=== PATIENT | male | born 1950 | race Caucasian/White ===

== ENCOUNTER 2018-03-19 10:22 | Inpatient (IN) ==
[~2018-03-19 10:22] MED LIST: Glycopyrrolate Inj 1 MG/5 ML Syringe IV.PUSH ONE; Neostigmine Inj 5 MG/5 ML Syringe IV.PUSH ONE; Phenylephrine/NS 1000 MCG/10ML Syringe IV.PUSH ONE
[2018-03-19] MEDS ORDERED: Morphine Inj 4 MG/ML Vial IV.PUSH ONE ×3 (10:38→12:35)
[2018-03-19] MEDS ORDERED: Ketorolac Inj 30 MG/ML (IVP) Vial IV.PUSH ONE (10:38)
[2018-03-19] MEDS ORDERED: Sod Chloride 0.9% Inj 1,000 ML IV.CONT SCH (10:45)
--- NOTE | 2018-03-19 10:46 | ED ---
HPI General Chief Complaint: Abdominal Pain Stated Complaint: abd pain Time Seen by Provider: 03/19/18 10:23 Source: patient Mode of arrival: EMS Limitations: no limitations History of Present Illness HPI narrative: The patient is a 67-year-old male who presents to the emergency department via EMS for nausea, vomiting, and abdominal pain. The patient was awakened at 6 AM with left-sided flank pain and left mid back pain radiating to the left lower quadrant. The patient then developed nausea and vomiting secondary to the pain. The patient denies any hematuria, dysuria, frequency, or dark colored urine. The pain is described as sharp, stabbing, starting in left flank and radiating to the left lower quadrant. The patient denies any history of nephrolithiasis or diverticulitis, does have a previous history of gastric bypass. The patient denies any fever, chills, or sweats. Symptoms are moderate to severe, there are no current alleviating factors, and there are no known exacerbating factors. MD complaint: Reports abdominal pain Onset (ago): hour(s) Pain Consistency: constant Location: Reports L flank Severity: severe Severity scale (1-10): 10 Quality: Reports stabbing and sharp Radiation: Reports LLQ Migration to: Reports LLQ Relieving factors: nothing Exacerbating factors: nothing Associated symptoms: Reports nausea and vomiting Related Data Home Medications Medication Instructions Recorded Confirmed atorvastatin 20 mg PO DAILY 03/19/18 03/19/18 liraglutide [Victoza 2-Sonido] 0.6 mg SUBCUT DAILY 03/19/18 03/19/18 metformin 1,000 mg PO BID 03/19/18 03/19/18 omeprazole-sodium bicarbonate 1 cap PO DAILY 03/19/18 03/19/18 pantoprazole 20 mg PO DAILY 03/19/18 03/19/18 Allergies Allergy/AdvReac Type Severity Reaction Status Date / Time No Known Allergies Allergy Verified 03/19/18 10:28 Review of Systems ROS: all other systems reviewed are negative [facility] Medical History Medical History Diabetes (Acute) GERD (gastroesophageal reflux disease) (Acute) Hypercholesteremia (Acute) Surgical History Surgical History H/O gastric bypass (Acute) Social History Social History Substance History: No History of Abuse Smoking Status: Former smoker How Often Do You Have a Drink Containing Alcohol: Never Recent Travel in [facility] within the Last 8 Weeks: No Recent Out of Country Travel within the Last 8 Weeks: No Immunization History Tetanus Immunization: Unsure Exam Narrative Exam Narrative: GENERAL: Awake, alert, 67-year-old male appears his stated age and appears in moderate discomfort. SKIN: Focused skin assessment warm/dry. HEAD: Atraumatic. Normocephalic. EYES: Pupils equal and round. No scleral icterus. No injection or drainage. ENT: No nasal bleeding or discharge. Mucous membranes pink and moist. NECK: Trachea midline. No JVD. CARDIOVASCULAR: Regular rate and rhythm. No murmur appreciated. RESPIRATORY: No accessory muscle use. Clear to auscultation. Breath sounds equal bilaterally. GASTROINTESTINAL: Abdomen soft, tender to palpation left lower quadrant. Back: No CVA tenderness. MUSCULOSKELETAL: No obvious deformities. No clubbing. No cyanosis. No edema. NEUROLOGICAL: Awake and alert. No obvious cranial nerve deficits. Motor grossly within normal limits. Normal speech. PSYCHIATRIC: Appropriate mood and affect; insight and judgment normal. Course Initial Documented Vital Signs Temperature 98.7 F 03/19/18 10:35 Pulse Rate 90 03/19/18 10:35 Respiratory Rate 26 H 03/19/18 10:35 Blood Pressure 131/66 03/19/18 10:35 Pulse Oximetry 97 03/19/18 10:35 Last Documented Vital Signs Temperature 99.1 F 03/19/18 15:56 Pulse Rate 124 H 03/19/18 15:44 Respiratory Rate 14 03/19/18 15:44 Blood Pressure 138/77 03/19/18 15:44 Pulse Oximetry 92 L 03/19/18 15:44 Medical Decision Making [facility] Narrative Medical decision making narrative: a third dose of morphine.IV was established , labs are drawn and sent, and the patient was placed on cardiac telemetry monitoring and continuous pulse oximetry monitoring. The patient was administered morphine, Toradol, Zofran, and IV fluids. UA was sent to lab. Noncontrast CT of the abdomen and pelvis was ordered to evaluate for nephrolithiasis versus diverticulitis. The patient's white count was mildly elevated at 13.6, lactic acid was normal at 2.0. Glucose was mildly elevated at 218. CT of the abdomen and pelvis reveals concentric thickening of the distal colon concerning for possible mass, no acute inflammation. No kidney stone noted. The patient had already received 2 doses of morphine, was reevaluated at 12:37 PM, still had mild discomfort. Therefore, the patient was administered no UA have been collected, the patient was requested to provide a UA sample for analysis. The UA reveals protein, but no evidence of infection. The patient was reevaluated after the third dose of morphine, still had some tachycardia with a heart rate of 110-115. No obvious explanation of the patient 's abdominal pain, he is tachycardic with a heart rate of 110-115, the patient CT of the abdomen and pelvis reveals narrowing of the lumen suspicious for carcinoma, this raises the possibility of possible pulmonary embolism. Therefore, CT pulmonary angiogram was ordered. CT pulmonary angiogram was negative. The patient's pulse elevated to the 120s, O2 sat was 92%. No evidence of pneumonia on CT pulmonary angiogram, UA is negative, reevaluation of the temperature was 99.1. The patient's O2 sat was 92% he was placed on O2 via nasal cannula. Blood culture, repeat lactic acid, and BNP were ordered. The patient was covered with cefepime 2 g intravenously, patient does have Sirs criteria now with elevated white count and elevated heart rate, blood cultures are pending. I discussed the patient with Dr. Barnes who agrees with admission. Repeat EKG did reveal sinus tachycardia with a heart rate of 120, Q waves noted in lead II, III, and aVF. Medical Screen Exam Complete: Yes Emergency Medical Condition: Yes Differential Diagnosis Differential Diagnosis: Differential diagnosis includes nephrolithiasis, hydronephrosis, diverticulitis, pyelonephritis, pancreatitis, perforated viscus , lower lobe pneumonia, inferior IA. Lab Data Result diagrams: 03/19/18 10:49 03/19/18 10:49 Lab Results 03/19/18 03/19/18 03/19/18 Range/Units 10:49 10:49 10:49 WBC 13.6 H (4.0-11.0) th/mm3 RBC 4.14 L (4.50-5.90) mil/mm3 Hgb 12.2 L (13.0-17.0) gm/dL Hct 37.0 L (39.0-51.0) % MCV 89.2 (80.0-100.0) fL MCH 29.5 (27.0-34.0) pg MCHC 33.1 (32.0-36.0) % RDW 15.1 (11.6-17.2) % Plt Count 201 (150-450) th/mm3 MPV 10.7 (7.0-11.0) fL Neut % (Auto) 77.4 H (16.0-70.0) % Lymph % (Auto) 13.6 (9.0-44.0) % Lewis % (Auto) 7.9 (0.0-8.0) % Eos % (Auto) 0.5 (0.0-4.0) % Baso % (Auto) 0.6 (0.0-2.0) % Neut # (Auto) 10.5 H (1.8-7.7) th/mm3 Lymph # (Auto) 1.9 (1.0-4.8) th/mm3 Lewis # (Auto) 1.1 H (0.0-0.9) th/mm3 Eos # (Auto) 0.1 (0.0-0.4) th/mm3 Baso # (Auto) 0.1 (0.0-0.2) th/mm3 WBC Differential . Differential Comment Auto diff final Sodium 141 (136-145) meq/L Potassium 4.4 (3.5-5.1) meq/L Chloride 106 (98-107) meq/L Carbon Dioxide 25.6 (21.0-32.0) meq/L Anion Gap 9 (5-15) meq/L BUN 14 (7-18) mg/dL Creatinine 0.82 (0.60-1.30) mg/dL Estimated GFR Greater than 89 (>89) mL/min Random Glucose 218 H (74-106) mg/dL Lactic Acid 2.0 (0.4-2.0) mmol/L Calcium 8.6 (8.5-10.1) mg/dL Magnesium 1.6 (1.5-2.5) mg/dL Total Bilirubin 1.0 (0.2-1.0) mg/dL AST 19 (15-37) U/L ALT 27 (12-78) U/L Alkaline Phosphatase 80 (45-117) U/L Total Creatine Kinase 54 (39-308) U/L Troponin I Less than 0.02 L (0.02-0.05) ng/mL Total Protein 7.6 (6.4-8.2) g/dL Albumin 3.3 L (3.4-5.0) g/dL Lipase 77 (73-393) U/L Urine Color (Yellw/Straw) Urine Clarity (Clear) Urine pH (5.0-8.5) Ur Specific [place] (1.002-1.035) Urine Protein (Neg-Trace) mg/dL Urine Glucose (UA) (Negative) mg/dL Urine Ketones (Negative) mg/dL Urine Occult Blood (Negative) Urine Nitrate (Negative) Urine Bilirubin (Negative) Urine Urobilinogen (Less than 2) mg/dL Ur Leukocyte Esterase (Negative) Urine WBC (0-5) /hpf Ur Squamous Epith Cells (0-5) /hpf Urine Mucus (Occasional) /lpf Micro UA Comment Ur Microscopic Review Urine Culture Comments 03/19/18 Range/Units 12:50 WBC (4.0-11.0) th/mm3 RBC (4.50-5.90) mil/mm3 Hgb (13.0-17.0) gm/dL Hct (39.0-51.0) % MCV (80.0-100.0) fL MCH (27.0-34.0) pg MCHC (32.0-36.0) % RDW (11.6-17.2) % Plt Count (150-450) th/mm3 MPV (7.0-11.0) fL Neut % (Auto) (16.0-70.0) % Lymph % (Auto) (9.0-44.0) % Lewis % (Auto) (0.0-8.0) % Eos % (Auto) (0.0-4.0) % Baso % (Auto) (0.0-2.0) % Neut # (Auto) (1.8-7.7) th/mm3 Lymph # (Auto) (1.0-4.8) th/mm3 Lewis # (Auto) (0.0-0.9) th/mm3 Eos # (Auto) (0.0-0.4) th/mm3 Baso # (Auto) (0.0-0.2) th/mm3 WBC Differential Differential Comment Sodium (136-145) meq/L Potassium (3.5-5.1) meq/L Chloride (98-107) meq/L Carbon Dioxide (21.0-32.0) meq/L Anion Gap (5-15) meq/L BUN (7-18) mg/dL Creatinine (0.60-1.30) mg/dL Estimated GFR (>89) mL/min Random Glucose (74-106) mg/dL Lactic Acid (0.4-2.0) mmol/L Calcium (8.5-10.1) mg/dL Magnesium (1.5-2.5) mg/dL Total Bilirubin (0.2-1.0) mg/dL AST (15-37) U/L ALT (12-78) U/L Alkaline Phosphatase (45-117) U/L Total Creatine Kinase (39-308) U/L Troponin I (0.02-0.05) ng/mL Total Protein (6.4-8.2) g/dL Albumin (3.4-5.0) g/dL Lipase (73-393) U/L Urine Color Yellow (Yellw/Straw) Urine Clarity Clear (Clear) Urine pH 5.0 (5.0-8.5) Ur Specific [place] 1.026 (1.002-1.035) Urine Protein Negative (Neg-Trace) mg/dL Urine Glucose (UA) 150 H (Negative) mg/dL Urine Ketones 20 (Negative) mg/dL Urine Occult Blood Negative (Negative) Urine Nitrate Negative (Negative) Urine Bilirubin Negative (Negative) Urine Urobilinogen 4 or greater (Less than 2) mg/dL Ur Leukocyte Esterase Negative (Negative) Urine WBC Less than 1 (0-5) /hpf Ur Squamous Epith Cells <1 (0-5) /hpf Urine Mucus Few H (Occasional) /lpf Micro UA Comment Culture not ind Ur Microscopic Review Not Reportable Urine Culture Comments Culture not ind Imaging Data Radiologist's impression: Abdomen/Pelvis CT 03/19/18 10:38 CONCLUSION: 1. Short segmental concentric wall thickening is identified in the distal descending colon. Colon malignancy needs to be excluded. 2. Calcified gallstones with moderate distention of the gallbladder. 3. No other significant abnormality. Chest CTA 03/19/18 13:37 CONCLUSION: 1. No evidence of acute pulmonary embolism. 2. Mild subpleural airspace disease and reticulations which may be chronic. 3. No evidence of segmental or lobar lung consolidation. ECG Data EKG Prior to Arrival: No Attestation: I personally reviewed and interpreted this ECG as follows: Interpretation: EKG reveals normal sinus rhythm with a rate 82. Q waves noted in lead III and aVF. Discharge Plan Discharge Disposition Patient Disposition: 30 Still Patient Discharge Condition Condition: Stable Discharge Details Diagnosis: SIRS (systemic inflammatory response syndrome), Intractable abdominal pain Physicians Team ED Provider: Jese Espinal Primary Care Provider: Eusebio Chacko Rxs /Orders / Referrals /Forms Prescriptions: No Action atorvastatin 20 mg Tablet 20 mg PO DAILY RF: 0 pantoprazole 20 mg Tablet,Delayed Release (Dr/Ec) 20 mg PO DAILY RF: 0 metformin 1,000 mg Tablet 1,000 mg PO BID RF: 0 omeprazole-sodium bicarbonate 40-1.1 mg-gram Capsule 1 cap PO DAILY RF: 0 liraglutide [Victoza 2-Sonido] 0.6 mg/0.1 mL (18 mg/3 mL) Pen Injector 0.6 mg SUBCUT DAILY RF: 0 Discharge Interventions Interventions: Vital Signs Last Done: 03/19/18 15:56 Status ED Status: Pending Admission
[2018-03-19 11:04] LABS: Baso # (Auto) 0.1 th/mm3 (0.0-0.2); Baso % (Auto) 0.6 % (0.0-2.0); Eos # (Auto) 0.1 th/mm3 (0.0-0.4); Eos % (Auto) 0.5 % (0.0-4.0); Hemoglobin 12.2 gm/dL (13.0-17.0); Lymph # (Auto) 1.9 th/mm3 (1.0-4.8); Lymph % (Auto) 13.6 % (9.0-44.0); Mean Corpuscular HGB Conc 33.1 % (32.0-36.0); Mean Corpuscular Hemoglobin 29.5 pg (27.0-34.0); Mean Corpuscular Volume 89.2 fL (80.0-100.0); Mean Platelet Volume 10.7 fL (7.0-11.0); Mono # (Auto) 1.1 th/mm3 (0.0-0.9); Mono % (Auto) 7.9 % (0.0-8.0); Neut # (Auto) 10.5 th/mm3 (1.8-7.7); Neut % (Auto) 77.4 % (16.0-70.0); Platelet Count 201 th/mm3 (150-450); Red Blood Count 4.14 mil/mm3 (4.50-5.90); Red Cell Distribution Width 15.1 % (11.6-17.2); White Blood Count 13.6 th/mm3 (4.0-11.0)
[2018-03-19 11:21] LABS: Alanine Aminotransferase 27 U/L (12-78); Albumin 3.3 g/dL (3.4-5.0); Anion Gap 9 meq/L (5-15); Aspartate Aminotransferase 19 U/L (15-37); Blood Urea Nitrogen 14 mg/dL (7-18); Calcium 8.6 mg/dL (8.5-10.1); Carbon Dioxide 25.6 meq/L (21.0-32.0); Chloride 106 meq/L (98-107); Glomerular Filtration Rate Greater Than 89 mL/min (>89); Glucose,Random 218 mg/dL (74-106); Lipase 77 U/L (73-393); Magnesium 1.6 mg/dL (1.5-2.5); Potassium 4.4 meq/L (3.5-5.1); Sodium 141 meq/L (136-145)
[2018-03-19 11:26] LABS: Alkaline Phosphatase 80 U/L (45-117); Total Protein 7.6 g/dL (6.4-8.2)
[2018-03-19 11:30] LABS: Creatine Kinase 54 U/L (39-308)
--- NOTE | 2018-03-19 12:14 | CT ---
EXAM DATE: 03/19/2018 12:02 PM EST AGE/SEX: 67 years / Male INDICATIONS: Left flank pain today. CLINICAL DATA: This is the patient's initial encounter. Patient reports that signs and symptoms have been present for 1 day and indicates a pain score of 8/10. MEDICAL/SURGICAL HISTORY: Diabetes. Gastroesophageal reflux disease. Gastric bypass. RADIATION DOSE: 28.83 CTDI (mGy) ; Patient body habitus COMPARISON: No prior exams available for comparison. TECHNIQUE: Multiple contiguous axial images were obtained through the abdomen. Images were obtained using multiple row detector helical technique. Using automated exposure control and adjustment of the mA and/or kV according to patient size, radiation dose was kept as low as reasonably achievable to o btain optimal diagnostic quality images. DICOM format image data is available electronically for rev iew and comparison. FINDINGS: Lower Lungs: The visualized lower lungs are clear. Liver: The liver has a homogeneous density without space-occupying lesion. There is no dilation of th e biliary tree. Calcified gallstones are identified in the dependent within the gallbladder which is moderately distended. Spleen: Homogeneous density without enlargement. Pancreas: Unremarkable without mass or calcification. Kidneys: Normal in size and shape. No evidence of mass or hydronephrosis. Adrenal Glands: Unremarkable. Aorta: The aorta and proximal iliac vessels are grossly unremarkable without aneurysmal dilation. Bowel/Mesentery: Lobulated concentric wall thickening is identified in the distal descending colon. The bowel loops are otherwise grossly unremarkable. Surgical changes following gastric bypass are not ed. There are no abnormal extragastric or extraintestinal fluid collections. There is no evidence of active inflammation. Abdominal Wall: Intact. Retroperitoneum: No evidence of adenopathy in the retrocrural, para-aortic, or deep pelvic regions. Bladder: Contours are smooth. Reproductive Organs: No abnormal masses or calcifications seen. Inguinal: The inguinal region is unremarkable without evidence of adenopathy. Bony Structures: Unremarkable. CONCLUSION: 1. Short segmental concentric wall thickening is identified in the distal descending colon. Colon ma lignancy needs to be excluded. 2. Calcified gallstones with moderate distention of the gallbladder. 3. No other significant abnormality. Electronically signed by: Jesus Rogers MD 03/19/2018 12:13 PM EST
[2018-03-19] MEDS ORDERED: Sodium Chlor 0.9% Inj 500 ML IV.SIG SCH (13:00)
[2018-03-19 13:14] LABS: Bilirubin,Urine Negative (Negative); Clarity,Urine Clear (Clear); Color,Urine Yellow (Yellw/Straw); Glucose,Urine (UA) 150 mg/dL (Negative); Leukocyte Esterase,Urine Negative (Negative); Mucus,Urine Few /lpf (Occasional); Nitrite,Urine Negative (Negative); Specific Gravity,Urine 1.026 (1.002-1.035); Squamous Epithelial Cell,Urine <1 /hpf (0-5); Urobilinogen,Urine 4 or Greater mg/dL (Less than 2)
--- NOTE | 2018-03-19 15:26 | CT ---
EXAM DATE: 03/19/2018 3:12 PM EST AGE/SEX: 67 years / Male INDICATIONS: Embolism, Left lower chest pain CLINICAL DATA: This is the patient's initial encounter. Patient reports that signs and symptoms have been present for 1 day and indicates a pain score of 7/10. MEDICAL/SURGICAL HISTORY: Gastroesophageal reflux disease. Diabetes. Gastric bypass. RADIATION DOSE: 23.09 CTDI (mGy) COMPARISON: No prior exams available for comparison. TECHNIQUE: Volumetric scanning was performed using a multi-row detector CT scanner during bolus infu lisa of 74ML ml Omnipaque 350 (iohexol) nonionic water-soluble contrast as a single exam dose. The d tracey was post processed with a variety of visualization algorithms including full volume maximum inten sity projection and sliding thin slab reformation. Using automated exposure control and adjustment of the mA and/or kV according to patient size, radiation dose was kept as low as reasonably achievable to obtain optimal diagnostic quality images. DICOM format image data is available electronically for review and comparison. FINDINGS: Pulmonary Arteries: No filling defects are seen in the pulmonary arteries out to the subsegmental ve ssels. The left and right pulmonary arteries are normal in diameter. Lung: Subpleural airspace disease and reticulation is seen in both lower lobes. There is no evidence of consolidating airspace disease. Effusion: None. Mediastinum: No evidence of mediastinal or hilar adenopathy. Other: The axilla is unremarkable. CONCLUSION: 1. No evidence of acute pulmonary embolism. 2. Mild subpleural airspace disease and reticulations which may be chronic. 3. No evidence of segmental or lobar lung consolidation. Electronically signed by: Jesus Rogers MD 03/19/2018 3:25 PM EST
--- NOTE | 2018-03-19 15:51 | P.HP ---
History of Present Illness Primary Care Physician: Eusebio Chacko MD Chief Complaint: Abdominal Pain History of Present Illness: This is a pleasant 67 y/o Male who was brought in to Emergency Department via EMS for nausea, vomiting, and abdominal pain. The patient was awakened at 6 AM with left-sided flank pain and left mid back pain radiating to the left lower quadrant. The patient then developed nausea and vomiting secondary to the pain. The patient denies any hematuria, dysuria, frequency, or dark colored urine. The pain is described as sharp, stabbing, starting in left flank and radiating to the left lower quadrant. The patient denies any history of nephrolithiasis or diverticulitis, does have a previous history of gastric bypass. The patient denies any fever, chills, or sweats. Symptoms are moderate to severe, there are no current alleviating factors, and there are no known exacerbating factors.as constant pain, 10/10 in intensity stabbing and sharp sensation, on LLQ, non radiated. he has DM II, GERD, Hyperlipidemia. Discussed with ER physician face to face Doctor Jese Espinal appreciated input and recommendations the patient has probable Sepsis has Tachycardia, Leukocytosis and probable focus in his large bowel. he continue with Pain, will cover with Cefepime and Flagyl and follow with GI specialist, following blood cultures. Review of Systems All other systems reviewed negative except as stated in HPI PMFSH - History History Provided By: Patient - Medical History Medical History: Medical History (Last Updated 03/19/18 @ 10:34 by Noy Mathis) Diabetes GERD (gastroesophageal reflux disease) Hypercholesteremia - Surgical History Surgical History: Surgical History (Last Updated 03/19/18 @ 10:34 by Noy Mathis) H/O gastric bypass - Tobacco History Smoking Status: Former smoker - Alcohol History How Often Do You Have a Drink Containing Alcohol: Never - Substance Use History Substance History: No History of Abuse - Travel History Recent Travel in the [place] Within the Last 8 Weeks: No Recent Travel Out of the Country Within the Last 8 Weeks: No - Immunization History Tetanus Immunization: Unsure Medications and Allergies Active Medications: Active Medications Sodium Chloride (Ns Inj) 1,000 mls @ 125 mls/hr IV.CONT .Q8H THOMAS Stop: 03/19/18 18:44 Last Infusion: 03/19/18 14:08 Dose: Infused Sodium Chloride (Ns Flush) 2 ml IV.FLUSH PRN PRN PRN Reason: FLUSH AFTER USING IV ACCESS Allergies Allergy/AdvReac Type Severity Reaction Status Date / Time No Known Allergies Allergy Verified 03/19/18 10:28 Home Medications Medication Instructions Recorded Confirmed Type atorvastatin 20 mg PO DAILY 03/19/18 03/19/18 History liraglutide [Victoza 2-Sonido] 0.6 mg SUBCUT DAILY 03/19/18 03/19/18 History metformin 1,000 mg PO BID 03/19/18 03/19/18 History omeprazole-sodium bicarbonate 1 cap PO DAILY 03/19/18 03/19/18 History pantoprazole 20 mg PO DAILY 03/19/18 03/19/18 History Exam Vital signs: Vital Signs 03/19/18 10:35 03/19/18 11:30 03/19/18 12:12 Temperature 98.7 F Pulse Rate 90 84 Respiratory Rate 26 H 12 12 Blood Pressure 131/66 121/61 Pulse Oximetry 97 95 03/19/18 13:00 03/19/18 13:17 Temperature Pulse Rate 108 H Respiratory Rate 22 12 Blood Pressure 159/79 H Pulse Oximetry 99 Intake & Output 03/18/18 03/19/18 03/19/18 19:59 06:59 18:59 Intake Total 1500 / 1500 Balance 1500 / 1500 Intake: IV 1500 / 1500 NS Inj 1,000 ML @ 125 mls/hr IV 1000 / 1000 .CONT .Q8H THOMAS Rx#:[id number] NS Inj 500 ML @ 1000 mls/hr IV. 500 / 500 SIG [facility]US [facility] Rx#:[id number] Narrative: GENERAL: Awake, alert, moderate distress secondary to abdominal pain. SKIN: warm/dry. HEAD: Atraumatic. Normocephalic. EYES: Pupils equal and round. No scleral icterus. No injection or drainage. ENT: No nasal bleeding or discharge. Mucous membranes pink and moist. NECK: Trachea midline. No JVD. CARDIOVASCULAR: Regular rate and rhythm. No murmur appreciated. tachycardia. RESPIRATORY: No accessory muscle use. Clear to auscultation. Breath sounds equal bilaterally. GASTROINTESTINAL: Abdomen soft, tender to palpation left lower quadrant. Back: No CVA tenderness. MUSCULOSKELETAL: No obvious deformities. No clubbing. No cyanosis. No edema. NEUROLOGICAL: Awake and alert. No obvious cranial nerve deficits. Motor grossly within normal limits. Normal speech. PSYCHIATRIC: Appropriate mood and affect; insight and judgment normal. Results - Labs CBC & Chem 7: 03/19/18 10:49 03/19/18 10:49 Labs: Laboratory Results - last 24 hr 03/19/18 03/19/18 03/19/18 10:49 10:49 10:49 WBC 13.6 H RBC 4.14 L Hgb 12.2 L Hct 37.0 L MCV 89.2 MCH 29.5 MCHC 33.1 RDW 15.1 Plt Count 201 MPV 10.7 Neut % (Auto) 77.4 H Lymph % (Auto) 13.6 [place] % (Auto) 7.9 Eos % (Auto) 0.5 Baso % (Auto) 0.6 Neut # (Auto) 10.5 H Lymph # (Auto) 1.9 [place] # (Auto) 1.1 H Eos # (Auto) 0.1 Baso # (Auto) 0.1 WBC Differential . Differential Comment Auto diff final Sodium 141 Potassium 4.4 Chloride 106 Carbon Dioxide 25.6 Anion Gap 9 BUN 14 Creatinine 0.82 Estimated GFR Greater than 89 Random Glucose 218 H Lactic Acid 2.0 Calcium 8.6 Magnesium 1.6 Total Bilirubin 1.0 AST 19 ALT 27 Alkaline Phosphatase 80 Total Creatine Kinase 54 Troponin I Less than 0.02 L Total Protein 7.6 Albumin 3.3 L Lipase 77 Urine Color Urine Clarity Urine pH Ur Specific [place] Urine Protein Urine Glucose (UA) Urine Ketones Urine Occult Blood Urine Nitrate Urine Bilirubin Urine Urobilinogen Ur Leukocyte Esterase Urine WBC Ur Squamous Epith Cells Urine Mucus Micro UA Comment Ur Microscopic Review Urine Culture Comments 03/19/18 12:50 WBC RBC Hgb Hct MCV MCH MCHC RDW Plt Count MPV Neut % (Auto) Lymph % (Auto) [place] % (Auto) Eos % (Auto) Baso % (Auto) Neut # (Auto) Lymph # (Auto) [place] # (Auto) Eos # (Auto) Baso # (Auto) WBC Differential Differential Comment Sodium Potassium Chloride Carbon Dioxide Anion Gap BUN Creatinine Estimated GFR Random Glucose Lactic Acid Calcium Magnesium Total Bilirubin AST ALT Alkaline Phosphatase Total Creatine Kinase Troponin I Total Protein Albumin Lipase Urine Color Yellow Urine Clarity Clear Urine pH 5.0 Ur Specific [place] 1.026 Urine Protein Negative Urine Glucose (UA) 150 H Urine Ketones 20 Urine Occult Blood Negative Urine Nitrate Negative Urine Bilirubin Negative Urine Urobilinogen 4 or greater Ur Leukocyte Esterase Negative Urine WBC Less than 1 Ur Squamous Epith Cells <1 Urine Mucus Few H Micro UA Comment Culture not ind Ur Microscopic Review Not Reportable Urine Culture Comments Culture not ind - Imaging Impressions Abdomen/Pelvis CT 03/19/18 10:38 CONCLUSION: 1. Short segmental concentric wall thickening is identified in the distal descending colon. Colon malignancy needs to be excluded. 2. Calcified gallstones with moderate distention of the gallbladder. 3. No other significant abnormality. Chest CTA 03/19/18 13:37 CONCLUSION: 1. No evidence of acute pulmonary embolism. 2. Mild subpleural airspace disease and reticulations which may be chronic. 3. No evidence of segmental or lobar lung consolidation. Caprini VTE Risk Assessment Caprini VTE Risk Assessment: Moderate/High Risk (score >= 2) Caprini Risk Assessment Model: Point Value = 1 Point Value = 2 Point Value = 3 Point Value = 5 Age 41-60 Minor surgery BMI > 25 kg/m2 Swollen legs Varicose veins or History of unexplained or recurrent spontaneous Oral contraceptives or hormone replacement Sepsis (< 1 month) Serious lung disease, including pneumonia (< 1 month) Abnormal pulmonary function Acute myocardial infarction Congestive heart failure (< 1 month) History of inflammatory bowel disease Medical patient at bed rest Age 61-74 Arthroscopic surgery Major open surgery (> 45 min) Laparoscopic surgery (> 45 min) Malignancy Confined to bed (> 72 hours) Immobilizing plaster cast Central venous access Age >= 75 History of VTE Family history of VTE Factor V Leiden Prothrombin [id number] Lupus anticoagulant Anticardiolipin antibodies Elevated serum homocysteine Heparin-induced thrombocytopenia Other congenital or acquired thrombophilia Stroke (< 1 month) Elective arthroplasty Hip, pelvis, or leg fracture Acute spinal cord injury (< 1 month) Prophylaxis Regimen: Total Risk Factor Score Risk Level Prophylaxis Regimen 0-1 Low Early ambulation 2 Moderate Order ONE of the following: *Sequential Compression Device (SCD) *Heparin 5000 units SQ BID 3-4 Higher Order ONE of the following medications: *Heparin 5000 units SQ TID *Enoxaparin/Lovenox 40 mg SQ daily (WT < 150 kg, CrCl > 30 mL/min) *Enoxaparin/Lovenox 30 mg SQ daily (WT < 150 kg, CrCl > 10-29 mL/min) *Enoxaparin/Lovenox 30 mg SQ BID (WT < 150 kg, CrCl > 30 mL/min) AND/OR *Sequential Compression Device (SCD) 5 or more Highest Order ONE of the following medications: *Heparin 5000 units SQ TID (Preferred with Epidurals) *Enoxaparin/Lovenox 40 mg SQ daily (WT < 150 kg, CrCl > 30 mL/min) *Enoxaparin/Lovenox 30 mg SQ daily (WT < 150 kg, CrCl > 10-29 mL/min) *Enoxaparin/Lovenox 30 mg SQ BID (WT < 150 kg, CrCl > 30 mL/min) AND *Sequential Compression Device (SCD) Assessment and Plan - Plan 1. Intractable Abdominal pain continue cardiac telemetry monitoring and continuous pulse oximetry monitoring. white count was mildly elevated at 13.6, lactic acid was normal at 2.0. Glucose was mildly elevated at 218. CT of the abdomen and pelvis reveals Short segmental concentric wall thickening is identified in the distal descending colon. Colon malignancy needs to be excluded. no acute inflammation. continue tachycardic was started on antibiotics in ER, for empiric coverage with Cefepime asked for GI specialist consult. ECG sinus tachycardia. started on Cefepime and Flagyl. 2. Hyperlipidemia continue Home medicines. 3. SIRS at this time has tachycardia and leukocytosis, 4. DM II on hold home medicines continue sliding scale for now. 5. GERD on PPIs. PPI DVT prophylaxis with Lovenox. consult GI specialist following blood cultures complete laboratory TSH, Lipid profile, hemoglobin A1C, PT and INR. PT evaluation and Composition Floor Layer consult. Code Status: Full code. Discussed Condition With: Patient and ER physician Dr. Jese Espinal, Nurse Miss Osawld in the room. Discharge Planning: Expected in two to three days.
[2018-03-19] MEDS ORDERED: Acetaminophen 325 MG Tablet PO PRN (16:02)
[2018-03-19] MEDS ORDERED: Dextrose 50% in Water 50 ML Vial IV.PUSH PRN (16:51)
[2018-03-19] MEDS ORDERED: Enoxaparin Inj 40 MG/0.4 ML Syringe SQ SCH (17:00)
[2018-03-19 18:18] LABS: Troponin I 1.72 ng/mL (0.02-0.05)
[2018-03-19 18:35] LABS: Chol/HDL Ratio 1.93 Ratio; HDL Cholesterol 53.7 mg/dL (40.0-60.0); Thyroid Stimulating Hormone 0.863 uIU/mL (0.358-3.740)
[2018-03-19] MEDS: Insulin NovoLOG Aspart Correctional Sugar Inj SQ SCH ×2 (19:55→21:24)
[2018-03-19] MEDS ORDERED: Influenza (Quadrivalent) Vaccine 0.5 ML Syringe IM ONE (21:00)
[2018-03-19] MEDS: Senna/Docusate Sodium 8.6/50 MG Tablet PO SCH (21:23)
[2018-03-19 21:42] LABS: INR 1.2 Ratio
--- NOTE | 2018-03-19 22:29 | ECG ---
Date Performed: 03/19/2018 Time Performed: 10:45:35 PTAGE: 67 years EKG: Sinus rhythm POSSIBLE INFERIOR MYOCARDIAL INFARCTION BORDERLINE ECG NO PREVIOUS TRACING DOCTOR: Bernardino Pérez Interpretating Date/Time 03/19/2018 22:27:58
[2018-03-19] MEDS ORDERED: Heparin Drip 25,000 UNIT/250 ML BAG IV.CONT PRN (22:58)
[2018-03-19 23:10] LABS: Troponin I 14.3 ng/mL (0.02-0.05)
[2018-03-19] MEDS ORDERED: Heparin 10,000 UNITS/10 ML Vial (for IV use) IV.PUSH STA (23:13)
[2018-03-19 23:27] LABS: CKMB Percent 7.2 % (0.0-4.0)
[2018-03-20] MEDS ORDERED: Morphine Inj 4 MG/ML Vial IV.PUSH ONE (00:10)
[2018-03-20] MEDS ORDERED: Sodium Chloride 0.9% 2 ML Flush PRN IV.FLUSH (00:12)
[2018-03-20 00:25] LABS: Activated Partial Thrombo Time 30.2 sec (23.4-31.7); INR 1.2 Ratio; Prothrombin Time 12.3 sec (9.8-11.6)
[2018-03-20] MEDS ORDERED: Magnesium Sulfate Inj 2 GM in Sodium Chlor 0.9% Inj 96 ML IV.SIG ONE (02:00)
[2018-03-20 04:22] LABS: Baso # (Auto) 0.1 th/mm3 (0.0-0.2); Baso % (Auto) 0.4 % (0.0-2.0); Hematocrit 38.2 % (39.0-51.0); Hemoglobin 12.6 gm/dL (13.0-17.0); Lymph # (Auto) 1.3 th/mm3 (1.0-4.8); Lymph % (Auto) 6.1 % (9.0-44.0); Mean Corpuscular HGB Conc 33.1 % (32.0-36.0); Mean Corpuscular Volume 87.6 fL (80.0-100.0); Mean Platelet Volume 10.4 fL (7.0-11.0); Mono # (Auto) 1.7 th/mm3 (0.0-0.9); Neut # (Auto) 17.9 th/mm3 (1.8-7.7); Neut % (Auto) 85.5 % (16.0-70.0); Platelet Count 186 th/mm3 (150-450); Red Blood Count 4.36 mil/mm3 (4.50-5.90); Red Cell Distribution Width 14.6 % (11.6-17.2); White Blood Count 20.9 th/mm3 (4.0-11.0)
[2018-03-20] MEDS: Insulin NovoLOG Aspart Correctional Sugar Inj SQ SCH ×5 (04:39→20:40)
[2018-03-20 04:46] LABS: Calcium 8.3 mg/dL (8.5-10.1); Carbon Dioxide 24.9 meq/L (21.0-32.0)
[2018-03-20] MEDS ORDERED: Heparin 10,000 UNITS/10 ML Vial (for IV use) IV.PUSH PRN ×2 (04:58→04:59)
[2018-03-20] MEDS: Morphine Sulfate Inj 2 MG/ML Vial IV.PUSH PRN ×5 (08:57→23:30)
[2018-03-20] MEDS: Senna/Docusate Sodium 8.6/50 MG Tablet PO SCH ×2 (09:18→20:16)
[2018-03-20] MEDS: Sodium Chloride 0.9% 2 ML Flush BID IV.FLUSH SCH ×2 (09:18→20:16)
--- NOTE | 2018-03-20 11:07 | P.CONGI ---
History of Present Illness Consult date: 03/20/18 Consult reason: Suspected colon mass Colitis Chief complaint: SIRS, Intractable pain, left flank pain History of Present Illness: Mr. Bridges is a 67-year-old male patient who presented to the emergency room on 03/19/2018 with complaints of nausea, vomiting and abdominal pain. Past medical history includes diabetes type 2, GERD and hyperlipidemia. Patient also endorses history of chronic lower back pain and arthritis. Patient states onset of pain 03/19/2018 at 0600. He reports pain as being located in the left lower quadrant of his abdomen associated with accompanied nausea and vomiting of clear emesis. Patient describes pain as sharp rated at 10 out of 10 and states it did not radiate to and any other location. Patient denied fever, and denied any aggravating or alleviating factors. Patient states last EGD/colonoscopy was done in 2006 prior to gastric bypass surgery. Patient states he has lost a total of 257 pounds since having the surgery. Patient reports that there were no abnormal findings and there was recommendation to repeat exam in 10 years. Patient denies use of alcohol or tobacco products. Patient does endorse family history of gastric cancer-he states his brother of gastric cancer at the age of 3838 years old. Patient denies any noted bleeding in stool or emesis. Patient denies any difficulty swallowing or painful swallowing. Denies any unintended weight loss. States bowel movements every 1-2 days with no reported constipation or diarrhea. CT done on admission reveals thickening of the distal descending colon and our service has been consulted to evaluate patient for suspected colon mass/colitis. <Michelle Wood - Last Filed: 03/20/18 15:22> Review of Systems All other systems reviewed negative except as stated in HPI <Michelle Wood - Last Filed: 03/20/18 15:22> PMFSH - History History Provided By: Patient - Medical History Medical History: Medical History (Last Reviewed 03/20/18 @ 08:34 by Raffaele Myers) Diabetes GERD (gastroesophageal reflux disease) Hypercholesteremia - Surgical History Surgical History: Surgical History (Last Reviewed 03/20/18 @ 08:34 by Raffaele Myers) H/O gastric bypass - Tobacco History Second Hand Smoke Exposure: Yes Tobacco Use In Past 30 Days: No Smoking Status: Former smoker - Alcohol History How Often Do You Have a Drink Containing Alcohol: Never - Substance Use History Substance History: No History of Abuse - Travel History Recent Travel in the [place] Within the Last 8 Weeks: No Recent Travel Out of the Country Within the Last 8 Weeks: No - Immunization History Tetanus Immunization: Unsure Hx Influenza Vaccine This Season: No <Michelle Wood - Last Filed: 03/20/18 15:22> - Medical History Medical History: Medical History (Last Reviewed 03/20/18 @ 08:34 by Raffaele Myers) Diabetes GERD (gastroesophageal reflux disease) Hypercholesteremia - Surgical History Surgical History: Surgical History (Last Reviewed 03/20/18 @ 08:34 by Raffaele Myers) H/O gastric bypass <Kimmie Calvo - Last Filed: 03/20/18 18:17> Medications and Allergies Active Medications: Active Medications Acetaminophen (Tylenol) 650 mg PO Q4H PRN PRN Reason: Temp > 100.4 Al Hydroxide/Mg Hydroxide (Milk Of Magnsofia Liq) 30 ml PO Q12H PRN PRN Reason: Mild Constipation Bisacodyl (Dulcolax Supp) 10 mg RECTAL DAILY PRN PRN Reason: SEVERE CONSITIPATION Dextrose (D50w Vial) 50 ml IV.PUSH UNSCH PRN PRN Reason: PER HYPOGLYCEMIA PROTOCOL Glucagon (Glucagon Inj) 1 mg OTHER PRN PRN PRN Reason: for Hypoglycemia Protocol Heparin Sodium (Porcine) (Heparin Inj) 2,500 units IV.PUSH UNSCH PRN PRN Reason: aPTT 25-39 Heparin Sodium (Porcine) (Heparin Inj) 5,000 units IV.PUSH UNSCH PRN PRN Reason: aPTT < 25 Lactated Ringer's (Lr 1000 Ml Inj) 1,000 mls @ 100 mls/hr IV.CONT .Q10H [facility] Last Admin: 03/20/18 04:42 Dose: 100 mls/hr Metronidazole/Sodium Chloride (Flagyl 500 Mg Inj) 100 mls @ 100 mls/hr IV.SIG Q8H [facility] Last Infusion: 03/20/18 10:20 Dose: Infused Heparin Sodium/Dextrose (Heparin/D5w 25,000 U/250 Ml) 25,000 unit in 250 mls @ 10 mls/hr IV.CONT TITRATE PRN; Protocol PRN Reason: Per Protocol Last Admin: 03/20/18 02:47 Dose: 1,000 units/hr, 10 mls/hr Cefepime HCl 2,000 mg/ Sodium (Chloride) 100 mls @ 200 mls/hr IV.SIG Q8H [facility] Cefepime HCl 1,000 mg/ Sodium (Chloride) 100 mls @ 200 mls/hr IV.SIG ONCE ONE Stop: 03/20/18 10:54 Insulin Aspart (Novolog Insulin Correctional Sugar Inj) 0 unit SQ 08,12,17,21, 03 [facility]; Protocol Last Admin: 03/20/18 08:54 Dose: Not Given Lactulose (Lactulose Liq) 30 ml PO DAILY PRN PRN Reason: SEVERE CONSITIPATION Morphine Sulfate (Morphine Inj) 2 mg IV.PUSH Q3H PRN PRN Reason: PAIN SCALE 6 TO 10 Last Admin: 03/20/18 08:57 Dose: 2 mg Ondansetron HCl (Zofran Inj) 4 mg IV.PUSH Q6H PRN PRN Reason: NAUSEA OR VOMITING Pantoprazole Sodium (Protonix) 40 mg PO DAILY [facility] Last Admin: 03/20/18 09:18 Dose: 40 mg Senna/Docusate Sodium (Carlotta-Colace) 1 tab PO BID [facility] Last Admin: 03/20/18 09:18 Dose: Not Given Sennosides (Senokot) 17.2 mg PO Q12H PRN PRN Reason: Moderate Constipation Sodium Chloride (Ns Flush) 2 ml IV.FLUSH BID [facility] Last Admin: 03/20/18 09:18 Dose: Not Given Sodium Chloride (Ns Flush) 2 ml IV.FLUSH PRN PRN PRN Reason: FLUSH AFTER USING IV ACCESS <Michelle Wood - Last Filed: 03/20/18 15:22> Active Medications: Active Medications Acetaminophen (Tylenol) 650 mg PO Q4H PRN PRN Reason: Temp > 100.4 Al Hydroxide/Mg Hydroxide (Milk Of Magnesia Liq) 30 ml PO Q12H PRN PRN Reason: Mild Constipation Bisacodyl (Dulcolax Supp) 10 mg RECTAL DAILY PRN PRN Reason: SEVERE CONSITIPATION Dextrose (D50w Vial) 50 ml IV.PUSH UNSCH PRN PRN Reason: PER HYPOGLYCEMIA PROTOCOL Glucagon (Glucagon Inj) 1 mg OTHER PRN PRN PRN Reason: for Hypoglycemia Protocol Lactated Ringer's (Lr 1000 Ml Inj) 1,000 mls @ 100 mls/hr IV.CONT .Q10H [facility] Last Admin: 03/20/18 15:09 Dose: 100 mls/hr Metronidazole/Sodium Chloride (Flagyl 500 Mg Inj) 100 mls @ 100 mls/hr IV.SIG Q8H [facility] Last Admin: 03/20/18 17:27 Dose: 100 mls/hr Cefepime HCl 2,000 mg/ Sodium (Chloride) 100 mls @ 200 mls/hr IV.SIG Q8H [facility] Last Infusion: 03/20/18 16:30 Dose: Infused Insulin Aspart (Novolog Insulin Correctional Sugar Inj) 0 unit SQ 08,12,17,21, 03 [facility]; Protocol Last Admin: 03/20/18 17:26 Dose: 1 unit Lactulose (Lactulose Liq) 30 ml PO DAILY PRN PRN Reason: SEVERE CONSITIPATION Morphine Sulfate (Morphine Inj) 2 mg IV.PUSH Q3H PRN PRN Reason: PAIN SCALE 6 TO 10 Last Admin: 03/20/18 16:00 Dose: 2 mg Ondansetron HCl (Zofran Inj) 4 mg IV.PUSH Q6H PRN PRN Reason: NAUSEA OR VOMITING Pantoprazole Sodium (Protonix) 40 mg PO DAILY [facility] Last Admin: 03/20/18 09:18 Dose: 40 mg Senna/Docusate Sodium (Carlotta-Colace) 1 tab PO BID [facility] Last Admin: 03/20/18 09:18 Dose: Not Given Sennosides (Senokot) 17.2 mg PO Q12H PRN PRN Reason: Moderate Constipation Sodium Chloride (Ns Flush) 2 ml IV.FLUSH BID [facility] Last Admin: 03/20/18 09:18 Dose: Not Given Sodium Chloride (Ns Flush) 2 ml IV.FLUSH PRN PRN PRN Reason: FLUSH AFTER USING IV ACCESS <Kimmie Calvo - Last Filed: 03/20/18 18:17> Allergies Allergy/AdvReac Type Severity Reaction Status Date / Time No Known Allergies Allergy Verified 03/19/18 10:28 Home Medications Medication Instructions Recorded Confirmed Type atorvastatin 20 mg PO DAILY 03/19/18 03/19/18 History liraglutide [Victoza 2-Sonido] 0.6 mg SUBCUT DAILY 03/19/18 03/19/18 History metformin 1,000 mg PO BID 03/19/18 03/19/18 History omeprazole-sodium bicarbonate 1 cap PO DAILY 03/19/18 03/19/18 History pantoprazole 20 mg PO DAILY 03/19/18 03/19/18 History Exam Vital signs: Vital Signs 03/19/18 11:30 03/19/18 12:12 03/19/18 13:00 Temperature Pulse Rate 84 108 H Respiratory Rate 12 12 22 Blood Pressure 121/61 159/79 H Pulse Oximetry 95 99 03/19/18 13:17 03/19/18 15:44 03/19/18 15:56 Temperature 99.1 F Pulse Rate 124 H Respiratory Rate 12 14 Blood Pressure 138/77 Pulse Oximetry 92 L 03/19/18 20:00 03/19/18 22:28 03/19/18 23:00 Temperature 98.4 F Pulse Rate 120 H 114 H 105 H Respiratory Rate 18 Blood Pressure 102/63 Pulse Oximetry 95 03/20/18 00:00 03/20/18 01:00 03/20/18 01:51 Temperature 97.4 F L Pulse Rate 102 H 102 H Respiratory Rate 20 16 Blood Pressure 128/58 L Pulse Oximetry 97 03/20/18 02:00 03/20/18 03:00 03/20/18 04:00 Temperature 99.1 F Pulse Rate 102 H 100 H 100 H Respiratory Rate 16 Blood Pressure 103/64 Pulse Oximetry 100 03/20/18 05:00 03/20/18 06:00 03/20/18 07:00 Temperature Pulse Rate 98 H 99 H 99 H Respiratory Rate Blood Pressure Pulse Oximetry 03/20/18 07:58 03/20/18 08:00 03/20/18 09:00 Temperature 99.2 F Pulse Rate 98 H 102 H 98 H Respiratory Rate 20 Blood Pressure 109/69 Pulse Oximetry 97 97 03/20/18 10:00 Temperature Pulse Rate 96 H Respiratory Rate Blood Pressure Pulse Oximetry Intake & Output 03/19/18 03/20/18 03/20/18 18:59 06:59 18:59 Intake Total 1700 / 1700 1400 / 1400 200 / 200 Balance 1700 / 1700 1400 / 1400 200 / 200 Weight 103.5 kg Intake: IV 1700 / 1700 1300 / 1300 200 / 200 LR 1000 mL Inj 1,000 ML @ 100 1000 / 1000 mls/hr IV.CONT .Q10H [facility] Rx#: [id number] NS Inj 1,000 ML @ 125 mls/hr IV 1000 / 1000 .CONT .Q8H [facility] Rx#:[id number] Maxipime Inj 1,000 MG In NS Inj 100 / 100 100 / 100 100 ML @ 200 mls/hr IV.SIG Q8H [facility] Rx#:[id number] Maxipime Inj 2,000 MG In NS Inj 100 / 100 100 ML @ 200 mls/hr IV.SIG ONCE ONE Rx#:[id number] Magnesium Sulfate Inj 2 GM In 100 / 100 NS Inj 96 ML @ 50 mls/hr IV.SIG ONCE ONE Rx#:[id number] NS Inj 500 ML @ 1000 mls/hr IV. 500 / 500 SIG BOLUS [facility] Rx#:[id number] Flagyl 500 MG Inj 100 ML @ 100 100 / 100 100 / 100 100 / 100 mls/hr IV.SIG Q8H [facility] Rx#: [id number] Oral 100 / 100 Other: Date of Last Bowel Movement 03/20/18 03/20/18 # Bowel Movements 1 Weight On Admission 104.1 kg - Constitutional mild distress - Routine HEENT Exam Head: Present: normocephalic - Routine Respiratory Exam Present: CTA bilaterally. Absent: accessory muscle use - Routine Abdominal Exam Present: soft, normoactive bowel sounds. Absent: tenderness, distended, guarding, firm Comments: Patient reports right lower quadrant abdominal pain without tenderness on palpation during exam - Routine Extremities Exam Present: edema, pulses intact Comments: +1 lower extremity edema bilateral, no pitting - Routine Skin Exam Present: dry, warm - Routine Neurological Exam Present: alert, oriented X3 <Wood,Michelle - Last Filed: 03/20/18 15:22> Vital signs: Vital Signs 03/19/18 20:00 03/19/18 22:28 03/19/18 23:00 Temperature 98.4 F Pulse Rate 120 H 114 H 105 H Respiratory Rate 18 Blood Pressure 102/63 Pulse Oximetry 95 03/20/18 00:00 03/20/18 01:00 03/20/18 01:51 Temperature 97.4 F L Pulse Rate 102 H 102 H Respiratory Rate 20 16 Blood Pressure 128/58 L Pulse Oximetry 97 03/20/18 02:00 03/20/18 03:00 03/20/18 04:00 Temperature 99.1 F Pulse Rate 102 H 100 H 100 H Respiratory Rate 16 Blood Pressure 103/64 Pulse Oximetry 100 03/20/18 05:00 03/20/18 06:00 03/20/18 07:00 Temperature Pulse Rate 98 H 99 H 99 H Respiratory Rate Blood Pressure Pulse Oximetry 03/20/18 07:58 03/20/18 08:00 03/20/18 09:00 Temperature 99.2 F Pulse Rate 98 H 102 H 98 H Respiratory Rate 20 Blood Pressure 109/69 Pulse Oximetry 97 97 03/20/18 10:00 03/20/18 11:00 03/20/18 12:00 Temperature 98.8 F Pulse Rate 96 H 98 H 100 H Respiratory Rate 18 Blood Pressure 99/77 L Pulse Oximetry 97 03/20/18 13:00 03/20/18 14:00 03/20/18 15:00 Temperature Pulse Rate 100 H 104 H 104 H Respiratory Rate Blood Pressure Pulse Oximetry 03/20/18 15:58 03/20/18 16:00 03/20/18 17:00 Temperature 97.6 F Pulse Rate 100 H 98 H 102 H Respiratory Rate 18 Blood Pressure 104/59 L Pulse Oximetry 96 Intake & Output 03/19/18 03/20/18 03/20/18 18:59 06:59 18:59 Intake Total 1700 / 1700 1400 / 1400 1525 / 1525 Balance 1700 / 1700 1400 / 1400 1525 / 1525 Weight 103.5 kg Intake: IV 1700 / 1700 1300 / 1300 1525 / 1525 Heparin/D5W 25,000 U/250 mL 25, 125 / 125 000 unit In 250 ml @ 1,000 UNITS/HR 10 mls/hr IV.CONT TITRATE PRN Rx#:[id number] LR 1000 mL Inj 1,000 ML @ 100 1000 / 1000 1000 / 1000 mls/hr IV.CONT .Q10H [facility] Rx#: [id number] NS Inj 1,000 ML @ 125 mls/hr IV 1000 / 1000 .CONT .Q8H [facility] Rx#:[id number] Maxipime Inj 1,000 MG In NS Inj 100 / 100 200 / 200 100 ML @ 200 mls/hr IV.SIG ONCE ONE Rx#:[id number] Maxipime Inj 2,000 MG In NS Inj 100 / 100 100 / 100 100 ML @ 200 mls/hr IV.SIG Q8H [facility] Rx#:[id number] Magnesium Sulfate Inj 2 GM In 100 / 100 NS Inj 96 ML @ 50 mls/hr IV.SIG ONCE ONE Rx#:[id number] NS Inj 500 ML @ 1000 mls/hr IV. 500 / 500 SIG BOLUS [facility] Rx#:[id number] Flagyl 500 MG Inj 100 ML @ 100 100 / 100 100 / 100 100 / 100 mls/hr IV.SIG Q8H [facility] Rx#: [id number] Oral 100 / 100 Other: Date of Last Bowel Movement 03/20/18 03/20/18 # Bowel Movements 1 Weight On Admission 104.1 kg <Kimmie Calvo - Last Filed: 03/20/18 18:17> Results - Labs CBC & Chem 7: 03/20/18 04:06 03/20/18 04:06 Labs: Laboratory Results - last 24 hr 03/19/18 03/19/18 03/19/18 10:49 10:49 10:49 WBC 13.6 H RBC 4.14 L Hgb 12.2 L Hct 37.0 L MCV 89.2 MCH 29.5 MCHC 33.1 RDW 15.1 Plt Count 201 MPV 10.7 Neut % (Auto) 77.4 H Lymph % (Auto) 13.6 [place] % (Auto) 7.9 Eos % (Auto) 0.5 Baso % (Auto) 0.6 Neut # (Auto) 10.5 H Lymph # (Auto) 1.9 [place] # (Auto) 1.1 H Eos # (Auto) 0.1 Baso # (Auto) 0.1 WBC Differential . Differential Comment Auto diff final PT INR APTT Sodium 141 Potassium 4.4 Chloride 106 Carbon Dioxide 25.6 Anion Gap 9 BUN 14 Creatinine 0.82 Estimated GFR Greater than 89 POC Glucose Random Glucose 218 H Lactic Acid 2.0 Calcium 8.6 Magnesium 1.6 Total Bilirubin 1.0 AST 19 ALT 27 Alkaline Phosphatase 80 Total Creatine Kinase 54 CK-MB (CK-2) CK-MB (CK-2) % Troponin I Less than 0.02 L B-Natriuretic Peptide Total Protein 7.6 Albumin 3.3 L Triglycerides Cholesterol LDL Cholesterol, Calc HDL Cholesterol Cholesterol/HDL Ratio Lipase 77 TSH Urine Color Urine Clarity Urine pH Ur Specific [place] Urine Protein Urine Glucose (UA) Urine Ketones Urine Occult Blood Urine Nitrate Urine Bilirubin Urine Urobilinogen Ur Leukocyte Esterase Urine WBC Ur Squamous Epith Cells Urine Mucus Micro UA Comment Ur Microscopic Review Urine Culture Comments 03/19/18 03/19/18 03/19/18 10:49 12:50 15:53 WBC RBC Hgb Hct MCV MCH MCHC RDW Plt Count MPV Neut % (Auto) Lymph % (Auto) [place] % (Auto) Eos % (Auto) Baso % (Auto) Neut # (Auto) Lymph # (Auto) [place] # (Auto) Eos # (Auto) Baso # (Auto) WBC Differential Differential Comment PT INR APTT Sodium Potassium Chloride Carbon Dioxide Anion Gap BUN Creatinine Estimated GFR POC Glucose Random Glucose Lactic Acid Calcium Magnesium Total Bilirubin AST ALT Alkaline Phosphatase Total Creatine Kinase CK-MB (CK-2) CK-MB (CK-2) % Troponin I B-Natriuretic Peptide 60 Total Protein Albumin Triglycerides 59 Cholesterol 104 L LDL Cholesterol, Calc 39 HDL Cholesterol 53.7 Cholesterol/HDL Ratio 1.93 Lipase TSH 0.863 Urine Color Yellow Urine Clarity Clear Urine pH 5.0 Ur Specific [place] 1.026 Urine Protein Negative Urine Glucose (UA) 150 H Urine Ketones 20 Urine Occult Blood Negative Urine Nitrate Negative Urine Bilirubin Negative Urine Urobilinogen 4 or greater Ur Leukocyte Esterase Negative Urine WBC Less than 1 Ur Squamous Epith Cells <1 Urine Mucus Few H Micro UA Comment Culture not ind Ur Microscopic Review Not Reportable Urine Culture Comments Culture not ind 03/19/18 03/19/18 03/19/18 16:17 17:04 20:36 WBC RBC Hgb Hct MCV MCH MCHC RDW Plt Count MPV Neut % (Auto) Lymph % (Auto) [place] % (Auto) Eos % (Auto) Baso % (Auto) Neut # (Auto) Lymph # (Auto) [place] # (Auto) Eos # (Auto) Baso # (Auto) WBC Differential Differential Comment PT 12.0 H INR 1.2 APTT Sodium Potassium Chloride Carbon Dioxide Anion Gap BUN Creatinine Estimated GFR POC Glucose Random Glucose Lactic Acid 2.1 H Calcium Magnesium Total Bilirubin AST ALT Alkaline Phosphatase Total Creatine Kinase 112 CK-MB (CK-2) CK-MB (CK-2) % Troponin I 1.72 H* B-Natriuretic Peptide Total Protein Albumin Triglycerides Cholesterol LDL Cholesterol, Calc HDL Cholesterol Cholesterol/HDL Ratio Lipase TSH Urine Color Urine Clarity Urine pH Ur Specific [place] Urine Protein Urine Glucose (UA) Urine Ketones Urine Occult Blood Urine Nitrate Urine Bilirubin Urine Urobilinogen Ur Leukocyte Esterase Urine WBC Ur Squamous Epith Cells Urine Mucus Micro UA Comment Ur Microscopic Review Urine Culture Comments 03/19/18 03/19/18 03/19/18 21:16 22:19 22:19 WBC RBC Hgb Hct MCV MCH MCHC RDW Plt Count MPV Neut % (Auto) Lymph % (Auto) [place] % (Auto) Eos % (Auto) Baso % (Auto) Neut # (Auto) Lymph # (Auto) [place] # (Auto) Eos # (Auto) Baso # (Auto) WBC Differential Differential Comment PT INR APTT Sodium Potassium Chloride Carbon Dioxide Anion Gap BUN Creatinine Estimated GFR POC Glucose 232 H Random Glucose Lactic Acid Calcium Magnesium 1.4 L Total Bilirubin AST ALT Alkaline Phosphatase Total Creatine Kinase 415 H CK-MB (CK-2) 30.0 H CK-MB (CK-2) % 7.2 H* Troponin I 14.30 H* B-Natriuretic Peptide Total Protein Albumin Triglycerides Cholesterol LDL Cholesterol, Calc HDL Cholesterol Cholesterol/HDL Ratio Lipase TSH Urine Color Urine Clarity Urine pH Ur Specific [place] Urine Protein Urine Glucose (UA) Urine Ketones Urine Occult Blood Urine Nitrate Urine Bilirubin Urine Urobilinogen Ur Leukocyte Esterase Urine WBC Ur Squamous Epith Cells Urine Mucus Micro UA Comment Ur Microscopic Review Urine Culture Comments 03/20/18 03/20/18 03/20/18 00:02 02:15 04:06 WBC 20.9 H D RBC 4.36 L Hgb 12.6 L Hct 38.2 L MCV 87.6 MCH 29.0 MCHC 33.1 RDW 14.6 Plt Count 186 MPV 10.4 Neut % (Auto) 85.5 H Lymph % (Auto) 6.1 L [place] % (Auto) 8.0 Eos % (Auto) 0.0 Baso % (Auto) 0.4 Neut # (Auto) 17.9 H Lymph # (Auto) 1.3 [place] # (Auto) 1.7 H Eos # (Auto) 0.0 Baso # (Auto) 0.1 WBC Differential . Differential Comment Auto diff final PT 12.3 H INR 1.2 APTT 30.2 Sodium Potassium Chloride Carbon Dioxide Anion Gap BUN Creatinine Estimated GFR POC Glucose Random Glucose Lactic Acid 1.6 Calcium Magnesium Total Bilirubin AST ALT Alkaline Phosphatase Total Creatine Kinase CK-MB (CK-2) CK-MB (CK-2) % Troponin I B-Natriuretic Peptide Total Protein Albumin Triglycerides Cholesterol LDL Cholesterol, Calc HDL Cholesterol Cholesterol/HDL Ratio Lipase TSH Urine Color Urine Clarity Urine pH Ur Specific [place] Urine Protein Urine Glucose (UA) Urine Ketones Urine Occult Blood Urine Nitrate Urine Bilirubin Urine Urobilinogen Ur Leukocyte Esterase Urine WBC Ur Squamous Epith Cells Urine Mucus Micro UA Comment Ur Microscopic Review Urine Culture Comments 03/20/18 03/20/18 03/20/18 04:06 04:06 04:29 WBC RBC Hgb Hct MCV MCH MCHC RDW Plt Count MPV Neut % (Auto) Lymph % (Auto) [place] % (Auto) Eos % (Auto) Baso % (Auto) Neut # (Auto) Lymph # (Auto) [place] # (Auto) Eos # (Auto) Baso # (Auto) WBC Differential Differential Comment PT INR APTT 45.3 H D Sodium 139 Potassium 4.0 Chloride 106 Carbon Dioxide 24.9 Anion Gap 8 BUN 18 Creatinine 0.94 Estimated GFR 80 L POC Glucose 215 H Random Glucose 229 H Lactic Acid Calcium 8.3 L Magnesium Total Bilirubin AST ALT Alkaline Phosphatase Total Creatine Kinase CK-MB (CK-2) CK-MB (CK-2) % Troponin I B-Natriuretic Peptide Total Protein Albumin Triglycerides Cholesterol LDL Cholesterol, Calc HDL Cholesterol Cholesterol/HDL Ratio Lipase TSH Urine Color Urine Clarity Urine pH Ur Specific [place] Urine Protein Urine Glucose (UA) Urine Ketones Urine Occult Blood Urine Nitrate Urine Bilirubin Urine Urobilinogen Ur Leukocyte Esterase Urine WBC Ur Squamous Epith Cells Urine Mucus Micro UA Comment Ur Microscopic Review Urine Culture Comments 03/20/18 03/20/18 08:45 10:09 WBC RBC Hgb Hct MCV MCH MCHC RDW Plt Count MPV Neut % (Auto) Lymph % (Auto) [place] % (Auto) Eos % (Auto) Baso % (Auto) Neut # (Auto) Lymph # (Auto) [place] # (Auto) Eos # (Auto) Baso # (Auto) WBC Differential Differential Comment PT INR APTT 36.1 H D Sodium Potassium Chloride Carbon Dioxide Anion Gap BUN Creatinine Estimated GFR POC Glucose 137 H Random Glucose Lactic Acid Calcium Magnesium Total Bilirubin AST ALT Alkaline Phosphatase Total Creatine Kinase CK-MB (CK-2) CK-MB (CK-2) % Troponin I B-Natriuretic Peptide Total Protein Albumin Triglycerides Cholesterol LDL Cholesterol, Calc HDL Cholesterol Cholesterol/HDL Ratio Lipase TSH Urine Color Urine Clarity Urine pH Ur Specific [place] Urine Protein Urine Glucose (UA) Urine Ketones Urine Occult Blood Urine Nitrate Urine Bilirubin Urine Urobilinogen Ur Leukocyte Esterase Urine WBC Ur Squamous Epith Cells Urine Mucus Micro UA Comment Ur Microscopic Review Urine Culture Comments - Imaging Impressions Abdomen/Pelvis CT 03/19/18 10:38 CONCLUSION: 1. Short segmental concentric wall thickening is identified in the distal descending colon. Colon malignancy needs to be excluded. 2. Calcified gallstones with moderate distention of the gallbladder. 3. No other significant abnormality. Chest CTA 03/19/18 13:37 CONCLUSION: 1. No evidence of acute pulmonary embolism. 2. Mild subpleural airspace disease and reticulations which may be chronic. 3. No evidence of segmental or lobar lung consolidation. <Michelle Wood - Last Filed: 03/20/18 15:22> - Labs CBC & Chem 7: 03/20/18 04:06 03/20/18 04:06 Labs: Laboratory Results - last 24 hr 03/19/18 03/19/18 03/19/18 10:49 17:04 20:36 WBC RBC Hgb Hct MCV MCH MCHC RDW Plt Count MPV Neut % (Auto) Lymph % (Auto) [place] % (Auto) Eos % (Auto) Baso % (Auto) Neut # (Auto) Lymph # (Auto) [place] # (Auto) Eos # (Auto) Baso # (Auto) WBC Differential Differential Comment PT 12.0 H INR 1.2 APTT Sodium Potassium Chloride Carbon Dioxide Anion Gap BUN Creatinine Estimated GFR POC Glucose Random Glucose Lactic Acid Calcium Magnesium Total Creatine Kinase 112 CK-MB (CK-2) CK-MB (CK-2) % Troponin I 1.72 H* Triglycerides 59 Cholesterol 104 L LDL Cholesterol, Calc 39 HDL Cholesterol 53.7 Cholesterol/HDL Ratio 1.93 TSH 0.863 03/19/18 03/19/18 03/19/18 21:16 22:19 22:19 WBC RBC Hgb Hct MCV MCH MCHC RDW Plt Count MPV Neut % (Auto) Lymph % (Auto) [place] % (Auto) Eos % (Auto) Baso % (Auto) Neut # (Auto) Lymph # (Auto) [place] # (Auto) Eos # (Auto) Baso # (Auto) WBC Differential Differential Comment PT INR APTT Sodium Potassium Chloride Carbon Dioxide Anion Gap BUN Creatinine Estimated GFR POC Glucose 232 H Random Glucose Lactic Acid Calcium Magnesium 1.4 L Total Creatine Kinase 415 H CK-MB (CK-2) 30.0 H CK-MB (CK-2) % 7.2 H* Troponin I 14.30 H* Triglycerides Cholesterol LDL Cholesterol, Calc HDL Cholesterol Cholesterol/HDL Ratio [facility] 03/20/18 03/20/18 03/20/18 00:02 02:15 04:06 WBC 20.9 H D RBC 4.36 L Hgb 12.6 L Hct 38.2 L MCV 87.6 MCH 29.0 MCHC 33.1 RDW 14.6 Plt Count 186 MPV 10.4 Neut % (Auto) 85.5 H Lymph % (Auto) 6.1 L [place] % (Auto) 8.0 Eos % (Auto) 0.0 Baso % (Auto) 0.4 Neut # (Auto) 17.9 H Lymph # (Auto) 1.3 [place] # (Auto) 1.7 H Eos # (Auto) 0.0 Baso # (Auto) 0.1 WBC Differential . Differential Comment Auto diff final PT 12.3 H INR 1.2 APTT 30.2 Sodium Potassium Chloride Carbon Dioxide Anion Gap BUN Creatinine Estimated GFR POC Glucose Random Glucose Lactic Acid 1.6 Calcium Magnesium Total Creatine Kinase CK-MB (CK-2) CK-MB (CK-2) % Troponin I Triglycerides Cholesterol LDL Cholesterol, Calc HDL Cholesterol Cholesterol/HDL Ratio TSH 03/20/18 03/20/18 03/20/18 04:06 04:06 04:29 WBC RBC Hgb Hct MCV MCH MCHC RDW Plt Count MPV Neut % (Auto) Lymph % (Auto) [place] % (Auto) Eos % (Auto) Baso % (Auto) Neut # (Auto) Lymph # (Auto) [place] # (Auto) Eos # (Auto) Baso # (Auto) WBC Differential Differential Comment PT INR APTT 45.3 H D Sodium 139 Potassium 4.0 Chloride 106 Carbon Dioxide 24.9 Anion Gap 8 BUN 18 Creatinine 0.94 Estimated GFR 80 L POC Glucose 215 H Random Glucose 229 H Lactic Acid Calcium 8.3 L Magnesium Total Creatine Kinase CK-MB (CK-2) CK-MB (CK-2) % Troponin I Triglycerides Cholesterol LDL Cholesterol, Calc HDL Cholesterol Cholesterol/HDL Ratio [facility] 03/20/18 03/20/18 03/20/18 08:45 10:09 10:09 WBC RBC Hgb Hct MCV MCH MCHC RDW Plt Count MPV Neut % (Auto) Lymph % (Auto) [place] % (Auto) Eos % (Auto) Baso % (Auto) Neut # (Auto) Lymph # (Auto) [place] # (Auto) Eos # (Auto) Baso # (Auto) WBC Differential Differential Comment PT INR APTT 36.1 H D Sodium Potassium Chloride Carbon Dioxide Anion Gap BUN Creatinine Estimated GFR POC Glucose 137 H Random Glucose Lactic Acid Calcium Magnesium 1.8 Total Creatine Kinase CK-MB (CK-2) CK-MB (CK-2) % Troponin I Triglycerides Cholesterol LDL Cholesterol, Calc HDL Cholesterol Cholesterol/HDL Ratio TSH 03/20/18 03/20/18 12:08 16:43 WBC RBC Hgb Hct MCV MCH MCHC RDW Plt Count MPV Neut % (Auto) Lymph % (Auto) [place] % (Auto) Eos % (Auto) Baso % (Auto) Neut # (Auto) Lymph # (Auto) [place] # (Auto) Eos # (Auto) Baso # (Auto) WBC Differential Differential Comment PT INR APTT Sodium Potassium Chloride Carbon Dioxide Anion Gap BUN Creatinine Estimated GFR POC Glucose 170 H 199 H Random Glucose Lactic Acid Calcium Magnesium Total Creatine Kinase CK-MB (CK-2) CK-MB (CK-2) % Troponin I Triglycerides Cholesterol LDL Cholesterol, Calc HDL Cholesterol Cholesterol/HDL Ratio TSH <Kimmie Calvo - Last Filed: 03/20/18 18:17> Assessment and Plan (1) Intractable abdominal pain Status: Acute Code(s): R10.9 - Unspecified abdominal pain - Plan Mr. Bridges is a 67-year-old male patient who presented to the emergency room on 03/19/2018 with complaints of nausea, vomiting and abdominal pain. Past medical history includes diabetes type 2, GERD and hyperlipidemia. Patient also endorses history of chronic lower back pain and arthritis. Patient states onset of pain 03/19/2018 at 0600. He reports pain as being located in the left lower quadrant of his abdomen associated with accompanied nausea and vomiting of clear emesis. Patient describes pain as sharp rated at 10 out of 10 and states it did not radiate to and any other location. Patient denied fever, and denied any aggravating or alleviating factors. Patient states last EGD/colonoscopy was done in 2006 prior to gastric bypass surgery. Patient states he has lost a total of 257 pounds since having the surgery. Patient reports that there were no abnormal findings and there was recommendation to repeat exam in 10 years. Patient denies use of alcohol or tobacco products. Patient does endorse family history of gastric cancer-he states his brother of gastric cancer at the age of 3838 years old. Patient denies any noted bleeding in stool or emesis. Patient denies any difficulty swallowing or painful swallowing. Denies any unintended weight loss. States bowel movements every 1-2 days with no reported constipation or diarrhea. CT done on admission reveals thickening of the distal descending colon and our service has been consulted to evaluate patient for suspected colon mass/colitis Intractable abdominal pain 03/19/2018 CT abdomen and pelvis--> 1. Short segmental concentric wall thickening is identified in the distal descending colon. Colon malignancy needs to be excluded. 2. Calcified gallstones with moderate distention of the gallbladder. 3. No other significant abnormality Of note, upon consultation patient reports sharp right-sided lower abdominal pain intermittent in nature. Hemoglobin 12.6 hematocrit 38.2. WBC 20.9 low-grade temp 99.2 Fahrenheit 03/19/2018 Troponin 14.3-patient denies current chest wall pain but does report that he has had intermittent chest pain over the last month. Cardiology consult noted. Patient currently on heparin infusion. Plan -Cardiac and diabetic diet -Monitor labs-noted leukocytosis -Continue cefepime and Flagyl -Analgesic and antiemetic as per attending -Pantoprazole daily -Cardiology consult for elevated troponin-and needed clearance -Endoscopy once stable -Continue IV hydration -Supportive care -Further recommendations to follow This patient has been seen by myself and Dr. Calvo and this note is written on her behalf - Attending Attestation Dr. Calvo <Michelle Wood - Last Filed: 03/20/18 15:22> (1) Intractable abdominal pain Status: Acute Code(s): R10.9 - Unspecified abdominal pain - Attending Attestation seen, examined agree with above egd/colonsocopy once cleared by id and cardiology <Kimmie Calvo - Last Filed: 03/20/18 18:17>
--- NOTE | 2018-03-20 12:21 | P.CONID ---
History of Present Illness Service: Infectious Disease Consult date: 03/20/18 Requesting Physician: Timothy Barnes Reason for Consult: Evalaution and Mment of GNR bacteremia Primary Care Provider: Eusebio Chacko MD Chief Complaint: Abdominal Pain History of Present Illness: Mr. Bridges is a 67-year-old male patient who presented to the emergency room on March 19, 2018. Patient initially reported nausea vomiting as well as abdominal pain on admission. Of note patient's past medical history significant for gastric bypass surgery many years back. Patient also has a history of type 2 diabetes, GERD, hyperlipidemia as well as morbid obesity. Condition he reports chronic lower back pain as well as arthritis. Patient reports that his abdominal pain started in the left lower quadrant associated with nausea and vomiting of clear emesis. He reports that he was still vomiting until yesterday and vomiting has now resolved. He continues to have abdominal pain. Patient denied any fever chills or night sweats prior to admission. Patient reports that his last EGD and colonoscopy was in 2006 prior to gastric bypass surgery. Patient reports he has lost a total of 257 pounds since he has had surgery. Patient was asked to have a repeat colonoscopy in 10 years if there were no abnormal findings. He denies any use of alcohol or tobacco products recently but has used in the past. He reports that his mother had gastric cancer in his brother also had a gastric cancer at the age of 38 years. He denies any hematemesis or any black tarry stools or fresh blood in stool. Patient reports that he has a bowel movement every 1-2 days. He denies any history of constipation and diarrhea. A CT of the abdomen pelvis done on admission reveals thickening of the distal descending colon and there is a concern for colonic mass and therefore GI has been consulted. Due to elevated troponins cardiology has also been called and there is a plan for KELLY and possibly a cardiac cath in the future. Blood cultures drawn and admission are positive for gram-negative rods and infectious diseases consulted for evaluation and management of the same. Review of Systems All other systems reviewed negative except as stated in HPI PMFSH - History History Provided By: Patient - Medical History Medical History: Medical History (Last Reviewed 03/20/18 @ 08:34 by Raffaele Myers) Diabetes GERD (gastroesophageal reflux disease) Hypercholesteremia - Surgical History Surgical History: Surgical History (Last Reviewed 03/20/18 @ 08:34 by Raffaele Esqueda H/O gastric bypass - Tobacco History Second Hand Smoke Exposure: Yes Tobacco Use In Past 30 Days: No Smoking Status: Former smoker - Alcohol History How Often Do You Have a Drink Containing Alcohol: Never - Substance Use History Substance History: No History of Abuse - Travel History Recent Travel in the [place] Within the Last 8 Weeks: No Recent Travel Out of the Country Within the Last 8 Weeks: No - Immunization History Tetanus Immunization: Unsure Hx Influenza Vaccine This Season: No Medications and Allergies Active Medications: Active Medications Acetaminophen (Tylenol) 650 mg PO Q4H PRN PRN Reason: Temp > 100.4 Al Hydroxide/Mg Hydroxide (Milk Of Magnesia Liq) 30 ml PO Q12H PRN PRN Reason: Mild Constipation Bisacodyl (Dulcolax Supp) 10 mg RECTAL DAILY PRN PRN Reason: SEVERE CONSITIPATION Dextrose (D50w Vial) 50 ml IV.PUSH UNSCH PRN PRN Reason: PER HYPOGLYCEMIA PROTOCOL Glucagon (Glucagon Inj) 1 mg OTHER PRN PRN PRN Reason: for Hypoglycemia Protocol Heparin Sodium (Porcine) (Heparin Inj) 2,500 units IV.PUSH UNSCH PRN PRN Reason: aPTT 25-39 Last Admin: 03/20/18 11:32 Dose: 2,500 units Heparin Sodium (Porcine) (Heparin Inj) 5,000 units IV.PUSH UNSCH PRN PRN Reason: aPTT < 25 Lactated Ringer's (Lr 1000 Ml Inj) 1,000 mls @ 100 mls/hr IV.CONT .Q10H [facility]OMAS Last Admin: 03/20/18 04:42 Dose: 100 mls/hr Metronidazole/Sodium Chloride (Flagyl 500 Mg Inj) 100 mls @ 100 mls/hr IV.SIG Q8H [facility] Last Infusion: 03/20/18 10:20 Dose: Infused Heparin Sodium/Dextrose (Heparin/D5w 25,000 U/250 Ml) 25,000 unit in 250 mls @ 10 mls/hr IV.CONT TITRATE PRN; Protocol PRN Reason: Per Protocol Last Titration: 03/20/18 11:33 Dose: 1,100 units/hr, 11 mls/hr Cefepime HCl 2,000 mg/ Sodium (Chloride) 100 mls @ 200 mls/hr IV.SIG Q8H [facility] Insulin Aspart (Novolog Insulin Correctional Sugar Inj) 0 unit SQ 08,12,17,21, 03 [facility]; Protocol Last Admin: 03/20/18 08:54 Dose: Not Given Lactulose (Lactulose Liq) 30 ml PO DAILY PRN PRN Reason: SEVERE CONSITIPATION Morphine Sulfate (Morphine Inj) 2 mg IV.PUSH Q3H PRN PRN Reason: PAIN SCALE 6 TO 10 Last Admin: 03/20/18 08:57 Dose: 2 mg Ondansetron HCl (Zofran Inj) 4 mg IV.PUSH Q6H PRN PRN Reason: NAUSEA OR VOMITING Pantoprazole Sodium (Protonix) 40 mg PO DAILY [facility] Last Admin: 03/20/18 09:18 Dose: 40 mg Senna/Docusate Sodium (Carlotta-Colace) 1 tab PO BID [facility] Last Admin: 03/20/18 09:18 Dose: Not Given Sennosides (Senokot) 17.2 mg PO Q12H PRN PRN Reason: Moderate Constipation Sodium Chloride (Ns Flush) 2 ml IV.FLUSH BID [facility] Last Admin: 03/20/18 09:18 Dose: Not Given Sodium Chloride (Ns Flush) 2 ml IV.FLUSH PRN PRN PRN Reason: FLUSH AFTER USING IV ACCESS Allergies Allergy/AdvReac Type Severity Reaction Status Date / Time No Known Allergies Allergy Verified 03/19/18 10:28 Home Medications Medication Instructions Recorded Confirmed Type atorvastatin 20 mg PO DAILY 03/19/18 03/19/18 History liraglutide [Victoza 2-Sonido] 0.6 mg SUBCUT DAILY 03/19/18 03/19/18 History metformin 1,000 mg PO BID 03/19/18 03/19/18 History omeprazole-sodium bicarbonate 1 cap PO DAILY 03/19/18 03/19/18 History pantoprazole 20 mg PO DAILY 03/19/18 03/19/18 History Exam Vital signs: Vital Signs 03/19/18 13:00 03/19/18 13:17 03/19/18 15:44 Temperature Pulse Rate 108 H 124 H Respiratory Rate 22 12 14 Blood Pressure 159/79 H 138/77 Pulse Oximetry 99 92 L 03/19/18 15:56 03/19/18 20:00 03/19/18 22:28 Temperature 99.1 F 98.4 F Pulse Rate 120 H 114 H Respiratory Rate 18 Blood Pressure 102/63 Pulse Oximetry 95 03/19/18 23:00 03/20/18 00:00 03/20/18 01:00 Temperature 97.4 F L Pulse Rate 105 H 102 H 102 H Respiratory Rate 20 Blood Pressure 128/58 L Pulse Oximetry 97 03/20/18 01:51 03/20/18 02:00 03/20/18 03:00 Temperature Pulse Rate 102 H 100 H Respiratory Rate 16 Blood Pressure Pulse Oximetry 03/20/18 04:00 03/20/18 05:00 03/20/18 06:00 Temperature 99.1 F Pulse Rate 100 H 98 H 99 H Respiratory Rate 16 Blood Pressure 103/64 Pulse Oximetry 100 03/20/18 07:00 03/20/18 07:58 03/20/18 08:00 Temperature 99.2 F Pulse Rate 99 H 98 H 102 H Respiratory Rate 20 Blood Pressure 109/69 Pulse Oximetry 97 97 03/20/18 09:00 03/20/18 10:00 Temperature Pulse Rate 98 H 96 H Respiratory Rate Blood Pressure Pulse Oximetry Intake & Output 03/19/18 03/20/18 03/20/18 18:59 06:59 18:59 Intake Total 1700 / 1700 1400 / 1400 200 / 200 Balance 1700 / 1700 1400 / 1400 200 / 200 Weight 103.5 kg Intake: IV 1700 / 1700 1300 / 1300 200 / 200 LR 1000 mL Inj 1,000 ML @ 100 1000 / 1000 mls/hr IV.CONT .Q10H [facility]OM[facility] Rx#: [id number] NS Inj 1,000 ML @ 125 mls/hr IV 1000 / 1000 .CONT .Q8H [facility] Rx#:[id number] Maxipime Inj 1,000 MG In NS Inj 100 / 100 100 / 100 100 ML @ 200 mls/hr IV.SIG Q8H [facility] Rx#:[id number] Maxipime Inj 2,000 MG In NS Inj 100 / 100 100 ML @ 200 mls/hr IV.SIG ONCE ONE Rx#:[id number] Magnesium Sulfate Inj 2 GM In 100 / 100 NS Inj 96 ML @ 50 mls/hr IV.SIG ONCE ONE Rx#:[id number] NS Inj 500 ML @ 1000 mls/hr IV. 500 / 500 SIG BOLUS THOMAS Rx#:[id number] Flagyl 500 MG Inj 100 ML @ 100 100 / 100 100 / 100 100 / 100 mls/hr IV.SIG Q8H [facility]OM[facility] Rx#: [id number] Oral 100 / 100 Other: Date of Last Bowel Movement 03/20/18 03/20/18 # Bowel Movements 1 Weight On Admission 104.1 kg Narrative: GENERAL: Obese, well-developed, not in acute distress SKIN: Cool and dry, no generalized rash HEAD: Atraumatic. Normocephalic. No temporal or scalp tenderness. EYES: Pupils equal round and reactive. Scleral icterus. No injection or drainage. No petechia ENT: Nothing abnormal detected NECK: Trachea midline. Supple, nontender, no meningeal signs. CARDIOVASCULAR: HS audible. RESPIRATORY: Clear to auscultation bilaterally. GASTROINTESTINAL: Abdomen soft , obese, tenderness in the left upper quadrant as well as lower quadrant. Skin folds examined with no evidence of infection. MUSCULOSKELETAL: Extremities without clubbing, cyanosis. NEUROLOGICAL: Alert oriented 3. Nonfocal. Psych cooperative IV line sites ok. Results - Labs CBC & Chem 7: 03/20/18 04:06 03/20/18 04:06 Labs: Laboratory Results - last 24 hr 03/19/18 03/19/18 03/19/18 10:49 12:50 15:53 WBC RBC Hgb Hct MCV MCH MCHC RDW Plt Count MPV Neut % (Auto) Lymph % (Auto) [place] % (Auto) Eos % (Auto) Baso % (Auto) Neut # (Auto) Lymph # (Auto) [place] # (Auto) Eos # (Auto) Baso # (Auto) WBC Differential Differential Comment PT INR APTT Sodium Potassium Chloride Carbon Dioxide Anion Gap BUN Creatinine Estimated GFR POC Glucose Random Glucose Lactic Acid Calcium Magnesium Total Creatine Kinase CK-MB (CK-2) CK-MB (CK-2) % Troponin I B-Natriuretic Peptide 60 Triglycerides 59 Cholesterol 104 L LDL Cholesterol, Calc 39 HDL Cholesterol 53.7 Cholesterol/HDL Ratio 1.93 TSH 0.863 Urine Color Yellow Urine Clarity Clear Urine pH 5.0 Ur Specific [place] 1.026 Urine Protein Negative Urine Glucose (UA) 150 H Urine Ketones 20 Urine Occult Blood Negative Urine Nitrate Negative Urine Bilirubin Negative Urine Urobilinogen 4 or greater Ur Leukocyte Esterase Negative Urine WBC Less than 1 Ur Squamous Epith Cells <1 Urine Mucus Few H Micro UA Comment Culture not ind Ur Microscopic Review Not Reportable Urine Culture Comments Culture not ind 1103/19/18 03/19/18 16:17 17:04 20:36 WBC RBC Hgb Hct MCV MCH MCHC RDW Plt Count MPV Neut % (Auto) Lymph % (Auto) [place] % (Auto) Eos % (Auto) Baso % (Auto) Neut # (Auto) Lymph # (Auto) [place] # (Auto) Eos # (Auto) Baso # (Auto) WBC Differential Differential Comment PT 12.0 H INR 1.2 APTT Sodium Potassium Chloride Carbon Dioxide Anion Gap BUN Creatinine Estimated GFR POC Glucose Random Glucose Lactic Acid 2.1 H Calcium Magnesium Total Creatine Kinase 112 CK-MB (CK-2) CK-MB (CK-2) % Troponin I 1.72 H* B-Natriuretic Peptide Triglycerides Cholesterol LDL Cholesterol, Calc HDL Cholesterol Cholesterol/HDL Ratio TSH Urine Color Urine Clarity Urine pH Ur Specific [place] Urine Protein Urine Glucose (UA) Urine Ketones Urine Occult Blood Urine Nitrate Urine Bilirubin Urine Urobilinogen Ur Leukocyte Esterase Urine WBC Ur Squamous Epith Cells Urine Mucus Micro UA Comment Ur Microscopic Review Urine Culture Comments 03/19/18 03/19/18 03/19/18 21:16 22:19 22:19 WBC RBC Hgb Hct MCV MCH MCHC RDW Plt Count MPV Neut % (Auto) Lymph % (Auto) [place] % (Auto) Eos % (Auto) Baso % (Auto) Neut # (Auto) Lymph # (Auto) [place] # (Auto) Eos # (Auto) Baso # (Auto) WBC Differential Differential Comment PT INR APTT Sodium Potassium Chloride Carbon Dioxide Anion Gap BUN Creatinine Estimated GFR POC Glucose 232 H Random Glucose Lactic Acid Calcium Magnesium 1.4 L Total Creatine Kinase 415 H CK-MB (CK-2) 30.0 H CK-MB (CK-2) % 7.2 H* Troponin I 14.30 H* B-Natriuretic Peptide Triglycerides Cholesterol LDL Cholesterol, Calc HDL Cholesterol Cholesterol/HDL Ratio TSH Urine Color Urine Clarity Urine pH Ur Specific [place] Urine Protein Urine Glucose (UA) Urine Ketones Urine Occult Blood Urine Nitrate Urine Bilirubin Urine Urobilinogen Ur Leukocyte Esterase Urine WBC Ur Squamous Epith Cells Urine Mucus Micro UA Comment Ur Microscopic Review Urine Culture Comments 03/20/18 03/20/18 03/20/18 00:02 02:15 04:06 WBC 20.9 H D RBC 4.36 L Hgb 12.6 L Hct 38.2 L MCV 87.6 MCH 29.0 MCHC 33.1 RDW 14.6 Plt Count 186 MPV 10.4 Neut % (Auto) 85.5 H Lymph % (Auto) 6.1 L [place] % (Auto) 8.0 Eos % (Auto) 0.0 Baso % (Auto) 0.4 Neut # (Auto) 17.9 H Lymph # (Auto) 1.3 [place] # (Auto) 1.7 H Eos # (Auto) 0.0 Baso # (Auto) 0.1 WBC Differential . Differential Comment Auto diff final PT 12.3 H INR 1.2 APTT 30.2 Sodium Potassium Chloride Carbon Dioxide Anion Gap BUN Creatinine Estimated GFR POC Glucose Random Glucose Lactic Acid 1.6 Calcium Magnesium Total Creatine Kinase CK-MB (CK-2) CK-MB (CK-2) % Troponin I B-Natriuretic Peptide Triglycerides Cholesterol LDL Cholesterol, Calc HDL Cholesterol Cholesterol/HDL Ratio TSH Urine Color Urine Clarity Urine pH Ur Specific [place] Urine Protein Urine Glucose (UA) Urine Ketones Urine Occult Blood Urine Nitrate Urine Bilirubin Urine Urobilinogen Ur Leukocyte Esterase Urine WBC Ur Squamous Epith Cells Urine Mucus Micro UA Comment Ur Microscopic Review Urine Culture Comments 03/20/18 03/20/18 03/20/18 04:06 04:06 04:29 WBC RBC Hgb Hct MCV MCH MCHC RDW Plt Count MPV Neut % (Auto) Lymph % (Auto) [place] % (Auto) Eos % (Auto) Baso % (Auto) Neut # (Auto) Lymph # (Auto) [place] # (Auto) Eos # (Auto) Baso # (Auto) WBC Differential Differential Comment PT INR APTT 45.3 H D Sodium 139 Potassium 4.0 Chloride 106 Carbon Dioxide 24.9 Anion Gap 8 BUN 18 Creatinine 0.94 Estimated GFR 80 L POC Glucose 215 H Random Glucose 229 H Lactic Acid Calcium 8.3 L Magnesium Total Creatine Kinase CK-MB (CK-2) CK-MB (CK-2) % Troponin I B-Natriuretic Peptide Triglycerides Cholesterol LDL Cholesterol, Calc HDL Cholesterol Cholesterol/HDL Ratio TSH Urine Color Urine Clarity Urine pH Ur Specific [place] Urine Protein Urine Glucose (UA) Urine Ketones Urine Occult Blood Urine Nitrate Urine Bilirubin Urine Urobilinogen Ur Leukocyte Esterase Urine WBC Ur Squamous Epith Cells Urine Mucus Micro UA Comment Ur Microscopic Review Urine Culture Comments 03/20/18 03/20/18 03/20/18 08:45 10:09 10:09 WBC RBC Hgb Hct MCV MCH MCHC RDW Plt Count MPV Neut % (Auto) Lymph % (Auto) [place] % (Auto) Eos % (Auto) Baso % (Auto) Neut # (Auto) Lymph # (Auto) [place] # (Auto) Eos # (Auto) Baso # (Auto) WBC Differential Differential Comment PT INR APTT 36.1 H D Sodium Potassium Chloride Carbon Dioxide Anion Gap BUN Creatinine Estimated GFR POC Glucose 137 H Random Glucose Lactic Acid Calcium Magnesium 1.8 Total Creatine Kinase CK-MB (CK-2) CK-MB (CK-2) % Troponin I B-Natriuretic Peptide Triglycerides Cholesterol LDL Cholesterol, Calc HDL Cholesterol Cholesterol/HDL Ratio TSH Urine Color Urine Clarity Urine pH Ur Specific [place] Urine Protein Urine Glucose (UA) Urine Ketones Urine Occult Blood Urine Nitrate Urine Bilirubin Urine Urobilinogen Ur Leukocyte Esterase Urine WBC Ur Squamous Epith Cells Urine Mucus Micro UA Comment Ur Microscopic Review Urine Culture Comments 03/20/18 12:08 WBC RBC Hgb Hct MCV MCH MCHC RDW Plt Count MPV Neut % (Auto) Lymph % (Auto) [place] % (Auto) Eos % (Auto) Baso % (Auto) Neut # (Auto) Lymph # (Auto) [place] # (Auto) Eos # (Auto) Baso # (Auto) WBC Differential Differential Comment PT INR APTT Sodium Potassium Chloride Carbon Dioxide Anion Gap BUN Creatinine Estimated GFR POC Glucose 170 H Random Glucose Lactic Acid Calcium Magnesium Total Creatine Kinase CK-MB (CK-2) CK-MB (CK-2) % Troponin I B-Natriuretic Peptide Triglycerides Cholesterol LDL Cholesterol, Calc HDL Cholesterol Cholesterol/HDL Ratio TSH Urine Color Urine Clarity Urine pH Ur Specific [place] Urine Protein Urine Glucose (UA) Urine Ketones Urine Occult Blood Urine Nitrate Urine Bilirubin Urine Urobilinogen Ur Leukocyte Esterase Urine WBC Ur Squamous Epith Cells Urine Mucus Micro UA Comment Ur Microscopic Review Urine Culture Comments - Imaging Impressions Chest CTA 03/19/18 13:37 CONCLUSION: 1. No evidence of acute pulmonary embolism. 2. Mild subpleural airspace disease and reticulations which may be chronic. 3. No evidence of segmental or lobar lung consolidation. Assessment and Plan - Plan Sepsis present on admission Gram-negative bacteremia Enterobacter and Klebsiella pneumonia isolated so far. Leukocytosis appears to be increased today. Possible component of non-ST elevation DC related leukocytosis. Concern for GI malignancy GI on board for possible colonoscopy. Non-ST elevation DC likely secondary to sepsis cardiology on board with plan for KELLY as well as cardiac cath. Recommendations: Repeat blood cultures x2 Would not recommend doing any invasive workup such as cardiac catheter KELLY or colonoscopy at the present time. Patient is septic as well as has gram- negative bacteremia. Would recommend repeating blood cultures and if these remain negative and patient clinically improved ID will determine in the near future when patient can have these procedures. Continue cefepime IV at every 8 hours dosing until all gram negatives identified Continue Flagyl IV for now until blood cultures finalized Follow cultures If persistent bacteremia will consider KELLY. Will discuss with Dr. Pérze if KELLY needed for any other indication other than bacteremia. Follow clinical course Discussed with RN Discussed with patient Discussed with Dr. Barnes
--- NOTE | 2018-03-20 14:23 | ECHRPT ---
Indication: CARDIOMYOPATHY CONCLUSIONS The left ventricular systolic function is normal with an estimated ejection fraction in the range of 60-65%. Normal left ventricular size. Wall thickness is normal. No regional wall motion abnormalities are present. Trace mitral valve regurgitation. Aortic valve sclerosis is present. The inferior vena cava was not well visualized. BP: / HR: Rhythm: Sinus MEASUREMENTS (Male / Female) Normal Values Technical Quality:Fair 2D ECHO LV Diastolic Diameter PLAX 5.5 cm 4.2 - 5.9 / 3.9 - 5.3 cm LV Systolic Diameter PLAX 3.8 cm IVS Diastolic Thickness 1.1 cm 0.6 - 1.0 / 0.6 - 0.9 cm LVPW Diastolic Thickness 1.1 cm 0.6 - 1.0 / 0.6 - 0.9 cm LV Relative Wall Thickness 0.4 RV Internal Dim ED PLAX 3.1 cm LVOT Diameter 2.2 cm LA Systolic Diameter LX 3.9 cm 3.0 - 4.0 / 2.7 - 3.8 cm LV Ejection Fraction MOD 4C 59.3 % LV Ejection Fraction 4C AL 60.4 % M-MODE Aortic Root Diameter MM 2.6 cm LA Systolic Diameter MM 3.9 cm LA Ao Ratio MM 1.5 AV Cusp Separation MM 1.9 cm DOPPLER AV Peak Velocity 133.0 cm/s AV Peak Gradient 7.1 mmHg LVOT Peak Velocity 86.9 cm/s LVOT Peak Gradient 3.0 mmHg AV Area Cont Eq pk 2.5 cm MV Area PHT 4.2 cm Mitral E Point Velocity 76.5 cm/s Mitral A Point Velocity 101.0 cm/s Mitral E to A Ratio 0.8 LV E' Lateral Velocity 7.8 cm/s Mitral E to LV E' Lateral Ratio 9.8 LV E' Septal Velocity 3.5 cm/s Mitral E to LV E' Septal Ratio 21.8 PV Peak Velocity 114.0 cm/s PV Peak Gradient 5.2 mmHg FINDINGS LEFT VENTRICLE The left ventricular systolic function is normal with an estimated ejection fraction in the range of 60-65%. Normal left ventricular size. Wall thickness is normal. No regional wall motion abnormalities are present. RIGHT VENTRICLE Normal right ventricular size and systolic function. LEFT ATRIUM The left atrial size is normal. RIGHT ATRIUM The right atrial size is normal. ATRIAL SEPTUM Normal atrial septal thickness without atrial level shunting by limited color doppler interrogation. AORTA The aortic root and proximal ascending aorta are normal in size on limited imaging. MITRAL VALVE Structurally normal mitral valve. Trace mitral valve regurgitation. AORTIC VALVE Trileaflet aortic valve. Aortic valve sclerosis is present. TRICUSPID VALVE Structurally normal tricuspid valve. No tricuspid valve stenosis or regurgitation. PULMONARY VALVE The pulmonary valve is not well visualized. VESSELS The inferior vena cava was not well visualized. PERICARDIUM No pericardial effusion. Jose Garrison MD, FACC, [facility] (Electronically Signed) Final Date:20 March 2018 14:23
--- NOTE | 2018-03-20 16:04 | P.PN ---
Results - Labs CBC & Chem 7: 03/20/18 04:06 03/20/18 04:06
[2018-03-20 17:13] LABS: Hemoglobin A1c 6.9 % (4.3-6.0)
--- NOTE | 2018-03-20 17:38 | P.PN ---
Subjective Interval history: This is a pleasant 67 y/o Male who was brought in to Emergency Department via EMS for nausea, vomiting, and abdominal pain. The patient was awakened at 6 AM with left-sided flank pain and left mid back pain radiating to the left lower quadrant. The patient then developed nausea and vomiting secondary to the pain. The patient denies any hematuria, dysuria, frequency, or dark colored urine. The pain is described as sharp, stabbing, starting in left flank and radiating to the left lower quadrant. The patient denies any history of nephrolithiasis or diverticulitis, does have a previous history of gastric bypass. The patient denies any fever, chills, or sweats. Symptoms are moderate to severe, there are no current alleviating factors, and there are no known exacerbating factors.as constant pain, 10/10 in intensity stabbing and sharp sensation, on LLQ, non radiated. he has DM II, GERD, Hyperlipidemia. Discussed with ER physician face to face Doctor Jese Espinal appreciated input and recommendations the patient has probable Sepsis has Tachycardia, Leukocytosis and probable focus in his large bowel. he continue with Pain, will cover with Cefepime and Flagyl and follow with GI specialist, following blood cultures. 03/20: Seen by GI specialist early in am, he had EGD and Colonoscopy in 2006 previous to Gastric bypass surgery, CT abdomen and Pelvis reveals thickening of the distal descending colon and our service has been consulted to evaluate patient for suspected colon mass/colitis, recommended to continue antibiotics, PPIs, Endoscopy once stable, found early with positive blood cultures for Gram negative rods, Klebsiella pneumonia, Enterobacter species, Discussed with ID specialist doctor Catrina Sanchez, and with customer management specialist Doctor Bernardino Pérez, repeated blood cultures, recommended not to perform KELLY at this time or Colonoscopy continue Cefepime and Flagyl, follow cultures. Physical Exam Vital signs: Vital Signs 03/19/18 20:00 03/19/18 22:28 03/19/18 23:00 Temperature 98.4 F Pulse Rate 120 H 114 H 105 H Respiratory Rate 18 Blood Pressure 102/63 Pulse Oximetry 95 03/20/18 00:00 03/20/18 01:00 03/20/18 01:51 Temperature 97.4 F L Pulse Rate 102 H 102 H Respiratory Rate 20 16 Blood Pressure 128/58 L Pulse Oximetry 97 03/20/18 02:00 03/20/18 03:00 03/20/18 04:00 Temperature 99.1 F Pulse Rate 102 H 100 H 100 H Respiratory Rate 16 Blood Pressure 103/64 Pulse Oximetry 100 03/20/18 05:00 03/20/18 06:00 03/20/18 07:00 Temperature Pulse Rate 98 H 99 H 99 H Respiratory Rate Blood Pressure Pulse Oximetry 03/20/18 07:58 03/20/18 08:00 03/20/18 09:00 Temperature 99.2 F Pulse Rate 98 H 102 H 98 H Respiratory Rate 20 Blood Pressure 109/69 Pulse Oximetry 97 97 03/20/18 10:00 03/20/18 11:00 03/20/18 12:00 Temperature 98.8 F Pulse Rate 96 H 98 H 100 H Respiratory Rate 18 Blood Pressure 99/77 L Pulse Oximetry 97 03/20/18 13:00 03/20/18 14:00 03/20/18 15:00 Temperature Pulse Rate 100 H 104 H 104 H Respiratory Rate Blood Pressure Pulse Oximetry 03/20/18 15:58 03/20/18 16:00 03/20/18 17:00 Temperature 97.6 F Pulse Rate 100 H 98 H 102 H Respiratory Rate 18 Blood Pressure 104/59 L Pulse Oximetry 96 Intake & Output 03/19/18 03/20/18 03/20/18 18:59 06:59 18:59 Intake Total 1700 / 1700 1400 / 1400 1525 / 1525 Balance 1700 / 1700 1400 / 1400 1525 / 1525 Weight 103.5 kg Intake: IV 1700 / 1700 1300 / 1300 1525 / 1525 Heparin/D5W 25,000 U/250 mL 25, 125 / 125 000 unit In 250 ml @ 1,000 UNITS/HR 10 mls/hr IV.CONT TITRATE PRN Rx#:[id number] LR 1000 mL Inj 1,000 ML @ 100 1000 / 1000 1000 / 1000 mls/hr IV.CONT .Q10H [facility] Rx#: [id number] NS Inj 1,000 ML @ 125 mls/hr IV 1000 / 1000 .CONT .Q8H [facility] Rx#:[id number] Maxipime Inj 1,000 MG In NS Inj 100 / 100 200 / 200 100 ML @ 200 mls/hr IV.SIG ONCE ONE Rx#:[id number] Maxipime Inj 2,000 MG In NS Inj 100 / 100 100 / 100 100 ML @ 200 mls/hr IV.SIG Q8H [facility] Rx#:[id number] Magnesium Sulfate Inj 2 GM In 100 / 100 NS Inj 96 ML @ 50 mls/hr IV.SIG ONCE ONE Rx#:[id number] NS Inj 500 ML @ 1000 mls/hr IV. 500 / 500 SIG BOLUS [facility]OMAS Rx#:[id number] Flagyl 500 MG Inj 100 ML @ 100 100 / 100 100 / 100 100 / 100 mls/hr IV.SIG Q8H [facility] Rx#: [id number] Oral 100 / 100 Other: Date of Last Bowel Movement 03/20/18 03/20/18 # Bowel Movements 1 Weight On Admission 104.1 kg Narrative: GENERAL: Obese, well-developed, not in acute distress SKIN: Cool and dry, no generalized rash HEAD: Atraumatic. Normocephalic. No temporal or scalp tenderness. EYES: Pupils equal round and reactive. Scleral icterus. No injection or drainage. No petechia ENT: Nothing abnormal detected NECK: Trachea midline. Supple, nontender, no meningeal signs. CARDIOVASCULAR: HS audible. RESPIRATORY: Clear to auscultation bilaterally. GASTROINTESTINAL: Abdomen soft , obese, now tenderness on right flank and Right upper quadrant. MUSCULOSKELETAL: Extremities without clubbing, cyanosis. NEUROLOGICAL: Alert oriented 3. Nonfocal deficits. Results - Labs CBC & Chem 7: 03/20/18 04:06 03/20/18 04:06 Laboratory Results - last 24 hr 03/19/18 03/19/18 03/19/18 10:49 17:04 20:36 WBC RBC Hgb Hct MCV MCH MCHC RDW Plt Count MPV Neut % (Auto) Lymph % (Auto) [place] % (Auto) Eos % (Auto) Baso % (Auto) Neut # (Auto) Lymph # (Auto) [place] # (Auto) Eos # (Auto) Baso # (Auto) WBC Differential Differential Comment PT 12.0 H INR 1.2 APTT Sodium Potassium Chloride Carbon Dioxide Anion Gap BUN Creatinine Estimated GFR POC Glucose Random Glucose Lactic Acid Calcium Magnesium Total Creatine Kinase 112 CK-MB (CK-2) CK-MB (CK-2) % Troponin I 1.72 H* Triglycerides 59 Cholesterol 104 L LDL Cholesterol, Calc 39 HDL Cholesterol 53.7 Cholesterol/HDL Ratio 1.93 TSH 0.863 03/19/18 03/19/18 03/19/18 21:16 22:19 22:19 WBC RBC Hgb Hct MCV MCH MCHC RDW Plt Count MPV Neut % (Auto) Lymph % (Auto) [place] % (Auto) Eos % (Auto) Baso % (Auto) Neut # (Auto) Lymph # (Auto) [place] # (Auto) Eos # (Auto) Baso # (Auto) WBC Differential Differential Comment PT INR APTT Sodium Potassium Chloride Carbon Dioxide Anion Gap BUN Creatinine Estimated GFR POC Glucose 232 H Random Glucose Lactic Acid Calcium Magnesium 1.4 L Total Creatine Kinase 415 H CK-MB (CK-2) 30.0 H CK-MB (CK-2) % 7.2 H* Troponin I 14.30 H* Triglycerides Cholesterol LDL Cholesterol, Calc HDL Cholesterol Cholesterol/HDL Ratio TSH 03/20/18 03/20/18 03/20/18 00:02 02:15 04:06 WBC 20.9 H D RBC 4.36 L Hgb 12.6 L Hct 38.2 L MCV 87.6 MCH 29.0 MCHC 33.1 RDW 14.6 Plt Count 186 MPV 10.4 Neut % (Auto) 85.5 H Lymph % (Auto) 6.1 L [place] % (Auto) 8.0 Eos % (Auto) 0.0 Baso % (Auto) 0.4 Neut # (Auto) 17.9 H Lymph # (Auto) 1.3 [place] # (Auto) 1.7 H Eos # (Auto) 0.0 Baso # (Auto) 0.1 WBC Differential . Differential Comment Auto diff final PT 12.3 H INR 1.2 APTT 30.2 Sodium Potassium Chloride Carbon Dioxide Anion Gap BUN Creatinine Estimated GFR POC Glucose Random Glucose Lactic Acid 1.6 Calcium Magnesium Total Creatine Kinase CK-MB (CK-2) CK-MB (CK-2) % Troponin I Triglycerides Cholesterol LDL Cholesterol, Calc HDL Cholesterol Cholesterol/HDL Ratio TSH 03/20/18 03/20/18 03/20/18 04:06 04:06 04:29 WBC RBC Hgb Hct MCV MCH MCHC RDW Plt Count MPV Neut % (Auto) Lymph % (Auto) [place] % (Auto) Eos % (Auto) Baso % (Auto) Neut # (Auto) Lymph # (Auto) [place] # (Auto) Eos # (Auto) Baso # (Auto) WBC Differential Differential Comment PT INR APTT 45.3 H D Sodium 139 Potassium 4.0 Chloride 106 Carbon Dioxide 24.9 Anion Gap 8 BUN 18 Creatinine 0.94 Estimated GFR 80 L POC Glucose 215 H Random Glucose 229 H Lactic Acid Calcium 8.3 L Magnesium Total Creatine Kinase CK-MB (CK-2) CK-MB (CK-2) % Troponin I Triglycerides Cholesterol LDL Cholesterol, Calc HDL Cholesterol Cholesterol/HDL Ratio TSH 03/20/18 03/20/18 03/20/18 08:45 10:09 10:09 WBC RBC Hgb Hct MCV MCH MCHC RDW Plt Count MPV Neut % (Auto) Lymph % (Auto) [place] % (Auto) Eos % (Auto) Baso % (Auto) Neut # (Auto) Lymph # (Auto) [place] # (Auto) Eos # (Auto) Baso # (Auto) WBC Differential Differential Comment PT INR APTT 36.1 H D Sodium Potassium Chloride Carbon Dioxide Anion Gap BUN Creatinine Estimated GFR POC Glucose 137 H Random Glucose Lactic Acid Calcium Magnesium 1.8 Total Creatine Kinase CK-MB (CK-2) CK-MB (CK-2) % Troponin I Triglycerides Cholesterol LDL Cholesterol, Calc HDL Cholesterol Cholesterol/HDL Ratio TSH 03/20/18 03/20/18 12:08 16:43 WBC RBC Hgb Hct MCV MCH MCHC RDW Plt Count MPV Neut % (Auto) Lymph % (Auto) [place] % (Auto) Eos % (Auto) Baso % (Auto) Neut # (Auto) Lymph # (Auto) [place] # (Auto) Eos # (Auto) Baso # (Auto) WBC Differential Differential Comment PT INR APTT Sodium Potassium Chloride Carbon Dioxide Anion Gap BUN Creatinine Estimated GFR POC Glucose 170 H 199 H Random Glucose Lactic Acid Calcium Magnesium Total Creatine Kinase CK-MB (CK-2) CK-MB (CK-2) % Troponin I Triglycerides Cholesterol LDL Cholesterol, Calc HDL Cholesterol Cholesterol/HDL Ratio TSH Microbiology 03/19/18 15:45 Blood - Peripheral Aerobic Blood Culture - Preliminary Enterobacter species Klebsiella pneumoniae 03/19/18 15:45 Blood - Peripheral Anaerobic Blood Culture - Preliminary gram negative rods 03/19/18 15:50 Blood - Peripheral Aerobic Blood Culture - Preliminary gram negative rods 03/19/18 15:50 Blood - Peripheral Anaerobic Blood Culture - Preliminary No growth in 1 day 03/19/18 16:15 Nasal Wash Influenza Types A,B Antigen - Final Negative for FLU A and B antigen Infection due to influenza A or B cannot be ruled out since the antigen present in the sample may be below the detection limit of the test. - Imaging Abdomen/Pelvis CT 03/19/18 10:38 CONCLUSION: 1. Short segmental concentric wall thickening is identified in the distal descending colon. Colon malignancy needs to be excluded. 2. Calcified gallstones with moderate distention of the gallbladder. 3. No other significant abnormality. Chest CTA 03/19/18 13:37 CONCLUSION: 1. No evidence of acute pulmonary embolism. 2. Mild subpleural airspace disease and reticulations which may be chronic. 3. No evidence of segmental or lobar lung consolidation. - Procedures None Assessment and Plan - Plan 1. Intractable Abdominal pain continue cardiac telemetry monitoring and continuous pulse oximetry monitoring. white count was mildly elevated at 13.6, lactic acid was normal at 2.0. Glucose was mildly elevated at 218. CT of the abdomen and pelvis reveals Short segmental concentric wall thickening is identified in the distal descending colon. Colon malignancy needs to be excluded. no acute inflammation. continue tachycardic was started on antibiotics in ER, for empiric coverage with Cefepime asked for GI specialist consult. ECG sinus tachycardia. started on Cefepime and Flagyl. Probable Colitis as per ID specialist and GI to continue present care 2. Gram Negative Bacteremia Klebsiella Pneumonia and Enterobacter species, continue Cefepime and Flagyl blood culture today, following by ID specialist. 3. Sepsis at this time has tachycardia and leukocytosis, and positive Bacteremia continue present care. 4. DM II on hold home medicines continue sliding scale for now. 5. GERD on PPIs. 6. Hyperlipidemia continue Home medicines. PPI DVT prophylaxis with Lovenox. Code Status: Full Code. Discussed Condition With: patient, Nurse Miss Link, customer management specialist Doctor Bernardino Pérez and ID specialist Doctor Catirna Sanchez. Discharge Planning: Expected in two to three days.
--- NOTE | 2018-03-20 21:31 | ECG ---
Date Performed: 03/19/2018 Time Performed: 15:59:17 PTAGE: 67 years EKG: SINUS ARRHYTHMIA/TACHYCARDIA POSSIBLE INFERIOR MYOCARDIAL INFARCTION ABNORMAL RHYTHM ECG PREVIOUS TRACING : 03/19/2018 10.45 Compared to previous tracing, rate faster DOCTOR: Gretel Arguello Interpretating Date/Time 03/20/2018 21:31:01
[2018-03-20] MEDS ORDERED: Amiodarone Inj 150 MG in Dextrose 5% in Water Inj 97 ML IV.SIG ONE ×2 (22:46)
--- NOTE | 2018-03-21 00:43 | MB ---
cc: Bernardino Pérez DO DATE: 03/20/2018 REASON FOR CONSULTATION: Elevated troponin. HISTORY OF PRESENT ILLNESS: Sandip Bridges is a pleasant 67-year-old male who presented to [facility] due to nausea, vomiting and abdominal pain. He states that he was awakened at 6 a.m. with left-sided flank pain and left mid back pain radiating to the left lower quadrant. He developed nausea and vomiting secondary to the pain. He has also noticed some pain with urinating. The pain is sharp, stabbing inserted in the left flank and now appears to be on the right flank. He denies any fevers, chills or diaphoresis. Troponin was checked overnight and found to be elevated. I was asked to see him for such. During my evaluation, he has no chest pain or shortness of breath, just flank pain. We have planned for cardiac catheterization, but evaluation shows an elevation of his white blood count, as well as multiple blood cultures positive for gram-negative rods. PAST MEDICAL HISTORY: 1. Diabetes. 2. GERD. 3. Hyperlipidemia. PAST SURGICAL HISTORY: History of gastric bypass. ALLERGIES: NO KNOWN DRUG ALLERGIES. MEDICATIONS: 1. Metformin 1000 mg b.i.d. 2. Lipitor 20 mg daily. 3. Victoza 0.6 mg daily. 4. Omeprazole 40 mg daily. 5. Protonix 20 mg daily. FAMILY HISTORY: Denies sudden cardiac within the family. SOCIAL HISTORY: Denies current tobacco use, but is a former smoker. Denies alcohol or drug abuse. REVIEW OF SYSTEMS: Fourteen systems were reviewed including osteopathic. Pertinent positives and negatives as above, otherwise negative. PHYSICAL EXAMINATION: VITAL SIGNS: Temperature 99.2, heart rate 98, blood pressure 109/69, respirations 20, pulse oximetry 97% on 1 liter. GENERAL: The patient appears in mild distress due to pain. Alert, awake and oriented x3. HEENT: Extraocular muscles intact, clear. Mucous membranes moist. NECK: Supple. No JVD at 45 degrees. No carotid bruits heard bilaterally. Carotid upstroke is brisk in nature. HEART: Regular rate and rhythm. Positive first and second heart sounds with no noted murmurs, gallops or rubs. LUNGS: Clear to auscultation bilaterally. No wheezes, rales or rhonchi. ABDOMEN: Soft, nontender, nondistended. No organomegaly noted. EXTREMITIES: Show no clubbing, cyanosis or edema. Femoral and distal pulses are intact bilaterally. NEUROLOGIC: No focal deficits. SKIN: Warm, dry and intact. OSTEOPATHIC: No kyphoscoliosis or lordosis. Does have flank pain upon pressing on the lateral wall, specifically on the right side. LABORATORY DATA: Hemoglobin 12.6, hematocrit 38.2, platelets 186. Potassium 4.0, BUN 18, creatinine 0.94. Troponin 14.3. Electrocardiogram (03/19/2018 at 1559): Sinus tachycardia, possible inferior myocardial infarction. IMPRESSION: 1. Non-ST elevation myocardial infarction, possible type 2. 2. Abdominal pain/flank pain. 3. Nausea and vomiting. 4. Thickening of the colonic wall on CT. 5. Bacteremia of unknown cause. RECOMMENDATIONS: 1. Mr. Bridges appears to have an elevated troponin, but this may be type 2. Baseline is overall septic picture as well as possible endocarditis. 2. Has 3/4 bottles positive for gram-negative rods. 3. We will hold off on cardiac catheterization due to his current bacteremia and septic state. 4. I reviewed his echocardiogram, although not stated in the report, appears to have a vegetation on the aortic valve. 5. We will plan for transesophageal echocardiogram to further evaluate this to determine course of action. 6. Further recommendations will be made based on the hospital course. Thank you for allowing me to see Sandip Bridges. If you have any questions, please do not hesitate to call. DO SILVANO Blackwood/dakotah , 11:14 PM , 11:27 PM
[2018-03-21] MEDS: Insulin NovoLOG Aspart Correctional Sugar Inj SQ SCH ×6 (03:18→21:18)
--- NOTE | 2018-03-21 08:08 | ECG ---
Date Performed: 03/20/2018 Time Performed: 22:07:56 PTAGE: 67 years EKG: Atrial fibrillation with rapid ventricular response Inferior infarct - age undetermined Pos sible anterior infarct - age undetermined Nonspecific T wave changes a Abnormal ECG No significant ch milana from prior electrocardiogram. PREVIOUS TRACING : 03/19/2018 15.59 DOCTOR: Alvaro Blackwell Interpretating Date/Time 03/21/2018 08:06:49
[2018-03-21] MEDS: Senna/Docusate Sodium 8.6/50 MG Tablet PO SCH ×2 (08:23→21:20)
[2018-03-21] MEDS: Sodium Chloride 0.9% 2 ML Flush BID IV.FLUSH SCH ×2 (08:24→21:19)
--- NOTE | 2018-03-21 08:26 | P.PN ---
Subjective Interval history: This is a pleasant 67 y/o Male who was brought in to Emergency Department via EMS for nausea, vomiting, and abdominal pain. The patient was awakened at 6 AM with left-sided flank pain and left mid back pain radiating to the left lower quadrant. The patient then developed nausea and vomiting secondary to the pain. The patient denies any hematuria, dysuria, frequency, or dark colored urine. The pain is described as sharp, stabbing, starting in left flank and radiating to the left lower quadrant. The patient denies any history of nephrolithiasis or diverticulitis, does have a previous history of gastric bypass. The patient denies any fever, chills, or sweats. Symptoms are moderate to severe, there are no current alleviating factors, and there are no known exacerbating factors.as constant pain, 10/10 in intensity stabbing and sharp sensation, on LLQ, non radiated. he has DM II, GERD, Hyperlipidemia. Discussed with ER physician face to face Doctor Jese Espinal appreciated input and recommendations the patient has probable Sepsis has Tachycardia, Leukocytosis and probable focus in his large bowel. he continue with Pain, will cover with Cefepime and Flagyl and follow with GI specialist, following blood cultures. 03/20: Seen by GI specialist early in am, he had EGD and Colonoscopy in 2006 previous to Gastric bypass surgery, CT abdomen and Pelvis reveals thickening of the distal descending colon and our service has been consulted to evaluate patient for suspected colon mass/colitis, recommended to continue antibiotics, PPIs, Endoscopy once stable, found early with positive blood cultures for Gram negative rods, Klebsiella pneumonia, Enterobacter species, Discussed with ID specialist doctor Catrina Sanchez, and with field specialist Doctor Bernardino Pérez, repeated blood cultures, recommended not to perform KELLY at this time or Colonoscopy continue Cefepime and Flagyl, follow cultures. 03/21: Seen in his bedroom, discussed with nurse Miss Peñaloza at this time came from [facility], also seen by GI specialist recommended EGD and Colonoscopy once patient is stable, no nausea, vomit or diarrhea. Physical Exam Vital signs: Vital Signs 03/20/18 09:00 03/20/18 10:00 03/20/18 11:00 Temperature Pulse Rate 98 H 96 H 98 H Respiratory Rate Blood Pressure Pulse Oximetry 03/20/18 12:00 03/20/18 13:00 03/20/18 14:00 Temperature 98.8 F Pulse Rate 100 H 100 H 104 H Respiratory Rate 18 Blood Pressure 99/77 L Pulse Oximetry 97 03/20/18 15:00 03/20/18 15:58 03/20/18 16:00 Temperature 97.6 F Pulse Rate 104 H 100 H 98 H Respiratory Rate 18 Blood Pressure 104/59 L Pulse Oximetry 96 03/20/18 17:00 03/20/18 18:00 03/20/18 20:00 Temperature 99.5 F Pulse Rate 102 H 102 H 110 H Respiratory Rate 20 Blood Pressure 99/75 L Pulse Oximetry 95 03/20/18 21:00 03/20/18 22:00 03/20/18 23:00 Temperature Pulse Rate 113 H 118 H 111 H Respiratory Rate Blood Pressure Pulse Oximetry 03/20/18 23:30 03/21/18 00:00 03/21/18 00:16 Temperature 99.4 F 99.4 F Pulse Rate 117 H 95 H 104 H Respiratory Rate 22 20 Blood Pressure 106/60 107/66 106/59 L Pulse Oximetry 96 03/21/18 01:00 03/21/18 02:00 03/21/18 03:00 Temperature Pulse Rate 115 H 108 H 104 H Respiratory Rate Blood Pressure Pulse Oximetry 03/21/18 04:00 03/21/18 05:00 03/21/18 06:00 Temperature 97.9 F Pulse Rate 104 H 110 H 109 H Respiratory Rate 24 Blood Pressure 95/65 L Pulse Oximetry 03/21/18 06:49 Temperature Pulse Rate 112 H Respiratory Rate Blood Pressure Pulse Oximetry Intake & Output 03/20/18 03/21/18 03/21/18 18:59 06:59 18:59 Intake Total 2465 / 2465 1540 / 1540 Output Total 360 / 360 450 / 450 Balance 2105 / 2105 1090 / 1090 Weight 103.8 kg Intake: IV 1625 / 1625 1300 / 1300 Heparin/D5W 25,000 U/250 mL 25, 125 / 125 000 unit In 250 ml @ 1,000 UNITS/HR 10 mls/hr IV.CONT TITRATE PRN Rx#:[id number] LR 1000 mL Inj 1,000 ML @ 100 1000 / 1000 1000 / 1000 mls/hr IV.CONT .Q10H [facility] Rx#: [id number] Cordarone Inj 150 MG In D5W Inj 100 / 100 97 ML @ 600 mls/hr IV.SIG ONCE ONE Rx#:[id number] Maxipime Inj 1,000 MG In NS Inj 200 / 200 100 ML @ 200 mls/hr IV.SIG ONCE ONE Rx#:[id number] Maxipime Inj 2,000 MG In NS Inj 100 / 100 100 / 100 100 ML @ 200 mls/hr IV.SIG Q8H [facility] Rx#:[id number] Flagyl 500 MG Inj 100 ML @ 100 200 / 200 100 / 100 mls/hr IV.SIG Q8H [facility] Rx#: [id number] Oral 840 / 840 240 / 240 Output: Urine 360 / 360 450 / 450 Other: Date of Last Bowel Movement 03/20/18 03/20/18 Narrative: GENERAL: Obese, well-developed, not in acute distress SKIN: Cool and dry, no generalized rash HEAD: Atraumatic. Normocephalic. No temporal or scalp tenderness. EYES: Pupils equal round and reactive. Scleral icterus. No injection or drainage. No petechia ENT: Nothing abnormal detected NECK: Trachea midline. Supple, nontender, no meningeal signs. CARDIOVASCULAR: HS audible. RESPIRATORY: Clear to auscultation bilaterally. GASTROINTESTINAL: Abdomen soft , obese, now tenderness on right flank and Right upper quadrant. MUSCULOSKELETAL: Extremities without clubbing, cyanosis. NEUROLOGICAL: Alert oriented 3. Nonfocal deficits. Results - Labs CBC & Chem 7: 03/20/18 04:06 03/20/18 04:06 Laboratory Results - last 24 hr 03/19/18 03/20/18 03/20/18 15:53 08:45 10:09 APTT POC Glucose 137 H Hemoglobin A1c 6.9 H Magnesium 1.8 03/20/18 03/20/18 03/20/18 10:09 12:08 16:43 APTT 36.1 H D POC Glucose 170 H 199 H Hemoglobin A1c Magnesium 03/20/18 03/21/18 03/21/18 20:23 03:11 07:47 APTT POC Glucose 314 H 198 H 237 H Hemoglobin A1c Magnesium Microbiology 03/19/18 15:45 Blood - Peripheral Aerobic Blood Culture - Preliminary Enterobacter species Klebsiella pneumoniae 03/19/18 15:45 Blood - Peripheral Anaerobic Blood Culture - Preliminary gram negative rods 03/19/18 15:50 Blood - Peripheral Aerobic Blood Culture - Preliminary gram negative rods 03/19/18 15:50 Blood - Peripheral Anaerobic Blood Culture - Preliminary No growth in 1 day - Imaging Abdomen/Pelvis CT 03/19/18 10:38 CONCLUSION: 1. Short segmental concentric wall thickening is identified in the distal descending colon. Colon malignancy needs to be excluded. 2. Calcified gallstones with moderate distention of the gallbladder. 3. No other significant abnormality. Chest CTA 03/19/18 13:37 CONCLUSION: 1. No evidence of acute pulmonary embolism. 2. Mild subpleural airspace disease and reticulations which may be chronic. 3. No evidence of segmental or lobar lung consolidation. - Procedures None Assessment and Plan - Plan 1. Intractable Abdominal pain continue cardiac telemetry monitoring and continuous pulse oximetry monitoring. white count was mildly elevated at 13.6, lactic acid was normal at 2.0. Glucose was mildly elevated at 218. CT of the abdomen and pelvis reveals Short segmental concentric wall thickening is identified in the distal descending colon. Colon malignancy needs to be excluded. no acute inflammation. continue tachycardic was started on antibiotics in ER, for empiric coverage with Cefepime asked for GI specialist consult. ECG sinus tachycardia. started on Cefepime and Flagyl. Culture positive for Klebsiella Pneumonia. 2. Hyperlipidemia continue Home medicines. 3. SIRS at this time has tachycardia and leukocytosis, 4. DM II Uncontrolled started on Levemir 5 units BID and increased to sliding scale Medium dose. 5. GERD on PPIs. 6. NSTEMI at this time having his KELLY, as per field specialist the Troponin elevation may be secondary to Sepsis and possible endocarditis, on hold all possible Cardiac Procedures, looks that he has a vegetation on the Aortic Valve asked for KELLY performed today DVT prophylaxis with Heparin Code Status: Full code. Discussed Condition With: Patient and Nurse Miss Mendoza. Discharge Planning: Once cleared by specialists.
[2018-03-21] MEDS: Morphine Sulfate Inj 2 MG/ML Vial IV.PUSH PRN ×3 (08:27→21:20)
[2018-03-21] MEDS ORDERED: Magnesium Sulfate Inj 2 GM in Sodium Chlor 0.9% Inj 96 ML IV.SIG ONE (10:00)
[2018-03-21] MEDS ORDERED: Lidocaine PF 1% Inj 5 ML Syringe OTHER ONE (12:45)
--- NOTE | 2018-03-21 16:44 | P.PNGI ---
Subjective Interval history: Patient is resting in the bed appears weakened but answers simple questions Abdominal pain waxes and wanes and initially was left-sided now appears to be right sided, more right lower quadrant worse with movement. Could be muscle skeletal related secondary to his vomiting episodes the other day <Teresa Azar - Last Filed: 03/21/18 16:45> Physical Exam Vital signs: Vital Signs 03/20/18 17:00 03/20/18 18:00 03/20/18 20:00 Temperature 99.5 F Pulse Rate 102 H 102 H 110 H Respiratory Rate 20 Blood Pressure 99/75 L Pulse Oximetry 95 03/20/18 21:00 03/20/18 22:00 03/20/18 23:00 Temperature Pulse Rate 113 H 118 H 111 H Respiratory Rate Blood Pressure Pulse Oximetry 03/20/18 23:30 03/21/18 00:00 03/21/18 00:16 Temperature 99.4 F 99.4 F Pulse Rate 117 H 95 H 104 H Respiratory Rate 22 20 Blood Pressure 106/60 107/66 106/59 L Pulse Oximetry 96 03/21/18 01:00 03/21/18 02:00 03/21/18 03:00 Temperature Pulse Rate 115 H 108 H 104 H Respiratory Rate Blood Pressure Pulse Oximetry 03/21/18 04:00 03/21/18 05:00 03/21/18 06:00 Temperature 97.9 F Pulse Rate 104 H 110 H 109 H Respiratory Rate 24 Blood Pressure 95/65 L Pulse Oximetry 03/21/18 06:49 03/21/18 07:00 03/21/18 08:00 Temperature 98.3 F Pulse Rate 112 H 102 H 87 Respiratory Rate 16 Blood Pressure 101/61 Pulse Oximetry 95 03/21/18 09:00 03/21/18 10:00 03/21/18 11:00 Temperature Pulse Rate 93 H 91 H 92 H Respiratory Rate Blood Pressure Pulse Oximetry 03/21/18 14:00 03/21/18 15:00 03/21/18 16:00 Temperature 98.0 F Pulse Rate 105 H 95 H 100 H Respiratory Rate 16 Blood Pressure 103/75 Pulse Oximetry 95 Intake & Output 03/20/18 03/21/18 03/21/18 18:59 06:59 18:59 Intake Total 2465 / 2465 1540 / 1540 1550 / 1550 Output Total 360 / 360 450 / 450 Balance 2105 / 2105 1090 / 1090 1550 / 1550 Weight 103.8 kg Intake: IV 1625 / 1625 1300 / 1300 1550 / 1550 Cordarone Inj 450 MG In D5W Inj 250 / 250 241 ML @ 1 MG/MIN 33.33 mls/hr IV.CONT TITRATE PRN Rx#: [id number] Heparin/D5W 25,000 U/250 mL 25, 125 / 125 000 unit In 250 ml @ 1,000 UNITS/HR 10 mls/hr IV.CONT TITRATE PRN Rx#:[id number] LR 1000 mL Inj 1,000 ML @ 100 1000 / 1000 1000 / 1000 1000 / 1000 mls/hr IV.CONT .Q10H [facility] Rx#: [id number] Cordarone Inj 150 MG In D5W Inj 100 / 100 97 ML @ 600 mls/hr IV.SIG ONCE ONE Rx#:[id number] Maxipime Inj 1,000 MG In NS Inj 200 / 200 100 ML @ 200 mls/hr IV.SIG ONCE ONE Rx#:[id number] Maxipime Inj 2,000 MG In NS Inj 100 / 100 100 / 100 100 / 100 100 ML @ 200 mls/hr IV.SIG Q8H [facility] Rx#:[id number] Magnesium Sulfate Inj 2 GM In 100 / 100 NS Inj 96 ML @ 50 mls/hr IV.SIG ONCE ONE Rx#:[id number] Flagyl 500 MG Inj 100 ML @ 100 200 / 200 100 / 100 100 / 100 mls/hr IV.SIG Q8H [facility] Rx#: [id number] Oral 840 / 840 240 / 240 Output: Urine 360 / 360 450 / 450 Other: Date of Last Bowel Movement 03/20/18 03/20/18 - Constitutional mild distress, cachectic, chronically ill appearing, disheveled, cooperative - Routine HEENT Exam Head: Present: normocephalic ENT: Present: mucous membranes moist - Routine Respiratory Exam Present: accessory muscle use (Low volumes, diminished breath sounds bilateral bases), distant breath sounds - Routine Cardiovascular Exam Present: S1, S2, tachycardia - Routine Abdominal Exam Present: soft, tenderness (Right lower quadrant discomfort with light palpation , no obvious distention) <Teresa Azar - Last Filed: 03/21/18 16:45> Vital signs: Vital Signs 03/20/18 20:00 03/20/18 21:00 03/20/18 22:00 Temperature 99.5 F Pulse Rate 110 H 113 H 118 H Respiratory Rate 20 Blood Pressure 99/75 L Pulse Oximetry 95 03/20/18 23:00 03/20/18 23:30 03/21/18 00:00 Temperature 99.4 F 99.4 F Pulse Rate 111 H 117 H 95 H Respiratory Rate 22 20 Blood Pressure 106/60 107/66 Pulse Oximetry 96 03/21/18 00:16 03/21/18 01:00 03/21/18 02:00 Temperature Pulse Rate 104 H 115 H 108 H Respiratory Rate Blood Pressure 106/59 L Pulse Oximetry 03/21/18 03:00 03/21/18 04:00 03/21/18 05:00 Temperature 97.9 F Pulse Rate 104 H 104 H 110 H Respiratory Rate 24 Blood Pressure 95/65 L Pulse Oximetry 03/21/18 06:00 03/21/18 06:49 03/21/18 07:00 Temperature Pulse Rate 109 H 112 H 102 H Respiratory Rate Blood Pressure Pulse Oximetry 03/21/18 08:00 03/21/18 09:00 03/21/18 10:00 Temperature 98.3 F Pulse Rate 87 93 H 91 H Respiratory Rate 16 Blood Pressure 101/61 Pulse Oximetry 95 03/21/18 11:00 03/21/18 14:00 03/21/18 15:00 Temperature Pulse Rate 92 H 105 H 95 H Respiratory Rate Blood Pressure Pulse Oximetry 03/21/18 16:00 03/21/18 17:00 03/21/18 17:18 Temperature 98.0 F Pulse Rate 100 H 110 H Respiratory Rate 16 Blood Pressure 103/75 Pulse Oximetry 95 95 03/21/18 18:00 Temperature Pulse Rate 98 H Respiratory Rate Blood Pressure Pulse Oximetry Intake & Output 03/21/18 03/21/18 03/22/18 06:59 18:59 06:59 Intake Total 1540 / 1540 3370 / 3370 Output Total 450 / 450 750 / 750 Balance 1090 / 1090 2620 / 2620 Weight 103.8 kg Intake: IV 1300 / 1300 2650 / 2650 Cordarone Inj 450 MG In D5W Inj 250 / 250 241 ML @ 1 MG/MIN 33.33 mls/hr IV.CONT TITRATE PRN Rx#: [id number] LR 1000 mL Inj 1,000 ML @ 100 1000 / 1000 2000 / 2000 mls/hr IV.CONT .Q10H [facility] Rx#: [id number] Cordarone Inj 150 MG In D5W Inj 100 / 100 97 ML @ 600 mls/hr IV.SIG ONCE ONE Rx#:[id number] Maxipime Inj 2,000 MG In NS Inj 100 / 100 100 / 100 100 ML @ 200 mls/hr IV.SIG Q8H [facility] Rx#:[id number] Magnesium Sulfate Inj 2 GM In 100 / 100 NS Inj 96 ML @ 50 mls/hr IV.SIG ONCE ONE Rx#:[id number] Flagyl 500 MG Inj 100 ML @ 100 100 / 100 200 / 200 mls/hr IV.SIG Q8H [facility] Rx#: [id number] Oral 240 / 240 720 / 720 Output: Urine 450 / 450 750 / 750 Other: Date of Last Bowel Movement 03/20/18 <Kimmie Calvo - Last Filed: 03/21/18 19:12> Results - Labs CBC & Chem 7: 03/20/18 04:06 03/20/18 04:06 Laboratory Results - last 24 hr 03/19/18 03/20/18 03/20/18 15:53 16:43 20:23 POC Glucose 199 H 314 H Hemoglobin A1c 6.9 H 03/21/18 03/21/18 03/21/18 03:11 07:47 15:05 POC Glucose 198 H 237 H 268 H Hemoglobin A1c Microbiology 03/20/18 22:20 Blood - Peripheral Aerobic Blood Culture - Preliminary No growth in 1 day 03/20/18 22:20 Blood - Peripheral Anaerobic Blood Culture - Preliminary No growth in 1 day 03/20/18 22:15 Blood - Peripheral Aerobic Blood Culture - Preliminary No growth in 1 day 03/20/18 22:15 Blood - Peripheral Anaerobic Blood Culture - Preliminary No growth in 1 day 03/19/18 15:50 Blood - Peripheral Aerobic Blood Culture - Preliminary Klebsiella pneumoniae gram negative rods 03/19/18 15:50 Blood - Peripheral Anaerobic Blood Culture - Preliminary No growth in 2 days 03/19/18 15:45 Blood - Peripheral Aerobic Blood Culture - Final Klebsiella pneumoniae 03/19/18 15:45 Blood - Peripheral Anaerobic Blood Culture - Final Klebsiella pneumoniae - Procedures None <Teresa Azar - Last Filed: 03/21/18 16:45> - Labs CBC & Chem 7: 03/20/18 04:06 03/20/18 04:06 Laboratory Results - last 24 hr 03/19/18 03/20/18 03/21/18 15:53 20:23 03:11 POC Glucose 314 H 198 H Hemoglobin A1c 6.9 H Carcinoembryonic Ag 03/21/18 03/21/18 03/21/18 07:47 15:05 16:15 POC Glucose 237 H 268 H Hemoglobin A1c Carcinoembryonic Ag 2.2 Microbiology 03/20/18 22:20 Blood - Peripheral Aerobic Blood Culture - Preliminary No growth in 1 day 03/20/18 22:20 Blood - Peripheral Anaerobic Blood Culture - Preliminary No growth in 1 day 03/20/18 22:15 Blood - Peripheral Aerobic Blood Culture - Preliminary No growth in 1 day 03/20/18 22:15 Blood - Peripheral Anaerobic Blood Culture - Preliminary No growth in 1 day 03/19/18 15:50 Blood - Peripheral Aerobic Blood Culture - Preliminary Klebsiella pneumoniae gram negative rods 03/19/18 15:50 Blood - Peripheral Anaerobic Blood Culture - Preliminary No growth in 2 days 03/19/18 15:45 Blood - Peripheral Aerobic Blood Culture - Final Klebsiella pneumoniae 03/19/18 15:45 Blood - Peripheral Anaerobic Blood Culture - Final Klebsiella pneumoniae <Kimmie Calvo - Last Filed: 03/21/18 19:12> Assessment and Plan (1) Intractable abdominal pain Status: Acute Code(s): R10.9 - Unspecified abdominal pain - Plan Mr. Bridges is a 67-year-old male patient who presented to the emergency room on 03/19/2018 with complaints of nausea, vomiting and abdominal pain. Past medical history includes diabetes type 2, GERD and hyperlipidemia. Patient also endorses history of chronic lower back pain and arthritis. Patient states onset of pain 03/19/2018 at 0600. He reports pain as being located in the left lower quadrant of his abdomen associated with accompanied nausea and vomiting of clear emesis. Patient describes pain as sharp rated at 10 out of 10 and states it did not radiate to and any other location. Patient denied fever, and denied any aggravating or alleviating factors. Patient states last EGD/colonoscopy was done in 2006 prior to gastric bypass surgery. Patient states he has lost a total of 257 pounds since having the surgery. Patient reports that there were no abnormal findings and there was recommendation to repeat exam in 10 years. Patient denies use of alcohol or tobacco products. Patient does endorse family history of gastric cancer-he states his brother of gastric cancer at the age of 3838 years old. Patient denies any noted bleeding in stool or emesis. Patient denies any difficulty swallowing or painful swallowing. Denies any unintended weight loss. States bowel movements every 1-2 days with no reported constipation or diarrhea. CT done on admission reveals thickening of the distal descending colon and our service has been consulted to evaluate patient for suspected colon mass/colitis Intractable abdominal pain 03/19/2018 CT abdomen and pelvis--> 1. Short segmental concentric wall thickening is identified in the distal descending colon. Colon malignancy needs to be excluded. 2. Calcified gallstones with moderate distention of the gallbladder. 3. No other significant abnormality Of note, upon consultation patient reports sharp right-sided lower abdominal pain intermittent in nature. Hemoglobin 12.6 hematocrit 38.2. WBC 20.9 low-grade temp 99.2 Fahrenheit 03/19/2018 Troponin 14.3-patient denies current chest wall pain but does report that he has had intermittent chest pain over the last month. Cardiology consult noted. Patient currently on heparin infusion. 03/21/2018,Patient is resting in the bed appears weakened but answers simple questions Abdominal pain waxes and wanes and initially was left-sided now appears to be right sided, more right lower quadrant worse with movement. Could be muscle skeletal related secondary to his vomiting episodes the other day Patient continues on amiodarone drip, heart rate mildly irregular with tachycardia. Patient's been monitored per cardiology and needs cardiac catheterization and workup as well as EGD and colonoscopy when feeling better. Also being monitored per ID for possible sepsis. Gastroenterology was consulted but cannot perform any further workup for now pending cardiology and ID who is treatment sepsis gram-negative bacteremia. Will continue to follow and see as needed. Plan Diet as tolerated per attending Antibiotics per attending Consider EGD and colonoscopy once patient is stable PPI Monitor any obvious bleeding changes in hemoglobin, monitor labs Zofran Supportive care Further recommendations to follow Patient was seen per myself and Dr. Calvo, note was written on his behalf <Teresa Azar - Last Filed: 03/21/18 16:45> (1) Intractable abdominal pain Status: Acute Code(s): R10.9 - Unspecified abdominal pain - Attending Attestation seen, examined agree with above CTA abdomen/pelvis r/o mesenteric ischemia <Kimmie Calvo - Last Filed: 03/21/18 19:12>
--- NOTE | 2018-03-21 17:15 | P.PNID ---
Subjective Remarks: Mr. Bridges is a 67-year-old male patient who presented to the emergency room on March 19, 2018. Patient initially reported nausea vomiting as well as abdominal pain on admission. Of note patient's past medical history significant for gastric bypass surgery many years back. Patient also has a history of type 2 diabetes, GERD, hyperlipidemia as well as morbid obesity. Condition he reports chronic lower back pain as well as arthritis. Patient reports that his abdominal pain started in the left lower quadrant associated with nausea and vomiting of clear emesis. He reports that he was still vomiting until yesterday and vomiting has now resolved. He continues to have abdominal pain. Patient denied any fever chills or night sweats prior to admission. Patient reports that his last EGD and colonoscopy was in 2006 prior to gastric bypass surgery. Patient reports he has lost a total of 257 pounds since he has had surgery. Patient was asked to have a repeat colonoscopy in 10 years if there were no abnormal findings. He denies any use of alcohol or tobacco products recently but has used in the past. He reports that his mother had gastric cancer in his brother also had a gastric cancer at the age of 38 years. He denies any hematemesis or any black tarry stools or fresh blood in stool. Patient reports that he has a bowel movement every 1-2 days. He denies any history of constipation and diarrhea. A CT of the abdomen pelvis done on admission reveals thickening of the distal descending colon and there is a concern for colonic mass and therefore GI has been consulted. Due to elevated troponins cardiology has also been called and there is a plan for KELLY and possibly a cardiac cath in the future. Blood cultures drawn and admission are positive for gram-negative rods and infectious diseases consulted for evaluation and management of the same. Overnight events reviewed No fevers no rash no diarrhea KELLY negative. S/b GI dw mesenteric ischemia a possibility CTA abdomen ordered by her. Plan for colonoscopy. Ok to proceed. Antibiotics: cefepime IV Flagyl IV Lines: Lines ok Past Medical History: reviewed Allergies/Adverse Reactions: Allergies No Known Allergies Allergy (Verified 03/19/18 10:28) Objective Vital Signs 03/20/18 18:00 03/20/18 20:00 03/20/18 21:00 Temperature 99.5 F Pulse Rate 102 H 110 H 113 H Respiratory Rate 20 Blood Pressure 99/75 L Pulse Oximetry 95 03/20/18 22:00 03/20/18 23:00 03/20/18 23:30 Temperature 99.4 F Pulse Rate 118 H 111 H 117 H Respiratory Rate 22 Blood Pressure 106/60 Pulse Oximetry 96 03/21/18 00:00 03/21/18 00:16 03/21/18 01:00 Temperature 99.4 F Pulse Rate 95 H 104 H 115 H Respiratory Rate 20 Blood Pressure 107/66 106/59 L Pulse Oximetry 03/21/18 02:00 03/21/18 03:00 03/21/18 04:00 Temperature 97.9 F Pulse Rate 108 H 104 H 104 H Respiratory Rate 24 Blood Pressure 95/65 L Pulse Oximetry 03/21/18 05:00 03/21/18 06:00 03/21/18 06:49 Temperature Pulse Rate 110 H 109 H 112 H Respiratory Rate Blood Pressure Pulse Oximetry 03/21/18 07:00 03/21/18 08:00 03/21/18 09:00 Temperature 98.3 F Pulse Rate 102 H 87 93 H Respiratory Rate 16 Blood Pressure 101/61 Pulse Oximetry 95 03/21/18 10:00 03/21/18 11:00 03/21/18 14:00 Temperature Pulse Rate 91 H 92 H 105 H Respiratory Rate Blood Pressure Pulse Oximetry 03/21/18 15:00 03/21/18 16:00 03/21/18 17:00 Temperature 98.0 F Pulse Rate 95 H 100 H 110 H Respiratory Rate 16 Blood Pressure 103/75 Pulse Oximetry 95 Intake & Output 03/20/18 03/21/18 03/21/18 18:59 06:59 18:59 Intake Total 2465 / 2465 1540 / 1540 2270 / 2270 Output Total 360 / 360 450 / 450 750 / 750 Balance 2105 / 2105 1090 / 1090 1520 / 1520 Weight 103.8 kg Intake: IV 1625 / 1625 1300 / 1300 1550 / 1550 Cordarone Inj 450 MG In D5W Inj 250 / 250 241 ML @ 1 MG/MIN 33.33 mls/hr IV.CONT TITRATE PRN Rx#: [id number] Heparin/D5W 25,000 U/250 mL 25, 125 / 125 000 unit In 250 ml @ 1,000 UNITS/HR 10 mls/hr IV.CONT TITRATE PRN Rx#:[id number] LR 1000 mL Inj 1,000 ML @ 100 1000 / 1000 1000 / 1000 1000 / 1000 mls/hr IV.CONT .Q10H [facility] Rx#: [id number] Cordarone Inj 150 MG In D5W Inj 100 / 100 97 ML @ 600 mls/hr IV.SIG ONCE ONE Rx#:[id number] Maxipime Inj 1,000 MG In NS Inj 200 / 200 100 ML @ 200 mls/hr IV.SIG ONCE ONE Rx#:[id number] Maxipime Inj 2,000 MG In NS Inj 100 / 100 100 / 100 100 / 100 100 ML @ 200 mls/hr IV.SIG Q8H [facility] Rx#:[id number] Magnesium Sulfate Inj 2 GM In 100 / 100 NS Inj 96 ML @ 50 mls/hr IV.SIG ONCE ONE Rx#:[id number] Flagyl 500 MG Inj 100 ML @ 100 200 / 200 100 / 100 100 / 100 mls/hr IV.SIG Q8H [facility] Rx#: [id number] Oral 840 / 840 240 / 240 720 / 720 Output: Urine 360 / 360 450 / 450 750 / 750 Other: Date of Last Bowel Movement 03/20/18 03/20/18 03/20/18 22:20 Blood - Peripheral Aerobic Blood Culture - Preliminary No growth in 1 day 03/20/18 22:20 Blood - Peripheral Anaerobic Blood Culture - Preliminary No growth in 1 day 03/20/18 22:15 Blood - Peripheral Aerobic Blood Culture - Preliminary No growth in 1 day 03/20/18 22:15 Blood - Peripheral Anaerobic Blood Culture - Preliminary No growth in 1 day 03/19/18 15:50 Blood - Peripheral Aerobic Blood Culture - Preliminary Klebsiella pneumoniae gram negative rods 03/19/18 15:50 Blood - Peripheral Anaerobic Blood Culture - Preliminary No growth in 2 days 03/19/18 15:45 Blood - Peripheral Aerobic Blood Culture - Final Klebsiella pneumoniae 03/19/18 15:45 Blood - Peripheral Anaerobic Blood Culture - Final Klebsiella pneumoniae 03/19/18 16:15 Nasal Wash Influenza Types A,B Antigen - Final Negative for FLU A and B antigen Infection due to influenza A or B cannot be ruled out since the antigen present in the sample may be below the detection limit of the test. Lab - Hematology Results 03/20/18 04:06 WBC 20.9 H D RBC 4.36 L Hgb 12.6 L Hct 38.2 L MCV 87.6 MCH 29.0 MCHC 33.1 RDW 14.6 Plt Count 186 MPV 10.4 Neut % (Auto) 85.5 H Lymph % (Auto) 6.1 L Milam % (Auto) 8.0 Eos % (Auto) 0.0 Baso % (Auto) 0.4 Neut # (Auto) 17.9 H Lymph # (Auto) 1.3 Milam # (Auto) 1.7 H Eos # (Auto) 0.0 Baso # (Auto) 0.1 WBC Differential . Differential Comment Auto diff final Lab - Chemistry Results 03/19/18 03/19/18 03/19/18 10:49 15:53 16:17 Sodium Potassium Chloride Carbon Dioxide Anion Gap BUN Creatinine Estimated GFR POC Glucose Random Glucose Hemoglobin A1c 6.9 H Lactic Acid 2.1 H Calcium Magnesium Total Creatine Kinase CK-MB (CK-2) CK-MB (CK-2) % Troponin I Triglycerides 59 Cholesterol 104 L LDL Cholesterol, Calc 39 HDL Cholesterol 53.7 Cholesterol/HDL Ratio 1.93 TSH 0.863 03/19/18 03/19/18 03/19/18 17:04 21:16 22:19 Sodium Potassium Chloride Carbon Dioxide Anion Gap BUN Creatinine Estimated GFR POC Glucose 232 H Random Glucose Hemoglobin A1c Lactic Acid Calcium Magnesium Total Creatine Kinase 112 415 H CK-MB (CK-2) 30.0 H CK-MB (CK-2) % 7.2 H* Troponin I 1.72 H* 14.30 H* Triglycerides Cholesterol LDL Cholesterol, Calc HDL Cholesterol Cholesterol/HDL Ratio [facility] 03/19/18 03/20/18 03/20/18 22:19 02:15 04:06 Sodium 139 Potassium 4.0 Chloride 106 Carbon Dioxide 24.9 Anion Gap 8 BUN 18 Creatinine 0.94 Estimated GFR 80 L POC Glucose Random Glucose 229 H Hemoglobin A1c Lactic Acid 1.6 Calcium 8.3 L Magnesium 1.4 L Total Creatine Kinase CK-MB (CK-2) CK-MB (CK-2) % Troponin I Triglycerides Cholesterol LDL Cholesterol, Calc HDL Cholesterol Cholesterol/HDL Ratio [facility] 03/20/18 03/20/18 03/20/18 04:29 08:45 10:09 Sodium Potassium Chloride Carbon Dioxide Anion Gap BUN Creatinine Estimated GFR POC Glucose 215 H 137 H Random Glucose Hemoglobin A1c Lactic Acid Calcium Magnesium 1.8 Total Creatine Kinase CK-MB (CK-2) CK-MB (CK-2) % Troponin I Triglycerides Cholesterol LDL Cholesterol, Calc HDL Cholesterol Cholesterol/HDL Ratio TSH 03/20/18 03/20/18 03/20/18 12:08 16:43 20:23 Sodium Potassium Chloride Carbon Dioxide Anion Gap BUN Creatinine Estimated GFR POC Glucose 170 H 199 H 314 H Random Glucose Hemoglobin A1c Lactic Acid Calcium Magnesium Total Creatine Kinase CK-MB (CK-2) CK-MB (CK-2) % Troponin I Triglycerides Cholesterol LDL Cholesterol, Calc HDL Cholesterol Cholesterol/HDL Ratio TSH 03/21/18 03/21/18 03/21/18 03:11 07:47 15:05 Sodium Potassium Chloride Carbon Dioxide Anion Gap BUN Creatinine Estimated GFR POC Glucose 198 H 237 H 268 H Random Glucose Hemoglobin A1c Lactic Acid Calcium Magnesium Total Creatine Kinase CK-MB (CK-2) CK-MB (CK-2) % Troponin I Triglycerides Cholesterol LDL Cholesterol, Calc HDL Cholesterol Cholesterol/HDL Ratio TSH Imaging: ITS Impressions Abdomen/Pelvis CT 03/19/18 10:38 CONCLUSION: 1. Short segmental concentric wall thickening is identified in the distal descending colon. Colon malignancy needs to be excluded. 2. Calcified gallstones with moderate distention of the gallbladder. 3. No other significant abnormality. Chest CTA 03/19/18 13:37 CONCLUSION: 1. No evidence of acute pulmonary embolism. 2. Mild subpleural airspace disease and reticulations which may be chronic. 3. No evidence of segmental or lobar lung consolidation. Physical Exam: GENERAL: Obese, well-developed, not in acute distress SKIN: Cool and dry, no generalized rash HEAD: Atraumatic. Normocephalic. No temporal or scalp tenderness. EYES: Pupils equal round and reactive. Scleral icterus. No injection or drainage. No petechia ENT: Nothing abnormal detected NECK: Trachea midline. Supple, nontender, no meningeal signs. CARDIOVASCULAR: HS audible. RESPIRATORY: Clear to auscultation bilaterally. GASTROINTESTINAL: Abdomen soft , obese, tenderness in the left upper quadrant as well as lower quadrant. Skin folds examined with no evidence of infection. MUSCULOSKELETAL: Extremities without clubbing, cyanosis. NEUROLOGICAL: Alert oriented 3. Nonfocal. Psych cooperative IV line sites ok. Assessment and Plan - Plan Sepsis present on admission Gram-negative bacteremia Enterobacter and Klebsiella pneumonia isolated so far. Leukocytosis appears to be increased today. Possible component of non-ST elevation OK related leukocytosis. Concern for GI malignancy GI on board for possible colonoscopy. Non-ST elevation OK likely secondary to sepsis cardiology on board with plan for KELLY as well as cardiac cath. Recommendations: Continue cefepime IV at every 8 hours dosing until all gram negatives identified Continue Flagyl IV for now until blood cultures finalized. Follow cultures Follow clinical course misha Hansno plan for CTA Abd to r.o mesenteric ischemia and Colonoscopy. misha Amor KELLY negative. Discussed with patient
--- NOTE | 2018-03-21 18:55 | P.PNCA ---
Subjective Interval history: Still not feeling well AFib with RVR overnight Abdominal pain continues Medications and Allergies Active Medications: Active Medications Acetaminophen (Tylenol) 650 mg PO Q4H PRN PRN Reason: Temp > 100.4 Al Hydroxide/Mg Hydroxide (Milk Of Magnesia Liq) 30 ml PO Q12H PRN PRN Reason: Mild Constipation Bisacodyl (Dulcolax Supp) 10 mg RECTAL DAILY PRN PRN Reason: SEVERE CONSITIPATION Dextrose (D50w Vial) 50 ml IV.PUSH UNSCH PRN PRN Reason: PER HYPOGLYCEMIA PROTOCOL Glucagon (Glucagon Inj) 1 mg OTHER PRN PRN PRN Reason: for Hypoglycemia Protocol Heparin Sodium (Porcine) (Heparin Inj) 5,000 units SQ Q8HR [facility] Lactated Ringer's (Lr 1000 Ml Inj) 1,000 mls @ 100 mls/hr IV.CONT .Q10H [facility] Last Infusion: 03/21/18 17:18 Dose: Infused Metronidazole/Sodium Chloride (Flagyl 500 Mg Inj) 100 mls @ 100 mls/hr IV.SIG Q8H [facility] Last Infusion: 03/21/18 17:16 Dose: Infused Cefepime HCl 2,000 mg/ Sodium (Chloride) 100 mls @ 200 mls/hr IV.SIG Q8H [facility] Last Admin: 03/21/18 15:03 Dose: Not Given Amiodarone HCl 450 mg/ (Dextrose) 250 mls @ 33.33 mls/hr IV.CONT TITRATE PRN; Protocol PRN Reason: Per Protocol Last Admin: 03/21/18 10:23 Dose: 0.5 mg/min, 16.66 mls/hr Insulin Aspart (Novolog Insulin Correctional Sugar Inj) 0 unit SQ 08,12,17,21, 03 [facility]; Protocol Last Admin: 03/21/18 17:16 Dose: Not Given Insulin Detemir (Levemir Inj) 5 unit SQ BID [facility] Lactulose (Lactulose Liq) 30 ml PO DAILY PRN PRN Reason: SEVERE CONSITIPATION Morphine Sulfate (Morphine Inj) 2 mg IV.PUSH Q3H PRN PRN Reason: PAIN SCALE 6 TO 10 Last Admin: 03/21/18 15:02 Dose: 2 mg Ondansetron HCl (Zofran Inj) 4 mg IV.PUSH Q6H PRN PRN Reason: NAUSEA OR VOMITING Pantoprazole Sodium (Protonix) 40 mg PO DAILY [facility] Last Admin: 03/21/18 08:23 Dose: 40 mg Senna/Docusate Sodium (Carlotta-Colace) 1 tab PO BID [facility] Last Admin: 03/21/18 08:23 Dose: 1 tab Sennosides (Senokot) 17.2 mg PO Q12H PRN PRN Reason: Moderate Constipation Sodium Chloride (Ns Flush) 2 ml IV.FLUSH BID [facility] Last Admin: 03/21/18 08:24 Dose: Not Given Sodium Chloride (Ns Flush) 2 ml IV.FLUSH PRN PRN PRN Reason: FLUSH AFTER USING IV ACCESS Allergies Allergy/AdvReac Type Severity Reaction Status Date / Time No Known Allergies Allergy Verified 03/19/18 10:28 Home Medications Medication Instructions Recorded Confirmed Type atorvastatin 20 mg PO DAILY 03/19/18 03/19/18 History liraglutide [Victoza 2-Soniod] 0.6 mg SUBCUT DAILY 03/19/18 03/19/18 History metformin 1,000 mg PO BID 03/19/18 03/19/18 History omeprazole-sodium bicarbonate 1 cap PO DAILY 03/19/18 03/19/18 History pantoprazole 20 mg PO DAILY 03/19/18 03/19/18 History Physical Exam Vital signs: Vital Signs 03/20/18 20:00 03/20/18 21:00 03/20/18 22:00 Temperature 99.5 F Pulse Rate 110 H 113 H 118 H Respiratory Rate 20 Blood Pressure 99/75 L Pulse Oximetry 95 03/20/18 23:00 03/20/18 23:30 03/21/18 00:00 Temperature 99.4 F 99.4 F Pulse Rate 111 H 117 H 95 H Respiratory Rate 22 20 Blood Pressure 106/60 107/66 Pulse Oximetry 96 03/21/18 00:16 03/21/18 01:00 03/21/18 02:00 Temperature Pulse Rate 104 H 115 H 108 H Respiratory Rate Blood Pressure 106/59 L Pulse Oximetry 03/21/18 03:00 03/21/18 04:00 03/21/18 05:00 Temperature 97.9 F Pulse Rate 104 H 104 H 110 H Respiratory Rate 24 Blood Pressure 95/65 L Pulse Oximetry 03/21/18 06:00 03/21/18 06:49 03/21/18 07:00 Temperature Pulse Rate 109 H 112 H 102 H Respiratory Rate Blood Pressure Pulse Oximetry 03/21/18 08:00 03/21/18 09:00 03/21/18 10:00 Temperature 98.3 F Pulse Rate 87 93 H 91 H Respiratory Rate 16 Blood Pressure 101/61 Pulse Oximetry 95 03/21/18 11:00 03/21/18 14:00 03/21/18 15:00 Temperature Pulse Rate 92 H 105 H 95 H Respiratory Rate Blood Pressure Pulse Oximetry 03/21/18 16:00 03/21/18 17:00 03/21/18 17:18 Temperature 98.0 F Pulse Rate 100 H 110 H Respiratory Rate 16 Blood Pressure 103/75 Pulse Oximetry 95 95 03/21/18 18:00 Temperature Pulse Rate 98 H Respiratory Rate Blood Pressure Pulse Oximetry Intake & Output 03/20/18 03/21/18 03/21/18 18:59 06:59 18:59 Intake Total 2465 / 2465 1540 / 1540 3370 / 3370 Output Total 360 / 360 450 / 450 750 / 750 Balance 2105 / 2105 1090 / 1090 2620 / 2620 Weight 103.8 kg Intake: IV 1625 / 1625 1300 / 1300 2650 / 2650 Cordarone Inj 450 MG In D5W Inj 250 / 250 241 ML @ 1 MG/MIN 33.33 mls/hr IV.CONT TITRATE PRN Rx#: [id number] Heparin/D5W 25,000 U/250 mL 25, 125 / 125 000 unit In 250 ml @ 1,000 UNITS/HR 10 mls/hr IV.CONT TITRATE PRN Rx#:[id number] LR 1000 mL Inj 1,000 ML @ 100 1000 / 1000 1000 / 1000 2000 / 2000 mls/hr IV.CONT .Q10H [facility] Rx#: [id number] Cordarone Inj 150 MG In D5W Inj 100 / 100 97 ML @ 600 mls/hr IV.SIG ONCE ONE Rx#:[id number] Maxipime Inj 1,000 MG In NS Inj 200 / 200 100 ML @ 200 mls/hr IV.SIG ONCE ONE Rx#:[id number] Maxipime Inj 2,000 MG In NS Inj 100 / 100 100 / 100 100 / 100 100 ML @ 200 mls/hr IV.SIG Q8H [facility] Rx#:[id number] Magnesium Sulfate Inj 2 GM In 100 / 100 NS Inj 96 ML @ 50 mls/hr IV.SIG ONCE ONE Rx#:[id number] Flagyl 500 MG Inj 100 ML @ 100 200 / 200 100 / 100 200 / 200 mls/hr IV.SIG Q8H [facility] Rx#: [id number] Oral 840 / 840 240 / 240 720 / 720 Output: Urine 360 / 360 450 / 450 750 / 750 Other: Date of Last Bowel Movement 03/20/18 03/20/18 Narrative: GENERAL: Obese, well-developed, not in acute distress SKIN: Cool and dry, no generalized rash HEAD: Atraumatic. Normocephalic. No temporal or scalp tenderness. EYES: Pupils equal round and reactive. Scleral icterus. No injection or drainage. No petechia ENT: Nothing abnormal detected NECK: Trachea midline. Supple, nontender, no meningeal signs. CARDIOVASCULAR: Irregularly irregular, tachycardic RESPIRATORY: Clear to auscultation bilaterally. GASTROINTESTINAL: Abdomen soft , obese, now tenderness on right flank and Right upper quadrant. MUSCULOSKELETAL: Extremities without clubbing, cyanosis. NEUROLOGICAL: Alert oriented 3. Nonfocal deficits. Results 03/20/18 04:06 03/20/18 04:06 Cardiac Enzymes 03/19/18 Range/Units 22:19 CK-MB (CK-2) 30.0 H (0.5-3.6) ng/mL Troponin I 14.30 H* (0.02-0.05) ng/mL Coagulation 03/19/18 03/20/18 03/20/18 Range/Units 20:36 00:02 04:06 PT 12.0 H 12.3 H (9.8-11.6) sec APTT 30.2 45.3 H D (23.4-31.7) sec 03/20/18 Range/Units 10:09 PT (9.8-11.6) sec APTT 36.1 H D (23.4-31.7) sec CBC 03/20/18 Range/Units 04:06 WBC 20.9 H D (4.0-11.0) th/mm3 RBC 4.36 L (4.50-5.90) mil/mm3 Hgb 12.6 L (13.0-17.0) gm/dL Hct 38.2 L (39.0-51.0) % Plt Count 186 (150-450) th/mm3 Neut # (Auto) 17.9 H (1.8-7.7) th/mm3 Lymph # (Auto) 1.3 (1.0-4.8) th/mm3 [place] # (Auto) 1.7 H (0.0-0.9) th/mm3 Eos # (Auto) 0.0 (0.0-0.4) th/mm3 Baso # (Auto) 0.1 (0.0-0.2) th/mm3 Comprehensive Metabolic Panel 03/20/18 Range/Units 04:06 Sodium 139 (136-145) meq/L Potassium 4.0 (3.5-5.1) meq/L Chloride 106 (98-107) meq/L Carbon Dioxide 24.9 (21.0-32.0) meq/L BUN 18 (7-18) mg/dL Creatinine 0.94 (0.60-1.30) mg/dL Calcium 8.3 L (8.5-10.1) mg/dL Intake and Output 03/21/18 03/21/18 03/21/18 06:59 14:59 22:59 Intake Total 1540 / 1540 1550 / 1550 1820 / 1820 Output Total 450 / 450 750 / 750 Balance 1090 / 1090 1550 / 1550 1070 / 1070 Intake: IV 1300 / 1300 1550 / 1550 1100 / 1100 Cordarone Inj 450 MG In D5W Inj 250 / 250 241 ML @ 1 MG/MIN 33.33 mls/hr IV.CONT TITRATE PRN Rx#: [id number] LR 1000 mL Inj 1,000 ML @ 100 1000 / 1000 1000 / 1000 1000 / 1000 mls/hr IV.CONT .Q10H [facility] Rx#: [id number] Cordarone Inj 150 MG In D5W Inj 100 / 100 97 ML @ 600 mls/hr IV.SIG ONCE ONE Rx#:[id number] Maxipime Inj 2,000 MG In NS Inj 100 / 100 100 / 100 100 ML @ 200 mls/hr IV.SIG Q8H [facility] Rx#:[id number] Magnesium Sulfate Inj 2 GM In 100 / 100 NS Inj 96 ML @ 50 mls/hr IV.SIG ONCE ONE Rx#:[id number] Flagyl 500 MG Inj 100 ML @ 100 100 / 100 100 / 100 100 / 100 mls/hr IV.SIG Q8H [facility] Rx#: [id number] Oral 240 / 240 720 / 720 Output: Urine 450 / 450 750 / 750 Other: Date of Last Bowel Movement 03/20/18 Weight 103.8 kg Assessment and Plan - Assessment (1) NSTEMI (non-ST elevated myocardial infarction) Code(s): I21.4 - Non-ST elevation (NSTEMI) myocardial infarction Status: Acute (2) Afib Code(s): I48.91 - Unspecified atrial fibrillation Status: Acute (3) SIRS (systemic inflammatory response syndrome) Code(s): R65.10 - Systemic inflammatory response syndrome (SIRS) of non- infectious origin without acute organ dysfunction Status: Acute (4) Intractable abdominal pain Code(s): R10.9 - Unspecified abdominal pain Status: Acute - Plan 1) Abdominal pain/nausea/emesis Agree possible mesenteric ischemia, CTA ordered GI following, will need EGD/Cscope Would place on hold until further work up at this time 2) NSTEMI Possible Type 2, although troponins are quite high Continue current work up, eventual cath if possible would be ideal 3) Afib New onset Continue on Amiodarone drip, rates better controlled 4) Bacteremia KELLY negative for vegetation, no signs of endocarditis
[2018-03-21] MEDS: Insulin Detemir Inj 1,000 UNIT/10 ML Vial SQ SCH (21:19)
[2018-03-21] MEDS: Heparin - SQ 10,000 UNITS/ML Vial SQ SCH (21:20)
[2018-03-22] MEDS: Insulin NovoLOG Aspart Correctional Sugar Inj SQ SCH ×5 (02:47→21:49)
--- NOTE | 2018-03-22 03:13 | CT ---
EXAM DATE: 03/22/2018 2:46 AM EST AGE/SEX: 67 years / Male INDICATIONS: Diffuse abdominal pain. CLINICAL DATA: This is the patient's initial encounter. Patient reports that signs and symptoms have been present for 2 days and indicates a pain score of 8/10. MEDICAL/SURGICAL HISTORY: Diabetes. Gastroesophageal reflux disease. Gastric bypass. RADIATION DOSE: 8.30 CTDI (mGy) COMPARISON: [facility] [place], CT ABDOMEN & PELVIS W/O CONTRAST, 03/19/2018. . TECHNIQUE: Volumetric scanning was performed using a multi-row detector CT scanner during bolus infu lisa of 100 ml Omnipaque 350 (iohexol) nonionic water-soluble contrast as a single exam dose. . The data was post processed with a variety of visualization algorithms including full volume maximum int ensity projection, multi-planar sliding thin slab reformation, curved planar reformation, and surface rendering techniques. Using automated exposure control and adjustment of the mA and/or kV according to patient size, radiation dose was kept as low as reasonably achievable to obtain optimal diagnosti c quality images. DICOM format image data is available electronically for review and comparison. FINDINGS: The abdominal aorta is widely patent. Iliacs are widely patent. The aortic visceral vessels are satis factory in appearance. Specifically, the celiac, SMA and renal arteries are widely patent. The MARIANNA is patent. In the pelvis, the hypogastrics are patent bilaterally. The common femoral arteries are heal thy in appearance and the visualized proximal thigh vessels are intact. Elsewhere on the exam, note is made of moderate distention of the gallbladder and multiple gallstones . There is moderate pericholecystic inflammatory change. The appearance has worsened since the prior exam. Elsewhere, note is again made of changes post previous gastric bypass. There is mild atelectasis in t he lung bases. CONCLUSION: 1. Prominent gallbladder distention and surrounding inflammatory changes consistent with cholecystit is 2. No acute vascular findings in the abdomen or pelvis. Electronically signed by: Elías Pickett MD 03/22/2018 3:11 AM EST
[2018-03-22] MEDS: Heparin - SQ 10,000 UNITS/ML Vial SQ SCH ×3 (05:39→21:51)
[2018-03-22] MEDS: Morphine Sulfate Inj 2 MG/ML Vial IV.PUSH PRN ×3 (08:16→21:47)
[2018-03-22] MEDS: Insulin Detemir Inj 1,000 UNIT/10 ML Vial SQ SCH ×2 (08:17→21:45)
[2018-03-22] MEDS: Senna/Docusate Sodium 8.6/50 MG Tablet PO SCH ×2 (08:17→21:46)
[2018-03-22] MEDS: Sodium Chloride 0.9% 2 ML Flush BID IV.FLUSH SCH ×2 (08:18→21:50)
[2018-03-22 10:29] LABS: Anion Gap 9 meq/L (5-15); Blood Urea Nitrogen 14 mg/dL (7-18); Calcium 7.9 mg/dL (8.5-10.1); Carbon Dioxide 25.2 meq/L (21.0-32.0); Chloride 104 meq/L (98-107); Glomerular Filtration Rate Greater Than 89 mL/min (>89); Glucose,Random 170 mg/dL (74-106); Potassium 3.5 meq/L (3.5-5.1); Sodium 138 meq/L (136-145)
--- NOTE | 2018-03-22 11:26 | P.PNGI ---
Subjective Interval history: Pt in bedside chair Complaining of continued abdominal pain, points to his RLQ, states it is now a 7 was a 10 However, pt does have a positive [place] sign Pt reports one episode of emesis this AM after breakfast Denies any nausea at present <Jennie Cordero - Last Filed: 03/22/18 11:16> Physical Exam Vital signs: Vital Signs 03/21/18 14:00 03/21/18 15:00 03/21/18 16:00 Temperature 98.0 F Pulse Rate 105 H 95 H 100 H Respiratory Rate 16 Blood Pressure 103/75 Pulse Oximetry 95 03/21/18 17:00 03/21/18 17:18 03/21/18 18:00 Temperature Pulse Rate 110 H 98 H Respiratory Rate Blood Pressure Pulse Oximetry 95 03/21/18 20:00 03/21/18 21:00 03/21/18 22:00 Temperature 98.9 F Pulse Rate 96 H 92 H 92 H Respiratory Rate 20 Blood Pressure 109/65 Pulse Oximetry 95 03/21/18 23:00 03/22/18 00:00 03/22/18 01:00 Temperature 98.9 F Pulse Rate 92 H 85 86 Respiratory Rate 20 Blood Pressure 110/70 Pulse Oximetry 94 L 03/22/18 02:00 03/22/18 03:00 03/22/18 04:00 Temperature 98.9 F Pulse Rate 86 80 82 Respiratory Rate 20 Blood Pressure 112/68 Pulse Oximetry 97 03/22/18 05:00 03/22/18 06:00 03/22/18 07:00 Temperature Pulse Rate 82 85 83 Respiratory Rate Blood Pressure Pulse Oximetry 03/22/18 08:00 03/22/18 09:00 03/22/18 10:00 Temperature 97.8 F Pulse Rate 84 85 99 H Respiratory Rate 18 Blood Pressure 117/70 Pulse Oximetry 94 L Intake & Output 03/21/18 03/22/18 03/22/18 18:59 06:59 18:59 Intake Total 3370 / 3370 690 / 690 200 / 200 Output Total 750 / 750 600 / 600 Balance 2620 / 2620 90 / 90 200 / 200 Intake: IV 2650 / 2650 450 / 450 200 / 200 Cordarone Inj 450 MG In D5W Inj 250 / 250 250 / 250 241 ML @ 1 MG/MIN 33.33 mls/hr IV.CONT TITRATE PRN Rx#: [id number] LR 1000 mL Inj 1,000 ML @ 100 2000 / 2000 mls/hr IV.CONT .Q10H [facility] Rx#: [id number] Maxipime Inj 2,000 MG In NS Inj 100 / 100 100 / 100 100 / 100 100 ML @ 200 mls/hr IV.SIG Q8H [facility] Rx#:[id number] Magnesium Sulfate Inj 2 GM In 100 / 100 NS Inj 96 ML @ 50 mls/hr IV.SIG ONCE ONE Rx#:[id number] Flagyl 500 MG Inj 100 ML @ 100 200 / 200 100 / 100 100 / 100 mls/hr IV.SIG Q8H [facility] Rx#: [id number] Oral 720 / 720 240 / 240 Output: Urine 750 / 750 600 / 600 Other: # Voids 2 Date of Last Bowel Movement 03/20/18 - Constitutional no acute distress - Routine HEENT Exam Head: Present: normocephalic, atraumatic - Routine Respiratory Exam Absent: accessory muscle use - Routine Cardiovascular Exam Present: irregularly irregular - Routine Abdominal Exam Present: soft, normoactive bowel sounds, tenderness. Absent: distended Comments: (+) [place] sign - Routine Skin Exam Present: dry, warm - Routine Neurological Exam Present: alert, oriented X3 <Jennie Cordero - Last Filed: 03/22/18 11:16> Vital signs: Vital Signs 03/21/18 20:00 03/21/18 21:00 03/21/18 22:00 Temperature 98.9 F Pulse Rate 96 H 92 H 92 H Respiratory Rate 20 Blood Pressure 109/65 Pulse Oximetry 95 03/21/18 23:00 03/22/18 00:00 03/22/18 01:00 Temperature 98.9 F Pulse Rate 92 H 85 86 Respiratory Rate 20 Blood Pressure 110/70 Pulse Oximetry 94 L 03/22/18 02:00 03/22/18 03:00 03/22/18 04:00 Temperature 98.9 F Pulse Rate 86 80 82 Respiratory Rate 20 Blood Pressure 112/68 Pulse Oximetry 97 03/22/18 05:00 03/22/18 06:00 03/22/18 07:00 Temperature Pulse Rate 82 85 83 Respiratory Rate Blood Pressure Pulse Oximetry 03/22/18 08:00 03/22/18 09:00 03/22/18 10:00 Temperature 97.8 F Pulse Rate 84 85 99 H Respiratory Rate 18 Blood Pressure 117/70 Pulse Oximetry 94 L 03/22/18 11:00 03/22/18 12:00 03/22/18 13:00 Temperature 97.9 F Pulse Rate 87 98 H 97 H Respiratory Rate 18 Blood Pressure 112/69 Pulse Oximetry 98 03/22/18 14:00 03/22/18 16:00 03/22/18 17:00 Temperature 98.1 F Pulse Rate 92 H 87 81 Respiratory Rate 18 Blood Pressure 121/64 Pulse Oximetry 95 03/22/18 18:00 Temperature Pulse Rate 83 Respiratory Rate Blood Pressure Pulse Oximetry Intake & Output 03/22/18 03/22/18 03/23/18 06:59 18:59 06:59 Intake Total 690 / 690 2370 / 2370 Output Total 600 / 600 600 / 600 Balance 90 / 90 1770 / 1770 Intake: IV 450 / 450 1650 / 1650 Cordarone Inj 450 MG In D5W Inj 250 / 250 250 / 250 241 ML @ 1 MG/MIN 33.33 mls/hr IV.CONT TITRATE PRN Rx#: [id number] LR 1000 mL Inj 1,000 ML @ 100 1000 / 1000 mls/hr IV.CONT .Q10H [facility] Rx#: [id number] Maxipime Inj 2,000 MG In NS Inj 100 / 100 200 / 200 100 ML @ 200 mls/hr IV.SIG Q8H [facility] Rx#:[id number] Flagyl 500 MG Inj 100 ML @ 100 100 / 100 200 / 200 mls/hr IV.SIG Q8H [facility] Rx#: [id number] Oral 240 / 240 720 / 720 Output: Urine 600 / 600 600 / 600 Other: # Voids 2 Date of Last Bowel Movement 03/20/18 <Kimmie Calvo - Last Filed: 03/22/18 19:29> Results - Labs CBC & Chem 7: 03/20/18 04:06 03/22/18 09:25 Laboratory Results - last 24 hr 03/21/18 03/21/18 03/21/18 15:05 16:15 21:04 Sodium Potassium Chloride Carbon Dioxide Anion Gap BUN Creatinine Estimated GFR POC Glucose 268 H 245 H Random Glucose Calcium Carcinoembryonic Ag 2.2 03/22/18 03/22/18 03/22/18 02:45 07:58 09:25 Sodium 138 Potassium 3.5 Chloride 104 Carbon Dioxide 25.2 Anion Gap 9 BUN 14 Creatinine 0.67 Estimated GFR Greater than 89 POC Glucose 163 H 139 H Random Glucose 170 H Calcium 7.9 L Carcinoembryonic Ag Microbiology 03/20/18 22:20 Blood - Peripheral Aerobic Blood Culture - Preliminary No growth in 2 days 03/20/18 22:20 Blood - Peripheral Anaerobic Blood Culture - Final QNS - See aerobic report. 03/20/18 22:15 Blood - Peripheral Aerobic Blood Culture - Preliminary No growth in 2 days 03/20/18 22:15 Blood - Peripheral Anaerobic Blood Culture - Final QNS - See aerobic report. 03/19/18 15:50 Blood - Peripheral Aerobic Blood Culture - Final Klebsiella pneumoniae Escherichia coli 03/19/18 15:50 Blood - Peripheral Anaerobic Blood Culture - Preliminary No growth in 3 days 03/19/18 15:45 Blood - Peripheral Aerobic Blood Culture - Final Klebsiella pneumoniae 03/19/18 15:45 Blood - Peripheral Anaerobic Blood Culture - Final Klebsiella pneumoniae - Imaging Impressions Abdomen/Pelvis CTA 03/22/18 00:00 CONCLUSION: 1. Prominent gallbladder distention and surrounding inflammatory changes consistent with cholecystitis 2. No acute vascular findings in the abdomen or pelvis. - Procedures None <Jennie Cordero - Last Filed: 03/22/18 11:16> - Labs CBC & Chem 7: 03/20/18 04:06 03/22/18 09:25 Laboratory Results - last 24 hr 03/21/18 03/22/18 03/22/18 21:04 02:45 07:58 Sodium Potassium Chloride Carbon Dioxide Anion Gap BUN Creatinine Estimated GFR POC Glucose 245 H 163 H 139 H Random Glucose Calcium 03/22/18 03/22/18 03/22/18 09:25 11:11 16:00 Sodium 138 Potassium 3.5 Chloride 104 Carbon Dioxide 25.2 Anion Gap 9 BUN 14 Creatinine 0.67 Estimated GFR Greater than 89 POC Glucose 191 H 281 H Random Glucose 170 H Calcium 7.9 L Microbiology 03/20/18 22:20 Blood - Peripheral Aerobic Blood Culture - Preliminary No growth in 2 days 03/20/18 22:20 Blood - Peripheral Anaerobic Blood Culture - Final QNS - See aerobic report. 03/20/18 22:15 Blood - Peripheral Aerobic Blood Culture - Preliminary No growth in 2 days 03/20/18 22:15 Blood - Peripheral Anaerobic Blood Culture - Final QNS - See aerobic report. 03/19/18 15:50 Blood - Peripheral Aerobic Blood Culture - Final Klebsiella pneumoniae Escherichia coli 03/19/18 15:50 Blood - Peripheral Anaerobic Blood Culture - Preliminary No growth in 3 days - Imaging Impressions Abdomen/Pelvis CTA 03/22/18 00:00 CONCLUSION: 1. Prominent gallbladder distention and surrounding inflammatory changes consistent with cholecystitis 2. No acute vascular findings in the abdomen or pelvis. <Kimmie Calvo - Last Filed: 03/22/18 19:29> Assessment and Plan (1) Intractable abdominal pain Status: Acute Code(s): R10.9 - Unspecified abdominal pain - Plan Assessment: - Colon wall thickening- CT abdomen and pelvis (03/19) Short segmental concentric wall thickening is identified in the distal descending colon. Colon malignancy needs to be excluded. Calcified gallstones with moderate distention of the gallbladder. Patient states last EGD/colonoscopy was done in 2006 prior to gastric bypass surgery. Reportedly normal exam. Family history of gastric cancer-he states his brother of gastric cancer at the age of 3838 years old. EGD/colonoscopy recommended when pt is cleared by cardiology and is stable - Acute cholecystitis - CTA abd/pelvis done to rule out mesenteric ischemia yesterday CTA abd/pelvis (03/22) Prominent gallbladder distention and surrounding inflammatory changes consistent with cholecystitis No acute vascular findings in the abdomen or pelvis. Pt likely poor surgical candidate, GS has been consulted and input is pending. Anticipate possible cholecystostomy drain - Klebsiella Pneumoniae bacteremia- ID following to determine etiology. KELLY negative for vegetation. Suspect secondary to acute cholecystitis - A-fib with RVR and elevated troponin- now rate controlled, on Amiodarone gtt, on Heparin- cardiology following Plan: GS consult ? burt drain if poor surgical candidate Continue abx per ID NPO EGD/colonoscopy later when stable Further recommendations pending course Pt has been seen and examined by myself and Dr. Calvo and this note is written on her behalf <Jennie Cordero - Last Filed: 03/22/18 11:16> (1) Intractable abdominal pain Status: Acute Code(s): R10.9 - Unspecified abdominal pain - Attending Attestation seen, examined s/p cholecystostomy tube Discussed with surgery and cardiology Initially egd/colon scheduled for am , discussed with cardiology would like us to wait and schedule procedure after cardiac cath- <Kimmie Calvo - Last Filed: 03/22/18 19:29>
--- NOTE | 2018-03-22 11:54 | P.PN ---
Subjective Interval history: This is a pleasant 67 y/o Male who was brought in to Emergency Department via EMS for nausea, vomiting, and abdominal pain. The patient was awakened at 6 AM with left-sided flank pain and left mid back pain radiating to the left lower quadrant. The patient then developed nausea and vomiting secondary to the pain. The patient denies any hematuria, dysuria, frequency, or dark colored urine. The pain is described as sharp, stabbing, starting in left flank and radiating to the left lower quadrant. The patient denies any history of nephrolithiasis or diverticulitis, does have a previous history of gastric bypass. The patient denies any fever, chills, or sweats. Symptoms are moderate to severe, there are no current alleviating factors, and there are no known exacerbating factors.as constant pain, 10/10 in intensity stabbing and sharp sensation, on LLQ, non radiated. he has DM II, GERD, Hyperlipidemia. Discussed with ER physician face to face Doctor Jese Espinal appreciated input and recommendations the patient has probable Sepsis has Tachycardia, Leukocytosis and probable focus in his large bowel. he continue with Pain, will cover with Cefepime and Flagyl and follow with GI specialist, following blood cultures. 03/20: Seen by GI specialist early in am, he had EGD and Colonoscopy in 2006 previous to Gastric bypass surgery, CT abdomen and Pelvis reveals thickening of the distal descending colon and our service has been consulted to evaluate patient for suspected colon mass/colitis, recommended to continue antibiotics, PPIs, Endoscopy once stable, found early with positive blood cultures for Gram negative rods, Klebsiella pneumonia, Enterobacter species, Discussed with ID specialist doctor Catrina Sanchez, and with personal protection specialist Doctor Bernardino Pérez, repeated blood cultures, recommended not to perform KELLY at this time or Colonoscopy continue Cefepime and Flagyl, follow cultures. 03/21: Seen in his bedroom, discussed with nurse Miss Peñaloza at this time came from [facility], also seen by GI specialist recommended EGD and Colonoscopy once patient is stable. 03/22: On Cefepime and Flagyl, following blood cultures, as per GI specialist recommended for CTA abdomen ruled out Mesenteric Ischemia but found cholecystitis, his KELLY was negative, GI specialist recommended for General surgery consult thinking in Cholecystostomy for drainage if poor surgical candidate, at this time NPO, EGD and Colonoscopy once more stable. no nausea, vomit or diarrhea. Physical Exam Vital signs: Vital Signs 03/21/18 14:00 03/21/18 15:00 03/21/18 16:00 Temperature 98.0 F Pulse Rate 105 H 95 H 100 H Respiratory Rate 16 Blood Pressure 103/75 Pulse Oximetry 95 03/21/18 17:00 03/21/18 17:18 03/21/18 18:00 Temperature Pulse Rate 110 H 98 H Respiratory Rate Blood Pressure Pulse Oximetry 95 03/21/18 20:00 03/21/18 21:00 03/21/18 22:00 Temperature 98.9 F Pulse Rate 96 H 92 H 92 H Respiratory Rate 20 Blood Pressure 109/65 Pulse Oximetry 95 03/21/18 23:00 03/22/18 00:00 03/22/18 01:00 Temperature 98.9 F Pulse Rate 92 H 85 86 Respiratory Rate 20 Blood Pressure 110/70 Pulse Oximetry 94 L 03/22/18 02:00 03/22/18 03:00 03/22/18 04:00 Temperature 98.9 F Pulse Rate 86 80 82 Respiratory Rate 20 Blood Pressure 112/68 Pulse Oximetry 97 03/22/18 05:00 03/22/18 06:00 03/22/18 07:00 Temperature Pulse Rate 82 85 83 Respiratory Rate Blood Pressure Pulse Oximetry 03/22/18 08:00 03/22/18 09:00 03/22/18 10:00 Temperature 97.8 F Pulse Rate 84 85 99 H Respiratory Rate 18 Blood Pressure 117/70 Pulse Oximetry 94 L 03/22/18 11:00 Temperature Pulse Rate 87 Respiratory Rate Blood Pressure Pulse Oximetry Intake & Output 03/21/18 03/22/18 03/22/18 18:59 06:59 18:59 Intake Total 3370 / 3370 690 / 690 200 / 200 Output Total 750 / 750 600 / 600 Balance 2620 / 2620 90 / 90 200 / 200 Intake: IV 2650 / 2650 450 / 450 200 / 200 Cordarone Inj 450 MG In D5W Inj 250 / 250 250 / 250 241 ML @ 1 MG/MIN 33.33 mls/hr IV.CONT TITRATE PRN Rx#: [id number] LR 1000 mL Inj 1,000 ML @ 100 2000 / 2000 mls/hr IV.CONT .Q10H [facility] Rx#: [id number] Maxipime Inj 2,000 MG In NS Inj 100 / 100 100 / 100 100 / 100 100 ML @ 200 mls/hr IV.SIG Q8H [facility] Rx#:[id number] Magnesium Sulfate Inj 2 GM In 100 / 100 NS Inj 96 ML @ 50 mls/hr IV.SIG ONCE ONE Rx#:[id number] Flagyl 500 MG Inj 100 ML @ 100 200 / 200 100 / 100 100 / 100 mls/hr IV.SIG Q8H [facility] Rx#: [id number] Oral 720 / 720 240 / 240 Output: Urine 750 / 750 600 / 600 Other: # Voids 2 Date of Last Bowel Movement 03/20/18 Narrative: GENERAL: Obese, well-developed, not in acute distress SKIN: Cool and dry, no generalized rash HEAD: Atraumatic. Normocephalic. No temporal or scalp tenderness. EYES: Pupils equal round and reactive. Scleral icterus. No injection or drainage. No petechia ENT: Nothing abnormal detected NECK: Trachea midline. Supple, nontender, no meningeal signs. CARDIOVASCULAR: HS audible. RESPIRATORY: Clear to auscultation bilaterally. GASTROINTESTINAL: Abdomen soft , obese, now tenderness on right flank and Right upper quadrant. MUSCULOSKELETAL: Extremities without clubbing, cyanosis. NEUROLOGICAL: Alert oriented 3. Nonfocal deficits. Results - Labs CBC & Chem 7: 03/20/18 04:06 03/22/18 09:25 Laboratory Results - last 24 hr 03/21/18 03/21/18 03/21/18 15:05 16:15 21:04 Sodium Potassium Chloride Carbon Dioxide Anion Gap BUN Creatinine Estimated GFR POC Glucose 268 H 245 H Random Glucose Calcium Carcinoembryonic Ag 2.2 03/22/18 03/22/18 03/22/18 02:45 07:58 09:25 Sodium 138 Potassium 3.5 Chloride 104 Carbon Dioxide 25.2 Anion Gap 9 BUN 14 Creatinine 0.67 Estimated GFR Greater than 89 POC Glucose 163 H 139 H Random Glucose 170 H Calcium 7.9 L Carcinoembryonic Ag 03/22/18 11:11 Sodium Potassium Chloride Carbon Dioxide Anion Gap BUN Creatinine Estimated GFR POC Glucose 191 H Random Glucose Calcium Carcinoembryonic Ag Microbiology 03/20/18 22:20 Blood - Peripheral Aerobic Blood Culture - Preliminary No growth in 2 days 03/20/18 22:20 Blood - Peripheral Anaerobic Blood Culture - Final QNS - See aerobic report. 03/20/18 22:15 Blood - Peripheral Aerobic Blood Culture - Preliminary No growth in 2 days 03/20/18 22:15 Blood - Peripheral Anaerobic Blood Culture - Final QNS - See aerobic report. 03/19/18 15:50 Blood - Peripheral Aerobic Blood Culture - Final Klebsiella pneumoniae Escherichia coli 03/19/18 15:50 Blood - Peripheral Anaerobic Blood Culture - Preliminary No growth in 3 days 03/19/18 15:45 Blood - Peripheral Aerobic Blood Culture - Final Klebsiella pneumoniae 03/19/18 15:45 Blood - Peripheral Anaerobic Blood Culture - Final Klebsiella pneumoniae - Imaging Impressions Abdomen/Pelvis CTA 03/22/18 00:00 CONCLUSION: 1. Prominent gallbladder distention and surrounding inflammatory changes consistent with cholecystitis 2. No acute vascular findings in the abdomen or pelvis. - Procedures None Assessment and Plan - Plan 1. Intractable Abdominal pain continue cardiac telemetry monitoring and continuous pulse oximetry monitoring. white count was mildly elevated at 13.6, lactic acid was normal at 2.0. Glucose was mildly elevated at 218. CT of the abdomen and pelvis reveals Short segmental concentric wall thickening is identified in the distal descending colon. Colon malignancy needs to be excluded. no acute inflammation. continue tachycardic was started on antibiotics in ER, for empiric coverage with Cefepime asked for GI specialist consult. ECG sinus tachycardia. started on Cefepime and Flagyl. Culture positive for Klebsiella Pneumonia. Probable Cholecystitis asked for General Surgery for Cholecystostomy tube placement. 2. Hyperlipidemia continue Home medicines. 3. SIRS at this time has tachycardia and leukocytosis, 4. DM II Uncontrolled started on Levemir 5 units BID and increased to sliding scale Medium dose. 5. GERD on PPIs. 6. NSTEMI at this time having his KELLY, as per personal protection specialist the Troponin elevation may be secondary to Sepsis and possible endocarditis, on hold all possible Cardiac Procedures, KELLY negative for vegetation. 7. Hypokalemia replaced asked for magnesium level. DVT prophylaxis with Heparin Code Status: Full Code. Discussed Condition With: Patient and nurse Miss Mendoza. Discharge Planning: Once cleared by specialists.
--- NOTE | 2018-03-22 12:06 | P.PNID ---
Subjective Remarks: ID coverage. Mr. Bridges is a 67-year-old male patient who presented to the emergency room on March 19, 2018. Patient initially reported nausea vomiting as well as abdominal pain on admission. Of note patient's past medical history significant for gastric bypass surgery many years back. Patient also has a history of type 2 diabetes, GERD, hyperlipidemia as well as morbid obesity. Condition he reports chronic lower back pain as well as arthritis. Patient reports that his abdominal pain started in the left lower quadrant associated with nausea and vomiting of clear emesis. He reports that he was still vomiting until yesterday and vomiting has now resolved. He continues to have abdominal pain. Patient denied any fever chills or night sweats prior to admission. Patient reports that his last EGD and colonoscopy was in 2006 prior to gastric bypass surgery. Patient reports he has lost a total of 257 pounds since he has had surgery. Patient was asked to have a repeat colonoscopy in 10 years if there were no abnormal findings. He denies any use of alcohol or tobacco products recently but has used in the past. He reports that his mother had gastric cancer in his brother also had a gastric cancer at the age of 38 years. He denies any hematemesis or any black tarry stools or fresh blood in stool. Patient reports that he has a bowel movement every 1-2 days. He denies any history of constipation and diarrhea. A CT of the abdomen pelvis done on admission reveals thickening of the distal descending colon and there is a concern for colonic mass and therefore GI has been consulted. Due to elevated troponins cardiology has also been called and there is a plan for KELLY and possibly a cardiac cath in the future. Blood cultures drawn and admission are positive for gram-negative rods and infectious diseases consulted for evaluation and management of the same. Notes reviewed. Patient appears comfortable. He is complaining of complaining of pain in his right abdomen. Afebrile. Denies fever or chills. Blood cultures pending. KELLY negative. CT scan of the abdomen consistent with cholecystitis Antibiotics: cefepime IV Flagyl IV Lines: Lines ok Past Medical History: reviewed Allergies/Adverse Reactions: Allergies No Known Allergies Allergy (Verified 03/19/18 10:28) Objective Vital Signs 03/21/18 14:00 03/21/18 15:00 03/21/18 16:00 Temperature 98.0 F Pulse Rate 105 H 95 H 100 H Respiratory Rate 16 Blood Pressure 103/75 Pulse Oximetry 95 03/21/18 17:00 03/21/18 17:18 03/21/18 18:00 Temperature Pulse Rate 110 H 98 H Respiratory Rate Blood Pressure Pulse Oximetry 95 03/21/18 20:00 03/21/18 21:00 03/21/18 22:00 Temperature 98.9 F Pulse Rate 96 H 92 H 92 H Respiratory Rate 20 Blood Pressure 109/65 Pulse Oximetry 95 03/21/18 23:00 03/22/18 00:00 03/22/18 01:00 Temperature 98.9 F Pulse Rate 92 H 85 86 Respiratory Rate 20 Blood Pressure 110/70 Pulse Oximetry 94 L 03/22/18 02:00 03/22/18 03:00 03/22/18 04:00 Temperature 98.9 F Pulse Rate 86 80 82 Respiratory Rate 20 Blood Pressure 112/68 Pulse Oximetry 97 03/22/18 05:00 03/22/18 06:00 03/22/18 07:00 Temperature Pulse Rate 82 85 83 Respiratory Rate Blood Pressure Pulse Oximetry 03/22/18 08:00 03/22/18 09:00 03/22/18 10:00 Temperature 97.8 F Pulse Rate 84 85 99 H Respiratory Rate 18 Blood Pressure 117/70 Pulse Oximetry 94 L 03/22/18 11:00 Temperature Pulse Rate 87 Respiratory Rate Blood Pressure Pulse Oximetry Intake & Output 03/21/18 03/22/18 03/22/18 18:59 06:59 18:59 Intake Total 3370 / 3370 690 / 690 200 / 200 Output Total 750 / 750 600 / 600 Balance 2620 / 2620 90 / 90 200 / 200 Intake: IV 2650 / 2650 450 / 450 200 / 200 Cordarone Inj 450 MG In D5W Inj 250 / 250 250 / 250 241 ML @ 1 MG/MIN 33.33 mls/hr IV.CONT TITRATE PRN Rx#: [id number] LR 1000 mL Inj 1,000 ML @ 100 2000 / 2000 mls/hr IV.CONT .Q10H [facility] Rx#: [id number] Maxipime Inj 2,000 MG In NS Inj 100 / 100 100 / 100 100 / 100 100 ML @ 200 mls/hr IV.SIG Q8H [facility] Rx#:[id number] Magnesium Sulfate Inj 2 GM In 100 / 100 NS Inj 96 ML @ 50 mls/hr IV.SIG ONCE ONE Rx#:[id number] Flagyl 500 MG Inj 100 ML @ 100 200 / 200 100 / 100 100 / 100 mls/hr IV.SIG Q8H [facility] Rx#: [id number] Oral 720 / 720 240 / 240 Output: Urine 750 / 750 600 / 600 Other: # Voids 2 Date of Last Bowel Movement 03/20/18 03/20/18 22:20 Blood - Peripheral Aerobic Blood Culture - Preliminary No growth in 2 days 03/20/18 22:20 Blood - Peripheral Anaerobic Blood Culture - Final QNS - See aerobic report. 03/20/18 22:15 Blood - Peripheral Aerobic Blood Culture - Preliminary No growth in 2 days 03/20/18 22:15 Blood - Peripheral Anaerobic Blood Culture - Final QNS - See aerobic report. 03/19/18 15:50 Blood - Peripheral Aerobic Blood Culture - Final Klebsiella pneumoniae Escherichia coli 03/19/18 15:50 Blood - Peripheral Anaerobic Blood Culture - Preliminary No growth in 3 days 03/19/18 15:45 Blood - Peripheral Aerobic Blood Culture - Final Klebsiella pneumoniae 03/19/18 15:45 Blood - Peripheral Anaerobic Blood Culture - Final Klebsiella pneumoniae 03/19/18 16:15 Nasal Wash Influenza Types A,B Antigen - Final Negative for FLU A and B antigen Infection due to influenza A or B cannot be ruled out since the antigen present in the sample may be below the detection limit of the test. Lab - Chemistry Results 03/19/18 03/20/18 03/20/18 15:53 12:08 16:43 Sodium Potassium Chloride Carbon Dioxide Anion Gap BUN Creatinine Estimated GFR POC Glucose 170 H 199 H Random Glucose Hemoglobin A1c 6.9 H Calcium Carcinoembryonic Ag 03/20/18 03/21/18 03/21/18 20:23 03:11 07:47 Sodium Potassium Chloride Carbon Dioxide Anion Gap BUN Creatinine Estimated GFR POC Glucose 314 H 198 H 237 H Random Glucose Hemoglobin A1c Calcium Carcinoembryonic Ag 03/21/18 03/21/18 03/21/18 15:05 16:15 21:04 Sodium Potassium Chloride Carbon Dioxide Anion Gap BUN Creatinine Estimated GFR POC Glucose 268 H 245 H Random Glucose Hemoglobin A1c Calcium Carcinoembryonic Ag 2.2 03/22/18 03/22/18 03/22/18 02:45 07:58 09:25 Sodium 138 Potassium 3.5 Chloride 104 Carbon Dioxide 25.2 Anion Gap 9 BUN 14 Creatinine 0.67 Estimated GFR Greater than 89 POC Glucose 163 H 139 H Random Glucose 170 H Hemoglobin A1c Calcium 7.9 L Carcinoembryonic Ag 03/22/18 11:11 Sodium Potassium Chloride Carbon Dioxide Anion Gap BUN Creatinine Estimated GFR POC Glucose 191 H Random Glucose Hemoglobin A1c Calcium Carcinoembryonic Ag Imaging: ITS Impressions Abdomen/Pelvis CT 03/19/18 10:38 CONCLUSION: 1. Short segmental concentric wall thickening is identified in the distal descending colon. Colon malignancy needs to be excluded. 2. Calcified gallstones with moderate distention of the gallbladder. 3. No other significant abnormality. Chest CTA 03/19/18 13:37 CONCLUSION: 1. No evidence of acute pulmonary embolism. 2. Mild subpleural airspace disease and reticulations which may be chronic. 3. No evidence of segmental or lobar lung consolidation. Abdomen/Pelvis CTA 03/22/18 00:00 CONCLUSION: 1. Prominent gallbladder distention and surrounding inflammatory changes consistent with cholecystitis 2. No acute vascular findings in the abdomen or pelvis. Physical Exam: GENERAL: Obese, well-developed, not in acute distress SKIN: Cool and dry, no generalized rash HEAD: Atraumatic. Normocephalic. No temporal or scalp tenderness. EYES: Pupils equal round and reactive. Scleral icterus. No injection or drainage. No petechia ENT: Nothing abnormal detected NECK: Trachea midline. Supple, nontender, no meningeal signs. CARDIOVASCULAR: HS audible. RESPIRATORY: Clear to auscultation bilaterally. GASTROINTESTINAL: Abdomen soft , obese, tenderness in the right lower quadrant and right upper quadrant. MUSCULOSKELETAL: Extremities without clubbing, cyanosis or edema. NEUROLOGICAL: Alert oriented 3. Nonfocal. Psych cooperative IV line sites ok. Assessment and Plan - Plan Sepsis present on admission Gram-negative bacteremia E. coli and Klebsiella pneumonia isolated. Abnormal CT scan indicating cholecystitis which is likely the source of the sepsis. Leukocytosis. White blood cell count elevated. Non-ST elevation MN likely secondary to sepsis cardiology on board -KELLY negative. Recommendations: Continue cefepime IV at every 8 hours dosing until all gram negatives identified Continue Flagyl IV for now until blood cultures finalized. Follow blood cultures. Follow clinical course Discussed with patient.
[2018-03-22] MEDS ORDERED: Amiodarone Inj 150 MG in Dextrose 5% in Water Inj 97 ML IV.SIG ONE ×2 (14:00)
[2018-03-22] MEDS ORDERED: fentaNYL Citrate Inj 250 MCG/5 ML Ampul ONE (14:26)
--- NOTE | 2018-03-22 15:29 | P.RAD ---
Post Procedure Progress Note - Pre Procedure Diagnosis (1) Cholecystitis - Post Procedure Diagnosis (1) Cholecystitis - Procedure Information Procedure Date: 03/22/18 Supervising Radiologist: Konstantin Owen MD Estimated blood loss (mL): 0 Anesthesia: Local, Analgesia - Plan of Activity Patient to Unit: Nursing Unit Patient Condition: Poor Additional Comments: Cholecystomy completed. 8 faroese tube placed. Copious amounts of black bile and thick sludge aspirated from the gallbladder. Full dictated report to follow See PACS Report for procedural detail/treatment.
[2018-03-22] MEDS: Magnesium Oxide 400 MG Tablet PO SCH ×2 (15:51→21:46)
[2018-03-22] MEDS ORDERED: Magnesium Citrate Liq 300 ML Bottle PO ONE ×3 (17:57→19:00)
--- NOTE | 2018-03-22 18:39 | P.CON ---
History of Present Illness Consult date: 03/22/18 Reason for Consult: Colonic thickening and abdominal pain Primary Care Provider: Eusebio Chacko MD Chief Complaint: Abdominal Pain History of Present Illness: Patient is a 67-year-old male who came into the emergency department on 03/19 with nausea, vomiting and abdominal pain. The patient reported that this began on that day and was constant. He describes it as diffuse. Patient has multiple other medical problems including morbid obesity, non-insulin- dependent diabetes, GE reflux disease, hyperlipidemia. Patient has never had pain like this before. CT scan obtained that day demonstrated concentric thickening of the descending colon with concern for inflammatory process versus a neoplastic process. GI consult was recommended. Since that time the patient is continued to have pain and there was some concern regarding mesenteric ischemia as lactate levels were slightly elevated briefly. Patient was resuscitated and CTA was negative for vascular disease. However, CT scan performed today demonstrates thickened gallbladder wall and concern for acute cholecystitis instead. There is no mention of colonic inflammation or thickening on today's exam. [facility] - History History Provided By: Patient - Medical History Medical History: Medical History (Last Reviewed 03/21/18 @ 08:13 by Raffaele Gan, PT) Diabetes GERD (gastroesophageal reflux disease) Hypercholesteremia - Surgical History Surgical History: Surgical History (Last Reviewed 03/21/18 @ 19:52 by Kimmie Calvo MD) H/O gastric bypass - Tobacco History Second Hand Smoke Exposure: Yes Tobacco Use In Past 30 Days: No Smoking Status: Former smoker - Alcohol History How Often Do You Have a Drink Containing Alcohol: Never - Substance Use History Substance History: No History of Abuse - Travel History Recent Travel in the [place] Within the Last 8 Weeks: No Recent Travel Out of the Country Within the Last 8 Weeks: No - Immunization History Tetanus Immunization: Unsure Hx Influenza Vaccine This Season: No Medications and Allergies Active Medications: Active Medications Acetaminophen (Tylenol) 650 mg PO Q4H PRN PRN Reason: Temp > 100.4 Al Hydroxide/Mg Hydroxide (Milk Of Magnesia Liq) 30 ml PO Q12H PRN PRN Reason: Mild Constipation Bisacodyl (Dulcolax Supp) 10 mg RECTAL DAILY PRN PRN Reason: SEVERE CONSITIPATION Dextrose (D50w Vial) 50 ml IV.PUSH UNSCH PRN PRN Reason: PER HYPOGLYCEMIA PROTOCOL Glucagon (Glucagon Inj) 1 mg OTHER PRN PRN PRN Reason: for Hypoglycemia Protocol Heparin Sodium (Porcine) (Heparin Inj) 5,000 units SQ Q8HR [facility] Last Admin: 03/22/18 13:07 Dose: Not Given Lactated Ringer's (Lr 1000 Ml Inj) 1,000 mls @ 100 mls/hr IV.CONT .Q10H [facility] Last Admin: 03/22/18 13:26 Dose: Not Given Metronidazole/Sodium Chloride (Flagyl 500 Mg Inj) 100 mls @ 100 mls/hr IV.SIG Q8H [facility] Last Infusion: 03/22/18 17:05 Dose: Infused Cefepime HCl 2,000 mg/ Sodium (Chloride) 100 mls @ 200 mls/hr IV.SIG Q8H [facility] Last Infusion: 03/22/18 17:05 Dose: Infused Amiodarone HCl 450 mg/ (Dextrose) 250 mls @ 33.33 mls/hr IV.CONT TITRATE PRN; Protocol PRN Reason: Per Protocol Last Admin: 03/22/18 13:48 Dose: 0.5 mg/min, 16.66 mls/hr Insulin Aspart (Novolog Insulin Correctional Sugar Inj) 0 unit SQ 08,12,17,21, 03 [facility]; Protocol Last Admin: 03/22/18 16:03 Dose: 7 unit Insulin Detemir (Levemir Inj) 5 unit SQ BID [facility] Last Admin: 03/22/18 08:17 Dose: 5 unit Lactulose (Lactulose Liq) 30 ml PO DAILY PRN PRN Reason: SEVERE CONSITIPATION Magnesium Citrate (Citroma Liq) 300 ml PO ONCE ONE Stop: 03/23/18 06:01 Magnesium Oxide (Mag-Ox) 400 mg PO BID [facility] Last Admin: 03/22/18 15:51 Dose: 400 mg Morphine Sulfate (Morphine Inj) 2 mg IV.PUSH Q3H PRN PRN Reason: PAIN SCALE 6 TO 10 Last Admin: 03/22/18 12:38 Dose: 2 mg Ondansetron HCl (Zofran Inj) 4 mg IV.PUSH Q6H PRN PRN Reason: NAUSEA OR VOMITING Last Admin: 03/22/18 08:18 Dose: 4 mg Pantoprazole Sodium (Protonix) 40 mg PO DAILY [facility] Last Admin: 03/22/18 08:17 Dose: 40 mg Senna/Docusate Sodium (Carlotta-Colace) 1 tab PO BID [facility] Last Admin: 03/22/18 08:17 Dose: 1 tab Sennosides (Senokot) 17.2 mg PO Q12H PRN PRN Reason: Moderate Constipation Sodium Chloride (Ns Flush) 2 ml IV.FLUSH BID [facility] Last Admin: 03/22/18 08:18 Dose: 2 ml Sodium Chloride (Ns Flush) 2 ml IV.FLUSH PRN PRN PRN Reason: FLUSH AFTER USING IV ACCESS Allergies Allergy/AdvReac Type Severity Reaction Status Date / Time No Known Allergies Allergy Verified 03/19/18 10:28 Home Medications Medication Instructions Recorded Confirmed Type atorvastatin 20 mg PO DAILY 03/19/18 03/19/18 History liraglutide [Victoza 2-Sonido] 0.6 mg SUBCUT DAILY 03/19/18 03/19/18 History metformin 1,000 mg PO BID 03/19/18 03/19/18 History omeprazole-sodium bicarbonate 1 cap PO DAILY 03/19/18 03/19/18 History pantoprazole 20 mg PO DAILY 03/19/18 03/19/18 History Physical Exam Vital signs: Vital Signs 03/21/18 20:00 03/21/18 21:00 03/21/18 22:00 Temperature 98.9 F Pulse Rate 96 H 92 H 92 H Respiratory Rate 20 Blood Pressure 109/65 Pulse Oximetry 95 03/21/18 23:00 03/22/18 00:00 03/22/18 01:00 Temperature 98.9 F Pulse Rate 92 H 85 86 Respiratory Rate 20 Blood Pressure 110/70 Pulse Oximetry 94 L 03/22/18 02:00 03/22/18 03:00 03/22/18 04:00 Temperature 98.9 F Pulse Rate 86 80 82 Respiratory Rate 20 Blood Pressure 112/68 Pulse Oximetry 97 03/22/18 05:00 03/22/18 06:00 03/22/18 07:00 Temperature Pulse Rate 82 85 83 Respiratory Rate Blood Pressure Pulse Oximetry 03/22/18 08:00 03/22/18 09:00 03/22/18 10:00 Temperature 97.8 F Pulse Rate 84 85 99 H Respiratory Rate 18 Blood Pressure 117/70 Pulse Oximetry 94 L 03/22/18 11:00 03/22/18 12:00 03/22/18 13:00 Temperature 97.9 F Pulse Rate 87 98 H 97 H Respiratory Rate 18 Blood Pressure 112/69 Pulse Oximetry 98 03/22/18 14:00 03/22/18 16:00 03/22/18 17:00 Temperature 98.1 F Pulse Rate 92 H 87 81 Respiratory Rate 18 Blood Pressure 121/64 Pulse Oximetry 95 03/22/18 18:00 Temperature Pulse Rate 83 Respiratory Rate Blood Pressure Pulse Oximetry Intake & Output 03/21/18 03/22/18 03/22/18 18:59 06:59 18:59 Intake Total 3370 / 3370 690 / 690 2370 / 2370 Output Total 750 / 750 600 / 600 600 / 600 Balance 2620 / 2620 90 / 90 1770 / 1770 Intake: IV 2650 / 2650 450 / 450 1650 / 1650 Cordarone Inj 450 MG In D5W Inj 250 / 250 250 / 250 250 / 250 241 ML @ 1 MG/MIN 33.33 mls/hr IV.CONT TITRATE PRN Rx#: [id number] LR 1000 mL Inj 1,000 ML @ 100 2000 / 2000 1000 / 1000 mls/hr IV.CONT .Q10H [facility] Rx#: [id number] Maxipime Inj 2,000 MG In NS Inj 100 / 100 100 / 100 200 / 200 100 ML @ 200 mls/hr IV.SIG Q8H [facility] Rx#:[id number] Magnesium Sulfate Inj 2 GM In 100 / 100 NS Inj 96 ML @ 50 mls/hr IV.SIG ONCE ONE Rx#:[id number] Flagyl 500 MG Inj 100 ML @ 100 200 / 200 100 / 100 200 / 200 mls/hr IV.SIG Q8H [facility] Rx#: [id number] Oral 720 / 720 240 / 240 720 / 720 Output: Urine 750 / 750 600 / 600 600 / 600 Other: # Voids 2 Date of Last Bowel Movement 03/20/18 - Constitutional no acute distress - Routine HEENT Exam Head: Present: normocephalic - Routine Respiratory Exam Present: decreased breath sounds - Routine Cardiovascular Exam Present: irregular rhythm - Routine Abdominal Exam Present: soft, tenderness (Minimal tenderness near cholecystostomy tube site), drain (Dark brown drainage; no purulence) - Routine Skin Exam Present: intact, dry - Routine Neurological Exam Present: alert, oriented X3 Assessment and Plan - Assessment (1) Intractable abdominal pain Code(s): R10.9 - Unspecified abdominal pain Status: Acute (2) NSTEMI (non-ST elevated myocardial infarction) Code(s): I21.4 - Non-ST elevation (NSTEMI) myocardial infarction Status: Acute (3) Afib Code(s): I48.91 - Unspecified atrial fibrillation Status: Acute (4) Cholecystitis Code(s): K81.9 - Cholecystitis, unspecified Status: Acute Plan: Cholecystostomy tube placed earlier today under my direction. Patient has had significant relief of his abdominal symptoms. Given his recent N STEMI and atrial fibrillation, surgical procedure is contraindicated. It is also come to my attention that Dr. Pérez may want patient to undergo cardiac catheterization first. I would hold off on any surgery until this has been completed to maximize patient's chances for an uneventful surgery. He can have the cholecystostomy tube in for 3-6 weeks. I have just spoken with Dr. Pérez and as soon as patient is stable to undergo cardiac catheterization during this stay, procedure may be accomplished. We will leave the cholecystostomy tube in for 3-6 weeks and if he requires coronary stent(s) placement, will wait appropriate time to proceed with cholecystectomy. It will likely not be straightforward, as the patient has had a previous gastric bypass and the surgery may take a bit longer. We will watch labs and as long as white count is decreasing, patient can be discharged with the cholecystostomy tube in. - Plan Discussed Condition With: Patient Nurse Anabela Pérez - Attending Attestation I attest that I had a [id number] encounter with the patient on the same day, and personally performed and documented my assessment and findings in the medical record. The following services were provided during this hospital visit: Chart data review, vital sign assessments/reviewing monitor data Review of consultation notes if present Medication orders/review and/or management Ordering and/or reviewing lab tests Ordering and/or interpreting/reviewing x-rays and/or diagnostic studies Care of the patient and discussion of the patient with the care team Documentation time To help prompt me to consider important information that might be impacting today's encounter and assessment, Information from prior notes written by myself or my colleagues may have been "brought forward/copy and pasted" into today's note.
--- NOTE | 2018-03-22 23:09 | P.PNCA ---
Subjective Interval history: CTA showing cholecystitis s/p Perc burt drain Relief of abdominal pain No chest pain Medications and Allergies Active Medications: Active Medications Acetaminophen (Tylenol) 650 mg PO Q4H PRN PRN Reason: Temp > 100.4 Al Hydroxide/Mg Hydroxide (Milk Of Magnesia Liq) 30 ml PO Q12H PRN PRN Reason: Mild Constipation Bisacodyl (Dulcolax Supp) 10 mg RECTAL DAILY PRN PRN Reason: SEVERE CONSITIPATION Dextrose (D50w Vial) 50 ml IV.PUSH UNSCH PRN PRN Reason: PER HYPOGLYCEMIA PROTOCOL Glucagon (Glucagon Inj) 1 mg OTHER PRN PRN PRN Reason: for Hypoglycemia Protocol Heparin Sodium (Porcine) (Heparin Inj) 5,000 units SQ Q8HR [facility] Last Admin: 03/22/18 21:51 Dose: 5,000 units Lactated Ringer's (Lr 1000 Ml Inj) 1,000 mls @ 100 mls/hr IV.CONT .Q10H [facility] Last Admin: 03/22/18 13:26 Dose: Not Given Metronidazole/Sodium Chloride (Flagyl 500 Mg Inj) 100 mls @ 100 mls/hr IV.SIG Q8H [facility] Last Infusion: 03/22/18 17:05 Dose: Infused Cefepime HCl 2,000 mg/ Sodium (Chloride) 100 mls @ 200 mls/hr IV.SIG Q8H [facility] Last Infusion: 03/22/18 17:05 Dose: Infused Amiodarone HCl 450 mg/ (Dextrose) 250 mls @ 33.33 mls/hr IV.CONT TITRATE PRN; Protocol PRN Reason: Per Protocol Last Admin: 03/22/18 13:48 Dose: 0.5 mg/min, 16.66 mls/hr Insulin Aspart (Novolog Insulin Correctional Sugar Inj) 0 unit SQ 08,12,17,21, 03 [facility]; Protocol Last Admin: 03/22/18 21:49 Dose: 4 unit Insulin Detemir (Levemir Inj) 5 unit SQ BID [facility] Last Admin: 03/22/18 21:45 Dose: 5 unit Lactulose (Lactulose Liq) 30 ml PO DAILY PRN PRN Reason: SEVERE CONSITIPATION Magnesium Citrate (Citroma Liq) 300 ml PO ONCE ONE Stop: 03/23/18 06:01 Magnesium Oxide (Mag-Ox) 400 mg PO BID [facility] Last Admin: 03/22/18 21:46 Dose: 400 mg Morphine Sulfate (Morphine Inj) 2 mg IV.PUSH Q3H PRN PRN Reason: PAIN SCALE 6 TO 10 Last Admin: 03/22/18 21:47 Dose: 2 mg Ondansetron HCl (Zofran Inj) 4 mg IV.PUSH Q6H PRN PRN Reason: NAUSEA OR VOMITING Last Admin: 03/22/18 08:18 Dose: 4 mg Pantoprazole Sodium (Protonix) 40 mg PO DAILY [facility] Last Admin: 03/22/18 08:17 Dose: 40 mg Senna/Docusate Sodium (Carlotta-Colace) 1 tab PO BID [facility] Last Admin: 03/22/18 21:46 Dose: 1 tab Sennosides (Senokot) 17.2 mg PO Q12H PRN PRN Reason: Moderate Constipation Sodium Chloride (Ns Flush) 2 ml IV.FLUSH BID [facility] Last Admin: 03/22/18 21:50 Dose: 2 ml Sodium Chloride (Ns Flush) 2 ml IV.FLUSH PRN PRN PRN Reason: FLUSH AFTER USING IV ACCESS Allergies Allergy/AdvReac Type Severity Reaction Status Date / Time No Known Allergies Allergy Verified 03/19/18 10:28 Home Medications Medication Instructions Recorded Confirmed Type atorvastatin 20 mg PO DAILY 03/19/18 03/19/18 History liraglutide [Victoza 2-Sonido] 0.6 mg SUBCUT DAILY 03/19/18 03/19/18 History metformin 1,000 mg PO BID 03/19/18 03/19/18 History omeprazole-sodium bicarbonate 1 cap PO DAILY 03/19/18 03/19/18 History pantoprazole 20 mg PO DAILY 03/19/18 03/19/18 History Physical Exam Vital signs: Vital Signs 03/22/18 00:00 03/22/18 01:00 03/22/18 02:00 Temperature 98.9 F Pulse Rate 85 86 86 Respiratory Rate 20 Blood Pressure 110/70 Pulse Oximetry 94 L 03/22/18 03:00 03/22/18 04:00 03/22/18 05:00 Temperature 98.9 F Pulse Rate 80 82 82 Respiratory Rate 20 Blood Pressure 112/68 Pulse Oximetry 97 03/22/18 06:00 03/22/18 07:00 03/22/18 08:00 Temperature 97.8 F Pulse Rate 85 83 84 Respiratory Rate 18 Blood Pressure 117/70 Pulse Oximetry 94 L 03/22/18 09:00 03/22/18 10:00 03/22/18 11:00 Temperature Pulse Rate 85 99 H 87 Respiratory Rate Blood Pressure Pulse Oximetry 03/22/18 12:00 03/22/18 13:00 03/22/18 14:00 Temperature 97.9 F Pulse Rate 98 H 97 H 92 H Respiratory Rate 18 Blood Pressure 112/69 Pulse Oximetry 98 03/22/18 16:00 03/22/18 17:00 03/22/18 18:00 Temperature 98.1 F Pulse Rate 87 81 83 Respiratory Rate 18 Blood Pressure 121/64 Pulse Oximetry 95 Intake & Output 03/22/18 03/22/18 03/23/18 06:59 18:59 06:59 Intake Total 690 / 690 2370 / 2370 Output Total 600 / 600 600 / 600 Balance 90 / 90 1770 / 1770 Intake: IV 450 / 450 1650 / 1650 Cordarone Inj 450 MG In D5W Inj 250 / 250 250 / 250 241 ML @ 1 MG/MIN 33.33 mls/hr IV.CONT TITRATE PRN Rx#: [id number] LR 1000 mL Inj 1,000 ML @ 100 1000 / 1000 mls/hr IV.CONT .Q10H [facility] Rx#: [id number] Maxipime Inj 2,000 MG In NS Inj 100 / 100 200 / 200 100 ML @ 200 mls/hr IV.SIG Q8H [facility] Rx#:[id number] Flagyl 500 MG Inj 100 ML @ 100 100 / 100 200 / 200 mls/hr IV.SIG Q8H [facility] Rx#: [id number] Oral 240 / 240 720 / 720 Output: Urine 600 / 600 600 / 600 Other: # Voids 2 Date of Last Bowel Movement 03/20/18 Narrative: GENERAL: Obese, well-developed, not in acute distress SKIN: Cool and dry, no generalized rash HEAD: Atraumatic. Normocephalic. No temporal or scalp tenderness. EYES: Pupils equal round and reactive. Scleral icterus. No injection or drainage. No petechia ENT: Nothing abnormal detected NECK: Trachea midline. Supple, nontender, no meningeal signs. CARDIOVASCULAR: HS audible. RESPIRATORY: Clear to auscultation bilaterally. GASTROINTESTINAL: Abdomen soft , obese, non-tender MUSCULOSKELETAL: Extremities without clubbing, cyanosis. NEUROLOGICAL: Alert oriented 3. Nonfocal deficits. Results 03/20/18 04:06 03/22/18 09:25 Comprehensive Metabolic Panel 03/22/18 Range/Units 09:25 Sodium 138 (136-145) meq/L Potassium 3.5 (3.5-5.1) meq/L Chloride 104 (98-107) meq/L Carbon Dioxide 25.2 (21.0-32.0) meq/L BUN 14 (7-18) mg/dL Creatinine 0.67 (0.60-1.30) mg/dL Calcium 7.9 L (8.5-10.1) mg/dL Intake and Output 03/22/18 03/22/18 03/23/18 14:59 22:59 06:59 Intake Total 1450 / 1450 920 / 920 Output Total 600 / 600 Balance 1450 / 1450 320 / 320 Intake: IV 1450 / 1450 200 / 200 Cordarone Inj 450 MG In D5W Inj 250 / 250 241 ML @ 1 MG/MIN 33.33 mls/hr IV.CONT TITRATE PRN Rx#: [id number] LR 1000 mL Inj 1,000 ML @ 100 1000 / 1000 mls/hr IV.CONT .Q10H [facility] Rx#: [id number] Maxipime Inj 2,000 MG In NS Inj 100 / 100 100 / 100 100 ML @ 200 mls/hr IV.SIG Q8H [facility] Rx#:[id number] Flagyl 500 MG Inj 100 ML @ 100 100 / 100 100 / 100 mls/hr IV.SIG Q8H [facility] Rx#: [id number] Oral 720 / 720 Output: Urine 600 / 600 - Imaging and Cardiology Imaging: Impressions Abdomen/Pelvis CTA 03/22/18 00:00 CONCLUSION: 1. Prominent gallbladder distention and surrounding inflammatory changes consistent with cholecystitis 2. No acute vascular findings in the abdomen or pelvis. Assessment and Plan - Assessment (1) NSTEMI (non-ST elevated myocardial infarction) Code(s): I21.4 - Non-ST elevation (NSTEMI) myocardial infarction Status: Acute (2) Afib Code(s): I48.91 - Unspecified atrial fibrillation Status: Acute (3) SIRS (systemic inflammatory response syndrome) Code(s): R65.10 - Systemic inflammatory response syndrome (SIRS) of non- infectious origin without acute organ dysfunction Status: Acute (4) Intractable abdominal pain Code(s): R10.9 - Unspecified abdominal pain Status: Acute - Plan 1) Abdominal pain/nausea/emesis Found to have cholecystitis Perc burt drain in place with relief of symptoms 2) NSTEMI Possible Type 2, although troponins are quite high 3) Afib New onset Continue on Amiodarone drip, rates better controlled 4) Bacteremia KELLY negative for vegetation, no signs of endocarditis 5) Discussed with Dr. Hall, plan for cardiac catheterization due to elevated troponin levels If no disease, then Cholecystectomy in 4-6 weeks If stenting needed, then BMS placement and Cholecystectomy in 6-8 weeks 6) Discussed with Dr. Calvo Will hold off on Cscope until after cardiac catheterization due to elevated troponin levels
[2018-03-23] MEDS: Morphine Sulfate Inj 2 MG/ML Vial IV.PUSH PRN ×4 (01:07→21:35)
--- NOTE | 2018-03-23 01:52 | ECHRPT ---
Indication: SEPSIS CONCLUSIONS The left ventricular systolic function is normal with an estimated ejection fraction in the range of 60-65%. [id number] mitral valve regurgitation. No evidence of endocarditis. BP: / HR: Rhythm: Atrial fibrillation Technical Quality:Good Medications Complications Proc. Components Anesthesia at the bedside for sedation FINDINGS LEFT VENTRICLE Normal left ventricular size. The left ventricular systolic function is normal with an estimated ejection fraction in the range of 60-65%. RIGHT VENTRICLE Normal right ventricular size and systolic function. LEFT ATRIUM The left atrial size is normal. RIGHT ATRIUM The right atrial size is normal. ATRIAL APPENDAGES Normal left atrial appendage size with no evidence of thrombus formation. ATRIAL SEPTUM Normal atrial septal thickness without atrial level shunting by limited color doppler interrogation. AORTA The aortic root and proximal ascending aorta are normal in size on limited imaging. MITRAL VALVE Structurally normal mitral valve. [id number] mitral valve regurgitation. No mitral valve stenosis. AORTIC VALVE Trileaflet aortic valve. No aortic valve regurgitation. No aortic valve stenosis. TRICUSPID VALVE Structurally normal tricuspid valve. No tricuspid valve stenosis or regurgitation. VESSELS The pulmonary valve is not well visualized. Bernardino Pérez DO (Electronically Signed) Final Date:23 March 2018 01:51
[2018-03-23] MEDS: Insulin NovoLOG Aspart Correctional Sugar Inj SQ SCH ×5 (03:52→21:30)
[2018-03-23] MEDS ORDERED: Magnesium Citrate Liq 300 ML Bottle PO ONE (06:00)
[2018-03-23] MEDS: Heparin - SQ 10,000 UNITS/ML Vial SQ SCH (06:28)
[2018-03-23] MEDS ORDERED: Heparin/NS PF Inj 500 ML ONE (07:32)
[2018-03-23] MEDS ORDERED: Heparin 10,000 UNITS/10 ML Vial (for IV use) ONE (07:33)
[2018-03-23] MEDS ORDERED: fentaNYL Citrate Inj 100 MCG/2 ML Ampul ONE (07:33)
[2018-03-23] MEDS ORDERED: Lidocaine PF 1% Inj 30 ML Vial ONE (09:00)
--- NOTE | 2018-03-23 09:21 | IR ---
EXAM DATE: 03/22/2018 3:54 PM EST AGE/SEX: 67 years / Male INDICATIONS: Patient presents with Cholecystitis in need of a Percutaneous Cholecystostomy tube plac liz. CLINICAL DATA: This is the patient's initial encounter. Patient reports that signs and symptoms have been present for 3 days and indicates a pain score of 8/10. MEDICAL/SURGICAL HISTORY: Diabetes. Gastroesophageal reflux disease. Hypercholesteremia. . Ga stric bypass. COMPARISON: No prior exams available for comparison. FLUORO TIME (min): 1.45 IMAGE SERIES: 2 SEDATION TIME (min): 30 CONTRAST (cc): 0 Omnipaque (iohexol) 350 MEDICATION(S): 50 mcg fentanyl (Sublimaze) IV DEVICE(S): 8 Tanzanian All purpose drain HAVEN 30 cm Locking . . PROCEDURE: 1. Ultrasound guided puncture of the gallbladder. 2. Percutaneous cholangiogram. 3. Percutaneous cholecystostomy tube placement. 4. Conscious sedation with continuous EKG and oximetry monitoring. The risks, benefits and alternatives to the procedure were explained and verbal and written consent w as obtained. The site was prepped in sterile fashion. Full sterile technique was used, including ca p, mask, sterile gloves and gown and a large sterile sheet. Hand hygiene and 2% chlorhexidine and/or betadine/alcohol prep was utilized per protocol for cutaneous antisepsis. Sterile gel and sterile p robe cover were utilized for ultrasound guidance. The skin and subcutaneous tissues were infiltrated with local anesthetic solution. With ultrasound and fluoroscopic guidance the gallbladder was punctured with a micropuncture set and a 4 Tanzanian dilator was placed. Injection of positive contrast demonstrates position within the gallb ladder. A 0.035 guidewire was placed within the gallbladder lumen and dilatation was performed to ac cept the prescribed catheter. Conscious sedation was performed with the prescribed dosages and duration as above in the presence of an independent trained radiology nurse to assist in the monitoring of the patient. EKG and oximetry remained stable throughout the procedure. The patient tolerated the procedure well and there were n o complications. The patient was sent to post anesthesia recovery in stable condition. CONCLUSION: 1. Uncomplicated percutaneous cholecystostomy as above. Electronically signed by: Konstantin Owen MD 03/23/2018 9:20 AM EST
--- NOTE | 2018-03-23 10:14 | CATHPROC ---
[employer] HIS Report Study Information Study Number Admission Scheduled Start Study Start [id number] Mar 19 2018 4:03PM 03/23/2018 Mar 23 2018 7:28AM [place] [facility] Endovascular Study Admit Source Facility Department Other [facility] - Pipe Stress Engineer Physician and Clinical Staff Initial Bernardino Mcclelland Estimator Lumber Martha Car,LAMONTE Estimator Lumber Lamonte Almanza RN Recorder Martha Alonzo,RT(R) Scrub Derek, Esthela,CHANNEL EXECUTIVE TECH2 Procedures Performed Procedure Location (Site) Vessel Name Coronary Angiograms LCA Left Coronary Coronary Angiograms RCA Right Coronary L Heart Cath Wire insertion Radial (right) Radial Art. Equipment Time Inspector And Tester Description Size Mfg Part Number Used/Scraped TRANSDUCER, TRUWAVE [id number] 07:30 BARRI[employer] BERMUDEZ * Used W/STOCKCOCK *[id number] [id number] *[id number] 534-520T *[id number] [id number] *[id number] 07:30 [employer] [facility] BLANKET,WARM AIR CCL * Used *[id number] 07:30 [facility] PACK, CCL CUSTOM * Used *[id number] 07:30 [facility] SUPPORT, ARTERIAL ADULT [id number] *[id number] Used BAND, RADIAL COMPRESSION TR [id number] 09:53 [employer] MEDICAL 24CM Used SHORT 24 *[id number] 07:30 [employer] WIRE, EXCHANGE 260CM 3MMJ 260CM Used *[id number] 07:30 NAM[employer] MANIFOLD, 4 PORT * Used *[id number] 07:30 [employer] OMNIPAQUE, 350 MG, 150ML 150ML [id number] Used SHEATH, FR6 TRANSRADIAL [id number] 07:30 [employer] MEDICAL FR 6 Used SLENDER 10CM *[id number] Equipment Model, Serial, Lot Number and Expiration Data Description Model Number Serial Number Lot Number Expiration Da te BAND, RADIAL COMPRESSION TR [id number] 02-12-2021 SHORT 24 History: Current Medications Medication Dosage/Unit Route Frequency Last Date/Time Taken LIPITOR Glucophage Insulin History: Allergies Allergy Reaction No Known Allergies History: Risk Factors Family History of Hypertension Dyslipidemia Previous [place] Previous Heart Failure Premature CAD Yes Yes No No No Prior Valve Prior PCI Prior CABG Surgery No No No Cerebrovascular Peripheral Artery Chronic Lung On Dialysis Diabetes Diabetes Therapy Disease Disease Disease No No No No Yes Insulin History: Symptoms/Diagnosis Selection Items Chest pain History: Stress Tests Stress or Imaging Studies Performed No History: Other Current Smoker Method Quit Packs a Day Years Used Pack Years No Cigarettes 25 Years Ago 1 15 15 Labs Hgb (g/dl) Hct (%) WBC (l/cumm) Platelets (thousands) 11.60-17.00 35.00-51.00 4.00-11.00 150.00-450.00 12.6 38.2 20.9 186 Glucose (mg/dl) BUN (mg/dl) Creatinine (mg/dl) BUN:Creatinine (1:x) 74.00-106.00 7.00-18.00 0.50-1.30 10.00-20.00 164 14 0.6 23.3 Na (meq/l) K (meq/l) 136.00-145.00 3.50-5.10 138 3.5 INR (PTT:PT) 0.90-1.10 1.2 Troponin I (ng/ml) CPK (u/l) CPK-MB (ng/ML) 0.02-0.05 26.00-308.00 0.50-3.60 14.3 415 30.0 Medication Medication Total Dose (Bolus/Oral) Medication Total Dosage/Unit 1% XYLOCAINE 20 mL FENTANYL 25 mcg RADIAL COCKTAIL 5 mL (Bolus) VERSED 0.5 mg Medications (Bolus/Oral) Medication Time Given Dosage/Unit Administered By Reason 1% XYLOCAINE 03/23/2018 9:34:19 AM 20 mL Bernardino Pérez 20 mL 1% XYLOCAINE given in lab by Bernardino Pérez in Right Radial via Subcutaneous. VERSED 03/23/2018 9:34:54 AM 0.5 mg Lamonte Almanza 0.5 mg VERSED given in lab by Lamonte Almanza RN via Peripheral IV. FENTANYL 03/23/2018 9:35:58 AM 25 mcg Cami Lamonte 25 mcg FENTANYL given in lab by Lamonte Almanza RN via Peripheral IV. Ntg 200mcg Verapamil 2.5mg Heparin RADIAL COCKTAIL 03/23/2018 9:40:31 AM 5 mL (Bolus) Bernardino Pérez 2000U 5 mL (Bolus) RADIAL COCKTAIL given in lab by Bernardino Pérez via Radial. Using [Solution Name]. R master: Ntg 200mcg Verapamil 2.5mg Heparin 2000U. 4400 heparin Medication (Drip) Medication Time Given Dosage/Unit Concentration/Unit Diluent (ml) Solution Amiodarone Drip 03/23/2018 9:00:11 AM 0.5 mg/min 450 mg 250 D5W Patient arrived on 0.5 mg/min Amiodarone Drip in Right Forearm via Peripheral IV. Pump/Drip Flow = 16 .67 ml/hr using D5W with a concentration of 450 mg in 250 ml. IV Solutions 03/23/2018 9:01:05 AM 0 mL (IV) 500 NaCl .9 IV Solutions given in lab by Martha Car, LAMONTE in Left Arm via Peripheral IV. Pump/Drip Flow = 20 ml /hr using NaCl .9. Initial Case Assessment Cardiovascular HR Rhythm NIBP Chest Pain 87 reg 143/66 0 Edema Present Skin color Skin None Normal Warm Circulatory - Right Pulses Dorsalis Pedis Femoral 1 2 Scale (0,1,2,3,4,d) Circulatory - Left Pulses Dorsalis Pedis Femoral 1 2 Scale (0,1,2,3,4,d) Circulatory - Lower Extremities Color Lower Right Color Lower Left Normal Normal Neurological State Oriented to time-place- Alert Moves all extremities person Respiration - General Respiration Rate SpO2 (%) O2 (lpm) (B/min) 16 96 2 Final Case Assessment Cardiovascular HR Rhythm NIBP Chest Pain 83 reg 140/70 0 Edema Present Skin color Skin None Normal Warm Circulatory - Right Pulses Dorsalis Pedis Femoral 1 2 Scale (0,1,2,3,4,d) Circulatory - Left Pulses Dorsalis Pedis Femoral 1 2 Scale (0,1,2,3,4,d) Circulatory - Lower Extremities Color Lower Right Color Lower Left Normal Normal Neurological State Oriented to time-place- Alert Moves all extremities person Respiration - General Respiration Rate SpO2 (%) O2 (lpm) (B/min) 24 94 2 Chronological Log Time Study Chronological Log 8:51:42 Patient arrived via Bed. 8:51:43 Patient Name, D.O.B, / Armband Verified By R.N. 8:51:52 Presedation assessment performed by Pipe Stress Engineer RN. 8:51:56 Allens test performed on the right radial and ulnar artery. 8:52:06 Patient has been NPO for More than 6Hrs. 8:52:09 Patient Warmer Placed on the Table. Vitals capture started with the following parameters, Patient=Adult, Interval=5 min, Initial Pr luxaqj=706 mmHg, 8:59:04 Deflation Rate=5 mmHg, Cuff placed on Left Arm 8:59:32 A # 20 IV was noted in the Forearm (right). Grade = 0 8:59:44 A # 20 IV was noted in the Upper Arm (left). Grade = 0 8:59:56 HR=77 bpm, NOQQ=474/66 mmhg, SpO2=96.0 %, Resp=27 B/min, Pain=0, Katherine=10, Berrios=2 Patient arrived on 0.5 mg/min Amiodarone Drip in Right Forearm via Peripheral IV. Pump/Drip Scar w = 16.67 ml/hr 9:00:11 using D5W with a concentration of 450 mg in 250 ml. IV Solutions given in lab by Martha Car RN in Left Arm via Peripheral IV. Pump/Drip Flow = 20 ml/hr using NaCl 9:01:05 .9. 9:01:29 History and physical on the chart or being dictated. Assessment: Initial Case, HR=87 BPM, Rhythm=reg, SSPW=674/66 mmhg, Chest Pain=0, Edema=None, Col or=Normal, Skin = Warm Right Pulses: Emery Ped=1, Femoral=2 Left Pulses: Emery Ped=1, Femoral=2 9:01:30 Lower Right Extremities: Color=Normal Lower Left Extremities: Color=Normal Neurological: State=Alert, Ox3, MARTINEZ Respiration: Resp=16 B/min, SpO2=96 %, O2=2 lpm 9:02:52 Right Radial and groin(s) prepped with 2% chlorhexidine, and draped after a 3 min. waiting t damien. 9:03:18 Reference ECG taken 9:03:23 MD arrived. 9:04:51 HR=75 bpm, ZAVG=892/68 mmhg, SpO2=94.0 %, Resp=19 B/min, Pain=0, Katherine=10, Berrios=2 9:05:49 pt arrived with bililary drain in place right abdomen 9:10:29 HR=79 bpm, LZHL=533/69 mmhg, SpO2=95.0 %, Resp=23 B/min, Pain=0, Katherine=10, Berrios=2 9:12:25 Pressure channel 1 zeroed. 9:14:53 HR=78 bpm, NPFP=333/64 mmhg, SpO2=95.0 %, Resp=23 B/min, Pain=0, Katherine=10, Berrios=2 9:19:52 HR=77 bpm, XTCV=744/66 mmhg, SpO2=94.0 %, Resp=43 B/min, Pain=0, Katherine=10, Berrios=2 9:24:55 HR=75 bpm, NBDE=321/64 mmhg, SpO2=93.0 %, Resp=23 B/min, Pain=0, Katherine=10, Berrios=2 9:29:54 HR=77 bpm, USVT=201/63 mmhg, SpO2=94.0 %, Resp=24 B/min, Pain=0, Katherine=10, Berrios=2 Time Out. Correct patient, correct procedure, correct physician, labs, allergies, and equipment verified with photofinishing laboratory worker 9:32:37 team present. Fire risk assesment completed (see hard stop sheet for coding). Time Out Concu rred by MD and individual staff in procedure. 9:32:49 Case Start 9:34:19 20 mL 1% XYLOCAINE given in lab by Bernardino Pérez in Right Radial via Subcutaneous. 9:34:54 0.5 mg VERSED given in lab by Lamonte Almanza, RN via Peripheral IV. 9:34:55 HR=64 bpm, SPHJ=161/71 mmhg, SpO2=95.0 %, Resp=18 B/min, Pain=0, Katherine=10, Berrios=2 9:35:58 25 mcg FENTANYL given in lab by Lamonte Almanza, RN via Peripheral IV. 9:39:40 Access site was Right Radial Artery with ultrasound device 9:39:56 HR=77 bpm, LSZV=717/66 mmhg, SpO2=93.0 %, Resp=23 B/min, Pain=0, Katherine=10, Ebrrios=2 9:39:58 A wire was inserted via Radial (right). A SHEATH, FR6 TRANSRADIAL SLENDER 10CM FR 6 was advanced into the Radial (right) using the Percu taneous 9:40:09 technique. 5 mL (Bolus) RADIAL COCKTAIL given in lab by Bernardino Pérez via Radial. Using [Solution Nam e]. Reason: Ntg 9:40:31 200mcg Verapamil 2.5mg Heparin 2000U. 4400 heparin A JR 4.0 INFINITI CATHETER FR 5 was advanced over a wire. OMNIPAQUE, 350 MG, 150ML 150ML was use d for 9:41:07 injections. Recorded Pressure: LV, HR=86, Condition=Condition 1 9:43:22 (Left Ventricle) LV 101/6/13 Recorded Pressure: LV, Ao, HR=84, Condition=Condition 1 9:43:38 (Left Ventricle) LV 101/2/10, (Aorta) Ao 97/61/77 9:44:08 The RCA was injected and visualized at various angles. OMNIPAQUE, 350 MG, 150ML 150ML used. Recorded Pressure: Ao, HR=83, Condition=Condition 1 9:44:33 (Aorta) Ao 98/67/82 After removing the current catheter a JL 3.5 INFINITI CATHETER FR 5 was advanced over a WIRE, EX CHANGE 260CM 9:44:47 3MMJ 260CM. 9:44:51 HR=82 bpm, SFEL=000/57 mmhg, SpO2=92.0 %, Resp=22 B/min, Pain=0, Katherine=10, Berrios=2 9:47:17 The LCA was injected and visualized at various angles. OMNIPAQUE, 350 MG, 150ML 150ML used. 9:49:52 HR=81 bpm, PLCJ=022/70 mmhg, SpO2=91.0 %, Resp=26 B/min, Pain=0, Katherine=10, Berrios=2 9:52:12 Catheter was removed over wire 9:53:23 Case End (Physician broke scrub) Assessment: Final Case, HR=83 BPM, Rhythm=reg, WSHR=432/70 mmhg, Chest Pain=0, Edema=None, Col or=Normal, Skin = Warm Right Pulses: Emery Ped=1, Femoral=2 Left Pulses: Emery Ped=1, Femoral=2 9:53:39 Lower Right Extremities: Color=Normal Lower Left Extremities: Color=Normal Neurological: State=Alert, Ox3, MARTINEZ Respiration: Resp=24 B/min, SpO2=94 %, O2=2 lpm 9:54:13 Catheter(s) removed without difficulty Radial Compression Device Used. 13 mLs of air placed in BAND, RADIAL COMPRESSION TR SHORT 24 2 4CM. Affected 9:54:16 hand 95 % O2 saturation. 9:55:00 HR=87 bpm, DBOW=425/63 mmhg, SpO2=94.0 %, Resp=28 B/min, Pain=0, Katherine=10, Berrios=2 9:59:59 HR=77 bpm, ZCMV=610/64 mmhg, SpO2=93.0 %, Resp=15 B/min, Pain=0, Katherine=10, Berrios=2 10:12:56 Sterile dressing applied to site 10:12:57 No case complications noted. 10:12:58 Cine recording checked. 10:12:59 Bedside Report will be given. 10:13:03 A Left Heart Cath was performed. 10:13:04 Patient moved to stretcher 10:13:05 Clinical correlaton risk stratification. End Study - Contrast Media Used In Study Contrast Total Opened (mL) Total Used (mL) Total Wasted (mL) Omnipaque 45 45 0 End Study - Maximum Contrast Load Max Contrast Load (mL) 920.8 End Study - Radiation Exposure Fluoro Time (minutes) 2.9 End Study - Sheaths Sheaths Pulled By Sheath Hold Time (min) Esthela Reed End Study - Patient Disposition Complications Transferred To No Telemetry Bed
[2018-03-23] MEDS: Sodium Chloride 0.9% 2 ML Flush BID IV.FLUSH SCH ×2 (10:22→21:33)
[2018-03-23] MEDS ORDERED: Iohexol 350 MG/ML 50 ML Vial (for Cath Lab) IVCONTRAST ONE (10:48)
[2018-03-23] MEDS: Insulin Detemir Inj 1,000 UNIT/10 ML Vial SQ SCH ×2 (10:51→21:29)
--- NOTE | 2018-03-23 11:21 | MA ---
cc: Bernardino Pérez DO DATE: 03/23/2018 PROCEDURE: Left heart catheterization, coronary angiogram, moderate sedation, 20 minutes. PREPROCEDURE DIAGNOSIS: Non-ST elevation myocardial infarction. POSTPROCEDURE DIAGNOSES: Multivessel coronary artery disease. MEDICATIONS: Versed 0.5 mg, fentanyl 25 mcg, heparin 4400 units, nitro 200 mcg, verapamil 2.5 mg. CONTRAST USED: 45 mL FLUOROSCOPY: 2.9 minutes. MODERATE SEDATION: 20 minutes. FRAILTY SCORE: 5 ESTIMATED BLOOD LOSS: 10 mL PROCEDURAL SUMMARY: Sandip Bridges is a pleasant 67-year-old male who presented to [facility] due to intractable nausea and vomiting. During this, he was found to have cholecystitis and had a percutaneous cholecystostomy tube placed. During his workup, he was found to have an elevation of his cardiac enzymes and because of this, he was recommended cardiac catheterization. Risks, benefits and alternatives were explained to him and he consented as such. He was brought to the lab and prepped in the usual sterile fashion. The right radial artery was accessed using modified Seldinger technique and placement of a Icelandic slender sheath. This is easily aspirated and flushed. A JR4 was advanced over a J-wire to the ascending aorta and across the aortic valve for measurement of left ventricular pressure. This was pulled back across the aortic valve showing no significant gradient of aortic stenosis. JR4 was used for selective angiography of the right coronary artery system. This is exchanged out for a JL3.5, which was used for selective angiography of the left coronary artery system. JL3.5 was removed over a J wire. A radial band was placed over the arteriotomy site for hemostasis. The patient left the organic lab worker cardiovascularly stable. FINDINGS: LEFT MAIN: Normal-sized vessel with adequate reflux. It bifurcates into an LAD and circumflex. LAD: Moderate size vessel with 10% to 20% disease proximally. Mid portion is diffusely diseased for a long tubular lesion of 80%. However, this lesion, there appears to be 2-3 diagonals with the third diagonal having 90% ostial disease. The distal portion of the LAD supplies collaterals to the distal PDA as well as posterolateral branch of the RCA. LEFT CIRCUMFLEX: Moderate size vessel with mild luminal irregularities in the proximal portion. It gives off 2 obtuse marginals with the first one being larger and having a 70% lesion and the second one being overall small. There are some collaterals to the distal RCA. RCA: 100% occluded in the mid portion with [id number] and [id number] collaterals supplying the distal portion. LVEDP: 10. IMPRESSION: 1. Non-ST elevation myocardial infarction. 2. Cholecystitis, status post percutaneous cholecystostomy tube. 3. Multivessel coronary artery disease. RECOMMENDATIONS: 1. Mr. Bridges has extensive coronary artery disease, specifically with an extremely long LAD lesion covering multiple diagonals. 2. I will discuss the case with CT surgery for consideration of coronary artery bypass grafting. Obviously, this is a complex issue with him having acute cholecystitis, although he has a percutaneous cholecystostomy tube placed. 3. Further recommendations will be made based on the hospital course. Thank you for allowing me to see Sandip Bridges. If there are any questions, please do not hesitate to call. Bernardino Pérez DO VGP/ct , 10:11 AM , 10:20 AM
--- NOTE | 2018-03-23 12:48 | P.PN ---
Subjective Interval history: This is a pleasant 67 y/o Male who was brought in to Emergency Department via EMS for nausea, vomiting, and abdominal pain. The patient was awakened at 6 AM with left-sided flank pain and left mid back pain radiating to the left lower quadrant. The patient then developed nausea and vomiting secondary to the pain. The patient denies any hematuria, dysuria, frequency, or dark colored urine. The pain is described as sharp, stabbing, starting in left flank and radiating to the left lower quadrant. The patient denies any history of nephrolithiasis or diverticulitis, does have a previous history of gastric bypass. The patient denies any fever, chills, or sweats. Symptoms are moderate to severe, there are no current alleviating factors, and there are no known exacerbating factors.as constant pain, 10/10 in intensity stabbing and sharp sensation, on LLQ, non radiated. he has DM II, GERD, Hyperlipidemia. Discussed with ER physician face to face Doctor Jese Espinal appreciated input and recommendations the patient has probable Sepsis has Tachycardia, Leukocytosis and probable focus in his large bowel. he continue with Pain, will cover with Cefepime and Flagyl and follow with GI specialist, following blood cultures. 03/20: Seen by GI specialist early in am, he had EGD and Colonoscopy in 2006 previous to Gastric bypass surgery, CT abdomen and Pelvis reveals thickening of the distal descending colon and our service has been consulted to evaluate patient for suspected colon mass/colitis, recommended to continue antibiotics, PPIs, Endoscopy once stable, found early with positive blood cultures for Gram negative rods, Klebsiella pneumonia, Enterobacter species, Discussed with ID specialist doctor Catrina Sanchez, and with child care development specialist Doctor Bernardino Pérez, repeated blood cultures, recommended not to perform KELLY at this time or Colonoscopy continue Cefepime and Flagyl, follow cultures. 03/21: Seen in his bedroom, discussed with nurse Miss Peñaloza at this time came from KELLY, also seen by GI specialist recommended EGD and Colonoscopy once patient is stable. 03/22: On Cefepime and Flagyl, following blood cultures, as per GI specialist recommended for CTA abdomen ruled out Mesenteric Ischemia but found cholecystitis, his KELLY was negative, GI specialist recommended for General surgery consult thinking in Cholecystostomy for drainage if poor surgical candidate, at this time NPO, EGD and Colonoscopy once more stable. 03/23: Patient followed by ID specialist Doctor Justin Bautista, believed the Cholecystitis to be the likely source for sepsis to continue Cefepime and Flagyl, following blood cultures, asked for Cholecystostomy tube placement done yesterday by Doctor Konstantin Owen, found Copious amounts of black bile and thick sludge aspirated from the gallbladder. General seafood technology specialist following, and recommended to continue this Tube for the next 3 to 6 weeks, Status post Cardiac Catheterization , discussed with Doctor Bernardino Pérez at this time and due to Multivessel Coronary Artery disease asked for Cardiothoracic surgery consult extensive long LAD lesion covering multiple diagonals, Not surgical candidate for Laparoscopic cholecystectomy Physical Exam Vital signs: Vital Signs 03/22/18 13:00 03/22/18 14:00 03/22/18 16:00 Temperature 98.1 F Pulse Rate 97 H 92 H 87 Respiratory Rate 18 Blood Pressure 121/64 Pulse Oximetry 95 03/22/18 17:00 03/22/18 18:00 03/22/18 19:00 Temperature Pulse Rate 81 83 85 Respiratory Rate Blood Pressure Pulse Oximetry 03/22/18 20:00 03/22/18 21:00 03/22/18 22:00 Temperature 98.9 F Pulse Rate 88 86 86 Respiratory Rate 18 Blood Pressure 126/66 Pulse Oximetry 94 L 03/22/18 23:00 03/23/18 00:00 03/23/18 01:00 Temperature 98.7 F Pulse Rate 87 83 83 Respiratory Rate 18 Blood Pressure 100/58 L Pulse Oximetry 94 L 03/23/18 01:20 03/23/18 02:00 03/23/18 03:00 Temperature Pulse Rate 83 76 Respiratory Rate 16 Blood Pressure Pulse Oximetry 03/23/18 03:51 03/23/18 04:00 03/23/18 05:00 Temperature 98.7 F Pulse Rate 78 78 78 Respiratory Rate 18 Blood Pressure 109/50 L Pulse Oximetry 96 03/23/18 06:00 03/23/18 07:00 03/23/18 08:00 Temperature 98.5 F Pulse Rate 76 78 78 Respiratory Rate 20 Blood Pressure 106/60 Pulse Oximetry 94 L Intake & Output 03/22/18 03/23/18 03/23/18 18:59 06:59 18:59 Intake Total 2370 / 2370 440 / 440 200 / 200 Output Total 600 / 600 225 / 225 50 / 50 Balance 1770 / 1770 215 / 215 150 / 150 Weight 110.5 kg Intake: IV 1650 / 1650 200 / 200 200 / 200 Cordarone Inj 450 MG In D5W Inj 250 / 250 241 ML @ 1 MG/MIN 33.33 mls/hr IV.CONT TITRATE PRN Rx#: [id number] LR 1000 mL Inj 1,000 ML @ 100 1000 / 1000 mls/hr IV.CONT .Q10H THOMAS Rx#: [id number] Maxipime Inj 2,000 MG In NS Inj 200 / 200 100 / 100 100 / 100 100 ML @ 200 mls/hr IV.SIG Q8H THOMAS Rx#:[id number] Flagyl 500 MG Inj 100 ML @ 100 200 / 200 100 / 100 100 / 100 mls/hr IV.SIG Q8H THOMAS Rx#: [id number] Oral 720 / 720 240 / 240 Output: Urine 600 / 600 225 / 225 Wound Drainage 50 / 50 Right Lower Abdomen 50 / 50 Other: Date of Last Bowel Movement 03/20/18 03/20/18 Narrative: GENERAL: Obese, well-developed, not in acute distress SKIN: Cool and dry, no generalized rash HEAD: Atraumatic. Normocephalic. No temporal or scalp tenderness. EYES: Pupils equal round and reactive. Scleral icterus. No injection or drainage. No petechia ENT: Nothing abnormal detected NECK: Trachea midline. Supple, nontender, no meningeal signs. CARDIOVASCULAR: HS audible. RESPIRATORY: Clear to auscultation bilaterally. GASTROINTESTINAL: Abdomen soft , cholecystostomy tube in place. MUSCULOSKELETAL: Extremities without clubbing, cyanosis. NEUROLOGICAL: Alert oriented 3. Nonfocal deficits. Results - Labs CBC & Chem 7: 03/23/18 12:13 03/23/18 12:13 Laboratory Results - last 24 hr 03/22/18 03/22/18 03/22/18 16:00 20:57 21:42 POC Glucose 281 H 235 H Magnesium 2.0 03/23/18 03/23/18 03:28 08:41 POC Glucose 164 H 151 H Magnesium Microbiology 03/20/18 22:20 Blood - Peripheral Aerobic Blood Culture - Preliminary No growth in 3 days 03/20/18 22:20 Blood - Peripheral Anaerobic Blood Culture - Final QNS - See aerobic report. 03/20/18 22:15 Blood - Peripheral Aerobic Blood Culture - Preliminary No growth in 3 days 03/20/18 22:15 Blood - Peripheral Anaerobic Blood Culture - Final QNS - See aerobic report. 03/19/18 15:50 Blood - Peripheral Aerobic Blood Culture - Final Klebsiella pneumoniae Escherichia coli 03/19/18 15:50 Blood - Peripheral Anaerobic Blood Culture - Preliminary No growth in 4 days - Imaging Impressions Percutaneous Cholangiogram 03/22/18 00:00 CONCLUSION: 1. Uncomplicated percutaneous cholecystostomy as above. - Procedures - Pre Procedure Diagnosis (1) Cholecystitis - Post Procedure Diagnosis (1) Cholecystitis - Procedure Information Procedure Date: 03/22/18 Supervising Radiologist: Konstantin Owen MD Estimated blood loss (mL): 0 Anesthesia: Local, Analgesia - Plan of Activity Patient to Unit: Nursing Unit Patient Condition: Poor Additional Comments: Cholecystomy completed. 8 polish tube placed. Copious amounts of black bile and thick sludge aspirated from the gallbladder. Cardiac Catheterization IMPRESSION: 1. Non-ST elevation myocardial infarction. 2. Cholecystitis, status post percutaneous cholecystostomy tube. 3. Multivessel coronary artery disease. RECOMMENDATIONS: 1. Mr. Bridges has extensive coronary artery disease, specifically with an extremely long LAD lesion covering multiple diagonals. 2. I will discuss the case with CT surgery for consideration of coronary artery bypass grafting. Obviously, this is a complex issue with him having acute cholecystitis, although he has a percutaneous cholecystostomy tube placed. 3. Further recommendations will be made based on the hospital course. Thank you for allowing me to see Sandip Bridges. If there are any questions, please do not hesitate to call. Bernardino Pérez, 03/23/2018, 10:11 AM Assessment and Plan - Plan 1. Intractable Abdominal pain continue cardiac telemetry monitoring and continuous pulse oximetry monitoring. white count was mildly elevated at 13.6, lactic acid was normal at 2.0. Glucose was mildly elevated at 218. CT of the abdomen and pelvis reveals Short segmental concentric wall thickening is identified in the distal descending colon. Colon malignancy needs to be excluded. no acute inflammation. continue tachycardic was started on antibiotics in ER, for empiric coverage with Cefepime asked for GI specialist consult. ECG sinus tachycardia. started on Cefepime and Flagyl. Culture positive for Klebsiella Pneumonia. 03/23: Cholecystostomy tube placement done yesterday by Doctor Konstantin Owen , found Copious amounts of black bile and thick sludge aspirated from the gallbladder. General seafood technology specialist following, and recommended to continue this Tube for the next 3 to 6 weeks. Not surgical candidate for Laparoscopic cholecystectomy 2. Hyperlipidemia continue Home medicines. 3. Sepsis improving condition. 4. DM II Uncontrolled started on Levemir 5 units BID and increased to sliding scale Medium dose. 5. GERD on PPIs. 6. NSTEMI at this time having his KELLY, as per child care development specialist the Troponin elevation may be secondary to Sepsis and possible endocarditis, KELLY negative for vegetation. Status post Cardiac Catheterization , discussed with Doctor Bernardino Pérez at this time and due to Multivessel Coronary Artery disease asked for Cardiothoracic surgery consult extensive long LAD lesion covering multiple diagonals 7. Hypokalemia replaced asked for magnesium level. DVT prophylaxis with Heparin Code Status: Full code. Discussed Condition With: Patient, child care development specialist doctor Beto. Discharge Planning: Once cleared by specialists.
[2018-03-23 12:49] LABS: Baso % (Auto) 0.3 % (0.0-2.0); Eos # (Auto) 0.1 th/mm3 (0.0-0.4); Eos % (Auto) 0.4 % (0.0-4.0); Hematocrit 33.8 % (39.0-51.0); Hemoglobin 10.7 gm/dL (13.0-17.0); Lymph # (Auto) 1.1 th/mm3 (1.0-4.8); Lymph % (Auto) 6.6 % (9.0-44.0); Mean Corpuscular HGB Conc 31.6 % (32.0-36.0); Mean Corpuscular Hemoglobin 28.6 pg (27.0-34.0); Mean Corpuscular Volume 90.6 fL (80.0-100.0); Mean Platelet Volume 9.7 fL (7.0-11.0); Mono # (Auto) 1.4 th/mm3 (0.0-0.9); Mono % (Auto) 8.7 % (0.0-8.0); Neut # (Auto) 13.6 th/mm3 (1.8-7.7); Platelet Count 164 th/mm3 (150-450); Red Blood Count 3.73 mil/mm3 (4.50-5.90); Red Cell Distribution Width 15.1 % (11.6-17.2); White Blood Count 16.2 th/mm3 (4.0-11.0)
--- NOTE | 2018-03-23 13:10 | P.PNGS ---
Subjective Interval history: Resting in bed; just back from cardiac cath States he does feel better today Physical Exam Vital signs: Vital Signs 03/22/18 14:00 03/22/18 16:00 03/22/18 17:00 Temperature 98.1 F Pulse Rate 92 H 87 81 Respiratory Rate 18 Blood Pressure 121/64 Pulse Oximetry 95 03/22/18 18:00 03/22/18 19:00 03/22/18 20:00 Temperature 98.9 F Pulse Rate 83 85 88 Respiratory Rate 18 Blood Pressure 126/66 Pulse Oximetry 94 L 03/22/18 21:00 03/22/18 22:00 03/22/18 23:00 Temperature Pulse Rate 86 86 87 Respiratory Rate Blood Pressure Pulse Oximetry 03/23/18 00:00 03/23/18 01:00 03/23/18 01:20 Temperature 98.7 F Pulse Rate 83 83 Respiratory Rate 18 16 Blood Pressure 100/58 L Pulse Oximetry 94 L 03/23/18 02:00 03/23/18 03:00 03/23/18 03:51 Temperature 98.7 F Pulse Rate 83 76 78 Respiratory Rate 18 Blood Pressure 109/50 L Pulse Oximetry 96 03/23/18 04:00 03/23/18 05:00 03/23/18 06:00 Temperature Pulse Rate 78 78 76 Respiratory Rate Blood Pressure Pulse Oximetry 03/23/18 07:00 03/23/18 08:00 Temperature 98.5 F Pulse Rate 78 78 Respiratory Rate 20 Blood Pressure 106/60 Pulse Oximetry 94 L Intake & Output 03/22/18 03/23/18 03/23/18 18:59 06:59 18:59 Intake Total 2370 / 2370 440 / 440 200 / 200 Output Total 600 / 600 225 / 225 50 / 50 Balance 1770 / 1770 215 / 215 150 / 150 Weight 110.5 kg Intake: IV 1650 / 1650 200 / 200 200 / 200 Cordarone Inj 450 MG In D5W Inj 250 / 250 241 ML @ 1 MG/MIN 33.33 mls/hr IV.CONT TITRATE PRN Rx#: [id number] LR 1000 mL Inj 1,000 ML @ 100 1000 / 1000 mls/hr IV.CONT .Q10H THOMAS Rx#: [id number] Maxipime Inj 2,000 MG In NS Inj 200 / 200 100 / 100 100 / 100 100 ML @ 200 mls/hr IV.SIG Q8H THOMAS Rx#:[id number] Flagyl 500 MG Inj 100 ML @ 100 200 / 200 100 / 100 100 / 100 mls/hr IV.SIG Q8H THOMAS Rx#: [id number] Oral 720 / 720 240 / 240 Output: Urine 600 / 600 225 / 225 Wound Drainage 50 / 50 Right Lower Abdomen 50 / 50 Other: Date of Last Bowel Movement 03/20/18 03/20/18 Narrative: Alert and awake Abd: soft; mildly distended; Cholecystostomy tube in place with dark bilious drainage; tender around insertion site Results - Labs 03/30/18 05:23 03/31/18 05:24 Laboratory Results - last 24 hr 03/22/18 03/22/18 03/22/18 16:00 20:57 21:42 WBC RBC Hgb Hct MCV MCH MCHC RDW Plt Count MPV Neut % (Auto) Lymph % (Auto) Lee % (Auto) Eos % (Auto) Baso % (Auto) Neut # (Auto) Lymph # (Auto) Lee # (Auto) Eos # (Auto) Baso # (Auto) WBC Differential Differential Comment POC Glucose 281 H 235 H Magnesium 2.0 03/23/18 03/23/18 03/23/18 03:28 08:41 12:13 WBC 16.2 H RBC 3.73 L Hgb 10.7 L Hct 33.8 L MCV 90.6 MCH 28.6 MCHC 31.6 L RDW 15.1 Plt Count 164 MPV 9.7 Neut % (Auto) 84.0 H Lymph % (Auto) 6.6 L Lee % (Auto) 8.7 H Eos % (Auto) 0.4 Baso % (Auto) 0.3 Neut # (Auto) 13.6 H Lymph # (Auto) 1.1 Lee # (Auto) 1.4 H Eos # (Auto) 0.1 Baso # (Auto) 0.0 WBC Differential . Differential Comment Auto diff final POC Glucose 164 H 151 H Magnesium - Imaging Imaging: ITS Impressions Abdomen/Pelvis CT 03/19/18 10:38 CONCLUSION: 1. Short segmental concentric wall thickening is identified in the distal descending colon. Colon malignancy needs to be excluded. 2. Calcified gallstones with moderate distention of the gallbladder. 3. No other significant abnormality. Chest CTA 03/19/18 13:37 CONCLUSION: 1. No evidence of acute pulmonary embolism. 2. Mild subpleural airspace disease and reticulations which may be chronic. 3. No evidence of segmental or lobar lung consolidation. Abdomen/Pelvis CTA 03/22/18 00:00 CONCLUSION: 1. Prominent gallbladder distention and surrounding inflammatory changes consistent with cholecystitis 2. No acute vascular findings in the abdomen or pelvis. Percutaneous Cholangiogram 03/22/18 00:00 CONCLUSION: 1. Uncomplicated percutaneous cholecystostomy as above. Assessment and Plan - Assessment (1) Intractable abdominal pain Code(s): R10.9 - Unspecified abdominal pain Status: Acute (2) NSTEMI (non-ST elevated myocardial infarction) Code(s): I21.4 - Non-ST elevation (NSTEMI) myocardial infarction Status: Acute (3) Afib Code(s): I48.91 - Unspecified atrial fibrillation Status: Acute (4) Cholecystitis Code(s): K81.9 - Cholecystitis, unspecified Status: Acute Plan: 67 year old male with afib RVR; s/p cardiac cath; cholecystics -S/p cardiac cath--- multivessel CAD found--Consult to CTS -Cholecystostomy tube in place---continue to gravity drainage -WBC trending down -Diet as tolerated -Patient is not a surgical candidate at this time for laparoscopic cholecystectomy As above; appears improved; he reports his pain is much better since the tube was placed. The exam, history, and the medical decision-making described in the above note were completed with the assistance of the mid-level provider. I reviewed and agree with the findings presented. I attest that I had a [id number] encounter with the patient on the same day, and personally performed and documented my assessment and findings in the medical record.
[2018-03-23 13:15] LABS: Alanine Aminotransferase 78 U/L (12-78); Anion Gap 10 meq/L (5-15); Aspartate Aminotransferase 17 U/L (15-37); Blood Urea Nitrogen 13 mg/dL (7-18); Calcium 7.8 mg/dL (8.5-10.1); Chloride 104 meq/L (98-107); Glomerular Filtration Rate Greater Than 89 mL/min (>89); Glucose,Random 143 mg/dL (74-106); Potassium 3.7 meq/L (3.5-5.1); Sodium 138 meq/L (136-145)
[2018-03-23 13:17] LABS: Alkaline Phosphatase 131 U/L (45-117); Total Protein 6.1 g/dL (6.4-8.2)
[2018-03-23] MEDS: dilTIAZem 30 MG Tablet PO SCH ×3 (13:23→21:31)
--- NOTE | 2018-03-23 14:40 | P.PNGI ---
Subjective Interval history: Patient laying supine in bed. Reports mild upper abdominal tenderness Denies any nausea or vomiting at this time Post cardiac cath <WoodMichelle - Last Filed: 03/23/18 14:23> Physical Exam Vital signs: Vital Signs 03/22/18 16:00 03/22/18 17:00 03/22/18 18:00 Temperature 98.1 F Pulse Rate 87 81 83 Respiratory Rate 18 Blood Pressure 121/64 Pulse Oximetry 95 03/22/18 19:00 03/22/18 20:00 03/22/18 21:00 Temperature 98.9 F Pulse Rate 85 88 86 Respiratory Rate 18 Blood Pressure 126/66 Pulse Oximetry 94 L 03/22/18 22:00 03/22/18 23:00 03/23/18 00:00 Temperature 98.7 F Pulse Rate 86 87 83 Respiratory Rate 18 Blood Pressure 100/58 L Pulse Oximetry 94 L 03/23/18 01:00 03/23/18 01:20 03/23/18 02:00 Temperature Pulse Rate 83 83 Respiratory Rate 16 Blood Pressure Pulse Oximetry 03/23/18 03:00 03/23/18 03:51 03/23/18 04:00 Temperature 98.7 F Pulse Rate 76 78 78 Respiratory Rate 18 Blood Pressure 109/50 L Pulse Oximetry 96 03/23/18 05:00 03/23/18 06:00 03/23/18 07:00 Temperature Pulse Rate 78 76 78 Respiratory Rate Blood Pressure Pulse Oximetry 03/23/18 08:00 Temperature 98.5 F Pulse Rate 78 Respiratory Rate 20 Blood Pressure 106/60 Pulse Oximetry 94 L Intake & Output 03/22/18 03/23/18 03/23/18 18:59 06:59 18:59 Intake Total 2370 / 2370 440 / 440 200 / 200 Output Total 600 / 600 225 / 225 50 / 50 Balance 1770 / 1770 215 / 215 150 / 150 Weight 110.5 kg Intake: IV 1650 / 1650 200 / 200 200 / 200 Cordarone Inj 450 MG In D5W Inj 250 / 250 241 ML @ 1 MG/MIN 33.33 mls/hr IV.CONT TITRATE PRN Rx#: [id number] LR 1000 mL Inj 1,000 ML @ 100 1000 / 1000 mls/hr IV.CONT .Q10H [facility]OMAS Rx#: [id number] Maxipime Inj 2,000 MG In NS Inj 200 / 200 100 / 100 100 / 100 100 ML @ 200 mls/hr IV.SIG Q8H [facility]OMAS Rx#:[id number] Flagyl 500 MG Inj 100 ML @ 100 200 / 200 100 / 100 100 / 100 mls/hr IV.SIG Q8H THOMAS Rx#: [id number] Oral 720 / 720 240 / 240 Output: Urine 600 / 600 225 / 225 Wound Drainage 50 / 50 Right Lower Abdomen 50 / 50 Other: Date of Last Bowel Movement 03/20/18 03/20/18 - Constitutional no acute distress - Routine HEENT Exam Head: Present: normocephalic - Routine Respiratory Exam Absent: accessory muscle use - Routine Cardiovascular Exam Present: irregularly irregular Comments: On amiodarone drip for atrial fibrillation - Routine Abdominal Exam Present: soft, normoactive bowel sounds, tenderness. Absent: distended, guarding, firm - Routine Skin Exam Present: dry, warm - Routine Neurological Exam Present: alert, oriented X3 - Routine Psychiatric Exam Present: normal affect, cooperative <Wood,Michelle - Last Filed: 03/23/18 14:23> Vital signs: Vital Signs 03/22/18 22:00 03/22/18 23:00 03/23/18 00:00 Temperature 98.7 F Pulse Rate 86 87 83 Respiratory Rate 18 Blood Pressure 100/58 L Pulse Oximetry 94 L 03/23/18 01:00 03/23/18 01:20 03/23/18 02:00 Temperature Pulse Rate 83 83 Respiratory Rate 16 Blood Pressure Pulse Oximetry 03/23/18 03:00 03/23/18 03:51 03/23/18 04:00 Temperature 98.7 F Pulse Rate 76 78 78 Respiratory Rate 18 Blood Pressure 109/50 L Pulse Oximetry 96 03/23/18 05:00 03/23/18 06:00 03/23/18 07:00 Temperature Pulse Rate 78 76 78 Respiratory Rate Blood Pressure Pulse Oximetry 03/23/18 08:00 03/23/18 11:00 03/23/18 12:00 Temperature 98.5 F 98.4 F Pulse Rate 78 73 80 Respiratory Rate 20 20 Blood Pressure 106/60 147/71 H Pulse Oximetry 94 L 97 03/23/18 13:00 03/23/18 14:00 03/23/18 15:00 Temperature Pulse Rate 82 76 74 Respiratory Rate Blood Pressure Pulse Oximetry 03/23/18 16:00 03/23/18 17:00 03/23/18 18:00 Temperature 99.3 F Pulse Rate 76 80 82 Respiratory Rate 20 Blood Pressure 155/72 H Pulse Oximetry 95 Intake & Output 03/23/18 03/23/18 03/24/18 06:59 18:59 06:59 Intake Total 440 / 440 950 / 950 Output Total 225 / 225 575 / 575 Balance 215 / 215 375 / 375 Weight 110.5 kg Intake: IV 200 / 200 450 / 450 Cordarone Inj 450 MG In D5W Inj 250 / 250 241 ML @ 1 MG/MIN 33.33 mls/hr IV.CONT TITRATE PRN Rx#: [id number] Maxipime Inj 2,000 MG In NS Inj 100 / 100 100 / 100 100 ML @ 200 mls/hr IV.SIG Q8H [facility] Rx#:[id number] Flagyl 500 MG Inj 100 ML @ 100 100 / 100 100 / 100 mls/hr IV.SIG Q8H [facility]OM[facility] Rx#: [id number] Oral 240 / 240 500 / 500 Output: Urine 225 / 225 525 / 525 Wound Drainage 50 / 50 Right Lower Abdomen 50 / 50 Other: Date of Last Bowel Movement 03/20/18 03/20/18 03/20/18 <Kimmie Calvo - Last Filed: 03/23/18 21:29> Results - Labs CBC & Chem 7: 03/23/18 12:13 03/23/18 12:13 Laboratory Results - last 24 hr 03/22/18 03/22/18 03/22/18 16:00 20:57 21:42 WBC RBC Hgb Hct MCV MCH MCHC RDW Plt Count MPV Neut % (Auto) Lymph % (Auto) [place] % (Auto) Eos % (Auto) Baso % (Auto) Neut # (Auto) Lymph # (Auto) [place] # (Auto) Eos # (Auto) Baso # (Auto) WBC Differential Differential Comment Sodium Potassium Chloride Carbon Dioxide Anion Gap BUN Creatinine Estimated GFR POC Glucose 281 H 235 H Random Glucose Calcium Magnesium 2.0 Total Bilirubin AST ALT Alkaline Phosphatase Total Protein Albumin 03/23/18 03/23/18 03/23/18 03:28 08:41 12:13 WBC 16.2 H RBC 3.73 L Hgb 10.7 L Hct 33.8 L MCV 90.6 MCH 28.6 MCHC 31.6 L RDW 15.1 Plt Count 164 MPV 9.7 Neut % (Auto) 84.0 H Lymph % (Auto) 6.6 L [place] % (Auto) 8.7 H Eos % (Auto) 0.4 Baso % (Auto) 0.3 Neut # (Auto) 13.6 H Lymph # (Auto) 1.1 [place] # (Auto) 1.4 H Eos # (Auto) 0.1 Baso # (Auto) 0.0 WBC Differential . Differential Comment Auto diff final Sodium Potassium Chloride Carbon Dioxide Anion Gap BUN Creatinine Estimated GFR POC Glucose 164 H 151 H Random Glucose Calcium Magnesium Total Bilirubin AST ALT Alkaline Phosphatase Total Protein Albumin 03/23/18 12:13 WBC RBC Hgb Hct MCV MCH MCHC RDW Plt Count MPV Neut % (Auto) Lymph % (Auto) [place] % (Auto) Eos % (Auto) Baso % (Auto) Neut # (Auto) Lymph # (Auto) [place] # (Auto) Eos # (Auto) Baso # (Auto) WBC Differential Differential Comment Sodium 138 Potassium 3.7 Chloride 104 Carbon Dioxide 24.0 Anion Gap 10 BUN 13 Creatinine 0.62 Estimated GFR Greater than 89 POC Glucose Random Glucose 143 H Calcium 7.8 L Magnesium Total Bilirubin 0.5 AST 17 ALT 78 Alkaline Phosphatase 131 H Total Protein 6.1 L D Albumin 2.0 L Microbiology 03/20/18 22:20 Blood - Peripheral Aerobic Blood Culture - Preliminary No growth in 3 days 03/20/18 22:20 Blood - Peripheral Anaerobic Blood Culture - Final QNS - See aerobic report. 03/20/18 22:15 Blood - Peripheral Aerobic Blood Culture - Preliminary No growth in 3 days 03/20/18 22:15 Blood - Peripheral Anaerobic Blood Culture - Final QNS - See aerobic report. 03/19/18 15:50 Blood - Peripheral Aerobic Blood Culture - Final Klebsiella pneumoniae Escherichia coli 03/19/18 15:50 Blood - Peripheral Anaerobic Blood Culture - Preliminary No growth in 4 days - Imaging Impressions Percutaneous Cholangiogram 03/22/18 00:00 CONCLUSION: 1. Uncomplicated percutaneous cholecystostomy as above. - Procedures - Pre Procedure Diagnosis (1) Cholecystitis - Post Procedure Diagnosis (1) Cholecystitis - Procedure Information Procedure Date: 03/22/18 Supervising Radiologist: Konstantin Owen MD Estimated blood loss (mL): 0 Anesthesia: Local, Analgesia - Plan of Activity Patient to Unit: Nursing Unit Patient Condition: Poor Additional Comments: Cholecystomy completed. 8 yoruba tube placed. Copious amounts of black bile and thick sludge aspirated from the gallbladder. Cardiac Catheterization IMPRESSION: 1. Non-ST elevation myocardial infarction. 2. Cholecystitis, status post percutaneous cholecystostomy tube. 3. Multivessel coronary artery disease. RECOMMENDATIONS: 1. Mr. Bridges has extensive coronary artery disease, specifically with an extremely long LAD lesion covering multiple diagonals. 2. I will discuss the case with CT surgery for consideration of coronary artery bypass grafting. Obviously, this is a complex issue with him having acute cholecystitis, although he has a percutaneous cholecystostomy tube placed. 3. Further recommendations will be made based on the hospital course. Thank you for allowing me to see Sandip Bridges. If there are any questions, please do not hesitate to call. Bernardino Pérez, 03/23/2018, 10:11 AM <Michelle Wood - Last Filed: 03/23/18 14:23> - Labs CBC & Chem 7: 03/23/18 12:13 03/23/18 12:13 Laboratory Results - last 24 hr 03/22/18 03/22/18 03/23/18 20:57 21:42 03:28 WBC RBC Hgb Hct MCV MCH MCHC RDW Plt Count MPV Neut % (Auto) Lymph % (Auto) [place] % (Auto) Eos % (Auto) Baso % (Auto) Neut # (Auto) Lymph # (Auto) [place] # (Auto) Eos # (Auto) Baso # (Auto) WBC Differential Differential Comment Sodium Potassium Chloride Carbon Dioxide Anion Gap BUN Creatinine Estimated GFR POC Glucose 235 H 164 H Random Glucose Calcium Magnesium 2.0 Total Bilirubin AST ALT Alkaline Phosphatase Total Protein Albumin 03/23/18 03/23/18 03/23/18 08:41 12:13 12:13 WBC 16.2 H RBC 3.73 L Hgb 10.7 L Hct 33.8 L MCV 90.6 MCH 28.6 MCHC 31.6 L RDW 15.1 Plt Count 164 MPV 9.7 Neut % (Auto) 84.0 H Lymph % (Auto) 6.6 L [place] % (Auto) 8.7 H Eos % (Auto) 0.4 Baso % (Auto) 0.3 Neut # (Auto) 13.6 H Lymph # (Auto) 1.1 [place] # (Auto) 1.4 H Eos # (Auto) 0.1 Baso # (Auto) 0.0 WBC Differential . Differential Comment Auto diff final Sodium 138 Potassium 3.7 Chloride 104 Carbon Dioxide 24.0 Anion Gap 10 BUN 13 Creatinine 0.62 Estimated GFR Greater than 89 POC Glucose 151 H Random Glucose 143 H Calcium 7.8 L Magnesium Total Bilirubin 0.5 AST 17 ALT 78 Alkaline Phosphatase 131 H Total Protein 6.1 L D Albumin 2.0 L 03/23/18 16:30 WBC RBC Hgb Hct MCV MCH MCHC RDW Plt Count MPV Neut % (Auto) Lymph % (Auto) [place] % (Auto) Eos % (Auto) Baso % (Auto) Neut # (Auto) Lymph # (Auto) [place] # (Auto) Eos # (Auto) Baso # (Auto) WBC Differential Differential Comment Sodium Potassium Chloride Carbon Dioxide Anion Gap BUN Creatinine Estimated GFR POC Glucose 206 H Random Glucose Calcium Magnesium Total Bilirubin AST ALT Alkaline Phosphatase Total Protein Albumin Microbiology 03/20/18 22:20 Blood - Peripheral Aerobic Blood Culture - Preliminary No growth in 3 days 03/20/18 22:20 Blood - Peripheral Anaerobic Blood Culture - Final QNS - See aerobic report. 03/20/18 22:15 Blood - Peripheral Aerobic Blood Culture - Preliminary No growth in 3 days 03/20/18 22:15 Blood - Peripheral Anaerobic Blood Culture - Final QNS - See aerobic report. 03/19/18 15:50 Blood - Peripheral Aerobic Blood Culture - Final Klebsiella pneumoniae Escherichia coli 03/19/18 15:50 Blood - Peripheral Anaerobic Blood Culture - Preliminary No growth in 4 days - Imaging Impressions Percutaneous Cholangiogram 03/22/18 00:00 CONCLUSION: 1. Uncomplicated percutaneous cholecystostomy as above. <Kimmie Calvo - Last Filed: 03/23/18 21:29> Assessment and Plan (1) Intractable abdominal pain Status: Acute Code(s): R10.9 - Unspecified abdominal pain - Plan Assessment: - Colon wall thickening- CT abdomen and pelvis (03/19) Short segmental concentric wall thickening is identified in the distal descending colon. Colon malignancy needs to be excluded. Calcified gallstones with moderate distention of the gallbladder. Patient states last EGD/colonoscopy was done in 2006 prior to gastric bypass surgery. Reportedly normal exam. Family history of gastric cancer-he states his brother of gastric cancer at the age of 3838 years old. EGD/colonoscopy recommended when pt is cleared by cardiology and is stable - Acute cholecystitis - CTA abd/pelvis done to rule out mesenteric ischemia yesterday CTA abd/pelvis (03/22) Prominent gallbladder distention and surrounding inflammatory changes consistent with cholecystitis No acute vascular findings in the abdomen or pelvis. Pt likely poor surgical candidate, GS has been consulted and input is pending. Anticipate possible cholecystostomy drain - Klebsiella Pneumoniae bacteremia- ID following to determine etiology. KELLY negative for vegetation. Suspect secondary to acute cholecystitis - A-fib with RVR and elevated troponin- now rate controlled, on Amiodarone gtt, on Heparin- cardiology following 03/23/2018 Wall thickening and distal descending colon Colonoscopy post cardiac clearance . Cholecystitis Cholecystostomy tube in place attached to drainage via gravity, patient not presently a surgical candidate for laparoscopic cholecystectomy. WBC 16.2 ( trending down ) hemoglobin 10.7 hematocrit 33.8 Plan -Cardiac diet -Continue IV antibiotics -Cardiology/infectious disease following -Supportive care -Further recommendations to follow based on patient status and findings Pt has been seen and examined by myself and Dr. Calvo and this note is written on her behalf - Attending Attestation Dr. Calvo <Michelle Wood - Last Filed: 03/23/18 14:23> (1) Intractable abdominal pain Status: Acute Code(s): R10.9 - Unspecified abdominal pain - Attending Attestation cardiac cath noted discussed with cardiology-not cleared yet for egd/colonoscopy <Kimmie Calvo - Last Filed: 03/23/18 21:29>
[2018-03-23] MEDS: Magnesium Oxide 400 MG Tablet PO SCH ×2 (17:01→21:32)
[2018-03-23] MEDS: Senna/Docusate Sodium 8.6/50 MG Tablet PO SCH ×2 (17:01→21:33)
--- NOTE | 2018-03-23 22:55 | P.PNCA ---
Subjective Interval history: s/p cath showing multivessel CAD Feels better today, no longer having abdominal pain Medications and Allergies Active Medications: Active Medications Acetaminophen (Tylenol) 650 mg PO Q4H PRN PRN Reason: Temp > 100.4 Al Hydroxide/Mg Hydroxide (Milk Of Magnesia Liq) 30 ml PO Q12H PRN PRN Reason: Mild Constipation Bisacodyl (Dulcolax Supp) 10 mg RECTAL DAILY PRN PRN Reason: SEVERE CONSITIPATION Dextrose (D50w Vial) 50 ml IV.PUSH UNSCH PRN PRN Reason: PER HYPOGLYCEMIA PROTOCOL Diltiazem HCl (Cardizem) 30 mg PO QID [facility] Last Admin: 03/23/18 21:31 Dose: 30 mg Glucagon (Glucagon Inj) 1 mg OTHER PRN PRN PRN Reason: for Hypoglycemia Protocol Lactated Ringer's (Lr 1000 Ml Inj) 1,000 mls @ 100 mls/hr IV.CONT .Q10H [facility] Last Infusion: 03/23/18 22:05 Dose: 0 mls/hr Metronidazole/Sodium Chloride (Flagyl 500 Mg Inj) 100 mls @ 100 mls/hr IV.SIG Q8H [facility] Last Infusion: 03/23/18 21:34 Dose: Infused Cefepime HCl 2,000 mg/ Sodium (Chloride) 100 mls @ 200 mls/hr IV.SIG Q8H [facility] Last Infusion: 03/23/18 18:30 Dose: Infused Amiodarone HCl 450 mg/ (Dextrose) 250 mls @ 33.33 mls/hr IV.CONT TITRATE PRN; Protocol PRN Reason: Per Protocol Last Titration: 03/23/18 14:30 Dose: Infused Insulin Aspart (Novolog Insulin Correctional Sugar Inj) 0 unit SQ 08,12,17,21, 03 [facility]; Protocol Last Admin: 03/23/18 21:30 Dose: 2 unit Insulin Detemir (Levemir Inj) 5 unit SQ BID [facility] Last Admin: 03/23/18 21:29 Dose: 5 unit Lactulose (Lactulose Liq) 30 ml PO DAILY PRN PRN Reason: SEVERE CONSITIPATION Magnesium Oxide (Mag-Ox) 400 mg PO BID [facility] Last Admin: 03/23/18 21:32 Dose: 400 mg Morphine Sulfate (Morphine Inj) 2 mg IV.PUSH Q3H PRN PRN Reason: PAIN SCALE 6 TO 10 Last Admin: 03/23/18 21:35 Dose: 2 mg Ondansetron HCl (Zofran Inj) 4 mg IV.PUSH Q6H PRN PRN Reason: NAUSEA OR VOMITING Last Admin: 03/23/18 21:28 Dose: 4 mg Pantoprazole Sodium (Protonix) 40 mg PO DAILY [facility] Last Admin: 03/23/18 10:22 Dose: 40 mg Senna/Docusate Sodium (Carlotat-Colace) 1 tab PO BID [facility] Last Admin: 03/23/18 21:33 Dose: 1 tab Sennosides (Senokot) 17.2 mg PO Q12H PRN PRN Reason: Moderate Constipation Sodium Chloride (Ns Flush) 2 ml IV.FLUSH BID [facility] Last Admin: 03/23/18 21:33 Dose: 2 ml Sodium Chloride (Ns Flush) 2 ml IV.FLUSH PRN PRN PRN Reason: FLUSH AFTER USING IV ACCESS Allergies Allergy/AdvReac Type Severity Reaction Status Date / Time No Known Allergies Allergy Verified 03/19/18 10:28 Home Medications Medication Instructions Recorded Confirmed Type atorvastatin 20 mg PO DAILY 03/19/18 03/19/18 History liraglutide [Victoza 2-Sonido] 0.6 mg SUBCUT DAILY 03/19/18 03/19/18 History metformin 1,000 mg PO BID 03/19/18 03/19/18 History omeprazole-sodium bicarbonate 1 cap PO DAILY 03/19/18 03/19/18 History pantoprazole 20 mg PO DAILY 03/19/18 03/19/18 History Physical Exam Vital signs: Vital Signs 03/22/18 23:00 03/23/18 00:00 03/23/18 01:00 Temperature 98.7 F Pulse Rate 87 83 83 Respiratory Rate 18 Blood Pressure 100/58 L Pulse Oximetry 94 L 03/23/18 01:20 03/23/18 02:00 03/23/18 03:00 Temperature Pulse Rate 83 76 Respiratory Rate 16 Blood Pressure Pulse Oximetry 03/23/18 03:51 03/23/18 04:00 03/23/18 05:00 Temperature 98.7 F Pulse Rate 78 78 78 Respiratory Rate 18 Blood Pressure 109/50 L Pulse Oximetry 96 03/23/18 06:00 03/23/18 07:00 11/08/18 08:00 Temperature 98.5 F Pulse Rate 76 78 78 Respiratory Rate 20 Blood Pressure 106/60 Pulse Oximetry 94 L 03/23/18 11:00 03/23/18 12:00 03/23/18 13:00 Temperature 98.4 F Pulse Rate 73 80 82 Respiratory Rate 20 Blood Pressure 147/71 H Pulse Oximetry 97 03/23/18 14:00 03/23/18 15:00 03/23/18 16:00 Temperature 99.3 F Pulse Rate 76 74 76 Respiratory Rate 20 Blood Pressure 155/72 H Pulse Oximetry 95 03/23/18 17:00 03/23/18 18:00 03/23/18 21:35 Temperature Pulse Rate 80 82 Respiratory Rate 16 Blood Pressure Pulse Oximetry Intake & Output 03/23/18 03/23/18 03/24/18 06:59 18:59 06:59 Intake Total 440 / 440 1050 / 1050 1100 / 1100 Output Total 225 / 225 575 / 575 Balance 215 / 215 475 / 475 1100 / 1100 Weight 110.5 kg Intake: IV 200 / 200 550 / 550 1100 / 1100 Cordarone Inj 450 MG In D5W Inj 250 / 250 241 ML @ 1 MG/MIN 33.33 mls/hr IV.CONT TITRATE PRN Rx#: [id number] LR 1000 mL Inj 1,000 ML @ 100 1000 / 1000 mls/hr IV.CONT .Q10H [facility] Rx#: [id number] Maxipime Inj 2,000 MG In NS Inj 100 / 100 200 / 200 100 ML @ 200 mls/hr IV.SIG Q8H [facility] Rx#:[id number] Flagyl 500 MG Inj 100 ML @ 100 100 / 100 100 / 100 100 / 100 mls/hr IV.SIG Q8H [facility] Rx#: [id number] Oral 240 / 240 500 / 500 Output: Urine 225 / 225 525 / 525 Wound Drainage 50 / 50 Right Lower Abdomen 50 / 50 Other: Date of Last Bowel Movement 03/20/18 03/20/18 03/20/18 Narrative: GENERAL: Obese, well-developed, not in acute distress SKIN: Cool and dry, no generalized rash HEAD: Atraumatic. Normocephalic. No temporal or scalp tenderness. EYES: Pupils equal round and reactive. Scleral icterus. No injection or drainage. No petechia ENT: Nothing abnormal detected NECK: Trachea midline. Supple, nontender, no meningeal signs. CARDIOVASCULAR: HS audible. RESPIRATORY: Clear to auscultation bilaterally. GASTROINTESTINAL: Abdomen soft , cholecystostomy tube in place. MUSCULOSKELETAL: Extremities without clubbing, cyanosis. NEUROLOGICAL: Alert oriented 3. Nonfocal deficits. Results 03/23/18 12:13 03/23/18 12:13 Cardiac Enzymes 03/23/18 Range/Units 12:13 AST 17 (15-37) U/L CBC 03/23/18 Range/Units 12:13 WBC 16.2 H (4.0-11.0) th/mm3 RBC 3.73 L (4.50-5.90) mil/mm3 Hgb 10.7 L (13.0-17.0) gm/dL Hct 33.8 L (39.0-51.0) % Plt Count 164 (150-450) th/mm3 Neut # (Auto) 13.6 H (1.8-7.7) th/mm3 Lymph # (Auto) 1.1 (1.0-4.8) th/mm3 [place] # (Auto) 1.4 H (0.0-0.9) th/mm3 Eos # (Auto) 0.1 (0.0-0.4) th/mm3 Baso # (Auto) 0.0 (0.0-0.2) th/mm3 Comprehensive Metabolic Panel 03/22/18 03/23/18 Range/Units 09:25 12:13 Sodium 138 138 (136-145) meq/L Potassium 3.5 3.7 (3.5-5.1) meq/L Chloride 104 104 (98-107) meq/L Carbon Dioxide 25.2 24.0 (21.0-32.0) meq/L BUN 14 13 (7-18) mg/dL Creatinine 0.67 0.62 (0.60-1.30) mg/dL Calcium 7.9 L 7.8 L (8.5-10.1) mg/dL AST 17 (15-37) U/L ALT 78 (12-78) U/L Alkaline Phosphatase 131 H (45-117) U/L Total Protein 6.1 L D (6.4-8.2) g/dL Albumin 2.0 L (3.4-5.0) g/dL Intake and Output 03/23/18 03/23/18 03/23/18 06:59 14:59 22:59 Intake Total 440 / 440 450 / 450 1700 / 1700 Output Total 225 / 225 50 / 50 525 / 525 Balance 215 / 215 400 / 400 1175 / 1175 Intake: IV 200 / 200 450 / 450 1200 / 1200 Cordarone Inj 450 MG In D5W Inj 250 / 250 241 ML @ 1 MG/MIN 33.33 mls/hr IV.CONT TITRATE PRN Rx#: [id number] LR 1000 mL Inj 1,000 ML @ 100 1000 / 1000 mls/hr IV.CONT .Q10H [facility] Rx#: [id number] Maxipime Inj 2,000 MG In NS Inj 100 / 100 100 / 100 100 / 100 100 ML @ 200 mls/hr IV.SIG Q8H [facility] Rx#:[id number] Flagyl 500 MG Inj 100 ML @ 100 100 / 100 100 / 100 100 / 100 mls/hr IV.SIG Q8H [facility] Rx#: [id number] Oral 240 / 240 500 / 500 Output: Urine 225 / 225 525 / 525 Wound Drainage 50 / 50 0 / 0 Right Lower Abdomen 50 / 50 0 / 0 Other: Date of Last Bowel Movement 03/20/18 03/20/18 03/20/18 Weight 110.5 kg - Imaging and Cardiology Imaging: Impressions Abdomen/Pelvis CTA 03/22/18 00:00 CONCLUSION: 1. Prominent gallbladder distention and surrounding inflammatory changes consistent with cholecystitis 2. No acute vascular findings in the abdomen or pelvis. Percutaneous Cholangiogram 03/22/18 00:00 CONCLUSION: 1. Uncomplicated percutaneous cholecystostomy as above. Assessment and Plan - Assessment (1) NSTEMI (non-ST elevated myocardial infarction) Code(s): I21.4 - Non-ST elevation (NSTEMI) myocardial infarction Status: Acute (2) Afib Code(s): I48.91 - Unspecified atrial fibrillation Status: Acute (3) SIRS (systemic inflammatory response syndrome) Code(s): R65.10 - Systemic inflammatory response syndrome (SIRS) of non- infectious origin without acute organ dysfunction Status: Acute (4) Intractable abdominal pain Code(s): R10.9 - Unspecified abdominal pain Status: Acute - Plan 1) Abdominal pain/nausea/emesis Found to have cholecystitis Perc burt drain in place with relief of symptoms 2) NSTEMI Found to have multivessel CAD CT surgery evaluation Complex case with acute cholecystitis with percutaneous cholecystostomy tube 3) Afib New onset Started on Cardizem, heart rates controlled 4) Bacteremia KELLY negative for vegetation, no signs of endocarditis 5) Discussed with Dr. Calvo Will hold off on Cscope due to multivessel CAD
[2018-03-24] MEDS: Morphine Sulfate Inj 2 MG/ML Vial IV.PUSH PRN ×3 (01:22→21:00)
[2018-03-24 05:03] LABS: Baso # (Auto) 0.1 th/mm3 (0.0-0.2); Baso % (Auto) 0.5 % (0.0-2.0); Eos # (Auto) 0.1 th/mm3 (0.0-0.4); Eos % (Auto) 1.1 % (0.0-4.0); Hematocrit 29.9 % (39.0-51.0); Hemoglobin 9.8 gm/dL (13.0-17.0); Lymph # (Auto) 1.2 th/mm3 (1.0-4.8); Lymph % (Auto) 9.6 % (9.0-44.0); Mean Corpuscular HGB Conc 32.7 % (32.0-36.0); Mean Corpuscular Hemoglobin 28.8 pg (27.0-34.0); Mean Corpuscular Volume 88.2 fL (80.0-100.0); Mono # (Auto) 1.3 th/mm3 (0.0-0.9); Mono % (Auto) 10.3 % (0.0-8.0); Neut # (Auto) 10.2 th/mm3 (1.8-7.7); Neut % (Auto) 78.5 % (16.0-70.0); Platelet Count 153 th/mm3 (150-450); Red Blood Count 3.39 mil/mm3 (4.50-5.90); Red Cell Distribution Width 14.6 % (11.6-17.2)
[2018-03-24 05:34] LABS: Alanine Aminotransferase 58 U/L (12-78); Albumin 1.8 g/dL (3.4-5.0); Anion Gap 6 meq/L (5-15); Aspartate Aminotransferase 13 U/L (15-37); Blood Urea Nitrogen 11 mg/dL (7-18); Calcium 7.6 mg/dL (8.5-10.1); Chloride 105 meq/L (98-107); Glomerular Filtration Rate Greater Than 89 mL/min (>89); Glucose,Random 161 mg/dL (74-106); Potassium 3.6 meq/L (3.5-5.1); Sodium 139 meq/L (136-145)
[2018-03-24 05:36] LABS: Alkaline Phosphatase 125 U/L (45-117); Total Protein 5.7 g/dL (6.4-8.2)
[2018-03-24] MEDS: Insulin NovoLOG Aspart Correctional Sugar Inj SQ SCH ×5 (07:51→20:58)
--- NOTE | 2018-03-24 08:35 | P.PN ---
Subjective Interval history: This is a pleasant 67 y/o Male who was brought in to Emergency Department via EMS for nausea, vomiting, and abdominal pain. The patient was awakened at 6 AM with left-sided flank pain and left mid back pain radiating to the left lower quadrant. The patient then developed nausea and vomiting secondary to the pain. The patient denies any hematuria, dysuria, frequency, or dark colored urine. The pain is described as sharp, stabbing, starting in left flank and radiating to the left lower quadrant. The patient denies any history of nephrolithiasis or diverticulitis, does have a previous history of gastric bypass. The patient denies any fever, chills, or sweats. Symptoms are moderate to severe, there are no current alleviating factors, and there are no known exacerbating factors.as constant pain, 10/10 in intensity stabbing and sharp sensation, on LLQ, non radiated. he has DM II, GERD, Hyperlipidemia. Discussed with ER physician face to face Doctor Jese Espinal appreciated input and recommendations the patient has probable Sepsis has Tachycardia, Leukocytosis and probable focus in his large bowel. he continue with Pain, will cover with Cefepime and Flagyl and follow with GI specialist, following blood cultures. 03/20: Seen by GI specialist early in am, he had EGD and Colonoscopy in 2006 previous to Gastric bypass surgery, CT abdomen and Pelvis reveals thickening of the distal descending colon and our service has been consulted to evaluate patient for suspected colon mass/colitis, recommended to continue antibiotics, PPIs, Endoscopy once stable, found early with positive blood cultures for Gram negative rods, Klebsiella pneumonia, Enterobacter species, Discussed with ID specialist doctor Catrina Sanchez, and with blasting entry specialist Doctor Bernardino Pérez, repeated blood cultures, recommended not to perform KELLY at this time or Colonoscopy continue Cefepime and Flagyl, follow cultures. 03/21: Seen in his bedroom, discussed with nurse Miss Peñaloza at this time came from KE[place], also seen by GI specialist recommended EGD and Colonoscopy once patient is stable. 03/22: On Cefepime and Flagyl, following blood cultures, as per GI specialist recommended for CTA abdomen ruled out Mesenteric Ischemia but found cholecystitis, his KELLY was negative, GI specialist recommended for General surgery consult thinking in Cholecystostomy for drainage if poor surgical candidate, at this time NPO, EGD and Colonoscopy once more stable. 03/23: Patient followed by ID specialist Doctor Justin Bautista, believed the Cholecystitis to be the likely source for sepsis to continue Cefepime and Flagyl, following blood cultures, asked for Cholecystostomy tube placement done yesterday by Doctor Konstantin Owen, found Copious amounts of black bile and thick sludge aspirated from the gallbladder. General energy conservation specialist following, and recommended to continue this Tube for the next 3 to 6 weeks, Status post Cardiac Catheterization , discussed with Doctor Bernardino Pérez at this time and due to Multivessel Coronary Artery disease asked for Cardiothoracic surgery consult extensive long LAD lesion covering multiple diagonals, Not surgical candidate for Laparoscopic cholecystectomy 03/24: Patient discussed with nurse Miss Patel no new issues, seen by ID specialist, WBC count improving, to continue Cefepime Stopped Flagyl, on Hold Endoscopy due to Multivessel CAD, as per cardiothoracic surgery will wait until patient is more stable, eating well, improving clinical condition, no nausea, vomit or diarrhea. Physical Exam Vital signs: Vital Signs 03/23/18 11:00 03/23/18 12:00 03/23/18 13:00 Temperature 98.4 F Pulse Rate 73 80 82 Respiratory Rate 20 Blood Pressure 147/71 H Pulse Oximetry 97 03/23/18 14:00 03/23/18 15:00 03/23/18 16:00 Temperature 99.3 F Pulse Rate 76 74 76 Respiratory Rate 20 Blood Pressure 155/72 H Pulse Oximetry 95 03/23/18 17:00 03/23/18 18:00 03/23/18 19:00 Temperature Pulse Rate 80 82 70 Respiratory Rate Blood Pressure Pulse Oximetry 03/23/18 20:00 03/23/18 21:00 03/23/18 21:35 Temperature 98.7 F Pulse Rate 82 72 Respiratory Rate 18 16 Blood Pressure 129/60 Pulse Oximetry 95 03/23/18 22:00 03/23/18 23:00 03/24/18 00:00 Temperature 98.6 F Pulse Rate 72 74 70 Respiratory Rate 18 Blood Pressure 100/60 Pulse Oximetry 95 03/24/18 01:00 03/24/18 01:25 03/24/18 02:00 Temperature Pulse Rate 68 68 Respiratory Rate 16 Blood Pressure Pulse Oximetry 03/24/18 03:00 03/24/18 04:00 03/24/18 05:00 Temperature 98.7 F Pulse Rate 79 79 74 Respiratory Rate 18 Blood Pressure 110/64 Pulse Oximetry 95 03/24/18 06:00 Temperature Pulse Rate 79 Respiratory Rate Blood Pressure Pulse Oximetry Intake & Output 03/23/18 03/24/18 03/24/18 18:59 06:59 18:59 Intake Total 1050 / 1050 2780 / 2780 Output Total 575 / 575 325 / 325 Balance 475 / 475 2455 / 2455 Weight 110.9 kg Intake: IV 550 / 550 2300 / 2300 Cordarone Inj 450 MG In D5W Inj 250 / 250 241 ML @ 1 MG/MIN 33.33 mls/hr IV.CONT TITRATE PRN Rx#: [id number] LR 1000 mL Inj 1,000 ML @ 100 2000 / 2000 mls/hr IV.CONT .Q10H THOMAS Rx#: [id number] Maxipime Inj 2,000 MG In NS Inj 200 / 200 100 / 100 100 ML @ 200 mls/hr IV.SIG Q8H THOMAS Rx#:[id number] Flagyl 500 MG Inj 100 ML @ 100 100 / 100 200 / 200 mls/hr IV.SIG Q8H THOMAS Rx#: [id number] Oral 500 / 500 480 / 480 Output: Urine 525 / 525 325 / 325 Wound Drainage 50 / 50 Right Lower Abdomen 50 / 50 Other: # Voids 3 # Incontinent Voids 1 Date of Last Bowel Movement 03/20/18 03/20/18 Narrative: GENERAL: Obese, well-developed, not in acute distress SKIN: Cool and dry, no generalized rash HEAD: Atraumatic. Normocephalic. No temporal or scalp tenderness. EYES: Pupils equal round and reactive. Scleral icterus. No injection or drainage. No petechia ENT: Nothing abnormal detected NECK: Trachea midline. Supple, nontender, no meningeal signs. CARDIOVASCULAR: HS audible. RESPIRATORY: Clear to auscultation bilaterally. GASTROINTESTINAL: Abdomen soft , cholecystostomy tube in place. MUSCULOSKELETAL: Extremities without clubbing, cyanosis. NEUROLOGICAL: Alert oriented 3. Nonfocal deficits. Results - Labs CBC & Chem 7: 03/24/18 04:20 03/24/18 04:20 Laboratory Results - last 24 hr 03/23/18 03/23/18 03/23/18 08:41 12:13 12:13 WBC 16.2 H RBC 3.73 L Hgb 10.7 L Hct 33.8 L MCV 90.6 MCH 28.6 MCHC 31.6 L RDW 15.1 Plt Count 164 MPV 9.7 Neut % (Auto) 84.0 H Lymph % (Auto) 6.6 L [place] % (Auto) 8.7 H Eos % (Auto) 0.4 Baso % (Auto) 0.3 Neut # (Auto) 13.6 H Lymph # (Auto) 1.1 [place] # (Auto) 1.4 H Eos # (Auto) 0.1 Baso # (Auto) 0.0 WBC Differential . Differential Comment Auto diff final Sodium 138 Potassium 3.7 Chloride 104 Carbon Dioxide 24.0 Anion Gap 10 BUN 13 Creatinine 0.62 Estimated GFR Greater than 89 POC Glucose 151 H Random Glucose 143 H Calcium 7.8 L Total Bilirubin 0.5 AST 17 ALT 78 Alkaline Phosphatase 131 H Total Protein 6.1 L D Albumin 2.0 L 03/23/18 03/23/18 03/24/18 16:30 21:16 04:20 WBC 13.0 H RBC 3.39 L Hgb 9.8 L Hct 29.9 L MCV 88.2 MCH 28.8 MCHC 32.7 RDW 14.6 Plt Count 153 MPV 10.0 Neut % (Auto) 78.5 H Lymph % (Auto) 9.6 [place] % (Auto) 10.3 H Eos % (Auto) 1.1 Baso % (Auto) 0.5 Neut # (Auto) 10.2 H Lymph # (Auto) 1.2 [place] # (Auto) 1.3 H Eos # (Auto) 0.1 Baso # (Auto) 0.1 WBC Differential . Differential Comment Auto diff final Sodium Potassium Chloride Carbon Dioxide Anion Gap BUN Creatinine Estimated GFR POC Glucose 206 H 192 H Random Glucose Calcium Total Bilirubin AST ALT Alkaline Phosphatase Total Protein Albumin 03/24/18 04:20 WBC RBC Hgb Hct MCV MCH MCHC RDW Plt Count MPV Neut % (Auto) Lymph % (Auto) [place] % (Auto) Eos % (Auto) Baso % (Auto) Neut # (Auto) Lymph # (Auto) [place] # (Auto) Eos # (Auto) Baso # (Auto) WBC Differential Differential Comment Sodium 139 Potassium 3.6 Chloride 105 Carbon Dioxide 28.0 Anion Gap 6 BUN 11 Creatinine 0.65 Estimated GFR Greater than 89 POC Glucose Random Glucose 161 H Calcium 7.6 L Total Bilirubin 0.4 AST 13 L ALT 58 Alkaline Phosphatase 125 H Total Protein 5.7 L Albumin 1.8 L Microbiology 03/20/18 22:20 Blood - Peripheral Aerobic Blood Culture - Preliminary No growth in 3 days 03/20/18 22:20 Blood - Peripheral Anaerobic Blood Culture - Final QNS - See aerobic report. 03/20/18 22:15 Blood - Peripheral Aerobic Blood Culture - Preliminary No growth in 3 days 03/20/18 22:15 Blood - Peripheral Anaerobic Blood Culture - Final QNS - See aerobic report. 03/19/18 15:50 Blood - Peripheral Aerobic Blood Culture - Final Klebsiella pneumoniae Escherichia coli 03/19/18 15:50 Blood - Peripheral Anaerobic Blood Culture - Preliminary No growth in 4 days - Imaging Impressions Percutaneous Cholangiogram 03/22/18 00:00 CONCLUSION: 1. Uncomplicated percutaneous cholecystostomy as above. - Procedures - Pre Procedure Diagnosis (1) Cholecystitis - Post Procedure Diagnosis (1) Cholecystitis - Procedure Information Procedure Date: 03/22/18 Supervising Radiologist: Konstantin Owen MD Estimated blood loss (mL): 0 Anesthesia: Local, Analgesia - Plan of Activity Patient to Unit: Nursing Unit Patient Condition: Poor Additional Comments: Cholecystomy completed. 8 tunisian tube placed. Copious amounts of black bile and thick sludge aspirated from the gallbladder. Cardiac Catheterization IMPRESSION: 1. Non-ST elevation myocardial infarction. 2. Cholecystitis, status post percutaneous cholecystostomy tube. 3. Multivessel coronary artery disease. RECOMMENDATIONS: 1. Mr. Bridges has extensive coronary artery disease, specifically with an extremely long LAD lesion covering multiple diagonals. 2. I will discuss the case with CT surgery for consideration of coronary artery bypass grafting. Obviously, this is a complex issue with him having acute cholecystitis, although he has a percutaneous cholecystostomy tube placed. 3. Further recommendations will be made based on the hospital course. Thank you for allowing me to see Sandip Bridges. If there are any questions, please do not hesitate to call. Bernardino Pérez, 03/23/2018, 10:11 AM Assessment and Plan - Plan 1. Intractable Abdominal pain continue cardiac telemetry monitoring and continuous pulse oximetry monitoring. white count was mildly elevated at 13.6, lactic acid was normal at 2.0. Glucose was mildly elevated at 218. CT of the abdomen and pelvis reveals Short segmental concentric wall thickening is identified in the distal descending colon. Colon malignancy needs to be excluded. no acute inflammation. continue tachycardic was started on antibiotics in ER, for empiric coverage with Cefepime asked for GI specialist consult. ECG sinus tachycardia. started on Cefepime and Flagyl. Culture positive for Klebsiella Pneumonia. 03/23: Cholecystostomy tube placement done yesterday by Doctor Konstantin Owen , found Copious amounts of black bile and thick sludge aspirated from the gallbladder. General energy conservation specialist following, and recommended to continue this Tube for the next 3 to 6 weeks. Not surgical candidate for Laparoscopic cholecystectomy 03/24: ID recommended to continue Cefepime and stopped Flagyl. 2. Hyperlipidemia continue Home medicines. 3. Sepsis improving condition. 4. DM II Uncontrolled started on Levemir 5 units BID and increased to sliding scale Medium dose. 5. GERD on PPIs. 6. NSTEMI at this time having his KELLY, as per blasting entry specialist the Troponin elevation may be secondary to Sepsis and possible endocarditis, KELLY negative for vegetation. Status post Cardiac Catheterization , discussed with Doctor Bernardino Pérez at this time and due to Multivessel Coronary Artery disease asked for Cardiothoracic surgery consult extensive long LAD lesion covering multiple diagonals, as per Cardiothoracic surgery will perform surgery once patient is more stable. 7. Hypokalemia replaced asked for magnesium level. DVT prophylaxis with Heparin Code Status: Full Code. Discussed Condition With: Patient and Nurse Miss Patel Discharge Planning: Once cleared by specialists.
[2018-03-24] MEDS: Magnesium Oxide 400 MG Tablet PO SCH ×2 (09:08→20:59)
[2018-03-24] MEDS: Insulin Detemir Inj 1,000 UNIT/10 ML Vial SQ SCH ×2 (09:10→20:59)
[2018-03-24] MEDS: dilTIAZem 30 MG Tablet PO SCH ×4 (09:11→21:34)
[2018-03-24] MEDS: Senna/Docusate Sodium 8.6/50 MG Tablet PO SCH ×2 (09:11→20:59)
[2018-03-24] MEDS: Sodium Chloride 0.9% 2 ML Flush BID IV.FLUSH SCH ×2 (09:13→21:00)
--- NOTE | 2018-03-24 09:45 | P.PNGS ---
Subjective Interval history: Not feeling so great today Physical Exam Vital signs: Vital Signs 03/23/18 11:00 03/23/18 12:00 03/23/18 13:00 Temperature 98.4 F Pulse Rate 73 80 82 Respiratory Rate 20 Blood Pressure 147/71 H Pulse Oximetry 97 03/23/18 14:00 03/23/18 15:00 03/23/18 16:00 Temperature 99.3 F Pulse Rate 76 74 76 Respiratory Rate 20 Blood Pressure 155/72 H Pulse Oximetry 95 03/23/18 17:00 03/23/18 18:00 03/23/18 19:00 Temperature Pulse Rate 80 82 70 Respiratory Rate Blood Pressure Pulse Oximetry 03/23/18 20:00 03/23/18 21:00 03/23/18 21:35 Temperature 98.7 F Pulse Rate 82 72 Respiratory Rate 18 16 Blood Pressure 129/60 Pulse Oximetry 95 03/23/18 22:00 03/23/18 23:00 03/24/18 00:00 Temperature 98.6 F Pulse Rate 72 74 70 Respiratory Rate 18 Blood Pressure 100/60 Pulse Oximetry 95 03/24/18 01:00 03/24/18 01:25 03/24/18 02:00 Temperature Pulse Rate 68 68 Respiratory Rate 16 Blood Pressure Pulse Oximetry 03/24/18 03:00 03/24/18 04:00 03/24/18 05:00 Temperature 98.7 F Pulse Rate 79 79 74 Respiratory Rate 18 Blood Pressure 110/64 Pulse Oximetry 95 03/24/18 06:00 Temperature Pulse Rate 79 Respiratory Rate Blood Pressure Pulse Oximetry Intake & Output 03/23/18 03/24/18 03/24/18 18:59 06:59 18:59 Intake Total 1050 / 1050 2780 / 2780 Output Total 575 / 575 325 / 325 Balance 475 / 475 2455 / 2455 Weight 110.9 kg Intake: IV 550 / 550 2300 / 2300 Cordarone Inj 450 MG In D5W Inj 250 / 250 241 ML @ 1 MG/MIN 33.33 mls/hr IV.CONT TITRATE PRN Rx#: [id number] LR 1000 mL Inj 1,000 ML @ 100 2000 / 2000 mls/hr IV.CONT .Q10H THOMAS Rx#: [id number] Maxipime Inj 2,000 MG In NS Inj 200 / 200 100 / 100 100 ML @ 200 mls/hr IV.SIG Q8H THOMAS Rx#:[id number] Flagyl 500 MG Inj 100 ML @ 100 100 / 100 200 / 200 mls/hr IV.SIG Q8H THOMAS Rx#: [id number] Oral 500 / 500 480 / 480 Output: Urine 525 / 525 325 / 325 Wound Drainage 50 / 50 Right Lower Abdomen 50 / 50 Other: # Voids 3 # Incontinent Voids 1 Date of Last Bowel Movement 03/20/18 03/20/18 Narrative: Alert and awake Appears pale Abd: soft; tender in RUQ although improved Cholecystostomy tube in place with thin brown drainage Results - Labs 04/04/18 05:58 04/04/18 05:58 Laboratory Results - last 24 hr 03/23/18 03/23/18 03/23/18 12:13 12:13 16:30 WBC 16.2 H RBC 3.73 L Hgb 10.7 L Hct 33.8 L MCV 90.6 MCH 28.6 MCHC 31.6 L RDW 15.1 Plt Count 164 MPV 9.7 Neut % (Auto) 84.0 H Lymph % (Auto) 6.6 L [place] % (Auto) 8.7 H Eos % (Auto) 0.4 Baso % (Auto) 0.3 Neut # (Auto) 13.6 H Lymph # (Auto) 1.1 [place] # (Auto) 1.4 H Eos # (Auto) 0.1 Baso # (Auto) 0.0 WBC Differential . Differential Comment Auto diff final Sodium 138 Potassium 3.7 Chloride 104 Carbon Dioxide 24.0 Anion Gap 10 BUN 13 Creatinine 0.62 Estimated GFR Greater than 89 POC Glucose 206 H Random Glucose 143 H Calcium 7.8 L Total Bilirubin 0.5 AST 17 ALT 78 Alkaline Phosphatase 131 H Total Protein 6.1 L D Albumin 2.0 L 03/23/18 03/24/18 03/24/18 21:16 04:20 04:20 WBC 13.0 H RBC 3.39 L Hgb 9.8 L Hct 29.9 L MCV 88.2 MCH 28.8 MCHC 32.7 RDW 14.6 Plt Count 153 MPV 10.0 Neut % (Auto) 78.5 H Lymph % (Auto) 9.6 [place] % (Auto) 10.3 H Eos % (Auto) 1.1 Baso % (Auto) 0.5 Neut # (Auto) 10.2 H Lymph # (Auto) 1.2 [place] # (Auto) 1.3 H Eos # (Auto) 0.1 Baso # (Auto) 0.1 WBC Differential . Differential Comment Auto diff final Sodium 139 Potassium 3.6 Chloride 105 Carbon Dioxide 28.0 Anion Gap 6 BUN 11 Creatinine 0.65 Estimated GFR Greater than 89 POC Glucose 192 H Random Glucose 161 H Calcium 7.6 L Total Bilirubin 0.4 AST 13 L ALT 58 Alkaline Phosphatase 125 H Total Protein 5.7 L Albumin 1.8 L - Imaging Imaging: ITS Impressions Abdomen/Pelvis CT 03/19/18 10:38 CONCLUSION: 1. Short segmental concentric wall thickening is identified in the distal descending colon. Colon malignancy needs to be excluded. 2. Calcified gallstones with moderate distention of the gallbladder. 3. No other significant abnormality. Chest CTA 03/19/18 13:37 CONCLUSION: 1. No evidence of acute pulmonary embolism. 2. Mild subpleural airspace disease and reticulations which may be chronic. 3. No evidence of segmental or lobar lung consolidation. Abdomen/Pelvis CTA 03/22/18 00:00 CONCLUSION: 1. Prominent gallbladder distention and surrounding inflammatory changes consistent with cholecystitis 2. No acute vascular findings in the abdomen or pelvis. Percutaneous Cholangiogram 03/22/18 00:00 CONCLUSION: 1. Uncomplicated percutaneous cholecystostomy as above. Assessment and Plan - Assessment (1) Intractable abdominal pain Code(s): R10.9 - Unspecified abdominal pain Status: Acute (2) NSTEMI (non-ST elevated myocardial infarction) Code(s): I21.4 - Non-ST elevation (NSTEMI) myocardial infarction Status: Acute (3) Afib Code(s): I48.91 - Unspecified atrial fibrillation Status: Acute (4) Cholecystitis Code(s): K81.9 - Cholecystitis, unspecified Status: Acute Plan: 67 year old male with afib RVR; s/p cardiac cath; cholecystics -S/p cardiac cath--- multivessel CAD found--Consult to CTS -Cholecystostomy tube in place---continue to gravity drainage -WBC trending down -Monitor H/H-- trending down -Diet as tolerated -Patient is not a surgical candidate at this time for laparoscopic cholecystectomy due to cardiac condition---will keep burt tube in place for several weeks Stable from GS standpoint; continue with cholecystostomy tube for now. The exam, history, and the medical decision-making described in the above note were completed with the assistance of the mid-level provider. I reviewed and agree with the findings presented. I attest that I had a [id number] encounter with the patient on the same day, and personally performed and documented my assessment and findings in the medical record.
--- NOTE | 2018-03-24 10:53 | P.PNID ---
Subjective Remarks: ID coverage. Mr. Bridges is a 67-year-old male patient who presented to the emergency room on March 19, 2018. Patient initially reported nausea vomiting as well as abdominal pain on admission. Of note patient's past medical history significant for gastric bypass surgery many years back. Patient also has a history of type 2 diabetes, GERD, hyperlipidemia as well as morbid obesity. Condition he reports chronic lower back pain as well as arthritis. Patient reports that his abdominal pain started in the left lower quadrant associated with nausea and vomiting of clear emesis. He reports that he was still vomiting until yesterday and vomiting has now resolved. He continues to have abdominal pain. Patient denied any fever chills or night sweats prior to admission. Patient reports that his last EGD and colonoscopy was in 2006 prior to gastric bypass surgery. Patient reports he has lost a total of 257 pounds since he has had surgery. Patient was asked to have a repeat colonoscopy in 10 years if there were no abnormal findings. He denies any use of alcohol or tobacco products recently but has used in the past. He reports that his mother had gastric cancer in his brother also had a gastric cancer at the age of 38 years. He denies any hematemesis or any black tarry stools or fresh blood in stool. Patient reports that he has a bowel movement every 1-2 days. He denies any history of constipation and diarrhea. A CT of the abdomen pelvis done on admission reveals thickening of the distal descending colon and there is a concern for colonic mass and therefore GI has been consulted. Due to elevated troponins cardiology has also been called and there is a plan for KELLY and possibly a cardiac cath in the future. Blood cultures drawn and admission are positive for gram-negative rods and infectious diseases consulted for evaluation and management of the same. Notes reviewed. Patient is post cholecystostomy tube placement. He is complaining of complaining of pain in his right abdomen. Afebrile. Denies fever or chills. Denies nausea. Repeat blood culture has no growth. KELLY negative. Antibiotics: cefepime IV Flagyl IV Lines: Lines ok Past Medical History: reviewed Allergies/Adverse Reactions: Allergies No Known Allergies Allergy (Verified 03/19/18 10:28) Objective Vital Signs 03/23/18 11:00 03/23/18 12:00 03/23/18 13:00 Temperature 98.4 F Pulse Rate 73 80 82 Respiratory Rate 20 Blood Pressure 147/71 H Pulse Oximetry 97 03/23/18 14:00 03/23/18 15:00 03/23/18 16:00 Temperature 99.3 F Pulse Rate 76 74 76 Respiratory Rate 20 Blood Pressure 155/72 H Pulse Oximetry 95 03/23/18 17:00 03/23/18 18:00 03/23/18 19:00 Temperature Pulse Rate 80 82 70 Respiratory Rate Blood Pressure Pulse Oximetry 03/23/18 20:00 03/23/18 21:00 03/23/18 21:35 Temperature 98.7 F Pulse Rate 82 72 Respiratory Rate 18 16 Blood Pressure 129/60 Pulse Oximetry 95 03/23/18 22:00 03/23/18 23:00 03/24/18 00:00 Temperature 98.6 F Pulse Rate 72 74 70 Respiratory Rate 18 Blood Pressure 100/60 Pulse Oximetry 95 03/24/18 01:00 03/24/18 01:25 03/24/18 02:00 Temperature Pulse Rate 68 68 Respiratory Rate 16 Blood Pressure Pulse Oximetry 03/24/18 03:00 03/24/18 04:00 03/24/18 05:00 Temperature 98.7 F Pulse Rate 79 79 74 Respiratory Rate 18 Blood Pressure 110/64 Pulse Oximetry 95 03/24/18 06:00 Temperature Pulse Rate 79 Respiratory Rate Blood Pressure Pulse Oximetry Intake & Output 03/23/18 03/24/18 03/24/18 18:59 06:59 18:59 Intake Total 1050 / 1050 2780 / 2780 Output Total 575 / 575 325 / 325 Balance 475 / 475 2455 / 2455 Weight 110.9 kg Intake: IV 550 / 550 2300 / 2300 Cordarone Inj 450 MG In D5W Inj 250 / 250 241 ML @ 1 MG/MIN 33.33 mls/hr IV.CONT TITRATE PRN Rx#: [id number] LR 1000 mL Inj 1,000 ML @ 100 2000 / 2000 mls/hr IV.CONT .Q10H [facility] Rx#: [id number] Maxipime Inj 2,000 MG In NS Inj 200 / 200 100 / 100 100 ML @ 200 mls/hr IV.SIG Q8H [facility] Rx#:[id number] Flagyl 500 MG Inj 100 ML @ 100 100 / 100 200 / 200 mls/hr IV.SIG Q8H [facility] Rx#: [id number] Oral 500 / 500 480 / 480 Output: Urine 525 / 525 325 / 325 Wound Drainage 50 / 50 Right Lower Abdomen 50 / 50 Other: # Voids 3 # Incontinent Voids 1 Date of Last Bowel Movement 03/20/18 03/20/18 03/20/18 22:20 Blood - Peripheral Aerobic Blood Culture - Preliminary No growth in 3 days 03/20/18 22:20 Blood - Peripheral Anaerobic Blood Culture - Final QNS - See aerobic report. 03/20/18 22:15 Blood - Peripheral Aerobic Blood Culture - Preliminary No growth in 3 days 03/20/18 22:15 Blood - Peripheral Anaerobic Blood Culture - Final QNS - See aerobic report. 03/19/18 15:50 Blood - Peripheral Aerobic Blood Culture - Final Klebsiella pneumoniae Escherichia coli 03/19/18 15:50 Blood - Peripheral Anaerobic Blood Culture - Preliminary No growth in 4 days 03/19/18 15:45 Blood - Peripheral Aerobic Blood Culture - Final Klebsiella pneumoniae 03/19/18 15:45 Blood - Peripheral Anaerobic Blood Culture - Final Klebsiella pneumoniae Lab - Hematology Results 03/23/18 03/24/18 12:13 04:20 WBC 16.2 H 13.0 H RBC 3.73 L 3.39 L Hgb 10.7 L 9.8 L Hct 33.8 L 29.9 L MCV 90.6 88.2 MCH 28.6 28.8 MCHC 31.6 L 32.7 RDW 15.1 14.6 Plt Count 164 153 MPV 9.7 10.0 Neut % (Auto) 84.0 H 78.5 H Lymph % (Auto) 6.6 L 9.6 [place] % (Auto) 8.7 H 10.3 H Eos % (Auto) 0.4 1.1 Baso % (Auto) 0.3 0.5 Neut # (Auto) 13.6 H 10.2 H Lymph # (Auto) 1.1 1.2 [place] # (Auto) 1.4 H 1.3 H Eos # (Auto) 0.1 0.1 Baso # (Auto) 0.0 0.1 WBC Differential . . Differential Comment Auto diff final Auto diff final Lab - Chemistry Results 03/22/18 03/22/18 03/22/18 11:11 16:00 20:57 Sodium Potassium Chloride Carbon Dioxide Anion Gap BUN Creatinine Estimated GFR POC Glucose 191 H 281 H Random Glucose Calcium Magnesium 2.0 Total Bilirubin AST ALT Alkaline Phosphatase Total Protein Albumin 03/22/18 03/23/18 03/23/18 21:42 03:28 08:41 Sodium Potassium Chloride Carbon Dioxide Anion Gap BUN Creatinine Estimated GFR POC Glucose 235 H 164 H 151 H Random Glucose Calcium Magnesium Total Bilirubin AST ALT Alkaline Phosphatase Total Protein Albumin 03/23/18 03/23/18 03/23/18 12:13 16:30 21:16 Sodium 138 Potassium 3.7 Chloride 104 Carbon Dioxide 24.0 Anion Gap 10 BUN 13 Creatinine 0.62 Estimated GFR Greater than 89 POC Glucose 206 H 192 H Random Glucose 143 H Calcium 7.8 L Magnesium Total Bilirubin 0.5 AST 17 ALT 78 Alkaline Phosphatase 131 H Total Protein 6.1 L D Albumin 2.0 L 03/24/18 04:20 Sodium 139 Potassium 3.6 Chloride 105 Carbon Dioxide 28.0 Anion Gap 6 BUN 11 Creatinine 0.65 Estimated GFR Greater than 89 POC Glucose Random Glucose 161 H Calcium 7.6 L Magnesium Total Bilirubin 0.4 AST 13 L ALT 58 Alkaline Phosphatase 125 H Total Protein 5.7 L Albumin 1.8 L Imaging: ITS Impressions Abdomen/Pelvis CT 03/19/18 10:38 CONCLUSION: 1. Short segmental concentric wall thickening is identified in the distal descending colon. Colon malignancy needs to be excluded. 2. Calcified gallstones with moderate distention of the gallbladder. 3. No other significant abnormality. Chest CTA 03/19/18 13:37 CONCLUSION: 1. No evidence of acute pulmonary embolism. 2. Mild subpleural airspace disease and reticulations which may be chronic. 3. No evidence of segmental or lobar lung consolidation. Abdomen/Pelvis CTA 03/22/18 00:00 CONCLUSION: 1. Prominent gallbladder distention and surrounding inflammatory changes consistent with cholecystitis 2. No acute vascular findings in the abdomen or pelvis. Percutaneous Cholangiogram 03/22/18 00:00 CONCLUSION: 1. Uncomplicated percutaneous cholecystostomy as above. Physical Exam: GENERAL: No acute distress. SKIN: Cool and dry, no generalized rash HEAD: Atraumatic. Normocephalic. No temporal or scalp tenderness. EYES: Pupils equal round and reactive. Scleral icterus. No injection or drainage. No petechia ENT: Oral mucosa moist. NECK: Trachea midline. Supple. CARDIOVASCULAR: HS audible. RESPIRATORY: Clear to auscultation. GASTROINTESTINAL: Abdomen soft , obese, tenderness in the right upper quadrant. MUSCULOSKELETAL: Extremities without clubbing, cyanosis or edema. NEUROLOGICAL: Alert oriented 3. Nonfocal. Psych cooperative IV line sites ok. Assessment and Plan - Plan Sepsis present on admission Gram-negative bacteremia E. coli and Klebsiella pneumonia. Abnormal CT scan indicating cholecystitis which is likely the source of the sepsis. Leukocytosis. White blood cell count improving. Non-ST elevation [place] likely secondary to sepsis cardiology on board -KELLY negative. Recommendations: Continue cefepime IV. Stop Flagyl. Follow clinical course Discussed with patient. Dr Melina Sanchez back tomorrow to resume ID care.
--- NOTE | 2018-03-24 12:25 | P.PNCA ---
Subjective Interval history: No events overnight Feels ok today No chest pain No abdominal pain Didn't sleep well last night Medications and Allergies Active Medications: Active Medications Acetaminophen (Tylenol) 650 mg PO Q4H PRN PRN Reason: Temp > 100.4 Al Hydroxide/Mg Hydroxide (Milk Of Magnesia Liq) 30 ml PO Q12H PRN PRN Reason: Mild Constipation Bisacodyl (Dulcolax Supp) 10 mg RECTAL DAILY PRN PRN Reason: SEVERE CONSITIPATION Dextrose (D50w Vial) 50 ml IV.PUSH UNSCH PRN PRN Reason: PER HYPOGLYCEMIA PROTOCOL Diltiazem HCl (Cardizem) 30 mg PO QID [facility] Last Admin: 03/24/18 09:11 Dose: 30 mg Glucagon (Glucagon Inj) 1 mg OTHER PRN PRN PRN Reason: for Hypoglycemia Protocol Lactated Ringer's (Lr 1000 Ml Inj) 1,000 mls @ 100 mls/hr IV.CONT .Q10H [facility] Last Infusion: 03/24/18 11:30 Dose: Infused Cefepime HCl 2,000 mg/ Sodium (Chloride) 100 mls @ 200 mls/hr IV.SIG Q8H [facility] Last Infusion: 03/24/18 11:17 Dose: Infused Amiodarone HCl 450 mg/ (Dextrose) 250 mls @ 33.33 mls/hr IV.CONT TITRATE PRN; Protocol PRN Reason: Per Protocol Last Titration: 03/23/18 14:30 Dose: Infused Insulin Aspart (Novolog Insulin Correctional Sugar Inj) 0 unit SQ 08,12,17,21, 03 [facility]; Protocol Last Admin: 03/24/18 09:09 Dose: 1 unit Insulin Detemir (Levemir Inj) 5 unit SQ BID [facility] Last Admin: 03/24/18 09:10 Dose: 5 unit Lactulose (Lactulose Liq) 30 ml PO DAILY PRN PRN Reason: SEVERE CONSITIPATION Magnesium Oxide (Mag-Ox) 400 mg PO BID [facility] Last Admin: 03/24/18 09:08 Dose: 400 mg Morphine Sulfate (Morphine Inj) 2 mg IV.PUSH Q3H PRN PRN Reason: PAIN SCALE 6 TO 10 Last Admin: 03/24/18 09:12 Dose: 2 mg Ondansetron HCl (Zofran Inj) 4 mg IV.PUSH Q6H PRN PRN Reason: NAUSEA OR VOMITING Last Admin: 03/24/18 09:11 Dose: 4 mg Pantoprazole Sodium (Protonix) 40 mg PO DAILY [facility] Last Admin: 03/24/18 09:09 Dose: 40 mg Senna/Docusate Sodium (Carlotta-Colace) 1 tab PO BID [facility] Last Admin: 03/24/18 09:11 Dose: 1 tab Sennosides (Senokot) 17.2 mg PO Q12H PRN PRN Reason: Moderate Constipation Sodium Chloride (Ns Flush) 2 ml IV.FLUSH BID [facility] Last Admin: 03/24/18 09:13 Dose: 2 ml Sodium Chloride (Ns Flush) 2 ml IV.FLUSH PRN PRN PRN Reason: FLUSH AFTER USING IV ACCESS Allergies Allergy/AdvReac Type Severity Reaction Status Date / Time No Known Allergies Allergy Verified 03/19/18 10:28 Home Medications Medication Instructions Recorded Confirmed Type atorvastatin 20 mg PO DAILY 03/19/18 03/19/18 History liraglutide [Victoza 2-Sonido] 0.6 mg SUBCUT DAILY 03/19/18 03/19/18 History metformin 1,000 mg PO BID 03/19/18 03/19/18 History omeprazole-sodium bicarbonate 1 cap PO DAILY 03/19/18 03/19/18 History pantoprazole 20 mg PO DAILY 03/19/18 03/19/18 History Physical Exam Vital signs: Vital Signs 03/23/18 13:00 03/23/18 14:00 03/23/18 15:00 Temperature Pulse Rate 82 76 74 Respiratory Rate Blood Pressure Pulse Oximetry 03/23/18 16:00 03/23/18 17:00 03/23/18 18:00 Temperature 99.3 F Pulse Rate 76 80 82 Respiratory Rate 20 Blood Pressure 155/72 H Pulse Oximetry 95 03/23/18 19:00 03/23/18 20:00 03/23/18 21:00 Temperature 98.7 F Pulse Rate 70 82 72 Respiratory Rate 18 Blood Pressure 129/60 Pulse Oximetry 95 03/23/18 21:35 03/23/18 22:00 03/23/18 23:00 Temperature Pulse Rate 72 74 Respiratory Rate 16 Blood Pressure Pulse Oximetry 03/24/18 00:00 03/24/18 01:00 03/24/18 01:25 Temperature 98.6 F Pulse Rate 70 68 Respiratory Rate 18 16 Blood Pressure 100/60 Pulse Oximetry 95 03/24/18 02:00 03/24/18 03:00 03/24/18 04:00 Temperature 98.7 F Pulse Rate 68 79 79 Respiratory Rate 18 Blood Pressure 110/64 Pulse Oximetry 95 03/24/18 05:00 03/24/18 06:00 03/24/18 07:00 Temperature Pulse Rate 74 79 74 Respiratory Rate Blood Pressure Pulse Oximetry 03/24/18 08:00 03/24/18 09:00 03/24/18 10:00 Temperature Pulse Rate 80 76 87 Respiratory Rate 20 Blood Pressure 102/58 L Pulse Oximetry 95 03/24/18 11:00 03/24/18 11:40 Temperature Pulse Rate 65 Respiratory Rate Blood Pressure Pulse Oximetry 94 L Intake & Output 03/23/18 03/24/18 03/24/18 18:59 06:59 18:59 Intake Total 1050 / 1050 2780 / 2780 1200 / 1200 Output Total 575 / 575 325 / 325 Balance 475 / 475 2455 / 2455 1200 / 1200 Weight 110.9 kg Intake: IV 550 / 550 2300 / 2300 1200 / 1200 Cordarone Inj 450 MG In D5W Inj 250 / 250 241 ML @ 1 MG/MIN 33.33 mls/hr IV.CONT TITRATE PRN Rx#: [id number] LR 1000 mL Inj 1,000 ML @ 100 2000 / 2000 1000 / 1000 mls/hr IV.CONT .Q10H [facility] Rx#: [id number] Maxipime Inj 2,000 MG In NS Inj 200 / 200 100 / 100 100 / 100 100 ML @ 200 mls/hr IV.SIG Q8H [facility] Rx#:[id number] Flagyl 500 MG Inj 100 ML @ 100 100 / 100 200 / 200 100 / 100 mls/hr IV.SIG Q8H [facility] Rx#: [id number] Oral 500 / 500 480 / 480 Output: Urine 525 / 525 325 / 325 Wound Drainage 50 / 50 Right Lower Abdomen 50 / 50 Other: # Voids 3 # Incontinent Voids 1 Date of Last Bowel Movement 03/20/18 03/20/18 03/20/18 Narrative: GENERAL: NAD, AAOx3 SKIN: Warm and dry. HEAD: Atraumatic. Normocephalic. EYES: Pupils equal and round. No scleral icterus. No injection or drainage. ENT: No nasal bleeding or discharge. Mucous membranes pink and moist. NECK: Trachea midline. No JVD. CARDIOVASCULAR: Irregularly irregular RESPIRATORY: No accessory muscle use. Clear to auscultation. Breath sounds equal bilaterally. GASTROINTESTINAL: Abdomen soft, non-tender, nondistended. Hepatic and splenic margins not palpable. MUSCULOSKELETAL: Extremities without clubbing, cyanosis, or edema. No obvious deformities. NEUROLOGICAL: Awake and alert. No obvious cranial nerve deficits. Motor grossly within normal limits. Five out of 5 muscle strength in the arms and legs. Normal speech. PSYCHIATRIC: Appropriate mood and affect; insight and judgment normal. Results 03/24/18 04:20 03/24/18 04:20 Cardiac Enzymes 03/23/18 03/24/18 Range/Units 12:13 04:20 AST 17 13 L (15-37) U/L CBC 03/23/18 03/24/18 Range/Units 12:13 04:20 WBC 16.2 H 13.0 H (4.0-11.0) th/mm3 RBC 3.73 L 3.39 L (4.50-5.90) mil/mm3 Hgb 10.7 L 9.8 L (13.0-17.0) gm/dL Hct 33.8 L 29.9 L (39.0-51.0) % Plt Count 164 153 (150-450) th/mm3 Neut # (Auto) 13.6 H 10.2 H (1.8-7.7) th/mm3 Lymph # (Auto) 1.1 1.2 (1.0-4.8) th/mm3 [place] # (Auto) 1.4 H 1.3 H (0.0-0.9) th/mm3 Eos # (Auto) 0.1 0.1 (0.0-0.4) th/mm3 Baso # (Auto) 0.0 0.1 (0.0-0.2) th/mm3 Comprehensive Metabolic Panel 03/23/18 03/24/18 Range/Units 12:13 04:20 Sodium 138 139 (136-145) meq/L Potassium 3.7 3.6 (3.5-5.1) meq/L Chloride 104 105 (98-107) meq/L Carbon Dioxide 24.0 28.0 (21.0-32.0) meq/L BUN 13 11 (7-18) mg/dL Creatinine 0.62 0.65 (0.60-1.30) mg/dL Calcium 7.8 L 7.6 L (8.5-10.1) mg/dL AST 17 13 L (15-37) U/L ALT 78 58 (12-78) U/L Alkaline Phosphatase 131 H 125 H (45-117) U/L Total Protein 6.1 L D 5.7 L (6.4-8.2) g/dL Albumin 2.0 L 1.8 L (3.4-5.0) g/dL Intake and Output 03/23/18 03/24/18 03/24/18 22:59 06:59 14:59 Intake Total 1700 / 1700 1680 / 1680 1200 / 1200 Output Total 525 / 525 325 / 325 Balance 1175 / 1175 1355 / 1355 1200 / 1200 Intake: IV 1200 / 1200 1200 / 1200 1200 / 1200 LR 1000 mL Inj 1,000 ML @ 100 1000 / 1000 1000 / 1000 1000 / 1000 mls/hr IV.CONT .Q10H [facility] Rx#: [id number] Maxipime Inj 2,000 MG In NS Inj 100 / 100 100 / 100 100 / 100 100 ML @ 200 mls/hr IV.SIG Q8H [facility] Rx#:[id number] Flagyl 500 MG Inj 100 ML @ 100 100 / 100 100 / 100 100 / 100 mls/hr IV.SIG Q8H [facility] Rx#: [id number] Oral 500 / 500 480 / 480 Output: Urine 525 / 525 325 / 325 Wound Drainage 0 / 0 Right Lower Abdomen 0 / 0 Other: # Voids 3 # Incontinent Voids 1 Date of Last Bowel Movement 03/20/18 03/20/18 03/20/18 Weight 110.9 kg - Imaging and Cardiology Imaging: Impressions Percutaneous Cholangiogram 03/22/18 00:00 CONCLUSION: 1. Uncomplicated percutaneous cholecystostomy as above. Assessment and Plan - Assessment (1) NSTEMI (non-ST elevated myocardial infarction) Code(s): I21.4 - Non-ST elevation (NSTEMI) myocardial infarction Status: Acute (2) Afib Code(s): I48.91 - Unspecified atrial fibrillation Status: Acute (3) SIRS (systemic inflammatory response syndrome) Code(s): R65.10 - Systemic inflammatory response syndrome (SIRS) of non- infectious origin without acute organ dysfunction Status: Acute (4) Intractable abdominal pain Code(s): R10.9 - Unspecified abdominal pain Status: Acute - Plan 1) Abdominal pain/nausea/emesis Found to have cholecystitis Perc burt drain in place with relief of symptoms 2) NSTEMI Found to have multivessel CAD CT surgery evaluation Complex case with acute cholecystitis with percutaneous cholecystostomy tube 3) Afib New onset Started on Cardizem, heart rates controlled 4) Bacteremia KELLY negative for vegetation, no signs of endocarditis 5) Discussed with Dr. Calvo Will hold off on Cscope due to multivessel CAD 6) Await CT surgery evaluation If concerns over the weekend, please call service for covering physician
--- NOTE | 2018-03-24 14:07 | P.PNGI ---
Subjective Interval history: Pt resting in bed, complaining of some pain to cholecystostomy tube site. Reports some intermittent nausea, denies emesis. Has not had BM. <Jennie Cordero - Last Filed: 03/24/18 14:04> Physical Exam Vital signs: Vital Signs 03/23/18 15:00 03/23/18 16:00 03/23/18 17:00 Temperature 99.3 F Pulse Rate 74 76 80 Respiratory Rate 20 Blood Pressure 155/72 H Pulse Oximetry 95 03/23/18 18:00 03/23/18 19:00 03/23/18 20:00 Temperature 98.7 F Pulse Rate 82 70 82 Respiratory Rate 18 Blood Pressure 129/60 Pulse Oximetry 95 03/23/18 21:00 03/23/18 21:35 03/23/18 22:00 Temperature Pulse Rate 72 72 Respiratory Rate 16 Blood Pressure Pulse Oximetry 03/23/18 23:00 03/24/18 00:00 03/24/18 01:00 Temperature 98.6 F Pulse Rate 74 70 68 Respiratory Rate 18 Blood Pressure 100/60 Pulse Oximetry 95 03/24/18 01:25 03/24/18 02:00 03/24/18 03:00 Temperature Pulse Rate 68 79 Respiratory Rate 16 Blood Pressure Pulse Oximetry 03/24/18 04:00 03/24/18 05:00 03/24/18 06:00 Temperature 98.7 F Pulse Rate 79 74 79 Respiratory Rate 18 Blood Pressure 110/64 Pulse Oximetry 95 03/24/18 07:00 03/24/18 08:00 03/24/18 09:00 Temperature Pulse Rate 74 80 76 Respiratory Rate 20 Blood Pressure 102/58 L Pulse Oximetry 95 03/24/18 10:00 03/24/18 11:00 03/24/18 11:40 Temperature Pulse Rate 87 65 Respiratory Rate Blood Pressure Pulse Oximetry 94 L 03/24/18 12:00 03/24/18 13:00 Temperature 98 F Pulse Rate 72 87 Respiratory Rate 22 Blood Pressure 102/62 Pulse Oximetry 98 Intake & Output 03/23/18 03/24/18 03/24/18 18:59 06:59 18:59 Intake Total 1050 / 1050 2780 / 2780 1200 / 1200 Output Total 575 / 575 325 / 325 Balance 475 / 475 2455 / 2455 1200 / 1200 Weight 110.9 kg Intake: IV 550 / 550 2300 / 2300 1200 / 1200 Cordarone Inj 450 MG In D5W Inj 250 / 250 241 ML @ 1 MG/MIN 33.33 mls/hr IV.CONT TITRATE PRN Rx#: [id number] LR 1000 mL Inj 1,000 ML @ 100 2000 / 2000 1000 / 1000 mls/hr IV.CONT .Q10H THOMAS Rx#: [id number] Maxipime Inj 2,000 MG In NS Inj 200 / 200 100 / 100 100 / 100 100 ML @ 200 mls/hr IV.SIG Q8H THOMAS Rx#:[id number] Flagyl 500 MG Inj 100 ML @ 100 100 / 100 200 / 200 100 / 100 mls/hr IV.SIG Q8H THOMAS Rx#: [id number] Oral 500 / 500 480 / 480 Output: Urine 525 / 525 325 / 325 Wound Drainage 50 / 50 Right Lower Abdomen 50 / 50 Other: # Voids 3 # Incontinent Voids 1 Date of Last Bowel Movement 03/20/18 03/20/18 03/20/18 - Constitutional no acute distress - Routine HEENT Exam Head: Present: normocephalic, atraumatic - Routine Respiratory Exam Absent: accessory muscle use - Routine Abdominal Exam Present: soft, normoactive bowel sounds, tenderness (RUQ tenderness, positive cholecystostomy tube ). Absent: distended - Routine Skin Exam Present: dry, warm - Routine Neurological Exam Present: alert, oriented X3 <Jennie Cordero - Last Filed: 03/24/18 14:04> Vital signs: Vital Signs 03/23/18 18:00 03/23/18 19:00 03/23/18 20:00 Temperature 98.7 F Pulse Rate 82 70 82 Respiratory Rate 18 Blood Pressure 129/60 Pulse Oximetry 95 03/23/18 21:00 03/23/18 21:35 03/23/18 22:00 Temperature Pulse Rate 72 72 Respiratory Rate 16 Blood Pressure Pulse Oximetry 03/23/18 23:00 03/24/18 00:00 03/24/18 01:00 Temperature 98.6 F Pulse Rate 74 70 68 Respiratory Rate 18 Blood Pressure 100/60 Pulse Oximetry 95 03/24/18 01:25 03/24/18 02:00 03/24/18 03:00 Temperature Pulse Rate 68 79 Respiratory Rate 16 Blood Pressure Pulse Oximetry 03/24/18 04:00 03/24/18 05:00 03/24/18 06:00 Temperature 98.7 F Pulse Rate 79 74 79 Respiratory Rate 18 Blood Pressure 110/64 Pulse Oximetry 95 03/24/18 07:00 03/24/18 08:00 03/24/18 09:00 Temperature Pulse Rate 74 80 76 Respiratory Rate 20 Blood Pressure 102/58 L Pulse Oximetry 95 03/24/18 10:00 03/24/18 11:00 03/24/18 11:40 Temperature Pulse Rate 87 65 Respiratory Rate Blood Pressure Pulse Oximetry 94 L 03/24/18 12:00 03/24/18 13:00 03/24/18 14:00 Temperature 98 F Pulse Rate 72 87 78 Respiratory Rate 22 Blood Pressure 102/62 Pulse Oximetry 98 03/24/18 15:00 03/24/18 17:08 Temperature Pulse Rate 80 Respiratory Rate Blood Pressure Pulse Oximetry 98 Intake & Output 03/23/18 03/24/18 03/24/18 18:59 06:59 18:59 Intake Total 1050 / 1050 2780 / 2780 1200 / 1200 Output Total 575 / 575 325 / 325 Balance 475 / 475 2455 / 2455 1200 / 1200 Weight 110.9 kg Intake: IV 550 / 550 2300 / 2300 1200 / 1200 Cordarone Inj 450 MG In D5W Inj 250 / 250 241 ML @ 1 MG/MIN 33.33 mls/hr IV.CONT TITRATE PRN Rx#: [id number] LR 1000 mL Inj 1,000 ML @ 100 2000 / 2000 1000 / 1000 mls/hr IV.CONT .Q10H THOMAS Rx#: [id number] Maxipime Inj 2,000 MG In NS Inj 200 / 200 100 / 100 100 / 100 100 ML @ 200 mls/hr IV.SIG Q8H THOMAS Rx#:[id number] Flagyl 500 MG Inj 100 ML @ 100 100 / 100 200 / 200 100 / 100 mls/hr IV.SIG Q8H THOMAS Rx#: [id number] Oral 500 / 500 480 / 480 Output: Urine 525 / 525 325 / 325 Wound Drainage 50 / 50 Right Lower Abdomen 50 / 50 Other: # Voids 3 # Incontinent Voids 1 Date of Last Bowel Movement 03/20/18 03/20/18 03/20/18 <Bratu,Kimmie - Last Filed: 03/24/18 17:21> Results - Labs CBC & Chem 7: 03/24/18 04:20 03/24/18 04:20 Laboratory Results - last 24 hr 03/23/18 03/23/18 03/24/18 16:30 21:16 04:20 WBC 13.0 H RBC 3.39 L Hgb 9.8 L Hct 29.9 L MCV 88.2 MCH 28.8 MCHC 32.7 RDW 14.6 Plt Count 153 MPV 10.0 Neut % (Auto) 78.5 H Lymph % (Auto) 9.6 Murray % (Auto) 10.3 H Eos % (Auto) 1.1 Baso % (Auto) 0.5 Neut # (Auto) 10.2 H Lymph # (Auto) 1.2 Murray # (Auto) 1.3 H Eos # (Auto) 0.1 Baso # (Auto) 0.1 WBC Differential . Differential Comment Auto diff final Sodium Potassium Chloride Carbon Dioxide Anion Gap BUN Creatinine Estimated GFR POC Glucose 206 H 192 H Random Glucose Calcium Total Bilirubin AST ALT Alkaline Phosphatase Total Protein Albumin 03/24/18 03/24/18 04:20 12:07 WBC RBC Hgb Hct MCV MCH MCHC RDW Plt Count MPV Neut % (Auto) Lymph % (Auto) Murray % (Auto) Eos % (Auto) Baso % (Auto) Neut # (Auto) Lymph # (Auto) Murray # (Auto) Eos # (Auto) Baso # (Auto) WBC Differential Differential Comment Sodium 139 Potassium 3.6 Chloride 105 Carbon Dioxide 28.0 Anion Gap 6 BUN 11 Creatinine 0.65 Estimated GFR Greater than 89 POC Glucose 164 H Random Glucose 161 H Calcium 7.6 L Total Bilirubin 0.4 AST 13 L ALT 58 Alkaline Phosphatase 125 H Total Protein 5.7 L Albumin 1.8 L Microbiology 03/20/18 22:20 Blood - Peripheral Aerobic Blood Culture - Preliminary No growth in 4 days 03/20/18 22:20 Blood - Peripheral Anaerobic Blood Culture - Final QNS - See aerobic report. 03/20/18 22:15 Blood - Peripheral Aerobic Blood Culture - Preliminary No growth in 4 days 03/20/18 22:15 Blood - Peripheral Anaerobic Blood Culture - Final QNS - See aerobic report. 03/19/18 15:50 Blood - Peripheral Aerobic Blood Culture - Final Klebsiella pneumoniae Escherichia coli 03/19/18 15:50 Blood - Peripheral Anaerobic Blood Culture - Final No growth in 5 days - Procedures - Pre Procedure Diagnosis (1) Cholecystitis - Post Procedure Diagnosis (1) Cholecystitis - Procedure Information Procedure Date: 03/22/18 Supervising Radiologist: Konstantin Owen MD Estimated blood loss (mL): 0 Anesthesia: Local, Analgesia - Plan of Activity Patient to Unit: Nursing Unit Patient Condition: Poor Additional Comments: Cholecystomy completed. 8 [place] tube placed. Copious amounts of black bile and thick sludge aspirated from the gallbladder. Cardiac Catheterization IMPRESSION: 1. Non-ST elevation myocardial infarction. 2. Cholecystitis, status post percutaneous cholecystostomy tube. 3. Multivessel coronary artery disease. RECOMMENDATIONS: 1. Mr. Bridges has extensive coronary artery disease, specifically with an extremely long LAD lesion covering multiple diagonals. 2. I will discuss the case with CT surgery for consideration of coronary artery bypass grafting. Obviously, this is a complex issue with him having acute cholecystitis, although he has a percutaneous cholecystostomy tube placed. 3. Further recommendations will be made based on the hospital course. Thank you for allowing me to see Sandip Bridges. If there are any questions, please do not hesitate to call. Bernardino Pérez, 03/23/2018, 10:11 AM <Jennie Cordero - Last Filed: 03/24/18 14:04> - Labs CBC & Chem 7: 03/24/18 04:20 03/24/18 04:20 Laboratory Results - last 24 hr 03/23/18 03/24/18 03/24/18 21:16 04:20 04:20 WBC 13.0 H RBC 3.39 L Hgb 9.8 L Hct 29.9 L MCV 88.2 MCH 28.8 MCHC 32.7 RDW 14.6 Plt Count 153 MPV 10.0 Neut % (Auto) 78.5 H Lymph % (Auto) 9.6 Murray % (Auto) 10.3 H Eos % (Auto) 1.1 Baso % (Auto) 0.5 Neut # (Auto) 10.2 H Lymph # (Auto) 1.2 Murray # (Auto) 1.3 H Eos # (Auto) 0.1 Baso # (Auto) 0.1 WBC Differential . Differential Comment Auto diff final Sodium 139 Potassium 3.6 Chloride 105 Carbon Dioxide 28.0 Anion Gap 6 BUN 11 Creatinine 0.65 Estimated GFR Greater than 89 POC Glucose 192 H Random Glucose 161 H Calcium 7.6 L Total Bilirubin 0.4 AST 13 L ALT 58 Alkaline Phosphatase 125 H Total Protein 5.7 L Albumin 1.8 L 03/24/18 03/24/18 12:07 17:11 WBC RBC Hgb Hct MCV MCH MCHC RDW Plt Count MPV Neut % (Auto) Lymph % (Auto) Murray % (Auto) Eos % (Auto) Baso % (Auto) Neut # (Auto) Lymph # (Auto) Murray # (Auto) Eos # (Auto) Baso # (Auto) WBC Differential Differential Comment Sodium Potassium Chloride Carbon Dioxide Anion Gap BUN Creatinine Estimated GFR POC Glucose 164 H 184 H Random Glucose Calcium Total Bilirubin AST ALT Alkaline Phosphatase Total Protein Albumin Microbiology 03/20/18 22:20 Blood - Peripheral Aerobic Blood Culture - Preliminary No growth in 4 days 03/20/18 22:20 Blood - Peripheral Anaerobic Blood Culture - Final QNS - See aerobic report. 03/20/18 22:15 Blood - Peripheral Aerobic Blood Culture - Preliminary No growth in 4 days 03/20/18 22:15 Blood - Peripheral Anaerobic Blood Culture - Final QNS - See aerobic report. 03/19/18 15:50 Blood - Peripheral Aerobic Blood Culture - Final Klebsiella pneumoniae Escherichia coli 03/19/18 15:50 Blood - Peripheral Anaerobic Blood Culture - Final No growth in 5 days <Kimmie Calvo - Last Filed: 03/24/18 17:21> Assessment and Plan (1) Intractable abdominal pain Status: Acute Code(s): R10.9 - Unspecified abdominal pain - Plan Assessment: - Colon wall thickening- CT abdomen and pelvis (03/19) Short segmental concentric wall thickening is identified in the distal descending colon. Colon malignancy needs to be excluded. Calcified gallstones with moderate distention of the gallbladder. Patient states last EGD/colonoscopy was done in 2006 prior to gastric bypass surgery. Reportedly normal exam. Family history of gastric cancer-he states his brother of gastric cancer at the age of 3838 years old. EGD/colonoscopy recommended when pt is cleared by cardiology and is stable - Acute cholecystitis - CTA abd/pelvis done to rule out mesenteric ischemia yesterday CTA abd/pelvis (03/22) Prominent gallbladder distention and surrounding inflammatory changes consistent with cholecystitis No acute vascular findings in the abdomen or pelvis. Poor surgical candidate, S/P cholecystostomy tube placement by IR. JOSS following - Klebsiella Pneumoniae bacteremia- ID following to determine etiology. KELLY negative for vegetation. Suspect secondary to acute cholecystitis - A-fib with RVR and elevated troponin- now rate controlled, on Amiodarone gtt, on Heparin- cardiology following (03/24) S/P cardiac cath- multivessel CAD, cardiothoracic surgery has been consulted. Dark bile output from cholecystostomy tube. Plan -Cardiac diet -Continue IV antibiotics -EGD/colonoscopy when cleared by cardiology/cardiothoracic surgery -Multivessel CAD, not cleared at this time -Cholecystostomy tube being managed by GS -Supportive care -Further recommendations to follow based on patient status and findings Pt has been seen and examined by myself and Dr. Calvo and this note is written on her behalf <Jennie Cordero - Last Filed: 03/24/18 14:04> (1) Intractable abdominal pain Status: Acute Code(s): R10.9 - Unspecified abdominal pain - Attending Attestation seen, examined agree with above not cleared yet by cardiology if not cleared consider Gastrografin enema constipation-trial of miralax dulcolax supp <Kimmie Calvo - Last Filed: 03/24/18 17:21>
[2018-03-24] MEDS ORDERED: Polyethylene Glycol 3350 17 GM Packet PO ONE (17:00)
[2018-03-24] MEDS ORDERED: Bisacodyl 10 MG Supp RECTAL ONE (17:00)
[2018-03-25] MEDS: Morphine Sulfate Inj 2 MG/ML Vial IV.PUSH PRN ×3 (00:20→09:11)
[2018-03-25] MEDS: Insulin NovoLOG Aspart Correctional Sugar Inj SQ SCH ×5 (03:25→21:08)
[2018-03-25] MEDS ORDERED: Metoprolol Tartrate 25 MG Tablet PO SCH (05:00)
--- NOTE | 2018-03-25 08:38 | P.PN ---
Subjective Interval history: This is a pleasant 67 y/o Male who was brought in to Emergency Department via EMS for nausea, vomiting, and abdominal pain. The patient was awakened at 6 AM with left-sided flank pain and left mid back pain radiating to the left lower quadrant. The patient then developed nausea and vomiting secondary to the pain. The patient denies any hematuria, dysuria, frequency, or dark colored urine. The pain is described as sharp, stabbing, starting in left flank and radiating to the left lower quadrant. The patient denies any history of nephrolithiasis or diverticulitis, does have a previous history of gastric bypass. The patient denies any fever, chills, or sweats. Symptoms are moderate to severe, there are no current alleviating factors, and there are no known exacerbating factors.as constant pain, 10/10 in intensity stabbing and sharp sensation, on LLQ, non radiated. he has DM II, GERD, Hyperlipidemia. Discussed with ER physician face to face Doctor Jese Espinal appreciated input and recommendations the patient has probable Sepsis has Tachycardia, Leukocytosis and probable focus in his large bowel. he continue with Pain, will cover with Cefepime and Flagyl and follow with GI specialist, following blood cultures. 03/20: Seen by GI specialist early in am, he had EGD and Colonoscopy in 2006 previous to Gastric bypass surgery, CT abdomen and Pelvis reveals thickening of the distal descending colon and our service has been consulted to evaluate patient for suspected colon mass/colitis, recommended to continue antibiotics, PPIs, Endoscopy once stable, found early with positive blood cultures for Gram negative rods, Klebsiella pneumonia, Enterobacter species, Discussed with ID specialist doctor Catrina Sanchez, and with implementation specialist Doctor Bernardino Pérez, repeated blood cultures, recommended not to perform KELLY at this time or Colonoscopy continue Cefepime and Flagyl, follow cultures. 03/21: Seen in his bedroom, discussed with nurse Miss Peñaloza at this time came from KELLY, also seen by GI specialist recommended EGD and Colonoscopy once patient is stable. 03/22: On Cefepime and Flagyl, following blood cultures, as per GI specialist recommended for CTA abdomen ruled out Mesenteric Ischemia but found cholecystitis, his KELLY was negative, GI specialist recommended for General surgery consult thinking in Cholecystostomy for drainage if poor surgical candidate, at this time NPO, EGD and Colonoscopy once more stable. 03/23: Patient followed by ID specialist Doctor Justin Bautista, believed the Cholecystitis to be the likely source for sepsis to continue Cefepime and Flagyl, following blood cultures, asked for Cholecystostomy tube placement done yesterday by Doctor Konstantin Owen, found Copious amounts of black bile and thick sludge aspirated from the gallbladder. General channel specialist following, and recommended to continue this Tube for the next 3 to 6 weeks, Status post Cardiac Catheterization , discussed with Doctor Bernardino Pérez at this time and due to Multivessel Coronary Artery disease asked for Cardiothoracic surgery consult extensive long LAD lesion covering multiple diagonals, Not surgical candidate for Laparoscopic cholecystectomy 03/24: Patient discussed with nurse Miss Patel no new issues, seen by ID specialist, WBC count improving, to continue Cefepime Stopped Flagyl, on Hold Endoscopy due to Multivessel CAD, as per cardiothoracic surgery will wait until patient is more stable, eating well, improving clinical condition. 03/25: as per General Surgery Will need to keep Cholecystostomy tube in place for some weeks due to that is not a surgical candidate secondary to Cardiac condition, as per ID specialist to continue Cefepime, CABG probable after treatment for Sepsis/Bacteremia is performed and patient more stable, will have EGD/Colonoscopy once cleared by Cardiology and Cardiothoracic surgery, Physical Exam Vital signs: Vital Signs 03/24/18 09:00 03/24/18 10:00 03/24/18 11:00 Temperature Pulse Rate 76 87 65 Respiratory Rate Blood Pressure Pulse Oximetry 03/24/18 11:40 03/24/18 12:00 03/24/18 13:00 Temperature 98 F Pulse Rate 72 87 Respiratory Rate 22 Blood Pressure 102/62 Pulse Oximetry 94 L 98 03/24/18 14:00 03/24/18 15:00 03/24/18 16:00 Temperature Pulse Rate 78 80 78 Respiratory Rate Blood Pressure Pulse Oximetry 03/24/18 17:00 03/24/18 17:08 03/24/18 18:00 Temperature Pulse Rate 78 78 Respiratory Rate Blood Pressure Pulse Oximetry 98 03/24/18 19:00 03/24/18 20:00 03/24/18 21:00 Temperature 99.1 F Pulse Rate 90 80 74 Respiratory Rate 16 Blood Pressure 110/58 L Pulse Oximetry 98 03/24/18 22:00 03/24/18 23:00 03/24/18 23:19 Temperature 98.6 F Pulse Rate 72 68 72 Respiratory Rate 16 Blood Pressure 113/60 Pulse Oximetry 97 03/25/18 00:00 03/25/18 01:00 03/25/18 02:00 Temperature Pulse Rate 70 68 68 Respiratory Rate Blood Pressure Pulse Oximetry 03/25/18 03:00 03/25/18 03:17 03/25/18 04:00 Temperature 99 F Pulse Rate 65 70 66 Respiratory Rate 16 Blood Pressure 108/63 Pulse Oximetry 97 03/25/18 05:00 03/25/18 06:00 Temperature Pulse Rate 70 72 Respiratory Rate Blood Pressure Pulse Oximetry Intake & Output 03/24/18 03/25/18 03/25/18 18:59 06:59 18:59 Intake Total 1300 / 1300 700 / 700 Output Total 200 / 200 Balance 1300 / 1300 500 / 500 Weight 111.9 kg Intake: IV 1300 / 1300 100 / 100 LR 1000 mL Inj 1,000 ML @ 100 1000 / 1000 mls/hr IV.CONT .Q10H THOMAS Rx#: [id number] Maxipime Inj 2,000 MG In NS Inj 200 / 200 100 / 100 100 ML @ 200 mls/hr IV.SIG Q8H THOMAS Rx#:[id number] Flagyl 500 MG Inj 100 ML @ 100 100 / 100 mls/hr IV.SIG Q8H THOMAS Rx#: [id number] Oral 600 / 600 Output: Urine 150 / 150 Wound Drainage 50 / 50 Right Lower Abdomen 50 / 50 Other: # Voids 1 Date of Last Bowel Movement 03/20/18 03/20/18 Narrative: GENERAL: Obese, well-developed, not in acute distress SKIN: Cool and dry, no generalized rash HEAD: Atraumatic. Normocephalic. No temporal or scalp tenderness. EYES: Pupils equal round and reactive. Scleral icterus. No injection or drainage. No petechia ENT: Nothing abnormal detected NECK: Trachea midline. Supple, nontender, no meningeal signs. CARDIOVASCULAR: HS audible. RESPIRATORY: Clear to auscultation bilaterally. GASTROINTESTINAL: Abdomen soft , cholecystostomy tube in place. MUSCULOSKELETAL: Extremities without clubbing, cyanosis. NEUROLOGICAL: Alert oriented 3. Nonfocal deficits. Results - Labs CBC & Chem 7: 03/24/18 04:20 03/24/18 04:20 Laboratory Results - last 24 hr 03/24/18 03/24/18 03/24/18 12:07 17:11 20:52 POC Glucose 164 H 184 H 284 H 03/25/18 03/25/18 03:24 07:59 POC Glucose 149 H 158 H Microbiology 03/20/18 22:20 Blood - Peripheral Aerobic Blood Culture - Preliminary No growth in 4 days 03/20/18 22:20 Blood - Peripheral Anaerobic Blood Culture - Final QNS - See aerobic report. 03/20/18 22:15 Blood - Peripheral Aerobic Blood Culture - Preliminary No growth in 4 days 03/20/18 22:15 Blood - Peripheral Anaerobic Blood Culture - Final QNS - See aerobic report. 03/19/18 15:50 Blood - Peripheral Aerobic Blood Culture - Final Klebsiella pneumoniae Escherichia coli 03/19/18 15:50 Blood - Peripheral Anaerobic Blood Culture - Final No growth in 5 days - Imaging Abdomen/Pelvis CT 03/19/18 10:38 CONCLUSION: 1. Short segmental concentric wall thickening is identified in the distal descending colon. Colon malignancy needs to be excluded. 2. Calcified gallstones with moderate distention of the gallbladder. 3. No other significant abnormality. Chest CTA 03/19/18 13:37 CONCLUSION: 1. No evidence of acute pulmonary embolism. 2. Mild subpleural airspace disease and reticulations which may be chronic. 3. No evidence of segmental or lobar lung consolidation. Abdomen/Pelvis CTA 03/22/18 00:00 CONCLUSION: 1. Prominent gallbladder distention and surrounding inflammatory changes consistent with cholecystitis 2. No acute vascular findings in the abdomen or pelvis. Percutaneous Cholangiogram 03/22/18 00:00 CONCLUSION: 1. Uncomplicated percutaneous cholecystostomy as above. - Procedures - Pre Procedure Diagnosis (1) Cholecystitis - Post Procedure Diagnosis (1) Cholecystitis - Procedure Information Procedure Date: 03/22/18 Supervising Radiologist: Konstantin Owen MD Estimated blood loss (mL): 0 Anesthesia: Local, Analgesia - Plan of Activity Patient to Unit: Nursing Unit Patient Condition: Poor Additional Comments: Cholecystomy completed. 8 [place] tube placed. Copious amounts of black bile and thick sludge aspirated from the gallbladder. Cardiac Catheterization IMPRESSION: 1. Non-ST elevation myocardial infarction. 2. Cholecystitis, status post percutaneous cholecystostomy tube. 3. Multivessel coronary artery disease. RECOMMENDATIONS: 1. Mr. Bridges has extensive coronary artery disease, specifically with an extremely long LAD lesion covering multiple diagonals. 2. I will discuss the case with CT surgery for consideration of coronary artery bypass grafting. Obviously, this is a complex issue with him having acute cholecystitis, although he has a percutaneous cholecystostomy tube placed. 3. Further recommendations will be made based on the hospital course. Thank you for allowing me to see Sandip Bridges. If there are any questions, please do not hesitate to call. Bernardino Pérez, DO 03/23/2018, 10:11 AM Assessment and Plan - Plan 1. Intractable Abdominal pain continue cardiac telemetry monitoring and continuous pulse oximetry monitoring. white count was mildly elevated at 13.6, lactic acid was normal at 2.0. Glucose was mildly elevated at 218. CT of the abdomen and pelvis reveals Short segmental concentric wall thickening is identified in the distal descending colon. Colon malignancy needs to be excluded. no acute inflammation. continue tachycardic was started on antibiotics in ER, for empiric coverage with Cefepime asked for GI specialist consult. ECG sinus tachycardia. started on Cefepime and Flagyl. Culture positive for Klebsiella Pneumonia. 03/23: Cholecystostomy tube placement done yesterday by Doctor Konstantin Owen , found Copious amounts of black bile and thick sludge aspirated from the gallbladder. General channel specialist following, and recommended to continue this Tube for the next 3 to 6 weeks. Not surgical candidate for Laparoscopic cholecystectomy 03/24: ID recommended to continue Cefepime and continue Flagyl. 2. Hyperlipidemia continue Home medicines. 3. Sepsis improving condition. 4. DM II Uncontrolled started on Levemir 5 units BID and increased to sliding scale Medium dose. 5. GERD on PPIs. 6. NSTEMI at this time having his KELLY, as per implementation specialist the Troponin elevation may be secondary to Sepsis and possible endocarditis, KELLY negative for vegetation. Status post Cardiac Catheterization , discussed with Doctor Bernardino Pérez at this time and due to Multivessel Coronary Artery disease asked for Cardiothoracic surgery consult extensive long LAD lesion covering multiple diagonals, as per Cardiothoracic surgery will perform surgery once patient is more stable. 7. Hypokalemia replaced asked for magnesium level. DVT prophylaxis with Heparin As per PT will need to go to Rehab Code Status: Full Code Discussed Condition With: Patient and Nurse. Discharge Planning: Once cleared by specialists.
[2018-03-25] MEDS: dilTIAZem 30 MG Tablet PO SCH ×4 (09:08→21:07)
[2018-03-25] MEDS: Senna/Docusate Sodium 8.6/50 MG Tablet PO SCH ×2 (09:08→22:04)
[2018-03-25] MEDS: Insulin Detemir Inj 1,000 UNIT/10 ML Vial SQ SCH ×2 (09:08→21:08)
[2018-03-25] MEDS: Magnesium Oxide 400 MG Tablet PO SCH ×2 (09:08→21:07)
[2018-03-25] MEDS: Sodium Chloride 0.9% 2 ML Flush BID IV.FLUSH SCH ×2 (09:10→22:04)
--- NOTE | 2018-03-25 10:21 | P.PNGI ---
Subjective Interval history: Patient is sitting up in chair alert states he is feeling somewhat better but still having some right mid and lower quadrant abdominal pain right-sided biliary drain draining small amounts of dark bilious fluids no nausea no vomiting, tolerating Physical Exam Vital signs: Vital Signs 03/24/18 11:00 03/24/18 11:40 03/24/18 12:00 Temperature 98 F Pulse Rate 65 72 Respiratory Rate 22 Blood Pressure 102/62 Pulse Oximetry 94 L 98 03/24/18 13:00 03/24/18 14:00 03/24/18 15:00 Temperature Pulse Rate 87 78 80 Respiratory Rate Blood Pressure Pulse Oximetry 03/24/18 16:00 03/24/18 17:00 03/24/18 17:08 Temperature Pulse Rate 78 78 Respiratory Rate Blood Pressure Pulse Oximetry 98 03/24/18 18:00 03/24/18 19:00 03/24/18 20:00 Temperature 99.1 F Pulse Rate 78 90 80 Respiratory Rate 16 Blood Pressure 110/58 L Pulse Oximetry 98 03/24/18 21:00 03/24/18 22:00 03/24/18 23:00 Temperature Pulse Rate 74 72 68 Respiratory Rate Blood Pressure Pulse Oximetry 03/24/18 23:19 03/25/18 00:00 03/25/18 01:00 Temperature 98.6 F Pulse Rate 72 70 68 Respiratory Rate 16 Blood Pressure 113/60 Pulse Oximetry 97 03/25/18 02:00 03/25/18 03:00 03/25/18 03:17 Temperature 99 F Pulse Rate 68 65 70 Respiratory Rate 16 Blood Pressure 108/63 Pulse Oximetry 97 03/25/18 04:00 03/25/18 05:00 03/25/18 06:00 Temperature Pulse Rate 66 70 72 Respiratory Rate Blood Pressure Pulse Oximetry Intake & Output 03/24/18 03/25/18 03/25/18 18:59 06:59 18:59 Intake Total 1300 / 1300 700 / 700 Output Total 200 / 200 Balance 1300 / 1300 500 / 500 Weight 111.9 kg Intake: IV 1300 / 1300 100 / 100 LR 1000 mL Inj 1,000 ML @ 100 1000 / 1000 mls/hr IV.CONT .Q10H THOMAS Rx#: [id number] Maxipime Inj 2,000 MG In NS Inj 200 / 200 100 / 100 100 ML @ 200 mls/hr IV.SIG Q8H THOMAS Rx#:[id number] Flagyl 500 MG Inj 100 ML @ 100 100 / 100 mls/hr IV.SIG Q8H THOMAS Rx#: [id number] Oral 600 / 600 Output: Urine 150 / 150 Wound Drainage 50 / 50 Right Lower Abdomen 50 / 50 Other: # Voids 1 Date of Last Bowel Movement 03/20/18 03/20/18 - Constitutional mild distress, morbidly obese, disheveled, cooperative - Routine HEENT Exam Head: Present: normocephalic ENT: Present: mucous membranes dry (Pale) - Routine Respiratory Exam Present: accessory muscle use - Routine Cardiovascular Exam Present: S1 (No obvious shortness of breath at rest), S2 - Routine Abdominal Exam Present: soft (Round, biliary drainage tube right abdomen dark bilious fluid) Results - Labs CBC & Chem 7: 03/24/18 04:20 03/24/18 04:20 Laboratory Results - last 24 hr 03/24/18 03/24/18 03/24/18 12:07 17:11 20:52 POC Glucose 164 H 184 H 284 H 03/25/18 03/25/18 03:24 07:59 POC Glucose 149 H 158 H Microbiology 03/20/18 22:20 Blood - Peripheral Aerobic Blood Culture - Preliminary No growth in 4 days 03/20/18 22:20 Blood - Peripheral Anaerobic Blood Culture - Final QNS - See aerobic report. 03/20/18 22:15 Blood - Peripheral Aerobic Blood Culture - Preliminary No growth in 4 days 03/20/18 22:15 Blood - Peripheral Anaerobic Blood Culture - Final QNS - See aerobic report. 03/19/18 15:50 Blood - Peripheral Aerobic Blood Culture - Final Klebsiella pneumoniae Escherichia coli 03/19/18 15:50 Blood - Peripheral Anaerobic Blood Culture - Final No growth in 5 days - Procedures - Pre Procedure Diagnosis (1) Cholecystitis - Post Procedure Diagnosis (1) Cholecystitis - Procedure Information Procedure Date: 03/22/18 Supervising Radiologist: Konstantin Owen MD Estimated blood loss (mL): 0 Anesthesia: Local, Analgesia - Plan of Activity Patient to Unit: Nursing Unit Patient Condition: Poor Additional Comments: Cholecystomy completed. 8 tristanian tube placed. Copious amounts of black bile and thick sludge aspirated from the gallbladder. Cardiac Catheterization IMPRESSION: 1. Non-ST elevation myocardial infarction. 2. Cholecystitis, status post percutaneous cholecystostomy tube. 3. Multivessel coronary artery disease. RECOMMENDATIONS: 1. Mr. Bridges has extensive coronary artery disease, specifically with an extremely long LAD lesion covering multiple diagonals. 2. I will discuss the case with CT surgery for consideration of coronary artery bypass grafting. Obviously, this is a complex issue with him having acute cholecystitis, although he has a percutaneous cholecystostomy tube placed. 3. Further recommendations will be made based on the hospital course. Thank you for allowing me to see Sandip Bridges. If there are any questions, please do not hesitate to call. Bernardino Pérez, DO 03/23/2018, 10:11 AM Assessment and Plan (1) Intractable abdominal pain Status: Acute Code(s): R10.9 - Unspecified abdominal pain - Plan Assessment: - Colon wall thickening- CT abdomen and pelvis (03/19) Short segmental concentric wall thickening is identified in the distal descending colon. Colon malignancy needs to be excluded. Calcified gallstones with moderate distention of the gallbladder. Patient states last EGD/colonoscopy was done in 2006 prior to gastric bypass surgery. Reportedly normal exam. Family history of gastric cancer-he states his brother of gastric cancer at the age of 3838 years old. EGD/colonoscopy recommended when pt is cleared by cardiology and is stable - Acute cholecystitis - CTA abd/pelvis done to rule out mesenteric ischemia yesterday CTA abd/pelvis (03/22) Prominent gallbladder distention and surrounding inflammatory changes consistent with cholecystitis No acute vascular findings in the abdomen or pelvis. Poor surgical candidate, S/P cholecystostomy tube placement by IR. GS following - Klebsiella Pneumoniae bacteremia- ID following to determine etiology. KELLY negative for vegetation. Suspect secondary to acute cholecystitis - A-fib with RVR and elevated troponin- now rate controlled, on Amiodarone gtt, on Heparin- cardiology following (03/24) S/P cardiac cath- multivessel CAD, cardiothoracic surgery has been consulted. Dark bile output from cholecystostomy tube. 03/25/2018, continues with some right-sided abdominal pain around the area of right biliary drainage tube which shows small amount of dark bilious drainage Constipation questionable bowel movement states none in the past 6 days, will review medications Continues with IV fluids at 100 cc an hour. 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 GI will sign off for now but please reconsult if any GI procedures needed before any further cardiovascular workup Biliary tube, cholecystostomy monitor drainage, per general surgery for now Monitor labs Supportive care Continue mobility and up in chair as tolerated Patient was seen per myself and Dr. Grey, note was written on his behalf
--- NOTE | 2018-03-25 12:27 | P.PNID ---
Subjective Remarks: Mr. Bridges is a 67-year-old male patient who presented to the emergency room on March 19, 2018. Patient initially reported nausea vomiting as well as abdominal pain on admission. Of note patient's past medical history significant for gastric bypass surgery many years back. Patient also has a history of type 2 diabetes, GERD, hyperlipidemia as well as morbid obesity. Condition he reports chronic lower back pain as well as arthritis. Patient reports that his abdominal pain started in the left lower quadrant associated with nausea and vomiting of clear emesis. He reports that he was still vomiting until yesterday and vomiting has now resolved. He continues to have abdominal pain. Patient denied any fever chills or night sweats prior to admission. Patient reports that his last EGD and colonoscopy was in 2006 prior to gastric bypass surgery. Patient reports he has lost a total of 257 pounds since he has had surgery. Patient was asked to have a repeat colonoscopy in 10 years if there were no abnormal findings. He denies any use of alcohol or tobacco products recently but has used in the past. He reports that his mother had gastric cancer in his brother also had a gastric cancer at the age of 38 years. He denies any hematemesis or any black tarry stools or fresh blood in stool. Patient reports that he has a bowel movement every 1-2 days. He denies any history of constipation and diarrhea. A CT of the abdomen pelvis done on admission reveals thickening of the distal descending colon and there is a concern for colonic mass and therefore GI has been consulted. Due to elevated troponins cardiology has also been called and there is a plan for KELLY and possibly a cardiac cath in the future. Blood cultures drawn and admission are positive for gram-negative rods and infectious diseases consulted for evaluation and management of the same. Notes reviewed. dw : GB as source and IR cholecystostomy after last seen patient. Patient appears comfortable. Sitting in a chair. Denies abd pain Reports itching at dressing site. Reports no BM in last few days. RN will dw Primary for benadryl and bowel regimen. Afebrile. Denies fever or chills. Blood cultures pending. KELLY negative. CT scan of the abdomen consistent with cholecystitis Antibiotics: cefepime IV Flagyl IV Lines: Lines ok Past Medical History: reviewed Allergies/Adverse Reactions: Allergies No Known Allergies Allergy (Verified 03/19/18 10:28) Objective Vital Signs 03/24/18 13:00 03/24/18 14:00 03/24/18 15:00 Temperature Pulse Rate 87 78 80 Respiratory Rate Blood Pressure Pulse Oximetry 03/24/18 16:00 03/24/18 17:00 03/24/18 17:08 Temperature Pulse Rate 78 78 Respiratory Rate Blood Pressure Pulse Oximetry 98 03/24/18 18:00 03/24/18 19:00 03/24/18 20:00 Temperature 99.1 F Pulse Rate 78 90 80 Respiratory Rate 16 Blood Pressure 110/58 L Pulse Oximetry 98 03/24/18 21:00 03/24/18 22:00 03/24/18 23:00 Temperature Pulse Rate 74 72 68 Respiratory Rate Blood Pressure Pulse Oximetry 03/24/18 23:19 03/25/18 00:00 03/25/18 01:00 Temperature 98.6 F Pulse Rate 72 70 68 Respiratory Rate 16 Blood Pressure 113/60 Pulse Oximetry 97 03/25/18 02:00 03/25/18 03:00 03/25/18 03:17 Temperature 99 F Pulse Rate 68 65 70 Respiratory Rate 16 Blood Pressure 108/63 Pulse Oximetry 97 03/25/18 04:00 03/25/18 05:00 03/25/18 06:00 Temperature Pulse Rate 66 70 72 Respiratory Rate Blood Pressure Pulse Oximetry 03/25/18 07:00 03/25/18 08:00 03/25/18 09:00 Temperature 98.5 F Pulse Rate 74 76 68 Respiratory Rate 17 Blood Pressure 109/62 Pulse Oximetry 97 03/25/18 10:00 03/25/18 10:29 Temperature Pulse Rate 67 Respiratory Rate 17 Blood Pressure Pulse Oximetry Intake & Output 03/24/18 03/25/18 03/25/18 18:59 06:59 18:59 Intake Total 1300 / 1300 700 / 700 Output Total 200 / 200 Balance 1300 / 1300 500 / 500 Weight 111.9 kg Intake: IV 1300 / 1300 100 / 100 LR 1000 mL Inj 1,000 ML @ 100 1000 / 1000 mls/hr IV.CONT .Q10H THOMAS Rx#: [id number] Maxipime Inj 2,000 MG In NS Inj 200 / 200 100 / 100 100 ML @ 200 mls/hr IV.SIG Q8H THOMAS Rx#:[id number] Flagyl 500 MG Inj 100 ML @ 100 100 / 100 mls/hr IV.SIG Q8H THOMAS Rx#: [id number] Oral 600 / 600 Output: Urine 150 / 150 Wound Drainage 50 / 50 Right Lower Abdomen 50 / 50 Other: # Voids 1 Date of Last Bowel Movement 03/20/18 03/20/18 03/20/18 22:20 Blood - Peripheral Aerobic Blood Culture - Final No growth in 5 days 03/20/18 22:20 Blood - Peripheral Anaerobic Blood Culture - Final QNS - See aerobic report. 03/20/18 22:15 Blood - Peripheral Aerobic Blood Culture - Final No growth in 5 days 03/20/18 22:15 Blood - Peripheral Anaerobic Blood Culture - Final QNS - See aerobic report. 03/19/18 15:50 Blood - Peripheral Aerobic Blood Culture - Final Klebsiella pneumoniae Escherichia coli 03/19/18 15:50 Blood - Peripheral Anaerobic Blood Culture - Final No growth in 5 days Lab - Hematology Results 03/23/18 03/24/18 12:13 04:20 WBC 16.2 H 13.0 H RBC 3.73 L 3.39 L Hgb 10.7 L 9.8 L Hct 33.8 L 29.9 L MCV 90.6 88.2 MCH 28.6 28.8 MCHC 31.6 L 32.7 RDW 15.1 14.6 Plt Count 164 153 MPV 9.7 10.0 Neut % (Auto) 84.0 H 78.5 H Lymph % (Auto) 6.6 L 9.6 [place] % (Auto) 8.7 H 10.3 H Eos % (Auto) 0.4 1.1 Baso % (Auto) 0.3 0.5 Neut # (Auto) 13.6 H 10.2 H Lymph # (Auto) 1.1 1.2 [place] # (Auto) 1.4 H 1.3 H Eos # (Auto) 0.1 0.1 Baso # (Auto) 0.0 0.1 WBC Differential . . Differential Comment Auto diff final Auto diff final Lab - Chemistry Results 03/23/18 03/23/18 03/23/18 12:13 16:30 21:16 Sodium 138 Potassium 3.7 Chloride 104 Carbon Dioxide 24.0 Anion Gap 10 BUN 13 Creatinine 0.62 Estimated GFR Greater than 89 POC Glucose 206 H 192 H Random Glucose 143 H Calcium 7.8 L Total Bilirubin 0.5 AST 17 ALT 78 Alkaline Phosphatase 131 H Total Protein 6.1 L D Albumin 2.0 L 03/24/18 03/24/18 03/24/18 04:20 12:07 17:11 Sodium 139 Potassium 3.6 Chloride 105 Carbon Dioxide 28.0 Anion Gap 6 BUN 11 Creatinine 0.65 Estimated GFR Greater than 89 POC Glucose 164 H 184 H Random Glucose 161 H Calcium 7.6 L Total Bilirubin 0.4 AST 13 L ALT 58 Alkaline Phosphatase 125 H Total Protein 5.7 L Albumin 1.8 L 03/24/18 03/25/18 03/25/18 20:52 03:24 07:59 Sodium Potassium Chloride Carbon Dioxide Anion Gap BUN Creatinine Estimated GFR POC Glucose 284 H 149 H 158 H Random Glucose Calcium Total Bilirubin AST ALT Alkaline Phosphatase Total Protein Albumin 03/25/18 11:15 Sodium Potassium Chloride Carbon Dioxide Anion Gap BUN Creatinine Estimated GFR POC Glucose 182 H Random Glucose Calcium Total Bilirubin AST ALT Alkaline Phosphatase Total Protein Albumin Imaging: ITS Impressions Abdomen/Pelvis CT 03/19/18 10:38 CONCLUSION: 1. Short segmental concentric wall thickening is identified in the distal descending colon. Colon malignancy needs to be excluded. 2. Calcified gallstones with moderate distention of the gallbladder. 3. No other significant abnormality. Chest CTA 03/19/18 13:37 CONCLUSION: 1. No evidence of acute pulmonary embolism. 2. Mild subpleural airspace disease and reticulations which may be chronic. 3. No evidence of segmental or lobar lung consolidation. Abdomen/Pelvis CTA 03/22/18 00:00 CONCLUSION: 1. Prominent gallbladder distention and surrounding inflammatory changes consistent with cholecystitis 2. No acute vascular findings in the abdomen or pelvis. Percutaneous Cholangiogram 03/22/18 00:00 CONCLUSION: 1. Uncomplicated percutaneous cholecystostomy as above. Physical Exam: GENERAL: Obese, well-developed, not in acute distress SKIN: Cool and dry, no generalized rash HEAD: Atraumatic. Normocephalic. No temporal or scalp tenderness. EYES: Pupils equal round and reactive. Scleral icterus. No injection or drainage. No petechia ENT: Nothing abnormal detected NECK: Trachea midline. Supple, nontender, no meningeal signs. CARDIOVASCULAR: HS audible. RESPIRATORY: Clear to auscultation bilaterally. GASTROINTESTINAL: Abdomen soft , obese, tenderness in the right lower quadrant and right upper quadrant. Cholecystostomy tube in place with dark fluid in place. MUSCULOSKELETAL: Extremities without clubbing, cyanosis or edema. NEUROLOGICAL: Alert oriented 3. Nonfocal. Psych cooperative IV line sites ok. Assessment and Plan - Plan Sepsis present on admission Gram-negative bacteremia E. coli and Klebsiella pneumonia isolated. Acute cholecystitis s/p Cholecystostomy tube placement. Abnormal CT scan indicating cholecystitis which is likely the source of the sepsis. Leukocytosis. White blood cell count elevated. Non-ST elevation AK likely secondary to sepsis cardiology on board -KELLY negative. Recommendations: Continue cefepime IV at every 8 hours dosing until all gram negatives identified Continue Flagyl IV for now until blood cultures finalized. Follow blood cultures. Follow clinical course Discussed with patient. misha ABURTO
--- NOTE | 2018-03-25 12:54 | P.PNGS ---
Subjective Patient reports: feels better Physical Exam Vital signs: Vital Signs 03/24/18 13:00 03/24/18 14:00 03/24/18 15:00 Temperature Pulse Rate 87 78 80 Respiratory Rate Blood Pressure Pulse Oximetry 03/24/18 16:00 03/24/18 17:00 03/24/18 17:08 Temperature Pulse Rate 78 78 Respiratory Rate Blood Pressure Pulse Oximetry 98 03/24/18 18:00 03/24/18 19:00 03/24/18 20:00 Temperature 99.1 F Pulse Rate 78 90 80 Respiratory Rate 16 Blood Pressure 110/58 L Pulse Oximetry 98 03/24/18 21:00 03/24/18 22:00 03/24/18 23:00 Temperature Pulse Rate 74 72 68 Respiratory Rate Blood Pressure Pulse Oximetry 03/24/18 23:19 03/25/18 00:00 03/25/18 01:00 Temperature 98.6 F Pulse Rate 72 70 68 Respiratory Rate 16 Blood Pressure 113/60 Pulse Oximetry 97 03/25/18 02:00 03/25/18 03:00 03/25/18 03:17 Temperature 99 F Pulse Rate 68 65 70 Respiratory Rate 16 Blood Pressure 108/63 Pulse Oximetry 97 03/25/18 04:00 03/25/18 05:00 03/25/18 06:00 Temperature Pulse Rate 66 70 72 Respiratory Rate Blood Pressure Pulse Oximetry 03/25/18 07:00 03/25/18 08:00 03/25/18 09:00 Temperature 98.5 F Pulse Rate 74 76 68 Respiratory Rate 17 Blood Pressure 109/62 Pulse Oximetry 97 03/25/18 10:00 03/25/18 10:29 Temperature Pulse Rate 67 Respiratory Rate 17 Blood Pressure Pulse Oximetry Intake & Output 03/24/18 03/25/18 03/25/18 18:59 06:59 18:59 Intake Total 1300 / 1300 700 / 700 Output Total 200 / 200 Balance 1300 / 1300 500 / 500 Weight 111.9 kg Intake: IV 1300 / 1300 100 / 100 LR 1000 mL Inj 1,000 ML @ 100 1000 / 1000 mls/hr IV.CONT .Q10H THOMAS Rx#: [id number] Maxipime Inj 2,000 MG In NS Inj 200 / 200 100 / 100 100 ML @ 200 mls/hr IV.SIG Q8H THOMAS Rx#:[id number] Flagyl 500 MG Inj 100 ML @ 100 100 / 100 mls/hr IV.SIG Q8H THOMAS Rx#: [id number] Oral 600 / 600 Output: Urine 150 / 150 Wound Drainage 50 / 50 Right Lower Abdomen 50 / 50 Other: # Voids 1 Date of Last Bowel Movement 03/20/18 03/20/18 - Constitutional no acute distress - Routine Abdominal Exam Present: soft, normoactive bowel sounds. Absent: tenderness, distended, rebound , guarding Comments: burt tube in place Results - Labs 03/24/18 04:20 03/24/18 04:20 Laboratory Results - last 24 hr 03/24/18 03/24/18 03/25/18 17:11 20:52 03:24 POC Glucose 184 H 284 H 149 H 03/25/18 03/25/18 07:59 11:15 POC Glucose 158 H 182 H - Imaging Imaging: ITS Impressions Abdomen/Pelvis CT 03/19/18 10:38 CONCLUSION: 1. Short segmental concentric wall thickening is identified in the distal descending colon. Colon malignancy needs to be excluded. 2. Calcified gallstones with moderate distention of the gallbladder. 3. No other significant abnormality. Chest CTA 03/19/18 13:37 CONCLUSION: 1. No evidence of acute pulmonary embolism. 2. Mild subpleural airspace disease and reticulations which may be chronic. 3. No evidence of segmental or lobar lung consolidation. Abdomen/Pelvis CTA 03/22/18 00:00 CONCLUSION: 1. Prominent gallbladder distention and surrounding inflammatory changes consistent with cholecystitis 2. No acute vascular findings in the abdomen or pelvis. Percutaneous Cholangiogram 03/22/18 00:00 CONCLUSION: 1. Uncomplicated percutaneous cholecystostomy as above. Assessment and Plan - Assessment (1) Intractable abdominal pain Code(s): R10.9 - Unspecified abdominal pain Status: Acute (2) NSTEMI (non-ST elevated myocardial infarction) Code(s): I21.4 - Non-ST elevation (NSTEMI) myocardial infarction Status: Acute (3) Afib Code(s): I48.91 - Unspecified atrial fibrillation Status: Acute (4) Cholecystitis Code(s): K81.9 - Cholecystitis, unspecified Status: Acute Plan: 67 year old male with afib RVR; s/p cardiac cath; cholecystics -S/p cardiac cath--- multivessel CAD found--CT Surgery considering CABG -Cholecystostomy tube in place---continue to gravity drainage -WBC trending down - less pain today, tolerating reg diet -Patient is not a surgical candidate at this time for laparoscopic cholecystectomy due to cardiac condition---will keep burt tube in place for several weeks
[2018-03-25] MEDS ORDERED: Sodium Chlor 0.9% Inj 77.5 ML, Papaverine Inj 60 MG, Nitroglycerin Inj 100 MCG, dilTIAZ... IRRIGATION SCH ×3 (13:00)
[2018-03-25] MEDS ORDERED: Sodium Chloride 0.9% Irr Bot 500 ML, ceFAZolin Inj 500 MG IRRIGATION SCH ×2 (13:00)
[2018-03-25] MEDS ORDERED: Chlorhexidine 4% Topical 120 APPLIC/120 ML Bottle TOPICAL SCH (13:00)
[2018-03-25] MEDS ORDERED: ceFAZolin 2 GM Premix Inj 2 GM/50 ML PIGGYBACK IV.SIG SCH (13:00)
--- NOTE | 2018-03-25 13:02 | P.CON ---
History of Present Illness Service: Cardiothoracic surgery Reason for Consult: Coronary artery disease Primary Care Provider: Eusebio Chacko MD Chief Complaint: Abdominal Pain History of Present Illness: 67-year-old gentleman with multiple medical comorbidities who was admitted with presenting complaints of nausea vomiting and abdominal pain. Further workup at that time including a CT scan of the abdomen revealed thickened gallbladder wall with some colonic thickening. He was also noted to have a non-ST elevation myocardial infarction. His undergone percutaneous cholecystostomy tube placement with drainage of his gallbladder and then eventual coronary angiogram which reveals multivessel coronary artery disease. I am now be considered for surgical evacuation therapy. Following initial peak of his troponins to 14 they have since normalized. At the present time he denies any chest pain. He remains hemodynamic is stable with no evidence of ongoing ischemia. His current complaint continues to be right flank and upper quadrant pain. He also had positive blood cultures on the fourth of Klebsiella pneumonia which have since not show any further growth. Review of Systems All other systems reviewed negative except as stated in HPI PMFSH - History History Provided By: Patient, Medical Record - Medical History Medical History: Medical History (Last Reviewed 03/21/18 @ 08:13 by Raffaele Gan, PT) Diabetes GERD (gastroesophageal reflux disease) Hypercholesteremia - Surgical History Surgical History: Surgical History (Last Reviewed 03/21/18 @ 19:52 by Kimmie Calvo MD) H/O gastric bypass - Tobacco History Second Hand Smoke Exposure: Yes Tobacco Use In Past 30 Days: No Smoking Status: Former smoker - Alcohol History How Often Do You Have a Drink Containing Alcohol: Never - Substance Use History Substance History: No History of Abuse - Travel History Recent Travel in the [place] Within the Last 8 Weeks: No Recent Travel Out of the Country Within the Last 8 Weeks: No - Immunization History Tetanus Immunization: Unsure Hx Influenza Vaccine This Season: No Medications and Allergies Active Medications: Active Medications Acetaminophen (Tylenol) 650 mg PO Q4H PRN PRN Reason: Temp > 100.4 Al Hydroxide/Mg Hydroxide (Milk Of Magnesia Liq) 30 ml PO Q12H PRN PRN Reason: Mild Constipation Bisacodyl (Dulcolax Supp) 10 mg RECTAL DAILY PRN PRN Reason: SEVERE CONSITIPATION Chlorhexidine Gluconate (Hibiclens 4% Topical) applicatio [employer]ICAL OPERATION SPECIALIST [facility] Stop: 03/31/18 12:49 Sodium Chloride 500 ml/ (Cefazolin Sodium 500 mg) 0 ml IRRIGATION OPERATION SPECIALIST [facility] Stop: 03/31/18 12:51 Sodium Chloride 77.5 ml/Papaverine HCl 60 mg/Nitroglycerin 100 mcg/Diltiazem HCl 100 mg 0 ml IRRIGATION OPERATION SPECIALIST [facility] Stop: 03/31/18 12:49 Dextrose (D50w Vial) 50 ml IV.PUSH UNSCH PRN PRN Reason: PER HYPOGLYCEMIA PROTOCOL Diltiazem HCl (Cardizem) 30 mg PO QID [facility] Last Admin: 03/25/18 09:08 Dose: 30 mg Glucagon (Glucagon Inj) 1 mg OTHER PRN PRN PRN Reason: for Hypoglycemia Protocol Lactated Ringer's (Lr 1000 Ml Inj) 1,000 mls @ 100 mls/hr IV.CONT .Q10H [facility] Last Admin: 03/25/18 03:26 Dose: 100 mls/hr Cefepime HCl 2,000 mg/ Sodium (Chloride) 100 mls @ 200 mls/hr IV.SIG Q8H [facility] Last Infusion: 03/25/18 01:39 Dose: Infused Amiodarone HCl 450 mg/ (Dextrose) 250 mls @ 33.33 mls/hr IV.CONT TITRATE PRN; Protocol PRN Reason: Per Protocol Last Titration: 03/23/18 14:30 Dose: Infused Cefazolin Sodium 2,000 mg/ (Sodium Chloride) 100 mls @ 200 mls/hr IV.SIG OPERATION SPECIALIST [facility] Stop: 03/31/18 12:51 Insulin Human Regular 100 unit (/ Sodium Chloride) 100 mls @ 3 mls/hr IV.CONT TITRATE PRN; Protocol PRN Reason: See Protocol Insulin Aspart (Novolog Insulin Correctional Sugar Inj) 0 unit SQ 08,12,17,21, 03 [facility]; Protocol Last Admin: 03/25/18 09:09 Dose: 2 unit Insulin Detemir (Levemir Inj) 7 unit SQ BID [facility] Last Admin: 03/25/18 09:08 Dose: 7 unit Lactulose (Lactulose Liq) 30 ml PO DAILY PRN PRN Reason: SEVERE CONSITIPATION Magnesium Oxide (Mag-Ox) 400 mg PO BID [facility] Last Admin: 03/25/18 09:08 Dose: 400 mg Metoprolol Tartrate (Lopressor) 12.5 mg PO OPERATION SPECIALIST [facility] Stop: 03/31/18 12:51 Morphine Sulfate (Morphine Inj) 2 mg IV.PUSH Q3H PRN PRN Reason: PAIN SCALE 6 TO 10 Last Admin: 03/25/18 09:11 Dose: 2 mg Mupirocin (Bactroban 2% Nasal Oint) 1 applicatio EACH NARE BID [facility] Stop: 03/29/18 12:51 Ondansetron HCl (Zofran Inj) 4 mg IV.PUSH Q6H PRN PRN Reason: NAUSEA OR VOMITING Last Admin: 03/24/18 09:11 Dose: 4 mg Pantoprazole Sodium (Protonix) 40 mg PO DAILY [facility] Last Admin: 03/25/18 09:08 Dose: 40 mg Senna/Docusate Sodium (Carlotta-Colace) 1 tab PO BID [facility] Last Admin: 03/25/18 09:08 Dose: 1 tab Sennosides (Senokot) 17.2 mg PO Q12H PRN PRN Reason: Moderate Constipation Sodium Chloride (Ns Flush) 2 ml IV.FLUSH BID [facility] Last Admin: 03/25/18 09:10 Dose: 2 ml Sodium Chloride (Ns Flush) 2 ml IV.FLUSH PRN PRN PRN Reason: FLUSH AFTER USING IV ACCESS Allergies Allergy/AdvReac Type Severity Reaction Status Date / Time No Known Allergies Allergy Verified 03/19/18 10:28 Home Medications Medication Instructions Recorded Confirmed Type atorvastatin 20 mg PO DAILY 03/19/18 03/19/18 History liraglutide [Victoza 2-Sonido] 0.6 mg SUBCUT DAILY 03/19/18 03/19/18 History metformin 1,000 mg PO BID 03/19/18 03/19/18 History omeprazole-sodium bicarbonate 1 cap PO DAILY 03/19/18 03/19/18 History pantoprazole 20 mg PO DAILY 03/19/18 03/19/18 History Physical Exam Vital signs: Vital Signs 03/24/18 13:00 03/24/18 14:00 03/24/18 15:00 Temperature Pulse Rate 87 78 80 Respiratory Rate Blood Pressure Pulse Oximetry 03/24/18 16:00 03/24/18 17:00 03/24/18 17:08 Temperature Pulse Rate 78 78 Respiratory Rate Blood Pressure Pulse Oximetry 98 03/24/18 18:00 03/24/18 19:00 03/24/18 20:00 Temperature 99.1 F Pulse Rate 78 90 80 Respiratory Rate 16 Blood Pressure 110/58 L Pulse Oximetry 98 03/24/18 21:00 03/24/18 22:00 03/24/18 23:00 Temperature Pulse Rate 74 72 68 Respiratory Rate Blood Pressure Pulse Oximetry 03/24/18 23:19 03/25/18 00:00 03/25/18 01:00 Temperature 98.6 F Pulse Rate 72 70 68 Respiratory Rate 16 Blood Pressure 113/60 Pulse Oximetry 97 03/25/18 02:00 03/25/18 03:00 03/25/18 03:17 Temperature 99 F Pulse Rate 68 65 70 Respiratory Rate 16 Blood Pressure 108/63 Pulse Oximetry 97 03/25/18 04:00 03/25/18 05:00 03/25/18 06:00 Temperature Pulse Rate 66 70 72 Respiratory Rate Blood Pressure Pulse Oximetry 03/25/18 07:00 03/25/18 08:00 03/25/18 09:00 Temperature 98.5 F Pulse Rate 74 76 68 Respiratory Rate 17 Blood Pressure 109/62 Pulse Oximetry 97 03/25/18 10:00 03/25/18 10:29 Temperature Pulse Rate 67 Respiratory Rate 17 Blood Pressure Pulse Oximetry Intake & Output 03/24/18 03/25/18 03/25/18 18:59 06:59 18:59 Intake Total 1300 / 1300 700 / 700 Output Total 200 / 200 Balance 1300 / 1300 500 / 500 Weight 111.9 kg Intake: IV 1300 / 1300 100 / 100 LR 1000 mL Inj 1,000 ML @ 100 1000 / 1000 mls/hr IV.CONT .Q10H [facility] Rx#: [id number] Maxipime Inj 2,000 MG In NS Inj 200 / 200 100 / 100 100 ML @ 200 mls/hr IV.SIG Q8H [facility] Rx#:[id number] Flagyl 500 MG Inj 100 ML @ 100 100 / 100 mls/hr IV.SIG Q8H [facility] Rx#: [id number] Oral 600 / 600 Output: Urine 150 / 150 Wound Drainage 50 / 50 Right Lower Abdomen 50 / 50 Other: # Voids 1 Date of Last Bowel Movement 03/20/18 03/20/18 - Constitutional no acute distress, obese - Routine HEENT Exam Head: Present: normocephalic, atraumatic Eye: Present: EOMI, PERRL ENT: Present: mucous membranes moist - Routine Neck Exam Present: supple, full ROM. Absent: JVD, carotid bruit, lymphadenopathy - Routine Respiratory Exam Present: CTA bilaterally. Absent: accessory muscle use - Routine Cardiovascular Exam Present: S1, S2, irregularly irregular. Absent: murmur, gallop, rubs - Routine Abdominal Exam Present: soft, normoactive bowel sounds, tenderness - Routine Extremities Exam Present: full ROM, pulses intact, normal capillary refill. Absent: cyanosis, clubbing, edema - Routine Skin Exam Present: intact - Routine Neurological Exam Present: alert, oriented X3, CN II-XII intact, normal reflexes. Absent: sensory deficit, motor deficit - Routine Psychiatric Exam Present: normal affect, normal thought process Results - Labs CBC & Chem 7: 03/24/18 04:20 03/24/18 04:20 Labs: Laboratory Results - last 24 hr 03/24/18 03/24/18 03/25/18 17:11 20:52 03:24 POC Glucose 184 H 284 H 149 H 03/25/18 03/25/18 07:59 11:15 POC Glucose 158 H 182 H Assessment and Plan - Assessment (1) Coronary artery disease involving sioux coronary artery Code(s): I25.10 - Atherosclerotic heart disease of sioux coronary artery without angina pectoris Status: Acute (2) NSTEMI (non-ST elevated myocardial infarction) Code(s): I21.4 - Non-ST elevation (NSTEMI) myocardial infarction Status: Acute (3) Afib Code(s): I48.91 - Unspecified atrial fibrillation Status: Acute (4) Cholecystitis Code(s): K81.9 - Cholecystitis, unspecified Status: Acute - Plan Patient seen and examined, chart and angiograms reviewed and the findings discussed in detail with the patient. Therapeutic options available including CABG was offered. I agree with Dr. Pérez that he will maximally benefit from bypass to his LAD, OM and RCA distributions. The risks, complications including but not limited to bleeding, infection, stroke, myocardial injury and , and benefits of the surgical procedure were discussed in details and all questions answered. He understands the provided information and agrees to proceed with the planned operation. We will plan on proceeding with the surgical procedure as describe above potentially on Tuesday. This may be performed by my partner, Dr. Bailey. He will need infectious disease and general surgery clearance prior to proceeding with surgical neurovascular is in therapy. In the meantime, we will obtain carotid duplex imaging and lower extremity vein mapping. Dr. Bailey will be able to meet the patient on Tuesday morning and then decide if it is appropriate to proceed with surgery at that point or if he needs further time to recover from his acute medical issues. Thank you for allowing me to participate in the care of this patient.
[2018-03-25] MEDS ORDERED: Insulin Regular (For Infusion) 100 UNIT in Sodium Chlor 0.9% Inj 99 ML IV.CONT PRN (14:00)
[2018-03-25] MEDS: Mupirocin 2% Nasal Oint Topical Syringe EACH NARE SCH ×2 (15:00→21:07)
--- NOTE | 2018-03-25 15:50 | US ---
EXAM DATE: 03/25/2018 3:04 PM EST AGE/SEX: 67 years / Male INDICATIONS: Preoperative coronary artery bypass graft. CLINICAL DATA: This is the patient's initial encounter. Patient reports that signs and symptoms have been present for 1 day and indicates a pain score of 0/10. MEDICAL/SURGICAL HISTORY: . Diabetes. Gastroesophageal reflux disease. Hypercholesterolemia. Former smoker. . Gastric bypass. COMPARISON: [facility] [place], US VENOUS DOPPLER LEG BI, 03/25/2018. . MEASUREMENTS: RIGHT THIGH: Proximal:__8 mm Mid:__ 3 mm Distal:__2 mm LEFT THIGH: Proximal:__9 mm Mid:__5 mm Distal:__2 mm RIGHT CALF: Proximal:__2 mm Mid:__2 mm Distal:__1 mm LEFT CALF: Proximal:__2 mm Mid:__2 mm Distal:__2 mm FINDINGS: The venous system of the lower extremities are patent by color Doppler imaging. Measurements of the leg veins (in mm) are listed above. CONCLUSION: Bilateral greater saphenous vein measurements as above. No acute abnormalities are demon strated. Electronically signed by: Elaís Martinez MD 03/25/2018 3:48 PM EST
--- NOTE | 2018-03-25 15:50 | US ---
EXAM DATE: 03/25/2018 3:05 PM EST AGE/SEX: 67 years / Male INDICATIONS: Preoperative coronary artery bypass graft. CLINICAL DATA: This is the patient's initial encounter. Patient reports that signs and symptoms have been present for 1 day and indicates a pain score of 0/10. MEDICAL/SURGICAL HISTORY: . Diabetes. Gastroesophageal reflux disease. Hypercholesterolemia. Former smoker. . Gastric bypass. COMPARISON: No prior exams available for comparison. TECHNIQUE: Venous ultrasound of both lower extremities was performed from the inguinal ligament to t he proximal calf. Real-time, color Doppler and spectral tracing, compression and augmentation techni ques were used. FINDINGS: Right Leg: Normal compression of the deep venous system from the inguinal region to the proximal michelle f. No echogenic clot is seen. Normal response of the venous system to augmentation and respiration. Left Leg: Normal compression of the deep venous system from the inguinal region to the proximal calf . No echogenic clot is seen. Normal response of the venous system to augmentation and respiration. Other: None. CONCLUSION: Negative study. No venous thrombosis of either lower extremity. Electronically signed by: Elías Martinez MD 03/25/2018 3:49 PM EST
--- NOTE | 2018-03-25 17:01 | US ---
EXAM DATE: 03/25/2018 3:01 PM EST AGE/SEX: 67 years / Male INDICATIONS: Preoperative coronary artery bypass graft. CLINICAL DATA: This is the patient's initial encounter. Patient reports that signs and symptoms have been present for 1 day and indicates a pain score of 0/10. MEDICAL/SURGICAL HISTORY: . Diabetes. Gastroesophageal reflux disease. Hypercholesterolemia. Former smoker. . Gastric bypass. COMPARISON: No prior exams available for comparison. VELOCITY PARAMETERS: ICA/CCA Ratio: Right 1.5 , Left 1.0 ICA: Right 92 cm/sec, Left 80 cm/sec CCA: Right 63 cm/sec, Left 77 cm/sec ECA: Right 65 cm/sec, Left 55 cm/sec Vertebral: Right 56 cm/sec antegrade, Left 69 cm/sec antegrade FINDINGS: Right Carotid: No significant plaque is visualized.The waveforms are within normal limits. Left Carotid: No significant plaque is visualized. The waveforms are within normal limits. Other: None. CONCLUSION: 1. Right Internal Carotid Artery: No significant plaque or narrowing. 2. Left Internal Carotid Artery: No significant plaque or narrowing. Electronically signed by: Elías Martinez MD 03/25/2018 5:00 PM EST
[2018-03-25] MEDS: Bisacodyl 10 MG Supp RECTAL PRN (21:11)
[2018-03-26] MEDS: Insulin NovoLOG Aspart Correctional Sugar Inj SQ SCH ×5 (02:57→21:39)
[2018-03-26 04:56] LABS: Bacteria,Urine Rare /hpf; Bilirubin,Urine Negative (Negative); Clarity,Urine Clear (Clear); Color,Urine Yellow (Yellw/Straw); Glucose,Urine (UA) 500 or Greater mg/dL (Negative); Leukocyte Esterase,Urine Negative (Negative); Mucus,Urine Few /lpf (Occasional); Nitrite,Urine Negative (Negative); Specific Gravity,Urine 1.016 (1.002-1.035); Squamous Epithelial Cell,Urine <1 /hpf (0-5)
--- NOTE | 2018-03-26 08:01 | P.PNIM ---
Subjective Interval history: Patient seen and examined this morning. Afebrile vital signs stable. He is lying in bed comfortably at this time. Denies having any severe pain. Cholecystostomy tube in place and still draining. He is hopeful that his reevaluation cardiothoracic surgery tomorrow go well and he will be cleared for cholecystectomy. Otherwise reports she is doing well at this time and has no major complaints or issues. Physical Exam Vital signs: Vital Signs 03/25/18 08:00 03/25/18 09:00 03/25/18 10:00 Temperature 98.5 F Pulse Rate 76 68 67 Respiratory Rate 17 Blood Pressure 109/62 Pulse Oximetry 97 03/25/18 10:29 03/25/18 11:00 03/25/18 12:00 Temperature 98.5 F Pulse Rate 68 67 Respiratory Rate 17 17 Blood Pressure 113/60 Pulse Oximetry 96 03/25/18 13:00 03/25/18 14:00 03/25/18 15:00 Temperature Pulse Rate 70 72 92 H Respiratory Rate Blood Pressure Pulse Oximetry 03/25/18 16:00 03/25/18 19:00 03/25/18 20:00 Temperature 98.3 F 98.3 F Pulse Rate 76 87 80 Respiratory Rate 17 18 Blood Pressure 135/75 124/65 Pulse Oximetry 96 96 03/25/18 21:00 03/25/18 22:00 03/25/18 23:00 Temperature Pulse Rate 82 83 83 Respiratory Rate Blood Pressure Pulse Oximetry 03/25/18 23:57 03/25/18 23:59 03/26/18 01:00 Temperature 98.3 F Pulse Rate 78 85 79 Respiratory Rate 18 Blood Pressure 113/56 L Pulse Oximetry 92 L 03/26/18 02:00 03/26/18 02:38 03/26/18 03:00 Temperature 98.2 F Pulse Rate 80 74 78 Respiratory Rate 16 Blood Pressure 126/69 Pulse Oximetry 94 L 03/26/18 04:00 03/26/18 05:00 03/26/18 06:00 Temperature Pulse Rate 77 77 74 Respiratory Rate Blood Pressure Pulse Oximetry Intake & Output 03/25/18 03/26/18 03/26/18 18:59 06:59 18:59 Intake Total 850 / 850 2320 / 2320 Output Total 350 / 350 350 / 350 Balance 500 / 500 1969 1969 Weight 115 kg Intake: IV 100 / 100 2200 / 2200 LR 1000 mL Inj 1,000 ML @ 100 2000 / 2000 mls/hr IV.CONT .Q10H [facility] Rx#: [id number] Maxipime Inj 2,000 MG In NS Inj 100 / 100 200 / 200 100 ML @ 200 mls/hr IV.SIG Q8H [facility] Rx#:[id number] Oral 750 / 750 120 / 120 Output: Urine 350 / 350 320 / 320 Wound Drainage 30 / 30 Right Lower Abdomen 30 Other: # Voids 2 # Incontinent Voids 4 Date of Last Bowel Movement 03/26/18 # Bowel Movements 3 Narrative: GENERAL: Obese, well-developed, not in acute distress SKIN: Cool and dry, no rash HEAD: Atraumatic. Normocephalic. No temporal or scalp tenderness. EYES: Pupils equal round and reactive. Scleral icterus. No injection or drainage. No petechia ENT: Nothing abnormal detected NECK: Trachea midline. Supple, nontender, no meningeal signs. CARDIOVASCULAR: Regular rate and rhythm RESPIRATORY: Clear to auscultation bilaterally. GASTROINTESTINAL: Abdomen soft , cholecystostomy tube in place with some drainage. MUSCULOSKELETAL: Extremities without clubbing, cyanosis. NEUROLOGICAL: Alert oriented 3. Nonfocal deficits. Results - Labs CBC & Chem 7: 03/24/18 04:20 03/24/18 04:20 Laboratory Results - last 24 hr 03/25/18 03/25/18 03/25/18 07:59 11:15 20:10 POC Glucose 158 H 182 H 306 H Urine Color Urine Clarity Urine pH Ur Specific [place] Urine Protein Urine Glucose (UA) Urine Ketones Urine Occult Blood Urine Nitrate Urine Bilirubin Urine Urobilinogen Ur Leukocyte Esterase Urine RBC Urine WBC Ur Squamous Epith Cells Urine Bacteria Urine Mucus Micro UA Comment Ur Microscopic Review Urine Culture Comments Nasal Screen MRSA (PCR) Blood Type Antibody Screen MTS Gel Crossmatch 03/26/18 03/26/18 03/26/18 02:34 02:45 04:25 POC Glucose 146 H Urine Color Yellow Urine Clarity Clear Urine pH 5.0 Ur Specific [place] 1.016 Urine Protein Negative Urine Glucose (UA) 500 or greater Urine Ketones Negative Urine Occult Blood Negative Urine Nitrate Negative Urine Bilirubin Negative Urine Urobilinogen Less than 2 Ur Leukocyte Esterase Negative Urine RBC 1 Urine WBC 1 Ur Squamous Epith Cells <1 Urine Bacteria Rare H Urine Mucus Few H Micro UA Comment Culture not ind Ur Microscopic Review Not Reportable Urine Culture Comments Culture not ind Nasal Screen MRSA (PCR) Mrsa detected Blood Type Antibody Screen MTS Gel Crossmatch 03/26/18 05:30 POC Glucose Urine Color Urine Clarity Urine pH Ur Specific [place] Urine Protein Urine Glucose (UA) Urine Ketones Urine Occult Blood Urine Nitrate Urine Bilirubin Urine Urobilinogen Ur Leukocyte Esterase Urine RBC Urine WBC Ur Squamous Epith Cells Urine Bacteria Urine Mucus Micro UA Comment Ur Microscopic Review Urine Culture Comments Nasal Screen MRSA (PCR) Blood Type A Positive Antibody Screen Negative MTS Gel Crossmatch See Detail Microbiology 03/20/18 22:20 Blood - Peripheral Aerobic Blood Culture - Final No growth in 5 days 03/20/18 22:20 Blood - Peripheral Anaerobic Blood Culture - Final QNS - See aerobic report. 03/20/18 22:15 Blood - Peripheral Aerobic Blood Culture - Final No growth in 5 days 03/20/18 22:15 Blood - Peripheral Anaerobic Blood Culture - Final QNS - See aerobic report. - Imaging Impressions Carotid Doppler Study 03/25/18 12:49 CONCLUSION: 1. Right Internal Carotid Artery: No significant plaque or narrowing. 2. Left Internal Carotid Artery: No significant plaque or narrowing. Lower Extremity Ultrasound 03/25/18 12:49 CONCLUSION: Bilateral greater saphenous vein measurements as above. No acute abnormalities are demonstrated. Venous Doppler Study 03/25/18 12:49 CONCLUSION: Negative study. No venous thrombosis of either lower extremity. - Procedures - Pre Procedure Diagnosis (1) Cholecystitis - Post Procedure Diagnosis (1) Cholecystitis - Procedure Information Procedure Date: 03/22/18 Supervising Radiologist: Konstantin Owen MD Estimated blood loss (mL): 0 Anesthesia: Local, Analgesia - Plan of Activity Patient to Unit: Nursing Unit Patient Condition: Poor Additional Comments: Cholecystomy completed. 8 lao tube placed. Copious amounts of black bile and thick sludge aspirated from the gallbladder. Cardiac Catheterization IMPRESSION: 1. Non-ST elevation myocardial infarction. 2. Cholecystitis, status post percutaneous cholecystostomy tube. 3. Multivessel coronary artery disease. RECOMMENDATIONS: 1. Mr. Bridges has extensive coronary artery disease, specifically with an extremely long LAD lesion covering multiple diagonals. 2. I will discuss the case with CT surgery for consideration of coronary artery bypass grafting. Obviously, this is a complex issue with him having acute cholecystitis, although he has a percutaneous cholecystostomy tube placed. 3. Further recommendations will be made based on the hospital course. Thank you for allowing me to see Sandip Bridges. If there are any questions, please do not hesitate to call. Bernardino Pérez, DO 03/23/2018, 10:11 AM Assessment and Plan - Assessment (1) Cholecystitis Code(s): K81.9 - Cholecystitis, unspecified Status: Acute - Plan 1.Cholecystitis continue cardiac telemetry monitoring and continuous pulse oximetry monitoring. Concerns for cholecystitis at this time. GI consulted, her condition is appreciated. Currently unable to have surgery performed as he has not been cleared by cardiothoracic surgeon. Found to be septic evaluated by infectious disease, recommendations are appreciated at this time we will continue the cefepime and Flagyl We will continue the cholecystostomy tube which is currently draining. 2. Hyperlipidemia continue Home medicines. 3. Sepsis improving condition. 4. DM II Uncontrolled started on Levemir 5 units BID and increased to sliding scale Medium dose. 5. GERD on PPIs. 6. NSTEMI at this time having his KELLY, as per auto inspection specialist the Troponin elevation may be secondary to Sepsis and possible endocarditis, KELLY negative for vegetation. Status post Cardiac Catheterization , discussed with Doctor Beranrdino Pérez at this time and due to Multivessel Coronary Artery disease asked for Cardiothoracic surgery consult extensive long LAD lesion covering multiple diagonals, as per Cardiothoracic surgery will perform surgery once patient is more stable. Awaiting reevaluation on Tuesday, 03/27 7. Hypokalemia replaced asked for magnesium level. DVT prophylaxis with Heparin As per PT will need to go to Rehab Code Status: Full code Discharge Planning: Still pending extensive medical workup
[2018-03-26] MEDS: Morphine Sulfate Inj 2 MG/ML Vial IV.PUSH PRN ×3 (10:08→21:13)
[2018-03-26] MEDS: Senna/Docusate Sodium 8.6/50 MG Tablet PO SCH ×2 (10:13→21:12)
[2018-03-26] MEDS: Insulin Detemir Inj 1,000 UNIT/10 ML Vial SQ SCH ×2 (10:13→21:12)
[2018-03-26] MEDS: Sodium Chloride 0.9% 2 ML Flush BID IV.FLUSH SCH ×2 (10:13→22:39)
[2018-03-26] MEDS: Magnesium Oxide 400 MG Tablet PO SCH ×2 (10:13→21:12)
[2018-03-26] MEDS: Mupirocin 2% Nasal Oint Topical Syringe EACH NARE SCH ×2 (10:14→21:11)
[2018-03-26] MEDS: dilTIAZem 30 MG Tablet PO SCH ×4 (10:15→21:12)
[2018-03-26 11:39] LABS: Hemoglobin A1c 7.4 % (4.3-6.0)
--- NOTE | 2018-03-26 22:33 | XR ---
EXAM DATE: 03/26/2018 10:28 PM EST AGE/SEX: 67 years / Male INDICATIONS: Evaluate for pneumonia, pneumothorax, or communicable disease. Pre-op CLINICAL DATA: This is the patient's initial encounter. Patient reports that signs and symptoms have been present for 4 - 6 days and indicates a pain score of 0/10. MEDICAL/SURGICAL HISTORY: . Diabetes. Gastroesophageal reflux disease. Hypercholesterolemia. . Gastric bypass. COMPARISON: No prior exams available for comparison. FINDINGS: Mild basilar airspace disease. Trace pleural fluid. Heart size within normal limits. No pneumothorax. CONCLUSION: Mild basilar airspace disease with trace pleural fluid. No pneumothorax. Electronically signed by: Markus Dutta MD 03/26/2018 10:32 PM EST
[2018-03-27] MEDS: Insulin NovoLOG Aspart Correctional Sugar Inj SQ SCH ×5 (04:11→20:59)
--- NOTE | 2018-03-27 07:45 | P.PNIM ---
Subjective Interval history: f/u; CAD/ cholecystitis in no acute distress. has mild chest and abdominal pain. no fever. Physical Exam Vital signs: Vital Signs 03/26/18 07:53 03/26/18 08:00 03/26/18 08:07 Temperature 98.1 F Pulse Rate 73 85 72 Respiratory Rate 18 Blood Pressure 110/61 Pulse Oximetry 96 03/26/18 08:11 03/26/18 09:00 03/26/18 09:33 Temperature Pulse Rate 76 Respiratory Rate Blood Pressure Pulse Oximetry 96 96 03/26/18 10:00 03/26/18 11:00 03/26/18 11:05 Temperature Pulse Rate 72 70 Respiratory Rate 16 Blood Pressure Pulse Oximetry 03/26/18 12:00 03/26/18 15:00 03/26/18 16:00 Temperature 98.3 F Pulse Rate 82 80 88 Respiratory Rate 16 Blood Pressure 110/55 L Pulse Oximetry 95 03/26/18 16:28 03/26/18 16:59 03/26/18 17:00 Temperature 98.0 F Pulse Rate 73 82 Respiratory Rate 16 14 Blood Pressure 103/60 Pulse Oximetry 93 L 03/26/18 17:08 03/26/18 17:17 03/26/18 19:00 Temperature Pulse Rate 74 75 Respiratory Rate Blood Pressure Pulse Oximetry 93 L 03/26/18 20:00 03/26/18 21:00 03/26/18 22:00 Temperature 98.1 F Pulse Rate 76 78 77 Respiratory Rate 16 Blood Pressure 94/50 L Pulse Oximetry 93 L 03/26/18 23:00 03/27/18 00:00 03/27/18 01:00 Temperature 98.1 F Pulse Rate 76 75 74 Respiratory Rate 16 Blood Pressure 97/62 L Pulse Oximetry 93 L 03/27/18 02:00 03/27/18 03:00 03/27/18 03:36 Temperature 98 F Pulse Rate 75 72 79 Respiratory Rate 16 Blood Pressure 110/66 Pulse Oximetry 94 L 03/27/18 04:00 03/27/18 05:00 03/27/18 06:00 Temperature Pulse Rate 72 71 77 Respiratory Rate Blood Pressure Pulse Oximetry Intake & Output 03/26/18 03/27/18 03/27/18 18:59 06:59 18:59 Intake Total 1200 / 1200 1140 / 1140 Output Total 525 / 525 490 / 490 Balance 675 / 675 650 / 650 Weight 116 kg Intake: IV 1200 / 1200 1100 / 1100 LR 1000 mL Inj 1,000 ML @ 100 1000 / 1000 1000 / 1000 mls/hr IV.CONT .Q10H THOMAS Rx#: [id number] Maxipime Inj 2,000 MG In NS Inj 200 / 200 100 / 100 100 ML @ 200 mls/hr IV.SIG Q8H THOMAS Rx#:[id number] Oral 40 / 40 Output: Urine 525 / 525 490 / 490 Other: Date of Last Bowel Movement 03/26/18 03/27/18 # Bowel Movements 4 2 - Constitutional no acute distress - Routine Respiratory Exam Present: CTA bilaterally - Routine Cardiovascular Exam Present: RRR - Routine Abdominal Exam Present: soft Comments: drain in place- RUQ - Routine Extremities Exam Comments: no pedal edema. - Routine Neurological Exam Present: alert, oriented X3 Results - Labs CBC & Chem 7: 03/27/18 12:00 03/27/18 12:00 Laboratory Results - last 24 hr 03/25/18 03/26/18 03/26/18 13:43 05:30 08:06 POC Glucose 111 H Hemoglobin A1c 7.4 H Blood Type A Positive Antibody Screen Negative MTS Gel Crossmatch See Detail Bld Prod Order Comment 03/26/18 03/26/18 03/26/18 12:00 16:57 21:09 POC Glucose 164 H 184 H 158 H Hemoglobin A1c Blood Type Antibody Screen MTS Gel Crossmatch Bld Prod Order Comment 03/27/18 03:38 POC Glucose 117 H Hemoglobin A1c Blood Type Antibody Screen MTS Gel Crossmatch Bld Prod Order Comment - Imaging Impressions Chest X-Ray 03/26/18 00:00 CONCLUSION: Mild basilar airspace disease with trace pleural fluid. No pneumothorax. - Procedures - Pre Procedure Diagnosis (1) Cholecystitis - Post Procedure Diagnosis (1) Cholecystitis - Procedure Information Procedure Date: 03/22/18 Supervising Radiologist: Konstantin Owen MD Estimated blood loss (mL): 0 Anesthesia: Local, Analgesia - Plan of Activity Patient to Unit: Nursing Unit Patient Condition: Poor Additional Comments: Cholecystomy completed. 8 [place] tube placed. Copious amounts of black bile and thick sludge aspirated from the gallbladder. Cardiac Catheterization IMPRESSION: 1. Non-ST elevation myocardial infarction. 2. Cholecystitis, status post percutaneous cholecystostomy tube. 3. Multivessel coronary artery disease. RECOMMENDATIONS: 1. Mr. Bridges has extensive coronary artery disease, specifically with an extremely long LAD lesion covering multiple diagonals. 2. I will discuss the case with CT surgery for consideration of coronary artery bypass grafting. Obviously, this is a complex issue with him having acute cholecystitis, although he has a percutaneous cholecystostomy tube placed. 3. Further recommendations will be made based on the hospital course. Thank you for allowing me to see Sandip Bridges. If there are any questions, please do not hesitate to call. Bernardino Pérez, DO 03/23/2018, 10:11 AM Assessment and Plan - Assessment (1) Cholecystitis Code(s): K81.9 - Cholecystitis, unspecified Status: Acute - Plan 1.Cholecystitis s/p cholecystostomy tube placement- continue with IV antibiotics- not a candidate for cholecystectomy due to CAD- evaluated by GI and general surgery. continue with pain control. 2- NSTEMI s/p cardiac cath with multivessel disease CT surgery consult appreciated; plan for CABG when cleared by ID and general surgery echo with EF 60% with no regional wall motion abnormalities s/p KELLY with no vegetation 3- bacteremia with Klebsiella and E-coli continue with IV antibiotics per ID; repeated blood cultures from 03/20 negative- ID following. 4. DM II ; continue Levemir and sliding scale . 5. GERD on PPIs. 7. Hypokalemia replaced. DVT prophylaxis with Heparin As per PT will need to go to Rehab Discharge Planning: pending clinical course and cardiac/ID w/u.
[2018-03-27] MEDS: Mupirocin 2% Nasal Oint Topical Syringe EACH NARE SCH ×2 (09:02→20:09)
[2018-03-27] MEDS: Magnesium Oxide 400 MG Tablet PO SCH ×2 (09:02→20:11)
[2018-03-27] MEDS: Senna/Docusate Sodium 8.6/50 MG Tablet PO SCH ×2 (09:02→20:12)
[2018-03-27] MEDS: dilTIAZem 30 MG Tablet PO SCH ×4 (09:03→20:11)
[2018-03-27] MEDS: Insulin Detemir Inj 1,000 UNIT/10 ML Vial SQ SCH ×2 (09:03→20:59)
[2018-03-27] MEDS: Sodium Chloride 0.9% 2 ML Flush BID IV.FLUSH SCH ×2 (09:04→20:11)
--- NOTE | 2018-03-27 10:23 | P.PNID ---
Subjective Remarks: Mr. Bridges is a 67-year-old male patient who presented to the emergency room on March 19, 2018. Patient initially reported nausea vomiting as well as abdominal pain on admission. Of note patient's past medical history significant for gastric bypass surgery many years back. Patient also has a history of type 2 diabetes, GERD, hyperlipidemia as well as morbid obesity. Condition he reports chronic lower back pain as well as arthritis. Patient reports that his abdominal pain started in the left lower quadrant associated with nausea and vomiting of clear emesis. He reports that he was still vomiting until yesterday and vomiting has now resolved. He continues to have abdominal pain. Patient denied any fever chills or night sweats prior to admission. Patient reports that his last EGD and colonoscopy was in 2006 prior to gastric bypass surgery. Patient reports he has lost a total of 257 pounds since he has had surgery. Patient was asked to have a repeat colonoscopy in 10 years if there were no abnormal findings. He denies any use of alcohol or tobacco products recently but has used in the past. He reports that his mother had gastric cancer in his brother also had a gastric cancer at the age of 38 years. He denies any hematemesis or any black tarry stools or fresh blood in stool. Patient reports that he has a bowel movement every 1-2 days. He denies any history of constipation and diarrhea. A CT of the abdomen pelvis done on admission reveals thickening of the distal descending colon and there is a concern for colonic mass and therefore GI has been consulted. Due to elevated troponins cardiology has also been called and there is a plan for KELLY and possibly a cardiac cath in the future. Blood cultures drawn and admission are positive for gram-negative rods and infectious diseases consulted for evaluation and management of the same. Interim course: GB as source and IR cholecystostomy. STEMI plan for CABG once ID clears. Notes reviewed. Overnight events reviewed with RN. Patient appears comfortable. Denies abd pain Afebrile. BCX negative. KELLY negative. Antibiotics: cefepime IV Flagyl IV Lines: Lines ok Past Medical History: reviewed Allergies/Adverse Reactions: Allergies No Known Allergies Allergy (Verified 03/19/18 10:28) Objective Vital Signs 03/26/18 11:00 03/26/18 11:05 03/26/18 12:00 Temperature 98.3 F Pulse Rate 70 82 Respiratory Rate 16 16 Blood Pressure 110/55 L Pulse Oximetry 95 03/26/18 15:00 03/26/18 16:00 03/26/18 16:28 Temperature 98.0 F Pulse Rate 80 88 73 Respiratory Rate 16 Blood Pressure 103/60 Pulse Oximetry 93 L 03/26/18 16:59 03/26/18 17:00 03/26/18 17:08 Temperature Pulse Rate 82 Respiratory Rate 14 Blood Pressure Pulse Oximetry 93 L 03/26/18 17:17 03/26/18 19:00 03/26/18 20:00 Temperature 98.1 F Pulse Rate 74 75 76 Respiratory Rate 16 Blood Pressure 94/50 L Pulse Oximetry 93 L 03/26/18 21:00 03/26/18 22:00 03/26/18 23:00 Temperature Pulse Rate 78 77 76 Respiratory Rate Blood Pressure Pulse Oximetry 03/27/18 00:00 03/27/18 01:00 03/27/18 02:00 Temperature 98.1 F Pulse Rate 75 74 75 Respiratory Rate 16 Blood Pressure 97/62 L Pulse Oximetry 93 L 03/27/18 03:00 03/27/18 03:36 03/27/18 04:00 Temperature 98 F Pulse Rate 72 79 72 Respiratory Rate 16 Blood Pressure 110/66 Pulse Oximetry 94 L 03/27/18 05:00 03/27/18 06:00 03/27/18 07:00 Temperature Pulse Rate 71 77 72 Respiratory Rate Blood Pressure Pulse Oximetry 03/27/18 08:00 03/27/18 09:00 Temperature 98.6 F Pulse Rate 72 74 Respiratory Rate 18 Blood Pressure 116/62 Pulse Oximetry 94 L Intake & Output 03/26/18 03/27/18 03/27/18 18:59 06:59 18:59 Intake Total 1200 / 1200 1140 / 1140 Output Total 525 / 525 490 / 490 Balance 675 / 675 650 / 650 Weight 116 kg Intake: IV 1200 / 1200 1100 / 1100 LR 1000 mL Inj 1,000 ML @ 100 1000 / 1000 1000 / 1000 mls/hr IV.CONT .Q10H THOMAS Rx#: [id number] Maxipime Inj 2,000 MG In NS Inj 200 / 200 100 / 100 100 ML @ 200 mls/hr IV.SIG Q8H THOMAS Rx#:[id number] Oral 40 / 40 Output: Urine 525 / 525 490 / 490 Other: Date of Last Bowel Movement 03/26/18 03/27/18 03/26/18 # Bowel Movements 4 2 03/20/18 22:20 Blood - Peripheral Aerobic Blood Culture - Final No growth in 5 days 03/20/18 22:20 Blood - Peripheral Anaerobic Blood Culture - Final QNS - See aerobic report. 03/20/18 22:15 Blood - Peripheral Aerobic Blood Culture - Final No growth in 5 days 03/20/18 22:15 Blood - Peripheral Anaerobic Blood Culture - Final QNS - See aerobic report. 03/19/18 15:50 Blood - Peripheral Aerobic Blood Culture - Final Klebsiella pneumoniae Escherichia coli 03/19/18 15:50 Blood - Peripheral Anaerobic Blood Culture - Final No growth in 5 days Lab - Chemistry Results 03/25/18 03/25/18 03/25/18 11:15 13:43 20:10 POC Glucose 182 H 306 H Hemoglobin A1c 7.4 H 03/26/18 03/26/18 03/26/18 02:34 08:06 12:00 POC Glucose 146 H 111 H 164 H Hemoglobin A1c 03/26/18 03/26/18 03/27/18 16:57 21:09 03:38 POC Glucose 184 H 158 H 117 H Hemoglobin A1c 03/27/18 07:53 POC Glucose 94 Hemoglobin A1c Imaging: ITS Impressions Abdomen/Pelvis CT 03/19/18 10:38 CONCLUSION: 1. Short segmental concentric wall thickening is identified in the distal descending colon. Colon malignancy needs to be excluded. 2. Calcified gallstones with moderate distention of the gallbladder. 3. No other significant abnormality. Chest CTA 03/19/18 13:37 CONCLUSION: 1. No evidence of acute pulmonary embolism. 2. Mild subpleural airspace disease and reticulations which may be chronic. 3. No evidence of segmental or lobar lung consolidation. Abdomen/Pelvis CTA 03/22/18 00:00 CONCLUSION: 1. Prominent gallbladder distention and surrounding inflammatory changes consistent with cholecystitis 2. No acute vascular findings in the abdomen or pelvis. Percutaneous Cholangiogram 03/22/18 00:00 CONCLUSION: 1. Uncomplicated percutaneous cholecystostomy as above. Carotid Doppler Study 03/25/18 12:49 CONCLUSION: 1. Right Internal Carotid Artery: No significant plaque or narrowing. 2. Left Internal Carotid Artery: No significant plaque or narrowing. Lower Extremity Ultrasound 03/25/18 12:49 CONCLUSION: Bilateral greater saphenous vein measurements as above. No acute abnormalities are demonstrated. Venous Doppler Study 03/25/18 12:49 CONCLUSION: Negative study. No venous thrombosis of either lower extremity. Chest X-Ray 03/26/18 00:00 CONCLUSION: Mild basilar airspace disease with trace pleural fluid. No pneumothorax. Physical Exam: GENERAL: Obese, well-developed, not in acute distress SKIN: Cool and dry, no generalized rash HEAD: Atraumatic. Normocephalic. No temporal or scalp tenderness. EYES: Pupils equal round and reactive. Scleral icterus. No injection or drainage. No petechia ENT: Nothing abnormal detected NECK: Trachea midline. Supple, nontender, no meningeal signs. CARDIOVASCULAR: HS audible. RESPIRATORY: Clear to auscultation bilaterally. GASTROINTESTINAL: Abdomen soft , obese, tenderness in the right lower quadrant and right upper quadrant. Cholecystostomy tube in place with dark fluid in place. MUSCULOSKELETAL: Extremities without clubbing, cyanosis or edema. NEUROLOGICAL: Alert oriented 3. Nonfocal. Psych cooperative IV line sites ok. Assessment and Plan - Plan Sepsis present on admission Gram-negative bacteremia E. coli and Klebsiella pneumonia isolated. Acute cholecystitis s/p Cholecystostomy tube placement. Abnormal CT scan indicating cholecystitis which is likely the source of the sepsis. Leukocytosis. White blood cell count elevated. Non-ST elevation WI likely secondary to sepsis cardiology on board -KELLY negative. Recommendations: DC cefepime IV Ceftriaxone IV once a day (stop date: 04/03/2018) after which we will repeat BCX on 04/04/18. If these repeat bcx are negative at 48 hrs and patient clinically doing well will clear him for CABG surgery. VIVIENNE Nicole Follow clinical course Discussed with patient. misha RN: NPO changed and patient to get diet. Misha [employer] Halye Whitehead and : above ID recs. Will follow prn in the interim if any changes please call sooner.
[2018-03-27 12:32] LABS: Hematocrit 33.8 % (39.0-51.0); Hemoglobin 11.1 gm/dL (13.0-17.0); Mean Corpuscular HGB Conc 32.8 % (32.0-36.0); Mean Corpuscular Hemoglobin 28.8 pg (27.0-34.0); Mean Corpuscular Volume 87.7 fL (80.0-100.0); Mean Platelet Volume 9.2 fL (7.0-11.0); Platelet Count 252 th/mm3 (150-450); Red Blood Count 3.85 mil/mm3 (4.50-5.90); Red Cell Distribution Width 15.5 % (11.6-17.2); White Blood Count 15.7 th/mm3 (4.0-11.0)
[2018-03-27 13:04] LABS: Alanine Aminotransferase 34 U/L (12-78); Alkaline Phosphatase 164 U/L (45-117); Anion Gap 8 meq/L (5-15); Aspartate Aminotransferase 35 U/L (15-37); Blood Urea Nitrogen 8 mg/dL (7-18); Calcium 7.7 mg/dL (8.5-10.1); Carbon Dioxide 29.5 meq/L (21.0-32.0); Chloride 100 meq/L (98-107); Glomerular Filtration Rate Greater Than 89 mL/min (>89); Glucose,Random 205 mg/dL (74-106); Potassium 3.4 meq/L (3.5-5.1); Sodium 137 meq/L (136-145); Total Protein 6.5 g/dL (6.4-8.2)
--- NOTE | 2018-03-27 14:35 | P.PNCV ---
- Note Subjective/Hospital Course: 67-year-old male who presented to [facility] 03/19/18 due to nausea, vomiting and abdominal pain. He states that he was awakened at 6 a.m. with left -sided flank pain and left mid back pain radiating to the left lower quadrant. He developed nausea and vomiting secondary to the pain. he was incidentally found to have cholecystitis, perc burt tube was placed , Trop was + underwent cardiac cath by Dr Pérez : mid LAD 80%, Left Circ 70 % lesion, RCA 100% occluded in the mid portion with [id number] and right-to- right collaterals supplying the distal portion. Blood cultures grew klebsiella pneumoniae and E coli , followed by ID and recommended to at least complete one week course of IV antibiotics prior to surgery PAST MEDICAL HISTORY: Diabetes, GERD, Hyperlipidemia, morbid obesity with BMI 40, History of gastric bypass. 03/27 pt is pain free at this time , has perc burt drain US of lower ext neg for DVT, Carotid US no stenosis continues on IV antibiotics per ID : DC cefepime IV Ceftriaxone IV once a day (stop date: 04/03/2018) after which we will repeat BCX on 04/04/18. If these repeat bcx are negative at 48 hrs and patient clinically doing well will clear him from CABG. DC Flagyl consult PT Objective: Vital Signs - 24 hr 03/26/18 15:00 03/26/18 16:00 03/26/18 16:28 Temperature 98.0 F Pulse Rate 80 88 73 Respiratory Rate 16 Blood Pressure 103/60 Pulse Oximetry 93 L 03/26/18 16:59 03/26/18 17:00 03/26/18 17:08 Temperature Pulse Rate 82 Respiratory Rate 14 Blood Pressure Pulse Oximetry 93 L 03/26/18 17:17 03/26/18 19:00 03/26/18 20:00 Temperature 98.1 F Pulse Rate 74 75 76 Respiratory Rate 16 Blood Pressure 94/50 L Pulse Oximetry 93 L 03/26/18 21:00 03/26/18 22:00 03/26/18 23:00 Temperature Pulse Rate 78 77 76 Respiratory Rate Blood Pressure Pulse Oximetry 03/27/18 00:00 03/27/18 01:00 03/27/18 02:00 Temperature 98.1 F Pulse Rate 75 74 75 Respiratory Rate 16 Blood Pressure 97/62 L Pulse Oximetry 93 L 03/27/18 03:00 03/27/18 03:36 03/27/18 04:00 Temperature 98 F Pulse Rate 72 79 72 Respiratory Rate 16 Blood Pressure 110/66 Pulse Oximetry 94 L 03/27/18 05:00 03/27/18 06:00 03/27/18 07:00 Temperature Pulse Rate 71 77 72 Respiratory Rate Blood Pressure Pulse Oximetry 03/27/18 08:00 03/27/18 09:00 03/27/18 11:57 Temperature 98.6 F Pulse Rate 72 74 Respiratory Rate 18 Blood Pressure 116/62 Pulse Oximetry 94 L 94 L 03/27/18 12:00 Temperature 98.2 F Pulse Rate 85 Respiratory Rate 18 Blood Pressure 114/58 L Pulse Oximetry 95 GENERAL: A&O x 3 SKIN: Warm and dry. HEAD: Normocephalic. EYES: No scleral icterus. No injection or drainage. NECK: Supple, trachea midline. No JVD or lymphadenopathy. CARDIOVASCULAR: Regular rate and rhythm without murmurs, gallops, or rubs. RESPIRATORY: Breath sounds equal bilaterally. No accessory muscle use. GASTROINTESTINAL: Abdomen soft, non-tender, nondistended. obese with large panus burt perc tube in place / minimal drainage MUSCULOSKELETAL: No cyanosis, or edema. BACK: Nontender without obvious deformity. No CVA tenderness. Labs: Laboratory Results - last 12 hr 03/27/18 03/27/18 03/27/18 03:38 07:53 11:37 WBC RBC Hgb Hct MCV MCH MCHC RDW Plt Count MPV Sodium Potassium Chloride Carbon Dioxide Anion Gap BUN Creatinine Estimated GFR POC Glucose 117 H 94 209 H Random Glucose Calcium Total Bilirubin AST ALT Alkaline Phosphatase Total Protein Albumin 03/27/18 03/27/18 12:00 12:00 WBC 15.7 H RBC 3.85 L Hgb 11.1 L Hct 33.8 L MCV 87.7 MCH 28.8 MCHC 32.8 RDW 15.5 Plt Count 252 D MPV 9.2 Sodium 137 Potassium 3.4 L Chloride 100 Carbon Dioxide 29.5 Anion Gap 8 BUN 8 Creatinine 0.71 Estimated GFR Greater than 89 POC Glucose Random Glucose 205 H Calcium 7.7 L Total Bilirubin 0.4 AST 35 ALT 34 Alkaline Phosphatase 164 H Total Protein 6.5 D Albumin 2.0 L Result Diagrams: 03/27/18 12:00 03/27/18 12:00 Telemetry: NSR - Plan (1) Coronary artery disease involving [place] coronary artery Plan: on ASA, start low dose BB eval for statin eval for surgery after 04/04 per ID add lovenox (3) Afib Plan: in NSR (4) Cholecystitis Plan: s/p perc drain
[2018-03-27] MEDS ORDERED: Enoxaparin Inj 40 MG/0.4 ML Syringe SQ SCH (14:45)
[2018-03-27] MEDS: Enoxaparin Inj 40 MG/0.4 ML Syringe SQ SCH (17:05)
--- NOTE | 2018-03-27 22:07 | P.PNCA ---
Subjective Interval history: No events overnight Appears stable, no complaints Medications and Allergies Active Medications: Active Medications Acetaminophen (Tylenol) 650 mg PO Q4H PRN PRN Reason: Temp > 100.4 Last Admin: 03/27/18 09:04 Dose: 650 mg Al Hydroxide/Mg Hydroxide (Milk Of Magnsofia Liq) 30 ml PO Q12H PRN PRN Reason: Mild Constipation Last Admin: 03/25/18 15:47 Dose: 30 ml Aspirin (Ecotrin) 81 mg PO DAILY [facility] Last Admin: 03/27/18 17:07 Dose: Not Given Atorvastatin Calcium (Lipitor) 20 mg PO DAILY [facility] Bisacodyl (Dulcolax Supp) 10 mg RECTAL DAILY PRN PRN Reason: SEVERE CONSITIPATION Last Admin: 03/25/18 21:11 Dose: 10 mg Chlorhexidine Gluconate (Hibiclens 4% Topical) 1 applicatio [employer]ICAL [employer] [facility] Stop: 03/31/18 12:49 Sodium Chloride 500 ml/ (Cefazolin Sodium 500 mg) 0 ml IRRIGATION PASTE MIXING [employer] [facility] Stop: 03/31/18 12:51 Sodium Chloride 77.5 ml/Papaverine HCl 60 mg/Nitroglycerin 100 mcg/Diltiazem HCl 100 mg 0 ml IRRIGATION [employer] [facility] Stop: 03/31/18 12:49 Dextrose (D50w Vial) 50 ml IV.PUSH UNSCH PRN PRN Reason: PER HYPOGLYCEMIA PROTOCOL Diltiazem HCl (Cardizem) 30 mg PO QID [facility] Last Admin: 03/27/18 20:11 Dose: 30 mg Enoxaparin Sodium (Lovenox Inj) 40 mg SQ DAILY [facility] Last Admin: 03/27/18 17:05 Dose: 40 mg Glucagon (Glucagon Inj) 1 mg OTHER PRN PRN PRN Reason: for Hypoglycemia Protocol Cefazolin Sodium/Dextrose (Ancef 2 Gm Premix Inj) 2 gm in 50 mls @ 100 mls/hr IV.SIG [employer] [facility] Stop: 03/28/18 12:59 Insulin Human Regular 100 unit (/ Sodium Chloride) 100 mls @ 3 mls/hr IV.CONT TITRATE PRN; Protocol PRN Reason: See Protocol Ceftriaxone Sodium 2,000 mg/ (Sodium Chloride) 100 mls @ 200 mls/hr IV.SIG Q24H [facility] Last Infusion: 03/27/18 15:15 Dose: Infused Insulin Aspart (Novolog Insulin Correctional Sugar Inj) 0 unit SQ ACHS [facility]; Protocol Last Admin: 03/27/18 20:59 Dose: 100 unit Insulin Detemir (Levemir Inj) 5 unit SQ BID [facility] Last Admin: 03/27/18 20:59 Dose: 5 unit Lactulose (Lactulose Liq) 30 ml PO DAILY PRN PRN Reason: SEVERE CONSITIPATION Last Admin: 03/25/18 15:47 Dose: 30 ml Magnesium Oxide (Mag-Ox) 400 mg PO BID [facility] Last Admin: 03/27/18 20:11 Dose: 400 mg Metformin HCl (Glucophage) 1,000 mg PO BID [facility] Last Admin: 03/27/18 20:11 Dose: 1,000 mg Metoprolol Tartrate (Lopressor) 12.5 mg PO [employer] [facility] Stop: 03/31/18 12:51 Morphine Sulfate (Morphine Inj) 2 mg IV.PUSH Q3H PRN PRN Reason: PAIN SCALE 6 TO 10 Last Admin: 03/26/18 21:13 Dose: 2 mg Mupirocin (Bactroban 2% Nasal Oint) 1 applicatio EACH NARE BID [facility] Stop: 03/29/18 12:51 Last Admin: 03/27/18 20:09 Dose: 1 applicatio Ondansetron HCl (Zofran Inj) 4 mg IV.PUSH Q6H PRN PRN Reason: NAUSEA OR VOMITING Last Admin: 03/26/18 21:11 Dose: 4 mg Pantoprazole Sodium (Protonix) 40 mg PO DAILY [facility] Last Admin: 03/27/18 09:02 Dose: 40 mg Senna/Docusate Sodium (Carlotta-Colace) 1 tab PO BID [facility] Last Admin: 03/27/18 20:12 Dose: 1 tab Sennosides (Senokot) 17.2 mg PO Q12H PRN PRN Reason: Moderate Constipation Last Admin: 03/25/18 15:47 Dose: 17.2 mg Sodium Chloride (Ns Flush) 2 ml IV.FLUSH BID [facility] Last Admin: 03/27/18 20:11 Dose: 2 ml Sodium Chloride (Ns Flush) 2 ml IV.FLUSH PRN PRN PRN Reason: FLUSH AFTER USING IV ACCESS Last Admin: 03/26/18 02:04 Dose: 2 ml Allergies Allergy/AdvReac Type Severity Reaction Status Date / Time No Known Allergies Allergy Verified 03/19/18 10:28 Home Medications Medication Instructions Recorded Confirmed Type atorvastatin 20 mg PO DAILY 03/19/18 03/19/18 History liraglutide [Victoza 2-Sonido] 0.6 mg SUBCUT DAILY 03/19/18 03/19/18 History metformin 1,000 mg PO BID 03/19/18 03/19/18 History omeprazole-sodium bicarbonate 1 cap PO DAILY 03/19/18 03/19/18 History pantoprazole 20 mg PO DAILY 03/19/18 03/19/18 History Physical Exam Vital signs: Vital Signs 03/26/18 23:00 03/27/18 00:00 03/27/18 01:00 Temperature 98.1 F Pulse Rate 76 75 74 Respiratory Rate 16 Blood Pressure 97/62 L Pulse Oximetry 93 L 03/27/18 02:00 03/27/18 03:00 03/27/18 03:36 Temperature 98 F Pulse Rate 75 72 79 Respiratory Rate 16 Blood Pressure 110/66 Pulse Oximetry 94 L 03/27/18 04:00 03/27/18 05:00 03/27/18 06:00 Temperature Pulse Rate 72 71 77 Respiratory Rate Blood Pressure Pulse Oximetry 03/27/18 07:00 03/27/18 08:00 03/27/18 09:00 Temperature 98.6 F Pulse Rate 72 72 74 Respiratory Rate 18 Blood Pressure 116/62 Pulse Oximetry 94 L 03/27/18 10:00 03/27/18 11:00 03/27/18 11:57 Temperature Pulse Rate 88 72 Respiratory Rate Blood Pressure Pulse Oximetry 94 L 03/27/18 12:00 03/27/18 13:00 03/27/18 14:00 Temperature 98.2 F Pulse Rate 89 66 71 Respiratory Rate 18 Blood Pressure 114/58 L Pulse Oximetry 95 03/27/18 15:00 03/27/18 16:00 03/27/18 17:00 Temperature 98.5 F Pulse Rate 72 70 73 Respiratory Rate 20 Blood Pressure 110/56 L Pulse Oximetry 98 03/27/18 18:00 03/27/18 19:55 Temperature Pulse Rate 67 Respiratory Rate Blood Pressure Pulse Oximetry 95 Intake & Output 03/27/18 03/27/18 03/28/18 06:59 18:59 06:59 Intake Total 1140 / 1140 1160 / 1160 Output Total 490 / 490 590 / 590 Balance 650 / 650 570 / 570 Weight 116 kg Intake: IV 1100 / 1100 200 / 200 LR 1000 mL Inj 1,000 ML @ 100 1000 / 1000 mls/hr IV.CONT .Q10H [facility] Rx#: [id number] Maxipime Inj 2,000 MG In NS Inj 100 / 100 100 / 100 100 ML @ 200 mls/hr IV.SIG Q8H [facility] Rx#:[id number] Rocephin Inj 2,000 MG In NS Inj 100 / 100 100 ML @ 200 mls/hr IV.SIG Q24H [facility] Rx#:[id number] Oral 40 / 40 960 / 960 Output: Urine 490 / 490 550 / 550 Gastric Drainage 40 / 40 Right Lower Quadrant 40 / 40 Other: # Voids 2 Date of Last Bowel Movement 03/27/18 03/26/18 # Bowel Movements 2 0 Narrative: GENERAL: Obese, well-developed, not in acute distress SKIN: Cool and dry, no rash HEAD: Atraumatic. Normocephalic. No temporal or scalp tenderness. EYES: Pupils equal round and reactive. Scleral icterus. No injection or drainage. No petechia ENT: Nothing abnormal detected NECK: Trachea midline. Supple, nontender, no meningeal signs. CARDIOVASCULAR: Regular rate and rhythm RESPIRATORY: Clear to auscultation bilaterally. GASTROINTESTINAL: Abdomen soft , cholecystostomy tube in place with some drainage. MUSCULOSKELETAL: Extremities without clubbing, cyanosis. NEUROLOGICAL: Alert oriented 3. Nonfocal deficits. Results 03/27/18 12:00 03/27/18 12:00 Cardiac Enzymes 03/27/18 Range/Units 12:00 AST 35 (15-37) U/L CBC 03/27/18 Range/Units 12:00 WBC 15.7 H (4.0-11.0) th/mm3 RBC 3.85 L (4.50-5.90) mil/mm3 Hgb 11.1 L (13.0-17.0) gm/dL Hct 33.8 L (39.0-51.0) % Plt Count 252 D (150-450) th/mm3 Comprehensive Metabolic Panel 03/27/18 Range/Units 12:00 Sodium 137 (136-145) meq/L Potassium 3.4 L (3.5-5.1) meq/L Chloride 100 (98-107) meq/L Carbon Dioxide 29.5 (21.0-32.0) meq/L BUN 8 (7-18) mg/dL Creatinine 0.71 (0.60-1.30) mg/dL Calcium 7.7 L (8.5-10.1) mg/dL AST 35 (15-37) U/L ALT 34 (12-78) U/L Alkaline Phosphatase 164 H (45-117) U/L Total Protein 6.5 D (6.4-8.2) g/dL Albumin 2.0 L (3.4-5.0) g/dL Intake and Output 03/27/18 03/27/18 03/27/18 06:59 14:59 22:59 Intake Total 140 / 140 100 / 100 1060 / 1060 Output Total 490 / 490 590 / 590 Balance -350 / -350 100 / 100 470 / 470 Intake: IV 100 / 100 100 / 100 100 / 100 Maxipime Inj 2,000 MG In NS Inj 100 / 100 100 / 100 100 ML @ 200 mls/hr IV.SIG Q8H [facility] Rx#:[id number] Rocephin Inj 2,000 MG In NS Inj 100 / 100 100 ML @ 200 mls/hr IV.SIG Q24H [facility] Rx#:[id number] Oral 40 / 40 960 / 960 Output: Urine 490 / 490 550 / 550 Gastric Drainage 40 / 40 Right Lower Quadrant 40 / 40 Other: # Voids 2 Date of Last Bowel Movement 03/27/18 03/26/18 03/26/18 # Bowel Movements 2 0 Weight 116 kg - Imaging and Cardiology Imaging: Impressions Chest X-Ray 03/26/18 00:00 CONCLUSION: Mild basilar airspace disease with trace pleural fluid. No pneumothorax. Assessment and Plan - Assessment (1) NSTEMI (non-ST elevated myocardial infarction) Code(s): I21.4 - Non-ST elevation (NSTEMI) myocardial infarction Status: Acute (2) Afib Code(s): I48.91 - Unspecified atrial fibrillation Status: Acute (3) SIRS (systemic inflammatory response syndrome) Code(s): R65.10 - Systemic inflammatory response syndrome (SIRS) of non- infectious origin without acute organ dysfunction Status: Acute (4) Intractable abdominal pain Code(s): R10.9 - Unspecified abdominal pain Status: Acute - Plan 1) Abdominal pain/nausea/emesis Found to have cholecystitis Perc burt drain in place with relief of symptoms 2) NSTEMI Found to have multivessel CAD CT surgery evaluation Complex case with acute cholecystitis with percutaneous cholecystostomy tube Await repeat blood cultures, if negative then CABG 3) Afib New onset Started on Cardizem, heart rates controlled Eventual anti-coagulation 4) Bacteremia KELLY negative for vegetation, no signs of endocarditis 5) Discussed with Dr. Calvo Will hold off on Cscope due to multivessel CAD
[2018-03-28 05:12] LABS: Baso # (Auto) 0.1 th/mm3 (0.0-0.2); Baso % (Auto) 0.4 % (0.0-2.0); Eos # (Auto) 0.1 th/mm3 (0.0-0.4); Eos % (Auto) 1.2 % (0.0-4.0); Hematocrit 30.2 % (39.0-51.0); Hemoglobin 9.7 gm/dL (13.0-17.0); Lymph # (Auto) 1.9 th/mm3 (1.0-4.8); Lymph % (Auto) 15.1 % (9.0-44.0); Mean Corpuscular HGB Conc 32.2 % (32.0-36.0); Mean Corpuscular Hemoglobin 28.2 pg (27.0-34.0); Mean Corpuscular Volume 87.6 fL (80.0-100.0); Mean Platelet Volume 9.1 fL (7.0-11.0); Mono # (Auto) 1.2 th/mm3 (0.0-0.9); Mono % (Auto) 9.7 % (0.0-8.0); Neut # (Auto) 9.2 th/mm3 (1.8-7.7); Neut % (Auto) 73.6 % (16.0-70.0); Platelet Count 247 th/mm3 (150-450); Red Blood Count 3.45 mil/mm3 (4.50-5.90); Red Cell Distribution Width 14.6 % (11.6-17.2); White Blood Count 12.4 th/mm3 (4.0-11.0)
[2018-03-28 05:41] LABS: Alanine Aminotransferase 28 U/L (12-78); Albumin 1.7 g/dL (3.4-5.0); Alkaline Phosphatase 139 U/L (45-117); Anion Gap 5 meq/L (5-15); Aspartate Aminotransferase 24 U/L (15-37); Blood Urea Nitrogen 10 mg/dL (7-18); Calcium 7.2 mg/dL (8.5-10.1); Chloride 103 meq/L (98-107); Glomerular Filtration Rate Greater Than 89 mL/min (>89); Glucose,Random 79 mg/dL (74-106); Potassium 3.4 meq/L (3.5-5.1); Sodium 140 meq/L (136-145); Total Protein 5.6 g/dL (6.4-8.2)
[2018-03-28 06:57] LABS: Eosinophils 1 % (0-4); Lymphocytes 10 % (9-44); Monocytes 5 % (0-8); Myelocytes 1 % (0-0); Platelet Estimate Normal (Normal); Platelet Morphology Normal (Normal); Toxic Granulation 1+
[2018-03-28] MEDS: Insulin NovoLOG Aspart Correctional Sugar Inj SQ SCH ×4 (07:50→21:03)
[2018-03-28] MEDS: Insulin Detemir Inj 1,000 UNIT/10 ML Vial SQ SCH ×2 (09:42→21:03)
[2018-03-28] MEDS: Mupirocin 2% Nasal Oint Topical Syringe EACH NARE SCH ×2 (09:42→21:03)
[2018-03-28] MEDS: Senna/Docusate Sodium 8.6/50 MG Tablet PO SCH ×2 (09:43→21:02)
[2018-03-28] MEDS: Enoxaparin Inj 40 MG/0.4 ML Syringe SQ SCH (09:43)
[2018-03-28] MEDS: Magnesium Oxide 400 MG Tablet PO SCH ×2 (09:44→21:02)
[2018-03-28] MEDS: dilTIAZem 30 MG Tablet PO SCH ×4 (09:44→21:02)
[2018-03-28] MEDS: Sodium Chloride 0.9% 2 ML Flush BID IV.FLUSH SCH ×2 (09:44→21:03)
--- NOTE | 2018-03-28 12:12 | P.PN ---
Subjective Interval history: Still appears pale and weak Physical Exam Vital signs: Vital Signs 03/27/18 13:00 03/27/18 14:00 03/27/18 15:00 Temperature Pulse Rate 66 71 72 Respiratory Rate Blood Pressure Pulse Oximetry 03/27/18 16:00 03/27/18 17:00 03/27/18 18:00 Temperature 98.5 F Pulse Rate 70 73 67 Respiratory Rate 20 Blood Pressure 110/56 L Pulse Oximetry 98 03/27/18 19:00 03/27/18 19:55 03/27/18 20:00 Temperature 98.4 F Pulse Rate 78 85 Respiratory Rate 18 Blood Pressure 100/52 L Pulse Oximetry 95 95 03/27/18 22:00 03/27/18 23:00 03/27/18 23:50 Temperature 98.7 F Pulse Rate 74 67 66 Respiratory Rate Blood Pressure 97/53 L Pulse Oximetry 95 03/28/18 00:00 03/28/18 01:00 03/28/18 02:00 Temperature 98.7 F Pulse Rate 74 72 70 Respiratory Rate 16 Blood Pressure 97/53 L Pulse Oximetry 95 03/28/18 03:00 03/28/18 03:32 03/28/18 04:00 Temperature 98.5 F Pulse Rate 70 73 72 Respiratory Rate 16 Blood Pressure 107/58 L Pulse Oximetry 92 L 03/28/18 05:00 03/28/18 06:00 03/28/18 07:00 Temperature Pulse Rate 72 74 73 Respiratory Rate Blood Pressure Pulse Oximetry 03/28/18 08:00 03/28/18 09:00 03/28/18 09:50 Temperature 98.1 F Pulse Rate 73 75 Respiratory Rate 16 Blood Pressure 120/61 Pulse Oximetry 95 93 L 03/28/18 10:00 03/28/18 11:00 03/28/18 11:25 Temperature 98.7 F Pulse Rate 76 72 72 Respiratory Rate 17 Blood Pressure 105/58 L Pulse Oximetry 92 L Intake & Output 03/27/18 03/28/18 03/28/18 18:59 06:59 18:59 Intake Total 1160 / 1160 740 / 740 100 / 100 Output Total 590 / 590 325 / 325 Balance 570 / 570 415 / 415 100 / 100 Weight 120 kg Intake: IV 200 / 200 100 / 100 Maxipime Inj 2,000 MG In NS Inj 100 / 100 100 ML @ 200 mls/hr IV.SIG Q8H [facility] Rx#:[id number] Rocephin Inj 2,000 MG In NS Inj 100 / 100 100 / 100 100 ML @ 200 mls/hr IV.SIG Q24H [facility] Rx#:[id number] Oral 960 / 960 740 / 740 Output: Urine 550 / 550 325 / 325 Gastric Drainage 40 / 40 Right Lower Quadrant 40 / 40 Other: # Voids 2 1 Date of Last Bowel Movement 03/26/18 03/26/18 # Bowel Movements 0 - Constitutional no acute distress - Routine HEENT Exam Head: Present: normocephalic, atraumatic - Routine Respiratory Exam Present: CTA bilaterally - Routine Abdominal Exam Present: soft Comments: No right upper quadrant tenderness; patient states he itches around the drain site Results - Labs CBC & Chem 7: 03/28/18 04:33 03/28/18 04:33 Laboratory Results - last 24 hr 03/27/18 03/27/18 03/27/18 12:00 12:00 16:45 WBC 15.7 H RBC 3.85 L Hgb 11.1 L Hct 33.8 L MCV 87.7 MCH 28.8 MCHC 32.8 RDW 15.5 Plt Count 252 D MPV 9.2 Prelim Diff (Auto) Neut % (Auto) Lymph % (Auto) [place] % (Auto) Eos % (Auto) Baso % (Auto) Neut # (Auto) Lymph # (Auto) [place] # (Auto) Eos # (Auto) Baso # (Auto) WBC Differential Seg Neuts % (Manual) Band Neuts % (Manual) Lymphocytes % (Manual) Monocytes % (Manual) Eosinophils % (Manual) Myelocytes % (Man) Abs Neuts (Manual) Differential Comment Toxic Granulation Platelet Estimate Platelet Morphology Sodium 137 Potassium 3.4 L Chloride 100 Carbon Dioxide 29.5 Anion Gap 8 BUN 8 Creatinine 0.71 Estimated GFR Greater than 89 POC Glucose 232 H Random Glucose 205 H Calcium 7.7 L Prot Corrected Calcium Total Bilirubin 0.4 AST 35 ALT 34 Alkaline Phosphatase 164 H Total Protein 6.5 D Albumin 2.0 L 03/27/18 03/28/18 03/28/18 20:08 03:23 04:33 WBC 12.4 H RBC 3.45 L Hgb 9.7 L Hct 30.2 L MCV 87.6 MCH 28.2 MCHC 32.2 RDW 14.6 Plt Count 247 MPV 9.1 Prelim Diff (Auto) Slide review pending Neut % (Auto) 73.6 H Lymph % (Auto) 15.1 [place] % (Auto) 9.7 H Eos % (Auto) 1.2 Baso % (Auto) 0.4 Neut # (Auto) 9.2 H Lymph # (Auto) 1.9 [place] # (Auto) 1.2 H Eos # (Auto) 0.1 Baso # (Auto) 0.1 WBC Differential Manual diff final Seg Neuts % (Manual) 70 Band Neuts % (Manual) 13 H Lymphocytes % (Manual) 10 Monocytes % (Manual) 5 Eosinophils % (Manual) 1 Myelocytes % (Man) 1 H Abs Neuts (Manual) 10.4 H Differential Comment . Toxic Granulation 1+ H Platelet Estimate Normal Platelet Morphology Normal Sodium Potassium Chloride Carbon Dioxide Anion Gap BUN Creatinine Estimated GFR POC Glucose 309 H 97 Random Glucose Calcium Prot Corrected Calcium Total Bilirubin AST ALT Alkaline Phosphatase Total Protein Albumin 03/28/18 03/28/18 03/28/18 04:33 07:42 11:10 WBC RBC Hgb Hct MCV MCH MCHC RDW Plt Count MPV Prelim Diff (Auto) Neut % (Auto) Lymph % (Auto) [place] % (Auto) Eos % (Auto) Baso % (Auto) Neut # (Auto) Lymph # (Auto) [place] # (Auto) Eos # (Auto) Baso # (Auto) WBC Differential Seg Neuts % (Manual) Band Neuts % (Manual) Lymphocytes % (Manual) Monocytes % (Manual) Eosinophils % (Manual) Myelocytes % (Man) Abs Neuts (Manual) Differential Comment Toxic Granulation Platelet Estimate Platelet Morphology Sodium 140 Potassium 3.4 L Chloride 103 Carbon Dioxide 32.0 Anion Gap 5 BUN 10 Creatinine 0.62 Estimated GFR Greater than 89 POC Glucose 91 138 H Random Glucose 79 D Calcium 7.2 L* Prot Corrected Calcium 8.0 L Total Bilirubin 0.2 AST 24 ALT 28 Alkaline Phosphatase 139 H Total Protein 5.6 L D Albumin 1.7 L - Procedures - Pre Procedure Diagnosis (1) Cholecystitis - Post Procedure Diagnosis (1) Cholecystitis - Procedure Information Procedure Date: 03/22/18 Supervising Radiologist: Konstantin Owen MD Estimated blood loss (mL): 0 Anesthesia: Local, Analgesia - Plan of Activity Patient to Unit: Nursing Unit Patient Condition: Poor Additional Comments: Cholecystomy completed. 8 iranian tube placed. Copious amounts of black bile and thick sludge aspirated from the gallbladder. Cardiac Catheterization IMPRESSION: 1. Non-ST elevation myocardial infarction. 2. Cholecystitis, status post percutaneous cholecystostomy tube. 3. Multivessel coronary artery disease. RECOMMENDATIONS: 1. Mr. Bridges has extensive coronary artery disease, specifically with an extremely long LAD lesion covering multiple diagonals. 2. I will discuss the case with CT surgery for consideration of coronary artery bypass grafting. Obviously, this is a complex issue with him having acute cholecystitis, although he has a percutaneous cholecystostomy tube placed. 3. Further recommendations will be made based on the hospital course. Thank you for allowing me to see Sandip Bridges. If there are any questions, please do not hesitate to call. Bernardino Pérez, DO 03/23/2018, 10:11 AM Assessment and Plan - Assessment (1) Intractable abdominal pain Code(s): R10.9 - Unspecified abdominal pain Status: Acute (2) NSTEMI (non-ST elevated myocardial infarction) Code(s): I21.4 - Non-ST elevation (NSTEMI) myocardial infarction Status: Acute (3) Afib Code(s): I48.91 - Unspecified atrial fibrillation Status: Acute (4) Cholecystitis Code(s): K81.9 - Cholecystitis, unspecified Status: Acute Plan: Still appears somewhat ill; will await cardiothoracic plans and plan surgery about 1 month postop. I would hold off on any surgery until this has been completed to maximize patient's chances for an uneventful surgery. He can have the cholecystostomy tube in for 3-6 weeks.
--- NOTE | 2018-03-28 15:59 | P.PNCV ---
- Note Subjective/Hospital Course: 67-year-old male who presented to [facility] 03/19/18 due to nausea, vomiting and abdominal pain. He states that he was awakened at 6 a.m. with left -sided flank pain and left mid back pain radiating to the left lower quadrant. He developed nausea and vomiting secondary to the pain. he was incidentally found to have cholecystitis, perc burt tube was placed , Trop was + underwent cardiac cath by Dr Pérez : mid LAD 80%, Left Circ 70 % lesion, RCA 100% occluded in the mid portion with [id number] and right-to- right collaterals supplying the distal portion. Blood cultures grew klebsiella pneumoniae and E coli , followed by ID and recommended to at least complete one week course of IV antibiotics prior to surgery PAST MEDICAL HISTORY: Diabetes, GERD, Hyperlipidemia, morbid obesity with BMI 40, History of gastric bypass. 03/27 pt is pain free at this time , has perc burt drain US of lower ext neg for DVT, Carotid US no stenosis continues on IV antibiotics per ID : DC cefepime IV Ceftriaxone IV once a day (stop date: 04/03/2018) after which we will repeat BCX on 04/04/18. If these repeat bcx are negative at 48 hrs and patient clinically doing well will clear him from CABG. DC Flagyl consult PT 03/28 pain free will follow / schedule for surgery next week when cleared by ID Objective: Vital Signs - 24 hr 03/27/18 16:00 03/27/18 17:00 03/27/18 18:00 Temperature 98.5 F Pulse Rate 70 73 67 Respiratory Rate 20 Blood Pressure 110/56 L Pulse Oximetry 98 03/27/18 19:00 03/27/18 19:55 03/27/18 20:00 Temperature 98.4 F Pulse Rate 78 85 Respiratory Rate 18 Blood Pressure 100/52 L Pulse Oximetry 95 95 03/27/18 22:00 03/27/18 23:00 03/27/18 23:50 Temperature 98.7 F Pulse Rate 74 67 66 Respiratory Rate Blood Pressure 97/53 L Pulse Oximetry 95 03/28/18 00:00 03/28/18 01:00 03/28/18 02:00 Temperature 98.7 F Pulse Rate 74 72 70 Respiratory Rate 16 Blood Pressure 97/53 L Pulse Oximetry 95 03/28/18 03:00 03/28/18 03:32 03/28/18 04:00 Temperature 98.5 F Pulse Rate 70 73 72 Respiratory Rate 16 Blood Pressure 107/58 L Pulse Oximetry 92 L 03/28/18 05:00 03/28/18 06:00 03/28/18 07:00 Temperature Pulse Rate 72 74 73 Respiratory Rate Blood Pressure Pulse Oximetry 03/28/18 08:00 03/28/18 09:00 03/28/18 09:50 Temperature 98.1 F Pulse Rate 73 75 Respiratory Rate 16 Blood Pressure 120/61 Pulse Oximetry 95 93 L 03/28/18 10:00 03/28/18 11:00 03/28/18 11:25 Temperature 98.7 F Pulse Rate 76 72 72 Respiratory Rate 17 Blood Pressure 105/58 L Pulse Oximetry 92 L 03/28/18 12:00 03/28/18 13:00 03/28/18 13:56 Temperature Pulse Rate 87 85 82 Respiratory Rate Blood Pressure Pulse Oximetry GENERAL: SKIN: Warm and dry. HEAD: Normocephalic. EYES: No scleral icterus. No injection or drainage. NECK: Supple, trachea midline. No JVD or lymphadenopathy. CARDIOVASCULAR: Regular rate and rhythm without murmurs, gallops, or rubs. RESPIRATORY: Breath sounds equal bilaterally. No accessory muscle use. GASTROINTESTINAL: Abdomen soft, non-tender, nondistended. MUSCULOSKELETAL: No cyanosis, or edema. BACK: Nontender without obvious deformity. No CVA tenderness. Labs: Laboratory Results - last 12 hr 03/28/18 03/28/18 03/28/18 04:33 04:33 07:42 WBC 12.4 H RBC 3.45 L Hgb 9.7 L Hct 30.2 L MCV 87.6 MCH 28.2 MCHC 32.2 RDW 14.6 Plt Count 247 MPV 9.1 Prelim Diff (Auto) Slide review pending Neut % (Auto) 73.6 H Lymph % (Auto) 15.1 [place] % (Auto) 9.7 H Eos % (Auto) 1.2 Baso % (Auto) 0.4 Neut # (Auto) 9.2 H Lymph # (Auto) 1.9 [place] # (Auto) 1.2 H Eos # (Auto) 0.1 Baso # (Auto) 0.1 WBC Differential Manual diff final Seg Neuts % (Manual) 70 Band Neuts % (Manual) 13 H Lymphocytes % (Manual) 10 Monocytes % (Manual) 5 Eosinophils % (Manual) 1 Myelocytes % (Man) 1 H Abs Neuts (Manual) 10.4 H Differential Comment . Toxic Granulation 1+ H Platelet Estimate Normal Platelet Morphology Normal Sodium 140 Potassium 3.4 L Chloride 103 Carbon Dioxide 32.0 Anion Gap 5 BUN 10 Creatinine 0.62 Estimated GFR Greater than 89 POC Glucose 91 Random Glucose 79 D Calcium 7.2 L* Prot Corrected Calcium 8.0 L Total Bilirubin 0.2 AST 24 ALT 28 Alkaline Phosphatase 139 H Total Protein 5.6 L D Albumin 1.7 L 03/28/18 11:10 WBC RBC Hgb Hct MCV MCH MCHC RDW Plt Count MPV Prelim Diff (Auto) Neut % (Auto) Lymph % (Auto) [place] % (Auto) Eos % (Auto) Baso % (Auto) Neut # (Auto) Lymph # (Auto) [place] # (Auto) Eos # (Auto) Baso # (Auto) WBC Differential Seg Neuts % (Manual) Band Neuts % (Manual) Lymphocytes % (Manual) Monocytes % (Manual) Eosinophils % (Manual) Myelocytes % (Man) Abs Neuts (Manual) Differential Comment Toxic Granulation Platelet Estimate Platelet Morphology Sodium Potassium Chloride Carbon Dioxide Anion Gap BUN Creatinine Estimated GFR POC Glucose 138 H Random Glucose Calcium Prot Corrected Calcium Total Bilirubin AST ALT Alkaline Phosphatase Total Protein Albumin Result Diagrams: 03/28/18 04:33 03/28/18 04:33 Telemetry: NSR - Plan (1) Coronary artery disease involving [place] coronary artery Plan: on ASA, start low dose BB eval for statin eval for surgery after 04/04 per ID lovenox (3) Afib Plan: in NSR (4) Cholecystitis Plan: s/p perc drain
--- NOTE | 2018-03-28 16:01 | P.PN ---
Subjective Interval history: telemetry- in SR good po appetites- " food is great" no diarrhea mild right upper quadrant discomfort, no nausea or vomiting complains of some burning Physical Exam Vital signs: Vital Signs 03/27/18 17:00 03/27/18 18:00 03/27/18 19:00 Temperature Pulse Rate 73 67 78 Respiratory Rate Blood Pressure Pulse Oximetry 03/27/18 19:55 03/27/18 20:00 03/27/18 22:00 Temperature 98.4 F Pulse Rate 85 74 Respiratory Rate 18 Blood Pressure 100/52 L Pulse Oximetry 95 95 03/27/18 23:00 03/27/18 23:50 03/28/18 00:00 Temperature 98.7 F 98.7 F Pulse Rate 67 66 74 Respiratory Rate 16 Blood Pressure 97/53 L 97/53 L Pulse Oximetry 95 95 03/28/18 01:00 03/28/18 02:00 03/28/18 03:00 Temperature Pulse Rate 72 70 70 Respiratory Rate Blood Pressure Pulse Oximetry 03/28/18 03:32 03/28/18 04:00 03/28/18 05:00 Temperature 98.5 F Pulse Rate 73 72 72 Respiratory Rate 16 Blood Pressure 107/58 L Pulse Oximetry 92 L 03/28/18 06:00 03/28/18 07:00 03/28/18 08:00 Temperature 98.1 F Pulse Rate 74 73 73 Respiratory Rate 16 Blood Pressure 120/61 Pulse Oximetry 95 03/28/18 09:00 03/28/18 09:50 03/28/18 10:00 Temperature Pulse Rate 75 76 Respiratory Rate Blood Pressure Pulse Oximetry 93 L 03/28/18 11:00 03/28/18 11:25 03/28/18 12:00 Temperature 98.7 F Pulse Rate 72 72 87 Respiratory Rate 17 Blood Pressure 105/58 L Pulse Oximetry 92 L 03/28/18 13:00 03/28/18 13:56 03/28/18 15:00 Temperature Pulse Rate 85 82 68 Respiratory Rate Blood Pressure Pulse Oximetry 03/28/18 16:00 Temperature Pulse Rate 69 Respiratory Rate Blood Pressure Pulse Oximetry Intake & Output 03/27/18 03/28/18 03/28/18 18:59 06:59 18:59 Intake Total 1160 / 1160 740 / 740 100 / 100 Output Total 590 / 590 325 / 325 Balance 570 / 570 415 / 415 100 / 100 Weight 120 kg Intake: IV 200 / 200 100 / 100 Maxipime Inj 2,000 MG In NS Inj 100 / 100 100 ML @ 200 mls/hr IV.SIG Q8H [facility] Rx#:[id number] Rocephin Inj 2,000 MG In NS Inj 100 / 100 100 / 100 100 ML @ 200 mls/hr IV.SIG Q24H [facility] Rx#:[id number] Oral 960 / 960 740 / 740 Output: Urine 550 / 550 325 / 325 Gastric Drainage 40 / 40 Right Lower Quadrant 40 / 40 Other: # Voids 2 1 Date of Last Bowel Movement 03/26/18 03/26/18 # Bowel Movements 0 Narrative: GENERAL: Obese, well-developed, not in acute distress SKIN: Cool and dry, no rash HEAD: Atraumatic. Normocephalic. No temporal or scalp tenderness. EYES: Pupils equal round and reactive. anicteric NECK: Trachea midline. Supple, nontender, no meningeal signs. CARDIOVASCULAR: Regular rate and rhythm RESPIRATORY: Clear to auscultation bilaterally. GASTROINTESTINAL: Abdomen soft , cholecystostomy tube in place with some drainage. MUSCULOSKELETAL: Extremities without clubbing, cyanosis. NEUROLOGICAL: Alert oriented 3. Nonfocal deficits. Results - Labs CBC & Chem 7: 03/28/18 04:33 03/29/18 06:02 Laboratory Results - last 24 hr 03/27/18 03/27/18 03/28/18 16:45 20:08 03:23 WBC RBC Hgb Hct MCV MCH MCHC RDW Plt Count MPV Prelim Diff (Auto) Neut % (Auto) Lymph % (Auto) [place] % (Auto) Eos % (Auto) Baso % (Auto) Neut # (Auto) Lymph # (Auto) [place] # (Auto) Eos # (Auto) Baso # (Auto) WBC Differential Seg Neuts % (Manual) Band Neuts % (Manual) Lymphocytes % (Manual) Monocytes % (Manual) Eosinophils % (Manual) Myelocytes % (Man) Abs Neuts (Manual) Differential Comment Toxic Granulation Platelet Estimate Platelet Morphology Sodium Potassium Chloride Carbon Dioxide Anion Gap BUN Creatinine Estimated GFR POC Glucose 232 H 309 H 97 Random Glucose Calcium Prot Corrected Calcium Total Bilirubin AST ALT Alkaline Phosphatase Total Protein Albumin 11/13/18 11/13/18 11/13/18 04:33 04:33 07:42 WBC 12.4 H RBC 3.45 L Hgb 9.7 L Hct 30.2 L MCV 87.6 MCH 28.2 MCHC 32.2 RDW 14.6 Plt Count 247 MPV 9.1 Prelim Diff (Auto) Slide review pending Neut % (Auto) 73.6 H Lymph % (Auto) 15.1 [place] % (Auto) 9.7 H Eos % (Auto) 1.2 Baso % (Auto) 0.4 Neut # (Auto) 9.2 H Lymph # (Auto) 1.9 [place] # (Auto) 1.2 H Eos # (Auto) 0.1 Baso # (Auto) 0.1 WBC Differential Manual diff final Seg Neuts % (Manual) 70 Band Neuts % (Manual) 13 H Lymphocytes % (Manual) 10 Monocytes % (Manual) 5 Eosinophils % (Manual) 1 Myelocytes % (Man) 1 H Abs Neuts (Manual) 10.4 H Differential Comment . Toxic Granulation 1+ H Platelet Estimate Normal Platelet Morphology Normal Sodium 140 Potassium 3.4 L Chloride 103 Carbon Dioxide 32.0 Anion Gap 5 BUN 10 Creatinine 0.62 Estimated GFR Greater than 89 POC Glucose 91 Random Glucose 79 D Calcium 7.2 L* Prot Corrected Calcium 8.0 L Total Bilirubin 0.2 AST 24 ALT 28 Alkaline Phosphatase 139 H Total Protein 5.6 L D Albumin 1.7 L 03/28/18 11:10 WBC RBC Hgb Hct MCV MCH MCHC RDW Plt Count MPV Prelim Diff (Auto) Neut % (Auto) Lymph % (Auto) [place] % (Auto) Eos % (Auto) Baso % (Auto) Neut # (Auto) Lymph # (Auto) [place] # (Auto) Eos # (Auto) Baso # (Auto) WBC Differential Seg Neuts % (Manual) Band Neuts % (Manual) Lymphocytes % (Manual) Monocytes % (Manual) Eosinophils % (Manual) Myelocytes % (Man) Abs Neuts (Manual) Differential Comment Toxic Granulation Platelet Estimate Platelet Morphology Sodium Potassium Chloride Carbon Dioxide Anion Gap BUN Creatinine Estimated GFR POC Glucose 138 H Random Glucose Calcium Prot Corrected Calcium Total Bilirubin AST ALT Alkaline Phosphatase Total Protein Albumin - Procedures 03/22- cholecystostomy tube placement 03/23- cardiac cath Assessment and Plan - Assessment (1) Cholecystitis Code(s): K81.9 - Cholecystitis, unspecified Status: Acute - Plan 67 years old male Sepsis - E. coli and Klebsiella pneumonia on blood cultures -03/19 Acute cholecystitis - which is likely the source of the sepsis. S/P cholecystostomy tube drain- not a candidate for cholecystectomy at this time due to CAD Leukocytosis. White blood cell count elevated. - trending down - Repeat blood cultures from 03/20- no growth so far - continue with IV antibiotics- Ceftriaxone stop date 04/03- then we will repeat blood cultures on 04/04- at this time due to CAD- - evaluated by GI and general surgery.- plan for surgery after 04/04 - continue with pain control. ACS, NSTEMI s/p cardiac cath with multivessel disease -CT surgery consult appreciated; plan for CABG when cleared by ID -echo with EF 60% with no regional wall motion abnormalities - s/p KELLY with no vegetation - Dr. Carlin ff = ASa. Cardizem, Lipitor - Cardiology ff DM II ; continue Levemir and sliding scale . GERD on PPI Hypokalemia replaced with 30 meq po x 1. start on KCL 20 meq po daily. BMP in am DVT prophylaxis with Lovenox DC planning- will neeed comprehensive rehab- hopefully in [facility] [place]- post surgery
[2018-03-28] MEDS: Morphine Sulfate Inj 2 MG/ML Vial IV.PUSH PRN (21:02)
--- NOTE | 2018-03-28 22:38 | P.PNCA ---
Subjective Interval history: No events overnight Medications and Allergies Active Medications: Active Medications Acetaminophen (Tylenol) 650 mg PO Q4H PRN PRN Reason: Temp > 100.4 Last Admin: 03/27/18 09:04 Dose: 650 mg Al Hydroxide/Mg Hydroxide (Milk Of Magnsofia Liq) 30 ml PO Q12H PRN PRN Reason: Mild Constipation Last Admin: 03/25/18 15:47 Dose: 30 ml Aspirin (Ecotrin) 81 mg PO DAILY [facility] Last Admin: 03/28/18 09:43 Dose: Not Given Atorvastatin Calcium (Lipitor) 20 mg PO DAILY [facility] Last Admin: 03/28/18 09:44 Dose: 20 mg Bisacodyl (Dulcolax Supp) 10 mg RECTAL DAILY PRN PRN Reason: SEVERE CONSITIPATION Last Admin: 03/25/18 21:11 Dose: 10 mg Chlorhexidine Gluconate (Hibiclens 4% Topical) 1 applicatio [employer] [facility] Stop: 03/31/18 12:49 Sodium Chloride 500 ml/ (Cefazolin Sodium 500 mg) 0 ml [employer] [facility] Stop: 03/31/18 12:51 Sodium Chloride 77.5 ml/Papaverine HCl 60 mg/Nitroglycerin 100 mcg/Diltiazem HCl 100 mg 0 ml [employer] [facility] Stop: 03/31/18 12:49 Dextrose (D50w Vial) 50 ml IV.PUSH UNSCH PRN PRN Reason: PER HYPOGLYCEMIA PROTOCOL Diltiazem HCl (Cardizem) 30 mg PO QID [facility] Last Admin: 03/28/18 21:02 Dose: 30 mg Enoxaparin Sodium (Lovenox Inj) 40 mg SQ DAILY [facility] Last Admin: 03/28/18 09:43 Dose: 40 mg Glucagon (Glucagon Inj) 1 mg OTHER PRN PRN PRN Reason: for Hypoglycemia Protocol Insulin Human Regular 100 unit (/ Sodium Chloride) 100 mls @ 3 mls/hr IV.CONT TITRATE PRN; Protocol PRN Reason: See Protocol Ceftriaxone Sodium 2,000 mg/ (Sodium Chloride) 100 mls @ 200 mls/hr IV.SIG Q24H [facility] Last Infusion: 03/28/18 10:48 Dose: Infused Insulin Aspart (Novolog Insulin Correctional Sugar Inj) 0 unit SQ ACHS [facility]; Protocol Last Admin: 03/28/18 21:03 Dose: 4 unit Insulin Detemir (Levemir Inj) 5 unit SQ BID [facility] Last Admin: 03/28/18 21:03 Dose: 5 unit Lactulose (Lactulose Liq) 30 ml PO DAILY PRN PRN Reason: SEVERE CONSITIPATION Last Admin: 03/25/18 15:47 Dose: 30 ml Magnesium Oxide (Mag-Ox) 400 mg PO BID [facility] Last Admin: 03/28/18 21:02 Dose: 400 mg Metformin HCl (Glucophage) 1,000 mg PO BID [facility] Last Admin: 03/28/18 21:02 Dose: 1,000 mg Metoprolol Tartrate (Lopressor) 12.5 mg PO [employer] [facility] Stop: 03/31/18 12:51 Morphine Sulfate (Morphine Inj) 2 mg IV.PUSH Q3H PRN PRN Reason: PAIN SCALE 6 TO 10 Last Admin: 03/28/18 21:02 Dose: 2 mg Mupirocin (Bactroban 2% Nasal Oint) 1 applicatio EACH NARE BID [facility] Stop: 03/29/18 12:51 Last Admin: 03/28/18 21:03 Dose: 1 applicatio Ondansetron HCl (Zofran Inj) 4 mg IV.PUSH Q6H PRN PRN Reason: NAUSEA OR VOMITING Last Admin: 03/26/18 21:11 Dose: 4 mg Pantoprazole Sodium (Protonix) 40 mg PO DAILY [facility] Last Admin: 03/28/18 09:44 Dose: 40 mg Potassium Chloride (K-Dur) 20 meq PO DAILY [facility] Senna/Docusate Sodium (Carlotta-Colace) 1 tab PO BID [facility] Last Admin: 03/28/18 21:02 Dose: 1 tab Sennosides (Senokot) 17.2 mg PO Q12H PRN PRN Reason: Moderate Constipation Last Admin: 03/25/18 15:47 Dose: 17.2 mg Sodium Chloride (Ns Flush) 2 ml IV.FLUSH BID [facility] Last Admin: 03/28/18 21:03 Dose: 2 ml Sodium Chloride (Ns Flush) 2 ml IV.FLUSH PRN PRN PRN Reason: FLUSH AFTER USING IV ACCESS Last Admin: 03/26/18 02:04 Dose: 2 ml Allergies Allergy/AdvReac Type Severity Reaction Status Date / Time No Known Allergies Allergy Verified 03/19/18 10:28 Home Medications Medication Instructions Recorded Confirmed Type atorvastatin 20 mg PO DAILY 03/19/18 03/19/18 History liraglutide [Victoza 2-Sonido] 0.6 mg SUBCUT DAILY 03/19/18 03/19/18 History metformin 1,000 mg PO BID 03/19/18 03/19/18 History omeprazole-sodium bicarbonate 1 cap PO DAILY 03/19/18 03/19/18 History pantoprazole 20 mg PO DAILY 03/19/18 03/19/18 History Physical Exam Vital signs: Vital Signs 03/27/18 23:00 03/27/18 23:50 03/28/18 00:00 Temperature 98.7 F 98.7 F Pulse Rate 67 66 74 Respiratory Rate 16 Blood Pressure 97/53 L 97/53 L Pulse Oximetry 95 95 03/28/18 01:00 03/28/18 02:00 03/28/18 03:00 Temperature Pulse Rate 72 70 70 Respiratory Rate Blood Pressure Pulse Oximetry 03/28/18 03:32 03/28/18 04:00 03/28/18 05:00 Temperature 98.5 F Pulse Rate 73 72 72 Respiratory Rate 16 Blood Pressure 107/58 L Pulse Oximetry 92 L 03/28/18 06:00 03/28/18 07:00 03/28/18 08:00 Temperature 98.1 F Pulse Rate 74 73 73 Respiratory Rate 16 Blood Pressure 120/61 Pulse Oximetry 95 03/28/18 09:00 03/28/18 09:50 03/28/18 10:00 Temperature Pulse Rate 75 76 Respiratory Rate Blood Pressure Pulse Oximetry 93 L 03/28/18 11:00 03/28/18 11:25 03/28/18 12:00 Temperature 98.7 F Pulse Rate 72 72 87 Respiratory Rate 17 Blood Pressure 105/58 L Pulse Oximetry 92 L 03/28/18 13:00 03/28/18 13:56 03/28/18 15:00 Temperature Pulse Rate 85 82 68 Respiratory Rate Blood Pressure Pulse Oximetry 03/28/18 16:00 03/28/18 17:00 03/28/18 18:00 Temperature 98.2 F Pulse Rate 72 68 79 Respiratory Rate 17 Blood Pressure 118/56 L Pulse Oximetry 95 03/28/18 19:00 03/28/18 19:38 03/28/18 20:00 Temperature 98 F Pulse Rate 71 65 Respiratory Rate 18 Blood Pressure 120/68 Pulse Oximetry 92 L 95 03/28/18 21:00 03/28/18 21:07 03/28/18 22:00 Temperature Pulse Rate 71 83 Respiratory Rate 17 Blood Pressure Pulse Oximetry Intake & Output 03/28/18 03/28/18 03/29/18 06:59 18:59 06:59 Intake Total 740 / 740 820 / 820 Output Total 325 / 325 650 / 650 Balance 415 / 415 170 / 170 Weight 120 kg Intake: IV 100 / 100 Rocephin Inj 2,000 MG In NS Inj 100 / 100 100 ML @ 200 mls/hr IV.SIG Q24H [facility] Rx#:[id number] Oral 740 / 740 720 / 720 Output: Urine 325 / 325 650 / 650 Other: # Voids 1 1 Date of Last Bowel Movement 03/26/18 03/28/18 03/28/18 # Bowel Movements 2 Narrative: GENERAL: Obese, well-developed, not in acute distress SKIN: Cool and dry, no rash HEAD: Atraumatic. Normocephalic. No temporal or scalp tenderness. EYES: Pupils equal round and reactive. anicteric NECK: Trachea midline. Supple, nontender, no meningeal signs. CARDIOVASCULAR: Regular rate and rhythm RESPIRATORY: Clear to auscultation bilaterally. GASTROINTESTINAL: Abdomen soft , cholecystostomy tube in place with some drainage. MUSCULOSKELETAL: Extremities without clubbing, cyanosis. NEUROLOGICAL: Alert oriented 3. Nonfocal deficits. Results 03/28/18 04:33 03/28/18 04:33 Cardiac Enzymes 03/27/18 03/28/18 Range/Units 12:00 04:33 AST 35 24 (15-37) U/L CBC 03/27/18 03/28/18 Range/Units 12:00 04:33 WBC 15.7 H 12.4 H (4.0-11.0) th/mm3 RBC 3.85 L 3.45 L (4.50-5.90) mil/mm3 Hgb 11.1 L 9.7 L (13.0-17.0) gm/dL Hct 33.8 L 30.2 L (39.0-51.0) % Plt Count 252 D 247 (150-450) th/mm3 Neut # (Auto) 9.2 H (1.8-7.7) th/mm3 Lymph # (Auto) 1.9 (1.0-4.8) th/mm3 [place] # (Auto) 1.2 H (0.0-0.9) th/mm3 Eos # (Auto) 0.1 (0.0-0.4) th/mm3 Baso # (Auto) 0.1 (0.0-0.2) th/mm3 Comprehensive Metabolic Panel 03/27/18 03/28/18 Range/Units 12:00 04:33 Sodium 137 140 (136-145) meq/L Potassium 3.4 L 3.4 L (3.5-5.1) meq/L Chloride 100 103 (98-107) meq/L Carbon Dioxide 29.5 32.0 (21.0-32.0) meq/L BUN 8 10 (7-18) mg/dL Creatinine 0.71 0.62 (0.60-1.30) mg/dL Calcium 7.7 L 7.2 L* (8.5-10.1) mg/dL AST 35 24 (15-37) U/L ALT 34 28 (12-78) U/L Alkaline Phosphatase 164 H 139 H (45-117) U/L Total Protein 6.5 D 5.6 L D (6.4-8.2) g/dL Albumin 2.0 L 1.7 L (3.4-5.0) g/dL Intake and Output 03/28/18 03/28/18 03/28/18 06:59 14:59 22:59 Intake Total 740 / 740 100 / 100 720 / 720 Output Total 325 / 325 650 / 650 Balance 415 / 415 100 / 100 70 / 70 Intake: IV 100 / 100 Rocephin Inj 2,000 MG In NS Inj 100 / 100 100 ML @ 200 mls/hr IV.SIG Q24H [facility] Rx#:[id number] Oral 740 / 740 720 / 720 Output: Urine 325 / 325 650 / 650 Other: # Voids 1 1 Date of Last Bowel Movement 03/26/18 03/28/18 # Bowel Movements 2 Weight 120 kg Assessment and Plan - Assessment (1) NSTEMI (non-ST elevated myocardial infarction) Code(s): I21.4 - Non-ST elevation (NSTEMI) myocardial infarction Status: Acute (2) Afib Code(s): I48.91 - Unspecified atrial fibrillation Status: Acute (3) SIRS (systemic inflammatory response syndrome) Code(s): R65.10 - Systemic inflammatory response syndrome (SIRS) of non- infectious origin without acute organ dysfunction Status: Acute (4) Intractable abdominal pain Code(s): R10.9 - Unspecified abdominal pain Status: Acute - Plan 1) Abdominal pain/nausea/emesis Found to have cholecystitis Perc burt drain in place with relief of symptoms 2) NSTEMI Found to have multivessel CAD CT surgery evaluation Complex case with acute cholecystitis with percutaneous cholecystostomy tube Await repeat blood cultures, if negative then CABG 3) Afib New onset Started on Cardizem, heart rates controlled Eventual anti-coagulation Will consider before surgery due to MVCAD, will have to see if Hgb continues to trend down 4) Bacteremia KELLY negative for vegetation, no signs of endocarditis 5) Discussed with Dr. Calvo Will hold off on Cscope due to multivessel CAD
[2018-03-29] MEDS: Morphine Sulfate Inj 2 MG/ML Vial IV.PUSH PRN ×4 (00:28→20:26)
[2018-03-29 06:56] LABS: Anion Gap 8 meq/L (5-15); Aspartate Aminotransferase 29 U/L (15-37); Blood Urea Nitrogen 9 mg/dL (7-18); Calcium 7.7 mg/dL (8.5-10.1); Carbon Dioxide 30.7 meq/L (21.0-32.0); Chloride 100 meq/L (98-107); Glomerular Filtration Rate Greater Than 89 mL/min (>89); Glucose,Random 162 mg/dL (74-106); Magnesium 2.6 mg/dL (1.5-2.5); Sodium 139 meq/L (136-145)
[2018-03-29 06:58] LABS: Alanine Aminotransferase 29 U/L (12-78)
[2018-03-29 07:00] LABS: Alkaline Phosphatase 152 U/L (45-117); Total Protein 6.3 g/dL (6.4-8.2)
[2018-03-29] MEDS: dilTIAZem 30 MG Tablet PO SCH ×4 (09:23→20:25)
[2018-03-29] MEDS: Mupirocin 2% Nasal Oint Topical Syringe EACH NARE SCH (09:23)
[2018-03-29] MEDS: Magnesium Oxide 400 MG Tablet PO SCH ×2 (09:23→22:40)
[2018-03-29] MEDS: Enoxaparin Inj 40 MG/0.4 ML Syringe SQ SCH (09:24)
[2018-03-29] MEDS: Insulin Detemir Inj 1,000 UNIT/10 ML Vial SQ SCH ×2 (09:24→20:25)
[2018-03-29] MEDS: Sodium Chloride 0.9% 2 ML Flush BID IV.FLUSH SCH ×2 (09:24→20:26)
[2018-03-29] MEDS: Senna/Docusate Sodium 8.6/50 MG Tablet PO SCH ×2 (09:24→20:25)
[2018-03-29] MEDS: Insulin NovoLOG Aspart Correctional Sugar Inj SQ SCH ×4 (09:24→20:25)
[2018-03-29 11:34] LABS: Baso # (Auto) 0.1 th/mm3 (0.0-0.2); Baso % (Auto) 0.9 % (0.0-2.0); Eos # (Auto) 0.1 th/mm3 (0.0-0.4); Eos % (Auto) 1.2 % (0.0-4.0); Hematocrit 31.3 % (39.0-51.0); Lymph # (Auto) 1.6 th/mm3 (1.0-4.8); Lymph % (Auto) 12.6 % (9.0-44.0); Mean Corpuscular HGB Conc 31.8 % (32.0-36.0); Mean Corpuscular Hemoglobin 28.5 pg (27.0-34.0); Mean Corpuscular Volume 89.4 fL (80.0-100.0); Mean Platelet Volume 8.5 fL (7.0-11.0); Neut # (Auto) 9.7 th/mm3 (1.8-7.7); Neut % (Auto) 77.3 % (16.0-70.0); Platelet Count 248 th/mm3 (150-450); Red Cell Distribution Width 15.4 % (11.6-17.2); White Blood Count 12.5 th/mm3 (4.0-11.0)
--- NOTE | 2018-03-29 12:49 | P.PNIM ---
Subjective Interval history: The patient was resting comfortably in bed. He said he was tolerating his meals. He says that he does not take aspirin because he had his gastric bypass and was told not to. Discussed with nursing and cardiology. He reports some mild discomfort where the cholecystostomy tube is. Physical Exam Vital signs: Vital Signs 03/28/18 13:00 03/28/18 13:56 03/28/18 15:00 Temperature Pulse Rate 85 82 68 Respiratory Rate Blood Pressure Pulse Oximetry 03/28/18 16:00 03/28/18 17:00 03/28/18 18:00 Temperature 98.2 F Pulse Rate 72 68 79 Respiratory Rate 17 Blood Pressure 118/56 L Pulse Oximetry 95 03/28/18 19:00 03/28/18 19:38 03/28/18 20:00 Temperature 98 F Pulse Rate 71 65 Respiratory Rate 18 Blood Pressure 120/68 Pulse Oximetry 92 L 95 03/28/18 21:00 03/28/18 21:07 03/28/18 22:00 Temperature Pulse Rate 71 83 Respiratory Rate 17 Blood Pressure Pulse Oximetry 03/28/18 23:00 03/29/18 00:00 03/29/18 01:00 Temperature 97.9 F Pulse Rate 69 65 68 Respiratory Rate 17 Blood Pressure 112/67 Pulse Oximetry 95 03/29/18 02:00 03/29/18 03:00 03/29/18 04:00 Temperature 98.4 F Pulse Rate 67 64 71 Respiratory Rate 19 Blood Pressure 115/60 Pulse Oximetry 96 03/29/18 05:00 03/29/18 06:00 03/29/18 07:00 Temperature Pulse Rate 75 76 77 Respiratory Rate Blood Pressure Pulse Oximetry 03/29/18 09:06 03/29/18 09:32 03/29/18 11:00 Temperature 97.8 F Pulse Rate 86 72 Respiratory Rate 16 Blood Pressure 107/64 Pulse Oximetry 96 96 03/29/18 12:00 Temperature 98 F Pulse Rate 80 Respiratory Rate 20 Blood Pressure 102/63 Pulse Oximetry 94 L Intake & Output 03/28/18 03/29/18 03/29/18 18:59 06:59 18:59 Intake Total 820 / 820 480 / 480 Output Total 650 / 650 875 / 875 Balance 170 / 170 -395 / -395 Weight 117.5 kg Intake: IV 100 / 100 Rocephin Inj 2,000 MG In NS Inj 100 / 100 100 ML @ 200 mls/hr IV.SIG Q24H [facility] Rx#:[id number] Oral 720 / 720 480 / 480 Output: Urine 650 / 650 850 / 850 Gastric Drainage Right Lower Quadrant Other: # Voids 1 4 Date of Last Bowel Movement 03/28/18 03/29/18 03/28/18 # Bowel Movements 2 1 Narrative: GENERAL: Well-developed, not in acute distress. SKIN: Cool and dry, no rash. HEAD: Atraumatic. Normocephalic. No temporal or scalp tenderness. EYES: Pupils equal round and reactive. anicteric NECK: Trachea midline. Supple, nontender, no meningeal signs. CARDIOVASCULAR: Regular rate and rhythm. RESPIRATORY: Clear to auscultation bilaterally. GASTROINTESTINAL: Abdomen soft , cholecystostomy tube in place. MUSCULOSKELETAL: Extremities without clubbing, cyanosis. NEUROLOGICAL: Alert oriented 3. Nonfocal deficits. Results - Labs CBC & Chem 7: 03/29/18 11:22 03/29/18 06:02 Laboratory Results - last 24 hr 03/26/18 03/28/18 03/28/18 05:30 16:26 20:29 WBC RBC Hgb Hct MCV MCH MCHC RDW Plt Count MPV Neut % (Auto) Lymph % (Auto) [place] % (Auto) Eos % (Auto) Baso % (Auto) Neut # (Auto) Lymph # (Auto) [place] # (Auto) Eos # (Auto) Baso # (Auto) WBC Differential Differential Comment Sodium Potassium Chloride Carbon Dioxide Anion Gap BUN Creatinine Estimated GFR POC Glucose 182 H 236 H Random Glucose Calcium Magnesium Total Bilirubin AST ALT Alkaline Phosphatase Total Protein Albumin MTS Gel Crossmatch See Detail 03/29/18 03/29/18 03/29/18 06:02 07:55 11:17 WBC RBC Hgb Hct MCV MCH MCHC RDW Plt Count MPV Neut % (Auto) Lymph % (Auto) [place] % (Auto) Eos % (Auto) Baso % (Auto) Neut # (Auto) Lymph # (Auto) [place] # (Auto) Eos # (Auto) Baso # (Auto) WBC Differential Differential Comment Sodium 139 Potassium 4.0 Chloride 100 Carbon Dioxide 30.7 Anion Gap 8 BUN 9 Creatinine 0.84 Estimated GFR Greater than 89 POC Glucose 137 H 199 H Random Glucose 162 H Calcium 7.7 L Magnesium 2.6 H Total Bilirubin 0.3 AST 29 ALT 29 Alkaline Phosphatase 152 H Total Protein 6.3 L D Albumin 2.0 L MTS Gel Crossmatch 03/29/18 11:22 WBC 12.5 H RBC 3.50 L Hgb 10.0 L Hct 31.3 L MCV 89.4 MCH 28.5 MCHC 31.8 L RDW 15.4 Plt Count 248 MPV 8.5 Neut % (Auto) 77.3 H Lymph % (Auto) 12.6 [place] % (Auto) 8.0 Eos % (Auto) 1.2 Baso % (Auto) 0.9 Neut # (Auto) 9.7 H Lymph # (Auto) 1.6 [place] # (Auto) 1.0 H Eos # (Auto) 0.1 Baso # (Auto) 0.1 WBC Differential . Differential Comment Auto diff final Sodium Potassium Chloride Carbon Dioxide Anion Gap BUN Creatinine Estimated GFR POC Glucose Random Glucose Calcium Magnesium Total Bilirubin AST ALT Alkaline Phosphatase Total Protein Albumin MTS Gel Crossmatch - Procedures 03/22- cholecystostomy tube placement 03/23- cardiac cath Assessment and Plan - Assessment (1) Cholecystitis Code(s): K81.9 - Cholecystitis, unspecified Status: Acute - Plan Sepsis - E. coli and Klebsiella pneumonia on blood cultures -03/19 Acute cholecystitis - which is likely the source of the sepsis. S/P cholecystostomy tube drain- not a candidate for cholecystectomy at this time due to CAD Leukocytosis. White blood cell count elevated. - trending down - Repeat blood cultures from 03/20- no growth so far - continue with IV antibiotics- Ceftriaxone stop date 04/03- then we will repeat blood cultures - evaluated by GI and general surgery.- plan for surgery after blood cultures are negative times 48 hours per ID - continue with pain control and antiemetics as needed. ACS, NSTEMI s/p cardiac cath with multivessel disease -CT surgery consult appreciated; plan for CABG when cleared by ID as above. -echo with EF 60% with no regional wall motion abnormalities - s/p KELLY with no vegetation - Dr. Carlin following. -ASA, Cardizem, Lipitor. -Cardiology following. DM II Relatively well controlled. -continue Levemir and sliding scale and adjust as needed. GERD -on PPI. DVT prophylaxis with Lovenox
--- NOTE | 2018-03-29 13:38 | P.PNCV ---
- Note Subjective/Hospital Course: 67-year-old male who presented to [facility] 03/19/18 due to nausea, vomiting and abdominal pain. He states that he was awakened at 6 a.m. with left -sided flank pain and left mid back pain radiating to the left lower quadrant. He developed nausea and vomiting secondary to the pain. he was incidentally found to have cholecystitis, perc burt tube was placed , Trop was + underwent cardiac cath by Dr Pérez : mid LAD 80%, Left Circ 70 % lesion, RCA 100% occluded in the mid portion with [id number] and right-to- right collaterals supplying the distal portion. Blood cultures grew klebsiella pneumoniae and E coli , followed by ID and recommended to at least complete one week course of IV antibiotics prior to surgery PAST MEDICAL HISTORY: Diabetes, GERD, Hyperlipidemia, morbid obesity with BMI 40, History of gastric bypass. 03/27 pt is pain free at this time , has perc burt drain US of lower ext neg for DVT, Carotid US no stenosis continues on IV antibiotics per ID : VIVIENNE cefepime IV Ceftriaxone IV once a day (stop date: 04/03/2018) after which we will repeat BCX on 04/04/18. If these repeat bcx are negative at 48 hrs and patient clinically doing well will clear him from CABG. VIVIENNE Flagyl consult PT 03/28 pain free will follow / schedule for surgery next week when cleared by ID 03/29 still has some mild right flank pain burt drain in place no chest pain Objective: Vital Signs - 24 hr 03/28/18 13:56 03/28/18 15:00 03/28/18 16:00 Temperature 98.2 F Pulse Rate 82 68 72 Respiratory Rate 17 Blood Pressure 118/56 L Pulse Oximetry 95 03/28/18 17:00 03/28/18 18:00 03/28/18 19:00 Temperature Pulse Rate 68 79 71 Respiratory Rate Blood Pressure Pulse Oximetry 03/28/18 19:38 03/28/18 20:00 03/28/18 21:00 Temperature 98 F Pulse Rate 65 71 Respiratory Rate 18 Blood Pressure 120/68 Pulse Oximetry 92 L 95 03/28/18 21:07 03/28/18 22:00 03/28/18 23:00 Temperature Pulse Rate 83 69 Respiratory Rate 17 Blood Pressure Pulse Oximetry 03/29/18 00:00 03/29/18 01:00 03/29/18 02:00 Temperature 97.9 F Pulse Rate 65 68 67 Respiratory Rate 17 Blood Pressure 112/67 Pulse Oximetry 95 03/29/18 03:00 03/29/18 04:00 03/29/18 05:00 Temperature 98.4 F Pulse Rate 64 71 75 Respiratory Rate 19 Blood Pressure 115/60 Pulse Oximetry 96 03/29/18 06:00 03/29/18 07:00 03/29/18 09:06 Temperature 97.8 F Pulse Rate 76 77 86 Respiratory Rate 16 Blood Pressure 107/64 Pulse Oximetry 96 03/29/18 09:32 03/29/18 11:00 03/29/18 12:00 Temperature 98 F Pulse Rate 72 80 Respiratory Rate 20 Blood Pressure 102/63 Pulse Oximetry 96 94 L GENERAL: A&O x 3 SKIN: Warm and dry. burt drain right flank HEAD: Normocephalic. EYES: No scleral icterus. No injection or drainage. NECK: Supple, trachea midline. No JVD or lymphadenopathy. CARDIOVASCULAR: Regular rate and rhythm without murmurs, gallops, or rubs. RESPIRATORY: Breath sounds equal bilaterally. No accessory muscle use. GASTROINTESTINAL: Abdomen soft, non-tender, nondistended. MUSCULOSKELETAL: No cyanosis, or edema. BACK: Nontender without obvious deformity. No CVA tenderness. Labs: Laboratory Results - last 12 hr 03/26/18 03/29/18 03/29/18 05:30 06:02 07:55 WBC RBC Hgb Hct MCV MCH MCHC RDW Plt Count MPV Neut % (Auto) Lymph % (Auto) [place] % (Auto) Eos % (Auto) Baso % (Auto) Neut # (Auto) Lymph # (Auto) [place] # (Auto) Eos # (Auto) Baso # (Auto) WBC Differential Differential Comment Sodium 139 Potassium 4.0 Chloride 100 Carbon Dioxide 30.7 Anion Gap 8 BUN 9 Creatinine 0.84 Estimated GFR Greater than 89 POC Glucose 137 H Random Glucose 162 H Calcium 7.7 L Magnesium 2.6 H Total Bilirubin 0.3 AST 29 ALT 29 Alkaline Phosphatase 152 H Total Protein 6.3 L D Albumin 2.0 L MTS Gel Crossmatch See Detail 03/29/18 03/29/18 11:17 11:22 WBC 12.5 H RBC 3.50 L Hgb 10.0 L Hct 31.3 L MCV 89.4 MCH 28.5 MCHC 31.8 L RDW 15.4 Plt Count 248 MPV 8.5 Neut % (Auto) 77.3 H Lymph % (Auto) 12.6 [place] % (Auto) 8.0 Eos % (Auto) 1.2 Baso % (Auto) 0.9 Neut # (Auto) 9.7 H Lymph # (Auto) 1.6 [place] # (Auto) 1.0 H Eos # (Auto) 0.1 Baso # (Auto) 0.1 WBC Differential . Differential Comment Auto diff final Sodium Potassium Chloride Carbon Dioxide Anion Gap BUN Creatinine Estimated GFR POC Glucose 199 H Random Glucose Calcium Magnesium Total Bilirubin AST ALT Alkaline Phosphatase Total Protein Albumin MTS Gel Crossmatch Result Diagrams: 03/29/18 11:22 03/29/18 06:02 - Plan (1) Coronary artery disease involving iroquois coronary artery Plan: on ASA, low dose BB eval for surgery after 04/04 per ID lovenox OOB/ PT (3) Afib Plan: in NSR (4) Cholecystitis Plan: s/p perc drain
--- NOTE | 2018-03-29 23:07 | P.PNCA ---
Subjective Interval history: No events overnight Working with PT No chest pain Medications and Allergies Active Medications: Active Medications Acetaminophen (Tylenol) 650 mg PO Q4H PRN PRN Reason: Temp > 100.4 Last Admin: 03/27/18 09:04 Dose: 650 mg Al Hydroxide/Mg Hydroxide (Milk Of Magnsofia Liq) 30 ml PO Q12H PRN PRN Reason: Mild Constipation Last Admin: 03/25/18 15:47 Dose: 30 ml Aspirin (Ecotrin) 81 mg PO DAILY [facility] Last Admin: 03/29/18 09:24 Dose: 81 mg Atorvastatin Calcium (Lipitor) 20 mg PO DAILY [facility] Last Admin: 03/29/18 09:23 Dose: 20 mg Bisacodyl (Dulcolax Supp) 10 mg RECTAL DAILY PRN PRN Reason: SEVERE CONSITIPATION Last Admin: 03/25/18 21:11 Dose: 10 mg Chlorhexidine Gluconate (Hibiclens 4% Topical) 1 applicatio TOPICAL C D [employer] [facility] Stop: 03/31/18 12:49 Sodium Chloride 500 ml/ (Cefazolin Sodium 500 mg) 0 ml IRRIGATION C [employer] [facility] Stop: 03/31/18 12:51 Sodium Chloride 77.5 ml/Papaverine HCl 60 mg/Nitroglycerin 100 mcg/Diltiazem HCl 100 mg 0 ml IRRIGATION C D [employer] [facility] Stop: 03/31/18 12:49 Dextrose (D50w Vial) 50 ml IV.PUSH UNSCH PRN PRN Reason: PER HYPOGLYCEMIA PROTOCOL Diltiazem HCl (Cardizem) 30 mg PO QID [facility] Last Admin: 03/29/18 20:25 Dose: 30 mg Enoxaparin Sodium (Lovenox Inj) 40 mg SQ DAILY [facility] Last Admin: 03/29/18 09:24 Dose: 40 mg Glucagon (Glucagon Inj) 1 mg OTHER PRN PRN PRN Reason: for Hypoglycemia Protocol Insulin Human Regular 100 unit (/ Sodium Chloride) 100 mls @ 3 mls/hr IV.CONT TITRATE PRN; Protocol PRN Reason: See Protocol Ceftriaxone Sodium 2,000 mg/ (Sodium Chloride) 100 mls @ 200 mls/hr IV.SIG Q24H [facility] Last Admin: 03/29/18 11:15 Dose: 200 mls/hr Insulin Aspart (Novolog Insulin Correctional Sugar Inj) 0 unit SQ ACHS [facility]; Protocol Last Admin: 03/29/18 20:25 Dose: 2 unit Insulin Detemir (Levemir Inj) 5 unit SQ BID [facility] Last Admin: 03/29/18 20:25 Dose: 5 unit Lactulose (Lactulose Liq) 30 ml PO DAILY PRN PRN Reason: SEVERE CONSITIPATION Last Admin: 03/25/18 15:47 Dose: 30 ml Magnesium Oxide (Mag-Ox) 400 mg PO BID [facility] Last Admin: 03/29/18 22:40 Dose: Not Given Metformin HCl (Glucophage) 1,000 mg PO BID [facility] Last Admin: 03/29/18 20:24 Dose: 1,000 mg Metoprolol Tartrate (Lopressor) 12.5 mg PO C D [employer] [facility] Stop: 03/31/18 12:51 Morphine Sulfate (Morphine Inj) 2 mg IV.PUSH Q3H PRN PRN Reason: PAIN SCALE 6 TO 10 Last Admin: 03/29/18 20:26 Dose: 2 mg Ondansetron HCl (Zofran Inj) 4 mg IV.PUSH Q6H PRN PRN Reason: NAUSEA OR VOMITING Last Admin: 03/26/18 21:11 Dose: 4 mg Pantoprazole Sodium (Protonix) 40 mg PO DAILY [facility] Last Admin: 03/29/18 09:23 Dose: 40 mg Potassium Chloride (K-Dur) 20 meq PO DAILY [facility] Last Admin: 03/29/18 09:23 Dose: 20 meq Senna/Docusate Sodium (Carlotta-Colace) 1 tab PO BID [facility] Last Admin: 03/29/18 20:25 Dose: 1 tab Sennosides (Senokot) 17.2 mg PO Q12H PRN PRN Reason: Moderate Constipation Last Admin: 03/25/18 15:47 Dose: 17.2 mg Sodium Chloride (Ns Flush) 2 ml IV.FLUSH BID [facility] Last Admin: 03/29/18 20:26 Dose: 2 ml Sodium Chloride (Ns Flush) 2 ml IV.FLUSH PRN PRN PRN Reason: FLUSH AFTER USING IV ACCESS Last Admin: 03/26/18 02:04 Dose: 2 ml Allergies Allergy/AdvReac Type Severity Reaction Status Date / Time No Known Allergies Allergy Verified 03/19/18 10:28 Home Medications Medication Instructions Recorded Confirmed Type atorvastatin 20 mg PO DAILY 03/19/18 03/19/18 History liraglutide [Victoza 2-Sonido] 0.6 mg SUBCUT DAILY 03/19/18 03/19/18 History metformin 1,000 mg PO BID 03/19/18 03/19/18 History omeprazole-sodium bicarbonate 1 cap PO DAILY 03/19/18 03/19/18 History pantoprazole 20 mg PO DAILY 03/19/18 03/19/18 History Physical Exam Vital signs: Vital Signs 03/29/18 00:00 03/29/18 01:00 03/29/18 02:00 Temperature 97.9 F Pulse Rate 65 68 67 Respiratory Rate 17 Blood Pressure 112/67 Pulse Oximetry 95 03/29/18 03:00 03/29/18 04:00 03/29/18 05:00 Temperature 98.4 F Pulse Rate 64 71 75 Respiratory Rate 19 Blood Pressure 115/60 Pulse Oximetry 96 03/29/18 06:00 03/29/18 07:00 03/29/18 08:00 Temperature Pulse Rate 76 77 78 Respiratory Rate Blood Pressure Pulse Oximetry 03/29/18 09:00 03/29/18 09:06 03/29/18 09:32 Temperature 97.8 F Pulse Rate 68 86 Respiratory Rate 16 Blood Pressure 107/64 Pulse Oximetry 96 96 03/29/18 10:00 03/29/18 11:00 03/29/18 12:00 Temperature 98 F Pulse Rate 90 72 70 Respiratory Rate 20 Blood Pressure 102/63 Pulse Oximetry 94 L 03/29/18 13:00 03/29/18 14:00 03/29/18 15:00 Temperature Pulse Rate 70 78 72 Respiratory Rate Blood Pressure Pulse Oximetry 03/29/18 16:00 03/29/18 17:00 03/29/18 18:00 Temperature 97.9 F Pulse Rate 72 68 78 Respiratory Rate 16 Blood Pressure 110/82 Pulse Oximetry 96 03/29/18 20:00 03/29/18 20:30 Temperature 98.3 F Pulse Rate 74 Respiratory Rate 18 18 Blood Pressure 114/60 Pulse Oximetry 93 L Intake & Output 03/29/18 03/29/18 03/30/18 06:59 18:59 06:59 Intake Total 480 / 480 1040 / 1040 Output Total 875 / 875 1200 / 1200 Balance -395 / -395 -160 / -160 Weight 117.5 kg Intake: Oral 480 / 480 1040 / 1040 Output: Urine 850 / 850 1200 / 1200 Gastric Drainage Right Lower Quadrant Other: # Voids 4 Date of Last Bowel Movement 03/29/18 03/28/18 03/29/18 # Bowel Movements 1 Narrative: GENERAL: Well-developed, not in acute distress. SKIN: Cool and dry, no rash. HEAD: Atraumatic. Normocephalic. No temporal or scalp tenderness. EYES: Pupils equal round and reactive. anicteric NECK: Trachea midline. Supple, nontender, no meningeal signs. CARDIOVASCULAR: Regular rate and rhythm. RESPIRATORY: Clear to auscultation bilaterally. GASTROINTESTINAL: Abdomen soft , cholecystostomy tube in place. MUSCULOSKELETAL: Extremities without clubbing, cyanosis. NEUROLOGICAL: Alert oriented 3. Nonfocal deficits. Results 03/29/18 11:22 03/29/18 06:02 Cardiac Enzymes 03/28/18 03/29/18 Range/Units 04:33 06:02 AST 24 29 (15-37) U/L CBC 03/28/18 03/29/18 Range/Units 04:33 11:22 WBC 12.4 H 12.5 H (4.0-11.0) th/mm3 RBC 3.45 L 3.50 L (4.50-5.90) mil/mm3 Hgb 9.7 L 10.0 L (13.0-17.0) gm/dL Hct 30.2 L 31.3 L (39.0-51.0) % Plt Count 247 248 (150-450) th/mm3 Neut # (Auto) 9.2 H 9.7 H (1.8-7.7) th/mm3 Lymph # (Auto) 1.9 1.6 (1.0-4.8) th/mm3 [place] # (Auto) 1.2 H 1.0 H (0.0-0.9) th/mm3 Eos # (Auto) 0.1 0.1 (0.0-0.4) th/mm3 Baso # (Auto) 0.1 0.1 (0.0-0.2) th/mm3 Comprehensive Metabolic Panel 03/28/18 03/29/18 Range/Units 04:33 06:02 Sodium 140 139 (136-145) meq/L Potassium 3.4 L 4.0 (3.5-5.1) meq/L Chloride 103 100 (98-107) meq/L Carbon Dioxide 32.0 30.7 (21.0-32.0) meq/L BUN 10 9 (7-18) mg/dL Creatinine 0.62 0.84 (0.60-1.30) mg/dL Calcium 7.2 L* 7.7 L (8.5-10.1) mg/dL AST 24 29 (15-37) U/L ALT 28 29 (12-78) U/L Alkaline Phosphatase 139 H 152 H (45-117) U/L Total Protein 5.6 L D 6.3 L D (6.4-8.2) g/dL Albumin 1.7 L 2.0 L (3.4-5.0) g/dL Intake and Output 03/29/18 03/29/18 03/30/18 14:59 22:59 06:59 Intake Total 1040 / 1040 Output Total 1200 / 1200 Balance -160 / -160 Intake: Oral 1040 / 1040 Output: Urine 1200 / 1200 Other: Date of Last Bowel Movement 03/28/18 03/29/18 Assessment and Plan - Assessment (1) NSTEMI (non-ST elevated myocardial infarction) Code(s): I21.4 - Non-ST elevation (NSTEMI) myocardial infarction Status: Acute (2) Afib Code(s): I48.91 - Unspecified atrial fibrillation Status: Acute (3) SIRS (systemic inflammatory response syndrome) Code(s): R65.10 - Systemic inflammatory response syndrome (SIRS) of non- infectious origin without acute organ dysfunction Status: Acute (4) Intractable abdominal pain Code(s): R10.9 - Unspecified abdominal pain Status: Acute - Plan 1) Abdominal pain/nausea/emesis Found to have cholecystitis Perc burt drain in place with relief of symptoms 2) NSTEMI Found to have multivessel CAD CT surgery evaluation Complex case with acute cholecystitis with percutaneous cholecystostomy tube Await repeat blood cultures, if negative then CABG 3) Afib New onset Started on Cardizem, heart rates controlled Eventual anti-coagulation 4) Bacteremia KELLY negative for vegetation, no signs of endocarditis 5) Discussed with Dr. Calvo Will hold off on Cscope due to multivessel CAD 6) Plan to increase Lovenox to anti-coagulation dose due to MVCAD/NSTEMI and Afib since surgery will be put off for a week
[2018-03-30] MEDS: Morphine Sulfate Inj 2 MG/ML Vial IV.PUSH PRN ×3 (02:22→23:59)
[2018-03-30 06:38] LABS: Hematocrit 33.7 % (39.0-51.0); Hemoglobin 10.7 gm/dL (13.0-17.0); Mean Corpuscular HGB Conc 31.8 % (32.0-36.0); Mean Corpuscular Hemoglobin 28.1 pg (27.0-34.0); Mean Corpuscular Volume 88.2 fL (80.0-100.0); Mean Platelet Volume 9.2 fL (7.0-11.0); Platelet Count 305 th/mm3 (150-450); Red Blood Count 3.82 mil/mm3 (4.50-5.90); White Blood Count 14.1 th/mm3 (4.0-11.0)
[2018-03-30 07:06] LABS: Anion Gap 7 meq/L (5-15); Blood Urea Nitrogen 9 mg/dL (7-18); Calcium 7.9 mg/dL (8.5-10.1); Carbon Dioxide 26.9 meq/L (21.0-32.0); Chloride 103 meq/L (98-107); Glomerular Filtration Rate Greater Than 89 mL/min (>89); Glucose,Random 124 mg/dL (74-106); Potassium 4.2 meq/L (3.5-5.1); Sodium 137 meq/L (136-145)
[2018-03-30] MEDS: Enoxaparin Inj 120 MG/0.8 ML Syringe SQ SCH ×2 (08:25→21:17)
[2018-03-30] MEDS: dilTIAZem 30 MG Tablet PO SCH ×4 (08:26→21:18)
[2018-03-30] MEDS: Magnesium Oxide 400 MG Tablet PO SCH ×2 (08:26→21:18)
[2018-03-30] MEDS: Senna/Docusate Sodium 8.6/50 MG Tablet PO SCH ×2 (08:26→21:18)
[2018-03-30] MEDS: Insulin NovoLOG Aspart Correctional Sugar Inj SQ SCH ×4 (08:27→21:19)
[2018-03-30] MEDS: Sodium Chloride 0.9% 2 ML Flush BID IV.FLUSH SCH ×2 (09:26→21:00)
[2018-03-30] MEDS: Insulin Detemir Inj 1,000 UNIT/10 ML Vial SQ SCH ×2 (09:26→21:19)
--- NOTE | 2018-03-30 17:16 | P.PNIM ---
Subjective Interval history: The patient said that he was overall feeling better but he was still nauseous. He said they attended to his drainage tube earlier. He requests a stool softener. No other acute concerns. Physical Exam Vital signs: Vital Signs 03/29/18 18:00 03/29/18 19:00 03/29/18 20:00 Temperature 98.3 F Pulse Rate 78 79 74 Respiratory Rate 18 Blood Pressure 114/60 Pulse Oximetry 93 L 03/29/18 20:30 03/29/18 21:00 03/29/18 22:00 Temperature Pulse Rate 75 78 Respiratory Rate 18 Blood Pressure Pulse Oximetry 03/29/18 23:00 03/30/18 00:00 03/30/18 01:00 Temperature 98.7 F Pulse Rate 70 74 71 Respiratory Rate 18 Blood Pressure 103/66 Pulse Oximetry 94 L 03/30/18 02:00 03/30/18 02:30 03/30/18 03:00 Temperature Pulse Rate 69 69 Respiratory Rate 18 Blood Pressure Pulse Oximetry 03/30/18 04:00 03/30/18 05:00 03/30/18 06:00 Temperature 98.2 F Pulse Rate 68 73 68 Respiratory Rate 18 Blood Pressure 107/67 Pulse Oximetry 94 L 03/30/18 07:00 03/30/18 08:00 03/30/18 09:00 Temperature 97.9 F Pulse Rate 100 H 74 80 Respiratory Rate 20 Blood Pressure 124/71 Pulse Oximetry 95 03/30/18 10:00 03/30/18 11:00 03/30/18 12:00 Temperature Pulse Rate 74 76 78 Respiratory Rate 20 Blood Pressure 107/64 Pulse Oximetry 98 03/30/18 13:00 03/30/18 14:00 03/30/18 15:00 Temperature Pulse Rate 80 80 76 Respiratory Rate Blood Pressure Pulse Oximetry 03/30/18 16:00 Temperature Pulse Rate 74 Respiratory Rate 18 Blood Pressure 106/65 Pulse Oximetry 98 Intake & Output 03/29/18 03/30/18 03/30/18 18:59 06:59 18:59 Intake Total 1040 / 1040 480 / 480 200 / 200 Output Total 1200 / 1200 1175 / 1175 Balance -160 / -160 -695 / -695 200 / 200 Weight 118 kg Intake: IV 200 / 200 Rocephin Inj 2,000 MG In NS Inj 200 / 200 100 ML @ 200 mls/hr IV.SIG Q24H [facility] Rx#:[id number] Oral 1040 / 1040 480 / 480 Output: Urine 1200 / 1200 1175 / 1175 Other: Date of Last Bowel Movement 03/28/18 03/29/18 03/29/18 Narrative: GENERAL: Well-developed, not in acute distress. SKIN: Cool and dry, no rash. HEAD: Atraumatic. Normocephalic. No temporal or scalp tenderness. EYES: Pupils equal round and reactive. anicteric NECK: Trachea midline. Supple, nontender, no meningeal signs. CARDIOVASCULAR: Regular rate and rhythm. RESPIRATORY: Clear to auscultation bilaterally. GASTROINTESTINAL: Abdomen soft , cholecystostomy tube in place. MUSCULOSKELETAL: Extremities without clubbing, cyanosis. NEUROLOGICAL: Alert oriented 3. Nonfocal deficits. Results - Labs CBC & Chem 7: 03/30/18 05:23 03/30/18 05:23 Laboratory Results - last 24 hr 03/29/18 03/30/18 03/30/18 19:52 05:23 05:23 WBC 14.1 H RBC 3.82 L Hgb 10.7 L Hct 33.7 L MCV 88.2 MCH 28.1 MCHC 31.8 L RDW 15.0 Plt Count 305 MPV 9.2 Sodium 137 Potassium 4.2 Chloride 103 Carbon Dioxide 26.9 Anion Gap 7 BUN 9 Creatinine 0.73 Estimated GFR Greater than 89 POC Glucose 184 H Random Glucose 124 H Calcium 7.9 L 03/30/18 03/30/18 11:41 16:20 WBC RBC Hgb Hct MCV MCH MCHC RDW Plt Count MPV Sodium Potassium Chloride Carbon Dioxide Anion Gap BUN Creatinine Estimated GFR POC Glucose 144 H 148 H Random Glucose Calcium - Procedures 03/22- cholecystostomy tube placement 03/23- cardiac cath Assessment and Plan - Assessment (1) Cholecystitis Code(s): K81.9 - Cholecystitis, unspecified Status: Acute - Plan Sepsis - E. coli and Klebsiella pneumonia on blood cultures -03/19 Acute cholecystitis - which is likely the source of the sepsis. S/P cholecystostomy tube drain- not a candidate for cholecystectomy at this time due to CAD Leukocytosis. White blood cell count elevated. - trending down -Repeat blood cultures from 03/20- no growth so far -continue with IV antibiotics- Ceftriaxone stop date 04/03- then we will repeat blood cultures -evaluated by GI and general surgery.- plan for surgery after blood cultures are negative times 48 hours per ID -continue with pain control and antiemetics as needed. -repeat LFTs, lipase. -continue PPI. ACS, NSTEMI s/p cardiac cath with multivessel disease -CT surgery consult appreciated; plan for CABG when cleared by ID as above. -echo with EF 60% with no regional wall motion abnormalities -s/p KELLY with no vegetation -Dr. Carlin following. -ASA, Cardizem, Lipitor. -Cardiology following. DM II Relatively well controlled. -continue Levemir and sliding scale and adjust as needed. DVT prophylaxis with Lovenox
--- NOTE | 2018-03-30 18:30 | P.PNCA ---
Subjective Interval history: No events overnight No complaints Medications and Allergies Active Medications: Active Medications Acetaminophen (Tylenol) 650 mg PO Q4H PRN PRN Reason: Temp > 100.4 Last Admin: 03/27/18 09:04 Dose: 650 mg Al Hydroxide/Mg Hydroxide (Milk Of Magnsofia Liq) 30 ml PO Q12H PRN PRN Reason: Mild Constipation Last Admin: 03/25/18 15:47 Dose: 30 ml Aspirin (Ecotrin) 81 mg PO DAILY [facility] Last Admin: 03/30/18 08:26 Dose: 81 mg Atorvastatin Calcium (Lipitor) 20 mg PO DAILY [facility] Last Admin: 03/30/18 08:26 Dose: 20 mg Bisacodyl (Dulcolax Supp) 10 mg RECTAL DAILY PRN PRN Reason: SEVERE CONSITIPATION Last Admin: 03/25/18 21:11 Dose: 10 mg Bisacodyl (Dulcolax Ec) 10 mg PO ONCE ONE Last Admin: 03/30/18 17:35 Dose: 10 mg Chlorhexidine Gluconate (Hibiclens 4% Topical) 1 applicatio [employer] SAL[employer]PRESENTATIVE [employer] [facility] Stop: 03/31/18 12:49 Sodium Chloride 500 ml/ (Cefazolin Sodium 500 mg) 0 ml [employer] SALES REPRESENTATIVE [employer] [facility] Stop: 03/31/18 12:51 Sodium Chloride 77.5 ml/Papaverine HCl 60 mg/Nitroglycerin 100 mcg/Diltiazem HCl 100 mg 0 ml [employer]ATION SALES REPRESENTATIVE [employer] [facility] Stop: 03/31/18 12:49 Dextrose (D50w Vial) 50 ml IV.PUSH UNSCH PRN PRN Reason: PER HYPOGLYCEMIA PROTOCOL Diltiazem HCl (Cardizem) 30 mg PO QID [facility] Last Admin: 03/30/18 17:34 Dose: 30 mg Enoxaparin Sodium (Lovenox Inj) 120 mg SQ Q12HR [facility] Last Admin: 03/30/18 08:25 Dose: 120 mg Glucagon (Glucagon Inj) 1 mg OTHER PRN PRN PRN Reason: for Hypoglycemia Protocol Ceftriaxone Sodium 2,000 mg/ (Sodium Chloride) 100 mls @ 200 mls/hr IV.SIG Q24H [facility] Last Infusion: 03/30/18 13:38 Dose: Infused Insulin Aspart (Novolog Insulin Correctional Sugar Inj) 0 unit SQ ACHS [facility]; Protocol Last Admin: 03/30/18 17:33 Dose: Not Given Insulin Detemir (Levemir Inj) 5 unit SQ BID [facility] Last Admin: 03/30/18 09:26 Dose: 5 unit Lactulose (Lactulose Liq) 30 ml PO DAILY PRN PRN Reason: SEVERE CONSITIPATION Last Admin: 03/25/18 15:47 Dose: 30 ml Magnesium Oxide (Mag-Ox) 400 mg PO BID [facility] Last Admin: 03/30/18 08:26 Dose: 400 mg Metformin HCl (Glucophage) 1,000 mg PO BID [facility] Last Admin: 03/30/18 08:26 Dose: 1,000 mg Metoprolol Tartrate (Lopressor) 12.5 mg PO SALES REPRESENTATIVE [employer] [facility] Stop: 03/31/18 12:51 Morphine Sulfate (Morphine Inj) 2 mg IV.PUSH Q3H PRN PRN Reason: PAIN SCALE 6 TO 10 Last Admin: 03/30/18 02:22 Dose: 2 mg Ondansetron HCl (Zofran Inj) 4 mg IV.PUSH Q6H PRN PRN Reason: NAUSEA OR VOMITING Last Admin: 03/30/18 12:50 Dose: 4 mg Pantoprazole Sodium (Protonix) 40 mg PO DAILY [facility] Last Admin: 03/30/18 09:31 Dose: 40 mg Potassium Chloride (K-Dur) 20 meq PO DAILY [facility] Last Admin: 03/30/18 08:26 Dose: 20 meq Senna/Docusate Sodium (Carlotta-Colace) 1 tab PO BID [facility] Last Admin: 03/30/18 08:26 Dose: 1 tab Sennosides (Senokot) 17.2 mg PO Q12H PRN PRN Reason: Moderate Constipation Last Admin: 03/30/18 05:24 Dose: 17.2 mg Sodium Chloride (Ns Flush) 2 ml IV.FLUSH BID [facility] Last Admin: 03/30/18 09:26 Dose: 2 ml Sodium Chloride (Ns Flush) 2 ml IV.FLUSH PRN PRN PRN Reason: FLUSH AFTER USING IV ACCESS Last Admin: 03/26/18 02:04 Dose: 2 ml Allergies Allergy/AdvReac Type Severity Reaction Status Date / Time No Known Allergies Allergy Verified 03/19/18 10:28 Home Medications Medication Instructions Recorded Confirmed Type atorvastatin 20 mg PO DAILY 03/19/18 03/19/18 History liraglutide [Victoza 2-Sonido] 0.6 mg SUBCUT DAILY 03/19/18 03/19/18 History metformin 1,000 mg PO BID 03/19/18 03/19/18 History omeprazole-sodium bicarbonate 1 cap PO DAILY 03/19/18 03/19/18 History pantoprazole 20 mg PO DAILY 03/19/18 03/19/18 History Physical Exam Vital signs: Vital Signs 03/29/18 19:00 03/29/18 20:00 03/29/18 20:30 Temperature 98.3 F Pulse Rate 79 74 Respiratory Rate 18 18 Blood Pressure 114/60 Pulse Oximetry 93 L 03/29/18 21:00 03/29/18 22:00 03/29/18 23:00 Temperature Pulse Rate 75 78 70 Respiratory Rate Blood Pressure Pulse Oximetry 03/30/18 00:00 03/30/18 01:00 03/30/18 02:00 Temperature 98.7 F Pulse Rate 74 71 69 Respiratory Rate 18 Blood Pressure 103/66 Pulse Oximetry 94 L 03/30/18 02:30 03/30/18 03:00 03/30/18 04:00 Temperature 98.2 F Pulse Rate 69 68 Respiratory Rate 18 18 Blood Pressure 107/67 Pulse Oximetry 94 L 03/30/18 05:00 03/30/18 06:00 03/30/18 07:00 Temperature Pulse Rate 73 68 100 H Respiratory Rate Blood Pressure Pulse Oximetry 03/30/18 08:00 03/30/18 09:00 03/30/18 10:00 Temperature 97.9 F Pulse Rate 74 80 74 Respiratory Rate 20 Blood Pressure 124/71 Pulse Oximetry 95 03/30/18 11:00 03/30/18 12:00 03/30/18 13:00 Temperature Pulse Rate 76 78 80 Respiratory Rate 20 Blood Pressure 107/64 Pulse Oximetry 98 03/30/18 14:00 03/30/18 15:00 03/30/18 16:00 Temperature Pulse Rate 80 76 74 Respiratory Rate 18 Blood Pressure 106/65 Pulse Oximetry 98 03/30/18 17:00 03/30/18 17:51 Temperature Pulse Rate 76 Respiratory Rate Blood Pressure Pulse Oximetry 95 Intake & Output 03/29/18 03/30/18 03/30/18 18:59 06:59 18:59 Intake Total 1040 / 1040 480 / 480 1140 / 1140 Output Total 1200 / 1200 1175 / 1175 1425 / 1425 Balance -160 / -160 -695 / -695 -285 / -285 Weight 118 kg Intake: IV 200 / 200 Rocephin Inj 2,000 MG In NS Inj 200 / 200 100 ML @ 200 mls/hr IV.SIG Q24H [facility] Rx#:[id number] Oral 1040 / 1040 480 / 480 940 / 940 Output: Urine 1200 / 1200 1175 / 1175 1425 / 1425 Other: Date of Last Bowel Movement 03/28/18 03/29/18 03/29/18 Narrative: GENERAL: Well-developed, not in acute distress. SKIN: Cool and dry, no rash. HEAD: Atraumatic. Normocephalic. No temporal or scalp tenderness. EYES: Pupils equal round and reactive. anicteric NECK: Trachea midline. Supple, nontender, no meningeal signs. CARDIOVASCULAR: Regular rate and rhythm. RESPIRATORY: Clear to auscultation bilaterally. GASTROINTESTINAL: Abdomen soft , cholecystostomy tube in place. MUSCULOSKELETAL: Extremities without clubbing, cyanosis. NEUROLOGICAL: Alert oriented 3. Nonfocal deficits. Results 03/30/18 05:23 03/30/18 05:23 Cardiac Enzymes 03/29/18 Range/Units 06:02 AST 29 (15-37) U/L CBC 03/29/18 03/30/18 Range/Units 11:22 05:23 WBC 12.5 H 14.1 H (4.0-11.0) th/mm3 RBC 3.50 L 3.82 L (4.50-5.90) mil/mm3 Hgb 10.0 L 10.7 L (13.0-17.0) gm/dL Hct 31.3 L 33.7 L (39.0-51.0) % Plt Count 248 305 (150-450) th/mm3 Neut # (Auto) 9.7 H (1.8-7.7) th/mm3 Lymph # (Auto) 1.6 (1.0-4.8) th/mm3 Barron # (Auto) 1.0 H (0.0-0.9) th/mm3 Eos # (Auto) 0.1 (0.0-0.4) th/mm3 Baso # (Auto) 0.1 (0.0-0.2) th/mm3 Comprehensive Metabolic Panel 03/29/18 03/30/18 Range/Units 06:02 05:23 Sodium 139 137 (136-145) meq/L Potassium 4.0 4.2 (3.5-5.1) meq/L Chloride 100 103 (98-107) meq/L Carbon Dioxide 30.7 26.9 (21.0-32.0) meq/L BUN 9 9 (7-18) mg/dL Creatinine 0.84 0.73 (0.60-1.30) mg/dL Calcium 7.7 L 7.9 L (8.5-10.1) mg/dL AST 29 (15-37) U/L ALT 29 (12-78) U/L Alkaline Phosphatase 152 H (45-117) U/L Total Protein 6.3 L D (6.4-8.2) g/dL Albumin 2.0 L (3.4-5.0) g/dL Intake and Output 03/30/18 03/30/18 03/30/18 06:59 14:59 22:59 Intake Total 480 / 480 200 / 200 940 / 940 Output Total 1175 / 1175 1425 / 1425 Balance -695 / -695 200 / 200 -485 / -485 Intake: IV 200 / 200 Rocephin Inj 2,000 MG In NS Inj 200 / 200 100 ML @ 200 mls/hr IV.SIG Q24H [facility] Rx#:[id number] Oral 480 / 480 940 / 940 Output: Urine 1175 / 1175 1425 / 1425 Other: Date of Last Bowel Movement 03/29/18 03/29/18 03/29/18 Weight 118 kg Assessment and Plan - Assessment (1) NSTEMI (non-ST elevated myocardial infarction) Code(s): I21.4 - Non-ST elevation (NSTEMI) myocardial infarction Status: Acute (2) Afib Code(s): I48.91 - Unspecified atrial fibrillation Status: Acute (3) SIRS (systemic inflammatory response syndrome) Code(s): R65.10 - Systemic inflammatory response syndrome (SIRS) of non- infectious origin without acute organ dysfunction Status: Acute (4) Intractable abdominal pain Code(s): R10.9 - Unspecified abdominal pain Status: Acute - Plan 1) Abdominal pain/nausea/emesis Found to have cholecystitis Perc burt drain in place with relief of symptoms 2) NSTEMI Found to have multivessel CAD CT surgery evaluation Complex case with acute cholecystitis with percutaneous cholecystostomy tube Await repeat blood cultures, if negative then CABG 3) Afib New onset Started on Cardizem, heart rates controlled Eventual anti-coagulation 4) Bacteremia KELLY negative for vegetation, no signs of endocarditis 5) Discussed with Dr. Calvo Will hold off on Cscope due to multivessel CAD 6) Lovenox full dose due to MVCAD/NSTEMI and Afib since surgery will be put off for a week
[2018-03-31] MEDS: Morphine Sulfate Inj 2 MG/ML Vial IV.PUSH PRN ×2 (03:57→08:36)
[2018-03-31 07:39] LABS: Alkaline Phosphatase 141 U/L (45-117); Total Protein 6.4 g/dL (6.4-8.2)
[2018-03-31 07:41] LABS: Anion Gap 7 meq/L (5-15); Blood Urea Nitrogen 9 mg/dL (7-18); Carbon Dioxide 28.8 meq/L (21.0-32.0); Chloride 104 meq/L (98-107); Glomerular Filtration Rate Greater Than 89 mL/min (>89); Glucose,Random 89 mg/dL (74-106); Lipase 68 U/L (73-393); Potassium 4.1 meq/L (3.5-5.1); Sodium 140 meq/L (136-145)
[2018-03-31 07:42] LABS: Alanine Aminotransferase 31 U/L (12-78); Aspartate Aminotransferase 39 U/L (15-37)
[2018-03-31] MEDS: Senna/Docusate Sodium 8.6/50 MG Tablet PO SCH ×2 (08:39→20:07)
[2018-03-31] MEDS: Enoxaparin Inj 120 MG/0.8 ML Syringe SQ SCH ×2 (08:39→20:07)
[2018-03-31] MEDS: Magnesium Oxide 400 MG Tablet PO SCH ×2 (08:40→20:07)
[2018-03-31] MEDS: dilTIAZem 30 MG Tablet PO SCH ×4 (08:40→20:05)
[2018-03-31] MEDS: Insulin Detemir Inj 1,000 UNIT/10 ML Vial SQ SCH ×2 (08:40→20:08)
[2018-03-31] MEDS: Sodium Chloride 0.9% 2 ML Flush BID IV.FLUSH SCH ×2 (08:40→20:07)
[2018-03-31] MEDS: Insulin NovoLOG Aspart Correctional Sugar Inj SQ SCH ×4 (08:49→20:28)
--- NOTE | 2018-03-31 15:40 | P.PNIM ---
Subjective Interval history: The patient was still having some lower abdominal pain. He was resting in a chair. He had no other acute complaints. Discussed with nursing. Physical Exam Vital signs: Vital Signs 03/30/18 16:00 03/30/18 17:00 03/30/18 17:51 Temperature Pulse Rate 74 76 Respiratory Rate 18 Blood Pressure 106/65 Pulse Oximetry 98 95 03/30/18 18:00 03/30/18 19:00 03/30/18 20:00 Temperature 98.4 F Pulse Rate 70 77 74 Respiratory Rate 18 Blood Pressure 111/74 Pulse Oximetry 94 L 03/30/18 21:00 03/30/18 21:30 03/30/18 22:00 Temperature Pulse Rate 82 76 Respiratory Rate 18 Blood Pressure Pulse Oximetry 03/30/18 23:00 03/31/18 00:00 03/31/18 00:05 Temperature 98.3 F Pulse Rate 75 78 Respiratory Rate 18 20 Blood Pressure 113/66 Pulse Oximetry 93 L 03/31/18 01:00 03/31/18 02:00 03/31/18 03:00 Temperature Pulse Rate 78 76 74 Respiratory Rate Blood Pressure Pulse Oximetry 03/31/18 04:00 03/31/18 05:00 03/31/18 06:00 Temperature 98.3 F Pulse Rate 75 76 85 Respiratory Rate 18 Blood Pressure 113/68 Pulse Oximetry 95 03/31/18 07:00 03/31/18 08:00 03/31/18 09:00 Temperature 97.7 F Pulse Rate 71 78 78 Respiratory Rate 18 Blood Pressure 110/69 Pulse Oximetry 92 L 03/31/18 10:00 03/31/18 11:00 03/31/18 12:00 Temperature 97.8 F Pulse Rate 76 73 72 Respiratory Rate 18 Blood Pressure 106/69 Pulse Oximetry 94 L 03/31/18 13:00 03/31/18 14:00 Temperature Pulse Rate 74 80 Respiratory Rate Blood Pressure Pulse Oximetry Intake & Output 03/30/18 03/31/18 03/31/18 18:59 06:59 18:59 Intake Total 1140 / 1140 480 / 480 Output Total 1425 / 1425 1250 / 1250 Balance -285 / -285 -770 / -770 Weight 108.4 kg Intake: IV 200 / 200 Rocephin Inj 2,000 MG In NS Inj 200 / 200 100 ML @ 200 mls/hr IV.SIG Q24H [facility] Rx#:[id number] Oral 940 / 940 480 / 480 Output: Urine 1425 / 1425 1250 / 1250 Other: Date of Last Bowel Movement 03/29/18 03/30/18 03/30/18 # Bowel Movements 1 Narrative: GENERAL: Well-developed, not in acute distress. SKIN: Cool and dry, no rash. HEAD: Atraumatic. Normocephalic. No temporal or scalp tenderness. EYES: Pupils equal round and reactive. anicteric NECK: Trachea midline. Supple, nontender, no meningeal signs. CARDIOVASCULAR: Regular rate and rhythm. RESPIRATORY: Clear to auscultation bilaterally. GASTROINTESTINAL: Abdomen soft , cholecystostomy tube in place. MUSCULOSKELETAL: Extremities without clubbing, cyanosis. NEUROLOGICAL: Alert oriented 3. Nonfocal deficits. Results - Labs CBC & Chem 7: 03/30/18 05:23 03/31/18 05:24 Laboratory Results - last 24 hr 03/30/18 03/30/18 03/31/18 16:20 20:32 05:24 Sodium 140 Potassium 4.1 Chloride 104 Carbon Dioxide 28.8 Anion Gap 7 BUN 9 Creatinine 0.66 Estimated GFR Greater than 89 POC Glucose 148 H 193 H Random Glucose 89 Calcium 8.0 L Total Bilirubin 0.2 Direct Bilirubin 0.1 Indirect Bilirubin 0.1 AST 39 H ALT 31 Alkaline Phosphatase 141 H Total Protein 6.4 Albumin 2.0 L Lipase 68 L 03/31/18 03/31/18 08:43 13:12 Sodium Potassium Chloride Carbon Dioxide Anion Gap BUN Creatinine Estimated GFR POC Glucose 106 112 H Random Glucose Calcium Total Bilirubin Direct Bilirubin Indirect Bilirubin AST ALT Alkaline Phosphatase Total Protein Albumin Lipase - Procedures 03/22- cholecystostomy tube placement 03/23- cardiac cath Assessment and Plan - Assessment (1) Cholecystitis Code(s): K81.9 - Cholecystitis, unspecified Status: Acute - Plan Sepsis - E. coli and Klebsiella pneumonia on blood cultures -03/19 Acute cholecystitis - which is likely the source of the sepsis. S/P cholecystostomy tube drain- not a candidate for cholecystectomy at this time due to CAD Leukocytosis. White blood cell count elevated. - trending down -Repeat blood cultures from 03/20- no growth so far -continue with IV antibiotics- Ceftriaxone stop date 04/03- then we will repeat blood cultures on 04/04. -evaluated by GI and general surgery. -continue with pain control and antiemetics as needed. -continue PPI. -repeat LFTs stable. ACS, NSTEMI s/p cardiac cath with multivessel disease -CT surgery consult appreciated; plan for CABG when cleared by ID as above. -echo with EF 60% with no regional wall motion abnormalities -s/p KELLY with no vegetation -Dr. Carlin following. -ASA, Cardizem, Lipitor. -Cardiology following. DM II Relatively well controlled. -continue Levemir and sliding scale and adjust as needed. DVT prophylaxis with Lovenox
[2018-03-31] MEDS ORDERED: fentaNYL Citrate Inj 100 MCG/2 ML Ampul ONE (16:57)
--- NOTE | 2018-03-31 17:51 | P.PNCA ---
Subjective Interval history: No events overnight Working with PT Medications and Allergies Active Medications: Active Medications Acetaminophen (Tylenol) 650 mg PO Q4H PRN PRN Reason: Temp > 100.4 Last Admin: 03/27/18 09:04 Dose: 650 mg Al Hydroxide/Mg Hydroxide (Milk Of Magnesia Liq) 30 ml PO Q12H PRN PRN Reason: Mild Constipation Last Admin: 03/25/18 15:47 Dose: 30 ml Aspirin (Ecotrin) 81 mg PO DAILY [facility] Last Admin: 03/31/18 08:39 Dose: 81 mg Atorvastatin Calcium (Lipitor) 20 mg PO DAILY [facility] Last Admin: 03/31/18 08:39 Dose: 20 mg Bisacodyl (Dulcolax Supp) 10 mg RECTAL DAILY PRN PRN Reason: SEVERE CONSITIPATION Last Admin: 03/25/18 21:11 Dose: 10 mg Bisacodyl (Dulcolax Ec) 10 mg PO ONCE ONE Last Admin: 03/30/18 17:35 Dose: 10 mg Dextrose (D50w Vial) 50 ml IV.PUSH UNSCH PRN PRN Reason: PER HYPOGLYCEMIA PROTOCOL Diltiazem HCl (Cardizem) 30 mg PO QID [facility] Last Admin: 03/31/18 12:41 Dose: 30 mg Enoxaparin Sodium (Lovenox Inj) 120 mg SQ Q12HR [facility] Last Admin: 03/31/18 08:39 Dose: 120 mg Glucagon (Glucagon Inj) 1 mg OTHER PRN PRN PRN Reason: for Hypoglycemia Protocol Ceftriaxone Sodium 2,000 mg/ (Sodium Chloride) 100 mls @ 200 mls/hr IV.SIG Q24H [facility] Last Admin: 03/31/18 12:41 Dose: 200 mls/hr Insulin Aspart (Novolog Insulin Correctional Sugar Inj) 0 unit SQ ACHS [facility]; Protocol Last Admin: 03/31/18 13:13 Dose: Not Given Insulin Detemir (Levemir Inj) 5 unit SQ BID [facility] Last Admin: 03/31/18 08:40 Dose: 5 unit Lactulose (Lactulose Liq) 30 ml PO DAILY PRN PRN Reason: SEVERE CONSITIPATION Last Admin: 03/25/18 15:47 Dose: 30 ml Magnesium Oxide (Mag-Ox) 400 mg PO BID [facility] Last Admin: 03/31/18 08:40 Dose: 400 mg Metformin HCl (Glucophage) 1,000 mg PO BID [facility] Last Admin: 03/31/18 08:39 Dose: 1,000 mg Morphine Sulfate (Morphine Inj) 2 mg IV.PUSH Q4H PRN PRN Reason: BREAKTHROUGH PAIN Ondansetron HCl (Zofran Inj) 4 mg IV.PUSH Q6H PRN PRN Reason: NAUSEA OR VOMITING Last Admin: 03/31/18 12:43 Dose: 4 mg Oxycodone HCl (Roxicodone) 10 mg PO Q4H PRN PRN Reason: pain 6-10 Last Admin: 03/31/18 12:42 Dose: 10 mg Oxycodone HCl (Roxicodone) 5 mg PO Q4H PRN PRN Reason: pain 3-5 Pantoprazole Sodium (Protonix) 40 mg PO DAILY [facility] Last Admin: 03/31/18 08:39 Dose: 40 mg Potassium Chloride (K-Dur) 20 meq PO DAILY [facility] Last Admin: 03/31/18 08:39 Dose: 20 meq Senna/Docusate Sodium (Carlotta-Colace) 1 tab PO BID [facility] Last Admin: 03/31/18 08:39 Dose: 1 tab Sennosides (Senokot) 17.2 mg PO Q12H PRN PRN Reason: Moderate Constipation Last Admin: 03/30/18 05:24 Dose: 17.2 mg Sodium Chloride (Ns Flush) 2 ml IV.FLUSH BID [facility] Last Admin: 03/31/18 08:40 Dose: 2 ml Sodium Chloride (Ns Flush) 2 ml IV.FLUSH PRN PRN PRN Reason: FLUSH AFTER USING IV ACCESS Last Admin: 03/26/18 02:04 Dose: 2 ml Allergies Allergy/AdvReac Type Severity Reaction Status Date / Time No Known Allergies Allergy Verified 03/19/18 10:28 Home Medications Medication Instructions Recorded Confirmed Type atorvastatin 20 mg PO DAILY 03/19/18 03/19/18 History liraglutide [Victoza 2-Sonido] 0.6 mg SUBCUT DAILY 03/19/18 03/19/18 History metformin 1,000 mg PO BID 03/19/18 03/19/18 History omeprazole-sodium bicarbonate 1 cap PO DAILY 03/19/18 03/19/18 History pantoprazole 20 mg PO DAILY 03/19/18 03/19/18 History Physical Exam Vital signs: Vital Signs 03/30/18 18:00 03/30/18 19:00 03/30/18 20:00 Temperature 98.4 F Pulse Rate 70 77 74 Respiratory Rate 18 Blood Pressure 111/74 Pulse Oximetry 94 L 03/30/18 21:00 03/30/18 21:30 03/30/18 22:00 Temperature Pulse Rate 82 76 Respiratory Rate 18 Blood Pressure Pulse Oximetry 03/30/18 23:00 03/31/18 00:00 03/31/18 00:05 Temperature 98.3 F Pulse Rate 75 78 Respiratory Rate 18 20 Blood Pressure 113/66 Pulse Oximetry 93 L 03/31/18 01:00 03/31/18 02:00 03/31/18 03:00 Temperature Pulse Rate 78 76 74 Respiratory Rate Blood Pressure Pulse Oximetry 03/31/18 04:00 03/31/18 05:00 03/31/18 06:00 Temperature 98.3 F Pulse Rate 75 76 85 Respiratory Rate 18 Blood Pressure 113/68 Pulse Oximetry 95 03/31/18 07:00 03/31/18 08:00 03/31/18 09:00 Temperature 97.7 F Pulse Rate 71 78 78 Respiratory Rate 18 Blood Pressure 110/69 Pulse Oximetry 92 L 03/31/18 10:00 03/31/18 11:00 03/31/18 12:00 Temperature 97.8 F Pulse Rate 76 73 72 Respiratory Rate 18 Blood Pressure 106/69 Pulse Oximetry 94 L 03/31/18 13:00 03/31/18 14:00 03/31/18 15:00 Temperature Pulse Rate 74 80 76 Respiratory Rate Blood Pressure Pulse Oximetry 03/31/18 16:00 Temperature 97.7 F Pulse Rate 74 Respiratory Rate 18 Blood Pressure 113/65 Pulse Oximetry 92 L Intake & Output 03/30/18 03/31/18 03/31/18 18:59 06:59 18:59 Intake Total 1140 / 1140 480 / 480 Output Total 1425 / 1425 1250 / 1250 Balance -285 / -285 -770 / -770 Weight 108.4 kg Intake: IV 200 / 200 Rocephin Inj 2,000 MG In NS Inj 200 / 200 100 ML @ 200 mls/hr IV.SIG Q24H [facility] Rx#:[id number] Oral 940 / 940 480 / 480 Output: Urine 1425 / 1425 1250 / 1250 Other: Date of Last Bowel Movement 03/29/18 03/30/18 03/30/18 # Bowel Movements 1 Narrative: GENERAL: Well-developed, not in acute distress. SKIN: Cool and dry, no rash. HEAD: Atraumatic. Normocephalic. No temporal or scalp tenderness. EYES: Pupils equal round and reactive. anicteric NECK: Trachea midline. Supple, nontender, no meningeal signs. CARDIOVASCULAR: Regular rate and rhythm. RESPIRATORY: Clear to auscultation bilaterally. GASTROINTESTINAL: Abdomen soft , cholecystostomy tube in place. MUSCULOSKELETAL: Extremities without clubbing, cyanosis. NEUROLOGICAL: Alert oriented 3. Nonfocal deficits. Results 03/30/18 05:23 03/31/18 05:24 Cardiac Enzymes 03/31/18 Range/Units 05:24 AST 39 H (15-37) U/L CBC 03/30/18 Range/Units 05:23 WBC 14.1 H (4.0-11.0) th/mm3 RBC 3.82 L (4.50-5.90) mil/mm3 Hgb 10.7 L (13.0-17.0) gm/dL Hct 33.7 L (39.0-51.0) % Plt Count 305 (150-450) th/mm3 Comprehensive Metabolic Panel 03/30/18 03/31/18 Range/Units 05:23 05:24 Sodium 137 140 (136-145) meq/L Potassium 4.2 4.1 (3.5-5.1) meq/L Chloride 103 104 (98-107) meq/L Carbon Dioxide 26.9 28.8 (21.0-32.0) meq/L BUN 9 9 (7-18) mg/dL Creatinine 0.73 0.66 (0.60-1.30) mg/dL Calcium 7.9 L 8.0 L (8.5-10.1) mg/dL Direct Bilirubin 0.1 (0.0-0.2) mg/dL Indirect Bilirubin 0.1 (0.0-0.8) mg/dL AST 39 H (15-37) U/L ALT 31 (12-78) U/L Alkaline Phosphatase 141 H (45-117) U/L Total Protein 6.4 (6.4-8.2) g/dL Albumin 2.0 L (3.4-5.0) g/dL Intake and Output 03/31/18 03/31/18 03/31/18 06:59 14:59 22:59 Intake Total 480 / 480 Output Total 1250 / 1250 Balance -770 / -770 Intake: Oral 480 / 480 Output: Urine 1250 / 1250 Other: Date of Last Bowel Movement 03/30/18 03/30/18 03/30/18 # Bowel Movements 1 Weight 108.4 kg Assessment and Plan - Assessment (1) NSTEMI (non-ST elevated myocardial infarction) Code(s): I21.4 - Non-ST elevation (NSTEMI) myocardial infarction Status: Acute (2) Afib Code(s): I48.91 - Unspecified atrial fibrillation Status: Acute (3) SIRS (systemic inflammatory response syndrome) Code(s): R65.10 - Systemic inflammatory response syndrome (SIRS) of non- infectious origin without acute organ dysfunction Status: Acute (4) Intractable abdominal pain Code(s): R10.9 - Unspecified abdominal pain Status: Acute - Plan 1) Abdominal pain/nausea/emesis Found to have cholecystitis Perc burt drain in place with relief of symptoms 2) NSTEMI Found to have multivessel CAD CT surgery evaluation Complex case with acute cholecystitis with percutaneous cholecystostomy tube Await repeat blood cultures, if negative then CABG 3) Afib New onset Started on Cardizem, heart rates controlled Eventual anti-coagulation 4) Bacteremia KELLY negative for vegetation, no signs of endocarditis 5) Discussed with Dr. Calvo Will hold off on Cscope due to multivessel CAD 6) Lovenox full dose due to MVCAD/NSTEMI and Afib since surgery will be put off for a week 7) If concerns over the weekend, please call the service for covering physician
--- NOTE | 2018-03-31 18:32 | IR ---
EXAM DATE: 03/31/2018 6:04 PM EST AGE/SEX: 67 years / Male INDICATIONS: Patient with a history of cholecystitis. CLINICAL DATA: This is the patient's subsequent encounter. Patient reports that signs and symptoms h ave been present for 2 weeks and indicates a pain score of 6/10. MEDICAL/SURGICAL HISTORY: . Diabetes GERD Hypercholesteremia . Gastric bypass COMPARISON: No prior exams available for comparison. FLUORO TIME (min): 3.5 IMAGE SERIES: 2 MEDICATION(S): 1mg lorazepam (Ativan) PO 75mcg fentanyl (Sublimaze) IV DEVICE(S): 8 Mont[place]grin Skater catheter . . PROCEDURE: 1. Ultrasound guided puncture of the gallbladder. 2. Percutaneous cholangiogram. 3. Percutaneous cholecystostomy tube placement. 4. Conscious sedation with continuous EKG and oximetry monitoring. The risks, benefits and alternatives to the procedure were explained and verbal and written consent w as obtained. The site was prepped in sterile fashion. Full sterile technique was used, including ca p, mask, sterile gloves and gown and a large sterile sheet. Hand hygiene and 2% chlorhexidine and/or betadine/alcohol prep was utilized per protocol for cutaneous antisepsis. Sterile gel and sterile p robe cover were utilized for ultrasound guidance. The skin and subcutaneous tissues were infiltrated with local anesthetic solution. The patient's existing cholecystostomy tube was inspected and the hub was noted to be cracked. Gentle tube injection was performed, however I could not verify positioning within the lumen of the gallbla dder. The tube was removed intact after placement of a new cholecystostomy tube at an adjacent site a s described below. With ultrasound and fluoroscopic guidance the gallbladder was punctured with a micropuncture set and a 4 Montenegrin dilator was placed. Injection of positive contrast demonstrates position within the gallb ladder. A 0.035 guidewire was placed within the gallbladder lumen and dilatation was performed to ac cept the prescribed catheter. Conscious sedation was performed with the prescribed dosages and duration as above in the presence of an independent trained radiology nurse to assist in the monitoring of the patient. EKG and oximetry remained stable throughout the procedure. The patient tolerated the procedure well and there were n o complications. The patient was sent to post anesthesia recovery in stable condition. CONCLUSION: Uncomplicated percutaneous cholecystostomy as above. Electronically signed by: Elías Pickett MD 03/31/2018 6:31 PM EST
[2018-04-01] MEDS: Magnesium Oxide 400 MG Tablet PO SCH ×2 (08:21→20:29)
[2018-04-01] MEDS: Senna/Docusate Sodium 8.6/50 MG Tablet PO SCH ×2 (08:21→20:32)
[2018-04-01] MEDS: dilTIAZem 30 MG Tablet PO SCH ×4 (08:21→20:29)
[2018-04-01] MEDS: Insulin Detemir Inj 1,000 UNIT/10 ML Vial SQ SCH ×2 (08:22→20:30)
[2018-04-01] MEDS: Insulin NovoLOG Aspart Correctional Sugar Inj SQ SCH ×4 (08:24→20:36)
[2018-04-01] MEDS: Enoxaparin Inj 120 MG/0.8 ML Syringe SQ SCH ×2 (08:24→20:28)
[2018-04-01] MEDS: Sodium Chloride 0.9% 2 ML Flush BID IV.FLUSH SCH ×2 (08:25→20:30)
--- NOTE | 2018-04-01 13:08 | P.PNIM ---
Subjective Interval history: The patient was sitting up in a chair. His family was at the bedside. The patient denied any acute complaints. He was tolerating a diet. He said he had some loose bowel movements earlier today. Physical Exam Vital signs: Vital Signs 03/31/18 14:00 03/31/18 15:00 03/31/18 16:00 Temperature 97.7 F Pulse Rate 80 76 74 Respiratory Rate 18 Blood Pressure 113/65 Pulse Oximetry 92 L 03/31/18 17:00 03/31/18 18:00 03/31/18 19:00 Temperature Pulse Rate 82 74 75 Respiratory Rate Blood Pressure Pulse Oximetry 03/31/18 20:00 03/31/18 21:00 03/31/18 22:00 Temperature 98.3 F Pulse Rate 76 73 74 Respiratory Rate 18 Blood Pressure 121/69 Pulse Oximetry 94 L 03/31/18 23:00 04/01/18 00:00 04/01/18 01:00 Temperature 98.2 F Pulse Rate 70 71 68 Respiratory Rate 18 Blood Pressure 113/63 Pulse Oximetry 94 L 04/01/18 02:00 04/01/18 03:00 04/01/18 03:54 Temperature 98 F Pulse Rate 78 79 85 Respiratory Rate 18 Blood Pressure 110/64 Pulse Oximetry 95 04/01/18 04:00 04/01/18 05:00 04/01/18 06:00 Temperature Pulse Rate 85 82 92 H Respiratory Rate Blood Pressure Pulse Oximetry 04/01/18 07:00 04/01/18 08:00 04/01/18 12:01 Temperature 97.9 F 98 F Pulse Rate 80 95 H 69 Respiratory Rate 18 18 Blood Pressure 136/66 115/67 Pulse Oximetry 93 L 93 L Intake & Output 03/31/18 04/01/18 04/01/18 18:59 06:59 18:59 Intake Total 580 / 580 720 / 720 Output Total 485 / 485 700 / 700 Balance 95 / 95 20 20 Weight 110.8 kg Intake: IV 100 / 100 Rocephin Inj 2,000 MG In NS Inj 100 / 100 100 ML @ 200 mls/hr IV.SIG Q24H [facility] Rx#:[id number] Oral 480 / 480 720 / 720 Output: Urine 475 / 475 700 / 700 Wound Drainage Right Lower Abdomen Other: # Voids 3 Date of Last Bowel Movement 03/30/18 03/31/18 03/31/18 # Bowel Movements 2 Narrative: GENERAL: Well-developed, not in acute distress. SKIN: Cool and dry, no rash. HEAD: Atraumatic. Normocephalic. No temporal or scalp tenderness. EYES: Pupils equal round and reactive. anicteric. NECK: Trachea midline. Supple, nontender, no meningeal signs. CARDIOVASCULAR: Regular rate and rhythm. RESPIRATORY: Clear to auscultation bilaterally. GASTROINTESTINAL: Abdomen soft, cholecystostomy tube in place. MUSCULOSKELETAL: Extremities without clubbing, cyanosis. NEUROLOGICAL: Alert oriented 3. Nonfocal deficits. Results - Labs CBC & Chem 7: 03/30/18 05:23 03/31/18 05:24 Laboratory Results - last 24 hr 03/31/18 03/31/18 03/31/18 13:12 18:18 20:19 POC Glucose 112 H 143 H 205 H 04/01/18 04/01/18 08:24 12:59 POC Glucose 131 H 148 H - Imaging Impressions Percutaneous Cholangiogram 03/31/18 00:00 CONCLUSION: Uncomplicated percutaneous cholecystostomy as above. - Procedures 03/22- cholecystostomy tube placement 03/23- cardiac cath Assessment and Plan - Assessment (1) Cholecystitis Code(s): K81.9 - Cholecystitis, unspecified Status: Acute - Plan Sepsis/ Acute cholecystitis E. coli and Klebsiella pneumonia on blood cultures -03/19. S/p cholecystostomy tube drain- not a candidate for cholecystectomy at this time due to CAD and need for heart surgery. Repeat blood cultures from 03/20- no growth. GI and surgery consults appreciated. -continue with IV antibiotics- Ceftriaxone stop date 04/03- then we will repeat blood cultures on 04/04. -continue with pain control and antiemetics as needed. -continue PPI. -continue cholecystostomy drain care as directed. NSTEMI/Afib s/p cardiac cath with multivessel disease. Echo with EF 60% with no regional wall motion abnormalities. S/p KELLY with no vegetations. -CT surgery consult appreciated; plan for CABG when cleared by ID as above. -ASA, Cardizem, Lipitor. -Cardiology following. -on therapeutic Lovenox. DM II Well controlled. -continue Levemir and sliding scale and adjust as needed. DVT prophylaxis with Lovenox
--- NOTE | 2018-04-01 16:15 | P.PN ---
Subjective Interval history: Eating OK Minimal pain RUQ Physical Exam Vital signs: Vital Signs 03/31/18 17:00 03/31/18 18:00 03/31/18 19:00 Temperature Pulse Rate 82 74 75 Respiratory Rate Blood Pressure Pulse Oximetry 03/31/18 20:00 03/31/18 21:00 03/31/18 22:00 Temperature 98.3 F Pulse Rate 76 73 74 Respiratory Rate 18 Blood Pressure 121/69 Pulse Oximetry 94 L 03/31/18 23:00 04/01/18 00:00 04/01/18 01:00 Temperature 98.2 F Pulse Rate 70 71 68 Respiratory Rate 18 Blood Pressure 113/63 Pulse Oximetry 94 L 04/01/18 02:00 04/01/18 03:00 04/01/18 03:54 Temperature 98 F Pulse Rate 78 79 85 Respiratory Rate 18 Blood Pressure 110/64 Pulse Oximetry 95 04/01/18 04:00 04/01/18 05:00 04/01/18 06:00 Temperature Pulse Rate 85 82 92 H Respiratory Rate Blood Pressure Pulse Oximetry 04/01/18 07:00 04/01/18 08:00 04/01/18 09:00 Temperature 97.9 F Pulse Rate 80 84 78 Respiratory Rate 18 Blood Pressure 136/66 Pulse Oximetry 93 L 04/01/18 10:00 04/01/18 11:00 04/01/18 12:00 Temperature Pulse Rate 74 79 76 Respiratory Rate Blood Pressure Pulse Oximetry 04/01/18 12:01 04/01/18 13:00 04/01/18 14:00 Temperature 98 F Pulse Rate 69 92 H 91 H Respiratory Rate 18 Blood Pressure 115/67 Pulse Oximetry 93 L 04/01/18 15:00 Temperature Pulse Rate 82 Respiratory Rate Blood Pressure Pulse Oximetry Intake & Output 03/31/18 04/01/18 04/01/18 18:59 06:59 18:59 Intake Total 580 / 580 720 / 720 100 / 100 Output Total 485 / 485 700 / 700 Balance 95 / 95 20 / 20 100 / 100 Weight 110.8 kg Intake: IV 100 / 100 100 / 100 Rocephin Inj 2,000 MG In NS Inj 100 / 100 100 / 100 100 ML @ 200 mls/hr IV.SIG Q24H [facility] Rx#:[id number] Oral 480 / 480 720 / 720 Output: Urine 475 / 475 700 / 700 Wound Drainage Right Lower Abdomen Other: # Voids 3 Date of Last Bowel Movement 03/30/18 03/31/18 03/31/18 # Bowel Movements 2 Results - Labs CBC & Chem 7: 03/30/18 05:23 03/31/18 05:24 Laboratory Results - last 24 hr 03/31/18 03/31/18 04/01/18 18:18 20:19 08:24 POC Glucose 143 H 205 H 131 H 04/01/18 12:59 POC Glucose 148 H - Imaging Impressions Percutaneous Cholangiogram 03/31/18 00:00 CONCLUSION: Uncomplicated percutaneous cholecystostomy as above. - Procedures 03/22- cholecystostomy tube placement 03/23- cardiac cath Assessment and Plan - Assessment (1) Intractable abdominal pain Code(s): R10.9 - Unspecified abdominal pain Status: Acute (2) NSTEMI (non-ST elevated myocardial infarction) Code(s): I21.4 - Non-ST elevation (NSTEMI) myocardial infarction Status: Acute (3) Afib Code(s): I48.91 - Unspecified atrial fibrillation Status: Acute (4) Cholecystitis Code(s): K81.9 - Cholecystitis, unspecified Status: Acute Plan: Still appears somewhat ill, but better than a few days ago; will await cardiothoracic plans and plan surgery about 1 month postop. I would hold off on any surgery until this has been completed to maximize patient's chances for an uneventful surgery. He can have the cholecystostomy tube in for 3-6 weeks.
[2018-04-02] MEDS: Insulin NovoLOG Aspart Correctional Sugar Inj SQ SCH ×4 (08:51→20:46)
[2018-04-02] MEDS: Magnesium Oxide 400 MG Tablet PO SCH ×2 (08:52→20:44)
[2018-04-02] MEDS: Insulin Detemir Inj 1,000 UNIT/10 ML Vial SQ SCH ×2 (08:52→20:43)
[2018-04-02] MEDS: dilTIAZem 30 MG Tablet PO SCH ×4 (08:52→20:42)
[2018-04-02] MEDS: Enoxaparin Inj 120 MG/0.8 ML Syringe SQ SCH ×2 (08:52→20:43)
[2018-04-02] MEDS: Senna/Docusate Sodium 8.6/50 MG Tablet PO SCH ×2 (08:53→20:42)
[2018-04-02] MEDS: Sodium Chloride 0.9% 2 ML Flush BID IV.FLUSH SCH ×2 (08:53→20:44)
--- NOTE | 2018-04-02 13:55 | P.PNIM ---
Subjective Interval history: The patient was vomiting. He said it hit him all at once. He said he just finished eating. He denied any abdominal pain. He had no other acute complaints. Discussed with nursing. Physical Exam Vital signs: Vital Signs 04/01/18 14:00 04/01/18 15:00 04/01/18 16:00 Temperature 98.1 F Pulse Rate 91 H 82 76 Respiratory Rate 18 Blood Pressure 104/63 Pulse Oximetry 93 L 04/01/18 17:00 04/01/18 18:00 04/01/18 19:00 Temperature Pulse Rate 74 94 H 88 Respiratory Rate Blood Pressure Pulse Oximetry 04/01/18 20:00 04/01/18 21:00 04/01/18 22:00 Temperature 97.9 F Pulse Rate 75 81 82 Respiratory Rate 18 Blood Pressure 121/65 Pulse Oximetry 94 L 04/01/18 23:00 04/02/18 00:00 04/02/18 01:00 Temperature 98.2 F Pulse Rate 80 77 76 Respiratory Rate 18 Blood Pressure 127/68 Pulse Oximetry 95 04/02/18 02:00 04/02/18 03:00 04/02/18 03:42 Temperature 98 F Pulse Rate 70 72 69 Respiratory Rate 18 Blood Pressure 117/71 Pulse Oximetry 95 04/02/18 04:00 04/02/18 05:00 04/02/18 06:00 Temperature Pulse Rate 75 70 71 Respiratory Rate Blood Pressure Pulse Oximetry 04/02/18 07:00 04/02/18 08:00 04/02/18 08:15 Temperature 98.2 F Pulse Rate 83 83 Respiratory Rate 16 Blood Pressure 110/64 Pulse Oximetry 94 L 93 L 04/02/18 09:00 04/02/18 10:00 04/02/18 11:00 Temperature Pulse Rate 73 73 72 Respiratory Rate Blood Pressure Pulse Oximetry 04/02/18 12:00 Temperature 98 F Pulse Rate 69 Respiratory Rate 17 Blood Pressure 113/62 Pulse Oximetry 92 L Intake & Output 04/01/18 04/02/18 04/02/18 18:59 06:59 18:59 Intake Total 700 / 700 480 / 480 100 / 100 Output Total 525 / 525 800 / 800 Balance 175 / 175 -320 / -320 100 / 100 Weight 110.7 kg Intake: IV 100 / 100 100 / 100 Rocephin Inj 2,000 MG In NS Inj 100 / 100 100 / 100 100 ML @ 200 mls/hr IV.SIG Q24H [facility] Rx#:[id number] Oral 600 / 600 480 / 480 Output: Urine 525 / 525 800 / 800 Other: # Voids 4 Date of Last Bowel Movement 04/01/18 # Bowel Movements 0 Narrative: GENERAL: Uncomfortable from retching. SKIN: Cool and dry, no rash. HEAD: Atraumatic. Normocephalic. No temporal or scalp tenderness. EYES: Pupils equal round and reactive. anicteric. NECK: Trachea midline. Supple, nontender, no meningeal signs. CARDIOVASCULAR: Regular rate and rhythm. RESPIRATORY: Clear to auscultation bilaterally. GASTROINTESTINAL: Abdomen soft, cholecystostomy tube in place. MUSCULOSKELETAL: Extremities without clubbing, cyanosis. NEUROLOGICAL: Alert oriented 3. Nonfocal deficits. Results - Labs CBC & Chem 7: 03/30/18 05:23 03/31/18 05:24 Laboratory Results - last 24 hr 04/01/18 04/01/18 04/02/18 17:29 20:34 08:45 POC Glucose 165 H 168 H 206 H 04/02/18 12:22 POC Glucose 141 H - Procedures 03/22- cholecystostomy tube placement 03/23- cardiac cath Assessment and Plan - Assessment (1) Cholecystitis Code(s): K81.9 - Cholecystitis, unspecified Status: Acute - Plan Sepsis/ Acute cholecystitis E. coli and Klebsiella pneumonia on blood cultures -03/19. S/p cholecystostomy tube drain- not a candidate for cholecystectomy at this time due to CAD and need for heart surgery. Repeat blood cultures from 03/20- no growth. GI and surgery consults appreciated. -continue with IV antibiotics- Ceftriaxone stop date 04/03- then we will repeat blood cultures on 04/04. -continue with pain control as needed. -continue cholecystostomy drain care as directed. NSTEMI/Afib s/p cardiac cath with multivessel disease. Echo with EF 60% with no regional wall motion abnormalities. S/p KELLY with no vegetations. -CT surgery consult appreciated; plan for CABG when cleared by ID as above. -ASA, Cardizem, Lipitor. -Cardiology following. -on therapeutic Lovenox. N/V S/t cholecystitis. -antiemetics as needed. -continue PPI. -low residue, soft diet for now. DM II Well controlled. -continue Levemir and sliding scale and adjust as needed. DVT prophylaxis with Lovenox
[2018-04-02 22:16] LABS: Bilirubin,Urine Negative (Negative); Clarity,Urine Clear (Clear); Color,Urine Yellow (Yellw/Straw); Glucose,Urine (UA) Negative (Negative); Leukocyte Esterase,Urine Negative (Negative); Nitrite,Urine Negative (Negative); Specific Gravity,Urine 1.017 (1.002-1.035); Squamous Epithelial Cell,Urine 6 /hpf (0-5)
[2018-04-03] MEDS: Morphine Sulfate Inj 2 MG/ML Vial IV.PUSH PRN ×2 (02:01→11:00)
[2018-04-03 06:56] LABS: Baso # (Auto) 0.1 th/mm3 (0.0-0.2); Baso % (Auto) 0.5 % (0.0-2.0); Eos % (Auto) 0.3 % (0.0-4.0); Lymph # (Auto) 1.5 th/mm3 (1.0-4.8); Lymph % (Auto) 13.4 % (9.0-44.0); Mean Corpuscular HGB Conc 32.3 % (32.0-36.0); Mean Corpuscular Hemoglobin 28.5 pg (27.0-34.0); Mean Corpuscular Volume 88.3 fL (80.0-100.0); Mono # (Auto) 0.8 th/mm3 (0.0-0.9); Mono % (Auto) 7.1 % (0.0-8.0); Neut # (Auto) 8.6 th/mm3 (1.8-7.7); Neut % (Auto) 78.7 % (16.0-70.0); Platelet Count 351 th/mm3 (150-450); Red Blood Count 3.51 mil/mm3 (4.50-5.90); White Blood Count 10.9 th/mm3 (4.0-11.0)
[2018-04-03 07:01] LABS: Anion Gap 7 meq/L (5-15); Blood Urea Nitrogen 9 mg/dL (7-18); Calcium 7.9 mg/dL (8.5-10.1); Carbon Dioxide 28.2 meq/L (21.0-32.0); Chloride 101 meq/L (98-107); Glomerular Filtration Rate Greater Than 89 mL/min (>89); Glucose,Random 108 mg/dL (74-106); Magnesium 1.8 mg/dL (1.5-2.5); Potassium 4.3 meq/L (3.5-5.1); Sodium 136 meq/L (136-145)
--- NOTE | 2018-04-03 10:31 | P.PNID ---
Subjective Remarks: Mr. Bridges is a 67-year-old male patient who presented to the emergency room on March 19, 2018. Patient initially reported nausea vomiting as well as abdominal pain on admission. Of note patient's past medical history significant for gastric bypass surgery many years back. Patient also has a history of type 2 diabetes, GERD, hyperlipidemia as well as morbid obesity. Condition he reports chronic lower back pain as well as arthritis. Patient reports that his abdominal pain started in the left lower quadrant associated with nausea and vomiting of clear emesis. He reports that he was still vomiting until yesterday and vomiting has now resolved. He continues to have abdominal pain. Patient denied any fever chills or night sweats prior to admission. Patient reports that his last EGD and colonoscopy was in 2006 prior to gastric bypass surgery. Patient reports he has lost a total of 257 pounds since he has had surgery. Patient was asked to have a repeat colonoscopy in 10 years if there were no abnormal findings. He denies any use of alcohol or tobacco products recently but has used in the past. He reports that his mother had gastric cancer in his brother also had a gastric cancer at the age of 38 years. He denies any hematemesis or any black tarry stools or fresh blood in stool. Patient reports that he has a bowel movement every 1-2 days. He denies any history of constipation and diarrhea. A CT of the abdomen pelvis done on admission reveals thickening of the distal descending colon and there is a concern for colonic mass and therefore GI has been consulted. Due to elevated troponins cardiology has also been called and there is a plan for KELLY and possibly a cardiac cath in the future. Blood cultures drawn and admission are positive for gram-negative rods and infectious diseases consulted for evaluation and management of the same. Interim course: GB as source and IR cholecystostomy. STEMI plan for CABG once ID clears. Notes reviewed. Overnight events reviewed with RN. Patient appears uncomfortable today. Reports Nausea, vomiting, abdominal pain and distention. Passing gas. Antibiotics: cefepime IV Flagyl IV Lines: Lines ok Past Medical History: reviewed Allergies/Adverse Reactions: Allergies No Known Allergies Allergy (Verified 03/19/18 10:28) Objective Vital Signs 04/02/18 11:00 04/02/18 12:00 04/02/18 13:00 Temperature 98 F Pulse Rate 72 69 75 Respiratory Rate 17 Blood Pressure 113/62 Pulse Oximetry 92 L 11/18/18 14:00 04/02/18 15:00 04/02/18 16:00 Temperature 98 F Pulse Rate 76 75 81 Respiratory Rate 17 Blood Pressure 109/63 Pulse Oximetry 93 L 04/02/18 16:59 04/02/18 17:53 04/02/18 19:00 Temperature Pulse Rate 72 73 75 Respiratory Rate Blood Pressure Pulse Oximetry 04/02/18 20:00 04/02/18 21:00 04/02/18 22:00 Temperature 99 F Pulse Rate 78 73 76 Respiratory Rate 20 Blood Pressure 111/65 Pulse Oximetry 94 L 04/02/18 23:00 04/03/18 00:00 04/03/18 01:00 Temperature 98.6 F Pulse Rate 76 71 74 Respiratory Rate 18 Blood Pressure 114/63 Pulse Oximetry 95 04/03/18 02:00 04/03/18 03:00 04/03/18 04:00 Temperature 98.2 F Pulse Rate 70 66 69 Respiratory Rate 18 Blood Pressure 101/57 L Pulse Oximetry 95 04/03/18 05:00 04/03/18 06:00 Temperature Pulse Rate 72 71 Respiratory Rate Blood Pressure Pulse Oximetry Intake & Output 04/02/18 04/03/18 04/03/18 18:59 06:59 18:59 Intake Total 1060 / 1060 480 / 480 Output Total 450 / 450 700 / 700 Balance 610 / 610 -220 / -220 Weight 108 kg Intake: IV 100 / 100 Rocephin Inj 2,000 MG In NS Inj 100 / 100 100 ML @ 200 mls/hr IV.SIG Q24H [facility] Rx#:[id number] Oral 960 / 960 480 / 480 Output: Urine 450 / 450 700 / 700 Other: Date of Last Bowel Movement 04/02/18 # Bowel Movements 1 04/02/18 20:10 Clean Catch Urine Urine Culture - Pending Lab - Hematology Results 04/03/18 05:09 WBC 10.9 RBC 3.51 L Hgb 10.0 L Hct 31.0 L MCV 88.3 MCH 28.5 MCHC 32.3 RDW 15.0 Plt Count 351 MPV 9.0 Neut % (Auto) 78.7 H Lymph % (Auto) 13.4 [place] % (Auto) 7.1 Eos % (Auto) 0.3 Baso % (Auto) 0.5 Neut # (Auto) 8.6 H Lymph # (Auto) 1.5 [place] # (Auto) 0.8 Eos # (Auto) 0.0 Baso # (Auto) 0.1 WBC Differential . Differential Comment Auto diff final Lab - Chemistry Results 04/01/18 04/01/18 04/01/18 12:59 17:29 20:34 Sodium Potassium Chloride Carbon Dioxide Anion Gap BUN Creatinine Estimated GFR POC Glucose 148 H 165 H 168 H Random Glucose Calcium Magnesium 04/02/18 04/02/18 04/02/18 08:45 12:22 17:10 Sodium Potassium Chloride Carbon Dioxide Anion Gap BUN Creatinine Estimated GFR POC Glucose 206 H 141 H 155 H Random Glucose Calcium Magnesium 04/02/18 04/03/18 04/03/18 20:45 05:09 09:27 Sodium 136 Potassium 4.3 Chloride 101 Carbon Dioxide 28.2 Anion Gap 7 BUN 9 Creatinine 0.59 L Estimated GFR Greater than 89 POC Glucose 107 202 H Random Glucose 108 H Calcium 7.9 L Magnesium 1.8 Imaging: ITS Impressions Abdomen/Pelvis CT 03/19/18 10:38 CONCLUSION: 1. Short segmental concentric wall thickening is identified in the distal descending colon. Colon malignancy needs to be excluded. 2. Calcified gallstones with moderate distention of the gallbladder. 3. No other significant abnormality. Chest CTA 03/19/18 13:37 CONCLUSION: 1. No evidence of acute pulmonary embolism. 2. Mild subpleural airspace disease and reticulations which may be chronic. 3. No evidence of segmental or lobar lung consolidation. Abdomen/Pelvis CTA 03/22/18 00:00 CONCLUSION: 1. Prominent gallbladder distention and surrounding inflammatory changes consistent with cholecystitis 2. No acute vascular findings in the abdomen or pelvis. Carotid Doppler Study 03/25/18 12:49 CONCLUSION: 1. Right Internal Carotid Artery: No significant plaque or narrowing. 2. Left Internal Carotid Artery: No significant plaque or narrowing. Lower Extremity Ultrasound 03/25/18 12:49 CONCLUSION: Bilateral greater saphenous vein measurements as above. No acute abnormalities are demonstrated. Venous Doppler Study 03/25/18 12:49 CONCLUSION: Negative study. No venous thrombosis of either lower extremity. Chest X-Ray 03/26/18 00:00 CONCLUSION: Mild basilar airspace disease with trace pleural fluid. No pneumothorax. Percutaneous Cholangiogram 03/31/18 00:00 CONCLUSION: Uncomplicated percutaneous cholecystostomy as above. Physical Exam: GENERAL: Obese, well-developed, not in acute distress SKIN: Cool and dry, no generalized rash HEAD: Atraumatic. Normocephalic. No temporal or scalp tenderness. EYES: Pupils equal round and reactive. Scleral icterus. No injection or drainage. No petechia ENT: Nothing abnormal detected NECK: Trachea midline. Supple, nontender, no meningeal signs. CARDIOVASCULAR: HS audible. RESPIRATORY: Clear to auscultation bilaterally. GASTROINTESTINAL: Abdomen soft , diffuse tenderness all over the abdomen. Cholecystostomy tube in place with dark fluid in place. MUSCULOSKELETAL: Extremities without clubbing, cyanosis or edema. NEUROLOGICAL: Alert oriented 3. Nonfocal. Psych cooperative IV line sites ok. Assessment and Plan - Plan Sepsis present on admission Gram-negative bacteremia E. coli and Klebsiella pneumonia isolated. Acute cholecystitis s/p Cholecystostomy tube placement. Abnormal CT scan indicating cholecystitis which is likely the source of the sepsis. Leukocytosis. White blood cell count elevated. Non-ST elevation MD likely secondary to sepsis cardiology on board -KELLY negative. Recommendations: Discontinue Ceftriaxone IV may be contributing to nausea. Also will get KUB abdomen to assess if this is ileus. Will repeat blood cultures today. If these repeat bcx are negative at 48 hrs and patient clinically doing well will clear him for CABG surgery. Follow clinical course Discussed with patient. CTS NEVAEH [place] and .
[2018-04-03] MEDS: Insulin NovoLOG Aspart Correctional Sugar Inj SQ SCH ×3 (10:53→18:02)
[2018-04-03] MEDS: dilTIAZem 30 MG Tablet PO SCH ×4 (10:54→23:52)
[2018-04-03] MEDS: Senna/Docusate Sodium 8.6/50 MG Tablet PO SCH ×2 (10:54→23:54)
[2018-04-03] MEDS: Enoxaparin Inj 120 MG/0.8 ML Syringe SQ SCH ×2 (10:55→23:53)
[2018-04-03] MEDS: Sodium Chloride 0.9% 2 ML Flush BID IV.FLUSH SCH (10:55)
[2018-04-03] MEDS: Magnesium Oxide 400 MG Tablet PO SCH ×2 (11:01→23:53)
[2018-04-03] MEDS: Insulin Detemir Inj 1,000 UNIT/10 ML Vial SQ SCH ×2 (11:02→23:53)
--- NOTE | 2018-04-03 13:03 | P.PN ---
Subjective Interval history: Reporting abdominal pain today; no emesis. Had a BM yesterday Physical Exam Vital signs: Vital Signs 04/02/18 14:00 04/02/18 15:00 04/02/18 16:00 Temperature 98 F Pulse Rate 76 75 81 Respiratory Rate 17 Blood Pressure 109/63 Pulse Oximetry 93 L 04/02/18 16:59 04/02/18 17:53 04/02/18 19:00 Temperature Pulse Rate 72 73 75 Respiratory Rate Blood Pressure Pulse Oximetry 04/02/18 20:00 04/02/18 21:00 04/02/18 22:00 Temperature 99 F Pulse Rate 78 73 76 Respiratory Rate 20 Blood Pressure 111/65 Pulse Oximetry 94 L 04/02/18 23:00 04/03/18 00:00 04/03/18 01:00 Temperature 98.6 F Pulse Rate 76 71 74 Respiratory Rate 18 Blood Pressure 114/63 Pulse Oximetry 95 04/03/18 02:00 04/03/18 03:00 04/03/18 04:00 Temperature 98.2 F Pulse Rate 70 66 69 Respiratory Rate 18 Blood Pressure 101/57 L Pulse Oximetry 95 04/03/18 05:00 04/03/18 06:00 Temperature Pulse Rate 72 71 Respiratory Rate Blood Pressure Pulse Oximetry Intake & Output 04/02/18 04/03/18 04/03/18 18:59 06:59 18:59 Intake Total 1060 / 1060 480 / 480 Output Total 450 / 450 700 / 700 Balance 610 / 610 -220 / -220 Weight 108 kg Intake: IV 100 / 100 Rocephin Inj 2,000 MG In NS Inj 100 / 100 100 ML @ 200 mls/hr IV.SIG Q24H [facility] Rx#:[id number] Oral 960 / 960 480 / 480 Output: Urine 450 / 450 700 / 700 Other: Date of Last Bowel Movement 04/02/18 # Bowel Movements 1 - Constitutional mild distress - Routine Abdominal Exam Present: soft Comments: Minimal guarding; no rebound Results - Labs CBC & Chem 7: 04/03/18 05:09 04/03/18 05:09 Laboratory Results - last 24 hr 04/02/18 04/02/18 04/02/18 17:10 20:10 20:45 WBC RBC Hgb Hct MCV MCH MCHC RDW Plt Count MPV Neut % (Auto) Lymph % (Auto) [place] % (Auto) Eos % (Auto) Baso % (Auto) Neut # (Auto) Lymph # (Auto) [place] # (Auto) Eos # (Auto) Baso # (Auto) WBC Differential Differential Comment Sodium Potassium Chloride Carbon Dioxide Anion Gap BUN Creatinine Estimated GFR POC Glucose 155 H 107 Random Glucose Calcium Magnesium Urine Color Yellow Urine Clarity Clear Urine pH 7.0 Ur Specific [place] 1.017 Urine Protein 100 H Urine Glucose (UA) Negative Urine Ketones Negative Urine Occult Blood Large H Urine Nitrate Negative Urine Bilirubin Negative Urine Urobilinogen Less than 2 Ur Leukocyte Esterase Negative Urine RBC Urine WBC 83 H Urine WBC Clumps Few H Ur Squamous Epith Cells 6 Micro UA Comment Culture indicated Ur Microscopic Review Not Reportable Urine Culture Comments Culture indicated 04/03/18 04/03/18 04/03/18 05:09 05:09 09:27 WBC 10.9 RBC 3.51 L Hgb 10.0 L Hct 31.0 L MCV 88.3 MCH 28.5 MCHC 32.3 RDW 15.0 Plt Count 351 MPV 9.0 Neut % (Auto) 78.7 H Lymph % (Auto) 13.4 [place] % (Auto) 7.1 Eos % (Auto) 0.3 Baso % (Auto) 0.5 Neut # (Auto) 8.6 H Lymph # (Auto) 1.5 [place] # (Auto) 0.8 Eos # (Auto) 0.0 Baso # (Auto) 0.1 WBC Differential . Differential Comment Auto diff final Sodium 136 Potassium 4.3 Chloride 101 Carbon Dioxide 28.2 Anion Gap 7 BUN 9 Creatinine 0.59 L Estimated GFR Greater than 89 POC Glucose 202 H Random Glucose 108 H Calcium 7.9 L Magnesium 1.8 Urine Color Urine Clarity Urine pH Ur Specific [place] Urine Protein Urine Glucose (UA) Urine Ketones Urine Occult Blood Urine Nitrate Urine Bilirubin Urine Urobilinogen Ur Leukocyte Esterase Urine RBC Urine WBC Urine WBC Clumps Ur Squamous Epith Cells Micro UA Comment Ur Microscopic Review Urine Culture Comments 04/03/18 12:45 WBC RBC Hgb Hct MCV MCH MCHC RDW Plt Count MPV Neut % (Auto) Lymph % (Auto) [place] % (Auto) Eos % (Auto) Baso % (Auto) Neut # (Auto) Lymph # (Auto) [place] # (Auto) Eos # (Auto) Baso # (Auto) WBC Differential Differential Comment Sodium Potassium Chloride Carbon Dioxide Anion Gap BUN Creatinine Estimated GFR POC Glucose 182 H Random Glucose Calcium Magnesium Urine Color Urine Clarity Urine pH Ur Specific [place] Urine Protein Urine Glucose (UA) Urine Ketones Urine Occult Blood Urine Nitrate Urine Bilirubin Urine Urobilinogen Ur Leukocyte Esterase Urine RBC Urine WBC Urine WBC Clumps Ur Squamous Epith Cells Micro UA Comment Ur Microscopic Review Urine Culture Comments - Procedures 03/22- cholecystostomy tube placement 03/23- cardiac cath Assessment and Plan - Assessment (1) Intractable abdominal pain Code(s): R10.9 - Unspecified abdominal pain Status: Acute (2) NSTEMI (non-ST elevated myocardial infarction) Code(s): I21.4 - Non-ST elevation (NSTEMI) myocardial infarction Status: Acute (3) Afib Code(s): I48.91 - Unspecified atrial fibrillation Status: Acute (4) Cholecystitis Code(s): K81.9 - Cholecystitis, unspecified Status: Acute Plan: Repeat LFT's pending. Doubt GB as source, but agree with labs/X-rays; if still painful, can repeat CT withOUT IV contrast - Plan Discussed Condition With: Dr. Pérez Nurse Patient - Attending Attestation I attest that I had a [id number] encounter with the patient on the same day, and personally performed and documented my assessment and findings in the medical record. The following services were provided during this hospital visit: Chart data review, vital sign assessments/reviewing monitor data Review of consultation notes if present Medication orders/review and/or management Ordering and/or reviewing lab tests Ordering and/or interpreting/reviewing x-rays and/or diagnostic studies Care of the patient and discussion of the patient with the care team Documentation time To help prompt me to consider important information that might be impacting today's encounter and assessment, Information from prior notes written by myself or my colleagues may have been "brought forward/copy and pasted" into today's note.
[2018-04-03] MEDS ORDERED: Diatrizoate Meglum/Diatrizoate Sod Liq 9 ML UDC PO ONE (13:04)
[2018-04-03] MEDS: Bisacodyl 10 MG Supp RECTAL PRN (14:07)
--- NOTE | 2018-04-03 14:49 | P.PNCV ---
- Note Subjective/Hospital Course: 67-year-old male who presented to [facility] 03/19/18 due to nausea, vomiting and abdominal pain. He states that he was awakened at 6 a.m. with left -sided flank pain and left mid back pain radiating to the left lower quadrant. He developed nausea and vomiting secondary to the pain. he was incidentally found to have cholecystitis, perc burt tube was placed , Trop was + underwent cardiac cath by Dr Pérez : mid LAD 80%, Left Circ 70 % lesion, RCA 100% occluded in the mid portion with [id number] and right-to- right collaterals supplying the distal portion. Blood cultures grew klebsiella pneumoniae and E coli , followed by ID and recommended to at least complete one week course of IV antibiotics prior to surgery PAST MEDICAL HISTORY: Diabetes, GERD, Hyperlipidemia, morbid obesity with BMI 40, History of gastric bypass. 03/27 pt is pain free at this time , has perc burt drain US of lower ext neg for DVT, Carotid US no stenosis continues on IV antibiotics per ID : VIVIENNE cefepime IV Ceftriaxone IV once a day (stop date: 04/03/2018) after which we will repeat BCX on 04/04/18. If these repeat bcx are negative at 48 hrs and patient clinically doing well will clear him from CABG. VIVIENNE Flagyl consult PT 03/28 pain free will follow / schedule for surgery next week when cleared by ID 03/29 still has some mild right flank pain burt drain in place no chest pain 04/03 c/o of nausea and vomiting since last night , also some abdominal pain for repeat CT abdomen today also repeat Blood cultures pending Objective: Vital Signs - 24 hr 04/02/18 15:00 04/02/18 16:00 04/02/18 16:59 Temperature 98 F Pulse Rate 75 81 72 Respiratory Rate 17 Blood Pressure 109/63 Pulse Oximetry 93 L 04/02/18 17:53 04/02/18 19:00 04/02/18 20:00 Temperature 99 F Pulse Rate 73 75 78 Respiratory Rate 20 Blood Pressure 111/65 Pulse Oximetry 94 L 04/02/18 21:00 04/02/18 22:00 04/02/18 23:00 Temperature Pulse Rate 73 76 76 Respiratory Rate Blood Pressure Pulse Oximetry 04/03/18 00:00 04/03/18 01:00 04/03/18 02:00 Temperature 98.6 F Pulse Rate 71 74 70 Respiratory Rate 18 Blood Pressure 114/63 Pulse Oximetry 95 04/03/18 03:00 04/03/18 04:00 04/03/18 05:00 Temperature 98.2 F Pulse Rate 66 69 72 Respiratory Rate 18 Blood Pressure 101/57 L Pulse Oximetry 95 04/03/18 06:00 04/03/18 12:00 Temperature Pulse Rate 71 93 H Respiratory Rate 20 Blood Pressure 137/76 Pulse Oximetry 97 GENERAL: A&O x 3 SKIN: Warm and dry. burt drain right upper quad HEAD: Normocephalic. EYES: No scleral icterus. No injection or drainage. NECK: Supple, trachea midline. No JVD or lymphadenopathy. CARDIOVASCULAR: Regular rate and rhythm without murmurs, gallops, or rubs. RESPIRATORY: Breath sounds equal bilaterally. No accessory muscle use. GASTROINTESTINAL: obese soft, tenderness over burt drain site MUSCULOSKELETAL: No cyanosis, or edema. BACK: Nontender without obvious deformity. No CVA tenderness. Labs: Laboratory Results - last 12 hr 04/03/18 04/03/18 04/03/18 05:09 05:09 09:27 WBC 10.9 RBC 3.51 L Hgb 10.0 L Hct 31.0 L MCV 88.3 MCH 28.5 MCHC 32.3 RDW 15.0 Plt Count 351 MPV 9.0 Neut % (Auto) 78.7 H Lymph % (Auto) 13.4 Door % (Auto) 7.1 Eos % (Auto) 0.3 Baso % (Auto) 0.5 Neut # (Auto) 8.6 H Lymph # (Auto) 1.5 Door # (Auto) 0.8 Eos # (Auto) 0.0 Baso # (Auto) 0.1 WBC Differential . Differential Comment Auto diff final Sodium 136 Potassium 4.3 Chloride 101 Carbon Dioxide 28.2 Anion Gap 7 BUN 9 Creatinine 0.59 L Estimated GFR Greater than 89 POC Glucose 202 H Random Glucose 108 H Calcium 7.9 L Magnesium 1.8 04/03/18 12:45 WBC RBC Hgb Hct MCV MCH MCHC RDW Plt Count MPV Neut % (Auto) Lymph % (Auto) [place] % (Auto) Eos % (Auto) Baso % (Auto) Neut # (Auto) Lymph # (Auto) Door # (Auto) Eos # (Auto) Baso # (Auto) WBC Differential Differential Comment Sodium Potassium Chloride Carbon Dioxide Anion Gap BUN Creatinine Estimated GFR POC Glucose 182 H Random Glucose Calcium Magnesium Result Diagrams: 04/03/18 05:09 04/03/18 05:09 - Plan (1) Coronary artery disease involving [place] coronary artery Plan: on ASA, low dose BB eval for surgery after 04/04 per ID lovenox OOB/ PT (3) Afib Plan: in NSR (4) Cholecystitis Plan: s/p perc drain for repeat ct abd 2/2 nausea and vomiting
--- NOTE | 2018-04-03 15:09 | P.PNIM ---
Subjective Interval history: The patient was having significant nausea and vomiting. He also complained of constipation. He also had abdominal pain. He requested an enema. Discussed with cardiology and interventional radiology. Physical Exam Vital signs: Vital Signs 04/02/18 16:00 04/02/18 16:59 04/02/18 17:53 Temperature 98 F Pulse Rate 81 72 73 Respiratory Rate 17 Blood Pressure 109/63 Pulse Oximetry 93 L 04/02/18 19:00 04/02/18 20:00 04/02/18 21:00 Temperature 99 F Pulse Rate 75 78 73 Respiratory Rate 20 Blood Pressure 111/65 Pulse Oximetry 94 L 04/02/18 22:00 04/02/18 23:00 04/03/18 00:00 Temperature 98.6 F Pulse Rate 76 76 71 Respiratory Rate 18 Blood Pressure 114/63 Pulse Oximetry 95 04/03/18 01:00 04/03/18 02:00 04/03/18 03:00 Temperature Pulse Rate 74 70 66 Respiratory Rate Blood Pressure Pulse Oximetry 04/03/18 04:00 04/03/18 05:00 04/03/18 06:00 Temperature 98.2 F Pulse Rate 69 72 71 Respiratory Rate 18 Blood Pressure 101/57 L Pulse Oximetry 95 04/03/18 12:00 Temperature Pulse Rate 93 H Respiratory Rate 20 Blood Pressure 137/76 Pulse Oximetry 97 Intake & Output 04/02/18 04/03/18 04/03/18 18:59 06:59 18:59 Intake Total 1060 / 1060 480 / 480 Output Total 450 / 450 700 / 700 Balance 610 / 610 -220 / -220 Weight 108 kg Intake: IV 100 / 100 Rocephin Inj 2,000 MG In NS Inj 100 / 100 100 ML @ 200 mls/hr IV.SIG Q24H [facility] Rx#:[id number] Oral 960 / 960 480 / 480 Output: Urine 450 / 450 700 / 700 Other: Date of Last Bowel Movement 04/02/18 # Bowel Movements 1 Narrative: GENERAL: Uncomfortable. SKIN: Cool and dry, no rash. HEAD: Atraumatic. Normocephalic. No temporal or scalp tenderness. EYES: Pupils equal round and reactive. anicteric. NECK: Trachea midline. Supple, nontender, no meningeal signs. CARDIOVASCULAR: Regular rate and rhythm. RESPIRATORY: Clear to auscultation bilaterally. GASTROINTESTINAL: Abdomen soft, cholecystostomy tube in place. MUSCULOSKELETAL: Extremities without clubbing, cyanosis. NEUROLOGICAL: Alert oriented 3. Nonfocal deficits. Results - Labs CBC & Chem 7: 04/03/18 05:09 04/03/18 05:09 Laboratory Results - last 24 hr 04/02/18 04/02/18 04/02/18 17:10 20:10 20:45 WBC RBC Hgb Hct MCV MCH MCHC RDW Plt Count MPV Neut % (Auto) Lymph % (Auto) [place] % (Auto) Eos % (Auto) Baso % (Auto) Neut # (Auto) Lymph # (Auto) [place] # (Auto) Eos # (Auto) Baso # (Auto) WBC Differential Differential Comment Sodium Potassium Chloride Carbon Dioxide Anion Gap BUN Creatinine Estimated GFR POC Glucose 155 H 107 Random Glucose Calcium Magnesium Urine Color Yellow Urine Clarity Clear Urine pH 7.0 Ur Specific [place] 1.017 Urine Protein 100 H Urine Glucose (UA) Negative Urine Ketones Negative Urine Occult Blood Large H Urine Nitrate Negative Urine Bilirubin Negative Urine Urobilinogen Less than 2 Ur Leukocyte Esterase Negative Urine RBC Urine WBC 83 H Urine WBC Clumps Few H Ur Squamous Epith Cells 6 Micro UA Comment Culture indicated Ur Microscopic Review Not Reportable Urine Culture Comments Culture indicated 04/03/18 04/03/18 04/03/18 05:09 05:09 09:27 WBC 10.9 RBC 3.51 L Hgb 10.0 L Hct 31.0 L MCV 88.3 MCH 28.5 MCHC 32.3 RDW 15.0 Plt Count 351 MPV 9.0 Neut % (Auto) 78.7 H Lymph % (Auto) 13.4 [place] % (Auto) 7.1 Eos % (Auto) 0.3 Baso % (Auto) 0.5 Neut # (Auto) 8.6 H Lymph # (Auto) 1.5 [place] # (Auto) 0.8 Eos # (Auto) 0.0 Baso # (Auto) 0.1 WBC Differential . Differential Comment Auto diff final Sodium 136 Potassium 4.3 Chloride 101 Carbon Dioxide 28.2 Anion Gap 7 BUN 9 Creatinine 0.59 L Estimated GFR Greater than 89 POC Glucose 202 H Random Glucose 108 H Calcium 7.9 L Magnesium 1.8 Urine Color Urine Clarity Urine pH Ur Specific [place] Urine Protein Urine Glucose (UA) Urine Ketones Urine Occult Blood Urine Nitrate Urine Bilirubin Urine Urobilinogen Ur Leukocyte Esterase Urine RBC Urine WBC Urine WBC Clumps Ur Squamous Epith Cells Micro UA Comment Ur Microscopic Review Urine Culture Comments 04/03/18 12:45 WBC RBC Hgb Hct MCV MCH MCHC RDW Plt Count MPV Neut % (Auto) Lymph % (Auto) [place] % (Auto) Eos % (Auto) Baso % (Auto) Neut # (Auto) Lymph # (Auto) [place] # (Auto) Eos # (Auto) Baso # (Auto) WBC Differential Differential Comment Sodium Potassium Chloride Carbon Dioxide Anion Gap BUN Creatinine Estimated GFR POC Glucose 182 H Random Glucose Calcium Magnesium Urine Color Urine Clarity Urine pH Ur Specific [place] Urine Protein Urine Glucose (UA) Urine Ketones Urine Occult Blood Urine Nitrate Urine Bilirubin Urine Urobilinogen Ur Leukocyte Esterase Urine RBC Urine WBC Urine WBC Clumps Ur Squamous Epith Cells Micro UA Comment Ur Microscopic Review Urine Culture Comments Microbiology 04/02/18 20:10 Clean Catch Urine Urine Culture - Preliminary No growth. - Procedures 03/22- cholecystostomy tube placement 03/23- cardiac cath Assessment and Plan - Assessment (1) Cholecystitis Code(s): K81.9 - Cholecystitis, unspecified Status: Acute - Plan Sepsis/ Acute cholecystitis E. coli and Klebsiella pneumonia on blood cultures -03/19. S/p cholecystostomy tube drain- not a candidate for cholecystectomy at this time due to CAD and need for heart surgery. Repeat blood cultures from 03/20- no growth. GI and surgery consults appreciated. -continue with IV antibiotics- Ceftriaxone stop date 04/03. Repeat blood cultures ordered. -continue with pain control as needed. -continue cholecystostomy drain care as directed. Discussed with IR 04/03, not draining well because liquid consistency is very thick. NSTEMI/Afib s/p cardiac cath with multivessel disease. Echo with EF 60% with no regional wall motion abnormalities. S/p KELLY with no vegetations. -CT surgery consult appreciated; plan for CABG when cleared by ID as above. -ASA, Cardizem, Lipitor. -Cardiology following. -on therapeutic Lovenox. N/V/Abdominal pain S/t cholecystitis. Exacerbated by constipation. -pain control and antiemetics as needed. -continue PPI. -low residue, soft diet for now. -repeat CT abdomen pending. Surgery following. DM II Well controlled. -continue Levemir and sliding scale and adjust as needed. DVT prophylaxis with Lovenox Discharge Planning: Awaiting ID clearance for CABG.
[2018-04-03 16:43] LABS: Albumin 2.1 g/dL (3.4-5.0); Total Protein 6.7 g/dL (6.4-8.2)
--- NOTE | 2018-04-03 21:28 | MR ---
EXAM DATE: 04/03/2018 9:16 PM EST AGE/SEX: 67 years / Male INDICATIONS: Obstruction. Abdominal pain. CLINICAL DATA: This is the patient's subsequent encounter. Patient reports that signs and symptoms h ave been present for 2 weeks and indicates a pain score of 6/10. MEDICAL/SURGICAL HISTORY: Cardiovascular disease. Myocardial infarction. Gastroesophageal ref lux disease. Diabetes. Gastric bypass. COMPARISON: [facility] [place], CTA ABDOMEN & PELVIS W CONTRAST W 3D, 03/22/2018. [facility] [place], CT ABDOMEN & PELVIS W/O CONTRAST, 03/19/2018. . TECHNIQUE: Multiplanar, multisequence images of the abdomen were obtained without contrast including dedicated cholangiographic images. FINDINGS: Liver: The liver is homogeneous and normal in signal intensity with no focal defects. Intrahepatic Bile Ducts: There is intrahepatic biliary duct dilatation. Common Bile Duct: There are filling defects within the biliary system. This includes a filling defec t at the confluence of the right and left hepatic ducts. There are numerous focal and linear filling defect seen within the common hepatic and common bile duct. There are filling defects seen in the dis nella common bile duct at the level of the ampulla. Gallbladder: The gallbladder is distended. There is heterogeneous material seen throughout the gallb ladder. The does appear to be a cholecystostomy tube in place. The gallbladder wall is thickened. Pancreas: The pancreas appears normal in signal with no focal parenchymal abnormalities. The pancrea tic duct is normal in caliber with no filling defects, or obstructing lesions identified. CONCLUSION: 1. Numerous filling defects within the central intrahepatic biliary ducts, common hepatic ducts, and common bile ducts. These represent stones and/or thrombus/hemorrhage. The linear defects are more li keyanna related to hemorrhage. 2. Dilatation of the gallbladder with thickened gallbladder wall and a cholecystostomy tube in place . There is heterogeneous material within the gallbladder. Electronically signed by: Elías Davenport MD 04/03/2018 9:27 PM EST
--- NOTE | 2018-04-03 23:15 | P.PNCA ---
Subjective Interval history: Nausea and emesis overnight with abdominal pain No chest pain Medications and Allergies Active Medications: Active Medications Acetaminophen (Tylenol) 650 mg PO Q4H PRN PRN Reason: Temp > 100.4 Last Admin: 03/27/18 09:04 Dose: 650 mg Al Hydroxide/Mg Hydroxide (Milk Of Magnesia Liq) 30 ml PO Q12H PRN PRN Reason: Mild Constipation Last Admin: 03/25/18 15:47 Dose: 30 ml Aspirin (Ecotrin) 81 mg PO DAILY [facility] Last Admin: 04/03/18 10:55 Dose: 81 mg Atorvastatin Calcium (Lipitor) 20 mg PO DAILY [facility] Last Admin: 04/03/18 10:54 Dose: 20 mg Bisacodyl (Dulcolax Supp) 10 mg RECTAL DAILY PRN PRN Reason: SEVERE CONSITIPATION Last Admin: 04/03/18 14:07 Dose: 10 mg Bisacodyl (Dulcolax Ec) 10 mg PO ONCE ONE Last Admin: 03/30/18 17:35 Dose: 10 mg Dextrose (D50w Vial) 50 ml IV.PUSH UNSCH PRN PRN Reason: PER HYPOGLYCEMIA PROTOCOL Diltiazem HCl (Cardizem) 30 mg PO QID [facility] Last Admin: 04/03/18 18:02 Dose: 30 mg Enoxaparin Sodium (Lovenox Inj) 120 mg SQ Q12HR [facility] Last Admin: 04/03/18 10:55 Dose: 120 mg Glucagon (Glucagon Inj) 1 mg OTHER PRN PRN PRN Reason: for Hypoglycemia Protocol Insulin Aspart (Novolog Insulin Correctional Sugar Inj) 0 unit SQ [facility]; Protocol Last Admin: 04/03/18 18:02 Dose: Not Given Insulin Detemir (Levemir Inj) 5 unit SQ BID [facility] Last Admin: 04/03/18 11:02 Dose: 5 unit Lactulose (Lactulose Liq) 30 ml PO DAILY PRN PRN Reason: SEVERE CONSITIPATION Last Admin: 03/25/18 15:47 Dose: 30 ml Magnesium Oxide (Mag-Ox) 400 mg PO BID [facility] Last Admin: 04/03/18 11:01 Dose: 400 mg Metformin HCl (Glucophage) 1,000 mg PO BID [facility] Last Admin: 04/03/18 11:01 Dose: 1,000 mg Morphine Sulfate (Morphine Inj) 2 mg IV.PUSH Q4H PRN PRN Reason: BREAKTHROUGH PAIN Last Admin: 04/03/18 11:00 Dose: 2 mg Oxycodone HCl (Roxicodone) 10 mg PO Q4H PRN PRN Reason: pain 6-10 Last Admin: 04/03/18 18:20 Dose: 10 mg Oxycodone HCl (Roxicodone) 5 mg PO Q4H PRN PRN Reason: pain 3-5 Pantoprazole Sodium (Protonix) 40 mg PO DAILY [facility] Last Admin: 04/03/18 11:02 Dose: 40 mg Potassium Chloride (K-Dur) 20 meq PO DAILY [facility] Last Admin: 04/03/18 11:02 Dose: 20 meq Prochlorperazine Edisylate (Compazine Inj) 10 mg IV.PUSH Q6H PRN PRN Reason: NAUSEA Last Admin: 04/03/18 18:02 Dose: 10 mg Senna/Docusate Sodium (Carlotta-Colace) 1 tab PO BID [facility] Last Admin: 04/03/18 10:54 Dose: 1 tab Sennosides (Senokot) 17.2 mg PO Q12H PRN PRN Reason: Moderate Constipation Last Admin: 03/30/18 05:24 Dose: 17.2 mg Sodium Chloride (Ns Flush) 2 ml IV.FLUSH BID [facility] Last Admin: 04/03/18 10:55 Dose: 2 ml Sodium Chloride (Ns Flush) 2 ml IV.FLUSH PRN PRN PRN Reason: FLUSH AFTER USING IV ACCESS Last Admin: 03/26/18 02:04 Dose: 2 ml Allergies Allergy/AdvReac Type Severity Reaction Status Date / Time No Known Allergies Allergy Verified 03/19/18 10:28 Home Medications Medication Instructions Recorded Confirmed Type atorvastatin 20 mg PO DAILY 03/19/18 03/19/18 History liraglutide [Victoza 2-Sonido] 0.6 mg SUBCUT DAILY 03/19/18 03/19/18 History metformin 1,000 mg PO BID 03/19/18 03/19/18 History omeprazole-sodium bicarbonate 1 cap PO DAILY 03/19/18 03/19/18 History pantoprazole 20 mg PO DAILY 03/19/18 03/19/18 History Physical Exam Vital signs: Vital Signs 04/03/18 00:00 04/03/18 01:00 04/03/18 02:00 Temperature 98.6 F Pulse Rate 71 74 70 Respiratory Rate 18 Blood Pressure 114/63 Pulse Oximetry 95 04/03/18 03:00 04/03/18 04:00 04/03/18 05:00 Temperature 98.2 F Pulse Rate 66 69 72 Respiratory Rate 18 Blood Pressure 101/57 L Pulse Oximetry 95 04/03/18 06:00 04/03/18 07:00 04/03/18 08:00 Temperature Pulse Rate 71 78 86 Respiratory Rate Blood Pressure Pulse Oximetry 04/03/18 09:00 04/03/18 10:00 04/03/18 11:00 Temperature Pulse Rate 84 78 82 Respiratory Rate Blood Pressure Pulse Oximetry 04/03/18 12:00 04/03/18 13:00 04/03/18 14:00 Temperature Pulse Rate 86 94 H 90 Respiratory Rate 20 Blood Pressure 137/76 Pulse Oximetry 97 04/03/18 15:00 04/03/18 16:00 04/03/18 17:00 Temperature Pulse Rate 90 88 88 Respiratory Rate Blood Pressure Pulse Oximetry 04/03/18 17:11 04/03/18 18:00 04/03/18 19:00 Temperature Pulse Rate 90 87 Respiratory Rate Blood Pressure Pulse Oximetry 97 04/03/18 20:00 Temperature Pulse Rate 94 H Respiratory Rate 20 Blood Pressure 131/73 Pulse Oximetry 95 Intake & Output 04/03/18 04/03/18 04/04/18 06:59 18:59 06:59 Intake Total 480 / 480 700 / 700 Output Total 700 / 700 550 / 550 Balance -220 / -220 150 / 150 Weight 108 kg Intake: Oral 480 / 480 700 / 700 Output: Urine 700 / 700 540 / 540 Wound Drainage Right Lower Abdomen Other: Date of Last Bowel Movement 04/02/18 # Bowel Movements 1 # [place] 3 Narrative: GENERAL: Uncomfortable. SKIN: Cool and dry, no rash. HEAD: Atraumatic. Normocephalic. No temporal or scalp tenderness. EYES: Pupils equal round and reactive. anicteric. NECK: Trachea midline. Supple, nontender, no meningeal signs. CARDIOVASCULAR: Regular rate and rhythm. RESPIRATORY: Clear to auscultation bilaterally. GASTROINTESTINAL: Abdomen soft, cholecystostomy tube in place. MUSCULOSKELETAL: Extremities without clubbing, cyanosis. NEUROLOGICAL: Alert oriented 3. Nonfocal deficits. Results 04/03/18 05:09 04/03/18 05:09 Cardiac Enzymes 04/03/18 Range/Units 15:49 AST 257 H (15-37) U/L CBC 04/03/18 Range/Units 05:09 WBC 10.9 (4.0-11.0) th/mm3 RBC 3.51 L (4.50-5.90) mil/mm3 Hgb 10.0 L (13.0-17.0) gm/dL Hct 31.0 L (39.0-51.0) % Plt Count 351 (150-450) th/mm3 Neut # (Auto) 8.6 H (1.8-7.7) th/mm3 Lymph # (Auto) 1.5 (1.0-4.8) th/mm3 [place] # (Auto) 0.8 (0.0-0.9) th/mm3 Eos # (Auto) 0.0 (0.0-0.4) th/mm3 Baso # (Auto) 0.1 (0.0-0.2) th/mm3 Comprehensive Metabolic Panel 04/03/18 04/03/18 Range/Units 05:09 15:49 Sodium 136 (136-145) meq/L Potassium 4.3 (3.5-5.1) meq/L Chloride 101 (98-107) meq/L Carbon Dioxide 28.2 (21.0-32.0) meq/L BUN 9 (7-18) mg/dL Creatinine 0.59 L (0.60-1.30) mg/dL Calcium 7.9 L (8.5-10.1) mg/dL Direct Bilirubin 2.0 H (0.0-0.2) mg/dL Indirect Bilirubin 0.5 (0.0-0.8) mg/dL AST 257 H (15-37) U/L ALT 176 H (12-78) U/L Alkaline Phosphatase 654 H (45-117) U/L Total Protein 6.7 (6.4-8.2) g/dL Albumin 2.1 L (3.4-5.0) g/dL Intake and Output 04/03/18 04/03/18 04/04/18 14:59 22:59 06:59 Intake Total 700 / 700 Output Total 550 / 550 Balance 150 / 150 Intake: Oral 700 / 700 Output: Urine 540 / 540 Wound Drainage Right Lower Abdomen Other: Date of Last Bowel Movement 04/02/18 04/02/18 # Emeses 3 - Imaging and Cardiology Imaging: Impressions Cholangiopancreatography MRI 04/03/18 17:20 CONCLUSION: 1. Numerous filling defects within the central intrahepatic biliary ducts, common hepatic ducts, and common bile ducts. These represent stones and/or thrombus/hemorrhage. The linear defects are more likely related to hemorrhage. 2. Dilatation of the gallbladder with thickened gallbladder wall and a cholecystostomy tube in place. There is heterogeneous material within the gallbladder. Assessment and Plan - Assessment (1) NSTEMI (non-ST elevated myocardial infarction) Code(s): I21.4 - Non-ST elevation (NSTEMI) myocardial infarction Status: Acute (2) Afib Code(s): I48.91 - Unspecified atrial fibrillation Status: Acute (3) SIRS (systemic inflammatory response syndrome) Code(s): R65.10 - Systemic inflammatory response syndrome (SIRS) of non- infectious origin without acute organ dysfunction Status: Acute (4) Intractable abdominal pain Code(s): R10.9 - Unspecified abdominal pain Status: Acute - Plan 1) Abdominal pain/nausea/emesis Found to have cholecystitis Perc burt drain in place with relief of symptoms Nausea/emesis overnight 2) NSTEMI Found to have multivessel CAD CT surgery evaluation Complex case with acute cholecystitis with percutaneous cholecystostomy tube Await repeat blood cultures, if negative then CABG 3) Afib New onset Started on Cardizem, heart rates controlled Eventual anti-coagulation 4) Bacteremia KELLY negative for vegetation, no signs of endocarditis 5) Discussed with Dr. Calvo Will hold off on Cscope due to multivessel CAD 6) Lovenox full dose due to MVCAD/NSTEMI and Afib since surgery will be put off for a week
[2018-04-04] MEDS: Insulin NovoLOG Aspart Correctional Sugar Inj SQ SCH ×5 (02:50→21:52)
[2018-04-04] MEDS: Sodium Chloride 0.9% 2 ML Flush BID IV.FLUSH SCH ×3 (02:51→21:53)
[2018-04-04 06:52] LABS: Baso # (Auto) 0.1 th/mm3 (0.0-0.2); Baso % (Auto) 0.4 % (0.0-2.0); Hematocrit 30.3 % (39.0-51.0); Hemoglobin 9.8 gm/dL (13.0-17.0); Lymph % (Auto) 6.6 % (9.0-44.0); Mean Corpuscular HGB Conc 32.2 % (32.0-36.0); Mean Corpuscular Hemoglobin 28.4 pg (27.0-34.0); Mean Corpuscular Volume 88.1 fL (80.0-100.0); Mean Platelet Volume 8.9 fL (7.0-11.0); Mono # (Auto) 1.2 th/mm3 (0.0-0.9); Mono % (Auto) 7.8 % (0.0-8.0); Neut # (Auto) 13.1 th/mm3 (1.8-7.7); Neut % (Auto) 85.2 % (16.0-70.0); Platelet Count 388 th/mm3 (150-450); Red Blood Count 3.44 mil/mm3 (4.50-5.90); Red Cell Distribution Width 15.4 % (11.6-17.2); White Blood Count 15.3 th/mm3 (4.0-11.0)
[2018-04-04 06:59] LABS: Albumin 2.1 g/dL (3.4-5.0); Calcium 8.1 mg/dL (8.5-10.1); Potassium 4.4 meq/L (3.5-5.1)
[2018-04-04 07:03] LABS: Total Protein 6.4 g/dL (6.4-8.2)
[2018-04-04] MEDS: Senna/Docusate Sodium 8.6/50 MG Tablet PO SCH ×2 (09:51→21:53)
[2018-04-04] MEDS: Enoxaparin Inj 120 MG/0.8 ML Syringe SQ SCH ×2 (09:51→21:51)
[2018-04-04] MEDS: Insulin Detemir Inj 1,000 UNIT/10 ML Vial SQ SCH ×2 (09:52→21:52)
[2018-04-04] MEDS: Magnesium Oxide 400 MG Tablet PO SCH ×2 (09:52→21:51)
[2018-04-04] MEDS: dilTIAZem 30 MG Tablet PO SCH ×4 (09:52→21:51)
--- NOTE | 2018-04-04 12:46 | P.PN ---
Subjective Interval history: Follow-up sepsis/cholecystitis April 04, 2018-patient seen and examined with some episode of nausea without any emesis. Afebrile. Denies any abdominal pain. Physical Exam Vital signs: Vital Signs 04/03/18 13:00 04/03/18 14:00 04/03/18 15:00 Temperature Pulse Rate 94 H 90 90 Respiratory Rate Blood Pressure Pulse Oximetry 04/03/18 16:00 04/03/18 17:00 04/03/18 17:11 Temperature Pulse Rate 88 88 Respiratory Rate Blood Pressure Pulse Oximetry 97 04/03/18 18:00 04/03/18 19:00 04/03/18 20:00 Temperature Pulse Rate 90 87 94 H Respiratory Rate 20 Blood Pressure 131/73 Pulse Oximetry 95 04/03/18 23:00 04/04/18 00:00 04/04/18 01:00 Temperature 98.0 F Pulse Rate 86 78 87 Respiratory Rate 16 Blood Pressure Pulse Oximetry 98 04/04/18 02:00 04/04/18 03:00 04/04/18 04:00 Temperature Pulse Rate 80 84 84 Respiratory Rate 18 Blood Pressure 118/66 Pulse Oximetry 94 L 04/04/18 05:00 04/04/18 05:50 04/04/18 06:00 Temperature Pulse Rate 82 82 Respiratory Rate 18 Blood Pressure Pulse Oximetry 04/04/18 07:00 04/04/18 08:00 04/04/18 09:00 Temperature 98.7 F Pulse Rate 80 82 78 Respiratory Rate 20 Blood Pressure 95/59 L Pulse Oximetry 94 L 04/04/18 10:00 04/04/18 10:35 04/04/18 11:00 Temperature Pulse Rate 84 84 Respiratory Rate Blood Pressure Pulse Oximetry 94 L 04/04/18 12:00 Temperature Pulse Rate 84 Respiratory Rate 18 Blood Pressure 116/70 Pulse Oximetry 98 Intake & Output 04/03/18 04/04/18 04/04/18 18:59 06:59 18:59 Intake Total 700 / 700 260 / 260 Output Total 550 / 550 223 / 223 Balance 150 / 150 37 / 37 Weight 105.5 kg Intake: Oral 700 / 700 240 / 240 Other Output: Urine 540 / 540 200 / 200 Wound Drainage Right Lower Abdomen Other: Other Intake Source Saline Solution Date of Last Bowel Movement 04/02/18 04/04/18 04/02/18 # Bowel Movements 1 # Incontinent Bowel Movements 1 # [place] 3 Narrative: GENERAL: NAD SKIN: Cool and dry, no rash. HEAD: Atraumatic. Normocephalic. No temporal or scalp tenderness. EYES: Pupils equal round and reactive. NECK: Trachea midline. Supple, nontender, no meningeal signs. CARDIOVASCULAR: Regular rate and rhythm. RESPIRATORY: Clear to auscultation bilaterally. GASTROINTESTINAL: Abdomen soft, cholecystostomy tube in place. MUSCULOSKELETAL: Extremities without clubbing, cyanosis. NEUROLOGICAL: Alert oriented 3. Nonfocal deficits. Results - Labs CBC & Chem 7: 04/04/18 05:58 04/04/18 05:58 Laboratory Results - last 24 hr 04/03/18 04/03/18 04/03/18 12:45 15:49 17:09 WBC RBC Hgb Hct MCV MCH MCHC RDW Plt Count MPV Neut % (Auto) Lymph % (Auto) [place] % (Auto) Eos % (Auto) Baso % (Auto) Neut # (Auto) Lymph # (Auto) [place] # (Auto) Eos # (Auto) Baso # (Auto) WBC Differential Differential Comment Sodium Potassium Chloride Carbon Dioxide Anion Gap BUN Creatinine Estimated GFR POC Glucose 182 H 169 H Random Glucose Calcium Total Bilirubin 2.5 H Direct Bilirubin 2.0 H Indirect Bilirubin 0.5 AST 257 H ALT 176 H Alkaline Phosphatase 654 H Total Protein 6.7 Albumin 2.1 L Lipase 90 04/03/18 04/04/18 04/04/18 22:16 05:58 05:58 WBC 15.3 H RBC 3.44 L Hgb 9.8 L Hct 30.3 L MCV 88.1 MCH 28.4 MCHC 32.2 RDW 15.4 Plt Count 388 MPV 8.9 Neut % (Auto) 85.2 H Lymph % (Auto) 6.6 L [place] % (Auto) 7.8 Eos % (Auto) 0.0 Baso % (Auto) 0.4 Neut # (Auto) 13.1 H Lymph # (Auto) 1.0 [place] # (Auto) 1.2 H Eos # (Auto) 0.0 Baso # (Auto) 0.1 WBC Differential . Differential Comment Auto diff final Sodium 134 L Potassium 4.4 Chloride 98 Carbon Dioxide 28.0 Anion Gap 8 BUN 11 Creatinine 1.05 Estimated GFR 70 L POC Glucose 163 H Random Glucose 138 H Calcium 8.1 L Total Bilirubin 3.0 H Direct Bilirubin 2.4 H Indirect Bilirubin 0.6 AST 228 H ALT 170 H Alkaline Phosphatase 697 H Total Protein 6.4 Albumin 2.1 L Lipase 39 L 04/04/18 04/04/18 08:20 11:31 WBC RBC Hgb Hct MCV MCH MCHC RDW Plt Count MPV Neut % (Auto) Lymph % (Auto) [place] % (Auto) Eos % (Auto) Baso % (Auto) Neut # (Auto) Lymph # (Auto) [place] # (Auto) Eos # (Auto) Baso # (Auto) WBC Differential Differential Comment Sodium Potassium Chloride Carbon Dioxide Anion Gap BUN Creatinine Estimated GFR POC Glucose 138 H 186 H Random Glucose Calcium Total Bilirubin Direct Bilirubin Indirect Bilirubin AST ALT Alkaline Phosphatase Total Protein Albumin Lipase Microbiology 04/03/18 11:02 Blood - Peripheral Aerobic Blood Culture - Preliminary No growth in 1 day 04/03/18 11:02 Blood - Peripheral Anaerobic Blood Culture - Preliminary No growth in 1 day 04/03/18 11:09 Blood - Peripheral Aerobic Blood Culture - Preliminary No growth in 1 day 04/03/18 11:09 Blood - Peripheral Anaerobic Blood Culture - Preliminary No growth in 1 day 04/02/18 20:10 Clean Catch Urine Urine Culture - Final No growth in 48 hours - Imaging Impressions Cholangiopancreatography MRI 04/03/18 17:20 CONCLUSION: 1. Numerous filling defects within the central intrahepatic biliary ducts, common hepatic ducts, and common bile ducts. These represent stones and/or thrombus/hemorrhage. The linear defects are more likely related to hemorrhage. 2. Dilatation of the gallbladder with thickened gallbladder wall and a cholecystostomy tube in place. There is heterogeneous material within the gallbladder. - Procedures 03/22- cholecystostomy tube placement 03/23- cardiac cath Assessment and Plan - Assessment (1) Cholecystitis Code(s): K81.9 - Cholecystitis, unspecified Status: Acute - Plan 67-year-old man with Sepsis/ Acute cholecystitis E. coli and Klebsiella pneumonia on blood cultures -03/19. S/p cholecystostomy tube drain- not a candidate for cholecystectomy at this time due to CAD and need for heart surgery. -Completed ceftriaxone 04/03. -continue with pain control as needed. -continue cholecystostomy drain care as directed. -Appreciate input from general surgery, infectious disease specialist NSTEMI/Afib s/p cardiac cath with multivessel disease. Echo with EF 60% with no regional wall motion abnormalities. S/p KELLY with no vegetations. -CT surgery consult appreciated;and plan for CABG when cleared by ID as above. -Continue ASA, Cardizem, Lipitor. DM II -continue Levemir and sliding scale and adjust as needed. DVT prophylaxis with Lovenox
--- NOTE | 2018-04-04 14:02 | P.PNID ---
Subjective Remarks: Mr. Bridges is a 67-year-old male patient who presented to the emergency room on March 19, 2018. Patient initially reported nausea vomiting as well as abdominal pain on admission. Of note patient's past medical history significant for gastric bypass surgery many years back. Patient also has a history of type 2 diabetes, GERD, hyperlipidemia as well as morbid obesity. Condition he reports chronic lower back pain as well as arthritis. Patient reports that his abdominal pain started in the left lower quadrant associated with nausea and vomiting of clear emesis. He reports that he was still vomiting until yesterday and vomiting has now resolved. He continues to have abdominal pain. Patient denied any fever chills or night sweats prior to admission. Patient reports that his last EGD and colonoscopy was in 2006 prior to gastric bypass surgery. Patient reports he has lost a total of 257 pounds since he has had surgery. Patient was asked to have a repeat colonoscopy in 10 years if there were no abnormal findings. He denies any use of alcohol or tobacco products recently but has used in the past. He reports that his mother had gastric cancer in his brother also had a gastric cancer at the age of 38 years. He denies any hematemesis or any black tarry stools or fresh blood in stool. Patient reports that he has a bowel movement every 1-2 days. He denies any history of constipation and diarrhea. A CT of the abdomen pelvis done on admission reveals thickening of the distal descending colon and there is a concern for colonic mass and therefore GI has been consulted. Due to elevated troponins cardiology has also been called and there is a plan for KELLY and possibly a cardiac cath in the future. Blood cultures drawn and admission are positive for gram-negative rods and infectious diseases consulted for evaluation and management of the same. Interim course: GB as source and IR cholecystostomy. STEMI plan for CABG once ID clears. Delayed entry patient seen at 10 am ~. Notes reviewed. Overnight events reviewed with RN. Complains of Nausea Denies any vomiting or abdominal pain and distention. Passing gas. Had 2 semi formed BMs after which he felt better. Antibiotics: None Lines: Lines ok Past Medical History: reviewed Allergies/Adverse Reactions: Allergies No Known Allergies Allergy (Verified 03/19/18 10:28) Objective Vital Signs 04/03/18 15:00 04/03/18 16:00 04/03/18 17:00 Temperature Pulse Rate 90 88 88 Respiratory Rate Blood Pressure Pulse Oximetry 04/03/18 17:11 04/03/18 18:00 04/03/18 19:00 Temperature Pulse Rate 90 87 Respiratory Rate Blood Pressure Pulse Oximetry 97 04/03/18 20:00 04/03/18 23:00 04/04/18 00:00 Temperature 98.0 F Pulse Rate 94 H 86 78 Respiratory Rate 20 16 Blood Pressure 131/73 Pulse Oximetry 95 98 04/04/18 01:00 04/04/18 02:00 04/04/18 03:00 Temperature Pulse Rate 87 80 84 Respiratory Rate Blood Pressure Pulse Oximetry 04/04/18 04:00 04/04/18 05:00 04/04/18 05:50 Temperature Pulse Rate 84 82 Respiratory Rate 18 18 Blood Pressure 118/66 Pulse Oximetry 94 L 04/04/18 06:00 04/04/18 07:00 04/04/18 08:00 Temperature 98.7 F Pulse Rate 82 80 82 Respiratory Rate 20 Blood Pressure 95/59 L Pulse Oximetry 94 L 04/04/18 09:00 04/04/18 10:00 04/04/18 10:35 Temperature Pulse Rate 78 84 Respiratory Rate Blood Pressure Pulse Oximetry 94 L 04/04/18 11:00 04/04/18 12:00 Temperature Pulse Rate 84 84 Respiratory Rate 18 Blood Pressure 116/70 Pulse Oximetry 98 Intake & Output 04/03/18 04/04/18 04/04/18 18:59 06:59 18:59 Intake Total 700 / 700 260 / 260 Output Total 550 / 550 223 / 223 Balance 150 / 150 37 / 37 Weight 105.5 kg Intake: Oral 700 / 700 240 / 240 Other 20 20 Output: Urine 540 / 540 200 / 200 Wound Drainage Right Lower Abdomen Other: Other Intake Source Saline Solution Date of Last Bowel Movement 04/02/18 04/04/18 04/02/18 # Bowel Movements 1 # Incontinent Bowel Movements 1 # [place] 3 04/03/18 11:02 Blood - Peripheral Aerobic Blood Culture - Preliminary No growth in 1 day 04/03/18 11:02 Blood - Peripheral Anaerobic Blood Culture - Preliminary No growth in 1 day 04/03/18 11:09 Blood - Peripheral Aerobic Blood Culture - Preliminary No growth in 1 day 04/03/18 11:09 Blood - Peripheral Anaerobic Blood Culture - Preliminary No growth in 1 day 04/02/18 20:10 Clean Catch Urine Urine Culture - Final No growth in 48 hours Lab - Hematology Results 04/03/18 04/04/18 05:09 05:58 WBC 10.9 15.3 H RBC 3.51 L 3.44 L Hgb 10.0 L 9.8 L Hct 31.0 L 30.3 L MCV 88.3 88.1 MCH 28.5 28.4 MCHC 32.3 32.2 RDW 15.0 15.4 Plt Count 351 388 MPV 9.0 8.9 Neut % (Auto) 78.7 H 85.2 H Lymph % (Auto) 13.4 6.6 L [place] % (Auto) 7.1 7.8 Eos % (Auto) 0.3 0.0 Baso % (Auto) 0.5 0.4 Neut # (Auto) 8.6 H 13.1 H Lymph # (Auto) 1.5 1.0 [place] # (Auto) 0.8 1.2 H Eos # (Auto) 0.0 0.0 Baso # (Auto) 0.1 0.1 WBC Differential . . Differential Comment Auto diff final Auto diff final Lab - Chemistry Results 04/02/18 04/02/18 04/03/18 17:10 20:45 05:09 Sodium 136 Potassium 4.3 Chloride 101 Carbon Dioxide 28.2 Anion Gap 7 BUN 9 Creatinine 0.59 L Estimated GFR Greater than 89 POC Glucose 155 H 107 Random Glucose 108 H Calcium 7.9 L Magnesium 1.8 Total Bilirubin Direct Bilirubin Indirect Bilirubin AST ALT Alkaline Phosphatase Total Protein Albumin Lipase 04/03/18 04/03/18 04/03/18 09:27 12:45 15:49 Sodium Potassium Chloride Carbon Dioxide Anion Gap BUN Creatinine Estimated GFR POC Glucose 202 H 182 H Random Glucose Calcium Magnesium Total Bilirubin 2.5 H Direct Bilirubin 2.0 H Indirect Bilirubin 0.5 AST 257 H ALT 176 H Alkaline Phosphatase 654 H Total Protein 6.7 Albumin 2.1 L Lipase 90 04/03/18 04/03/18 04/04/18 17:09 22:16 05:58 Sodium 134 L Potassium 4.4 Chloride 98 Carbon Dioxide 28.0 Anion Gap 8 BUN 11 Creatinine 1.05 Estimated GFR 70 L POC Glucose 169 H 163 H Random Glucose 138 H Calcium 8.1 L Magnesium Total Bilirubin 3.0 H Direct Bilirubin 2.4 H Indirect Bilirubin 0.6 AST 228 H ALT 170 H Alkaline Phosphatase 697 H Total Protein 6.4 Albumin 2.1 L Lipase 39 L 04/04/18 04/04/18 08:20 11:31 Sodium Potassium Chloride Carbon Dioxide Anion Gap BUN Creatinine Estimated GFR POC Glucose 138 H 186 H Random Glucose Calcium Magnesium Total Bilirubin Direct Bilirubin Indirect Bilirubin AST ALT Alkaline Phosphatase Total Protein Albumin Lipase Imaging: ITS Impressions Abdomen/Pelvis CT 03/19/18 10:38 CONCLUSION: 1. Short segmental concentric wall thickening is identified in the distal descending colon. Colon malignancy needs to be excluded. 2. Calcified gallstones with moderate distention of the gallbladder. 3. No other significant abnormality. Chest CTA 03/19/18 13:37 CONCLUSION: 1. No evidence of acute pulmonary embolism. 2. Mild subpleural airspace disease and reticulations which may be chronic. 3. No evidence of segmental or lobar lung consolidation. Abdomen/Pelvis CTA 03/22/18 00:00 CONCLUSION: 1. Prominent gallbladder distention and surrounding inflammatory changes consistent with cholecystitis 2. No acute vascular findings in the abdomen or pelvis. Carotid Doppler Study 03/25/18 12:49 CONCLUSION: 1. Right Internal Carotid Artery: No significant plaque or narrowing. 2. Left Internal Carotid Artery: No significant plaque or narrowing. Lower Extremity Ultrasound 03/25/18 12:49 CONCLUSION: Bilateral greater saphenous vein measurements as above. No acute abnormalities are demonstrated. Venous Doppler Study 03/25/18 12:49 CONCLUSION: Negative study. No venous thrombosis of either lower extremity. Chest X-Ray 03/26/18 00:00 CONCLUSION: Mild basilar airspace disease with trace pleural fluid. No pneumothorax. Percutaneous Cholangiogram 03/31/18 00:00 CONCLUSION: Uncomplicated percutaneous cholecystostomy as above. Cholangiopancreatography MRI 04/03/18 17:20 CONCLUSION: 1. Numerous filling defects within the central intrahepatic biliary ducts, common hepatic ducts, and common bile ducts. These represent stones and/or thrombus/hemorrhage. The linear defects are more likely related to hemorrhage. 2. Dilatation of the gallbladder with thickened gallbladder wall and a cholecystostomy tube in place. There is heterogeneous material within the gallbladder. Physical Exam: GENERAL: Obese, well-developed, not in acute distress SKIN: Cool and dry, no generalized rash HEAD: Atraumatic. Normocephalic. No temporal or scalp tenderness. EYES: Pupils equal round and reactive. Scleral icterus. No injection or drainage. No petechia ENT: Nothing abnormal detected NECK: Trachea midline. Supple, nontender, no meningeal signs. CARDIOVASCULAR: HS audible. RESPIRATORY: Clear to auscultation bilaterally. GASTROINTESTINAL: Abdomen soft ,Non tender. Cholecystostomy tube in place with dark fluid in place. MUSCULOSKELETAL: Extremities without clubbing, cyanosis or edema. NEUROLOGICAL: Alert oriented 3. Nonfocal. Psych cooperative IV line sites ok. Assessment and Plan - Plan Sepsis present on admission Gram-negative bacteremia E. coli and Klebsiella pneumonia isolated. Acute cholecystitis s/p Cholecystostomy tube placement. Abnormal CT scan indicating cholecystitis which is likely the source of the sepsis. Leukocytosis. White blood cell count elevated. Non-ST elevation SD likely secondary to sepsis cardiology on board -KELLY negative. Recommendations: Observe off antibiotics. If repeat bcx are negative at 48 hrs and patient clinically doing well patient is cleared for CABG surgery. Discussed with patient. Dw DAVON Whitehead and Dr.Sayess snow. Will sign off please call back if any change in clinical condition or questions.
--- NOTE | 2018-04-04 15:18 | P.PNGI ---
Subjective Interval history: Patient awake and alert sitting up in bed Reports intermittent generalized abdominal discomfort <Michelle Wood - Last Filed: 04/04/18 15:11> Physical Exam Vital signs: Vital Signs 04/03/18 16:00 04/03/18 17:00 04/03/18 17:11 Temperature Pulse Rate 88 88 Respiratory Rate Blood Pressure Pulse Oximetry 97 04/03/18 18:00 04/03/18 19:00 04/03/18 20:00 Temperature Pulse Rate 90 87 94 H Respiratory Rate 20 Blood Pressure 131/73 Pulse Oximetry 95 04/03/18 23:00 04/04/18 00:00 04/04/18 01:00 Temperature 98.0 F Pulse Rate 86 78 87 Respiratory Rate 16 Blood Pressure Pulse Oximetry 98 04/04/18 02:00 04/04/18 03:00 04/04/18 04:00 Temperature Pulse Rate 80 84 84 Respiratory Rate 18 Blood Pressure 118/66 Pulse Oximetry 94 L 04/04/18 05:00 04/04/18 05:50 04/04/18 06:00 Temperature Pulse Rate 82 82 Respiratory Rate 18 Blood Pressure Pulse Oximetry 04/04/18 07:00 04/04/18 08:00 04/04/18 09:00 Temperature 98.7 F Pulse Rate 80 82 78 Respiratory Rate 20 Blood Pressure 95/59 L Pulse Oximetry 94 L 04/04/18 10:00 04/04/18 10:35 04/04/18 11:00 Temperature Pulse Rate 84 84 Respiratory Rate Blood Pressure Pulse Oximetry 94 L 04/04/18 12:00 04/04/18 13:00 04/04/18 14:00 Temperature Pulse Rate 84 82 84 Respiratory Rate 18 Blood Pressure 116/70 Pulse Oximetry 98 Intake & Output 04/03/18 04/04/18 04/04/18 18:59 06:59 18:59 Intake Total 700 / 700 260 / 260 Output Total 550 / 550 223 / 223 Balance 150 / 150 37 / 37 Weight 105.5 kg Intake: Oral 700 / 700 240 / 240 Other Output: Urine 540 / 540 200 / 200 Wound Drainage Right Lower Abdomen Other: Other Intake Source Saline Solution Date of Last Bowel Movement 04/02/18 04/04/18 04/02/18 # Bowel Movements 1 # Incontinent Bowel Movements 1 # Emeses 3 - Constitutional no acute distress - Routine HEENT Exam Head: Present: normocephalic - Routine Respiratory Exam Present: CTA bilaterally. Absent: accessory muscle use - Routine Cardiovascular Exam Present: S1, S2 - Routine Abdominal Exam Present: soft, normoactive bowel sounds. Absent: distended, guarding, firm - Routine Skin Exam Present: dry, warm - Routine Neurological Exam Present: alert, oriented X3 <Wood,Michelle - Last Filed: 04/04/18 15:11> Vital signs: Vital Signs 04/03/18 17:00 04/03/18 17:11 04/03/18 18:00 Temperature Pulse Rate 88 90 Respiratory Rate Blood Pressure Pulse Oximetry 97 04/03/18 19:00 04/03/18 20:00 04/03/18 23:00 Temperature Pulse Rate 87 94 H 86 Respiratory Rate 20 Blood Pressure 131/73 Pulse Oximetry 95 04/04/18 00:00 04/04/18 01:00 04/04/18 02:00 Temperature 98.0 F Pulse Rate 78 87 80 Respiratory Rate 16 Blood Pressure Pulse Oximetry 98 04/04/18 03:00 04/04/18 04:00 04/04/18 05:00 Temperature Pulse Rate 84 84 82 Respiratory Rate 18 Blood Pressure 118/66 Pulse Oximetry 94 L 04/04/18 05:50 04/04/18 06:00 04/04/18 07:00 Temperature Pulse Rate 82 80 Respiratory Rate 18 Blood Pressure Pulse Oximetry 04/04/18 08:00 04/04/18 09:00 04/04/18 10:00 Temperature 98.7 F Pulse Rate 82 78 84 Respiratory Rate 20 Blood Pressure 95/59 L Pulse Oximetry 94 L 04/04/18 10:35 04/04/18 11:00 04/04/18 12:00 Temperature Pulse Rate 84 84 Respiratory Rate 18 Blood Pressure 116/70 Pulse Oximetry 94 L 98 04/04/18 13:00 04/04/18 14:00 Temperature Pulse Rate 82 84 Respiratory Rate Blood Pressure Pulse Oximetry Intake & Output 04/03/18 04/04/18 04/04/18 18:59 06:59 18:59 Intake Total 700 / 700 260 / 260 Output Total 550 / 550 223 / 223 Balance 150 / 150 37 / 37 Weight 105.5 kg Intake: Oral 700 / 700 240 / 240 Other Output: Urine 540 / 540 200 / 200 Wound Drainage Right Lower Abdomen Other: Other Intake Source Saline Solution Date of Last Bowel Movement 04/02/18 04/04/18 04/02/18 # Bowel Movements 1 # Incontinent Bowel Movements 1 # Emeses 3 <Zhou Wright A - Last Filed: 04/04/18 16:43> Results - Labs CBC & Chem 7: 04/04/18 05:58 04/04/18 05:58 Laboratory Results - last 24 hr 04/03/18 04/03/18 04/03/18 15:49 17:09 22:16 WBC RBC Hgb Hct MCV MCH MCHC RDW Plt Count MPV Neut % (Auto) Lymph % (Auto) [place] % (Auto) Eos % (Auto) Baso % (Auto) Neut # (Auto) Lymph # (Auto) [place] # (Auto) Eos # (Auto) Baso # (Auto) WBC Differential Differential Comment Sodium Potassium Chloride Carbon Dioxide Anion Gap BUN Creatinine Estimated GFR POC Glucose 169 H 163 H Random Glucose Calcium Total Bilirubin 2.5 H Direct Bilirubin 2.0 H Indirect Bilirubin 0.5 AST 257 H ALT 176 H Alkaline Phosphatase 654 H Total Protein 6.7 Albumin 2.1 L Lipase 90 04/04/18 04/04/18 04/04/18 05:58 05:58 08:20 WBC 15.3 H RBC 3.44 L Hgb 9.8 L Hct 30.3 L MCV 88.1 MCH 28.4 MCHC 32.2 RDW 15.4 Plt Count 388 MPV 8.9 Neut % (Auto) 85.2 H Lymph % (Auto) 6.6 L [place] % (Auto) 7.8 Eos % (Auto) 0.0 Baso % (Auto) 0.4 Neut # (Auto) 13.1 H Lymph # (Auto) 1.0 [place] # (Auto) 1.2 H Eos # (Auto) 0.0 Baso # (Auto) 0.1 WBC Differential . Differential Comment Auto diff final Sodium 134 L Potassium 4.4 Chloride 98 Carbon Dioxide 28.0 Anion Gap 8 BUN 11 Creatinine 1.05 Estimated GFR 70 L POC Glucose 138 H Random Glucose 138 H Calcium 8.1 L Total Bilirubin 3.0 H Direct Bilirubin 2.4 H Indirect Bilirubin 0.6 AST 228 H ALT 170 H Alkaline Phosphatase 697 H Total Protein 6.4 Albumin 2.1 L Lipase 39 L 04/04/18 11:31 WBC RBC Hgb Hct MCV MCH MCHC RDW Plt Count MPV Neut % (Auto) Lymph % (Auto) [place] % (Auto) Eos % (Auto) Baso % (Auto) Neut # (Auto) Lymph # (Auto) [place] # (Auto) Eos # (Auto) Baso # (Auto) WBC Differential Differential Comment Sodium Potassium Chloride Carbon Dioxide Anion Gap BUN Creatinine Estimated GFR POC Glucose 186 H Random Glucose Calcium Total Bilirubin Direct Bilirubin Indirect Bilirubin AST ALT Alkaline Phosphatase Total Protein Albumin Lipase Microbiology 04/03/18 11:02 Blood - Peripheral Aerobic Blood Culture - Preliminary No growth in 1 day 04/03/18 11:02 Blood - Peripheral Anaerobic Blood Culture - Preliminary No growth in 1 day 04/03/18 11:09 Blood - Peripheral Aerobic Blood Culture - Preliminary No growth in 1 day 04/03/18 11:09 Blood - Peripheral Anaerobic Blood Culture - Preliminary No growth in 1 day 04/02/18 20:10 Clean Catch Urine Urine Culture - Final No growth in 48 hours - Imaging Impressions Cholangiopancreatography MRI 04/03/18 17:20 CONCLUSION: 1. Numerous filling defects within the central intrahepatic biliary ducts, common hepatic ducts, and common bile ducts. These represent stones and/or thrombus/hemorrhage. The linear defects are more likely related to hemorrhage. 2. Dilatation of the gallbladder with thickened gallbladder wall and a cholecystostomy tube in place. There is heterogeneous material within the gallbladder. - Procedures 03/22- cholecystostomy tube placement 03/23- cardiac cath <Michelle Wood - Last Filed: 04/04/18 15:11> - Labs CBC & Chem 7: 04/04/18 05:58 04/04/18 05:58 Laboratory Results - last 24 hr 04/03/18 04/03/18 04/03/18 15:49 17:09 22:16 WBC RBC Hgb Hct MCV MCH MCHC RDW Plt Count MPV Neut % (Auto) Lymph % (Auto) [place] % (Auto) Eos % (Auto) Baso % (Auto) Neut # (Auto) Lymph # (Auto) [place] # (Auto) Eos # (Auto) Baso # (Auto) WBC Differential Differential Comment Sodium Potassium Chloride Carbon Dioxide Anion Gap BUN Creatinine Estimated GFR POC Glucose 169 H 163 H Random Glucose Calcium Total Bilirubin 2.5 H Direct Bilirubin 2.0 H Indirect Bilirubin 0.5 AST 257 H ALT 176 H Alkaline Phosphatase 654 H Total Protein 6.7 Albumin 2.1 L Lipase 90 04/04/18 04/04/18 04/04/18 05:58 05:58 08:20 WBC 15.3 H RBC 3.44 L Hgb 9.8 L Hct 30.3 L MCV 88.1 MCH 28.4 MCHC 32.2 RDW 15.4 Plt Count 388 MPV 8.9 Neut % (Auto) 85.2 H Lymph % (Auto) 6.6 L [place] % (Auto) 7.8 Eos % (Auto) 0.0 Baso % (Auto) 0.4 Neut # (Auto) 13.1 H Lymph # (Auto) 1.0 [place] # (Auto) 1.2 H Eos # (Auto) 0.0 Baso # (Auto) 0.1 WBC Differential . Differential Comment Auto diff final Sodium 134 L Potassium 4.4 Chloride 98 Carbon Dioxide 28.0 Anion Gap 8 BUN 11 Creatinine 1.05 Estimated GFR 70 L POC Glucose 138 H Random Glucose 138 H Calcium 8.1 L Total Bilirubin 3.0 H Direct Bilirubin 2.4 H Indirect Bilirubin 0.6 AST 228 H ALT 170 H Alkaline Phosphatase 697 H Total Protein 6.4 Albumin 2.1 L Lipase 39 L 04/04/18 11:31 WBC RBC Hgb Hct MCV MCH MCHC RDW Plt Count MPV Neut % (Auto) Lymph % (Auto) [place] % (Auto) Eos % (Auto) Baso % (Auto) Neut # (Auto) Lymph # (Auto) [place] # (Auto) Eos # (Auto) Baso # (Auto) WBC Differential Differential Comment Sodium Potassium Chloride Carbon Dioxide Anion Gap BUN Creatinine Estimated GFR POC Glucose 186 H Random Glucose Calcium Total Bilirubin Direct Bilirubin Indirect Bilirubin AST ALT Alkaline Phosphatase Total Protein Albumin Lipase Microbiology 04/03/18 11:02 Blood - Peripheral Aerobic Blood Culture - Preliminary No growth in 1 day 04/03/18 11:02 Blood - Peripheral Anaerobic Blood Culture - Preliminary No growth in 1 day 04/03/18 11:09 Blood - Peripheral Aerobic Blood Culture - Preliminary No growth in 1 day 04/03/18 11:09 Blood - Peripheral Anaerobic Blood Culture - Preliminary No growth in 1 day 04/02/18 20:10 Clean Catch Urine Urine Culture - Final No growth in 48 hours - Imaging Impressions Cholangiopancreatography MRI 04/03/18 17:20 CONCLUSION: 1. Numerous filling defects within the central intrahepatic biliary ducts, common hepatic ducts, and common bile ducts. These represent stones and/or thrombus/hemorrhage. The linear defects are more likely related to hemorrhage. 2. Dilatation of the gallbladder with thickened gallbladder wall and a cholecystostomy tube in place. There is heterogeneous material within the gallbladder. <Zhou Wright - Last Filed: 04/04/18 16:43> Assessment and Plan (1) Intractable abdominal pain Status: Acute Code(s): R10.9 - Unspecified abdominal pain - Plan Assessment: - Colon wall thickening- CT abdomen and pelvis (03/19) Short segmental concentric wall thickening is identified in the distal descending colon. Colon malignancy needs to be excluded. Calcified gallstones with moderate distention of the gallbladder. Patient states last EGD/colonoscopy was done in 2006 prior to gastric bypass surgery. Reportedly normal exam. Family history of gastric cancer-he states his brother of gastric cancer at the age of 3838 years old. EGD/colonoscopy recommended when pt is cleared by cardiology and is stable - Acute cholecystitis - CTA abd/pelvis done to rule out mesenteric ischemia yesterday CTA abd/pelvis (03/22) Prominent gallbladder distention and surrounding inflammatory changes consistent with cholecystitis No acute vascular findings in the abdomen or pelvis. Poor surgical candidate, S/P cholecystostomy tube placement by IR. GS following - Klebsiella Pneumoniae bacteremia- ID following to determine etiology. KELLY negative for vegetation. Suspect secondary to acute cholecystitis - A-fib with RVR and elevated troponin- now rate controlled, on Amiodarone gtt, on Heparin- cardiology following (03/24) S/P cardiac cath- multivessel CAD, cardiothoracic surgery has been consulted. Dark bile output from cholecystostomy tube. 03/25/2018, continues with some right-sided abdominal pain around the area of right biliary drainage tube which shows small amount of dark bilious drainage Constipation questionable bowel movement states none in the past 6 days, will review medications Continues with IV fluids at 100 cc an hour. Until cardiothoracic consult and clearance for any further GI workup will follow as needed Hemoglobin stable at 9.8 and WBC count 13 no obvious bleeding 04/04/2018 Our service has been asked to see patient due to increasing liver function tests , possibly passed stone. Cholecystostomy tube in place with scant drainage noted in drainage city collector bag. WBC 15.3 hemoglobin 9.8 hematocrit 30.3 total bilirubin 3.0 AST 228 ALT 170 alk phos 697 04/03/2018 MRCP revealed the following-- 1. Numerous filling defects within the central intrahepatic biliary ducts, common hepatic ducts, and common bile ducts. These represent stones and/or thrombus/hemorrhage. The linear defects are more likely related to hemorrhage. 2. Dilatation of the gallbladder with thickened gallbladder wall and a cholecystostomy tube in place. There is heterogeneous material within the gallbladder. Plan -Cardiac diet as tolerated -Interventional radiology consulted to evaluate patency of cholecystostomy tube -Continue to monitor labs closely-CBC liver function tests -Patient will require cardiac clearance for endoscopic procedures -Antiemetics and analgesia as per attending -Continue PPI -Continue bowel regimen -Supportive care -Further recommendations to follow This patient has been seen by myself and Dr. Wright and this note is written on his behalf - Attending Attestation Dr. Wright <Michelle Wood - Last Filed: 04/04/18 15:11> (1) Intractable abdominal pain Status: Acute Code(s): R10.9 - Unspecified abdominal pain - Attending Attestation Seen and examined, likely biliary stone as the etiology, will check cholangiogram via tube or MRCP. ERCP cannot be done with history of gastric bypass ,will check options after results. will follow up with you. Thank you for the consult. <Zhou Wright - Last Filed: 04/04/18 16:43>
--- NOTE | 2018-04-04 17:26 | P.PN ---
Subjective Interval history: Patient still feels ill Physical Exam Vital signs: Vital Signs 04/03/18 18:00 04/03/18 19:00 04/03/18 20:00 Temperature Pulse Rate 90 87 94 H Respiratory Rate 20 Blood Pressure 131/73 Pulse Oximetry 95 04/03/18 23:00 04/04/18 00:00 04/04/18 01:00 Temperature 98.0 F Pulse Rate 86 78 87 Respiratory Rate 16 Blood Pressure Pulse Oximetry 98 04/04/18 02:00 04/04/18 03:00 04/04/18 04:00 Temperature Pulse Rate 80 84 84 Respiratory Rate 18 Blood Pressure 118/66 Pulse Oximetry 94 L 04/04/18 05:00 04/04/18 05:50 04/04/18 06:00 Temperature Pulse Rate 82 82 Respiratory Rate 18 Blood Pressure Pulse Oximetry 04/04/18 07:00 04/04/18 08:00 04/04/18 09:00 Temperature 98.7 F Pulse Rate 80 82 78 Respiratory Rate 20 Blood Pressure 95/59 L Pulse Oximetry 94 L 04/04/18 10:00 04/04/18 10:35 04/04/18 11:00 Temperature Pulse Rate 84 84 Respiratory Rate Blood Pressure Pulse Oximetry 94 L 04/04/18 12:00 04/04/18 13:00 04/04/18 14:00 Temperature Pulse Rate 84 82 84 Respiratory Rate 18 Blood Pressure 116/70 Pulse Oximetry 98 Intake & Output 04/03/18 04/04/18 04/04/18 18:59 06:59 18:59 Intake Total 700 / 700 260 / 260 Output Total 550 / 550 223 / 223 Balance 150 / 150 37 / 37 Weight 105.5 kg Intake: Oral 700 / 700 240 / 240 Other Output: Urine 540 / 540 200 / 200 Wound Drainage Right Lower Abdomen Other: Other Intake Source Saline Solution Date of Last Bowel Movement 04/02/18 04/04/18 04/02/18 # Bowel Movements 1 # Incontinent Bowel Movements 1 # Emeses 3 - Constitutional mild distress - Routine Abdominal Exam Present: soft Results - Labs CBC & Chem 7: 04/04/18 05:58 04/04/18 05:58 Laboratory Results - last 24 hr 04/03/18 04/04/18 04/04/18 22:16 05:58 05:58 WBC 15.3 H RBC 3.44 L Hgb 9.8 L Hct 30.3 L MCV 88.1 MCH 28.4 MCHC 32.2 RDW 15.4 Plt Count 388 MPV 8.9 Neut % (Auto) 85.2 H Lymph % (Auto) 6.6 L [place] % (Auto) 7.8 Eos % (Auto) 0.0 Baso % (Auto) 0.4 Neut # (Auto) 13.1 H Lymph # (Auto) 1.0 [place] # (Auto) 1.2 H Eos # (Auto) 0.0 Baso # (Auto) 0.1 WBC Differential . Differential Comment Auto diff final Sodium 134 L Potassium 4.4 Chloride 98 Carbon Dioxide 28.0 Anion Gap 8 BUN 11 Creatinine 1.05 Estimated GFR 70 L POC Glucose 163 H Random Glucose 138 H Calcium 8.1 L Total Bilirubin 3.0 H Direct Bilirubin 2.4 H Indirect Bilirubin 0.6 AST 228 H ALT 170 H Alkaline Phosphatase 697 H Total Protein 6.4 Albumin 2.1 L Lipase 39 L 04/04/18 04/04/18 08:20 11:31 WBC RBC Hgb Hct MCV MCH MCHC RDW Plt Count MPV Neut % (Auto) Lymph % (Auto) [place] % (Auto) Eos % (Auto) Baso % (Auto) Neut # (Auto) Lymph # (Auto) [place] # (Auto) Eos # (Auto) Baso # (Auto) WBC Differential Differential Comment Sodium Potassium Chloride Carbon Dioxide Anion Gap BUN Creatinine Estimated GFR POC Glucose 138 H 186 H Random Glucose Calcium Total Bilirubin Direct Bilirubin Indirect Bilirubin AST ALT Alkaline Phosphatase Total Protein Albumin Lipase Microbiology 04/03/18 11:02 Blood - Peripheral Aerobic Blood Culture - Preliminary No growth in 1 day 04/03/18 11:02 Blood - Peripheral Anaerobic Blood Culture - Preliminary No growth in 1 day 04/03/18 11:09 Blood - Peripheral Aerobic Blood Culture - Preliminary No growth in 1 day 04/03/18 11:09 Blood - Peripheral Anaerobic Blood Culture - Preliminary No growth in 1 day 04/02/18 20:10 Clean Catch Urine Urine Culture - Final No growth in 48 hours - Imaging Impressions Cholangiopancreatography MRI 04/03/18 17:20 CONCLUSION: 1. Numerous filling defects within the central intrahepatic biliary ducts, common hepatic ducts, and common bile ducts. These represent stones and/or thrombus/hemorrhage. The linear defects are more likely related to hemorrhage. 2. Dilatation of the gallbladder with thickened gallbladder wall and a cholecystostomy tube in place. There is heterogeneous material within the gallbladder. - Procedures 03/22- cholecystostomy tube placement 03/23- cardiac cath Assessment and Plan - Assessment (1) Intractable abdominal pain Code(s): R10.9 - Unspecified abdominal pain Status: Acute (2) NSTEMI (non-ST elevated myocardial infarction) Code(s): I21.4 - Non-ST elevation (NSTEMI) myocardial infarction Status: Acute (3) Afib Code(s): I48.91 - Unspecified atrial fibrillation Status: Acute (4) Cholecystitis Code(s): K81.9 - Cholecystitis, unspecified Status: Acute Plan: Increasing LFT's with multiple filling defects in CHD and CBD; probable combination stones and hemorrhage; spoke with Dr. Pérez and contacted Dr. Wright; although high risk, needs at least a stent placed to drain CBD; not sure whether PTC would be an option, as CBD is not grossly dilated.
--- NOTE | 2018-04-04 23:29 | P.PNCA ---
Subjective Interval history: No events overnight Abdominal pain better, no emesis Medications and Allergies Active Medications: Active Medications Acetaminophen (Tylenol) 650 mg PO Q4H PRN PRN Reason: Temp > 100.4 Last Admin: 03/27/18 09:04 Dose: 650 mg Al Hydroxide/Mg Hydroxide (Milk Of Magnesia Liq) 30 ml PO Q12H PRN PRN Reason: Mild Constipation Last Admin: 03/25/18 15:47 Dose: 30 ml Aspirin (Ecotrin) 81 mg PO DAILY [facility] Last Admin: 04/04/18 09:52 Dose: 81 mg Atorvastatin Calcium (Lipitor) 20 mg PO DAILY [facility] Last Admin: 04/04/18 09:53 Dose: 20 mg Bisacodyl (Dulcolax Supp) 10 mg RECTAL DAILY PRN PRN Reason: SEVERE CONSITIPATION Last Admin: 04/03/18 14:07 Dose: 10 mg Bisacodyl (Dulcolax Ec) 10 mg PO ONCE ONE Last Admin: 03/30/18 17:35 Dose: 10 mg Dextrose (D50w Vial) 50 ml IV.PUSH UNSCH PRN PRN Reason: PER HYPOGLYCEMIA PROTOCOL Diltiazem HCl (Cardizem) 30 mg PO QID [facility] Last Admin: 04/04/18 21:51 Dose: 30 mg Enoxaparin Sodium (Lovenox Inj) 120 mg SQ Q12HR [facility] Last Admin: 04/04/18 21:51 Dose: 120 mg Glucagon (Glucagon Inj) 1 mg OTHER PRN PRN PRN Reason: for Hypoglycemia Protocol Insulin Aspart (Novolog Insulin Correctional Sugar Inj) 0 unit SQ ACHS [facility]; Protocol Last Admin: 04/04/18 21:52 Dose: Not Given Insulin Detemir (Levemir Inj) 5 unit SQ BID [facility] Last Admin: 04/04/18 21:52 Dose: Not Given Lactulose (Lactulose Liq) 30 ml PO DAILY PRN PRN Reason: SEVERE CONSITIPATION Last Admin: 03/25/18 15:47 Dose: 30 ml Magnesium Oxide (Mag-Ox) 400 mg PO BID [facility] Last Admin: 04/04/18 21:51 Dose: 400 mg Metformin HCl (Glucophage) 1,000 mg PO BID [facility] Last Admin: 04/04/18 21:51 Dose: 1,000 mg Morphine Sulfate (Morphine Inj) 2 mg IV.PUSH Q4H PRN PRN Reason: BREAKTHROUGH PAIN Last Admin: 04/03/18 11:00 Dose: 2 mg Oxycodone HCl (Roxicodone) 10 mg PO Q4H PRN PRN Reason: pain 6-10 Last Admin: 04/04/18 05:01 Dose: 10 mg Oxycodone HCl (Roxicodone) 5 mg PO Q4H PRN PRN Reason: pain 3-5 Pantoprazole Sodium (Protonix) 40 mg PO DAILY [facility] Last Admin: 04/04/18 09:52 Dose: 40 mg Potassium Chloride (K-Dur) 20 meq PO DAILY [facility] Last Admin: 04/04/18 09:52 Dose: 20 meq Prochlorperazine Edisylate (Compazine Inj) 10 mg IV.PUSH Q6H PRN PRN Reason: NAUSEA Last Admin: 04/04/18 14:54 Dose: 10 mg Senna/Docusate Sodium (Carlotta-Colace) 1 tab PO BID [facility] Last Admin: 04/04/18 21:53 Dose: Not Given Sennosides (Senokot) 17.2 mg PO Q12H PRN PRN Reason: Moderate Constipation Last Admin: 03/30/18 05:24 Dose: 17.2 mg Sodium Chloride (Ns Flush) 2 ml IV.FLUSH BID [facility] Last Admin: 04/04/18 21:53 Dose: 2 ml Sodium Chloride (Ns Flush) 2 ml IV.FLUSH PRN PRN PRN Reason: FLUSH AFTER USING IV ACCESS Last Admin: 03/26/18 02:04 Dose: 2 ml Allergies Allergy/AdvReac Type Severity Reaction Status Date / Time No Known Allergies Allergy Verified 03/19/18 10:28 Home Medications Medication Instructions Recorded Confirmed Type atorvastatin 20 mg PO DAILY 03/19/18 03/19/18 History liraglutide [Victoza 2-Sonido] 0.6 mg SUBCUT DAILY 03/19/18 03/19/18 History metformin 1,000 mg PO BID 03/19/18 03/19/18 History omeprazole-sodium bicarbonate 1 cap PO DAILY 03/19/18 03/19/18 History pantoprazole 20 mg PO DAILY 03/19/18 03/19/18 History Physical Exam Vital signs: Vital Signs 04/04/18 00:00 04/04/18 01:00 04/04/18 02:00 Temperature 98.0 F Pulse Rate 78 87 80 Respiratory Rate 16 Blood Pressure Pulse Oximetry 98 04/04/18 03:00 04/04/18 04:00 04/04/18 05:00 Temperature Pulse Rate 84 84 82 Respiratory Rate 18 Blood Pressure 118/66 Pulse Oximetry 94 L 04/04/18 05:50 04/04/18 06:00 04/04/18 07:00 Temperature Pulse Rate 82 80 Respiratory Rate 18 Blood Pressure Pulse Oximetry 04/04/18 08:00 04/04/18 09:00 04/04/18 10:00 Temperature 98.7 F Pulse Rate 82 78 84 Respiratory Rate 20 Blood Pressure 95/59 L Pulse Oximetry 94 L 04/04/18 10:35 04/04/18 11:00 04/04/18 12:00 Temperature Pulse Rate 84 84 Respiratory Rate 18 Blood Pressure 116/70 Pulse Oximetry 94 L 98 04/04/18 13:00 04/04/18 14:00 04/04/18 15:00 Temperature Pulse Rate 82 84 90 Respiratory Rate Blood Pressure Pulse Oximetry 04/04/18 16:00 04/04/18 17:00 04/04/18 18:00 Temperature 97.5 F L Pulse Rate 88 90 80 Respiratory Rate 20 Blood Pressure 111/64 Pulse Oximetry 92 L 04/04/18 19:00 04/04/18 20:00 Temperature Pulse Rate 92 H 79 Respiratory Rate 18 Blood Pressure 118/68 Pulse Oximetry 93 L Intake & Output 04/04/18 04/04/18 04/05/18 06:59 18:59 06:59 Intake Total 260 / 260 640 / 640 Output Total 223 / 223 710 / 710 Balance 37 / 37 -70 / -70 Weight 105.5 kg Intake: Oral 240 / 240 640 / 640 Other Output: Urine 200 / 200 700 / 700 Wound Drainage Right Lower Abdomen Other: Other Intake Source Saline Solution Date of Last Bowel Movement 04/04/18 04/02/18 04/04/18 # Bowel Movements 1 # Incontinent Bowel Movements 1 Narrative: GENERAL: NAD SKIN: Cool and dry, no rash. HEAD: Atraumatic. Normocephalic. No temporal or scalp tenderness. EYES: Pupils equal round and reactive. NECK: Trachea midline. Supple, nontender, no meningeal signs. CARDIOVASCULAR: Regular rate and rhythm. RESPIRATORY: Clear to auscultation bilaterally. GASTROINTESTINAL: Abdomen soft, cholecystostomy tube in place. MUSCULOSKELETAL: Extremities without clubbing, cyanosis. NEUROLOGICAL: Alert oriented 3. Nonfocal deficits. Results 04/04/18 05:58 04/04/18 05:58 Cardiac Enzymes 04/03/18 04/04/18 Range/Units 15:49 05:58 AST 257 H 228 H (15-37) U/L CBC 04/03/18 04/04/18 Range/Units 05:09 05:58 WBC 10.9 15.3 H (4.0-11.0) th/mm3 RBC 3.51 L 3.44 L (4.50-5.90) mil/mm3 Hgb 10.0 L 9.8 L (13.0-17.0) gm/dL Hct 31.0 L 30.3 L (39.0-51.0) % Plt Count 351 388 (150-450) th/mm3 Neut # (Auto) 8.6 H 13.1 H (1.8-7.7) th/mm3 Lymph # (Auto) 1.5 1.0 (1.0-4.8) th/mm3 [place] # (Auto) 0.8 1.2 H (0.0-0.9) th/mm3 Eos # (Auto) 0.0 0.0 (0.0-0.4) th/mm3 Baso # (Auto) 0.1 0.1 (0.0-0.2) th/mm3 Comprehensive Metabolic Panel 04/03/18 04/03/18 04/04/18 Range/Units 05:09 15:49 05:58 Sodium 136 134 L (136-145) meq/L Potassium 4.3 4.4 (3.5-5.1) meq/L Chloride 101 98 (98-107) meq/L Carbon Dioxide 28.2 28.0 (21.0-32.0) meq/L BUN 9 11 (7-18) mg/dL Creatinine 0.59 L 1.05 (0.60-1.30) mg/dL Calcium 7.9 L 8.1 L (8.5-10.1) mg/dL Direct Bilirubin 2.0 H 2.4 H (0.0-0.2) mg/dL Indirect Bilirubin 0.5 0.6 (0.0-0.8) mg/dL AST 257 H 228 H (15-37) U/L ALT 176 H 170 H (12-78) U/L Alkaline Phosphatase 654 H 697 H (45-117) U/L Total Protein 6.7 6.4 (6.4-8.2) g/dL Albumin 2.1 L 2.1 L (3.4-5.0) g/dL Intake and Output 04/04/18 04/04/18 04/05/18 14:59 22:59 06:59 Intake Total 640 / 640 Output Total 710 / 710 Balance -70 / -70 Intake: Oral 640 / 640 Output: Urine 700 / 700 Wound Drainage Right Lower Abdomen Other: Date of Last Bowel Movement 04/02/18 04/04/18 - Imaging and Cardiology Imaging: Impressions Cholangiopancreatography MRI 04/03/18 17:20 CONCLUSION: 1. Numerous filling defects within the central intrahepatic biliary ducts, common hepatic ducts, and common bile ducts. These represent stones and/or thrombus/hemorrhage. The linear defects are more likely related to hemorrhage. 2. Dilatation of the gallbladder with thickened gallbladder wall and a cholecystostomy tube in place. There is heterogeneous material within the gallbladder. Assessment and Plan - Assessment (1) NSTEMI (non-ST elevated myocardial infarction) Code(s): I21.4 - Non-ST elevation (NSTEMI) myocardial infarction Status: Acute (2) Afib Code(s): I48.91 - Unspecified atrial fibrillation Status: Acute (3) SIRS (systemic inflammatory response syndrome) Code(s): R65.10 - Systemic inflammatory response syndrome (SIRS) of non- infectious origin without acute organ dysfunction Status: Acute (4) Intractable abdominal pain Code(s): R10.9 - Unspecified abdominal pain Status: Acute - Plan 1) Abdominal pain/nausea/emesis Found to have cholecystitis Perc burt drain in place with relief of symptoms 2) NSTEMI Found to have multivessel CAD CT surgery evaluation Complex case with acute cholecystitis with percutaneous cholecystostomy tube Await repeat blood cultures, if negative then CABG 3) Afib New onset Started on Cardizem, heart rates controlled Eventual anti-coagulation 4) Bacteremia KELLY negative for vegetation, no signs of endocarditis 5) Lovenox full dose due to MVCAD/NSTEMI and Afib since surgery will be put off for a week 6) MRCP showing multiple stones in the common bile duct Discussed with Dr. Hall due to need for ERCP Ultimately he's high risk for any procedure due to MVCAD and elevated troponins on admission No current ACS/CHF, hemodynamically and electrically stable No other way to decrease his risk at this time as he would need this to get to revascularization by CABG From my standpoint, his bilirubin is increasing and will most likely need to undergo ERCP for relief, does not appear that it can be put off No other options at this time, may proceed as a high risk patient
[2018-04-05] MEDS: Insulin NovoLOG Aspart Correctional Sugar Inj SQ SCH ×4 (09:17→20:25)
[2018-04-05] MEDS: dilTIAZem 30 MG Tablet PO SCH ×4 (09:18→20:21)
[2018-04-05] MEDS: Magnesium Oxide 400 MG Tablet PO SCH ×2 (09:18→20:21)
[2018-04-05] MEDS: Enoxaparin Inj 120 MG/0.8 ML Syringe SQ SCH ×2 (09:18→20:23)
[2018-04-05] MEDS: Senna/Docusate Sodium 8.6/50 MG Tablet PO SCH ×2 (09:18→20:22)
[2018-04-05] MEDS: Sodium Chloride 0.9% 2 ML Flush BID IV.FLUSH SCH ×2 (09:19→20:24)
[2018-04-05] MEDS: Insulin Detemir Inj 1,000 UNIT/10 ML Vial SQ SCH ×2 (09:19→20:24)
--- NOTE | 2018-04-05 11:16 | P.PN ---
Subjective Interval history: Follow-up sepsis/cholecystitis April 04, 2018-patient seen and examined with some episode of nausea without any emesis. Afebrile. Denies any abdominal pain. April 05, 2018-patient seen and examined; denies any significant abdominal pain .no nausea or emesis this a.m. Physical Exam Vital signs: Vital Signs 04/04/18 12:00 04/04/18 13:00 04/04/18 14:00 Temperature Pulse Rate 84 82 84 Respiratory Rate 18 Blood Pressure 116/70 Pulse Oximetry 98 04/04/18 15:00 04/04/18 16:00 04/04/18 17:00 Temperature 97.5 F L Pulse Rate 90 88 90 Respiratory Rate 20 Blood Pressure 111/64 Pulse Oximetry 92 L 04/04/18 18:00 04/04/18 19:00 04/04/18 20:00 Temperature Pulse Rate 80 92 H 79 Respiratory Rate 18 Blood Pressure 118/68 Pulse Oximetry 93 L 04/04/18 21:00 04/04/18 22:00 04/04/18 23:00 Temperature Pulse Rate 80 90 80 Respiratory Rate Blood Pressure Pulse Oximetry 04/05/18 00:00 04/05/18 01:00 04/05/18 02:00 Temperature Pulse Rate 80 86 86 Respiratory Rate 16 Blood Pressure Pulse Oximetry 04/05/18 03:00 04/05/18 04:00 04/05/18 05:00 Temperature Pulse Rate 82 84 82 Respiratory Rate 16 Blood Pressure Pulse Oximetry 92 L 04/05/18 06:00 04/05/18 07:00 04/05/18 08:00 Temperature 98.9 F Pulse Rate 88 80 90 Respiratory Rate 20 Blood Pressure 109/69 Pulse Oximetry 98 04/05/18 09:08 04/05/18 10:00 04/05/18 10:42 Temperature Pulse Rate 92 H 82 Respiratory Rate Blood Pressure Pulse Oximetry 93 L Intake & Output 04/04/18 04/05/18 04/05/18 18:59 06:59 18:59 Intake Total 640 / 640 120 / 120 Output Total 710 / 710 600 / 600 Balance -70 / -70 -480 / -480 Weight 106.5 kg Intake: Oral 640 / 640 120 / 120 Output: Urine 700 / 700 600 / 600 Wound Drainage Right Lower Abdomen Other: Date of Last Bowel Movement 04/02/18 04/04/18 04/04/18 Narrative: GENERAL: NAD SKIN: Cool and dry, no rash. HEAD: Atraumatic. Normocephalic. No temporal or scalp tenderness. EYES: Pupils equal round and reactive. NECK: Trachea midline. Supple, nontender, no meningeal signs. CARDIOVASCULAR: Regular rate and rhythm. RESPIRATORY: Clear to auscultation bilaterally. GASTROINTESTINAL: Abdomen soft, cholecystostomy tube in place. MUSCULOSKELETAL: Extremities without clubbing, cyanosis. NEUROLOGICAL: Alert oriented 3. Nonfocal deficits. Results - Labs CBC & Chem 7: 04/04/18 05:58 04/04/18 05:58 Laboratory Results - last 24 hr 04/04/18 04/04/18 04/04/18 11:31 17:46 21:49 POC Glucose 186 H 186 H 150 H 04/05/18 07:57 POC Glucose 125 H Microbiology 04/03/18 11:02 Blood - Peripheral Aerobic Blood Culture - Preliminary No growth in 2 days 04/03/18 11:02 Blood - Peripheral Anaerobic Blood Culture - Preliminary No growth in 2 days 04/03/18 11:09 Blood - Peripheral Aerobic Blood Culture - Preliminary No growth in 2 days 04/03/18 11:09 Blood - Peripheral Anaerobic Blood Culture - Preliminary No growth in 2 days 04/02/18 20:10 Clean Catch Urine Urine Culture - Final No growth in 48 hours - Procedures 03/22- cholecystostomy tube placement 03/23- cardiac cath Assessment and Plan - Assessment (1) Cholecystitis Code(s): K81.9 - Cholecystitis, unspecified Status: Acute - Plan 67-year-old man with Sepsis/ Acute cholecystitis E. coli and Klebsiella pneumonia on blood cultures -03/19. S/p cholecystostomy tube drain- not a candidate for cholecystectomy at this time due to CAD and need for heart surgery. -Completed ceftriaxone 04/03. Per ID, patient can proceed to CABG if blood culture negative times 48 hours -continue with pain control as needed. -continue cholecystostomy drain care as directed. Patient may need stent placement to drain CBD versus ERCP -Appreciate input from general surgery, infectious disease specialist NSTEMI/Afib s/p cardiac cath with multivessel disease. Echo with EF 60% with no regional wall motion abnormalities. S/p KELLY with no vegetations. -CT surgery consult appreciated.Per ID, patient can proceed to CABG if blood culture negative times 48 hours -Continue ASA, Cardizem, Lipitor. DM II -continue Levemir and sliding scale and adjust as needed. DVT prophylaxis with Lovenox
--- NOTE | 2018-04-05 14:12 | P.PNCV ---
- Note Subjective/Hospital Course: 67-year-old male who presented to [facility] 03/19/18 due to nausea, vomiting and abdominal pain. He states that he was awakened at 6 a.m. with left -sided flank pain and left mid back pain radiating to the left lower quadrant. He developed nausea and vomiting secondary to the pain. he was incidentally found to have cholecystitis, perc burt tube was placed , Trop was + underwent cardiac cath by Dr Pérez : mid LAD 80%, Left Circ 70 % lesion, RCA 100% occluded in the mid portion with [id number] and right-to- right collaterals supplying the distal portion. Blood cultures grew klebsiella pneumoniae and E coli , followed by ID and recommended to at least complete one week course of IV antibiotics prior to surgery PAST MEDICAL HISTORY: Diabetes, GERD, Hyperlipidemia, morbid obesity with BMI 40, History of gastric bypass. 03/27 pt is pain free at this time , has perc burt drain US of lower ext neg for DVT, Carotid US no stenosis continues on IV antibiotics per ID : VIVIENNE cefepime IV Ceftriaxone IV once a day (stop date: 04/03/2018) after which we will repeat BCX on 04/04/18. If these repeat bcx are negative at 48 hrs and patient clinically doing well will clear him from CABG. VIVIENNE Flagyl consult PT 03/28 pain free will follow / schedule for surgery next week when cleared by ID 03/29 still has some mild right flank pain burt drain in place no chest pain 04/03 c/o of nausea and vomiting since last night , also some abdominal pain for repeat CT abdomen today also repeat Blood cultures pending 04/05 still complaining of nausea and vomiting burt drain in place Objective: Vital Signs - 24 hr 04/04/18 15:00 04/04/18 16:00 04/04/18 17:00 Temperature 97.5 F L Pulse Rate 90 88 90 Respiratory Rate 20 Blood Pressure 111/64 Pulse Oximetry 92 L 04/04/18 18:00 04/04/18 19:00 04/04/18 20:00 Temperature Pulse Rate 80 92 H 79 Respiratory Rate 18 Blood Pressure 118/68 Pulse Oximetry 93 L 04/04/18 21:00 04/04/18 22:00 04/04/18 23:00 Temperature Pulse Rate 80 90 80 Respiratory Rate Blood Pressure Pulse Oximetry 04/05/18 00:00 04/05/18 01:00 04/05/18 02:00 Temperature Pulse Rate 80 86 86 Respiratory Rate 16 Blood Pressure Pulse Oximetry 04/05/18 03:00 04/05/18 04:00 04/05/18 05:00 Temperature Pulse Rate 82 84 82 Respiratory Rate 16 Blood Pressure Pulse Oximetry 92 L 04/05/18 06:00 04/05/18 07:00 04/05/18 08:00 Temperature 98.9 F Pulse Rate 88 80 90 Respiratory Rate 20 Blood Pressure 109/69 Pulse Oximetry 98 04/05/18 09:08 04/05/18 10:00 04/05/18 10:42 Temperature Pulse Rate 92 H 82 Respiratory Rate Blood Pressure Pulse Oximetry 93 L GENERAL: A&O , ill appearing SKIN: Warm and dry. HEAD: Normocephalic. EYES: No scleral icterus. No injection or drainage. NECK: Supple, trachea midline. No JVD or lymphadenopathy. CARDIOVASCULAR: Regular rate and rhythm without murmurs, gallops, or rubs. RESPIRATORY: Breath sounds equal bilaterally. No accessory muscle use. GASTROINTESTINAL: Abdomen soft, non-tender, nondistended. + burt drain, minimal drainage MUSCULOSKELETAL: No cyanosis, or edema. BACK: Nontender without obvious deformity. No CVA tenderness. Labs: Laboratory Results - last 12 hr 04/05/18 04/05/18 07:57 12:06 POC Glucose 125 H 160 H Result Diagrams: 04/04/18 05:58 04/04/18 05:58 - Plan (1) Coronary artery disease involving [place]ka coronary artery Plan: on ASA, low dose BB eval for surgery after 04/04 per ID lovenox OOB/ PT (3) Afib Plan: in NSR (4) Cholecystitis Plan: s/p perc drain general surgery following
--- NOTE | 2018-04-05 22:43 | P.PN ---
Subjective Interval history: Await GI input Physical Exam Vital signs: Vital Signs 04/04/18 23:00 04/05/18 00:00 04/05/18 01:00 Temperature Pulse Rate 80 80 86 Respiratory Rate 16 Blood Pressure Pulse Oximetry 04/05/18 02:00 04/05/18 03:00 04/05/18 04:00 Temperature Pulse Rate 86 82 84 Respiratory Rate 16 Blood Pressure Pulse Oximetry 92 L 04/05/18 05:00 04/05/18 06:00 04/05/18 07:00 Temperature Pulse Rate 82 88 80 Respiratory Rate Blood Pressure Pulse Oximetry 04/05/18 08:00 04/05/18 09:08 04/05/18 10:00 Temperature 98.9 F Pulse Rate 90 92 H 82 Respiratory Rate 20 Blood Pressure 109/69 Pulse Oximetry 98 04/05/18 10:42 04/05/18 11:00 04/05/18 12:00 Temperature 98.9 F Pulse Rate 88 80 Respiratory Rate 20 Blood Pressure 106/66 Pulse Oximetry 93 L 98 04/05/18 13:00 04/05/18 14:00 04/05/18 15:00 Temperature Pulse Rate 78 80 82 Respiratory Rate Blood Pressure Pulse Oximetry 04/05/18 16:00 04/05/18 17:00 04/05/18 18:00 Temperature 97.8 F Pulse Rate 82 86 86 Respiratory Rate 20 Blood Pressure 114/67 Pulse Oximetry 98 04/05/18 19:28 04/05/18 20:00 04/05/18 21:00 Temperature 98.8 F Pulse Rate 79 80 76 Respiratory Rate 16 Blood Pressure 114/66 Pulse Oximetry 93 L 04/05/18 22:00 Temperature Pulse Rate 76 Respiratory Rate Blood Pressure Pulse Oximetry Intake & Output 04/05/18 04/05/18 04/06/18 06:59 18:59 06:59 Intake Total 120 / 120 880 / 880 Output Total 600 / 600 1000 / 1000 Balance -480 / -480 -120 / -120 Weight 106.5 kg Intake: Oral 120 / 120 880 / 880 Output: Urine 600 / 600 1000 / 1000 Other: Date of Last Bowel Movement 04/04/18 04/04/18 04/05/18 Results - Labs CBC & Chem 7: 04/04/18 05:58 04/04/18 05:58 Laboratory Results - last 24 hr 04/05/18 04/05/18 04/05/18 07:57 12:06 15:39 POC Glucose 125 H 160 H 130 H 04/05/18 20:10 POC Glucose 205 H Microbiology 04/03/18 11:02 Blood - Peripheral Aerobic Blood Culture - Preliminary No growth in 2 days 04/03/18 11:02 Blood - Peripheral Anaerobic Blood Culture - Preliminary No growth in 2 days 04/03/18 11:09 Blood - Peripheral Aerobic Blood Culture - Preliminary No growth in 2 days 04/03/18 11:09 Blood - Peripheral Anaerobic Blood Culture - Preliminary No growth in 2 days - Procedures 03/22- cholecystostomy tube placement 03/23- cardiac cath Assessment and Plan - Assessment (1) Intractable abdominal pain Code(s): R10.9 - Unspecified abdominal pain Status: Acute (2) NSTEMI (non-ST elevated myocardial infarction) Code(s): I21.4 - Non-ST elevation (NSTEMI) myocardial infarction Status: Acute (3) Afib Code(s): I48.91 - Unspecified atrial fibrillation Status: Acute (4) Cholecystitis Code(s): K81.9 - Cholecystitis, unspecified Status: Acute Plan: Increasing LFT's with multiple filling defects in CHD and CBD; probable combination stones and hemorrhage; spoke with Dr. Pérez and contacted Dr. Wright; although high risk, needs at least a stent placed to drain CBD; not sure whether PTC would be an option, as CBD is not grossly dilated.
--- NOTE | 2018-04-05 23:54 | P.PNCA ---
Subjective Interval history: Feels better today No emesis, less nauseated No chest pain Medications and Allergies Active Medications: Active Medications Acetaminophen (Tylenol) 650 mg PO Q4H PRN PRN Reason: Temp > 100.4 Last Admin: 03/27/18 09:04 Dose: 650 mg Al Hydroxide/Mg Hydroxide (Milk Of Magnesia Liq) 30 ml PO Q12H PRN PRN Reason: Mild Constipation Last Admin: 03/25/18 15:47 Dose: 30 ml Aspirin (Ecotrin) 81 mg PO DAILY [facility] Last Admin: 04/05/18 09:18 Dose: 81 mg Atorvastatin Calcium (Lipitor) 20 mg PO DAILY [facility] Last Admin: 04/05/18 09:18 Dose: 20 mg Bisacodyl (Dulcolax Supp) 10 mg RECTAL DAILY PRN PRN Reason: SEVERE CONSITIPATION Last Admin: 04/03/18 14:07 Dose: 10 mg Bisacodyl (Dulcolax Ec) 10 mg PO ONCE ONE Last Admin: 03/30/18 17:35 Dose: 10 mg Dextrose (D50w Vial) 50 ml IV.PUSH UNSCH PRN PRN Reason: PER HYPOGLYCEMIA PROTOCOL Diltiazem HCl (Cardizem) 30 mg PO QID [facility] Last Admin: 04/05/18 20:21 Dose: 30 mg Enoxaparin Sodium (Lovenox Inj) 120 mg SQ Q12HR [facility] Last Admin: 04/05/18 20:23 Dose: 120 mg Glucagon (Glucagon Inj) 1 mg OTHER PRN PRN PRN Reason: for Hypoglycemia Protocol Insulin Aspart (Novolog Insulin Correctional Sugar Inj) 0 unit SQ ACHS [facility]; Protocol Last Admin: 04/05/18 20:25 Dose: 4 unit Insulin Detemir (Levemir Inj) 5 unit SQ BID [facility] Last Admin: 04/05/18 20:24 Dose: 5 unit Lactulose (Lactulose Liq) 30 ml PO DAILY PRN PRN Reason: SEVERE CONSITIPATION Last Admin: 03/25/18 15:47 Dose: 30 ml Magnesium Oxide (Mag-Ox) 400 mg PO BID [facility] Last Admin: 04/05/18 20:21 Dose: 400 mg Metformin HCl (Glucophage) 1,000 mg PO BID [facility] Last Admin: 04/05/18 20:21 Dose: 1,000 mg Morphine Sulfate (Morphine Inj) 2 mg IV.PUSH Q4H PRN PRN Reason: BREAKTHROUGH PAIN Last Admin: 04/03/18 11:00 Dose: 2 mg Oxycodone HCl (Roxicodone) 10 mg PO Q4H PRN PRN Reason: pain 6-10 Last Admin: 04/04/18 05:01 Dose: 10 mg Oxycodone HCl (Roxicodone) 5 mg PO Q4H PRN PRN Reason: pain 3-5 Last Admin: 04/05/18 18:08 Dose: 5 mg Pantoprazole Sodium (Protonix) 40 mg PO DAILY [facility] Last Admin: 04/05/18 09:18 Dose: 40 mg Potassium Chloride (K-Dur) 20 meq PO DAILY [facility] Last Admin: 04/05/18 09:18 Dose: 20 meq Prochlorperazine Edisylate (Compazine Inj) 10 mg IV.PUSH Q6H PRN PRN Reason: NAUSEA Last Admin: 04/05/18 12:34 Dose: 10 mg Senna/Docusate Sodium (Carlotta-Colace) 1 tab PO BID [facility] Last Admin: 04/05/18 20:22 Dose: 1 tab Sennosides (Senokot) 17.2 mg PO Q12H PRN PRN Reason: Moderate Constipation Last Admin: 03/30/18 05:24 Dose: 17.2 mg Sodium Chloride (Ns Flush) 2 ml IV.FLUSH BID [facility] Last Admin: 04/05/18 20:24 Dose: 2 ml Sodium Chloride (Ns Flush) 2 ml IV.FLUSH PRN PRN PRN Reason: FLUSH AFTER USING IV ACCESS Last Admin: 03/26/18 02:04 Dose: 2 ml Allergies Allergy/AdvReac Type Severity Reaction Status Date / Time No Known Allergies Allergy Verified 03/19/18 10:28 Home Medications Medication Instructions Recorded Confirmed Type atorvastatin 20 mg PO DAILY 03/19/18 03/19/18 History liraglutide [Victoza 2-Sonido] 0.6 mg SUBCUT DAILY 03/19/18 03/19/18 History metformin 1,000 mg PO BID 03/19/18 03/19/18 History omeprazole-sodium bicarbonate 1 cap PO DAILY 03/19/18 03/19/18 History pantoprazole 20 mg PO DAILY 03/19/18 03/19/18 History Physical Exam Vital signs: Vital Signs 04/05/18 00:00 04/05/18 01:00 04/05/18 02:00 Temperature Pulse Rate 80 86 86 Respiratory Rate 16 Blood Pressure Pulse Oximetry 04/05/18 03:00 04/05/18 04:00 04/05/18 05:00 Temperature Pulse Rate 82 84 82 Respiratory Rate 16 Blood Pressure Pulse Oximetry 92 L 04/05/18 06:00 04/05/18 07:00 04/05/18 08:00 Temperature 98.9 F Pulse Rate 88 80 90 Respiratory Rate 20 Blood Pressure 109/69 Pulse Oximetry 98 04/05/18 09:08 04/05/18 10:00 04/05/18 10:42 Temperature Pulse Rate 92 H 82 Respiratory Rate Blood Pressure Pulse Oximetry 93 L 04/05/18 11:00 04/05/18 12:00 04/05/18 13:00 Temperature 98.9 F Pulse Rate 88 80 78 Respiratory Rate 20 Blood Pressure 106/66 Pulse Oximetry 98 04/05/18 14:00 04/05/18 15:00 04/05/18 16:00 Temperature 97.8 F Pulse Rate 80 82 82 Respiratory Rate 20 Blood Pressure 114/67 Pulse Oximetry 98 04/05/18 17:00 04/05/18 18:00 04/05/18 19:28 Temperature Pulse Rate 86 86 79 Respiratory Rate Blood Pressure Pulse Oximetry 04/05/18 20:00 04/05/18 21:00 04/05/18 22:00 Temperature 98.8 F Pulse Rate 80 76 76 Respiratory Rate 16 Blood Pressure 114/66 Pulse Oximetry 93 L 04/05/18 23:00 04/05/18 23:46 Temperature Pulse Rate 72 75 Respiratory Rate 16 Blood Pressure 103/64 Pulse Oximetry 93 L Intake & Output 04/05/18 04/05/18 04/06/18 06:59 18:59 06:59 Intake Total 120 / 120 880 / 880 Output Total 600 / 600 1000 / 1000 Balance -480 / -480 -120 / -120 Weight 106.5 kg Intake: Oral 120 / 120 880 / 880 Output: Urine 600 / 600 1000 / 1000 Other: Date of Last Bowel Movement 04/04/18 04/04/18 04/05/18 Narrative: GENERAL: NAD, AAOx3 SKIN: Warm and dry. HEAD: Atraumatic. Normocephalic. EYES: Pupils equal and round. No scleral icterus. No injection or drainage. ENT: No nasal bleeding or discharge. Mucous membranes pink and moist. NECK: Trachea midline. No JVD. CARDIOVASCULAR: Irregularly irregular RESPIRATORY: No accessory muscle use. Clear to auscultation. Breath sounds equal bilaterally. GASTROINTESTINAL: Abdomen soft, mild tender RUQ, nondistended. Hepatic and splenic margins not palpable. MUSCULOSKELETAL: Extremities without clubbing, cyanosis, or edema. No obvious deformities. NEUROLOGICAL: Awake and alert. No obvious cranial nerve deficits. Motor grossly within normal limits. Five out of 5 muscle strength in the arms and legs. Normal speech. PSYCHIATRIC: Appropriate mood and affect; insight and judgment normal. Results 04/04/18 05:58 04/04/18 05:58 Cardiac Enzymes 04/04/18 Range/Units 05:58 AST 228 H (15-37) U/L CBC 04/04/18 Range/Units 05:58 WBC 15.3 H (4.0-11.0) th/mm3 RBC 3.44 L (4.50-5.90) mil/mm3 Hgb 9.8 L (13.0-17.0) gm/dL Hct 30.3 L (39.0-51.0) % Plt Count 388 (150-450) th/mm3 Neut # (Auto) 13.1 H (1.8-7.7) th/mm3 Lymph # (Auto) 1.0 (1.0-4.8) th/mm3 [place] # (Auto) 1.2 H (0.0-0.9) th/mm3 Eos # (Auto) 0.0 (0.0-0.4) th/mm3 Baso # (Auto) 0.1 (0.0-0.2) th/mm3 Comprehensive Metabolic Panel 04/04/18 Range/Units 05:58 Sodium 134 L (136-145) meq/L Potassium 4.4 (3.5-5.1) meq/L Chloride 98 (98-107) meq/L Carbon Dioxide 28.0 (21.0-32.0) meq/L BUN 11 (7-18) mg/dL Creatinine 1.05 (0.60-1.30) mg/dL Calcium 8.1 L (8.5-10.1) mg/dL Direct Bilirubin 2.4 H (0.0-0.2) mg/dL Indirect Bilirubin 0.6 (0.0-0.8) mg/dL AST 228 H (15-37) U/L ALT 170 H (12-78) U/L Alkaline Phosphatase 697 H (45-117) U/L Total Protein 6.4 (6.4-8.2) g/dL Albumin 2.1 L (3.4-5.0) g/dL Intake and Output 04/05/18 04/05/18 04/06/18 14:59 22:59 06:59 Intake Total 880 / 880 Output Total 1000 / 1000 Balance -120 / -120 Intake: Oral 880 / 880 Output: Urine 1000 / 1000 Other: Date of Last Bowel Movement 04/04/18 04/05/18 04/05/18 Assessment and Plan - Assessment (1) NSTEMI (non-ST elevated myocardial infarction) Code(s): I21.4 - Non-ST elevation (NSTEMI) myocardial infarction Status: Acute (2) Afib Code(s): I48.91 - Unspecified atrial fibrillation Status: Acute (3) SIRS (systemic inflammatory response syndrome) Code(s): R65.10 - Systemic inflammatory response syndrome (SIRS) of non- infectious origin without acute organ dysfunction Status: Acute (4) Intractable abdominal pain Code(s): R10.9 - Unspecified abdominal pain Status: Acute - Plan 1) Abdominal pain/nausea/emesis Found to have cholecystitis Perc burt drain in place with relief of symptoms 2) NSTEMI Found to have multivessel CAD CT surgery evaluation Complex case with acute cholecystitis with percutaneous cholecystostomy tube Await repeat blood cultures, if negative then CABG 3) Afib New onset Started on Cardizem, heart rates controlled Eventual anti-coagulation 4) Bacteremia KELLY negative for vegetation, no signs of endocarditis 5) Lovenox full dose due to MVCAD/NSTEMI and Afib since surgery will be put off for a week 6) MRCP showing multiple stones in the common bile duct Discussed with Dr. Hall due to need for ERCP Ultimately he's high risk for any procedure due to MVCAD and elevated troponins on admission No current ACS/CHF, hemodynamically and electrically stable No other way to decrease his risk at this time as he would need this to get to revascularization by CABG From my standpoint, his bilirubin is increasing, does not appear to be an ERCP candidate per GI due to previous gastric bypass Await GI options for common bile duct stones If procedure is needed, he would be high risk, but if no other options then needs to proceed 7) If concerns over the holiday weekend, please call the service for covering physician
[2018-04-06 07:32] LABS: Baso # (Auto) 0.1 th/mm3 (0.0-0.2); Baso % (Auto) 0.8 % (0.0-2.0); Eos # (Auto) 0.1 th/mm3 (0.0-0.4); Eos % (Auto) 0.5 % (0.0-4.0); Hematocrit 27.7 % (39.0-51.0); Lymph % (Auto) 18.5 % (9.0-44.0); Mean Corpuscular HGB Conc 32.3 % (32.0-36.0); Mean Corpuscular Hemoglobin 28.6 pg (27.0-34.0); Mean Corpuscular Volume 88.5 fL (80.0-100.0); Mono # (Auto) 1.1 th/mm3 (0.0-0.9); Mono % (Auto) 9.9 % (0.0-8.0); Neut # (Auto) 7.5 th/mm3 (1.8-7.7); Neut % (Auto) 70.3 % (16.0-70.0); Platelet Count 414 th/mm3 (150-450); Red Blood Count 3.13 mil/mm3 (4.50-5.90); Red Cell Distribution Width 15.4 % (11.6-17.2); White Blood Count 10.7 th/mm3 (4.0-11.0)
[2018-04-06 08:11] LABS: Total Protein 6.5 g/dL (6.4-8.2)
[2018-04-06] MEDS: Enoxaparin Inj 120 MG/0.8 ML Syringe SQ SCH ×2 (08:18→21:40)
[2018-04-06] MEDS: Magnesium Oxide 400 MG Tablet PO SCH ×2 (08:19→21:40)
[2018-04-06] MEDS: Insulin Detemir Inj 1,000 UNIT/10 ML Vial SQ SCH ×2 (08:19→21:49)
[2018-04-06] MEDS: dilTIAZem 30 MG Tablet PO SCH ×4 (08:19→21:40)
[2018-04-06] MEDS: Insulin NovoLOG Aspart Correctional Sugar Inj SQ SCH ×4 (08:20→21:42)
[2018-04-06] MEDS: Sodium Chloride 0.9% 2 ML Flush BID IV.FLUSH SCH ×2 (08:20→21:40)
[2018-04-06] MEDS: Senna/Docusate Sodium 8.6/50 MG Tablet PO SCH ×2 (10:45→21:40)
--- NOTE | 2018-04-06 12:53 | P.PN ---
Subjective Interval history: Follow-up sepsis/cholecystitis April 04, 2018-patient seen and examined with some episode of nausea without any emesis. Afebrile. Denies any abdominal pain. April 05, 2018-patient seen and examined; denies any significant abdominal pain .no nausea or emesis this a.m. April 06, 2018-patient seen and examined, now with gross hematuria. No shortness of breath or chest pain. Physical Exam Vital signs: Vital Signs 04/05/18 13:00 04/05/18 14:00 04/05/18 15:00 Temperature Pulse Rate 78 80 82 Respiratory Rate Blood Pressure Pulse Oximetry 04/05/18 16:00 04/05/18 17:00 04/05/18 18:00 Temperature 97.8 F Pulse Rate 82 86 86 Respiratory Rate 20 Blood Pressure 114/67 Pulse Oximetry 98 04/05/18 19:28 04/05/18 20:00 04/05/18 21:00 Temperature 98.8 F Pulse Rate 79 80 76 Respiratory Rate 16 Blood Pressure 114/66 Pulse Oximetry 93 L 04/05/18 22:00 04/05/18 23:00 04/05/18 23:46 Temperature Pulse Rate 76 72 75 Respiratory Rate 16 Blood Pressure 103/64 Pulse Oximetry 93 L 04/06/18 00:00 04/06/18 01:00 04/06/18 02:00 Temperature Pulse Rate 74 70 70 Respiratory Rate Blood Pressure Pulse Oximetry 04/06/18 03:00 04/06/18 03:41 04/06/18 04:00 Temperature Pulse Rate 74 76 78 Respiratory Rate 16 Blood Pressure 113/68 Pulse Oximetry 94 L 04/06/18 05:00 04/06/18 06:00 04/06/18 07:00 Temperature Pulse Rate 74 68 70 Respiratory Rate Blood Pressure Pulse Oximetry 04/06/18 08:00 04/06/18 09:00 04/06/18 10:00 Temperature 98.9 F Pulse Rate 82 82 84 Respiratory Rate 20 Blood Pressure 111/67 Pulse Oximetry 93 L 04/06/18 11:00 04/06/18 12:00 Temperature Pulse Rate 70 76 Respiratory Rate 18 Blood Pressure Pulse Oximetry 96 Intake & Output 04/05/18 04/06/18 04/06/18 18:59 06:59 18:59 Intake Total 880 / 880 480 / 480 Output Total 1000 / 1000 750 / 750 Balance -120 / -120 -270 / -270 Weight 105 kg Intake: Oral 880 / 880 480 / 480 Output: Urine 1000 / 1000 750 / 750 Wound Drainage 0 / 0 Right Lower Abdomen 0 / 0 Other: Date of Last Bowel Movement 04/04/18 04/05/18 04/05/18 Narrative: GENERAL: NAD, AAOx3 SKIN: Warm and dry. HEAD: Atraumatic. Normocephalic. EYES: Pupils equal and round. No scleral icterus. No injection or drainage. ENT: No nasal bleeding or discharge. Mucous membranes pink and moist. NECK: Trachea midline. No JVD. CARDIOVASCULAR: Irregularly irregular RESPIRATORY: No accessory muscle use. Clear to auscultation. Breath sounds equal bilaterally. GASTROINTESTINAL: Abdomen soft, mild tender RUQ, nondistended. Hepatic and splenic margins not palpable. MUSCULOSKELETAL: Extremities without clubbing, cyanosis, or edema. No obvious deformities. NEUROLOGICAL: Awake and alert. No obvious cranial nerve deficits. Motor grossly within normal limits. Five out of 5 muscle strength in the arms and legs. Normal speech. PSYCHIATRIC: Appropriate mood and affect; insight and judgment normal. Results - Labs CBC & Chem 7: 04/06/18 07:17 04/04/18 05:58 Laboratory Results - last 24 hr 04/05/18 04/05/18 04/06/18 15:39 20:10 07:17 WBC 10.7 RBC 3.13 L Hgb 9.0 L Hct 27.7 L MCV 88.5 MCH 28.6 MCHC 32.3 RDW 15.4 Plt Count 414 MPV 8.0 Neut % (Auto) 70.3 H Lymph % (Auto) 18.5 [place] % (Auto) 9.9 H Eos % (Auto) 0.5 Baso % (Auto) 0.8 Neut # (Auto) 7.5 Lymph # (Auto) 2.0 [place] # (Auto) 1.1 H Eos # (Auto) 0.1 Baso # (Auto) 0.1 WBC Differential . Differential Comment Auto diff final POC Glucose 130 H 205 H Total Bilirubin Direct Bilirubin Indirect Bilirubin AST ALT Alkaline Phosphatase Total Protein Albumin 04/06/18 04/06/18 04/06/18 07:17 08:04 11:27 WBC RBC Hgb Hct MCV MCH MCHC RDW Plt Count MPV Neut % (Auto) Lymph % (Auto) [place] % (Auto) Eos % (Auto) Baso % (Auto) Neut # (Auto) Lymph # (Auto) [place] # (Auto) Eos # (Auto) Baso # (Auto) WBC Differential Differential Comment POC Glucose 131 H 194 H Total Bilirubin 0.7 Direct Bilirubin 0.4 H Indirect Bilirubin 0.3 AST 51 H ALT 91 H Alkaline Phosphatase 553 H Total Protein 6.5 Albumin 2.0 L Microbiology 04/03/18 11:02 Blood - Peripheral Aerobic Blood Culture - Preliminary No growth in 3 days 04/03/18 11:02 Blood - Peripheral Anaerobic Blood Culture - Preliminary No growth in 3 days 04/03/18 11:09 Blood - Peripheral Aerobic Blood Culture - Preliminary No growth in 3 days 04/03/18 11:09 Blood - Peripheral Anaerobic Blood Culture - Preliminary No growth in 3 days - Procedures 03/22- cholecystostomy tube placement 03/23- cardiac cath Assessment and Plan - Assessment (1) Cholecystitis Code(s): K81.9 - Cholecystitis, unspecified Status: Acute - Plan 67-year-old man with Sepsis/ Acute cholecystitis E. coli and Klebsiella pneumonia on blood cultures -03/19. S/p cholecystostomy tube drain- not a candidate for cholecystectomy at this time due to CAD and need for heart surgery. -Completed ceftriaxone 04/03. Per ID, patient can proceed to CABG if blood culture negative times 48 hours -continue with pain control as needed. -continue cholecystostomy drain care as directed. Patient may need stent placement to drain CBD versus ERCP -Appreciate input from general surgery, infectious disease specialist -LFTs trending down NSTEMI/Afib s/p cardiac cath with multivessel disease. Echo with EF 60% with no regional wall motion abnormalities. S/p KELLY with no vegetations. -CT surgery consult appreciated.Per ID, patient can proceed to CABG if blood culture negative times 48 hours -Continue ASA, Cardizem, Lipitor. Hematuria -We will consult urology -Continue to monitor H&H and transfuse accordingly DM II -continue Levemir and sliding scale and adjust as needed. DVT prophylaxis with Lovenox
[2018-04-07 06:46] LABS: Baso # (Auto) 0.2 th/mm3 (0.0-0.2); Baso % (Auto) 1.4 % (0.0-2.0); Eos # (Auto) 0.1 th/mm3 (0.0-0.4); Hematocrit 26.6 % (39.0-51.0); Hemoglobin 8.9 gm/dL (13.0-17.0); Lymph # (Auto) 2.3 th/mm3 (1.0-4.8); Lymph % (Auto) 19.8 % (9.0-44.0); Mean Corpuscular HGB Conc 33.4 % (32.0-36.0); Mean Corpuscular Hemoglobin 29.1 pg (27.0-34.0); Mono # (Auto) 1.1 th/mm3 (0.0-0.9); Mono % (Auto) 9.3 % (0.0-8.0); Neut # (Auto) 8.1 th/mm3 (1.8-7.7); Neut % (Auto) 68.5 % (16.0-70.0); Platelet Count 411 th/mm3 (150-450); Red Blood Count 3.06 mil/mm3 (4.50-5.90); Red Cell Distribution Width 15.4 % (11.6-17.2); White Blood Count 11.8 th/mm3 (4.0-11.0)
[2018-04-07 07:16] LABS: Alanine Aminotransferase 80 U/L (12-78); Albumin 2.1 g/dL (3.4-5.0); Anion Gap 8 meq/L (5-15); Aspartate Aminotransferase 65 U/L (15-37); Calcium 8.1 mg/dL (8.5-10.1); Carbon Dioxide 30.4 meq/L (21.0-32.0); Chloride 102 meq/L (98-107); Glomerular Filtration Rate Greater Than 89 mL/min (>89); Glucose,Random 80 mg/dL (74-106); Potassium 4.1 meq/L (3.5-5.1); Sodium 140 meq/L (136-145)
[2018-04-07 07:22] LABS: Alkaline Phosphatase 456 U/L (45-117); Blood Urea Nitrogen 13 mg/dL (7-18); Total Protein 6.4 g/dL (6.4-8.2)
[2018-04-07] MEDS: Magnesium Oxide 400 MG Tablet PO SCH ×2 (08:47→21:00)
[2018-04-07] MEDS: dilTIAZem 30 MG Tablet PO SCH ×4 (08:47→21:00)
[2018-04-07] MEDS: Enoxaparin Inj 120 MG/0.8 ML Syringe SQ SCH (08:47)
[2018-04-07] MEDS: Senna/Docusate Sodium 8.6/50 MG Tablet PO SCH ×2 (08:47→21:00)
[2018-04-07] MEDS: Sodium Chloride 0.9% 2 ML Flush BID IV.FLUSH SCH ×2 (08:48→21:00)
[2018-04-07] MEDS: Insulin Detemir Inj 1,000 UNIT/10 ML Vial SQ SCH ×2 (08:48→21:00)
--- NOTE | 2018-04-07 10:51 | MB ---
cc: Emigdio Villafana DO DATE: 04/07/2018 HISTORY OF PRESENT ILLNESS: Mr. Bridges is a pleasant 67-year-old male who was admitted at the beginning of 03/2018 with abdominal pain and nausea, vomiting. He was initially diagnosed with cholecystitis and a T-tube was then placed. He was not a candidate at that time for cholecystectomy due to his underlying heart disease. Three days ago, he did develop the onset of gross hematuria and has had ongoing hematuria since this time. He denies any trouble with urination and denies any blood clots at the present time. He denies any prior history of gross hematuria. He does admit to smoking approximately 25 years ago, but has since quit. He denies any history of kidney stones or infections. ALLERGIES: NO KNOWN DRUG ALLERGIES. PAST MEDICAL HISTORY: Noted for diabetes, GERD, hypercholesterolemia, coronary artery disease with a history of atrial fibrillation and non-ST elevation [place]. PAST SURGICAL HISTORY: He has a history of gastric bypass surgery. SOCIAL HISTORY: Former smoker. Denies drinking. Denies using any drugs. MEDICATIONS: Please refer to the chart. REVIEW OF SYSTEMS: Notes gross hematuria, vague lower abdominal pain. Denies gait disturbances, bleeding disorders, headaches. Denies chest pain at the present time. Denies constipation or diarrhea. Denies psychiatric problems. Remaining review of systems reviewed and were negative. PHYSICAL EXAMINATION: VITAL SIGNS: Temperature 98, heart rate 72, respiratory rate 16, 117/67 is his blood pressure, 92% on room air. GENERAL: He is a slightly obese 67-year-old male in no acute distress. HEENT: Normocephalic, atraumatic. Pupils equal, round and reactive to light. Extraocular movements intact. NECK: Supple. HEART: Regular rate and rhythm. LUNGS: Clear. ABDOMEN: Soft, nontender, nondistended. GENITOURINARY: Uncircumcised phallus. Testes are descended. EXTREMITIES: Show 1+ edema. NEUROLOGIC: Cranial nerves 2-12 are intact. LABORATORY DATA: White count 11.8, hemoglobin 8.9, hematocrit 26.2, platelet count of 411. PT is 12.3, INR 1.2, PTT is 36.1. BUN of 140, potassium 4.1, chloride 102, CO2 of 30.4, BUN of 13, creatinine 0.72, glucose of 117. Urinalysis on admission was negative for blood. On 04/02/2018, it was noted to have numerous red cells. IMAGING: CT scan of the abdomen and pelvis on 03/22/2018, normal kidneys and bladder were noted. ASSESSMENT AND PLAN: A 67-year-old male with the onset of gross hematuria for the last 3 days without clots. Recommend holding aspirin and Lovenox for now. Start gentle IV hydration. Would not place a Pavon catheter and start CBI until the patient starts having trouble with urination or having clot retention. We will obtain a renal-bladder ultrasound. Hemoglobin has been stable around 9 and will follow this. We will need cystoscopy at some point. We will continue to follow closely with you, and I thank you for the consult and allowing me to participate in the care of this patient. DO Alison Silva , 10:05 AM , 10:13 AM
[2018-04-07] MEDS: Insulin NovoLOG Aspart Correctional Sugar Inj SQ SCH ×4 (11:46→21:00)
--- NOTE | 2018-04-07 12:18 | P.PN ---
Subjective Interval history: Follow-up sepsis/cholecystitis April 04, 2018-patient seen and examined with some episode of nausea without any emesis. Afebrile. Denies any abdominal pain. April 05, 2018-patient seen and examined; denies any significant abdominal pain .no nausea or emesis this a.m. April 06, 2018-patient seen and examined, now with gross hematuria. No shortness of breath or chest pain. April 07, 2018-patient seen and examined, was having dry heaves and emesis this morning. Still with episode of hematuria. Patient was seen by urology this morning. Denies any shortness of breath or chest pain. Physical Exam Vital signs: Vital Signs 04/06/18 13:00 04/06/18 14:00 04/06/18 15:00 Temperature Pulse Rate 88 74 74 Respiratory Rate Blood Pressure Pulse Oximetry 04/06/18 16:00 04/06/18 17:00 04/06/18 18:00 Temperature 98.7 F Pulse Rate 90 72 74 Respiratory Rate 20 Blood Pressure 114/97 H Pulse Oximetry 04/06/18 19:00 04/06/18 20:00 04/06/18 21:00 Temperature 97.9 F Pulse Rate 86 70 67 Respiratory Rate 18 Blood Pressure 115/76 Pulse Oximetry 95 04/06/18 21:11 04/06/18 22:00 04/06/18 23:00 Temperature Pulse Rate 67 66 Respiratory Rate Blood Pressure Pulse Oximetry 94 L 04/07/18 00:00 04/07/18 01:00 04/07/18 02:00 Temperature 97.9 F Pulse Rate 66 73 65 Respiratory Rate 17 Blood Pressure 106/62 Pulse Oximetry 94 L 04/07/18 03:00 04/07/18 04:00 04/07/18 05:00 Temperature 98 F Pulse Rate 66 72 70 Respiratory Rate 16 Blood Pressure 117/67 Pulse Oximetry 92 L 04/07/18 06:00 04/07/18 07:00 04/07/18 08:00 Temperature 98.7 F Pulse Rate 72 79 81 Respiratory Rate 18 Blood Pressure 116/69 Pulse Oximetry 93 L 04/07/18 11:57 04/07/18 12:00 Temperature 98.4 F Pulse Rate 78 Respiratory Rate 18 Blood Pressure 116/69 Pulse Oximetry 94 L 94 L Intake & Output 04/06/18 04/07/18 04/07/18 18:59 06:59 18:59 Intake Total 840 / 840 120 / 120 Output Total 650 / 650 755 / 755 Balance 190 / 190 -635 / -635 Weight 105 kg Intake: Oral 840 / 840 120 / 120 Output: Urine 650 / 650 750 / 750 Wound Drainage 5 / 5 Right Lower Abdomen 5 / 5 Other: Date of Last Bowel Movement 04/05/18 04/07/18 04/07/18 # Bowel Movements 1 Narrative: GENERAL: NAD, AAOx3 SKIN: Warm and dry. HEAD: Atraumatic. Normocephalic. EYES: Pupils equal and round. No scleral icterus. No injection or drainage. ENT: No nasal bleeding or discharge. Mucous membranes pink and moist. NECK: Trachea midline. No JVD. CARDIOVASCULAR: Irregularly irregular RESPIRATORY: No accessory muscle use. Clear to auscultation. Breath sounds equal bilaterally. GASTROINTESTINAL: Abdomen soft, mild tender RUQ, nondistended. Hepatic and splenic margins not palpable. MUSCULOSKELETAL: Extremities without clubbing, cyanosis, or edema. No obvious deformities. NEUROLOGICAL: Awake and alert. No obvious cranial nerve deficits. Motor grossly within normal limits. Five out of 5 muscle strength in the arms and legs. Normal speech. PSYCHIATRIC: Appropriate mood and affect; insight and judgment normal. Results - Labs CBC & Chem 7: 04/07/18 06:01 04/07/18 06:01 Laboratory Results - last 24 hr 04/06/18 04/06/18 04/07/18 17:57 21:41 06:01 WBC 11.8 H RBC 3.06 L Hgb 8.9 L Hct 26.6 L MCV 87.0 MCH 29.1 MCHC 33.4 RDW 15.4 Plt Count 411 MPV 9.0 Neut % (Auto) 68.5 Lymph % (Auto) 19.8 [place] % (Auto) 9.3 H Eos % (Auto) 1.0 Baso % (Auto) 1.4 Neut # (Auto) 8.1 H Lymph # (Auto) 2.3 [place] # (Auto) 1.1 H Eos # (Auto) 0.1 Baso # (Auto) 0.2 WBC Differential . Differential Comment Auto diff final Sodium Potassium Chloride Carbon Dioxide Anion Gap BUN Creatinine Estimated GFR POC Glucose 261 H 109 Random Glucose Calcium Total Bilirubin AST ALT Alkaline Phosphatase Total Protein Albumin 04/07/18 04/07/18 04/07/18 06:01 08:50 12:00 WBC RBC Hgb Hct MCV MCH MCHC RDW Plt Count MPV Neut % (Auto) Lymph % (Auto) [place] % (Auto) Eos % (Auto) Baso % (Auto) Neut # (Auto) Lymph # (Auto) [place] # (Auto) Eos # (Auto) Baso # (Auto) WBC Differential Differential Comment Sodium 140 Potassium 4.1 Chloride 102 Carbon Dioxide 30.4 Anion Gap 8 BUN 13 Creatinine 0.72 Estimated GFR Greater than 89 POC Glucose 117 H 128 H Random Glucose 80 Calcium 8.1 L Total Bilirubin 0.6 AST 65 H ALT 80 H Alkaline Phosphatase 456 H Total Protein 6.4 Albumin 2.1 L Microbiology 04/03/18 11:02 Blood - Peripheral Aerobic Blood Culture - Preliminary No growth in 4 days 04/03/18 11:02 Blood - Peripheral Anaerobic Blood Culture - Preliminary No growth in 4 days 04/03/18 11:09 Blood - Peripheral Aerobic Blood Culture - Preliminary No growth in 4 days 04/03/18 11:09 Blood - Peripheral Anaerobic Blood Culture - Preliminary No growth in 4 days - Procedures 03/22- cholecystostomy tube placement 03/23- cardiac cath Assessment and Plan - Assessment (1) Cholecystitis Code(s): K81.9 - Cholecystitis, unspecified Status: Acute - Plan 67-year-old man with Sepsis/ Acute cholecystitis E. coli and Klebsiella pneumonia on blood cultures -03/19. S/p cholecystostomy tube drain- not a candidate for cholecystectomy at this time due to CAD and need for heart surgery. -Completed ceftriaxone 04/03. Per ID, patient can proceed to CABG if blood culture negative times 48 hours -continue with pain control as needed. -continue cholecystostomy drain care as directed. Patient may need stent placement to drain CBD versus ERCP -Appreciate input from general surgery, infectious disease specialist -LFTs trending down NSTEMI/Afib s/p cardiac cath with multivessel disease. Echo with EF 60% with no regional wall motion abnormalities. S/p KELLY with no vegetations. -CT surgery consult appreciated.Per ID, patient can proceed to CABG if blood culture negative times 48 hours -Continue ASA, Cardizem, Lipitor. Hematuria -Appreciate input from urology, who recommended to hold aspirin and Lovenox. -Urology states Would not place a Pavon catheter and start CBI until the patient starts having trouble with urination or having clot retention -Continue to monitor H&H and transfuse accordingly DM II -continue Levemir and sliding scale and adjust as needed. DVT prophylaxis with Lovenox
--- NOTE | 2018-04-07 12:41 | US ---
EXAM DATE: 04/07/2018 11:58 AM EST AGE/SEX: 67 years / Male INDICATIONS: Hematuria. CLINICAL DATA: This is the patient's subsequent encounter. Patient reports that signs and symptoms h ave been present for 1 day and indicates a pain score of 0/10. MEDICAL/SURGICAL HISTORY: . Cardiovascular disease. Myocardial infarction. Gastroesophageal ref lux disease. Diabetes. . Gastric bypass. COMPARISON: [facility] – [place], CTA ABDOMEN & PELVIS W CONTRAST W 3D, 03/22/2018. . MEASUREMENTS: Right Kidney:__10.4 x 6.6 x 5.7 cm Left Kidney:__. Not visualized. FINDINGS: Right Kidney: The right kidney is lobulated but otherwise demonstrates normal cortical thickness. The re is no gross of nephrolithiasis or hydronephrosis or suspicious mass. Left Kidney: Left kidney cannot be visualized. Bladder: Within normal limits given the degree of distension. Other: None. CONCLUSION: 1. No findings to account for the patient's hematuria. 2. Nonvisualization of the left kidney. 3. No evidence of hydronephrosis or nephrolithiasis in the right kidney. Electronically signed by: Jesus Rogers MD 04/07/2018 12:40 PM EST
[2018-04-07] MEDS: Sod Chloride 0.9% Inj 1,000 ML IV.CONT SCH ×2 (14:24→21:57)
--- NOTE | 2018-04-07 15:07 | P.PNGI ---
Subjective Interval history: Patient sitting up at bedside Reports less abdominal discomfort Right biliary drain to collection bag with scant drainage <Michelle Wood - Last Filed: 04/07/18 15:02> Physical Exam Vital signs: Vital Signs 04/06/18 16:00 04/06/18 17:00 04/06/18 18:00 Temperature 98.7 F Pulse Rate 90 72 74 Respiratory Rate 20 Blood Pressure 114/97 H Pulse Oximetry 04/06/18 19:00 04/06/18 20:00 04/06/18 21:00 Temperature 97.9 F Pulse Rate 86 70 67 Respiratory Rate 18 Blood Pressure 115/76 Pulse Oximetry 95 04/06/18 21:11 04/06/18 22:00 04/06/18 23:00 Temperature Pulse Rate 67 66 Respiratory Rate Blood Pressure Pulse Oximetry 94 L 04/07/18 00:00 04/07/18 01:00 04/07/18 02:00 Temperature 97.9 F Pulse Rate 66 73 65 Respiratory Rate 17 Blood Pressure 106/62 Pulse Oximetry 94 L 04/07/18 03:00 04/07/18 04:00 04/07/18 05:00 Temperature 98 F Pulse Rate 66 72 70 Respiratory Rate 16 Blood Pressure 117/67 Pulse Oximetry 92 L 04/07/18 06:00 04/07/18 07:00 04/07/18 08:00 Temperature 98.7 F Pulse Rate 72 79 76 Respiratory Rate 18 Blood Pressure 116/69 Pulse Oximetry 93 L 04/07/18 09:00 04/07/18 10:00 04/07/18 11:00 Temperature Pulse Rate 80 80 81 Respiratory Rate Blood Pressure Pulse Oximetry 04/07/18 11:57 04/07/18 12:00 Temperature 98.4 F Pulse Rate 80 Respiratory Rate 18 Blood Pressure 116/69 Pulse Oximetry 94 L 94 L Intake & Output 04/06/18 04/07/18 04/07/18 18:59 06:59 18:59 Intake Total 840 / 840 120 / 120 Output Total 650 / 650 755 / 755 Balance 190 / 190 -635 / -635 Weight 105 kg Intake: Oral 840 / 840 120 / 120 Output: Urine 650 / 650 750 / 750 Wound Drainage 5 / 5 Right Lower Abdomen 5 / 5 Other: Date of Last Bowel Movement 04/05/18 04/07/18 04/07/18 # Bowel Movements 1 - Constitutional no acute distress, chronically ill appearing - Routine HEENT Exam Head: Present: normocephalic - Routine Respiratory Exam Present: CTA bilaterally - Routine Abdominal Exam Present: soft, normoactive bowel sounds, drain. Absent: tenderness, guarding, firm - Routine Extremities Exam Absent: edema - Routine Skin Exam Present: dry, warm - Routine Neurological Exam Present: alert - Routine Psychiatric Exam Present: normal affect, cooperative <Wood,Michelle - Last Filed: 04/07/18 15:02> Vital signs: Vital Signs 04/06/18 17:00 04/06/18 18:00 04/06/18 19:00 Temperature Pulse Rate 72 74 86 Respiratory Rate Blood Pressure Pulse Oximetry 04/06/18 20:00 04/06/18 21:00 04/06/18 21:11 Temperature 97.9 F Pulse Rate 70 67 Respiratory Rate 18 Blood Pressure 115/76 Pulse Oximetry 95 94 L 04/06/18 22:00 04/06/18 23:00 04/07/18 00:00 Temperature 97.9 F Pulse Rate 67 66 66 Respiratory Rate 17 Blood Pressure 106/62 Pulse Oximetry 94 L 04/07/18 01:00 04/07/18 02:00 04/07/18 03:00 Temperature Pulse Rate 73 65 66 Respiratory Rate Blood Pressure Pulse Oximetry 04/07/18 04:00 04/07/18 05:00 04/07/18 06:00 Temperature 98 F Pulse Rate 72 70 72 Respiratory Rate 16 Blood Pressure 117/67 Pulse Oximetry 92 L 04/07/18 07:00 04/07/18 08:00 04/07/18 09:00 Temperature 98.7 F Pulse Rate 79 76 80 Respiratory Rate 18 Blood Pressure 116/69 Pulse Oximetry 93 L 04/07/18 10:00 04/07/18 11:00 04/07/18 11:57 Temperature Pulse Rate 80 81 Respiratory Rate Blood Pressure Pulse Oximetry 94 L 04/07/18 12:00 04/07/18 13:00 04/07/18 14:00 Temperature 98.4 F Pulse Rate 80 82 82 Respiratory Rate 18 Blood Pressure 116/69 Pulse Oximetry 94 L 04/07/18 15:00 04/07/18 16:00 Temperature 98.2 F Pulse Rate 82 80 Respiratory Rate 18 Blood Pressure 124/88 Pulse Oximetry 93 L Intake & Output 04/06/18 04/07/18 04/07/18 18:59 06:59 18:59 Intake Total 840 / 840 120 / 120 Output Total 650 / 650 755 / 755 Balance 190 / 190 -635 / -635 Weight 105 kg Intake: Oral 840 / 840 120 / 120 Output: Urine 650 / 650 750 / 750 Wound Drainage 5 / 5 Right Lower Abdomen 5 / 5 Other: Date of Last Bowel Movement 04/05/18 04/07/18 04/07/18 # Bowel Movements 1 <Zhou Wright A - Last Filed: 04/07/18 16:13> Results - Labs CBC & Chem 7: 04/07/18 06:01 04/07/18 06:01 Laboratory Results - last 24 hr 04/06/18 04/06/18 04/07/18 17:57 21:41 06:01 WBC 11.8 H RBC 3.06 L Hgb 8.9 L Hct 26.6 L MCV 87.0 MCH 29.1 MCHC 33.4 RDW 15.4 Plt Count 411 MPV 9.0 Neut % (Auto) 68.5 Lymph % (Auto) 19.8 [place] % (Auto) 9.3 H Eos % (Auto) 1.0 Baso % (Auto) 1.4 Neut # (Auto) 8.1 H Lymph # (Auto) 2.3 [place] # (Auto) 1.1 H Eos # (Auto) 0.1 Baso # (Auto) 0.2 WBC Differential . Differential Comment Auto diff final Sodium Potassium Chloride Carbon Dioxide Anion Gap BUN Creatinine Estimated GFR POC Glucose 261 H 109 Random Glucose Calcium Total Bilirubin AST ALT Alkaline Phosphatase Total Protein Albumin 04/07/18 04/07/18 04/07/18 06:01 08:50 12:00 WBC RBC Hgb Hct MCV MCH MCHC RDW Plt Count MPV Neut % (Auto) Lymph % (Auto) [place] % (Auto) Eos % (Auto) Baso % (Auto) Neut # (Auto) Lymph # (Auto) [place] # (Auto) Eos # (Auto) Baso # (Auto) WBC Differential Differential Comment Sodium 140 Potassium 4.1 Chloride 102 Carbon Dioxide 30.4 Anion Gap 8 BUN 13 Creatinine 0.72 Estimated GFR Greater than 89 POC Glucose 117 H 128 H Random Glucose 80 Calcium 8.1 L Total Bilirubin 0.6 AST 65 H ALT 80 H Alkaline Phosphatase 456 H Total Protein 6.4 Albumin 2.1 L Microbiology 04/03/18 11:02 Blood - Peripheral Aerobic Blood Culture - Preliminary No growth in 4 days 04/03/18 11:02 Blood - Peripheral Anaerobic Blood Culture - Preliminary No growth in 4 days 04/03/18 11:09 Blood - Peripheral Aerobic Blood Culture - Preliminary No growth in 4 days 04/03/18 11:09 Blood - Peripheral Anaerobic Blood Culture - Preliminary No growth in 4 days - Imaging Impressions Abdomen/Bladder Ultrasound 04/07/18 00:00 CONCLUSION: 1. No findings to account for the patient's hematuria. 2. Nonvisualization of the left kidney. 3. No evidence of hydronephrosis or nephrolithiasis in the right kidney. - Procedures 03/22- cholecystostomy tube placement 03/23- cardiac cath <Michelle Wood - Last Filed: 04/07/18 15:02> - Labs CBC & Chem 7: 04/07/18 06:01 04/07/18 06:01 Laboratory Results - last 24 hr 04/06/18 04/06/18 04/07/18 17:57 21:41 06:01 WBC 11.8 H RBC 3.06 L Hgb 8.9 L Hct 26.6 L MCV 87.0 MCH 29.1 MCHC 33.4 RDW 15.4 Plt Count 411 MPV 9.0 Neut % (Auto) 68.5 Lymph % (Auto) 19.8 [place] % (Auto) 9.3 H Eos % (Auto) 1.0 Baso % (Auto) 1.4 Neut # (Auto) 8.1 H Lymph # (Auto) 2.3 [place] # (Auto) 1.1 H Eos # (Auto) 0.1 Baso # (Auto) 0.2 WBC Differential . Differential Comment Auto diff final Sodium Potassium Chloride Carbon Dioxide Anion Gap BUN Creatinine Estimated GFR POC Glucose 261 H 109 Random Glucose Calcium Total Bilirubin AST ALT Alkaline Phosphatase Total Protein Albumin 04/07/18 04/07/18 04/07/18 06:01 08:50 12:00 WBC RBC Hgb Hct MCV MCH MCHC RDW Plt Count MPV Neut % (Auto) Lymph % (Auto) [place] % (Auto) Eos % (Auto) Baso % (Auto) Neut # (Auto) Lymph # (Auto) [place] # (Auto) Eos # (Auto) Baso # (Auto) WBC Differential Differential Comment Sodium 140 Potassium 4.1 Chloride 102 Carbon Dioxide 30.4 Anion Gap 8 BUN 13 Creatinine 0.72 Estimated GFR Greater than 89 POC Glucose 117 H 128 H Random Glucose 80 Calcium 8.1 L Total Bilirubin 0.6 AST 65 H ALT 80 H Alkaline Phosphatase 456 H Total Protein 6.4 Albumin 2.1 L Microbiology 04/03/18 11:02 Blood - Peripheral Aerobic Blood Culture - Preliminary No growth in 4 days 04/03/18 11:02 Blood - Peripheral Anaerobic Blood Culture - Preliminary No growth in 4 days 04/03/18 11:09 Blood - Peripheral Aerobic Blood Culture - Preliminary No growth in 4 days 04/03/18 11:09 Blood - Peripheral Anaerobic Blood Culture - Preliminary No growth in 4 days - Imaging Impressions Abdomen/Bladder Ultrasound 04/07/18 00:00 CONCLUSION: 1. No findings to account for the patient's hematuria. 2. Nonvisualization of the left kidney. 3. No evidence of hydronephrosis or nephrolithiasis in the right kidney. <Zhou Wright A - Last Filed: 04/07/18 16:13> Assessment and Plan (1) Intractable abdominal pain Status: Acute Code(s): R10.9 - Unspecified abdominal pain - Plan Assessment: - Colon wall thickening- CT abdomen and pelvis (03/19) Short segmental concentric wall thickening is identified in the distal descending colon. Colon malignancy needs to be excluded. Calcified gallstones with moderate distention of the gallbladder. Patient states last EGD/colonoscopy was done in 2006 prior to gastric bypass surgery. Reportedly normal exam. Family history of gastric cancer-he states his brother of gastric cancer at the age of 3838 years old. EGD/colonoscopy recommended when pt is cleared by cardiology and is stable - Acute cholecystitis - CTA abd/pelvis done to rule out mesenteric ischemia yesterday CTA abd/pelvis (03/22) Prominent gallbladder distention and surrounding inflammatory changes consistent with cholecystitis No acute vascular findings in the abdomen or pelvis. Poor surgical candidate, S/P cholecystostomy tube placement by IR. GS following - Klebsiella Pneumoniae bacteremia- ID following to determine etiology. KELLY negative for vegetation. Suspect secondary to acute cholecystitis - A-fib with RVR and elevated troponin- now rate controlled, on Amiodarone gtt, on Heparin- cardiology following (03/24) S/P cardiac cath- multivessel CAD, cardiothoracic surgery has been consulted. Dark bile output from cholecystostomy tube. 03/25/2018, continues with some right-sided abdominal pain around the area of right biliary drainage tube which shows small amount of dark bilious drainage Constipation questionable bowel movement states none in the past 6 days, will review medications Continues with IV fluids at 100 cc an hour. Until cardiothoracic consult and clearance for any further GI workup will follow as needed Hemoglobin stable at 9.8 and WBC count 13 no obvious bleeding 04/04/2018 Our service has been asked to see patient due to increasing liver function tests , possibly passed stone. Cholecystostomy tube in place with scant drainage noted in drainage jukebox coin collector bag. WBC 15.3 hemoglobin 9.8 hematocrit 30.3 total bilirubin 3.0 AST 228 ALT 170 alk phos 697 04/03/2018 MRCP revealed the following-- 1. Numerous filling defects within the central intrahepatic biliary ducts, common hepatic ducts, and common bile ducts. These represent stones and/or thrombus/hemorrhage. The linear defects are more likely related to hemorrhage. 2. Dilatation of the gallbladder with thickened gallbladder wall and a cholecystostomy tube in place. There is heterogeneous material within the gallbladder. 04/07/2018 Consultation to IR for evaluation of cholecystostomy tube. As per my discussion with Dr. Ramos, intervention to evaluate for patency of cholecystostomy tube not indicated at this time as drainage under previous evaluation noted to be "honey thick". WBC 11.8 hemoglobin 8.9 hematocrit 26.6 platelet count 411 total bilirubin 0.6 AST 65 ALT 80 alk phos 456 all trending down Patient afebrile at 98.4 Plan -Cardiac diet as tolerated -Continue to monitor labs closely-CBC liver function tests -Antiemetics and analgesia as per attending -Continue PPI -Continue bowel regimen -Supportive care -Further recommendations to follow This patient has been seen by myself and Dr. Wright and this note is written on his behalf - Attending Attestation Dr. Wright <Michelle Wood - Last Filed: 04/07/18 15:02> (1) Intractable abdominal pain Status: Acute Code(s): R10.9 - Unspecified abdominal pain - Attending Attestation Seen and examined, discussed earlier this morning with IR, likely blockage resolved, asymptomatic now with normal LFT's. Will follow up labs and clinically. Diet to be advanced as tolerated. Further recommendations to follow. <Zhou Wright - Last Filed: 04/07/18 16:13>
[2018-04-08] MEDS: Sod Chloride 0.9% Inj 1,000 ML IV.CONT SCH ×4 (01:16→21:52)
[2018-04-08] MEDS: Insulin Detemir Inj 1,000 UNIT/10 ML Vial SQ SCH ×2 (08:34→20:25)
[2018-04-08] MEDS: Magnesium Oxide 400 MG Tablet PO SCH ×2 (08:34→20:25)
[2018-04-08] MEDS: Sodium Chloride 0.9% 2 ML Flush BID IV.FLUSH SCH ×2 (08:34→20:21)
[2018-04-08] MEDS: Insulin NovoLOG Aspart Correctional Sugar Inj SQ SCH ×4 (08:34→20:33)
[2018-04-08] MEDS: dilTIAZem 30 MG Tablet PO SCH ×4 (08:34→20:20)
[2018-04-08] MEDS: Senna/Docusate Sodium 8.6/50 MG Tablet PO SCH ×2 (08:35→20:21)
--- NOTE | 2018-04-08 10:18 | P.PNURO ---
Subjective Patient symptoms today: Pt seen and examined. Still with gross hematuria. No clots and is voiding well. Mild dysuria. Objective Vital Signs: Vital Signs 04/07/18 11:00 04/07/18 11:57 04/07/18 12:00 Temperature 98.4 F Pulse Rate 81 80 Respiratory Rate 18 Blood Pressure 116/69 Pulse Oximetry 94 L 94 L 04/07/18 13:00 04/07/18 14:00 04/07/18 15:00 Temperature Pulse Rate 82 82 82 Respiratory Rate Blood Pressure Pulse Oximetry 04/07/18 16:00 04/07/18 17:00 04/07/18 18:00 Temperature 98.2 F Pulse Rate 80 94 H 84 Respiratory Rate 18 Blood Pressure 124/88 Pulse Oximetry 93 L 04/07/18 19:00 04/07/18 19:55 04/07/18 20:00 Temperature 98.2 F Pulse Rate 85 79 74 Respiratory Rate 17 Blood Pressure 124/75 Pulse Oximetry 93 L 93 L 04/07/18 20:29 04/07/18 21:00 04/07/18 21:32 Temperature Pulse Rate 88 Respiratory Rate 6 L Blood Pressure Pulse Oximetry 93 L 04/07/18 22:00 04/07/18 23:00 04/08/18 00:00 Temperature 98.4 F Pulse Rate 77 78 77 Respiratory Rate 16 Blood Pressure 113/65 Pulse Oximetry 94 L 04/08/18 01:00 04/08/18 02:00 04/08/18 03:00 Temperature Pulse Rate 72 71 69 Respiratory Rate Blood Pressure Pulse Oximetry 04/08/18 04:00 04/08/18 05:00 04/08/18 06:00 Temperature 98 F Pulse Rate 76 72 73 Respiratory Rate 17 Blood Pressure 122/74 Pulse Oximetry 94 L 04/08/18 07:00 04/08/18 08:00 Temperature 98 F Pulse Rate 75 78 Respiratory Rate 18 Blood Pressure 108/73 Pulse Oximetry 94 L Intake & Output 04/07/18 04/08/18 04/08/18 18:59 06:59 18:59 Intake Total 480 / 480 1480 / 1480 Output Total 850 / 850 675 / 675 Balance -370 / -370 805 / 805 Weight 104 kg Intake: IV 1000 / 1000 NS Inj 1,000 ML @ 84 mls/hr IV. 1000 / 1000 CONT [id number] Rx#:[id number] Oral 480 / 480 480 / 480 Output: Urine 850 / 850 675 / 675 Other: # Voids 3 # Incontinent Voids 1 Date of Last Bowel Movement 04/07/18 04/08/18 04/08/18 # Bowel Movements 1 Result Diagrams: 04/07/18 06:01 04/07/18 06:01 Imaging: Impressions Abdomen/Bladder Ultrasound 04/07/18 00:00 CONCLUSION: 1. No findings to account for the patient's hematuria. 2. Nonvisualization of the left kidney. 3. No evidence of hydronephrosis or nephrolithiasis in the right kidney. Medications and IVs: Active Medications Generic Name Dose Route Start Last Admin Trade Name Freq PRN Reason Stop Dose Admin Acetaminophen 650 mg 03/19/18 16:02 03/27/18 09:04 Tylenol PO 650 mg Q4H PRN Administration Temp > 100.4 Al Hydroxide/Mg Hydroxide 30 ml 03/19/18 16:02 03/25/18 15:47 Milk Of Magnesia Liq PO 30 ml Q12H PRN Administration Mild Constipation Atorvastatin Calcium 20 mg 03/28/18 09:00 04/08/18 08:34 Lipitor PO 20 mg DAILY THOMAS Administration Bisacodyl 10 mg 03/19/18 16:02 04/03/18 14:07 Dulcolax Supp RECTAL 10 mg DAILY PRN Administration SEVERE CONSITIPATION Bisacodyl 10 mg 03/30/18 17:14 03/30/18 17:35 Dulcolax Ec PO 10 mg ONCE ONE Administration Dextrose 50 ml 03/19/18 16:51 [id number] Vial IV.PUSH UNSCH PRN PER HYPOGLYCEMIA PROTOCOL Diltiazem HCl 30 mg 03/23/18 13:00 04/08/18 08:34 Cardizem PO 30 mg QID THOMAS Administration Glucagon 1 mg 03/19/18 16:51 Glucagon Inj OTHER PRN PRN for Hypoglycemia Protocol Sodium Chloride 1,000 mls @ 84 mls/hr 04/07/18 09:54 04/08/18 01:16 Ns Inj IV.CONT 84 mls/hr .[id number] THOMAS Administration Insulin Aspart 0 unit 03/27/18 17:00 04/08/18 08:34 Novolog Insulin Correctional Sugar Inj SQ Not Given ACHS THOMAS Protocol Insulin Detemir 5 unit 03/27/18 14:37 04/08/18 08:34 Levemir Inj SQ 5 unit BID THOMAS Administration Lactulose 30 ml 03/19/18 16:02 03/25/18 15:47 Lactulose Liq PO 30 ml DAILY PRN Administration SEVERE CONSITIPATION Magnesium Oxide 400 mg 03/22/18 14:45 04/08/18 08:34 Mag-Ox PO 400 mg BID THOMAS Administration Metformin HCl 1,000 mg 03/27/18 21:00 04/08/18 08:33 Glucophage PO 1,000 mg BID THOMAS Administration Morphine Sulfate 2 mg 03/31/18 11:26 04/03/18 11:00 Morphine Inj IV.PUSH 2 mg Q4H PRN Administration BREAKTHROUGH PAIN Oxycodone HCl 10 mg 03/31/18 11:25 04/07/18 20:59 Roxicodone PO 10 mg Q4H PRN Administration pain 6-10 Oxycodone HCl 5 mg 03/31/18 11:25 04/08/18 04:19 Roxicodone PO 5 mg Q4H PRN Administration pain 3-5 Pantoprazole Sodium 40 mg 03/19/18 16:15 04/08/18 08:33 Protonix PO 40 mg DAILY THOMAS Administration Potassium Chloride 20 meq 03/29/18 09:00 04/08/18 08:33 K-Dur PO 20 meq DAILY THOMAS Administration Prochlorperazine Edisylate 10 mg 04/03/18 17:47 04/08/18 04:23 Compazine Inj IV.PUSH 10 mg Q6H PRN Administration NAUSEA Senna/Docusate Sodium 1 tab 03/19/18 21:00 04/08/18 08:35 Carlotta-Colace PO Not Given BID [facility] Sennosides 17.2 mg 03/19/18 16:02 03/30/18 05:24 Senokot PO 17.2 mg Q12H PRN Administration Moderate Constipation Sodium Chloride 2 ml 03/20/18 09:00 04/08/18 08:34 Ns Flush IV.FLUSH 2 ml BID THOMAS Administration Sodium Chloride 2 ml 03/20/18 00:12 03/26/18 02:04 Ns Flush IV.FLUSH 2 ml PRN PRN Administration FLUSH AFTER USING IV ACCESS Objective Remarks: Abd:soft,nt,nd Gross hematuria Assessment and Plan - Plan 67 y.o male s/p VT with gross hematuria voiding without clots. US showed normal bladder without mass or clots. Hgb 8.9. Continue IVF; not a good operative candidate Will need cysto in future when medically cleared.
--- NOTE | 2018-04-08 11:59 | P.PN ---
Subjective Interval history: Follow-up sepsis/cholecystitis/gross hematuria April 08, 2018-patient seen and examined, still with gross hematuria however no clot. Complains of episode of emesis this a.m. after breakfast. Physical Exam Vital signs: Vital Signs 04/07/18 12:00 04/07/18 13:00 04/07/18 14:00 Temperature 98.4 F Pulse Rate 80 82 82 Respiratory Rate 18 Blood Pressure 116/69 Pulse Oximetry 94 L 04/07/18 15:00 04/07/18 16:00 04/07/18 17:00 Temperature 98.2 F Pulse Rate 82 80 94 H Respiratory Rate 18 Blood Pressure 124/88 Pulse Oximetry 93 L 04/07/18 18:00 04/07/18 19:00 04/07/18 19:55 Temperature 98.2 F Pulse Rate 84 85 79 Respiratory Rate 17 Blood Pressure 124/75 Pulse Oximetry 93 L 04/07/18 20:00 04/07/18 20:29 04/07/18 21:00 Temperature Pulse Rate 74 88 Respiratory Rate Blood Pressure Pulse Oximetry 93 L 93 L 04/07/18 21:32 04/07/18 22:00 04/07/18 23:00 Temperature Pulse Rate 77 78 Respiratory Rate 6 L Blood Pressure Pulse Oximetry 04/08/18 00:00 04/08/18 01:00 04/08/18 02:00 Temperature 98.4 F Pulse Rate 77 72 71 Respiratory Rate 16 Blood Pressure 113/65 Pulse Oximetry 94 L 04/08/18 03:00 04/08/18 04:00 04/08/18 05:00 Temperature 98 F Pulse Rate 69 76 72 Respiratory Rate 17 Blood Pressure 122/74 Pulse Oximetry 94 L 04/08/18 06:00 04/08/18 07:00 04/08/18 08:00 Temperature 98 F Pulse Rate 73 75 70 Respiratory Rate 18 Blood Pressure 108/73 Pulse Oximetry 94 L 04/08/18 09:00 04/08/18 10:00 04/08/18 11:00 Temperature Pulse Rate 82 80 76 Respiratory Rate Blood Pressure Pulse Oximetry Intake & Output 04/07/18 04/08/18 04/08/18 18:59 06:59 18:59 Intake Total 480 / 480 1480 / 1480 Output Total 850 / 850 675 / 675 Balance -370 / -370 805 / 805 Weight 104 kg Intake: IV 1000 / 1000 NS Inj 1,000 ML @ 84 mls/hr IV. 1000 / 1000 CONT .[id number] [facility] Rx#:[id number] Oral 480 / 480 480 / 480 Output: Urine 850 / 850 675 / 675 Other: # Voids 3 # Incontinent Voids 1 Date of Last Bowel Movement 04/07/18 04/08/18 04/08/18 # Bowel Movements 1 Narrative: GENERAL: NAD, AAOx3 SKIN: Warm and dry. HEAD: Atraumatic. Normocephalic. EYES: Pupils equal and round. No scleral icterus. No injection or drainage. ENT: No nasal bleeding or discharge. Mucous membranes pink and moist. NECK: Trachea midline. No JVD. CARDIOVASCULAR: Irregularly irregular RESPIRATORY: No accessory muscle use. Clear to auscultation. Breath sounds equal bilaterally. GASTROINTESTINAL: Abdomen soft, mild tender RUQ, nondistended. Hepatic and splenic margins not palpable. MUSCULOSKELETAL: Extremities without clubbing, cyanosis, or edema. No obvious deformities. NEUROLOGICAL: Awake and alert. No obvious cranial nerve deficits. Motor grossly within normal limits. Five out of 5 muscle strength in the arms and legs. Normal speech. PSYCHIATRIC: Appropriate mood and affect; insight and judgment normal. Results - Labs CBC & Chem 7: 04/07/18 06:01 04/07/18 06:01 Laboratory Results - last 24 hr 04/07/18 04/07/18 04/07/18 12:00 17:13 20:12 POC Glucose 128 H 170 H 174 H 04/08/18 08:31 POC Glucose 87 Microbiology 04/03/18 11:02 Blood - Peripheral Aerobic Blood Culture - Final No growth in 5 days 04/03/18 11:02 Blood - Peripheral Anaerobic Blood Culture - Final No growth in 5 days 04/03/18 11:09 Blood - Peripheral Aerobic Blood Culture - Final No growth in 5 days 04/03/18 11:09 Blood - Peripheral Anaerobic Blood Culture - Final No growth in 5 days - Imaging Impressions Abdomen/Bladder Ultrasound 04/07/18 00:00 CONCLUSION: 1. No findings to account for the patient's hematuria. 2. Nonvisualization of the left kidney. 3. No evidence of hydronephrosis or nephrolithiasis in the right kidney. - Procedures 03/22- cholecystostomy tube placement 03/23- cardiac cath Assessment and Plan - Assessment (1) Cholecystitis Code(s): K81.9 - Cholecystitis, unspecified Status: Acute - Plan 67-year-old man with Sepsis/ Acute cholecystitis E. coli and Klebsiella pneumonia on blood cultures -03/19. S/p cholecystostomy tube drain- not a candidate for cholecystectomy at this time due to CAD and need for heart surgery. -Completed ceftriaxone 04/03. Per ID, patient can proceed to CABG if blood culture negative times 48 hours -continue with pain control as needed. -continue cholecystostomy drain care as directed. Patient may need stent placement to drain CBD versus ERCP -Appreciate input from general surgery, infectious disease specialist -LFTs trending down NSTEMI/Afib s/p cardiac cath with multivessel disease. Echo with EF 60% with no regional wall motion abnormalities. S/p KELLY with no vegetations. -CT surgery consult appreciated.Per ID, patient can proceed to CABG if blood culture negative times 48 hours -Continue ASA, Cardizem, Lipitor. Hematuria -Appreciate input from urology, continue to hold aspirin and Lovenox. Continue IV fluid hydration -Urology states Would not place a Pavon catheter and start CBI until the patient starts having trouble with urination or having clot retention -Continue to monitor H&H and transfuse accordingly DM II -continue Levemir and sliding scale and adjust as needed. DVT prophylaxis with B-SCD
--- NOTE | 2018-04-08 12:32 | P.PNGI ---
Subjective Interval history: Patient awake and alert Up in bedside chair Reports he is feeling "much better today". <WoodMichelle - Last Filed: 04/08/18 12:28> Physical Exam Vital signs: Vital Signs 04/07/18 13:00 04/07/18 14:00 04/07/18 15:00 Temperature Pulse Rate 82 82 82 Respiratory Rate Blood Pressure Pulse Oximetry 04/07/18 16:00 04/07/18 17:00 04/07/18 18:00 Temperature 98.2 F Pulse Rate 80 94 H 84 Respiratory Rate 18 Blood Pressure 124/88 Pulse Oximetry 93 L 04/07/18 19:00 04/07/18 19:55 04/07/18 20:00 Temperature 98.2 F Pulse Rate 85 79 74 Respiratory Rate 17 Blood Pressure 124/75 Pulse Oximetry 93 L 93 L 04/07/18 20:29 04/07/18 21:00 04/07/18 21:32 Temperature Pulse Rate 88 Respiratory Rate 6 L Blood Pressure Pulse Oximetry 93 L 04/07/18 22:00 04/07/18 23:00 04/08/18 00:00 Temperature 98.4 F Pulse Rate 77 78 77 Respiratory Rate 16 Blood Pressure 113/65 Pulse Oximetry 94 L 04/08/18 01:00 04/08/18 02:00 04/08/18 03:00 Temperature Pulse Rate 72 71 69 Respiratory Rate Blood Pressure Pulse Oximetry 04/08/18 04:00 04/08/18 05:00 04/08/18 06:00 Temperature 98 F Pulse Rate 76 72 73 Respiratory Rate 17 Blood Pressure 122/74 Pulse Oximetry 94 L 04/08/18 07:00 04/08/18 08:00 04/08/18 09:00 Temperature 98 F Pulse Rate 75 70 82 Respiratory Rate 18 Blood Pressure 108/73 Pulse Oximetry 94 L 04/08/18 10:00 04/08/18 11:00 Temperature Pulse Rate 80 76 Respiratory Rate Blood Pressure Pulse Oximetry Intake & Output 04/07/18 04/08/18 04/08/18 18:59 06:59 18:59 Intake Total 480 / 480 1480 / 1480 Output Total 850 / 850 675 / 675 Balance -370 / -370 805 / 805 Weight 104 kg Intake: IV 1000 / 1000 NS Inj 1,000 ML @ 84 mls/hr IV. 1000 / 1000 CONT .[id number] [facility] Rx#:[id number] Oral 480 / 480 480 / 480 Output: Urine 850 / 850 675 / 675 Other: # Voids 3 # Incontinent Voids 1 Date of Last Bowel Movement 04/07/18 04/08/18 04/08/18 # Bowel Movements 1 - Constitutional no acute distress, chronically ill appearing - Routine HEENT Exam Head: Present: normocephalic - Routine Respiratory Exam Present: CTA bilaterally - Routine Abdominal Exam Present: soft, normoactive bowel sounds. Absent: tenderness, distended, guarding - Routine Extremities Exam Present: full ROM - Routine Skin Exam Present: dry, warm - Routine Neurological Exam Present: alert - Routine Psychiatric Exam Present: normal affect, cooperative <Wood,Michelle - Last Filed: 04/08/18 12:28> Vital signs: Vital Signs 04/07/18 15:00 04/07/18 16:00 04/07/18 17:00 Temperature 98.2 F Pulse Rate 82 80 94 H Respiratory Rate 18 Blood Pressure 124/88 Pulse Oximetry 93 L 04/07/18 18:00 04/07/18 19:00 04/07/18 19:55 Temperature 98.2 F Pulse Rate 84 85 79 Respiratory Rate 17 Blood Pressure 124/75 Pulse Oximetry 93 L 04/07/18 20:00 04/07/18 20:29 04/07/18 21:00 Temperature Pulse Rate 74 88 Respiratory Rate Blood Pressure Pulse Oximetry 93 L 93 L 04/07/18 21:32 04/07/18 22:00 04/07/18 23:00 Temperature Pulse Rate 77 78 Respiratory Rate 6 L Blood Pressure Pulse Oximetry 04/08/18 00:00 04/08/18 01:00 04/08/18 02:00 Temperature 98.4 F Pulse Rate 77 72 71 Respiratory Rate 16 Blood Pressure 113/65 Pulse Oximetry 94 L 04/08/18 03:00 04/08/18 04:00 04/08/18 05:00 Temperature 98 F Pulse Rate 69 76 72 Respiratory Rate 17 Blood Pressure 122/74 Pulse Oximetry 94 L 04/08/18 06:00 04/08/18 07:00 04/08/18 08:00 Temperature 98 F Pulse Rate 73 75 70 Respiratory Rate 18 Blood Pressure 108/73 Pulse Oximetry 94 L 04/08/18 09:00 04/08/18 10:00 04/08/18 11:00 Temperature Pulse Rate 82 80 76 Respiratory Rate Blood Pressure Pulse Oximetry Intake & Output 04/07/18 04/08/18 04/08/18 18:59 06:59 18:59 Intake Total 480 / 480 1480 / 1480 1000 / 1000 Output Total 850 / 850 675 / 675 Balance -370 / -370 805 / 805 1000 / 1000 Weight 104 kg Intake: IV 1000 / 1000 1000 / 1000 NS Inj 1,000 ML @ 84 mls/hr IV. 1000 / 1000 1000 / 1000 CONT .[id number] [facility] Rx#:[id number] Oral 480 / 480 480 / 480 Output: Urine 850 / 850 675 / 675 Other: # Voids 3 # Incontinent Voids 1 Date of Last Bowel Movement 04/07/18 04/08/18 04/08/18 # Bowel Movements 1 <Zhou Wright - Last Filed: 04/08/18 14:14> Results - Labs CBC & Chem 7: 04/07/18 06:01 04/07/18 06:01 Laboratory Results - last 24 hr 04/07/18 04/07/18 04/08/18 17:13 20:12 08:31 POC Glucose 170 H 174 H 87 Microbiology 04/03/18 11:02 Blood - Peripheral Aerobic Blood Culture - Final No growth in 5 days 04/03/18 11:02 Blood - Peripheral Anaerobic Blood Culture - Final No growth in 5 days 04/03/18 11:09 Blood - Peripheral Aerobic Blood Culture - Final No growth in 5 days 04/03/18 11:09 Blood - Peripheral Anaerobic Blood Culture - Final No growth in 5 days - Imaging Impressions Abdomen/Bladder Ultrasound 04/07/18 00:00 CONCLUSION: 1. No findings to account for the patient's hematuria. 2. Nonvisualization of the left kidney. 3. No evidence of hydronephrosis or nephrolithiasis in the right kidney. - Procedures 03/22- cholecystostomy tube placement 03/23- cardiac cath <Michelle Wood - Last Filed: 04/08/18 12:28> - Labs CBC & Chem 7: 04/07/18 06:01 04/07/18 06:01 Laboratory Results - last 24 hr 1104/07/18 04/08/18 17:13 20:12 08:31 POC Glucose 170 H 174 H 87 04/08/18 12:30 POC Glucose 98 Microbiology 04/03/18 11:02 Blood - Peripheral Aerobic Blood Culture - Final No growth in 5 days 04/03/18 11:02 Blood - Peripheral Anaerobic Blood Culture - Final No growth in 5 days 04/03/18 11:09 Blood - Peripheral Aerobic Blood Culture - Final No growth in 5 days 04/03/18 11:09 Blood - Peripheral Anaerobic Blood Culture - Final No growth in 5 days <Zhou Wright - Last Filed: 04/08/18 14:14> Assessment and Plan (1) Intractable abdominal pain Status: Acute Code(s): R10.9 - Unspecified abdominal pain - Plan Assessment: - Colon wall thickening- CT abdomen and pelvis (03/19) Short segmental concentric wall thickening is identified in the distal descending colon. Colon malignancy needs to be excluded. Calcified gallstones with moderate distention of the gallbladder. Patient states last EGD/colonoscopy was done in 2006 prior to gastric bypass surgery. Reportedly normal exam. Family history of gastric cancer-he states his brother of gastric cancer at the age of 3838 years old. EGD/colonoscopy recommended when pt is cleared by cardiology and is stable - Acute cholecystitis - CTA abd/pelvis done to rule out mesenteric ischemia yesterday CTA abd/pelvis (03/22) Prominent gallbladder distention and surrounding inflammatory changes consistent with cholecystitis No acute vascular findings in the abdomen or pelvis. Poor surgical candidate, S/P cholecystostomy tube placement by IR. GS following - Klebsiella Pneumoniae bacteremia- ID following to determine etiology. KELLY negative for vegetation. Suspect secondary to acute cholecystitis - A-fib with RVR and elevated troponin- now rate controlled, on Amiodarone gtt, on Heparin- cardiology following (03/24) S/P cardiac cath- multivessel CAD, cardiothoracic surgery has been consulted. Dark bile output from cholecystostomy tube. 03/25/2018, continues with some right-sided abdominal pain around the area of right biliary drainage tube which shows small amount of dark bilious drainage Constipation questionable bowel movement states none in the past 6 days, will review medications Continues with IV fluids at 100 cc an hour. Until cardiothoracic consult and clearance for any further GI workup will follow as needed Hemoglobin stable at 9.8 and WBC count 13 no obvious bleeding 04/04/2018 Our service has been asked to see patient due to increasing liver function tests , possibly passed stone. Cholecystostomy tube in place with scant drainage noted in drainage collector of internal revenue bag. WBC 15.3 hemoglobin 9.8 hematocrit 30.3 total bilirubin 3.0 AST 228 ALT 170 alk phos 697 04/03/2018 MRCP revealed the following-- 1. Numerous filling defects within the central intrahepatic biliary ducts, common hepatic ducts, and common bile ducts. These represent stones and/or thrombus/hemorrhage. The linear defects are more likely related to hemorrhage. 2. Dilatation of the gallbladder with thickened gallbladder wall and a cholecystostomy tube in place. There is heterogeneous material within the gallbladder. 04/07/2018 Consultation to IR for evaluation of cholecystostomy tube. As per my discussion with Dr. Ramos, intervention to evaluate for patency of cholecystostomy tube not indicated at this time as drainage under previous evaluation noted to be "honey thick". WBC 11.8 hemoglobin 8.9 hematocrit 26.6 platelet count 411 total bilirubin 0.6 AST 65 ALT 80 alk phos 456 all trending down Patient afebrile at 98.4 04/08/2018 Patient up to bedside, reports feeling much better today. Denies any noted bleeding. No obvious bleeding reported. Cholecystostomy tube with drainage bag. No drainage noted. No new labs today. Patient afebrile at 98 F Plan -Cardiac diet as tolerated -Continue to monitor labs -Antiemetics and analgesia as per attending -Continue PPI -Continue bowel regimen -Supportive care -Further recommendations to follow This patient has been seen by myself and Dr. Wright and this note is written on his behalf - Attending Attestation Dr. Wright <Michelle Wood - Last Filed: 04/08/18 12:28> (1) Intractable abdominal pain Status: Acute Code(s): R10.9 - Unspecified abdominal pain - Attending Attestation Agree with the plan as above. asymptomatic now. stones likely passed, will follow up clinically and by lab. Will sign off for now, please notify us if needed again. <Zhou Wright - Last Filed: 04/08/18 14:14>
--- NOTE | 2018-04-08 20:35 | P.PN ---
Subjective Interval history: Feeling much better; LFT's normalized again. Physical Exam Vital signs: Vital Signs 04/07/18 21:00 04/07/18 21:32 04/07/18 22:00 Temperature Pulse Rate 88 77 Respiratory Rate 6 L Blood Pressure Pulse Oximetry 04/07/18 23:00 04/08/18 00:00 04/08/18 01:00 Temperature 98.4 F Pulse Rate 78 77 72 Respiratory Rate 16 Blood Pressure 113/65 Pulse Oximetry 94 L 04/08/18 02:00 04/08/18 03:00 04/08/18 04:00 Temperature 98 F Pulse Rate 71 69 76 Respiratory Rate 17 Blood Pressure 122/74 Pulse Oximetry 94 L 04/08/18 05:00 04/08/18 06:00 04/08/18 07:00 Temperature Pulse Rate 72 73 75 Respiratory Rate Blood Pressure Pulse Oximetry 04/08/18 08:00 04/08/18 09:00 04/08/18 10:00 Temperature 98 F Pulse Rate 70 82 80 Respiratory Rate 18 Blood Pressure 108/73 Pulse Oximetry 94 L 04/08/18 11:00 04/08/18 12:00 04/08/18 13:00 Temperature 98 F Pulse Rate 76 74 88 Respiratory Rate 18 Blood Pressure 118/70 Pulse Oximetry 94 L 04/08/18 14:00 04/08/18 15:00 04/08/18 16:00 Temperature 98.2 F Pulse Rate 84 89 82 Respiratory Rate 18 Blood Pressure 139/83 Pulse Oximetry 94 L 04/08/18 17:00 04/08/18 18:00 Temperature Pulse Rate 89 87 Respiratory Rate Blood Pressure Pulse Oximetry Intake & Output 04/08/18 04/08/18 04/09/18 06:59 18:59 06:59 Intake Total 1480 / 1480 1480 / 1480 Output Total 675 / 675 750 / 750 Balance 805 / 805 730 / 730 Weight 104 kg Intake: IV 1000 / 1000 1000 / 1000 NS Inj 1,000 ML @ 84 mls/hr IV. 1000 / 1000 1000 / 1000 CONT .[id number] [facility] Rx#:[id number] Oral 480 / 480 480 / 480 Output: Urine 675 / 675 750 / 750 Other: # Voids 3 # Incontinent Voids 1 Date of Last Bowel Movement 04/08/18 04/08/18 # Bowel Movements 1 1 - Constitutional no acute distress - Routine Respiratory Exam Present: CTA bilaterally - Routine Abdominal Exam Present: soft Comments: nontender - Routine Skin Exam Present: intact Comments: no jaundice Results - Labs CBC & Chem 7: 04/07/18 06:01 04/07/18 06:01 Laboratory Results - last 24 hr 04/08/18 04/08/18 04/08/18 08:31 12:30 17:37 POC Glucose 87 98 112 H Microbiology 04/03/18 11:02 Blood - Peripheral Aerobic Blood Culture - Final No growth in 5 days 04/03/18 11:02 Blood - Peripheral Anaerobic Blood Culture - Final No growth in 5 days 04/03/18 11:09 Blood - Peripheral Aerobic Blood Culture - Final No growth in 5 days 04/03/18 11:09 Blood - Peripheral Anaerobic Blood Culture - Final No growth in 5 days - Procedures 03/22- cholecystostomy tube placement 03/23- cardiac cath Assessment and Plan - Assessment (1) Intractable abdominal pain Code(s): R10.9 - Unspecified abdominal pain Status: Acute (2) NSTEMI (non-ST elevated myocardial infarction) Code(s): I21.4 - Non-ST elevation (NSTEMI) myocardial infarction Status: Acute (3) Afib Code(s): I48.91 - Unspecified atrial fibrillation Status: Acute (4) Cholecystitis Code(s): K81.9 - Cholecystitis, unspecified Status: Acute Plan: Continue with cholecystostomy tube; await CABG this next week; will follow with surgery in 3-4 weeks. Will see intermittently until then. - Attending Attestation I attest that I had a [id number] encounter with the patient on the same day, and personally performed and documented my assessment and findings in the medical record. The following services were provided during this hospital visit: Chart data review, vital sign assessments/reviewing monitor data Review of consultation notes if present Medication orders/review and/or management Ordering and/or reviewing lab tests Ordering and/or interpreting/reviewing x-rays and/or diagnostic studies Care of the patient and discussion of the patient with the care team Documentation time To help prompt me to consider important information that might be impacting today's encounter and assessment, Information from prior notes written by myself or my colleagues may have been "brought forward/copy and pasted" into today's note.
[2018-04-09 07:04] LABS: Baso # (Auto) 0.1 th/mm3 (0.0-0.2); Baso % (Auto) 0.7 % (0.0-2.0); Eos # (Auto) 0.2 th/mm3 (0.0-0.4); Eos % (Auto) 1.6 % (0.0-4.0); Hematocrit 26.3 % (39.0-51.0); Hemoglobin 8.7 gm/dL (13.0-17.0); Lymph # (Auto) 1.9 th/mm3 (1.0-4.8); Mean Corpuscular Hemoglobin 29.3 pg (27.0-34.0); Mean Corpuscular Volume 88.9 fL (80.0-100.0); Mean Platelet Volume 8.2 fL (7.0-11.0); Mono # (Auto) 1.1 th/mm3 (0.0-0.9); Neut # (Auto) 6.8 th/mm3 (1.8-7.7); Neut % (Auto) 67.7 % (16.0-70.0); Platelet Count 410 th/mm3 (150-450); Red Blood Count 2.96 mil/mm3 (4.50-5.90); Red Cell Distribution Width 15.7 % (11.6-17.2)
[2018-04-09 07:10] LABS: Alanine Aminotransferase 56 U/L (12-78); Anion Gap 6 meq/L (5-15); Aspartate Aminotransferase 38 U/L (15-37); Blood Urea Nitrogen 10 mg/dL (7-18); Calcium 7.7 mg/dL (8.5-10.1); Carbon Dioxide 27.9 meq/L (21.0-32.0); Chloride 104 meq/L (98-107); Glomerular Filtration Rate Greater Than 89 mL/min (>89); Glucose,Random 129 mg/dL (74-106); Potassium 4.2 meq/L (3.5-5.1); Sodium 138 meq/L (136-145)
[2018-04-09 07:13] LABS: Alkaline Phosphatase 324 U/L (45-117); Total Protein 6.4 g/dL (6.4-8.2)
[2018-04-09] MEDS: Insulin NovoLOG Aspart Correctional Sugar Inj SQ SCH ×4 (09:04→20:33)
[2018-04-09] MEDS: dilTIAZem 30 MG Tablet PO SCH ×4 (09:06→20:32)
[2018-04-09] MEDS: Magnesium Oxide 400 MG Tablet PO SCH ×2 (09:06→20:31)
[2018-04-09] MEDS: Insulin Detemir Inj 1,000 UNIT/10 ML Vial SQ SCH ×2 (09:07→20:33)
[2018-04-09] MEDS: Senna/Docusate Sodium 8.6/50 MG Tablet PO SCH ×2 (09:07→20:32)
[2018-04-09] MEDS: Sodium Chloride 0.9% 2 ML Flush BID IV.FLUSH SCH ×2 (09:07→20:34)
--- NOTE | 2018-04-09 09:09 | P.PNURO ---
Subjective Patient symptoms today: Pt seen and examined. Urine now clear off anticoagulation. Objective Vital Signs: Vital Signs 04/08/18 10:00 04/08/18 11:00 04/08/18 12:00 Temperature 98 F Pulse Rate 80 76 74 Respiratory Rate 18 Blood Pressure 118/70 Pulse Oximetry 94 L 04/08/18 13:00 04/08/18 14:00 04/08/18 15:00 Temperature Pulse Rate 88 84 89 Respiratory Rate Blood Pressure Pulse Oximetry 04/08/18 16:00 04/08/18 17:00 04/08/18 18:00 Temperature 98.2 F Pulse Rate 82 89 87 Respiratory Rate 18 Blood Pressure 139/83 Pulse Oximetry 94 L 04/08/18 19:00 04/08/18 20:00 04/08/18 21:00 Temperature 98.6 F Pulse Rate 82 77 81 Respiratory Rate 18 Blood Pressure 121/79 Pulse Oximetry 94 L 04/08/18 22:00 04/08/18 23:00 04/09/18 00:00 Temperature 98.2 F Pulse Rate 78 71 73 Respiratory Rate 18 Blood Pressure 118/69 Pulse Oximetry 95 04/09/18 01:00 04/09/18 02:00 04/09/18 03:00 Temperature Pulse Rate 71 76 74 Respiratory Rate Blood Pressure Pulse Oximetry 04/09/18 04:00 04/09/18 05:00 04/09/18 05:48 Temperature 98.8 F Pulse Rate 80 77 79 Respiratory Rate 18 Blood Pressure 116/71 Pulse Oximetry 94 L Intake & Output 04/08/18 04/09/18 04/09/18 18:59 06:59 18:59 Intake Total 1480 / 1480 1480 / 1480 Output Total 750 / 750 800 / 800 Balance 730 / 730 680 / 680 Weight 104.5 kg Intake: IV 1000 / 1000 1000 / 1000 NS Inj 1,000 ML @ 84 mls/hr IV. 1000 / 1000 1000 / 1000 CONT .[id number] [facility] Rx#:[id number] Oral 480 / 480 480 / 480 Output: Urine 750 / 750 800 / 800 Other: # Voids 3 Date of Last Bowel Movement 04/08/18 # Bowel Movements 1 1 Result Diagrams: 04/09/18 06:25 04/09/18 06:25 Medications and IVs: Active Medications Generic Name Dose Route Start Last Admin Trade Name Freq PRN Reason Stop Dose Admin Acetaminophen 650 mg 03/19/18 16:02 03/27/18 09:04 Tylenol PO 650 mg Q4H PRN Administration Temp > 100.4 Al Hydroxide/Mg Hydroxide 30 ml 03/19/18 16:02 03/25/18 15:47 Milk Of Magnesia Liq PO 30 ml Q12H PRN Administration Mild Constipation Atorvastatin Calcium 20 mg 03/28/18 09:00 04/08/18 08:34 Lipitor PO 20 mg DAILY [facility] Administration Bisacodyl 10 mg 03/19/18 16:02 04/03/18 14:07 Dulcolax Supp RECTAL 10 mg DAILY PRN Administration SEVERE CONSITIPATION Bisacodyl 10 mg 03/30/18 17:14 03/30/18 17:35 Dulcolax Ec PO 10 mg ONCE ONE Administration Dextrose 50 ml 03/19/18 16:51 [id number] Vial IV.PUSH UNSCH PRN PER HYPOGLYCEMIA PROTOCOL Diltiazem HCl 30 mg 03/23/18 13:00 04/08/18 20:20 Cardizem PO 30 mg QID [facility] Administration Glucagon 1 mg 03/19/18 16:51 Glucagon Inj OTHER PRN PRN for Hypoglycemia Protocol Sodium Chloride 1,000 mls @ 84 mls/hr 04/07/18 09:54 04/08/18 21:52 Ns Inj IV.CONT Not Given .[id number] [facility] Insulin Aspart 0 unit 03/27/18 17:00 04/08/18 20:33 Novolog Insulin Correctional Sugar Inj SQ 2 unit ACHS [facility] Administration Protocol Insulin Detemir 5 unit 03/27/18 14:37 04/08/18 20:25 Levemir Inj SQ 5 unit BID [facility] Administration Lactulose 30 ml 03/19/18 16:02 03/25/18 15:47 Lactulose Liq PO 30 ml DAILY PRN Administration SEVERE CONSITIPATION Magnesium Oxide 400 mg 03/22/18 14:45 04/08/18 20:25 Mag-Ox PO 400 mg BID [facility] Administration Metformin HCl 1,000 mg 03/27/18 21:00 04/08/18 20:21 Glucophage PO 1,000 mg BID [facility] Administration Morphine Sulfate 2 mg 03/31/18 11:26 04/03/18 11:00 Morphine Inj IV.PUSH 2 mg Q4H PRN Administration BREAKTHROUGH PAIN Oxycodone HCl 10 mg 03/31/18 11:25 04/08/18 20:21 Roxicodone PO 10 mg Q4H PRN Administration pain 6-10 Oxycodone HCl 5 mg 03/31/18 11:25 04/08/18 04:19 Roxicodone PO 5 mg Q4H PRN Administration pain 3-5 Pantoprazole Sodium 40 mg 03/19/18 16:15 04/08/18 08:33 Protonix PO 40 mg DAILY [facility] Administration Potassium Chloride 20 meq 03/29/18 09:00 04/08/18 08:33 K-Dur PO 20 meq DAILY [facility] Administration Prochlorperazine Edisylate 10 mg 04/03/18 17:47 04/08/18 13:54 Compazine Inj IV.PUSH 10 mg Q6H PRN Administration NAUSEA Senna/Docusate Sodium 1 tab 03/19/18 21:00 04/08/18 20:21 Carlotta-Colace PO 1 tab BID [facility] Administration Sennosides 17.2 mg 03/19/18 16:02 03/30/18 05:24 Senokot PO 17.2 mg Q12H PRN Administration Moderate Constipation Sodium Chloride 2 ml 03/20/18 09:00 04/08/18 20:21 Ns Flush IV.FLUSH 2 ml BID [facility] Administration Sodium Chloride 2 ml 03/20/18 00:12 03/26/18 02:04 Ns Flush IV.FLUSH 2 ml PRN PRN Administration FLUSH AFTER USING IV ACCESS Objective Remarks: Abd:soft,nt,nd Gross hematuria 04/09 Abd:soft,nt,nd Voiding clear urine. Assessment and Plan - Plan 67 y.o male s/p MA with gross hematuria voiding without clots. US showed normal bladder without mass or clots. Hgb 8.9. Continue IVF; not a good operative candidate Will need cysto in future when medically cleared. 04/09 67 y.o male s/p MA with gross hematuria. Hematuria has resolved after stopping anticoagulation. Continue IVF; not a good operative candidate Will need cysto prior to CABG to make sure he does not have a bladder tumor that will bleed once heparinized during a CABG.
--- NOTE | 2018-04-09 11:41 | P.PN ---
Subjective Interval history: Follow-up sepsis/cholecystitis/gross hematuria April 08, 2018-patient seen and examined, still with gross hematuria however no clot. Complains of episode of emesis this a.m. after breakfast. April 09, 2018-patient seen and examined, reports improvement hematuria. Also reports improvement of nausea. States he is feeling much better today. Physical Exam Vital signs: Vital Signs 04/08/18 12:00 04/08/18 13:00 04/08/18 14:00 Temperature 98 F Pulse Rate 74 88 84 Respiratory Rate 18 Blood Pressure 118/70 Pulse Oximetry 94 L 04/08/18 15:00 04/08/18 16:00 04/08/18 17:00 Temperature 98.2 F Pulse Rate 89 82 89 Respiratory Rate 18 Blood Pressure 139/83 Pulse Oximetry 94 L 04/08/18 18:00 04/08/18 19:00 04/08/18 20:00 Temperature 98.6 F Pulse Rate 87 82 77 Respiratory Rate 18 Blood Pressure 121/79 Pulse Oximetry 94 L 04/08/18 21:00 04/08/18 22:00 04/08/18 23:00 Temperature Pulse Rate 81 78 71 Respiratory Rate Blood Pressure Pulse Oximetry 04/09/18 00:00 04/09/18 01:00 04/09/18 02:00 Temperature 98.2 F Pulse Rate 73 71 76 Respiratory Rate 18 Blood Pressure 118/69 Pulse Oximetry 95 04/09/18 03:00 04/09/18 04:00 04/09/18 05:00 Temperature 98.8 F Pulse Rate 74 80 77 Respiratory Rate 18 Blood Pressure 116/71 Pulse Oximetry 94 L 04/09/18 05:48 04/09/18 08:00 Temperature 98 F Pulse Rate 79 74 Respiratory Rate 18 Blood Pressure 112/73 Pulse Oximetry 95 Intake & Output 04/08/18 04/09/18 04/09/18 18:59 06:59 18:59 Intake Total 1480 / 1480 1480 / 1480 Output Total 750 / 750 800 / 800 Balance 730 / 730 680 / 680 Weight 104.5 kg Intake: IV 1000 / 1000 1000 / 1000 NS Inj 1,000 ML @ 84 mls/hr IV. 1000 / 1000 1000 / 1000 CONT .[id number] [facility] Rx#:[id number] Oral 480 / 480 480 / 480 Output: Urine 750 / 750 800 / 800 Other: # Voids 3 Date of Last Bowel Movement 04/08/18 04/08/18 # Bowel Movements 1 1 Narrative: GENERAL: NAD, AAOx3 SKIN: Warm and dry. HEAD: Atraumatic. Normocephalic. EYES: Pupils equal and round. No scleral icterus. No injection or drainage. ENT: No nasal bleeding or discharge. Mucous membranes pink and moist. NECK: Trachea midline. No JVD. CARDIOVASCULAR: Irregularly irregular RESPIRATORY: No accessory muscle use. Clear to auscultation. Breath sounds equal bilaterally. GASTROINTESTINAL: Abdomen soft, mild tender RUQ, nondistended. Hepatic and splenic margins not palpable. MUSCULOSKELETAL: Extremities without clubbing, cyanosis, or edema. No obvious deformities. NEUROLOGICAL: Awake and alert. No obvious cranial nerve deficits. Motor grossly within normal limits. Five out of 5 muscle strength in the arms and legs. Normal speech. PSYCHIATRIC: Appropriate mood and affect; insight and judgment normal. Results - Labs CBC & Chem 7: 04/09/18 06:25 04/09/18 06:25 Laboratory Results - last 24 hr 04/08/18 04/08/18 04/08/18 12:30 17:37 20:29 WBC RBC Hgb Hct MCV MCH MCHC RDW Plt Count MPV Neut % (Auto) Lymph % (Auto) [place] % (Auto) Eos % (Auto) Baso % (Auto) Neut # (Auto) Lymph # (Auto) [place] # (Auto) Eos # (Auto) Baso # (Auto) WBC Differential Differential Comment Sodium Potassium Chloride Carbon Dioxide Anion Gap BUN Creatinine Estimated GFR POC Glucose 98 112 H 174 H Random Glucose Calcium Total Bilirubin AST ALT Alkaline Phosphatase Total Protein Albumin 04/09/18 04/09/18 04/09/18 06:25 06:25 08:30 WBC 10.0 RBC 2.96 L Hgb 8.7 L Hct 26.3 L MCV 88.9 MCH 29.3 MCHC 33.0 RDW 15.7 Plt Count 410 MPV 8.2 Neut % (Auto) 67.7 Lymph % (Auto) 19.0 [place] % (Auto) 11.0 H Eos % (Auto) 1.6 Baso % (Auto) 0.7 Neut # (Auto) 6.8 Lymph # (Auto) 1.9 [place] # (Auto) 1.1 H Eos # (Auto) 0.2 Baso # (Auto) 0.1 WBC Differential . Differential Comment Auto diff final Sodium 138 Potassium 4.2 Chloride 104 Carbon Dioxide 27.9 Anion Gap 6 BUN 10 Creatinine 0.70 Estimated GFR Greater than 89 POC Glucose 128 H Random Glucose 129 H Calcium 7.7 L Total Bilirubin 0.4 AST 38 H ALT 56 Alkaline Phosphatase 324 H Total Protein 6.4 Albumin 2.0 L Microbiology 04/03/18 11:02 Blood - Peripheral Aerobic Blood Culture - Final No growth in 5 days 04/03/18 11:02 Blood - Peripheral Anaerobic Blood Culture - Final No growth in 5 days 04/03/18 11:09 Blood - Peripheral Aerobic Blood Culture - Final No growth in 5 days 04/03/18 11:09 Blood - Peripheral Anaerobic Blood Culture - Final No growth in 5 days - Procedures 03/22- cholecystostomy tube placement 03/23- cardiac cath Assessment and Plan - Assessment (1) Cholecystitis Code(s): K81.9 - Cholecystitis, unspecified Status: Acute - Plan 67-year-old man with Sepsis/ Acute cholecystitis E. coli and Klebsiella pneumonia on blood cultures -03/19. S/p cholecystostomy tube drain- not a candidate for cholecystectomy at this time due to CAD and need for heart surgery. -Completed ceftriaxone 04/03. Per ID, patient can proceed to CABG if blood culture negative times 48 hours -continue with pain control as needed. -continue cholecystostomy drain care as directed. Patient may need stent placement to drain CBD versus ERCP -Appreciate input from general surgery, infectious disease specialist -LFTs trending down NSTEMI/Afib s/p cardiac cath with multivessel disease. Echo with EF 60% with no regional wall motion abnormalities. S/p KELLY with no vegetations. -CT surgery consult appreciated.Per ID, patient can proceed to CABG if blood culture negative times 48 hours -Continue ASA, Cardizem, Lipitor. Hematuria -Appreciate input from urology, continue to hold aspirin and Lovenox. Continue IV fluid hydration -Patient likely will need Cystoscopy prior to CABG -Continue to monitor H&H and transfuse accordingly DM II -continue Levemir and sliding scale and adjust as needed. DVT prophylaxis with B-SCD
[2018-04-09] MEDS: Sod Chloride 0.9% Inj 1,000 ML IV.CONT SCH ×2 (15:22→20:33)
--- NOTE | 2018-04-10 08:37 | P.PNURO ---
Subjective Patient symptoms today: Pt seen and examined. Urine is still clear. Objective Vital Signs: Vital Signs 04/09/18 09:00 04/09/18 10:00 04/09/18 11:00 Temperature Pulse Rate 74 76 70 Respiratory Rate Blood Pressure Pulse Oximetry 04/09/18 12:00 04/09/18 13:00 04/09/18 14:00 Temperature 98.1 F Pulse Rate 76 92 H 78 Respiratory Rate 18 Blood Pressure 120/66 Pulse Oximetry 96 04/09/18 15:00 04/09/18 16:00 04/09/18 17:00 Temperature 98.1 F Pulse Rate 102 H 74 74 Respiratory Rate 18 Blood Pressure 121/74 Pulse Oximetry 97 04/09/18 18:00 04/09/18 19:00 04/09/18 20:00 Temperature 98.6 F Pulse Rate 90 82 77 Respiratory Rate 18 Blood Pressure 116/70 Pulse Oximetry 95 04/09/18 21:00 04/09/18 22:00 04/09/18 23:00 Temperature Pulse Rate 82 77 75 Respiratory Rate Blood Pressure Pulse Oximetry 04/10/18 00:00 04/10/18 01:00 04/10/18 02:00 Temperature 98.2 F Pulse Rate 71 76 81 Respiratory Rate 18 Blood Pressure 120/73 Pulse Oximetry 96 04/10/18 03:00 04/10/18 03:56 04/10/18 04:00 Temperature 98 F Pulse Rate 78 68 80 Respiratory Rate 18 Blood Pressure 124/75 Pulse Oximetry 95 04/10/18 05:00 04/10/18 06:00 Temperature Pulse Rate 77 74 Respiratory Rate Blood Pressure Pulse Oximetry Intake & Output 04/09/18 04/10/18 04/10/18 18:59 06:59 18:59 Intake Total 1480 / 1480 1600 / 1600 Output Total 450 / 450 720 / 720 Balance 1030 / 1030 880 / 880 Weight 104.5 kg Intake: IV 1000 / 1000 1000 / 1000 NS Inj 1,000 ML @ 84 mls/hr IV. 1000 / 1000 1000 / 1000 CONT .[id number] [facility] Rx#:[id number] Oral 480 / 480 600 / 600 Output: Urine 450 / 450 700 / 700 Wound Drainage 20 / 20 Right Lower Abdomen Other: # Voids 4 Date of Last Bowel Movement 04/09/18 04/09/18 # Bowel Movements 2 1 Result Diagrams: 04/09/18 06:25 04/09/18 06:25 Medications and IVs: Active Medications Generic Name Dose Route Start Last Admin Trade Name Freq PRN Reason Stop Dose Admin Acetaminophen 650 mg 03/19/18 16:02 03/27/18 09:04 Tylenol PO 650 mg Q4H PRN Administration Temp > 100.4 Al Hydroxide/Mg Hydroxide 30 ml 03/19/18 16:02 03/25/18 15:47 Milk Of Magnesia Liq PO 30 ml Q12H PRN Administration Mild Constipation Atorvastatin Calcium 20 mg 03/28/18 09:00 04/09/18 09:06 Lipitor PO 20 mg DAILY THOMAS Administration Bisacodyl 10 mg 03/19/18 16:02 04/03/18 14:07 Dulcolax Supp RECTAL 10 mg DAILY PRN Administration SEVERE CONSITIPATION Bisacodyl 10 mg 03/30/18 17:14 03/30/18 17:35 Dulcolax Ec PO 10 mg ONCE ONE Administration Dextrose 50 ml 03/19/18 16:51 [id number] Vial IV.PUSH UNSCH PRN PER HYPOGLYCEMIA PROTOCOL Diltiazem HCl 30 mg 03/23/18 13:00 04/09/18 20:32 Cardizem PO 30 mg QID THOMAS Administration Glucagon 1 mg 03/19/18 16:51 Glucagon Inj OTHER PRN PRN for Hypoglycemia Protocol Sodium Chloride 1,000 mls @ 84 mls/hr 04/07/18 09:54 04/09/18 20:33 Ns Inj IV.CONT 84 mls/hr .[id number] THOMAS Administration Insulin Aspart 0 unit 03/27/18 17:00 04/09/18 20:33 Novolog Insulin Correctional Sugar Inj SQ 2 unit ACHS THOMAS Administration Protocol Insulin Detemir 5 unit 03/27/18 14:37 04/09/18 20:33 Levemir Inj SQ 5 unit BID THOMAS Administration Lactulose 30 ml 03/19/18 16:02 03/25/18 15:47 Lactulose Liq PO 30 ml DAILY PRN Administration SEVERE CONSITIPATION Magnesium Oxide 400 mg 03/22/18 14:45 04/09/18 20:31 Mag-Ox PO 400 mg BID THOMAS Administration Metformin HCl 1,000 mg 03/27/18 21:00 04/09/18 20:31 Glucophage PO 1,000 mg BID THOMAS Administration Morphine Sulfate 2 mg 03/31/18 11:26 04/03/18 11:00 Morphine Inj IV.PUSH 2 mg Q4H PRN Administration BREAKTHROUGH PAIN Oxycodone HCl 10 mg 03/31/18 11:25 04/09/18 20:32 Roxicodone PO 10 mg Q4H PRN Administration pain 6-10 Oxycodone HCl 5 mg 03/31/18 11:25 04/08/18 04:19 Roxicodone PO 5 mg Q4H PRN Administration pain 3-5 Pantoprazole Sodium 40 mg 03/19/18 16:15 04/09/18 09:06 Protonix PO 40 mg DAILY THOMAS Administration Potassium Chloride 20 meq 03/29/18 09:00 04/09/18 09:06 K-Dur PO 20 meq DAILY THOMAS Administration Prochlorperazine Edisylate 10 mg 04/03/18 17:47 04/08/18 13:54 Compazine Inj IV.PUSH 10 mg Q6H PRN Administration NAUSEA Senna/Docusate Sodium 1 tab 03/19/18 21:00 04/09/18 20:32 Carlotta-Colace PO 1 tab BID THOMAS Administration Sennosides 17.2 mg 03/19/18 16:02 03/30/18 05:24 Senokot PO 17.2 mg Q12H PRN Administration Moderate Constipation Sodium Chloride 2 ml 03/20/18 09:00 04/09/18 20:34 Ns Flush IV.FLUSH 2 ml BID THOMAS Administration Sodium Chloride 2 ml 03/20/18 00:12 03/26/18 02:04 Ns Flush IV.FLUSH 2 ml PRN PRN Administration FLUSH AFTER USING IV ACCESS Objective Remarks: Abd:soft,nt,nd Gross hematuria 04/09 Abd:soft,nt,nd Voiding clear urine. 04/10 Abd:soft,nt,nd Voiding clear urine. Assessment and Plan - Plan 67 y.o male s/p RI with gross hematuria voiding without clots. US showed normal bladder without mass or clots. Hgb 8.9. Continue IVF; not a good operative candidate Will need cysto in future when medically cleared. 04/09 67 y.o male s/p RI with gross hematuria. Hematuria has resolved after stopping anticoagulation. Continue IVF; not a good operative candidate Will need cysto prior to CABG to make sure he does not have a bladder tumor that will bleed once heparinized during a CABG. 04/10 67 y.o male s/p RI with gross hematuria. Hematuria has resolved after stopping anticoagulation. Continue IVF; not a good operative candidate at the present time Will perform cysto this week at bedside.
[2018-04-10] MEDS: Magnesium Oxide 400 MG Tablet PO SCH ×2 (10:29→21:14)
[2018-04-10] MEDS: dilTIAZem 30 MG Tablet PO SCH ×4 (10:29→21:15)
[2018-04-10] MEDS: Insulin NovoLOG Aspart Correctional Sugar Inj SQ SCH ×4 (10:30→21:40)
[2018-04-10] MEDS: Senna/Docusate Sodium 8.6/50 MG Tablet PO SCH ×2 (10:30→21:14)
[2018-04-10] MEDS: Insulin Detemir Inj 1,000 UNIT/10 ML Vial SQ SCH ×2 (10:30→21:41)
[2018-04-10] MEDS: Sod Chloride 0.9% Inj 1,000 ML IV.CONT SCH ×3 (10:30→23:37)
[2018-04-10] MEDS: Sodium Chloride 0.9% 2 ML Flush BID IV.FLUSH SCH ×2 (10:30→21:15)
--- NOTE | 2018-04-10 10:40 | P.PN ---
Subjective Interval history: Follow-up sepsis/cholecystitis/gross hematuria April 08, 2018-patient seen and examined, still with gross hematuria however no clot. Complains of episode of emesis this a.m. after breakfast. April 09, 2018-patient seen and examined, reports improvement hematuria. Also reports improvement of nausea. States he is feeling much better today. April 10, 2018-patient seen and examined, no complaint this morning. No nausea or vomiting. Urine clear. Physical Exam Vital signs: Vital Signs 04/09/18 11:00 04/09/18 12:00 04/09/18 13:00 Temperature 98.1 F Pulse Rate 70 76 92 H Respiratory Rate 18 Blood Pressure 120/66 Pulse Oximetry 96 04/09/18 14:00 04/09/18 15:00 04/09/18 16:00 Temperature 98.1 F Pulse Rate 78 102 H 74 Respiratory Rate 18 Blood Pressure 121/74 Pulse Oximetry 97 04/09/18 17:00 04/09/18 18:00 04/09/18 19:00 Temperature Pulse Rate 74 90 82 Respiratory Rate Blood Pressure Pulse Oximetry 04/09/18 20:00 04/09/18 21:00 04/09/18 22:00 Temperature 98.6 F Pulse Rate 77 82 77 Respiratory Rate 18 Blood Pressure 116/70 Pulse Oximetry 95 04/09/18 23:00 04/10/18 00:00 04/10/18 01:00 Temperature 98.2 F Pulse Rate 75 71 76 Respiratory Rate 18 Blood Pressure 120/73 Pulse Oximetry 96 04/10/18 02:00 04/10/18 03:00 04/10/18 03:56 Temperature 98 F Pulse Rate 81 78 68 Respiratory Rate 18 Blood Pressure 124/75 Pulse Oximetry 95 04/10/18 04:00 04/10/18 05:00 04/10/18 06:00 Temperature Pulse Rate 80 77 74 Respiratory Rate Blood Pressure Pulse Oximetry Intake & Output 04/09/18 04/10/18 04/10/18 18:59 06:59 18:59 Intake Total 1480 / 1480 1600 / 1600 1000 / 1000 Output Total 450 / 450 720 / 720 Balance 1030 / 1030 880 / 880 1000 / 1000 Weight 104.5 kg Intake: IV 1000 / 1000 1000 / 1000 1000 / 1000 NS Inj 1,000 ML @ 84 mls/hr IV. 1000 / 1000 1000 / 1000 1000 / 1000 CONT .[id number] [facility] Rx#:[id number] Oral 480 / 480 600 / 600 Output: Urine 450 / 450 700 / 700 Wound Drainage Right Lower Abdomen Other: # Voids 4 Date of Last Bowel Movement 04/09/18 04/09/18 # Bowel Movements 2 1 Narrative: GENERAL: NAD, AAOx3 SKIN: Warm and dry. HEAD: Atraumatic. Normocephalic. EYES: Pupils equal and round. No scleral icterus. No injection or drainage. ENT: No nasal bleeding or discharge. Mucous membranes pink and moist. NECK: Trachea midline. No JVD. CARDIOVASCULAR: Irregularly irregular RESPIRATORY: No accessory muscle use. Clear to auscultation. Breath sounds equal bilaterally. GASTROINTESTINAL: Abdomen soft, mild tender RUQ, nondistended. Hepatic and splenic margins not palpable. MUSCULOSKELETAL: Extremities without clubbing, cyanosis, or edema. No obvious deformities. NEUROLOGICAL: Awake and alert. No obvious cranial nerve deficits. Motor grossly within normal limits. Five out of 5 muscle strength in the arms and legs. Normal speech. PSYCHIATRIC: Appropriate mood and affect; insight and judgment normal. Results - Labs CBC & Chem 7: 04/09/18 06:25 04/09/18 06:25 Laboratory Results - last 24 hr 04/09/18 04/09/18 04/09/18 12:13 17:20 20:07 POC Glucose 140 H 130 H 159 H 04/10/18 07:57 POC Glucose 109 - Procedures 03/22- cholecystostomy tube placement 03/23- cardiac cath Assessment and Plan - Assessment (1) Cholecystitis Code(s): K81.9 - Cholecystitis, unspecified Status: Acute - Plan 67-year-old man with Sepsis/ Acute cholecystitis E. coli and Klebsiella pneumonia on blood cultures -03/19. S/p cholecystostomy tube drain- not a candidate for cholecystectomy at this time due to CAD and need for heart surgery. -Completed ceftriaxone 04/03. Per ID, patient can proceed to CABG as blood cultures have remained negative -continue with pain control as needed. -continue cholecystostomy drain care as directed. Patient may need stent placement to drain CBD versus ERCP -Appreciate input from general surgery, infectious disease specialist -LFTs trending down NSTEMI/Afib s/p cardiac cath with multivessel disease. Echo with EF 60% with no regional wall motion abnormalities. S/p KELLY with no vegetations. -CT surgery consult appreciated.Per ID, patient can proceed to CABG if blood culture negative times 48 hours -Continue ASA, Cardizem, Lipitor. Hematuria -Appreciate input from urology, continue to hold aspirin and Lovenox. Continue IV fluid hydration -Patient likely will need Cystoscopy at bedside this week prior to CABG -Continue to monitor H&H and transfuse accordingly DM II -continue Levemir and sliding scale and adjust as needed. DVT prophylaxis with B-SCD
--- NOTE | 2018-04-10 10:51 | P.PNCV ---
- Note Subjective/Hospital Course: 67-year-old male who presented to [facility] 03/19/18 due to nausea, vomiting and abdominal pain. He states that he was awakened at 6 a.m. with left -sided flank pain and left mid back pain radiating to the left lower quadrant. He developed nausea and vomiting secondary to the pain. he was incidentally found to have cholecystitis, perc burt tube was placed , Trop was + underwent cardiac cath by Dr Pérez : mid LAD 80%, Left Circ 70 % lesion, RCA 100% occluded in the mid portion with [id number] and right-to- right collaterals supplying the distal portion. Blood cultures grew klebsiella pneumoniae and E coli , followed by ID and recommended to at least complete one week course of IV antibiotics prior to surgery PAST MEDICAL HISTORY: Diabetes, GERD, Hyperlipidemia, morbid obesity with BMI 40, History of gastric bypass. 03/27 pt is pain free at this time , has perc burt drain US of lower ext neg for DVT, Carotid US no stenosis continues on IV antibiotics per ID : VIVIENNE cefepime IV Ceftriaxone IV once a day (stop date: 04/03/2018) after which we will repeat BCX on 04/04/18. If these repeat bcx are negative at 48 hrs and patient clinically doing well will clear him from CABG. DC Flagyl consult PT 03/28 pain free will follow / schedule for surgery next week when cleared by ID 03/29 still has some mild right flank pain burt drain in place no chest pain 04/03 c/o of nausea and vomiting since last night , also some abdominal pain for repeat CT abdomen today also repeat Blood cultures pending 04/05 still complaining of nausea and vomiting burt drain in place 04/10 events noted over weekend blood culture neg 04/03 , off all antibiotics still has burt drain , nursing flushing periodically per Uro / will perform bedside cystoscopy at bedside this week / urine has cleared since Heparin vivienne General surgery / will see after 3-4 weeks after CABG to eval for cholecystectomy will discuss timing for surgery with Dr Carlin no further complaints of nausea / vomiting Objective: Vital Signs - 24 hr 04/09/18 11:00 04/09/18 12:00 04/09/18 13:00 Temperature 98.1 F Pulse Rate 70 76 92 H Respiratory Rate 18 Blood Pressure 120/66 Pulse Oximetry 96 04/09/18 14:00 04/09/18 15:00 04/09/18 16:00 Temperature 98.1 F Pulse Rate 78 102 H 74 Respiratory Rate 18 Blood Pressure 121/74 Pulse Oximetry 97 04/09/18 17:00 04/09/18 18:00 04/09/18 19:00 Temperature Pulse Rate 74 90 82 Respiratory Rate Blood Pressure Pulse Oximetry 04/09/18 20:00 04/09/18 21:00 04/09/18 22:00 Temperature 98.6 F Pulse Rate 77 82 77 Respiratory Rate 18 Blood Pressure 116/70 Pulse Oximetry 95 04/09/18 23:00 04/10/18 00:00 04/10/18 01:00 Temperature 98.2 F Pulse Rate 75 71 76 Respiratory Rate 18 Blood Pressure 120/73 Pulse Oximetry 96 04/10/18 02:00 04/10/18 03:00 04/10/18 03:56 Temperature 98 F Pulse Rate 81 78 68 Respiratory Rate 18 Blood Pressure 124/75 Pulse Oximetry 95 04/10/18 04:00 04/10/18 05:00 04/10/18 06:00 Temperature Pulse Rate 80 77 74 Respiratory Rate Blood Pressure Pulse Oximetry GENERAL: A&O x 3 SKIN: Warm and dry. HEAD: Normocephalic. EYES: No scleral icterus. No injection or drainage. NECK: Supple, trachea midline. No JVD or lymphadenopathy. CARDIOVASCULAR: Regular rate and rhythm without murmurs, gallops, or rubs. RESPIRATORY: Breath sounds equal bilaterally. No accessory muscle use. diminished in bases GASTROINTESTINAL: Abdomen soft, non-tender, nondistended. burt tube in place / draining bile color drainage MUSCULOSKELETAL: No cyanosis, or edema. BACK: Nontender without obvious deformity. No CVA tenderness. Labs: Laboratory Results - last 12 hr 04/10/18 07:57 POC Glucose 109 Result Diagrams: 04/09/18 06:25 04/09/18 06:25 Telemetry: NSR - Plan (1) Coronary artery disease involving andreafski coronary artery Plan: all physician practice consultant notes reviewed will discuss timing of surgery with Dr Tesfaye RODRIGUEZ/ PT (3) Afib Plan: in NSR (4) Cholecystitis Plan: s/p perc drain general surgery following
--- NOTE | 2018-04-10 12:14 | P.PNCA ---
Subjective Interval history: Events over holiday weekend noted No further hematuria No nausea/emesis Medications and Allergies Active Medications: Active Medications Acetaminophen (Tylenol) 650 mg PO Q4H PRN PRN Reason: Temp > 100.4 Last Admin: 03/27/18 09:04 Dose: 650 mg Al Hydroxide/Mg Hydroxide (Milk Of Magnesia Liq) 30 ml PO Q12H PRN PRN Reason: Mild Constipation Last Admin: 03/25/18 15:47 Dose: 30 ml Atorvastatin Calcium (Lipitor) 20 mg PO DAILY [facility] Last Admin: 04/10/18 10:29 Dose: 20 mg Bisacodyl (Dulcolax Supp) 10 mg RECTAL DAILY PRN PRN Reason: SEVERE CONSITIPATION Last Admin: 04/03/18 14:07 Dose: 10 mg Bisacodyl (Dulcolax Ec) 10 mg PO ONCE ONE Last Admin: 03/30/18 17:35 Dose: 10 mg Dextrose (D50w Vial) 50 ml IV.PUSH UNSCH PRN PRN Reason: PER HYPOGLYCEMIA PROTOCOL Diltiazem HCl (Cardizem) 30 mg PO QID [facility] Last Admin: 04/10/18 10:29 Dose: 30 mg Glucagon (Glucagon Inj) 1 mg OTHER PRN PRN PRN Reason: for Hypoglycemia Protocol Sodium Chloride (Ns Inj) 1,000 mls @ 84 mls/hr IV.CONT .[id number] [facility] Last Admin: 04/10/18 10:30 Dose: 84 mls/hr Insulin Aspart (Novolog Insulin Correctional Sugar Inj) 0 unit SQ ACHS [facility]; Protocol Last Admin: 04/10/18 10:30 Dose: Not Given Insulin Detemir (Levemir Inj) 5 unit SQ BID [facility] Last Admin: 04/10/18 10:30 Dose: 5 unit Lactulose (Lactulose Liq) 30 ml PO DAILY PRN PRN Reason: SEVERE CONSITIPATION Last Admin: 03/25/18 15:47 Dose: 30 ml Magnesium Oxide (Mag-Ox) 400 mg PO BID [facility] Last Admin: 04/10/18 10:29 Dose: 400 mg Metformin HCl (Glucophage) 1,000 mg PO BID [facility] Last Admin: 04/10/18 10:29 Dose: 1,000 mg Morphine Sulfate (Morphine Inj) 2 mg IV.PUSH Q4H PRN PRN Reason: BREAKTHROUGH PAIN Last Admin: 04/03/18 11:00 Dose: 2 mg Oxycodone HCl (Roxicodone) 10 mg PO Q4H PRN PRN Reason: pain 6-10 Last Admin: 04/09/18 20:32 Dose: 10 mg Oxycodone HCl (Roxicodone) 5 mg PO Q4H PRN PRN Reason: pain 3-5 Last Admin: 04/08/18 04:19 Dose: 5 mg Pantoprazole Sodium (Protonix) 40 mg PO DAILY [facility] Last Admin: 04/10/18 10:29 Dose: 40 mg Potassium Chloride (K-Dur) 20 meq PO DAILY [facility] Last Admin: 04/10/18 10:30 Dose: 20 meq Prochlorperazine Edisylate (Compazine Inj) 10 mg IV.PUSH Q6H PRN PRN Reason: NAUSEA Last Admin: 04/08/18 13:54 Dose: 10 mg Senna/Docusate Sodium (Carlotta-Colace) 1 tab PO BID [facility] Last Admin: 04/10/18 10:30 Dose: 1 tab Sennosides (Senokot) 17.2 mg PO Q12H PRN PRN Reason: Moderate Constipation Last Admin: 03/30/18 05:24 Dose: 17.2 mg Sodium Chloride (Ns Flush) 2 ml IV.FLUSH BID [facility] Last Admin: 04/10/18 10:30 Dose: 2 ml Sodium Chloride (Ns Flush) 2 ml IV.FLUSH PRN PRN PRN Reason: FLUSH AFTER USING IV ACCESS Last Admin: 03/26/18 02:04 Dose: 2 ml Allergies Allergy/AdvReac Type Severity Reaction Status Date / Time No Known Allergies Allergy Verified 03/19/18 10:28 Home Medications Medication Instructions Recorded Confirmed Type atorvastatin 20 mg PO DAILY 03/19/18 03/19/18 History liraglutide [Victoza 2-Sonido] 0.6 mg SUBCUT DAILY 03/19/18 03/19/18 History metformin 1,000 mg PO BID 03/19/18 03/19/18 History omeprazole-sodium bicarbonate 1 cap PO DAILY 03/19/18 03/19/18 History pantoprazole 20 mg PO DAILY 03/19/18 03/19/18 History Physical Exam Vital signs: Vital Signs 04/09/18 13:00 04/09/18 14:00 04/09/18 15:00 Temperature Pulse Rate 92 H 78 102 H Respiratory Rate Blood Pressure Pulse Oximetry 04/09/18 16:00 04/09/18 17:00 04/09/18 18:00 Temperature 98.1 F Pulse Rate 74 74 90 Respiratory Rate 18 Blood Pressure 121/74 Pulse Oximetry 97 04/09/18 19:00 04/09/18 20:00 04/09/18 21:00 Temperature 98.6 F Pulse Rate 82 77 82 Respiratory Rate 18 Blood Pressure 116/70 Pulse Oximetry 95 04/09/18 22:00 04/09/18 23:00 04/10/18 00:00 Temperature 98.2 F Pulse Rate 77 75 71 Respiratory Rate 18 Blood Pressure 120/73 Pulse Oximetry 96 04/10/18 01:00 04/10/18 02:00 04/10/18 03:00 Temperature Pulse Rate 76 81 78 Respiratory Rate Blood Pressure Pulse Oximetry 04/10/18 03:56 04/10/18 04:00 04/10/18 05:00 Temperature 98 F Pulse Rate 68 80 77 Respiratory Rate 18 Blood Pressure 124/75 Pulse Oximetry 95 04/10/18 06:00 04/10/18 07:00 04/10/18 08:00 Temperature 97.7 F Pulse Rate 74 66 86 Respiratory Rate 18 Blood Pressure 110/62 Pulse Oximetry 98 04/10/18 10:45 04/10/18 11:00 Temperature Pulse Rate 81 Respiratory Rate Blood Pressure Pulse Oximetry 96 Intake & Output 04/09/18 04/10/18 04/10/18 18:59 06:59 18:59 Intake Total 1480 / 1480 1600 / 1600 1000 / 1000 Output Total 450 / 450 720 / 720 Balance 1030 / 1030 880 / 880 1000 / 1000 Weight 104.5 kg Intake: IV 1000 / 1000 1000 / 1000 1000 / 1000 NS Inj 1,000 ML @ 84 mls/hr IV. 1000 / 1000 1000 / 1000 1000 / 1000 CONT .[id number] [facility] Rx#:[id number] Oral 480 / 480 600 / 600 Output: Urine 450 / 450 700 / 700 Wound Drainage 20 / 20 Right Lower Abdomen 20 / 20 Other: # Voids 4 Date of Last Bowel Movement 04/09/18 04/09/18 04/09/18 # Bowel Movements 2 1 Narrative: GENERAL: NAD, AAOx3 SKIN: Warm and dry. HEAD: Atraumatic. Normocephalic. EYES: Pupils equal and round. No scleral icterus. No injection or drainage. ENT: No nasal bleeding or discharge. Mucous membranes pink and moist. NECK: Trachea midline. No JVD. CARDIOVASCULAR: Irregularly irregular RESPIRATORY: No accessory muscle use. Clear to auscultation. Breath sounds equal bilaterally. GASTROINTESTINAL: Abdomen soft, mild tender RUQ, nondistended. Hepatic and splenic margins not palpable. MUSCULOSKELETAL: Extremities without clubbing, cyanosis, or edema. No obvious deformities. NEUROLOGICAL: Awake and alert. No obvious cranial nerve deficits. Motor grossly within normal limits. Five out of 5 muscle strength in the arms and legs. Normal speech. PSYCHIATRIC: Appropriate mood and affect; insight and judgment normal. Results 04/09/18 06:25 04/09/18 06:25 Cardiac Enzymes 04/09/18 Range/Units 06:25 AST 38 H (15-37) U/L CBC 04/09/18 Range/Units 06:25 WBC 10.0 (4.0-11.0) th/mm3 RBC 2.96 L (4.50-5.90) mil/mm3 Hgb 8.7 L (13.0-17.0) gm/dL Hct 26.3 L (39.0-51.0) % Plt Count 410 (150-450) th/mm3 Neut # (Auto) 6.8 (1.8-7.7) th/mm3 Lymph # (Auto) 1.9 (1.0-4.8) th/mm3 [place] # (Auto) 1.1 H (0.0-0.9) th/mm3 Eos # (Auto) 0.2 (0.0-0.4) th/mm3 Baso # (Auto) 0.1 (0.0-0.2) th/mm3 Comprehensive Metabolic Panel 04/09/18 Range/Units 06:25 Sodium 138 (136-145) meq/L Potassium 4.2 (3.5-5.1) meq/L Chloride 104 (98-107) meq/L Carbon Dioxide 27.9 (21.0-32.0) meq/L BUN 10 (7-18) mg/dL Creatinine 0.70 (0.60-1.30) mg/dL Calcium 7.7 L (8.5-10.1) mg/dL AST 38 H (15-37) U/L ALT 56 (12-78) U/L Alkaline Phosphatase 324 H (45-117) U/L Total Protein 6.4 (6.4-8.2) g/dL Albumin 2.0 L (3.4-5.0) g/dL Intake and Output 04/09/18 04/10/18 04/10/18 22:59 06:59 14:59 Intake Total 1480 / 1480 600 / 600 1000 / 1000 Output Total 450 / 450 720 / 720 Balance 1030 / 1030 -120 / -120 1000 / 1000 Intake: IV 1000 / 1000 1000 / 1000 NS Inj 1,000 ML @ 84 mls/hr IV. 1000 / 1000 1000 / 1000 CONT .[id number] [facility] Rx#:[id number] Oral 480 / 480 600 / 600 Output: Urine 450 / 450 700 / 700 Wound Drainage Right Lower Abdomen Other: # Voids 4 Date of Last Bowel Movement 04/09/18 04/09/18 04/09/18 # Bowel Movements 2 1 Weight 104.5 kg Assessment and Plan - Assessment (1) NSTEMI (non-ST elevated myocardial infarction) Code(s): I21.4 - Non-ST elevation (NSTEMI) myocardial infarction Status: Acute (2) Afib Code(s): I48.91 - Unspecified atrial fibrillation Status: Acute (3) SIRS (systemic inflammatory response syndrome) Code(s): R65.10 - Systemic inflammatory response syndrome (SIRS) of non- infectious origin without acute organ dysfunction Status: Acute (4) Intractable abdominal pain Code(s): R10.9 - Unspecified abdominal pain Status: Acute - Plan 1) Abdominal pain/nausea/emesis Found to have cholecystitis Perc burt drain in place with relief of symptoms 2) NSTEMI Found to have multivessel CAD CT surgery evaluation Complex case with acute cholecystitis with percutaneous cholecystostomy tube Await repeat blood cultures, if negative then CABG 3) Afib New onset Started on Cardizem, heart rates controlled Eventual anti-coagulation 4) Bacteremia KELLY negative for vegetation, no signs of endocarditis 5) Hematuria ASA/Lovenox stopped Plan for cystoscopy this week at the bedside With NSTEMI/MVCAD/AFib, needs to be on at least ASA 81mg daily as soon as possible 6) MRCP showing multiple stones in the common bile duct No further symptoms Most likely passed the stones
--- NOTE | 2018-04-10 13:12 | P.PN ---
Subjective Interval history: Patient feels fairly well; indicated that he is probably going to have endoscopy today. Physical Exam Vital signs: Vital Signs 04/09/18 14:00 04/09/18 15:00 04/09/18 16:00 Temperature 98.1 F Pulse Rate 78 102 H 74 Respiratory Rate 18 Blood Pressure 121/74 Pulse Oximetry 97 04/09/18 17:00 04/09/18 18:00 04/09/18 19:00 Temperature Pulse Rate 74 90 82 Respiratory Rate Blood Pressure Pulse Oximetry 04/09/18 20:00 04/09/18 21:00 04/09/18 22:00 Temperature 98.6 F Pulse Rate 77 82 77 Respiratory Rate 18 Blood Pressure 116/70 Pulse Oximetry 95 04/09/18 23:00 04/10/18 00:00 04/10/18 01:00 Temperature 98.2 F Pulse Rate 75 71 76 Respiratory Rate 18 Blood Pressure 120/73 Pulse Oximetry 96 04/10/18 02:00 04/10/18 03:00 04/10/18 03:56 Temperature 98 F Pulse Rate 81 78 68 Respiratory Rate 18 Blood Pressure 124/75 Pulse Oximetry 95 04/10/18 04:00 04/10/18 05:00 04/10/18 06:00 Temperature Pulse Rate 80 77 74 Respiratory Rate Blood Pressure Pulse Oximetry 04/10/18 07:00 04/10/18 08:00 04/10/18 10:45 Temperature 97.7 F Pulse Rate 66 86 Respiratory Rate 18 Blood Pressure 110/62 Pulse Oximetry 98 96 04/10/18 11:00 Temperature Pulse Rate 81 Respiratory Rate Blood Pressure Pulse Oximetry Intake & Output 04/09/18 04/10/18 04/10/18 18:59 06:59 18:59 Intake Total 1480 / 1480 1600 / 1600 1000 / 1000 Output Total 450 / 450 720 / 720 Balance 1030 / 1030 880 / 880 1000 / 1000 Weight 104.5 kg Intake: IV 1000 / 1000 1000 / 1000 1000 / 1000 NS Inj 1,000 ML @ 84 mls/hr IV. 1000 / 1000 1000 / 1000 1000 / 1000 CONT .[id number] [facility] Rx#:[id number] Oral 480 / 480 600 / 600 Output: Urine 450 / 450 700 / 700 Wound Drainage 20 / 20 Right Lower Abdomen 20 Other: # Voids 4 Date of Last Bowel Movement 04/09/18 04/09/18 04/09/18 # Bowel Movements 2 1 Results - Labs CBC & Chem 7: 04/09/18 06:25 04/09/18 06:25 Laboratory Results - last 24 hr 04/09/18 04/09/18 04/10/18 17:20 20:07 07:57 POC Glucose 130 H 159 H 109 04/10/18 12:21 POC Glucose 127 H - Procedures 03/22- cholecystostomy tube placement 03/23- cardiac cath Assessment and Plan - Assessment (1) Intractable abdominal pain Code(s): R10.9 - Unspecified abdominal pain Status: Acute (2) NSTEMI (non-ST elevated myocardial infarction) Code(s): I21.4 - Non-ST elevation (NSTEMI) myocardial infarction Status: Acute (3) Afib Code(s): I48.91 - Unspecified atrial fibrillation Status: Acute (4) Cholecystitis Code(s): K81.9 - Cholecystitis, unspecified Status: Acute Plan: Continue with cholecystostomy tube; await CABG this next week; will follow with surgery in 3-4 weeks. Will see intermittently until then. For possible ERCP today.
[2018-04-11 06:45] LABS: Baso # (Auto) 0.1 th/mm3 (0.0-0.2); Baso % (Auto) 0.8 % (0.0-2.0); Eos # (Auto) 0.2 th/mm3 (0.0-0.4); Eos % (Auto) 2.1 % (0.0-4.0); Hematocrit 27.4 % (39.0-51.0); Hemoglobin 9.1 gm/dL (13.0-17.0); Lymph # (Auto) 1.9 th/mm3 (1.0-4.8); Lymph % (Auto) 24.2 % (9.0-44.0); Mean Corpuscular HGB Conc 33.2 % (32.0-36.0); Mean Corpuscular Hemoglobin 29.2 pg (27.0-34.0); Mean Corpuscular Volume 88.1 fL (80.0-100.0); Mean Platelet Volume 8.8 fL (7.0-11.0); Mono # (Auto) 0.7 th/mm3 (0.0-0.9); Mono % (Auto) 9.3 % (0.0-8.0); Neut # (Auto) 5.1 th/mm3 (1.8-7.7); Neut % (Auto) 63.6 % (16.0-70.0); Platelet Count 386 th/mm3 (150-450); Red Blood Count 3.11 mil/mm3 (4.50-5.90); Red Cell Distribution Width 15.5 % (11.6-17.2); White Blood Count 8.1 th/mm3 (4.0-11.0)
[2018-04-11 06:52] LABS: Alanine Aminotransferase 53 U/L (12-78); Albumin 2.3 g/dL (3.4-5.0); Anion Gap 5 meq/L (5-15); Aspartate Aminotransferase 38 U/L (15-37); Blood Urea Nitrogen 10 mg/dL (7-18); Calcium 8.1 mg/dL (8.5-10.1); Carbon Dioxide 28.2 meq/L (21.0-32.0); Chloride 106 meq/L (98-107); Glomerular Filtration Rate Greater Than 89 mL/min (>89); Glucose,Random 81 mg/dL (74-106); Potassium 3.8 meq/L (3.5-5.1); Sodium 139 meq/L (136-145)
[2018-04-11 06:53] LABS: Alkaline Phosphatase 290 U/L (45-117); Total Protein 6.9 g/dL (6.4-8.2)
[2018-04-11] MEDS: Insulin Detemir Inj 1,000 UNIT/10 ML Vial SQ SCH ×2 (09:15→21:12)
[2018-04-11] MEDS: Magnesium Oxide 400 MG Tablet PO SCH ×2 (09:45→21:12)
[2018-04-11] MEDS: dilTIAZem 30 MG Tablet PO SCH ×4 (09:46→21:11)
[2018-04-11] MEDS: Senna/Docusate Sodium 8.6/50 MG Tablet PO SCH ×2 (09:46→21:11)
[2018-04-11] MEDS: Insulin NovoLOG Aspart Correctional Sugar Inj SQ SCH ×4 (09:47→21:12)
[2018-04-11] MEDS: Sod Chloride 0.9% Inj 1,000 ML IV.CONT SCH (09:48)
[2018-04-11] MEDS: Sodium Chloride 0.9% 2 ML Flush BID IV.FLUSH SCH ×2 (09:48→21:12)
--- NOTE | 2018-04-11 10:57 | P.PNCV ---
- Note Subjective/Hospital Course: 67-year-old male who presented to [facility] 03/19/18 due to nausea, vomiting and abdominal pain. He states that he was awakened at 6 a.m. with left -sided flank pain and left mid back pain radiating to the left lower quadrant. He developed nausea and vomiting secondary to the pain. he was incidentally found to have cholecystitis, perc burt tube was placed , Trop was + underwent cardiac cath by Dr Pérez : mid LAD 80%, Left Circ 70 % lesion, RCA 100% occluded in the mid portion with [id number] and right-to- right collaterals supplying the distal portion. Blood cultures grew klebsiella pneumoniae and E coli , followed by ID and recommended to at least complete one week course of IV antibiotics prior to surgery PAST MEDICAL HISTORY: Diabetes, GERD, Hyperlipidemia, morbid obesity with BMI 40, History of gastric bypass. 03/27 pt is pain free at this time , has perc burt drain US of lower ext neg for DVT, Carotid US no stenosis continues on IV antibiotics per ID : VIVIENNE cefepime IV Ceftriaxone IV once a day (stop date: 04/03/2018) after which we will repeat BCX on 04/04/18. If these repeat bcx are negative at 48 hrs and patient clinically doing well will clear him from CABG. VIVIENNE Flagyl consult PT 03/28 pain free will follow / schedule for surgery next week when cleared by ID 03/29 still has some mild right flank pain burt drain in place no chest pain 04/03 c/o of nausea and vomiting since last night , also some abdominal pain for repeat CT abdomen today also repeat Blood cultures pending 04/05 still complaining of nausea and vomiting burt drain in place 04/10 events noted over weekend blood culture neg 04/03 , off all antibiotics still has burt drain , nursing flushing periodically per Uro / will perform bedside cystoscopy at bedside this week / urine has cleared since Heparin vivienne General surgery / will see after 3-4 weeks after CABG to eval for cholecystectomy will discuss timing for surgery with Dr Carlin no further complaints of nausea / vomiting 04/11 resting comfortably await bedside cystoscopy/ and clearance from urology then plan for timing of CABG, needs to be placed back on ASA Objective: Vital Signs - 24 hr 04/10/18 11:00 04/10/18 12:00 04/10/18 13:00 Temperature 98.2 F Pulse Rate 81 74 72 Respiratory Rate 20 Blood Pressure 111/74 Pulse Oximetry 96 04/10/18 14:00 04/10/18 15:00 04/10/18 16:00 Temperature 98.4 F Pulse Rate 70 71 70 Respiratory Rate 18 Blood Pressure 112/72 Pulse Oximetry 98 04/10/18 17:00 04/10/18 18:00 04/10/18 19:00 Temperature Pulse Rate 110 H 70 65 Respiratory Rate Blood Pressure Pulse Oximetry 04/10/18 20:00 04/10/18 21:00 04/10/18 22:00 Temperature 97.4 F L Pulse Rate 67 70 73 Respiratory Rate 20 Blood Pressure 104/74 Pulse Oximetry 95 04/10/18 23:00 04/11/18 00:00 04/11/18 01:00 Temperature 97.9 F Pulse Rate 74 64 67 Respiratory Rate 18 Blood Pressure 123/77 Pulse Oximetry 94 L 04/11/18 02:00 04/11/18 03:00 04/11/18 04:00 Temperature 97.6 F Pulse Rate 67 64 66 Respiratory Rate 16 Blood Pressure 128/69 Pulse Oximetry 96 04/11/18 05:00 04/11/18 06:00 04/11/18 07:00 Temperature 97.7 F Pulse Rate 64 66 64 Respiratory Rate 16 Blood Pressure 128/69 Pulse Oximetry 96 04/11/18 08:00 Temperature Pulse Rate Respiratory Rate Blood Pressure Pulse Oximetry 96 GENERAL: SKIN: Warm and dry. HEAD: Normocephalic. EYES: No scleral icterus. No injection or drainage. NECK: Supple, trachea midline. No JVD or lymphadenopathy. CARDIOVASCULAR: Regular rate and rhythm without murmurs, gallops, or rubs. RESPIRATORY: Breath sounds equal bilaterally. No accessory muscle use. GASTROINTESTINAL: Abdomen soft, non-tender, nondistended. burt drain right lower quad / bile drainage MUSCULOSKELETAL: No cyanosis, or edema. BACK: Nontender without obvious deformity. No CVA tenderness. Labs: Laboratory Results - last 12 hr 04/11/18 04/11/18 04/11/18 05:32 05:32 07:33 WBC 8.1 RBC 3.11 L Hgb 9.1 L Hct 27.4 L MCV 88.1 MCH 29.2 MCHC 33.2 RDW 15.5 Plt Count 386 MPV 8.8 Neut % (Auto) 63.6 Lymph % (Auto) 24.2 [place] % (Auto) 9.3 H Eos % (Auto) 2.1 Baso % (Auto) 0.8 Neut # (Auto) 5.1 Lymph # (Auto) 1.9 [place] # (Auto) 0.7 Eos # (Auto) 0.2 Baso # (Auto) 0.1 WBC Differential . Differential Comment Auto diff final Sodium 139 Potassium 3.8 Chloride 106 Carbon Dioxide 28.2 Anion Gap 5 BUN 10 Creatinine 0.62 Estimated GFR Greater than 89 POC Glucose 89 Random Glucose 81 Calcium 8.1 L Total Bilirubin 0.4 AST 38 H ALT 53 Alkaline Phosphatase 290 H Total Protein 6.9 Albumin 2.3 L Result Diagrams: 04/11/18 05:32 04/11/18 05:32 Telemetry: NSR - Plan (1) Coronary artery disease involving lower b[place] coronary artery Plan: all integrity consultant notes reviewed will discuss timing of surgery with Dr Carlin await completion of cystoscopy OOB/ PT (3) Afib Plan: in NSR (4) Cholecystitis Plan: s/p perc drain general surgery following
--- NOTE | 2018-04-11 12:17 | P.PN ---
Subjective Interval history: Follow-up sepsis/cholecystitis/gross hematuria April 11, 2018-patient seen and examined, waiting for cystoscopy at bedside. Otherwise patient stable. Physical Exam Vital signs: Vital Signs 04/10/18 13:00 04/10/18 14:00 04/10/18 15:00 Temperature Pulse Rate 72 70 71 Respiratory Rate Blood Pressure Pulse Oximetry 04/10/18 16:00 04/10/18 17:00 04/10/18 18:00 Temperature 98.4 F Pulse Rate 70 110 H 70 Respiratory Rate 18 Blood Pressure 112/72 Pulse Oximetry 98 04/10/18 19:00 04/10/18 20:00 04/10/18 21:00 Temperature 97.4 F L Pulse Rate 65 67 70 Respiratory Rate 20 Blood Pressure 104/74 Pulse Oximetry 95 04/10/18 22:00 04/10/18 23:00 04/11/18 00:00 Temperature 97.9 F Pulse Rate 73 74 64 Respiratory Rate 18 Blood Pressure 123/77 Pulse Oximetry 94 L 04/11/18 01:00 04/11/18 02:00 04/11/18 03:00 Temperature Pulse Rate 67 67 64 Respiratory Rate Blood Pressure Pulse Oximetry 04/11/18 04:00 04/11/18 05:00 04/11/18 06:00 Temperature 97.6 F Pulse Rate 66 64 66 Respiratory Rate 16 Blood Pressure 128/69 Pulse Oximetry 96 04/11/18 07:00 04/11/18 08:00 Temperature 97.7 F Pulse Rate 64 Respiratory Rate 16 Blood Pressure 128/69 Pulse Oximetry 96 96 Intake & Output 04/10/18 04/11/18 04/11/18 18:59 06:59 18:59 Intake Total 1960 / 1960 1480 / 1480 1000 / 1000 Output Total 1360 / 1360 823 / 823 Balance 600 / 600 657 / 657 1000 / 1000 Weight 104.4 kg Intake: IV 1000 / 1000 1000 / 1000 1000 / 1000 NS Inj 1,000 ML @ 84 mls/hr IV. 1000 / 1000 1000 / 1000 1000 / 1000 CONT .[id number] [facility] Rx#:[id number] Oral 960 / 960 480 / 480 Output: Urine 1160 / 1160 800 / 800 Emesis 200 / 200 Wound Drainage Right Lower Abdomen Other: Date of Last Bowel Movement 04/09/18 04/11/18 04/11/18 # Emeses 2 Narrative: GENERAL: NAD, AAOx3 SKIN: Warm and dry. HEAD: Atraumatic. Normocephalic. EYES: Pupils equal and round. No scleral icterus. No injection or drainage. ENT: No nasal bleeding or discharge. Mucous membranes pink and moist. NECK: Trachea midline. No JVD. CARDIOVASCULAR: Irregularly irregular RESPIRATORY: No accessory muscle use. Clear to auscultation. Breath sounds equal bilaterally. GASTROINTESTINAL: Abdomen soft, mild tender RUQ, nondistended. Hepatic and splenic margins not palpable. Perc chol drain in place MUSCULOSKELETAL: Extremities without clubbing, cyanosis, or edema. No obvious deformities. NEUROLOGICAL: Awake and alert. No obvious cranial nerve deficits. Motor grossly within normal limits. Five out of 5 muscle strength in the arms and legs. Normal speech. PSYCHIATRIC: Appropriate mood and affect; insight and judgment normal. Results - Labs CBC & Chem 7: 04/11/18 05:32 04/11/18 05:32 Laboratory Results - last 24 hr 04/10/18 04/10/18 04/10/18 12:21 16:20 21:14 WBC RBC Hgb Hct MCV MCH MCHC RDW Plt Count MPV Neut % (Auto) Lymph % (Auto) [place] % (Auto) Eos % (Auto) Baso % (Auto) Neut # (Auto) Lymph # (Auto) [place] # (Auto) Eos # (Auto) Baso # (Auto) WBC Differential Differential Comment Sodium Potassium Chloride Carbon Dioxide Anion Gap BUN Creatinine Estimated GFR POC Glucose 127 H 131 H 191 H Random Glucose Calcium Total Bilirubin AST ALT Alkaline Phosphatase Total Protein Albumin 04/11/18 04/11/18 04/11/18 05:32 05:32 07:33 WBC 8.1 RBC 3.11 L Hgb 9.1 L Hct 27.4 L MCV 88.1 MCH 29.2 MCHC 33.2 RDW 15.5 Plt Count 386 MPV 8.8 Neut % (Auto) 63.6 Lymph % (Auto) 24.2 [place] % (Auto) 9.3 H Eos % (Auto) 2.1 Baso % (Auto) 0.8 Neut # (Auto) 5.1 Lymph # (Auto) 1.9 [place] # (Auto) 0.7 Eos # (Auto) 0.2 Baso # (Auto) 0.1 WBC Differential . Differential Comment Auto diff final Sodium 139 Potassium 3.8 Chloride 106 Carbon Dioxide 28.2 Anion Gap 5 BUN 10 Creatinine 0.62 Estimated GFR Greater than 89 POC Glucose 89 Random Glucose 81 Calcium 8.1 L Total Bilirubin 0.4 AST 38 H ALT 53 Alkaline Phosphatase 290 H Total Protein 6.9 Albumin 2.3 L 04/11/18 11:13 WBC RBC Hgb Hct MCV MCH MCHC RDW Plt Count MPV Neut % (Auto) Lymph % (Auto) [place] % (Auto) Eos % (Auto) Baso % (Auto) Neut # (Auto) Lymph # (Auto) [place] # (Auto) Eos # (Auto) Baso # (Auto) WBC Differential Differential Comment Sodium Potassium Chloride Carbon Dioxide Anion Gap BUN Creatinine Estimated GFR POC Glucose 130 H Random Glucose Calcium Total Bilirubin AST ALT Alkaline Phosphatase Total Protein Albumin - Procedures 03/22- cholecystostomy tube placement 03/23- cardiac cath Assessment and Plan - Assessment (1) Cholecystitis Code(s): K81.9 - Cholecystitis, unspecified Status: Acute - Plan 67-year-old man with Sepsis/ Acute cholecystitis E. coli and Klebsiella pneumonia on blood cultures -03/19. S/p cholecystostomy tube drain- not a candidate for cholecystectomy at this time due to CAD and need for heart surgery. -Completed ceftriaxone 04/03. Per ID, patient can proceed to CABG as blood cultures have remained negative -continue with pain control as needed. -continue cholecystostomy drain care as directed. Patient may need stent placement to drain CBD versus ERCP -Appreciate input from general surgery, infectious disease specialist -LFTs trending down NSTEMI/Afib s/p cardiac cath with multivessel disease. Echo with EF 60% with no regional wall motion abnormalities. S/p KELLY with no vegetations. -CT surgery consult appreciated.Per ID, patient can proceed to CABG if blood culture negative times 48 hours -Continue Cardizem, Lipitor.ASA currently on hold, however should resume EMMY Hematuria -Appreciate input from urology, continue to hold aspirin and Lovenox. Continue IV fluid hydration -Plan for Cystoscopy at bedside today 04/11/18 per Urology -Continue to monitor H&H and transfuse accordingly DM II -continue Levemir and sliding scale and adjust as needed. DVT prophylaxis with B-SCD
[2018-04-11] MEDS ORDERED: Ciprofloxacin 500 MG Tablet PO ONE (13:09)
--- NOTE | 2018-04-11 13:09 | P.PCN ---
Date of procedure: 04/11/18 Pre-op diagnosis: Gross hematuria Post-op diagnosis: same Procedure: Cystoscopy at the bedside Anesthesia: local Surgeon: Emigdio Villafana Estimated blood loss (mL): 0 Condition: stable (67-year-old male with onset of gross hematuria who had a recent CA. Decision made to scope the patient at the bedside due to his high risk. Risk and benefits were discussed preoperatively he was willing to proceed. Patient was placed in the frog-leg was position and prepped and draped in usual sterile fashion 2% lidocaine jelly was then injected into the penile urethra. Flexible cystoscopy then commenced. Cohabitating prosthetic lobes were identified. [place] cystoscopy did not show any abnormalities within the bladder there were no bladder tumors identified. Retroflex examination of the bladder neck showed an area of friability at the prostate which was most likely the area that was bleeding at the time. No other abnormalities were identified. He tolerated the procedure well. Would recommend placement of a three-way [place] catheter prior to undergoing cardiac surgery in case the patient bleeds again and then we can start CBI at that time if necessary.)
--- NOTE | 2018-04-11 13:43 | P.PNCV ---
- Note Subjective/Hospital Course: 67-year-old male who presented to [facility] 03/19/18 due to nausea, vomiting and abdominal pain. He states that he was awakened at 6 a.m. with left -sided flank pain and left mid back pain radiating to the left lower quadrant. He developed nausea and vomiting secondary to the pain. he was incidentally found to have cholecystitis, perc burt tube was placed , Trop was + underwent cardiac cath by Dr Pérez : mid LAD 80%, Left Circ 70 % lesion, RCA 100% occluded in the mid portion with [id number] and right-to- right collaterals supplying the distal portion. Blood cultures grew klebsiella pneumoniae and E coli , followed by ID and recommended to at least complete one week course of IV antibiotics prior to surgery PAST MEDICAL HISTORY: Diabetes, GERD, Hyperlipidemia, morbid obesity with BMI 40, History of gastric bypass. 03/27 pt is pain free at this time , has perc burt drain US of lower ext neg for DVT, Carotid US no stenosis continues on IV antibiotics per ID : VIVIENNE cefepime IV Ceftriaxone IV once a day (stop date: 04/03/2018) after which we will repeat BCX on 04/04/18. If these repeat bcx are negative at 48 hrs and patient clinically doing well will clear him from CABG. VIVIENNE Flagyl consult PT 03/28 pain free will follow / schedule for surgery next week when cleared by ID 03/29 still has some mild right flank pain burt drain in place no chest pain 04/03 c/o of nausea and vomiting since last night , also some abdominal pain for repeat CT abdomen today also repeat Blood cultures pending 04/05 still complaining of nausea and vomiting burt drain in place 04/10 events noted over weekend blood culture neg 04/03 , off all antibiotics still has burt drain , nursing flushing periodically per Uro / will perform bedside cystoscopy at bedside this week / urine has cleared since Heparin vivienne General surgery / will see after 3-4 weeks after CABG to al for cholecystectomy will discuss timing for surgery with Dr Carlin no further complaints of nausea / vomiting 04/11 resting comfortably await bedside cystoscopy/ and clearance from urology then plan for timing of CABG, needs to be placed back on ASA 04/12 cleared by Urology for surgery " s/p bedside [place] cystoscopy did not show any abnormalities within the bladder there were no bladder tumors identified. Retroflex examination of the bladder neck showed an area of friability at the prostate which was most likely the area that was bleeding at the time. per Urology: recommend placement of 3 way scales prior to surgery pt ambulating with walker, no nausea will discuss timing of CABG with Dr Carlin Objective: Vital Signs - 24 hr 04/10/18 14:00 04/10/18 15:00 04/10/18 16:00 Temperature 98.4 F Pulse Rate 70 71 70 Respiratory Rate 18 Blood Pressure 112/72 Pulse Oximetry 98 04/10/18 17:00 04/10/18 18:00 04/10/18 19:00 Temperature Pulse Rate 110 H 70 65 Respiratory Rate Blood Pressure Pulse Oximetry 04/10/18 20:00 04/10/18 21:00 04/10/18 22:00 Temperature 97.4 F L Pulse Rate 67 70 73 Respiratory Rate 20 Blood Pressure 104/74 Pulse Oximetry 95 04/10/18 23:00 04/11/18 00:00 04/11/18 01:00 Temperature 97.9 F Pulse Rate 74 64 67 Respiratory Rate 18 Blood Pressure 123/77 Pulse Oximetry 94 L 04/11/18 02:00 04/11/18 03:00 04/11/18 04:00 Temperature 97.6 F Pulse Rate 67 64 66 Respiratory Rate 16 Blood Pressure 128/69 Pulse Oximetry 96 04/11/18 05:00 04/11/18 06:00 04/11/18 07:00 Temperature 97.7 F Pulse Rate 64 66 64 Respiratory Rate 16 Blood Pressure 128/69 Pulse Oximetry 96 04/11/18 08:00 04/11/18 09:00 04/11/18 10:00 Temperature Pulse Rate 78 84 80 Respiratory Rate Blood Pressure Pulse Oximetry 96 04/11/18 11:00 04/11/18 12:00 Temperature 97.6 F Pulse Rate 76 68 Respiratory Rate 16 Blood Pressure 105/63 Pulse Oximetry 93 L GENERAL: A&O x 3 SKIN: Warm and dry. HEAD: Normocephalic. EYES: No scleral icterus. No injection or drainage. NECK: Supple, trachea midline. No JVD or lymphadenopathy. CARDIOVASCULAR: Regular rate and rhythm without murmurs, gallops, or rubs. RESPIRATORY: Breath sounds equal bilaterally. No accessory muscle use. diminished in bases GASTROINTESTINAL: Abdomen soft, non-tender, nondistended. pt has burt drain right lateral abdomen MUSCULOSKELETAL: No cyanosis, or edema. BACK: Nontender without obvious deformity. No CVA tenderness. Labs: Laboratory Results - last 12 hr 04/11/18 04/11/18 04/11/18 05:32 05:32 07:33 WBC 8.1 RBC 3.11 L Hgb 9.1 L Hct 27.4 L MCV 88.1 MCH 29.2 MCHC 33.2 RDW 15.5 Plt Count 386 MPV 8.8 Neut % (Auto) 63.6 Lymph % (Auto) 24.2 Phillips % (Auto) 9.3 H Eos % (Auto) 2.1 Baso % (Auto) 0.8 Neut # (Auto) 5.1 Lymph # (Auto) 1.9 Phillips # (Auto) 0.7 Eos # (Auto) 0.2 Baso # (Auto) 0.1 WBC Differential . Differential Comment Auto diff final Sodium 139 Potassium 3.8 Chloride 106 Carbon Dioxide 28.2 Anion Gap 5 BUN 10 Creatinine 0.62 Estimated GFR Greater than 89 POC Glucose 89 Random Glucose 81 Calcium 8.1 L Total Bilirubin 0.4 AST 38 H ALT 53 Alkaline Phosphatase 290 H Total Protein 6.9 Albumin 2.3 L 04/11/18 11:13 WBC RBC Hgb Hct MCV MCH MCHC RDW Plt Count MPV Neut % (Auto) Lymph % (Auto) Phillips % (Auto) Eos % (Auto) Baso % (Auto) Neut # (Auto) Lymph # (Auto) Phillips # (Auto) Eos # (Auto) Baso # (Auto) WBC Differential Differential Comment Sodium Potassium Chloride Carbon Dioxide Anion Gap BUN Creatinine Estimated GFR POC Glucose 130 H Random Glucose Calcium Total Bilirubin AST ALT Alkaline Phosphatase Total Protein Albumin Result Diagrams: 04/11/18 05:32 04/11/18 05:32 - Plan (1) Coronary artery disease involving [place] coronary artery Plan: all senior erp consultant notes reviewed will discuss timing of surgery with Dr Tesfaye RODRIGUEZ/ PT (3) Afib Plan: in NSR (4) Cholecystitis Plan: s/p perc drain general surgery following
--- NOTE | 2018-04-11 18:09 | P.PNCA ---
Subjective Interval history: No events overnight Cystoscopy done today Recommend 3way catheter before surgery Medications and Allergies Active Medications: Active Medications Acetaminophen (Tylenol) 650 mg PO Q4H PRN PRN Reason: Temp > 100.4 Last Admin: 03/27/18 09:04 Dose: 650 mg Al Hydroxide/Mg Hydroxide (Milk Of Magnesia Liq) 30 ml PO Q12H PRN PRN Reason: Mild Constipation Last Admin: 03/25/18 15:47 Dose: 30 ml Atorvastatin Calcium (Lipitor) 20 mg PO DAILY [facility] Last Admin: 04/11/18 09:45 Dose: 20 mg Bisacodyl (Dulcolax Supp) 10 mg RECTAL DAILY PRN PRN Reason: SEVERE CONSITIPATION Last Admin: 04/03/18 14:07 Dose: 10 mg Bisacodyl (Dulcolax Ec) 10 mg PO ONCE ONE Last Admin: 03/30/18 17:35 Dose: 10 mg Dextrose (D50w Vial) 50 ml IV.PUSH UNSCH PRN PRN Reason: PER HYPOGLYCEMIA PROTOCOL Diltiazem HCl (Cardizem) 30 mg PO QID [facility] Last Admin: 04/11/18 13:53 Dose: 30 mg Glucagon (Glucagon Inj) 1 mg OTHER PRN PRN PRN Reason: for Hypoglycemia Protocol Sodium Chloride (Ns Inj) 1,000 mls @ 84 mls/hr IV.CONT .[id number] [facility] Last Admin: 04/11/18 09:48 Dose: 84 mls/hr Insulin Aspart (Novolog Insulin Correctional Sugar Inj) 0 unit SQ ACHS [facility]; Protocol Last Admin: 04/11/18 17:50 Dose: Not Given Insulin Detemir (Levemir Inj) 5 unit SQ BID [facility] Last Admin: 04/11/18 09:15 Dose: 5 unit Lactulose (Lactulose Liq) 30 ml PO DAILY PRN PRN Reason: SEVERE CONSITIPATION Last Admin: 03/25/18 15:47 Dose: 30 ml Magnesium Oxide (Mag-Ox) 400 mg PO BID [facility] Last Admin: 04/11/18 09:45 Dose: 400 mg Metformin HCl (Glucophage) 1,000 mg PO BID [facility] Last Admin: 04/11/18 09:45 Dose: 1,000 mg Morphine Sulfate (Morphine Inj) 2 mg IV.PUSH Q4H PRN PRN Reason: BREAKTHROUGH PAIN Last Admin: 04/03/18 11:00 Dose: 2 mg Oxycodone HCl (Roxicodone) 10 mg PO Q4H PRN PRN Reason: pain 6-10 Last Admin: 04/11/18 09:46 Dose: 10 mg Oxycodone HCl (Roxicodone) 5 mg PO Q4H PRN PRN Reason: pain 3-5 Last Admin: 04/08/18 04:19 Dose: 5 mg Pantoprazole Sodium (Protonix) 40 mg PO DAILY [facility] Last Admin: 04/11/18 09:45 Dose: 40 mg Potassium Chloride (K-Dur) 20 meq PO DAILY [facility] Last Admin: 04/11/18 09:46 Dose: 20 meq Prochlorperazine Edisylate (Compazine Inj) 10 mg IV.PUSH Q6H PRN PRN Reason: NAUSEA Last Admin: 04/11/18 09:46 Dose: 10 mg Senna/Docusate Sodium (Carlotta-Colace) 1 tab PO BID [facility] Last Admin: 04/11/18 09:46 Dose: 1 tab Sennosides (Senokot) 17.2 mg PO Q12H PRN PRN Reason: Moderate Constipation Last Admin: 03/30/18 05:24 Dose: 17.2 mg Sodium Chloride (Ns Flush) 2 ml IV.FLUSH BID [facility] Last Admin: 04/11/18 09:48 Dose: Not Given Sodium Chloride (Ns Flush) 2 ml IV.FLUSH PRN PRN PRN Reason: FLUSH AFTER USING IV ACCESS Last Admin: 03/26/18 02:04 Dose: 2 ml Allergies Allergy/AdvReac Type Severity Reaction Status Date / Time No Known Allergies Allergy Verified 03/19/18 10:28 Home Medications Medication Instructions Recorded Confirmed Type atorvastatin 20 mg PO DAILY 03/19/18 03/19/18 History liraglutide [Victoza 2-Sonido] 0.6 mg SUBCUT DAILY 03/19/18 03/19/18 History metformin 1,000 mg PO BID 03/19/18 03/19/18 History omeprazole-sodium bicarbonate 1 cap PO DAILY 03/19/18 03/19/18 History pantoprazole 20 mg PO DAILY 03/19/18 03/19/18 History Physical Exam Vital signs: Vital Signs 04/10/18 19:00 04/10/18 20:00 04/10/18 21:00 Temperature 97.4 F L Pulse Rate 65 67 70 Respiratory Rate 20 Blood Pressure 104/74 Pulse Oximetry 95 04/10/18 22:00 04/10/18 23:00 04/11/18 00:00 Temperature 97.9 F Pulse Rate 73 74 64 Respiratory Rate 18 Blood Pressure 123/77 Pulse Oximetry 94 L 04/11/18 01:00 04/11/18 02:00 04/11/18 03:00 Temperature Pulse Rate 67 67 64 Respiratory Rate Blood Pressure Pulse Oximetry 04/11/18 04:00 04/11/18 05:00 04/11/18 06:00 Temperature 97.6 F Pulse Rate 66 64 66 Respiratory Rate 16 Blood Pressure 128/69 Pulse Oximetry 96 04/11/18 07:00 04/11/18 08:00 04/11/18 09:00 Temperature 97.7 F Pulse Rate 64 78 84 Respiratory Rate 16 Blood Pressure 128/69 Pulse Oximetry 96 96 04/11/18 10:00 04/11/18 11:00 04/11/18 12:00 Temperature 97.6 F Pulse Rate 80 76 68 Respiratory Rate 16 Blood Pressure 105/63 Pulse Oximetry 93 L 04/11/18 13:00 04/11/18 13:44 04/11/18 14:00 Temperature Pulse Rate 74 72 Respiratory Rate Blood Pressure Pulse Oximetry 96 04/11/18 15:00 Temperature 98.2 F Pulse Rate 69 Respiratory Rate 16 Blood Pressure 113/68 Pulse Oximetry 98 Intake & Output 04/10/18 04/11/18 04/11/18 18:59 06:59 18:59 Intake Total 1960 / 1960 1480 / 1480 1000 / 1000 Output Total 1360 / 1360 823 / 823 Balance 600 / 600 657 / 657 1000 / 1000 Weight 104.4 kg Intake: IV 1000 / 1000 1000 / 1000 1000 / 1000 NS Inj 1,000 ML @ 84 mls/hr IV. 1000 / 1000 1000 / 1000 1000 / 1000 CONT .[id number] [facility] Rx#:[id number] Oral 960 / 960 480 / 480 Output: Urine 1160 / 1160 800 / 800 Emesis 200 / 200 Wound Drainage Right Lower Abdomen Other: Date of Last Bowel Movement 11/25/18 11/27/18 11/27/18 # Emeses 2 Narrative: GENERAL: NAD, AAOx3 SKIN: Warm and dry. HEAD: Atraumatic. Normocephalic. EYES: Pupils equal and round. No scleral icterus. No injection or drainage. ENT: No nasal bleeding or discharge. Mucous membranes pink and moist. NECK: Trachea midline. No JVD. CARDIOVASCULAR: Irregularly irregular RESPIRATORY: No accessory muscle use. Clear to auscultation. Breath sounds equal bilaterally. GASTROINTESTINAL: Abdomen soft, mild tender RUQ, nondistended. Hepatic and splenic margins not palpable. Perc chol drain in place MUSCULOSKELETAL: Extremities without clubbing, cyanosis, or edema. No obvious deformities. NEUROLOGICAL: Awake and alert. No obvious cranial nerve deficits. Motor grossly within normal limits. Five out of 5 muscle strength in the arms and legs. Normal speech. PSYCHIATRIC: Appropriate mood and affect; insight and judgment normal. Results 04/11/18 05:32 04/11/18 05:32 Cardiac Enzymes 04/11/18 Range/Units 05:32 AST 38 H (15-37) U/L CBC 04/11/18 Range/Units 05:32 WBC 8.1 (4.0-11.0) th/mm3 RBC 3.11 L (4.50-5.90) mil/mm3 Hgb 9.1 L (13.0-17.0) gm/dL Hct 27.4 L (39.0-51.0) % Plt Count 386 (150-450) th/mm3 Neut # (Auto) 5.1 (1.8-7.7) th/mm3 Lymph # (Auto) 1.9 (1.0-4.8) th/mm3 Riley # (Auto) 0.7 (0.0-0.9) th/mm3 Eos # (Auto) 0.2 (0.0-0.4) th/mm3 Baso # (Auto) 0.1 (0.0-0.2) th/mm3 Comprehensive Metabolic Panel 04/11/18 Range/Units 05:32 Sodium 139 (136-145) meq/L Potassium 3.8 (3.5-5.1) meq/L Chloride 106 (98-107) meq/L Carbon Dioxide 28.2 (21.0-32.0) meq/L BUN 10 (7-18) mg/dL Creatinine 0.62 (0.60-1.30) mg/dL Calcium 8.1 L (8.5-10.1) mg/dL AST 38 H (15-37) U/L ALT 53 (12-78) U/L Alkaline Phosphatase 290 H (45-117) U/L Total Protein 6.9 (6.4-8.2) g/dL Albumin 2.3 L (3.4-5.0) g/dL Intake and Output 04/11/18 04/11/18 04/11/18 06:59 14:59 22:59 Intake Total 780 / 780 1000 / 1000 Output Total 823 / 823 Balance -43 / -43 1000 / 1000 Intake: IV 300 / 300 1000 / 1000 NS Inj 1,000 ML @ 84 mls/hr IV. 300 / 300 1000 / 1000 CONT .[id number] [facility] Rx#:[id number] Oral 480 / 480 Output: Urine 800 / 800 Wound Drainage Right Lower Abdomen Other: Date of Last Bowel Movement 04/11/18 04/11/18 04/11/18 Weight 104.4 kg Assessment and Plan - Assessment (1) NSTEMI (non-ST elevated myocardial infarction) Code(s): I21.4 - Non-ST elevation (NSTEMI) myocardial infarction Status: Acute (2) Afib Code(s): I48.91 - Unspecified atrial fibrillation Status: Acute (3) SIRS (systemic inflammatory response syndrome) Code(s): R65.10 - Systemic inflammatory response syndrome (SIRS) of non- infectious origin without acute organ dysfunction Status: Acute (4) Intractable abdominal pain Code(s): R10.9 - Unspecified abdominal pain Status: Acute - Plan 1) Abdominal pain/nausea/emesis Found to have cholecystitis Perc burt drain in place with relief of symptoms 2) NSTEMI Found to have multivessel CAD CT surgery evaluation Complex case with acute cholecystitis with percutaneous cholecystostomy tube Await repeat blood cultures, if negative then CABG 3) Afib New onset Started on Cardizem, heart rates controlled Eventual anti-coagulation 4) Bacteremia KELLY negative for vegetation, no signs of endocarditis 5) Hematuria ASA/Lovenox stopped Cystoscopy done 3 way catheter placed before CABG 6) MRCP showing multiple stones in the common bile duct No further symptoms Most likely passed the stones
[2018-04-12] MEDS: Sod Chloride 0.9% Inj 1,000 ML IV.CONT SCH ×4 (04:07→23:53)
[2018-04-12] MEDS: dilTIAZem 30 MG Tablet PO SCH ×4 (09:32→21:15)
[2018-04-12] MEDS: Senna/Docusate Sodium 8.6/50 MG Tablet PO SCH ×2 (09:32→21:15)
[2018-04-12] MEDS: Magnesium Oxide 400 MG Tablet PO SCH ×2 (09:32→21:15)
[2018-04-12] MEDS: Insulin NovoLOG Aspart Correctional Sugar Inj SQ SCH ×4 (09:32→21:21)
[2018-04-12] MEDS: Sodium Chloride 0.9% 2 ML Flush BID IV.FLUSH SCH ×2 (09:33→21:16)
[2018-04-12] MEDS: Insulin Detemir Inj 1,000 UNIT/10 ML Vial SQ SCH ×2 (09:33→21:15)
--- NOTE | 2018-04-12 12:47 | P.PN ---
Subjective Interval history: up in chair feels great no complains good po voiding spontaneousluy- grossly clear urine- no difficulty Physical Exam Vital signs: Vital Signs 04/11/18 13:00 04/11/18 13:44 04/11/18 14:00 Temperature Pulse Rate 74 72 Respiratory Rate Blood Pressure Pulse Oximetry 96 04/11/18 15:00 04/11/18 16:00 04/11/18 17:00 Temperature 98.2 F Pulse Rate 69 68 78 Respiratory Rate 16 Blood Pressure 113/68 Pulse Oximetry 98 04/11/18 18:00 04/11/18 19:00 04/11/18 20:00 Temperature 98.0 F Pulse Rate 78 71 72 Respiratory Rate 16 Blood Pressure 129/72 Pulse Oximetry 97 97 04/11/18 21:00 04/11/18 22:00 04/11/18 23:00 Temperature 98.1 F Pulse Rate 68 70 71 Respiratory Rate 14 Blood Pressure 124/71 Pulse Oximetry 98 04/12/18 00:00 04/12/18 01:00 04/12/18 02:00 Temperature Pulse Rate 68 70 66 Respiratory Rate Blood Pressure Pulse Oximetry 04/12/18 03:00 04/12/18 04:00 04/12/18 05:00 Temperature 97.9 F Pulse Rate 69 62 71 Respiratory Rate 18 Blood Pressure 123/75 Pulse Oximetry 98 04/12/18 06:00 04/12/18 07:00 04/12/18 08:00 Temperature 97.7 F Pulse Rate 65 67 64 Respiratory Rate 16 Blood Pressure 118/68 Pulse Oximetry 97 97 04/12/18 09:00 04/12/18 10:00 04/12/18 11:00 Temperature 97.8 F Pulse Rate 80 74 67 Respiratory Rate 16 Blood Pressure 115/70 Pulse Oximetry 95 04/12/18 12:16 Temperature Pulse Rate Respiratory Rate Blood Pressure Pulse Oximetry 95 Intake & Output 04/11/18 04/12/18 04/12/18 18:59 06:59 18:59 Intake Total 1720 / 1720 1240 / 1240 Output Total 729 / 729 985 / 985 Balance 991 / 991 255 / 255 Weight 104.5 kg Intake: IV 1000 / 1000 1000 / 1000 NS Inj 1,000 ML @ 84 mls/hr IV. 1000 / 1000 1000 / 1000 CONT .[id number] [facility] Rx#:[id number] Oral 720 / 720 240 / 240 Output: Urine 700 / 700 975 / 975 Gastric Drainage Right Lower Quadrant Other: Date of Last Bowel Movement 04/11/18 04/11/18 04/11/18 Narrative: awake and alert, no distress anicteric neck supple lungs- no rales, no wheezes regular rhythm abdomensoft nontender extremities no edema, no calf tenderness neruo exam- unremarkable Results - Labs CBC & Chem 7: 04/13/18 07:39 04/13/18 07:39 Laboratory Results - last 24 hr 04/11/18 04/11/18 04/12/18 16:58 20:47 08:08 POC Glucose 92 198 H 85 04/12/18 11:31 POC Glucose 114 H - Procedures 03/22- cholecystostomy tube placement 03/23- cardiac cath 04/11- cystoscopy Assessment and Plan - Assessment (1) Cholecystitis Code(s): K81.9 - Cholecystitis, unspecified Status: Acute - Plan 67-year-old man with S/P Sepsis/ Acute cholecystitis E. coli and Klebsiella pneumonia on blood cultures -03/19. S/p cholecystostomy tube drain- not a candidate for cholecystectomy at this time due to CAD and need for heart surgery. -Completed ceftriaxone 04/03. - repeat Blood cultures negative - Per ID, patient can proceed to CABG as blood cultures have remained negative -continue with pain control as needed. -continue cholecystostomy drain care as directed. Patient may need stent placement to drain CBD versus ERCP -Appreciate input from general surgery, infectious disease specialist -LFTs trending down NSTEMI/Afib - now in SR on telemetry s/p cardiac cath with multivessel disease. Echo with EF 60% with no regional wall motion abnormalities. S/p KELLY with no vegetations. -CT surgery consult appreciated.Per ID, patient can proceed to CABG if blood culture negative times 48 hours -Continue Cardizem, Lipitor. - restart ASA S/P cystoscopy- 04/11 Hematuria - resolved -voiding well- gross clear urine - Urology ff- plan to place 3 way scales- in the event of cardiac surgery - DM II -continue Levemir and sliding scale and adjust as needed. HYpokalemia- improved - 20 meq KCL daily DVT prophylaxis with B-SCD PPI- hx of GERD
[2018-04-12] MEDS ORDERED: Insulin Regular (For Infusion) 100 UNIT in Sodium Chlor 0.9% Inj 99 ML IV.CONT PRN (13:15)
[2018-04-12] MEDS ORDERED: Dextrose 50% in Water 50 ML Vial IV.PUSH PRN (13:15)
[2018-04-12] MEDS ORDERED: Sodium Chloride 0.9% Irr Bot 500 ML, ceFAZolin Inj 500 MG IRRIGATION SCH ×2 (13:15)
[2018-04-12] MEDS ORDERED: Sodium Chlor 0.9% Inj 77.5 ML, Papaverine Inj 60 MG, Nitroglycerin Inj 100 MCG, dilTIAZ... IRRIGATION SCH ×3 (13:15)
[2018-04-12] MEDS ORDERED: Chlorhexidine 4% Topical 120 APPLIC/120 ML Bottle TOPICAL SCH (13:15)
--- NOTE | 2018-04-12 13:21 | P.PNCV ---
- Note Subjective/Hospital Course: 67-year-old male who presented to [facility] 03/19/18 due to nausea, vomiting and abdominal pain. He states that he was awakened at 6 a.m. with left -sided flank pain and left mid back pain radiating to the left lower quadrant. He developed nausea and vomiting secondary to the pain. he was incidentally found to have cholecystitis, perc burt tube was placed , Trop was + underwent cardiac cath by Dr Pérez : mid LAD 80%, Left Circ 70 % lesion, RCA 100% occluded in the mid portion with [id number] and right-to- right collaterals supplying the distal portion. Blood cultures grew klebsiella pneumoniae and E coli , followed by ID and recommended to at least complete one week course of IV antibiotics prior to surgery PAST MEDICAL HISTORY: Diabetes, GERD, Hyperlipidemia, morbid obesity with BMI 40, History of gastric bypass. 03/27 pt is pain free at this time , has perc burt drain US of lower ext neg for DVT, Carotid US no stenosis continues on IV antibiotics per ID : VIVIENNE cefepime IV Ceftriaxone IV once a day (stop date: 04/03/2018) after which we will repeat BCX on 04/04/18. If these repeat bcx are negative at 48 hrs and patient clinically doing well will clear him from CABG. VIVIENNE Flagyl consult PT 03/28 pain free will follow / schedule for surgery next week when cleared by ID 03/29 still has some mild right flank pain burt drain in place no chest pain 04/03 c/o of nausea and vomiting since last night , also some abdominal pain for repeat CT abdomen today also repeat Blood cultures pending 04/05 still complaining of nausea and vomiting burt drain in place 04/10 events noted over weekend blood culture neg 04/03 , off all antibiotics still has burt drain , nursing flushing periodically per Uro / will perform bedside cystoscopy at bedside this week / urine has cleared since Heparin vivienne General surgery / will see after 3-4 weeks after CABG to al for cholecystectomy will discuss timing for surgery with Dr Carlin no further complaints of nausea / vomiting 04/11 resting comfortably await bedside cystoscopy/ and clearance from urology then plan for timing of CABG, needs to be placed back on ASA 04/12 cleared by Urology for surgery " s/p bedside [place] cystoscopy did not show any abnormalities within the bladder there were no bladder tumors identified. Retroflex examination of the bladder neck showed an area of friability at the prostate which was most likely the area that was bleeding at the time. per Urology: recommend placement of 3 way scales prior to surgery pt ambulating with walker, no nausea scheduled for surgery on tuesday will need 3 way cath placed by urology on Objective: Vital Signs - 24 hr 04/11/18 13:44 04/11/18 14:00 04/11/18 15:00 Temperature 98.2 F Pulse Rate 72 69 Respiratory Rate 16 Blood Pressure 113/68 Pulse Oximetry 96 98 04/11/18 16:00 04/11/18 17:00 04/11/18 18:00 Temperature Pulse Rate 68 78 78 Respiratory Rate Blood Pressure Pulse Oximetry 04/11/18 19:00 04/11/18 20:00 04/11/18 21:00 Temperature 98.0 F Pulse Rate 71 72 68 Respiratory Rate 16 Blood Pressure 129/72 Pulse Oximetry 97 97 04/11/18 22:00 04/11/18 23:00 04/12/18 00:00 Temperature 98.1 F Pulse Rate 70 71 68 Respiratory Rate 14 Blood Pressure 124/71 Pulse Oximetry 98 04/12/18 01:00 04/12/18 02:00 04/12/18 03:00 Temperature 97.9 F Pulse Rate 70 66 69 Respiratory Rate 18 Blood Pressure 123/75 Pulse Oximetry 98 04/12/18 04:00 04/12/18 05:00 04/12/18 06:00 Temperature Pulse Rate 62 71 65 Respiratory Rate Blood Pressure Pulse Oximetry 04/12/18 07:00 04/12/18 08:00 04/12/18 09:00 Temperature 97.7 F Pulse Rate 67 64 80 Respiratory Rate 16 Blood Pressure 118/68 Pulse Oximetry 97 97 04/12/18 10:00 04/12/18 11:00 04/12/18 12:16 Temperature 97.8 F Pulse Rate 74 67 Respiratory Rate 16 Blood Pressure 115/70 Pulse Oximetry 95 95 GENERAL: A&O x 3 SKIN: Warm and dry. HEAD: Normocephalic. EYES: No scleral icterus. No injection or drainage. NECK: Supple, trachea midline. No JVD or lymphadenopathy. CARDIOVASCULAR: Regular rate and rhythm without murmurs, gallops, or rubs. RESPIRATORY: Breath sounds equal bilaterally. No accessory muscle use. GASTROINTESTINAL: Abdomen soft, non-tender, nondistended. burt drain right abdomen / draining bile color drainage MUSCULOSKELETAL: No cyanosis, or edema. BACK: Nontender without obvious deformity. No CVA tenderness. Labs: Laboratory Results - last 12 hr 04/12/18 04/12/18 08:08 11:31 POC Glucose 85 114 H Result Diagrams: 04/11/18 05:32 04/11/18 05:32 - Plan (1) Coronary artery disease involving [place] coronary artery Plan: all [facility] consultant notes reviewed scheduled for CABG on tuesday OOB/ PT (3) Afib Plan: in NSR (4) Cholecystitis Plan: s/p perc drain general surgery following
[2018-04-12] MEDS ORDERED: ceFAZolin Inj 2,000 MG in Sodium Chlor 0.9% Inj 80 ML IV.SIG SCH (14:00)
--- NOTE | 2018-04-12 16:29 | P.PNCA ---
Subjective Interval history: No events overnight No complaints Medications and Allergies Active Medications: Active Medications Acetaminophen (Tylenol) 650 mg PO Q4H PRN PRN Reason: Temp > 100.4 Last Admin: 03/27/18 09:04 Dose: 650 mg Al Hydroxide/Mg Hydroxide (Milk Of Magnsofia Liq) 30 ml PO Q12H PRN PRN Reason: Mild Constipation Last Admin: 03/25/18 15:47 Dose: 30 ml Aspirin (Aspirin Chew) 81 mg PO DAILY [facility] Last Admin: 04/12/18 15:33 Dose: 81 mg Atorvastatin Calcium (Lipitor) 20 mg PO DAILY [facility] Last Admin: 04/12/18 09:32 Dose: 20 mg Bisacodyl (Dulcolax Supp) 10 mg RECTAL DAILY PRN PRN Reason: SEVERE CONSITIPATION Last Admin: 04/03/18 14:07 Dose: 10 mg Bisacodyl (Dulcolax Ec) 10 mg PO ONCE ONE Last Admin: 03/30/18 17:35 Dose: 10 mg Chlorhexidine Gluconate (Hibiclens 4% Topical) 1 applicatio [employer]ICAL [employer] [facility] Stop: 04/18/18 13:15 Sodium Chloride 77.5 ml/Papaverine HCl 60 mg/Nitroglycerin 100 mcg/Diltiazem HCl 100 mg 0 ml IRRIGATION [employer] [facility] Stop: 04/18/18 13:15 Sodium Chloride 500 ml/ (Cefazolin Sodium 500 mg) 0 ml IRRIGATION [employer] [facility] Stop: 04/18/18 13:17 Dextrose (D50w Vial) 50 ml IV.PUSH UNSCH PRN PRN Reason: PER HYPOGLYCEMIA PROTOCOL Dextrose (D50w Vial) 50 ml IV.PUSH UNSCH PRN PRN Reason: PER HYPOGLYCEMIA PROTOCOL Diltiazem HCl (Cardizem) 30 mg PO QID [facility] Last Admin: 04/12/18 15:33 Dose: 30 mg Glucagon (Glucagon Inj) 1 mg OTHER PRN PRN PRN Reason: for Hypoglycemia Protocol Sodium Chloride (Ns Inj) 1,000 mls @ 84 mls/hr IV.CONT .[id number] [facility] Last Admin: 04/12/18 04:07 Dose: Not Given Cefazolin Sodium 2,000 mg/ (Sodium Chloride) 100 mls @ 200 mls/hr IV.SIG [employer] [facility] Stop: 04/18/18 13:17 Insulin Human Regular 100 unit (/ Sodium Chloride) 100 mls @ 3 mls/hr IV.CONT TITRATE PRN; Protocol PRN Reason: See Protocol Insulin Aspart (Novolog Insulin Correctional Sugar Inj) 0 unit SQ ACHS [facility]; Protocol Last Admin: 04/12/18 15:34 Dose: Not Given Insulin Detemir (Levemir Inj) 5 unit SQ BID [facility] Last Admin: 04/12/18 09:33 Dose: 5 unit Lactulose (Lactulose Liq) 30 ml PO DAILY PRN PRN Reason: SEVERE CONSITIPATION Last Admin: 03/25/18 15:47 Dose: 30 ml Magnesium Oxide (Mag-Ox) 400 mg PO BID [facility] Last Admin: 04/12/18 09:32 Dose: 400 mg Metformin HCl (Glucophage) 1,000 mg PO BID [facility] Last Admin: 04/12/18 09:31 Dose: 1,000 mg Metoprolol Tartrate (Lopressor) 12.5 mg PO [employer] [facility] Stop: 04/18/18 13:17 Morphine Sulfate (Morphine Inj) 2 mg IV.PUSH Q4H PRN PRN Reason: BREAKTHROUGH PAIN Last Admin: 04/03/18 11:00 Dose: 2 mg Oxycodone HCl (Roxicodone) 10 mg PO Q4H PRN PRN Reason: pain 6-10 Last Admin: 04/12/18 09:32 Dose: 10 mg Oxycodone HCl (Roxicodone) 5 mg PO Q4H PRN PRN Reason: pain 3-5 Last Admin: 04/08/18 04:19 Dose: 5 mg Pantoprazole Sodium (Protonix) 40 mg PO DAILY [facility] Last Admin: 04/12/18 09:31 Dose: 40 mg Potassium Chloride (K-Dur) 20 meq PO DAILY [facility] Last Admin: 04/12/18 09:32 Dose: 20 meq Prochlorperazine Edisylate (Compazine Inj) 10 mg IV.PUSH Q6H PRN PRN Reason: NAUSEA Last Admin: 04/12/18 09:28 Dose: 10 mg Senna/Docusate Sodium (Carlotta-Colace) 1 tab PO BID [facility] Last Admin: 04/12/18 09:32 Dose: 1 tab Sennosides (Senokot) 17.2 mg PO Q12H PRN PRN Reason: Moderate Constipation Last Admin: 03/30/18 05:24 Dose: 17.2 mg Sodium Chloride (Ns Flush) 2 ml IV.FLUSH BID [facility] Last Admin: 04/12/18 09:33 Dose: Not Given Sodium Chloride (Ns Flush) 2 ml IV.FLUSH PRN PRN PRN Reason: FLUSH AFTER USING IV ACCESS Last Admin: 03/26/18 02:04 Dose: 2 ml Sodium Chloride (Ns Flush) 2 ml IV.FLUSH BID [facility] Sodium Chloride (Ns Flush) 2 ml IV.FLUSH PRN PRN PRN Reason: FLUSH AFTER USING IV ACCESS Allergies Allergy/AdvReac Type Severity Reaction Status Date / Time No Known Allergies Allergy Verified 03/19/18 10:28 Home Medications Medication Instructions Recorded Confirmed Type atorvastatin 20 mg PO DAILY 03/19/18 03/19/18 History liraglutide [Victoza 2-Sonido] 0.6 mg SUBCUT DAILY 03/19/18 03/19/18 History metformin 1,000 mg PO BID 03/19/18 03/19/18 History omeprazole-sodium bicarbonate 1 cap PO DAILY 03/19/18 03/19/18 History pantoprazole 20 mg PO DAILY 03/19/18 03/19/18 History Physical Exam Vital signs: Vital Signs 04/11/18 17:00 04/11/18 18:00 04/11/18 19:00 Temperature 98.0 F Pulse Rate 78 78 71 Respiratory Rate 16 Blood Pressure 129/72 Pulse Oximetry 97 04/11/18 20:00 04/11/18 21:00 04/11/18 22:00 Temperature Pulse Rate 72 68 70 Respiratory Rate Blood Pressure Pulse Oximetry 97 04/11/18 23:00 04/12/18 00:00 04/12/18 01:00 Temperature 98.1 F Pulse Rate 71 68 70 Respiratory Rate 14 Blood Pressure 124/71 Pulse Oximetry 98 04/12/18 02:00 04/12/18 03:00 04/12/18 04:00 Temperature 97.9 F Pulse Rate 66 69 62 Respiratory Rate 18 Blood Pressure 123/75 Pulse Oximetry 98 04/12/18 05:00 04/12/18 06:00 04/12/18 07:00 Temperature 97.7 F Pulse Rate 71 65 67 Respiratory Rate 16 Blood Pressure 118/68 Pulse Oximetry 97 04/12/18 08:00 04/12/18 09:00 04/12/18 10:00 Temperature Pulse Rate 64 80 74 Respiratory Rate Blood Pressure Pulse Oximetry 97 04/12/18 11:00 04/12/18 12:16 Temperature 97.8 F Pulse Rate 67 Respiratory Rate 16 Blood Pressure 115/70 Pulse Oximetry 95 95 Intake & Output 04/11/18 04/12/18 04/12/18 18:59 06:59 18:59 Intake Total 1720 / 1720 1240 / 1240 Output Total 729 / 729 985 / 985 Balance 991 / 991 255 / 255 Weight 104.5 kg Intake: IV 1000 / 1000 1000 / 1000 NS Inj 1,000 ML @ 84 mls/hr IV. 1000 / 1000 1000 / 1000 CONT .[id number] [facility] Rx#:[id number] Oral 720 / 720 240 / 240 Output: Urine 700 / 700 975 / 975 Gastric Drainage Right Lower Quadrant Other: Date of Last Bowel Movement 04/11/18 04/11/18 04/11/18 Narrative: awake and alert, no distress anicteric neck supple lungs- no rales, no wheezes regular rhythm abdomensoft nontender extremities no edema, no calf tenderness neruo exam- unremarkable Results 04/11/18 05:32 04/11/18 05:32 Cardiac Enzymes 04/11/18 Range/Units 05:32 AST 38 H (15-37) U/L CBC 04/11/18 Range/Units 05:32 WBC 8.1 (4.0-11.0) th/mm3 RBC 3.11 L (4.50-5.90) mil/mm3 Hgb 9.1 L (13.0-17.0) gm/dL Hct 27.4 L (39.0-51.0) % Plt Count 386 (150-450) th/mm3 Neut # (Auto) 5.1 (1.8-7.7) th/mm3 Lymph # (Auto) 1.9 (1.0-4.8) th/mm3 [place] # (Auto) 0.7 (0.0-0.9) th/mm3 Eos # (Auto) 0.2 (0.0-0.4) th/mm3 Baso # (Auto) 0.1 (0.0-0.2) th/mm3 Comprehensive Metabolic Panel 04/11/18 Range/Units 05:32 Sodium 139 (136-145) meq/L Potassium 3.8 (3.5-5.1) meq/L Chloride 106 (98-107) meq/L Carbon Dioxide 28.2 (21.0-32.0) meq/L BUN 10 (7-18) mg/dL Creatinine 0.62 (0.60-1.30) mg/dL Calcium 8.1 L (8.5-10.1) mg/dL AST 38 H (15-37) U/L ALT 53 (12-78) U/L Alkaline Phosphatase 290 H (45-117) U/L Total Protein 6.9 (6.4-8.2) g/dL Albumin 2.3 L (3.4-5.0) g/dL Intake and Output 04/12/18 04/12/18 04/12/18 06:59 14:59 22:59 Intake Total 240 / 240 Output Total 985 / 985 Balance -745 / -745 Intake: Oral 240 / 240 Output: Urine 975 / 975 Gastric Drainage Right Lower Quadrant Other: Date of Last Bowel Movement 04/11/18 04/11/18 Weight 104.5 kg Assessment and Plan - Assessment (1) NSTEMI (non-ST elevated myocardial infarction) Code(s): I21.4 - Non-ST elevation (NSTEMI) myocardial infarction Status: Acute (2) Afib Code(s): I48.91 - Unspecified atrial fibrillation Status: Acute (3) SIRS (systemic inflammatory response syndrome) Code(s): R65.10 - Systemic inflammatory response syndrome (SIRS) of non- infectious origin without acute organ dysfunction Status: Acute (4) Intractable abdominal pain Code(s): R10.9 - Unspecified abdominal pain Status: Acute - Plan 1) Abdominal pain/nausea/emesis Found to have cholecystitis Perc burt drain in place with relief of symptoms 2) NSTEMI Found to have multivessel CAD CT surgery evaluation Complex case with acute cholecystitis with percutaneous cholecystostomy tube Await repeat blood cultures, if negative then CABG CABG planned for Tuesday 3) Afib New onset Started on Cardizem, heart rates controlled Eventual anti-coagulation 4) Bacteremia KELLY negative for vegetation, no signs of endocarditis 5) Hematuria ASA/Lovenox stopped Cystoscopy done 3 way catheter placed before CABG ASA restarted 6) MRCP showing multiple stones in the common bile duct No further symptoms Most likely passed the stones
[2018-04-13 00:19] LABS: Bilirubin,Urine Negative (Negative); Clarity,Urine Clear (Clear); Color,Urine Yellow (Yellw/Straw); Glucose,Urine (UA) Negative (Negative); Leukocyte Esterase,Urine Negative (Negative); Mucus,Urine Few /lpf (Occasional); Nitrite,Urine Negative (Negative); Specific Gravity,Urine 1.013 (1.002-1.035)
[2018-04-13 08:04] LABS: Baso # (Auto) 0.1 th/mm3 (0.0-0.2); Baso % (Auto) 0.7 % (0.0-2.0); Eos # (Auto) 0.2 th/mm3 (0.0-0.4); Eos % (Auto) 2.7 % (0.0-4.0); Hematocrit 28.1 % (39.0-51.0); Hemoglobin 9.2 gm/dL (13.0-17.0); Lymph # (Auto) 1.8 th/mm3 (1.0-4.8); Lymph % (Auto) 24.8 % (9.0-44.0); Mean Corpuscular HGB Conc 32.7 % (32.0-36.0); Mean Corpuscular Hemoglobin 28.3 pg (27.0-34.0); Mean Corpuscular Volume 86.6 fL (80.0-100.0); Mean Platelet Volume 8.3 fL (7.0-11.0); Mono # (Auto) 0.7 th/mm3 (0.0-0.9); Mono % (Auto) 10.1 % (0.0-8.0); Neut # (Auto) 4.6 th/mm3 (1.8-7.7); Neut % (Auto) 61.7 % (16.0-70.0); Platelet Count 358 th/mm3 (150-450); Red Blood Count 3.24 mil/mm3 (4.50-5.90); Red Cell Distribution Width 15.6 % (11.6-17.2); White Blood Count 7.4 th/mm3 (4.0-11.0)
[2018-04-13 08:12] LABS: INR 1.1 Ratio
[2018-04-13 08:22] LABS: Alanine Aminotransferase 37 U/L (12-78); Albumin 2.4 g/dL (3.4-5.0); Anion Gap 8 meq/L (5-15); Aspartate Aminotransferase 26 U/L (15-37); Blood Urea Nitrogen 9 mg/dL (7-18); Calcium 8.4 mg/dL (8.5-10.1); Carbon Dioxide 25.5 meq/L (21.0-32.0); Chloride 106 meq/L (98-107); Glomerular Filtration Rate Greater Than 89 mL/min (>89); Glucose,Random 74 mg/dL (74-106); Potassium 3.9 meq/L (3.5-5.1); Sodium 139 meq/L (136-145)
[2018-04-13 08:25] LABS: Alkaline Phosphatase 237 U/L (45-117); Total Protein 6.8 g/dL (6.4-8.2)
[2018-04-13] MEDS: Senna/Docusate Sodium 8.6/50 MG Tablet PO SCH ×2 (09:26→21:05)
[2018-04-13] MEDS: dilTIAZem 30 MG Tablet PO SCH ×4 (09:27→21:05)
[2018-04-13] MEDS: Insulin Detemir Inj 1,000 UNIT/10 ML Vial SQ SCH ×2 (09:27→21:05)
[2018-04-13] MEDS: Insulin NovoLOG Aspart Correctional Sugar Inj SQ SCH ×4 (09:27→21:05)
[2018-04-13] MEDS: Magnesium Oxide 400 MG Tablet PO SCH ×2 (09:28→21:04)
[2018-04-13] MEDS: Sodium Chloride 0.9% 2 ML Flush BID IV.FLUSH SCH ×2 (09:29→21:05)
--- NOTE | 2018-04-13 09:36 | P.PN ---
Subjective Interval history: awake and alert hoping to get CABG done "waiting for this" no abdominal pain, nausea or vomting 3 way scales was placed this am by urology in anticiaption of CABG Physical Exam Vital signs: Vital Signs 04/12/18 10:00 04/12/18 11:00 04/12/18 12:00 Temperature 97.8 F Pulse Rate 74 67 70 Respiratory Rate 16 Blood Pressure 115/70 Pulse Oximetry 95 04/12/18 12:16 04/12/18 13:00 04/12/18 14:00 Temperature Pulse Rate 78 74 Respiratory Rate Blood Pressure Pulse Oximetry 95 04/12/18 15:00 04/12/18 16:00 04/12/18 17:00 Temperature 98.3 F Pulse Rate 74 68 68 Respiratory Rate 16 Blood Pressure 122/75 Pulse Oximetry 96 04/12/18 18:00 04/12/18 19:00 04/12/18 20:00 Temperature 98.0 F Pulse Rate 82 72 82 Respiratory Rate 16 Blood Pressure 121/72 Pulse Oximetry 98 98 04/12/18 21:00 04/12/18 22:00 04/12/18 23:00 Temperature 98.4 F Pulse Rate 86 72 68 Respiratory Rate 16 Blood Pressure 105/60 Pulse Oximetry 96 04/13/18 00:00 04/13/18 01:00 04/13/18 02:00 Temperature Pulse Rate 82 82 66 Respiratory Rate Blood Pressure Pulse Oximetry 04/13/18 03:00 04/13/18 04:00 04/13/18 05:00 Temperature 98.6 F Pulse Rate 65 64 66 Respiratory Rate 16 Blood Pressure 118/69 Pulse Oximetry 95 04/13/18 06:00 04/13/18 07:00 Temperature 97.6 F Pulse Rate 65 66 Respiratory Rate 16 Blood Pressure 114/67 Pulse Oximetry 94 L Intake & Output 04/12/18 04/13/18 04/13/18 18:59 06:59 18:59 Intake Total 1600 / 1600 240 / 240 Output Total 650 / 650 450 / 450 Balance 950 / 950 -210 / -210 Weight 104.5 kg Intake: IV 1000 / 1000 NS Inj 1,000 ML @ 84 mls/hr IV. 1000 / 1000 CONT .[id number] [facility] Rx#:[id number] Oral 600 / 600 240 / 240 Output: Urine 650 / 650 450 / 450 Gastric Drainage 0 / 0 Right Lower Quadrant 0 / 0 Wound Drainage 0 / 0 Right Lower Abdomen 0 / 0 Other: Date of Last Bowel Movement 04/11/18 04/11/18 04/12/18 Narrative: awake and alert, no distress anicteric neck supple lungs- no rales, no wheezes regular rhythm abdomen soft nontender, right UQ- cholecystostomy tube in place- minimal drainage extremities no edema, no calf tenderness 3 way scales catheter in place neruo exam- unremarkable Results - Labs CBC & Chem 7: 04/13/18 07:39 04/13/18 07:39 Laboratory Results - last 24 hr 04/12/18 04/12/18 04/12/18 11:31 17:05 21:21 WBC RBC Hgb Hct MCV MCH MCHC RDW Plt Count MPV Neut % (Auto) Lymph % (Auto) [place] % (Auto) Eos % (Auto) Baso % (Auto) Neut # (Auto) Lymph # (Auto) [place] # (Auto) Eos # (Auto) Baso # (Auto) WBC Differential Differential Comment PT INR Sodium Potassium Chloride Carbon Dioxide Anion Gap BUN Creatinine Estimated GFR POC Glucose 114 H 127 H 174 H Random Glucose Calcium Total Bilirubin AST ALT Alkaline Phosphatase Total Protein Albumin Urine Color Urine Clarity Urine pH Ur Specific [place] Urine Protein Urine Glucose (UA) Urine Ketones Urine Occult Blood Urine Nitrate Urine Bilirubin Urine Urobilinogen Ur Leukocyte Esterase Urine RBC Urine WBC Urine Mucus Micro UA Comment Ur Microscopic Review Urine Culture Comments Blood Type Antibody Screen MTS Gel Crossmatch 04/12/18 04/13/18 04/13/18 23:51 07:30 07:39 WBC 7.4 RBC 3.24 L Hgb 9.2 L Hct 28.1 L MCV 86.6 MCH 28.3 MCHC 32.7 RDW 15.6 Plt Count 358 MPV 8.3 Neut % (Auto) 61.7 Lymph % (Auto) 24.8 [place] % (Auto) 10.1 H Eos % (Auto) 2.7 Baso % (Auto) 0.7 Neut # (Auto) 4.6 Lymph # (Auto) 1.8 [place] # (Auto) 0.7 Eos # (Auto) 0.2 Baso # (Auto) 0.1 WBC Differential . Differential Comment Auto diff final PT INR Sodium Potassium Chloride Carbon Dioxide Anion Gap BUN Creatinine Estimated GFR POC Glucose 82 Random Glucose Calcium Total Bilirubin AST ALT Alkaline Phosphatase Total Protein Albumin Urine Color Yellow Urine Clarity Clear Urine pH 6.0 Ur Specific [place] 1.013 Urine Protein Negative Urine Glucose (UA) Negative Urine Ketones Negative Urine Occult Blood Small H Urine Nitrate Negative Urine Bilirubin Negative Urine Urobilinogen Less than 2 Ur Leukocyte Esterase Negative Urine RBC 8 H Urine WBC 2 Urine Mucus Few H Micro UA Comment Culture not ind Ur Microscopic Review Not Reportable Urine Culture Comments Culture not ind Blood Type Antibody Screen MTS Gel Crossmatch 04/13/18 04/13/18 04/13/18 07:39 07:39 07:39 WBC RBC Hgb Hct MCV MCH MCHC RDW Plt Count MPV Neut % (Auto) Lymph % (Auto) [place] % (Auto) Eos % (Auto) Baso % (Auto) Neut # (Auto) Lymph # (Auto) [place] # (Auto) Eos # (Auto) Baso # (Auto) WBC Differential Differential Comment PT 11.0 INR 1.1 Sodium 139 Potassium 3.9 Chloride 106 Carbon Dioxide 25.5 Anion Gap 8 BUN 9 Creatinine 0.64 Estimated GFR Greater than 89 POC Glucose Random Glucose 74 Calcium 8.4 L Total Bilirubin 0.4 AST 26 ALT 37 Alkaline Phosphatase 237 H Total Protein 6.8 Albumin 2.4 L Urine Color Urine Clarity Urine pH Ur Specific [place] Urine Protein Urine Glucose (UA) Urine Ketones Urine Occult Blood Urine Nitrate Urine Bilirubin Urine Urobilinogen Ur Leukocyte Esterase Urine RBC Urine WBC Urine Mucus Micro UA Comment Ur Microscopic Review Urine Culture Comments Blood Type A Positive Antibody Screen Negative MTS Gel Crossmatch See Detail - Procedures 03/22- cholecystostomy tube placement 03/23- cardiac cath 04/11- cystoscopy Assessment and Plan - Assessment (1) Cholecystitis Code(s): K81.9 - Cholecystitis, unspecified Status: Acute - Plan 67-year-old man with S/P Sepsis/ Acute cholecystitis E. coli and Klebsiella pneumonia on blood cultures - repeat blooc ultures negative x 5 days -03/19. S/p cholecystostomy tube drain- not a candidate for cholecystectomy at this time due to CAD and need for heart surgery. - - per GS notes- keep drain for several weeks - S/P Completed ceftriaxone 04/03. - Per ID, patient can proceed to CABG as blood cultures have remained negative -continue with pain control as needed. -continue cholecystostomy drain care as directed. GS ff- per last notes- keep drain for several weeks -LFTs trending down NSTEMI/Afib - now in SR on telemetry Multiveseel disease s/p cardiac cath with multivessel disease. Echo with EF 60% with no regional wall motion abnormalities. S/p KELLY with no vegetations. - paln for CABG -Continue Cardizem, Lipitor. ASA S/P cystoscopy- 04/11 Hematuria - resolved -voiding well- gross clear urine - Urology ff- 3 way scales placed today 04/13 - in anticipation of CABG DM II - good readings -continue Levemir and sliding scale and adjust as needed. HYpokalemia- improved - 20 meq KCL daily DVT prophylaxis with B-SCD PPI- hx of GERD
--- NOTE | 2018-04-13 10:43 | P.PNURO ---
Subjective Patient symptoms today: Pt seen and examined. No hematuria. Catheter placed at bedside without difficulty. Objective Vital Signs: Vital Signs 04/12/18 11:00 04/12/18 12:00 04/12/18 12:16 Temperature 97.8 F Pulse Rate 67 70 Respiratory Rate 16 Blood Pressure 115/70 Pulse Oximetry 95 95 04/12/18 13:00 04/12/18 14:00 04/12/18 15:00 Temperature 98.3 F Pulse Rate 78 74 74 Respiratory Rate 16 Blood Pressure 122/75 Pulse Oximetry 96 04/12/18 16:00 04/12/18 17:00 04/12/18 18:00 Temperature Pulse Rate 68 68 82 Respiratory Rate Blood Pressure Pulse Oximetry 04/12/18 19:00 04/12/18 20:00 04/12/18 21:00 Temperature 98.0 F Pulse Rate 72 82 86 Respiratory Rate 16 Blood Pressure 121/72 Pulse Oximetry 98 98 04/12/18 22:00 04/12/18 23:00 04/13/18 00:00 Temperature 98.4 F Pulse Rate 72 68 82 Respiratory Rate 16 Blood Pressure 105/60 Pulse Oximetry 96 04/13/18 01:00 04/13/18 02:00 04/13/18 03:00 Temperature 98.6 F Pulse Rate 82 66 65 Respiratory Rate 16 Blood Pressure 118/69 Pulse Oximetry 95 04/13/18 04:00 04/13/18 05:00 04/13/18 06:00 Temperature Pulse Rate 64 66 65 Respiratory Rate Blood Pressure Pulse Oximetry 04/13/18 07:00 04/13/18 08:00 Temperature 97.6 F Pulse Rate 63 Respiratory Rate 16 Blood Pressure 114/67 Pulse Oximetry 94 L 94 L Intake & Output 04/12/18 04/13/18 04/13/18 18:59 06:59 18:59 Intake Total 1600 / 1600 240 / 240 Output Total 650 / 650 450 / 450 Balance 950 / 950 -210 / -210 Weight 104.5 kg Intake: IV 1000 / 1000 NS Inj 1,000 ML @ 84 mls/hr IV. 1000 / 1000 CONT .[id number] [facility] Rx#:[id number] Oral 600 / 600 240 / 240 Output: Urine 650 / 650 450 / 450 Gastric Drainage 0 / 0 Right Lower Quadrant 0 / 0 Wound Drainage 0 / 0 Right Lower Abdomen 0 / 0 Other: Date of Last Bowel Movement 04/11/18 04/11/18 04/12/18 Result Diagrams: 04/13/18 07:39 04/13/18 07:39 Medications and IVs: Active Medications Generic Name Dose Route Start Last Admin Trade Name Freq PRN Reason Stop Dose Admin Acetaminophen 650 mg 03/19/18 16:02 03/27/18 09:04 Tylenol PO 650 mg Q4H PRN Administration Temp > 100.4 Al Hydroxide/Mg Hydroxide 30 ml 03/19/18 16:02 03/25/18 15:47 Milk Of Magnesia Liq PO 30 ml Q12H PRN Administration Mild Constipation Aspirin 81 mg 04/12/18 13:00 04/13/18 09:27 Aspirin Chew PO 81 mg DAILY [facility] Administration Atorvastatin Calcium 20 mg 03/28/18 09:00 04/13/18 09:27 Lipitor PO 20 mg DAILY [facility] Administration Bisacodyl 10 mg 03/19/18 16:02 04/03/18 14:07 Dulcolax Supp RECTAL 10 mg DAILY PRN Administration SEVERE CONSITIPATION Bisacodyl 10 mg 03/30/18 17:14 03/30/18 17:35 Dulcolax Ec PO 10 mg ONCE ONE Administration Chlorhexidine Gluconate 1 applicatio 04/12/18 13:15 Hibiclens 4% Topical TOPICAL 04/18/18 13:15 [employer] [facility] Sodium Chloride 77.5 ml/ 0 ml 04/12/18 13:15 Papaverine HCl 60 mg/ IRRIGATION 04/18/18 13:15 Nitroglycerin 100 mcg/ [employer] [facility] Diltiazem HCl 100 mg Sodium Chloride 500 ml/ 0 ml 04/12/18 13:15 Cefazolin Sodium 500 mg IRRIGATION 04/18/18 13:17 [employer] [facility] Dextrose 50 ml 03/19/18 16:51 D50w Vial IV.PUSH UNSCH PRN PER HYPOGLYCEMIA PROTOCOL Dextrose 50 ml 04/12/18 13:15 D50w Vial IV.PUSH UNSCH PRN PER HYPOGLYCEMIA PROTOCOL Diltiazem HCl 30 mg 03/23/18 13:00 04/13/18 09:27 Cardizem PO 30 mg QID [facility] Administration Glucagon 1 mg 03/19/18 16:51 Glucagon Inj OTHER PRN PRN for Hypoglycemia Protocol Sodium Chloride 1,000 mls @ 84 mls/hr 04/07/18 09:54 04/13/18 00:00 Ns Inj IV.CONT 84 mls/hr .[id number] [facility] Administration Cefazolin Sodium 2,000 mg/ 100 mls @ 200 mls/hr 04/12/18 14:00 Sodium Chloride IV.SIG 04/18/18 13:17 [employer] [facility] Insulin Human Regular 100 unit 100 mls @ 3 mls/hr 04/12/18 13:15 / Sodium Chloride IV.CONT TITRATE PRN See Protocol Protocol 3 UNITS/HR Insulin Aspart 0 unit 03/27/18 17:00 04/13/18 09:27 Novolog Insulin Correctional Sugar Inj SQ Not Given ACHS [facility] Protocol Insulin Detemir 5 unit 03/27/18 14:37 04/13/18 09:27 Levemir Inj SQ 5 unit BID [facility] Administration Lactulose 30 ml 03/19/18 16:02 03/25/18 15:47 Lactulose Liq PO 30 ml DAILY PRN Administration SEVERE CONSITIPATION Magnesium Oxide 400 mg 03/22/18 14:45 04/13/18 09:28 Mag-Ox PO 400 mg BID [facility] Administration Metformin HCl 1,000 mg 03/27/18 21:00 04/13/18 09:26 Glucophage PO 1,000 mg BID [facility] Administration Metoprolol Tartrate 12.5 mg 04/12/18 05:00 Lopressor PO 04/18/18 13:17 [employer] [facility] Morphine Sulfate 2 mg 03/31/18 11:26 04/03/18 11:00 Morphine Inj IV.PUSH 2 mg Q4H PRN Administration BREAKTHROUGH PAIN Oxycodone HCl 10 mg 03/31/18 11:25 04/13/18 09:26 Roxicodone PO 10 mg Q4H PRN Administration pain 6-10 Oxycodone HCl 5 mg 03/31/18 11:25 04/08/18 04:19 Roxicodone PO 5 mg Q4H PRN Administration pain 3-5 Pantoprazole Sodium 40 mg 03/19/18 16:15 04/13/18 09:26 Protonix PO 40 mg DAILY [facility] Administration Potassium Chloride 20 meq 03/29/18 09:00 04/13/18 09:27 K-Dur PO 20 meq DAILY [facility] Administration Prochlorperazine Edisylate 10 mg 04/03/18 17:47 04/13/18 09:26 Compazine Inj IV.PUSH 10 mg Q6H PRN Administration NAUSEA Senna/Docusate Sodium 1 tab 03/19/18 21:00 04/13/18 09:26 Carlotta-Colace PO 1 tab BID [facility] Administration Sennosides 17.2 mg 03/19/18 16:02 03/30/18 05:24 Senokot PO 17.2 mg Q12H PRN Administration Moderate Constipation Sodium Chloride 2 ml 03/20/18 09:00 04/13/18 09:29 Ns Flush IV.FLUSH Not Given BID [facility] Sodium Chloride 2 ml 03/20/18 00:12 03/26/18 02:04 Ns Flush IV.FLUSH 2 ml PRN PRN Administration FLUSH AFTER USING IV ACCESS Sodium Chloride 2 ml 04/12/18 21:00 04/13/18 09:28 Ns Flush IV.FLUSH Not Given BID [facility] Sodium Chloride 2 ml 04/12/18 13:15 Ns Flush IV.FLUSH PRN PRN FLUSH AFTER USING IV ACCESS Objective Remarks: Abd:soft,nt,nd Gross hematuria 04/09 Abd:soft,nt,nd Voiding clear urine. 04/10 Abd:soft,nt,nd Voiding clear urine. 04/13 Abd:soft,nt,nd Scales with clear urine upon placement. Assessment and Plan - Plan 67 y.o male s/p DE with gross hematuria voiding without clots. US showed normal bladder without mass or clots. Hgb 8.9. Continue IVF; not a good operative candidate Will need cysto in future when medically cleared. 04/09 67 y.o male s/p DE with gross hematuria. Hematuria has resolved after stopping anticoagulation. Continue IVF; not a good operative candidate Will need cysto prior to CABG to make sure he does not have a bladder tumor that will bleed once heparinized during a CABG. 04/10 67 y.o male s/p DE with gross hematuria. Hematuria has resolved after stopping anticoagulation. Continue IVF; not a good operative candidate at the present time Will perform cysto this week at bedside. 04/13 67 y.o male s/p DE with gross hematuria. Hematuria has resolved after stopping anticoagulation. 24F 3Way scales placed without difficulty. For CABG in AM.
[2018-04-13] MEDS: Sod Chloride 0.9% Inj 1,000 ML IV.CONT SCH ×3 (10:47→21:23)
--- NOTE | 2018-04-13 12:30 | P.PNCV ---
- Note Subjective/Hospital Course: 67-year-old male who presented to [facility] 03/19/18 due to nausea, vomiting and abdominal pain. He states that he was awakened at 6 a.m. with left -sided flank pain and left mid back pain radiating to the left lower quadrant. He developed nausea and vomiting secondary to the pain. he was incidentally found to have cholecystitis, perc burt tube was placed , Trop was + underwent cardiac cath by Dr Pérez : mid LAD 80%, Left Circ 70 % lesion, RCA 100% occluded in the mid portion with [id number] and right-to- right collaterals supplying the distal portion. Blood cultures grew klebsiella pneumoniae and E coli , followed by ID and recommended to at least complete one week course of IV antibiotics prior to surgery PAST MEDICAL HISTORY: Diabetes, GERD, Hyperlipidemia, morbid obesity with BMI 40, History of gastric bypass. 03/27 pt is pain free at this time , has perc burt drain US of lower ext neg for DVT, Carotid US no stenosis continues on IV antibiotics per ID : VIVIENNE cefepime IV Ceftriaxone IV once a day (stop date: 04/03/2018) after which we will repeat BCX on 04/04/18. If these repeat bcx are negative at 48 hrs and patient clinically doing well will clear him from CABG. VIVIENNE Flagyl consult PT 03/28 pain free will follow / schedule for surgery next week when cleared by ID 03/29 still has some mild right flank pain burt drain in place no chest pain 04/03 c/o of nausea and vomiting since last night , also some abdominal pain for repeat CT abdomen today also repeat Blood cultures pending 04/05 still complaining of nausea and vomiting burt drain in place 04/10 events noted over weekend blood culture neg 04/03 , off all antibiotics still has burt drain , nursing flushing periodically per Uro / will perform bedside cystoscopy at bedside this week / urine has cleared since Heparin vivienne General surgery / will see after 3-4 weeks after CABG to al for cholecystectomy will discuss timing for surgery with Dr Carlin no further complaints of nausea / vomiting 04/11 resting comfortably await bedside cystoscopy/ and clearance from urology then plan for timing of CABG, needs to be placed back on ASA 04/12 cleared by Urology for surgery " s/p bedside [place] cystoscopy did not show any abnormalities within the bladder there were no bladder tumors identified. Retroflex examination of the bladder neck showed an area of friability at the prostate which was most likely the area that was bleeding at the time. per Urology: recommend placement of 3 way scales prior to surgery pt ambulating with walker, no nausea scheduled for surgery on tuesday will need 3 way cath placed by urology on 04/[address] catheter placed by Urology stable for surgery in am Objective: Vital Signs - 24 hr 04/12/18 13:00 04/12/18 14:00 04/12/18 15:00 Temperature 98.3 F Pulse Rate 78 74 74 Respiratory Rate 16 Blood Pressure 122/75 Pulse Oximetry 96 04/12/18 16:00 04/12/18 17:00 04/12/18 18:00 Temperature Pulse Rate 68 68 82 Respiratory Rate Blood Pressure Pulse Oximetry 04/12/18 19:00 04/12/18 20:00 04/12/18 21:00 Temperature 98.0 F Pulse Rate 72 82 86 Respiratory Rate 16 Blood Pressure 121/72 Pulse Oximetry 98 98 04/12/18 22:00 04/12/18 23:00 04/13/18 00:00 Temperature 98.4 F Pulse Rate 72 68 82 Respiratory Rate 16 Blood Pressure 105/60 Pulse Oximetry 96 04/13/18 01:00 04/13/18 02:00 04/13/18 03:00 Temperature 98.6 F Pulse Rate 82 66 65 Respiratory Rate 16 Blood Pressure 118/69 Pulse Oximetry 95 04/13/18 04:00 04/13/18 05:00 04/13/18 06:00 Temperature Pulse Rate 64 66 65 Respiratory Rate Blood Pressure Pulse Oximetry 04/13/18 07:00 04/13/18 08:00 04/13/18 09:00 Temperature 97.6 F Pulse Rate 63 70 108 H Respiratory Rate 16 Blood Pressure 114/67 Pulse Oximetry 94 L 94 L 04/13/18 10:00 04/13/18 11:00 Temperature 97.5 F L Pulse Rate 78 76 Respiratory Rate 16 Blood Pressure 116/74 Pulse Oximetry 95 GENERAL: A&O x 3 SKIN: Warm and dry. HEAD: Normocephalic. EYES: No scleral icterus. No injection or drainage. NECK: Supple, trachea midline. No JVD or lymphadenopathy. CARDIOVASCULAR: Regular rate and rhythm without murmurs, gallops, or rubs. RESPIRATORY: Breath sounds equal bilaterally. No accessory muscle use. GASTROINTESTINAL: Abdomen soft, non-tender, nondistended. chol drain in place MUSCULOSKELETAL: No cyanosis, or edema. BACK: Nontender without obvious deformity. No CVA tenderness. Labs: Laboratory Results - last 12 hr 04/13/18 04/13/18 04/13/18 07:30 07:39 07:39 WBC 7.4 RBC 3.24 L Hgb 9.2 L Hct 28.1 L MCV 86.6 MCH 28.3 MCHC 32.7 RDW 15.6 Plt Count 358 MPV 8.3 Neut % (Auto) 61.7 Lymph % (Auto) 24.8 Clinch % (Auto) 10.1 H Eos % (Auto) 2.7 Baso % (Auto) 0.7 Neut # (Auto) 4.6 Lymph # (Auto) 1.8 Clinch # (Auto) 0.7 Eos # (Auto) 0.2 Baso # (Auto) 0.1 WBC Differential . Differential Comment Auto diff final PT 11.0 INR 1.1 Sodium Potassium Chloride Carbon Dioxide Anion Gap BUN Creatinine Estimated GFR POC Glucose 82 Random Glucose Calcium Total Bilirubin AST ALT Alkaline Phosphatase Total Protein Albumin Blood Type Antibody Screen MTS Gel Crossmatch 04/13/18 04/13/18 04/13/18 07:39 07:39 11:37 WBC RBC Hgb Hct MCV MCH MCHC RDW Plt Count MPV Neut % (Auto) Lymph % (Auto) [place] % (Auto) Eos % (Auto) Baso % (Auto) Neut # (Auto) Lymph # (Auto) [place] # (Auto) Eos # (Auto) Baso # (Auto) WBC Differential Differential Comment PT INR Sodium 139 Potassium 3.9 Chloride 106 Carbon Dioxide 25.5 Anion Gap 8 BUN 9 Creatinine 0.64 Estimated GFR Greater than 89 POC Glucose 122 H Random Glucose 74 Calcium 8.4 L Total Bilirubin 0.4 AST 26 ALT 37 Alkaline Phosphatase 237 H Total Protein 6.8 Albumin 2.4 L Blood Type A Positive Antibody Screen Negative MTS Gel Crossmatch See Detail Result Diagrams: 04/13/18 07:39 04/13/18 07:39 - Plan (1) Coronary artery disease involving [place] coronary artery Plan: scheduled for CABG on tuesday OOB/ PT (3) Afib Plan: in NSR (4) Cholecystitis Plan: s/p perc drain general surgery will see outpt 4-6 weeks after surgery to eval for lap burt
[2018-04-13] MEDS ORDERED: ceFAZolin 2 GM Premix Inj 2 GM/50 ML PIGGYBACK IV.SIG SCH (15:45)
--- NOTE | 2018-04-13 17:40 | P.PNCA ---
Subjective Interval history: No events overnight 3 Way catheter placed Medications and Allergies Active Medications: Active Medications Acetaminophen (Tylenol) 650 mg PO Q4H PRN PRN Reason: Temp > 100.4 Last Admin: 03/27/18 09:04 Dose: 650 mg Al Hydroxide/Mg Hydroxide (Milk Of Magnsofia Liq) 30 ml PO Q12H PRN PRN Reason: Mild Constipation Last Admin: 03/25/18 15:47 Dose: 30 ml Aspirin (Aspirin Chew) 81 mg PO DAILY [facility] Last Admin: 04/13/18 09:27 Dose: 81 mg Atorvastatin Calcium (Lipitor) 20 mg PO DAILY [facility] Last Admin: 04/13/18 09:27 Dose: 20 mg Bisacodyl (Dulcolax Supp) 10 mg RECTAL DAILY PRN PRN Reason: SEVERE CONSITIPATION Last Admin: 04/03/18 14:07 Dose: 10 mg Bisacodyl (Dulcolax Ec) 10 mg PO ONCE ONE Last Admin: 03/30/18 17:35 Dose: 10 mg Chlorhexidine Gluconate (Hibiclens 4% Topical) 1 applicatio TOPICAL [employer] [facility] Stop: 04/18/18 13:15 Sodium Chloride 77.5 ml/Papaverine HCl 60 mg/Nitroglycerin 100 mcg/Diltiazem HCl 100 mg 0 ml IRRIGATION [employer] [facility] Stop: 04/18/18 13:15 Sodium Chloride 500 ml/ (Cefazolin Sodium 500 mg) 0 ml IRRIGATION [employer] [facility] Stop: 04/18/18 13:17 Dextrose (D50w Vial) 50 ml IV.PUSH UNSCH PRN PRN Reason: PER HYPOGLYCEMIA PROTOCOL Dextrose (D50w Vial) 50 ml IV.PUSH UNSCH PRN PRN Reason: PER HYPOGLYCEMIA PROTOCOL Diltiazem HCl (Cardizem) 30 mg PO QID [facility] Last Admin: 04/13/18 13:09 Dose: 30 mg Glucagon (Glucagon Inj) 1 mg OTHER PRN PRN PRN Reason: for Hypoglycemia Protocol Sodium Chloride (Ns Inj) 1,000 mls @ 84 mls/hr IV.CONT .[id number] [facility] Last Admin: 04/13/18 10:47 Dose: Not Given Insulin Human Regular 100 unit (/ Sodium Chloride) 100 mls @ 3 mls/hr IV.CONT TITRATE PRN; Protocol PRN Reason: See Protocol Cefazolin Sodium/Dextrose (Ancef 2 Gm Premix Inj) 2 gm in 50 mls @ 100 mls/hr IV.SIG [employer] [facility] Stop: 04/18/18 13:59 Insulin Aspart (Novolog Insulin Correctional Sugar Inj) 0 unit SQ ACHS [facility]; Protocol Last Admin: 04/13/18 13:10 Dose: Not Given Insulin Detemir (Levemir Inj) 5 unit SQ BID [facility] Last Admin: 04/13/18 09:27 Dose: 5 unit Lactulose (Lactulose Liq) 30 ml PO DAILY PRN PRN Reason: SEVERE CONSITIPATION Last Admin: 03/25/18 15:47 Dose: 30 ml Magnesium Oxide (Mag-Ox) 400 mg PO BID [facility] Last Admin: 04/13/18 09:28 Dose: 400 mg Metformin HCl (Glucophage) 1,000 mg PO BID [facility] Last Admin: 04/13/18 09:26 Dose: 1,000 mg Metoprolol Tartrate (Lopressor) 12.5 mg PO [employer] [facility] Stop: 04/18/18 13:17 Morphine Sulfate (Morphine Inj) 2 mg IV.PUSH Q4H PRN PRN Reason: BREAKTHROUGH PAIN Last Admin: 04/03/18 11:00 Dose: 2 mg Oxycodone HCl (Roxicodone) 10 mg PO Q4H PRN PRN Reason: pain 6-10 Last Admin: 04/13/18 16:56 Dose: 10 mg Oxycodone HCl (Roxicodone) 5 mg PO Q4H PRN PRN Reason: pain 3-5 Last Admin: 04/08/18 04:19 Dose: 5 mg Pantoprazole Sodium (Protonix) 40 mg PO DAILY [facility] Last Admin: 04/13/18 09:26 Dose: 40 mg Potassium Chloride (K-Dur) 20 meq PO DAILY [facility] Last Admin: 04/13/18 09:27 Dose: 20 meq Prochlorperazine Edisylate (Compazine Inj) 10 mg IV.PUSH Q6H PRN PRN Reason: NAUSEA Last Admin: 04/13/18 09:26 Dose: 10 mg Senna/Docusate Sodium (Carlotta-Colace) 1 tab PO BID [facility] Last Admin: 04/13/18 09:26 Dose: 1 tab Sennosides (Senokot) 17.2 mg PO Q12H PRN PRN Reason: Moderate Constipation Last Admin: 03/30/18 05:24 Dose: 17.2 mg Sodium Chloride (Ns Flush) 2 ml IV.FLUSH BID [facility] Last Admin: 04/13/18 09:29 Dose: Not Given Sodium Chloride (Ns Flush) 2 ml IV.FLUSH PRN PRN PRN Reason: FLUSH AFTER USING IV ACCESS Last Admin: 03/26/18 02:04 Dose: 2 ml Sodium Chloride (Ns Flush) 2 ml IV.FLUSH BID [facility] Last Admin: 04/13/18 09:28 Dose: Not Given Sodium Chloride (Ns Flush) 2 ml IV.FLUSH PRN PRN PRN Reason: FLUSH AFTER USING IV ACCESS Allergies Allergy/AdvReac Type Severity Reaction Status Date / Time No Known Allergies Allergy Verified 03/19/18 10:28 Home Medications Medication Instructions Recorded Confirmed Type atorvastatin 20 mg PO DAILY 03/19/18 03/19/18 History liraglutide [Victoza 2-Sonido] 0.6 mg SUBCUT DAILY 03/19/18 03/19/18 History metformin 1,000 mg PO BID 03/19/18 03/19/18 History omeprazole-sodium bicarbonate 1 cap PO DAILY 03/19/18 03/19/18 History pantoprazole 20 mg PO DAILY 03/19/18 03/19/18 History Physical Exam Vital signs: Vital Signs 04/12/18 18:00 04/12/18 19:00 04/12/18 20:00 Temperature 98.0 F Pulse Rate 82 72 82 Respiratory Rate 16 Blood Pressure 121/72 Pulse Oximetry 98 98 04/12/18 21:00 04/12/18 22:00 04/12/18 23:00 Temperature 98.4 F Pulse Rate 86 72 68 Respiratory Rate 16 Blood Pressure 105/60 Pulse Oximetry 96 04/13/18 00:00 04/13/18 01:00 04/13/18 02:00 Temperature Pulse Rate 82 82 66 Respiratory Rate Blood Pressure Pulse Oximetry 04/13/18 03:00 04/13/18 04:00 04/13/18 05:00 Temperature 98.6 F Pulse Rate 65 64 66 Respiratory Rate 16 Blood Pressure 118/69 Pulse Oximetry 95 04/13/18 06:00 04/13/18 07:00 04/13/18 08:00 Temperature 97.6 F Pulse Rate 65 63 70 Respiratory Rate 16 Blood Pressure 114/67 Pulse Oximetry 94 L 94 L 04/13/18 09:00 04/13/18 10:00 04/13/18 11:00 Temperature 97.5 F L Pulse Rate 108 H 78 76 Respiratory Rate 16 Blood Pressure 116/74 Pulse Oximetry 95 04/13/18 12:00 04/13/18 13:00 04/13/18 14:00 Temperature Pulse Rate 70 74 72 Respiratory Rate Blood Pressure Pulse Oximetry 04/13/18 15:00 Temperature Pulse Rate 86 Respiratory Rate Blood Pressure Pulse Oximetry Intake & Output 04/12/18 04/13/18 04/13/18 18:59 06:59 18:59 Intake Total 1600 / 1600 240 / 240 Output Total 650 / 650 450 / 450 Balance 950 / 950 -210 / -210 Weight 104.5 kg Intake: IV 1000 / 1000 NS Inj 1,000 ML @ 84 mls/hr IV. 1000 / 1000 CONT .[id number] [facility] Rx#:[id number] Oral 600 / 600 240 / 240 Output: Urine 650 / 650 450 / 450 Gastric Drainage 0 / 0 Right Lower Quadrant 0 / 0 Wound Drainage 0 / 0 Right Lower Abdomen 0 / 0 Other: Date of Last Bowel Movement 04/11/18 04/11/18 04/12/18 Narrative: awake and alert, no distress anicteric neck supple lungs- no rales, no wheezes regular rhythm abdomen soft nontender, right UQ- cholecystostomy tube in place- minimal drainage extremities no edema, no calf tenderness 3 way scales catheter in place neruo exam- unremarkable - Urinary Catheter Management 3-way Urethral Cath placed during this visit: yes Reason for continuing: Hourly intake/output Insertion date: 04/13/18 Results 04/13/18 07:39 04/13/18 07:39 Cardiac Enzymes 04/13/18 Range/Units 07:39 AST 26 (15-37) U/L Coagulation 04/13/18 Range/Units 07:39 PT 11.0 (9.8-11.6) sec CBC 04/13/18 Range/Units 07:39 WBC 7.4 (4.0-11.0) th/mm3 RBC 3.24 L (4.50-5.90) mil/mm3 Hgb 9.2 L (13.0-17.0) gm/dL Hct 28.1 L (39.0-51.0) % Plt Count 358 (150-450) th/mm3 Neut # (Auto) 4.6 (1.8-7.7) th/mm3 Lymph # (Auto) 1.8 (1.0-4.8) th/mm3 [place] # (Auto) 0.7 (0.0-0.9) th/mm3 Eos # (Auto) 0.2 (0.0-0.4) th/mm3 Baso # (Auto) 0.1 (0.0-0.2) th/mm3 Comprehensive Metabolic Panel 04/13/18 Range/Units 07:39 Sodium 139 (136-145) meq/L Potassium 3.9 (3.5-5.1) meq/L Chloride 106 (98-107) meq/L Carbon Dioxide 25.5 (21.0-32.0) meq/L BUN 9 (7-18) mg/dL Creatinine 0.64 (0.60-1.30) mg/dL Calcium 8.4 L (8.5-10.1) mg/dL AST 26 (15-37) U/L ALT 37 (12-78) U/L Alkaline Phosphatase 237 H (45-117) U/L Total Protein 6.8 (6.4-8.2) g/dL Albumin 2.4 L (3.4-5.0) g/dL Intake and Output 04/13/18 04/13/18 04/13/18 06:59 14:59 22:59 Intake Total 240 / 240 Output Total 450 / 450 Balance -210 / -210 Intake: Oral 240 / 240 Output: Urine 450 / 450 Gastric Drainage 0 / 0 Right Lower Quadrant 0 / 0 Other: Date of Last Bowel Movement 04/11/18 04/12/18 Weight 104.5 kg Assessment and Plan - Assessment (1) NSTEMI (non-ST elevated myocardial infarction) Code(s): I21.4 - Non-ST elevation (NSTEMI) myocardial infarction Status: Acute (2) Afib Code(s): I48.91 - Unspecified atrial fibrillation Status: Acute (3) SIRS (systemic inflammatory response syndrome) Code(s): R65.10 - Systemic inflammatory response syndrome (SIRS) of non- infectious origin without acute organ dysfunction Status: Acute (4) Intractable abdominal pain Code(s): R10.9 - Unspecified abdominal pain Status: Acute - Plan 1) Abdominal pain/nausea/emesis Found to have cholecystitis Perc burt drain in place with relief of symptoms 2) NSTEMI Found to have multivessel CAD CT surgery evaluation Complex case with acute cholecystitis with percutaneous cholecystostomy tube Await repeat blood cultures, if negative then CABG CABG planned for tomorrow 3) Afib New onset Started on Cardizem, heart rates controlled Eventual anti-coagulation 4) Bacteremia KELLY negative for vegetation, no signs of endocarditis 5) Hematuria ASA/Lovenox stopped Cystoscopy done 3 way catheter placed before CABG ASA restarted 6) MRCP showing multiple stones in the common bile duct No further symptoms Most likely passed the stones
[2018-04-13] MEDS: Morphine Sulfate Inj 2 MG/ML Vial IV.PUSH PRN (21:04)
[2018-04-14] MEDS: Sod Chloride 0.9% Inj 1,000 ML IV.CONT SCH ×3 (01:23→19:41)
[2018-04-14] MEDS: Morphine Sulfate Inj 2 MG/ML Vial IV.PUSH PRN (01:23)
[2018-04-14] MEDS ORDERED: Chlorhexidine Gluconate 2% 1 Pack (2 Cloths) TOPICAL ONE (01:45)
[2018-04-14] MEDS ORDERED: Sodium Chlor 0.9% Inj 500 ML IV.SIG SCH (02:00)
[2018-04-14] MEDS: Metoprolol Tartrate 25 MG Tablet PO SCH (05:01)
[2018-04-14] MEDS ORDERED: Heparin - SQ 10,000 UNITS/ML Vial ONE ×2 (06:36→06:37)
--- NOTE | 2018-04-14 07:28 | P.PN ---
Subjective Interval history: going for CABG scales- grossly clear urine- good urine output some discomfort-3 way scales site slept well Physical Exam Vital signs: Vital Signs 04/13/18 08:00 04/13/18 09:00 04/13/18 10:00 Temperature Pulse Rate 70 108 H 78 Respiratory Rate Blood Pressure Pulse Oximetry 94 L 04/13/18 11:00 04/13/18 12:00 04/13/18 13:00 Temperature 97.5 F L Pulse Rate 76 70 74 Respiratory Rate 16 Blood Pressure 116/74 Pulse Oximetry 95 04/13/18 14:00 04/13/18 15:00 04/13/18 16:00 Temperature 98.0 F Pulse Rate 72 87 82 Respiratory Rate 16 Blood Pressure 100/65 Pulse Oximetry 93 L 04/13/18 17:00 04/13/18 18:00 04/13/18 19:00 Temperature 98.2 F Pulse Rate 90 74 71 Respiratory Rate 22 Blood Pressure 129/77 Pulse Oximetry 92 L 04/13/18 20:00 04/13/18 21:00 04/13/18 22:00 Temperature Pulse Rate 70 64 68 Respiratory Rate Blood Pressure Pulse Oximetry 98 04/13/18 23:00 04/14/18 00:00 04/14/18 01:00 Temperature 98.0 F Pulse Rate 72 72 69 Respiratory Rate 18 Blood Pressure 116/69 Pulse Oximetry 96 04/14/18 02:00 04/14/18 03:00 04/14/18 04:00 Temperature 98.2 F Pulse Rate 70 71 68 Respiratory Rate 16 Blood Pressure 113/70 Pulse Oximetry 95 04/14/18 05:00 04/14/18 06:00 Temperature Pulse Rate 65 61 Respiratory Rate Blood Pressure Pulse Oximetry Intake & Output 04/13/18 04/14/18 04/14/18 18:59 06:59 18:59 Intake Total 1620 / 1620 240 / 240 Output Total 875 / 875 1000 / 1000 Balance 745 / 745 -760 / -760 Weight 103.5 kg Intake: IV 900 / 900 NS Inj 1,000 ML @ 84 mls/hr IV. 900 / 900 CONT .[id number] [facility] Rx#:[id number] Oral 720 / 720 240 / 240 Output: Urine 175 / 175 Urine Amount (Catheter) 700 / 700 1000 / 1000 3-way Urethral 700 / 700 1000 / 1000 Gastric Drainage 0 / 0 Right Lower Quadrant 0 / 0 Other: Date of Last Bowel Movement 04/12/18 04/11/18 Narrative: awake and alert, no distress anicteric neck supple lungs- no rales, no wheezes regular rhythm abdomen soft nontender, right UQ- cholecystostomy tube in place- minimal drainage extremities no edema, no calf tenderness 3 way scales catheter in place neuro exam- unremarkable - Urinary Catheter Management 3-way Urethral Cath placed during this visit: yes Reason for continuing: Hourly intake/output Insertion date: 04/13/18 Results - Labs CBC & Chem 7: 04/13/18 07:39 04/13/18 07:39 Laboratory Results - last 24 hr 04/13/18 04/13/18 04/13/18 07:30 07:39 07:39 WBC 7.4 RBC 3.24 L Hgb 9.2 L Hct 28.1 L MCV 86.6 MCH 28.3 MCHC 32.7 RDW 15.6 Plt Count 358 MPV 8.3 Neut % (Auto) 61.7 Lymph % (Auto) 24.8 [place] % (Auto) 10.1 H Eos % (Auto) 2.7 Baso % (Auto) 0.7 Neut # (Auto) 4.6 Lymph # (Auto) 1.8 [place] # (Auto) 0.7 Eos # (Auto) 0.2 Baso # (Auto) 0.1 WBC Differential . Differential Comment Auto diff final PT 11.0 INR 1.1 Sodium Potassium Chloride Carbon Dioxide Anion Gap BUN Creatinine Estimated GFR POC Glucose 82 Random Glucose Calcium Total Bilirubin AST ALT Alkaline Phosphatase Total Protein Albumin Blood Type Antibody Screen MTS Gel Crossmatch 04/13/18 04/13/18 04/13/18 07:39 07:39 11:37 WBC RBC Hgb Hct MCV MCH MCHC RDW Plt Count MPV Neut % (Auto) Lymph % (Auto) [place] % (Auto) Eos % (Auto) Baso % (Auto) Neut # (Auto) Lymph # (Auto) [place] # (Auto) Eos # (Auto) Baso # (Auto) WBC Differential Differential Comment PT INR Sodium 139 Potassium 3.9 Chloride 106 Carbon Dioxide 25.5 Anion Gap 8 BUN 9 Creatinine 0.64 Estimated GFR Greater than 89 POC Glucose 122 H Random Glucose 74 Calcium 8.4 L Total Bilirubin 0.4 AST 26 ALT 37 Alkaline Phosphatase 237 H Total Protein 6.8 Albumin 2.4 L Blood Type A Positive Antibody Screen Negative MTS Gel Crossmatch See Detail 04/13/18 04/13/18 16:05 21:04 WBC RBC Hgb Hct MCV MCH MCHC RDW Plt Count MPV Neut % (Auto) Lymph % (Auto) [place] % (Auto) Eos % (Auto) Baso % (Auto) Neut # (Auto) Lymph # (Auto) [place] # (Auto) Eos # (Auto) Baso # (Auto) WBC Differential Differential Comment PT INR Sodium Potassium Chloride Carbon Dioxide Anion Gap BUN Creatinine Estimated GFR POC Glucose 120 H 189 H Random Glucose Calcium Total Bilirubin AST ALT Alkaline Phosphatase Total Protein Albumin Blood Type Antibody Screen MTS Gel Crossmatch - Procedures 03/22- cholecystostomy tube placement 03/23- cardiac cath 04/11- cystoscopy Assessment and Plan - Assessment (1) Cholecystitis Code(s): K81.9 - Cholecystitis, unspecified Status: Acute - Plan 67-year-old man with NSTEMI Afib - now in SR on telemetry Multiveseel disease s/p cardiac cath with multivessel disease. Echo with EF 60% with no regional wall motion abnormalities. S/p KELLY with no vegetations. -Continue Cardizem, Lipitor. ASA - CABG today S/P Sepsis/ Acute cholecystitis E. coli and Klebsiella pneumonia on blood cultures - repeat blooc ultures negative x 5 days -03/19. S/p cholecystostomy tube drain- not a candidate for cholecystectomy at this time due to CAD and need for heart surgery. - - per notes- keep drain for several weeks - S/P Completed ceftriaxone 04/03. - ID ff- patient can proceed to CABG as blood cultures have remained negative -continue with pain control as needed. -continue cholecystostomy drain care as directed. ff- per last notes- keep drain for several weeks -LFTs trending down S/P cystoscopy- 04/11 Hematuria - resolved -voiding well- gross clear urine - Urology ff- 3 way scales placed today 04/13 - in anticipation of CABG DM II - good readings -continue Levemir and sliding scale and adjust as needed. HYpokalemia- improved - 20 meq KCL daily DVT prophylaxis with B-SCD PPI- hx of GERD
[2018-04-14] MEDS ORDERED: ceFAZolin 1 GM Premix Inj 1 GM/50 ML PIGGYBACK IV.SIG ONE (11:27)
[2018-04-14] MEDS ORDERED: Protamine Sulfate Inj 50 MG/5 ML Vial ONE (12:24)
[2018-04-14] MEDS: Insulin NovoLOG Aspart Correctional Sugar Inj SQ SCH (12:52)
[2018-04-14] MEDS: Insulin Detemir Inj 1,000 UNIT/10 ML Vial SQ SCH ×2 (12:53→23:44)
[2018-04-14] MEDS: Magnesium Oxide 400 MG Tablet PO SCH (12:53)
[2018-04-14] MEDS: Sodium Chloride 0.9% 2 ML Flush BID IV.FLUSH SCH ×2 (12:53→23:45)
[2018-04-14] MEDS: dilTIAZem 30 MG Tablet PO SCH ×4 (12:53→23:44)
[2018-04-14] MEDS: Senna/Docusate Sodium 8.6/50 MG Tablet PO SCH ×2 (12:54→23:44)
[2018-04-14] MEDS ORDERED: Dexmedetomidine Inj 200 MCG in Sodium Chlor 0.9% Inj 48 ML IV.CONT PRN (13:33)
[2018-04-14] MEDS ORDERED: Norepinephrine Inj 4 MG in Sodium Chlor 0.9% Inj 246 ML IV.SIG PRN (13:33)
[2018-04-14] MEDS ORDERED: Post-op Orders (for Pharmacy) OTHER STA (13:33)
[2018-04-14] MEDS ORDERED: Calcium Chloride Inj 1 GM/10 ML Syringe IV.PUSH PRN (13:33)
[2018-04-14] MEDS ORDERED: Magnesium Sulfate Inj 2 GM in Sodium Chlor 0.9% Inj 96 ML IV.SIG PRN ×4 (13:33)
[2018-04-14] MEDS ORDERED: RESP: Racemic Epinephrine 2.25% 0.5 ML Neb NEB PRN (13:33)
[2018-04-14] MEDS ORDERED: Metoprolol Inj 5 MG/5 ML Vial IV.PUSH PRN (13:33)
[2018-04-14] MEDS ORDERED: Potassium Chlor 20 mEq Premix 20 MEQ/100 ML PIGGYBACK IV.SIG PRN ×2 (13:33)
[2018-04-14] MEDS ORDERED: Morphine Sulfate Inj 2 MG/ML Vial IV.PUSH PRN (13:33)
--- NOTE | 2018-04-14 13:47 | P.OP ---
Date of procedure: 04/14/18 Anesthesia: GETA Surgeon: Yanira Carlin MD Operation and Findings: PREPROCEDURE DIAGNOSES 1. Severe Multi Vessel Coronary Artery Disease. 2. Acute Myocardial Infarction (NSTEMI) 3. Acute Cholecystitis s/p percutaneous cholecystostomy tube placement 4. Sepsis and Bacteremia 5. Severe Pulmonary Insufficiency 6. Intramyocardial Coronary Vessels POSTPROCEDURE DIAGNOSES Same SURGICAL PROCEDURE 1. Urgent Off-pump Coronary Artery Bypass Grafting x 3 with Left Internal Mammary Artery (THOMAS) to Left Anterior Descending (LAD), reverse saphenous vein graft to obtuse Marginal branch of the left Circumflex artery, reverse saphenous vein graft to the posterior Descending branch of the right Coronary artery 2. Left leg Endoscopic Vein Roscoe 3. Ultrasound-guided dissection of the LAD 4. Intraoperative Vein Mapping. SURGEON Yanira Carlin MD ULTRASOUND TECHNOL Magdalene Wilde PA-C ANESTHESIA General endotracheal DOUGHNUT DOUGH MIXER Latoya Koch, BANKING ANALYST Enrique Sutherland MD PREPARATION ChloraPrep. COUNTS Needle, sponge, and instrument counts were correct. DRAINS Two 32-Romanian mediastinal tubes. COMPLICATIONS None. INDICATIONS FOR PROCEDURE The patient is a 67-year-old presenting with chest pain and acute myocardial infarction. Patient was noted to have multiple vessel coronary artery disease. The patient is being brought to the operating room for surgical revascularization therapy. PROCEDURE Patient was brought to the operating room and placed supine on the OR table. Following the induction of adequate general endotracheal anesthesia and placement of appropriate monitoring devices, intraoperative vein mapping was performed which revealed good-caliber conduit in bilateral lower extremities. The patient was then prepped and draped in standard sterile fashion. Next, 2500 units of intravenous heparin was given. The left greater saphenous vein was harvested endoscopically. This appeared to be a useable-caliber conduit. Simultaneously, a median sternotomy was performed and the left internal mammary artery dissected free off the posterior sternal table. The patient was systemically heparinized and anticoagulation monitored by serial ACT measurements. The internal mammary artery had excellent pulsatile flow in it and was a good-caliber conduit. The pericardium was then divided in the midline , the cradle created and targets analyzed. At this point, all anastomoses were performed in a beating-heart fashion using the Airborne Mobile stabilizing system. The LAD was noted to be deeply intramyocardial and was identified using the ultrasound probe. It was a very friable vessel. The left internal mammary artery was anastomosed to the mid LAD (2 mm) in an end-to-side fashion using 7- 0 Prolene. Segment of saphenous vein graft was then anastomosed to the OM1 (1.5 mm) in an end-to-side fashion using 7-0 Prolene. The final segment was anastomosed to the RPDA (1.5 mm) in an end-to-side fashion using 7-0 Prolene. The proximal anastomoses were then constructed to the ascending aorta in a running manner using 6-0 Prolene. All anastomotic sites were inspected and appeared to be hemostatic and patent. Protamine solution was given. Strict hemostasis was assured. The closure was undertaken. 2 chest tubes were placed. The pericardium was reapproximated in the midline. The sternum was approximated using sternal wires. The muscular and fascial layer were then closed in 3 layers. The endoscopic vein harvest site was closed in 2 layers. The patient tolerated the procedure well and was transferred to CVICU in stable condition.
[2018-04-14] MEDS ORDERED: ceFAZolin Inj 2,000 MG in Sodium Chlor 0.9% Inj 80 ML IV.SIG SCH (14:00)
[2018-04-14] MEDS: Phenylephrine Inj 40 MG in Sodium Chlor 0.9% Inj 496 ML IV.CONT PRN (14:10)
[2018-04-14] MEDS ORDERED: fentaNYL Citrate Inj 250 MCG/5 ML Ampul ONE ×2 (14:24)
[2018-04-14] MEDS ORDERED: Insulin Regular (For Infusion) 100 UNIT in Sodium Chlor 0.9% Inj 99 ML IV.CONT PRN (15:00)
--- NOTE | 2018-04-14 15:05 | XR ---
EXAM DATE: 04/14/2018 3:01 PM EST AGE/SEX: 67 years / Male INDICATIONS: Post op cabg. CLINICAL DATA: This is the patient's initial encounter. Patient reports that signs and symptoms have been present for 1 day and indicates a pain score of Nonresponsive. MEDICAL/SURGICAL HISTORY: Myocardial infarction. Gastroesophageal reflux disease. diabetes . gastric bypass COMPARISON: [facility], CHEST 2V PA&LAT, 03/26/2018. . FINDINGS: Endotracheal tube is present with tip 5 cm above the remedios. A nasogastric tube descends to the stoma ch. Distal sidehole likely remains in the esophagus. Midline chest tube and left thoracostomy tube ar e present. A right neck sheath and central catheter present in good position. Sternotomy wires noted. There is mild central vascular congestion and mild atelectasis in the left lung base. Cardiac contou rs are satisfactory. CONCLUSION: Satisfactory postop appearance Electronically signed by: Elías Pickett MD 04/14/2018 3:04 PM EST
[2018-04-14] MEDS: Ketorolac Inj 30 MG/ML (IVP) Vial IV.PUSH PRN (15:09)
[2018-04-14] MEDS: fentaNYL Citrate Inj 100 MCG/2 ML Ampul IV.PUSH PRN ×5 (15:09→23:47)
[2018-04-14] MEDS: Potassium Chlor 20 mEq Premix 20 MEQ/100 ML PIGGYBACK IV.SIG PRN ×2 (15:11→17:58)
[2018-04-14] MEDS: Calcium Chloride Inj 1 GM in Sodium Chlor 0.9% Inj 100 ML IV.SIG PRN ×2 (15:11→18:24)
[2018-04-14] MEDS: Albumin Human 5% Inj 250 ML IV.SIG PRN (16:43)
--- NOTE | 2018-04-14 17:17 | P.CONCC ---
History of Present Illness Service: Critical care medicine Consult date: 04/14/18 Requesting Physician: Yanira Carlin Reason for Consult: hemodynamic management Primary Care Provider: Eusebio Chacko MD Chief Complaint: Abdominal Pain History of Present Illness: This is a 67-year-old male with a history of diabetes, GERD, and prior gastric bypass. He was originally admitted on 03/19 for nausea and flank pain and was found to have acute cholecystitis requiring percutaneous cholecystostomy tube. During this hospital admission, his course was complicated by non-ST elevation myocardial infarction for which he underwent left heart catheterization which demonstrated 80% mid LAD lesion, 70% left circumflex lesion, 100% RCA occlusion with left to right collaterals. He underwent 1 week of IV antibiotics for Klebsiella and E. coli bacteremia secondary to acute cholecystitis. After completion of IV antibiotics he underwent urgent off-pump CABG x 3 (THOMAS-->LAD, SVG-->OM, SVG-->PDA) with Dr. Carlin. He arrives to the CVICU in stable condition, intubated, arousing from anesthesia. He is on a low-dose phenylephrine to maintain endorgan perfusion. In the first hour he is in the ICU, his chest tubes have minimal output, his urine output is adequate. No additional information is available from patient due to his clinical condition. Review of systems is unobtainable. Review of Systems unobtainable due to endotracheal tube, unobtainable due to mental status PMFSH - History History Provided By: Medical Record - Medical History Medical History: Medical History (Last Reviewed 04/14/18 @ 17:09 by Ravi Mcneill MD) Diabetes GERD (gastroesophageal reflux disease) Hypercholesteremia MDRO (multiple drug resistant organisms) resistance Onset Date: ~03/26/18 - Surgical History Surgical History: Surgical History (Last Reviewed 04/14/18 @ 17:09 by Ravi Mcneill MD) H/O gastric bypass - Family History Family History: Family History (Last Updated 04/14/18 @ 17:09 by Ravi Mcneill MD) Other Family history non-contributory - Social History I have reviewed the patient's Social History: Yes - Tobacco History Second Hand Smoke Exposure: Yes Tobacco Use In Past 30 Days: No Smoking Status: Former smoker - Alcohol History How Often Do You Have a Drink Containing Alcohol: Never - Substance Use History Substance History: No History of Abuse - Travel History Recent Travel in the [place] Within the Last 8 Weeks: No Recent Travel Out of the Country Within the Last 8 Weeks: No - Immunization History Tetanus Immunization: Unsure Hx Influenza Vaccine This Season: No Medications and Allergies Active Medications: Active Medications Acetaminophen (Tylenol) 650 mg PO Q4H PRN PRN Reason: Temp > 100.4 Last Admin: 03/27/18 09:04 Dose: 650 mg Hydrocodone Bitart/Acetaminophen (Calhoun 5/325) 1 tab PO Q3H PRN PRN Reason: PAIN SCALE 1 TO 5 Al Hydroxide/Mg Hydroxide (Milk Of Magnsofia Liq) 30 ml PO Q12H PRN PRN Reason: Mild Constipation Last Admin: 03/25/18 15:47 Dose: 30 ml Albuterol (Duoneb Neb (Prn)) 1 ampul NEB Q2HR NEB PRN PRN Reason: WHEEZING Albuterol (Duoneb Neb (Karla)) 1 ampul NEB Q6HR NEB [facility] Last Admin: 04/14/18 16:57 Dose: 1 ampul Amiodarone HCl (Cordarone) 200 mg PO Q12HR [facility] Aspirin (Aspirin Chew) 81 mg PO DAILY [facility] Last Admin: 04/14/18 12:52 Dose: Not Given Atorvastatin Calcium (Lipitor) 20 mg PO DAILY [facility] Last Admin: 04/14/18 12:53 Dose: Not Given Bisacodyl (Dulcolax Supp) 10 mg RECTAL DAILY PRN PRN Reason: SEVERE CONSITIPATION Last Admin: 04/03/18 14:07 Dose: 10 mg Bisacodyl (Dulcolax Ec) 10 mg PO ONCE ONE Last Admin: 03/30/18 17:35 Dose: 10 mg Calcium Chloride (Calcium Chloride Inj) 0.5 gm IV.PUSH UNSCH PRN PRN Reason: SEE LABEL COMMENTS Chlorhexidine Gluconate (Hibiclens 4% Topical) 1 applicatio TOPICAL DE ALCOHOLIZER [facility] Stop: 04/18/18 13:15 Last Admin: 04/13/18 22:00 Dose: 1 applicatio Clopidogrel Bisulfate (Plavix) 75 mg PO DAILY [facility] Sodium Chloride 77.5 ml/Papaverine HCl 60 mg/Nitroglycerin 100 mcg/Diltiazem HCl 100 mg 0 ml IRRIGATION DE ALCOHOLIZER [facility] Stop: 04/18/18 13:15 Last Admin: 04/14/18 10:20 Dose: 77 bag Sodium Chloride 500 ml/ (Cefazolin Sodium 500 mg) 0 ml IRRIGATION DE ALCOHOLIZER [facility] Stop: 04/18/18 13:17 Last Admin: 04/14/18 10:12 Dose: 500 bag Diltiazem HCl (Cardizem) 30 mg PO QID [facility] Last Admin: 04/14/18 15:00 Dose: Not Given Epinephrine (Racepinephrine 2.25% Neb) 0.5 ml NEB ONCE PRN PRN Reason: STRIDOR Stop: 04/15/18 13:32 Fentanyl Citrate (Fentanyl Inj) 25 mcg IV.PUSH Q1H PRN PRN Reason: BREAKTHROUGH PAIN Last Admin: 04/14/18 16:34 Dose: 25 mcg Sodium Chloride (Ns Inj) 1,000 mls @ 84 mls/hr IV.CONT .[id number] [facility] Last Infusion: 04/14/18 15:46 Dose: Infused Cefazolin Sodium/Dextrose (Ancef 2 Gm Premix Inj) 2 gm in 50 mls @ 100 mls/hr IV.SIG DE ALCOHOLIZER [facility] Stop: 04/18/18 13:59 Last Infusion: 04/14/18 08:41 Dose: Infused Lactated Ringer's (Lr 1000 Ml Inj) 1,000 mls @ 30 mls/hr IV.SIG .Q24H [facility] Stop: 04/15/18 01:44 Last Admin: 04/14/18 10:07 Dose: 30 mls/hr Sodium Chloride (Ns Inj) 500 mls @ 30 mls/hr IV.SIG .Q10H [facility] Last Admin: 04/14/18 05:34 Dose: Not Given Albumin Human (Buminate 5% Inj) 250 mls @ 250 mls/hr IV.SIG UNSCH PRN PRN Reason: SEE LABEL COMMENTS Last Admin: 04/14/18 16:43 Dose: 250 mls/hr Calcium Chloride 1 gm/ Sodium (Chloride) 110 mls @ 100 mls/hr IV.SIG PRN PRN PRN Reason: SEE LABEL COMMENTS Last Infusion: 04/14/18 15:46 Dose: Infused Dexmedetomidine HCl 200 mcg/ (Sodium Chloride) 50 mls @ 5.17 mls/hr IV.CONT TITRATE PRN; Protocol PRN Reason: Per Protocol Last Titration: 04/14/18 15:11 Dose: 0 mcg/kg/hr, 0 mls/hr Insulin Human Regular 100 unit (/ Sodium Chloride) 100 mls @ 3 mls/hr IV.CONT TITRATE PRN; Protocol PRN Reason: See Protocol Last Titration: 04/14/18 15:11 Dose: 0 units/hr, 0 mls/hr Lactated Ringer's (Lr 1000 Ml Inj) 500 mls @ 500 mls/hr IV.SIG .Q1H PRN PRN Reason: SEE LABEL COMMENTS Last Admin: 04/14/18 15:43 Dose: 500 mls/hr Magnesium Sulfate 2 gm/ Sodium (Chloride) 100 mls @ 50 mls/hr IV.SIG PRN PRN PRN Reason: SEE LABEL COMMENTS Magnesium Sulfate 2 gm/ Sodium (Chloride) 100 mls @ 50 mls/hr IV.SIG PRN PRN PRN Reason: SEE LABEL COMMENTS Norepinephrine Bitartrate 4 mg (/ Sodium Chloride) 250 mls @ 7.5 mls/hr IV.SIG TITRATE PRN; Protocol PRN Reason: Per Protocol Phenylephrine HCl 40 mg/ (Sodium Chloride) 500 mls @ 30 mls/hr IV.CONT TITRATE PRN; Protocol PRN Reason: See Protocol Last Titration: 04/14/18 15:46 Dose: 10 mcg/min, 7.5 mls/hr Potassium Chloride (Kcl 20 Meq Premix Inj) 20 meq in 100 mls @ 50 mls/hr IV.SIG PRN PRN PRN Reason: SEE LABEL COMMENTS Last Admin: 04/14/18 15:11 Dose: 50 mls/hr Potassium Chloride (Kcl 20 Meq Premix Inj) 20 meq in 100 mls @ 50 mls/hr IV.SIG PRN PRN PRN Reason: SEE LABEL COMMENTS Potassium Chloride (Kcl 20 Meq Premix Inj) 20 meq in 100 mls @ 50 mls/hr IV.SIG PRN PRN PRN Reason: SEE LABEL COMMENTS Cefazolin Sodium/Dextrose (Ancef 2 Gm Premix Inj) 2 gm in 50 mls @ 100 mls/hr IV.SIG Q8H [facility] Stop: 04/16/18 00:29 Acetaminophen (Ofirmev Inj) 1,000 mg in 100 mls @ 400 mls/hr IV.SIG Q6H [facility] Stop: 04/15/18 10:44 Last Admin: 04/14/18 16:33 Dose: 400 mls/hr Insulin Detemir (Levemir Inj) 5 unit SQ BID [facility] Last Admin: 04/14/18 12:53 Dose: Not Given Ketorolac Tromethamine (Toradol Inj) 15 mg IV.PUSH Q6H PRN PRN Reason: SEE LABEL COMMENTS Stop: 04/16/18 13:32 Last Admin: 04/14/18 15:09 Dose: 15 mg Lactulose (Lactulose Liq) 30 ml PO DAILY PRN PRN Reason: SEVERE CONSITIPATION Last Admin: 03/25/18 15:47 Dose: 30 ml Magnesium Oxide (Mag-Ox) 400 mg PO BID [facility] Last Admin: 04/14/18 12:53 Dose: Not Given Meperidine HCl (Demerol Inj) 12.5 mg IV.PUSH Q4H PRN PRN Reason: SHIVERING Metformin HCl (Glucophage) 1,000 mg PO BID [facility] Last Admin: 04/14/18 12:53 Dose: Not Given Metoprolol Tartrate (Lopressor) 12.5 mg PO DE ALCOHOLIZER [facility] Stop: 04/18/18 13:17 Last Admin: 04/14/18 05:01 Dose: 12.5 mg Metoprolol Tartrate (Lopressor Inj) 2.5 mg IV.PUSH Q1H PRN PRN Reason: SEE LABEL COMMENTS Morphine Sulfate (Morphine Inj) 1 mg IV.PUSH Q10M PRN PRN Reason: PAIN SCALE 1 TO 5 Ondansetron HCl (Zofran Inj) 4 mg IV.PUSH Q6H PRN PRN Reason: NAUSEA OR VOMITING Last Admin: 04/14/18 16:33 Dose: 4 mg Pantoprazole Sodium (Protonix) 40 mg PO DAILY [facility] Last Admin: 04/14/18 12:54 Dose: Not Given Phenylephrine HCl (Neosynephrine Inj) 0.1 mg IV.PUSH UNSCH PRN PRN Reason: SEE LABEL COMMENTS Potassium Chloride (K-Dur) 20 meq PO DAILY [facility] Last Admin: 04/14/18 12:53 Dose: Not Given Potassium Chloride (K-Dur) 40 meq PO UNSCH PRN PRN Reason: SEE LABEL COMMENTS Prochlorperazine Edisylate (Compazine Inj) 10 mg IV.PUSH Q6H PRN PRN Reason: NAUSEA Last Admin: 04/13/18 09:26 Dose: 10 mg Senna/Docusate Sodium (Carlotta-Colace) 1 tab PO BID [facility] Last Admin: 04/14/18 12:54 Dose: Not Given Sennosides (Senokot) 17.2 mg PO Q12H PRN PRN Reason: Moderate Constipation Last Admin: 03/30/18 05:24 Dose: 17.2 mg Sodium Bicarbonate (Sodium Bicarbonate 8.4% Inj) 50 meq IV.PUSH UNSCH PRN PRN Reason: SEE LABEL COMMENTS Sodium Bicarbonate (Sodium Bicarbonate 8.4% Inj) 100 meq IV.PUSH UNSCH PRN PRN Reason: SEE LABEL COMMENTS Sodium Chloride (Ns Flush) 2 ml IV.FLUSH BID [facility] Last Admin: 04/14/18 12:53 Dose: Not Given Sodium Chloride (Ns Flush) 2 ml IV.FLUSH PRN PRN PRN Reason: FLUSH AFTER USING IV ACCESS Last Admin: 03/26/18 02:04 Dose: 2 ml Sodium Chloride (Ns Flush) 2 ml IV.FLUSH BID [facility] Last Admin: 04/14/18 12:53 Dose: Not Given Sodium Chloride (Ns Flush) 2 ml IV.FLUSH PRN PRN PRN Reason: FLUSH AFTER USING IV ACCESS Terbutaline Sulfate (Brethine Inj) 1 mg SQ ONCE PRN PRN Reason: Extravasation Terbutaline Sulfate (Brethine Inj) 1 mg SQ UNSCH PRN PRN Reason: For Extravasation Allergies Allergy/AdvReac Type Severity Reaction Status Date / Time No Known Allergies Allergy Verified 03/19/18 10:28 Home Medications Medication Instructions Recorded Confirmed Type atorvastatin 20 mg PO DAILY 03/19/18 03/19/18 History liraglutide [Victoza 2-Sonido] 0.6 mg SUBCUT DAILY 03/19/18 03/19/18 History metformin 1,000 mg PO BID 03/19/18 03/19/18 History omeprazole-sodium bicarbonate 1 cap PO DAILY 03/19/18 03/19/18 History pantoprazole 20 mg PO DAILY 03/19/18 03/19/18 History Physical Exam Vital signs: Vital Signs 04/13/18 18:00 04/13/18 19:00 04/13/18 20:00 Temperature 36.8 C Pulse Rate 74 71 70 Respiratory Rate 22 Blood Pressure 129/77 Pulse Oximetry 92 L 98 04/13/18 21:00 04/13/18 22:00 04/13/18 23:00 Temperature 36.7 C Pulse Rate 64 68 72 Respiratory Rate 18 Blood Pressure 116/69 Pulse Oximetry 96 04/14/18 00:00 04/14/18 01:00 04/14/18 02:00 Temperature Pulse Rate 72 69 70 Respiratory Rate Blood Pressure Pulse Oximetry 04/14/18 03:00 04/14/18 04:00 04/14/18 05:00 Temperature 36.8 C Pulse Rate 71 68 65 Respiratory Rate 16 Blood Pressure 113/70 Pulse Oximetry 95 04/14/18 06:00 04/14/18 14:10 04/14/18 14:20 Temperature 36.4 C L Pulse Rate 61 71 Respiratory Rate 12 12 Blood Pressure 102/65 Pulse Oximetry 95 97 04/14/18 15:10 04/14/18 16:59 04/14/18 17:00 Temperature Pulse Rate 88 Respiratory Rate 18 Blood Pressure Pulse Oximetry 96 98 Intake & Output 04/13/18 04/14/18 04/14/18 18:59 06:59 18:59 Intake Total 1620 / 1620 240 / 240 4810 / 4810 Output Total 875 / 875 1000 / 1000 2950 / 2950 Balance 745 / 745 -760 / -760 1860 / 1860 Weight 103.5 kg Intake: IV 900 / 900 710 / 710 NS Inj 1,000 ML @ 84 mls/hr IV. 900 / 900 0 / 0 CONT .[id number] [facility] Rx#:[id number] Calcium Chloride Inj 1 GM In NS 110 / 110 Inj 100 ML @ 100 mls/hr IV.SIG PRN PRN Rx#:[id number] LR 1000 mL Inj 500 ML @ 500 mls 500 / 500 /hr IV.SIG .Q1H PRN Rx#: [id number] Ancef 1 GM Premix Inj 1 gm In 50 / 50 50 ml @ 0 mls/hr IV.SIG .STK- [facility] Rx#:[id number] Ancef 2 GM Premix Inj 2 gm In 50 / 50 50 ml @ 100 mls/hr IV.SIG DE ALCOHOLIZER [facility] Rx#:[id number] Oral 720 / 720 240 / 240 Anesthesia Amount 3000 / 3000 Autotransfusion Amount 600 / 600 Cell Saver Amount 500 / 500 Output: Urine 175 / 175 Estimated Blood Loss 1500 / 1500 Urine Amount (Catheter) 700 / 700 1000 / 1000 1450 / 1450 3-way Urethral 700 / 700 1000 / 1000 1450 / 1450 Gastric Drainage 0 / 0 Right Lower Quadrant 0 / 0 Other: Date of Last Bowel Movement 04/12/18 04/11/18 Narrative: GENERAL: Middle-age male, lying in bed, intubated, sedated but arousing from anesthesia HEENT: Normocephalic. Atraumatic. Pupils equal, round, reactive, conjugate. Mucous membranes are moist NECK: Trachea is midline. There is no JVD. Right IJ introducer sheath in place , site clean dry and intact. CHEST: Midline sternal dressing with wound VAC dressing in place, site is clean dry and intact. 2 chest tubes exit subxiphoid with a minimal amount of sanguinous output. Equal chest rise. PRVC mode of ventilation. FiO2 40% PEEP 5. CARDIOVASCULAR: Normal rate, regular rhythm. Sinus. Phenylephrine 10 mcg/min. ABDOMEN: Soft, nontender, nondistended. No guarding. There is a dressing where prior right upper quadrant cholecystostomy tube was. There is no drainage from the site. MUSCULOSKELETAL: Pulses 2+. No peripheral edema. Lower extremity wrapped in Raf dressing. NEUROLOGICAL: RASS -2. Arouses and moves all extremities spontaneously. Arousing from anesthesia. No focal deficits. Does not follow commands. - Urinary Catheter Management 3-way Urethral Cath placed during this visit: yes Reason for continuing: Hourly intake/output Insertion date: 04/13/18 Insertion time: 00:00 Assessment and Plan - Assessment and Plan Plan: Assessment: 67-year-old male with history of prior gastric bypass who is acute clinical course has been complicated by acute cholecystitis and Klebsiella, E. coli bacteremia requiring a week of IV antibiotics, now complicated by acute non -ST elevation myocardial infarction and today underwent urgent off-pump CABG x 3 (THOMAS-->LAD, SVG-->OM, SVG-->PDA). off-pump CABG x 3 (THOMAS-->LAD, SVG-->OM, SVG-->PDA) 04/14 NSTEMI CAD - watch chest tube output closely - close uop monitoring - wean phenylephrine for goal map > 65 mmHg - EF 60-65%, trace to mild MR on KELLY this admission - continue lipitor - restart ASA tomorrow Perioperative hypotension - wean phenylephrine for goal map > 65 mmHg - likely secondary to transient myocardial dysfunction. Perioperative mechanical ventilation - if chest tubes remain dry and hemodynamics stabilize, would plan to wean to extubate on pathway - wean fio2 for goal spo2 > 90% - nebs - hob elevated - aggressive pulmonary toilet - OOB with PT POD 1. Afib - now in SR on telemetry - perioperative amiodarone prophylaxis - betablockade starting POD 1 S/P Sepsis/ Acute cholecystitis E. coli and Klebsiella pneumonia on blood cultures - repeat blood cultures negative x 5 days -03/19. S/p cholecystostomy tube drain- not a candidate for cholecystectomy at this time due to CAD and need for heart surgery. - - drain d/c 04/13. - S/P Completed ceftriaxone 04/03. -LFTs trending down S/P cystoscopy- 04/11 Hematuria - resolved -voiding well- gross clear urine - Urology ff- 3 way scales placed 04/13 - in anticipation of CABG DM II - insulin drip perioperatively - can transition back to levemir with SSI tomorrow. DVT prophylaxis with B-SCD PPI- hx of GERD CCM will continue to follow along while patient remains in the CVICU.
[2018-04-14] MEDS: ceFAZolin 2 GM Premix Inj 2 GM/50 ML PIGGYBACK IV.SIG SCH (18:24)
[2018-04-14] MEDS: Amiodarone 200 MG Tablet PO SCH (23:43)
[2018-04-15] MEDS: Albumin Human 5% Inj 250 ML IV.SIG PRN (01:40)
[2018-04-15] MEDS: fentaNYL Citrate Inj 100 MCG/2 ML Ampul IV.PUSH PRN ×8 (01:40→22:40)
[2018-04-15] MEDS: Magnesium Oxide 400 MG Tablet PO SCH ×3 (04:22→22:41)
[2018-04-15 05:29] LABS: Hematocrit 27.3 % (39.0-51.0); Hemoglobin 9.2 gm/dL (13.0-17.0); Mean Corpuscular HGB Conc 33.6 % (32.0-36.0); Mean Corpuscular Hemoglobin 29.6 pg (27.0-34.0); Mean Corpuscular Volume 88.1 fL (80.0-100.0); Mean Platelet Volume 8.8 fL (7.0-11.0); Platelet Count 310 th/mm3 (150-450); Red Cell Distribution Width 15.8 % (11.6-17.2); White Blood Count 16.3 th/mm3 (4.0-11.0)
[2018-04-15 05:53] LABS: Anion Gap 5 meq/L (5-15); Blood Urea Nitrogen 10 mg/dL (7-18); Carbon Dioxide 25.6 meq/L (21.0-32.0); Chloride 105 meq/L (98-107); Glomerular Filtration Rate Greater Than 89 mL/min (>89); Glucose,Random 92 mg/dL (74-106); Magnesium 1.7 mg/dL (1.5-2.5); Potassium 4.3 meq/L (3.5-5.1); Sodium 136 meq/L (136-145)
--- NOTE | 2018-04-15 06:16 | XR ---
EXAM DATE: 04/15/2018 5:26 AM EST AGE/SEX: 67 years / Male INDICATIONS: shortness of breath, possible pulmonary disease. CLINICAL DATA: This is the patient's subsequent encounter. Patient reports that signs and symptoms h ave been present for 1 week and indicates a pain score of 7/10. MEDICAL/SURGICAL HISTORY: Myocardial infarction. Gastroesophageal reflux disease. Diabetes. C ABG. Gastric bypass. COMPARISON: [facility] [place], CHEST 1V SINGLE AP, 04/14/2018. . FINDINGS: Portable AP view of the chest demonstrates cardiac silhouette size at the upper limits for normal in this patient post median sternotomy. Right IJ line, mediastinal drain, and left chest tube remain pre sent while the endotracheal tube and nasogastric tube have been removed. Lungs are underinflated and there is mild airspace opacity at the right lung base and a stable small left pleural-parenchymal opa city remains at the left lung base. No pneumothorax is identified. CONCLUSION: 1. Stable small left pleural effusion with associated volume loss and/or airspace consolidation. The re is also stable mild atelectasis or consolidation at the right lung base. 2. Left chest tube remains present and no pneumothorax is visualized. Electronically signed by: Elías Cavazos MD 04/15/2018 6:14 AM EST
[2018-04-15] MEDS: ceFAZolin 2 GM Premix Inj 2 GM/50 ML PIGGYBACK IV.SIG SCH ×4 (08:02→23:06)
--- NOTE | 2018-04-15 08:36 | P.PNCV ---
- Note Subjective/Hospital Course: 67-year-old male who presented to [facility] 03/19/18 due to nausea, vomiting and abdominal pain. He states that he was awakened at 6 a.m. with left -sided flank pain and left mid back pain radiating to the left lower quadrant. He developed nausea and vomiting secondary to the pain. he was incidentally found to have cholecystitis, perc burt tube was placed , Trop was + underwent cardiac cath by Dr Pérez : mid LAD 80%, Left Circ 70 % lesion, RCA 100% occluded in the mid portion with [id number] and right-to- right collaterals supplying the distal portion. Blood cultures grew klebsiella pneumoniae and E coli , followed by ID and recommended to at least complete one week course of IV antibiotics prior to surgery PAST MEDICAL HISTORY: Diabetes, GERD, Hyperlipidemia, morbid obesity with BMI 40, History of gastric bypass. 03/27 pt is pain free at this time , has perc burt drain US of lower ext neg for DVT, Carotid US no stenosis continues on IV antibiotics per ID : VIVIENNE cefepime IV Ceftriaxone IV once a day (stop date: 04/03/2018) after which we will repeat BCX on 04/04/18. If these repeat bcx are negative at 48 hrs and patient clinically doing well will clear him from CABG. VIVIENNE Flagyl consult PT 03/28 pain free will follow / schedule for surgery next week when cleared by ID 03/29 still has some mild right flank pain burt drain in place no chest pain 04/03 c/o of nausea and vomiting since last night , also some abdominal pain for repeat CT abdomen today also repeat Blood cultures pending 04/05 still complaining of nausea and vomiting burt drain in place 04/10 events noted over weekend blood culture neg 04/03 , off all antibiotics still has burt drain , nursing flushing periodically per Uro / will perform bedside cystoscopy at bedside this week / urine has cleared since Heparin vivienne General surgery / will see after 3-4 weeks after CABG to al for cholecystectomy will discuss timing for surgery with Dr Carlin no further complaints of nausea / vomiting 04/11 resting comfortably await bedside cystoscopy/ and clearance from urology then plan for timing of CABG, needs to be placed back on ASA 04/12 cleared by Urology for surgery " s/p bedside [place] cystoscopy did not show any abnormalities within the bladder there were no bladder tumors identified. Retroflex examination of the bladder neck showed an area of friability at the prostate which was most likely the area that was bleeding at the time. per Urology: recommend placement of 3 way scales prior to surgery pt ambulating with walker, no nausea scheduled for surgery on tuesday will need 3 way cath placed by urology on 04/[address] catheter placed by Urology stable for surgery in am 04/14 SURGICAL PROCEDURE 1. Urgent Off-pump Coronary Artery Bypass Grafting x 3 with Left Internal Mammary Artery (THOMAS) to Left Anterior Descending (LAD), reverse saphenous vein graft to obtuse Marginal branch of the left Circumflex artery, reverse saphenous vein graft to the posterior Descending branch of the right Coronary artery 2. Left leg Endoscopic Vein [place] 3. Ultrasound-guided dissection of the LAD 4. Intraoperative Vein Mapping. 04/15 Doing well clinically Weaning Jarvis-Synephrine drip as tolerated Awaiting LFT results Maintain in ICU Continue chest tube to drainage Objective: Vital Signs - 24 hr 04/14/18 14:10 04/14/18 14:20 04/14/18 15:10 Temperature 97.5 F L Pulse Rate 71 Respiratory Rate 12 12 Blood Pressure 102/65 Pulse Oximetry 95 97 96 04/14/18 16:40 04/14/18 16:59 04/14/18 17:00 Temperature 97.6 F Pulse Rate 88 Respiratory Rate 16 Blood Pressure Pulse Oximetry 98 04/14/18 17:05 04/14/18 17:30 04/14/18 19:00 Temperature 97.7 F Pulse Rate 87 88 Respiratory Rate 15 16 Blood Pressure 98/60 L 104/64 Pulse Oximetry 99 99 97 04/14/18 21:00 04/14/18 21:15 04/14/18 21:25 Temperature 97.8 F Pulse Rate 91 H Respiratory Rate 16 18 Blood Pressure Pulse Oximetry 98 04/14/18 22:12 04/14/18 23:00 04/15/18 00:20 Temperature 97.5 F L Pulse Rate 102 H Respiratory Rate 18 12 18 Blood Pressure 100/58 L Pulse Oximetry 98 04/15/18 00:25 04/15/18 02:10 04/15/18 03:00 Temperature 97.5 F L Pulse Rate 97 H Respiratory Rate 16 16 12 Blood Pressure 93/54 L Pulse Oximetry 95 04/15/18 04:45 04/15/18 05:00 04/15/18 05:32 Temperature Pulse Rate 89 Respiratory Rate 18 18 18 Blood Pressure Pulse Oximetry Labs: Laboratory Results - last 12 hr 04/14/18 04/14/18 04/14/18 20:32 21:37 22:13 WBC RBC Hgb Hct MCV MCH MCHC RDW Plt Count MPV Sodium Potassium Chloride Carbon Dioxide Anion Gap BUN Creatinine Estimated GFR POC Glucose 96 101 108 Random Glucose Calcium Magnesium 04/14/18 04/15/18 04/15/18 23:38 00:06 01:17 WBC RBC Hgb Hct MCV MCH MCHC RDW Plt Count MPV Sodium Potassium Chloride Carbon Dioxide Anion Gap BUN Creatinine Estimated GFR POC Glucose 137 H 126 H 95 Random Glucose Calcium Magnesium 04/15/18 04/15/18 04/15/18 02:17 04:03 04:30 WBC 16.3 H RBC 3.10 L Hgb 9.2 L Hct 27.3 L MCV 88.1 MCH 29.6 MCHC 33.6 RDW 15.8 Plt Count 310 MPV 8.8 Sodium Potassium Chloride Carbon Dioxide Anion Gap BUN Creatinine Estimated GFR POC Glucose 83 114 H Random Glucose Calcium Magnesium 04/15/18 04/15/18 04/15/18 04:30 05:19 06:39 WBC RBC Hgb Hct MCV MCH MCHC RDW Plt Count MPV Sodium 136 Potassium 4.3 Chloride 105 Carbon Dioxide 25.6 Anion Gap 5 BUN 10 Creatinine 0.66 Estimated GFR Greater than 89 POC Glucose 86 98 Random Glucose 92 Calcium 8.0 L Magnesium 1.7 Result Diagrams: 04/15/18 04:30 04/15/18 04:30 - Plan (1) Coronary artery disease involving [place] coronary artery Plan: scheduled for CABG on tuesday OOB/ PT (3) Afib Plan: in NSR (4) Cholecystitis Plan: s/p perc drain general surgery will see outpt 4-6 weeks after surgery to eval for lap burt
[2018-04-15 09:34] LABS: Albumin 2.2 g/dL (3.4-5.0)
[2018-04-15 09:36] LABS: Total Protein 5.4 g/dL (6.4-8.2)
[2018-04-15] MEDS ORDERED: Midazolam Inj 5 MG/ML 1 ML Vial ONE (10:12)
[2018-04-15] MEDS: Phenylephrine Inj 40 MG in Sodium Chlor 0.9% Inj 496 ML IV.CONT PRN (10:29)
[2018-04-15] MEDS: dilTIAZem 30 MG Tablet PO SCH ×2 (10:52→13:21)
[2018-04-15] MEDS: Amiodarone 200 MG Tablet PO SCH ×2 (11:03→22:20)
[2018-04-15] MEDS: Senna/Docusate Sodium 8.6/50 MG Tablet PO SCH ×2 (11:06→22:20)
[2018-04-15] MEDS: Insulin Detemir Inj 1,000 UNIT/10 ML Vial SQ SCH ×2 (13:28→22:20)
--- NOTE | 2018-04-15 14:07 | ECG ---
Date Performed: 04/15/2018 Time Performed: 03:49:02 PTAGE: 67 years EKG: Sinus rhythm with PVC(s) Inferior infarct - age undetermined Abnormal ECG PREVIOUS TRACING : 03/20/2018 22.07 Compared to previous tracing, sinus rhythm replaces atrial fibrillation DOCTOR: Declan Jerez Interpretating Date/Time 04/15/2018 14:05:48
--- NOTE | 2018-04-15 14:43 | P.PNCA ---
Subjective Interval history: No events overnight Extubated On Neosynephrine 50mcg/min Medications and Allergies Active Medications: Active Medications Acetaminophen (Tylenol) 650 mg PO Q4H PRN PRN Reason: Temp > 100.4 Last Admin: 03/27/18 09:04 Dose: 650 mg Hydrocodone Bitart/Acetaminophen ([place] 5/325) 1 tab PO Q3H PRN PRN Reason: PAIN SCALE 1 TO 5 Al Hydroxide/Mg Hydroxide (Milk Of Magnesia Liq) 30 ml PO Q12H PRN PRN Reason: Mild Constipation Last Admin: 03/25/18 15:47 Dose: 30 ml Albuterol (Duoneb Neb (Prn)) 1 ampul NEB Q2HR NEB PRN PRN Reason: WHEEZING Albuterol (Duoneb Neb (Karla)) 1 ampul NEB Q6HR NEB [facility] Last Admin: 04/15/18 09:44 Dose: 1 ampul Amiodarone HCl (Cordarone) 200 mg PO Q12HR [facility] Last Admin: 04/15/18 11:03 Dose: 200 mg Aspirin (Aspirin Chew) 81 mg PO DAILY [facility] Last Admin: 04/15/18 11:06 Dose: 81 mg Atorvastatin Calcium (Lipitor) 20 mg PO DAILY [facility] Last Admin: 04/15/18 11:03 Dose: 20 mg Bisacodyl (Dulcolax Supp) 10 mg RECTAL DAILY PRN PRN Reason: SEVERE CONSITIPATION Last Admin: 04/03/18 14:07 Dose: 10 mg Bisacodyl (Dulcolax Ec) 10 mg PO ONCE ONE Last Admin: 03/30/18 17:35 Dose: 10 mg Calcium Chloride (Calcium Chloride Inj) 0.5 gm IV.PUSH UNSCH PRN PRN Reason: SEE LABEL COMMENTS Chlorhexidine Gluconate (Hibiclens 4% Topical) 1 applicatio TOPICAL TRANSLATOR AND INTERPRETER [facility] Stop: 04/18/18 13:15 Last Admin: 04/13/18 22:00 Dose: 1 applicatio Clopidogrel Bisulfate (Plavix) 75 mg PO DAILY [facility] Last Admin: 04/15/18 11:03 Dose: 75 mg Sodium Chloride 77.5 ml/Papaverine HCl 60 mg/Nitroglycerin 100 mcg/Diltiazem HCl 100 mg 0 ml IRRIGATION TRANSLATOR AND INTERPRETER [facility] Stop: 04/18/18 13:15 Last Admin: 04/14/18 10:20 Dose: 77 bag Sodium Chloride 500 ml/ (Cefazolin Sodium 500 mg) 0 ml IRRIGATION TRANSLATOR AND INTERPRETER [facility] Stop: 04/18/18 13:17 Last Admin: 04/14/18 10:12 Dose: 500 bag Dextrose (D50w Vial) 50 ml IV.PUSH UNSCH PRN PRN Reason: PER HYPOGLYCEMIA PROTOCOL Diltiazem HCl (Cardizem) 30 mg PO QID [facility] Last Admin: 04/15/18 13:21 Dose: Not Given Fentanyl Citrate (Fentanyl Inj) 25 mcg IV.PUSH Q1H PRN PRN Reason: BREAKTHROUGH PAIN Last Admin: 04/15/18 10:30 Dose: 25 mcg Glucagon (Glucagon Inj) 1 mg OTHER PRN PRN PRN Reason: for Hypoglycemia Protocol Sodium Chloride (Ns Inj) 1,000 mls @ 84 mls/hr IV.CONT .[id number] [facility] Last Admin: 04/14/18 19:41 Dose: Not Given Cefazolin Sodium/Dextrose (Ancef 2 Gm Premix Inj) 2 gm in 50 mls @ 100 mls/hr IV.SIG TRANSLATOR AND INTERPRETER [facility] Stop: 04/18/18 13:59 Last Infusion: 04/14/18 08:41 Dose: Infused Sodium Chloride (Ns Inj) 500 mls @ 30 mls/hr IV.SIG .Q10H [facility] Last Admin: 04/14/18 05:34 Dose: Not Given Calcium Chloride 1 gm/ Sodium (Chloride) 110 mls @ 100 mls/hr IV.SIG PRN PRN PRN Reason: SEE LABEL COMMENTS Last Infusion: 04/14/18 19:30 Dose: Infused Dexmedetomidine HCl 200 mcg/ (Sodium Chloride) 50 mls @ 5.17 mls/hr IV.CONT TITRATE PRN; Protocol PRN Reason: Per Protocol Last Titration: 04/14/18 18:42 Dose: 0 mcg/kg/hr, 0 mls/hr Lactated Ringer's (Lr 1000 Ml Inj) 500 mls @ 500 mls/hr IV.SIG .Q1H PRN PRN Reason: SEE LABEL COMMENTS Last Infusion: 04/14/18 18:42 Dose: Infused Magnesium Sulfate 2 gm/ Sodium (Chloride) 100 mls @ 50 mls/hr IV.SIG PRN PRN PRN Reason: SEE LABEL COMMENTS Last Admin: 04/15/18 10:29 Dose: 50 mls/hr Magnesium Sulfate 2 gm/ Sodium (Chloride) 100 mls @ 50 mls/hr IV.SIG PRN PRN PRN Reason: SEE LABEL COMMENTS Norepinephrine Bitartrate 4 mg (/ Sodium Chloride) 250 mls @ 7.5 mls/hr IV.SIG TITRATE PRN; Protocol PRN Reason: Per Protocol Phenylephrine HCl 40 mg/ (Sodium Chloride) 500 mls @ 30 mls/hr IV.CONT TITRATE PRN; Protocol PRN Reason: See Protocol Last Admin: 04/15/18 10:29 Dose: 50 mcg/min, 37.5 mls/hr Potassium Chloride (Kcl 20 Meq Premix Inj) 20 meq in 100 mls @ 50 mls/hr IV.SIG PRN PRN PRN Reason: SEE LABEL COMMENTS Last Infusion: 04/14/18 19:58 Dose: Infused Potassium Chloride (Kcl 20 Meq Premix Inj) 20 meq in 100 mls @ 50 mls/hr IV.SIG PRN PRN PRN Reason: SEE LABEL COMMENTS Potassium Chloride (Kcl 20 Meq Premix Inj) 20 meq in 100 mls @ 50 mls/hr IV.SIG PRN PRN PRN Reason: SEE LABEL COMMENTS Cefazolin Sodium/Dextrose (Ancef 2 Gm Premix Inj) 2 gm in 50 mls @ 100 mls/hr IV.SIG Q8H [facility] Stop: 04/16/18 00:29 Last Infusion: 04/15/18 11:00 Dose: Infused Insulin Aspart (Novolog Insulin Correctional Sugar Inj) 0 unit SQ 02,06,10,14, 18,22 [facility]; Protocol Insulin Detemir (Levemir Inj) 5 unit SQ BID [facility] Last Admin: 04/15/18 13:28 Dose: 5 unit Ketorolac Tromethamine (Toradol Inj) 15 mg IV.PUSH Q6H PRN PRN Reason: SEE LABEL COMMENTS Stop: 04/16/18 13:32 Last Admin: 04/14/18 15:09 Dose: 15 mg Lactulose (Lactulose Liq) 30 ml PO DAILY PRN PRN Reason: SEVERE CONSITIPATION Last Admin: 03/25/18 15:47 Dose: 30 ml Magnesium Oxide (Mag-Ox) 400 mg PO BID [facility] Last Admin: 04/15/18 10:56 Dose: Not Given Meperidine HCl (Demerol Inj) 12.5 mg IV.PUSH Q4H PRN PRN Reason: SHIVERING Metformin HCl (Glucophage) 1,000 mg PO BID [facility] Last Admin: 04/15/18 13:19 Dose: Not Given Metoprolol Tartrate (Lopressor) 12.5 mg PO TRANSLATOR AND INTERPRETER [facility] Stop: 04/18/18 13:17 Last Admin: 04/14/18 05:01 Dose: 12.5 mg Metoprolol Tartrate (Lopressor Inj) 2.5 mg IV.PUSH Q1H PRN PRN Reason: SEE LABEL COMMENTS Morphine Sulfate (Morphine Inj) 1 mg IV.PUSH Q10M PRN PRN Reason: PAIN SCALE 1 TO 5 Ondansetron HCl (Zofran Inj) 4 mg IV.PUSH Q6H PRN PRN Reason: NAUSEA OR VOMITING Last Admin: 04/14/18 16:33 Dose: 4 mg Pantoprazole Sodium (Protonix) 40 mg PO DAILY [facility] Last Admin: 04/15/18 11:03 Dose: 40 mg Phenylephrine HCl (Neosynephrine Inj) 0.1 mg IV.PUSH UNSCH PRN PRN Reason: SEE LABEL COMMENTS Potassium Chloride (K-Dur) 20 meq PO DAILY [facility] Last Admin: 04/15/18 10:56 Dose: Not Given Potassium Chloride (K-Dur) 40 meq PO UNSCH PRN PRN Reason: SEE LABEL COMMENTS Prochlorperazine Edisylate (Compazine Inj) 10 mg IV.PUSH Q6H PRN PRN Reason: NAUSEA Last Admin: 04/13/18 09:26 Dose: 10 mg Senna/Docusate Sodium (Carlotta-Colace) 1 tab PO BID [facility] Last Admin: 04/15/18 11:06 Dose: Not Given Sennosides (Senokot) 17.2 mg PO Q12H PRN PRN Reason: Moderate Constipation Last Admin: 03/30/18 05:24 Dose: 17.2 mg Sodium Bicarbonate (Sodium Bicarbonate 8.4% Inj) 50 meq IV.PUSH UNSCH PRN PRN Reason: SEE LABEL COMMENTS Sodium Bicarbonate (Sodium Bicarbonate 8.4% Inj) 100 meq IV.PUSH UNSCH PRN PRN Reason: SEE LABEL COMMENTS Sodium Chloride (Ns Flush) 2 ml IV.FLUSH BID [facility] Last Admin: 04/15/18 11:03 Dose: 2 ml Sodium Chloride (Ns Flush) 2 ml IV.FLUSH PRN PRN PRN Reason: FLUSH AFTER USING IV ACCESS Terbutaline Sulfate (Brethine Inj) 1 mg SQ ONCE PRN PRN Reason: Extravasation Terbutaline Sulfate (Brethine Inj) 1 mg SQ UNSCH PRN PRN Reason: For Extravasation Allergies Allergy/AdvReac Type Severity Reaction Status Date / Time No Known Allergies Allergy Verified 03/19/18 10:28 Home Medications Medication Instructions Recorded Confirmed Type atorvastatin 20 mg PO DAILY 03/19/18 03/19/18 History liraglutide [Victoza 2-Sonido] 0.6 mg SUBCUT DAILY 03/19/18 03/19/18 History metformin 1,000 mg PO BID 03/19/18 03/19/18 History omeprazole-sodium bicarbonate 1 cap PO DAILY 03/19/18 03/19/18 History pantoprazole 20 mg PO DAILY 03/19/18 03/19/18 History Physical Exam Vital signs: Vital Signs 04/14/18 15:10 04/14/18 16:40 04/14/18 16:59 Temperature 97.6 F Pulse Rate Respiratory Rate Blood Pressure Pulse Oximetry 96 98 04/14/18 17:00 04/14/18 17:05 04/14/18 17:30 Temperature Pulse Rate 88 87 Respiratory Rate 16 15 Blood Pressure 98/60 L Pulse Oximetry 99 99 04/14/18 19:00 04/14/18 21:00 04/14/18 21:15 Temperature 97.7 F 97.8 F Pulse Rate 88 Respiratory Rate 16 16 Blood Pressure 104/64 Pulse Oximetry 97 04/14/18 21:25 04/14/18 22:12 04/14/18 23:00 Temperature 97.5 F L Pulse Rate 91 H 102 H Respiratory Rate 18 18 12 Blood Pressure 100/58 L Pulse Oximetry 98 98 04/15/18 00:20 04/15/18 00:25 04/15/18 02:10 Temperature Pulse Rate Respiratory Rate 18 16 16 Blood Pressure Pulse Oximetry 04/15/18 03:00 04/15/18 04:45 04/15/18 05:00 Temperature 97.5 F L Pulse Rate 97 H Respiratory Rate 12 18 18 Blood Pressure 93/54 L Pulse Oximetry 95 04/15/18 05:32 04/15/18 07:00 04/15/18 09:44 Temperature 98.4 F Pulse Rate 89 92 H 91 H Respiratory Rate 18 18 17 Blood Pressure 97/55 L Pulse Oximetry 96 97 04/15/18 11:00 Temperature 98.3 F Pulse Rate 91 H Respiratory Rate 20 Blood Pressure 113/64 Pulse Oximetry 99 Intake & Output 04/14/18 04/15/18 04/15/18 18:59 06:59 18:59 Intake Total 6800 / 6800 700 / 700 590 / 590 Output Total 3580 / 3580 400 / 400 540 / 540 Balance 3220 / 3220 300 / 300 50 / 50 Weight 113 kg Intake: IV 1800 / 1800 460 / 460 590 / 590 Precedex Inj 200 MCG In NS Inj 15 / 15 48 ML @ 0.2 MCG/KG/HR 5.17 mls/ hr IV.CONT TITRATE PRN Rx#: [id number] NovoLIN R (IV Infusion) 100 15 / 15 UNIT In NS Inj 99 ML @ 3 UNITS/ HR 3 mls/hr IV.CONT TITRATE PRN Rx#:[id number] Neosynephrine Inj 40 MG In NS 60 / 60 440 / 440 Inj 496 ML @ 40 MCG/MIN 30 mls/ hr IV.CONT TITRATE PRN Rx#: [id number] NS Inj 1,000 ML @ 84 mls/hr IV. 0 / 0 CONT .[id number] KARLA Rx#:[id number] Ofirmev Inj 1,000 mg In 100 ml 100 / 100 200 / 200 100 / 100 @ 400 mls/hr IV.SIG Q6H KARLA Rx# :[id number] Buminate 5% Inj 250 ML @ 250 250 / 250 mls/hr IV.SIG UNSCH PRN Rx#: [id number] Calcium Chloride Inj 1 GM In NS 110 / 110 110 / 110 Inj 100 ML @ 100 mls/hr IV.SIG PRN PRN Rx#:[id number] LR 1000 mL Inj 500 ML @ 500 mls 1000 / 1000 /hr IV.SIG .Q1H PRN Rx#: [id number] KCl 20 mEq Premix Inj 20 meq In 100 / 100 100 / 100 100 ml @ 50 mls/hr IV.SIG PRN PRN Rx#:[id number] Ancef 1 GM Premix Inj 1 gm In 50 / 50 50 ml @ 0 mls/hr IV.SIG .STK- MED ONE Rx#:[id number] Ancef 2 GM Premix Inj 2 gm In 100 / 100 50 / 50 50 / 50 50 ml @ 100 mls/hr IV.SIG Q8H KARLA Rx#:[id number] Oral 240 / 240 Anesthesia Amount 3000 / 3000 Other 900 / 900 Autotransfusion Amount 600 / 600 Cell Saver Amount 500 / 500 Output: Urine 400 / 400 Estimated Blood Loss 1500 / 1500 Urine Amount (Catheter) 1860 / 1860 400 / 400 3-way Urethral 1860 / 1860 400 / 400 Chest Tube Drainage 220 / 220 140 / 140 #1Y and #2Y Pleural/Mediastinal 220 / 220 140 / 140 Other: Other Intake Source Saline Solution # Bowel Movements 0 Narrative: GENERAL: Middle-age male, lying in bed, no acute distress HEENT: Normocephalic. Atraumatic. Pupils equal, round, reactive, conjugate. Mucous membranes are moist NECK: Trachea is midline. There is no JVD. Right IJ introducer sheath in place , site clean dry and intact. CHEST: Midline sternal dressing with wound VAC dressing in place, site is clean dry and intact. 2 chest tubes exit subxiphoid with a minimal amount of sanguinous output. CARDIOVASCULAR: Normal rate, regular rhythm. Sinus. ABDOMEN: Soft, nontender, nondistended. No guarding. There is a dressing where prior right upper quadrant cholecystostomy tube was. There is no drainage from the site. MUSCULOSKELETAL: Pulses 2+. No peripheral edema. Lower extremity wrapped in Raf dressing. NEUROLOGICAL: No focal deficits - Urinary Catheter Management 3-way Urethral Cath placed during this visit: yes Reason for continuing: Hourly intake/output Insertion date: 04/13/18 Insertion time: 00:00 Results 04/15/18 04:30 04/15/18 04:30 Cardiac Enzymes 04/15/18 Range/Units 04:30 AST 17 (15-37) U/L CBC 04/15/18 Range/Units 04:30 WBC 16.3 H (4.0-11.0) th/mm3 RBC 3.10 L (4.50-5.90) mil/mm3 Hgb 9.2 L (13.0-17.0) gm/dL Hct 27.3 L (39.0-51.0) % Plt Count 310 (150-450) th/mm3 Comprehensive Metabolic Panel 04/15/18 04/15/18 Range/Units 04:30 04:30 Sodium 136 (136-145) meq/L Potassium 4.3 (3.5-5.1) meq/L Chloride 105 (98-107) meq/L Carbon Dioxide 25.6 (21.0-32.0) meq/L BUN 10 (7-18) mg/dL Creatinine 0.66 (0.60-1.30) mg/dL Calcium 8.0 L (8.5-10.1) mg/dL Direct Bilirubin 0.2 (0.0-0.2) mg/dL Indirect Bilirubin 0.3 (0.0-0.8) mg/dL AST 17 (15-37) U/L ALT 22 (12-78) U/L Alkaline Phosphatase 137 H (45-117) U/L Total Protein 5.4 L D (6.4-8.2) g/dL Albumin 2.2 L (3.4-5.0) g/dL Intake and Output 04/14/18 04/15/18 04/15/18 22:59 06:59 14:59 Intake Total 2810 / 2810 490 / 490 590 / 590 Output Total 630 / 630 400 / 400 540 / 540 Balance 2180 / 2180 90 / 90 50 / 50 Intake: IV 1910 / 1910 250 / 250 590 / 590 Precedex Inj 200 MCG In NS Inj 15 / 15 48 ML @ 0.2 MCG/KG/HR 5.17 mls/ hr IV.CONT TITRATE PRN Rx#: [id number] NovoLIN R (IV Infusion) 100 15 / 15 UNIT In NS Inj 99 ML @ 3 UNITS/ HR 3 mls/hr IV.CONT TITRATE PRN Rx#:[id number] Neosynephrine Inj 40 MG In NS 60 / 60 440 / 440 Inj 496 ML @ 40 MCG/MIN 30 mls/ hr IV.CONT TITRATE PRN Rx#: [id number] NS Inj 1,000 ML @ 84 mls/hr IV. 0 / 0 CONT .[id number] [facility] Rx#:[id number] Ofirmev Inj 1,000 mg In 100 ml 100 / 100 200 / 200 100 / 100 @ 400 mls/hr IV.SIG Q6H KARLA Rx# :[id number] Buminate 5% Inj 250 ML @ 250 250 / 250 mls/hr IV.SIG UNSCH PRN Rx#: [id number] Calcium Chloride Inj 1 GM In NS 220 / 220 Inj 100 ML @ 100 mls/hr IV.SIG PRN PRN Rx#:[id number] LR 1000 mL Inj 500 ML @ 500 mls 1000 / 1000 /hr IV.SIG .Q1H PRN Rx#: [id number] KCl 20 mEq Premix Inj 20 meq In 200 / 200 100 ml @ 50 mls/hr IV.SIG PRN PRN Rx#:[id number] Ancef 2 GM Premix Inj 2 gm In 50 / 50 50 / 50 50 / 50 50 ml @ 100 mls/hr IV.SIG Q8H KARLA Rx#:[id number] Oral 240 / 240 Other 900 / 900 Output: Urine 400 / 400 Urine Amount (Catheter) 410 / 410 400 / 400 3-way Urethral 410 / 410 400 / 400 Chest Tube Drainage 220 / 220 140 / 140 #1Y and #2Y Pleural/Mediastinal 220 / 220 140 / 140 Other: Other Intake Source Saline Solution # Bowel Movements 0 Weight 113 kg - Imaging and Cardiology Imaging: Impressions Chest X-Ray 04/14/18 13:36 CONCLUSION: Satisfactory postop appearance Chest X-Ray 04/15/18 05:00 CONCLUSION: 1. Stable small left pleural effusion with associated volume loss and/or airspace consolidation. There is also stable mild atelectasis or consolidation at the right lung base. 2. Left chest tube remains present and no pneumothorax is visualized. Assessment and Plan - Assessment (1) NSTEMI (non-ST elevated myocardial infarction) Code(s): I21.4 - Non-ST elevation (NSTEMI) myocardial infarction Status: Acute (2) Afib Code(s): I48.91 - Unspecified atrial fibrillation Status: Acute (3) SIRS (systemic inflammatory response syndrome) Code(s): R65.10 - Systemic inflammatory response syndrome (SIRS) of non- infectious origin without acute organ dysfunction Status: Acute (4) Intractable abdominal pain Code(s): R10.9 - Unspecified abdominal pain Status: Acute - Plan 1) Abdominal pain/nausea/emesis Found to have cholecystitis Perc burt drain out when CABG was started RUQ no pain with palpitation Continue to follow LFTs Will need to get opinion from Dr. Hall on Tuesday about how to proceed now that drain is out 2) NSTEMI Found to have multivessel CAD CABG x3 THOMAS to LAD SVG to OM SVG to PDA 3) Afib New onset Started on Cardizem, heart rates controlled Cardizem stopped while on vasopressors, currently on Amiodarone Eventual anti-coagulation 4) Bacteremia KELLY negative for vegetation, no signs of endocarditis 5) Hematuria ASA restarted 6) MRCP showing multiple stones in the common bile duct No further symptoms Most likely passed the stones
--- NOTE | 2018-04-15 16:09 | P.PNCC ---
Subjective Subjective Remarks/Hospital Course: Hospital Course: This is a 67-year-old male with a history of diabetes, GERD, and prior gastric bypass. He was originally admitted on 03/19 for nausea and flank pain and was found to have acute cholecystitis requiring percutaneous cholecystostomy tube. During this hospital admission, his course was complicated by non-ST elevation myocardial infarction for which he underwent left heart catheterization which demonstrated 80% mid LAD lesion, 70% left circumflex lesion, 100% RCA occlusion with left to right collaterals. He underwent 1 week of IV antibiotics for Klebsiella and E. coli bacteremia secondary to acute cholecystitis. After completion of IV antibiotics he underwent urgent off-pump CABG x 3 (THOMAS-->LAD, SVG-->OM, SVG-->PDA) with Dr. Carlin. He arrives to the CVICU in stable condition, intubated, arousing from anesthesia. He is on a low-dose phenylephrine to maintain endorgan perfusion. In the first hour he is in the ICU, his chest tubes have minimal output, his urine output is adequate. No additional information is available from patient due to his clinical condition. Review of systems is unobtainable. Subjective: 04/15: extubated. doing well. borderline oliguria, and remains on low-dose phenylephrine. lactate cleared. scvo2 adequate. Objective Vital Signs / I&O: Vital Signs 04/14/18 16:40 04/14/18 16:59 04/14/18 17:00 Temperature 36.4 C Pulse Rate 88 Respiratory Rate 16 Blood Pressure Pulse Oximetry 98 04/14/18 17:05 04/14/18 17:30 04/14/18 19:00 Temperature 36.5 C Pulse Rate 87 88 Respiratory Rate 15 16 Blood Pressure 98/60 L 104/64 Pulse Oximetry 99 99 97 04/14/18 21:00 04/14/18 21:15 04/14/18 21:25 Temperature 36.6 C Pulse Rate 91 H Respiratory Rate 16 18 Blood Pressure Pulse Oximetry 98 04/14/18 22:12 04/14/18 23:00 04/15/18 00:20 Temperature 36.4 C L Pulse Rate 102 H Respiratory Rate 18 12 18 Blood Pressure 100/58 L Pulse Oximetry 98 04/15/18 00:25 04/15/18 02:10 04/15/18 03:00 Temperature 36.4 C L Pulse Rate 97 H Respiratory Rate 16 16 12 Blood Pressure 93/54 L Pulse Oximetry 95 04/15/18 04:45 04/15/18 05:00 04/15/18 05:32 Temperature Pulse Rate 89 Respiratory Rate 18 18 18 Blood Pressure Pulse Oximetry 04/15/18 07:00 04/15/18 09:44 04/15/18 11:00 Temperature 36.9 C 36.8 C Pulse Rate 92 H 91 H 91 H Respiratory Rate 18 17 20 Blood Pressure 97/55 L 113/64 Pulse Oximetry 96 97 99 Intake & Output 04/14/18 04/15/18 04/15/18 18:59 06:59 18:59 Intake Total 6800 / 6800 700 / 700 590 / 590 Output Total 3580 / 3580 400 / 400 540 / 540 Balance 3220 / 3220 300 / 300 50 / 50 Weight 113 kg Intake: IV 1800 / 1800 460 / 460 590 / 590 Precedex Inj 200 MCG In NS Inj 15 / 15 48 ML @ 0.2 MCG/KG/HR 5.17 mls/ hr IV.CONT TITRATE PRN Rx#: [id number] NovoLIN R (IV Infusion) 100 15 / 15 UNIT In NS Inj 99 ML @ 3 UNITS/ HR 3 mls/hr IV.CONT TITRATE PRN Rx#:[id number] Neosynephrine Inj 40 MG In NS 60 / 60 440 / 440 Inj 496 ML @ 40 MCG/MIN 30 mls/ hr IV.CONT TITRATE PRN Rx#: [id number] NS Inj 1,000 ML @ 84 mls/hr IV. 0 / 0 CONT .[id number] THOMAS Rx#:[id number] Ofirmev Inj 1,000 mg In 100 ml 100 / 100 200 / 200 100 / 100 @ 400 mls/hr IV.SIG Q6H THOMAS Rx# :[id number] Buminate 5% Inj 250 ML @ 250 250 / 250 mls/hr IV.SIG UNSCH PRN Rx#: [id number] Calcium Chloride Inj 1 GM In NS 110 / 110 110 / 110 Inj 100 ML @ 100 mls/hr IV.SIG PRN PRN Rx#:[id number] LR 1000 mL Inj 500 ML @ 500 mls 1000 / 1000 /hr IV.SIG .Q1H PRN Rx#: [id number] KCl 20 mEq Premix Inj 20 meq In 100 / 100 100 / 100 100 ml @ 50 mls/hr IV.SIG PRN PRN Rx#:[id number] Ancef 1 GM Premix Inj 1 gm In 50 / 50 50 ml @ 0 mls/hr IV.SIG .STK- MED ONE Rx#:[id number] Ancef 2 GM Premix Inj 2 gm In 100 / 100 50 / 50 50 / 50 50 ml @ 100 mls/hr IV.SIG Q8H THOMAS Rx#:[id number] Oral 240 / 240 Anesthesia Amount 3000 / 3000 Other 900 / 900 Autotransfusion Amount 600 / 600 Cell Saver Amount 500 / 500 Output: Urine 400 / 400 Estimated Blood Loss 1500 / 1500 Urine Amount (Catheter) 1860 / 1860 400 / 400 3-way Urethral 1860 / 1860 400 / 400 Chest Tube Drainage 220 / 220 140 / 140 #1Y and #2Y Pleural/Mediastinal 220 / 220 140 / 140 Other: Other Intake Source Saline Solution # Bowel Movements 0 Result Diagrams: 04/15/18 04:30 04/15/18 04:30 Objective Remarks: GENERAL: Middle-age male, lying in bed, awake, alert HEENT: Normocephalic. Atraumatic. Pupils equal, round, reactive, conjugate. Mucous membranes are moist NECK: Trachea is midline. There is no JVD. Right IJ introducer sheath in place , site clean dry and intact. CHEST: Midline sternal dressing with wound VAC dressing in place, site is clean dry and intact. 2 chest tubes exit subxiphoid with a minimal amount of serosanguinous output. Equal chest rise. nc o2. CARDIOVASCULAR: Normal rate, regular rhythm. Sinus. Phenylephrine. ABDOMEN: Soft, nontender, nondistended. No guarding. There is a dressing where prior right upper quadrant cholecystostomy tube was. There is no drainage from the site. MUSCULOSKELETAL: Pulses 2+. No peripheral edema. Lower extremity wrapped in Raf dressing. NEUROLOGICAL: RASS 0. awake, alert. follows commands. No focal deficits. Assessment and Plan - Assessment and Plan Plan: Assessment: 67-year-old male with history of prior gastric bypass who is acute clinical course has been complicated by acute cholecystitis and Klebsiella, E. coli bacteremia requiring a week of IV antibiotics, now complicated by acute non -ST elevation myocardial infarction and underwent urgent off-pump CABG x 3 (THOMAS -->LAD, SVG-->OM, SVG-->PDA) on 04/14. clinically stable. still requiring vasopressors- will hold on diuresis for a few more hours. keep in ICU. watch uop closely. off-pump CABG x 3 (THOMAS-->LAD, SVG-->OM, SVG-->PDA) 04/14 NSTEMI CAD - close uop monitoring - wean phenylephrine for goal map > 65 mmHg - EF 60-65%, trace to mild MR on KELLY this admission - continue lipitor - restart ASA today - lasix when cvp begins to climb. Perioperative hypotension - wean phenylephrine for goal map > 65 mmHg - likely secondary to transient myocardial dysfunction. Perioperative mechanical ventilation- resolved - wean o2 by nc for goal spo2 > 90% - nebs - hob elevated - aggressive pulmonary toilet - OOB with PT POD 1. Afib - now in SR on telemetry - perioperative amiodarone prophylaxis - hold off on beta blockade today given pressor use. S/P Sepsis/ Acute cholecystitis E. coli and Klebsiella pneumonia on blood cultures - repeat blood cultures negative x 5 days -03/19. S/p cholecystostomy tube drain- not a candidate for cholecystectomy at this time due to CAD and need for heart surgery. - - drain d/c 04/13. - S/P Completed ceftriaxone 04/03. -LFTs trending down S/P cystoscopy- 04/11 Hematuria - resolved -voiding well- gross clear urine - Urology ff- 3 way scales placed 04/13 - in anticipation of CABG DM II - d/c insulin drip - start SSI. DVT prophylaxis with B-SCD PPI- hx of GERD CCM will continue to follow along while patient remains in the CVICU.
[2018-04-15] MEDS: Metoprolol Tartrate 25 MG Tablet PO SCH (17:58)
[2018-04-15] MEDS: Insulin NovoLOG Aspart Correctional Sugar Inj SQ SCH (18:02)
[2018-04-15] MEDS: Dextrose 50% in Water 50 ML Vial IV.PUSH PRN (22:55)
[2018-04-16] MEDS: Insulin NovoLOG Aspart Correctional Sugar Inj SQ SCH ×6 (02:46→22:36)
[2018-04-16] MEDS: fentaNYL Citrate Inj 100 MCG/2 ML Ampul IV.PUSH PRN (02:51)
[2018-04-16 05:33] LABS: Hematocrit 25.8 % (39.0-51.0); Hemoglobin 8.5 gm/dL (13.0-17.0); Mean Corpuscular Hemoglobin 29.3 pg (27.0-34.0); Mean Corpuscular Volume 88.7 fL (80.0-100.0); Mean Platelet Volume 8.3 fL (7.0-11.0); Platelet Count 267 th/mm3 (150-450); Red Blood Count 2.91 mil/mm3 (4.50-5.90); Red Cell Distribution Width 16.1 % (11.6-17.2); White Blood Count 13.1 th/mm3 (4.0-11.0)
[2018-04-16 06:05] LABS: Anion Gap 6 meq/L (5-15); Blood Urea Nitrogen 10 mg/dL (7-18); Calcium 7.3 mg/dL (8.5-10.1); Carbon Dioxide 27.7 meq/L (21.0-32.0); Chloride 102 meq/L (98-107); Glomerular Filtration Rate Greater Than 89 mL/min (>89); Glucose,Random 73 mg/dL (74-106); Sodium 136 meq/L (136-145)
[2018-04-16 06:12] LABS: Calcium-Albumin Corrected 8.9 mg/dL (8.5-10.1)
[2018-04-16] MEDS: Metoprolol Tartrate 25 MG Tablet PO SCH ×3 (07:59→20:44)
[2018-04-16] MEDS ORDERED: Sod Phosphate/Sod Biphosphate (Adult) Enema 133 ML Bottle RECTAL PRN (08:16)
--- NOTE | 2018-04-16 08:16 | P.PNCV ---
- Note Subjective/Hospital Course: 67-year-old male who presented to [facility] 03/19/18 due to nausea, vomiting and abdominal pain. He states that he was awakened at 6 a.m. with left -sided flank pain and left mid back pain radiating to the left lower quadrant. He developed nausea and vomiting secondary to the pain. he was incidentally found to have cholecystitis, perc burt tube was placed , Trop was + underwent cardiac cath by Dr Pérez : mid LAD 80%, Left Circ 70 % lesion, RCA 100% occluded in the mid portion with [id number] and right-to- right collaterals supplying the distal portion. Blood cultures grew klebsiella pneumoniae and E coli , followed by ID and recommended to at least complete one week course of IV antibiotics prior to surgery PAST MEDICAL HISTORY: Diabetes, GERD, Hyperlipidemia, morbid obesity with BMI 40, History of gastric bypass. 03/27 pt is pain free at this time , has perc burt drain US of lower ext neg for DVT, Carotid US no stenosis continues on IV antibiotics per ID : VIVIENNE cefepime IV Ceftriaxone IV once a day (stop date: 04/03/2018) after which we will repeat BCX on 04/04/18. If these repeat bcx are negative at 48 hrs and patient clinically doing well will clear him from CABG. VIVIENNE Flagyl consult PT 03/28 pain free will follow / schedule for surgery next week when cleared by ID 03/29 still has some mild right flank pain burt drain in place no chest pain 04/03 c/o of nausea and vomiting since last night , also some abdominal pain for repeat CT abdomen today also repeat Blood cultures pending 04/05 still complaining of nausea and vomiting burt drain in place 04/10 events noted over weekend blood culture neg 04/03 , off all antibiotics still has burt drain , nursing flushing periodically per Uro / will perform bedside cystoscopy at bedside this week / urine has cleared since Heparin vivienne General surgery / will see after 3-4 weeks after CABG to al for cholecystectomy will discuss timing for surgery with Dr Carlin no further complaints of nausea / vomiting 04/11 resting comfortably await bedside cystoscopy/ and clearance from urology then plan for timing of CABG, needs to be placed back on ASA 04/12 cleared by Urology for surgery " s/p bedside [place] cystoscopy did not show any abnormalities within the bladder there were no bladder tumors identified. Retroflex examination of the bladder neck showed an area of friability at the prostate which was most likely the area that was bleeding at the time. per Urology: recommend placement of 3 way scales prior to surgery pt ambulating with walker, no nausea scheduled for surgery on tuesday will need 3 way cath placed by urology on 04/[address] catheter placed by Urology stable for surgery in am 04/14 SURGICAL PROCEDURE 1. Urgent Off-pump Coronary Artery Bypass Grafting x 3 with Left Internal Mammary Artery (THOMAS) to Left Anterior Descending (LAD), reverse saphenous vein graft to obtuse Marginal branch of the left Circumflex artery, reverse saphenous vein graft to the posterior Descending branch of the right Coronary artery 2. Left leg Endoscopic Vein [place] 3. Ultrasound-guided dissection of the LAD 4. Intraoperative Vein Mapping. 04/15 Doing well clinically Weaning [place]-Synephrine drip as tolerated Awaiting LFT results Maintain in ICU Continue chest tube to drainage 04/16 Clinically and hematocrit stable New onset atrial fibrillation last night. Presently in normal sinus rhythm on amiodarone drip Increase beta-janeth to 25 twice daily Okay to transfer to [facility] later today Objective: Vital Signs - 24 hr 04/15/18 09:44 04/15/18 11:00 04/15/18 15:00 Temperature 98.3 F 98.9 F Pulse Rate 91 H 91 H 95 H Respiratory Rate 17 20 20 Blood Pressure 113/64 Pulse Oximetry 97 99 96 04/15/18 16:11 04/15/18 19:00 04/15/18 20:46 Temperature 99.4 F Pulse Rate 99 H 100 H 95 H Respiratory Rate 18 20 18 Blood Pressure Pulse Oximetry 97 97 04/15/18 23:00 04/15/18 23:10 04/16/18 03:00 Temperature 98.6 F 98.7 F Pulse Rate 117 H 106 H Respiratory Rate 18 18 18 Blood Pressure 96/56 L 110/64 Pulse Oximetry 95 97 Labs: Laboratory Results - last 12 hr 04/14/18 04/15/18 04/15/18 09:44 22:50 23:24 WBC RBC Hgb Hct MCV MCH MCHC RDW Plt Count MPV Sodium Potassium Chloride Carbon Dioxide Anion Gap BUN Creatinine Estimated GFR POC Glucose 67 L 144 H Random Glucose Calcium Calcium Adj for Albumin Albumin MTS Gel Crossmatch See Detail 04/16/18 04/16/18 04/16/18 02:23 04:30 04:30 WBC 13.1 H RBC 2.91 L Hgb 8.5 L Hct 25.8 L MCV 88.7 MCH 29.3 MCHC 33.0 RDW 16.1 Plt Count 267 MPV 8.3 Sodium 136 Potassium 4.0 Chloride 102 Carbon Dioxide 27.7 Anion Gap 6 BUN 10 Creatinine 0.63 Estimated GFR Greater than 89 POC Glucose 127 H Random Glucose 73 L Calcium 7.3 L* Calcium Adj for Albumin 8.9 Albumin 2.0 L MTS Gel Crossmatch Result Diagrams: 04/16/18 04:30 04/16/18 04:30 - Plan (1) Coronary artery disease involving eyak coronary artery Plan: scheduled for CABG on tuesday OOB/ PT (3) Afib Plan: in NSR (4) Cholecystitis Plan: s/p perc drain general surgery will see outpt 4-6 weeks after surgery to eval for lap burt
[2018-04-16] MEDS: Ketorolac Inj 30 MG/ML (IVP) Vial IV.PUSH PRN (08:41)
[2018-04-16] MEDS ORDERED: Metoprolol Tartrate 25 MG Tablet PO ONE (08:45)
[2018-04-16] MEDS: Multivitamin/Minerals Therapeutic Tablet PO SCH (10:04)
[2018-04-16] MEDS: Insulin Detemir Inj 1,000 UNIT/10 ML Vial SQ SCH ×2 (10:04→20:45)
[2018-04-16] MEDS: Amiodarone 200 MG Tablet PO SCH ×2 (10:04→20:44)
[2018-04-16] MEDS: Senna/Docusate Sodium 8.6/50 MG Tablet PO SCH ×2 (10:05→20:44)
[2018-04-16] MEDS: Magnesium Oxide 400 MG Tablet PO SCH ×2 (10:07→20:44)
--- NOTE | 2018-04-16 12:49 | P.PNCC ---
Subjective Subjective Remarks/Hospital Course: Hospital Course: This is a 67-year-old male with a history of diabetes, GERD, and prior gastric bypass. He was originally admitted on 03/19 for nausea and flank pain and was found to have acute cholecystitis requiring percutaneous cholecystostomy tube. During this hospital admission, his course was complicated by non-ST elevation myocardial infarction for which he underwent left heart catheterization which demonstrated 80% mid LAD lesion, 70% left circumflex lesion, 100% RCA occlusion with left to right collaterals. He underwent 1 week of IV antibiotics for Klebsiella and E. coli bacteremia secondary to acute cholecystitis. After completion of IV antibiotics he underwent urgent off-pump CABG x 3 (THOMAS-->LAD, SVG-->OM, SVG-->PDA) with Dr. Carlin. He arrives to the CVICU in stable condition, intubated, arousing from anesthesia. He is on a low-dose phenylephrine to maintain endorgan perfusion. In the first hour he is in the ICU, his chest tubes have minimal output, his urine output is adequate. No additional information is available from patient due to his clinical condition. Review of systems is unobtainable. Subjective: 04/15: extubated. doing well. borderline oliguria, and remains on low-dose phenylephrine. lactate cleared. scvo2 adequate. 04/16: looks improved from yesterday. needs increased rate control drugs. off vasopressors. adequate uop. Objective Vital Signs / I&O: Vital Signs 04/15/18 15:00 04/15/18 16:11 04/15/18 19:00 Temperature 37.2 C 37.4 C Pulse Rate 95 H 99 H 105 H Respiratory Rate 20 18 20 Blood Pressure Pulse Oximetry 96 97 04/15/18 20:46 04/15/18 23:00 04/15/18 23:10 Temperature 37.0 C Pulse Rate 95 H 117 H Respiratory Rate 18 18 18 Blood Pressure 96/56 L Pulse Oximetry 97 95 04/16/18 03:00 04/16/18 07:00 04/16/18 09:12 Temperature 37.1 C 37.1 C Pulse Rate 106 H 103 H 96 H Respiratory Rate 18 18 18 Blood Pressure 110/64 105/63 Pulse Oximetry 97 97 94 L Intake & Output 12/01/18 12/02/18 12/02/18 18:59 06:59 18:59 Intake Total 1120 / 1120 580 / 580 Output Total 1935 / 1935 1055 / 1055 Balance -815 / -815 -475 / -475 Weight 113 kg Intake: IV 640 / 640 100 / 100 Neosynephrine Inj 40 MG In NS 440 / 440 Inj 496 ML @ 40 MCG/MIN 30 mls/ hr IV.CONT TITRATE PRN Rx#: [id number] Ofirmev Inj 1,000 mg In 100 ml 100 / 100 @ 400 mls/hr IV.SIG Q6H THOMAS Rx# :[id number] Magnesium Sulfate Inj 2 GM In 100 / 100 NS Inj 96 ML @ 50 mls/hr IV.SIG PRN PRN Rx#:[id number] Ancef 2 GM Premix Inj 2 gm In 100 / 100 50 ml @ 100 mls/hr IV.SIG Q8H THOMAS Rx#:[id number] Oral 480 / 480 480 / 480 Output: Urine 400 / 400 Urine Amount (Catheter) 1345 / 1345 955 / 955 3-way Urethral 1345 / 1345 955 / 955 Chest Tube Drainage 190 / 190 100 / 100 #1Y and #2Y Pleural/Mediastinal 190 / 190 100 / 100 Other: # Bowel Movements 0 Result Diagrams: 04/16/18 04:30 04/16/18 04:30 Objective Remarks: GENERAL: Middle-age male, lying in bed, awake, alert HEENT: Normocephalic. Atraumatic. Pupils equal, round, reactive, conjugate. Mucous membranes are moist NECK: Trachea is midline. There is no JVD. Right IJ introducer sheath in place , site clean dry and intact. CHEST: Midline sternal dressing with wound VAC dressing in place, site is clean dry and intact. 2 chest tubes exit subxiphoid with a minimal amount of serosanguinous output. Equal chest rise. nc o2. CARDIOVASCULAR: tachycardic rate in the 100s, regular rhythm. ABDOMEN: Soft, nontender, nondistended. No guarding. There is a dressing where prior right upper quadrant cholecystostomy tube was. There is no drainage from the site. MUSCULOSKELETAL: Pulses 2+. No peripheral edema. Lower extremity wrapped in Raf dressing. NEUROLOGICAL: RASS 0. awake, alert. follows commands. No focal deficits. Assessment and Plan - Assessment and Plan Plan: Assessment: 67-year-old male with history of prior gastric bypass who is acute clinical course has been complicated by acute cholecystitis and Klebsiella, E. coli bacteremia requiring a week of IV antibiotics, now complicated by acute non -ST elevation myocardial infarction and underwent urgent off-pump CABG x 3 (THOMAS -->LAD, SVG-->OM, SVG-->PDA) on 04/14. clinically stable. continue diuresis. continue beta blockade- likely need to increase for elevated HR. will need to re -engage general surgery with regards to biliary disease, given that burt tube was dislodged and non-functional. From my standpoint, if he continues to do well, could leave ICU today. off-pump CABG x 3 (THOMAS-->LAD, SVG-->OM, SVG-->PDA) 04/14 NSTEMI CAD - close uop monitoring - EF 60-65%, trace to mild MR on KELLY this admission - continue lipitor - ASA - lasix Perioperative hypotension- resolved - secondary to transient myocardial dysfunction. Perioperative mechanical ventilation- resolved - wean o2 by nc for goal spo2 > 90% - nebs - hob elevated - aggressive pulmonary toilet - OOB with PT Afib - now in SR on telemetry - perioperative amiodarone prophylaxis - increase beta blockade. S/P Sepsis/ Acute cholecystitis E. coli and Klebsiella pneumonia on blood cultures - repeat blood cultures negative x 5 days -03/19. S/p cholecystostomy tube drain- not a candidate for cholecystectomy at this time due to CAD and need for heart surgery. - - drain d/c 04/13. - S/P Completed ceftriaxone 04/03. -LFTs trending down - re-engage gen surgery tomorrow. S/P cystoscopy- 04/11 Hematuria - resolved -voiding well- gross clear urine - Urology ff- 3 way scales placed 04/13 - in anticipation of CABG DM II - SSI. DVT prophylaxis with B-SCD PPI- hx of GERD CCM will continue to follow along while patient remains in the CVICU.
--- NOTE | 2018-04-16 13:08 | P.PNCA ---
Subjective Interval history: Up to the chair, doing well Converted to AFib overnight, rates mostly controlled Medications and Allergies Active Medications: Active Medications Acetaminophen (Tylenol) 650 mg PO Q4H PRN PRN Reason: Temp > 100.4 Last Admin: 03/27/18 09:04 Dose: 650 mg Hydrocodone Bitart/Acetaminophen ([place] 5/325) 1 tab PO Q3H PRN PRN Reason: PAIN SCALE 1 TO 5 Al Hydroxide/Mg Hydroxide (Milk Of Magnesia Liq) 30 ml PO Q12H PRN PRN Reason: Mild Constipation Last Admin: 03/25/18 15:47 Dose: 30 ml Albuterol (Duoneb Neb (Prn)) 1 ampul NEB Q2HR NEB PRN PRN Reason: WHEEZING Albuterol (Duoneb Neb (Karla)) 1 ampul NEB Q6HR NEB [facility] Last Admin: 04/16/18 09:08 Dose: 1 ampul Amiodarone HCl (Cordarone) 200 mg PO Q12HR [facility] Last Admin: 04/16/18 10:04 Dose: 200 mg Aspirin (Aspirin Chew) 81 mg PO DAILY [facility] Last Admin: 04/16/18 10:05 Dose: 81 mg Atorvastatin Calcium (Lipitor) 20 mg PO DAILY [facility] Last Admin: 04/16/18 10:06 Dose: 20 mg Bisacodyl (Dulcolax Supp) 10 mg RECTAL DAILY PRN PRN Reason: SEVERE CONSITIPATION Last Admin: 04/03/18 14:07 Dose: 10 mg Bisacodyl (Dulcolax Ec) 10 mg PO ONCE ONE Last Admin: 03/30/18 17:35 Dose: 10 mg Calcium Chloride (Calcium Chloride Inj) 0.5 gm IV.PUSH UNSCH PRN PRN Reason: SEE LABEL COMMENTS Chlorhexidine Gluconate (Hibiclens 4% Topical) 1 applicatio TOPICAL ASSORTER [facility] Stop: 04/18/18 13:15 Last Admin: 04/13/18 22:00 Dose: 1 applicatio Clopidogrel Bisulfate (Plavix) 75 mg PO DAILY [facility] Last Admin: 04/16/18 10:05 Dose: 75 mg Sodium Chloride 77.5 ml/Papaverine HCl 60 mg/Nitroglycerin 100 mcg/Diltiazem HCl 100 mg 0 ml IRRIGATION ASSORTER [facility] Stop: 04/18/18 13:15 Last Admin: 04/14/18 10:20 Dose: 77 bag Sodium Chloride 500 ml/ (Cefazolin Sodium 500 mg) 0 ml IRRIGATION ASSORTER [facility] Stop: 04/18/18 13:17 Last Admin: 04/14/18 10:12 Dose: 500 bag Dextrose (D50w Vial) 50 ml IV.PUSH UNSCH PRN PRN Reason: PER HYPOGLYCEMIA PROTOCOL Last Admin: 04/15/18 22:55 Dose: 50 ml Diltiazem HCl (Cardizem) 30 mg PO QID [facility] Last Admin: 04/15/18 13:21 Dose: Not Given Docusate Sodium (Colace) 100 mg PO BID [facility] Fentanyl Citrate (Fentanyl Inj) 25 mcg IV.PUSH Q1H PRN PRN Reason: BREAKTHROUGH PAIN Last Admin: 04/16/18 02:51 Dose: 25 mcg Glucagon (Glucagon Inj) 1 mg OTHER PRN PRN PRN Reason: for Hypoglycemia Protocol Sodium Chloride (Ns Inj) 1,000 mls @ 84 mls/hr IV.CONT .[id number] [facility] Last Admin: 04/14/18 19:41 Dose: Not Given Cefazolin Sodium/Dextrose (Ancef 2 Gm Premix Inj) 2 gm in 50 mls @ 100 mls/hr IV.SIG ASSORTER [facility] Stop: 04/18/18 13:59 Last Infusion: 04/14/18 08:41 Dose: Infused Sodium Chloride (Ns Inj) 500 mls @ 30 mls/hr IV.SIG .Q10H [facility] Last Admin: 04/14/18 05:34 Dose: Not Given Calcium Chloride 1 gm/ Sodium (Chloride) 110 mls @ 100 mls/hr IV.SIG PRN PRN PRN Reason: SEE LABEL COMMENTS Last Infusion: 04/14/18 19:30 Dose: Infused Dexmedetomidine HCl 200 mcg/ (Sodium Chloride) 50 mls @ 5.17 mls/hr IV.CONT TITRATE PRN; Protocol PRN Reason: Per Protocol Last Titration: 04/14/18 18:42 Dose: 0 mcg/kg/hr, 0 mls/hr Lactated Ringer's (Lr 1000 Ml Inj) 500 mls @ 500 mls/hr IV.SIG .Q1H PRN PRN Reason: SEE LABEL COMMENTS Last Infusion: 04/14/18 18:42 Dose: Infused Magnesium Sulfate 2 gm/ Sodium (Chloride) 100 mls @ 50 mls/hr IV.SIG PRN PRN PRN Reason: SEE LABEL COMMENTS Last Infusion: 04/15/18 19:19 Dose: Infused Magnesium Sulfate 2 gm/ Sodium (Chloride) 100 mls @ 50 mls/hr IV.SIG PRN PRN PRN Reason: SEE LABEL COMMENTS Norepinephrine Bitartrate 4 mg (/ Sodium Chloride) 250 mls @ 7.5 mls/hr IV.SIG TITRATE PRN; Protocol PRN Reason: Per Protocol Phenylephrine HCl 40 mg/ (Sodium Chloride) 500 mls @ 30 mls/hr IV.CONT TITRATE PRN; Protocol PRN Reason: See Protocol Last Titration: 04/15/18 17:00 Dose: 0 mcg/min, 0 mls/hr Potassium Chloride (Kcl 20 Meq Premix Inj) 20 meq in 100 mls @ 50 mls/hr IV.SIG PRN PRN PRN Reason: SEE LABEL COMMENTS Last Infusion: 04/14/18 19:58 Dose: Infused Potassium Chloride (Kcl 20 Meq Premix Inj) 20 meq in 100 mls @ 50 mls/hr IV.SIG PRN PRN PRN Reason: SEE LABEL COMMENTS Potassium Chloride (Kcl 20 Meq Premix Inj) 20 meq in 100 mls @ 50 mls/hr IV.SIG PRN PRN PRN Reason: SEE LABEL COMMENTS Insulin Aspart (Novolog Insulin Correctional Sugar Inj) 0 unit SQ 02,06,10,14, 18,22 [facility]; Protocol Last Admin: 04/16/18 10:49 Dose: 9 unit Insulin Detemir (Levemir Inj) 5 unit SQ BID [facility] Last Admin: 04/16/18 10:04 Dose: 5 unit Ketorolac Tromethamine (Toradol Inj) 15 mg IV.PUSH Q6H PRN PRN Reason: SEE LABEL COMMENTS Stop: 04/16/18 13:32 Last Admin: 04/16/18 08:41 Dose: 15 mg Lactulose (Lactulose Liq) 30 ml PO DAILY PRN PRN Reason: SEVERE CONSITIPATION Last Admin: 03/25/18 15:47 Dose: 30 ml Magnesium Oxide (Mag-Ox) 400 mg PO BID [facility] Last Admin: 04/16/18 10:07 Dose: 400 mg Meperidine HCl (Demerol Inj) 12.5 mg IV.PUSH Q4H PRN PRN Reason: SHIVERING Metformin HCl (Glucophage) 1,000 mg PO BID [facility] Last Admin: 04/16/18 10:08 Dose: Not Given Metoprolol Tartrate (Lopressor) 12.5 mg PO ASSORTER [facility] Stop: 04/18/18 13:17 Last Admin: 04/16/18 07:59 Dose: 12.5 mg Metoprolol Tartrate (Lopressor Inj) 2.5 mg IV.PUSH Q1H PRN PRN Reason: SEE LABEL COMMENTS Metoprolol Tartrate (Lopressor) 12.5 mg PO BID@0600,1800 [facility] Last Admin: 04/16/18 08:00 Dose: 12.5 mg Miscellaneous (Pill Splitter) 1 each OTHER UNSCH PRN PRN Reason: PILL SPIT Morphine Sulfate (Morphine Inj) 1 mg IV.PUSH Q10M PRN PRN Reason: PAIN SCALE 1 TO 5 Multivitamins/Minerals (Theragran-M) 1 tab PO DAILY [facility] Last Admin: 04/16/18 10:04 Dose: 1 tab Ondansetron HCl (Zofran Inj) 4 mg IV.PUSH Q6H PRN PRN Reason: NAUSEA OR VOMITING Last Admin: 04/14/18 16:33 Dose: 4 mg Pantoprazole Sodium (Protonix) 40 mg PO DAILY [facility] Last Admin: 04/16/18 10:04 Dose: 40 mg Phenylephrine HCl (Neosynephrine Inj) 0.1 mg IV.PUSH UNSCH PRN PRN Reason: SEE LABEL COMMENTS Polyethylene Glycol (Miralax) 17 gm PO DAILY [facility] Potassium Chloride (K-Dur) 20 meq PO DAILY [facility] Last Admin: 04/16/18 10:04 Dose: 20 meq Potassium Chloride (K-Dur) 40 meq PO UNSCH PRN PRN Reason: SEE LABEL COMMENTS Prochlorperazine Edisylate (Compazine Inj) 10 mg IV.PUSH Q6H PRN PRN Reason: NAUSEA Last Admin: 04/13/18 09:26 Dose: 10 mg Senna/Docusate Sodium (Carlotta-Colace) 1 tab PO BID [facility] Last Admin: 04/16/18 10:05 Dose: 1 tab Sennosides (Senokot) 17.2 mg PO Q12H PRN PRN Reason: Moderate Constipation Last Admin: 03/30/18 05:24 Dose: 17.2 mg Sodium Bicarbonate (Sodium Bicarbonate 8.4% Inj) 50 meq IV.PUSH UNSCH PRN PRN Reason: SEE LABEL COMMENTS Sodium Bicarbonate (Sodium Bicarbonate 8.4% Inj) 100 meq IV.PUSH UNSCH PRN PRN Reason: SEE LABEL COMMENTS Sodium Biphosphate/Sodium Phosphate (Fleets Enema (Adult)) 118 ml RECTAL UNSCH PRN PRN Reason: SEE LABEL COMMENTS Sodium Chloride (Ns Flush) 2 ml IV.FLUSH BID [facility] Last Admin: 04/16/18 10:07 Dose: 2 ml Sodium Chloride (Ns Flush) 2 ml IV.FLUSH PRN PRN PRN Reason: FLUSH AFTER USING IV ACCESS Terbutaline Sulfate (Brethine Inj) 1 mg SQ ONCE PRN PRN Reason: Extravasation Terbutaline Sulfate (Brethine Inj) 1 mg SQ UNSCH PRN PRN Reason: For Extravasation Allergies Allergy/AdvReac Type Severity Reaction Status Date / Time No Known Allergies Allergy Verified 03/19/18 10:28 Home Medications Medication Instructions Recorded Confirmed Type atorvastatin 20 mg PO DAILY 03/19/18 03/19/18 History liraglutide [Victoza 2-Sonido] 0.6 mg SUBCUT DAILY 03/19/18 03/19/18 History metformin 1,000 mg PO BID 03/19/18 03/19/18 History omeprazole-sodium bicarbonate 1 cap PO DAILY 03/19/18 03/19/18 History pantoprazole 20 mg PO DAILY 03/19/18 03/19/18 History Physical Exam Vital signs: Vital Signs 04/15/18 15:00 04/15/18 16:11 04/15/18 19:00 Temperature 98.9 F 99.4 F Pulse Rate 95 H 99 H 105 H Respiratory Rate 20 18 20 Blood Pressure Pulse Oximetry 96 97 04/15/18 20:46 04/15/18 23:00 04/15/18 23:10 Temperature 98.6 F Pulse Rate 95 H 117 H Respiratory Rate 18 18 18 Blood Pressure 96/56 L Pulse Oximetry 97 95 04/16/18 03:00 04/16/18 07:00 04/16/18 09:12 Temperature 98.7 F 98.7 F Pulse Rate 106 H 103 H 96 H Respiratory Rate 18 18 18 Blood Pressure 110/64 105/63 Pulse Oximetry 97 97 94 L Intake & Output 12/01/18 12/02/18 12/02/18 18:59 06:59 18:59 Intake Total 1120 / 1120 580 / 580 Output Total 1935 / 1935 1055 / 1055 Balance -815 / -815 -475 / -475 Weight 113 kg Intake: IV 640 / 640 100 / 100 Neosynephrine Inj 40 MG In NS 440 / 440 Inj 496 ML @ 40 MCG/MIN 30 mls/ hr IV.CONT TITRATE PRN Rx#: [id number] Ofirmev Inj 1,000 mg In 100 ml 100 / 100 @ 400 mls/hr IV.SIG Q6H [facility] Rx# :[id number] Magnesium Sulfate Inj 2 GM In 100 / 100 NS Inj 96 ML @ 50 mls/hr IV.SIG PRN PRN Rx#:[id number] Ancef 2 GM Premix Inj 2 gm In 100 / 100 50 ml @ 100 mls/hr IV.SIG Q8H [facility] Rx#:[id number] Oral 480 / 480 480 / 480 Output: Urine 400 / 400 Urine Amount (Catheter) 1345 / 1345 955 / 955 3-way Urethral 1345 / 1345 955 / 955 Chest Tube Drainage 190 / 190 100 / 100 #1Y and #2Y Pleural/Mediastinal 190 / 190 100 / 100 Other: # Bowel Movements 0 Narrative: GENERAL: Middle-age male, lying in bed, no acute distress HEENT: Normocephalic. Atraumatic. Pupils equal, round, reactive, conjugate. Mucous membranes are moist NECK: Trachea is midline. There is no JVD. Right IJ introducer sheath in place , site clean dry and intact. CHEST: Midline sternal dressing with wound VAC dressing in place, site is clean dry and intact. 2 chest tubes exit subxiphoid with a minimal amount of sanguinous output. CARDIOVASCULAR: Irregularly irregular ABDOMEN: Soft, nontender, nondistended. No guarding. There is a dressing where prior right upper quadrant cholecystostomy tube was. There is no drainage from the site. MUSCULOSKELETAL: Pulses 2+. No peripheral edema. Lower extremity wrapped in Raf dressing. NEUROLOGICAL: No focal deficits - Urinary Catheter Management 3-way Urethral Cath placed during this visit: yes Reason for continuing: Hourly intake/output Insertion date: 04/13/18 Insertion time: 00:00 Results 04/16/18 04:30 04/16/18 04:30 Cardiac Enzymes 04/15/18 Range/Units 04:30 AST 17 (15-37) U/L CBC 04/15/18 04/16/18 Range/Units 04:30 04:30 WBC 16.3 H 13.1 H (4.0-11.0) th/mm3 RBC 3.10 L 2.91 L (4.50-5.90) mil/mm3 Hgb 9.2 L 8.5 L (13.0-17.0) gm/dL Hct 27.3 L 25.8 L (39.0-51.0) % Plt Count 310 267 (150-450) th/mm3 Comprehensive Metabolic Panel 04/15/18 04/15/18 04/16/18 Range/Units 04:30 04:30 04:30 Sodium 136 136 (136-145) meq/L Potassium 4.3 4.0 (3.5-5.1) meq/L Chloride 105 102 (98-107) meq/L Carbon Dioxide 25.6 27.7 (21.0-32.0) meq/L BUN 10 10 (7-18) mg/dL Creatinine 0.66 0.63 (0.60-1.30) mg/dL Calcium 8.0 L 7.3 L* (8.5-10.1) mg/dL Direct Bilirubin 0.2 (0.0-0.2) mg/dL Indirect Bilirubin 0.3 (0.0-0.8) mg/dL AST 17 (15-37) U/L ALT 22 (12-78) U/L Alkaline Phosphatase 137 H (45-117) U/L Total Protein 5.4 L D (6.4-8.2) g/dL Albumin 2.2 L 2.0 L (3.4-5.0) g/dL Intake and Output 04/15/18 04/16/18 04/16/18 22:59 06:59 14:59 Intake Total 630 / 630 480 / 480 Output Total 1395 / 1395 1055 / 1055 Balance -765 / -765 -575 / -575 Intake: IV 150 / 150 Magnesium Sulfate Inj 2 GM In 100 / 100 NS Inj 96 ML @ 50 mls/hr IV.SIG PRN PRN Rx#:[id number] Ancef 2 GM Premix Inj 2 gm In 50 / 50 50 ml @ 100 mls/hr IV.SIG Q8H [facility] Rx#:[id number] Oral 480 / 480 480 / 480 Output: Urine Amount (Catheter) 1345 / 1345 955 / 955 3-way Urethral 1345 / 1345 955 / 955 Chest Tube Drainage 50 / 50 100 / 100 #1Y and #2Y Pleural/Mediastinal 50 / 50 100 / 100 Other: Weight 113 kg - Imaging and Cardiology Imaging: Impressions Chest X-Ray 04/14/18 13:36 CONCLUSION: Satisfactory postop appearance Chest X-Ray 04/15/18 05:00 CONCLUSION: 1. Stable small left pleural effusion with associated volume loss and/or airspace consolidation. There is also stable mild atelectasis or consolidation at the right lung base. 2. Left chest tube remains present and no pneumothorax is visualized. Assessment and Plan - Assessment (1) NSTEMI (non-ST elevated myocardial infarction) Code(s): I21.4 - Non-ST elevation (NSTEMI) myocardial infarction Status: Acute (2) Afib Code(s): I48.91 - Unspecified atrial fibrillation Status: Acute (3) SIRS (systemic inflammatory response syndrome) Code(s): R65.10 - Systemic inflammatory response syndrome (SIRS) of non- infectious origin without acute organ dysfunction Status: Acute (4) Intractable abdominal pain Code(s): R10.9 - Unspecified abdominal pain Status: Acute - Plan 1) Abdominal pain/nausea/emesis Found to have cholecystitis Perc burt drain out when CABG was started RUQ no pain with palpitation Continue to follow LFTs Will need to get opinion from Dr. Hall on Tuesday about how to proceed now that drain is out 2) NSTEMI Found to have multivessel CAD CABG x3 THOMAS to LAD SVG to OM SVG to PDA 3) Afib New onset 04/15/18 Cardizem stopped due to being on vasopressor, con't Amiodarone 04/16/18 Converted back to AFib overnight, increase Metoprolol, may need to be started back on Cardizem Eventual anti-coagulation 4) Bacteremia KELLY negative for vegetation, no signs of endocarditis 5) Hematuria ASA restarted 6) MRCP showing multiple stones in the common bile duct No further symptoms Most likely passed the stones
[2018-04-16] MEDS ORDERED: Amiodarone Inj 150 MG in Dextrose 5% in Water Inj 97 ML IV.SIG ONE ×2 (18:48)
[2018-04-16] MEDS: Docusate Sodium 100 MG Capsule PO SCH (22:36)
[2018-04-17] MEDS: Insulin NovoLOG Aspart Correctional Sugar Inj SQ SCH ×5 (02:00→22:32)
[2018-04-17 05:08] LABS: Baso # (Auto) 0.1 th/mm3 (0.0-0.2); Baso % (Auto) 0.8 % (0.0-2.0); Eos % (Auto) 0.4 % (0.0-4.0); Hematocrit 28.1 % (39.0-51.0); Hemoglobin 9.1 gm/dL (13.0-17.0); Lymph # (Auto) 1.5 th/mm3 (1.0-4.8); Mean Corpuscular HGB Conc 32.3 % (32.0-36.0); Mean Corpuscular Hemoglobin 28.7 pg (27.0-34.0); Mean Corpuscular Volume 88.9 fL (80.0-100.0); Mean Platelet Volume 8.4 fL (7.0-11.0); Mono # (Auto) 1.1 th/mm3 (0.0-0.9); Mono % (Auto) 9.5 % (0.0-8.0); Neut % (Auto) 76.3 % (16.0-70.0); Platelet Count 286 th/mm3 (150-450); Red Blood Count 3.16 mil/mm3 (4.50-5.90); Red Cell Distribution Width 16.6 % (11.6-17.2); White Blood Count 11.8 th/mm3 (4.0-11.0)
[2018-04-17 05:30] LABS: Anion Gap 7 meq/L (5-15); Blood Urea Nitrogen 14 mg/dL (7-18); Calcium 7.7 mg/dL (8.5-10.1); Carbon Dioxide 27.9 meq/L (21.0-32.0); Chloride 100 meq/L (98-107); Glomerular Filtration Rate Greater Than 89 mL/min (>89); Glucose,Random 118 mg/dL (74-106); Magnesium 2.1 mg/dL (1.5-2.5); Potassium 4.6 meq/L (3.5-5.1); Sodium 135 meq/L (136-145)
[2018-04-17] MEDS: Amiodarone 200 MG Tablet PO SCH ×3 (09:09→22:32)
[2018-04-17] MEDS: Metoprolol Tartrate 25 MG Tablet PO SCH ×2 (09:09→20:36)
[2018-04-17] MEDS: Docusate Sodium 100 MG Capsule PO SCH ×2 (09:09→20:37)
[2018-04-17] MEDS: Magnesium Oxide 400 MG Tablet PO SCH ×2 (09:09→20:36)
[2018-04-17] MEDS: Multivitamin/Minerals Therapeutic Tablet PO SCH (09:09)
[2018-04-17] MEDS: Senna/Docusate Sodium 8.6/50 MG Tablet PO SCH ×2 (09:09→20:36)
[2018-04-17] MEDS: Insulin Detemir Inj 1,000 UNIT/10 ML Vial SQ SCH ×2 (09:10→20:37)
[2018-04-17] MEDS: Polyethylene Glycol 3350 17 GM Packet PO SCH (13:02)
--- NOTE | 2018-04-17 13:26 | P.PNCV ---
- Note Subjective/Hospital Course: 67-year-old male who presented to [facility] 03/19/18 due to nausea, vomiting and abdominal pain. He states that he was awakened at 6 a.m. with left -sided flank pain and left mid back pain radiating to the left lower quadrant. He developed nausea and vomiting secondary to the pain. he was incidentally found to have cholecystitis, perc burt tube was placed , Trop was + underwent cardiac cath by Dr Pérez : mid LAD 80%, Left Circ 70 % lesion, RCA 100% occluded in the mid portion with [id number] and right-to- right collaterals supplying the distal portion. Blood cultures grew klebsiella pneumoniae and E coli , followed by ID and recommended to at least complete one week course of IV antibiotics prior to surgery PAST MEDICAL HISTORY: Diabetes, GERD, Hyperlipidemia, morbid obesity with BMI 40, History of gastric bypass. 03/27 pt is pain free at this time , has perc burt drain US of lower ext neg for DVT, Carotid US no stenosis continues on IV antibiotics per ID : VIVIENNE cefepime IV Ceftriaxone IV once a day (stop date: 04/03/2018) after which we will repeat BCX on 04/04/18. If these repeat bcx are negative at 48 hrs and patient clinically doing well will clear him from CABG. VIVIENNE Flagyl consult PT 03/28 pain free will follow / schedule for surgery next week when cleared by ID 03/29 still has some mild right flank pain burt drain in place no chest pain 04/03 c/o of nausea and vomiting since last night , also some abdominal pain for repeat CT abdomen today also repeat Blood cultures pending 04/05 still complaining of nausea and vomiting burt drain in place 04/10 events noted over weekend blood culture neg 04/03 , off all antibiotics still has burt drain , nursing flushing periodically per Uro / will perform bedside cystoscopy at bedside this week / urine has cleared since Heparin vivienne General surgery / will see after 3-4 weeks after CABG to al for cholecystectomy will discuss timing for surgery with Dr Carlin no further complaints of nausea / vomiting 04/11 resting comfortably await bedside cystoscopy/ and clearance from urology then plan for timing of CABG, needs to be placed back on ASA 04/12 cleared by Urology for surgery " s/p bedside [place] cystoscopy did not show any abnormalities within the bladder there were no bladder tumors identified. Retroflex examination of the bladder neck showed an area of friability at the prostate which was most likely the area that was bleeding at the time. per Urology: recommend placement of 3 way scales prior to surgery pt ambulating with walker, no nausea scheduled for surgery on tuesday will need 3 way cath placed by urology on 04/[address] catheter placed by Urology stable for surgery in am 04/14 SURGICAL PROCEDURE 1. Urgent Off-pump Coronary Artery Bypass Grafting x 3 with Left Internal Mammary Artery (THOMAS) to Left Anterior Descending (LAD), reverse saphenous vein graft to obtuse Marginal branch of the left Circumflex artery, reverse saphenous vein graft to the posterior Descending branch of the right Coronary artery 2. Left leg Endoscopic Vein [place] 3. Ultrasound-guided dissection of the LAD 4. Intraoperative Vein Mapping. 04/15 Doing well clinically Weaning [place]-Synephrine drip as tolerated Awaiting LFT results Maintain in ICU Continue chest tube to drainage 04/16 Clinically and hematocrit stable New onset atrial fibrillation last night. Presently in normal sinus rhythm on amiodarone drip Increase beta-janeth to 25 twice daily Okay to transfer to [facility] later today 04/17 converted to NSR transition to po amiodarone leave chest tubes in today / clots / bloody drainage OOB ambulate, gentle diuresis Objective: Vital Signs - 24 hr 04/16/18 15:00 04/16/18 16:42 04/16/18 19:00 Temperature 98.7 F 98.6 F Pulse Rate 90 97 H 100 H Respiratory Rate 20 18 17 Blood Pressure 120/69 117/67 Pulse Oximetry 95 04/16/18 20:12 04/16/18 23:00 04/17/18 00:13 Temperature 98.7 F Pulse Rate 88 84 Respiratory Rate 18 28 H Blood Pressure 100/63 Pulse Oximetry 95 96 04/17/18 00:27 04/17/18 03:00 04/17/18 07:00 Temperature 98.8 F 97.4 F L Pulse Rate 90 103 H Respiratory Rate 18 20 Blood Pressure 110/59 L 95/61 L Pulse Oximetry 96 96 97 04/17/18 08:00 04/17/18 11:00 Temperature 97.6 F Pulse Rate 76 Respiratory Rate 18 Blood Pressure 99/62 L Pulse Oximetry 97 99 GENERAL: A&O x 3 SKIN: Warm and dry. prevena dressing to chest HEAD: Normocephalic. EYES: No scleral icterus. No injection or drainage. NECK: Supple, trachea midline. No JVD or lymphadenopathy. CARDIOVASCULAR: Regular rate and rhythm without murmurs, gallops, or rubs. RESPIRATORY: few basilar crackles Breath sounds equal bilaterally. No accessory muscle use. chest tube to wall suction / no air leak/ drained 130cc/ 12 hrs GASTROINTESTINAL: Abdomen soft, non-tender, nondistended. MUSCULOSKELETAL: No cyanosis, or edema. BACK: Nontender without obvious deformity. No CVA tenderness. Labs: Laboratory Results - last 12 hr 04/17/18 04/17/18 04/17/18 04:08 04:47 04:47 WBC 11.8 H RBC 3.16 L Hgb 9.1 L Hct 28.1 L MCV 88.9 MCH 28.7 MCHC 32.3 RDW 16.6 Plt Count 286 MPV 8.4 Neut % (Auto) 76.3 H Lymph % (Auto) 13.0 [place] % (Auto) 9.5 H Eos % (Auto) 0.4 Baso % (Auto) 0.8 Neut # (Auto) 9.0 H Lymph # (Auto) 1.5 [place] # (Auto) 1.1 H Eos # (Auto) 0.0 Baso # (Auto) 0.1 WBC Differential . Differential Comment Auto diff final Sodium 135 L Potassium 4.6 Chloride 100 Carbon Dioxide 27.9 Anion Gap 7 BUN 14 Creatinine 0.67 Estimated GFR Greater than 89 POC Glucose 131 H Random Glucose 118 H Calcium 7.7 L Magnesium 2.1 04/17/18 04/17/18 08:27 10:18 WBC RBC Hgb Hct MCV MCH MCHC RDW Plt Count MPV Neut % (Auto) Lymph % (Auto) [place] % (Auto) Eos % (Auto) Baso % (Auto) Neut # (Auto) Lymph # (Auto) [place] # (Auto) Eos # (Auto) Baso # (Auto) WBC Differential Differential Comment Sodium Potassium Chloride Carbon Dioxide Anion Gap BUN Creatinine Estimated GFR POC Glucose 158 H 249 H Random Glucose Calcium Magnesium Result Diagrams: 04/17/18 04:47 04/17/18 04:47 Telemetry: Afib> NSR - Plan (1) Coronary artery disease involving blackfeet coronary artery Plan: ASA, statin, BB pulm toileting nebs, ezpap , acapella OOB/ PT (3) Afib Plan: in NSR > afib transition to po amiodarone (4) Cholecystitis Plan: s/p perc drain general surgery will see outpt 4-6 weeks after surgery to eval for lap burt
--- NOTE | 2018-04-17 13:39 | P.CONIM ---
History of Present Illness Reason for Consult: DM2, Hyperlipidemia. Status post CABG. Primary Care Provider: Eusebio Chacko MD Review of Systems Constitutional: No fevers, no chills no night sweats, no fatigue, no weakness Eyes: No eye pain, no blurry vision, no loss of vision ENT: No sore throat, no ear pain, no rhinorrhea Cardiovascular: No chest pain, no tachycardia, no palpitations, no syncope Respiratory: No wheezing, no cough, no shortness of breath Gastrointestinal: No abdominal pain, no black tarry stools, no bright red blood per rectum, no vomiting, no diarrhea Musculoskeletal: No joint pain, no muscle cramps, no stiffness Integumentary: No rash, no ulcers, no drainage Neurologic: No sensory loss, no loss of motor function, no dizziness Psychiatric: No behavioral changes, no hallucinations, no suicidal ideations [facility] Family History Family History Other Family history non-contributory Social History Social History Substance History: No History of Abuse Second Hand Smoke Exposure: Yes Smoking Status: Former smoker How Often Do You Have a Drink Containing Alcohol: Never Recent Travel in [facility] within the Last 8 Weeks: No Recent Out of Country Travel within the Last 8 Weeks: No Immunization History Tetanus Immunization: Unsure Hx Influenza Vaccine This Season: No Medications and Allergies Allergies Allergy/AdvReac Type Severity Reaction Status Date / Time No Known Allergies Allergy Verified 03/19/18 10:28 Home Medications Medication Instructions Recorded Confirmed Type atorvastatin 20 mg PO DAILY 03/19/18 03/19/18 History liraglutide [Victoza 2-Sonido] 0.6 mg SUBCUT DAILY 03/19/18 03/19/18 History metformin 1,000 mg PO BID 03/19/18 03/19/18 History omeprazole-sodium bicarbonate 1 cap PO DAILY 03/19/18 03/19/18 History pantoprazole 20 mg PO DAILY 03/19/18 03/19/18 History Active Medications: Active Medications Acetaminophen (Tylenol) 650 mg PO Q4H PRN PRN Reason: Temp > 100.4 Last Admin: 03/27/18 09:04 Dose: 650 mg Hydrocodone Bitart/Acetaminophen ([place] 5/325) 1 tab PO Q3H PRN PRN Reason: PAIN SCALE 1 TO 5 Last Admin: 04/17/18 09:07 Dose: 1 tab Al Hydroxide/Mg Hydroxide (Milk Of Magnesia Liq) 30 ml PO Q12H PRN PRN Reason: Mild Constipation Last Admin: 04/16/18 18:22 Dose: 30 ml Albuterol (Duoneb Neb (Prn)) 1 ampul NEB Q2HR NEB PRN PRN Reason: WHEEZING Last Admin: 04/17/18 00:13 Dose: 1 ampul Albuterol (Duoneb Neb (Karla)) 1 ampul NEB Q6HR NEB [facility] Last Admin: 04/17/18 03:15 Dose: Not Given Amiodarone HCl (Cordarone) 400 mg PO Q8HR [facility] Aspirin (Aspirin Chew) 81 mg PO DAILY [facility] Last Admin: 04/17/18 09:09 Dose: 81 mg Atorvastatin Calcium (Lipitor) 20 mg PO DAILY [facility] Last Admin: 04/17/18 09:09 Dose: 20 mg Bisacodyl (Dulcolax Supp) 10 mg RECTAL DAILY PRN PRN Reason: SEVERE CONSITIPATION Last Admin: 04/03/18 14:07 Dose: 10 mg Bisacodyl (Dulcolax Ec) 10 mg PO ONCE ONE Last Admin: 03/30/18 17:35 Dose: 10 mg Chlorhexidine Gluconate (Hibiclens 4% Topical) 1 applicatio TOPICAL [place] [facility] Stop: 04/18/18 13:15 Last Admin: 04/13/18 22:00 Dose: 1 applicatio Clopidogrel Bisulfate (Plavix) 75 mg PO DAILY [facility] Last Admin: 04/17/18 09:09 Dose: 75 mg Sodium Chloride 77.5 ml/Papaverine HCl 60 mg/Nitroglycerin 100 mcg/Diltiazem HCl 100 mg 0 ml IRRIGATION [facility] Stop: 04/18/18 13:15 Last Admin: 04/14/18 10:20 Dose: 77 bag Sodium Chloride 500 ml/ (Cefazolin Sodium 500 mg) 0 ml IRRIGATION [facility] Stop: 04/18/18 13:17 Last Admin: 04/14/18 10:12 Dose: 500 bag Dextrose (D50w Vial) 50 ml IV.PUSH UNSCH PRN PRN Reason: PER HYPOGLYCEMIA PROTOCOL Last Admin: 04/15/18 22:55 Dose: 50 ml Diltiazem HCl (Cardizem) 30 mg PO QID [facility] Last Admin: 04/15/18 13:21 Dose: Not Given Docusate Sodium (Colace) 100 mg PO BID [facility] Last Admin: 04/17/18 09:09 Dose: 100 mg Furosemide (Lasix Inj) 40 mg IV.PUSH ONCE ONE Stop: 04/17/18 14:01 Glucagon (Glucagon Inj) 1 mg OTHER PRN PRN PRN Reason: for Hypoglycemia Protocol Sodium Chloride (Ns Inj) 1,000 mls @ 84 mls/hr IV.CONT .[id number] [facility] Last Admin: 04/14/18 19:41 Dose: Not Given Cefazolin Sodium/Dextrose (Ancef 2 Gm Premix Inj) 2 gm in 50 mls @ 100 mls/hr IV.SIG [place] [facility] Stop: 04/18/18 13:59 Last Infusion: 04/14/18 08:41 Dose: Infused Sodium Chloride (Ns Inj) 500 mls @ 30 mls/hr IV.SIG .Q10H [facility] Last Admin: 04/14/18 05:34 Dose: Not Given Amiodarone HCl 450 mg/ (Dextrose) 250 mls @ 33.33 mls/hr IV.CONT TITRATE PRN; Protocol PRN Reason: Per Protocol Stop: 04/17/18 19:59 Last Admin: 04/17/18 09:20 Dose: 0.5 mg/min, 16.66 mls/hr Insulin Aspart (Novolog Insulin Correctional Sugar Inj) 0 unit SQ 02,06,10,14, 18,22 [facility]; Protocol Last Admin: 04/17/18 10:24 Dose: 14 unit Insulin Detemir (Levemir Inj) 10 unit SQ BID [facility] Lactulose (Lactulose Liq) 30 ml PO DAILY PRN PRN Reason: SEVERE CONSITIPATION Last Admin: 03/25/18 15:47 Dose: 30 ml Magnesium Oxide (Mag-Ox) 400 mg PO BID [facility] Last Admin: 04/17/18 09:09 Dose: 400 mg Metformin HCl (Glucophage) 1,000 mg PO BID [facility] Last Admin: 04/16/18 10:08 Dose: Not Given Metoprolol Tartrate (Lopressor) 12.5 mg PO [facility] Stop: 04/18/18 13:17 Last Admin: 04/16/18 07:59 Dose: 12.5 mg Metoprolol Tartrate (Lopressor) 25 mg PO BID [facility] Last Admin: 04/17/18 09:09 Dose: 25 mg Miscellaneous (Pill Splitter) 1 each OTHER UNSCH PRN PRN Reason: PILL SPIT Multivitamins/Minerals (Theragran-M) 1 tab PO DAILY [facility] Last Admin: 04/17/18 09:09 Dose: 1 tab Ondansetron HCl (Zofran Inj) 4 mg IV.PUSH Q6H PRN PRN Reason: NAUSEA OR VOMITING Last Admin: 04/14/18 16:33 Dose: 4 mg Pantoprazole Sodium (Protonix) 40 mg PO DAILY [facility] Last Admin: 04/17/18 09:09 Dose: 40 mg Polyethylene Glycol (Miralax) 17 gm PO DAILY [facility] Last Admin: 04/17/18 13:02 Dose: 17 gm Potassium Chloride (K-Dur) 20 meq PO DAILY [facility] Last Admin: 04/17/18 09:10 Dose: 20 meq Potassium Chloride (Klor-Con 8) 8 meq PO ONCE ONE Stop: 04/17/18 15:01 Prochlorperazine Edisylate (Compazine Inj) 10 mg IV.PUSH Q6H PRN PRN Reason: NAUSEA Last Admin: 04/13/18 09:26 Dose: 10 mg Senna/Docusate Sodium (Carlotta-Colace) 1 tab PO BID [facility] Last Admin: 04/17/18 09:09 Dose: 1 tab Sennosides (Senokot) 17.2 mg PO Q12H PRN PRN Reason: Moderate Constipation Last Admin: 03/30/18 05:24 Dose: 17.2 mg Sodium Biphosphate/Sodium Phosphate (Fleets Enema (Adult)) 118 ml RECTAL UNSCH PRN PRN Reason: SEE LABEL COMMENTS Sodium Chloride (Ns Flush) 2 ml IV.FLUSH BID [facility] Last Admin: 04/17/18 13:02 Dose: Not Given Sodium Chloride (Ns Flush) 2 ml IV.FLUSH PRN PRN PRN Reason: FLUSH AFTER USING IV ACCESS Physical Exam Vital signs: Last Vital Signs Temp 97.6 F 04/17/18 11:00 Pulse 76 04/17/18 11:00 Resp 18 04/17/18 11:00 BP 99/62 L 04/17/18 11:00 Pulse Ox 99 04/17/18 11:00 Intake & Output 04/15/18 04/16/18 04/17/18 04/18/18 06:59 06:59 06:59 06:59 Intake Total 7500 / 7500 1700 / 1700 1660 / 1660 Output Total 3980 / 3980 2990 / 2990 975 / 975 Balance 3520 / 3520 -1290 / -1290 685 / 685 Weight 113 kg 113 kg 110 kg Narrative: GENERAL: NAD, A&Ox3 HEAD: Normocephalic. NECK: Supple, trachea midline. No lymphadenopathy. EYES: No scleral icterus. No injection or drainage. CARDIOVASCULAR: Regular rate and rhythm without murmurs, gallops, or rubs. RESPIRATORY: Breath sounds equal bilaterally. No accessory muscle use. GASTROINTESTINAL: Abdomen soft, non-tender, nondistended. MUSCULOSKELETAL: No cyanosis, or edema. Anterior chest wound, bandage in place. SKIN: Warm and dry. NEURO: No focal neurological deficits. Results Labs CBC & Chem 7: 04/17/18 04:47 04/17/18 04:47 Assessment and Plan (1) Cholecystitis: Code(s): K81.9 - Cholecystitis, unspecified Status: Acute Plan 67 year old male, status post CABG. Hx of DM2 and HLD. Constipation Continue twice daily Colace, increase to 200 mg twice daily Continue laxatives as needed Monitor for improvement in bowel functions Status Post CABG Postop care Cardiothoracic surgeon following Continue working with PT Continue pain treatments as needed, pain controlled Continue Plavix Diabetes mellitus type 2 Follow blood sugars Insulin sliding scale Diabetic diet Hyperlipidemia Continue present treatment Follow as an outpatient DVT prophylaxis SCDs
[2018-04-17] MEDS ORDERED: Docusate Sodium 100 MG Capsule PO ONE (14:38)
--- NOTE | 2018-04-17 15:38 | P.PNCA ---
Subjective Interval history: Complaining about having to have a bowel movement No chest pain Medications and Allergies Active Medications: Active Medications Acetaminophen (Tylenol) 650 mg PO Q4H PRN PRN Reason: Temp > 100.4 Last Admin: 03/27/18 09:04 Dose: 650 mg Hydrocodone Bitart/Acetaminophen ([place] 5/325) 1 tab PO Q3H PRN PRN Reason: PAIN SCALE 1 TO 5 Last Admin: 04/17/18 09:07 Dose: 1 tab Al Hydroxide/Mg Hydroxide (Milk Of Magnsofia Liq) 30 ml PO Q12H PRN PRN Reason: Mild Constipation Last Admin: 04/17/18 14:37 Dose: 30 ml Albuterol (Duoneb Neb (Prn)) 1 ampul NEB Q2HR NEB PRN PRN Reason: WHEEZING Last Admin: 04/17/18 00:13 Dose: 1 ampul Albuterol (Duoneb Neb (Karla)) 1 ampul NEB Q6HR NEB [facility] Last Admin: 04/17/18 15:06 Dose: Not Given Amiodarone HCl (Cordarone) 400 mg PO Q8HR [facility] Last Admin: 04/17/18 14:37 Dose: 400 mg Aspirin (Aspirin Chew) 81 mg PO DAILY [facility] Last Admin: 04/17/18 09:09 Dose: 81 mg Atorvastatin Calcium (Lipitor) 20 mg PO DAILY [facility] Last Admin: 04/17/18 09:09 Dose: 20 mg Bisacodyl (Dulcolax Supp) 10 mg RECTAL DAILY PRN PRN Reason: SEVERE CONSITIPATION Last Admin: 04/03/18 14:07 Dose: 10 mg Bisacodyl (Dulcolax Ec) 10 mg PO ONCE ONE Last Admin: 03/30/18 17:35 Dose: 10 mg Chlorhexidine Gluconate (Hibiclens 4% Topical) 1 applicatio TOPICAL [place] [facility] Stop: 04/18/18 13:15 Last Admin: 04/13/18 22:00 Dose: 1 applicatio Clopidogrel Bisulfate (Plavix) 75 mg PO DAILY [facility] Last Admin: 04/17/18 09:09 Dose: 75 mg Sodium Chloride 77.5 ml/Papaverine HCl 60 mg/Nitroglycerin 100 mcg/Diltiazem HCl 100 mg 0 ml IRRIGATION [place] [facility] [facility] Stop: 04/18/18 13:15 Last Admin: 04/14/18 10:20 Dose: 77 bag Sodium Chloride 500 ml/ (Cefazolin Sodium 500 mg) 0 ml IRRIGATION [place] [facility] Stop: 04/18/18 13:17 Last Admin: 04/14/18 10:12 Dose: 500 bag Dextrose (D50w Vial) 50 ml IV.PUSH UNSCH PRN PRN Reason: PER HYPOGLYCEMIA PROTOCOL Last Admin: 04/15/18 22:55 Dose: 50 ml Diltiazem HCl (Cardizem) 30 mg PO QID [facility] Last Admin: 04/15/18 13:21 Dose: Not Given Docusate Sodium (Colace) 100 mg PO BID [facility] Last Admin: 04/17/18 09:09 Dose: 100 mg Glucagon (Glucagon Inj) 1 mg OTHER PRN PRN PRN Reason: for Hypoglycemia Protocol Sodium Chloride (Ns Inj) 1,000 mls @ 84 mls/hr IV.CONT .[id number] [facility] Last Admin: 04/14/18 19:41 Dose: Not Given Cefazolin Sodium/Dextrose (Ancef 2 Gm Premix Inj) 2 gm in 50 mls @ 100 mls/hr IV.SIG [place] [facility] Stop: 04/18/18 13:59 Last Infusion: 04/14/18 08:41 Dose: Infused Sodium Chloride (Ns Inj) 500 mls @ 30 mls/hr IV.SIG .Q10H [facility] Last Admin: 04/14/18 05:34 Dose: Not Given Amiodarone HCl 450 mg/ (Dextrose) 250 mls @ 33.33 mls/hr IV.CONT TITRATE PRN; Protocol PRN Reason: Per Protocol Stop: 04/17/18 19:59 Last Admin: 04/17/18 09:20 Dose: 0.5 mg/min, 16.66 mls/hr Insulin Aspart (Novolog Insulin Correctional Sugar Inj) 0 unit SQ 02,06,10,14, 18,22 [facility]; Protocol Last Admin: 04/17/18 10:24 Dose: 14 unit Insulin Detemir (Levemir Inj) 10 unit SQ BID [facility] Lactulose (Lactulose Liq) 30 ml PO DAILY PRN PRN Reason: SEVERE CONSITIPATION Last Admin: 03/25/18 15:47 Dose: 30 ml Magnesium Oxide (Mag-Ox) 400 mg PO BID [facility] Last Admin: 12/03/18 09:09 Dose: 400 mg Metformin HCl (Glucophage) 1,000 mg PO BID [facility] Last Admin: 04/16/18 10:08 Dose: Not Given Metoprolol Tartrate (Lopressor) 12.5 mg PO [place] [facility] Stop: 04/18/18 13:17 Last Admin: 04/16/18 07:59 Dose: 12.5 mg Metoprolol Tartrate (Lopressor) 25 mg PO BID [facility] Last Admin: 04/17/18 09:09 Dose: 25 mg Miscellaneous (Pill Splitter) 1 each OTHER UNSCH PRN PRN Reason: PILL SPIT Multivitamins/Minerals (Theragran-M) 1 tab PO DAILY [facility] Last Admin: 04/17/18 09:09 Dose: 1 tab Ondansetron HCl (Zofran Inj) 4 mg IV.PUSH Q6H PRN PRN Reason: NAUSEA OR VOMITING Last Admin: 04/14/18 16:33 Dose: 4 mg Pantoprazole Sodium (Protonix) 40 mg PO DAILY [facility] Last Admin: 04/17/18 09:09 Dose: 40 mg Polyethylene Glycol (Miralax) 17 gm PO DAILY [facility] Last Admin: 04/17/18 13:02 Dose: 17 gm Potassium Chloride (K-Dur) 20 meq PO DAILY [facility] Last Admin: 04/17/18 09:10 Dose: 20 meq Prochlorperazine Edisylate (Compazine Inj) 10 mg IV.PUSH Q6H PRN PRN Reason: NAUSEA Last Admin: 04/13/18 09:26 Dose: 10 mg Senna/Docusate Sodium (Carlotta-Colace) 1 tab PO BID [facility] Last Admin: 04/17/18 09:09 Dose: 1 tab Sennosides (Senokot) 17.2 mg PO Q12H PRN PRN Reason: Moderate Constipation Last Admin: 03/30/18 05:24 Dose: 17.2 mg Sodium Biphosphate/Sodium Phosphate (Fleets Enema (Adult)) 118 ml RECTAL UNSCH PRN PRN Reason: SEE LABEL COMMENTS Sodium Chloride (Ns Flush) 2 ml IV.FLUSH BID [facility] Last Admin: 04/17/18 13:02 Dose: Not Given Sodium Chloride (Ns Flush) 2 ml IV.FLUSH PRN PRN PRN Reason: FLUSH AFTER USING IV ACCESS Allergies Allergy/AdvReac Type Severity Reaction Status Date / Time No Known Allergies Allergy Verified 03/19/18 10:28 Home Medications Medication Instructions Recorded Confirmed Type atorvastatin 20 mg PO DAILY 03/19/18 03/19/18 History liraglutide [Victoza 2-Sonido] 0.6 mg SUBCUT DAILY 03/19/18 03/19/18 History metformin 1,000 mg PO BID 03/19/18 03/19/18 History omeprazole-sodium bicarbonate 1 cap PO DAILY 03/19/18 03/19/18 History pantoprazole 20 mg PO DAILY 03/19/18 03/19/18 History Physical Exam Vital signs: Vital Signs 04/16/18 16:42 04/16/18 19:00 04/16/18 20:12 Temperature 98.6 F Pulse Rate 97 H 100 H Respiratory Rate 18 17 Blood Pressure 117/67 Pulse Oximetry 95 04/16/18 23:00 04/17/18 00:13 04/17/18 00:27 Temperature 98.7 F Pulse Rate 88 84 Respiratory Rate 18 28 H Blood Pressure 100/63 Pulse Oximetry 96 96 04/17/18 03:00 04/17/18 07:00 04/17/18 08:00 Temperature 98.8 F 97.4 F L Pulse Rate 90 103 H Respiratory Rate 18 20 Blood Pressure 110/59 L 95/61 L Pulse Oximetry 96 97 97 04/17/18 11:00 Temperature 97.6 F Pulse Rate 76 Respiratory Rate 18 Blood Pressure 99/62 L Pulse Oximetry 99 Intake & Output 04/16/18 04/17/18 04/17/18 18:59 06:59 18:59 Intake Total 1440 / 1440 220 / 220 Output Total 395 / 395 580 / 580 Balance 1045 / 1045 -360 / -360 Weight 110 kg Intake: IV 100 / 100 Cordarone Inj 150 MG In D5W Inj 100 / 100 97 ML @ 100 mls/hr IV.SIG ONCE ONE Rx#:[id number] Oral 1440 / 1440 120 / 120 Output: Urine Amount (Catheter) 295 / 295 450 / 450 3-way Urethral 295 / 295 450 / 450 Chest Tube Drainage 100 / 100 130 / 130 #1Y and #2Y Pleural/Mediastinal 100 / 100 130 / 130 Other: Bladder Irrigation Fluid - Amount Instilled 3-way Urethral 30 Bladder Irrigation Fluid - Amount Drained 3-way Urethral 30 Date of Last Bowel Movement 04/17/18 # Bowel Movements 0 Narrative: GENERAL: NAD, A&Ox3 HEAD: Normocephalic. NECK: Supple, trachea midline. No lymphadenopathy. EYES: No scleral icterus. No injection or drainage. CARDIOVASCULAR: Regular rate and rhythm without murmurs, gallops, or rubs. RESPIRATORY: Breath sounds equal bilaterally. No accessory muscle use. GASTROINTESTINAL: Abdomen soft, non-tender, nondistended. MUSCULOSKELETAL: No cyanosis, or edema. Anterior chest wound, bandage in place. SKIN: Warm and dry. NEURO: No focal neurological deficits. - Urinary Catheter Management 3-way Urethral Cath placed during this visit: yes Reason for continuing: Hourly intake/output Insertion date: 04/13/18 Insertion time: 00:00 Results 04/17/18 04:47 04/17/18 04:47 CBC 04/16/18 04/17/18 Range/Units 04:30 04:47 WBC 13.1 H 11.8 H (4.0-11.0) th/mm3 RBC 2.91 L 3.16 L (4.50-5.90) mil/mm3 Hgb 8.5 L 9.1 L (13.0-17.0) gm/dL Hct 25.8 L 28.1 L (39.0-51.0) % Plt Count 267 286 (150-450) th/mm3 Neut # (Auto) 9.0 H (1.8-7.7) th/mm3 Lymph # (Auto) 1.5 (1.0-4.8) th/mm3 [place] # (Auto) 1.1 H (0.0-0.9) th/mm3 Eos # (Auto) 0.0 (0.0-0.4) th/mm3 Baso # (Auto) 0.1 (0.0-0.2) th/mm3 Comprehensive Metabolic Panel 04/16/18 04/17/18 Range/Units 04:30 04:47 Sodium 136 135 L (136-145) meq/L Potassium 4.0 4.6 (3.5-5.1) meq/L Chloride 102 100 (98-107) meq/L Carbon Dioxide 27.7 27.9 (21.0-32.0) meq/L BUN 10 14 (7-18) mg/dL Creatinine 0.63 0.67 (0.60-1.30) mg/dL Calcium 7.3 L* 7.7 L (8.5-10.1) mg/dL Albumin 2.0 L (3.4-5.0) g/dL Intake and Output 04/17/18 04/17/18 04/17/18 06:59 14:59 22:59 Intake Total 120 / 120 Output Total 580 / 580 Balance -460 / -460 Intake: Oral 120 / 120 Output: Urine Amount (Catheter) 450 / 450 3-way Urethral 450 / 450 Chest Tube Drainage 130 / 130 #1Y and #2Y Pleural/Mediastinal 130 / 130 Other: Date of Last Bowel Movement 04/17/18 Weight 110 kg Assessment and Plan - Assessment (1) NSTEMI (non-ST elevated myocardial infarction) Code(s): I21.4 - Non-ST elevation (NSTEMI) myocardial infarction Status: Acute (2) Afib Code(s): I48.91 - Unspecified atrial fibrillation Status: Acute (3) SIRS (systemic inflammatory response syndrome) Code(s): R65.10 - Systemic inflammatory response syndrome (SIRS) of non- infectious origin without acute organ dysfunction Status: Acute (4) Intractable abdominal pain Code(s): R10.9 - Unspecified abdominal pain Status: Acute - Plan 1) Abdominal pain/nausea/emesis Found to have cholecystitis Perc burt drain out when CABG was started RUQ no pain with palpitation Continue to follow LFTs Will need to get opinion from Dr. Hall about how to proceed now that drain is out 2) NSTEMI Found to have multivessel CAD CABG x3 THOMAS to LAD SVG to OM SVG to PDA 3) Afib New onset 04/15/18 Cardizem stopped due to being on vasopressor, con't Amiodarone 04/16/18 Converted back to AFib overnight, increase Metoprolol, may need to be started back on Cardizem Eventual anti-coagulation 4) Bacteremia KELLY negative for vegetation, no signs of endocarditis 5) Hematuria ASA restarted 6) MRCP showing multiple stones in the common bile duct No further symptoms Most likely passed the stones
--- NOTE | 2018-04-17 16:25 | P.PNURO ---
Subjective Patient symptoms today: Pt seen and examined. Urine is clear. Objective Vital Signs: Vital Signs 04/16/18 16:42 04/16/18 19:00 04/16/18 20:12 Temperature 98.6 F Pulse Rate 97 H 100 H Respiratory Rate 18 17 Blood Pressure 117/67 Pulse Oximetry 95 04/16/18 23:00 04/17/18 00:13 04/17/18 00:27 Temperature 98.7 F Pulse Rate 88 84 Respiratory Rate 18 28 H Blood Pressure 100/63 Pulse Oximetry 96 96 04/17/18 03:00 04/17/18 07:00 04/17/18 08:00 Temperature 98.8 F 97.4 F L Pulse Rate 90 103 H Respiratory Rate 18 20 Blood Pressure 110/59 L 95/61 L Pulse Oximetry 96 97 97 04/17/18 11:00 Temperature 97.6 F Pulse Rate 76 Respiratory Rate 18 Blood Pressure 99/62 L Pulse Oximetry 99 Intake & Output 04/16/18 04/17/18 04/17/18 18:59 06:59 18:59 Intake Total 1440 / 1440 220 / 220 Output Total 395 / 395 580 / 580 Balance 1045 / 1045 -360 / -360 Weight 110 kg Intake: IV 100 / 100 Cordarone Inj 150 MG In D5W Inj 100 / 100 97 ML @ 100 mls/hr IV.SIG ONCE ONE Rx#:[id number] Oral 1440 / 1440 120 / 120 Output: Urine Amount (Catheter) 295 / 295 450 / 450 3-way Urethral 295 / 295 450 / 450 Chest Tube Drainage 100 / 100 130 / 130 #1Y and #2Y Pleural/Mediastinal 100 / 100 130 / 130 Other: Bladder Irrigation Fluid - Amount Instilled 3-way Urethral 30 Bladder Irrigation Fluid - Amount Drained 3-way Urethral 30 Date of Last Bowel Movement 04/17/18 # Bowel Movements 0 Result Diagrams: 04/17/18 04:47 04/17/18 04:47 Medications and IVs: Active Medications Generic Name Dose Route Start Last Admin Trade Name Freq PRN Reason Stop Dose Admin Acetaminophen 650 mg 03/19/18 16:02 03/27/18 09:04 Tylenol PO 650 mg Q4H PRN Administration Temp > 100.4 Hydrocodone Bitart/Acetaminophen 1 tab 04/15/18 11:00 04/17/18 09:07 [place] 5/325 PO 1 tab Q3H PRN Administration PAIN SCALE 1 TO 5 Al Hydroxide/Mg Hydroxide 30 ml 03/19/18 16:02 04/17/18 14:37 Milk Of Magnesia Liq PO 30 ml Q12H PRN Administration Mild Constipation Albuterol 1 ampul 04/14/18 13:33 04/17/18 00:13 Duoneb Neb (Prn) NEB 1 ampul Q2HR NEB PRN Administration WHEEZING Albuterol 1 ampul 04/14/18 16:00 04/17/18 15:06 Duoneb Neb (Karla) NEB Not Given Q6HR NEB KARLA Amiodarone HCl 400 mg 04/17/18 14:00 04/17/18 14:37 Cordarone PO 400 mg Q8HR KARLA Administration Aspirin 81 mg 04/12/18 13:00 04/17/18 09:09 Aspirin Chew PO 81 mg DAILY KARLA Administration Atorvastatin Calcium 20 mg 03/28/18 09:00 04/17/18 09:09 Lipitor PO 20 mg DAILY KARLA Administration Bisacodyl 10 mg 03/19/18 16:02 04/03/18 14:07 Dulcolax Supp RECTAL 10 mg DAILY PRN Administration SEVERE CONSITIPATION Bisacodyl 10 mg 03/30/18 17:14 03/30/18 17:35 Dulcolax Ec PO 10 mg ONCE ONE Administration Chlorhexidine Gluconate 1 applicatio 04/12/18 13:15 04/13/18 22:00 Hibiclens 4% Topical TOPICAL 04/18/18 13:15 1 applicatio SENIOR ACCOUNTANT ANALYST KARLA Administration Clopidogrel Bisulfate 75 mg 04/15/18 09:00 04/17/18 09:09 Plavix PO 75 mg DAILY KARLA Administration Sodium Chloride 77.5 ml/ 0 ml 04/12/18 13:15 04/14/18 10:20 Papaverine HCl 60 mg/ IRRIGATION 04/18/18 13:15 77 bag Nitroglycerin 100 mcg/ SENIOR ACCOUNTANT ANALYST KARLA Administration Diltiazem HCl 100 mg Sodium Chloride 500 ml/ 0 ml 04/12/18 13:15 04/14/18 10:12 Cefazolin Sodium 500 mg IRRIGATION 04/18/18 13:17 500 bag SENIOR ACCOUNTANT ANALYST KARLA Administration Dextrose 50 ml 04/15/18 14:17 04/15/18 22:55 D50w Vial IV.PUSH 50 ml UNSCH PRN Administration PER HYPOGLYCEMIA PROTOCOL Diltiazem HCl 30 mg 03/23/18 13:00 04/15/18 13:21 Cardizem PO Not Given QID KARLA Docusate Sodium 100 mg 04/16/18 21:00 04/17/18 09:09 Colace PO 100 mg BID KARLA Administration Glucagon 1 mg 04/15/18 14:17 Glucagon Inj OTHER PRN PRN for Hypoglycemia Protocol Sodium Chloride 1,000 mls @ 84 mls/hr 04/07/18 09:54 04/14/18 19:41 Ns Inj IV.CONT Not Given .[id number] KARLA Cefazolin Sodium/Dextrose 2 gm in 50 mls @ 100 mls/hr 04/13/18 15:45 08:41 Ancef 2 Gm Premix Inj IV.SIG 04/18/18 13:59 Infused SENIOR ACCOUNTANT ANALYST KARLA Infusion Sodium Chloride 500 mls @ 30 mls/hr 04/14/18 02:00 04/14/18 05:34 Ns Inj IV.SIG Not Given .Q10H KARLA Amiodarone HCl 450 mg/ 250 mls @ 33.33 mls/hr 04/16/18 20:00 04/17/18 09:20 Dextrose IV.CONT 04/17/18 19:59 0.5 mg/min TITRATE PRN 16.66 mls/hr Per Protocol Administration Protocol 1 MG/MIN Insulin Aspart 0 unit 04/15/18 18:00 04/17/18 10:24 Novolog Insulin Correctional Sugar Inj SQ 14 unit 02,06,10,14,18,22 KARLA Administration Protocol Insulin Detemir 10 unit 04/17/18 21:00 Levemir Inj SQ BID KARLA Lactulose 30 ml 03/19/18 16:02 03/25/18 15:47 Lactulose Liq PO 30 ml DAILY PRN Administration SEVERE CONSITIPATION Magnesium Oxide 400 mg 03/22/18 14:45 04/17/18 09:09 Mag-Ox PO 400 mg BID KARLA Administration Metformin HCl 1,000 mg 03/27/18 21:00 04/16/18 10:08 Glucophage PO Not Given BID KARLA Metoprolol Tartrate 12.5 mg 04/12/18 05:00 04/16/18 07:59 Lopressor PO 04/18/18 13:17 12.5 mg SENIOR ACCOUNTANT ANALYST KARLA Administration Metoprolol Tartrate 25 mg 04/16/18 21:00 04/17/18 09:09 Lopressor PO 25 mg BID KARLA Administration Miscellaneous 1 each 04/15/18 17:21 Pill Splitter OTHER UNSCH PRN PILL SPIT Multivitamins/Minerals 1 tab 04/16/18 09:00 04/17/18 09:09 Theragran-M PO 1 tab DAILY KARLA Administration Ondansetron HCl 4 mg 04/14/18 13:33 04/14/18 16:33 Zofran Inj IV.PUSH 4 mg Q6H PRN Administration NAUSEA OR VOMITING Pantoprazole Sodium 40 mg 03/19/18 16:15 04/17/18 09:09 Protonix PO 40 mg DAILY KARLA Administration Polyethylene Glycol 17 gm 04/17/18 09:00 04/17/18 13:02 Miralax PO 17 gm DAILY KARLA Administration Potassium Chloride 20 meq 03/29/18 09:00 04/17/18 09:10 K-Dur PO 20 meq DAILY KARLA Administration Prochlorperazine Edisylate 10 mg 04/03/18 17:47 04/13/18 09:26 Compazine Inj IV.PUSH 10 mg Q6H PRN Administration NAUSEA Senna/Docusate Sodium 1 tab 03/19/18 21:00 04/17/18 09:09 Carlotta-Colace PO 1 tab BID KARLA Administration Sennosides 17.2 mg 03/19/18 16:02 03/30/18 05:24 Senokot PO 17.2 mg Q12H PRN Administration Moderate Constipation Sodium Biphosphate/Sodium Phosphate 118 ml 04/16/18 08:16 Fleets Enema (Adult) RECTAL UNSCH PRN SEE LABEL COMMENTS Sodium Chloride 2 ml 04/12/18 21:00 04/17/18 13:02 Ns Flush IV.FLUSH Not Given BID KARLA Sodium Chloride 2 ml 04/12/18 13:15 Ns Flush IV.FLUSH PRN PRN FLUSH AFTER USING IV ACCESS Objective Remarks: Abd:soft,nt,nd Gross hematuria 04/09 Abd:soft,nt,nd Voiding clear urine. 04/10 Abd:soft,nt,nd Voiding clear urine. 04/13 Abd:soft,nt,nd Scales with clear urine upon placement. 04/17/18 Abd:soft,nt,nd Scales with clear urine Assessment and Plan - Plan 67 y.o male s/p DC with gross hematuria voiding without clots. US showed normal bladder without mass or clots. Hgb 8.9. Continue IVF; not a good operative candidate Will need cysto in future when medically cleared. 04/09 67 y.o male s/p DC with gross hematuria. Hematuria has resolved after stopping anticoagulation. Continue IVF; not a good operative candidate Will need cysto prior to CABG to make sure he does not have a bladder tumor that will bleed once heparinized during a CABG. 04/10 67 y.o male s/p DC with gross hematuria. Hematuria has resolved after stopping anticoagulation. Continue IVF; not a good operative candidate at the present time Will perform cysto this week at bedside. 04/13 67 y.o male s/p DC with gross hematuria. Hematuria has resolved after stopping anticoagulation. 24F 3Way scales placed without difficulty. For CABG in AM. 04/17/18 Stable s/p CABG with h/o gross hematuria and negative cystoscopy Void trial at primary care team's convenience Monitor urine as anticoagulation medication has been restarted.
--- NOTE | 2018-04-17 19:46 | ECG ---
Date Performed: 04/16/2018 Time Performed: 18:55:12 PTAGE: 67 years EKG: Atrial flutter with rapid ventricular response. Leftward axis Inferior infarct - age undete rmined QRS changes V3/V4 may be due to LVH but cannot rule out anterior infarct Low QRS voltages in p recordial leads Abnormal ECG PREVIOUS TRACING : 04/15/2018 03.49 Compared to previous tracing, patient has now converted to atrial fibrillation with rapid ventricular response DOCTOR: Anais James Interpretating Date/Time 04/17/2018 19:44:40
[2018-04-18] MEDS: Insulin NovoLOG Aspart Correctional Sugar Inj SQ SCH ×8 (03:53→23:11)
[2018-04-18 04:59] LABS: Hemoglobin 8.8 gm/dL (13.0-17.0); Mean Corpuscular HGB Conc 33.8 % (32.0-36.0); Mean Corpuscular Volume 88.8 fL (80.0-100.0); Mean Platelet Volume 8.1 fL (7.0-11.0); Platelet Count 268 th/mm3 (150-450); Red Blood Count 2.93 mil/mm3 (4.50-5.90); Red Cell Distribution Width 16.3 % (11.6-17.2); White Blood Count 8.5 th/mm3 (4.0-11.0)
[2018-04-18] MEDS: Amiodarone 200 MG Tablet PO SCH ×3 (05:03→21:59)
[2018-04-18 05:29] LABS: Alanine Aminotransferase 31 U/L (12-78); Albumin 2.1 g/dL (3.4-5.0); Alkaline Phosphatase 151 U/L (45-117); Anion Gap 5 meq/L (5-15); Aspartate Aminotransferase 44 U/L (15-37); Blood Urea Nitrogen 12 mg/dL (7-18); Carbon Dioxide 31.3 meq/L (21.0-32.0); Chloride 101 meq/L (98-107); Glomerular Filtration Rate Greater Than 89 mL/min (>89); Glucose,Random 92 mg/dL (74-106); Sodium 137 meq/L (136-145); Total Protein 5.9 g/dL (6.4-8.2)
[2018-04-18] MEDS: Magnesium Oxide 400 MG Tablet PO SCH ×2 (09:14→21:59)
[2018-04-18] MEDS: Multivitamin/Minerals Therapeutic Tablet PO SCH (09:14)
[2018-04-18] MEDS: Senna/Docusate Sodium 8.6/50 MG Tablet PO SCH ×2 (09:14→21:59)
[2018-04-18] MEDS: Docusate Sodium 100 MG Capsule PO SCH ×2 (09:15→21:59)
[2018-04-18] MEDS: Metoprolol Tartrate 25 MG Tablet PO SCH ×3 (09:15→21:59)
[2018-04-18] MEDS: Insulin Detemir Inj 1,000 UNIT/10 ML Vial SQ SCH ×2 (09:21→22:00)
[2018-04-18] MEDS: Polyethylene Glycol 3350 17 GM Packet PO SCH (09:21)
--- NOTE | 2018-04-18 09:54 | P.PN ---
Subjective Interval history: Low for non-STEMI, atrial fibrillation, cholecystitis. This morning patient was trying to have a bowel movement and was complaining of abdominal pain. He had a bowel movement yesterday as well. He denies any significant chest pain, shortness of breath, fever or chills. Physical Exam Vital signs: Vital Signs 04/17/18 11:00 04/17/18 15:00 04/17/18 19:00 Temperature 97.6 F 98.0 F 98.7 F Pulse Rate 76 80 81 Respiratory Rate 18 18 18 Blood Pressure 99/62 L 104/61 110/65 Pulse Oximetry 99 94 L 95 04/17/18 20:00 04/17/18 22:03 04/17/18 22:05 Temperature Pulse Rate 68 Respiratory Rate 14 17 Blood Pressure Pulse Oximetry 95 97 04/17/18 23:00 04/18/18 02:28 04/18/18 03:39 Temperature 98.6 F 98.7 F Pulse Rate 80 80 75 Respiratory Rate 18 18 Blood Pressure 104/60 92/55 L Pulse Oximetry 96 99 04/18/18 09:07 Temperature Pulse Rate 95 H Respiratory Rate 16 Blood Pressure Pulse Oximetry Intake & Output 04/17/18 04/18/18 04/18/18 18:59 06:59 18:59 Intake Total 480 / 480 240 / 240 Output Total 1900 / 1900 1230 / 1230 Balance -1420 / -1420 -990 / -990 Weight 107.5 kg Intake: Oral 480 / 480 240 / 240 Output: Urine Amount (Catheter) 1600 / 1600 1200 / 1200 3-way Urethral 1600 / 1600 1200 / 1200 Chest Tube Drainage 300 / 300 30 / 30 #1Y and #2Y Pleural/Mediastinal 300 / 300 30 / 30 Other: Date of Last Bowel Movement 04/17/18 # Bowel Movements 3 Narrative: GENERAL: Alert, NAD. HEAD: Normocephalic. NECK: Supple, trachea midline. No lymphadenopathy. EYES: No scleral icterus. No injection or drainage. CARDIOVASCULAR: Regular rate and rhythm without murmurs, gallops, or rubs. Chest tube in place. RESPIRATORY: Breath sounds equal bilaterally. No accessory muscle use. GASTROINTESTINAL: Abdomen soft, non-tender, nondistended. MUSCULOSKELETAL: No cyanosis, or edema. Prevana dressing present. SKIN: Warm and dry. NEURO: No focal neurological deficits. - Urinary Catheter Management 3-way Urethral Cath placed during this visit: yes Reason for continuing: Hourly intake/output Insertion date: 04/13/18 Insertion time: 00:00 Results - Labs CBC & Chem 7: 04/18/18 04:37 04/18/18 04:37 Laboratory Results - last 24 hr 04/17/18 04/17/18 04/17/18 10:18 15:23 18:30 WBC RBC Hgb Hct MCV MCH MCHC RDW Plt Count MPV Sodium Potassium Chloride Carbon Dioxide Anion Gap BUN Creatinine Estimated GFR POC Glucose 249 H 111 H 115 H Random Glucose Calcium Total Bilirubin AST ALT Alkaline Phosphatase Total Protein Albumin 04/17/18 04/18/18 04/18/18 20:35 04:37 04:37 WBC 8.5 RBC 2.93 L Hgb 8.8 L Hct 26.0 L MCV 88.8 MCH 30.0 MCHC 33.8 RDW 16.3 Plt Count 268 MPV 8.1 Sodium 137 Potassium 4.0 Chloride 101 Carbon Dioxide 31.3 Anion Gap 5 BUN 12 Creatinine 0.66 Estimated GFR Greater than 89 POC Glucose 110 Random Glucose 92 Calcium 8.0 L Total Bilirubin 0.4 AST 44 H ALT 31 Alkaline Phosphatase 151 H Total Protein 5.9 L Albumin 2.1 L 04/18/18 05:06 WBC RBC Hgb Hct MCV MCH MCHC RDW Plt Count MPV Sodium Potassium Chloride Carbon Dioxide Anion Gap BUN Creatinine Estimated GFR POC Glucose 97 Random Glucose Calcium Total Bilirubin AST ALT Alkaline Phosphatase Total Protein Albumin - Procedures 04/14/2018 CABG 1. Severe Multi Vessel Coronary Artery Disease. 2. Acute Myocardial Infarction (NSTEMI) 3. Acute Cholecystitis s/p percutaneous cholecystostomy tube placement 4. Sepsis and Bacteremia 5. Severe Pulmonary Insufficiency 6. Intramyocardial Coronary Vessels Transesophageal echo 03/21/2018 The left ventricular systolic function is normal with an estimated ejection fraction in the range of 60-65%. [id number] mitral valve regurgitation. Assessment and Plan - Assessment (1) Cholecystitis Code(s): K81.9 - Cholecystitis, unspecified Status: Acute Plan: Continue with cholecystostomy tube; await CABG this next week; will follow with surgery in 3-4 weeks. Will see intermittently until then. For possible ERCP today. - Plan Mr. Bridges is a pleasant 67-year-old male with history of prior gastric bypass who has acute clinical course has been complicated by acute cholecystitis and Klebsiella, E. coli bacteremia requiring a week of IV antibiotics, now complicated by acute non-ST elevation myocardial infarction and underwent urgent off-pump CABG x 3 (THOMAS-->LAD, SVG-->OM, SVG-->PDA) on 04/14. NSTEMI Coronary artery disease -s/p Off-pump CABG (THOMAS-->LAD, SVG-->OM, SVG-->PDA) 04/14/2018 -EF 60-65%, trace to mild MR on [facility] this admission Continue aspirin 81 mg, atorvastatin 20 mg, Plavix 75 mg Continue metoprolol 25 mg twice daily. Continue amiodarone 400 mg p.o. every 8 hours. Atrial fibrillation -currently in normal sinus rhythm. New onset. Patient is currently on beta-janeth as well as amiodarone. May benefit from anticoagulation for 4 weeks. Diabetes mellitus Continue sliding scale insulin as well as Levemir 10 units twice daily. Acute cholecystitis E. coli and Klebsiella bacteremia -resolved General surgery to consider cholecystectomy in the near future. Hematuria Appreciate urology input. Negative cystoscopy. Pavon management per urology recommendations. Full code. Pharmacological DVT prophylaxis after chest tube is discontinued.
--- NOTE | 2018-04-18 12:16 | P.PNGS ---
Subjective Interval history: Resting in bed No complaints Chest tube in uncomfortable Physical Exam Vital signs: Vital Signs 04/17/18 15:00 04/17/18 19:00 04/17/18 20:00 Temperature 98.0 F 98.7 F Pulse Rate 80 81 Respiratory Rate 18 18 Blood Pressure 104/61 110/65 Pulse Oximetry 94 L 95 95 04/17/18 22:03 04/17/18 22:05 04/17/18 23:00 Temperature 98.6 F Pulse Rate 68 80 Respiratory Rate 14 17 18 Blood Pressure 104/60 Pulse Oximetry 97 96 04/18/18 02:28 04/18/18 03:39 04/18/18 09:07 Temperature 98.7 F Pulse Rate 80 75 95 H Respiratory Rate 18 16 Blood Pressure 92/55 L Pulse Oximetry 99 04/18/18 09:43 04/18/18 12:02 Temperature 98.7 F 98.6 F Pulse Rate 86 71 Respiratory Rate 18 18 Blood Pressure 112/56 L 99/65 L Pulse Oximetry 100 95 Intake & Output 04/17/18 04/18/18 04/18/18 18:59 06:59 18:59 Intake Total 480 / 480 240 / 240 Output Total 1900 / 1900 1230 / 1230 Balance -1420 / -1420 -990 / -990 Weight 107.5 kg Intake: Oral 480 / 480 240 / 240 Output: Urine Amount (Catheter) 1600 / 1600 1200 / 1200 3-way Urethral 1600 / 1600 1200 / 1200 Chest Tube Drainage 300 / 300 30 / 30 #1Y and #2Y Pleural/Mediastinal 300 / 300 30 / 30 Other: Date of Last Bowel Movement 04/17/18 # Bowel Movements 3 Narrative: Alert and awake Sternal dressing in place; Chest tube in place Abdomen soft Pavon with clear yellow urine - Urinary Catheter Management 3-way Urethral Cath placed during this visit: yes Reason for continuing: Hourly intake/output Insertion date: 04/13/18 Insertion time: 00:00 Results - Labs 04/18/18 04:37 04/18/18 04:37 Laboratory Results - last 24 hr 04/17/18 04/17/18 04/17/18 15:23 18:30 20:35 WBC RBC Hgb Hct MCV MCH MCHC RDW Plt Count MPV Sodium Potassium Chloride Carbon Dioxide Anion Gap BUN Creatinine Estimated GFR POC Glucose 111 H 115 H 110 Random Glucose Calcium Total Bilirubin AST ALT Alkaline Phosphatase Total Protein Albumin 04/18/18 04/18/18 04/18/18 04:37 04:37 05:06 WBC 8.5 RBC 2.93 L Hgb 8.8 L Hct 26.0 L MCV 88.8 MCH 30.0 MCHC 33.8 RDW 16.3 Plt Count 268 MPV 8.1 Sodium 137 Potassium 4.0 Chloride 101 Carbon Dioxide 31.3 Anion Gap 5 BUN 12 Creatinine 0.66 Estimated GFR Greater than 89 POC Glucose 97 Random Glucose 92 Calcium 8.0 L Total Bilirubin 0.4 AST 44 H ALT 31 Alkaline Phosphatase 151 H Total Protein 5.9 L Albumin 2.1 L 04/18/18 04/18/18 09:55 11:48 WBC RBC Hgb Hct MCV MCH MCHC RDW Plt Count MPV Sodium Potassium Chloride Carbon Dioxide Anion Gap BUN Creatinine Estimated GFR POC Glucose 323 H 286 H Random Glucose Calcium Total Bilirubin AST ALT Alkaline Phosphatase Total Protein Albumin - Imaging Imaging: ITS Impressions Abdomen/Pelvis CT 03/19/18 10:38 CONCLUSION: 1. Short segmental concentric wall thickening is identified in the distal descending colon. Colon malignancy needs to be excluded. 2. Calcified gallstones with moderate distention of the gallbladder. 3. No other significant abnormality. Chest CTA 03/19/18 13:37 CONCLUSION: 1. No evidence of acute pulmonary embolism. 2. Mild subpleural airspace disease and reticulations which may be chronic. 3. No evidence of segmental or lobar lung consolidation. Abdomen/Pelvis CTA 03/22/18 00:00 CONCLUSION: 1. Prominent gallbladder distention and surrounding inflammatory changes consistent with cholecystitis 2. No acute vascular findings in the abdomen or pelvis. Carotid Doppler Study 03/25/18 12:49 CONCLUSION: 1. Right Internal Carotid Artery: No significant plaque or narrowing. 2. Left Internal Carotid Artery: No significant plaque or narrowing. Lower Extremity Ultrasound 03/25/18 12:49 CONCLUSION: Bilateral greater saphenous vein measurements as above. No acute abnormalities are demonstrated. Venous Doppler Study 03/25/18 12:49 CONCLUSION: Negative study. No venous thrombosis of either lower extremity. Percutaneous Cholangiogram 03/31/18 00:00 CONCLUSION: Uncomplicated percutaneous cholecystostomy as above. Cholangiopancreatography MRI 04/03/18 17:20 CONCLUSION: 1. Numerous filling defects within the central intrahepatic biliary ducts, common hepatic ducts, and common bile ducts. These represent stones and/or thrombus/hemorrhage. The linear defects are more likely related to hemorrhage. 2. Dilatation of the gallbladder with thickened gallbladder wall and a cholecystostomy tube in place. There is heterogeneous material within the gallbladder. Abdomen/Bladder Ultrasound 04/07/18 00:00 CONCLUSION: 1. No findings to account for the patient's hematuria. 2. Nonvisualization of the left kidney. 3. No evidence of hydronephrosis or nephrolithiasis in the right kidney. Chest X-Ray 04/15/18 05:00 CONCLUSION: 1. Stable small left pleural effusion with associated volume loss and/or airspace consolidation. There is also stable mild atelectasis or consolidation at the right lung base. 2. Left chest tube remains present and no pneumothorax is visualized. Assessment and Plan - Assessment (1) Intractable abdominal pain Code(s): R10.9 - Unspecified abdominal pain Status: Acute (2) NSTEMI (non-ST elevated myocardial infarction) Code(s): I21.4 - Non-ST elevation (NSTEMI) myocardial infarction Status: Acute (3) Afib Code(s): I48.91 - Unspecified atrial fibrillation Status: Acute (4) Cholecystitis Code(s): K81.9 - Cholecystitis, unspecified Status: Acute Plan: 67 year old male with afib RVR; s/p cardiac cath; cholecystics -S/p CABG -Cholecystostomy tube became dislodged and removed -Patient prefers to recover from CABG and plan for lap burt at a later date -Follow up in the office His cholecystostomy tube site is healed. He is having no RUQ tenderness/pain. I spoke with the patient today as well; he wishes to recuperate from the cardiac surgery first; I have explained that he may develop acute cholecystitis again at any time and he needs to undergo surgery as soon as he regains his strength. He relates that he is going to go to [facility] next; I have instructed him to contact us when he is getting ready to be discharged from [facility] to plan for laparoscopic cholecystectomy. He agrees to comply. The exam, history, and the medical decision-making described in the above note were completed with the assistance of the mid-level provider. I reviewed and agree with the findings presented. I attest that I had a [id number] encounter with the patient on the same day, and personally performed and documented my assessment and findings in the medical record.
--- NOTE | 2018-04-18 14:42 | P.DIET ---
Nutritional Evaluation Type of nutrition evaluation: initial Nutrition screening: MDC (diet education) Assessment Assessment: MDC for diet education s/p urgent off-pump CABG x 3 received on 04/14. Patient Navigator to provide education, consult RD if complexities with diet education arise. Recommendations: Patient Navigator to provide education, consult RD if complexities with diet education arise
--- NOTE | 2018-04-18 15:10 | P.PNCA ---
Subjective Interval history: Mildly nauseated Medications and Allergies Active Medications: Active Medications Acetaminophen (Tylenol) 650 mg PO Q4H PRN PRN Reason: Temp > 100.4 Last Admin: 03/27/18 09:04 Dose: 650 mg Hydrocodone Bitart/Acetaminophen ([place] 5/325) 1 tab PO Q3H PRN PRN Reason: PAIN SCALE 1 TO 5 Last Admin: 04/18/18 09:12 Dose: 1 tab Al Hydroxide/Mg Hydroxide (Milk Of Magnsofia Liq) 30 ml PO Q12H PRN PRN Reason: Mild Constipation Last Admin: 04/17/18 14:37 Dose: 30 ml Albuterol (Duoneb Neb (Prn)) 1 ampul NEB Q2HR NEB PRN PRN Reason: WHEEZING Last Admin: 04/17/18 00:13 Dose: 1 ampul Albuterol (Duoneb Neb (Karla)) 1 ampul NEB Q6HR NEB [facility] Last Admin: 04/18/18 03:40 Dose: Not Given Amiodarone HCl (Cordarone) 400 mg PO Q8HR [facility] Last Admin: 04/18/18 14:42 Dose: 400 mg Aspirin (Aspirin Chew) 81 mg PO DAILY [facility] Last Admin: 04/18/18 09:14 Dose: 81 mg Atorvastatin Calcium (Lipitor) 20 mg PO DAILY [facility] Last Admin: 04/18/18 11:58 Dose: 20 mg Bisacodyl (Dulcolax Supp) 10 mg RECTAL DAILY PRN PRN Reason: SEVERE CONSITIPATION Last Admin: 04/03/18 14:07 Dose: 10 mg Bisacodyl (Dulcolax Ec) 10 mg PO ONCE ONE Last Admin: 03/30/18 17:35 Dose: 10 mg Clopidogrel Bisulfate (Plavix) 75 mg PO DAILY [facility] Last Admin: 04/18/18 09:14 Dose: 75 mg Dextrose (D50w Vial) 50 ml IV.PUSH UNSCH PRN PRN Reason: PER HYPOGLYCEMIA PROTOCOL Last Admin: 04/15/18 22:55 Dose: 50 ml Diltiazem HCl (Cardizem) 30 mg PO QID [facility] Last Admin: 04/15/18 13:21 Dose: Not Given Docusate Sodium (Colace) 100 mg PO BID [facility] Last Admin: 04/18/18 09:15 Dose: 100 mg Glucagon (Glucagon Inj) 1 mg OTHER PRN PRN PRN Reason: for Hypoglycemia Protocol Sodium Chloride (Ns Inj) 1,000 mls @ 84 mls/hr IV.CONT .[id number] [facility] Last Admin: 04/14/18 19:41 Dose: Not Given Sodium Chloride (Ns Inj) 500 mls @ 30 mls/hr IV.SIG .Q10H [facility] Last Admin: 04/14/18 05:34 Dose: Not Given Insulin Aspart (Novolog Insulin Correctional Sugar Inj) 0 unit SQ 02,06,10,14, 18,22 [facility]; Protocol Last Admin: 04/18/18 14:41 Dose: 9 unit Insulin Detemir (Levemir Inj) 10 unit SQ BID [facility] Last Admin: 04/18/18 09:21 Dose: 10 unit Lactulose (Lactulose Liq) 30 ml PO DAILY PRN PRN Reason: SEVERE CONSITIPATION Last Admin: 03/25/18 15:47 Dose: 30 ml Magnesium Oxide (Mag-Ox) 400 mg PO BID [facility] Last Admin: 04/18/18 09:14 Dose: 400 mg Metformin HCl (Glucophage) 1,000 mg PO BID [facility] Last Admin: 04/16/18 10:08 Dose: Not Given Metoprolol Tartrate (Lopressor) 25 mg PO BID [facility] Last Admin: 04/18/18 09:21 Dose: 25 mg Miscellaneous (Pill Splitter) 1 each OTHER UNSCH PRN PRN Reason: PILL SPIT Multivitamins/Minerals (Theragran-M) 1 tab PO DAILY [facility] Last Admin: 04/18/18 09:14 Dose: 1 tab Ondansetron HCl (Zofran Inj) 4 mg IV.PUSH Q6H PRN PRN Reason: NAUSEA OR VOMITING Last Admin: 04/18/18 09:16 Dose: 4 mg Pantoprazole Sodium (Protonix) 40 mg PO DAILY [facility] Last Admin: 04/18/18 09:15 Dose: 40 mg Polyethylene Glycol (Miralax) 17 gm PO DAILY [facility] Last Admin: 04/18/18 09:21 Dose: 17 gm Potassium Chloride (K-Dur) 20 meq PO DAILY [facility] Last Admin: 04/18/18 09:13 Dose: 20 meq Prochlorperazine Edisylate (Compazine Inj) 10 mg IV.PUSH Q6H PRN PRN Reason: NAUSEA Last Admin: 04/13/18 09:26 Dose: 10 mg Senna/Docusate Sodium (Carlotta-Colace) 1 tab PO BID [facility] Last Admin: 04/18/18 09:14 Dose: 1 tab Sennosides (Senokot) 17.2 mg PO Q12H PRN PRN Reason: Moderate Constipation Last Admin: 03/30/18 05:24 Dose: 17.2 mg Sodium Biphosphate/Sodium Phosphate (Fleets Enema (Adult)) 118 ml RECTAL UNSCH PRN PRN Reason: SEE LABEL COMMENTS Sodium Chloride (Ns Flush) 2 ml IV.FLUSH BID [facility] Last Admin: 04/18/18 09:21 Dose: 2 ml Sodium Chloride (Ns Flush) 2 ml IV.FLUSH PRN PRN PRN Reason: FLUSH AFTER USING IV ACCESS Allergies Allergy/AdvReac Type Severity Reaction Status Date / Time No Known Allergies Allergy Verified 03/19/18 10:28 Home Medications Medication Instructions Recorded Confirmed Type atorvastatin 20 mg PO DAILY 03/19/18 03/19/18 History liraglutide [Victoza 2-Sonido] 0.6 mg SUBCUT DAILY 03/19/18 03/19/18 History metformin 1,000 mg PO BID 03/19/18 03/19/18 History omeprazole-sodium bicarbonate 1 cap PO DAILY 03/19/18 03/19/18 History pantoprazole 20 mg PO DAILY 03/19/18 03/19/18 History Physical Exam Vital signs: Vital Signs 04/17/18 19:00 04/17/18 20:00 04/17/18 22:03 Temperature 98.7 F Pulse Rate 81 68 Respiratory Rate 18 14 Blood Pressure 110/65 Pulse Oximetry 95 95 97 04/17/18 22:05 04/17/18 23:00 04/18/18 02:28 Temperature 98.6 F 98.7 F Pulse Rate 80 80 Respiratory Rate 17 18 18 Blood Pressure 104/60 92/55 L Pulse Oximetry 96 99 04/18/18 03:39 04/18/18 07:00 04/18/18 08:00 Temperature Pulse Rate 75 75 75 Respiratory Rate Blood Pressure Pulse Oximetry 98 04/18/18 09:00 04/18/18 09:07 04/18/18 09:43 Temperature 98.7 F Pulse Rate 78 95 H 86 Respiratory Rate 16 18 Blood Pressure 112/56 L Pulse Oximetry 100 04/18/18 10:00 04/18/18 11:00 04/18/18 12:00 Temperature Pulse Rate 80 70 70 Respiratory Rate Blood Pressure Pulse Oximetry 04/18/18 12:02 04/18/18 13:00 Temperature 98.6 F Pulse Rate 71 78 Respiratory Rate 18 Blood Pressure 99/65 L Pulse Oximetry 95 Intake & Output 04/17/18 04/18/18 04/18/18 18:59 06:59 18:59 Intake Total 480 / 480 240 / 240 Output Total 1900 / 1900 1230 / 1230 Balance -1420 / -1420 -990 / -990 Weight 107.5 kg Intake: Oral 480 / 480 240 / 240 Output: Urine Amount (Catheter) 1600 / 1600 1200 / 1200 3-way Urethral 1600 / 1600 1200 / 1200 Chest Tube Drainage 300 / 300 30 / 30 #1Y and #2Y Pleural/Mediastinal 300 / 300 30 / 30 Other: Date of Last Bowel Movement 04/17/18 04/17/18 # Bowel Movements 3 Narrative: GENERAL: NAD, AAOx3 SKIN: Warm and dry. HEAD: Atraumatic. Normocephalic. EYES: Pupils equal and round. No scleral icterus. No injection or drainage. ENT: No nasal bleeding or discharge. Mucous membranes pink and moist. NECK: Trachea midline. No JVD. CARDIOVASCULAR: Regular rate and rhythm. Prevena dressing in place RESPIRATORY: No accessory muscle use. Clear to auscultation. Breath sounds equal bilaterally. GASTROINTESTINAL: Abdomen soft, non-tender, nondistended. Hepatic and splenic margins not palpable. MUSCULOSKELETAL: Extremities without clubbing, cyanosis, or edema. No obvious deformities. NEUROLOGICAL: Awake and alert. No obvious cranial nerve deficits. Motor grossly within normal limits. Five out of 5 muscle strength in the arms and legs. Normal speech. PSYCHIATRIC: Appropriate mood and affect; insight and judgment normal. - Urinary Catheter Management 3-way Urethral Cath placed during this visit: yes Reason for continuing: Hourly intake/output Insertion date: 04/13/18 Insertion time: 00:00 Results 04/18/18 04:37 04/18/18 04:37 Cardiac Enzymes 04/18/18 Range/Units 04:37 AST 44 H (15-37) U/L CBC 04/17/18 04/18/18 Range/Units 04:47 04:37 WBC 11.8 H 8.5 (4.0-11.0) th/mm3 RBC 3.16 L 2.93 L (4.50-5.90) mil/mm3 Hgb 9.1 L 8.8 L (13.0-17.0) gm/dL Hct 28.1 L 26.0 L (39.0-51.0) % Plt Count 286 268 (150-450) th/mm3 Neut # (Auto) 9.0 H (1.8-7.7) th/mm3 Lymph # (Auto) 1.5 (1.0-4.8) th/mm3 [place] # (Auto) 1.1 H (0.0-0.9) th/mm3 Eos # (Auto) 0.0 (0.0-0.4) th/mm3 Baso # (Auto) 0.1 (0.0-0.2) th/mm3 Comprehensive Metabolic Panel 04/17/18 04/18/18 Range/Units 04:47 04:37 Sodium 135 L 137 (136-145) meq/L Potassium 4.6 4.0 (3.5-5.1) meq/L Chloride 100 101 (98-107) meq/L Carbon Dioxide 27.9 31.3 (21.0-32.0) meq/L BUN 14 12 (7-18) mg/dL Creatinine 0.67 0.66 (0.60-1.30) mg/dL Calcium 7.7 L 8.0 L (8.5-10.1) mg/dL AST 44 H (15-37) U/L ALT 31 (12-78) U/L Alkaline Phosphatase 151 H (45-117) U/L Total Protein 5.9 L (6.4-8.2) g/dL Albumin 2.1 L (3.4-5.0) g/dL Intake and Output 04/18/18 04/18/18 04/18/18 06:59 14:59 22:59 Intake Total 240 / 240 Output Total 1230 / 1230 Balance -990 / -990 Intake: Oral 240 / 240 Output: Urine Amount (Catheter) 1200 / 1200 3-way Urethral 1200 / 1200 Chest Tube Drainage 30 #1Y and #2Y Pleural/Mediastinal Other: Date of Last Bowel Movement 04/17/18 Weight 107.5 kg Assessment and Plan - Assessment (1) NSTEMI (non-ST elevated myocardial infarction) Code(s): I21.4 - Non-ST elevation (NSTEMI) myocardial infarction Status: Acute (2) Afib Code(s): I48.91 - Unspecified atrial fibrillation Status: Acute (3) SIRS (systemic inflammatory response syndrome) Code(s): R65.10 - Systemic inflammatory response syndrome (SIRS) of non- infectious origin without acute organ dysfunction Status: Acute (4) Intractable abdominal pain Code(s): R10.9 - Unspecified abdominal pain Status: Acute - Plan 1) Abdominal pain/nausea/emesis Found to have cholecystitis Perc burt drain out when CABG was started RUQ no pain with palpitation Continue to follow LFTs Per surgery, plan for him to follow up outpatient 2) NSTEMI Found to have multivessel CAD CABG x3 THOMAS to LAD SVG to OM SVG to PDA 3) Afib New onset 04/15/18 Cardizem stopped due to being on vasopressor, con't Amiodarone 04/16/18 Converted back to AFib overnight, increase Metoprolol, may need to be started back on Cardizem Eventual anti-coagulation ? Eliquis and stop Plavix 4) Bacteremia KELLY negative for vegetation, no signs of endocarditis 5) Hematuria ASA restarted 6) MRCP showing multiple stones in the common bile duct No further symptoms Most likely passed the stones
--- NOTE | 2018-04-18 15:31 | P.PNCV ---
- Note Subjective/Hospital Course: 67-year-old male who presented to [facility] 03/19/18 due to nausea, vomiting and abdominal pain. He states that he was awakened at 6 a.m. with left -sided flank pain and left mid back pain radiating to the left lower quadrant. He developed nausea and vomiting secondary to the pain. he was incidentally found to have cholecystitis, perc burt tube was placed , Trop was + underwent cardiac cath by Dr Pérez : mid LAD 80%, Left Circ 70 % lesion, RCA 100% occluded in the mid portion with [id number] and right-to- right collaterals supplying the distal portion. Blood cultures grew klebsiella pneumoniae and E coli , followed by ID and recommended to at least complete one week course of IV antibiotics prior to surgery PAST MEDICAL HISTORY: Diabetes, GERD, Hyperlipidemia, morbid obesity with BMI 40, History of gastric bypass. 03/27 pt is pain free at this time , has perc burt drain US of lower ext neg for DVT, Carotid US no stenosis continues on IV antibiotics per ID : VIVIENNE cefepime IV Ceftriaxone IV once a day (stop date: 04/03/2018) after which we will repeat BCX on 04/04/18. If these repeat bcx are negative at 48 hrs and patient clinically doing well will clear him from CABG. VIVIENNE Flagyl consult PT 03/28 pain free will follow / schedule for surgery next week when cleared by ID 03/29 still has some mild right flank pain burt drain in place no chest pain 04/03 c/o of nausea and vomiting since last night , also some abdominal pain for repeat CT abdomen today also repeat Blood cultures pending 04/05 still complaining of nausea and vomiting burt drain in place 04/10 events noted over weekend blood culture neg 04/03 , off all antibiotics still has burt drain , nursing flushing periodically per Uro / will perform bedside cystoscopy at bedside this week / urine has cleared since Heparin vivienne General surgery / will see after 3-4 weeks after CABG to al for cholecystectomy will discuss timing for surgery with Dr Carlin no further complaints of nausea / vomiting 04/11 resting comfortably await bedside cystoscopy/ and clearance from urology then plan for timing of CABG, needs to be placed back on ASA 04/12 cleared by Urology for surgery " s/p bedside [place] cystoscopy did not show any abnormalities within the bladder there were no bladder tumors identified. Retroflex examination of the bladder neck showed an area of friability at the prostate which was most likely the area that was bleeding at the time. per Urology: recommend placement of 3 way scales prior to surgery pt ambulating with walker, no nausea scheduled for surgery on tuesday will need 3 way cath placed by urology on 04/[address] catheter placed by Urology stable for surgery in am 04/14 SURGICAL PROCEDURE 1. Urgent Off-pump Coronary Artery Bypass Grafting x 3 with Left Internal Mammary Artery (THOMAS) to Left Anterior Descending (LAD), reverse saphenous vein graft to obtuse Marginal branch of the left Circumflex artery, reverse saphenous vein graft to the posterior Descending branch of the right Coronary artery 2. Left leg Endoscopic Vein [place] 3. Ultrasound-guided dissection of the LAD 4. Intraoperative Vein Mapping. 04/15 Doing well clinically Weaning [place]-Synephrine drip as tolerated Awaiting LFT results Maintain in ICU Continue chest tube to drainage 04/16 Clinically and hematocrit stable New onset atrial fibrillation last night. Presently in normal sinus rhythm on amiodarone drip Increase beta-janeth to 25 twice daily Okay to transfer to [facility] later today 04/17 converted to NSR transition to po amiodarone leave chest tubes in today / clots / bloody drainage OOB ambulate, gentle diuresis 04/18 converted to NSR, continue amiodarone po f/u labs in am if goes back into afib, will need NOAC chest tube dc without difficulty f/u CXR in am PT/OT eval for transfer to [place] next 24-48hrs Objective: Vital Signs - 24 hr 04/17/18 19:00 04/17/18 20:00 04/17/18 22:03 Temperature 98.7 F Pulse Rate 81 68 Respiratory Rate 18 14 Blood Pressure 110/65 Pulse Oximetry 95 95 97 04/17/18 22:05 04/17/18 23:00 04/18/18 02:28 Temperature 98.6 F 98.7 F Pulse Rate 80 80 Respiratory Rate 17 18 18 Blood Pressure 104/60 92/55 L Pulse Oximetry 96 99 04/18/18 03:39 04/18/18 07:00 04/18/18 08:00 Temperature Pulse Rate 75 75 75 Respiratory Rate Blood Pressure Pulse Oximetry 98 04/18/18 09:00 04/18/18 09:07 04/18/18 09:43 Temperature 98.7 F Pulse Rate 78 95 H 86 Respiratory Rate 16 18 Blood Pressure 112/56 L Pulse Oximetry 100 04/18/18 10:00 04/18/18 11:00 04/18/18 12:00 Temperature Pulse Rate 80 70 70 Respiratory Rate Blood Pressure Pulse Oximetry 04/18/18 12:02 04/18/18 13:00 Temperature 98.6 F Pulse Rate 71 78 Respiratory Rate 18 Blood Pressure 99/65 L Pulse Oximetry 95 GENERAL: A&O x 3 SKIN: Warm and dry. prevena dressing to chest , incision intact to left leg HEAD: Normocephalic. EYES: No scleral icterus. No injection or drainage. NECK: Supple, trachea midline. No JVD or lymphadenopathy. CARDIOVASCULAR: Regular rate and rhythm without murmurs, gallops, or rubs. RESPIRATORY: Breath sounds equal bilaterally. No accessory muscle use. diminished in bases, faint crackles GASTROINTESTINAL: Abdomen soft, non-tender, nondistended. obese MUSCULOSKELETAL: No cyanosis, or edema. BACK: Nontender without obvious deformity. No CVA tenderness. Labs: Laboratory Results - last 12 hr 04/18/18 04/18/18 04/18/18 04:37 04:37 05:06 WBC 8.5 RBC 2.93 L Hgb 8.8 L Hct 26.0 L MCV 88.8 MCH 30.0 MCHC 33.8 RDW 16.3 Plt Count 268 MPV 8.1 Sodium 137 Potassium 4.0 Chloride 101 Carbon Dioxide 31.3 Anion Gap 5 BUN 12 Creatinine 0.66 Estimated GFR Greater than 89 POC Glucose 97 Random Glucose 92 Calcium 8.0 L Total Bilirubin 0.4 AST 44 H ALT 31 Alkaline Phosphatase 151 H Total Protein 5.9 L Albumin 2.1 L 04/18/18 04/18/18 04/18/18 09:55 11:48 14:29 WBC RBC Hgb Hct MCV MCH MCHC RDW Plt Count MPV Sodium Potassium Chloride Carbon Dioxide Anion Gap BUN Creatinine Estimated GFR POC Glucose 323 H 286 H 175 H Random Glucose Calcium Total Bilirubin AST ALT Alkaline Phosphatase Total Protein Albumin Result Diagrams: 04/18/18 04:37 04/18/18 04:37 Telemetry: NSR - Plan (1) Coronary artery disease involving [place] coronary artery Plan: ASA, statin, BB , amiodarone chest tube removed f/u CXR in am pulm toileting nebs, ezpap , acapella OOB/ PT (3) Afib Plan: in NSR > afib transition to po amiodarone (4) Cholecystitis Plan: s/p perc drain / accidentally dislodged general surgery will see outpt 4-6 weeks after surgery to eval for lap burt
[2018-04-19 05:09] LABS: Hematocrit 26.8 % (39.0-51.0); Mean Corpuscular HGB Conc 33.7 % (32.0-36.0); Mean Corpuscular Hemoglobin 29.5 pg (27.0-34.0); Mean Corpuscular Volume 87.7 fL (80.0-100.0); Mean Platelet Volume 8.1 fL (7.0-11.0); Platelet Count 346 th/mm3 (150-450); Red Blood Count 3.05 mil/mm3 (4.50-5.90); Red Cell Distribution Width 16.2 % (11.6-17.2); White Blood Count 9.4 th/mm3 (4.0-11.0)
[2018-04-19 05:38] LABS: Alanine Aminotransferase 38 U/L (12-78); Albumin 2.1 g/dL (3.4-5.0); Anion Gap 6 meq/L (5-15); Aspartate Aminotransferase 50 U/L (15-37); Blood Urea Nitrogen 12 mg/dL (7-18); Calcium 7.8 mg/dL (8.5-10.1); Carbon Dioxide 29.9 meq/L (21.0-32.0); Chloride 102 meq/L (98-107); Glomerular Filtration Rate Greater Than 89 mL/min (>89); Glucose,Random 111 mg/dL (74-106); Magnesium 2.2 mg/dL (1.5-2.5); Potassium 3.6 meq/L (3.5-5.1); Sodium 138 meq/L (136-145)
[2018-04-19 05:40] LABS: Alkaline Phosphatase 158 U/L (45-117); Total Protein 6.3 g/dL (6.4-8.2)
[2018-04-19] MEDS: Amiodarone 200 MG Tablet PO SCH ×2 (06:00→20:43)
--- NOTE | 2018-04-19 06:17 | XR ---
EXAM DATE: 04/19/2018 5:51 AM EST AGE/SEX: 67 years / Male INDICATIONS: Evaluate for pneumothorax. CLINICAL DATA: This is the patient's subsequent encounter. Patient reports that signs and symptoms h ave been present for 1 week and indicates a pain score of Nonresponsive. MEDICAL/SURGICAL HISTORY: . Myocardial infarction. Gastroesophageal reflux disease. Diabetes. . CABG. Gastric bypass. COMPARISON: C, CHEST 1V SINGLE AP, 04/15/2018. . FINDINGS: A single AP view of the chest demonstrates interval removal of the thoracostomy tubes and central reba e. No pneumothorax. There remains bibasilar consolidation more pronounced on the left. This is unchan ged. Heart is mildly enlarged. Median sternotomy wires are noted. CONCLUSION: No pneumothorax following chest tube removal. Persistent bibasilar consolidation. Electronically signed by: Broderick Aiken MD 04/19/2018 6:15 AM EST
[2018-04-19] MEDS: Insulin NovoLOG Aspart Correctional Sugar Inj SQ SCH ×5 (08:04→20:44)
[2018-04-19] MEDS: Polyethylene Glycol 3350 17 GM Packet PO SCH (08:18)
[2018-04-19] MEDS: Senna/Docusate Sodium 8.6/50 MG Tablet PO SCH ×2 (08:19→20:43)
[2018-04-19] MEDS: Magnesium Oxide 400 MG Tablet PO SCH ×2 (08:19→20:44)
[2018-04-19] MEDS: Docusate Sodium 100 MG Capsule PO SCH ×2 (08:19→20:43)
[2018-04-19] MEDS: Metoprolol Tartrate 25 MG Tablet PO SCH ×2 (08:19→20:44)
[2018-04-19] MEDS: Multivitamin/Minerals Therapeutic Tablet PO SCH (08:19)
[2018-04-19] MEDS: Insulin Detemir Inj 1,000 UNIT/10 ML Vial SQ SCH (08:20)
--- NOTE | 2018-04-19 13:22 | P.PNURO ---
Subjective Patient symptoms today: Pt seen and examined. Scales out and voiding. Objective Vital Signs: Vital Signs 04/18/18 14:00 04/18/18 15:00 04/18/18 16:00 Temperature Pulse Rate 80 70 76 Respiratory Rate Blood Pressure Pulse Oximetry 04/18/18 17:00 04/18/18 17:15 04/18/18 17:30 Temperature 97.5 F L Pulse Rate 88 102 H 105 H Respiratory Rate 17 Blood Pressure 86/55 L 91/50 L Pulse Oximetry 95 95 04/18/18 19:00 04/18/18 20:27 04/18/18 23:00 Temperature 99 F Pulse Rate 79 79 65 Respiratory Rate 18 Blood Pressure 120/60 Pulse Oximetry 96 04/19/18 01:00 04/19/18 03:00 04/19/18 04:30 Temperature 98.7 F 97.7 F Pulse Rate 65 97 H 90 Respiratory Rate 16 16 Blood Pressure 90/58 L 124/58 L Pulse Oximetry 96 96 04/19/18 08:00 04/19/18 08:49 04/19/18 08:50 Temperature 98.4 F Pulse Rate 70 Respiratory Rate 16 16 Blood Pressure 106/67 Pulse Oximetry 96 95 04/19/18 09:00 04/19/18 10:00 04/19/18 10:40 Temperature Pulse Rate 68 68 70 Respiratory Rate Blood Pressure Pulse Oximetry 04/19/18 12:00 Temperature 98.2 F Pulse Rate 72 Respiratory Rate 18 Blood Pressure 96/53 L Pulse Oximetry 97 Intake & Output 04/18/18 04/19/18 04/19/18 18:59 06:59 18:59 Intake Total 480 / 480 480 / 480 Output Total 1000 / 1000 550 / 550 Balance -520 / -520 -70 / -70 Weight 105.5 kg Intake: Oral 480 / 480 480 / 480 Output: Urine Amount (Catheter) 1000 / 1000 550 / 550 3-way Urethral 1000 / 1000 550 / 550 Other: Date of Last Bowel Movement 04/17/18 Result Diagrams: 04/19/18 04:48 04/19/18 04:48 Imaging: Impressions Chest X-Ray 04/19/18 06:00 CONCLUSION: No pneumothorax following chest tube removal. Persistent bibasilar consolidation. Medications and IVs: Active Medications Generic Name Dose Route Start Last Admin Trade Name Freq PRN Reason Stop Dose Admin Acetaminophen 650 mg 11/04/18 16:02 03/27/18 09:04 Tylenol PO 650 mg Q4H PRN Administration Temp > 100.4 Hydrocodone Bitart/Acetaminophen 1 tab 04/15/18 11:00 04/19/18 08:18 [place] 5/325 PO 1 tab Q3H PRN Administration PAIN SCALE 1 TO 5 Al Hydroxide/Mg Hydroxide 30 ml 03/19/18 16:02 04/17/18 14:37 Milk Of Magnesia Liq PO 30 ml Q12H PRN Administration Mild Constipation Albuterol 1 ampul 04/14/18 13:33 04/17/18 00:13 Duoneb Neb (Prn) NEB 1 ampul Q2HR NEB PRN Administration WHEEZING Amiodarone HCl 400 mg 04/17/18 14:00 04/19/18 06:00 Cordarone PO 400 mg Q8HR THOMAS Administration Aspirin 81 mg 04/12/18 13:00 04/19/18 08:19 Aspirin Chew PO 81 mg DAILY THOMAS Administration Atorvastatin Calcium 20 mg 03/28/18 09:00 04/19/18 08:19 Lipitor PO 20 mg DAILY THOMAS Administration Bisacodyl 10 mg 03/19/18 16:02 04/03/18 14:07 Dulcolax Supp RECTAL 10 mg DAILY PRN Administration SEVERE CONSITIPATION Bisacodyl 10 mg 03/30/18 17:14 03/30/18 17:35 Dulcolax Ec PO 10 mg ONCE ONE Administration Clopidogrel Bisulfate 75 mg 04/15/18 09:00 04/19/18 08:19 Plavix PO 75 mg DAILY THOMAS Administration Dextrose 50 ml 04/15/18 14:17 04/15/18 22:55 D50w Vial IV.PUSH 50 ml UNSCH PRN Administration PER HYPOGLYCEMIA PROTOCOL Diltiazem HCl 30 mg 03/23/18 13:00 04/15/18 13:21 Cardizem PO Not Given QID THOMAS Docusate Sodium 100 mg 04/16/18 21:00 04/19/18 08:19 Colace PO 100 mg BID THOMAS Administration Furosemide 40 mg 04/19/18 09:00 04/19/18 08:18 Lasix Inj IV.PUSH 40 mg DAILY THOMAS Administration Glucagon 1 mg 04/15/18 14:17 Glucagon Inj OTHER PRN PRN for Hypoglycemia Protocol Sodium Chloride 1,000 mls @ 84 mls/hr 04/07/18 09:54 04/14/18 19:41 Ns Inj IV.CONT Not Given .[id number] THOMAS Sodium Chloride 500 mls @ 30 mls/hr 04/14/18 02:00 04/14/18 05:34 Ns Inj IV.SIG Not Given .Q10H THOMAS Insulin Aspart 0 unit 04/18/18 17:00 04/19/18 11:58 Novolog Insulin Correctional Sugar Inj SQ 24 unit ACHS THOMAS Administration Protocol Insulin Detemir 10 unit 04/17/18 21:00 04/19/18 08:20 Levemir Inj SQ 10 unit BID THOMAS Administration Lactulose 30 ml 03/19/18 16:02 03/25/18 15:47 Lactulose Liq PO 30 ml DAILY PRN Administration SEVERE CONSITIPATION Magnesium Oxide 400 mg 03/22/18 14:45 04/19/18 08:19 Mag-Ox PO 400 mg BID THOMAS Administration Metformin HCl 1,000 mg 03/27/18 21:00 04/16/18 10:08 Glucophage PO Not Given BID THOMAS Metoprolol Tartrate 25 mg 04/16/18 21:00 04/19/18 08:19 Lopressor PO 25 mg BID THOMAS Administration Miscellaneous 1 each 04/15/18 17:21 Pill Splitter OTHER UNSCH PRN PILL SPIT Multivitamins/Minerals 1 tab 04/16/18 09:00 04/19/18 08:19 Theragran-M PO 1 tab DAILY THOMAS Administration Ondansetron HCl 4 mg 04/14/18 13:33 04/19/18 09:42 Zofran Inj IV.PUSH 4 mg Q6H PRN Administration NAUSEA OR VOMITING Pantoprazole Sodium 40 mg 03/19/18 16:15 04/19/18 08:19 Protonix PO 40 mg DAILY THOMAS Administration Polyethylene Glycol 17 gm 04/17/18 09:00 04/19/18 08:18 Miralax PO 17 gm DAILY THOMAS Administration Potassium Chloride 20 meq 03/29/18 09:00 04/19/18 08:19 K-Dur PO 20 meq DAILY THOMAS Administration Prochlorperazine Edisylate 10 mg 04/03/18 17:47 04/13/18 09:26 Compazine Inj IV.PUSH 10 mg Q6H PRN Administration NAUSEA Senna/Docusate Sodium 1 tab 03/19/18 21:00 04/19/18 08:19 Carlotta-Colace PO 1 tab BID THOMAS Administration Sennosides 17.2 mg 03/19/18 16:02 03/30/18 05:24 Senokot PO 17.2 mg Q12H PRN Administration Moderate Constipation Sodium Biphosphate/Sodium Phosphate 118 ml 04/16/18 08:16 Fleets Enema (Adult) RECTAL UNSCH PRN SEE LABEL COMMENTS Sodium Chloride 2 ml 04/12/18 21:00 04/19/18 08:20 Ns Flush IV.FLUSH 2 ml BID THOMAS Administration Sodium Chloride 2 ml 04/12/18 13:15 Ns Flush IV.FLUSH PRN PRN FLUSH AFTER USING IV ACCESS Objective Remarks: Abd:soft,nt,nd Gross hematuria 04/09 Abd:soft,nt,nd Voiding clear urine. 04/10 Abd:soft,nt,nd Voiding clear urine. 04/13 Abd:soft,nt,nd Scales with clear urine upon placement. 04/17/18 Abd:soft,nt,nd Scales with clear urine 04/19/18 Abd:soft,nt,nd Assessment and Plan - Plan 67 y.o male s/p [place] with gross hematuria voiding without clots. US showed normal bladder without mass or clots. Hgb 8.9. Continue IVF; not a good operative candidate Will need cysto in future when medically cleared. 04/09 67 y.o male s/p [place] with gross hematuria. Hematuria has resolved after stopping anticoagulation. Continue IVF; not a good operative candidate Will need cysto prior to CABG to make sure he does not have a bladder tumor that will bleed once heparinized during a CABG. 04/10 67 y.o male s/p [place] with gross hematuria. Hematuria has resolved after stopping anticoagulation. Continue IVF; not a good operative candidate at the present time Will perform cysto this week at bedside. 04/13 67 y.o male s/p [place] with gross hematuria. Hematuria has resolved after stopping anticoagulation. 24F 3Way scales placed without difficulty. For CABG in AM. 04/17/18 Stable s/p CABG with h/o gross hematuria and negative cystoscopy Void trial at primary care team's convenience Monitor urine as anticoagulation medication has been restarted. 04/19/18 Stable s/p CABG with h/o gross hematuria and negative cystoscopy Passed void trial today Continue present care.
[2018-04-19] MEDS ORDERED: Insulin Detemir Inj 1,000 UNIT/10 ML Vial SQ SCH (13:43)
--- NOTE | 2018-04-19 14:23 | P.DS ---
Date of admission: 03/19/18 16:03 Primary care physician: Eusebio Chacko MD Attending physician on discharge: Yanira Carlin Anticipated date of discharge: 04/19/18 Brief History from admission: This is a pleasant 67 y/o Male who was brought in to Emergency Department via EMS for nausea, vomiting, and abdominal pain. The patient was awakened at 6 AM with left-sided flank pain and left mid back pain radiating to the left lower quadrant. The patient then developed nausea and vomiting secondary to the pain. The patient denies any hematuria, dysuria, frequency, or dark colored urine. The pain is described as sharp, stabbing, starting in left flank and radiating to the left lower quadrant. The patient denies any history of nephrolithiasis or diverticulitis, does have a previous history of gastric bypass. The patient denies any fever, chills, or sweats. Symptoms are moderate to severe, there are no current alleviating factors, and there are no known exacerbating factors.as constant pain, 10/10 in intensity stabbing and sharp sensation, on LLQ, non radiated. he has DM II, GERD, Hyperlipidemia. Discussed with ER physician face to face Doctor Jese Espinal appreciated input and recommendations the patient has probable Sepsis has Tachycardia, Leukocytosis and probable focus in his large bowel. he continue with Pain, will cover with Cefepime and Flagyl and follow with GI specialist, following blood cultures. + 7-year-old male who presented to [facility] 03/19/18 due to nausea, vomiting and abdominal pain. He states that he was awakened at 6 a.m. with left -sided flank pain and left mid back pain radiating to the left lower quadrant. He developed nausea and vomiting secondary to the pain. he was incidentally found to have cholecystitis, perc burt tube was placed , Trop was + underwent cardiac cath by Dr Pérez : mid LAD 80%, Left Circ 70 % lesion, RCA 100% occluded in the mid portion with [id number] and right-to- right collaterals supplying the distal portion. Blood cultures grew klebsiella pneumoniae and E coli , followed by ID and recommended to at least complete one week course of IV antibiotics prior to surgery PAST MEDICAL HISTORY: Diabetes, GERD, Hyperlipidemia, morbid obesity with BMI 40, History of gastric bypass. Patient update on day of discharge: pt on nasal cannula no further abdominal pain or nausea scales dc this am , was able to void / no hematuria noted per nursing DS: Diagnosis - Discharge Diagnosis (1) Coronary artery disease involving [place] coronary artery Status: Acute (2) NSTEMI (non-ST elevated myocardial infarction) Status: Acute (3) Afib Status: Acute (4) Cholecystitis Status: Acute (5) S/P CABG (coronary artery bypass graft) Status: Acute DS: Summary Hospital Course: 03/27 pt is pain free at this time , has perc burt drain US of lower ext neg for DVT, Carotid US no stenosis continues on IV antibiotics per ID : VIVIENNE cefepime IV Ceftriaxone IV once a day (stop date: 04/03/2018) after which we will repeat BCX on 04/04/18. If these repeat bcx are negative at 48 hrs and patient clinically doing well will clear him from CABG. VIVIENNE Flagyl consult PT 03/28 pain free will follow / schedule for surgery next week when cleared by ID 03/29 still has some mild right flank pain burt drain in place no chest pain 04/03 c/o of nausea and vomiting since last night , also some abdominal pain for repeat CT abdomen today also repeat Blood cultures pending 04/05 still complaining of nausea and vomiting burt drain in place 04/10 events noted over weekend blood culture neg 04/03 , off all antibiotics still has burt drain , nursing [place] periodically per Uro / will perform bedside cystoscopy at bedside this week / urine has cleared since Heparin dc General surgery / will see after 3-4 weeks after CABG to eval for cholecystectomy will discuss timing for surgery with Dr Carlin no further complaints of nausea / vomiting 04/11 resting comfortably await bedside cystoscopy/ and clearance from urology then plan for timing of CABG, needs to be placed back on ASA 04/12 cleared by Urology for surgery " s/p bedside [place] cystoscopy did not show any abnormalities within the bladder there were no bladder tumors identified. Retroflex examination of the bladder neck showed an area of friability at the prostate which was most likely the area that was bleeding at the time. per Urology: recommend placement of 3 way scales prior to surgery pt ambulating with walker, no nausea scheduled for surgery on tuesday will need 3 way cath placed by urology on 04/[address] catheter placed by Urology stable for surgery in am 04/14 SURGICAL PROCEDURE 1. Urgent Off-pump Coronary Artery Bypass Grafting x 3 with Left Internal Mammary Artery (THOMAS) to Left Anterior Descending (LAD), reverse saphenous vein graft to obtuse Marginal branch of the left Circumflex artery, reverse saphenous vein graft to the posterior Descending branch of the right Coronary artery 2. Left leg Endoscopic Vein Crocker 3. Ultrasound-guided dissection of the LAD 4. Intraoperative Vein Mapping. 04/15 Doing well clinically Weaning [place]-Synephrine drip as tolerated Awaiting LFT results Maintain in ICU Continue chest tube to drainage 04/16 Clinically and hematocrit stable New onset atrial fibrillation last night. Presently in normal sinus rhythm on amiodarone drip Increase beta-janeth to 25 twice daily [facility] today 04/17 converted to NSR transition to po amiodarone leave chest tubes in today / clots / bloody drainage OOB ambulate, gentle diuresis 04/18 converted to NSR, continue amiodarone po f/u labs in am if goes back into afib, will need NOAC chest tube dc without difficulty f/u CXR in am PT/OT eval for transfer to [place] next 24-48hrs 04/19 scales cath dc , was able to void , no hematuria no abdominal pain , no nausea BGM noted, will decrease levemir / change to diabetic diet/ heart healthy / continue sliding scale, add hs snack wean amiodarone - Time Spent with Patient Total time spent providing and/or coordinating discharge services: Greater than 30 minutes - Quality: VTE Deep Vein Thrombosis/Pulmonary Embolism Present on Admission: No Exam Vital signs: Vital Signs 04/18/18 15:00 04/18/18 16:00 04/18/18 17:00 Temperature Pulse Rate 70 76 88 Respiratory Rate Blood Pressure Pulse Oximetry 04/18/18 17:15 04/18/18 17:30 04/18/18 19:00 Temperature 97.5 F L Pulse Rate 102 H 105 H 79 Respiratory Rate 17 Blood Pressure 86/55 L 91/50 L Pulse Oximetry 95 95 04/18/18 20:27 04/18/18 23:00 04/19/18 01:00 Temperature 99 F 98.7 F Pulse Rate 79 65 65 Respiratory Rate 18 16 Blood Pressure 120/60 90/58 L Pulse Oximetry 96 96 04/19/18 03:00 04/19/18 04:30 04/19/18 08:00 Temperature 97.7 F 98.4 F Pulse Rate 97 H 90 70 Respiratory Rate 16 16 Blood Pressure 124/58 L 106/67 Pulse Oximetry 96 96 04/19/18 08:49 04/19/18 08:50 04/19/18 09:00 Temperature Pulse Rate 68 Respiratory Rate 16 Blood Pressure Pulse Oximetry 95 04/19/18 10:00 04/19/18 10:40 04/19/18 12:00 Temperature 98.2 F Pulse Rate 68 70 70 Respiratory Rate 18 Blood Pressure 96/53 L Pulse Oximetry 97 04/19/18 13:00 04/19/18 13:29 Temperature Pulse Rate 68 72 Respiratory Rate Blood Pressure Pulse Oximetry Intake & Output 04/18/18 04/19/18 04/19/18 18:59 06:59 18:59 Intake Total 480 / 480 480 / 480 Output Total 1000 / 1000 550 / 550 Balance -520 / -520 -70 / -70 Weight 105.5 kg Intake: Oral 480 / 480 480 / 480 Output: Urine Amount (Catheter) 1000 / 1000 550 / 550 3-way Urethral 1000 / 1000 550 / 550 Other: Date of Last Bowel Movement 04/17/18 - Constitutional no acute distress - Routine HEENT Exam Head: Present: normocephalic Eye: Present: EOMI, PERRL, normal accommodation - Routine Neck Exam Present: supple, full ROM - Routine Chest/Breast/Axilla Exam Chest wall: Present: tenderness - Routine Respiratory Exam Present: CTA bilaterally - Routine Cardiovascular Exam Present: RRR, S1, S2 - Routine Abdominal Exam Present: soft, normoactive bowel sounds - Routine Extremities Exam Present: pulses intact, normal capillary refill - Routine Skin Exam Present: intact, wounds Comments: prevena dressing to chest , incision intact to left leg - Routine Neurological Exam Present: alert, oriented X3, CN II-XII intact Results Procedures completed during hospitalization: 04/14/2018 CABG 1. Severe Multi Vessel Coronary Artery Disease. 2. Acute Myocardial Infarction (NSTEMI) 3. Acute Cholecystitis s/p percutaneous cholecystostomy tube placement 4. Sepsis and Bacteremia 5. Severe Pulmonary Insufficiency 6. Intramyocardial Coronary Vessels Transesophageal echo 03/21/2018 The left ventricular systolic function is normal with an estimated ejection fraction in the range of 60-65%. [id number] mitral valve regurgitation. Labs on day of discharge: Labs from last 24 hours 04/19/18 04/19/18 04/19/18 11:26 08:04 04:59 WBC RBC Hgb Hct MCV MCH MCHC RDW Plt Count MPV Sodium Potassium Chloride Carbon Dioxide Anion Gap BUN Creatinine Estimated GFR POC Glucose 306 H 90 106 Random Glucose Calcium Phosphorus Magnesium Total Bilirubin AST ALT Alkaline Phosphatase Total Protein Albumin 04/19/18 04/19/18 04/19/18 04:48 04:48 04:36 WBC 9.4 RBC 3.05 L Hgb 9.0 L Hct 26.8 L MCV 87.7 MCH 29.5 MCHC 33.7 RDW 16.2 Plt Count 346 MPV 8.1 Sodium 138 Potassium 3.6 Chloride 102 Carbon Dioxide 29.9 Anion Gap 6 BUN 12 Creatinine 0.62 Estimated GFR Greater than 89 POC Glucose 47 L* Random Glucose 111 H Calcium 7.8 L Phosphorus Magnesium 2.2 Total Bilirubin 0.5 AST 50 H ALT 38 Alkaline Phosphatase 158 H Total Protein 6.3 L Albumin 2.1 L 04/18/18 04/18/18 04/18/18 23:06 17:10 17:00 WBC RBC Hgb Hct MCV MCH MCHC RDW Plt Count MPV Sodium Potassium Chloride Carbon Dioxide Anion Gap BUN Creatinine Estimated GFR POC Glucose 151 H 72 Random Glucose Calcium Phosphorus 2.9 Magnesium Total Bilirubin AST ALT Alkaline Phosphatase Total Protein Albumin 04/18/18 14:29 WBC RBC Hgb Hct MCV MCH MCHC RDW Plt Count MPV Sodium Potassium Chloride Carbon Dioxide Anion Gap BUN Creatinine Estimated GFR POC Glucose 175 H Random Glucose Calcium Phosphorus Magnesium Total Bilirubin AST ALT Alkaline Phosphatase Total Protein Albumin - Impressions ITS Impressions Abdomen/Pelvis CT 03/19/18 10:38 CONCLUSION: 1. Short segmental concentric wall thickening is identified in the distal descending colon. Colon malignancy needs to be excluded. 2. Calcified gallstones with moderate distention of the gallbladder. 3. No other significant abnormality. Chest CTA 03/19/18 13:37 CONCLUSION: 1. No evidence of acute pulmonary embolism. 2. Mild subpleural airspace disease and reticulations which may be chronic. 3. No evidence of segmental or lobar lung consolidation. Abdomen/Pelvis CTA 03/22/18 00:00 CONCLUSION: 1. Prominent gallbladder distention and surrounding inflammatory changes consistent with cholecystitis 2. No acute vascular findings in the abdomen or pelvis. Carotid Doppler Study 03/25/18 12:49 CONCLUSION: 1. Right Internal Carotid Artery: No significant plaque or narrowing. 2. Left Internal Carotid Artery: No significant plaque or narrowing. Lower Extremity Ultrasound 03/25/18 12:49 CONCLUSION: Bilateral greater saphenous vein measurements as above. No acute abnormalities are demonstrated. Venous Doppler Study 03/25/18 12:49 CONCLUSION: Negative study. No venous thrombosis of either lower extremity. Percutaneous Cholangiogram 03/31/18 00:00 CONCLUSION: Uncomplicated percutaneous cholecystostomy as above. Cholangiopancreatography MRI 04/03/18 17:20 CONCLUSION: 1. Numerous filling defects within the central intrahepatic biliary ducts, common hepatic ducts, and common bile ducts. These represent stones and/or thrombus/hemorrhage. The linear defects are more likely related to hemorrhage. 2. Dilatation of the gallbladder with thickened gallbladder wall and a cholecystostomy tube in place. There is heterogeneous material within the gallbladder. Abdomen/Bladder Ultrasound 04/07/18 00:00 CONCLUSION: 1. No findings to account for the patient's hematuria. 2. Nonvisualization of the left kidney. 3. No evidence of hydronephrosis or nephrolithiasis in the right kidney. Chest X-Ray 04/19/18 06:00 CONCLUSION: No pneumothorax following chest tube removal. Persistent bibasilar consolidation. Discharge Plan - Discharge Disposition Patient Disposition: 03 Discharge to SNF - Discharge Condition Condition: Stable - Discharge Order Discharge Orders: Discharge Order (Routine); Ordered 04/19/18 Ordered By: Rachel Whitehead ED Use Only Admit Order (Routine); Ordered 03/19/18 Ordered By: Jese Espinal - Physicians Team Primary Care Provider: Eusebio Chacko Attending Provider: Jaz Agrawal Other Providers: Terrell Tineo MD ; Kimmie Calvo MD ; Catrina Sanchez MD ; yTler Hall MD ; Yanira Carlin MD ; [facility] ; Zhou Wright MD ; Emigdio Villafana DO ; Ravi Mcneill MD
--- NOTE | 2018-04-19 14:36 | P.DS ---
Date of admission: 03/19/18 16:03 Primary care physician: Eusebio Chacko MD Anticipated date of discharge: 04/19/18 Brief History from admission: This is a pleasant 67 y/o Male who was brought in to Emergency Department via EMS for nausea, vomiting, and abdominal pain. The patient was awakened at 6 AM with left-sided flank pain and left mid back pain radiating to the left lower quadrant. The patient then developed nausea and vomiting secondary to the pain. The patient denies any hematuria, dysuria, frequency, or dark colored urine. The pain is described as sharp, stabbing, starting in left flank and radiating to the left lower quadrant. The patient denies any history of nephrolithiasis or diverticulitis, does have a previous history of gastric bypass. The patient denies any fever, chills, or sweats. Symptoms are moderate to severe, there are no current alleviating factors, and there are no known exacerbating factors.as constant pain, 10/10 in intensity stabbing and sharp sensation, on LLQ, non radiated. he has DM II, GERD, Hyperlipidemia. Discussed with ER physician face to face Doctor Jese Espianl appreciated input and recommendations the patient has probable Sepsis has Tachycardia, Leukocytosis and probable focus in his large bowel. he continue with Pain, will cover with Cefepime and Flagyl and follow with GI specialist, following blood cultures. + 7-year-old male who presented to [facility] 03/19/18 due to nausea, vomiting and abdominal pain. He states that he was awakened at 6 a.m. with left -sided flank pain and left mid back pain radiating to the left lower quadrant. He developed nausea and vomiting secondary to the pain. he was incidentally found to have cholecystitis, perc burt tube was placed , Trop was + underwent cardiac cath by Dr Pérez : mid LAD 80%, Left Circ 70 % lesion, RCA 100% occluded in the mid portion with [id number] and right-to- right collaterals supplying the distal portion. Blood cultures grew klebsiella pneumoniae and E coli , followed by ID and recommended to at least complete one week course of IV antibiotics prior to surgery PAST MEDICAL HISTORY: Diabetes, GERD, Hyperlipidemia, morbid obesity with BMI 40, History of gastric bypass. DS: Diagnosis - Discharge Diagnosis (1) Coronary artery disease involving [place] coronary artery Status: Acute (2) S/P CABG (coronary artery bypass graft) Status: Acute DS: Medications - Discharge Medications Prescriptions: furosemide [Lasix] 20 mg PO DAILY #30 tab potassium chloride 8 meq PO DAILY #30 cap DS: Summary Hospital Course: Mr. Bridges is a pleasant 67-year-old male with history of prior gastric bypass who has acute clinical course has been complicated by acute cholecystitis and Klebsiella, E. coli bacteremia requiring a week of IV antibiotics, now complicated by acute non-ST elevation myocardial infarction and underwent urgent off-pump CABG x 3 (THOMAS-->LAD, SVG-->OM, SVG-->PDA) on 04/14. NSTEMI Coronary artery disease -s/p Off-pump CABG (THOMAS-->LAD, SVG-->OM, SVG-->PDA) 04/14/2018 -EF 60-65%, trace to mild MR on KELLY this admission Continue aspirin 81 mg, atorvastatin 20 mg, Plavix 75 mg Continue metoprolol 25 mg twice daily. Continue amiodarone 400 mg p.o. every 8 hours. Atrial fibrillation -currently in normal sinus rhythm. New onset. Patient is currently on beta-janeth as well as amiodarone. May benefit from anticoagulation for 4 weeks. Diabetes mellitus Continue sliding scale insulin as well as Levemir 10 units twice daily. Acute cholecystitis E. coli and Klebsiella bacteremia -resolved General surgery to consider cholecystectomy in the near future. Hematuria Appreciate urology input. Negative cystoscopy. Pavon management per urology recommendations. Full code. Pharmacological DVT prophylaxis after chest tube is discontinued. - Time Spent with Patient Total time spent providing and/or coordinating discharge services: Greater than 30 minutes - Quality: VTE Deep Vein Thrombosis/Pulmonary Embolism Present on Admission: No Exam Vital signs: Vital Signs 04/18/18 15:00 04/18/18 16:00 04/18/18 17:00 Temperature Pulse Rate 70 76 88 Respiratory Rate Blood Pressure Pulse Oximetry 04/18/18 17:15 04/18/18 17:30 04/18/18 19:00 Temperature 97.5 F L Pulse Rate 102 H 105 H 79 Respiratory Rate 17 Blood Pressure 86/55 L 91/50 L Pulse Oximetry 95 95 04/18/18 20:27 04/18/18 23:00 04/19/18 01:00 Temperature 99 F 98.7 F Pulse Rate 79 65 65 Respiratory Rate 18 16 Blood Pressure 120/60 90/58 L Pulse Oximetry 96 96 04/19/18 03:00 04/19/18 04:30 04/19/18 08:00 Temperature 97.7 F 98.4 F Pulse Rate 97 H 90 70 Respiratory Rate 16 16 Blood Pressure 124/58 L 106/67 Pulse Oximetry 96 96 04/19/18 08:49 04/19/18 08:50 04/19/18 09:00 Temperature Pulse Rate 68 Respiratory Rate 16 Blood Pressure Pulse Oximetry 95 04/19/18 10:00 04/19/18 10:40 04/19/18 12:00 Temperature 98.2 F Pulse Rate 68 70 70 Respiratory Rate 18 Blood Pressure 96/53 L Pulse Oximetry 97 04/19/18 13:00 04/19/18 13:29 Temperature Pulse Rate 68 72 Respiratory Rate Blood Pressure Pulse Oximetry Intake & Output 04/18/18 04/19/18 04/19/18 18:59 06:59 18:59 Intake Total 480 / 480 480 / 480 Output Total 1000 / 1000 550 / 550 Balance -520 / -520 -70 / -70 Weight 105.5 kg Intake: Oral 480 / 480 480 / 480 Output: Urine Amount (Catheter) 1000 / 1000 550 / 550 3-way Urethral 1000 / 1000 550 / 550 Other: Date of Last Bowel Movement 04/17/18 Narrative: GENERAL: Alert, NAD. CARDIOVASCULAR: Regular rate and rhythm without murmurs, gallops, or rubs. Chest tube in place. RESPIRATORY: Breath sounds equal bilaterally. No accessory muscle use. GASTROINTESTINAL: Abdomen soft, non-tender, nondistended. MUSCULOSKELETAL: No cyanosis, or edema. Prevana dressing present. SKIN: Warm and dry. NEURO: No focal neurological deficits. Results Procedures completed during hospitalization: 04/14/2018 CABG 1. Severe Multi Vessel Coronary Artery Disease. 2. Acute Myocardial Infarction (NSTEMI) 3. Acute Cholecystitis s/p percutaneous cholecystostomy tube placement 4. Sepsis and Bacteremia 5. Severe Pulmonary Insufficiency 6. Intramyocardial Coronary Vessels Transesophageal echo 03/21/2018 The left ventricular systolic function is normal with an estimated ejection fraction in the range of 60-65%. [id number] mitral valve regurgitation. Labs on day of discharge: Labs from last 24 hours 04/19/18 04/19/18 04/19/18 11:26 08:04 04:59 WBC RBC Hgb Hct MCV MCH MCHC RDW Plt Count MPV Sodium Potassium Chloride Carbon Dioxide Anion Gap BUN Creatinine Estimated GFR POC Glucose 306 H 90 106 Random Glucose Calcium Phosphorus Magnesium Total Bilirubin AST ALT Alkaline Phosphatase Total Protein Albumin 04/19/18 04/19/18 04/19/18 04:48 04:48 04:36 WBC 9.4 RBC 3.05 L Hgb 9.0 L Hct 26.8 L MCV 87.7 MCH 29.5 MCHC 33.7 RDW 16.2 Plt Count 346 MPV 8.1 Sodium 138 Potassium 3.6 Chloride 102 Carbon Dioxide 29.9 Anion Gap 6 BUN 12 Creatinine 0.62 Estimated GFR Greater than 89 POC Glucose 47 L* Random Glucose 111 H Calcium 7.8 L Phosphorus Magnesium 2.2 Total Bilirubin 0.5 AST 50 H ALT 38 Alkaline Phosphatase 158 H Total Protein 6.3 L Albumin 2.1 L 04/18/18 04/18/18 04/18/18 23:06 17:10 17:00 WBC RBC Hgb Hct MCV MCH MCHC RDW Plt Count MPV Sodium Potassium Chloride Carbon Dioxide Anion Gap BUN Creatinine Estimated GFR POC Glucose 151 H 72 Random Glucose Calcium Phosphorus 2.9 Magnesium Total Bilirubin AST ALT Alkaline Phosphatase Total Protein Albumin - Impressions ITS Impressions Abdomen/Pelvis CT 03/19/18 10:38 CONCLUSION: 1. Short segmental concentric wall thickening is identified in the distal descending colon. Colon malignancy needs to be excluded. 2. Calcified gallstones with moderate distention of the gallbladder. 3. No other significant abnormality. Chest CTA 03/19/18 13:37 CONCLUSION: 1. No evidence of acute pulmonary embolism. 2. Mild subpleural airspace disease and reticulations which may be chronic. 3. No evidence of segmental or lobar lung consolidation. Abdomen/Pelvis CTA 03/22/18 00:00 CONCLUSION: 1. Prominent gallbladder distention and surrounding inflammatory changes consistent with cholecystitis 2. No acute vascular findings in the abdomen or pelvis. Carotid Doppler Study 03/25/18 12:49 CONCLUSION: 1. Right Internal Carotid Artery: No significant plaque or narrowing. 2. Left Internal Carotid Artery: No significant plaque or narrowing. Lower Extremity Ultrasound 03/25/18 12:49 CONCLUSION: Bilateral greater saphenous vein measurements as above. No acute abnormalities are demonstrated. Venous Doppler Study 03/25/18 12:49 CONCLUSION: Negative study. No venous thrombosis of either lower extremity. Percutaneous Cholangiogram 03/31/18 00:00 CONCLUSION: Uncomplicated percutaneous cholecystostomy as above. Cholangiopancreatography MRI 04/03/18 17:20 CONCLUSION: 1. Numerous filling defects within the central intrahepatic biliary ducts, common hepatic ducts, and common bile ducts. These represent stones and/or thrombus/hemorrhage. The linear defects are more likely related to hemorrhage. 2. Dilatation of the gallbladder with thickened gallbladder wall and a cholecystostomy tube in place. There is heterogeneous material within the gallbladder. Abdomen/Bladder Ultrasound 04/07/18 00:00 CONCLUSION: 1. No findings to account for the patient's hematuria. 2. Nonvisualization of the left kidney. 3. No evidence of hydronephrosis or nephrolithiasis in the right kidney. Chest X-Ray 04/19/18 06:00 CONCLUSION: No pneumothorax following chest tube removal. Persistent bibasilar consolidation. Discharge Plan - Discharge Disposition Patient Disposition: Discharge to SNF - Discharge Condition Condition: Stable - Discharge Order Discharge Orders: Discharge Order (Routine); Ordered 04/19/18 Ordered By: Rachel Whitehead ED Use Only Admit Order (Routine); Ordered 03/19/18 Ordered By: Jese Espinal - Physicians Team Primary Care Provider: Eusebio Chacko Attending Provider: Jaz Agrawal Other Providers: Terrell Tineo MD ; Kimmie Calvo MD ; Catrina Sanchez MD ; Tyler Hall MD ; Yanira Carlin MD ; [facility] ; Zhou Wright MD ; Emigdio Villafana DO ; Ravi Mcneill MD
[2018-04-19] MEDS: Dextrose 50% in Water 50 ML Vial IV.PUSH PRN (16:09)
[2018-04-19] MEDS ORDERED: Dextrose 50% in Water 50 ML Vial IV.PUSH PRN (16:18)
--- NOTE | 2018-04-19 19:44 | P.PN ---
Subjective Interval history: Follow up for non-STEMI, atrial fibrillation, cholecystitis. The patient is in the chair he appears tired. Says he has chest pain especially when he is coughing. No shortness of breath. No nausea or vomiting able to eat but not much. No fever or chills. Physical Exam Vital signs: Vital Signs 04/18/18 20:27 04/18/18 23:00 04/19/18 01:00 Temperature 99 F 98.7 F Pulse Rate 79 65 65 Respiratory Rate 18 16 Blood Pressure 120/60 90/58 L Pulse Oximetry 96 96 04/19/18 03:00 04/19/18 04:30 04/19/18 08:00 Temperature 97.7 F 98.4 F Pulse Rate 97 H 90 70 Respiratory Rate 16 16 Blood Pressure 124/58 L 106/67 Pulse Oximetry 96 96 04/19/18 08:49 04/19/18 08:50 04/19/18 09:00 Temperature Pulse Rate 68 Respiratory Rate 16 Blood Pressure Pulse Oximetry 95 04/19/18 10:00 04/19/18 10:40 04/19/18 12:00 Temperature 98.2 F Pulse Rate 68 70 70 Respiratory Rate 18 Blood Pressure 96/53 L Pulse Oximetry 97 04/19/18 13:00 04/19/18 13:29 04/19/18 15:00 Temperature Pulse Rate 68 72 66 Respiratory Rate Blood Pressure Pulse Oximetry 04/19/18 16:00 04/19/18 17:00 04/19/18 17:59 Temperature 98.1 F Pulse Rate 72 80 74 Respiratory Rate 18 Blood Pressure 130/62 Pulse Oximetry 95 Intake & Output 04/19/18 04/19/18 04/20/18 06:59 18:59 06:59 Intake Total 480 / 480 960 / 960 Output Total 550 / 550 950 / 950 Balance -70 / -70 10 Weight 105.5 kg Intake: Oral 480 / 480 960 / 960 Output: Urine 150 / 150 Urine Amount (Catheter) 550 / 550 800 / 800 3-way Urethral 550 / 550 800 / 800 Narrative: GENERAL: Pleasant 67-year-old male, alert, appears tired, but in NAD. CARDIOVASCULAR: Regular rate and rhythm without murmurs, gallops, or rubs. Chest tube in place. RESPIRATORY: Breath sounds equal bilaterally. No accessory muscle use. GASTROINTESTINAL: Abdomen soft, non-tender, nondistended. MUSCULOSKELETAL: No cyanosis, or edema. Prevana dressing present. SKIN: Warm and dry. NEURO: No focal neurological deficits. - Urinary Catheter Management 3-way Urethral Cath placed during this visit: yes, but has since been removed by the nurse Reason for continuing: Decision to DC catheter Insertion date: 04/13/18 Insertion time: 00:00 Removal date: 04/19/18 Removal time: 10:30 Results - Labs CBC & Chem 7: 04/19/18 04:48 04/19/18 04:48 Laboratory Results - last 24 hr 04/18/18 04/19/18 04/19/18 23:06 04:36 04:48 WBC 9.4 RBC 3.05 L Hgb 9.0 L Hct 26.8 L MCV 87.7 MCH 29.5 MCHC 33.7 RDW 16.2 Plt Count 346 MPV 8.1 Sodium Potassium Chloride Carbon Dioxide Anion Gap BUN Creatinine Estimated GFR POC Glucose 151 H 47 L* Random Glucose Calcium Magnesium Total Bilirubin AST ALT Alkaline Phosphatase Total Protein Albumin 04/19/18 04/19/18 04/19/18 04:48 04:59 08:04 WBC RBC Hgb Hct MCV MCH MCHC RDW Plt Count MPV Sodium 138 Potassium 3.6 Chloride 102 Carbon Dioxide 29.9 Anion Gap 6 BUN 12 Creatinine 0.62 Estimated GFR Greater than 89 POC Glucose 106 90 Random Glucose 111 H Calcium 7.8 L Magnesium 2.2 Total Bilirubin 0.5 AST 50 H ALT 38 Alkaline Phosphatase 158 H Total Protein 6.3 L Albumin 2.1 L 04/19/18 04/19/18 04/19/18 11:26 15:59 16:13 WBC RBC Hgb Hct MCV MCH MCHC RDW Plt Count MPV Sodium Potassium Chloride Carbon Dioxide Anion Gap BUN Creatinine Estimated GFR POC Glucose 306 H 38 L* 117 H Random Glucose Calcium Magnesium Total Bilirubin AST ALT Alkaline Phosphatase Total Protein Albumin - Imaging Impressions Chest X-Ray 04/19/18 06:00 CONCLUSION: No pneumothorax following chest tube removal. Persistent bibasilar consolidation. Assessment and Plan - Assessment (1) Coronary artery disease involving [place] coronary artery Code(s): I25.10 - Atherosclerotic heart disease of [place] coronary artery without angina pectoris Status: Acute (2) S/P CABG (coronary artery bypass graft) Code(s): Z95.1 - Presence of aortocoronary bypass graft Status: Acute - Plan Mr. Bridges is a pleasant 67-year-old male with history of prior gastric bypass who has acute clinical course has been complicated by acute cholecystitis and Klebsiella, E. coli bacteremia requiring a week of IV antibiotics, now complicated by acute non-ST elevation myocardial infarction and underwent urgent off-pump CABG x 3 (THOMAS-->LAD, SVG-->OM, SVG-->PDA) on 04/14. NSTEMI Coronary artery disease -s/p Off-pump CABG (THOMAS-->LAD, SVG-->OM, SVG-->PDA) 04/14/2018 -EF 60-65%, trace to mild MR on KELLY this admission Continue aspirin 81 mg, atorvastatin 20 mg, Plavix 75 mg Continue metoprolol 25 mg twice daily. Continue amiodarone 400 mg p.o. every 8 hours. Atrial fibrillation -currently in normal sinus rhythm. New onset. Patient is currently on beta-janeth as well as amiodarone. May benefit from anticoagulation for 4 weeks. Diabetes mellitus Continue sliding scale insulin as well as Levemir 10 units twice daily. Acute cholecystitis E. coli and Klebsiella bacteremia -resolved General surgery to consider cholecystectomy in the near future. Hematuria Appreciate urology input. Negative cystoscopy. Pavon management per urology recommendations. Full code. Pharmacological DVT prophylaxis after chest tube is discontinued. Discharge plan. Pending improvement. Patient needs rehab.
--- NOTE | 2018-04-20 00:26 | P.PNCA ---
Subjective Interval history: Feels nauseated, diaphoretic Blood sugar 38, given D50, felt better Medications and Allergies Active Medications: Active Medications Acetaminophen (Tylenol) 650 mg PO Q4H PRN PRN Reason: Temp > 100.4 Last Admin: 03/27/18 09:04 Dose: 650 mg Hydrocodone Bitart/Acetaminophen ([place] 5/325) 1 tab PO Q3H PRN PRN Reason: PAIN SCALE 1 TO 5 Last Admin: 04/19/18 20:44 Dose: 1 tab Al Hydroxide/Mg Hydroxide (Milk Of Magnsofia Liq) 30 ml PO Q12H PRN PRN Reason: Mild Constipation Last Admin: 04/17/18 14:37 Dose: 30 ml Albuterol (Duoneb Neb (Prn)) 1 ampul NEB Q2HR NEB PRN PRN Reason: WHEEZING Last Admin: 04/17/18 00:13 Dose: 1 ampul Amiodarone HCl (Cordarone) 400 mg PO Q12HR COUNT INCLUDES THE [facility] Last Admin: 04/19/18 20:43 Dose: 400 mg Aspirin (Aspirin Chew) 81 mg PO DAILY COUNT INCLUDES THE [facility] Last Admin: 04/19/18 08:19 Dose: 81 mg Atorvastatin Calcium (Lipitor) 20 mg PO DAILY COUNT INCLUDES THE [facility] Last Admin: 04/19/18 08:19 Dose: 20 mg Bisacodyl (Dulcolax Supp) 10 mg RECTAL DAILY PRN PRN Reason: SEVERE CONSITIPATION Last Admin: 04/03/18 14:07 Dose: 10 mg Bisacodyl (Dulcolax Ec) 10 mg PO ONCE ONE Last Admin: 03/30/18 17:35 Dose: 10 mg Clopidogrel Bisulfate (Plavix) 75 mg PO DAILY COUNT INCLUDES THE [facility] Last Admin: 04/19/18 08:19 Dose: 75 mg Dextrose (D50w Vial) 50 ml IV.PUSH UNSCH PRN PRN Reason: PER HYPOGLYCEMIA PROTOCOL Last Admin: 04/19/18 16:09 Dose: 50 ml Diltiazem HCl (Cardizem) 30 mg PO QID COUNT INCLUDES THE [facility] Last Admin: 04/15/18 13:21 Dose: Not Given Docusate Sodium (Colace) 100 mg PO BID COUNT INCLUDES THE [facility] Last Admin: 04/19/18 20:43 Dose: 100 mg Furosemide (Lasix Inj) 40 mg IV.PUSH DAILY COUNT INCLUDES THE [facility] Last Admin: 04/19/18 08:18 Dose: 40 mg Glucagon (Glucagon Inj) 1 mg OTHER PRN PRN PRN Reason: for Hypoglycemia Protocol Sodium Chloride (Ns Inj) 1,000 mls @ 84 mls/hr IV.CONT .[id number] COUNT INCLUDES THE [facility] Last Admin: 04/14/18 19:41 Dose: Not Given Sodium Chloride (Ns Inj) 500 mls @ 30 mls/hr IV.SIG .Q10H COUNT INCLUDES THE [facility] Last Admin: 04/14/18 05:34 Dose: Not Given Insulin Aspart (Novolog Insulin [place] Sugar Inj) 0 unit SQ ACHS AND 3AM THOMAS; Protocol Last Admin: 04/19/18 20:44 Dose: Not Given Lactulose (Lactulose Liq) 30 ml PO DAILY PRN PRN Reason: SEVERE CONSITIPATION Last Admin: 03/25/18 15:47 Dose: 30 ml Magnesium Oxide (Mag-Ox) 400 mg PO BID COUNT INCLUDES THE [facility] Last Admin: 04/19/18 20:44 Dose: 400 mg Metformin HCl (Glucophage) 1,000 mg PO BID COUNT INCLUDES THE [facility] Last Admin: 04/16/18 10:08 Dose: Not Given Metoprolol Tartrate (Lopressor) 25 mg PO BID COUNT INCLUDES THE [facility] Last Admin: 04/19/18 20:44 Dose: 25 mg Miscellaneous (Pill Splitter) 1 each OTHER UNSCH PRN PRN Reason: PILL SPIT Multivitamins/Minerals (Theragran-M) 1 tab PO DAILY COUNT INCLUDES THE [facility] Last Admin: 04/19/18 08:19 Dose: 1 tab Ondansetron HCl (Zofran Inj) 4 mg IV.PUSH Q6H PRN PRN Reason: NAUSEA OR VOMITING Last Admin: 04/19/18 20:43 Dose: 4 mg Pantoprazole Sodium (Protonix) 40 mg PO DAILY COUNT INCLUDES THE [facility] Last Admin: 04/19/18 08:19 Dose: 40 mg Polyethylene Glycol (Miralax) 17 gm PO DAILY COUNT INCLUDES THE [facility] Last Admin: 04/19/18 08:18 Dose: 17 gm Potassium Chloride (K-Dur) 20 meq PO DAILY COUNT INCLUDES THE [facility] Last Admin: 04/19/18 08:19 Dose: 20 meq Prochlorperazine Edisylate (Compazine Inj) 10 mg IV.PUSH Q6H PRN PRN Reason: NAUSEA Last Admin: 04/13/18 09:26 Dose: 10 mg Senna/Docusate Sodium (Carlotta-Colace) 1 tab PO BID COUNT INCLUDES THE [facility] Last Admin: 04/19/18 20:43 Dose: 1 tab Sennosides (Senokot) 17.2 mg PO Q12H PRN PRN Reason: Moderate Constipation Last Admin: 03/30/18 05:24 Dose: 17.2 mg Sodium Biphosphate/Sodium Phosphate (Fleets Enema (Adult)) 118 ml RECTAL UNSCH PRN PRN Reason: SEE LABEL COMMENTS Sodium Chloride (Ns Flush) 2 ml IV.FLUSH BID COUNT INCLUDES THE [facility] Last Admin: 04/19/18 20:44 Dose: 2 ml Sodium Chloride (Ns Flush) 2 ml IV.FLUSH PRN PRN PRN Reason: FLUSH AFTER USING IV ACCESS Allergies Allergy/AdvReac Type Severity Reaction Status Date / Time No Known Allergies Allergy Verified 03/19/18 10:28 Home Medications Medication Instructions Recorded Confirmed Type atorvastatin 20 mg PO DAILY 03/19/18 03/19/18 History liraglutide [Victoza 2-Sonido] 0.6 mg SUBCUT DAILY 03/19/18 03/19/18 History metformin 1,000 mg PO BID 03/19/18 03/19/18 History omeprazole-sodium bicarbonate 1 cap PO DAILY 03/19/18 03/19/18 History pantoprazole 20 mg PO DAILY 03/19/18 03/19/18 History Physical Exam Vital signs: Vital Signs 04/19/18 01:00 04/19/18 03:00 04/19/18 04:30 Temperature 98.7 F 97.7 F Pulse Rate 65 97 H 90 Respiratory Rate 16 16 Blood Pressure 90/58 L 124/58 L Pulse Oximetry 96 96 04/19/18 08:00 04/19/18 08:49 04/19/18 08:50 Temperature 98.4 F Pulse Rate 70 Respiratory Rate 16 16 Blood Pressure 106/67 Pulse Oximetry 96 95 04/19/18 09:00 04/19/18 10:00 04/19/18 10:40 Temperature Pulse Rate 68 68 70 Respiratory Rate Blood Pressure Pulse Oximetry 04/19/18 12:00 04/19/18 13:00 04/19/18 13:29 Temperature 98.2 F Pulse Rate 70 68 72 Respiratory Rate 18 Blood Pressure 96/53 L Pulse Oximetry 97 04/19/18 15:00 04/19/18 16:00 04/19/18 17:00 Temperature 98.1 F Pulse Rate 66 72 80 Respiratory Rate 18 Blood Pressure 130/62 Pulse Oximetry 95 04/19/18 17:59 Temperature Pulse Rate 74 Respiratory Rate Blood Pressure Pulse Oximetry Intake & Output 04/19/18 04/19/18 04/20/18 06:59 18:59 06:59 Intake Total 480 / 480 960 / 960 Output Total 550 / 550 950 / 950 Balance -70 / -70 Weight 105.5 kg Intake: Oral 480 / 480 960 / 960 Output: Urine 150 / 150 Urine Amount (Catheter) 550 / 550 800 / 800 3-way Urethral 550 / 550 800 / 800 Narrative: GENERAL: Pleasant 67-year-old male, alert, appears tired, but in NAD. CARDIOVASCULAR: Regular rate and rhythm without murmurs, gallops, or rubs. Chest tube in place. RESPIRATORY: Breath sounds equal bilaterally. No accessory muscle use. GASTROINTESTINAL: Abdomen soft, non-tender, nondistended. MUSCULOSKELETAL: No cyanosis, or edema. Prevana dressing present. SKIN: Warm and dry. NEURO: No focal neurological deficits. - Urinary Catheter Management 3-way Urethral Cath placed during this visit: yes, but has since been removed by the nurse Reason for continuing: Decision to DC catheter Insertion date: 04/13/18 Insertion time: 00:00 Removal date: 04/19/18 Removal time: 10:30 Results 04/19/18 04:48 04/19/18 04:48 Cardiac Enzymes 04/18/18 04/19/18 Range/Units 04:37 04:48 AST 44 H 50 H (15-37) U/L CBC 04/18/18 04/19/18 Range/Units 04:37 04:48 WBC 8.5 9.4 (4.0-11.0) th/mm3 RBC 2.93 L 3.05 L (4.50-5.90) mil/mm3 Hgb 8.8 L 9.0 L (13.0-17.0) gm/dL Hct 26.0 L 26.8 L (39.0-51.0) % Plt Count 268 346 (150-450) th/mm3 Comprehensive Metabolic Panel 04/18/18 04/19/18 Range/Units 04:37 04:48 Sodium 137 138 (136-145) meq/L Potassium 4.0 3.6 (3.5-5.1) meq/L Chloride 101 102 (98-107) meq/L Carbon Dioxide 31.3 29.9 (21.0-32.0) meq/L BUN 12 12 (7-18) mg/dL Creatinine 0.66 0.62 (0.60-1.30) mg/dL Calcium 8.0 L 7.8 L (8.5-10.1) mg/dL AST 44 H 50 H (15-37) U/L ALT 31 38 (12-78) U/L Alkaline Phosphatase 151 H 158 H (45-117) U/L Total Protein 5.9 L 6.3 L (6.4-8.2) g/dL Albumin 2.1 L 2.1 L (3.4-5.0) g/dL Intake and Output 04/19/18 04/19/18 04/20/18 14:59 22:59 06:59 Intake Total 960 / 960 Output Total 950 / 950 Balance 10 Intake: Oral 960 / 960 Output: Urine 150 / 150 Urine Amount (Catheter) 800 / 800 3-way Urethral 800 / 800 - Imaging and Cardiology Imaging: Impressions Chest X-Ray 04/19/18 06:00 CONCLUSION: No pneumothorax following chest tube removal. Persistent bibasilar consolidation. Assessment and Plan - Assessment (1) NSTEMI (non-ST elevated myocardial infarction) Code(s): I21.4 - Non-ST elevation (NSTEMI) myocardial infarction Status: Acute (2) Afib Code(s): I48.91 - Unspecified atrial fibrillation Status: Acute (3) SIRS (systemic inflammatory response syndrome) Code(s): R65.10 - Systemic inflammatory response syndrome (SIRS) of non- infectious origin without acute organ dysfunction Status: Acute (4) Intractable abdominal pain Code(s): R10.9 - Unspecified abdominal pain Status: Acute - Plan 1) Abdominal pain/nausea/emesis Found to have cholecystitis Perc burt drain out when CABG was started RUQ no pain with palpitation Continue to follow LFTs Per surgery, plan for him to follow up outpatient 2) NSTEMI Found to have multivessel CAD CABG x3 THOMAS to LAD SVG to OM SVG to PDA 3) Afib New onset 04/15/18 Cardizem stopped due to being on vasopressor, con't Amiodarone 04/16/18 Converted back to AFib overnight, increase Metoprolol, may need to be started back on Cardizem Eventual anti-coagulation ? Eliquis and stop Plavix 4) Bacteremia KELLY negative for vegetation, no signs of endocarditis 5) Hematuria ASA restarted 6) MRCP showing multiple stones in the common bile duct No further symptoms Most likely passed the stones
[2018-04-20] MEDS: Insulin NovoLOG Aspart Correctional Sugar Inj SQ SCH ×5 (03:35→21:00)
[2018-04-20] MEDS: Amiodarone 200 MG Tablet PO SCH ×2 (09:52→21:38)
[2018-04-20] MEDS: Magnesium Oxide 400 MG Tablet PO SCH ×2 (09:53→21:38)
[2018-04-20] MEDS: Multivitamin/Minerals Therapeutic Tablet PO SCH (09:54)
[2018-04-20] MEDS: Senna/Docusate Sodium 8.6/50 MG Tablet PO SCH ×2 (09:54→21:39)
[2018-04-20] MEDS: Polyethylene Glycol 3350 17 GM Packet PO SCH (09:55)
[2018-04-20] MEDS: Metoprolol Tartrate 25 MG Tablet PO SCH ×2 (09:55→21:39)
[2018-04-20] MEDS: Docusate Sodium 100 MG Capsule PO SCH ×2 (09:56→21:39)
--- NOTE | 2018-04-20 10:57 | P.PNIM ---
Subjective Interval history: Follow up for non-STEMI, atrial fibrillation, cholecystitis. The patient is in the chair he appears tired. Says he has chest pain especially when he is coughing. No shortness of breath. No nausea or vomiting able to eat but not much. No fever or chills. 12-6 LOOKS BETTER PER RN AND [facility] HOPEFULLY TO [facility] LATER TODAY MEDS ADJUSTED WATCH BLOOD SUGARS Physical Exam Vital signs: Vital Signs 04/19/18 12:00 04/19/18 13:00 04/19/18 13:29 Temperature 98.2 F Pulse Rate 70 68 72 Respiratory Rate 18 Blood Pressure 96/53 L Pulse Oximetry 97 04/19/18 15:00 04/19/18 16:00 04/19/18 17:00 Temperature 98.1 F Pulse Rate 66 72 80 Respiratory Rate 18 Blood Pressure 130/62 Pulse Oximetry 95 04/19/18 17:59 04/19/18 19:00 04/19/18 20:00 Temperature 97.9 F Pulse Rate 74 71 70 Respiratory Rate 20 Blood Pressure 107/56 L Pulse Oximetry 96 04/19/18 21:00 04/19/18 22:00 04/19/18 23:00 Temperature Pulse Rate 62 62 62 Respiratory Rate Blood Pressure Pulse Oximetry 04/20/18 00:00 04/20/18 01:00 04/20/18 02:00 Temperature 97.7 F Pulse Rate 64 68 76 Respiratory Rate 20 Blood Pressure 102/60 Pulse Oximetry 96 04/20/18 03:00 04/20/18 04:00 04/20/18 05:00 Temperature 97.6 F Pulse Rate 73 68 72 Respiratory Rate 20 Blood Pressure 111/63 Pulse Oximetry 95 04/20/18 06:00 04/20/18 09:57 Temperature Pulse Rate 70 Respiratory Rate Blood Pressure Pulse Oximetry 95 Intake & Output 04/19/18 04/20/18 04/20/18 18:59 06:59 18:59 Intake Total 960 / 960 480 / 480 Output Total 950 / 950 400 / 400 Balance 80 / 80 Weight 105 kg Intake: Oral 960 / 960 480 / 480 Output: Urine 150 / 150 400 / 400 Urine Amount (Catheter) 800 / 800 3-way Urethral 800 / 800 Other: Date of Last Bowel Movement 04/20/18 Narrative: GENERAL: Pleasant 67-year-old male, alert, appears tired, but in NAD. CARDIOVASCULAR: Regular rate and rhythm without murmurs, gallops, or rubs. Chest IS DRESSED RESPIRATORY: Breath sounds equal bilaterally. No accessory muscle use. GASTROINTESTINAL: Abdomen soft, non-tender, nondistended. MUSCULOSKELETAL: No cyanosis, or edema. Prevana dressing present. SKIN: Warm and dry. NEURO: No focal neurological deficits. - Urinary Catheter Management 3-way Urethral Cath placed during this visit: yes, but has since been removed by the nurse Reason for continuing: Decision to DC catheter Insertion date: 04/13/18 Insertion time: 00:00 Removal date: 04/19/18 Removal time: 10:30 Results - Labs CBC & Chem 7: 04/19/18 04:48 04/19/18 04:48 Laboratory Results - last 24 hr 04/19/18 04/19/18 04/19/18 11:26 15:59 16:13 POC Glucose 306 H 38 L* 117 H 04/19/18 04/20/18 04/20/18 20:26 03:32 08:38 POC Glucose 140 H 139 H 140 H - Imaging ITS Impressions Abdomen/Pelvis CT 03/19/18 10:38 CONCLUSION: 1. Short segmental concentric wall thickening is identified in the distal descending colon. Colon malignancy needs to be excluded. 2. Calcified gallstones with moderate distention of the gallbladder. 3. No other significant abnormality. Chest CTA 03/19/18 13:37 CONCLUSION: 1. No evidence of acute pulmonary embolism. 2. Mild subpleural airspace disease and reticulations which may be chronic. 3. No evidence of segmental or lobar lung consolidation. Abdomen/Pelvis CTA 03/22/18 00:00 CONCLUSION: 1. Prominent gallbladder distention and surrounding inflammatory changes consistent with cholecystitis 2. No acute vascular findings in the abdomen or pelvis. Carotid Doppler Study 03/25/18 12:49 CONCLUSION: 1. Right Internal Carotid Artery: No significant plaque or narrowing. 2. Left Internal Carotid Artery: No significant plaque or narrowing. Lower Extremity Ultrasound 03/25/18 12:49 CONCLUSION: Bilateral greater saphenous vein measurements as above. No acute abnormalities are demonstrated. Venous Doppler Study 03/25/18 12:49 CONCLUSION: Negative study. No venous thrombosis of either lower extremity. Percutaneous Cholangiogram 03/31/18 00:00 CONCLUSION: Uncomplicated percutaneous cholecystostomy as above. Cholangiopancreatography MRI 04/03/18 17:20 CONCLUSION: 1. Numerous filling defects within the central intrahepatic biliary ducts, common hepatic ducts, and common bile ducts. These represent stones and/or thrombus/hemorrhage. The linear defects are more likely related to hemorrhage. 2. Dilatation of the gallbladder with thickened gallbladder wall and a cholecystostomy tube in place. There is heterogeneous material within the gallbladder. Abdomen/Bladder Ultrasound 04/07/18 00:00 CONCLUSION: 1. No findings to account for the patient's hematuria. 2. Nonvisualization of the left kidney. 3. No evidence of hydronephrosis or nephrolithiasis in the right kidney. Chest X-Ray 04/19/18 06:00 CONCLUSION: No pneumothorax following chest tube removal. Persistent bibasilar consolidation. - Procedures CABG X3 ON 04-14 THOMAS-->LAD, SVG-->OM, SVG-->PDA PREPROCEDURE DIAGNOSES 1. Severe Multi Vessel Coronary Artery Disease. 2. Acute Myocardial Infarction (NSTEMI) 3. Acute Cholecystitis s/p percutaneous cholecystostomy tube placement 4. Sepsis and Bacteremia 5. Severe Pulmonary Insufficiency 6. Intramyocardial Coronary Vessels POSTPROCEDURE DIAGNOSES Same SURGICAL PROCEDURE 1. Urgent Off-pump Coronary Artery Bypass Grafting x 3 with Left Internal Mammary Artery (THOMAS) to Left Anterior Descending (LAD), reverse saphenous vein graft to obtuse Marginal branch of the left Circumflex artery, reverse saphenous vein graft to the posterior Descending branch of the right Coronary artery 2. Left leg Endoscopic Vein [place] 3. Ultrasound-guided dissection of the LAD 4. Intraoperative Vein Mapping. Assessment and Plan - Assessment (1) Coronary artery disease involving [place] coronary artery Code(s): I25.10 - Atherosclerotic heart disease of [place] coronary artery without angina pectoris Status: Acute (2) S/P CABG (coronary artery bypass graft) Code(s): Z95.1 - Presence of aortocoronary bypass graft Status: Acute - Plan Mr. Bridges is a pleasant 67-year-old male with history of prior gastric bypass who has acute clinical course has been complicated by acute cholecystitis and Klebsiella, E. coli bacteremia requiring a week of IV antibiotics, now complicated by acute non-ST elevation myocardial infarction and underwent urgent off-pump CABG x 3 (THOMAS-->LAD, SVG-->OM, SVG-->PDA) on 04/14. NSTEMI Coronary artery disease -s/p Off-pump CABG (THOMAS-->LAD, SVG-->OM, SVG-->PDA) 04/14/2018 -EF 60-65%, trace to mild MR on KELLY this admission Continue aspirin 81 mg, atorvastatin 20 mg, Plavix 75 mg Continue metoprolol 25 mg twice daily. Continue amiodarone 400 mg p.o. every 8 hours. Atrial fibrillation -currently in normal sinus rhythm. New onset. Patient is currently on beta-janeth as well as amiodarone. May benefit from anticoagulation for 4 weeks. Diabetes mellitus Continue sliding scale insulin as well as Levemir 10 units twice daily. Acute cholecystitis E. coli and Klebsiella bacteremia -resolved General surgery to consider cholecystectomy in the near future. Hematuria Appreciate urology input. Negative cystoscopy. [place] management per urology recommendations. Full code. Pharmacological DVT prophylaxis after chest tube is discontinued. Code Status: FULL CODE Discussed Condition With: RN AND CM AND [facility] AND PT Discharge Planning: HOPEFULLY TO [facility] MONITOR BLOOD SUGARS
--- NOTE | 2018-04-20 13:25 | P.PNCV ---
- Note Subjective/Hospital Course: 67-year-old male who presented to [facility] 03/19/18 due to nausea, vomiting and abdominal pain. He states that he was awakened at 6 a.m. with left -sided flank pain and left mid back pain radiating to the left lower quadrant. He developed nausea and vomiting secondary to the pain. he was incidentally found to have cholecystitis, perc burt tube was placed , Trop was + underwent cardiac cath by Dr Pérez : mid LAD 80%, Left Circ 70 % lesion, RCA 100% occluded in the mid portion with [id number] and right-to- right collaterals supplying the distal portion. Blood cultures grew klebsiella pneumoniae and E coli , followed by ID and recommended to at least complete one week course of IV antibiotics prior to surgery PAST MEDICAL HISTORY: Diabetes, GERD, Hyperlipidemia, morbid obesity with BMI 40, History of gastric bypass. 03/27 pt is pain free at this time , has perc burt drain US of lower ext neg for DVT, Carotid US no stenosis continues on IV antibiotics per ID : VIVIENNE cefepime IV Ceftriaxone IV once a day (stop date: 04/03/2018) after which we will repeat BCX on 04/04/18. If these repeat bcx are negative at 48 hrs and patient clinically doing well will clear him from CABG. VIVIENNE Flagyl consult PT 03/28 pain free will follow / schedule for surgery next week when cleared by ID 03/29 still has some mild right flank pain burt drain in place no chest pain 04/03 c/o of nausea and vomiting since last night , also some abdominal pain for repeat CT abdomen today also repeat Blood cultures pending 04/05 still complaining of nausea and vomiting burt drain in place 04/10 events noted over weekend blood culture neg 04/03 , off all antibiotics still has burt drain , nursing flushing periodically per Uro / will perform bedside cystoscopy at bedside this week / urine has cleared since Heparin vivienne General surgery / will see after 3-4 weeks after CABG to al for cholecystectomy will discuss timing for surgery with Dr Carlin no further complaints of nausea / vomiting 04/11 resting comfortably await bedside cystoscopy/ and clearance from urology then plan for timing of CABG, needs to be placed back on ASA 04/12 cleared by Urology for surgery " s/p bedside [place] cystoscopy did not show any abnormalities within the bladder there were no bladder tumors identified. Retroflex examination of the bladder neck showed an area of friability at the prostate which was most likely the area that was bleeding at the time. per Urology: recommend placement of 3 [address] scales prior to surgery pt ambulating with walker, no nausea scheduled for surgery on tuesday will need 3 way cath placed by urology on 04/[address] catheter placed by Urology stable for surgery in am 04/14 SURGICAL PROCEDURE 1. Urgent Off-pump Coronary Artery Bypass Grafting x 3 with Left Internal Mammary Artery (THOMAS) to Left Anterior Descending (LAD), reverse saphenous vein graft to obtuse Marginal branch of the left Circumflex artery, reverse saphenous vein graft to the posterior Descending branch of the right Coronary artery 2. Left leg Endoscopic Vein [place] 3. Ultrasound-guided dissection of the LAD 4. Intraoperative Vein Mapping. 04/15 Doing well clinically Weaning [place]-Synephrine drip as tolerated Awaiting LFT results Maintain in ICU Continue chest tube to drainage 04/16 Clinically and hematocrit stable New onset atrial fibrillation last night. Presently in normal sinus rhythm on amiodarone drip Increase beta-janeth to 25 twice daily Okay to transfer to [facility] later today 04/17 converted to NSR transition to po amiodarone leave chest tubes in today / clots / bloody drainage OOB ambulate, gentle diuresis 04/18 converted to NSR, continue amiodarone po f/u labs in am if goes back into afib, will need NOAC chest tube dc without difficulty f/u CXR in am PT/OT eval for transfer to [place] next 24-48hrs 04/19 discharge summary completed had issues with low blood sugars levemir dc insulin sliding scale dosing decreased 04/20 BGM's improved discussed with Dr Pérez will start eliquis, dc plavix stable to transfer to rehab today Objective: Vital Signs - 24 hr 04/19/18 13:29 04/19/18 15:00 04/19/18 16:00 Temperature 98.1 F Pulse Rate 72 66 72 Respiratory Rate 18 Blood Pressure 130/62 Pulse Oximetry 95 04/19/18 17:00 04/19/18 17:59 04/19/18 19:00 Temperature Pulse Rate 80 74 71 Respiratory Rate Blood Pressure Pulse Oximetry 04/19/18 20:00 04/19/18 21:00 04/19/18 22:00 Temperature 97.9 F Pulse Rate 70 62 62 Respiratory Rate 20 Blood Pressure 107/56 L Pulse Oximetry 96 04/19/18 23:00 04/20/18 00:00 04/20/18 01:00 Temperature 97.7 F Pulse Rate 62 64 68 Respiratory Rate 20 Blood Pressure 102/60 Pulse Oximetry 96 04/20/18 02:00 04/20/18 03:00 04/20/18 04:00 Temperature 97.6 F Pulse Rate 76 73 68 Respiratory Rate 20 Blood Pressure 111/63 Pulse Oximetry 95 04/20/18 05:00 04/20/18 06:00 04/20/18 09:57 Temperature Pulse Rate 72 70 Respiratory Rate Blood Pressure Pulse Oximetry 95 GENERAL: A&O x 3 SKIN: Warm and dry. sternal incision intact and well approximated , left leg incision intact HEAD: Normocephalic. EYES: No scleral icterus. No injection or drainage. NECK: Supple, trachea midline. No JVD or lymphadenopathy. CARDIOVASCULAR: Regular rate and rhythm without murmurs, gallops, or rubs. RESPIRATORY: Breath sounds equal bilaterally. No accessory muscle use. diminished in bases GASTROINTESTINAL: Abdomen soft, non-tender, nondistended. MUSCULOSKELETAL: No cyanosis, or edema. BACK: Nontender without obvious deformity. No CVA tenderness. Labs: Laboratory Results - last 12 hr 04/20/18 04/20/18 04/20/18 03:32 08:38 11:24 POC Glucose 139 H 140 H 222 H Result Diagrams: 04/19/18 04:48 04/19/18 04:48 Telemetry: NSR - Plan (1) Coronary artery disease involving [place] coronary artery Plan: ASA, statin, BB , amiodarone f/u CXR bibasiliar consolidation continue pulm toileting no fevers or leukocytosis pulm toileting nebs, ezpap , acapella OOB/ PT stable to transfer to rehab (3) Afib Plan: in NSR > afib transition to po amiodarone (4) Cholecystitis Plan: s/p perc drain / accidentally dislodged general surgery will see outpt 4-6 weeks after surgery to eval for lap burt
--- NOTE | 2018-04-20 22:26 | P.PNCA ---
Subjective Interval history: No events overnight Feeling better today Medications and Allergies Active Medications: Active Medications Acetaminophen (Tylenol) 650 mg PO Q4H PRN PRN Reason: Temp > 100.4 Last Admin: 03/27/18 09:04 Dose: 650 mg Hydrocodone Bitart/Acetaminophen ([place]ley 5/325) 1 tab PO Q3H PRN PRN Reason: PAIN SCALE 1 TO 5 Last Admin: 04/20/18 21:38 Dose: 1 tab Al Hydroxide/Mg Hydroxide (Milk Of Magnsofia Liq) 30 ml PO Q12H PRN PRN Reason: Mild Constipation Last Admin: 04/17/18 14:37 Dose: 30 ml Albuterol (Duoneb Neb (Prn)) 1 ampul NEB Q2HR NEB PRN PRN Reason: WHEEZING Last Admin: 04/17/18 00:13 Dose: 1 ampul Amiodarone HCl (Cordarone) 400 mg PO Q12HR [facility] Last Admin: 04/20/18 21:38 Dose: 400 mg Apixaban (Eliquis) 5 mg PO BID [facility] Last Admin: 04/20/18 21:38 Dose: 5 mg Aspirin (Aspirin Chew) 81 mg PO DAILY [facility] Last Admin: 04/20/18 09:53 Dose: 81 mg Atorvastatin Calcium (Lipitor) 20 mg PO DAILY [facility] Last Admin: 04/20/18 09:54 Dose: 20 mg Bisacodyl (Dulcolax Supp) 10 mg RECTAL DAILY PRN PRN Reason: SEVERE CONSITIPATION Last Admin: 04/03/18 14:07 Dose: 10 mg Bisacodyl (Dulcolax Ec) 10 mg PO ONCE ONE Last Admin: 03/30/18 17:35 Dose: 10 mg Dextrose (D50w Vial) 50 ml IV.PUSH UNSCH PRN PRN Reason: PER HYPOGLYCEMIA PROTOCOL Last Admin: 04/19/18 16:09 Dose: 50 ml Diltiazem HCl (Cardizem) 30 mg PO QID [facility] Last Admin: 04/15/18 13:21 Dose: Not Given Docusate Sodium (Colace) 100 mg PO BID [facility] Last Admin: 04/20/18 21:39 Dose: Not Given Furosemide (Lasix Inj) 40 mg IV.PUSH DAILY [facility] Last Admin: 04/20/18 09:52 Dose: 40 mg Glucagon (Glucagon Inj) 1 mg OTHER PRN PRN PRN Reason: for Hypoglycemia Protocol Sodium Chloride (Ns Inj) 1,000 mls @ 84 mls/hr IV.CONT .[id number] [facility] Last Admin: 04/14/18 19:41 Dose: Not Given Sodium Chloride (Ns Inj) 500 mls @ 30 mls/hr IV.SIG .Q10H [facility] Last Admin: 04/14/18 05:34 Dose: Not Given Insulin Aspart (Novolog Insulin [place] Sugar Inj) 0 unit SQ ACHS AND 3AM THOMAS; Protocol Last Admin: 04/20/18 17:40 Dose: 7 unit Lactulose (Lactulose Liq) 30 ml PO DAILY PRN PRN Reason: SEVERE CONSITIPATION Last Admin: 03/25/18 15:47 Dose: 30 ml Magnesium Oxide (Mag-Ox) 400 mg PO BID [facility] Last Admin: 04/20/18 21:38 Dose: 400 mg Metformin HCl (Glucophage) 1,000 mg PO BID [facility] Last Admin: 04/16/18 10:08 Dose: Not Given Metoprolol Tartrate (Lopressor) 25 mg PO BID [facility] Last Admin: 04/20/18 21:39 Dose: 25 mg Miscellaneous (Pill Splitter) 1 each OTHER UNSCH PRN PRN Reason: PILL SPIT Multivitamins/Minerals (Theragran-M) 1 tab PO DAILY [facility] Last Admin: 04/20/18 09:54 Dose: 1 tab Ondansetron HCl (Zofran Inj) 4 mg IV.PUSH Q6H PRN PRN Reason: NAUSEA OR VOMITING Last Admin: 04/20/18 09:52 Dose: 4 mg Pantoprazole Sodium (Protonix) 40 mg PO DAILY [facility] Last Admin: 04/20/18 09:54 Dose: 40 mg Polyethylene Glycol (Miralax) 17 gm PO DAILY [facility] Last Admin: 04/20/18 09:55 Dose: Not Given Potassium Chloride (K-Dur) 20 meq PO DAILY [facility] Last Admin: 04/20/18 09:54 Dose: 20 meq Prochlorperazine Edisylate (Compazine Inj) 10 mg IV.PUSH Q6H PRN PRN Reason: NAUSEA Last Admin: 04/13/18 09:26 Dose: 10 mg Senna/Docusate Sodium (Carlotta-Colace) 1 tab PO BID [facility] Last Admin: 04/20/18 21:39 Dose: Not Given Sennosides (Senokot) 17.2 mg PO Q12H PRN PRN Reason: Moderate Constipation Last Admin: 03/30/18 05:24 Dose: 17.2 mg Sodium Biphosphate/Sodium Phosphate (Fleets Enema (Adult)) 118 ml RECTAL UNSCH PRN PRN Reason: SEE LABEL COMMENTS Sodium Chloride (Ns Flush) 2 ml IV.FLUSH BID [facility] Last Admin: 04/20/18 21:39 Dose: 2 ml Sodium Chloride (Ns Flush) 2 ml IV.FLUSH PRN PRN PRN Reason: FLUSH AFTER USING IV ACCESS Allergies Allergy/AdvReac Type Severity Reaction Status Date / Time No Known Allergies Allergy Verified 03/19/18 10:28 Home Medications Medication Instructions Recorded Confirmed Type atorvastatin 20 mg PO DAILY 03/19/18 03/19/18 History liraglutide [Victoza 2-Sonido] 0.6 mg SUBCUT DAILY 03/19/18 03/19/18 History metformin 1,000 mg PO BID 03/19/18 03/19/18 History omeprazole-sodium bicarbonate 1 cap PO DAILY 03/19/18 03/19/18 History pantoprazole 20 mg PO DAILY 03/19/18 03/19/18 History Physical Exam Vital signs: Vital Signs 04/19/18 23:00 04/20/18 00:00 04/20/18 01:00 Temperature 97.7 F Pulse Rate 62 64 68 Respiratory Rate 20 Blood Pressure 102/60 Pulse Oximetry 96 04/20/18 02:00 04/20/18 03:00 04/20/18 04:00 Temperature 97.6 F Pulse Rate 76 73 68 Respiratory Rate 20 Blood Pressure 111/63 Pulse Oximetry 95 04/20/18 05:00 04/20/18 06:00 04/20/18 07:00 Temperature Pulse Rate 72 70 71 Respiratory Rate Blood Pressure Pulse Oximetry 04/20/18 08:00 04/20/18 09:00 04/20/18 09:57 Temperature 97.8 F Pulse Rate 79 82 Respiratory Rate 18 Blood Pressure 97/59 L Pulse Oximetry 95 95 04/20/18 10:00 04/20/18 11:00 04/20/18 12:00 Temperature 97.9 F Pulse Rate 81 82 83 Respiratory Rate 18 Blood Pressure 99/54 L Pulse Oximetry 96 04/20/18 13:00 04/20/18 14:00 04/20/18 15:00 Temperature Pulse Rate 85 89 79 Respiratory Rate Blood Pressure Pulse Oximetry 04/20/18 16:00 04/20/18 17:00 04/20/18 18:00 Temperature 98 F Pulse Rate 82 92 H 84 Respiratory Rate 16 Blood Pressure 95/58 L Pulse Oximetry 94 L 04/20/18 19:50 Temperature Pulse Rate Respiratory Rate Blood Pressure Pulse Oximetry 95 Intake & Output 04/20/18 04/20/18 04/21/18 06:59 18:59 06:59 Intake Total 480 / 480 840 / 840 Output Total 400 / 400 650 / 650 Balance 80 / 80 190 / 190 Weight 105 kg Intake: Oral 480 / 480 840 / 840 Output: Urine 400 / 400 650 / 650 Other: Date of Last Bowel Movement 04/20/18 04/20/18 # Bowel Movements 1 Narrative: GENERAL: Pleasant 67-year-old male, alert, appears tired, but in NAD. CARDIOVASCULAR: Regular rate and rhythm without murmurs, gallops, or rubs. Chest IS DRESSED RESPIRATORY: Breath sounds equal bilaterally. No accessory muscle use. GASTROINTESTINAL: Abdomen soft, non-tender, nondistended. MUSCULOSKELETAL: No cyanosis, or edema. Prevana dressing present. SKIN: Warm and dry. NEURO: No focal neurological deficits. - Urinary Catheter Management 3-way Urethral Cath placed during this visit: yes, but has since been removed by the nurse Reason for continuing: Decision to DC catheter Insertion date: 04/13/18 Insertion time: 00:00 Removal date: 04/19/18 Removal time: 10:30 Results 04/19/18 04:48 04/19/18 04:48 Cardiac Enzymes 04/19/18 Range/Units 04:48 AST 50 H (15-37) U/L CBC 04/19/18 Range/Units 04:48 WBC 9.4 (4.0-11.0) th/mm3 RBC 3.05 L (4.50-5.90) mil/mm3 Hgb 9.0 L (13.0-17.0) gm/dL Hct 26.8 L (39.0-51.0) % Plt Count 346 (150-450) th/mm3 Comprehensive Metabolic Panel 04/19/18 Range/Units 04:48 Sodium 138 (136-145) meq/L Potassium 3.6 (3.5-5.1) meq/L Chloride 102 (98-107) meq/L Carbon Dioxide 29.9 (21.0-32.0) meq/L BUN 12 (7-18) mg/dL Creatinine 0.62 (0.60-1.30) mg/dL Calcium 7.8 L (8.5-10.1) mg/dL AST 50 H (15-37) U/L ALT 38 (12-78) U/L Alkaline Phosphatase 158 H (45-117) U/L Total Protein 6.3 L (6.4-8.2) g/dL Albumin 2.1 L (3.4-5.0) g/dL Intake and Output 04/20/18 04/20/18 04/20/18 06:59 14:59 22:59 Intake Total 480 / 480 840 / 840 Output Total 400 / 400 650 / 650 Balance 80 / 80 190 / 190 Intake: Oral 480 / 480 840 / 840 Output: Urine 400 / 400 650 / 650 Other: Date of Last Bowel Movement 04/20/18 04/20/18 # Bowel Movements 1 Weight 105 kg - Imaging and Cardiology Imaging: Impressions Chest X-Ray 04/19/18 06:00 CONCLUSION: No pneumothorax following chest tube removal. Persistent bibasilar consolidation. Assessment and Plan - Assessment (1) NSTEMI (non-ST elevated myocardial infarction) Code(s): I21.4 - Non-ST elevation (NSTEMI) myocardial infarction Status: Acute (2) Afib Code(s): I48.91 - Unspecified atrial fibrillation Status: Acute (3) SIRS (systemic inflammatory response syndrome) Code(s): R65.10 - Systemic inflammatory response syndrome (SIRS) of non- infectious origin without acute organ dysfunction Status: Acute (4) Intractable abdominal pain Code(s): R10.9 - Unspecified abdominal pain Status: Acute - Plan 1) Abdominal pain/nausea/emesis Found to have cholecystitis Perc burt drain out when CABG was started RUQ no pain with palpitation Continue to follow LFTs Per surgery, plan for him to follow up outpatient 2) NSTEMI Found to have multivessel CAD CABG x3 THOMAS to LAD SVG to OM SVG to PDA 3) Afib New onset 04/15/18 Cardizem stopped due to being on vasopressor, con't Amiodarone 04/16/18 Converted back to AFib overnight, increase Metoprolol, may need to be started back on Cardizem Discussed with CT surgery Placed on Eliquis, will stop Plavix, con't ASA 4) Bacteremia KELLY negative for vegetation, no signs of endocarditis 5) Hematuria ASA restarted 6) MRCP showing multiple stones in the common bile duct No further symptoms Most likely passed the stones
[2018-04-21] MEDS: Insulin NovoLOG Aspart Correctional Sugar Inj SQ SCH ×5 (03:47→20:03)
[2018-04-21 04:36] LABS: Amphetamine Urine With Conf Neg (Neg); Barbiturate Urine With Conf Neg (Neg); Benzodiazepine Urine With Conf Neg (Neg); Cocaine Urine With Conf Neg (Neg)
[2018-04-21 04:45] LABS: Cannabinoid Urine With Conf Neg (Neg); Opiates Urine With Conf Pos (Neg)
[2018-04-21 05:05] LABS: Alanine Aminotransferase 32 U/L (12-78); Albumin 1.9 g/dL (3.4-5.0); Anion Gap 6 meq/L (5-15); Aspartate Aminotransferase 31 U/L (15-37); Blood Urea Nitrogen 16 mg/dL (7-18); Calcium 7.5 mg/dL (8.5-10.1); Carbon Dioxide 32.5 meq/L (21.0-32.0); Chloride 101 meq/L (98-107); Glomerular Filtration Rate Greater Than 89 mL/min (>89); Glucose,Random 123 mg/dL (74-106); Magnesium 2.1 mg/dL (1.5-2.5); Phosphorus 3.1 mg/dL (2.5-4.9); Potassium 4.1 meq/L (3.5-5.1); Sodium 139 meq/L (136-145)
[2018-04-21 05:14] LABS: Alkaline Phosphatase 140 U/L (45-117); Free T4 (Free Thyroxine) 1.37 ng/dL (0.76-1.46); Total Protein 5.9 g/dL (6.4-8.2)
[2018-04-21] MEDS: Amiodarone 200 MG Tablet PO SCH ×2 (09:10→20:03)
[2018-04-21] MEDS: Multivitamin/Minerals Therapeutic Tablet PO SCH ×2 (09:12→09:53)
[2018-04-21] MEDS: Docusate Sodium 100 MG Capsule PO SCH ×2 (09:13→20:03)
[2018-04-21] MEDS: Metoprolol Tartrate 25 MG Tablet PO SCH ×2 (09:13→20:03)
[2018-04-21] MEDS: Polyethylene Glycol 3350 17 GM Packet PO SCH (09:13)
[2018-04-21] MEDS: Magnesium Oxide 400 MG Tablet PO SCH ×3 (09:13→20:03)
[2018-04-21] MEDS: Senna/Docusate Sodium 8.6/50 MG Tablet PO SCH ×3 (09:14→20:03)
[2018-04-21 11:24] LABS: Amylase 60 U/L (25-115); Lipase 174 U/L (73-393)
--- NOTE | 2018-04-21 11:35 | P.PNIM ---
Subjective Interval history: Follow up for non-STEMI, atrial fibrillation, cholecystitis. The patient is in the chair he appears tired. Says he has chest pain especially when he is coughing. No shortness of breath. No nausea or vomiting able to eat but not much. No fever or chills. 12-6 LOOKS BETTER PER RN AND [facility] HOPEFULLY TO [facility] LATER TODAY MEDS ADJUSTED WATCH BLOOD SUGARS 12-7 HAVING NAUSEA AND VOMITING TODAY WILL GET AMYLASE AND LIPASE CONSULT GI AND SURGERY WILL GET KUB AM LABS Physical Exam Vital signs: Vital Signs 04/20/18 12:00 04/20/18 13:00 04/20/18 14:00 Temperature 97.9 F Pulse Rate 83 85 89 Respiratory Rate 18 Blood Pressure 99/54 L Pulse Oximetry 96 04/20/18 15:00 04/20/18 16:00 04/20/18 17:00 Temperature 98 F Pulse Rate 79 82 92 H Respiratory Rate 16 Blood Pressure 95/58 L Pulse Oximetry 94 L 04/20/18 18:00 04/20/18 19:00 04/20/18 19:50 Temperature Pulse Rate 84 72 Respiratory Rate Blood Pressure Pulse Oximetry 95 04/20/18 20:00 04/20/18 21:00 04/20/18 22:00 Temperature 98.0 F Pulse Rate 72 72 64 Respiratory Rate 20 Blood Pressure 117/59 L Pulse Oximetry 96 04/20/18 23:00 04/20/18 23:52 04/21/18 00:00 Temperature 98.2 F Pulse Rate 59 L 60 Respiratory Rate 4 L 20 Blood Pressure 91/54 L Pulse Oximetry 94 L 04/21/18 01:00 04/21/18 02:00 04/21/18 03:00 Temperature Pulse Rate 62 64 68 Respiratory Rate Blood Pressure Pulse Oximetry 04/21/18 04:00 04/21/18 05:00 04/21/18 06:00 Temperature 97.5 F L Pulse Rate 70 70 72 Respiratory Rate 20 Blood Pressure 99/57 L Pulse Oximetry 93 L 04/21/18 07:00 04/21/18 08:00 04/21/18 09:00 Temperature 98.2 F Pulse Rate 81 81 78 Respiratory Rate 18 Blood Pressure 91/51 L Pulse Oximetry 92 L Intake & Output 04/20/18 04/21/18 04/21/18 18:59 06:59 18:59 Intake Total 840 / 840 480 / 480 Output Total 650 / 650 300 / 300 Balance 190 / 190 180 / 180 Weight 106 kg Intake: Oral 840 / 840 480 / 480 Output: Urine 650 / 650 300 / 300 Other: Date of Last Bowel Movement 04/20/18 04/20/18 04/20/18 # Bowel Movements 1 Narrative: GENERAL: Pleasant 67-year-old male, alert, appears tired, but in NAD. CARDIOVASCULAR: Regular rate and rhythm without murmurs, gallops, or rubs. Chest IS DRESSED RESPIRATORY: Breath sounds equal bilaterally. No accessory muscle use. GASTROINTESTINAL: Abdomen soft, non-tender, nondistended. MUSCULOSKELETAL: No cyanosis, or edema. Prevana dressing present. SKIN: Warm and dry. NEURO: No focal neurological deficits. - Urinary Catheter Management 3-way Urethral Cath placed during this visit: yes, but has since been removed by the nurse Reason for continuing: Decision to DC catheter Insertion date: 04/13/18 Insertion time: 00:00 Removal date: 04/19/18 Removal time: 10:30 Results - Labs CBC & Chem 7: 04/19/18 04:48 04/21/18 04:17 Laboratory Results - last 24 hr 04/20/18 04/20/18 04/21/18 17:18 21:37 03:30 Sodium Potassium Chloride Carbon Dioxide Anion Gap BUN Creatinine Estimated GFR POC Glucose 269 H 168 H Random Glucose Calcium Phosphorus Magnesium Total Bilirubin AST ALT Alkaline Phosphatase Total Protein Albumin Amylase Lipase TSH Free T4 Urine Opiates Screen Pos H Ur Barbiturates Screen Neg Ur Amphetamine Screen Neg U Benzodiazepines Scrn Neg Urine Cocaine Screen Neg U Cannabinoids Screen Neg 04/21/18 04/21/18 04/21/18 03:37 04:17 09:06 Sodium 139 Potassium 4.1 Chloride 101 Carbon Dioxide 32.5 H Anion Gap 6 BUN 16 Creatinine 0.80 Estimated GFR Greater than 89 POC Glucose 131 H 158 H Random Glucose 123 H Calcium 7.5 L Phosphorus 3.1 Magnesium 2.1 Total Bilirubin 0.4 AST 31 ALT 32 Alkaline Phosphatase 140 H Total Protein 5.9 L Albumin 1.9 L Amylase Lipase TSH 1.480 Free T4 1.37 Urine Opiates Screen Ur Barbiturates Screen Ur Amphetamine Screen U Benzodiazepines Scrn Urine Cocaine Screen U Cannabinoids Screen 04/21/18 10:47 Sodium Potassium Chloride Carbon Dioxide Anion Gap BUN Creatinine Estimated GFR POC Glucose Random Glucose Calcium Phosphorus Magnesium Total Bilirubin AST ALT Alkaline Phosphatase Total Protein Albumin Amylase 60 Lipase 174 TSH Free T4 Urine Opiates Screen Ur Barbiturates Screen Ur Amphetamine Screen U Benzodiazepines Scrn Urine Cocaine Screen U Cannabinoids Screen - Imaging ITS Impressions Abdomen/Pelvis CT 03/19/18 10:38 CONCLUSION: 1. Short segmental concentric wall thickening is identified in the distal descending colon. Colon malignancy needs to be excluded. 2. Calcified gallstones with moderate distention of the gallbladder. 3. No other significant abnormality. Chest CTA 03/19/18 13:37 CONCLUSION: 1. No evidence of acute pulmonary embolism. 2. Mild subpleural airspace disease and reticulations which may be chronic. 3. No evidence of segmental or lobar lung consolidation. Abdomen/Pelvis CTA 03/22/18 00:00 CONCLUSION: 1. Prominent gallbladder distention and surrounding inflammatory changes consistent with cholecystitis 2. No acute vascular findings in the abdomen or pelvis. Carotid Doppler Study 03/25/18 12:49 CONCLUSION: 1. Right Internal Carotid Artery: No significant plaque or narrowing. 2. Left Internal Carotid Artery: No significant plaque or narrowing. Lower Extremity Ultrasound 03/25/18 12:49 CONCLUSION: Bilateral greater saphenous vein measurements as above. No acute abnormalities are demonstrated. Venous Doppler Study 03/25/18 12:49 CONCLUSION: Negative study. No venous thrombosis of either lower extremity. Percutaneous Cholangiogram 03/31/18 00:00 CONCLUSION: Uncomplicated percutaneous cholecystostomy as above. Cholangiopancreatography MRI 04/03/18 17:20 CONCLUSION: 1. Numerous filling defects within the central intrahepatic biliary ducts, common hepatic ducts, and common bile ducts. These represent stones and/or thrombus/hemorrhage. The linear defects are more likely related to hemorrhage. 2. Dilatation of the gallbladder with thickened gallbladder wall and a cholecystostomy tube in place. There is heterogeneous material within the gallbladder. Abdomen/Bladder Ultrasound 04/07/18 00:00 CONCLUSION: 1. No findings to account for the patient's hematuria. 2. Nonvisualization of the left kidney. 3. No evidence of hydronephrosis or nephrolithiasis in the right kidney. Chest X-Ray 04/19/18 06:00 CONCLUSION: No pneumothorax following chest tube removal. Persistent bibasilar consolidation. - Procedures CABG X3 ON 04-14 THOMAS-->LAD, SVG-->OM, SVG-->PDA PREPROCEDURE DIAGNOSES 1. Severe Multi Vessel Coronary Artery Disease. 2. Acute Myocardial Infarction (NSTEMI) 3. Acute Cholecystitis s/p percutaneous cholecystostomy tube placement 4. Sepsis and Bacteremia 5. Severe Pulmonary Insufficiency 6. Intramyocardial Coronary Vessels POSTPROCEDURE DIAGNOSES Same SURGICAL PROCEDURE 1. Urgent Off-pump Coronary Artery Bypass Grafting x 3 with Left Internal Mammary Artery (THOMAS) to Left Anterior Descending (LAD), reverse saphenous vein graft to obtuse Marginal branch of the left Circumflex artery, reverse saphenous vein graft to the posterior Descending branch of the right Coronary artery 2. Left leg Endoscopic Vein [place] 3. Ultrasound-guided dissection of the LAD 4. Intraoperative Vein Mapping. Assessment and Plan - Assessment (1) Coronary artery disease involving [place] coronary artery Code(s): I25.10 - Atherosclerotic heart disease of [place] coronary artery without angina pectoris Status: Acute (2) S/P CABG (coronary artery bypass graft) Code(s): Z95.1 - Presence of aortocoronary bypass graft Status: Acute - Plan Mr. Bridges is a pleasant 67-year-old male with history of prior gastric bypass who has acute clinical course has been complicated by acute cholecystitis and Klebsiella, E. coli bacteremia requiring a week of IV antibiotics, now complicated by acute non-ST elevation myocardial infarction and underwent urgent off-pump CABG x 3 (THOMAS-->LAD, SVG-->OM, SVG-->PDA) on 04/14. NSTEMI Coronary artery disease -s/p Off-pump CABG (THOMAS-->LAD, SVG-->OM, SVG-->PDA) 04/14/2018 -EF 60-65%, trace to mild MR on KELLY this admission Continue aspirin 81 mg, atorvastatin 20 mg, Plavix 75 mg Continue metoprolol 25 mg twice daily. Continue amiodarone 400 mg p.o. every 8 hours. Atrial fibrillation -currently in normal sinus rhythm. New onset. Patient is currently on beta-janeth as well as amiodarone. May benefit from anticoagulation for 4 weeks. Diabetes mellitus Continue sliding scale insulin as well as Levemir 10 units twice daily. Acute cholecystitis E. coli and Klebsiella bacteremia -resolved General surgery to consider cholecystectomy in the near future. Hematuria Appreciate urology input. Negative cystoscopy. [place] management per urology recommendations. NAUSEA AND VOMITING WILL GET KUB CONSULT GI AND SURGERY HAD BM YESTERDAY WILL CHECK LABS DW RN AND PT AND [facility] Full code. Pharmacological DVT prophylaxis after chest tube is discontinued. Code Status: FULL CODE Discussed Condition With: RN AND PT AND [facility] AND CM Discharge Planning: HOPEFULLY TO [facility] MONITOR BLOOD SUGARS
--- NOTE | 2018-04-21 13:36 | P.PNGS ---
Subjective Interval history: Emesis this AM RUQ tenderness that was resolved is now back Physical Exam Vital signs: Vital Signs 04/20/18 14:00 04/20/18 15:00 04/20/18 16:00 Temperature 98 F Pulse Rate 89 79 82 Respiratory Rate 16 Blood Pressure 95/58 L Pulse Oximetry 94 L 04/20/18 17:00 04/20/18 18:00 04/20/18 19:00 Temperature Pulse Rate 92 H 84 72 Respiratory Rate Blood Pressure Pulse Oximetry 04/20/18 19:50 04/20/18 20:00 04/20/18 21:00 Temperature 98.0 F Pulse Rate 72 72 Respiratory Rate 20 Blood Pressure 117/59 L Pulse Oximetry 95 96 04/20/18 22:00 04/20/18 23:00 04/20/18 23:52 Temperature Pulse Rate 64 59 L Respiratory Rate 4 L Blood Pressure Pulse Oximetry 04/21/18 00:00 04/21/18 01:00 04/21/18 02:00 Temperature 98.2 F Pulse Rate 60 62 64 Respiratory Rate 20 Blood Pressure 91/54 L Pulse Oximetry 94 L 04/21/18 03:00 04/21/18 04:00 04/21/18 05:00 Temperature 97.5 F L Pulse Rate 68 70 70 Respiratory Rate 20 Blood Pressure 99/57 L Pulse Oximetry 93 L 04/21/18 06:00 04/21/18 07:00 04/21/18 08:00 Temperature 98.2 F Pulse Rate 72 81 81 Respiratory Rate 18 Blood Pressure 91/51 L Pulse Oximetry 92 L 04/21/18 09:00 Temperature Pulse Rate 78 Respiratory Rate Blood Pressure Pulse Oximetry Intake & Output 04/20/18 04/21/18 04/21/18 18:59 06:59 18:59 Intake Total 840 / 840 480 / 480 Output Total 650 / 650 300 / 300 Balance 190 / 190 180 / 180 Weight 106 kg Intake: Oral 840 / 840 480 / 480 Output: Urine 650 / 650 300 / 300 Other: Date of Last Bowel Movement 04/20/18 04/20/18 04/20/18 # Bowel Movements 1 Narrative: Alert and awake Sternal incision with Steri Strips RUQ tenderness with palpation - Urinary Catheter Management 3-way Urethral Cath placed during this visit: yes, but has since been removed by the nurse Reason for continuing: Decision to DC catheter Insertion date: 04/13/18 Insertion time: 00:00 Removal date: 04/19/18 Removal time: 10:30 Results - Labs 04/19/18 04:48 04/21/18 04:17 Laboratory Results - last 24 hr 04/20/18 04/20/18 04/21/18 17:18 21:37 03:30 Sodium Potassium Chloride Carbon Dioxide Anion Gap BUN Creatinine Estimated GFR POC Glucose 269 H 168 H Random Glucose Calcium Phosphorus Magnesium Total Bilirubin AST ALT Alkaline Phosphatase Total Protein Albumin Amylase Lipase TSH Free T4 Urine Opiates Screen Pos H Ur Barbiturates Screen Neg Ur Amphetamine Screen Neg U Benzodiazepines Scrn Neg Urine Cocaine Screen Neg U Cannabinoids Screen Neg 04/21/18 04/21/18 04/21/18 03:37 04:17 09:06 Sodium 139 Potassium 4.1 Chloride 101 Carbon Dioxide 32.5 H Anion Gap 6 BUN 16 Creatinine 0.80 Estimated GFR Greater than 89 POC Glucose 131 H 158 H Random Glucose 123 H Calcium 7.5 L Phosphorus 3.1 Magnesium 2.1 Total Bilirubin 0.4 AST 31 ALT 32 Alkaline Phosphatase 140 H Total Protein 5.9 L Albumin 1.9 L Amylase Lipase TSH 1.480 Free T4 1.37 Urine Opiates Screen Ur Barbiturates Screen Ur Amphetamine Screen U Benzodiazepines Scrn Urine Cocaine Screen U Cannabinoids Screen 04/21/18 04/21/18 10:47 12:13 Sodium Potassium Chloride Carbon Dioxide Anion Gap BUN Creatinine Estimated GFR POC Glucose 157 H Random Glucose Calcium Phosphorus Magnesium Total Bilirubin AST ALT Alkaline Phosphatase Total Protein Albumin Amylase 60 Lipase 174 TSH Free T4 Urine Opiates Screen Ur Barbiturates Screen Ur Amphetamine Screen U Benzodiazepines Scrn Urine Cocaine Screen U Cannabinoids Screen - Imaging Imaging: ITS Impressions Abdomen/Pelvis CT 03/19/18 10:38 CONCLUSION: 1. Short segmental concentric wall thickening is identified in the distal descending colon. Colon malignancy needs to be excluded. 2. Calcified gallstones with moderate distention of the gallbladder. 3. No other significant abnormality. Chest CTA 03/19/18 13:37 CONCLUSION: 1. No evidence of acute pulmonary embolism. 2. Mild subpleural airspace disease and reticulations which may be chronic. 3. No evidence of segmental or lobar lung consolidation. Abdomen/Pelvis CTA 03/22/18 00:00 CONCLUSION: 1. Prominent gallbladder distention and surrounding inflammatory changes consistent with cholecystitis 2. No acute vascular findings in the abdomen or pelvis. Carotid Doppler Study 03/25/18 12:49 CONCLUSION: 1. Right Internal Carotid Artery: No significant plaque or narrowing. 2. Left Internal Carotid Artery: No significant plaque or narrowing. Lower Extremity Ultrasound 03/25/18 12:49 CONCLUSION: Bilateral greater saphenous vein measurements as above. No acute abnormalities are demonstrated. Venous Doppler Study 03/25/18 12:49 CONCLUSION: Negative study. No venous thrombosis of either lower extremity. Percutaneous Cholangiogram 03/31/18 00:00 CONCLUSION: Uncomplicated percutaneous cholecystostomy as above. Cholangiopancreatography MRI 04/03/18 17:20 CONCLUSION: 1. Numerous filling defects within the central intrahepatic biliary ducts, common hepatic ducts, and common bile ducts. These represent stones and/or thrombus/hemorrhage. The linear defects are more likely related to hemorrhage. 2. Dilatation of the gallbladder with thickened gallbladder wall and a cholecystostomy tube in place. There is heterogeneous material within the gallbladder. Abdomen/Bladder Ultrasound 04/07/18 00:00 CONCLUSION: 1. No findings to account for the patient's hematuria. 2. Nonvisualization of the left kidney. 3. No evidence of hydronephrosis or nephrolithiasis in the right kidney. Chest X-Ray 04/19/18 06:00 CONCLUSION: No pneumothorax following chest tube removal. Persistent bibasilar consolidation. Assessment and Plan - Assessment (1) Intractable abdominal pain Code(s): R10.9 - Unspecified abdominal pain Status: Acute (2) NSTEMI (non-ST elevated myocardial infarction) Code(s): I21.4 - Non-ST elevation (NSTEMI) myocardial infarction Status: Acute (3) Afib Code(s): I48.91 - Unspecified atrial fibrillation Status: Acute (4) Cholecystitis Code(s): K81.9 - Cholecystitis, unspecified Status: Acute Plan: 67 year old male with afib RVR; s/p cardiac cath; cholecystics -S/p CABG -Emesis and RUQ tenderness has returned -LFTs normal -Will plan for laparoscopic cholecystectomy; possible open; possible IOC on Tuesday after Eliquis has been on hold for 48 hours -Obtain consents -Eliquis okay for today; hold starting Tuesday--- Discussed with Haley SALGADO -Okay for clear liquids is no nausea/vomiting -NPO after MN on Tuesday night -Ikecharleen Patient known to us; as he is on anticoagulant and currently stable, will hold until able to proceed with surgery. This is now considered urgent and needs to be performed during this hospital stay. The exam, history, and the medical decision-making described in the above note were completed with the assistance of the mid-level provider. I reviewed and agree with the findings presented. I attest that I had a [id number] encounter with the patient on the same day, and personally performed and documented my assessment and findings in the medical record.
--- NOTE | 2018-04-21 13:38 | P.PNCV ---
- Note Subjective/Hospital Course: 67-year-old male who presented to [facility] 03/19/18 due to nausea, vomiting and abdominal pain. He states that he was awakened at 6 a.m. with left -sided flank pain and left mid back pain radiating to the left lower quadrant. He developed nausea and vomiting secondary to the pain. he was incidentally found to have cholecystitis, perc burt tube was placed , Trop was + underwent cardiac cath by Dr Pérez : mid LAD 80%, Left Circ 70 % lesion, RCA 100% occluded in the mid portion with [id number] and right-to- right collaterals supplying the distal portion. Blood cultures grew klebsiella pneumoniae and E coli , followed by ID and recommended to at least complete one week course of IV antibiotics prior to surgery PAST MEDICAL HISTORY: Diabetes, GERD, Hyperlipidemia, morbid obesity with BMI 40, History of gastric bypass. 03/27 pt is pain free at this time , has perc burt drain US of lower ext neg for DVT, Carotid US no stenosis continues on IV antibiotics per ID : VIVIENNE cefepime IV Ceftriaxone IV once a day (stop date: 04/03/2018) after which we will repeat BCX on 04/04/18. If these repeat bcx are negative at 48 hrs and patient clinically doing well will clear him from CABG. VIVIENNE Flagyl consult PT 03/28 pain free will follow / schedule for surgery next week when cleared by ID 03/29 still has some mild right flank pain burt drain in place no chest pain 04/03 c/o of nausea and vomiting since last night , also some abdominal pain for repeat CT abdomen today also repeat Blood cultures pending 04/05 still complaining of nausea and vomiting burt drain in place 04/10 events noted over weekend blood culture neg 04/03 , off all antibiotics still has burt drain , nursing flushing periodically per Uro / will perform bedside cystoscopy at bedside this week / urine has cleared since Heparin vivienne General surgery / will see after 3-4 weeks after CABG to al for cholecystectomy will discuss timing for surgery with Dr Carlin no further complaints of nausea / vomiting 04/11 resting comfortably await bedside cystoscopy/ and clearance from urology then plan for timing of CABG, needs to be placed back on ASA 04/12 cleared by Urology for surgery " s/p bedside [place] cystoscopy did not show any abnormalities within the bladder there were no bladder tumors identified. Retroflex examination of the bladder neck showed an area of friability at the prostate which was most likely the area that was bleeding at the time. per Urology: recommend placement of 3 way scales prior to surgery pt ambulating with walker, no nausea scheduled for surgery on tuesday will need 3 way cath placed by urology on 04/[address] catheter placed by Urology stable for surgery in am 04/14 SURGICAL PROCEDURE 1. Urgent Off-pump Coronary Artery Bypass Grafting x 3 with Left Internal Mammary Artery (THOMAS) to Left Anterior Descending (LAD), reverse saphenous vein graft to obtuse Marginal branch of the left Circumflex artery, reverse saphenous vein graft to the posterior Descending branch of the right Coronary artery 2. Left leg Endoscopic Vein [place] 3. Ultrasound-guided dissection of the LAD 4. Intraoperative Vein Mapping. 04/15 Doing well clinically Weaning Jarvis-Synephrine drip as tolerated Awaiting LFT results Maintain in ICU Continue chest tube to drainage 04/16 Clinically and hematocrit stable New onset atrial fibrillation last night. Presently in normal sinus rhythm on amiodarone drip Increase beta-janeth to 25 twice daily Okay to transfer to [facility] later today 04/17 converted to NSR transition to po amiodarone leave chest tubes in today / clots / bloody drainage OOB ambulate, gentle diuresis 04/18 converted to NSR, continue amiodarone po f/u labs in am if goes back into afib, will need NOAC chest tube dc without difficulty f/u CXR in am PT/OT eval for transfer to [place] next 24-48hrs 04/19 discharge summary completed had issues with low blood sugars levemir dc insulin sliding scale dosing decreased 04/20 BGM's improved discussed with Dr Pérez will start eliquis, dc plavix stable to transfer to rehab today 04/21 pt having reoccurring nausea and vomiting with some abdominal discomfort does not feel as well today Dr Hall notified , ok to hold eliquis 48hrs prior to any procedure ok for Graciela nagye per Dr Carlin Objective: Vital Signs - 24 hr 04/20/18 14:00 04/20/18 15:00 04/20/18 16:00 Temperature 98 F Pulse Rate 89 79 82 Respiratory Rate 16 Blood Pressure 95/58 L Pulse Oximetry 94 L 04/20/18 17:00 04/20/18 18:00 04/20/18 19:00 Temperature Pulse Rate 92 H 84 72 Respiratory Rate Blood Pressure Pulse Oximetry 04/20/18 19:50 04/20/18 20:00 04/20/18 21:00 Temperature 98.0 F Pulse Rate 72 72 Respiratory Rate 20 Blood Pressure 117/59 L Pulse Oximetry 95 96 04/20/18 22:00 04/20/18 23:00 04/20/18 23:52 Temperature Pulse Rate 64 59 L Respiratory Rate 4 L Blood Pressure Pulse Oximetry 04/21/18 00:00 04/21/18 01:00 04/21/18 02:00 Temperature 98.2 F Pulse Rate 60 62 64 Respiratory Rate 20 Blood Pressure 91/54 L Pulse Oximetry 94 L 04/21/18 03:00 04/21/18 04:00 04/21/18 05:00 Temperature 97.5 F L Pulse Rate 68 70 70 Respiratory Rate 20 Blood Pressure 99/57 L Pulse Oximetry 93 L 04/21/18 06:00 04/21/18 07:00 04/21/18 08:00 Temperature 98.2 F Pulse Rate 72 81 81 Respiratory Rate 18 Blood Pressure 91/51 L Pulse Oximetry 92 L 04/21/18 09:00 Temperature Pulse Rate 78 Respiratory Rate Blood Pressure Pulse Oximetry GENERAL: A&O x 3 , not feeling as well today SKIN: Warm and dry./ slightly pale / sternal incision intact and well approximated HEAD: Normocephalic. EYES: No scleral icterus. No injection or drainage. NECK: Supple, trachea midline. No JVD or lymphadenopathy. CARDIOVASCULAR: Regular rate and rhythm without murmurs, gallops, or rubs. RESPIRATORY: Breath sounds equal bilaterally. No accessory muscle use. diminished in bases GASTROINTESTINAL: Abdomen soft, mild general tenderness/ + nausea and vomiting MUSCULOSKELETAL: No cyanosis, or edema. BACK: Nontender without obvious deformity. No CVA tenderness. Labs: Laboratory Results - last 12 hr 04/21/18 04/21/18 04/21/18 03:30 03:37 04:17 Sodium 139 Potassium 4.1 Chloride 101 Carbon Dioxide 32.5 H Anion Gap 6 BUN 16 Creatinine 0.80 Estimated GFR Greater than 89 POC Glucose 131 H Random Glucose 123 H Calcium 7.5 L Phosphorus 3.1 Magnesium 2.1 Total Bilirubin 0.4 AST 31 ALT 32 Alkaline Phosphatase 140 H Total Protein 5.9 L Albumin 1.9 L Amylase Lipase TSH 1.480 Free T4 1.37 Urine Opiates Screen Pos H Ur Barbiturates Screen Neg Ur Amphetamine Screen Neg U Benzodiazepines Scrn Neg Urine Cocaine Screen Neg U Cannabinoids Screen Neg 04/21/18 04/21/18 04/21/18 09:06 10:47 12:13 Sodium Potassium Chloride Carbon Dioxide Anion Gap BUN Creatinine Estimated GFR POC Glucose 158 H 157 H Random Glucose Calcium Phosphorus Magnesium Total Bilirubin AST ALT Alkaline Phosphatase Total Protein Albumin Amylase 60 Lipase 174 TSH Free T4 Urine Opiates Screen Ur Barbiturates Screen Ur Amphetamine Screen U Benzodiazepines Scrn Urine Cocaine Screen U Cannabinoids Screen Result Diagrams: 04/19/18 04:48 04/21/18 04:17 - Plan (1) Coronary artery disease involving [place] coronary artery Plan: ASA, statin, BB , amiodarone reoccurring nausea and vomiting / stable LFT pulm toileting nebs, ezpap , acapella OOB/ PT (3) Afib Plan: in NSR > afib transition to po amiodarone (4) Cholecystitis Plan: s/p perc drain / accidentally dislodged general surgery to re-see pt 2/2 re-occurring nausea and vomiting
[2018-04-21 14:03] LABS: Hemoglobin A1c 6.2 % (4.3-6.0)
[2018-04-21] MEDS: Piperacil/Tazo 3.375 GM Premix 50 ML IV.SIG SCH ×2 (15:36→23:15)
--- NOTE | 2018-04-21 17:33 | P.PNCA ---
Subjective Interval history: Abdominal pain with nausea Medications and Allergies Active Medications: Active Medications Acetaminophen (Tylenol) 650 mg PO Q4H PRN PRN Reason: Temp > 100.4 Last Admin: 03/27/18 09:04 Dose: 650 mg Hydrocodone Bitart/Acetaminophen ([place] 5/325) 1 tab PO Q3H PRN PRN Reason: PAIN SCALE 1 TO 5 Last Admin: 04/20/18 21:38 Dose: 1 tab Al Hydroxide/Mg Hydroxide (Milk Of Elier Liwilber) 30 ml PO Q12H PRN PRN Reason: Mild Constipation Last Admin: 04/17/18 14:37 Dose: 30 ml Albuterol (Duoneb Neb (Prn)) 1 ampul NEB Q2HR NEB PRN PRN Reason: WHEEZING Last Admin: 04/17/18 00:13 Dose: 1 ampul Amiodarone HCl (Cordarone) 400 mg PO Q12HR [facility] [place] Last Admin: 04/21/18 09:10 Dose: 400 mg Apixaban (Eliquis) 5 mg PO BID [facility] [place] Last Admin: 04/21/18 09:11 Dose: 5 mg Aspirin (Aspirin Chew) 81 mg PO DAILY [facility] [place] Last Admin: 04/21/18 09:12 Dose: 81 mg Atorvastatin Calcium (Lipitor) 20 mg PO DAILY [facility] [place] Last Admin: 04/21/18 09:52 Dose: Not Given Bisacodyl (Dulcolax Supp) 10 mg RECTAL DAILY PRN PRN Reason: SEVERE CONSITIPATION Last Admin: 04/03/18 14:07 Dose: 10 mg Bisacodyl (Dulcolax Ec) 10 mg PO ONCE ONE Last Admin: 03/30/18 17:35 Dose: 10 mg Dextrose (D50w Vial) 50 ml IV.PUSH UNSCH PRN PRN Reason: PER HYPOGLYCEMIA PROTOCOL Last Admin: 04/19/18 16:09 Dose: 50 ml Diltiazem HCl (Cardizem) 30 mg PO QID [facility] [place] Last Admin: 04/15/18 13:21 Dose: Not Given Docusate Sodium (Colace) 100 mg PO BID [facility] Last Admin: 04/21/18 09:13 Dose: Not Given Glucagon (Glucagon Inj) 1 mg OTHER PRN PRN PRN Reason: for Hypoglycemia Protocol Sodium Chloride (Ns Inj) 1,000 mls @ 84 mls/hr IV.CONT .[id number] [facility] [place] Last Admin: 04/14/18 19:41 Dose: Not Given Sodium Chloride (Ns Inj) 500 mls @ 30 mls/hr IV.SIG .Q10H [facility] [place] Last Admin: 04/14/18 05:34 Dose: Not Given Piperacillin/Tazobactam/Dextrose (Zosyn 3.375 Gm Premix) 50 mls @ 100 mls/hr IV.SIG Q8H [facility] [place] Last Admin: 04/21/18 15:36 Dose: 100 mls/hr Insulin Aspart (Novolog Insulin Correctional Sugar Inj) 0 unit SQ ACHS AND 3AM THOMAS; Protocol Last Admin: 04/21/18 17:01 Dose: 4 unit Lactulose (Lactulose Liq) 30 ml PO DAILY PRN PRN Reason: SEVERE CONSITIPATION Last Admin: 03/25/18 15:47 Dose: 30 ml Magnesium Oxide (Mag-Ox) 400 mg PO BID [facility] [place] Last Admin: 04/21/18 09:49 Dose: Not Given Metformin HCl (Glucophage) 1,000 mg PO BID [facility] [place] Last Admin: 04/16/18 10:08 Dose: Not Given Metoprolol Tartrate (Lopressor) 25 mg PO BID [facility] [place] Last Admin: 04/21/18 09:13 Dose: Not Given Miscellaneous (Pill Splitter) 1 each OTHER UNSCH PRN PRN Reason: PILL SPIT Multivitamins/Minerals (Theragran-M) 1 tab PO DAILY [facility] [place] Last Admin: 04/21/18 09:53 Dose: Not Given Ondansetron HCl (Zofran Inj) 4 mg IV.PUSH Q6H PRN PRN Reason: NAUSEA OR VOMITING Last Admin: 04/21/18 09:10 Dose: 4 mg Pantoprazole Sodium (Protonix) 40 mg PO DAILY [facility] [place] Last Admin: 04/21/18 09:53 Dose: Not Given Polyethylene Glycol (Miralax) 17 gm PO DAILY [facility] [place] Last Admin: 04/21/18 09:13 Dose: Not Given Prochlorperazine Edisylate (Compazine Inj) 10 mg IV.PUSH Q6H PRN PRN Reason: NAUSEA Last Admin: 04/13/18 09:26 Dose: 10 mg Senna/Docusate Sodium (Carlotta-Colace) 1 tab PO BID [facility] [place] Last Admin: 04/21/18 09:53 Dose: Not Given Sennosides (Senokot) 17.2 mg PO Q12H PRN PRN Reason: Moderate Constipation Last Admin: 03/30/18 05:24 Dose: 17.2 mg Sodium Biphosphate/Sodium Phosphate (Fleets Enema (Adult)) 118 ml RECTAL UNSCH PRN PRN Reason: SEE LABEL COMMENTS Sodium Chloride (Ns Flush) 2 ml IV.FLUSH BID THOMAS Last Admin: 04/21/18 09:14 Dose: 2 ml Sodium Chloride (Ns Flush) 2 ml IV.FLUSH PRN PRN PRN Reason: FLUSH AFTER USING IV ACCESS Allergies Allergy/AdvReac Type Severity Reaction Status Date / Time No Known Allergies Allergy Verified 03/19/18 10:28 Home Medications Medication Instructions Recorded Confirmed Type atorvastatin 20 mg PO DAILY 03/19/18 03/19/18 History liraglutide [Victoza 2-Sonido] 0.6 mg SUBCUT DAILY 03/19/18 03/19/18 History metformin 1,000 mg PO BID 03/19/18 03/19/18 History omeprazole-sodium bicarbonate 1 cap PO DAILY 03/19/18 03/19/18 History pantoprazole 20 mg PO DAILY 03/19/18 03/19/18 History Physical Exam Vital signs: Vital Signs 04/20/18 18:00 04/20/18 19:00 04/20/18 19:50 Temperature Pulse Rate 84 72 Respiratory Rate Blood Pressure Pulse Oximetry 95 04/20/18 20:00 04/20/18 21:00 04/20/18 22:00 Temperature 98.0 F Pulse Rate 72 72 64 Respiratory Rate 20 Blood Pressure 117/59 L Pulse Oximetry 96 04/20/18 23:00 04/20/18 23:52 04/21/18 00:00 Temperature 98.2 F Pulse Rate 59 L 60 Respiratory Rate 4 L 20 Blood Pressure 91/54 L Pulse Oximetry 94 L 04/21/18 01:00 04/21/18 02:00 04/21/18 03:00 Temperature Pulse Rate 62 64 68 Respiratory Rate Blood Pressure Pulse Oximetry 04/21/18 04:00 04/21/18 05:00 04/21/18 06:00 Temperature 97.5 F L Pulse Rate 70 70 72 Respiratory Rate 20 Blood Pressure 99/57 L Pulse Oximetry 93 L 04/21/18 07:00 04/21/18 08:00 04/21/18 09:00 Temperature 98.2 F Pulse Rate 81 81 78 Respiratory Rate 18 Blood Pressure 91/51 L Pulse Oximetry 92 L 04/21/18 10:00 04/21/18 11:00 04/21/18 12:00 Temperature 98.1 F Pulse Rate 78 77 78 Respiratory Rate 16 Blood Pressure 116/60 Pulse Oximetry 95 04/21/18 13:00 04/21/18 14:00 04/21/18 15:00 Temperature Pulse Rate 82 92 H 74 Respiratory Rate Blood Pressure Pulse Oximetry 04/21/18 15:10 04/21/18 16:00 Temperature 98 F Pulse Rate 77 Respiratory Rate 16 Blood Pressure 105/59 L Pulse Oximetry 92 L 93 L Intake & Output 04/20/18 04/21/18 04/21/18 18:59 06:59 18:59 Intake Total 840 / 840 480 / 480 Output Total 650 / 650 300 / 300 Balance 190 / 190 180 / 180 Weight 106 kg Intake: Oral 840 / 840 480 / 480 Output: Urine 650 / 650 300 / 300 Other: Date of Last Bowel Movement 04/20/18 04/20/18 04/20/18 # Bowel Movements 1 Narrative: GENERAL: Nauseated, AAOx3 SKIN: Warm and dry. HEAD: Atraumatic. Normocephalic. EYES: Pupils equal and round. No scleral icterus. No injection or drainage. ENT: No nasal bleeding or discharge. Mucous membranes pink and moist. NECK: Trachea midline. No JVD. CARDIOVASCULAR: Regular rate and rhythm. RESPIRATORY: No accessory muscle use. Clear to auscultation. Breath sounds equal bilaterally. GASTROINTESTINAL: Abdomen soft, tender RUQ, nondistended. Hepatic and splenic margins not palpable. MUSCULOSKELETAL: Extremities without clubbing, cyanosis, or edema. No obvious deformities. NEUROLOGICAL: Awake and alert. No obvious cranial nerve deficits. Motor grossly within normal limits. Five out of 5 muscle strength in the arms and legs. Normal speech. PSYCHIATRIC: Appropriate mood and affect; insight and judgment normal. - Urinary Catheter Management 3-way Urethral Cath placed during this visit: yes, but has since been removed by the nurse Reason for continuing: Decision to DC catheter Insertion date: 04/13/18 Insertion time: 00:00 Removal date: 04/19/18 Removal time: 10:30 Results 04/19/18 04:48 04/21/18 04:17 Cardiac Enzymes 04/21/18 Range/Units 04:17 AST 31 (15-37) U/L Comprehensive Metabolic Panel 04/21/18 Range/Units 04:17 Sodium 139 (136-145) meq/L Potassium 4.1 (3.5-5.1) meq/L Chloride 101 (98-107) meq/L Carbon Dioxide 32.5 H (21.0-32.0) meq/L BUN 16 (7-18) mg/dL Creatinine 0.80 (0.60-1.30) mg/dL Calcium 7.5 L (8.5-10.1) mg/dL AST 31 (15-37) U/L ALT 32 (12-78) U/L Alkaline Phosphatase 140 H (45-117) U/L Total Protein 5.9 L (6.4-8.2) g/dL Albumin 1.9 L (3.4-5.0) g/dL Intake and Output 04/21/18 04/21/18 04/21/18 06:59 14:59 22:59 Intake Total 480 / 480 Output Total 300 / 300 Balance 180 / 180 Intake: Oral 480 / 480 Output: Urine 300 / 300 Other: Date of Last Bowel Movement 04/20/18 04/20/18 04/20/18 Weight 106 kg Assessment and Plan - Assessment (1) NSTEMI (non-ST elevated myocardial infarction) Code(s): I21.4 - Non-ST elevation (NSTEMI) myocardial infarction Status: Acute (2) Afib Code(s): I48.91 - Unspecified atrial fibrillation Status: Acute (3) SIRS (systemic inflammatory response syndrome) Code(s): R65.10 - Systemic inflammatory response syndrome (SIRS) of non- infectious origin without acute organ dysfunction Status: Acute (4) Intractable abdominal pain Code(s): R10.9 - Unspecified abdominal pain Status: Acute - Plan 1) Abdominal pain/nausea/emesis Found to have cholecystitis Perc burt drain out when CABG was started RUQ pain back with nausea Surgery to see per CT surgery 2) NSTEMI Found to have multivessel CAD CABG x3 THOMAS to LAD SVG to OM SVG to PDA 3) Afib New onset 04/15/18 Cardizem stopped due to being on vasopressor, con't Amiodarone 04/16/18 Converted back to AFib overnight, increase Metoprolol, may need to be started back on Cardizem Discussed with CT surgery Placed on Eliquis, will stop Plavix, con't ASA 4) Bacteremia KELLY negative for vegetation, no signs of endocarditis 5) Hematuria ASA restarted 6) MRCP showing multiple stones in the common bile duct
--- NOTE | 2018-04-21 17:50 | P.PNGI ---
Subjective Interval history: Sitting up in chair at bedside Reports intermittent nausea No further vomiting Patient is now n.p.o. Physical Exam Vital signs: Vital Signs 04/20/18 18:00 04/20/18 19:00 04/20/18 19:50 Temperature Pulse Rate 84 72 Respiratory Rate Blood Pressure Pulse Oximetry 95 04/20/18 20:00 04/20/18 21:00 04/20/18 22:00 Temperature 98.0 F Pulse Rate 72 72 64 Respiratory Rate 20 Blood Pressure 117/59 L Pulse Oximetry 96 04/20/18 23:00 04/20/18 23:52 04/21/18 00:00 Temperature 98.2 F Pulse Rate 59 L 60 Respiratory Rate 4 L 20 Blood Pressure 91/54 L Pulse Oximetry 94 L 04/21/18 01:00 04/21/18 02:00 04/21/18 03:00 Temperature Pulse Rate 62 64 68 Respiratory Rate Blood Pressure Pulse Oximetry 04/21/18 04:00 04/21/18 05:00 04/21/18 06:00 Temperature 97.5 F L Pulse Rate 70 70 72 Respiratory Rate 20 Blood Pressure 99/57 L Pulse Oximetry 93 L 04/21/18 07:00 04/21/18 08:00 04/21/18 09:00 Temperature 98.2 F Pulse Rate 81 81 78 Respiratory Rate 18 Blood Pressure 91/51 L Pulse Oximetry 92 L 04/21/18 10:00 04/21/18 11:00 04/21/18 12:00 Temperature 98.1 F Pulse Rate 78 77 78 Respiratory Rate 16 Blood Pressure 116/60 Pulse Oximetry 95 04/21/18 13:00 04/21/18 14:00 04/21/18 15:00 Temperature Pulse Rate 82 92 H 74 Respiratory Rate Blood Pressure Pulse Oximetry 04/21/18 15:10 04/21/18 16:00 Temperature 98 F Pulse Rate 77 Respiratory Rate 16 Blood Pressure 105/59 L Pulse Oximetry 92 L 93 L Intake & Output 04/20/18 04/21/18 04/21/18 18:59 06:59 18:59 Intake Total 840 / 840 480 / 480 Output Total 650 / 650 300 / 300 Balance 190 / 190 180 / 180 Weight 106 kg Intake: Oral 840 / 840 480 / 480 Output: Urine 650 / 650 300 / 300 Other: Date of Last Bowel Movement 04/20/18 04/20/18 04/20/18 # Bowel Movements 1 - Constitutional no acute distress, chronically ill appearing - Routine HEENT Exam Head: Present: normocephalic - Routine Respiratory Exam Present: CTA bilaterally. Absent: accessory muscle use - Routine Cardiovascular Exam Present: RRR, S1, S2 Comments: Mid thoracic incision with Steri-Strips in place - Routine Abdominal Exam Present: soft, normoactive bowel sounds. Absent: tenderness, distended - Routine Extremities Exam Absent: edema - Routine Skin Exam Present: dry, warm - Routine Neurological Exam Present: alert - Routine Psychiatric Exam Present: normal affect, cooperative - Urinary Catheter Management 3-way Urethral Cath placed during this visit: yes, but has since been removed by the nurse Reason for continuing: Decision to DC catheter Insertion date: 04/13/18 Insertion time: 00:00 Removal date: 04/19/18 Removal time: 10:30 Results - Labs CBC & Chem 7: 04/19/18 04:48 04/21/18 04:17 Laboratory Results - last 24 hr 04/20/18 04/21/18 04/21/18 21:37 03:30 03:37 Sodium Potassium Chloride Carbon Dioxide Anion Gap BUN Creatinine Estimated GFR POC Glucose 168 H 131 H Random Glucose Hemoglobin A1c Calcium Phosphorus Magnesium Total Bilirubin AST ALT Alkaline Phosphatase Total Protein Albumin Amylase Lipase TSH Free T4 Urine Opiates Screen Pos H Ur Barbiturates Screen Neg Ur Amphetamine Screen Neg U Benzodiazepines Scrn Neg Urine Cocaine Screen Neg U Cannabinoids Screen Neg 04/21/18 04/21/18 04/21/18 04:17 04:17 09:06 Sodium 139 Potassium 4.1 Chloride 101 Carbon Dioxide 32.5 H Anion Gap 6 BUN 16 Creatinine 0.80 Estimated GFR Greater than 89 POC Glucose 158 H Random Glucose 123 H Hemoglobin A1c 6.2 H Calcium 7.5 L Phosphorus 3.1 Magnesium 2.1 Total Bilirubin 0.4 AST 31 ALT 32 Alkaline Phosphatase 140 H Total Protein 5.9 L Albumin 1.9 L Amylase Lipase TSH 1.480 Free T4 1.37 Urine Opiates Screen Ur Barbiturates Screen Ur Amphetamine Screen U Benzodiazepines Scrn Urine Cocaine Screen U Cannabinoids Screen 04/21/18 04/21/18 04/21/18 10:47 12:13 16:50 Sodium Potassium Chloride Carbon Dioxide Anion Gap BUN Creatinine Estimated GFR POC Glucose 157 H 213 H Random Glucose Hemoglobin A1c Calcium Phosphorus Magnesium Total Bilirubin AST ALT Alkaline Phosphatase Total Protein Albumin Amylase 60 Lipase 174 TSH Free T4 Urine Opiates Screen Ur Barbiturates Screen Ur Amphetamine Screen U Benzodiazepines Scrn Urine Cocaine Screen U Cannabinoids Screen - Procedures CABG X3 ON 04-14 THOMAS-->LAD, SVG-->OM, SVG-->PDA PREPROCEDURE DIAGNOSES 1. Severe Multi Vessel Coronary Artery Disease. 2. Acute Myocardial Infarction (NSTEMI) 3. Acute Cholecystitis s/p percutaneous cholecystostomy tube placement 4. Sepsis and Bacteremia 5. Severe Pulmonary Insufficiency 6. Intramyocardial Coronary Vessels POSTPROCEDURE DIAGNOSES Same SURGICAL PROCEDURE 1. Urgent Off-pump Coronary Artery Bypass Grafting x 3 with Left Internal Mammary Artery (THOMAS) to Left Anterior Descending (LAD), reverse saphenous vein graft to obtuse Marginal branch of the left Circumflex artery, reverse saphenous vein graft to the posterior Descending branch of the right Coronary artery 2. Left leg Endoscopic Vein [place] 3. Ultrasound-guided dissection of the LAD 4. Intraoperative Vein Mapping. Assessment and Plan (1) Intractable abdominal pain Status: Acute Code(s): R10.9 - Unspecified abdominal pain - Plan Assessment: - Colon wall thickening- CT abdomen and pelvis (03/19) Short segmental concentric wall thickening is identified in the distal descending colon. Colon malignancy needs to be excluded. Calcified gallstones with moderate distention of the gallbladder. Patient states last EGD/colonoscopy was done in 2006 prior to gastric bypass surgery. Reportedly normal exam. Family history of gastric cancer-he states his brother of gastric cancer at the age of 3838 years old. EGD/colonoscopy recommended when pt is cleared by cardiology and is stable - Acute cholecystitis - CTA abd/pelvis done to rule out mesenteric ischemia yesterday CTA abd/pelvis (03/22) Prominent gallbladder distention and surrounding inflammatory changes consistent with cholecystitis No acute vascular findings in the abdomen or pelvis. Poor surgical candidate, S/P cholecystostomy tube placement by IR. GS following - Klebsiella Pneumoniae bacteremia- ID following to determine etiology. KELLY negative for vegetation. Suspect secondary to acute cholecystitis - A-fib with RVR and elevated troponin- now rate controlled, on Amiodarone gtt, on Heparin- cardiology following (03/24) S/P cardiac cath- multivessel CAD, cardiothoracic surgery has been consulted. Dark bile output from cholecystostomy tube. 03/25/2018, continues with some right-sided abdominal pain around the area of right biliary drainage tube which shows small amount of dark bilious drainage Constipation questionable bowel movement states none in the past 6 days, will review medications Continues with IV fluids at 100 cc an hour. Until cardiothoracic consult and clearance for any further GI workup will follow as needed Hemoglobin stable at 9.8 and WBC count 13 no obvious bleeding 04/04/2018 Our service has been asked to see patient due to increasing liver function tests , possibly passed stone. Cholecystostomy tube in place with scant drainage noted in drainage utility bill collector bag. WBC 15.3 hemoglobin 9.8 hematocrit 30.3 total bilirubin 3.0 AST 228 ALT 170 alk phos 697 04/03/2018 MRCP revealed the following-- 1. Numerous filling defects within the central intrahepatic biliary ducts, common hepatic ducts, and common bile ducts. These represent stones and/or thrombus/hemorrhage. The linear defects are more likely related to hemorrhage. 2. Dilatation of the gallbladder with thickened gallbladder wall and a cholecystostomy tube in place. There is heterogeneous material within the gallbladder. 04/07/2018 Consultation to IR for evaluation of cholecystostomy tube. As per my discussion with Dr. Ramos, intervention to evaluate for patency of cholecystostomy tube not indicated at this time as drainage under previous evaluation noted to be "honey thick". WBC 11.8 hemoglobin 8.9 hematocrit 26.6 platelet count 411 total bilirubin 0.6 AST 65 ALT 80 alk phos 456 all trending down Patient afebrile at 98.4 04/08/2018 Patient up to bedside, reports feeling much better today. Denies any noted bleeding. No obvious bleeding reported. Cholecystostomy tube with drainage bag. No drainage noted. No new labs today. Patient afebrile at 98 F 04/21/2018 Patient up to bedside chair. N.p.o. status as per surgery Patient endorses intermittent nausea. No further vomiting today, emesis this a.m. Patient endorsing right upper quadrant tenderness on exam. 04/19/2018 WBC 9.4 hemoglobin 9.0 hematocrit 26.8 Plan -N.p.o. -Clear liquids as per surgery if no nausea vomiting -Monitor labs -Antiemetics as per attending -PPI -General surgery following -Plan for laparoscopic cholecystectomy on Tuesday -Supportive care -GI will sign off at this time, please notify for further needs This patient has been seen by myself and Dr. Grey and this note is written on his behalf - Attending Attestation jonah
--- NOTE | 2018-04-21 22:06 | XR ---
EXAM DATE: 04/21/2018 10:02 PM EST AGE/SEX: 67 years / Male INDICATIONS: Nausea and vomiting. Lower abdomen pain. CLINICAL DATA: This is the patient's initial encounter. Patient reports that signs and symptoms have been present for 3 days and indicates a pain score of 4/10. MEDICAL/SURGICAL HISTORY: . Myocardial infarction. Gastroesophageal reflux disease. Diabetes. . CABG. Gastric bypass. . COMPARISON: No prior exams available for comparison. FINDINGS: The abdominal bowel gas pattern is nonobstructive. Moderate to large stool throughout the colon. No abnormal masses, calcifications, or organomegaly is seen. The osseous structures are unremarkable. CONCLUSION: Nonobstructive bowel gas pattern. Moderate to large stool throughout the colon. Electronically signed by: Elías Martinez MD 04/21/2018 10:05 PM EST
[2018-04-22] MEDS: Insulin NovoLOG Aspart Correctional Sugar Inj SQ SCH ×5 (02:29→21:48)
[2018-04-22 05:14] LABS: Baso # (Auto) 0.1 th/mm3 (0.0-0.2); Baso % (Auto) 0.9 % (0.0-2.0); Eos # (Auto) 0.2 th/mm3 (0.0-0.4); Eos % (Auto) 1.8 % (0.0-4.0); Hematocrit 25.5 % (39.0-51.0); Hemoglobin 8.8 gm/dL (13.0-17.0); Lymph # (Auto) 2.7 th/mm3 (1.0-4.8); Lymph % (Auto) 25.1 % (9.0-44.0); Mean Corpuscular HGB Conc 34.5 % (32.0-36.0); Mean Corpuscular Hemoglobin 30.2 pg (27.0-34.0); Mean Corpuscular Volume 87.5 fL (80.0-100.0); Mean Platelet Volume 7.8 fL (7.0-11.0); Mono % (Auto) 9.6 % (0.0-8.0); Neut # (Auto) 6.8 th/mm3 (1.8-7.7); Neut % (Auto) 62.6 % (16.0-70.0); Platelet Count 398 th/mm3 (150-450); Red Blood Count 2.92 mil/mm3 (4.50-5.90); Red Cell Distribution Width 16.2 % (11.6-17.2); White Blood Count 10.8 th/mm3 (4.0-11.0)
[2018-04-22 05:22] LABS: Alanine Aminotransferase 32 U/L (12-78); Albumin 2.1 g/dL (3.4-5.0); Amylase 55 U/L (25-115); Anion Gap 5 meq/L (5-15); Aspartate Aminotransferase 30 U/L (15-37); Blood Urea Nitrogen 16 mg/dL (7-18); Calcium 7.9 mg/dL (8.5-10.1); Carbon Dioxide 32.1 meq/L (21.0-32.0); Chloride 100 meq/L (98-107); Glomerular Filtration Rate 75 mL/min (>89); Glucose,Random 109 mg/dL (74-106); Lipase 150 U/L (73-393); Magnesium 2.1 mg/dL (1.5-2.5); Potassium 3.9 meq/L (3.5-5.1); Sodium 137 meq/L (136-145)
[2018-04-22 05:26] LABS: Alkaline Phosphatase 134 U/L (45-117); Phosphorus 3.2 mg/dL (2.5-4.9); Total Protein 6.2 g/dL (6.4-8.2)
[2018-04-22] MEDS: Piperacil/Tazo 3.375 GM Premix 50 ML IV.SIG SCH ×3 (06:00→23:17)
[2018-04-22] MEDS: Metoprolol Tartrate 25 MG Tablet PO SCH ×2 (09:15→21:48)
[2018-04-22] MEDS: Senna/Docusate Sodium 8.6/50 MG Tablet PO SCH ×2 (09:15→21:48)
[2018-04-22] MEDS: Amiodarone 200 MG Tablet PO SCH ×2 (09:15→21:47)
[2018-04-22] MEDS: Multivitamin/Minerals Therapeutic Tablet PO SCH (09:16)
[2018-04-22] MEDS: Polyethylene Glycol 3350 17 GM Packet PO SCH (09:16)
[2018-04-22] MEDS: Magnesium Oxide 400 MG Tablet PO SCH ×2 (09:17→21:48)
[2018-04-22] MEDS: Docusate Sodium 100 MG Capsule PO SCH ×2 (09:17→21:47)
--- NOTE | 2018-04-22 10:04 | P.PNIM ---
Subjective Interval history: Follow up for non-STEMI, atrial fibrillation, cholecystitis. The patient is in the chair he appears tired. Says he has chest pain especially when he is coughing. No shortness of breath. No nausea or vomiting able to eat but not much. No fever or chills. 12-6 LOOKS BETTER PER RN AND [facility] HOPEFULLY TO [facility] LATER TODAY MEDS ADJUSTED WATCH BLOOD SUGARS 12- HAVING NAUSEA AND VOMITING TODAY WILL GET AMYLASE AND LIPASE CONSULT GI AND SURGERY WILL GET KUB AM LABS - SEEN BY GENERAL SURGERY FOR CHOLECYSTECTOMY ON TUESDAY HOLD ELIQUIS UNTIL AFTER SURGERY AM LABS NO NAUSEA OR VOMITING OR CHEST PAIN OR SOB TODAY FEELS MUCH BETTER TODAY DW RN AND PT AND [facility] Physical Exam Vital signs: Vital Signs 04/21/18 11:00 04/21/18 12:00 04/21/18 13:00 Temperature 98.1 F Pulse Rate 77 78 82 Respiratory Rate 16 Blood Pressure 116/60 Pulse Oximetry 95 04/21/18 14:00 04/21/18 15:00 04/21/18 15:10 Temperature Pulse Rate 92 H 74 Respiratory Rate Blood Pressure Pulse Oximetry 92 L 04/21/18 16:00 04/21/18 17:00 04/21/18 18:00 Temperature 98 F Pulse Rate 77 78 80 Respiratory Rate 16 Blood Pressure 105/59 L Pulse Oximetry 93 L 04/21/18 19:00 04/21/18 20:00 04/21/18 21:00 Temperature 98.9 F Pulse Rate 68 62 62 Respiratory Rate 16 Blood Pressure 93/52 L Pulse Oximetry 95 96 04/21/18 22:00 04/21/18 23:00 04/22/18 00:00 Temperature 98.7 F Pulse Rate 63 65 65 Respiratory Rate 16 Blood Pressure 89/55 L Pulse Oximetry 98 04/22/18 01:00 04/22/18 02:00 04/22/18 03:00 Temperature 99.0 F Pulse Rate 66 63 70 Respiratory Rate 18 Blood Pressure 99/57 L Pulse Oximetry 99 04/22/18 04:00 04/22/18 05:00 04/22/18 06:00 Temperature Pulse Rate 72 70 69 Respiratory Rate Blood Pressure Pulse Oximetry 04/22/18 07:00 Temperature 98.7 F Pulse Rate 71 Respiratory Rate 16 Blood Pressure 96/60 L Pulse Oximetry 98 Intake & Output 04/21/18 04/22/18 04/22/18 18:59 06:59 18:59 Intake Total 960 / 960 390 / 390 Output Total 1000 / 1000 350 / 350 Balance -40 / -40 40 / 40 Weight 105.3 kg Intake: IV 150 / 150 Zosyn 3.375 GM Premix 50 ML @ 150 / 150 100 mls/hr IV.SIG Q8H THOMAS Rx#: [id number] Oral 960 / 960 240 / 240 Output: Urine 1000 / 1000 350 / 350 Other: Date of Last Bowel Movement 04/20/18 Narrative: GENERAL: Pleasant 67-year-old male, alert, appears tired, but in NAD. CARDIOVASCULAR: Regular rate and rhythm without murmurs, gallops, or rubs. Chest IS DRESSED RESPIRATORY: Breath sounds equal bilaterally. No accessory muscle use. GASTROINTESTINAL: Abdomen soft, non-tender, nondistended. MUSCULOSKELETAL: No cyanosis, or edema. Prevana dressing present. SKIN: Warm and dry. NEURO: No focal neurological deficits. - Urinary Catheter Management 3-way Urethral Cath placed during this visit: yes, but has since been removed by the nurse Reason for continuing: Decision to DC catheter Insertion date: 04/13/18 Insertion time: 00:00 Removal date: 04/19/18 Removal time: 10:30 Results - Labs CBC & Chem 7: 04/22/18 04:20 04/22/18 04:20 Laboratory Results - last 24 hr 04/21/18 04/21/18 04/21/18 04:17 10:47 12:13 WBC RBC Hgb Hct MCV MCH MCHC RDW Plt Count MPV Neut % (Auto) Lymph % (Auto) [place] % (Auto) Eos % (Auto) Baso % (Auto) Neut # (Auto) Lymph # (Auto) [place] # (Auto) Eos # (Auto) Baso # (Auto) WBC Differential Differential Comment Sodium Potassium Chloride Carbon Dioxide Anion Gap BUN Creatinine Estimated GFR POC Glucose 157 H Random Glucose Hemoglobin A1c 6.2 H Calcium Phosphorus Magnesium Total Bilirubin AST ALT Alkaline Phosphatase Total Protein Albumin Amylase 60 Lipase 174 04/21/18 04/21/18 04/22/18 16:50 19:47 02:19 WBC RBC Hgb Hct MCV MCH MCHC RDW Plt Count MPV Neut % (Auto) Lymph % (Auto) [place] % (Auto) Eos % (Auto) Baso % (Auto) Neut # (Auto) Lymph # (Auto) [place] # (Auto) Eos # (Auto) Baso # (Auto) WBC Differential Differential Comment Sodium Potassium Chloride Carbon Dioxide Anion Gap BUN Creatinine Estimated GFR POC Glucose 213 H 145 H 155 H Random Glucose Hemoglobin A1c Calcium Phosphorus Magnesium Total Bilirubin AST ALT Alkaline Phosphatase Total Protein Albumin Amylase Lipase 04/22/18 04/22/18 04:20 04:20 WBC 10.8 RBC 2.92 L Hgb 8.8 L Hct 25.5 L MCV 87.5 MCH 30.2 MCHC 34.5 RDW 16.2 Plt Count 398 MPV 7.8 Neut % (Auto) 62.6 Lymph % (Auto) 25.1 [place] % (Auto) 9.6 H Eos % (Auto) 1.8 Baso % (Auto) 0.9 Neut # (Auto) 6.8 Lymph # (Auto) 2.7 [place] # (Auto) 1.0 H Eos # (Auto) 0.2 Baso # (Auto) 0.1 WBC Differential . Differential Comment Auto diff final Sodium 137 Potassium 3.9 Chloride 100 Carbon Dioxide 32.1 H Anion Gap 5 BUN 16 Creatinine 0.99 Estimated GFR 75 L POC Glucose Random Glucose 109 H Hemoglobin A1c Calcium 7.9 L Phosphorus 3.2 Magnesium 2.1 Total Bilirubin 0.5 AST 30 ALT 32 Alkaline Phosphatase 134 H Total Protein 6.2 L Albumin 2.1 L Amylase 55 Lipase 150 - Imaging Impressions Abdomen X-Ray 04/21/18 00:00 CONCLUSION: Nonobstructive bowel gas pattern. Moderate to large stool throughout the colon. - Procedures CABG X3 ON 04-14 THOMAS-->LAD, SVG-->OM, SVG-->PDA PREPROCEDURE DIAGNOSES 1. Severe Multi Vessel Coronary Artery Disease. 2. Acute Myocardial Infarction (NSTEMI) 3. Acute Cholecystitis s/p percutaneous cholecystostomy tube placement 4. Sepsis and Bacteremia 5. Severe Pulmonary Insufficiency 6. Intramyocardial Coronary Vessels POSTPROCEDURE DIAGNOSES Same SURGICAL PROCEDURE 1. Urgent Off-pump Coronary Artery Bypass Grafting x 3 with Left Internal Mammary Artery (THOMAS) to Left Anterior Descending (LAD), reverse saphenous vein graft to obtuse Marginal branch of the left Circumflex artery, reverse saphenous vein graft to the posterior Descending branch of the right Coronary artery 2. Left leg Endoscopic Vein [place] 3. Ultrasound-guided dissection of the LAD 4. Intraoperative Vein Mapping. Assessment and Plan - Assessment (1) Coronary artery disease involving [place] coronary artery Code(s): I25.10 - Atherosclerotic heart disease of [place] coronary artery without angina pectoris Status: Acute (2) S/P CABG (coronary artery bypass graft) Code(s): Z95.1 - Presence of aortocoronary bypass graft Status: Acute - Plan Mr. Bridges is a pleasant 67-year-old male with history of prior gastric bypass who has acute clinical course has been complicated by acute cholecystitis and Klebsiella, E. coli bacteremia requiring a week of IV antibiotics, now complicated by acute non-ST elevation myocardial infarction and underwent urgent off-pump CABG x 3 (THOMAS-->LAD, SVG-->OM, SVG-->PDA) on 04/14. NSTEMI Coronary artery disease -s/p Off-pump CABG (THOMAS-->LAD, SVG-->OM, SVG-->PDA) 04/14/2018 -EF 60-65%, trace to mild MR on [facility] this admission Continue aspirin 81 mg, atorvastatin 20 mg, Plavix 75 mg Continue metoprolol 25 mg twice daily. Continue amiodarone 400 mg p.o. every 8 hours. Atrial fibrillation -currently in normal sinus rhythm. New onset. Patient is currently on beta-janeth as well as amiodarone. May benefit from anticoagulation for 4 weeks. HOLD ELIQUIS AT THIS TIME Diabetes mellitus Continue sliding scale insulin as well as Levemir 10 units twice daily. Acute cholecystitis E. coli and Klebsiella bacteremia -resolved General surgery to consider cholecystectomy in the near future. Hematuria Appreciate urology input. Negative cystoscopy. [place] management per urology recommendations. NAUSEA AND VOMITING-IMPROVED TODAY TO HAVE CHOLECYSTECTOMY ON TUESDAY DW RN AND PT AND [facility] Full code. Pharmacological DVT prophylaxis after chest tube is discontinued. Code Status: FULL CODE Discussed Condition With: RN AND PT AND [facility] Discharge Planning: HOPEFULLY TO [facility] MONITOR BLOOD SUGARS NEEDS GALLBLADDER SURGERY FIRST THEN MAYBE TO [facility] VS [facility]
--- NOTE | 2018-04-22 10:38 | P.PNCV ---
- Note CVT: Post Op Day #: 8 Subjective/Hospital Course: 67-year-old male who presented to [facility] 03/19/18 due to nausea, vomiting and abdominal pain. He states that he was awakened at 6 a.m. with left -sided flank pain and left mid back pain radiating to the left lower quadrant. He developed nausea and vomiting secondary to the pain. he was incidentally found to have cholecystitis, perc burt tube was placed , Trop was + underwent cardiac cath by Dr Pérez : mid LAD 80%, Left Circ 70 % lesion, RCA 100% occluded in the mid portion with [id number] and right-to- right collaterals supplying the distal portion. Blood cultures grew klebsiella pneumoniae and E coli , followed by ID and recommended to at least complete one week course of IV antibiotics prior to surgery PAST MEDICAL HISTORY: Diabetes, GERD, Hyperlipidemia, morbid obesity with BMI 40, History of gastric bypass. 03/27 pt is pain free at this time , has perc burt drain US of lower ext neg for DVT, Carotid US no stenosis continues on IV antibiotics per ID : VIVIENNE cefepime IV Ceftriaxone IV once a day (stop date: 04/03/2018) after which we will repeat BCX on 04/04/18. If these repeat bcx are negative at 48 hrs and patient clinically doing well will clear him from CABG. VIVIENNE Flagyl consult PT 03/28 pain free will follow / schedule for surgery next week when cleared by ID 03/29 still has some mild right flank pain burt drain in place no chest pain 04/03 c/o of nausea and vomiting since last night , also some abdominal pain for repeat CT abdomen today also repeat Blood cultures pending 04/05 still complaining of nausea and vomiting burt drain in place 04/10 events noted over weekend blood culture neg 04/03 , off all antibiotics still has burt drain , nursing flushing periodically per Uro / will perform bedside cystoscopy at bedside this week / urine has cleared since Heparin vivienne General surgery / will see after 3-4 weeks after CABG to eval for cholecystectomy will discuss timing for surgery with Dr Carlin no further complaints of nausea / vomiting 04/11 resting comfortably await bedside cystoscopy/ and clearance from urology then plan for timing of CABG, needs to be placed back on ASA 04/12 cleared by Urology for surgery " s/p bedside [place] cystoscopy did not show any abnormalities within the bladder there were no bladder tumors identified. Retroflex examination of the bladder neck showed an area of friability at the prostate which was most likely the area that was bleeding at the time. per Urology: recommend placement of 3 way scales prior to surgery pt ambulating with walker, no nausea scheduled for surgery on tuesday will need 3 way cath placed by urology on 04/[address] catheter placed by Urology stable for surgery in am 04/14 SURGICAL PROCEDURE 1. Urgent Off-pump Coronary Artery Bypass Grafting x 3 with Left Internal Mammary Artery (THOMAS) to Left Anterior Descending (LAD), reverse saphenous vein graft to obtuse Marginal branch of the left Circumflex artery, reverse saphenous vein graft to the posterior Descending branch of the right Coronary artery 2. Left leg Endoscopic Vein [place] 3. Ultrasound-guided dissection of the LAD 4. Intraoperative Vein Mapping. 04/15 Doing well clinically Weaning [place]-Synephrine drip as tolerated Awaiting LFT results Maintain in ICU Continue chest tube to drainage 04/16 Clinically and hematocrit stable New onset atrial fibrillation last night. Presently in normal sinus rhythm on amiodarone drip Increase beta-janeth to 25 twice daily Okay to transfer to [facility] later today 04/17 converted to NSR transition to po amiodarone leave chest tubes in today / clots / bloody drainage OOB ambulate, gentle diuresis 04/18 converted to NSR, continue amiodarone po f/u labs in am if goes back into afib, will need NOAC chest tube dc without difficulty f/u CXR in am PT/OT eval for transfer to [place] next 24-48hrs 04/19 discharge summary completed had issues with low blood sugars levemir dc insulin sliding scale dosing decreased 04/20 BGM's improved discussed with Dr Pérez will start eliquis, dc plavix stable to transfer to rehab today 04/21 pt having reoccurring nausea and vomiting with some abdominal discomfort does not feel as well today Dr Hall notified , ok to hold eliquis 48hrs prior to any procedure ok for Lap burt per Dr Carlin 04/22/18 No c/o presently. preop for Tuesday for CCx Objective: Vital Signs - 24 hr 04/21/18 11:00 04/21/18 12:04/21/18 13:00 Temperature 98.1 F Pulse Rate 77 78 82 Respiratory Rate 16 Blood Pressure 116/60 Pulse Oximetry 95 04/21/18 14:00 04/21/18 15:00 04/21/18 15:10 Temperature Pulse Rate 92 H 74 Respiratory Rate Blood Pressure Pulse Oximetry 92 L 04/21/18 16:00 04/21/18 17:00 04/21/18 18:00 Temperature 98 F Pulse Rate 77 78 80 Respiratory Rate 16 Blood Pressure 105/59 L Pulse Oximetry 93 L 04/21/18 19:00 04/21/18 20:00 04/21/18 21:00 Temperature 98.9 F Pulse Rate 68 62 62 Respiratory Rate 16 Blood Pressure 93/52 L Pulse Oximetry 95 96 04/21/18 22:00 04/21/18 23:00 04/22/18 00:00 Temperature 98.7 F Pulse Rate 63 65 65 Respiratory Rate 16 Blood Pressure 89/55 L Pulse Oximetry 98 04/22/18 01:00 04/22/18 02:00 04/22/18 03:00 Temperature 99.0 F Pulse Rate 66 63 70 Respiratory Rate 18 Blood Pressure 99/57 L Pulse Oximetry 99 04/22/18 04:00 04/22/18 05:00 04/22/18 06:00 Temperature Pulse Rate 72 70 69 Respiratory Rate Blood Pressure Pulse Oximetry 04/22/18 07:00 Temperature 98.7 F Pulse Rate 71 Respiratory Rate 16 Blood Pressure 96/60 L Pulse Oximetry 98 Labs: Laboratory Results - last 12 hr 04/22/18 04/22/18 04/22/18 02:19 04:20 04:20 WBC 10.8 RBC 2.92 L Hgb 8.8 L Hct 25.5 L MCV 87.5 MCH 30.2 MCHC 34.5 RDW 16.2 Plt Count 398 MPV 7.8 Neut % (Auto) 62.6 Lymph % (Auto) 25.1 [place] % (Auto) 9.6 H Eos % (Auto) 1.8 Baso % (Auto) 0.9 Neut # (Auto) 6.8 Lymph # (Auto) 2.7 [place] # (Auto) 1.0 H Eos # (Auto) 0.2 Baso # (Auto) 0.1 WBC Differential . Differential Comment Auto diff final Sodium 137 Potassium 3.9 Chloride 100 Carbon Dioxide 32.1 H Anion Gap 5 BUN 16 Creatinine 0.99 Estimated GFR 75 L POC Glucose 155 H Random Glucose 109 H Calcium 7.9 L Phosphorus 3.2 Magnesium 2.1 Total Bilirubin 0.5 AST 30 ALT 32 Alkaline Phosphatase 134 H Total Protein 6.2 L Albumin 2.1 L Amylase 55 Lipase 150 Result Diagrams: 04/22/18 04:20 04/22/18 04:20 Imaging: Abdomen/Pelvis CT 03/19/18 10:38 CONCLUSION: 1. Short segmental concentric wall thickening is identified in the distal descending colon. Colon malignancy needs to be excluded. 2. Calcified gallstones with moderate distention of the gallbladder. 3. No other significant abnormality. Chest CTA 03/19/18 13:37 CONCLUSION: 1. No evidence of acute pulmonary embolism. 2. Mild subpleural airspace disease and reticulations which may be chronic. 3. No evidence of segmental or lobar lung consolidation. Abdomen/Pelvis CTA 03/22/18 00:00 CONCLUSION: 1. Prominent gallbladder distention and surrounding inflammatory changes consistent with cholecystitis 2. No acute vascular findings in the abdomen or pelvis. Carotid Doppler Study 03/25/18 12:49 CONCLUSION: 1. Right Internal Carotid Artery: No significant plaque or narrowing. 2. Left Internal Carotid Artery: No significant plaque or narrowing. Lower Extremity Ultrasound 03/25/18 12:49 CONCLUSION: Bilateral greater saphenous vein measurements as above. No acute abnormalities are demonstrated. Venous Doppler Study 03/25/18 12:49 CONCLUSION: Negative study. No venous thrombosis of either lower extremity. Percutaneous Cholangiogram 03/31/18 00:00 CONCLUSION: Uncomplicated percutaneous cholecystostomy as above. Cholangiopancreatography MRI 04/03/18 17:20 CONCLUSION: 1. Numerous filling defects within the central intrahepatic biliary ducts, common hepatic ducts, and common bile ducts. These represent stones and/or thrombus/hemorrhage. The linear defects are more likely related to hemorrhage. 2. Dilatation of the gallbladder with thickened gallbladder wall and a cholecystostomy tube in place. There is heterogeneous material within the gallbladder. Abdomen/Bladder Ultrasound 04/07/18 00:00 CONCLUSION: 1. No findings to account for the patient's hematuria. 2. Nonvisualization of the left kidney. 3. No evidence of hydronephrosis or nephrolithiasis in the right kidney. Chest X-Ray 04/19/18 06:00 CONCLUSION: No pneumothorax following chest tube removal. Persistent bibasilar consolidation. Abdomen X-Ray 04/21/18 00:00 CONCLUSION: Nonobstructive bowel gas pattern. Moderate to large stool throughout the colon. Cardiovascular: RRR Pulmonary: CTA GI/: NABS Incision: dry and intact - Plan (1) Coronary artery disease involving [place] coronary artery Plan: ASA, statin, BB , amiodarone reoccurring nausea and vomiting / stable LFT pulm toileting nebs, ezpap , acapella OOB/ PT (3) Afib Plan: in NSR > afib transition to po amiodarone (4) Cholecystitis Plan: s/p perc drain / accidentally dislodged general surgery to re-see pt 2/2 re-occurring nausea and vomiting Lap burt on Tuesday Eliquis on hold Encourage ambulation, up to chair Incentive spirometry
--- NOTE | 2018-04-22 11:01 | P.PNGI ---
Subjective Interval history: Up in chair, generalized edema noted no obvious nausea vomiting or shortness of breath Denies any abdominal pain for now <Teresa Azar M - Last Filed: 04/22/18 10:57> Physical Exam Vital signs: Vital Signs 04/21/18 11:00 04/21/18 12:00 04/21/18 13:00 Temperature 98.1 F Pulse Rate 77 78 82 Respiratory Rate 16 Blood Pressure 116/60 Pulse Oximetry 95 04/21/18 14:00 04/21/18 15:00 04/21/18 15:10 Temperature Pulse Rate 92 H 74 Respiratory Rate Blood Pressure Pulse Oximetry 92 L 04/21/18 16:00 04/21/18 17:00 04/21/18 18:00 Temperature 98 F Pulse Rate 77 78 80 Respiratory Rate 16 Blood Pressure 105/59 L Pulse Oximetry 93 L 04/21/18 19:00 04/21/18 20:00 04/21/18 21:00 Temperature 98.9 F Pulse Rate 68 62 62 Respiratory Rate 16 Blood Pressure 93/52 L Pulse Oximetry 95 96 04/21/18 22:00 04/21/18 23:00 04/22/18 00:00 Temperature 98.7 F Pulse Rate 63 65 65 Respiratory Rate 16 Blood Pressure 89/55 L Pulse Oximetry 98 04/22/18 01:00 04/22/18 02:00 04/22/18 03:00 Temperature 99.0 F Pulse Rate 66 63 70 Respiratory Rate 18 Blood Pressure 99/57 L Pulse Oximetry 99 04/22/18 04:00 04/22/18 05:00 04/22/18 06:00 Temperature Pulse Rate 72 70 69 Respiratory Rate Blood Pressure Pulse Oximetry 04/22/18 07:00 Temperature 98.7 F Pulse Rate 71 Respiratory Rate 16 Blood Pressure 96/60 L Pulse Oximetry 98 Intake & Output 04/21/18 04/22/18 04/22/18 18:59 06:59 18:59 Intake Total 960 / 960 390 / 390 Output Total 1000 / 1000 350 / 350 Balance -40 / -40 40 / 40 Weight 105.3 kg Intake: IV 150 / 150 Zosyn 3.375 GM Premix 50 ML @ 150 / 150 100 mls/hr IV.SIG Q8H [facility] Rx#: [id number] Oral 960 / 960 240 / 240 Output: Urine 1000 / 1000 350 / 350 Other: Date of Last Bowel Movement 04/20/18 - Constitutional mild distress, cachectic, disheveled, cooperative - Routine HEENT Exam Head: Present: normocephalic (Pale) ENT: Present: mucous membranes moist - Routine Respiratory Exam Present: accessory muscle use (Low volumes but no obvious shortness of breath at rest) - Routine Cardiovascular Exam Present: S1, S2 - Routine Abdominal Exam Present: soft (Round,), distended (taut) - Routine Neurological Exam Present: alert (Generalized weakness) - Urinary Catheter Management 3-way Urethral Cath placed during this visit: yes, but has since been removed by the nurse Reason for continuing: Decision to DC catheter Insertion date: 04/13/18 Insertion time: 00:00 Removal date: 04/19/18 Removal time: 10:30 <Teresa Azar - Last Filed: 04/22/18 10:57> Vital signs: Vital Signs 04/21/18 15:00 04/21/18 15:10 04/21/18 16:00 Temperature 98 F Pulse Rate 74 77 Respiratory Rate 16 Blood Pressure 105/59 L Pulse Oximetry 92 L 93 L 04/21/18 17:00 04/21/18 18:00 04/21/18 19:00 Temperature 98.9 F Pulse Rate 78 80 68 Respiratory Rate 16 Blood Pressure 93/52 L Pulse Oximetry 95 04/21/18 20:00 04/21/18 21:00 04/21/18 22:00 Temperature Pulse Rate 62 62 63 Respiratory Rate Blood Pressure Pulse Oximetry 96 04/21/18 23:00 04/22/18 00:00 04/22/18 01:00 Temperature 98.7 F Pulse Rate 65 65 66 Respiratory Rate 16 Blood Pressure 89/55 L Pulse Oximetry 98 04/22/18 02:00 04/22/18 03:00 04/22/18 04:00 Temperature 99.0 F Pulse Rate 63 70 72 Respiratory Rate 18 Blood Pressure 99/57 L Pulse Oximetry 99 04/22/18 05:00 04/22/18 06:00 04/22/18 07:00 Temperature 98.7 F Pulse Rate 70 69 71 Respiratory Rate 16 Blood Pressure 96/60 L Pulse Oximetry 98 04/22/18 08:00 04/22/18 09:00 04/22/18 10:00 Temperature Pulse Rate 71 70 71 Respiratory Rate Blood Pressure Pulse Oximetry 96 04/22/18 11:00 Temperature Pulse Rate 70 Respiratory Rate 18 Blood Pressure Pulse Oximetry Intake & Output 04/21/18 04/22/18 04/22/18 18:59 06:59 18:59 Intake Total 960 / 960 390 / 390 Output Total 1000 / 1000 350 / 350 Balance -40 / -40 40 / 40 Weight 105.3 kg Intake: IV 150 / 150 Zosyn 3.375 GM Premix 50 ML @ 150 / 150 100 mls/hr IV.SIG Q8H [facility] Rx#: [id number] Oral 960 / 960 240 / 240 Output: Urine 1000 / 1000 350 / 350 Other: Date of Last Bowel Movement 04/20/18 - Urinary Catheter Management 3-way Urethral Cath placed during this visit: no <AshleyjacintaIrvinge - Last Filed: 04/22/18 19:04> Results - Labs CBC & Chem 7: 04/22/18 04:20 04/22/18 04:20 Laboratory Results - last 24 hr 04/21/18 04/21/18 04/21/18 04:17 10:47 12:13 WBC RBC Hgb Hct MCV MCH MCHC RDW Plt Count MPV Neut % (Auto) Lymph % (Auto) [place] % (Auto) Eos % (Auto) Baso % (Auto) Neut # (Auto) Lymph # (Auto) [place] # (Auto) Eos # (Auto) Baso # (Auto) WBC Differential Differential Comment Sodium Potassium Chloride Carbon Dioxide Anion Gap BUN Creatinine Estimated GFR POC Glucose 157 H Random Glucose Hemoglobin A1c 6.2 H Calcium Phosphorus Magnesium Total Bilirubin AST ALT Alkaline Phosphatase Total Protein Albumin Amylase 60 Lipase 174 04/21/18 04/21/18 04/22/18 16:50 19:47 02:19 WBC RBC Hgb Hct MCV MCH MCHC RDW Plt Count MPV Neut % (Auto) Lymph % (Auto) [place] % (Auto) Eos % (Auto) Baso % (Auto) Neut # (Auto) Lymph # (Auto) [place] # (Auto) Eos # (Auto) Baso # (Auto) WBC Differential Differential Comment Sodium Potassium Chloride Carbon Dioxide Anion Gap BUN Creatinine Estimated GFR POC Glucose 213 H 145 H 155 H Random Glucose Hemoglobin A1c Calcium Phosphorus Magnesium Total Bilirubin AST ALT Alkaline Phosphatase Total Protein Albumin Amylase Lipase 04/22/18 04/22/18 04:20 04:20 WBC 10.8 RBC 2.92 L Hgb 8.8 L Hct 25.5 L MCV 87.5 MCH 30.2 MCHC 34.5 RDW 16.2 Plt Count 398 MPV 7.8 Neut % (Auto) 62.6 Lymph % (Auto) 25.1 [place] % (Auto) 9.6 H Eos % (Auto) 1.8 Baso % (Auto) 0.9 Neut # (Auto) 6.8 Lymph # (Auto) 2.7 [place] # (Auto) 1.0 H Eos # (Auto) 0.2 Baso # (Auto) 0.1 WBC Differential . Differential Comment Auto diff final Sodium 137 Potassium 3.9 Chloride 100 Carbon Dioxide 32.1 H Anion Gap 5 BUN 16 Creatinine 0.99 Estimated GFR 75 L POC Glucose Random Glucose 109 H Hemoglobin A1c Calcium 7.9 L Phosphorus 3.2 Magnesium 2.1 Total Bilirubin 0.5 AST 30 ALT 32 Alkaline Phosphatase 134 H Total Protein 6.2 L Albumin 2.1 L Amylase 55 Lipase 150 - Imaging Impressions Abdomen X-Ray 04/21/18 00:00 CONCLUSION: Nonobstructive bowel gas pattern. Moderate to large stool throughout the colon. - Procedures CABG X3 ON 04-14 THOMAS-->LAD, SVG-->OM, SVG-->PDA PREPROCEDURE DIAGNOSES 1. Severe Multi Vessel Coronary Artery Disease. 2. Acute Myocardial Infarction (NSTEMI) 3. Acute Cholecystitis s/p percutaneous cholecystostomy tube placement 4. Sepsis and Bacteremia 5. Severe Pulmonary Insufficiency 6. Intramyocardial Coronary Vessels POSTPROCEDURE DIAGNOSES Same SURGICAL PROCEDURE 1. Urgent Off-pump Coronary Artery Bypass Grafting x 3 with Left Internal Mammary Artery (THOMAS) to Left Anterior Descending (LAD), reverse saphenous vein graft to obtuse Marginal branch of the left Circumflex artery, reverse saphenous vein graft to the posterior Descending branch of the right Coronary artery 2. Left leg Endoscopic Vein [place] 3. Ultrasound-guided dissection of the LAD 4. Intraoperative Vein Mapping. <Teresa Azar - Last Filed: 04/22/18 10:57> - Labs CBC & Chem 7: 04/22/18 04:20 04/22/18 04:20 Laboratory Results - last 24 hr 04/21/18 04/21/18 04/21/18 04:17 16:50 19:47 WBC RBC Hgb Hct MCV MCH MCHC RDW Plt Count MPV Neut % (Auto) Lymph % (Auto) [place] % (Auto) Eos % (Auto) Baso % (Auto) Neut # (Auto) Lymph # (Auto) [place] # (Auto) Eos # (Auto) Baso # (Auto) WBC Differential Differential Comment Sodium Potassium Chloride Carbon Dioxide Anion Gap BUN Creatinine Estimated GFR POC Glucose 213 H 145 H Random Glucose Hemoglobin A1c 6.2 H Calcium Phosphorus Magnesium Total Bilirubin AST ALT Alkaline Phosphatase Total Protein Albumin Amylase Lipase 04/22/18 04/22/18 04/22/18 02:19 04:20 04:20 WBC 10.8 RBC 2.92 L Hgb 8.8 L Hct 25.5 L MCV 87.5 MCH 30.2 MCHC 34.5 RDW 16.2 Plt Count 398 MPV 7.8 Neut % (Auto) 62.6 Lymph % (Auto) 25.1 [place] % (Auto) 9.6 H Eos % (Auto) 1.8 Baso % (Auto) 0.9 Neut # (Auto) 6.8 Lymph # (Auto) 2.7 [place] # (Auto) 1.0 H Eos # (Auto) 0.2 Baso # (Auto) 0.1 WBC Differential . Differential Comment Auto diff final Sodium 137 Potassium 3.9 Chloride 100 Carbon Dioxide 32.1 H Anion Gap 5 BUN 16 Creatinine 0.99 Estimated GFR 75 L POC Glucose 155 H Random Glucose 109 H Hemoglobin A1c Calcium 7.9 L Phosphorus 3.2 Magnesium 2.1 Total Bilirubin 0.5 AST 30 ALT 32 Alkaline Phosphatase 134 H Total Protein 6.2 L Albumin 2.1 L Amylase 55 Lipase 150 04/22/18 11:48 WBC RBC Hgb Hct MCV MCH MCHC RDW Plt Count MPV Neut % (Auto) Lymph % (Auto) [place] % (Auto) Eos % (Auto) Baso % (Auto) Neut # (Auto) Lymph # (Auto) [place] # (Auto) Eos # (Auto) Baso # (Auto) WBC Differential Differential Comment Sodium Potassium Chloride Carbon Dioxide Anion Gap BUN Creatinine Estimated GFR POC Glucose 161 H Random Glucose Hemoglobin A1c Calcium Phosphorus Magnesium Total Bilirubin AST ALT Alkaline Phosphatase Total Protein Albumin Amylase Lipase - Imaging Impressions Abdomen X-Ray 04/21/18 00:00 CONCLUSION: Nonobstructive bowel gas pattern. Moderate to large stool throughout the colon. <Kimmie Calvo - Last Filed: 04/22/18 19:04> Assessment and Plan (1) Intractable abdominal pain Status: Acute Code(s): R10.9 - Unspecified abdominal pain - Plan Assessment: - Colon wall thickening- CT abdomen and pelvis (03/19) Short segmental concentric wall thickening is identified in the distal descending colon. Colon malignancy needs to be excluded. Calcified gallstones with moderate distention of the gallbladder. Patient states last EGD/colonoscopy was done in 2006 prior to gastric bypass surgery. Reportedly normal exam. Family history of gastric cancer-he states his brother of gastric cancer at the age of 3838 years old. EGD/colonoscopy recommended when pt is cleared by cardiology and is stable - Acute cholecystitis - CTA abd/pelvis done to rule out mesenteric ischemia yesterday CTA abd/pelvis (03/22) Prominent gallbladder distention and surrounding inflammatory changes consistent with cholecystitis No acute vascular findings in the abdomen or pelvis. Poor surgical candidate, S/P cholecystostomy tube placement by IR. GS following - Klebsiella Pneumoniae bacteremia- ID following to determine etiology. KELLY negative for vegetation. Suspect secondary to acute cholecystitis - A-fib with RVR and elevated troponin- now rate controlled, on Amiodarone gtt, on Heparin- cardiology following (03/24) S/P cardiac cath- multivessel CAD, cardiothoracic surgery has been consulted. Dark bile output from cholecystostomy tube. 03/25/2018, continues with some right-sided abdominal pain around the area of right biliary drainage tube which shows small amount of dark bilious drainage Constipation questionable bowel movement states none in the past 6 days, will review medications Continues with IV fluids at 100 cc an hour. Until cardiothoracic consult and clearance for any further GI workup will follow as needed Hemoglobin stable at 9.8 and WBC count 13 no obvious bleeding 04/04/2018 Our service has been asked to see patient due to increasing liver function tests , possibly passed stone. Cholecystostomy tube in place with scant drainage noted in drainage blood collector bag. WBC 15.3 hemoglobin 9.8 hematocrit 30.3 total bilirubin 3.0 AST 228 ALT 170 alk phos 697 04/03/2018 MRCP revealed the following-- 1. Numerous filling defects within the central intrahepatic biliary ducts, common hepatic ducts, and common bile ducts. These represent stones and/or thrombus/hemorrhage. The linear defects are more likely related to hemorrhage. 2. Dilatation of the gallbladder with thickened gallbladder wall and a cholecystostomy tube in place. There is heterogeneous material within the gallbladder. 04/07/2018 Consultation to IR for evaluation of cholecystostomy tube. As per my discussion with Dr. Ramos, intervention to evaluate for patency of cholecystostomy tube not indicated at this time as drainage under previous evaluation noted to be "honey thick". WBC 11.8 hemoglobin 8.9 hematocrit 26.6 platelet count 411 total bilirubin 0.6 AST 65 ALT 80 alk phos 456 all trending down Patient afebrile at 98.4 04/08/2018 Patient up to bedside, reports feeling much better today. Denies any noted bleeding. No obvious bleeding reported. Cholecystostomy tube with drainage bag. No drainage noted. No new labs today. Patient afebrile at 98 F 04/21/2018 Patient up to bedside chair. N.p.o. status as per surgery Patient endorses intermittent nausea. No further vomiting today, emesis this a.m. Patient endorsing right upper quadrant tenderness on exam. 04/19/2018 WBC 9.4 hemoglobin 9.0 hematocrit 26.8 04/22/2018 current hemoglobin 8.8 WBC count 10.8, no obvious bleeding and currently denies any nausea vomiting or abdominal pain at present. Appreciate general surgery input and plan is for cholecystectomy Tuesday, on hold. No further GI procedures or workup is needed for now. Will sign off but call if any other acute issues arise or any obvious GI bleed Patient evaluated per myself and Dr. Calvo, note was written on her behalf <Teresa Azar - Last Filed: 04/22/18 10:57> (1) Intractable abdominal pain Status: Acute Code(s): R10.9 - Unspecified abdominal pain - Attending Attestation seen, examined agree with above constipation-milk of magnesia if not better dulcolax supp <Kimmie Calvo - Last Filed: 04/22/18 19:04>
[2018-04-23] MEDS: Bisacodyl 10 MG Supp RECTAL PRN (03:26)
[2018-04-23] MEDS: Insulin NovoLOG Aspart Correctional Sugar Inj SQ SCH ×5 (04:05→21:07)
[2018-04-23 05:07] LABS: Baso # (Auto) 0.1 th/mm3 (0.0-0.2); Baso % (Auto) 0.9 % (0.0-2.0); Eos # (Auto) 0.2 th/mm3 (0.0-0.4); Eos % (Auto) 1.8 % (0.0-4.0); Hematocrit 26.1 % (39.0-51.0); Hemoglobin 8.8 gm/dL (13.0-17.0); Lymph # (Auto) 1.9 th/mm3 (1.0-4.8); Lymph % (Auto) 19.4 % (9.0-44.0); Mean Corpuscular HGB Conc 33.9 % (32.0-36.0); Mean Corpuscular Hemoglobin 29.5 pg (27.0-34.0); Mean Corpuscular Volume 86.9 fL (80.0-100.0); Mean Platelet Volume 7.5 fL (7.0-11.0); Mono # (Auto) 0.9 th/mm3 (0.0-0.9); Mono % (Auto) 9.2 % (0.0-8.0); Neut # (Auto) 6.6 th/mm3 (1.8-7.7); Neut % (Auto) 68.7 % (16.0-70.0); Platelet Count 417 th/mm3 (150-450); Red Cell Distribution Width 16.2 % (11.6-17.2); White Blood Count 9.6 th/mm3 (4.0-11.0)
[2018-04-23 05:34] LABS: Alanine Aminotransferase 29 U/L (12-78); Anion Gap 7 meq/L (5-15); Aspartate Aminotransferase 29 U/L (15-37); Blood Urea Nitrogen 12 mg/dL (7-18); Calcium 7.7 mg/dL (8.5-10.1); Carbon Dioxide 29.2 meq/L (21.0-32.0); Chloride 101 meq/L (98-107); Glomerular Filtration Rate Greater Than 89 mL/min (>89); Glucose,Random 128 mg/dL (74-106); Magnesium 2.3 mg/dL (1.5-2.5); Potassium 4.3 meq/L (3.5-5.1); Sodium 137 meq/L (136-145)
[2018-04-23 05:37] LABS: Alkaline Phosphatase 130 U/L (45-117); Phosphorus 4.1 mg/dL (2.5-4.9); Total Protein 6.2 g/dL (6.4-8.2)
[2018-04-23] MEDS: Piperacil/Tazo 3.375 GM Premix 50 ML IV.SIG SCH ×3 (06:08→22:58)
[2018-04-23] MEDS: Senna/Docusate Sodium 8.6/50 MG Tablet PO SCH ×2 (08:22→20:20)
[2018-04-23] MEDS: Polyethylene Glycol 3350 17 GM Packet PO SCH (08:22)
[2018-04-23] MEDS: Multivitamin/Minerals Therapeutic Tablet PO SCH (08:22)
[2018-04-23] MEDS: Metoprolol Tartrate 25 MG Tablet PO SCH ×2 (08:23→20:20)
[2018-04-23] MEDS: Magnesium Oxide 400 MG Tablet PO SCH ×2 (08:23→20:20)
[2018-04-23] MEDS: Amiodarone 200 MG Tablet PO SCH ×2 (08:23→20:19)
[2018-04-23] MEDS: Docusate Sodium 100 MG Capsule PO SCH ×2 (08:24→20:19)
--- NOTE | 2018-04-23 10:06 | P.PN ---
Subjective Interval history: Follow up for non-STEMI, atrial fibrillation, cholecystitis. Patient is currently doing well. However he complains of no bowel movement for 3 days. Denies any chest pain, shortness of breath, fever or chills. Physical Exam Vital signs: Vital Signs 04/22/18 11:00 04/22/18 12:00 04/22/18 14:00 Temperature Pulse Rate 70 71 70 Respiratory Rate 18 Blood Pressure Pulse Oximetry 04/22/18 15:00 04/22/18 16:00 04/22/18 17:29 Temperature 98 F Pulse Rate 71 71 Respiratory Rate 20 Blood Pressure 120/68 Pulse Oximetry 96 04/22/18 18:00 04/22/18 19:00 04/22/18 20:00 Temperature 98 F Pulse Rate 71 65 64 Respiratory Rate 16 Blood Pressure 112/56 L Pulse Oximetry 04/22/18 21:00 04/22/18 22:00 04/22/18 23:00 Temperature 99.3 F Pulse Rate 63 64 65 Respiratory Rate 16 Blood Pressure 97/57 L Pulse Oximetry 04/23/18 00:00 04/23/18 01:00 04/23/18 02:00 Temperature Pulse Rate 57 L 62 81 Respiratory Rate Blood Pressure Pulse Oximetry 04/23/18 03:00 04/23/18 04:00 04/23/18 04:59 Temperature 98.8 F Pulse Rate 67 66 62 Respiratory Rate 16 Blood Pressure 99/51 L Pulse Oximetry 04/23/18 05:44 04/23/18 07:00 Temperature Pulse Rate 65 62 Respiratory Rate Blood Pressure Pulse Oximetry Intake & Output 04/22/18 04/23/18 04/23/18 18:59 06:59 18:59 Intake Total 5290 / 5290 340 / 340 Output Total 2850 / 2850 400 / 400 Balance 2440 / 2440 -60 / -60 Weight 102 kg Intake: IV 50 / 50 100 / 100 Zosyn 3.375 GM Premix 50 ML @ 50 / 50 100 / 100 100 mls/hr IV.SIG Q8H [facility] Rx#: [id number] Oral 240 / 240 240 / 240 Anesthesia Amount 3000 / 3000 Other 900 / 900 Autotransfusion Amount 600 / 600 Cell Saver Amount 500 / 500 Output: Urine 350 / 350 400 / 400 Emesis 200 / 200 Estimated Blood Loss 1500 / 1500 Urine Amount (Catheter) 800 / 800 3-way Urethral 800 / 800 Other: Other Intake Source Saline Solution # Voids 4 2 # Incontinent Voids 1 1 Date of Last Bowel Movement 04/20/18 # Bowel Movements 1 # Incontinent Bowel Movements 1 # Emeses 2 Narrative: GENERAL: Alert, oriented x3, NAD. SKIN: Warm and dry. HEAD: Normocephalic. EYES: No scleral icterus. No injection or drainage. NECK: Supple, trachea midline. No JVD or lymphadenopathy. CARDIOVASCULAR: Regular rate and rhythm without murmurs, gallops, or rubs. Status post CABG RESPIRATORY: Breath sounds equal bilaterally. No accessory muscle use. GASTROINTESTINAL: Abdomen soft, tender to palpation over the right upper quadrant, nondistended. MUSCULOSKELETAL: No cyanosis, or edema. BACK: Nontender without obvious deformity. No CVA tenderness. - Urinary Catheter Management 3-way Urethral Cath placed during this visit: yes, but has since been removed by the nurse Reason for continuing: Decision to DC catheter Insertion date: 04/13/18 Insertion time: 00:00 Removal date: 04/19/18 Removal time: 10:30 Results - Labs CBC & Chem 7: 04/23/18 04:34 04/23/18 04:34 Laboratory Results - last 24 hr 04/22/18 04/22/18 04/22/18 11:48 17:04 20:13 WBC RBC Hgb Hct MCV MCH MCHC RDW Plt Count MPV Neut % (Auto) Lymph % (Auto) [place] % (Auto) Eos % (Auto) Baso % (Auto) Neut # (Auto) Lymph # (Auto) [place] # (Auto) Eos # (Auto) Baso # (Auto) WBC Differential Differential Comment Sodium Potassium Chloride Carbon Dioxide Anion Gap BUN Creatinine Estimated GFR POC Glucose 161 H 158 H 155 H Random Glucose Calcium Phosphorus Magnesium Total Bilirubin AST ALT Alkaline Phosphatase Total Protein Albumin 04/23/18 04/23/18 04/23/18 03:18 04:34 04:34 WBC 9.6 RBC 3.00 L Hgb 8.8 L Hct 26.1 L MCV 86.9 MCH 29.5 MCHC 33.9 RDW 16.2 Plt Count 417 MPV 7.5 Neut % (Auto) 68.7 Lymph % (Auto) 19.4 [place] % (Auto) 9.2 H Eos % (Auto) 1.8 Baso % (Auto) 0.9 Neut # (Auto) 6.6 Lymph # (Auto) 1.9 [place] # (Auto) 0.9 Eos # (Auto) 0.2 Baso # (Auto) 0.1 WBC Differential . Differential Comment Auto diff final Sodium 137 Potassium 4.3 Chloride 101 Carbon Dioxide 29.2 Anion Gap 7 BUN 12 Creatinine 0.81 Estimated GFR Greater than 89 POC Glucose 130 H Random Glucose 128 H Calcium 7.7 L Phosphorus 4.1 Magnesium 2.3 Total Bilirubin 0.5 AST 29 ALT 29 Alkaline Phosphatase 130 H Total Protein 6.2 L Albumin 2.0 L 04/23/18 07:55 WBC RBC Hgb Hct MCV MCH MCHC RDW Plt Count MPV Neut % (Auto) Lymph % (Auto) [place] % (Auto) Eos % (Auto) Baso % (Auto) Neut # (Auto) Lymph # (Auto) [place] # (Auto) Eos # (Auto) Baso # (Auto) WBC Differential Differential Comment Sodium Potassium Chloride Carbon Dioxide Anion Gap BUN Creatinine Estimated GFR POC Glucose 143 H Random Glucose Calcium Phosphorus Magnesium Total Bilirubin AST ALT Alkaline Phosphatase Total Protein Albumin - Imaging Abdomen/Pelvis CT 03/19/18 10:38 CONCLUSION: 1. Short segmental concentric wall thickening is identified in the distal descending colon. Colon malignancy needs to be excluded. 2. Calcified gallstones with moderate distention of the gallbladder. 3. No other significant abnormality. Chest CTA 03/19/18 13:37 CONCLUSION: 1. No evidence of acute pulmonary embolism. 2. Mild subpleural airspace disease and reticulations which may be chronic. 3. No evidence of segmental or lobar lung consolidation. Abdomen/Pelvis CTA 03/22/18 00:00 CONCLUSION: 1. Prominent gallbladder distention and surrounding inflammatory changes consistent with cholecystitis 2. No acute vascular findings in the abdomen or pelvis. Percutaneous Cholangiogram 03/22/18 00:00 CONCLUSION: 1. Uncomplicated percutaneous cholecystostomy as above. Carotid Doppler Study 03/25/18 12:49 CONCLUSION: 1. Right Internal Carotid Artery: No significant plaque or narrowing. 2. Left Internal Carotid Artery: No significant plaque or narrowing. Lower Extremity Ultrasound 03/25/18 12:49 CONCLUSION: Bilateral greater saphenous vein measurements as above. No acute abnormalities are demonstrated. Venous Doppler Study 03/25/18 12:49 CONCLUSION: Negative study. No venous thrombosis of either lower extremity. Chest X-Ray 03/26/18 00:00 CONCLUSION: Mild basilar airspace disease with trace pleural fluid. No pneumothorax. Percutaneous Cholangiogram 03/31/18 00:00 CONCLUSION: Uncomplicated percutaneous cholecystostomy as above. Cholangiopancreatography MRI 04/03/18 17:20 CONCLUSION: 1. Numerous filling defects within the central intrahepatic biliary ducts, common hepatic ducts, and common bile ducts. These represent stones and/or thrombus/hemorrhage. The linear defects are more likely related to hemorrhage. 2. Dilatation of the gallbladder with thickened gallbladder wall and a cholecystostomy tube in place. There is heterogeneous material within the gallbladder. Abdomen/Bladder Ultrasound 04/07/18 00:00 CONCLUSION: 1. No findings to account for the patient's hematuria. 2. Nonvisualization of the left kidney. 3. No evidence of hydronephrosis or nephrolithiasis in the right kidney. Chest X-Ray 04/14/18 13:36 CONCLUSION: Satisfactory postop appearance Chest X-Ray 04/15/18 05:00 CONCLUSION: 1. Stable small left pleural effusion with associated volume loss and/or airspace consolidation. There is also stable mild atelectasis or consolidation at the right lung base. 2. Left chest tube remains present and no pneumothorax is visualized. Chest X-Ray 04/19/18 06:00 CONCLUSION: No pneumothorax following chest tube removal. Persistent bibasilar consolidation. Abdomen X-Ray 04/21/18 00:00 CONCLUSION: Nonobstructive bowel gas pattern. Moderate to large stool throughout the colon. - Procedures CABG X3 ON 04-14 THOMAS-->LAD, SVG-->OM, SVG-->PDA PREPROCEDURE DIAGNOSES 1. Severe Multi Vessel Coronary Artery Disease. 2. Acute Myocardial Infarction (NSTEMI) 3. Acute Cholecystitis s/p percutaneous cholecystostomy tube placement 4. Sepsis and Bacteremia 5. Severe Pulmonary Insufficiency 6. Intramyocardial Coronary Vessels POSTPROCEDURE DIAGNOSES Same SURGICAL PROCEDURE 1. Urgent Off-pump Coronary Artery Bypass Grafting x 3 with Left Internal Mammary Artery (THOMAS) to Left Anterior Descending (LAD), reverse saphenous vein graft to obtuse Marginal branch of the left Circumflex artery, reverse saphenous vein graft to the posterior Descending branch of the right Coronary artery 2. Left leg Endoscopic Vein [place] 3. Ultrasound-guided dissection of the LAD 4. Intraoperative Vein Mapping. Assessment and Plan - Assessment (1) Coronary artery disease involving [place] coronary artery Code(s): I25.10 - Atherosclerotic heart disease of [place] coronary artery without angina pectoris Status: Acute (2) S/P CABG (coronary artery bypass graft) Code(s): Z95.1 - Presence of aortocoronary bypass graft Status: Acute - Plan Mr. Bridges is a pleasant 67-year-old male with history of prior gastric bypass who has acute clinical course has been complicated by acute cholecystitis and Klebsiella, E. coli bacteremia requiring a week of IV antibiotics, now complicated by acute non-ST elevation myocardial infarction and underwent urgent off-pump CABG x 3 (THOMAS-->LAD, SVG-->OM, SVG-->PDA) on 04/14. NSTEMI Coronary artery disease -s/p Off-pump CABG (THOMAS-->LAD, SVG-->OM, SVG-->PDA) 04/14/2018 -EF 60-65%, trace to mild MR on [facility] this admission Continue aspirin 81 mg, atorvastatin 20 mg, Plavix 75 mg Continue metoprolol 25 mg twice daily. Continue amiodarone 400 mg p.o. every 12 hours. Atrial fibrillation -currently in normal sinus rhythm. New onset. Patient is currently on beta-janeth as well as amiodarone. Patient is on Apixaban - currently on hold due to anticipated cholecystectomy on 04/24/2018. Diabetes mellitus Continue sliding scale insulin. Goal blood glucose 140-180. Acute cholecystitis E. coli and Klebsiella bacteremia -resolved General surgery to consider cholecystectomy on 04/24/2018. Continue to hold apixaban and patient will be n.p.o. midnight. Hematuria Appreciate urology input. Negative cystoscopy. [place] management per urology recommendations. Constipation Discussed with nursing staff. Patient may need some suppository or enema. Full code. Restart apixaban when okay with general surgery.
--- NOTE | 2018-04-23 12:11 | P.PNCV ---
- Note CVT: Post Op Day #: 9 Subjective/Hospital Course: 67-year-old male who presented to [facility] 03/19/18 due to nausea, vomiting and abdominal pain. He states that he was awakened at 6 a.m. with left -sided flank pain and left mid back pain radiating to the left lower quadrant. He developed nausea and vomiting secondary to the pain. he was incidentally found to have cholecystitis, perc burt tube was placed , Trop was + underwent cardiac cath by Dr Pérez : mid LAD 80%, Left Circ 70 % lesion, RCA 100% occluded in the mid portion with [id number] and right-to- right collaterals supplying the distal portion. Blood cultures grew klebsiella pneumoniae and E coli , followed by ID and recommended to at least complete one week course of IV antibiotics prior to surgery PAST MEDICAL HISTORY: Diabetes, GERD, Hyperlipidemia, morbid obesity with BMI 40, History of gastric bypass. 03/27 pt is pain free at this time , has perc burt drain US of lower ext neg for DVT, Carotid US no stenosis continues on IV antibiotics per ID : VIVIENNE cefepime IV Ceftriaxone IV once a day (stop date: 04/03/2018) after which we will repeat BCX on 04/04/18. If these repeat bcx are negative at 48 hrs and patient clinically doing well will clear him from CABG. VIVIENNE Flagyl consult PT 03/28 pain free will follow / schedule for surgery next week when cleared by ID 03/29 still has some mild right flank pain burt drain in place no chest pain 04/03 c/o of nausea and vomiting since last night , also some abdominal pain for repeat CT abdomen today also repeat Blood cultures pending 04/05 still complaining of nausea and vomiting burt drain in place 04/10 events noted over weekend blood culture neg 04/03 , off all antibiotics still has burt drain , nursing flushing periodically per Uro / will perform bedside cystoscopy at bedside this week / urine has cleared since Heparin vivienne General surgery / will see after 3-4 weeks after CABG to eval for cholecystectomy will discuss timing for surgery with Dr Carlin no further complaints of nausea / vomiting 04/11 resting comfortably await bedside cystoscopy/ and clearance from urology then plan for timing of CABG, needs to be placed back on ASA 04/12 cleared by Urology for surgery " s/p bedside [place] cystoscopy did not show any abnormalities within the bladder there were no bladder tumors identified. Retroflex examination of the bladder neck showed an area of friability at the prostate which was most likely the area that was bleeding at the time. per Urology: recommend placement of 3 way scales prior to surgery pt ambulating with walker, no nausea scheduled for surgery on tuesday will need 3 way cath placed by urology on 04/[address] catheter placed by Urology stable for surgery in am 04/14 SURGICAL PROCEDURE 1. Urgent Off-pump Coronary Artery Bypass Grafting x 3 with Left Internal Mammary Artery (THOMAS) to Left Anterior Descending (LAD), reverse saphenous vein graft to obtuse Marginal branch of the left Circumflex artery, reverse saphenous vein graft to the posterior Descending branch of the right Coronary artery 2. Left leg Endoscopic Vein [place] 3. Ultrasound-guided dissection of the LAD 4. Intraoperative Vein Mapping. 04/15 Doing well clinically Weaning [place]-Synephrine drip as tolerated Awaiting LFT results Maintain in ICU Continue chest tube to drainage 04/16 Clinically and hematocrit stable New onset atrial fibrillation last night. Presently in normal sinus rhythm on amiodarone drip Increase beta-janeth to 25 twice daily Okay to transfer to [facility] later today 04/17 converted to NSR transition to po amiodarone leave chest tubes in today / clots / bloody drainage OOB ambulate, gentle diuresis 04/18 converted to NSR, continue amiodarone po f/u labs in am if goes back into afib, will need NOAC chest tube dc without difficulty f/u CXR in am PT/OT eval for transfer to [place] next 24-48hrs 04/19 discharge summary completed had issues with low blood sugars levemir dc insulin sliding scale dosing decreased 04/20 BGM's improved discussed with Dr Pérez will start eliquis, dc plavix stable to transfer to rehab today 04/21 pt having reoccurring nausea and vomiting with some abdominal discomfort does not feel as well today Dr Hall notified , ok to hold eliquis 48hrs prior to any procedure ok for Lap burt per Dr Carlin 04/22/18 No c/o presently. preop for Tuesday for CCx 04/23/18 No complaints today. Preop for CCX Objective: Vital Signs - 24 hr 04/22/18 14:00 04/22/18 15:00 04/22/18 16:00 Temperature 98 F Pulse Rate 70 71 71 Respiratory Rate 20 Blood Pressure 120/68 Pulse Oximetry 04/22/18 17:29 04/22/18 18:00 04/22/18 19:00 Temperature 98 F Pulse Rate 71 65 Respiratory Rate 16 Blood Pressure 112/56 L Pulse Oximetry 96 04/22/18 20:00 04/22/18 21:00 04/22/18 22:00 Temperature Pulse Rate 64 63 64 Respiratory Rate Blood Pressure Pulse Oximetry 04/22/18 23:00 04/23/18 00:00 04/23/18 01:00 Temperature 99.3 F Pulse Rate 65 57 L 62 Respiratory Rate 16 Blood Pressure 97/57 L Pulse Oximetry 04/23/18 02:00 04/23/18 03:00 04/23/18 04:00 Temperature 98.8 F Pulse Rate 81 67 66 Respiratory Rate 16 Blood Pressure 99/51 L Pulse Oximetry 04/23/18 04:59 04/23/18 05:44 04/23/18 07:00 Temperature Pulse Rate 62 65 62 Respiratory Rate Blood Pressure Pulse Oximetry 04/23/18 08:00 04/23/18 11:32 Temperature 98.4 F Pulse Rate 69 Respiratory Rate 20 Blood Pressure 90/50 L Pulse Oximetry 94 L 93 L Labs: Laboratory Results - last 12 hr 04/23/18 04/23/18 04/23/18 03:18 04:34 04:34 WBC 9.6 RBC 3.00 L Hgb 8.8 L Hct 26.1 L MCV 86.9 MCH 29.5 MCHC 33.9 RDW 16.2 Plt Count 417 MPV 7.5 Neut % (Auto) 68.7 Lymph % (Auto) 19.4 [place] % (Auto) 9.2 H Eos % (Auto) 1.8 Baso % (Auto) 0.9 Neut # (Auto) 6.6 Lymph # (Auto) 1.9 [place] # (Auto) 0.9 Eos # (Auto) 0.2 Baso # (Auto) 0.1 WBC Differential . Differential Comment Auto diff final Sodium 137 Potassium 4.3 Chloride 101 Carbon Dioxide 29.2 Anion Gap 7 BUN 12 Creatinine 0.81 Estimated GFR Greater than 89 POC Glucose 130 H Random Glucose 128 H Calcium 7.7 L Phosphorus 4.1 Magnesium 2.3 Total Bilirubin 0.5 AST 29 ALT 29 Alkaline Phosphatase 130 H Total Protein 6.2 L Albumin 2.0 L 04/23/18 04/23/18 07:55 11:38 WBC RBC Hgb Hct MCV MCH MCHC RDW Plt Count MPV Neut % (Auto) Lymph % (Auto) [place] % (Auto) Eos % (Auto) Baso % (Auto) Neut # (Auto) Lymph # (Auto) [place] # (Auto) Eos # (Auto) Baso # (Auto) WBC Differential Differential Comment Sodium Potassium Chloride Carbon Dioxide Anion Gap BUN Creatinine Estimated GFR POC Glucose 143 H 211 H Random Glucose Calcium Phosphorus Magnesium Total Bilirubin AST ALT Alkaline Phosphatase Total Protein Albumin Result Diagrams: 04/23/18 04:34 04/23/18 04:34 Imaging: Abdomen/Pelvis CT 03/19/18 10:38 CONCLUSION: 1. Short segmental concentric wall thickening is identified in the distal descending colon. Colon malignancy needs to be excluded. 2. Calcified gallstones with moderate distention of the gallbladder. 3. No other significant abnormality. Chest CTA 03/19/18 13:37 CONCLUSION: 1. No evidence of acute pulmonary embolism. 2. Mild subpleural airspace disease and reticulations which may be chronic. 3. No evidence of segmental or lobar lung consolidation. Abdomen/Pelvis CTA 03/22/18 00:00 CONCLUSION: 1. Prominent gallbladder distention and surrounding inflammatory changes consistent with cholecystitis 2. No acute vascular findings in the abdomen or pelvis. Carotid Doppler Study 03/25/18 12:49 CONCLUSION: 1. Right Internal Carotid Artery: No significant plaque or narrowing. 2. Left Internal Carotid Artery: No significant plaque or narrowing. Lower Extremity Ultrasound 03/25/18 12:49 CONCLUSION: Bilateral greater saphenous vein measurements as above. No acute abnormalities are demonstrated. Venous Doppler Study 03/25/18 12:49 CONCLUSION: Negative study. No venous thrombosis of either lower extremity. Percutaneous Cholangiogram 03/31/18 00:00 CONCLUSION: Uncomplicated percutaneous cholecystostomy as above. Cholangiopancreatography MRI 04/03/18 17:20 CONCLUSION: 1. Numerous filling defects within the central intrahepatic biliary ducts, common hepatic ducts, and common bile ducts. These represent stones and/or thrombus/hemorrhage. The linear defects are more likely related to hemorrhage. 2. Dilatation of the gallbladder with thickened gallbladder wall and a cholecystostomy tube in place. There is heterogeneous material within the gallbladder. Abdomen/Bladder Ultrasound 04/07/18 00:00 CONCLUSION: 1. No findings to account for the patient's hematuria. 2. Nonvisualization of the left kidney. 3. No evidence of hydronephrosis or nephrolithiasis in the right kidney. Chest X-Ray 04/19/18 06:00 CONCLUSION: No pneumothorax following chest tube removal. Persistent bibasilar consolidation. Abdomen X-Ray 04/21/18 00:00 CONCLUSION: Nonobstructive bowel gas pattern. Moderate to large stool throughout the colon. Cardiovascular: RRR Pulmonary: CTA GI/: NABS Incision: dry and intact - Plan (1) Coronary artery disease involving [place] coronary artery Plan: ASA, statin, BB , amiodarone reoccurring nausea and vomiting / stable LFT pulm toileting nebs, ezpap , acapella OOB/ PT (3) Afib Plan: in NSR > afib transition to po amiodarone (4) Cholecystitis Plan: s/p perc drain / accidentally dislodged general surgery to re-see pt 2/2 re-occurring nausea and vomiting Cholecystectomy tomorrow. NPO after MN
--- NOTE | 2018-04-23 14:07 | P.PNGI ---
Subjective Interval history: Patient sitting up in chair answering simple questions is noted to have some gradual improvement in lower extremity edema Denies any abdominal pain no nausea no vomiting tolerating clear liquids <DoeTeresa M - Last Filed: 04/23/18 14:08> Physical Exam Vital signs: Vital Signs 04/22/18 15:00 04/22/18 16:00 04/22/18 17:29 Temperature 98 F Pulse Rate 71 71 Respiratory Rate 20 Blood Pressure 120/68 Pulse Oximetry 96 04/22/18 18:00 04/22/18 19:00 04/22/18 20:00 Temperature 98 F Pulse Rate 71 65 64 Respiratory Rate 16 Blood Pressure 112/56 L Pulse Oximetry 04/22/18 21:00 04/22/18 22:00 04/22/18 23:00 Temperature 99.3 F Pulse Rate 63 64 65 Respiratory Rate 16 Blood Pressure 97/57 L Pulse Oximetry 04/23/18 00:00 04/23/18 01:00 04/23/18 02:00 Temperature Pulse Rate 57 L 62 81 Respiratory Rate Blood Pressure Pulse Oximetry 04/23/18 03:00 04/23/18 04:00 04/23/18 04:59 Temperature 98.8 F Pulse Rate 67 66 62 Respiratory Rate 16 Blood Pressure 99/51 L Pulse Oximetry 04/23/18 05:44 04/23/18 07:00 04/23/18 08:00 Temperature 98.4 F Pulse Rate 65 62 69 Respiratory Rate 20 Blood Pressure 90/50 L Pulse Oximetry 94 L 04/23/18 11:00 04/23/18 11:32 04/23/18 12:00 Temperature 98 F Pulse Rate 60 64 Respiratory Rate 20 Blood Pressure 81/50 L Pulse Oximetry 96 93 L Intake & Output 04/22/18 04/23/18 04/23/18 18:59 06:59 18:59 Intake Total 5290 / 5290 340 / 340 Output Total 2850 / 2850 400 / 400 Balance 2440 / 2440 -60 / -60 Weight 102 kg Intake: IV 50 / 50 100 / 100 Zosyn 3.375 GM Premix 50 ML @ 50 / 50 100 / 100 100 mls/hr IV.SIG Q8H [facility] Rx#: [id number] Oral 240 / 240 240 / 240 Anesthesia Amount 3000 / 3000 Other 900 / 900 Autotransfusion Amount 600 / 600 Cell Saver Amount 500 / 500 Output: Urine 350 / 350 400 / 400 Emesis 200 / 200 Estimated Blood Loss 1500 / 1500 Urine Amount (Catheter) 800 / 800 3-way Urethral 800 / 800 Other: Other Intake Source Saline Solution # Voids 4 2 # Incontinent Voids 1 1 Date of Last Bowel Movement 04/20/18 04/23/18 # Bowel Movements 1 # Incontinent Bowel Movements 1 # Emeses 2 - Constitutional mild distress, obese (Abdomen), chronically ill appearing, disheveled, cooperative - Routine HEENT Exam Head: Present: normocephalic ENT: Present: mucous membranes moist - Routine Respiratory Exam Present: decreased breath sounds (Low volumes but no audible shortness of breath at rest) - Routine Cardiovascular Exam Present: S1, S2 - Routine Abdominal Exam Present: soft (Obese, large, occasional right upper quadrant discomfort but no pain at this time) - Urinary Catheter Management 3-way Urethral Cath placed during this visit: yes, but has since been removed by the nurse Reason for continuing: Decision to DC catheter Insertion date: 04/13/18 Insertion time: 00:00 Removal date: 04/19/18 Removal time: 10:30 <Teresa Azar - Last Filed: 04/23/18 14:08> Vital signs: Vital Signs 04/22/18 16:00 04/22/18 17:29 04/22/18 18:00 Temperature Pulse Rate 71 71 Respiratory Rate Blood Pressure Pulse Oximetry 96 04/22/18 19:00 04/22/18 20:00 04/22/18 21:00 Temperature 98 F Pulse Rate 65 64 63 Respiratory Rate 16 Blood Pressure 112/56 L Pulse Oximetry 04/22/18 22:00 04/22/18 23:00 04/23/18 00:00 Temperature 99.3 F Pulse Rate 64 65 57 L Respiratory Rate 16 Blood Pressure 97/57 L Pulse Oximetry 04/23/18 01:00 04/23/18 02:00 04/23/18 03:00 Temperature 98.8 F Pulse Rate 62 81 67 Respiratory Rate 16 Blood Pressure 99/51 L Pulse Oximetry 04/23/18 04:00 04/23/18 04:59 04/23/18 05:44 Temperature Pulse Rate 66 62 65 Respiratory Rate Blood Pressure Pulse Oximetry 04/23/18 07:00 04/23/18 08:00 04/23/18 11:00 Temperature 98.4 F 98 F Pulse Rate 62 69 60 Respiratory Rate 20 20 Blood Pressure 90/50 L 81/50 L Pulse Oximetry 94 L 96 04/23/18 11:32 04/23/18 12:00 Temperature Pulse Rate 64 Respiratory Rate Blood Pressure Pulse Oximetry 93 L Intake & Output 04/22/18 04/23/18 04/23/18 18:59 06:59 18:59 Intake Total 5290 / 5290 340 / 340 Output Total 2850 / 2850 400 / 400 Balance 2440 / 2440 -60 / -60 Weight 102 kg Intake: IV 50 / 50 100 / 100 Zosyn 3.375 GM Premix 50 ML @ 50 / 50 100 / 100 100 mls/hr IV.SIG Q8H [facility] Rx#: [id number] Oral 240 / 240 240 / 240 Anesthesia Amount 3000 / 3000 Other 900 / 900 Autotransfusion Amount 600 / 600 Cell Saver Amount 500 / 500 Output: Urine 350 / 350 400 / 400 Emesis 200 / 200 Estimated Blood Loss 1500 / 1500 Urine Amount (Catheter) 800 / 800 3-way Urethral 800 / 800 Other: Other Intake Source Saline Solution # Voids 4 2 # Incontinent Voids 1 1 Date of Last Bowel Movement 04/20/18 04/23/18 # Bowel Movements 1 # Incontinent Bowel Movements 1 # Emeses 2 - Urinary Catheter Management 3-way Urethral Cath placed during this visit: no <Kimmie Calvo - Last Filed: 04/23/18 15:28> Results - Labs CBC & Chem 7: 04/23/18 04:34 04/23/18 04:34 Laboratory Results - last 24 hr 04/22/18 04/22/18 04/23/18 17:04 20:13 03:18 WBC RBC Hgb Hct MCV MCH MCHC RDW Plt Count MPV Neut % (Auto) Lymph % (Auto) [place] % (Auto) Eos % (Auto) Baso % (Auto) Neut # (Auto) Lymph # (Auto) [place] # (Auto) Eos # (Auto) Baso # (Auto) WBC Differential Differential Comment Sodium Potassium Chloride Carbon Dioxide Anion Gap BUN Creatinine Estimated GFR POC Glucose 158 H 155 H 130 H Random Glucose Calcium Phosphorus Magnesium Total Bilirubin AST ALT Alkaline Phosphatase Total Protein Albumin 04/23/18 04/23/18 04/23/18 04:34 04:34 07:55 WBC 9.6 RBC 3.00 L Hgb 8.8 L Hct 26.1 L MCV 86.9 MCH 29.5 MCHC 33.9 RDW 16.2 Plt Count 417 MPV 7.5 Neut % (Auto) 68.7 Lymph % (Auto) 19.4 [place] % (Auto) 9.2 H Eos % (Auto) 1.8 Baso % (Auto) 0.9 Neut # (Auto) 6.6 Lymph # (Auto) 1.9 [place] # (Auto) 0.9 Eos # (Auto) 0.2 Baso # (Auto) 0.1 WBC Differential . Differential Comment Auto diff final Sodium 137 Potassium 4.3 Chloride 101 Carbon Dioxide 29.2 Anion Gap 7 BUN 12 Creatinine 0.81 Estimated GFR Greater than 89 POC Glucose 143 H Random Glucose 128 H Calcium 7.7 L Phosphorus 4.1 Magnesium 2.3 Total Bilirubin 0.5 AST 29 ALT 29 Alkaline Phosphatase 130 H Total Protein 6.2 L Albumin 2.0 L 04/23/18 11:38 WBC RBC Hgb Hct MCV MCH MCHC RDW Plt Count MPV Neut % (Auto) Lymph % (Auto) [place] % (Auto) Eos % (Auto) Baso % (Auto) Neut # (Auto) Lymph # (Auto) [place] # (Auto) Eos # (Auto) Baso # (Auto) WBC Differential Differential Comment Sodium Potassium Chloride Carbon Dioxide Anion Gap BUN Creatinine Estimated GFR POC Glucose 211 H Random Glucose Calcium Phosphorus Magnesium Total Bilirubin AST ALT Alkaline Phosphatase Total Protein Albumin - Procedures CABG X3 ON 04-14 THOMAS-->LAD, SVG-->OM, SVG-->PDA PREPROCEDURE DIAGNOSES 1. Severe Multi Vessel Coronary Artery Disease. 2. Acute Myocardial Infarction (NSTEMI) 3. Acute Cholecystitis s/p percutaneous cholecystostomy tube placement 4. Sepsis and Bacteremia 5. Severe Pulmonary Insufficiency 6. Intramyocardial Coronary Vessels POSTPROCEDURE DIAGNOSES Same SURGICAL PROCEDURE 1. Urgent Off-pump Coronary Artery Bypass Grafting x 3 with Left Internal Mammary Artery (THOMAS) to Left Anterior Descending (LAD), reverse saphenous vein graft to obtuse Marginal branch of the left Circumflex artery, reverse saphenous vein graft to the posterior Descending branch of the right Coronary artery 2. Left leg Endoscopic Vein Bliss 3. Ultrasound-guided dissection of the LAD 4. Intraoperative Vein Mapping. <Teresa Azar - Last Filed: 04/23/18 14:08> - Labs CBC & Chem 7: 04/23/18 04:34 04/23/18 04:34 Laboratory Results - last 24 hr 04/22/18 04/22/18 04/23/18 17:04 20:13 03:18 WBC RBC Hgb Hct MCV MCH MCHC RDW Plt Count MPV Neut % (Auto) Lymph % (Auto) [place] % (Auto) Eos % (Auto) Baso % (Auto) Neut # (Auto) Lymph # (Auto) [place] # (Auto) Eos # (Auto) Baso # (Auto) WBC Differential Differential Comment Sodium Potassium Chloride Carbon Dioxide Anion Gap BUN Creatinine Estimated GFR POC Glucose 158 H 155 H 130 H Random Glucose Calcium Phosphorus Magnesium Total Bilirubin AST ALT Alkaline Phosphatase Total Protein Albumin 04/23/18 04/23/18 04/23/18 04:34 04:34 07:55 WBC 9.6 RBC 3.00 L Hgb 8.8 L Hct 26.1 L MCV 86.9 MCH 29.5 MCHC 33.9 RDW 16.2 Plt Count 417 MPV 7.5 Neut % (Auto) 68.7 Lymph % (Auto) 19.4 [place] % (Auto) 9.2 H Eos % (Auto) 1.8 Baso % (Auto) 0.9 Neut # (Auto) 6.6 Lymph # (Auto) 1.9 [place] # (Auto) 0.9 Eos # (Auto) 0.2 Baso # (Auto) 0.1 WBC Differential . Differential Comment Auto diff final Sodium 137 Potassium 4.3 Chloride 101 Carbon Dioxide 29.2 Anion Gap 7 BUN 12 Creatinine 0.81 Estimated GFR Greater than 89 POC Glucose 143 H Random Glucose 128 H Calcium 7.7 L Phosphorus 4.1 Magnesium 2.3 Total Bilirubin 0.5 AST 29 ALT 29 Alkaline Phosphatase 130 H Total Protein 6.2 L Albumin 2.0 L 04/23/18 11:38 WBC RBC Hgb Hct MCV MCH MCHC RDW Plt Count MPV Neut % (Auto) Lymph % (Auto) [place] % (Auto) Eos % (Auto) Baso % (Auto) Neut # (Auto) Lymph # (Auto) [place] # (Auto) Eos # (Auto) Baso # (Auto) WBC Differential Differential Comment Sodium Potassium Chloride Carbon Dioxide Anion Gap BUN Creatinine Estimated GFR POC Glucose 211 H Random Glucose Calcium Phosphorus Magnesium Total Bilirubin AST ALT Alkaline Phosphatase Total Protein Albumin <Kimmie Calvo - Last Filed: 04/23/18 15:28> Assessment and Plan (1) Intractable abdominal pain Status: Acute Code(s): R10.9 - Unspecified abdominal pain - Plan Assessment: - Colon wall thickening- CT abdomen and pelvis (03/19) Short segmental concentric wall thickening is identified in the distal descending colon. Colon malignancy needs to be excluded. Calcified gallstones with moderate distention of the gallbladder. Patient states last EGD/colonoscopy was done in 2006 prior to gastric bypass surgery. Reportedly normal exam. Family history of gastric cancer-he states his brother of gastric cancer at the age of 3838 years old. EGD/colonoscopy recommended when pt is cleared by cardiology and is stable - Acute cholecystitis - CTA abd/pelvis done to rule out mesenteric ischemia yesterday CTA abd/pelvis (03/22) Prominent gallbladder distention and surrounding inflammatory changes consistent with cholecystitis No acute vascular findings in the abdomen or pelvis. Poor surgical candidate, S/P cholecystostomy tube placement by IR. GS following - Klebsiella Pneumoniae bacteremia- ID following to determine etiology. KELLY negative for vegetation. Suspect secondary to acute cholecystitis - A-fib with RVR and elevated troponin- now rate controlled, on Amiodarone gtt, on Heparin- cardiology following (03/24) S/P cardiac cath- multivessel CAD, cardiothoracic surgery has been consulted. Dark bile output from cholecystostomy tube. 03/25/2018, continues with some right-sided abdominal pain around the area of right biliary drainage tube which shows small amount of dark bilious drainage Constipation questionable bowel movement states none in the past 6 days, will review medications Continues with IV fluids at 100 cc an hour. Until cardiothoracic consult and clearance for any further GI workup will follow as needed Hemoglobin stable at 9.8 and WBC count 13 no obvious bleeding 04/04/2018 Our service has been asked to see patient due to increasing liver function tests , possibly passed stone. Cholecystostomy tube in place with scant drainage noted in drainage coin collector bag. WBC 15.3 hemoglobin 9.8 hematocrit 30.3 total bilirubin 3.0 AST 228 ALT 170 alk phos 697 04/03/2018 MRCP revealed the following-- 1. Numerous filling defects within the central intrahepatic biliary ducts, common hepatic ducts, and common bile ducts. These represent stones and/or thrombus/hemorrhage. The linear defects are more likely related to hemorrhage. 2. Dilatation of the gallbladder with thickened gallbladder wall and a cholecystostomy tube in place. There is heterogeneous material within the gallbladder. 04/07/2018 Consultation to IR for evaluation of cholecystostomy tube. As per my discussion with Dr. Ramos, intervention to evaluate for patency of cholecystostomy tube not indicated at this time as drainage under previous evaluation noted to be "honey thick". WBC 11.8 hemoglobin 8.9 hematocrit 26.6 platelet count 411 total bilirubin 0.6 AST 65 ALT 80 alk phos 456 all trending down Patient afebrile at 98.4 04/08/2018 Patient up to bedside, reports feeling much better today. Denies any noted bleeding. No obvious bleeding reported. Cholecystostomy tube with drainage bag. No drainage noted. No new labs today. Patient afebrile at 98 F 04/21/2018 Patient up to bedside chair. N.p.o. status as per surgery Patient endorses intermittent nausea. No further vomiting today, emesis this a.m. Patient endorsing right upper quadrant tenderness on exam. 04/19/2018 WBC 9.4 hemoglobin 9.0 hematocrit 26.8 04/22/2018 current hemoglobin 8.8 WBC count 10.8, no obvious bleeding and currently denies any nausea vomiting or abdominal pain at present. Appreciate general surgery input and plan is for cholecystectomy Tuesday, on hold. No further GI procedures or workup is needed for now. Will sign off but call if any other acute issues arise or any obvious GI bleed Patient evaluated per myself and Dr. Calvo, note was written on her behalf 04/23/2018, no acute abdominal pain, occasional right upper quadrant discomfort no nausea no vomiting tolerating clear liquid Plan for surgical procedure in a.m. cholecystectomy, stable from a GI perspective plan . Okay to follow-up with GI on an outpatient basis Patient was seen per myself and Dr. Calvo, note was written on her behalf <Teresa Azar - Last Filed: 04/23/18 14:08> (1) Intractable abdominal pain Status: Acute Code(s): R10.9 - Unspecified abdominal pain - Attending Attestation seen, examined agree with above <Kimmie Calvo - Last Filed: 04/23/18 15:28>
--- NOTE | 2018-04-23 16:13 | P.PNGS ---
Subjective Patient reports: no new complaints Physical Exam Vital signs: Vital Signs 04/22/18 17:29 04/22/18 18:00 04/22/18 19:00 Temperature 98 F Pulse Rate 71 65 Respiratory Rate 16 Blood Pressure 112/56 L Pulse Oximetry 96 04/22/18 20:00 04/22/18 21:00 04/22/18 22:00 Temperature Pulse Rate 64 63 64 Respiratory Rate Blood Pressure Pulse Oximetry 04/22/18 23:00 04/23/18 00:00 04/23/18 01:00 Temperature 99.3 F Pulse Rate 65 57 L 62 Respiratory Rate 16 Blood Pressure 97/57 L Pulse Oximetry 04/23/18 02:00 04/23/18 03:00 04/23/18 04:00 Temperature 98.8 F Pulse Rate 81 67 66 Respiratory Rate 16 Blood Pressure 99/51 L Pulse Oximetry 04/23/18 04:59 04/23/18 05:44 04/23/18 07:00 Temperature Pulse Rate 62 65 62 Respiratory Rate Blood Pressure Pulse Oximetry 04/23/18 08:00 04/23/18 11:00 04/23/18 11:32 Temperature 98.4 F 98 F Pulse Rate 69 60 Respiratory Rate 20 20 Blood Pressure 90/50 L 81/50 L Pulse Oximetry 94 L 96 93 L 04/23/18 12:00 04/23/18 15:00 Temperature 97.6 F Pulse Rate 64 63 Respiratory Rate 16 Blood Pressure 92/57 L Pulse Oximetry 96 Intake & Output 04/22/18 04/23/18 04/23/18 18:59 06:59 18:59 Intake Total 5290 / 5290 340 / 340 Output Total 2850 / 2850 400 / 400 Balance 2440 / 2440 -60 / -60 Weight 102 kg Intake: IV 50 / 50 100 / 100 Zosyn 3.375 GM Premix 50 ML @ 50 / 50 100 / 100 100 mls/hr IV.SIG Q8H [facility] Rx#: [id number] Oral 240 / 240 240 / 240 Anesthesia Amount 3000 / 3000 Other 900 / 900 Autotransfusion Amount 600 / 600 Cell Saver Amount 500 / 500 Output: Urine 350 / 350 400 / 400 Emesis 200 / 200 Estimated Blood Loss 1500 / 1500 Urine Amount (Catheter) 800 / 800 3-way Urethral 800 / 800 Other: Other Intake Source Saline Solution # Voids 4 2 # Incontinent Voids 1 1 Date of Last Bowel Movement 04/20/18 04/23/18 # Bowel Movements 1 # Incontinent Bowel Movements 1 # Emeses 2 - Constitutional no acute distress - Routine Abdominal Exam Present: soft, normoactive bowel sounds, tenderness. Absent: distended, rebound , guarding - Urinary Catheter Management 3-way Urethral Cath placed during this visit: yes, but has since been removed by the nurse Reason for continuing: Decision to DC catheter Insertion date: 04/13/18 Insertion time: 00:00 Removal date: 04/19/18 Removal time: 10:30 Results - Labs 04/23/18 04:34 04/23/18 04:34 Laboratory Results - last 24 hr 04/22/18 04/22/18 04/23/18 17:04 20:13 03:18 WBC RBC Hgb Hct MCV MCH MCHC RDW Plt Count MPV Neut % (Auto) Lymph % (Auto) [place] % (Auto) Eos % (Auto) Baso % (Auto) Neut # (Auto) Lymph # (Auto) [place] # (Auto) Eos # (Auto) Baso # (Auto) WBC Differential Differential Comment Sodium Potassium Chloride Carbon Dioxide Anion Gap BUN Creatinine Estimated GFR POC Glucose 158 H 155 H 130 H Random Glucose Calcium Phosphorus Magnesium Total Bilirubin AST ALT Alkaline Phosphatase Total Protein Albumin 04/23/18 04/23/18 04/23/18 04:34 04:34 07:55 WBC 9.6 RBC 3.00 L Hgb 8.8 L Hct 26.1 L MCV 86.9 MCH 29.5 MCHC 33.9 RDW 16.2 Plt Count 417 MPV 7.5 Neut % (Auto) 68.7 Lymph % (Auto) 19.4 [place] % (Auto) 9.2 H Eos % (Auto) 1.8 Baso % (Auto) 0.9 Neut # (Auto) 6.6 Lymph # (Auto) 1.9 [place] # (Auto) 0.9 Eos # (Auto) 0.2 Baso # (Auto) 0.1 WBC Differential . Differential Comment Auto diff final Sodium 137 Potassium 4.3 Chloride 101 Carbon Dioxide 29.2 Anion Gap 7 BUN 12 Creatinine 0.81 Estimated GFR Greater than 89 POC Glucose 143 H Random Glucose 128 H Calcium 7.7 L Phosphorus 4.1 Magnesium 2.3 Total Bilirubin 0.5 AST 29 ALT 29 Alkaline Phosphatase 130 H Total Protein 6.2 L Albumin 2.0 L 04/23/18 11:38 WBC RBC Hgb Hct MCV MCH MCHC RDW Plt Count MPV Neut % (Auto) Lymph % (Auto) [place] % (Auto) Eos % (Auto) Baso % (Auto) Neut # (Auto) Lymph # (Auto) [place] # (Auto) Eos # (Auto) Baso # (Auto) WBC Differential Differential Comment Sodium Potassium Chloride Carbon Dioxide Anion Gap BUN Creatinine Estimated GFR POC Glucose 211 H Random Glucose Calcium Phosphorus Magnesium Total Bilirubin AST ALT Alkaline Phosphatase Total Protein Albumin - Imaging Imaging: ITS Impressions Abdomen/Pelvis CT 03/19/18 10:38 CONCLUSION: 1. Short segmental concentric wall thickening is identified in the distal descending colon. Colon malignancy needs to be excluded. 2. Calcified gallstones with moderate distention of the gallbladder. 3. No other significant abnormality. Chest CTA 03/19/18 13:37 CONCLUSION: 1. No evidence of acute pulmonary embolism. 2. Mild subpleural airspace disease and reticulations which may be chronic. 3. No evidence of segmental or lobar lung consolidation. Abdomen/Pelvis CTA 03/22/18 00:00 CONCLUSION: 1. Prominent gallbladder distention and surrounding inflammatory changes consistent with cholecystitis 2. No acute vascular findings in the abdomen or pelvis. Carotid Doppler Study 03/25/18 12:49 CONCLUSION: 1. Right Internal Carotid Artery: No significant plaque or narrowing. 2. Left Internal Carotid Artery: No significant plaque or narrowing. Lower Extremity Ultrasound 03/25/18 12:49 CONCLUSION: Bilateral greater saphenous vein measurements as above. No acute abnormalities are demonstrated. Venous Doppler Study 03/25/18 12:49 CONCLUSION: Negative study. No venous thrombosis of either lower extremity. Percutaneous Cholangiogram 03/31/18 00:00 CONCLUSION: Uncomplicated percutaneous cholecystostomy as above. Cholangiopancreatography MRI 04/03/18 17:20 CONCLUSION: 1. Numerous filling defects within the central intrahepatic biliary ducts, common hepatic ducts, and common bile ducts. These represent stones and/or thrombus/hemorrhage. The linear defects are more likely related to hemorrhage. 2. Dilatation of the gallbladder with thickened gallbladder wall and a cholecystostomy tube in place. There is heterogeneous material within the gallbladder. Abdomen/Bladder Ultrasound 04/07/18 00:00 CONCLUSION: 1. No findings to account for the patient's hematuria. 2. Nonvisualization of the left kidney. 3. No evidence of hydronephrosis or nephrolithiasis in the right kidney. Chest X-Ray 04/19/18 06:00 CONCLUSION: No pneumothorax following chest tube removal. Persistent bibasilar consolidation. Abdomen X-Ray 04/21/18 00:00 CONCLUSION: Nonobstructive bowel gas pattern. Moderate to large stool throughout the colon. Assessment and Plan - Assessment (1) Intractable abdominal pain Code(s): R10.9 - Unspecified abdominal pain Status: Acute (2) NSTEMI (non-ST elevated myocardial infarction) Code(s): I21.4 - Non-ST elevation (NSTEMI) myocardial infarction Status: Acute (3) Afib Code(s): I48.91 - Unspecified atrial fibrillation Status: Acute (4) Cholecystitis Code(s): K81.9 - Cholecystitis, unspecified Status: Acute Plan: 67 year old male with afib RVR; s/p cardiac cath; cholecystics -S/p CABG -Emesis and RUQ tenderness has returned -LFTs normal -Will plan for laparoscopic cholecystectomy; possible open; possible IOC on Tuesday after Eliannette has been on hold for 48 hours -Obtain consents -Marco okay for today; hold starting Tuesday--- Discussed with Haley SALGADO -Okay for clear liquids is no nausea/vomiting -NPO after MN on Tuesday night -[place]
[2018-04-24] MEDS ORDERED: Metoprolol Tartrate 25 MG Tablet PO SCH (02:12)
[2018-04-24] MEDS ORDERED: Chlorhexidine Gluconate 2% 1 Pack (2 Cloths) TOPICAL ONE (02:12)
[2018-04-24] MEDS ORDERED: Sodium Chlor 0.9% Inj 500 ML IV.SIG SCH (03:00)
[2018-04-24] MEDS: Insulin NovoLOG Aspart Correctional Sugar Inj SQ SCH ×5 (04:26→21:34)
[2018-04-24] MEDS: Piperacil/Tazo 3.375 GM Premix 50 ML IV.SIG SCH ×3 (05:59→23:00)
[2018-04-24] MEDS: Polyethylene Glycol 3350 17 GM Packet PO SCH (08:31)
[2018-04-24] MEDS: Amiodarone 200 MG Tablet PO SCH (08:31)
[2018-04-24] MEDS: Metoprolol Tartrate 25 MG Tablet PO SCH ×2 (08:32→20:49)
[2018-04-24] MEDS: Senna/Docusate Sodium 8.6/50 MG Tablet PO SCH ×2 (08:32→20:53)
[2018-04-24] MEDS: Docusate Sodium 100 MG Capsule PO SCH ×2 (08:32→20:50)
[2018-04-24] MEDS: Magnesium Oxide 400 MG Tablet PO SCH ×2 (08:32→20:49)
[2018-04-24] MEDS: Multivitamin/Minerals Therapeutic Tablet PO SCH (08:33)
[2018-04-24] MEDS ORDERED: Bupivacaine/Epinephrine 0.5% Inj 50 ML Vial ONE (09:51)
[2018-04-24] MEDS ORDERED: *Ondansetron Inj 4 MG/2 ML Vial PERIprocedural Use ONLY ONE (13:06)
--- NOTE | 2018-04-24 13:10 | P.OP ---
- Preoperative Diagnosis (1) Cholecystitis - Postoperative Diagnosis (1) Acute gangrenous cholecystitis Date of procedure: 04/24/18 Procedure: Laparoscopic cholecystectomy Anesthesia: JESSIKA Surgeon: Tyler Hall MD Zigzag Appliquer: Tasha Haque CFA Estimated blood loss (mL): 500 IV fluids (mL): 1,800 Pathology: other (Gallbladder and contents to pathology) Operation and Findings: Patient was taken to the operating room and placed on the operating table in the supine position. After an adequate level of general endotracheal anesthesia was achieved the abdomen was prepped and draped in the usual fashion. Time-out was taken, confirming the correct patient, site, and procedure to be performed. Skin and subcutaneous tissue was infiltrated with local anesthetic and a supraumbilical incision was made in this morbidly obese patient. The peritoneal cavity was visualized and a 12 mm balloon trocar was inserted and the balloon inflated. The abdomen was insufflated. The patient was placed in reverse Trendelenburg position. A 5 mm trocar was placed to the right of the falciform ligament and the patient's omentum was seen to be plastered to the anterior abdominal wall where his previous cholecystostomy tube had been placed. This was taken down with gentle blunt dissection which then allowed for the other 2 trocars to be placed in the right subcostal region. These entered the abdominal cavity under direct vision uneventfully. Omentum was seen to also be plastered to the gallbladder; this was taken down with blunt dissection and minimal use of electrocautery. Colon was also adhered to the gallbladder; care was taken to very carefully peel the colon off of the gallbladder. This was done with blunt dissection only. No injuries were noted to the colon. The gallbladder was then grasped and retracted upward. This allowed for further dissection of omentum and other adherent peritoneal tissues to be dissected off of the gallbladder. The gallbladder was further dissected such that the cystic artery and cystic duct were identified. The cystic artery was doubly clipped proximally, singly clipped on the gallbladder side and divided. As the gallbladder was extremely dilated and inflamed, attempt was made to puncture aspirate the gallbladder to allow for easier manipulation. No fluid could be aspirated. A dome down approach was then undertaken to remove the gallbladder off of the liver bed. Plans were made to completely take the gallbladder down in this fashion; however a small lateral arterial branch coming directly from the liver bed was encountered. This was controlled with a single clip and this was then able to be divided and the gallbladder dissected off of the remaining liver bed. The cystic duct was then doubly clipped distally, singly clipped on the gallbladder side and divided. Cholangiogram was not obtained due to the severe extreme inflammatory process and the fact that the cystic duct appeared relatively short and the undersigned did not want to jeopardize the cystic duct stump with a cholangiogram given that the patient's liver function tests were essentially normal except for the alkaline phosphatase. The liver bed was reinspected and seen to be clean and dry. Copious irrigation was utilized. The gallbladder was placed into an Endo Catch device and removed via the supraumbilical port site. The incision needed to be lengthened in order to remove this extremely large, inflamed gallbladder. There was spillage of contents into the subcutaneous tissues while removing the gallbladder. This was quickly mopped up, and the specimen was passed off the table. There was a fair amount of subcutaneous contamination as a result of this. This was rinsed copiously as was the intra-abdominal cavity. All debris was aspirated. Due to the patient's extreme inflammatory process, a ROCKY drain was brought out via the lateralmost trocar site and the drain placed in the liver bed. This was secured to the skin with a 3-0 nylon suture. At this point, with hemostasis assured, insufflation was discontinued and the remaining trocar removed. The laparoscope and supraumbilical port were removed. The fascia and subcutaneous tissue was irrigated copiously once again. The fascia was closed with interrupted 0 Vicryl suture. The wound was closed partially with 4-0 Vicryl on the edges but was left primarily open due to the large amount of contamination. The wound was packed with 1 inch iodoform gauze. The remaining 5 mm trocar sites were closed with interrupted buried 4-0 Vicryl suture. These were dressed with Steri-Strips and a 4 x 4 applied around the drain. The patient was extubated and taken back to the recovery room in stable condition. Sponge and needle counts were reported to be correct. The patient tolerated the procedure well and was hemodynamically stable throughout.
[2018-04-24] MEDS ORDERED: fentaNYL Citrate Inj 100 MCG/2 ML Ampul ONE (13:14)
[2018-04-24] MEDS ORDERED: *Promethazine Inj 25 MG/ML Vial PERIprocedural use ONLY ONE (13:20)
[2018-04-24] MEDS ORDERED: *morphine SULFATE 4 MG/ML PERIprocedure ONLY ONE ×2 (13:46→13:59)
[2018-04-24] MEDS ORDERED: Amiodarone 200 MG Tablet PO SCH (13:53)
--- NOTE | 2018-04-24 13:53 | P.PNCV ---
- Note Subjective/Hospital Course: 67-year-old male who presented to [facility] 03/19/18 due to nausea, vomiting and abdominal pain. He states that he was awakened at 6 a.m. with left -sided flank pain and left mid back pain radiating to the left lower quadrant. He developed nausea and vomiting secondary to the pain. he was incidentally found to have cholecystitis, perc burt tube was placed , Trop was + underwent cardiac cath by Dr Pérez : mid LAD 80%, Left Circ 70 % lesion, RCA 100% occluded in the mid portion with [id number] and right-to- right collaterals supplying the distal portion. Blood cultures grew klebsiella pneumoniae and E coli , followed by ID and recommended to at least complete one week course of IV antibiotics prior to surgery PAST MEDICAL HISTORY: Diabetes, GERD, Hyperlipidemia, morbid obesity with BMI 40, History of gastric bypass. 03/27 pt is pain free at this time , has perc burt drain US of lower ext neg for DVT, Carotid US no stenosis continues on IV antibiotics per ID : VIVIENNE cefepime IV Ceftriaxone IV once a day (stop date: 04/03/2018) after which we will repeat BCX on 04/04/18. If these repeat bcx are negative at 48 hrs and patient clinically doing well will clear him from CABG. VIVIENNE Flagyl consult PT 03/28 pain free will follow / schedule for surgery next week when cleared by ID 03/29 still has some mild right flank pain burt drain in place no chest pain 04/03 c/o of nausea and vomiting since last night , also some abdominal pain for repeat CT abdomen today also repeat Blood cultures pending 04/05 still complaining of nausea and vomiting burt drain in place 04/10 events noted over weekend blood culture neg 04/03 , off all antibiotics still has burt drain , nursing flushing periodically per Uro / will perform bedside cystoscopy at bedside this week / urine has cleared since Heparin vivienne General surgery / will see after 3-4 weeks after CABG to al for cholecystectomy will discuss timing for surgery with Dr Carlin no further complaints of nausea / vomiting 04/11 resting comfortably await bedside cystoscopy/ and clearance from urology then plan for timing of CABG, needs to be placed back on ASA 04/12 cleared by Urology for surgery " s/p bedside [place] cystoscopy did not show any abnormalities within the bladder there were no bladder tumors identified. Retroflex examination of the bladder neck showed an area of friability at the prostate which was most likely the area that was bleeding at the time. per Urology: recommend placement of 3 way scales prior to surgery pt ambulating with walker, no nausea scheduled for surgery on tuesday will need 3 way cath placed by urology on 04/[address] catheter placed by Urology stable for surgery in am 04/14 SURGICAL PROCEDURE 1. Urgent Off-pump Coronary Artery Bypass Grafting x 3 with Left Internal Mammary Artery (THOMAS) to Left Anterior Descending (LAD), reverse saphenous vein graft to obtuse Marginal branch of the left Circumflex artery, reverse saphenous vein graft to the posterior Descending branch of the right Coronary artery 2. Left leg Endoscopic Vein [place] 3. Ultrasound-guided dissection of the LAD 4. Intraoperative Vein Mapping. 04/15 Doing well clinically Weaning [place]-Synephrine drip as tolerated Awaiting LFT results Maintain in ICU Continue chest tube to drainage 04/16 Clinically and hematocrit stable New onset atrial fibrillation last night. Presently in normal sinus rhythm on amiodarone drip Increase beta-janeth to 25 twice daily Okay to transfer to [facility] later today 04/17 converted to NSR transition to po amiodarone leave chest tubes in today / clots / bloody drainage OOB ambulate, gentle diuresis 04/18 converted to NSR, continue amiodarone po f/u labs in am if goes back into afib, will need NOAC chest tube dc without difficulty f/u CXR in am PT/OT eval for transfer to [facility] next 24-48hrs 04/19 discharge summary completed had issues with low blood sugars levemir dc insulin sliding scale dosing decreased 04/20 BGM's improved discussed with Dr Pérez will start eliquis, dc plavix stable to transfer to rehab today 04/21 pt having reoccurring nausea and vomiting with some abdominal discomfort does not feel as well today Dr Hall notified , ok to hold eliquis 48hrs prior to any procedure ok for Lap burt per Dr Carlin 04/22/18 No c/o presently. preop for Tuesday for CCx 04/23/18 No complaints today. Preop for CCX 04/24 for Lap burt today resume eliquis when ok with General surgery eval for [facility]/ SN[facility] when cleared by general surgery Objective: Vital Signs - 24 hr 04/23/18 15:00 04/23/18 16:00 04/23/18 17:00 Temperature 97.6 F Pulse Rate 63 62 64 Respiratory Rate 16 Blood Pressure 92/57 L Pulse Oximetry 96 04/23/18 19:00 04/23/18 20:00 04/23/18 21:00 Temperature 98.1 F Pulse Rate 77 60 61 Respiratory Rate 16 Blood Pressure 107/55 L Pulse Oximetry 95 95 04/23/18 22:00 04/23/18 23:00 04/24/18 00:00 Temperature 98.1 F Pulse Rate 69 61 68 Respiratory Rate 16 Blood Pressure 101/56 L Pulse Oximetry 94 L 04/24/18 01:00 04/24/18 02:00 04/24/18 03:00 Temperature 98.2 F Pulse Rate 67 69 71 Respiratory Rate 16 Blood Pressure 93/57 L Pulse Oximetry 95 04/24/18 04:00 04/24/18 05:00 04/24/18 05:51 Temperature Pulse Rate 69 62 60 Respiratory Rate Blood Pressure Pulse Oximetry 04/24/18 07:00 Temperature 97.9 F Pulse Rate 68 Respiratory Rate 20 Blood Pressure 104/68 Pulse Oximetry 98 GENERAL: A&O x 3 SKIN: Warm and dry. sternal incision intact and well approximated HEAD: Normocephalic. EYES: No scleral icterus. No injection or drainage. NECK: Supple, trachea midline. No JVD or lymphadenopathy. CARDIOVASCULAR: Regular rate and rhythm without murmurs, gallops, or rubs. RESPIRATORY: Breath sounds equal bilaterally. No accessory muscle use. GASTROINTESTINAL: Abdomen soft, + tenderness MUSCULOSKELETAL: No cyanosis, or edema. BACK: Nontender without obvious deformity. No CVA tenderness. Labs: Laboratory Results - last 12 hr 04/24/18 04/24/18 03:13 07:56 POC Glucose 132 H 141 H Result Diagrams: 04/23/18 04:34 04/23/18 04:34 - Plan (1) Coronary artery disease involving [place] coronary artery Plan: ASA, statin, BB , amiodarone for lap burt today pulm toileting nebs, ezpap , acapella OOB/ PT (3) Afib Plan: in NSR > afib transition to po amiodarone (4) Cholecystitis Plan: general surgery : for Lap burt today
[2018-04-24 14:14] LABS: Hematocrit 27.7 % (39.0-51.0); Hemoglobin 9.2 gm/dL (13.0-17.0)
[2018-04-24] MEDS: Morphine Inj 4 MG/ML Vial IV.PUSH PRN ×2 (16:07→20:47)
--- NOTE | 2018-04-24 16:43 | P.PNIM ---
Subjective Interval history: Attempted to see patient. Patient was in surgery for Cholecystectomy. Will see patient likely tomorrow. Physical Exam Vital signs: Last Vital Signs Temp 98.1 F 04/24/18 15:00 Pulse 72 04/24/18 16:00 Resp 16 04/24/18 15:00 BP 106/58 L 04/24/18 15:00 Pulse Ox 100 04/24/18 15:00 Intake & Output 04/22/18 04/23/18 04/24/18 04/25/18 06:59 06:59 06:59 06:59 Intake Total 1350 / 1350 5630 / 5630 870 / 870 1200 / 1200 Output Total 1350 / 1350 3250 / 3250 975 / 975 500 / 500 Balance 0 / 0 2380 / 2380 -105 / -105 700 / 700 Weight 105.3 kg 102 kg 98.3 kg Urinary Catheter Management 3-way Urethral: Cath placed during this visit: yes, but has since been removed by the nurse Insertion date: 04/13/18 Insertion time: 00:00 Removal date: 04/19/18 Removal time: 10:30 Results Labs CBC & Chem 7: 04/24/18 13:22 04/23/18 04:34 Procedures Procedures: CABG X3 ON 04-14 THOMAS-->LAD, SVG-->OM, SVG-->PDA PREPROCEDURE DIAGNOSES 1. Severe Multi Vessel Coronary Artery Disease. 2. Acute Myocardial Infarction (NSTEMI) 3. Acute Cholecystitis s/p percutaneous cholecystostomy tube placement 4. Sepsis and Bacteremia 5. Severe Pulmonary Insufficiency 6. Intramyocardial Coronary Vessels POSTPROCEDURE DIAGNOSES Same SURGICAL PROCEDURE 1. Urgent Off-pump Coronary Artery Bypass Grafting x 3 with Left Internal Mammary Artery (THOMAS) to Left Anterior Descending (LAD), reverse saphenous vein graft to obtuse Marginal branch of the left Circumflex artery, reverse saphenous vein graft to the posterior Descending branch of the right Coronary artery 2. Left leg Endoscopic Vein [place] 3. Ultrasound-guided dissection of the LAD 4. Intraoperative Vein Mapping. Assessment and Plan (1) Intractable abdominal pain: Code(s): R10.9 - Unspecified abdominal pain Status: Acute Plan Mr. Bridges is a pleasant 67-year-old male with history of prior gastric bypass who has acute clinical course has been complicated by acute cholecystitis and Klebsiella, E. coli bacteremia requiring a week of IV antibiotics, now complicated by acute non-ST elevation myocardial infarction and underwent urgent off-pump CABG x 3 (THOMAS-->LAD, SVG-->OM, SVG-->PDA) on 04/14. NSTEMI Coronary artery disease -s/p Off-pump CABG (THOMAS-->LAD, SVG-->OM, SVG-->PDA) 04/14/2018 -EF 60-65%, trace to mild MR on KELLY this admission Continue aspirin 81 mg, atorvastatin 20 mg, Plavix 75 mg Continue metoprolol 25 mg twice daily. Continue amiodarone 400 mg p.o. every 12 hours. Atrial fibrillation -currently in normal sinus rhythm. New onset. Patient is currently on beta-janeth as well as amiodarone. Patient is on Apixaban - currently on hold due to anticipated cholecystectomy on 04/24/2018. Diabetes mellitus Continue sliding scale insulin. Goal blood glucose 140-180. Acute cholecystitis E. coli and Klebsiella bacteremia -resolved Patient went for Cholecystectomy today, 04/24/2018. Hematuria Appreciate urology input. Negative cystoscopy. Pavon management per urology recommendations. Full code. Restart apixaban when okay with general surgery. Progress Note: Quality VTE Deep Vein Thrombosis/Pulmonary Embolism Present on Admission: No
[2018-04-24] MEDS ORDERED: HYDROmorphone PF Inj 1 MG/ML Ampul IV.PUSH ONE (21:00)
[2018-04-24] MEDS ORDERED: Sodium Chlor 0.9% Inj 500 ML IV.CONT ONE (21:00)
[2018-04-25] MEDS: Insulin NovoLOG Aspart Correctional Sugar Inj SQ SCH ×5 (05:07→22:49)
[2018-04-25] MEDS: Piperacil/Tazo 3.375 GM Premix 50 ML IV.SIG SCH ×3 (08:57→22:28)
[2018-04-25] MEDS ORDERED: Morphine Inj 4 MG/ML Vial IV.PUSH PRN (09:02)
[2018-04-25 11:18] LABS: Hematocrit 27.2 % (39.0-51.0); Hemoglobin 8.8 gm/dL (13.0-17.0); Mean Corpuscular HGB Conc 32.2 % (32.0-36.0); Mean Corpuscular Volume 90.1 fL (80.0-100.0); Mean Platelet Volume 7.8 fL (7.0-11.0); Platelet Count 465 th/mm3 (150-450); Red Blood Count 3.02 mil/mm3 (4.50-5.90); Red Cell Distribution Width 17.1 % (11.6-17.2); White Blood Count 18.2 th/mm3 (4.0-11.0)
[2018-04-25 11:42] LABS: Calcium 7.9 mg/dL (8.5-10.1); Carbon Dioxide 25.8 meq/L (21.0-32.0); Magnesium 2.2 mg/dL (1.5-2.5); Potassium 4.5 meq/L (3.5-5.1)
[2018-04-25] MEDS: Metoprolol Tartrate 25 MG Tablet PO SCH ×2 (11:52→20:48)
[2018-04-25] MEDS: Amiodarone 200 MG Tablet PO SCH (11:52)
[2018-04-25] MEDS ORDERED: Sod Chloride 0.9% Inj 1,000 ML IV.SIG SCH ×2 (12:32→20:00)
--- NOTE | 2018-04-25 12:36 | P.PNGS ---
Subjective Interval history: Resting in bed Was able to eat a small amount of breakfast Still feels weak RN at bedside--- SBP currently; 88 UOP adequate Physical Exam Vital signs: Vital Signs 04/24/18 13:04 04/24/18 13:05 04/24/18 13:15 Temperature 97.4 F L Pulse Rate 68 Respiratory Rate 22 21 Blood Pressure 109/64 117/59 L Pulse Oximetry 95 95 04/24/18 13:30 04/24/18 13:45 04/24/18 13:48 Temperature Pulse Rate 70 70 Respiratory Rate 24 22 22 Blood Pressure 108/57 L 110/53 L Pulse Oximetry 97 97 04/24/18 14:00 04/24/18 14:15 04/24/18 14:30 Temperature 97.6 F Pulse Rate 71 71 73 Respiratory Rate 22 21 14 Blood Pressure 113/56 L 102/58 L 101/53 L Pulse Oximetry 98 99 99 04/24/18 15:00 04/24/18 16:00 04/24/18 16:53 Temperature 98.1 F Pulse Rate 72 72 Respiratory Rate 16 Blood Pressure 106/58 L Pulse Oximetry 100 93 L 04/24/18 17:00 04/24/18 18:00 04/24/18 19:00 Temperature 98.1 F Pulse Rate 99 H 101 H 90 Respiratory Rate 16 Blood Pressure 113/59 L Pulse Oximetry 98 04/24/18 20:00 04/24/18 20:35 04/24/18 21:00 Temperature Pulse Rate 106 H 98 H Respiratory Rate 16 Blood Pressure Pulse Oximetry 94 L 04/24/18 22:00 04/24/18 23:00 04/25/18 00:00 Temperature 98.2 F Pulse Rate 84 81 78 Respiratory Rate 16 Blood Pressure 107/58 L Pulse Oximetry 97 04/25/18 01:00 04/25/18 02:00 04/25/18 03:00 Temperature 97 F L Pulse Rate 82 82 75 Respiratory Rate 16 18 Blood Pressure 100/54 L Pulse Oximetry 95 04/25/18 04:00 04/25/18 05:00 04/25/18 07:00 Temperature Pulse Rate 78 75 86 Respiratory Rate Blood Pressure Pulse Oximetry 04/25/18 08:50 04/25/18 10:43 04/25/18 10:58 Temperature 98.8 F Pulse Rate 86 Respiratory Rate 17 Blood Pressure 93/50 L Pulse Oximetry 97 97 97 04/25/18 11:50 Temperature 98.7 F Pulse Rate 80 Respiratory Rate 17 Blood Pressure 88/51 L Pulse Oximetry 97 Intake & Output 04/24/18 04/25/18 04/25/18 18:59 06:59 18:59 Intake Total 1300 / 1300 790 / 790 100 / 100 Output Total 500 / 500 810 / 810 Balance 800 / 800 -20 / -20 100 / 100 Weight 101.5 kg Intake: IV 100 / 100 550 / 550 100 / 100 NS Inj 500 ML @ Wide Open IV. 500 / 500 CONT .Q0M ONE Rx#:[id number] Zosyn 3.375 GM Premix 50 ML @ 50 / 50 100 / 100 100 mls/hr IV.SIG Q8H THOMAS Rx#: [id number] Flagyl 500 MG Inj 100 ML @ 0 100 / 100 mls/hr IV.SIG .STK-MED ONE Rx#: [id number] Oral 100 / 100 240 / 240 Anesthesia Amount 1100 / 1100 Output: Urine 0 / 0 750 / 750 Estimated Blood Loss 500 / 500 Wound Drainage 60 / 60 # 1 Right ROCKY Drain 60 / 60 Other: Date of Last Bowel Movement 04/23/18 04/23/18 Narrative: Alert and awake Abd: soft; ROCKY with thin bloody drainage; umbilical dressing changed---packing in place Sternal incision with Steri Strips in place - Urinary Catheter Management 3-way Urethral Cath placed during this visit: yes, but has since been removed by the nurse Reason for continuing: Decision to DC catheter Insertion date: 04/13/18 Insertion time: 00:00 Removal date: 04/19/18 Removal time: 10:30 Results - Labs 04/26/18 04:14 04/26/18 04:14 Laboratory Results - last 24 hr 04/21/18 04/24/18 04/24/18 03:30 13:22 13:56 WBC RBC Hgb 9.2 L Hct 27.7 L MCV MCH MCHC RDW Plt Count MPV Sodium Potassium Chloride Carbon Dioxide Anion Gap BUN Creatinine Estimated GFR POC Glucose 257 H Random Glucose Calcium Magnesium Ur Opiates Confirm Positive A 04/24/18 04/24/18 04/25/18 15:01 21:31 04:58 WBC RBC Hgb Hct MCV MCH MCHC RDW Plt Count MPV Sodium Potassium Chloride Carbon Dioxide Anion Gap BUN Creatinine Estimated GFR POC Glucose 236 H 304 H 242 H Random Glucose Calcium Magnesium Ur Opiates Confirm 04/25/18 04/25/18 04/25/18 09:03 10:31 10:31 WBC 18.2 H RBC 3.02 L Hgb 8.8 L Hct 27.2 L MCV 90.1 MCH 29.0 MCHC 32.2 RDW 17.1 Plt Count 465 H MPV 7.8 Sodium 137 Potassium 4.5 Chloride 103 Carbon Dioxide 25.8 Anion Gap 8 BUN 13 Creatinine 0.97 Estimated GFR 77 L POC Glucose 169 H Random Glucose 160 H Calcium 7.9 L Magnesium 2.2 Ur Opiates Confirm 04/25/18 12:08 WBC RBC Hgb Hct MCV MCH MCHC RDW Plt Count MPV Sodium Potassium Chloride Carbon Dioxide Anion Gap BUN Creatinine Estimated GFR POC Glucose 198 H Random Glucose Calcium Magnesium Ur Opiates Confirm - Imaging Imaging: ITS Impressions Abdomen/Pelvis CT 03/19/18 10:38 CONCLUSION: 1. Short segmental concentric wall thickening is identified in the distal descending colon. Colon malignancy needs to be excluded. 2. Calcified gallstones with moderate distention of the gallbladder. 3. No other significant abnormality. Chest CTA 03/19/18 13:37 CONCLUSION: 1. No evidence of acute pulmonary embolism. 2. Mild subpleural airspace disease and reticulations which may be chronic. 3. No evidence of segmental or lobar lung consolidation. Abdomen/Pelvis CTA 03/22/18 00:00 CONCLUSION: 1. Prominent gallbladder distention and surrounding inflammatory changes consistent with cholecystitis 2. No acute vascular findings in the abdomen or pelvis. Carotid Doppler Study 03/25/18 12:49 CONCLUSION: 1. Right Internal Carotid Artery: No significant plaque or narrowing. 2. Left Internal Carotid Artery: No significant plaque or narrowing. Lower Extremity Ultrasound 03/25/18 12:49 CONCLUSION: Bilateral greater saphenous vein measurements as above. No acute abnormalities are demonstrated. Venous Doppler Study 03/25/18 12:49 CONCLUSION: Negative study. No venous thrombosis of either lower extremity. Percutaneous Cholangiogram 03/31/18 00:00 CONCLUSION: Uncomplicated percutaneous cholecystostomy as above. Cholangiopancreatography MRI 04/03/18 17:20 CONCLUSION: 1. Numerous filling defects within the central intrahepatic biliary ducts, common hepatic ducts, and common bile ducts. These represent stones and/or thrombus/hemorrhage. The linear defects are more likely related to hemorrhage. 2. Dilatation of the gallbladder with thickened gallbladder wall and a cholecystostomy tube in place. There is heterogeneous material within the gallbladder. Abdomen/Bladder Ultrasound 04/07/18 00:00 CONCLUSION: 1. No findings to account for the patient's hematuria. 2. Nonvisualization of the left kidney. 3. No evidence of hydronephrosis or nephrolithiasis in the right kidney. Chest X-Ray 04/19/18 06:00 CONCLUSION: No pneumothorax following chest tube removal. Persistent bibasilar consolidation. Abdomen X-Ray 04/21/18 00:00 CONCLUSION: Nonobstructive bowel gas pattern. Moderate to large stool throughout the colon. Assessment and Plan - Assessment (1) Intractable abdominal pain Code(s): R10.9 - Unspecified abdominal pain Status: Acute (2) NSTEMI (non-ST elevated myocardial infarction) Code(s): I21.4 - Non-ST elevation (NSTEMI) myocardial infarction Status: Acute (3) Afib Code(s): I48.91 - Unspecified atrial fibrillation Status: Acute (4) Cholecystitis Code(s): K81.9 - Cholecystitis, unspecified Status: Acute Plan: 67 year old male with afib RVR; s/p cardiac cath; cholecystics -S/p CABG -POD1 lap burt with drain placement -Hypotensive this morning; 500 cc NS bolus given -WBC elevated (expected) and Hmg/hct stable---will recheck tomorrow -Okay for regular diet Had two episodes hypotension this afternoon; given boluses; concern for sepsis; bleeding less likely, as drain output minimal. Will transfer to CVICU this evening Critical care consult The exam, history, and the medical decision-making described in the above note were completed with the assistance of the mid-level provider. I reviewed and agree with the findings presented. I attest that I had a [id number] encounter with the patient on the same day, and personally performed and documented my assessment and findings in the medical record.
[2018-04-25] MEDS: Multivitamin/Minerals Therapeutic Tablet PO SCH (12:45)
[2018-04-25] MEDS: Magnesium Oxide 400 MG Tablet PO SCH ×2 (12:45→22:28)
[2018-04-25] MEDS ORDERED: Sodium Chlor 0.9% Inj 500 ML IV.SIG SCH (13:00)
--- NOTE | 2018-04-25 15:52 | P.PNIM ---
Subjective Interval history: Follow up for non-STEMI, atrial fibrillation, cholecystitis. Patient underwent cholecystectomy on 04/24/2018. Patient is currently doing well. He denies any chest pain, shortness of breath, fever or chills. He is somewhat hypotensive today. He actually reports improved abdominal pain. Physical Exam Vital signs: Last Vital Signs Temp 98.4 F 04/25/18 14:02 Pulse 80 04/25/18 14:02 Resp 17 04/25/18 14:02 BP 95/53 L 04/25/18 14:02 Pulse Ox 97 04/25/18 14:02 Intake & Output 04/23/18 04/24/18 04/25/18 04/26/18 06:59 06:59 06:59 06:59 Intake Total 5630 / 5630 870 / 870 2090 / 2090 100 / 100 Output Total 3250 / 3250 975 / 975 1310 / 1310 Balance 2380 / 2380 -105 / -105 780 / 780 100 / 100 Weight 102 kg 98.3 kg 101.5 kg GENERAL: Alert, NAD. SKIN: Warm and dry. HEAD: Normocephalic. EYES: No scleral icterus. No injection or drainage. NECK: Supple, trachea midline. No JVD or lymphadenopathy. CARDIOVASCULAR: Regular rate and rhythm without murmurs, gallops, or rubs. RESPIRATORY: Breath sounds equal bilaterally. No accessory muscle use. GASTROINTESTINAL: Abdomen soft, mild tenderness to palpation, nondistended. MUSCULOSKELETAL: No cyanosis, or edema. BACK: Nontender without obvious deformity. No CVA tenderness. Urinary Catheter Management 3-way Urethral: Cath placed during this visit: yes, but has since been removed by the nurse Insertion date: 04/13/18 Insertion time: 00:00 Removal date: 04/19/18 Removal time: 10:30 Results Labs CBC & Chem 7: 04/25/18 10:31 04/25/18 10:31 Procedures Procedures: CABG X3 ON 04-14 THOMAS-->LAD, SVG-->OM, SVG-->PDA PREPROCEDURE DIAGNOSES 1. Severe Multi Vessel Coronary Artery Disease. 2. Acute Myocardial Infarction (NSTEMI) 3. Acute Cholecystitis s/p percutaneous cholecystostomy tube placement 4. Sepsis and Bacteremia 5. Severe Pulmonary Insufficiency 6. Intramyocardial Coronary Vessels POSTPROCEDURE DIAGNOSES Same SURGICAL PROCEDURE 1. Urgent Off-pump Coronary Artery Bypass Grafting x 3 with Left Internal Mammary Artery (THOMAS) to Left Anterior Descending (LAD), reverse saphenous vein graft to obtuse Marginal branch of the left Circumflex artery, reverse saphenous vein graft to the posterior Descending branch of the right Coronary artery 2. Left leg Endoscopic Vein [place] 3. Ultrasound-guided dissection of the LAD 4. Intraoperative Vein Mapping. Cholecystectomy 04/24/2018 Assessment and Plan (1) Intractable abdominal pain: Code(s): R10.9 - Unspecified abdominal pain Status: Acute Plan Mr. Bridges is a pleasant 67-year-old male with history of prior gastric bypass who has acute clinical course has been complicated by acute cholecystitis and Klebsiella, E. coli bacteremia requiring a week of IV antibiotics, now complicated by acute non-ST elevation myocardial infarction and underwent urgent off-pump CABG x 3 (THOMAS-->LAD, SVG-->OM, SVG-->PDA) on 04/14. NSTEMI Coronary artery disease -s/p Off-pump CABG (THOMAS-->LAD, SVG-->OM, SVG-->PDA) 04/14/2018 -EF 60-65%, trace to mild MR on KELLY this admission Continue aspirin 81 mg, atorvastatin 20 mg, Plavix 75 mg Continue metoprolol 25 mg twice daily. Continue amiodarone 400 mg p.o. every 12 hours. Atrial fibrillation -currently in normal sinus rhythm. New onset. Patient is currently on beta-janeth as well as amiodarone. Patient is on Apixaban - currently on hold due to anticipated cholecystectomy on 04/24/2018. Diabetes mellitus Continue sliding scale insulin. Goal blood glucose 140-180. Acute cholecystitis -E. coli and Klebsiella bacteremia -resolved Patient underwent cholecystectomy on 04/24/2018. Hypotension We will provide 1 L bolus. Recheck blood pressure. Continue Zosyn 3.375g Q6hrs. -WBC elevation is likely reactive. Hematuria Appreciate urology input. Negative cystoscopy. [place] management per urology recommendations. Full code. Restart apixaban when okay with general surgery. Progress Note: Quality VTE Deep Vein Thrombosis/Pulmonary Embolism Present on Admission: No
[2018-04-25] MEDS: Senna/Docusate Sodium 8.6/50 MG Tablet PO SCH ×2 (16:10→22:28)
[2018-04-25] MEDS: Polyethylene Glycol 3350 17 GM Packet PO SCH (16:10)
[2018-04-25] MEDS: Docusate Sodium 100 MG Capsule PO SCH ×2 (16:10→22:28)
[2018-04-25 19:34] LABS: Hematocrit 26.5 % (39.0-51.0); Hemoglobin 8.7 gm/dL (13.0-17.0)
--- NOTE | 2018-04-25 21:02 | P.CONCC ---
History of Present Illness Primary Care Provider: Eusebio Chacko MD Chief Complaint: Abdominal Pain History of Present Illness: This is a 67-year-old male with a history of diabetes, GERD, and prior gastric bypass. He was originally admitted on 03/19 for nausea and flank pain and was found to have acute cholecystitis requiring percutaneous cholecystostomy tube. During this hospital admission, his course was complicated by non-ST elevation myocardial infarction for which he underwent left heart catheterization which demonstrated 80% mid LAD lesion, 70% left circumflex lesion, 100% RCA occlusion with left to right collaterals. He underwent 1 week of IV antibiotics for Klebsiella and E. coli bacteremia secondary to acute cholecystitis. After completion of IV antibiotics he underwent urgent off-pump CABG x 3 (THOMAS-->LAD, SVG-->OM, SVG-->PDA) with Dr. Carlin. He arrives to the CVICU in stable condition, intubated, arousing from anesthesia. He is on a low-dose phenylephrine to maintain endorgan perfusion. In the first hour he is in the ICU, his chest tubes have minimal output, his urine output is adequate. No additional information is available from patient due to his clinical condition. Review of systems is unobtainable. Subjective: 04/15: extubated. doing well. borderline oliguria, and remains on low-dose phenylephrine. lactate cleared. scvo2 adequate. 04/16: looks improved from yesterday. needs increased rate control drugs. off vasopressors. adequate uop. 04/25: Patient underwent cholecystectomy on 04/24/2018. Today during the day he became borderline hypotensive, however responding to IV fluid boluses. He has been transferred to ICU and critical care have been reconsulted. Review of Systems All other systems reviewed negative except as stated in HPI PMFSH - History History Provided By: Medical Record - Medical History Medical History: Medical History (Last Reviewed 04/25/18 @ 15:02 by Raffaele Myers) Diabetes GERD (gastroesophageal reflux disease) Hypercholesteremia MDRO (multiple drug resistant organisms) resistance Onset Date: ~03/26/18 - Surgical History Surgical History: Surgical History (Last Reviewed 04/25/18 @ 15:02 by Raffaele Myers) H/O gastric bypass - Family History Family History: Family History (Last Reviewed 04/25/18 @ 12:53 by Kirsten Justice) Other Family history non-contributory - Tobacco History Second Hand Smoke Exposure: Yes Tobacco Use In Past 30 Days: No Smoking Status: Former smoker - Alcohol History How Often Do You Have a Drink Containing Alcohol: Never - Substance Use History Substance History: No History of Abuse - Travel History Recent Travel in the [place] Within the Last 8 Weeks: No Recent Travel Out of the Country Within the Last 8 Weeks: No - Immunization History Tetanus Immunization: Unsure Hx Influenza Vaccine This Season: No Medications and Allergies Active Medications: Active Medications Acetaminophen (Tylenol) 650 mg PO Q4H PRN PRN Reason: Temp > 100.4 Last Admin: 03/27/18 09:04 Dose: 650 mg Hydrocodone Bitart/Acetaminophen ([place] 5/325) 1 tab PO Q3H PRN PRN Reason: PAIN SCALE 1 TO 5 Last Admin: 04/25/18 09:04 Dose: 1 tab Al Hydroxide/Mg Hydroxide (Milk Of Magnsofia Liq) 30 ml PO Q12H PRN PRN Reason: Mild Constipation Last Admin: 04/17/18 14:37 Dose: 30 ml Albuterol (Duoneb Neb (Prn)) 1 ampul NEB Q2HR NEB PRN PRN Reason: WHEEZING Last Admin: 04/17/18 00:13 Dose: 1 ampul Amiodarone HCl (Cordarone) 200 mg PO DAILY [facility] Last Admin: 04/25/18 11:52 Dose: Not Given Apixaban (Eliquis) 5 mg PO BID [facility] Last Admin: 04/21/18 20:03 Dose: 5 mg Aspirin (Aspirin Chew) 81 mg PO DAILY [facility] Last Admin: 04/25/18 09:03 Dose: 81 mg Atorvastatin Calcium (Lipitor) 20 mg PO DAILY [facility] Last Admin: 04/25/18 12:46 Dose: 20 mg Bisacodyl (Dulcolax Supp) 10 mg RECTAL DAILY PRN PRN Reason: SEVERE CONSITIPATION Last Admin: 04/23/18 03:26 Dose: 10 mg Bisacodyl (Dulcolax Ec) 10 mg PO ONCE ONE Last Admin: 03/30/18 17:35 Dose: 10 mg Dextrose (D50w Vial) 50 ml IV.PUSH UNSCH PRN PRN Reason: PER HYPOGLYCEMIA PROTOCOL Last Admin: 04/19/18 16:09 Dose: 50 ml Diltiazem HCl (Cardizem) 30 mg PO QID [facility] Last Admin: 04/15/18 13:21 Dose: Not Given Docusate Sodium (Colace) 100 mg PO BID [facility] Last Admin: 04/25/18 16:10 Dose: Not Given Glucagon (Glucagon Inj) 1 mg OTHER PRN PRN PRN Reason: for Hypoglycemia Protocol Sodium Chloride (Ns Inj) 1,000 mls @ 84 mls/hr IV.CONT .[id number] [facility] Last Admin: 04/14/18 19:41 Dose: Not Given Sodium Chloride (Ns Inj) 500 mls @ 30 mls/hr IV.SIG .Q10H [facility] Last Admin: 04/14/18 05:34 Dose: Not Given Piperacillin/Tazobactam/Dextrose (Zosyn 3.375 Gm Premix) 50 mls @ 100 mls/hr IV.SIG Q6H [facility] Last Infusion: 04/25/18 19:00 Dose: Infused Insulin Aspart (Novolog Insulin Correctional Sugar Inj) 0 unit SQ ACHS AND 3AM THOMAS; Protocol Last Admin: 04/25/18 17:53 Dose: 7 unit Lactulose (Lactulose Liq) 30 ml PO DAILY PRN PRN Reason: SEVERE CONSITIPATION Last Admin: 04/23/18 08:22 Dose: 30 ml Magnesium Oxide (Mag-Ox) 400 mg PO BID [facility] Last Admin: 04/25/18 12:45 Dose: 400 mg Metformin HCl (Glucophage) 1,000 mg PO BID [facility] Last Admin: 04/16/18 10:08 Dose: Not Given Metoprolol Tartrate (Lopressor) 25 mg PO BID [facility] Last Admin: 04/25/18 20:48 Dose: Not Given Miscellaneous (Pill Splitter) 1 each OTHER UNSCH PRN PRN Reason: PILL SPIT Morphine Sulfate (Morphine Inj) 2 mg IV.PUSH Q3H PRN PRN Reason: BREAKTHROUGH PAIN Multivitamins/Minerals (Theragran-M) 1 tab PO DAILY [facility] Last Admin: 04/25/18 12:45 Dose: 1 tab Ondansetron HCl (Zofran Inj) 4 mg IV.PUSH Q6H PRN PRN Reason: NAUSEA OR VOMITING Last Admin: 04/25/18 05:13 Dose: 4 mg Pantoprazole Sodium (Protonix) 40 mg PO DAILY [facility] Last Admin: 04/25/18 09:04 Dose: 40 mg Polyethylene Glycol (Miralax) 17 gm PO DAILY [facility] Last Admin: 04/25/18 16:10 Dose: Not Given Prochlorperazine Edisylate (Compazine Inj) 10 mg IV.PUSH Q6H PRN PRN Reason: NAUSEA Last Admin: 04/24/18 16:07 Dose: 10 mg Senna/Docusate Sodium ([place]-Colace) 1 tab PO BID [facility] Last Admin: 04/25/18 16:10 Dose: Not Given Sennosides (Senokot) 17.2 mg PO Q12H PRN PRN Reason: Moderate Constipation Last Admin: 04/23/18 08:22 Dose: 17.2 mg Sodium Biphosphate/Sodium Phosphate (Fleets Enema (Adult)) 118 ml RECTAL UNSCH PRN PRN Reason: SEE LABEL COMMENTS Sodium Chloride (Ns Flush) 2 ml IV.FLUSH BID [facility] Last Admin: 04/25/18 09:04 Dose: 2 ml Sodium Chloride (Ns Flush) 2 ml IV.FLUSH PRN PRN PRN Reason: FLUSH AFTER USING IV ACCESS Allergies Allergy/AdvReac Type Severity Reaction Status Date / Time No Known Allergies Allergy Verified 03/19/18 10:28 Home Medications Medication Instructions Recorded Confirmed Type atorvastatin 20 mg PO DAILY 03/19/18 03/19/18 History liraglutide [Victoza 2-Sonido] 0.6 mg SUBCUT DAILY 03/19/18 03/19/18 History metformin 1,000 mg PO BID 03/19/18 03/19/18 History omeprazole-sodium bicarbonate 1 cap PO DAILY 03/19/18 03/19/18 History pantoprazole 20 mg PO DAILY 03/19/18 03/19/18 History Physical Exam Vital signs: Vital Signs 04/24/18 22:00 04/24/18 23:00 04/25/18 00:00 Temperature 98.2 F Pulse Rate 84 81 78 Respiratory Rate 16 Blood Pressure 107/58 L Pulse Oximetry 97 04/25/18 01:00 04/25/18 02:00 04/25/18 03:00 Temperature 97 F L Pulse Rate 82 82 75 Respiratory Rate 16 18 Blood Pressure 100/54 L Pulse Oximetry 95 04/25/18 04:00 04/25/18 05:00 04/25/18 07:00 Temperature Pulse Rate 78 75 86 Respiratory Rate Blood Pressure Pulse Oximetry 04/25/18 08:00 04/25/18 08:50 04/25/18 09:00 Temperature 98.8 F Pulse Rate 84 86 84 Respiratory Rate 17 Blood Pressure 93/50 L Pulse Oximetry 97 04/25/18 10:00 04/25/18 10:43 04/25/18 10:58 Temperature Pulse Rate 80 Respiratory Rate Blood Pressure Pulse Oximetry 97 97 04/25/18 11:00 04/25/18 11:50 04/25/18 12:00 Temperature 98.7 F Pulse Rate 80 80 84 Respiratory Rate 17 Blood Pressure 88/51 L Pulse Oximetry 97 04/25/18 12:48 04/25/18 13:00 04/25/18 14:00 Temperature Pulse Rate 88 88 88 Respiratory Rate 17 Blood Pressure 93/52 L Pulse Oximetry 97 04/25/18 14:02 04/25/18 15:00 04/25/18 16:00 Temperature 98.4 F Pulse Rate 80 86 86 Respiratory Rate 17 Blood Pressure 95/53 L Pulse Oximetry 97 04/25/18 16:05 04/25/18 17:00 04/25/18 17:55 Temperature 98.4 F 98.6 F Pulse Rate 87 84 88 Respiratory Rate 17 18 Blood Pressure 94/53 L 85/47 L Pulse Oximetry 97 98 04/25/18 18:00 04/25/18 20:41 Temperature Pulse Rate 88 Respiratory Rate Blood Pressure Pulse Oximetry 98 Intake & Output 04/25/18 04/25/18 04/26/18 06:59 18:59 06:59 Intake Total 790 / 790 1580 / 1580 50 / 50 Output Total 810 / 810 835 / 835 Balance -20 / -20 745 / 745 50 / 50 Weight 101.5 kg Intake: IV 550 / 550 1100 / 1100 50 / 50 NS Inj 500 ML @ Wide Open IV. 500 / 500 CONT .Q0M ONE Rx#:[id number] Zosyn 3.375 GM Premix 50 ML @ 50 / 50 100 / 100 50 / 50 100 mls/hr IV.SIG Q6H THOMAS Rx#: [id number] NS Inj 1,000 ML @ 1000 mls/hr 1000 / 1000 IV.SIG BOLUS THOMAS Rx#:[id number] Oral 240 / 240 480 / 480 Output: Urine 750 / 750 810 / 810 Wound Drainage 60 / 60 # 1 Right ROCKY Drain 60 / 60 Other: Date of Last Bowel Movement 04/23/18 - Constitutional no acute distress - Routine HEENT Exam Head: Present: normocephalic, atraumatic Eye: Present: PERRL ENT: Present: mucous membranes dry - Routine Neck Exam Present: supple, full ROM. Absent: JVD, carotid bruit - Routine Respiratory Exam Absent: accessory muscle use, rales, respiratory distress, rhonchi, stridor, wheezes - Routine Cardiovascular Exam Present: RRR, S1, S2 - Routine Abdominal Exam Present: soft. Absent: distended, rebound, guarding - Routine Extremities Exam Absent: cyanosis, clubbing, edema - Routine Skin Exam Present: intact. Absent: cyanosis, erythema - Routine Neurological Exam Present: alert, oriented X3, moving all extremities - Detailed Neurological Exam: Coma Scale Eye Opening: Spontaneous Verbal Response: Oriented Motor Response: Obey commands [place] Coma Scale Total: 15 - Urinary Catheter Management 3-way Urethral Cath placed during this visit: yes, but has since been removed by the nurse Reason for continuing: Decision to DC catheter Insertion date: 04/13/18 Insertion time: 00:00 Removal date: 04/19/18 Removal time: 10:30 Septic Shock Reassessment Septic shock perfusion: reassessment completed Assessment and Plan - Assessment and Plan Plan: Sepsis/ Acute cholecystitis -History of E. coli and Klebsiella bacteremia on this admission -Status post cholecystectomy by Dr. Hall 04/24 -repeat blood cultures -Broad-spectrum antibiotics -Infectious disease reconsultation CABG x 3 (THOMAS-->LAD, SVG-->OM, SVG-->PDA) 04/14 NSTEMI CAD - EF 60-65%, trace to mild MR on KELLY this admission - continue lipitor - ASA - lasix -Further per cardiology and CT surgery Afib - now in SR on telemetry -Well-controlled with beta blockade. Hematuria S/P cystoscopy- 04/11 Hematuria - resolved -voiding well- gross clear urine -Urology input appreciated DM II - SSI. DVT GI prophylaxis -Teds SCDs -Pharmacological DVT prophylaxis per surgery and urology -Pepcid Level 2
--- NOTE | 2018-04-25 21:40 | XR ---
EXAM DATE: 04/25/2018 9:35 PM EST AGE/SEX: 67 years / Male INDICATIONS: Fever and chest pain. CLINICAL DATA: This is the patient's subsequent encounter. Patient reports that signs and symptoms h ave been present for 1 month and indicates a pain score of 3/10. MEDICAL/SURGICAL HISTORY: . Myocardial infarction. Gastroesophageal reflux disease. Diabetes. . CABG. Gastric bypass. COMPARISON: [facility] – [place], CHEST 1V SINGLE AP, 04/19/2018. . FINDINGS: A single AP view of the chest demonstrates bibasilar airspace disease. Cardiomegaly and previous CABG . Probable small pleural effusions bilaterally. The cardiomediastinal contours are unremarkable. Oss eous structures are intact. CONCLUSION: Cardiomegaly with bibasilar airspace disease and probable pleural effusions. Electronically signed by: Darien Bermeo MD 04/25/2018 9:39 PM EST
[2018-04-25] MEDS: Sod Chloride 0.9% Inj 1,000 ML IV.SIG PRN (22:30)
[2018-04-25] MEDS: Meropenem Inj 2,000 MG in Sodium Chlor 0.9% Inj 100 ML IV.SIG SCH (23:55)
[2018-04-26] MEDS: Sod Chloride 0.9% Inj 1,000 ML IV.SIG PRN ×2 (00:01→02:01)
--- NOTE | 2018-04-26 00:40 | P.PNCA ---
Subjective Interval history: s/p cholecystectomy yesterday Today appear weak Heart rates mostly controlled Blood pressure borderline low, meds held Medications and Allergies Active Medications: Active Medications Acetaminophen (Tylenol) 650 mg PO Q4H PRN PRN Reason: Temp > 100.4 Last Admin: 03/27/18 09:04 Dose: 650 mg Hydrocodone Bitart/Acetaminophen ([place] 5/325) 1 tab PO Q3H PRN PRN Reason: PAIN SCALE 1 TO 5 Last Admin: 04/26/18 00:31 Dose: 1 tab Al Hydroxide/Mg Hydroxide (Milk Of Magnsofia Liq) 30 ml PO Q12H PRN PRN Reason: Mild Constipation Last Admin: 04/17/18 14:37 Dose: 30 ml Albuterol (Duoneb Neb (Prn)) 1 ampul NEB Q2HR NEB PRN PRN Reason: WHEEZING Last Admin: 04/17/18 00:13 Dose: 1 ampul Amiodarone HCl (Cordarone) 200 mg PO DAILY [facility] Last Admin: 04/25/18 11:52 Dose: Not Given Apixaban (Eliquis) 5 mg PO BID [facility] Last Admin: 04/21/18 20:03 Dose: 5 mg Aspirin (Aspirin Chew) 81 mg PO DAILY [facility] Last Admin: 04/25/18 09:03 Dose: 81 mg Atorvastatin Calcium (Lipitor) 20 mg PO DAILY [facility] Last Admin: 04/25/18 12:46 Dose: 20 mg Bisacodyl (Dulcolax Supp) 10 mg RECTAL DAILY PRN PRN Reason: SEVERE CONSITIPATION Last Admin: 04/23/18 03:26 Dose: 10 mg Bisacodyl (Dulcolax Ec) 10 mg PO ONCE ONE Last Admin: 03/30/18 17:35 Dose: 10 mg Dextrose (D50w Vial) 50 ml IV.PUSH UNSCH PRN PRN Reason: PER HYPOGLYCEMIA PROTOCOL Last Admin: 04/19/18 16:09 Dose: 50 ml Diltiazem HCl (Cardizem) 30 mg PO QID [facility] Last Admin: 04/15/18 13:21 Dose: Not Given Docusate Sodium (Colace) 100 mg PO BID [facility] Last Admin: 04/25/18 22:28 Dose: 100 mg Glucagon (Glucagon Inj) 1 mg OTHER PRN PRN PRN Reason: for Hypoglycemia Protocol Sodium Chloride (Ns Inj) 1,000 mls @ 84 mls/hr IV.CONT .[id number] [facility] Last Admin: 04/14/18 19:41 Dose: Not Given Sodium Chloride (Ns Inj) 500 mls @ 30 mls/hr IV.SIG .Q10H [facility] Last Admin: 04/14/18 05:34 Dose: Not Given Piperacillin/Tazobactam/Dextrose (Zosyn 3.375 Gm Premix) 50 mls @ 100 mls/hr IV.SIG Q6H [facility] Last Infusion: 04/25/18 23:55 Dose: Infused Meropenem 2,000 mg/ Sodium (Chloride) 100 mls @ 200 mls/hr IV.SIG Q8H [facility] Last Infusion: 04/26/18 00:29 Dose: Infused Sodium Chloride (Ns Inj) 1,000 mls @ 0 mls/hr IV.SIG BOLUS PRN PRN Reason: SEE LABEL COMMENTS Last Admin: 04/26/18 00:01 Dose: 600 mls/hr Insulin Aspart (Novolog Insulin Correctional Sugar Inj) 0 unit SQ ACHS AND 3AM THOMAS; Protocol Last Admin: 04/25/18 22:49 Dose: Not Given Lactulose (Lactulose Liq) 30 ml PO DAILY PRN PRN Reason: SEVERE CONSITIPATION Last Admin: 04/23/18 08:22 Dose: 30 ml Magnesium Oxide (Mag-Ox) 400 mg PO BID [facility] Last Admin: 04/25/18 22:28 Dose: 400 mg Metformin HCl (Glucophage) 1,000 mg PO BID [facility] Last Admin: 04/16/18 10:08 Dose: Not Given Metoprolol Tartrate (Lopressor) 25 mg PO BID [facility] Last Admin: 04/25/18 20:48 Dose: Not Given Miscellaneous (Pill Splitter) 1 each OTHER UNSCH PRN PRN Reason: PILL SPIT Morphine Sulfate (Morphine Inj) 2 mg IV.PUSH Q3H PRN PRN Reason: BREAKTHROUGH PAIN Multivitamins/Minerals (Theragran-M) 1 tab PO DAILY [facility] Last Admin: 04/25/18 12:45 Dose: 1 tab Ondansetron HCl (Zofran Inj) 4 mg IV.PUSH Q6H PRN PRN Reason: NAUSEA OR VOMITING Last Admin: 04/25/18 05:13 Dose: 4 mg Pantoprazole Sodium (Protonix) 40 mg PO DAILY [facility] Last Admin: 04/25/18 09:04 Dose: 40 mg Polyethylene Glycol (Miralax) 17 gm PO DAILY [facility] Last Admin: 04/25/18 16:10 Dose: Not Given Prochlorperazine Edisylate (Compazine Inj) 10 mg IV.PUSH Q6H PRN PRN Reason: NAUSEA Last Admin: 04/24/18 16:07 Dose: 10 mg Senna/Docusate Sodium (Carlotta-Colace) 1 tab PO BID [facility] Last Admin: 04/25/18 22:28 Dose: 1 tab Sennosides (Senokot) 17.2 mg PO Q12H PRN PRN Reason: Moderate Constipation Last Admin: 04/23/18 08:22 Dose: 17.2 mg Sodium Biphosphate/Sodium Phosphate (Fleets Enema (Adult)) 118 ml RECTAL UNSCH PRN PRN Reason: SEE LABEL COMMENTS Sodium Chloride (Ns Flush) 2 ml IV.FLUSH BID [facility] Last Admin: 04/25/18 22:29 Dose: 2 ml Sodium Chloride (Ns Flush) 2 ml IV.FLUSH PRN PRN PRN Reason: FLUSH AFTER USING IV ACCESS Allergies Allergy/AdvReac Type Severity Reaction Status Date / Time No Known Allergies Allergy Verified 03/19/18 10:28 Home Medications Medication Instructions Recorded Confirmed Type atorvastatin 20 mg PO DAILY 03/19/18 03/19/18 History liraglutide [Victoza 2-Sonido] 0.6 mg SUBCUT DAILY 03/19/18 03/19/18 History metformin 1,000 mg PO BID 03/19/18 03/19/18 History omeprazole-sodium bicarbonate 1 cap PO DAILY 03/19/18 03/19/18 History pantoprazole 20 mg PO DAILY 03/19/18 03/19/18 History Physical Exam Vital signs: Vital Signs 04/25/18 01:00 04/25/18 02:00 04/25/18 03:00 Temperature 97 F L Pulse Rate 82 82 75 Respiratory Rate 16 18 Blood Pressure 100/54 L Pulse Oximetry 95 04/25/18 04:00 04/25/18 05:00 04/25/18 07:00 Temperature Pulse Rate 78 75 86 Respiratory Rate Blood Pressure Pulse Oximetry 04/25/18 08:00 04/25/18 08:50 04/25/18 09:00 Temperature 98.8 F Pulse Rate 84 86 84 Respiratory Rate 17 Blood Pressure 93/50 L Pulse Oximetry 97 04/25/18 10:00 04/25/18 10:43 04/25/18 10:58 Temperature Pulse Rate 80 Respiratory Rate Blood Pressure Pulse Oximetry 97 97 04/25/18 11:00 04/25/18 11:50 04/25/18 12:00 Temperature 98.7 F Pulse Rate 80 80 84 Respiratory Rate 17 Blood Pressure 88/51 L Pulse Oximetry 97 04/25/18 12:48 04/25/18 13:00 04/25/18 14:00 Temperature Pulse Rate 88 88 88 Respiratory Rate 17 Blood Pressure 93/52 L Pulse Oximetry 97 04/25/18 14:02 04/25/18 15:00 04/25/18 16:00 Temperature 98.4 F Pulse Rate 80 86 86 Respiratory Rate 17 Blood Pressure 95/53 L Pulse Oximetry 97 04/25/18 16:05 04/25/18 17:00 04/25/18 17:55 Temperature 98.4 F 98.6 F Pulse Rate 87 84 88 Respiratory Rate 17 18 Blood Pressure 94/53 L 85/47 L Pulse Oximetry 97 98 04/25/18 18:00 04/25/18 19:22 04/25/18 20:41 Temperature 98.4 F Pulse Rate 88 95 H Respiratory Rate 16 Blood Pressure 93/55 L Pulse Oximetry 96 98 04/26/18 00:10 Temperature 98.6 F Pulse Rate 93 H Respiratory Rate 16 Blood Pressure 107/60 Pulse Oximetry 99 Intake & Output 04/25/18 04/25/18 04/26/18 06:59 18:59 06:59 Intake Total 790 / 790 1580 / 1580 2200 / 2200 Output Total 810 / 810 835 / 835 Balance -20 / -20 745 / 745 2200 / 2200 Weight 101.5 kg Intake: IV 550 / 550 1100 / 1100 2200 / 2200 NS Inj 500 ML @ Wide Open IV. 500 / 500 CONT .Q0M ONE Rx#:[id number] Merrem Inj 2,000 MG In NS Inj 100 / 100 100 ML @ 200 mls/hr IV.SIG Q8H THOMAS Rx#:[id number] Zosyn 3.375 GM Premix 50 ML @ 50 / 50 100 / 100 100 / 100 100 mls/hr IV.SIG Q6H THOMAS Rx#: [id number] NS Inj 1,000 ML @ Wide Open IV. 1000 / 1000 1999 / 1999 SIG BOLUS PRN Rx#:[id number] Oral 240 / 240 480 / 480 Output: Urine 750 / 750 810 / 810 Wound Drainage 60 / 60 # 1 Right ROCKY Drain Other: Date of Last Bowel Movement 04/23/18 Narrative: GENERAL: Fatigued, weak SKIN: Warm and dry. HEAD: Atraumatic. Normocephalic. EYES: Pupils equal and round. No scleral icterus. No injection or drainage. ENT: No nasal bleeding or discharge. Mucous membranes pink and moist. NECK: Trachea midline. No JVD. CARDIOVASCULAR: Irregularly irregular RESPIRATORY: No accessory muscle use. Clear to auscultation. Breath sounds equal bilaterally. GASTROINTESTINAL: Abdomen soft, non-tender, nondistended. Hepatic and splenic margins not palpable. MUSCULOSKELETAL: Extremities without clubbing, cyanosis, or edema. No obvious deformities. NEUROLOGICAL: Awake and alert. No obvious cranial nerve deficits. Motor grossly within normal limits. Five out of 5 muscle strength in the arms and legs. Normal speech. PSYCHIATRIC: Appropriate mood and affect; insight and judgment normal. - Urinary Catheter Management 3-way Urethral Cath placed during this visit: yes, but has since been removed by the nurse Reason for continuing: Decision to DC catheter Insertion date: 04/13/18 Insertion time: 00:00 Removal date: 04/19/18 Removal time: 10:30 Results 04/25/18 19:03 04/25/18 10:31 CBC 04/24/18 04/25/18 04/25/18 Range/Units 13:22 10:31 19:03 WBC 18.2 H (4.0-11.0) th/mm3 RBC 3.02 L (4.50-5.90) mil/mm3 Hgb 9.2 L 8.8 L 8.7 L (13.0-17.0) gm/dL Hct 27.7 L 27.2 L 26.5 L (39.0-51.0) % Plt Count 465 H (150-450) th/mm3 Comprehensive Metabolic Panel 04/25/18 Range/Units 10:31 Sodium 137 (136-145) meq/L Potassium 4.5 (3.5-5.1) meq/L Chloride 103 (98-107) meq/L Carbon Dioxide 25.8 (21.0-32.0) meq/L BUN 13 (7-18) mg/dL Creatinine 0.97 (0.60-1.30) mg/dL Calcium 7.9 L (8.5-10.1) mg/dL Intake and Output 04/25/18 04/25/18 04/26/18 14:59 22:59 06:59 Intake Total 100 / 100 2530 / 2530 1150 / 1150 Output Total 835 / 835 Balance 100 / 100 1695 / 1695 1150 / 1150 Intake: IV 100 / 100 2050 / 2050 1150 / 1150 Merrem Inj 2,000 MG In NS Inj 100 / 100 100 ML @ 200 mls/hr IV.SIG Q8H THOMAS Rx#:[id number] Zosyn 3.375 GM Premix 50 ML @ 100 / 100 50 / 50 50 / 50 100 mls/hr IV.SIG Q6H THOMAS Rx#: [id number] NS Inj 1,000 ML @ Wide Open IV. 1999 / 1999 1000 / 1000 SIG BOLUS PRN Rx#:[id number] Oral 480 / 480 Output: Urine 810 / 810 Wound Drainage # 1 Right ROCKY Drain - Imaging and Cardiology Imaging: Impressions Chest X-Ray 04/25/18 00:00 CONCLUSION: Cardiomegaly with bibasilar airspace disease and probable pleural effusions. Assessment and Plan - Assessment (1) NSTEMI (non-ST elevated myocardial infarction) Code(s): I21.4 - Non-ST elevation (NSTEMI) myocardial infarction Status: Acute (2) Afib Code(s): I48.91 - Unspecified atrial fibrillation Status: Acute (3) SIRS (systemic inflammatory response syndrome) Code(s): R65.10 - Systemic inflammatory response syndrome (SIRS) of non- infectious origin without acute organ dysfunction Status: Acute (4) Intractable abdominal pain Code(s): R10.9 - Unspecified abdominal pain Status: Acute - Plan 1) Abdominal pain/nausea/emesis Found to have cholecystitis s/p cholecystectomy 2) NSTEMI Found to have multivessel CAD CABG x3 THOMAS to LAD SVG to OM SVG to PDA 3) Afib New onset 04/15/18 Cardizem stopped due to being on vasopressor, con't Amiodarone 04/16/18 Converted back to AFib overnight, increase Metoprolol, may need to be started back on Cardizem Will need to consider anticoagulation when felt he can be restarted after cholecystectomy 4) Bacteremia KELLY negative for vegetation, no signs of endocarditis 5) Hematuria ASA restarted 6) MRCP showing multiple stones in the common bile duct
[2018-04-26] MEDS: Insulin NovoLOG Aspart Correctional Sugar Inj SQ SCH ×5 (04:36→21:15)
[2018-04-26] MEDS: Piperacil/Tazo 3.375 GM Premix 50 ML IV.SIG SCH ×4 (04:37→20:33)
[2018-04-26] MEDS: Meropenem Inj 2,000 MG in Sodium Chlor 0.9% Inj 100 ML IV.SIG SCH ×3 (05:25→21:14)
[2018-04-26 05:47] LABS: Baso # (Auto) 0.1 th/mm3 (0.0-0.2); Baso % (Auto) 0.3 % (0.0-2.0); Eos % (Auto) 0.1 % (0.0-4.0); Hematocrit 24.2 % (39.0-51.0); Hemoglobin 7.7 gm/dL (13.0-17.0); Lymph # (Auto) 1.3 th/mm3 (1.0-4.8); Lymph % (Auto) 8.2 % (9.0-44.0); Mean Corpuscular HGB Conc 31.7 % (32.0-36.0); Mean Corpuscular Hemoglobin 28.6 pg (27.0-34.0); Mean Corpuscular Volume 90.2 fL (80.0-100.0); Mean Platelet Volume 7.5 fL (7.0-11.0); Mono # (Auto) 0.8 th/mm3 (0.0-0.9); Mono % (Auto) 5.3 % (0.0-8.0); Neut # (Auto) 13.4 th/mm3 (1.8-7.7); Neut % (Auto) 86.1 % (16.0-70.0); Platelet Count 413 th/mm3 (150-450); Red Blood Count 2.68 mil/mm3 (4.50-5.90); Red Cell Distribution Width 16.8 % (11.6-17.2); White Blood Count 15.5 th/mm3 (4.0-11.0)
[2018-04-26 06:19] LABS: Alanine Aminotransferase 29 U/L (12-78); Albumin 1.7 g/dL (3.4-5.0); Alkaline Phosphatase 105 U/L (45-117); Anion Gap 6 meq/L (5-15); Aspartate Aminotransferase 22 U/L (15-37); Blood Urea Nitrogen 12 mg/dL (7-18); Calcium 6.9 mg/dL (8.5-10.1); Carbon Dioxide 26.3 meq/L (21.0-32.0); Chloride 109 meq/L (98-107); Glomerular Filtration Rate Greater Than 89 mL/min (>89); Glucose,Random 149 mg/dL (74-106); Potassium 4.2 meq/L (3.5-5.1); Sodium 141 meq/L (136-145); Total Protein 5.5 g/dL (6.4-8.2)
--- NOTE | 2018-04-26 07:17 | P.PNCC ---
Subjective Subjective Remarks/Hospital Course: is is a 67-year-old male with a history of diabetes, GERD, and prior gastric bypass. He was originally admitted on 03/19 for nausea and flank pain and was found to have acute cholecystitis requiring percutaneous cholecystostomy tube. During this hospital admission, his course was complicated by non-ST elevation myocardial infarction for which he underwent left heart catheterization which demonstrated 80% mid LAD lesion, 70% left circumflex lesion, 100% RCA occlusion with left to right collaterals. He underwent 1 week of IV antibiotics for Klebsiella and E. coli bacteremia secondary to acute cholecystitis. After completion of IV antibiotics he underwent urgent off-pump CABG x 3 (THOMAS-->LAD, SVG-->OM, SVG-->PDA) with Dr. Carlin. He arrives to the CVICU in stable condition, intubated, arousing from anesthesia. He is on a low-dose phenylephrine to maintain endorgan perfusion. In the first hour he is in the ICU, his chest tubes have minimal output, his urine output is adequate. No additional information is available from patient due to his clinical condition. Review of systems is unobtainable. Subjective: 04/15: extubated. doing well. borderline oliguria, and remains on low-dose phenylephrine. lactate cleared. scvo2 adequate. 04/16: looks improved from yesterday. needs increased rate control drugs. off vasopressors. adequate uop. 04/25: Patient underwent cholecystectomy on 04/24/2018. Today during the day he became borderline hypotensive, however responding to IV fluid boluses. He has been transferred to ICU and critical care have been reconsulted. 04/26: Hypotension probably secondary to dehydration. Blood pressure stabilized after 3 L fluid boluses overnight. Currently maintaining map above 65 not on pressors. Subjectively feels better. No fever. Urine output is adequate Objective Vital Signs / I&O: Vital Signs 04/25/18 08:00 04/25/18 08:50 04/25/18 09:00 Temperature 98.8 F Pulse Rate 84 86 84 Respiratory Rate 17 Blood Pressure 93/50 L Pulse Oximetry 97 04/25/18 10:00 04/25/18 10:43 04/25/18 10:58 Temperature Pulse Rate 80 Respiratory Rate Blood Pressure Pulse Oximetry 97 97 04/25/18 11:00 04/25/18 11:50 04/25/18 12:00 Temperature 98.7 F Pulse Rate 80 80 84 Respiratory Rate 17 Blood Pressure 88/51 L Pulse Oximetry 97 04/25/18 12:48 04/25/18 13:00 04/25/18 14:00 Temperature Pulse Rate 88 88 88 Respiratory Rate 17 Blood Pressure 93/52 L Pulse Oximetry 97 04/25/18 14:02 04/25/18 15:00 04/25/18 16:00 Temperature 98.4 F Pulse Rate 80 86 86 Respiratory Rate 17 Blood Pressure 95/53 L Pulse Oximetry 97 04/25/18 16:05 04/25/18 17:00 04/25/18 17:55 Temperature 98.4 F 98.6 F Pulse Rate 87 84 88 Respiratory Rate 17 18 Blood Pressure 94/53 L 85/47 L Pulse Oximetry 97 98 04/25/18 18:00 04/25/18 19:22 04/25/18 20:41 Temperature 98.4 F Pulse Rate 88 95 H Respiratory Rate 16 Blood Pressure 93/55 L Pulse Oximetry 96 98 04/26/18 00:10 04/26/18 03:00 Temperature 98.6 F Pulse Rate 93 H 87 Respiratory Rate 16 Blood Pressure 107/60 Pulse Oximetry 99 Intake & Output 04/25/18 04/26/18 04/26/18 18:59 06:59 18:59 Intake Total 1580 / 1580 3350 / 3350 Output Total 835 / 835 Balance 745 / 745 3350 / 3350 Weight 105 kg Intake: IV 1100 / 1100 3350 / 3350 Merrem Inj 2,000 MG In NS Inj 200 / 200 100 ML @ 200 mls/hr IV.SIG Q8H THOMAS Rx#:[id number] Zosyn 3.375 GM Premix 50 ML @ 100 / 100 150 / 150 100 mls/hr IV.SIG Q6H THOMAS Rx#: [id number] NS Inj 1,000 ML @ Wide Open IV. 1000 / 1000 3000 / 3000 SIG BOLUS PRN Rx#:[id number] Oral 480 / 480 Output: Urine 810 / 810 Wound Drainage # 1 Right ROCKY Drain Result Diagrams: 04/26/18 04:14 04/26/18 04:14 Objective Remarks: - Constitutional no acute distress - Routine HEENT Exam Head: Present: normocephalic, atraumatic Eye: Present: PERRL ENT: Present: mucous membranes dry - Routine Neck Exam Present: supple, full ROM. Absent: JVD, carotid bruit - Routine Respiratory Exam No accessory muscle use, rales, respiratory distress, rhonchi, stridor, wheezes - Routine Cardiovascular Exam S1-S2 normal no murmurs . Midline CABG incision intact well approximated - Routine Abdominal Exam Present: soft. Absent: distended, rebound, guarding - Routine Extremities Exam Absent: cyanosis, clubbing, edema - Routine Skin Exam Present: intact. Absent: cyanosis, erythema - Routine Neurological Exam Present: alert, oriented X3, moving all extremities Assessment and Plan - Assessment and Plan Plan: Sepsis/ Acute cholecystitis -History of E. coli and Klebsiella bacteremia on this admission -Status post cholecystectomy by Dr. Hall 04/24 -repeat blood cultures -pending -Continue broad-spectrum antibiotics -Infectious disease reconsultation CABG x 3 (THOMAS-->LAD, SVG-->OM, SVG-->PDA) 04/14 NSTEMI CAD Hypotension -Blood pressure improved with 3 L fluid resuscitation -Give 1 unit PRBC for hemoglobin 7.7 as this is trending down and patient was hypotensive - EF 60-65%, trace to mild MR on KELLY this admission - continue lipitor ASA -Hold metoprolol for 24 hours -Further per cardiology and CT surgery Afib - now in SR on telemetry -Well-controlled with beta blockade. Holding for 24 hours due to hypotension Hematuria S/P cystoscopy- 04/11 Hematuria - resolved -voiding well- gross clear urine -Urology input appreciated DM II - SSI. DVT GI prophylaxis -Teds SCDs -Pharmacological DVT prophylaxis per surgery and urology -Pepcid Level 2 Hospitalist consulted to assume care 04/27/2018. If systolic blood pressure remains stable patient may be moved to [facility] by noon
[2018-04-26] MEDS ORDERED: Sodium Chlor 0.9% Inj 250 ML IV.SIG SCH (08:00)
--- NOTE | 2018-04-26 09:05 | P.PNGS ---
Subjective Interval history: Discussed with Dr. Bales about 1900 last night---patient continued to be hypotensive Moved to CVICU overnight ---Given a total of 3L bolus yesterday and overnight Physical Exam Vital signs: Vital Signs 04/25/18 09:00 04/25/18 10:00 04/25/18 10:43 Temperature Pulse Rate 84 80 Respiratory Rate Blood Pressure Pulse Oximetry 97 04/25/18 10:58 04/25/18 11:00 04/25/18 11:50 Temperature 98.7 F Pulse Rate 80 80 Respiratory Rate 17 Blood Pressure 88/51 L Pulse Oximetry 97 97 04/25/18 12:00 04/25/18 12:48 04/25/18 13:00 Temperature Pulse Rate 84 88 88 Respiratory Rate 17 Blood Pressure 93/52 L Pulse Oximetry 97 04/25/18 14:00 04/25/18 14:02 04/25/18 15:00 Temperature 98.4 F Pulse Rate 88 80 86 Respiratory Rate 17 Blood Pressure 95/53 L Pulse Oximetry 97 04/25/18 16:00 04/25/18 16:05 04/25/18 17:00 Temperature 98.4 F Pulse Rate 86 87 84 Respiratory Rate 17 Blood Pressure 94/53 L Pulse Oximetry 97 04/25/18 17:55 04/25/18 18:00 04/25/18 19:22 Temperature 98.6 F 98.4 F Pulse Rate 88 88 95 H Respiratory Rate 18 16 Blood Pressure 85/47 L 93/55 L Pulse Oximetry 98 96 04/25/18 20:41 04/26/18 00:10 04/26/18 03:00 Temperature 98.6 F 98.2 F Pulse Rate 93 H 86 Respiratory Rate 16 16 Blood Pressure 107/60 102/62 Pulse Oximetry 98 99 99 04/26/18 08:18 Temperature 97.5 F L Pulse Rate 85 Respiratory Rate 20 Blood Pressure 96/62 L Pulse Oximetry 97 Intake & Output 04/25/18 04/26/18 04/26/18 18:59 06:59 18:59 Intake Total 1580 / 1580 3500 / 3500 1000 / 1000 Output Total 835 / 835 280 / 280 Balance 745 / 745 3220 / 3220 1000 / 1000 Weight 105 kg Intake: IV 1100 / 1100 3350 / 3350 1000 / 1000 Merrem Inj 2,000 MG In NS Inj 200 / 200 100 ML @ 200 mls/hr IV.SIG Q8H [facility] Rx#:[id number] Zosyn 3.375 GM Premix 50 ML @ 100 / 100 150 / 150 100 mls/hr IV.SIG Q6H [facility] Rx#: [id number] NS Inj 1,000 ML @ Wide Open IV. 1000 / 1000 3000 / 3000 1000 / 1000 SIG BOLUS PRN Rx#:[id number] Oral 480 / 480 150 / 150 Output: Urine 810 / 810 250 / 250 Wound Drainage # 1 Right ROCKY Drain Other: # Voids 1 Narrative: Alert and awake Abd: soft; tender in RUQ; ROCKY with thin bloody drainage; umbilicus with packing --- drainage on dressing - Urinary Catheter Management 3-way Urethral Cath placed during this visit: yes, but has since been removed by the nurse Reason for continuing: Decision to DC catheter Insertion date: 04/13/18 Insertion time: 00:00 Removal date: 04/19/18 Removal time: 10:30 Results - Labs 04/26/18 04:14 04/26/18 04:14 Laboratory Results - last 24 hr 04/21/18 04/25/18 04/25/18 03:30 09:03 10:31 WBC 18.2 H RBC 3.02 L Hgb 8.8 L Hct 27.2 L MCV 90.1 MCH 29.0 MCHC 32.2 RDW 17.1 Plt Count 465 H MPV 7.8 Neut % (Auto) Lymph % (Auto) [place] % (Auto) Eos % (Auto) Baso % (Auto) Neut # (Auto) Lymph # (Auto) [place] # (Auto) Eos # (Auto) Baso # (Auto) WBC Differential Differential Comment Sodium Potassium Chloride Carbon Dioxide Anion Gap BUN Creatinine Estimated GFR POC Glucose 169 H Random Glucose Calcium Calcium Adj for Albumin Magnesium Total Bilirubin AST ALT Alkaline Phosphatase Total Protein Albumin Ur Opiates Confirm Positive A 04/25/18 04/25/18 04/25/18 10:31 12:08 17:18 WBC RBC Hgb Hct MCV MCH MCHC RDW Plt Count MPV Neut % (Auto) Lymph % (Auto) [place] % (Auto) Eos % (Auto) Baso % (Auto) Neut # (Auto) Lymph # (Auto) [place] # (Auto) Eos # (Auto) Baso # (Auto) WBC Differential Differential Comment Sodium 137 Potassium 4.5 Chloride 103 Carbon Dioxide 25.8 Anion Gap 8 BUN 13 Creatinine 0.97 Estimated GFR 77 L POC Glucose 198 H 272 H Random Glucose 160 H Calcium 7.9 L Calcium Adj for Albumin Magnesium 2.2 Total Bilirubin AST ALT Alkaline Phosphatase Total Protein Albumin Ur Opiates Confirm 04/25/18 04/25/18 04/26/18 19:03 22:31 04:14 WBC 15.5 H RBC 2.68 L Hgb 8.7 L 7.7 L Hct 26.5 L 24.2 L MCV 90.2 MCH 28.6 MCHC 31.7 L RDW 16.8 Plt Count 413 MPV 7.5 Neut % (Auto) 86.1 H Lymph % (Auto) 8.2 L [place] % (Auto) 5.3 Eos % (Auto) 0.1 Baso % (Auto) 0.3 Neut # (Auto) 13.4 H Lymph # (Auto) 1.3 [place] # (Auto) 0.8 Eos # (Auto) 0.0 Baso # (Auto) 0.1 WBC Differential . Differential Comment Auto diff final Sodium Potassium Chloride Carbon Dioxide Anion Gap BUN Creatinine Estimated GFR POC Glucose 139 H Random Glucose Calcium Calcium Adj for Albumin Magnesium Total Bilirubin AST ALT Alkaline Phosphatase Total Protein Albumin Ur Opiates Confirm 04/26/18 04/26/18 04/26/18 04:14 04:23 08:02 WBC RBC Hgb Hct MCV MCH MCHC RDW Plt Count MPV Neut % (Auto) Lymph % (Auto) [place] % (Auto) Eos % (Auto) Baso % (Auto) Neut # (Auto) Lymph # (Auto) [place] # (Auto) Eos # (Auto) Baso # (Auto) WBC Differential Differential Comment Sodium 141 Potassium 4.2 Chloride 109 H Carbon Dioxide 26.3 Anion Gap 6 BUN 12 Creatinine 0.74 Estimated GFR Greater than 89 POC Glucose 214 H 105 Random Glucose 149 H Calcium 6.9 L* D Calcium Adj for Albumin 8.7 Magnesium Total Bilirubin 0.4 AST 22 ALT 29 Alkaline Phosphatase 105 Total Protein 5.5 L D Albumin 1.7 L Ur Opiates Confirm - Imaging Imaging: ITS Impressions Abdomen/Pelvis CT 03/19/18 10:38 CONCLUSION: 1. Short segmental concentric wall thickening is identified in the distal descending colon. Colon malignancy needs to be excluded. 2. Calcified gallstones with moderate distention of the gallbladder. 3. No other significant abnormality. Chest CTA 03/19/18 13:37 CONCLUSION: 1. No evidence of acute pulmonary embolism. 2. Mild subpleural airspace disease and reticulations which may be chronic. 3. No evidence of segmental or lobar lung consolidation. Abdomen/Pelvis CTA 03/22/18 00:00 CONCLUSION: 1. Prominent gallbladder distention and surrounding inflammatory changes consistent with cholecystitis 2. No acute vascular findings in the abdomen or pelvis. Carotid Doppler Study 03/25/18 12:49 CONCLUSION: 1. Right Internal Carotid Artery: No significant plaque or narrowing. 2. Left Internal Carotid Artery: No significant plaque or narrowing. Lower Extremity Ultrasound 03/25/18 12:49 CONCLUSION: Bilateral greater saphenous vein measurements as above. No acute abnormalities are demonstrated. Venous Doppler Study 03/25/18 12:49 CONCLUSION: Negative study. No venous thrombosis of either lower extremity. Percutaneous Cholangiogram 03/31/18 00:00 CONCLUSION: Uncomplicated percutaneous cholecystostomy as above. Cholangiopancreatography MRI 04/03/18 17:20 CONCLUSION: 1. Numerous filling defects within the central intrahepatic biliary ducts, common hepatic ducts, and common bile ducts. These represent stones and/or thrombus/hemorrhage. The linear defects are more likely related to hemorrhage. 2. Dilatation of the gallbladder with thickened gallbladder wall and a cholecystostomy tube in place. There is heterogeneous material within the gallbladder. Abdomen/Bladder Ultrasound 04/07/18 00:00 CONCLUSION: 1. No findings to account for the patient's hematuria. 2. Nonvisualization of the left kidney. 3. No evidence of hydronephrosis or nephrolithiasis in the right kidney. Abdomen X-Ray 04/21/18 00:00 CONCLUSION: Nonobstructive bowel gas pattern. Moderate to large stool throughout the colon. Chest X-Ray 04/25/18 00:00 CONCLUSION: Cardiomegaly with bibasilar airspace disease and probable pleural effusions. Assessment and Plan - Assessment (1) Intractable abdominal pain Code(s): R10.9 - Unspecified abdominal pain Status: Acute (2) NSTEMI (non-ST elevated myocardial infarction) Code(s): I21.4 - Non-ST elevation (NSTEMI) myocardial infarction Status: Acute (3) Afib Code(s): I48.91 - Unspecified atrial fibrillation Status: Acute (4) Cholecystitis Code(s): K81.9 - Cholecystitis, unspecified Status: Acute Plan: 67 year old male with afib RVR; s/p cardiac cath; cholecystics -S/p CABG -POD2 lap burt with drain placement -BP better overnight; SBP 96 this AM -WBC elevated but improved from yesterday -Hmg 7.7--- give 1 unit PRBCs -Okay for regular diet -Continue dressing changes daily and PRN -Updated Itzel on overnight events per Mr. Bridges request -I would like to see patient's BP better before [facility]
[2018-04-26] MEDS: Sod Chloride 0.9% Inj 1,000 ML IV.CONT SCH ×3 (10:43→17:36)
[2018-04-26] MEDS: Amiodarone 200 MG Tablet PO SCH (10:44)
[2018-04-26] MEDS: Docusate Sodium 100 MG Capsule PO SCH ×2 (10:44→20:34)
[2018-04-26] MEDS: Senna/Docusate Sodium 8.6/50 MG Tablet PO SCH ×2 (10:44→20:33)
--- NOTE | 2018-04-26 10:44 | P.PNID ---
Subjective Remarks: ID coverage for Dr. Anastacio Sanchez. Reconsulted because patient has leukocytosis and hypotension. Patient was transferred to intensive care unit because of hypotension. He received fluid boluses. His blood pressure improved. Current blood pressure is 105/65. He is awake and alert. He notes pain on his abdomen where packing was placed. The patient is status post lap cholecystectomy for acute gangrenous cholecystitis on 04/24/2018. He has a little nausea. Notes that he coughed up some phlegm earlier. Denies chills. Afebrile. Mr. Bridges is a 67-year-old male patient who presented to the emergency room on March 19, 2018. Patient initially reported nausea vomiting as well as abdominal pain on admission. Of note patient's past medical history significant for gastric bypass surgery many years back. Patient also has a history of type 2 diabetes, GERD, hyperlipidemia as well as morbid obesity. Condition he reports chronic lower back pain as well as arthritis. Patient reports that his abdominal pain started in the left lower quadrant associated with nausea and vomiting of clear emesis. He reports that he was still vomiting until yesterday and vomiting has now resolved. He continues to have abdominal pain. Patient denied any fever chills or night sweats prior to admission. Patient reports that his last EGD and colonoscopy was in 2006 prior to gastric bypass surgery. Patient reports he has lost a total of 257 pounds since he has had surgery. Patient was asked to have a repeat colonoscopy in 10 years if there were no abnormal findings. He denies any use of alcohol or tobacco products recently but has used in the past. He reports that his mother had gastric cancer in his brother also had a gastric cancer at the age of 38 years. He denies any hematemesis or any black tarry stools or fresh blood in stool. Patient reports that he has a bowel movement every 1-2 days. He denies any history of constipation and diarrhea. A CT of the abdomen pelvis done on admission reveals thickening of the distal descending colon and there is a concern for colonic mass and therefore GI has been consulted. Due to elevated troponins cardiology has also been called and there is a plan for KELLY and possibly a cardiac cath in the future. Blood cultures drawn and admission are positive for gram-negative rods and infectious diseases consulted for evaluation and management of the same. Post CABG on 04/14/2018. Antibiotics: Meropenem Piperacillin/tazobactam Lines: Lines ok Past Medical History: reviewed Allergies/Adverse Reactions: Allergies No Known Allergies Allergy (Verified 03/19/18 10:28) Objective Vital Signs 04/25/18 10:43 04/25/18 10:58 04/25/18 11:00 Temperature Pulse Rate 80 Respiratory Rate Blood Pressure Pulse Oximetry 97 97 04/25/18 11:50 04/25/18 12:00 04/25/18 12:48 Temperature 98.7 F Pulse Rate 80 84 88 Respiratory Rate 17 17 Blood Pressure 88/51 L 93/52 L Pulse Oximetry 97 97 04/25/18 13:00 04/25/18 14:00 04/25/18 14:02 Temperature 98.4 F Pulse Rate 88 88 80 Respiratory Rate 17 Blood Pressure 95/53 L Pulse Oximetry 97 04/25/18 15:00 04/25/18 16:00 04/25/18 16:05 Temperature 98.4 F Pulse Rate 86 86 87 Respiratory Rate 17 Blood Pressure 94/53 L Pulse Oximetry 97 04/25/18 17:00 04/25/18 17:55 04/25/18 18:00 Temperature 98.6 F Pulse Rate 84 88 88 Respiratory Rate 18 Blood Pressure 85/47 L Pulse Oximetry 98 04/25/18 19:22 04/25/18 20:41 04/26/18 00:10 Temperature 98.4 F 98.6 F Pulse Rate 95 H 93 H Respiratory Rate 16 16 Blood Pressure 93/55 L 107/60 Pulse Oximetry 96 98 99 04/26/18 03:00 04/26/18 08:18 Temperature 98.2 F 97.5 F L Pulse Rate 86 85 Respiratory Rate 16 20 Blood Pressure 102/62 96/62 L Pulse Oximetry 99 97 Intake & Output 04/25/18 04/26/18 04/26/18 18:59 06:59 18:59 Intake Total 1580 / 1580 3500 / 3500 1000 / 1000 Output Total 835 / 835 280 / 280 Balance 745 / 745 3220 / 3220 1000 / 1000 Weight 105 kg Intake: IV 1100 / 1100 3350 / 3350 1000 / 1000 Merrem Inj 2,000 MG In NS Inj 200 / 200 100 ML @ 200 mls/hr IV.SIG Q8H [facility] Rx#:[id number] Zosyn 3.375 GM Premix 50 ML @ 100 / 100 150 / 150 100 mls/hr IV.SIG Q6H [facility] Rx#: [id number] NS Inj 1,000 ML @ Wide Open IV. 1000 / 1000 3000 / 3000 1000 / 1000 SIG BOLUS PRN Rx#:[id number] Oral 480 / 480 150 / 150 Output: Urine 810 / 810 250 / 250 Wound Drainage # 1 Right ROCKY Drain Other: # Voids 1 04/26/18 00:55 Blood - Peripheral Aerobic Blood Culture - Pending 04/26/18 00:55 Blood - Peripheral Anaerobic Blood Culture - Pending 04/26/18 01:00 Blood - Peripheral Aerobic Blood Culture - Pending 04/26/18 01:00 Blood - Peripheral Anaerobic Blood Culture - Pending Lab - Hematology Results 04/24/18 04/25/18 04/25/18 13:22 10:31 19:03 WBC 18.2 H RBC 3.02 L Hgb 9.2 L 8.8 L 8.7 L Hct 27.7 L 27.2 L 26.5 L MCV 90.1 MCH 29.0 MCHC 32.2 RDW 17.1 Plt Count 465 H MPV 7.8 Neut % (Auto) Lymph % (Auto) [place] % (Auto) Eos % (Auto) Baso % (Auto) Neut # (Auto) Lymph # (Auto) [place] # (Auto) Eos # (Auto) Baso # (Auto) WBC Differential Differential Comment 04/26/18 04:14 WBC 15.5 H RBC 2.68 L Hgb 7.7 L Hct 24.2 L MCV 90.2 MCH 28.6 MCHC 31.7 L RDW 16.8 Plt Count 413 MPV 7.5 Neut % (Auto) 86.1 H Lymph % (Auto) 8.2 L [place] % (Auto) 5.3 Eos % (Auto) 0.1 Baso % (Auto) 0.3 Neut # (Auto) 13.4 H Lymph # (Auto) 1.3 [place] # (Auto) 0.8 Eos # (Auto) 0.0 Baso # (Auto) 0.1 WBC Differential . Differential Comment Auto diff final Lab - Chemistry Results 04/24/18 04/24/18 04/24/18 13:56 15:01 21:31 Sodium Potassium Chloride Carbon Dioxide Anion Gap BUN Creatinine Estimated GFR POC Glucose 257 H 236 H 304 H Random Glucose Calcium Calcium Adj for Albumin Magnesium Total Bilirubin AST ALT Alkaline Phosphatase Total Protein Albumin 04/25/18 04/25/18 04/25/18 04:58 09:03 10:31 Sodium 137 Potassium 4.5 Chloride 103 Carbon Dioxide 25.8 Anion Gap 8 BUN 13 Creatinine 0.97 Estimated GFR 77 L POC Glucose 242 H 169 H Random Glucose 160 H Calcium 7.9 L Calcium Adj for Albumin Magnesium 2.2 Total Bilirubin AST ALT Alkaline Phosphatase Total Protein Albumin 04/25/18 04/25/18 04/25/18 12:08 17:18 22:31 Sodium Potassium Chloride Carbon Dioxide Anion Gap BUN Creatinine Estimated GFR POC Glucose 198 H 272 H 139 H Random Glucose Calcium Calcium Adj for Albumin Magnesium Total Bilirubin AST ALT Alkaline Phosphatase Total Protein Albumin 04/26/18 04/26/18 04/26/18 04:14 04:23 08:02 Sodium 141 Potassium 4.2 Chloride 109 H Carbon Dioxide 26.3 Anion Gap 6 BUN 12 Creatinine 0.74 Estimated GFR Greater than 89 POC Glucose 214 H 105 Random Glucose 149 H Calcium 6.9 L* D Calcium Adj for Albumin 8.7 Magnesium Total Bilirubin 0.4 AST 22 ALT 29 Alkaline Phosphatase 105 Total Protein 5.5 L D Albumin 1.7 L Imaging: ITS Impressions Abdomen/Pelvis CT 03/19/18 10:38 CONCLUSION: 1. Short segmental concentric wall thickening is identified in the distal descending colon. Colon malignancy needs to be excluded. 2. Calcified gallstones with moderate distention of the gallbladder. 3. No other significant abnormality. Chest CTA 03/19/18 13:37 CONCLUSION: 1. No evidence of acute pulmonary embolism. 2. Mild subpleural airspace disease and reticulations which may be chronic. 3. No evidence of segmental or lobar lung consolidation. Abdomen/Pelvis CTA 03/22/18 00:00 CONCLUSION: 1. Prominent gallbladder distention and surrounding inflammatory changes consistent with cholecystitis 2. No acute vascular findings in the abdomen or pelvis. Carotid Doppler Study 03/25/18 12:49 CONCLUSION: 1. Right Internal Carotid Artery: No significant plaque or narrowing. 2. Left Internal Carotid Artery: No significant plaque or narrowing. Lower Extremity Ultrasound 03/25/18 12:49 CONCLUSION: Bilateral greater saphenous vein measurements as above. No acute abnormalities are demonstrated. Venous Doppler Study 03/25/18 12:49 CONCLUSION: Negative study. No venous thrombosis of either lower extremity. Percutaneous Cholangiogram 03/31/18 00:00 CONCLUSION: Uncomplicated percutaneous cholecystostomy as above. Cholangiopancreatography MRI 04/03/18 17:20 CONCLUSION: 1. Numerous filling defects within the central intrahepatic biliary ducts, common hepatic ducts, and common bile ducts. These represent stones and/or thrombus/hemorrhage. The linear defects are more likely related to hemorrhage. 2. Dilatation of the gallbladder with thickened gallbladder wall and a cholecystostomy tube in place. There is heterogeneous material within the gallbladder. Abdomen/Bladder Ultrasound 04/07/18 00:00 CONCLUSION: 1. No findings to account for the patient's hematuria. 2. Nonvisualization of the left kidney. 3. No evidence of hydronephrosis or nephrolithiasis in the right kidney. Abdomen X-Ray 04/21/18 00:00 CONCLUSION: Nonobstructive bowel gas pattern. Moderate to large stool throughout the colon. Chest X-Ray 04/25/18 00:00 CONCLUSION: Cardiomegaly with bibasilar airspace disease and probable pleural effusions. Physical Exam: GENERAL: Alert and oriented, looks fatigued. HEENT: Head atraumatic. Pupils reactive to light. Extraocular movements intact. Pale sclera. Oropharynx mucosa slightly dry. NECK: Supple without adenopathy. No swelling. LUNGS: Decreased breath sounds bilateral. HEART: S1 and S2 no murmurs or rubs or gallops. ABDOMEN: Bowel sounds diminished, soft, no tenderness. No masses palpable. Post laparoscopic cholecystectomy. ROCKY drain in place. Serous sanguinous drainage clear. No evidence of cellulitis. EXTREMITIES: No clubbing or cyanosis. Trace edema at the lower extremities SKIN: No rash NEUROLOGIC: Nonfocal. PSYCH: Calm and cooperative. Lines without evidence of infection. Assessment and Plan - Plan Sepsis present on admission. New episode of hypotension and white blood cell count increased. Not clear whether this is due to sepsis. Acute gangrenous cholecystitis. Patient is post lap cholecystectomy. Treated for gram-negative bacteremia E. coli and Klebsiella pneumonia. Acute cholecystitis s/p Cholecystostomy tube placement. Leukocytosis. White blood cell count elevated. Increase from previous day however. Non-ST elevation SC. Patient underwent CABG. Recommendations: Stop meropenem. Continue piperacillin/tazobactam. Monitor the blood cultures. Monitor the white blood cell count. Monitor temperature Monitor for other evidence of source for infection.
[2018-04-26] MEDS: Magnesium Oxide 400 MG Tablet PO SCH ×2 (10:45→20:34)
[2018-04-26] MEDS: Polyethylene Glycol 3350 17 GM Packet PO SCH (10:45)
[2018-04-26] MEDS: Multivitamin/Minerals Therapeutic Tablet PO SCH (10:46)
[2018-04-26] MEDS ORDERED: Amiodarone Inj 150 MG in Dextrose 5% in Water Inj 97 ML IV.SIG ONE ×2 (20:00)
--- NOTE | 2018-04-26 20:58 | ECG ---
Date Performed: 04/26/2018 Time Performed: 19:05:40 PTAGE: 67 years EKG: Atrial fibrillation/flutter with rapid ventricular response. Leftward axis Inferior infarct - age undetermined Possible anterior infarct - age undetermined Nonspecific T wave changes Low QRS v oltages in precordial leads Abnormal ECG No significant change from prior electrocardiogram. PREVIOUS TRACING : 04/16/2018 18.55 DOCTOR: Alvaro Blackwell Interpretating Date/Time 04/26/2018 20:58:07
--- NOTE | 2018-04-26 23:19 | P.PNCA ---
Subjective Interval history: Transferred to the unit due to hypotension overnight Given 3L of NS, doing better Blood pressure better, heart rates controlled AV mya blocking agents not given throughout the past 24 hrs due to low blood pressure Medications and Allergies Active Medications: Active Medications Acetaminophen (Tylenol) 650 mg PO Q4H PRN PRN Reason: Temp > 100.4 Last Admin: 03/27/18 09:04 Dose: 650 mg Hydrocodone Bitart/Acetaminophen ([place] 5/325) 1 tab PO Q3H PRN PRN Reason: PAIN SCALE 1 TO 5 Last Admin: 04/26/18 04:38 Dose: 1 tab Al Hydroxide/Mg Hydroxide (Milk Of Magnsofia Liq) 30 ml PO Q12H PRN PRN Reason: Mild Constipation Last Admin: 04/17/18 14:37 Dose: 30 ml Albuterol (Duoneb Neb (Prn)) 1 ampul NEB Q2HR NEB PRN PRN Reason: WHEEZING Last Admin: 04/17/18 00:13 Dose: 1 ampul Amiodarone HCl (Cordarone) 200 mg PO DAILY [facility] Last Admin: 04/26/18 10:44 Dose: 200 mg Apixaban (Eliquis) 5 mg PO BID [facility] Last Admin: 04/21/18 20:03 Dose: 5 mg Aspirin (Aspirin Chew) 81 mg PO DAILY [facility] Last Admin: 04/26/18 10:45 Dose: 81 mg Atorvastatin Calcium (Lipitor) 20 mg PO DAILY [facility] Last Admin: 04/26/18 10:44 Dose: 20 mg Bisacodyl (Dulcolax Supp) 10 mg RECTAL DAILY PRN PRN Reason: SEVERE CONSITIPATION Last Admin: 04/23/18 03:26 Dose: 10 mg Bisacodyl (Dulcolax Ec) 10 mg PO ONCE ONE Last Admin: 03/30/18 17:35 Dose: 10 mg Dextrose (D50w Vial) 50 ml IV.PUSH UNSCH PRN PRN Reason: PER HYPOGLYCEMIA PROTOCOL Last Admin: 04/19/18 16:09 Dose: 50 ml Diltiazem HCl (Cardizem) 30 mg PO QID [facility] Last Admin: 04/15/18 13:21 Dose: Not Given Docusate Sodium (Colace) 100 mg PO BID [facility] Last Admin: 04/26/18 20:34 Dose: 100 mg Glucagon (Glucagon Inj) 1 mg OTHER PRN PRN PRN Reason: for Hypoglycemia Protocol Sodium Chloride (Ns Inj) 500 mls @ 30 mls/hr IV.SIG .Q10H THOMAS Last Admin: 04/14/18 05:34 Dose: Not Given Piperacillin/Tazobactam/Dextrose (Zosyn 3.375 Gm Premix) 50 mls @ 100 mls/hr IV.SIG Q6H THOMAS Last Admin: 04/26/18 20:33 Dose: 100 mls/hr Meropenem 2,000 mg/ Sodium (Chloride) 100 mls @ 200 mls/hr IV.SIG Q8H THOMAS Last Admin: 04/26/18 21:14 Dose: 200 mls/hr Sodium Chloride (Ns Inj) 1,000 mls @ 0 mls/hr IV.SIG BOLUS PRN PRN Reason: SEE LABEL COMMENTS Last Infusion: 04/26/18 07:42 Dose: Infused Sodium Chloride (Ns Inj) 250 mls @ 15 mls/hr IV.SIG ONCE THOMAS Stop: 04/27/18 00:39 Last Infusion: 04/26/18 15:57 Dose: Infused Sodium Chloride (Ns Inj) 1,000 mls @ 84 mls/hr IV.CONT .[id number] THOMAS Last Infusion: 04/26/18 15:57 Dose: 84 mls/hr Amiodarone HCl 450 mg/ (Dextrose) 250 mls @ 33.33 mls/hr IV.CONT TITRATE PRN; Protocol PRN Reason: Per Protocol Last Admin: 04/26/18 21:17 Dose: 1 mg/min, 33.33 mls/hr Insulin Aspart (Novolog Insulin Correctional Sugar Inj) 0 unit SQ ACHS AND 3AM THOMAS; Protocol Last Admin: 04/26/18 21:15 Dose: 10 unit Lactulose (Lactulose Liq) 30 ml PO DAILY PRN PRN Reason: SEVERE CONSITIPATION Last Admin: 04/23/18 08:22 Dose: 30 ml Magnesium Oxide (Mag-Ox) 400 mg PO BID [facility] Last Admin: 04/26/18 20:34 Dose: 400 mg Metformin HCl (Glucophage) 1,000 mg PO BID [facility] Last Admin: 04/16/18 10:08 Dose: Not Given Metoprolol Tartrate (Lopressor) 25 mg PO BID [facility] Last Admin: 04/25/18 20:48 Dose: Not Given Miscellaneous (Pill Splitter) 1 each OTHER UNSCH PRN PRN Reason: PILL SPIT Morphine Sulfate (Morphine Inj) 2 mg IV.PUSH Q3H PRN PRN Reason: BREAKTHROUGH PAIN Multivitamins/Minerals (Theragran-M) 1 tab PO DAILY [facility] Last Admin: 04/26/18 10:46 Dose: 1 tab Ondansetron HCl (Zofran Inj) 4 mg IV.PUSH Q6H PRN PRN Reason: NAUSEA OR VOMITING Last Admin: 04/25/18 05:13 Dose: 4 mg Pantoprazole Sodium (Protonix) 40 mg PO DAILY [facility] Last Admin: 04/26/18 10:44 Dose: 40 mg Polyethylene Glycol (Miralax) 17 gm PO DAILY [facility] Last Admin: 04/26/18 10:45 Dose: 17 gm Prochlorperazine Edisylate (Compazine Inj) 10 mg IV.PUSH Q6H PRN PRN Reason: NAUSEA Last Admin: 04/24/18 16:07 Dose: 10 mg Senna/Docusate Sodium (Carlotta-Colace) 1 tab PO BID [facility] Last Admin: 04/26/18 20:33 Dose: 1 tab Sennosides (Senokot) 17.2 mg PO Q12H PRN PRN Reason: Moderate Constipation Last Admin: 04/23/18 08:22 Dose: 17.2 mg Sodium Biphosphate/Sodium Phosphate (Fleets Enema (Adult)) 118 ml RECTAL UNSCH PRN PRN Reason: SEE LABEL COMMENTS Sodium Chloride (Ns Flush) 2 ml IV.FLUSH BID [facility] Last Admin: 04/26/18 10:44 Dose: 2 ml Sodium Chloride (Ns Flush) 2 ml IV.FLUSH PRN PRN PRN Reason: FLUSH AFTER USING IV ACCESS Allergies Allergy/AdvReac Type Severity Reaction Status Date / Time No Known Allergies Allergy Verified 03/19/18 10:28 Home Medications Medication Instructions Recorded Confirmed Type atorvastatin 20 mg PO DAILY 03/19/18 03/19/18 History liraglutide [Victoza 2-Sonido] 0.6 mg SUBCUT DAILY 03/19/18 03/19/18 History metformin 1,000 mg PO BID 03/19/18 03/19/18 History omeprazole-sodium bicarbonate 1 cap PO DAILY 03/19/18 03/19/18 History pantoprazole 20 mg PO DAILY 03/19/18 03/19/18 History Physical Exam Vital signs: Vital Signs 04/26/18 00:10 04/26/18 03:00 04/26/18 07:15 Temperature 98.6 F 98.2 F Pulse Rate 93 H 86 Respiratory Rate 16 16 Blood Pressure 107/60 102/62 Pulse Oximetry 99 99 97 04/26/18 08:18 04/26/18 11:00 04/26/18 11:17 Temperature 97.5 F L 98.2 F 98.6 F Pulse Rate 85 86 84 Respiratory Rate 20 20 20 Blood Pressure 96/62 L 107/62 97/62 L Pulse Oximetry 97 97 97 Intake & Output 04/26/18 04/26/18 04/27/18 06:59 18:59 06:59 Intake Total 3500 / 3500 3440 / 3440 Output Total 280 / 280 880 / 880 Balance 3220 / 3220 2560 / 2560 Weight 105 kg Intake: IV 3350 / 3350 2800 / 2800 Merrem Inj 2,000 MG In NS Inj 200 / 200 100 / 100 100 ML @ 200 mls/hr IV.SIG Q8H THOMAS Rx#:[id number] Zosyn 3.375 GM Premix 50 ML @ 150 / 150 100 / 100 100 mls/hr IV.SIG Q6H [facility]OM[facility] Rx#: [id number] NS Inj 1,000 ML @ Wide Open IV. 3000 / 3000 1000 / 1000 SIG BOLUS PRN Rx#:[id number] NS Inj 250 ML @ 15 mls/hr IV. 100 / 100 SIG ONCE [facility]OMAS Rx#:[id number] Oral 150 / 150 240 / 240 Intake (Blood Product) Amt 400 / 400 Rbc As-3 Leukoreduced Unit 400 / 400 [id number] Output: Urine 250 / 250 850 / 850 Wound Drainage 30 / 30 30 / 30 # 1 Right ROCKY Drain 30 / 30 30 / 30 Other: # Voids 1 Narrative: GENERAL: NAD, AAOx3 SKIN: Warm and dry. HEAD: Atraumatic. Normocephalic. EYES: Pupils equal and round. No scleral icterus. No injection or drainage. ENT: No nasal bleeding or discharge. Mucous membranes pink and moist. NECK: Trachea midline. No JVD. CARDIOVASCULAR: Irregularly irregular RESPIRATORY: No accessory muscle use. Clear to auscultation. Breath sounds equal bilaterally. GASTROINTESTINAL: Abdomen soft, non-tender, nondistended. Hepatic and splenic margins not palpable. ROCKY drain in place MUSCULOSKELETAL: Extremities without clubbing, cyanosis, or edema. No obvious deformities. NEUROLOGICAL: Awake and alert. No obvious cranial nerve deficits. Motor grossly within normal limits. Five out of 5 muscle strength in the arms and legs. Normal speech. PSYCHIATRIC: Appropriate mood and affect; insight and judgment normal. - Urinary Catheter Management 3-way Urethral Cath placed during this visit: yes, but has since been removed by the nurse Reason for continuing: Decision to DC catheter Insertion date: 04/13/18 Insertion time: 00:00 Removal date: 04/19/18 Removal time: 10:30 Results 04/26/18 04:14 04/26/18 04:14 Cardiac Enzymes 04/26/18 Range/Units 04:14 AST 22 (15-37) U/L CBC 04/25/18 04/25/18 04/26/18 Range/Units 10:31 19:03 04:14 WBC 18.2 H 15.5 H (4.0-11.0) th/mm3 RBC 3.02 L 2.68 L (4.50-5.90) mil/mm3 Hgb 8.8 L 8.7 L 7.7 L (13.0-17.0) gm/dL Hct 27.2 L 26.5 L 24.2 L (39.0-51.0) % Plt Count 465 H 413 (150-450) th/mm3 Neut # (Auto) 13.4 H (1.8-7.7) th/mm3 Lymph # (Auto) 1.3 (1.0-4.8) th/mm3 Moore # (Auto) 0.8 (0.0-0.9) th/mm3 Eos # (Auto) 0.0 (0.0-0.4) th/mm3 Baso # (Auto) 0.1 (0.0-0.2) th/mm3 Comprehensive Metabolic Panel 04/25/18 04/26/18 Range/Units 10:31 04:14 Sodium 137 141 (136-145) meq/L Potassium 4.5 4.2 (3.5-5.1) meq/L Chloride 103 109 H (98-107) meq/L Carbon Dioxide 25.8 26.3 (21.0-32.0) meq/L BUN 13 12 (7-18) mg/dL Creatinine 0.97 0.74 (0.60-1.30) mg/dL Calcium 7.9 L 6.9 L* D (8.5-10.1) mg/dL AST 22 (15-37) U/L ALT 29 (12-78) U/L Alkaline Phosphatase 105 (45-117) U/L Total Protein 5.5 L D (6.4-8.2) g/dL Albumin 1.7 L (3.4-5.0) g/dL Intake and Output 04/26/18 04/26/18 04/27/18 14:59 22:59 06:59 Intake Total 1450 / 1450 1989 Output Total 880 / 880 Balance 1450 / 1450 1110 / 1110 Intake: IV 1050 / 1050 1750 / 1750 Merrem Inj 2,000 MG In NS Inj 100 / 100 100 ML @ 200 mls/hr IV.SIG Q8H [facility] Rx#:[id number] Zosyn 3.375 GM Premix 50 ML @ 50 / 50 50 / 50 100 mls/hr IV.SIG Q6H [facility] Rx#: [id number] NS Inj 1,000 ML @ Wide Open IV. 1000 / 1000 SIG BOLUS PRN Rx#:[id number] NS Inj 250 ML @ 15 mls/hr IV. 100 / 100 SIG ONCE [facility]OM[facility] Rx#:[id number] Oral 240 / 240 Intake (Blood Product) Amt 400 / 400 Rbc As-3 Leukoreduced Unit 400 / 400 [id number] Output: Urine 850 / 850 Wound Drainage # 1 Right ROCKY Drain - Imaging and Cardiology Imaging: Impressions Chest X-Ray 04/25/18 00:00 CONCLUSION: Cardiomegaly with bibasilar airspace disease and probable pleural effusions. Assessment and Plan - Assessment (1) NSTEMI (non-ST elevated myocardial infarction) Code(s): I21.4 - Non-ST elevation (NSTEMI) myocardial infarction Status: Acute (2) Afib Code(s): I48.91 - Unspecified atrial fibrillation Status: Acute (3) SIRS (systemic inflammatory response syndrome) Code(s): R65.10 - Systemic inflammatory response syndrome (SIRS) of non- infectious origin without acute organ dysfunction Status: Acute (4) Intractable abdominal pain Code(s): R10.9 - Unspecified abdominal pain Status: Acute - Plan 1) Abdominal pain/nausea/emesis Found to have cholecystitis s/p cholecystectomy 2) NSTEMI Found to have multivessel CAD CABG x3 THOMAS to LAD SVG to OM SVG to PDA 3) Afib New onset 04/15/18 Cardizem stopped due to being on vasopressor, con't Amiodarone 04/16/18 Converted back to AFib overnight, increase Metoprolol, may need to be started back on Cardizem Will need to consider anticoagulation when felt he can be restarted after cholecystectomy Once BP stable, need to restart AV mya blocking agents 4) Bacteremia KELLY negative for vegetation, no signs of endocarditis 5) Hematuria ASA restarted 6) MRCP showing multiple stones in the common bile duct
[2018-04-27] MEDS: Sod Chloride 0.9% Inj 1,000 ML IV.CONT SCH ×4 (02:23→22:13)
[2018-04-27] MEDS: Piperacil/Tazo 3.375 GM Premix 50 ML IV.SIG SCH ×4 (03:37→22:12)
[2018-04-27] MEDS: Meropenem Inj 2,000 MG in Sodium Chlor 0.9% Inj 100 ML IV.SIG SCH (05:09)
[2018-04-27] MEDS: Insulin NovoLOG Aspart Correctional Sugar Inj SQ SCH ×5 (05:48→22:12)
--- NOTE | 2018-04-27 07:54 | P.PNIM ---
Subjective Interval history: f/u; CAD/ cholecystitis in no acute distress. no chest pain but has some pain to the site of drain ( RUQ). no nausea/ emesis. afebrile. says that overall feels better today. Physical Exam Vital signs: Last Vital Signs Temp 98.4 F 04/27/18 03:00 Pulse 112 H 04/27/18 04:00 Resp 16 04/27/18 03:00 BP 119/66 04/27/18 03:00 Pulse Ox 98 04/27/18 03:00 Intake & Output 04/25/18 04/26/18 04/27/18 04/28/18 06:59 06:59 06:59 06:59 Intake Total 2090 / 2090 5080 / 5080 5567 / 5567 Output Total 1310 / 1310 1115 / 1115 1200 / 1200 Balance 780 / 780 3965 / 3965 4367 / 4367 Weight 101.5 kg 105 kg 105.5 kg Constitutional no acute distress Routine Respiratory Exam Present CTA bilaterally Routine Cardiovascular Exam Present RRR Routine Abdominal Exam Present soft and tenderness Comments: mild lower abdominal tenderness- drain in place in RUQ. Routine Extremities Exam Comments: no pedal edema. Routine Neurological Exam Present alert and oriented X3 Urinary Catheter Management 3-way Urethral: Cath placed during this visit: yes, but has since been removed by the nurse Insertion date: 04/13/18 Insertion time: 00:00 Removal date: 04/19/18 Removal time: 10:30 Results Labs CBC & Chem 7: 04/26/18 04:14 04/26/18 04:14 Procedures Procedures: CABG X3 ON 04-14 THOMAS-->LAD, SVG-->OM, SVG-->PDA PREPROCEDURE DIAGNOSES 1. Severe Multi Vessel Coronary Artery Disease. 2. Acute Myocardial Infarction (NSTEMI) 3. Acute Cholecystitis s/p percutaneous cholecystostomy tube placement 4. Sepsis and Bacteremia 5. Severe Pulmonary Insufficiency 6. Intramyocardial Coronary Vessels POSTPROCEDURE DIAGNOSES Same SURGICAL PROCEDURE 1. Urgent Off-pump Coronary Artery Bypass Grafting x 3 with Left Internal Mammary Artery (THOMAS) to Left Anterior Descending (LAD), reverse saphenous vein graft to obtuse Marginal branch of the left Circumflex artery, reverse saphenous vein graft to the posterior Descending branch of the right Coronary artery 2. Left leg Endoscopic Vein [place] 3. Ultrasound-guided dissection of the LAD 4. Intraoperative Vein Mapping. Cholecystectomy 04/24/2018 Assessment and Plan Plan Sepsis/ Acute cholecystitis -History of E. coli and Klebsiella bacteremia on this admission -Status post cholecystectomy by Dr. Hall 04/24 -repeat blood cultures -pending -Continue Zosyn- will dc Meropenem -ID following. CABG x 3 (THOMAS-->LAD, SVG-->OM, SVG-->PDA) 04/14 NSTEMI CAD Hypotension -Blood pressure improved with 3 L fluid resuscitation -received 1 unit PRBC for hemoglobin 7.7 as this is trending down and patient was hypotensive; CBC today pending. - EF 60-65%, trace to mild MR on KELLY this admission - continue lipitor ,ASA -Further per cardiology and CT surgery Afib - now in SR on telemetry -continue Metoprolol, Cardizem and Amiodarone -started on Eliquis -cardiology/CT surgery following. Hematuria S/P cystoscopy- 04/11 Hematuria - resolved -voiding well- gross clear urine -Urology input appreciated DM II - SSI. DVT GI prophylaxis -Teds SCDs -Pharmacological DVT prophylaxis per surgery and urology -Pepcid Discharge Planning: when stable and cleared by consutants. Progress Note: Quality VTE Deep Vein Thrombosis/Pulmonary Embolism Present on Admission: No
[2018-04-27] MEDS: Multivitamin/Minerals Therapeutic Tablet PO SCH (09:29)
[2018-04-27] MEDS: Amiodarone 200 MG Tablet PO SCH ×2 (09:29→21:31)
[2018-04-27] MEDS: Magnesium Oxide 400 MG Tablet PO SCH ×2 (09:29→21:33)
[2018-04-27] MEDS: Metoprolol Tartrate 25 MG Tablet PO SCH ×2 (09:29→21:33)
[2018-04-27] MEDS: Senna/Docusate Sodium 8.6/50 MG Tablet PO SCH ×2 (09:30→21:33)
[2018-04-27] MEDS: Polyethylene Glycol 3350 17 GM Packet PO SCH (09:30)
[2018-04-27] MEDS: Docusate Sodium 100 MG Capsule PO SCH ×2 (09:30→21:32)
--- NOTE | 2018-04-27 14:38 | P.PNCA ---
Subjective Interval history: In and out of AFib Feeling better Medications and Allergies Active Medications: Active Medications Acetaminophen (Tylenol) 650 mg PO Q4H PRN PRN Reason: Temp > 100.4 Last Admin: 03/27/18 09:04 Dose: 650 mg Hydrocodone Bitart/Acetaminophen ([place] 5/325) 1 tab PO Q3H PRN PRN Reason: PAIN SCALE 1 TO 5 Last Admin: 04/26/18 04:38 Dose: 1 tab Al Hydroxide/Mg Hydroxide (Milk Of Elier Liwilber) 30 ml PO Q12H PRN PRN Reason: Mild Constipation Last Admin: 04/17/18 14:37 Dose: 30 ml Albuterol (Duoneb Neb (Prn)) 1 ampul NEB Q2HR NEB PRN PRN Reason: WHEEZING Last Admin: 04/17/18 00:13 Dose: 1 ampul Amiodarone HCl (Cordarone) 200 mg PO DAILY [facility] Last Admin: 04/27/18 09:29 Dose: 200 mg Apixaban (Eliquis) 5 mg PO BID [facility] Last Admin: 04/21/18 20:03 Dose: 5 mg Aspirin (Aspirin Chew) 81 mg PO DAILY [facility] Last Admin: 04/27/18 09:29 Dose: 81 mg Atorvastatin Calcium (Lipitor) 20 mg PO DAILY [facility] Last Admin: 04/27/18 09:29 Dose: 20 mg Bisacodyl (Dulcolax Supp) 10 mg RECTAL DAILY PRN PRN Reason: SEVERE CONSITIPATION Last Admin: 04/23/18 03:26 Dose: 10 mg Bisacodyl (Dulcolax Ec) 10 mg PO ONCE ONE Last Admin: 03/30/18 17:35 Dose: 10 mg Dextrose (D50w Vial) 50 ml IV.PUSH UNSCH PRN PRN Reason: PER HYPOGLYCEMIA PROTOCOL Last Admin: 04/19/18 16:09 Dose: 50 ml Diltiazem HCl (Cardizem) 30 mg PO QID [facility] Last Admin: 04/15/18 13:21 Dose: Not Given Docusate Sodium (Colace) 100 mg PO BID [facility] Last Admin: 04/27/18 09:30 Dose: Not Given Glucagon (Glucagon Inj) 1 mg OTHER PRN PRN PRN Reason: for Hypoglycemia Protocol Sodium Chloride (Ns Inj) 500 mls @ 30 mls/hr IV.SIG .Q10H [facility] Last Admin: 04/14/18 05:34 Dose: Not Given Piperacillin/Tazobactam/Dextrose (Zosyn 3.375 Gm Premix) 50 mls @ 100 mls/hr IV.SIG Q6H [facility] Last Infusion: 04/27/18 10:53 Dose: Infused Sodium Chloride (Ns Inj) 1,000 mls @ 0 mls/hr IV.SIG BOLUS PRN PRN Reason: SEE LABEL COMMENTS Last Infusion: 04/26/18 07:42 Dose: Infused Sodium Chloride (Ns Inj) 1,000 mls @ 84 mls/hr IV.CONT .[id number] [facility] Last Admin: 04/27/18 09:26 Dose: Not Given Amiodarone HCl 450 mg/ (Dextrose) 250 mls @ 33.33 mls/hr IV.CONT TITRATE PRN; Protocol PRN Reason: Per Protocol Last Admin: 04/27/18 06:16 Dose: 0.5 mg/min, 16.66 mls/hr Insulin Aspart (Novolog Insulin Correctional Sugar Inj) 0 unit SQ ACHS AND 3AM [facility]; Protocol Last Admin: 04/27/18 12:24 Dose: 4 unit Lactulose (Lactulose Liq) 30 ml PO DAILY PRN PRN Reason: SEVERE CONSITIPATION Last Admin: 04/23/18 08:22 Dose: 30 ml Magnesium Oxide (Mag-Ox) 400 mg PO BID [facility] Last Admin: 04/27/18 09:29 Dose: 400 mg Metformin HCl (Glucophage) 1,000 mg PO BID [facility] Last Admin: 04/16/18 10:08 Dose: Not Given Metoprolol Tartrate (Lopressor) 25 mg PO BID [facility] Last Admin: 04/27/18 09:29 Dose: 25 mg Miscellaneous (Pill Splitter) 1 each OTHER UNSCH PRN PRN Reason: PILL SPIT Morphine Sulfate (Morphine Inj) 2 mg IV.PUSH Q3H PRN PRN Reason: BREAKTHROUGH PAIN Multivitamins/Minerals (Theragran-M) 1 tab PO DAILY [facility] Last Admin: 04/27/18 09:29 Dose: 1 tab Ondansetron HCl (Zofran Inj) 4 mg IV.PUSH Q6H PRN PRN Reason: NAUSEA OR VOMITING Last Admin: 04/25/18 05:13 Dose: 4 mg Pantoprazole Sodium (Protonix) 40 mg PO DAILY [facility] Last Admin: 04/27/18 09:29 Dose: 40 mg Polyethylene Glycol (Miralax) 17 gm PO DAILY [facility] Last Admin: 04/27/18 09:30 Dose: Not Given Prochlorperazine Edisylate (Compazine Inj) 10 mg IV.PUSH Q6H PRN PRN Reason: NAUSEA Last Admin: 04/24/18 16:07 Dose: 10 mg Senna/Docusate Sodium (Carlotta-Colace) 1 tab PO BID [facility] Last Admin: 04/27/18 09:30 Dose: Not Given Sennosides (Senokot) 17.2 mg PO Q12H PRN PRN Reason: Moderate Constipation Last Admin: 04/23/18 08:22 Dose: 17.2 mg Sodium Biphosphate/Sodium Phosphate (Fleets Enema (Adult)) 118 ml RECTAL UNSCH PRN PRN Reason: SEE LABEL COMMENTS Sodium Chloride (Ns Flush) 2 ml IV.FLUSH BID [facility] Last Admin: 04/27/18 09:30 Dose: 2 ml Sodium Chloride (Ns Flush) 2 ml IV.FLUSH PRN PRN PRN Reason: FLUSH AFTER USING IV ACCESS Allergies Allergy/AdvReac Type Severity Reaction Status Date / Time No Known Allergies Allergy Verified 03/19/18 10:28 Home Medications Medication Instructions Recorded Confirmed Type atorvastatin 20 mg PO DAILY 03/19/18 03/19/18 History liraglutide [Victoza 2-Sonido] 0.6 mg SUBCUT DAILY 03/19/18 03/19/18 History metformin 1,000 mg PO BID 03/19/18 03/19/18 History omeprazole-sodium bicarbonate 1 cap PO DAILY 03/19/18 03/19/18 History pantoprazole 20 mg PO DAILY 03/19/18 03/19/18 History Physical Exam Vital signs: Vital Signs 04/26/18 15:00 04/26/18 16:41 04/26/18 17:26 Temperature 98.1 F Pulse Rate 90 99 H Respiratory Rate 20 Blood Pressure 120/66 102/63 Pulse Oximetry 98 04/26/18 19:00 04/26/18 20:00 04/26/18 21:00 Temperature 98.5 F Pulse Rate 124 H 120 H 125 H Respiratory Rate 16 Blood Pressure 102/66 Pulse Oximetry 98 04/26/18 22:00 04/26/18 23:00 04/27/18 00:00 Temperature 98.1 F Pulse Rate 124 H 121 H 125 H Respiratory Rate 16 Blood Pressure 104/67 Pulse Oximetry 98 04/27/18 03:00 04/27/18 04:00 04/27/18 07:00 Temperature 98.4 F 98.3 F Pulse Rate 91 H 112 H 114 H Respiratory Rate 16 18 Blood Pressure 119/66 91/64 L Pulse Oximetry 98 97 04/27/18 08:00 04/27/18 10:00 04/27/18 11:00 Temperature 97.9 F Pulse Rate 110 H 89 74 Respiratory Rate 18 Blood Pressure 95/58 L Pulse Oximetry 97 97 04/27/18 12:00 04/27/18 13:00 Temperature Pulse Rate 78 75 Respiratory Rate Blood Pressure Pulse Oximetry Intake & Output 04/26/18 04/27/18 04/27/18 18:59 06:59 18:59 Intake Total 3440 / 3440 2127 / 2127 50 / 50 Output Total 880 / 880 320 / 320 Balance 2560 / 2560 1807 / 1807 50 / 50 Weight 105.5 kg Intake: IV 2800 / 2800 1647 / 1647 50 / 50 Cordarone Inj 450 MG In D5W Inj 250 / 250 241 ML @ 1 MG/MIN 33.33 mls/hr IV.CONT TITRATE PRN Rx#: [id number] NS Inj 1,000 ML @ 84 mls/hr IV. 1000 / 1000 CONT .[id number] [facility] Rx#:[id number] Cordarone Inj 150 MG In D5W Inj 97 / 97 97 ML @ 600 mls/hr IV.SIG ONCE ONE Rx#:[id number] Merrem Inj 2,000 MG In NS Inj 100 / 100 200 / 200 100 ML @ 200 mls/hr IV.SIG Q8H [facility] Rx#:[id number] Zosyn 3.375 GM Premix 50 ML @ 100 / 100 100 / 100 50 / 50 100 mls/hr IV.SIG Q6H [facility] Rx#: [id number] NS Inj 1,000 ML @ Wide Open IV. 1000 / 1000 SIG BOLUS PRN Rx#:[id number] NS Inj 250 ML @ 15 mls/hr IV. 100 / 100 SIG ONCE [facility] Rx#:[id number] Oral 240 / 240 480 / 480 Intake (Blood Product) Amt 400 / 400 Rbc As-3 Leukoreduced Unit 400 / 400 [id number] Output: Urine 850 / 850 300 / 300 Wound Drainage # 1 Right ROCKY Drain Other: Date of Last Bowel Movement 04/27/18 04/27/18 Narrative: GENERAL: NAD, AAOx3 SKIN: Warm and dry. HEAD: Atraumatic. Normocephalic. EYES: Pupils equal and round. No scleral icterus. No injection or drainage. ENT: No nasal bleeding or discharge. Mucous membranes pink and moist. NECK: Trachea midline. No JVD. CARDIOVASCULAR: Irregularly irregular RESPIRATORY: No accessory muscle use. Clear to auscultation. Breath sounds equal bilaterally. GASTROINTESTINAL: Abdomen soft, non-tender, nondistended. Hepatic and splenic margins not palpable. ROCKY drain in place MUSCULOSKELETAL: Extremities without clubbing, cyanosis, or edema. No obvious deformities. NEUROLOGICAL: Awake and alert. No obvious cranial nerve deficits. Motor grossly within normal limits. Five out of 5 muscle strength in the arms and legs. Normal speech. PSYCHIATRIC: Appropriate mood and affect; insight and judgment normal. - Urinary Catheter Management 3-way Urethral Cath placed during this visit: yes, but has since been removed by the nurse Reason for continuing: Decision to DC catheter Insertion date: 04/13/18 Insertion time: 00:00 Removal date: 04/19/18 Removal time: 10:30 Results 04/26/18 04:14 04/26/18 04:14 Cardiac Enzymes 04/26/18 Range/Units 04:14 AST 22 (15-37) U/L CBC 04/25/18 04/26/18 Range/Units 19:03 04:14 WBC 15.5 H (4.0-11.0) th/mm3 RBC 2.68 L (4.50-5.90) mil/mm3 Hgb 8.7 L 7.7 L (13.0-17.0) gm/dL Hct 26.5 L 24.2 L (39.0-51.0) % Plt Count 413 (150-450) th/mm3 Neut # (Auto) 13.4 H (1.8-7.7) th/mm3 Lymph # (Auto) 1.3 (1.0-4.8) th/mm3 [place] # (Auto) 0.8 (0.0-0.9) th/mm3 Eos # (Auto) 0.0 (0.0-0.4) th/mm3 Baso # (Auto) 0.1 (0.0-0.2) th/mm3 Comprehensive Metabolic Panel 04/26/18 Range/Units 04:14 Sodium 141 (136-145) meq/L Potassium 4.2 (3.5-5.1) meq/L Chloride 109 H (98-107) meq/L Carbon Dioxide 26.3 (21.0-32.0) meq/L BUN 12 (7-18) mg/dL Creatinine 0.74 (0.60-1.30) mg/dL Calcium 6.9 L* D (8.5-10.1) mg/dL AST 22 (15-37) U/L ALT 29 (12-78) U/L Alkaline Phosphatase 105 (45-117) U/L Total Protein 5.5 L D (6.4-8.2) g/dL Albumin 1.7 L (3.4-5.0) g/dL Intake and Output 04/26/18 04/27/18 04/27/18 22:59 06:59 14:59 Intake Total 2237 / 2237 1880 / 1880 50 / 50 Output Total 880 / 880 320 / 320 Balance 1357 / 1357 1560 / 1560 50 / 50 Intake: IV 1996 1400 / 1400 50 / 50 Cordarone Inj 450 MG In D5W Inj 250 / 250 241 ML @ 1 MG/MIN 33.33 mls/hr IV.CONT TITRATE PRN Rx#: [id number] NS Inj 1,000 ML @ 84 mls/hr IV. 1000 / 1000 CONT .[id number] [facility] Rx#:[id number] Cordarone Inj 150 MG In D5W Inj 97 / 97 97 ML @ 600 mls/hr IV.SIG ONCE ONE Rx#:[id number] Merrem Inj 2,000 MG In NS Inj 200 / 200 100 / 100 100 ML @ 200 mls/hr IV.SIG Q8H [facility] Rx#:[id number] Zosyn 3.375 GM Premix 50 ML @ 100 / 100 50 / 50 50 / 50 100 mls/hr IV.SIG Q6H [facility] Rx#: [id number] NS Inj 250 ML @ 15 mls/hr IV. 100 / 100 SIG ONCE [facility] Rx#:[id number] Oral 240 / 240 480 / 480 Output: Urine 850 / 850 300 / 300 Wound Drainage # 1 Right ROCKY Drain Other: Date of Last Bowel Movement 04/27/18 04/27/18 Weight 105.5 kg - Imaging and Cardiology Imaging: Impressions Chest X-Ray 04/25/18 00:00 CONCLUSION: Cardiomegaly with bibasilar airspace disease and probable pleural effusions. Assessment and Plan - Assessment (1) NSTEMI (non-ST elevated myocardial infarction) Code(s): I21.4 - Non-ST elevation (NSTEMI) myocardial infarction Status: Acute (2) Afib Code(s): I48.91 - Unspecified atrial fibrillation Status: Acute (3) SIRS (systemic inflammatory response syndrome) Code(s): R65.10 - Systemic inflammatory response syndrome (SIRS) of non- infectious origin without acute organ dysfunction Status: Acute (4) Intractable abdominal pain Code(s): R10.9 - Unspecified abdominal pain Status: Acute - Plan 1) Abdominal pain/nausea/emesis Found to have cholecystitis s/p cholecystectomy 2) NSTEMI Found to have multivessel CAD CABG x3 THOMAS to LAD SVG to OM SVG to PDA 3) Afib New onset 04/15/18 Cardizem stopped due to being on vasopressor, con't Amiodarone 04/16/18 Converted back to AFib overnight, increase Metoprolol, may need to be started back on Cardizem Will need to consider anticoagulation when felt he can be restarted after cholecystectomy Will wait for Hgb to stabilize and general surgery to give the OK Once BP stable, need to restart AV mya blocking agents Agree with extra Amiodarone today to try to help 4) Bacteremia KELLY negative for vegetation, no signs of endocarditis 5) Hematuria ASA restarted 6) MRCP showing multiple stones in the common bile duct
--- NOTE | 2018-04-27 14:48 | P.PNID ---
Subjective Remarks: ID coverage for Dr. Anastacio Sanchez. Reconsulted because patient has leukocytosis and hypotension. status post lap cholecystectomy for acute gangrenous cholecystitis on 2017. Patient was transferred to intensive care unit because of hypotension. He received fluid boluses. His blood pressure improved. Patient states he feels much better today. He is awake and alert. Sitting up in recliner chair. No fever, chills, nausea or vomiting. Mr. Bridges is a 67-year-old male patient who presented to the emergency room on March 19, 2018. Patient initially reported nausea vomiting as well as abdominal pain on admission. Of note patient's past medical history significant for gastric bypass surgery many years back. Patient also has a history of type 2 diabetes, GERD, hyperlipidemia as well as morbid obesity. Post CABG on 04/14/2018. Antibiotics: Piperacillin/tazobactam Lines: Lines ok Past Medical History: reviewed Allergies/Adverse Reactions: Allergies No Known Allergies Allergy (Verified 03/19/18 10:28) Objective Vital Signs 04/26/18 15:00 04/26/18 16:41 04/26/18 17:26 Temperature 98.1 F Pulse Rate 90 99 H Respiratory Rate 20 Blood Pressure 120/66 102/63 Pulse Oximetry 98 04/26/18 19:00 04/26/18 20:00 04/26/18 21:00 Temperature 98.5 F Pulse Rate 124 H 120 H 125 H Respiratory Rate 16 Blood Pressure 102/66 Pulse Oximetry 98 04/26/18 22:00 04/26/18 23:00 04/27/18 00:00 Temperature 98.1 F Pulse Rate 124 H 121 H 125 H Respiratory Rate 16 Blood Pressure 104/67 Pulse Oximetry 98 04/27/18 03:00 04/27/18 04:00 04/27/18 07:00 Temperature 98.4 F 98.3 F Pulse Rate 91 H 112 H 114 H Respiratory Rate 16 18 Blood Pressure 119/66 91/64 L Pulse Oximetry 98 97 04/27/18 08:00 04/27/18 10:00 04/27/18 11:00 Temperature 97.9 F Pulse Rate 110 H 89 74 Respiratory Rate 18 Blood Pressure 95/58 L Pulse Oximetry 97 97 04/27/18 12:00 04/27/18 13:00 Temperature Pulse Rate 78 75 Respiratory Rate Blood Pressure Pulse Oximetry Intake & Output 12/12/18 12/13/18 12/13/18 18:59 06:59 18:59 Intake Total 3440 / 3440 2127 / 2127 50 / 50 Output Total 880 / 880 320 / 320 Balance 2560 / 2560 1807 / 1807 50 / 50 Weight 105.5 kg Intake: IV 2800 / 2800 1647 / 1647 50 / 50 Cordarone Inj 450 MG In D5W Inj 250 / 250 241 ML @ 1 MG/MIN 33.33 mls/hr IV.CONT TITRATE PRN Rx#: [id number] NS Inj 1,000 ML @ 84 mls/hr IV. 1000 / 1000 CONT .[id number] [facility] Rx#:[id number] Cordarone Inj 150 MG In D5W Inj 97 / 97 97 ML @ 600 mls/hr IV.SIG ONCE ONE Rx#:[id number] Merrem Inj 2,000 MG In NS Inj 100 / 100 200 / 200 100 ML @ 200 mls/hr IV.SIG Q8H [facility] Rx#:[id number] Zosyn 3.375 GM Premix 50 ML @ 100 / 100 100 / 100 50 / 50 100 mls/hr IV.SIG Q6H [facility] Rx#: [id number] NS Inj 1,000 ML @ Wide Open IV. 1000 / 1000 SIG BOLUS PRN Rx#:[id number] NS Inj 250 ML @ 15 mls/hr IV. 100 / 100 SIG ONCE [facility] Rx#:[id number] Oral 240 / 240 480 / 480 Intake (Blood Product) Amt 400 / 400 Rbc As-3 Leukoreduced Unit 400 / 400 [id number] Output: Urine 850 / 850 300 / 300 Wound Drainage 30 / 30 20 / 20 # 1 Right ROCKY Drain 30 30 20 / 20 Other: Date of Last Bowel Movement 04/27/18 04/27/18 04/26/18 00:55 Blood - Peripheral Aerobic Blood Culture - Preliminary No growth in 1 day 04/26/18 00:55 Blood - Peripheral Anaerobic Blood Culture - Preliminary No growth in 1 day 04/26/18 01:00 Blood - Peripheral Aerobic Blood Culture - Preliminary No growth in 1 day 04/26/18 01:00 Blood - Peripheral Anaerobic Blood Culture - Preliminary No growth in 1 day Lab - Hematology Results 04/25/18 04/26/18 19:03 04:14 WBC 15.5 H RBC 2.68 L Hgb 8.7 L 7.7 L Hct 26.5 L 24.2 L MCV 90.2 MCH 28.6 MCHC 31.7 L RDW 16.8 Plt Count 413 MPV 7.5 Neut % (Auto) 86.1 H Lymph % (Auto) 8.2 L [place] % (Auto) 5.3 Eos % (Auto) 0.1 Baso % (Auto) 0.3 Neut # (Auto) 13.4 H Lymph # (Auto) 1.3 [place] # (Auto) 0.8 Eos # (Auto) 0.0 Baso # (Auto) 0.1 WBC Differential . Differential Comment Auto diff final Lab - Chemistry Results 04/25/18 04/25/18 04/26/18 17:18 22:31 04:14 Sodium 141 Potassium 4.2 Chloride 109 H Carbon Dioxide 26.3 Anion Gap 6 BUN 12 Creatinine 0.74 Estimated GFR Greater than 89 POC Glucose 272 H 139 H Random Glucose 149 H Calcium 6.9 L* D Calcium Adj for Albumin 8.7 Total Bilirubin 0.4 AST 22 ALT 29 Alkaline Phosphatase 105 Total Protein 5.5 L D Albumin 1.7 L 04/26/18 04/26/18 04/26/18 04:23 08:02 12:29 Sodium Potassium Chloride Carbon Dioxide Anion Gap BUN Creatinine Estimated GFR POC Glucose 214 H 105 162 H Random Glucose Calcium Calcium Adj for Albumin Total Bilirubin AST ALT Alkaline Phosphatase Total Protein Albumin 04/26/18 04/26/18 04/27/18 16:40 20:32 03:39 Sodium Potassium Chloride Carbon Dioxide Anion Gap BUN Creatinine Estimated GFR POC Glucose 221 H 308 H 148 H Random Glucose Calcium Calcium Adj for Albumin Total Bilirubin AST ALT Alkaline Phosphatase Total Protein Albumin 04/27/18 04/27/18 07:39 11:24 Sodium Potassium Chloride Carbon Dioxide Anion Gap BUN Creatinine Estimated GFR POC Glucose 167 H 211 H Random Glucose Calcium Calcium Adj for Albumin Total Bilirubin AST ALT Alkaline Phosphatase Total Protein Albumin Imaging: ITS Impressions Abdomen/Pelvis CT 03/19/18 10:38 CONCLUSION: 1. Short segmental concentric wall thickening is identified in the distal descending colon. Colon malignancy needs to be excluded. 2. Calcified gallstones with moderate distention of the gallbladder. 3. No other significant abnormality. Chest CTA 03/19/18 13:37 CONCLUSION: 1. No evidence of acute pulmonary embolism. 2. Mild subpleural airspace disease and reticulations which may be chronic. 3. No evidence of segmental or lobar lung consolidation. Abdomen/Pelvis CTA 03/22/18 00:00 CONCLUSION: 1. Prominent gallbladder distention and surrounding inflammatory changes consistent with cholecystitis 2. No acute vascular findings in the abdomen or pelvis. Carotid Doppler Study 03/25/18 12:49 CONCLUSION: 1. Right Internal Carotid Artery: No significant plaque or narrowing. 2. Left Internal Carotid Artery: No significant plaque or narrowing. Lower Extremity Ultrasound 03/25/18 12:49 CONCLUSION: Bilateral greater saphenous vein measurements as above. No acute abnormalities are demonstrated. Venous Doppler Study 03/25/18 12:49 CONCLUSION: Negative study. No venous thrombosis of either lower extremity. Percutaneous Cholangiogram 03/31/18 00:00 CONCLUSION: Uncomplicated percutaneous cholecystostomy as above. Cholangiopancreatography MRI 04/03/18 17:20 CONCLUSION: 1. Numerous filling defects within the central intrahepatic biliary ducts, common hepatic ducts, and common bile ducts. These represent stones and/or thrombus/hemorrhage. The linear defects are more likely related to hemorrhage. 2. Dilatation of the gallbladder with thickened gallbladder wall and a cholecystostomy tube in place. There is heterogeneous material within the gallbladder. Abdomen/Bladder Ultrasound 04/07/18 00:00 CONCLUSION: 1. No findings to account for the patient's hematuria. 2. Nonvisualization of the left kidney. 3. No evidence of hydronephrosis or nephrolithiasis in the right kidney. Abdomen X-Ray 04/21/18 00:00 CONCLUSION: Nonobstructive bowel gas pattern. Moderate to large stool throughout the colon. Chest X-Ray 04/25/18 00:00 CONCLUSION: Cardiomegaly with bibasilar airspace disease and probable pleural effusions. Physical Exam: GENERAL: Alert and oriented. No acute distress. HEENT: Head atraumatic. Pupils reactive to light. Extraocular movements intact. Pale sclera. Oropharynx mucosa slightly dry. NECK: Supple without adenopathy. No swelling. LUNGS: Decreased breath sounds. HEART: S1 and S2 no murmurs or rubs or gallops. ABDOMEN: Bowel sounds diminished, soft, no tenderness. No masses palpable. Post laparoscopic cholecystectomy. ROCKY drain in place. Serous sanguinous drainage clear. No evidence of cellulitis. EXTREMITIES: No clubbing or cyanosis. Trace edema at the lower extremities SKIN: No rash NEUROLOGIC: Nonfocal. PSYCH: Calm and cooperative. Lines without evidence of infection. Assessment and Plan - Plan Sepsis present on admission. New episode of hypotension and white blood cell count increased. Not clear whether this is due to sepsis. Acute gangrenous cholecystitis. Patient is post lap cholecystectomy. Treated for gram-negative bacteremia E. coli and Klebsiella pneumonia. Acute cholecystitis s/p Cholecystostomy tube placement. Leukocytosis. White blood cell count elevated. Increase from previous day however. Non-ST elevation CA. Patient underwent CABG. Recommendations: Continue piperacillin/tazobactam. Monitor the blood cultures. Monitor the white blood cell count. You have the white blood cell count continues to improve we may be able to switch to p.o. antibiotic. Monitor temperature Monitor for other evidence of source for infection.
--- NOTE | 2018-04-27 15:16 | P.PNGS ---
Subjective Interval history: Up to the chair Feeling better today Tolerating small meals Physical Exam Vital signs: Vital Signs 04/26/18 16:41 04/26/18 17:26 04/26/18 19:00 Temperature 98.1 F 98.5 F Pulse Rate 99 H 124 H Respiratory Rate 20 16 Blood Pressure 120/66 102/63 102/66 Pulse Oximetry 98 98 04/26/18 20:00 04/26/18 21:00 04/26/18 22:00 Temperature Pulse Rate 120 H 125 H 124 H Respiratory Rate Blood Pressure Pulse Oximetry 04/26/18 23:00 04/27/18 00:00 04/27/18 03:00 Temperature 98.1 F 98.4 F Pulse Rate 121 H 125 H 91 H Respiratory Rate 16 16 Blood Pressure 104/67 119/66 Pulse Oximetry 98 98 04/27/18 04:00 04/27/18 07:00 04/27/18 08:00 Temperature 98.3 F Pulse Rate 112 H 114 H 110 H Respiratory Rate 18 Blood Pressure 91/64 L Pulse Oximetry 97 97 04/27/18 10:00 04/27/18 11:00 04/27/18 12:00 Temperature 97.9 F Pulse Rate 89 74 78 Respiratory Rate 18 Blood Pressure 95/58 L Pulse Oximetry 97 04/27/18 13:00 Temperature Pulse Rate 75 Respiratory Rate Blood Pressure Pulse Oximetry Intake & Output 04/26/18 04/27/18 04/27/18 18:59 06:59 18:59 Intake Total 3440 / 3440 2127 / 2127 50 / 50 Output Total 880 / 880 320 / 320 Balance 2560 / 2560 1807 / 1807 50 / 50 Weight 105.5 kg Intake: IV 2800 / 2800 1647 / 1647 50 / 50 Cordarone Inj 450 MG In D5W Inj 250 / 250 241 ML @ 1 MG/MIN 33.33 mls/hr IV.CONT TITRATE PRN Rx#: [id number] NS Inj 1,000 ML @ 84 mls/hr IV. 1000 / 1000 CONT .[id number] THOMAS Rx#:[id number] Cordarone Inj 150 MG In D5W Inj 97 / 97 97 ML @ 600 mls/hr IV.SIG ONCE ONE Rx#:[id number] Merrem Inj 2,000 MG In NS Inj 100 / 100 200 / 200 100 ML @ 200 mls/hr IV.SIG Q8H THOMAS Rx#:[id number] Zosyn 3.375 GM Premix 50 ML @ 100 / 100 100 / 100 50 / 50 100 mls/hr IV.SIG Q6H THOMAS Rx#: [id number] NS Inj 1,000 ML @ Wide Open IV. 1000 / 1000 SIG BOLUS PRN Rx#:[id number] NS Inj 250 ML @ 15 mls/hr IV. 100 / 100 SIG ONCE THOMAS Rx#:[id number] Oral 240 / 240 480 / 480 Intake (Blood Product) Amt 400 / 400 Rbc As-3 Leukoreduced Unit 400 / 400 [id number] Output: Urine 850 / 850 300 / 300 Wound Drainage # 1 Right ROCKY Drain Other: Date of Last Bowel Movement 04/27/18 04/27/18 Narrative: Alert and awake Abd: soft; lap sites c/d/i; umbilicus with dressing in place and iodoform; ROCKY with thin sanguinous drainage - Urinary Catheter Management 3-way Urethral Cath placed during this visit: yes, but has since been removed by the nurse Reason for continuing: Decision to DC catheter Insertion date: 04/13/18 Insertion time: 00:00 Removal date: 04/19/18 Removal time: 10:30 Results - Labs 04/26/18 04:14 04/26/18 04:14 Laboratory Results - last 24 hr 04/26/18 04/26/18 04/27/18 16:40 20:32 03:39 POC Glucose 221 H 308 H 148 H 04/27/18 04/27/18 07:39 11:24 POC Glucose 167 H 211 H - Imaging Imaging: ITS Impressions Abdomen/Pelvis CT 03/19/18 10:38 CONCLUSION: 1. Short segmental concentric wall thickening is identified in the distal descending colon. Colon malignancy needs to be excluded. 2. Calcified gallstones with moderate distention of the gallbladder. 3. No other significant abnormality. Chest CTA 03/19/18 13:37 CONCLUSION: 1. No evidence of acute pulmonary embolism. 2. Mild subpleural airspace disease and reticulations which may be chronic. 3. No evidence of segmental or lobar lung consolidation. Abdomen/Pelvis CTA 03/22/18 00:00 CONCLUSION: 1. Prominent gallbladder distention and surrounding inflammatory changes consistent with cholecystitis 2. No acute vascular findings in the abdomen or pelvis. Carotid Doppler Study 03/25/18 12:49 CONCLUSION: 1. Right Internal Carotid Artery: No significant plaque or narrowing. 2. Left Internal Carotid Artery: No significant plaque or narrowing. Lower Extremity Ultrasound 03/25/18 12:49 CONCLUSION: Bilateral greater saphenous vein measurements as above. No acute abnormalities are demonstrated. Venous Doppler Study 03/25/18 12:49 CONCLUSION: Negative study. No venous thrombosis of either lower extremity. Percutaneous Cholangiogram 03/31/18 00:00 CONCLUSION: Uncomplicated percutaneous cholecystostomy as above. Cholangiopancreatography MRI 04/03/18 17:20 CONCLUSION: 1. Numerous filling defects within the central intrahepatic biliary ducts, common hepatic ducts, and common bile ducts. These represent stones and/or thrombus/hemorrhage. The linear defects are more likely related to hemorrhage. 2. Dilatation of the gallbladder with thickened gallbladder wall and a cholecystostomy tube in place. There is heterogeneous material within the gallbladder. Abdomen/Bladder Ultrasound 04/07/18 00:00 CONCLUSION: 1. No findings to account for the patient's hematuria. 2. Nonvisualization of the left kidney. 3. No evidence of hydronephrosis or nephrolithiasis in the right kidney. Abdomen X-Ray 04/21/18 00:00 CONCLUSION: Nonobstructive bowel gas pattern. Moderate to large stool throughout the colon. Chest X-Ray 04/25/18 00:00 CONCLUSION: Cardiomegaly with bibasilar airspace disease and probable pleural effusions. Assessment and Plan - Assessment (1) Intractable abdominal pain Code(s): R10.9 - Unspecified abdominal pain Status: Acute (2) NSTEMI (non-ST elevated myocardial infarction) Code(s): I21.4 - Non-ST elevation (NSTEMI) myocardial infarction Status: Acute (3) Afib Code(s): I48.91 - Unspecified atrial fibrillation Status: Acute (4) Cholecystitis Code(s): K81.9 - Cholecystitis, unspecified Status: Acute Plan: 67 year old male with afib RVR; s/p cardiac cath; cholecystics -S/p CABG -POD3 lap burt with drain placement -BP better improved; SBP 100s -Awaiting today's labs -s/p 1 unit PRBCs transfusion -Okay for regular diet -Continue dressing changes daily and PRN
[2018-04-27 15:49] LABS: Hematocrit 27.1 % (39.0-51.0); Mean Corpuscular HGB Conc 33.3 % (32.0-36.0); Mean Corpuscular Hemoglobin 29.6 pg (27.0-34.0); Mean Platelet Volume 7.2 fL (7.0-11.0); Platelet Count 414 th/mm3 (150-450); Red Blood Count 3.04 mil/mm3 (4.50-5.90); Red Cell Distribution Width 16.5 % (11.6-17.2); White Blood Count 14.9 th/mm3 (4.0-11.0)
[2018-04-27 16:31] LABS: Alanine Aminotransferase 29 U/L (12-78); Albumin 1.7 g/dL (3.4-5.0); Alkaline Phosphatase 114 U/L (45-117); Anion Gap 7 meq/L (5-15); Aspartate Aminotransferase 33 U/L (15-37); Blood Urea Nitrogen 10 mg/dL (7-18); Calcium 7.4 mg/dL (8.5-10.1); Carbon Dioxide 26.9 meq/L (21.0-32.0); Chloride 106 meq/L (98-107); Glomerular Filtration Rate Greater Than 89 mL/min (>89); Glucose,Random 219 mg/dL (74-106); Magnesium 2.1 mg/dL (1.5-2.5); Potassium 3.8 meq/L (3.5-5.1); Sodium 140 meq/L (136-145); Total Protein 5.8 g/dL (6.4-8.2)
[2018-04-28] MEDS: Piperacil/Tazo 3.375 GM Premix 50 ML IV.SIG SCH ×4 (03:17→20:06)
[2018-04-28] MEDS: Insulin NovoLOG Aspart Correctional Sugar Inj SQ SCH ×5 (03:23→22:57)
[2018-04-28] MEDS: Multivitamin/Minerals Therapeutic Tablet PO SCH (08:29)
[2018-04-28] MEDS: Sod Chloride 0.9% Inj 1,000 ML IV.CONT SCH ×2 (08:29→20:41)
[2018-04-28] MEDS: Docusate Sodium 100 MG Capsule PO SCH ×2 (08:30→20:08)
[2018-04-28] MEDS: Amiodarone 200 MG Tablet PO SCH ×2 (08:30→20:06)
[2018-04-28] MEDS: Polyethylene Glycol 3350 17 GM Packet PO SCH (08:30)
[2018-04-28] MEDS: Senna/Docusate Sodium 8.6/50 MG Tablet PO SCH ×2 (08:30→23:57)
[2018-04-28] MEDS: Metoprolol Tartrate 25 MG Tablet PO SCH ×2 (08:30→20:06)
[2018-04-28] MEDS: Magnesium Oxide 400 MG Tablet PO SCH ×2 (08:30→20:06)
--- NOTE | 2018-04-28 08:35 | P.PNCV ---
- Note Subjective/Hospital Course: 67-year-old male who presented to [facility] 03/19/18 due to nausea, vomiting and abdominal pain. He states that he was awakened at 6 a.m. with left -sided flank pain and left mid back pain radiating to the left lower quadrant. He developed nausea and vomiting secondary to the pain. he was incidentally found to have cholecystitis, perc burt tube was placed , Trop was + underwent cardiac cath by Dr Pérez : mid LAD 80%, Left Circ 70 % lesion, RCA 100% occluded in the mid portion with [id number] and right-to- right collaterals supplying the distal portion. Blood cultures grew klebsiella pneumoniae and E coli , followed by ID and recommended to at least complete one week course of IV antibiotics prior to surgery PAST MEDICAL HISTORY: Diabetes, GERD, Hyperlipidemia, morbid obesity with BMI 40, History of gastric bypass. 03/27 pt is pain free at this time , has perc burt drain US of lower ext neg for DVT, Carotid US no stenosis continues on IV antibiotics per ID : VIVIENNE cefepime IV Ceftriaxone IV once a day (stop date: 04/03/2018) after which we will repeat BCX on 04/04/18. If these repeat bcx are negative at 48 hrs and patient clinically doing well will clear him from CABG. VIVIENNE Flagyl consult PT 03/28 pain free will follow / schedule for surgery next week when cleared by ID 03/29 still has some mild right flank pain burt drain in place no chest pain 04/03 c/o of nausea and vomiting since last night , also some abdominal pain for repeat CT abdomen today also repeat Blood cultures pending 04/05 still complaining of nausea and vomiting burt drain in place 04/10 events noted over weekend blood culture neg 04/03 , off all antibiotics still has burt drain , nursing flushing periodically per Uro / will perform bedside cystoscopy at bedside this week / urine has cleared since Heparin vivienne General surgery / will see after 3-4 weeks after CABG to al for cholecystectomy will discuss timing for surgery with Dr Carlin no further complaints of nausea / vomiting 04/11 resting comfortably await bedside cystoscopy/ and clearance from urology then plan for timing of CABG, needs to be placed back on ASA 04/12 cleared by Urology for surgery " s/p bedside [place] cystoscopy did not show any abnormalities within the bladder there were no bladder tumors identified. Retroflex examination of the bladder neck showed an area of friability at the prostate which was most likely the area that was bleeding at the time. per Urology: recommend placement of 3 way scales prior to surgery pt ambulating with walker, no nausea scheduled for surgery on tuesday will need 3 way cath placed by urology on 04/[address] catheter placed by Urology stable for surgery in am 04/14 SURGICAL PROCEDURE 1. Urgent Off-pump Coronary Artery Bypass Grafting x 3 with Left Internal Mammary Artery (THOMAS) to Left Anterior Descending (LAD), reverse saphenous vein graft to obtuse Marginal branch of the left Circumflex artery, reverse saphenous vein graft to the posterior Descending branch of the right Coronary artery 2. Left leg Endoscopic Vein [place] 3. Ultrasound-guided dissection of the LAD 4. Intraoperative Vein Mapping. 04/15 Doing well clinically Weaning Jarvis-Synephrine drip as tolerated Awaiting LFT results Maintain in ICU Continue chest tube to drainage 04/16 Clinically and hematocrit stable New onset atrial fibrillation last night. Presently in normal sinus rhythm on amiodarone drip Increase beta-janeth to 25 twice daily Okay to transfer to [facility] later today 04/17 converted to NSR transition to po amiodarone leave chest tubes in today / clots / bloody drainage OOB ambulate, gentle diuresis 04/18 converted to NSR, continue amiodarone po f/u labs in am if goes back into afib, will need NOAC chest tube dc without difficulty f/u CXR in am PT/OT eval for transfer to [place] next 24-48hrs 04/19 discharge summary completed had issues with low blood sugars levemir dc insulin sliding scale dosing decreased 04/20 BGM's improved discussed with Dr Pérez will start eliquis, dc plavix stable to transfer to rehab today 04/21 pt having reoccurring nausea and vomiting with some abdominal discomfort does not feel as well today Dr Hall notified , ok to hold eliquis 48hrs prior to any procedure ok for Lap burt per Dr Carlin 04/22/18 No c/o presently. preop for Tuesday for CCx 04/23/18 No complaints today. Preop for CCX 04/24 for Lap burt today resume eliquis when ok with General surgery eval for [place]/ SNF when cleared by general surgery 04/28 Clinically better today Had episode of atrial fibrillation. Treated with IV amiodarone. Presently in normal sinus rhythm on p.o. amiodarone Will need anticoagulation following stabilization of his hemoglobin levels. Objective: Vital Signs - 24 hr 04/27/18 10:00 04/27/18 11:00 04/27/18 12:00 Temperature 97.9 F Pulse Rate 89 74 78 Respiratory Rate 18 Blood Pressure 95/58 L Pulse Oximetry 97 04/27/18 13:00 04/27/18 14:00 04/27/18 15:00 Temperature 97.9 F Pulse Rate 75 79 77 Respiratory Rate 18 Blood Pressure 120/60 Pulse Oximetry 98 04/27/18 16:00 04/27/18 17:00 04/27/18 18:00 Temperature Pulse Rate 79 80 83 Respiratory Rate Blood Pressure Pulse Oximetry 04/27/18 19:00 04/27/18 20:00 04/27/18 20:47 Temperature 99.2 F Pulse Rate 81 82 Respiratory Rate 18 Blood Pressure 130/72 Pulse Oximetry 97 97 04/27/18 21:00 04/27/18 22:00 04/27/18 23:00 Temperature 98.3 F Pulse Rate 80 75 72 Respiratory Rate 18 Blood Pressure 97/58 L Pulse Oximetry 96 04/28/18 00:00 04/28/18 01:00 04/28/18 02:00 Temperature Pulse Rate 79 77 79 Respiratory Rate Blood Pressure Pulse Oximetry 04/28/18 03:00 04/28/18 04:00 04/28/18 05:00 Temperature 98.3 F Pulse Rate 80 81 81 Respiratory Rate 18 Blood Pressure 114/57 L Pulse Oximetry 94 L 04/28/18 06:00 Temperature Pulse Rate 82 Respiratory Rate Blood Pressure Pulse Oximetry Labs: Laboratory Results - last 12 hr 04/27/18 04/28/18 04/28/18 21:35 03:23 07:48 POC Glucose 269 H 124 H 145 H Result Diagrams: 04/27/18 15:40 04/27/18 15:40 - Plan (1) Coronary artery disease involving [place] coronary artery Plan: ASA, statin, BB , amiodarone for lap burt today pulm toileting nebs, ezpap , acapella OOB/ PT (3) Afib Plan: in NSR > afib transition to po amiodarone (4) Cholecystitis Plan: general surgery : for Lap burt today
--- NOTE | 2018-04-28 14:56 | P.PNGS ---
Subjective Interval history: Up to chair Still feeling "blah" Eating small amounts Physical Exam Vital signs: Vital Signs 04/27/18 15:00 04/27/18 16:00 04/27/18 17:00 Temperature 97.9 F Pulse Rate 77 79 80 Respiratory Rate 18 Blood Pressure 120/60 Pulse Oximetry 98 04/27/18 18:00 04/27/18 19:00 04/27/18 20:00 Temperature 99.2 F Pulse Rate 83 81 82 Respiratory Rate 18 Blood Pressure 130/72 Pulse Oximetry 97 04/27/18 20:47 04/27/18 21:00 04/27/18 22:00 Temperature Pulse Rate 80 75 Respiratory Rate Blood Pressure Pulse Oximetry 97 04/27/18 23:00 04/28/18 00:00 04/28/18 01:00 Temperature 98.3 F Pulse Rate 72 79 77 Respiratory Rate 18 Blood Pressure 97/58 L Pulse Oximetry 96 04/28/18 02:00 04/28/18 03:00 04/28/18 04:00 Temperature 98.3 F Pulse Rate 79 80 81 Respiratory Rate 18 Blood Pressure 114/57 L Pulse Oximetry 94 L 04/28/18 05:00 04/28/18 06:00 04/28/18 07:00 Temperature 98.3 F Pulse Rate 81 82 84 Respiratory Rate 18 Blood Pressure 103/59 L Pulse Oximetry 94 L Intake & Output 04/27/18 04/28/18 04/28/18 18:59 06:59 18:59 Intake Total 1940 / 1940 1460 / 1460 300 / 300 Output Total 480 / 480 200 / 200 Balance 1460 / 1460 1260 / 1260 300 / 300 Weight 105 kg Intake: IV 1100 / 1100 1100 / 1100 300 / 300 NS Inj 1,000 ML @ 84 mls/hr IV. 1000 / 1000 1000 / 1000 CONT .[id number] THOMAS Rx#:[id number] Zosyn 3.375 GM Premix 50 ML @ 100 / 100 100 / 100 50 / 50 100 mls/hr IV.SIG Q6H THOMAS Rx#: [id number] Oral 840 / 840 360 / 360 Output: Urine 450 / 450 175 / 175 Wound Drainage 25 / 25 # 1 Right ROCKY Drain Other: # Voids 2 2 Date of Last Bowel Movement 04/27/18 04/28/18 # Bowel Movements 1 2 Narrative: ALert and awake Abd: soft; umbilicus dressing in place. ROCKY drain with serosanguineous drainage - Urinary Catheter Management 3-way Urethral Cath placed during this visit: yes, but has since been removed by the nurse Reason for continuing: Decision to DC catheter Insertion date: 04/13/18 Insertion time: 00:00 Removal date: 04/19/18 Removal time: 10:30 Results - Labs 04/27/18 15:40 04/27/18 15:40 Laboratory Results - last 24 hr 04/27/18 04/27/18 04/27/18 15:40 15:40 21:35 WBC 14.9 H RBC 3.04 L Hgb 9.0 L Hct 27.1 L MCV 89.0 MCH 29.6 MCHC 33.3 RDW 16.5 Plt Count 414 MPV 7.2 Sodium 140 Potassium 3.8 Chloride 106 Carbon Dioxide 26.9 Anion Gap 7 BUN 10 Creatinine 0.78 Estimated GFR Greater than 89 POC Glucose 269 H Random Glucose 219 H Calcium 7.4 L* Calcium Adj for Albumin 9.2 Magnesium 2.1 Total Bilirubin 0.5 AST 33 ALT 29 Alkaline Phosphatase 114 Total Protein 5.8 L Albumin 1.7 L 04/28/18 04/28/18 04/28/18 03:23 07:48 11:50 WBC RBC Hgb Hct MCV MCH MCHC RDW Plt Count MPV Sodium Potassium Chloride Carbon Dioxide Anion Gap BUN Creatinine Estimated GFR POC Glucose 124 H 145 H 227 H Random Glucose Calcium Calcium Adj for Albumin Magnesium Total Bilirubin AST ALT Alkaline Phosphatase Total Protein Albumin - Imaging Imaging: ITS Impressions Abdomen/Pelvis CT 03/19/18 10:38 CONCLUSION: 1. Short segmental concentric wall thickening is identified in the distal descending colon. Colon malignancy needs to be excluded. 2. Calcified gallstones with moderate distention of the gallbladder. 3. No other significant abnormality. Chest CTA 03/19/18 13:37 CONCLUSION: 1. No evidence of acute pulmonary embolism. 2. Mild subpleural airspace disease and reticulations which may be chronic. 3. No evidence of segmental or lobar lung consolidation. Abdomen/Pelvis CTA 03/22/18 00:00 CONCLUSION: 1. Prominent gallbladder distention and surrounding inflammatory changes consistent with cholecystitis 2. No acute vascular findings in the abdomen or pelvis. Carotid Doppler Study 03/25/18 12:49 CONCLUSION: 1. Right Internal Carotid Artery: No significant plaque or narrowing. 2. Left Internal Carotid Artery: No significant plaque or narrowing. Lower Extremity Ultrasound 03/25/18 12:49 CONCLUSION: Bilateral greater saphenous vein measurements as above. No acute abnormalities are demonstrated. Venous Doppler Study 03/25/18 12:49 CONCLUSION: Negative study. No venous thrombosis of either lower extremity. Percutaneous Cholangiogram 03/31/18 00:00 CONCLUSION: Uncomplicated percutaneous cholecystostomy as above. Cholangiopancreatography MRI 04/03/18 17:20 CONCLUSION: 1. Numerous filling defects within the central intrahepatic biliary ducts, common hepatic ducts, and common bile ducts. These represent stones and/or thrombus/hemorrhage. The linear defects are more likely related to hemorrhage. 2. Dilatation of the gallbladder with thickened gallbladder wall and a cholecystostomy tube in place. There is heterogeneous material within the gallbladder. Abdomen/Bladder Ultrasound 04/07/18 00:00 CONCLUSION: 1. No findings to account for the patient's hematuria. 2. Nonvisualization of the left kidney. 3. No evidence of hydronephrosis or nephrolithiasis in the right kidney. Abdomen X-Ray 04/21/18 00:00 CONCLUSION: Nonobstructive bowel gas pattern. Moderate to large stool throughout the colon. Chest X-Ray 04/25/18 00:00 CONCLUSION: Cardiomegaly with bibasilar airspace disease and probable pleural effusions. Assessment and Plan - Assessment (1) Intractable abdominal pain Code(s): R10.9 - Unspecified abdominal pain Status: Acute (2) NSTEMI (non-ST elevated myocardial infarction) Code(s): I21.4 - Non-ST elevation (NSTEMI) myocardial infarction Status: Acute (3) Afib Code(s): I48.91 - Unspecified atrial fibrillation Status: Acute (4) Cholecystitis Code(s): K81.9 - Cholecystitis, unspecified Status: Acute Plan: 67 year old male with afib RVR; s/p cardiac cath; cholecystics -S/p CABG -POD4 lap burt with drain placement -BP better improved; SBP 100s -WBC trending down -Okay for regular diet ---added Ensure supplements -Continue dressing changes daily and PRN
--- NOTE | 2018-04-28 17:20 | P.PN ---
Subjective Interval history: Late entry. The patient was seen earlier today. He is in the chair appears chronically ill. Patient says he does not have appetite and he is not able to eat. Has some nausea earlier today. No fever or chills overnight. No chest pain or shortness of breath. No palpitations. Heart rate has been stable. Physical Exam Vital signs: Vital Signs 04/27/18 18:00 04/27/18 19:00 04/27/18 20:00 Temperature 99.2 F Pulse Rate 83 81 82 Respiratory Rate 18 Blood Pressure 130/72 Pulse Oximetry 97 04/27/18 20:47 04/27/18 21:00 04/27/18 22:00 Temperature Pulse Rate 80 75 Respiratory Rate Blood Pressure Pulse Oximetry 97 04/27/18 23:00 04/28/18 00:00 04/28/18 01:00 Temperature 98.3 F Pulse Rate 72 79 77 Respiratory Rate 18 Blood Pressure 97/58 L Pulse Oximetry 96 04/28/18 02:00 04/28/18 03:00 04/28/18 04:00 Temperature 98.3 F Pulse Rate 79 80 81 Respiratory Rate 18 Blood Pressure 114/57 L Pulse Oximetry 94 L 04/28/18 05:00 04/28/18 06:00 04/28/18 07:00 Temperature 98.3 F Pulse Rate 81 82 82 Respiratory Rate 18 Blood Pressure 103/59 L Pulse Oximetry 94 L 04/28/18 08:00 04/28/18 09:00 04/28/18 10:00 Temperature Pulse Rate 76 80 86 Respiratory Rate Blood Pressure Pulse Oximetry 96 04/28/18 11:00 04/28/18 13:00 04/28/18 14:00 Temperature 98.3 F Pulse Rate 72 72 79 Respiratory Rate 18 Blood Pressure 105/56 L Pulse Oximetry 96 04/28/18 15:00 04/28/18 16:00 Temperature 98.5 F Pulse Rate 79 81 Respiratory Rate 18 Blood Pressure 107/59 L Pulse Oximetry 96 Intake & Output 04/27/18 04/28/18 04/28/18 18:59 06:59 18:59 Intake Total 1940 / 1940 1460 / 1460 350 / 350 Output Total 480 / 480 200 / 200 Balance 1460 / 1460 1260 / 1260 350 / 350 Weight 105 kg Intake: IV 1100 / 1100 1100 / 1100 350 / 350 NS Inj 1,000 ML @ 84 mls/hr IV. 1000 / 1000 1000 / 1000 CONT .[id number] THOMAS Rx#:[id number] Zosyn 3.375 GM Premix 50 ML @ 100 / 100 100 / 100 100 / 100 100 mls/hr IV.SIG Q6H THOMAS Rx#: [id number] Oral 840 / 840 360 / 360 Output: Urine 450 / 450 175 / 175 Wound Drainage # 1 Right ROCKY Drain Other: # Voids 2 2 Date of Last Bowel Movement 04/27/18 04/28/18 04/28/18 # Bowel Movements 1 2 Narrative: GENERAL: The patient is a very pleasant 67-year-old male, chronically ill appearing however not in acute distress. Respiratory: Decreased breath sounds. Cardiovascular: S1 and S2 no murmurs or rubs or gallops. Abdomen: Bowel sounds diminished, soft, no tenderness. Post laparoscopic cholecystectomy. ROCKY drain in place. Serous sanguinous drainage clear. No evidence of cellulitis. Extremities: No clubbing or cyanosis. Trace edema at the lower extremities. Muscle wasting. Weak handgrip. Skin: Pale. No rash. Mucous membranes slightly dry. NEUROLOGIC: Nonfocal. - Urinary Catheter Management 3-way Urethral Cath placed during this visit: yes, but has since been removed by the nurse Reason for continuing: Decision to DC catheter Insertion date: 04/13/18 Insertion time: 00:00 Removal date: 04/19/18 Removal time: 10:30 Results - Labs CBC & Chem 7: 04/27/18 15:40 04/27/18 15:40 Laboratory Results - last 24 hr 04/27/18 04/28/18 04/28/18 21:35 03:23 07:48 POC Glucose 269 H 124 H 145 H 04/28/18 11:50 POC Glucose 227 H Microbiology 04/26/18 00:55 Blood - Peripheral Aerobic Blood Culture - Preliminary No growth in 2 days 04/26/18 00:55 Blood - Peripheral Anaerobic Blood Culture - Preliminary No growth in 2 days 04/26/18 01:00 Blood - Peripheral Aerobic Blood Culture - Preliminary No growth in 2 days 04/26/18 01:00 Blood - Peripheral Anaerobic Blood Culture - Preliminary No growth in 2 days - Procedures CABG X3 ON 04-14 THOMAS-->LAD, SVG-->OM, SVG-->PDA PREPROCEDURE DIAGNOSES 1. Severe Multi Vessel Coronary Artery Disease. 2. Acute Myocardial Infarction (NSTEMI) 3. Acute Cholecystitis s/p percutaneous cholecystostomy tube placement 4. Sepsis and Bacteremia 5. Severe Pulmonary Insufficiency 6. Intramyocardial Coronary Vessels POSTPROCEDURE DIAGNOSES Same SURGICAL PROCEDURE 1. Urgent Off-pump Coronary Artery Bypass Grafting x 3 with Left Internal Mammary Artery (THOMAS) to Left Anterior Descending (LAD), reverse saphenous vein graft to obtuse Marginal branch of the left Circumflex artery, reverse saphenous vein graft to the posterior Descending branch of the right Coronary artery 2. Left leg Endoscopic Vein Freeman 3. Ultrasound-guided dissection of the LAD 4. Intraoperative Vein Mapping. Cholecystectomy 04/24/2018 Assessment and Plan - Assessment (1) Intractable abdominal pain Code(s): R10.9 - Unspecified abdominal pain Status: Acute - Plan Mr. Bridges is a pleasant 67-year-old male with history of prior gastric bypass who has acute clinical course has been complicated by acute cholecystitis and Klebsiella, E. coli bacteremia requiring a week of IV antibiotics, now complicated by acute non-ST elevation myocardial infarction and underwent urgent off-pump CABG x 3 (THOMAS-->LAD, SVG-->OM, SVG-->PDA) on 04/14. Sepsis/ Acute cholecystitis -History of E. coli and Klebsiella bacteremia on this admission -Status post cholecystectomy by Dr. Hall 04/24 -repeat blood cultures -pending -Continue Zosyn- will dc Meropenem -ID following. CABG x 3 (THOMAS-->LAD, SVG-->OM, SVG-->PDA) 04/14 NSTEMI CAD Hypotension -Blood pressure improved with 3 L fluid resuscitation -received 1 unit PRBC for hemoglobin 7.7 as this is trending down and patient was hypotensive; CBC today pending. - EF 60-65%, trace to mild MR on KELLY this admission - continue lipitor ,ASA -Further per cardiology and CT surgery Afib - now in SR on telemetry -continue Metoprolol, Cardizem and Amiodarone -started on Eliquis -cardiology/CT surgery following. Hematuria S/P cystoscopy- 04/11 Hematuria - resolved -voiding well- gross clear urine -Urology input appreciated DM II - SSI. Severe protein calorie malnutrition Will check prealbumin. Patient was low albumin, decreased p.o. intake. Will consult dietitian. DVT GI prophylaxis -Teds SCDs -Pharmacological DVT prophylaxis per surgery and urology -Pepcid Discussed with the patient, nurse Discharge plan. Discharge when improved and cleared by consultants. Needs rehab PT following
--- NOTE | 2018-04-28 17:52 | P.PNCA ---
Subjective Interval history: Feels ok overall Eating small amounts Medications and Allergies Active Medications: Active Medications Acetaminophen (Tylenol) 650 mg PO Q4H PRN PRN Reason: Temp > 100.4 Last Admin: 03/27/18 09:04 Dose: 650 mg Hydrocodone Bitart/Acetaminophen ([place] 5/325) 1 tab PO Q3H PRN PRN Reason: PAIN SCALE 1 TO 5 Last Admin: 04/26/18 04:38 Dose: 1 tab Al Hydroxide/Mg Hydroxide (Milk Of Magnsofia Liq) 30 ml PO Q12H PRN PRN Reason: Mild Constipation Last Admin: 04/17/18 14:37 Dose: 30 ml Albuterol (Duoneb Neb (Prn)) 1 ampul NEB Q2HR NEB PRN PRN Reason: WHEEZING Last Admin: 04/17/18 00:13 Dose: 1 ampul Amiodarone HCl (Cordarone) 400 mg PO BID [facility] Last Admin: 04/28/18 08:30 Dose: 400 mg Apixaban (Eliquis) 5 mg PO BID [facility] Last Admin: 04/21/18 20:03 Dose: 5 mg Aspirin (Aspirin Chew) 81 mg PO DAILY [facility] Last Admin: 04/28/18 08:30 Dose: 81 mg Atorvastatin Calcium (Lipitor) 20 mg PO DAILY [facility] Last Admin: 04/28/18 08:29 Dose: 20 mg Bisacodyl (Dulcolax Supp) 10 mg RECTAL DAILY PRN PRN Reason: SEVERE CONSITIPATION Last Admin: 04/23/18 03:26 Dose: 10 mg Bisacodyl (Dulcolax Ec) 10 mg PO ONCE ONE Last Admin: 03/30/18 17:35 Dose: 10 mg Dextrose (D50w Vial) 50 ml IV.PUSH UNSCH PRN PRN Reason: PER HYPOGLYCEMIA PROTOCOL Last Admin: 04/19/18 16:09 Dose: 50 ml Diltiazem HCl (Cardizem) 30 mg PO QID [facility] Last Admin: 04/15/18 13:21 Dose: Not Given Docusate Sodium (Colace) 100 mg PO BID [facility] Last Admin: 04/28/18 08:30 Dose: Not Given Glucagon (Glucagon Inj) 1 mg OTHER PRN PRN PRN Reason: for Hypoglycemia Protocol Sodium Chloride (Ns Inj) 500 mls @ 30 mls/hr IV.SIG .Q10H [facility] Last Admin: 04/14/18 05:34 Dose: Not Given Piperacillin/Tazobactam/Dextrose (Zosyn 3.375 Gm Premix) 50 mls @ 100 mls/hr IV.SIG Q6H [facility] Last Infusion: 04/28/18 15:57 Dose: Infused Sodium Chloride (Ns Inj) 1,000 mls @ 0 mls/hr IV.SIG BOLUS PRN PRN Reason: SEE LABEL COMMENTS Last Infusion: 04/26/18 07:42 Dose: Infused Sodium Chloride (Ns Inj) 1,000 mls @ 84 mls/hr IV.CONT .[id number] [facility] Last Admin: 04/28/18 08:29 Dose: Not Given Insulin Aspart (Novolog Insulin Correctional Sugar Inj) 0 unit SQ ACHS AND 3AM [facility]; Protocol Last Admin: 04/28/18 15:57 Dose: 4 unit Lactulose (Lactulose Liq) 30 ml PO DAILY PRN PRN Reason: SEVERE CONSITIPATION Last Admin: 04/23/18 08:22 Dose: 30 ml Magnesium Oxide (Mag-Ox) 400 mg PO BID [facility] Last Admin: 04/28/18 08:30 Dose: 400 mg Metformin HCl (Glucophage) 1,000 mg PO BID [facility] Last Admin: 04/16/18 10:08 Dose: Not Given Metoprolol Tartrate (Lopressor) 25 mg PO BID [facility] Last Admin: 04/28/18 08:30 Dose: 25 mg Miscellaneous (Pill Splitter) 1 each OTHER UNSCH PRN PRN Reason: PILL SPIT Morphine Sulfate (Morphine Inj) 2 mg IV.PUSH Q3H PRN PRN Reason: BREAKTHROUGH PAIN Multivitamins/Minerals (Theragran-M) 1 tab PO DAILY [facility] Last Admin: 04/28/18 08:29 Dose: 1 tab Ondansetron HCl (Zofran Inj) 4 mg IV.PUSH Q6H PRN PRN Reason: NAUSEA OR VOMITING Last Admin: 04/25/18 05:13 Dose: 4 mg Pantoprazole Sodium (Protonix) 40 mg PO DAILY [facility] Last Admin: 04/28/18 08:30 Dose: 40 mg Polyethylene Glycol (Miralax) 17 gm PO DAILY [facility] Last Admin: 04/28/18 08:30 Dose: Not Given Prochlorperazine Edisylate (Compazine Inj) 10 mg IV.PUSH Q6H PRN PRN Reason: NAUSEA Last Admin: 04/24/18 16:07 Dose: 10 mg Senna/Docusate Sodium (Carlotta-Colace) 1 tab PO BID [facility] Last Admin: 04/28/18 08:30 Dose: Not Given Sennosides (Senokot) 17.2 mg PO Q12H PRN PRN Reason: Moderate Constipation Last Admin: 04/23/18 08:22 Dose: 17.2 mg Sodium Biphosphate/Sodium Phosphate (Fleets Enema (Adult)) 118 ml RECTAL UNSCH PRN PRN Reason: SEE LABEL COMMENTS Sodium Chloride (Ns Flush) 2 ml IV.FLUSH BID [facility] Last Admin: 04/28/18 08:30 Dose: 2 ml Sodium Chloride (Ns Flush) 2 ml IV.FLUSH PRN PRN PRN Reason: FLUSH AFTER USING IV ACCESS Allergies Allergy/AdvReac Type Severity Reaction Status Date / Time No Known Allergies Allergy Verified 03/19/18 10:28 Home Medications Medication Instructions Recorded Confirmed Type atorvastatin 20 mg PO DAILY 03/19/18 03/19/18 History liraglutide [Victoza 2-Sonido] 0.6 mg SUBCUT DAILY 03/19/18 03/19/18 History metformin 1,000 mg PO BID 03/19/18 03/19/18 History omeprazole-sodium bicarbonate 1 cap PO DAILY 03/19/18 03/19/18 History pantoprazole 20 mg PO DAILY 03/19/18 03/19/18 History Physical Exam Vital signs: Vital Signs 04/27/18 18:00 04/27/18 19:00 04/27/18 20:00 Temperature 99.2 F Pulse Rate 83 81 82 Respiratory Rate 18 Blood Pressure 130/72 Pulse Oximetry 97 04/27/18 20:47 04/27/18 21:00 04/27/18 22:00 Temperature Pulse Rate 80 75 Respiratory Rate Blood Pressure Pulse Oximetry 97 04/27/18 23:00 04/28/18 00:00 04/28/18 01:00 Temperature 98.3 F Pulse Rate 72 79 77 Respiratory Rate 18 Blood Pressure 97/58 L Pulse Oximetry 96 04/28/18 02:00 04/28/18 03:00 04/28/18 04:00 Temperature 98.3 F Pulse Rate 79 80 81 Respiratory Rate 18 Blood Pressure 114/57 L Pulse Oximetry 94 L 04/28/18 05:00 04/28/18 06:00 04/28/18 07:00 Temperature 98.3 F Pulse Rate 81 82 82 Respiratory Rate 18 Blood Pressure 103/59 L Pulse Oximetry 94 L 04/28/18 08:00 04/28/18 09:00 04/28/18 10:00 Temperature Pulse Rate 76 80 86 Respiratory Rate Blood Pressure Pulse Oximetry 96 04/28/18 11:00 04/28/18 13:00 04/28/18 14:00 Temperature 98.3 F Pulse Rate 72 72 79 Respiratory Rate 18 Blood Pressure 105/56 L Pulse Oximetry 96 04/28/18 15:00 04/28/18 16:00 Temperature 98.5 F Pulse Rate 79 81 Respiratory Rate 18 Blood Pressure 107/59 L Pulse Oximetry 96 Intake & Output 04/27/18 04/28/18 04/28/18 18:59 06:59 18:59 Intake Total 1940 / 1940 1460 / 1460 350 / 350 Output Total 480 / 480 200 / 200 Balance 1460 / 1460 1260 / 1260 350 / 350 Weight 105 kg Intake: IV 1100 / 1100 1100 / 1100 350 / 350 NS Inj 1,000 ML @ 84 mls/hr IV. 1000 / 1000 1000 / 1000 CONT .[id number] [facility] Rx#:[id number] Zosyn 3.375 GM Premix 50 ML @ 100 / 100 100 / 100 100 / 100 100 mls/hr IV.SIG Q6H [facility] Rx#: [id number] Oral 840 / 840 360 / 360 Output: Urine 450 / 450 175 / 175 Wound Drainage / # 1 Right ROCKY Drain Other: # Voids 2 2 Date of Last Bowel Movement 04/27/18 04/28/18 04/28/18 # Bowel Movements 1 2 Narrative: GENERAL: The patient is a very pleasant 67-year-old male, chronically ill appearing however not in acute distress. Respiratory: Decreased breath sounds. Cardiovascular: Irregularly irregular Abdomen: Bowel sounds diminished, soft, no tenderness. Post laparoscopic cholecystectomy. J Extremities: No clubbing or cyanosis. Trace edema at the lower extremities. Muscle wasting. Weak handgrip. Skin: Pale. No rash. Mucous membranes slightly dry. NEUROLOGIC: Nonfocal. - Urinary Catheter Management 3-way Urethral Cath placed during this visit: yes, but has since been removed by the nurse Reason for continuing: Decision to DC catheter Insertion date: 04/13/18 Insertion time: 00:00 Removal date: 04/19/18 Removal time: 10:30 Results 04/27/18 15:40 04/27/18 15:40 Cardiac Enzymes 04/27/18 Range/Units 15:40 AST 33 (15-37) U/L CBC 04/27/18 Range/Units 15:40 WBC 14.9 H (4.0-11.0) th/mm3 RBC 3.04 L (4.50-5.90) mil/mm3 Hgb 9.0 L (13.0-17.0) gm/dL Hct 27.1 L (39.0-51.0) % Plt Count 414 (150-450) th/mm3 Comprehensive Metabolic Panel 04/27/18 Range/Units 15:40 Sodium 140 (136-145) meq/L Potassium 3.8 (3.5-5.1) meq/L Chloride 106 (98-107) meq/L Carbon Dioxide 26.9 (21.0-32.0) meq/L BUN 10 (7-18) mg/dL Creatinine 0.78 (0.60-1.30) mg/dL Calcium 7.4 L* (8.5-10.1) mg/dL AST 33 (15-37) U/L ALT 29 (12-78) U/L Alkaline Phosphatase 114 (45-117) U/L Total Protein 5.8 L (6.4-8.2) g/dL Albumin 1.7 L (3.4-5.0) g/dL Intake and Output 04/28/18 04/28/18 04/28/18 06:59 14:59 22:59 Intake Total 410 / 410 300 / 300 50 / 50 Output Total 200 / 200 Balance 210 / 210 300 / 300 50 / 50 Intake: IV 50 / 50 300 / 300 50 / 50 Zosyn 3.375 GM Premix 50 ML @ 50 / 50 50 / 50 50 / 50 100 mls/hr IV.SIG Q6H [facility] Rx#: [id number] Oral 360 / 360 Output: Urine 175 / 175 Wound Drainage # 1 Right ROCKY Drain Other: # Voids 2 Date of Last Bowel Movement 04/28/18 04/28/18 04/28/18 # Bowel Movements 2 Weight 105 kg Assessment and Plan - Assessment (1) NSTEMI (non-ST elevated myocardial infarction) Code(s): I21.4 - Non-ST elevation (NSTEMI) myocardial infarction Status: Acute (2) Afib Code(s): I48.91 - Unspecified atrial fibrillation Status: Acute (3) SIRS (systemic inflammatory response syndrome) Code(s): R65.10 - Systemic inflammatory response syndrome (SIRS) of non- infectious origin without acute organ dysfunction Status: Acute (4) Intractable abdominal pain Code(s): R10.9 - Unspecified abdominal pain Status: Acute - Plan 1) Abdominal pain/nausea/emesis Found to have cholecystitis s/p cholecystectomy 2) NSTEMI Found to have multivessel CAD CABG x3 THOMAS to LAD SVG to OM SVG to PDA 3) Afib New onset 04/15/18 Cardizem stopped due to being on vasopressor, con't Amiodarone 04/16/18 Converted back to AFib overnight, increase Metoprolol, may need to be started back on Cardizem Will need to consider anticoagulation when felt he can be restarted after cholecystectomy Will wait for Hgb to stabilize and general surgery to give the OK Once BP stable, need to restart AV mya blocking agents Currently stable on Amiodarone 4) Bacteremia KELLY negative for vegetation, no signs of endocarditis 5) Hematuria ASA restarted 6) MRCP showing multiple stones in the common bile duct
[2018-04-29] MEDS: Piperacil/Tazo 3.375 GM Premix 50 ML IV.SIG SCH ×4 (03:38→21:42)
[2018-04-29] MEDS: Insulin NovoLOG Aspart Correctional Sugar Inj SQ SCH ×5 (03:39→21:42)
[2018-04-29 04:54] LABS: Baso % (Auto) 0.5 % (0.0-2.0); Eos # (Auto) 0.2 th/mm3 (0.0-0.4); Hematocrit 26.9 % (39.0-51.0); Hemoglobin 8.9 gm/dL (13.0-17.0); Lymph # (Auto) 1.7 th/mm3 (1.0-4.8); Lymph % (Auto) 15.9 % (9.0-44.0); Mean Corpuscular HGB Conc 33.3 % (32.0-36.0); Mean Corpuscular Hemoglobin 29.3 pg (27.0-34.0); Mean Platelet Volume 7.2 fL (7.0-11.0); Mono % (Auto) 9.2 % (0.0-8.0); Neut # (Auto) 7.8 th/mm3 (1.8-7.7); Neut % (Auto) 72.4 % (16.0-70.0); Platelet Count 514 th/mm3 (150-450); Red Blood Count 3.05 mil/mm3 (4.50-5.90); Red Cell Distribution Width 15.9 % (11.6-17.2); White Blood Count 10.8 th/mm3 (4.0-11.0)
[2018-04-29 05:13] LABS: Albumin 1.7 g/dL (3.4-5.0); Anion Gap 8 meq/L (5-15); Aspartate Aminotransferase 34 U/L (15-37); Blood Urea Nitrogen 9 mg/dL (7-18); Calcium 7.5 mg/dL (8.5-10.1); Carbon Dioxide 26.8 meq/L (21.0-32.0); Chloride 109 meq/L (98-107); Glomerular Filtration Rate Greater Than 89 mL/min (>89); Glucose,Random 123 mg/dL (74-106); Potassium 3.7 meq/L (3.5-5.1); Sodium 144 meq/L (136-145)
[2018-04-29 05:15] LABS: Alanine Aminotransferase 31 U/L (12-78)
[2018-04-29 05:17] LABS: Alkaline Phosphatase 102 U/L (45-117); Total Protein 5.8 g/dL (6.4-8.2)
[2018-04-29] MEDS: Multivitamin/Minerals Therapeutic Tablet PO SCH (10:11)
[2018-04-29] MEDS: Metoprolol Tartrate 25 MG Tablet PO SCH ×2 (10:12→21:13)
[2018-04-29] MEDS: Senna/Docusate Sodium 8.6/50 MG Tablet PO SCH ×2 (10:12→21:14)
[2018-04-29] MEDS: Magnesium Oxide 400 MG Tablet PO SCH ×2 (10:12→21:13)
[2018-04-29] MEDS: Polyethylene Glycol 3350 17 GM Packet PO SCH (10:13)
[2018-04-29] MEDS: Amiodarone 200 MG Tablet PO SCH ×2 (10:13→21:11)
[2018-04-29] MEDS: Docusate Sodium 100 MG Capsule PO SCH ×2 (10:13→21:11)
--- NOTE | 2018-04-29 10:41 | P.PNCA ---
Subjective Interval history: Pt notes nausea and mild abdm pain, but no cardiac sx. Medications and Allergies Active Medications: Active Medications Acetaminophen (Tylenol) 650 mg PO Q4H PRN PRN Reason: Temp > 100.4 Last Admin: 03/27/18 09:04 Dose: 650 mg Hydrocodone Bitart/Acetaminophen ([place] 5/325) 1 tab PO Q3H PRN PRN Reason: PAIN SCALE 1 TO 5 Last Admin: 04/29/18 10:28 Dose: 1 tab Al Hydroxide/Mg Hydroxide (Milk Of Magnsofia Liq) 30 ml PO Q12H PRN PRN Reason: Mild Constipation Last Admin: 04/17/18 14:37 Dose: 30 ml Albuterol (Duoneb Neb (Prn)) 1 ampul NEB Q2HR NEB PRN PRN Reason: WHEEZING Last Admin: 04/17/18 00:13 Dose: 1 ampul Amiodarone HCl (Cordarone) 400 mg PO BID [facility] Last Admin: 04/29/18 10:13 Dose: 400 mg Apixaban (Eliquis) 5 mg PO BID [facility] Last Admin: 04/29/18 10:11 Dose: 5 mg Aspirin (Aspirin Chew) 81 mg PO DAILY [facility] Last Admin: 04/29/18 10:12 Dose: 81 mg Atorvastatin Calcium (Lipitor) 20 mg PO DAILY [facility] Last Admin: 04/29/18 10:10 Dose: 20 mg Bisacodyl (Dulcolax Supp) 10 mg RECTAL DAILY PRN PRN Reason: SEVERE CONSITIPATION Last Admin: 04/23/18 03:26 Dose: 10 mg Bisacodyl (Dulcolax Ec) 10 mg PO ONCE ONE Last Admin: 03/30/18 17:35 Dose: 10 mg Dextrose (D50w Vial) 50 ml IV.PUSH UNSCH PRN PRN Reason: PER HYPOGLYCEMIA PROTOCOL Last Admin: 04/19/18 16:09 Dose: 50 ml Diltiazem HCl (Cardizem) 30 mg PO QID [facility] Last Admin: 04/15/18 13:21 Dose: Not Given Docusate Sodium (Colace) 100 mg PO BID [facility] Last Admin: 04/29/18 10:13 Dose: Not Given Glucagon (Glucagon Inj) 1 mg OTHER PRN PRN PRN Reason: for Hypoglycemia Protocol Sodium Chloride (Ns Inj) 500 mls @ 30 mls/hr IV.SIG .Q10H [facility] Last Admin: 04/14/18 05:34 Dose: Not Given Piperacillin/Tazobactam/Dextrose (Zosyn 3.375 Gm Premix) 50 mls @ 100 mls/hr IV.SIG Q6H [facility] Last Admin: 04/29/18 10:10 Dose: 100 mls/hr Sodium Chloride (Ns Inj) 1,000 mls @ 0 mls/hr IV.SIG BOLUS PRN PRN Reason: SEE LABEL COMMENTS Last Infusion: 04/26/18 07:42 Dose: Infused Sodium Chloride (Ns Inj) 1,000 mls @ 84 mls/hr IV.CONT .[id number] [facility] Last Admin: 04/28/18 20:41 Dose: Not Given Insulin Aspart (Novolog Insulin Correctional Sugar Inj) 0 unit SQ ACHS AND 3AM [facility]OM[facility]; Protocol Last Admin: 04/29/18 03:39 Dose: Not Given Lactulose (Lactulose Liq) 30 ml PO DAILY PRN PRN Reason: SEVERE CONSITIPATION Last Admin: 04/23/18 08:22 Dose: 30 ml Magnesium Oxide (Mag-Ox) 400 mg PO BID [facility] Last Admin: 04/29/18 10:12 Dose: 400 mg Metformin HCl (Glucophage) 1,000 mg PO BID [facility] Last Admin: 04/16/18 10:08 Dose: Not Given Metoprolol Tartrate (Lopressor) 25 mg PO BID [facility] Last Admin: 04/29/18 10:12 Dose: 25 mg Miscellaneous (Pill Splitter) 1 each OTHER UNSCH PRN PRN Reason: PILL SPIT Morphine Sulfate (Morphine Inj) 2 mg IV.PUSH Q3H PRN PRN Reason: BREAKTHROUGH PAIN Multivitamins/Minerals (Theragran-M) 1 tab PO DAILY [facility] Last Admin: 04/29/18 10:11 Dose: 1 tab Ondansetron HCl (Zofran Inj) 4 mg IV.PUSH Q6H PRN PRN Reason: NAUSEA OR VOMITING Last Admin: 04/29/18 10:10 Dose: 4 mg Pantoprazole Sodium (Protonix) 40 mg PO DAILY [facility] Last Admin: 04/29/18 10:11 Dose: 40 mg Polyethylene Glycol (Miralax) 17 gm PO DAILY [facility] Last Admin: 04/29/18 10:13 Dose: Not Given Prochlorperazine Edisylate (Compazine Inj) 10 mg IV.PUSH Q6H PRN PRN Reason: NAUSEA Last Admin: 04/24/18 16:07 Dose: 10 mg Senna/Docusate Sodium (Carlotta-Colace) 1 tab PO BID [facility] Last Admin: 04/29/18 10:12 Dose: Not Given Sennosides (Senokot) 17.2 mg PO Q12H PRN PRN Reason: Moderate Constipation Last Admin: 04/23/18 08:22 Dose: 17.2 mg Sodium Biphosphate/Sodium Phosphate (Fleets Enema (Adult)) 118 ml RECTAL UNSCH PRN PRN Reason: SEE LABEL COMMENTS Sodium Chloride (Ns Flush) 2 ml IV.FLUSH BID [facility] Last Admin: 04/29/18 10:13 Dose: Not Given Sodium Chloride (Ns Flush) 2 ml IV.FLUSH PRN PRN PRN Reason: FLUSH AFTER USING IV ACCESS Allergies Allergy/AdvReac Type Severity Reaction Status Date / Time No Known Allergies Allergy Verified 03/19/18 10:28 Home Medications Medication Instructions Recorded Confirmed Type atorvastatin 20 mg PO DAILY 03/19/18 03/19/18 History liraglutide [Victoza 2-Sonido] 0.6 mg SUBCUT DAILY 03/19/18 03/19/18 History metformin 1,000 mg PO BID 03/19/18 03/19/18 History omeprazole-sodium bicarbonate 1 cap PO DAILY 03/19/18 03/19/18 History pantoprazole 20 mg PO DAILY 03/19/18 03/19/18 History Physical Exam Vital signs: Vital Signs 04/28/18 11:00 04/28/18 13:00 04/28/18 14:00 Temperature 98.3 F Pulse Rate 72 72 79 Respiratory Rate 18 Blood Pressure 105/56 L Pulse Oximetry 96 04/28/18 15:00 04/28/18 16:00 04/28/18 17:00 Temperature 98.5 F Pulse Rate 79 81 86 Respiratory Rate 18 Blood Pressure 107/59 L Pulse Oximetry 96 04/28/18 18:00 04/28/18 19:00 04/28/18 20:00 Temperature 97.8 F Pulse Rate 90 82 80 Respiratory Rate 20 Blood Pressure 110/62 Pulse Oximetry 98 04/28/18 20:10 04/28/18 21:00 04/28/18 22:00 Temperature Pulse Rate 71 71 Respiratory Rate Blood Pressure Pulse Oximetry 96 04/28/18 23:00 04/29/18 00:00 04/29/18 01:00 Temperature 98.8 F Pulse Rate 74 77 76 Respiratory Rate 18 Blood Pressure 107/69 Pulse Oximetry 98 04/29/18 02:00 04/29/18 03:00 04/29/18 04:00 Temperature Pulse Rate 81 78 86 Respiratory Rate 16 Blood Pressure 125/60 Pulse Oximetry 96 04/29/18 05:00 04/29/18 06:00 Temperature Pulse Rate 78 74 Respiratory Rate Blood Pressure Pulse Oximetry Intake & Output 04/28/18 04/29/18 04/29/18 18:59 06:59 18:59 Intake Total 1190 / 1190 580 / 580 Output Total 400 / 400 20 / 20 Balance 790 / 790 560 / 560 Weight 104.7 kg Intake: IV 350 / 350 100 / 100 Zosyn 3.375 GM Premix 50 ML @ 100 / 100 100 / 100 100 mls/hr IV.SIG Q6H [facility] Rx#: [id number] Oral 840 / 840 480 / 480 Output: Urine 400 / 400 Wound Drainage 20 / 20 # 1 Right ROCKY Drain 20 / 20 Other: # Voids 2 4 Date of Last Bowel Movement 04/28/18 04/29/18 # Bowel Movements 2 3 - Constitutional no acute distress - Routine HEENT Exam Head: Present: normocephalic ENT: Present: mucous membranes moist - Routine Neck Exam Present: supple. Absent: JVD - Routine Cardiovascular Exam Present: RRR. Absent: murmur - Routine Abdominal Exam Present: soft - Routine Extremities Exam Absent: edema - Urinary Catheter Management 3-way Urethral Cath placed during this visit: yes, but has since been removed by the nurse Reason for continuing: Decision to DC catheter Insertion date: 04/13/18 Insertion time: 00:00 Removal date: 04/19/18 Removal time: 10:30 Results 04/29/18 04:32 04/29/18 04:32 Cardiac Enzymes 04/27/18 04/29/18 Range/Units 15:40 04:32 AST 33 34 (15-37) U/L CBC 04/27/18 04/29/18 Range/Units 15:40 04:32 WBC 14.9 H 10.8 (4.0-11.0) th/mm3 RBC 3.04 L 3.05 L (4.50-5.90) mil/mm3 Hgb 9.0 L 8.9 L (13.0-17.0) gm/dL Hct 27.1 L 26.9 L (39.0-51.0) % Plt Count 414 514 H (150-450) th/mm3 Neut # (Auto) 7.8 H (1.8-7.7) th/mm3 Lymph # (Auto) 1.7 (1.0-4.8) th/mm3 [place] # (Auto) 1.0 H (0.0-0.9) th/mm3 Eos # (Auto) 0.2 (0.0-0.4) th/mm3 Baso # (Auto) 0.0 (0.0-0.2) th/mm3 Comprehensive Metabolic Panel 04/27/18 04/29/18 Range/Units 15:40 04:32 Sodium 140 144 (136-145) meq/L Potassium 3.8 3.7 (3.5-5.1) meq/L Chloride 106 109 H (98-107) meq/L Carbon Dioxide 26.9 26.8 (21.0-32.0) meq/L BUN 10 9 (7-18) mg/dL Creatinine 0.78 0.70 (0.60-1.30) mg/dL Calcium 7.4 L* 7.5 L (8.5-10.1) mg/dL AST 33 34 (15-37) U/L ALT 29 31 (12-78) U/L Alkaline Phosphatase 114 102 (45-117) U/L Total Protein 5.8 L 5.8 L (6.4-8.2) g/dL Albumin 1.7 L 1.7 L (3.4-5.0) g/dL Intake and Output 04/28/18 04/29/18 04/29/18 22:59 06:59 14:59 Intake Total 940 / 940 530 / 530 Output Total 400 / 400 20 / 20 Balance 540 / 540 510 / 510 Intake: IV 100 / 100 50 / 50 Zosyn 3.375 GM Premix 50 ML @ 100 / 100 50 / 50 100 mls/hr IV.SIG Q6H [facility] Rx#: [id number] Oral 840 / 840 480 / 480 Output: Urine 400 / 400 Wound Drainage # 1 Right ROCKY Drain Other: # Voids 2 4 Date of Last Bowel Movement 04/28/18 04/29/18 # Bowel Movements 2 3 Weight 104.7 kg Assessment and Plan - Assessment (1) NSTEMI (non-ST elevated myocardial infarction) Code(s): I21.4 - Non-ST elevation (NSTEMI) myocardial infarction Status: Acute (2) Afib Code(s): I48.91 - Unspecified atrial fibrillation Status: Acute (3) SIRS (systemic inflammatory response syndrome) Code(s): R65.10 - Systemic inflammatory response syndrome (SIRS) of non- infectious origin without acute organ dysfunction Status: Acute (4) Intractable abdominal pain Code(s): R10.9 - Unspecified abdominal pain Status: Acute - Plan 1) Abdominal pain/nausea/emesis Found to have cholecystitis s/p cholecystectomy 2) NSTEMI Found to have multivessel CAD CABG x3 THOMAS to LAD SVG to OM SVG to PDA 3) Afib New onset 04/15/18 Cardizem stopped due to being on vasopressor, con't Amiodarone 04/16/18 Converted back to AFib overnight, increase Metoprolol, may need to be started back on Cardizem Will need to consider anticoagulation when felt he can be restarted after cholecystectomy Will wait for Hgb to stabilize and general surgery to give the OK Once BP stable, need to restart AV mya blocking agents Currently stable on Amiodarone 4) Bacteremia KELLY negative for vegetation, no signs of endocarditis 5) Hematuria ASA restarted 6) MRCP showing multiple stones in the common bile duct Off tele now, would restart; await surgery ok to initiate anticoagulation
[2018-04-29] MEDS: Sod Chloride 0.9% Inj 1,000 ML IV.CONT SCH ×2 (15:20→21:17)
--- NOTE | 2018-04-29 15:55 | P.PN ---
Subjective Interval history: Still feels nauseated. No vomiting and able to keep food down. Not eating much. Mo fever or chills No cough Feels tired No chest pain or palpitations. Right arm with pain, swelling and some redness. Will do US doppler. IV changed to the left. Patient has no fever or chills. Physical Exam Vital signs: Vital Signs 04/28/18 16:00 04/28/18 17:00 04/28/18 18:00 Temperature Pulse Rate 81 86 90 Respiratory Rate Blood Pressure Pulse Oximetry 04/28/18 19:00 04/28/18 20:00 04/28/18 20:10 Temperature 97.8 F Pulse Rate 82 80 Respiratory Rate 20 Blood Pressure 110/62 Pulse Oximetry 98 96 04/28/18 21:00 04/28/18 22:00 04/28/18 23:00 Temperature 98.8 F Pulse Rate 71 71 74 Respiratory Rate 18 Blood Pressure 107/69 Pulse Oximetry 98 04/29/18 00:00 04/29/18 01:00 04/29/18 02:00 Temperature Pulse Rate 77 76 81 Respiratory Rate Blood Pressure Pulse Oximetry 04/29/18 03:00 04/29/18 04:00 04/29/18 05:00 Temperature Pulse Rate 78 86 78 Respiratory Rate 16 Blood Pressure 125/60 Pulse Oximetry 96 04/29/18 06:00 04/29/18 07:00 04/29/18 08:00 Temperature 97.6 F Pulse Rate 74 79 80 Respiratory Rate 16 Blood Pressure 97/54 L Pulse Oximetry 96 04/29/18 09:00 04/29/18 10:00 04/29/18 11:00 Temperature 98.5 F Pulse Rate 95 H 88 84 Respiratory Rate 16 Blood Pressure 97/56 L Pulse Oximetry 97 04/29/18 12:00 04/29/18 13:00 04/29/18 14:00 Temperature Pulse Rate 74 87 80 Respiratory Rate Blood Pressure Pulse Oximetry 04/29/18 15:00 04/29/18 15:22 Temperature 98.5 F Pulse Rate 74 82 Respiratory Rate 16 Blood Pressure 97/54 L Pulse Oximetry 97 Intake & Output 04/28/18 04/29/18 04/29/18 18:59 06:59 18:59 Intake Total 1190 / 1190 580 / 580 50 / 50 Output Total 400 / 400 20 / 20 Balance 790 / 790 560 / 560 50 / 50 Weight 104.7 kg Intake: IV 350 / 350 100 / 100 50 / 50 Zosyn 3.375 GM Premix 50 ML @ 100 / 100 100 / 100 50 / 50 100 mls/hr IV.SIG Q6H [facility] Rx#: [id number] Oral 840 / 840 480 / 480 Output: Urine 400 / 400 Wound Drainage # 1 Right ROCKY Drain Other: # Voids 2 4 Date of Last Bowel Movement 04/28/18 04/29/18 04/29/18 # Bowel Movements 2 3 Narrative: GENERAL: The patient is a very pleasant 67-year-old male, chronically ill, not in acute distress. Respiratory: Decreased breath sounds. Cardiovascular: Irregularly irregular Abdomen: Bowel sounds diminished, soft, no tenderness. Post laparoscopic cholecystectomy. J Extremities: No clubbing or cyanosis. Right arm with redness and pain at the previous IV site. Trace edema at the lower extremities. Muscle wasting. Weak handgrip. Skin: Pale. Mucous membranes slightly dry. NEUROLOGIC: Nonfocal. - Urinary Catheter Management 3-way Urethral Cath placed during this visit: yes, but has since been removed by the nurse Reason for continuing: Decision to DC catheter Insertion date: 04/13/18 Insertion time: 00:00 Removal date: 04/19/18 Removal time: 10:30 Results - Labs CBC & Chem 7: 04/29/18 04:32 04/29/18 04:32 Laboratory Results - last 24 hr 04/28/18 04/28/18 04/29/18 17:33 22:54 04:32 WBC 10.8 RBC 3.05 L Hgb 8.9 L Hct 26.9 L MCV 88.0 MCH 29.3 MCHC 33.3 RDW 15.9 Plt Count 514 H MPV 7.2 Neut % (Auto) 72.4 H Lymph % (Auto) 15.9 [place] % (Auto) 9.2 H Eos % (Auto) 2.0 Baso % (Auto) 0.5 Neut # (Auto) 7.8 H Lymph # (Auto) 1.7 [place] # (Auto) 1.0 H Eos # (Auto) 0.2 Baso # (Auto) 0.0 WBC Differential . Differential Comment Auto diff final Sodium Potassium Chloride Carbon Dioxide Anion Gap BUN Creatinine Estimated GFR POC Glucose 195 H 179 H Random Glucose Calcium Total Bilirubin AST ALT Alkaline Phosphatase Total Protein Albumin Prealbumin 04/29/18 04/29/18 04/29/18 04:32 04:32 10:07 WBC RBC Hgb Hct MCV MCH MCHC RDW Plt Count MPV Neut % (Auto) Lymph % (Auto) [place] % (Auto) Eos % (Auto) Baso % (Auto) Neut # (Auto) Lymph # (Auto) [place] # (Auto) Eos # (Auto) Baso # (Auto) WBC Differential Differential Comment Sodium 144 Potassium 3.7 Chloride 109 H Carbon Dioxide 26.8 Anion Gap 8 BUN 9 Creatinine 0.70 Estimated GFR Greater than 89 POC Glucose 254 H Random Glucose 123 H Calcium 7.5 L Total Bilirubin 0.5 AST 34 ALT 31 Alkaline Phosphatase 102 Total Protein 5.8 L Albumin 1.7 L Prealbumin 7 L 04/29/18 12:07 WBC RBC Hgb Hct MCV MCH MCHC RDW Plt Count MPV Neut % (Auto) Lymph % (Auto) [place] % (Auto) Eos % (Auto) Baso % (Auto) Neut # (Auto) Lymph # (Auto) [place] # (Auto) Eos # (Auto) Baso # (Auto) WBC Differential Differential Comment Sodium Potassium Chloride Carbon Dioxide Anion Gap BUN Creatinine Estimated GFR POC Glucose 229 H Random Glucose Calcium Total Bilirubin AST ALT Alkaline Phosphatase Total Protein Albumin Prealbumin Microbiology 04/26/18 00:55 Blood - Peripheral Aerobic Blood Culture - Preliminary No growth in 3 days 04/26/18 00:55 Blood - Peripheral Anaerobic Blood Culture - Preliminary No growth in 3 days 04/26/18 01:00 Blood - Peripheral Aerobic Blood Culture - Preliminary No growth in 3 days 04/26/18 01:00 Blood - Peripheral Anaerobic Blood Culture - Preliminary No growth in 3 days - Procedures CABG X3 ON 04-14 THOMAS-->LAD, SVG-->OM, SVG-->PDA PREPROCEDURE DIAGNOSES 1. Severe Multi Vessel Coronary Artery Disease. 2. Acute Myocardial Infarction (NSTEMI) 3. Acute Cholecystitis s/p percutaneous cholecystostomy tube placement 4. Sepsis and Bacteremia 5. Severe Pulmonary Insufficiency 6. Intramyocardial Coronary Vessels POSTPROCEDURE DIAGNOSES Same SURGICAL PROCEDURE 1. Urgent Off-pump Coronary Artery Bypass Grafting x 3 with Left Internal Mammary Artery (THOMAS) to Left Anterior Descending (LAD), reverse saphenous vein graft to obtuse Marginal branch of the left Circumflex artery, reverse saphenous vein graft to the posterior Descending branch of the right Coronary artery 2. Left leg Endoscopic Vein Pitcher 3. Ultrasound-guided dissection of the LAD 4. Intraoperative Vein Mapping. Cholecystectomy 04/24/2018 Assessment and Plan - Assessment (1) Intractable abdominal pain Code(s): R10.9 - Unspecified abdominal pain Status: Acute - Plan Mr. Bridges is a pleasant 67-year-old male with history of prior gastric bypass who has acute clinical course has been complicated by acute cholecystitis and Klebsiella, E. coli bacteremia requiring a week of IV antibiotics, now complicated by acute non-ST elevation myocardial infarction and underwent urgent off-pump CABG x 3 (THOMAS-->LAD, SVG-->OM, SVG-->PDA) on 04/14. Sepsis/ Acute cholecystitis -History of E. coli and Klebsiella bacteremia on this admission -Status post cholecystectomy by Dr. Hall 04/24 -repeat blood cultures -pending -Continue Zosyn- will dc Meropenem -ID following. CABG x 3 (THOMAS-->LAD, SVG-->OM, SVG-->PDA) 04/14 NSTEMI CAD Hypotension -Blood pressure improved with 3 L fluid resuscitation -received 1 unit PRBC for hemoglobin 7.7 as this is trending down and patient was hypotensive; CBC today pending. - EF 60-65%, trace to mild MR on KELLY this admission - continue lipitor ,ASA -Further per cardiology and CT surgery Afib - now in SR on telemetry -continue Metoprolol, Cardizem and Amiodarone -started on Eliquis -cardiology/CT surgery following. Hematuria S/P cystoscopy- 04/11 Hematuria - resolved -voiding well- gross clear urine -Urology input appreciated Right arm pain, erythema and edema at the previous IV site> Will do US Doppler of the right arm to r/o DVT. Compresses and elevate arm DM II - SSI. Severe protein calorie malnutrition Very low prealbumin at 7. Patient also with low albumin, decreased p.o. intake. Add ensure to diet. Consult dietitian. DVT GI prophylaxis -Teds SCDs -Pharmacological DVT prophylaxis per surgery and urology -Pepcid Discussed with the patient, nurse Discharge plan. Discharge when improved and cleared by consultants. Needs rehab, [facility] week PT following
--- NOTE | 2018-04-29 18:12 | P.PNGS ---
Subjective Patient reports: feels better, tolerating a regular diet Interval history: DAILY PROGRESS NOTE FOR SURGICAL ATTENDING, DR. JADA MOORE Patient getting ultrasound of right upper extremity Says he feels a lot better than yesterday Tolerating a diet Physical Exam Vital signs: Vital Signs 04/28/18 19:00 04/28/18 20:00 04/28/18 20:10 Temperature 97.8 F Pulse Rate 82 80 Respiratory Rate 20 Blood Pressure 110/62 Pulse Oximetry 98 96 04/28/18 21:00 04/28/18 22:00 04/28/18 23:00 Temperature 98.8 F Pulse Rate 71 71 74 Respiratory Rate 18 Blood Pressure 107/69 Pulse Oximetry 98 04/29/18 00:00 04/29/18 01:00 04/29/18 02:00 Temperature Pulse Rate 77 76 81 Respiratory Rate Blood Pressure Pulse Oximetry 04/29/18 03:00 04/29/18 04:00 04/29/18 05:00 Temperature Pulse Rate 78 86 78 Respiratory Rate 16 Blood Pressure 125/60 Pulse Oximetry 96 04/29/18 06:00 04/29/18 07:00 04/29/18 08:00 Temperature 97.6 F Pulse Rate 74 79 80 Respiratory Rate 16 Blood Pressure 97/54 L Pulse Oximetry 96 04/29/18 09:00 04/29/18 10:00 04/29/18 11:00 Temperature 98.5 F Pulse Rate 95 H 88 84 Respiratory Rate 16 Blood Pressure 97/56 L Pulse Oximetry 97 04/29/18 12:00 04/29/18 13:00 04/29/18 14:00 Temperature Pulse Rate 74 87 80 Respiratory Rate Blood Pressure Pulse Oximetry 04/29/18 15:00 04/29/18 15:22 04/29/18 16:00 Temperature 98.5 F Pulse Rate 74 82 79 Respiratory Rate 16 Blood Pressure 97/54 L Pulse Oximetry 97 04/29/18 17:00 04/29/18 18:00 Temperature Pulse Rate 79 80 Respiratory Rate Blood Pressure Pulse Oximetry Intake & Output 04/28/18 04/29/18 04/29/18 18:59 06:59 18:59 Intake Total 1190 / 1190 580 / 580 830 / 830 Output Total 400 / 400 20 / 20 530 / 530 Balance 790 / 790 560 / 560 300 / 300 Weight 104.7 kg Intake: IV 350 / 350 100 / 100 50 / 50 Zosyn 3.375 GM Premix 50 ML @ 100 / 100 100 / 100 50 / 50 100 mls/hr IV.SIG Q6H [facility] Rx#: [id number] Oral 840 / 840 480 / 480 780 / 780 Output: Urine 400 / 400 450 / 450 Wound Drainage 20 / 20 80 / 80 # 1 Right ROCKY Drain 20 / 20 80 / 80 Other: # Voids 2 4 Date of Last Bowel Movement 04/28/18 04/29/18 04/29/18 # Bowel Movements 2 3 1 Narrative: : The patient is a very pleasant 67-year-old male, chronically ill, not in acute distress. Good respiratory effort Abdomen soft tolerating diet Getting ultrasound for edema in the right upper extremity - Urinary Catheter Management 3-way Urethral Cath placed during this visit: yes, but has since been removed by the nurse Reason for continuing: Decision to DC catheter Insertion date: 04/13/18 Insertion time: 00:00 Removal date: 04/19/18 Removal time: 10:30 Results - Labs 04/29/18 04:32 04/29/18 04:32 Laboratory Results - last 24 hr 12/14/18 12/15/18 12/15/18 22:54 04:32 04:32 WBC 10.8 RBC 3.05 L Hgb 8.9 L Hct 26.9 L MCV 88.0 MCH 29.3 MCHC 33.3 RDW 15.9 Plt Count 514 H MPV 7.2 Neut % (Auto) 72.4 H Lymph % (Auto) 15.9 [place] % (Auto) 9.2 H Eos % (Auto) 2.0 Baso % (Auto) 0.5 Neut # (Auto) 7.8 H Lymph # (Auto) 1.7 [place] # (Auto) 1.0 H Eos # (Auto) 0.2 Baso # (Auto) 0.0 WBC Differential . Differential Comment Auto diff final Sodium 144 Potassium 3.7 Chloride 109 H Carbon Dioxide 26.8 Anion Gap 8 BUN 9 Creatinine 0.70 Estimated GFR Greater than 89 POC Glucose 179 H Random Glucose 123 H Calcium 7.5 L Total Bilirubin 0.5 AST 34 ALT 31 Alkaline Phosphatase 102 Total Protein 5.8 L Albumin 1.7 L Prealbumin 04/29/18 04/29/18 04/29/18 04:32 10:07 12:07 WBC RBC Hgb Hct MCV MCH MCHC RDW Plt Count MPV Neut % (Auto) Lymph % (Auto) [place] % (Auto) Eos % (Auto) Baso % (Auto) Neut # (Auto) Lymph # (Auto) [place] # (Auto) Eos # (Auto) Baso # (Auto) WBC Differential Differential Comment Sodium Potassium Chloride Carbon Dioxide Anion Gap BUN Creatinine Estimated GFR POC Glucose 254 H 229 H Random Glucose Calcium Total Bilirubin AST ALT Alkaline Phosphatase Total Protein Albumin Prealbumin 7 L 04/29/18 18:01 WBC RBC Hgb Hct MCV MCH MCHC RDW Plt Count MPV Neut % (Auto) Lymph % (Auto) [place] % (Auto) Eos % (Auto) Baso % (Auto) Neut # (Auto) Lymph # (Auto) [place] # (Auto) Eos # (Auto) Baso # (Auto) WBC Differential Differential Comment Sodium Potassium Chloride Carbon Dioxide Anion Gap BUN Creatinine Estimated GFR POC Glucose 247 H Random Glucose Calcium Total Bilirubin AST ALT Alkaline Phosphatase Total Protein Albumin Prealbumin - Imaging Imaging: ITS Impressions Abdomen/Pelvis CT 03/19/18 10:38 CONCLUSION: 1. Short segmental concentric wall thickening is identified in the distal descending colon. Colon malignancy needs to be excluded. 2. Calcified gallstones with moderate distention of the gallbladder. 3. No other significant abnormality. Chest CTA 03/19/18 13:37 CONCLUSION: 1. No evidence of acute pulmonary embolism. 2. Mild subpleural airspace disease and reticulations which may be chronic. 3. No evidence of segmental or lobar lung consolidation. Abdomen/Pelvis CTA 03/22/18 00:00 CONCLUSION: 1. Prominent gallbladder distention and surrounding inflammatory changes consistent with cholecystitis 2. No acute vascular findings in the abdomen or pelvis. Carotid Doppler Study 03/25/18 12:49 CONCLUSION: 1. Right Internal Carotid Artery: No significant plaque or narrowing. 2. Left Internal Carotid Artery: No significant plaque or narrowing. Lower Extremity Ultrasound 03/25/18 12:49 CONCLUSION: Bilateral greater saphenous vein measurements as above. No acute abnormalities are demonstrated. Venous Doppler Study 03/25/18 12:49 CONCLUSION: Negative study. No venous thrombosis of either lower extremity. Percutaneous Cholangiogram 03/31/18 00:00 CONCLUSION: Uncomplicated percutaneous cholecystostomy as above. Cholangiopancreatography MRI 04/03/18 17:20 CONCLUSION: 1. Numerous filling defects within the central intrahepatic biliary ducts, common hepatic ducts, and common bile ducts. These represent stones and/or thrombus/hemorrhage. The linear defects are more likely related to hemorrhage. 2. Dilatation of the gallbladder with thickened gallbladder wall and a cholecystostomy tube in place. There is heterogeneous material within the gallbladder. Abdomen/Bladder Ultrasound 04/07/18 00:00 CONCLUSION: 1. No findings to account for the patient's hematuria. 2. Nonvisualization of the left kidney. 3. No evidence of hydronephrosis or nephrolithiasis in the right kidney. Abdomen X-Ray 04/21/18 00:00 CONCLUSION: Nonobstructive bowel gas pattern. Moderate to large stool throughout the colon. Chest X-Ray 04/25/18 00:00 CONCLUSION: Cardiomegaly with bibasilar airspace disease and probable pleural effusions. Assessment and Plan - Assessment (1) Status post laparoscopic cholecystectomy Code(s): Z90.49 - Acquired absence of other specified parts of digestive tract Status: Acute (2) Cholecystitis Code(s): K81.9 - Cholecystitis, unspecified Status: Acute Plan: 67 year old male with afib RVR; s/p cardiac cath; cholecystics -S/p CABG -PO lap burt with drain placement -BP better improved; SBP 100s -WBC trending down -Tolerating regular diet (3) Intractable abdominal pain Code(s): R10.9 - Unspecified abdominal pain Status: Acute (4) NSTEMI (non-ST elevated myocardial infarction) Code(s): I21.4 - Non-ST elevation (NSTEMI) myocardial infarction Status: Acute (5) Afib Code(s): I48.91 - Unspecified atrial fibrillation Status: Acute - Attending Attestation NOTE FOR SURGICAL ATTENDING, DR. JADA MOORE I attest that I had a [id number] encounter with the patient on the same day, and personally performed and documented my assessment and findings in the medical record. The following services were provided during this hospital visit: Chart data review, vital sign assessments/reviewing monitor data Review of consultations notes if present. Medication orders/review and/or management Ordering and/or reviewing lab tests Ordering and/or interpreting/reviewing x-rays and/or diagnostic studies Care of the patient and discussion of the patient with the care team Documentation time To help prompt me to consider important information that might be impacting today's encounter and assessment, Information from prior notes written by myself or my colleagues may have been "brought forward/copy and pasted" into today's note.
--- NOTE | 2018-04-29 18:33 | US ---
EXAM DATE: 04/29/2018 6:19 PM EST AGE/SEX: 67 years / Male INDICATIONS: Right arm swelling. CLINICAL DATA: This is the patient's initial encounter. Patient reports that signs and symptoms have been present for 4 - 6 days and indicates a pain score of 3/10. MEDICAL/SURGICAL HISTORY: Gastroesophageal reflux disease. Hypercholesterolemia. Diabetes. . Gastric bypass. COMPARISON: No prior exams available for comparison. FINDINGS: There is nonocclusive thrombus within the right IJ. The cephalic vein is not visualized, h owever the subclavian vein, axillary vein, brachial vein and basilic veins are patent. Other: None. CONCLUSION: 1. Nonocclusive thrombus right IJ. Electronically signed by: Connie Beaver MD Board Certified Radiologist 04/29/2018 6:31 PM EST
[2018-04-30] MEDS: Piperacil/Tazo 3.375 GM Premix 50 ML IV.SIG SCH ×4 (03:28→20:33)
[2018-04-30] MEDS: Insulin NovoLOG Aspart Correctional Sugar Inj SQ SCH ×5 (03:43→22:07)
[2018-04-30 04:34] LABS: Baso # (Auto) 0.1 th/mm3 (0.0-0.2); Baso % (Auto) 0.8 % (0.0-2.0); Eos # (Auto) 0.4 th/mm3 (0.0-0.4); Eos % (Auto) 3.8 % (0.0-4.0); Hemoglobin 9.3 gm/dL (13.0-17.0); Lymph % (Auto) 19.2 % (9.0-44.0); Mean Corpuscular HGB Conc 32.2 % (32.0-36.0); Mean Corpuscular Volume 90.1 fL (80.0-100.0); Mean Platelet Volume 7.6 fL (7.0-11.0); Mono # (Auto) 1.1 th/mm3 (0.0-0.9); Mono % (Auto) 10.6 % (0.0-8.0); Neut # (Auto) 6.7 th/mm3 (1.8-7.7); Neut % (Auto) 65.6 % (16.0-70.0); Platelet Count 535 th/mm3 (150-450); Red Blood Count 3.22 mil/mm3 (4.50-5.90); Red Cell Distribution Width 16.3 % (11.6-17.2); White Blood Count 10.2 th/mm3 (4.0-11.0)
[2018-04-30 04:56] LABS: Anion Gap 6 meq/L (5-15); Blood Urea Nitrogen 11 mg/dL (7-18); Calcium 7.6 mg/dL (8.5-10.1); Carbon Dioxide 28.8 meq/L (21.0-32.0); Chloride 107 meq/L (98-107); Glomerular Filtration Rate Greater Than 89 mL/min (>89); Glucose,Random 112 mg/dL (74-106); Potassium 3.5 meq/L (3.5-5.1); Sodium 142 meq/L (136-145)
[2018-04-30] MEDS: Docusate Sodium 100 MG Capsule PO SCH ×2 (08:24→20:31)
[2018-04-30] MEDS: Metoprolol Tartrate 25 MG Tablet PO SCH ×2 (08:24→20:32)
[2018-04-30] MEDS: Senna/Docusate Sodium 8.6/50 MG Tablet PO SCH ×2 (08:25→20:33)
[2018-04-30] MEDS: Multivitamin/Minerals Therapeutic Tablet PO SCH (08:25)
[2018-04-30] MEDS: Polyethylene Glycol 3350 17 GM Packet PO SCH (08:25)
[2018-04-30] MEDS: Amiodarone 200 MG Tablet PO SCH ×2 (08:25→20:31)
[2018-04-30] MEDS: Magnesium Oxide 400 MG Tablet PO SCH ×2 (08:25→20:32)
--- NOTE | 2018-04-30 09:00 | P.CONVS ---
History of Present Illness Service: Vascular surgery Consult date: 04/30/18 Reason for Consult: Right IJ DVT Primary Care Provider: Eusebio Chacko MD Chief Complaint: Right arm pain History of Present Illness: 67-year-old male status post CABG, laparoscopic cholecystectomy. He was complaining of right upper extremity pain and right upper extremity duplex was performed that showed thrombus in the right internal jugular vein. Vascular surgery was consulted for evaluation. Review of Systems All other systems reviewed negative except as stated in HPI [facility] - History History Provided By: Medical Record - Medical History Medical History: Medical History (Last Reviewed 04/29/18 @ 08:31 by Alexia Maza) Diabetes GERD (gastroesophageal reflux disease) Hypercholesteremia MDRO (multiple drug resistant organisms) resistance Onset Date: ~03/26/18 - Surgical History Surgical History: Surgical History (Last Reviewed 04/29/18 @ 08:31 by Alexia Maza) H/O gastric bypass - Family History Family History: Family History (Last Reviewed 04/27/18 @ 08:48 by Kirsten Justice) Other Family history non-contributory - Tobacco History Second Hand Smoke Exposure: Yes Tobacco Use In Past 30 Days: No Smoking Status: Former smoker - Alcohol History How Often Do You Have a Drink Containing Alcohol: Never - Substance Use History Substance History: No History of Abuse - Travel History Recent Travel in the [place] Within the Last 8 Weeks: No Recent Travel Out of the Country Within the Last 8 Weeks: No - Immunization History Tetanus Immunization: Unsure Hx Influenza Vaccine This Season: No Medications and Allergies Active Medications: Active Medications Acetaminophen (Tylenol) 650 mg PO Q4H PRN PRN Reason: Temp > 100.4 Last Admin: 03/27/18 09:04 Dose: 650 mg Hydrocodone Bitart/Acetaminophen ([place] 5/325) 1 tab PO Q3H PRN PRN Reason: PAIN SCALE 1 TO 5 Last Admin: 04/30/18 03:27 Dose: 1 tab Al Hydroxide/Mg Hydroxide (Milk Of Magnesia Liq) 30 ml PO Q12H PRN PRN Reason: Mild Constipation Last Admin: 04/17/18 14:37 Dose: 30 ml Albuterol (Duoneb Neb (Prn)) 1 ampul NEB Q2HR NEB PRN PRN Reason: WHEEZING Last Admin: 04/17/18 00:13 Dose: 1 ampul Amiodarone HCl (Cordarone) 400 mg PO BID [facility] Last Admin: 04/30/18 08:25 Dose: 400 mg Apixaban (Eliquis) 5 mg PO BID [facility] Last Admin: 04/30/18 08:25 Dose: 5 mg Aspirin (Aspirin Chew) 81 mg PO DAILY [facility] Last Admin: 04/30/18 08:25 Dose: 81 mg Atorvastatin Calcium (Lipitor) 20 mg PO DAILY [facility] Last Admin: 04/30/18 08:24 Dose: 20 mg Bisacodyl (Dulcolax Supp) 10 mg RECTAL DAILY PRN PRN Reason: SEVERE CONSITIPATION Last Admin: 04/23/18 03:26 Dose: 10 mg Bisacodyl (Dulcolax Ec) 10 mg PO ONCE ONE Last Admin: 03/30/18 17:35 Dose: 10 mg Dextrose (D50w Vial) 50 ml IV.PUSH UNSCH PRN PRN Reason: PER HYPOGLYCEMIA PROTOCOL Last Admin: 04/19/18 16:09 Dose: 50 ml Diltiazem HCl (Cardizem) 30 mg PO QID [facility] Last Admin: 04/15/18 13:21 Dose: Not Given Docusate Sodium (Colace) 100 mg PO BID [facility] Last Admin: 04/30/18 08:24 Dose: 100 mg Glucagon (Glucagon Inj) 1 mg OTHER PRN PRN PRN Reason: for Hypoglycemia Protocol Sodium Chloride (Ns Inj) 500 mls @ 30 mls/hr IV.SIG .Q10H [facility] Last Admin: 04/14/18 05:34 Dose: Not Given Piperacillin/Tazobactam/Dextrose (Zosyn 3.375 Gm Premix) 50 mls @ 100 mls/hr IV.SIG Q6H [facility] Last Admin: 04/30/18 08:26 Dose: 100 mls/hr Sodium Chloride (Ns Inj) 1,000 mls @ 0 mls/hr IV.SIG BOLUS PRN PRN Reason: SEE LABEL COMMENTS Last Infusion: 04/26/18 07:42 Dose: Infused Sodium Chloride (Ns Inj) 1,000 mls @ 84 mls/hr IV.CONT .[id number] [facility] Last Infusion: 04/30/18 08:27 Dose: 84 mls/hr Insulin Aspart (Novolog Insulin Correctional Sugar Inj) 0 unit SQ ACHS AND 3AM [facility]; Protocol Last Admin: 04/30/18 08:31 Dose: 0.1 unit Lactulose (Lactulose Liq) 30 ml PO DAILY PRN PRN Reason: SEVERE CONSITIPATION Last Admin: 04/23/18 08:22 Dose: 30 ml Magnesium Oxide (Mag-Ox) 400 mg PO BID [facility] Last Admin: 04/30/18 08:25 Dose: 400 mg Metformin HCl (Glucophage) 1,000 mg PO BID [facility] Last Admin: 04/16/18 10:08 Dose: Not Given Metoprolol Tartrate (Lopressor) 25 mg PO BID [facility] Last Admin: 04/30/18 08:24 Dose: 25 mg Miscellaneous (Pill Splitter) 1 each OTHER UNSCH PRN PRN Reason: PILL SPIT Morphine Sulfate (Morphine Inj) 2 mg IV.PUSH Q3H PRN PRN Reason: BREAKTHROUGH PAIN Last Admin: 04/30/18 05:15 Dose: 2 mg Multivitamins/Minerals (Theragran-M) 1 tab PO DAILY [facility] Last Admin: 04/30/18 08:25 Dose: 1 tab Ondansetron HCl (Zofran Inj) 4 mg IV.PUSH Q6H PRN PRN Reason: NAUSEA OR VOMITING Last Admin: 04/29/18 10:10 Dose: 4 mg Pantoprazole Sodium (Protonix) 40 mg PO DAILY [facility] Last Admin: 04/30/18 08:24 Dose: 40 mg Polyethylene Glycol (Miralax) 17 gm PO DAILY [facility] Last Admin: 04/30/18 08:25 Dose: Not Given Prochlorperazine Edisylate (Compazine Inj) 10 mg IV.PUSH Q6H PRN PRN Reason: NAUSEA Last Admin: 04/24/18 16:07 Dose: 10 mg Senna/Docusate Sodium (Carlotta-Colace) 1 tab PO BID [facility] Last Admin: 04/30/18 08:25 Dose: 1 tab Sennosides (Senokot) 17.2 mg PO Q12H PRN PRN Reason: Moderate Constipation Last Admin: 04/23/18 08:22 Dose: 17.2 mg Sodium Biphosphate/Sodium Phosphate (Fleets Enema (Adult)) 118 ml RECTAL UNSCH PRN PRN Reason: SEE LABEL COMMENTS Sodium Chloride (Ns Flush) 2 ml IV.FLUSH BID [facility] Last Admin: 04/30/18 08:26 Dose: 2 ml Sodium Chloride (Ns Flush) 2 ml IV.FLUSH PRN PRN PRN Reason: FLUSH AFTER USING IV ACCESS Allergies Allergy/AdvReac Type Severity Reaction Status Date / Time No Known Allergies Allergy Verified 03/19/18 10:28 Home Medications Medication Instructions Recorded Confirmed Type atorvastatin 20 mg PO DAILY 03/19/18 03/19/18 History liraglutide [Victoza 2-Sonido] 0.6 mg SUBCUT DAILY 03/19/18 03/19/18 History metformin 1,000 mg PO BID 03/19/18 03/19/18 History omeprazole-sodium bicarbonate 1 cap PO DAILY 03/19/18 03/19/18 History pantoprazole 20 mg PO DAILY 03/19/18 03/19/18 History Physical Exam Vital Signs / I&O: Vital Signs 04/29/18 09:00 04/29/18 10:00 04/29/18 11:00 Temperature 98.5 F Pulse Rate 95 H 88 84 Respiratory Rate 16 Blood Pressure 97/56 L Pulse Oximetry 97 04/29/18 12:00 04/29/18 13:00 04/29/18 14:00 Temperature Pulse Rate 74 87 80 Respiratory Rate Blood Pressure Pulse Oximetry 04/29/18 15:00 04/29/18 15:22 04/29/18 16:00 Temperature 98.5 F Pulse Rate 74 82 79 Respiratory Rate 16 Blood Pressure 97/54 L Pulse Oximetry 97 04/29/18 17:00 04/29/18 18:00 04/29/18 19:00 Temperature 98 F Pulse Rate 79 80 78 Respiratory Rate 16 Blood Pressure 117/60 Pulse Oximetry 98 04/29/18 19:46 04/29/18 20:00 04/29/18 20:57 Temperature Pulse Rate 77 Respiratory Rate Blood Pressure Pulse Oximetry 95 96 04/29/18 21:00 04/29/18 22:00 04/29/18 23:00 Temperature 97.9 F Pulse Rate 83 67 82 Respiratory Rate 16 Blood Pressure 96/60 L Pulse Oximetry 97 04/30/18 00:00 04/30/18 01:00 04/30/18 02:00 Temperature Pulse Rate 88 90 92 H Respiratory Rate Blood Pressure Pulse Oximetry 04/30/18 03:00 04/30/18 04:00 04/30/18 05:00 Temperature 98 F Pulse Rate 74 92 H 93 H Respiratory Rate 16 Blood Pressure 112/58 L Pulse Oximetry 96 04/30/18 06:00 04/30/18 07:51 04/30/18 07:52 Temperature 98.2 F Pulse Rate 75 72 72 Respiratory Rate 18 Blood Pressure 107/62 Pulse Oximetry 96 04/30/18 08:35 Temperature Pulse Rate Respiratory Rate Blood Pressure Pulse Oximetry 96 Intake & Output 04/29/18 04/30/18 04/30/18 18:59 06:59 18:59 Intake Total 830 / 830 870 / 870 Output Total 530 / 530 425 / 425 Balance 300 / 300 445 / 445 Weight 111.5 kg Intake: IV 50 / 50 150 / 150 Zosyn 3.375 GM Premix 50 ML @ 50 / 50 150 / 150 100 mls/hr IV.SIG Q6H [facility] Rx#: [id number] Oral 780 / 780 720 / 720 Output: Urine 450 / 450 375 / 375 Wound Drainage 80 / 80 50 / 50 # 1 Right ROCKY Drain 80 / 80 50 / 50 Other: # Voids 1 Date of Last Bowel Movement 04/29/18 04/29/18 04/29/18 # Bowel Movements 1 0 Neuro: Alert awake oriented x3 HEENT: Normocephalic atraumatic Neck: Supple, no swelling Heart: S1-S2 Lungs: Clear to auscultation Abdomen: Soft nontender nondistended Vascular: Right upper extremity without any swelling, palpable radial pulse. Laboratory Results - last 24 hr 04/29/18 04/29/18 04/29/18 10:07 12:07 18:01 WBC RBC Hgb Hct MCV MCH MCHC RDW Plt Count MPV Neut % (Auto) Lymph % (Auto) [place] % (Auto) Eos % (Auto) Baso % (Auto) Neut # (Auto) Lymph # (Auto) [place] # (Auto) Eos # (Auto) Baso # (Auto) WBC Differential Differential Comment Sodium Potassium Chloride Carbon Dioxide Anion Gap BUN Creatinine Estimated GFR POC Glucose 254 H 229 H 247 H Random Glucose Calcium 04/29/18 04/30/18 04/30/18 21:09 03:40 03:44 WBC 10.2 RBC 3.22 L Hgb 9.3 L Hct 29.0 L MCV 90.1 MCH 29.0 MCHC 32.2 RDW 16.3 Plt Count 535 H MPV 7.6 Neut % (Auto) 65.6 Lymph % (Auto) 19.2 [place] % (Auto) 10.6 H Eos % (Auto) 3.8 Baso % (Auto) 0.8 Neut # (Auto) 6.7 Lymph # (Auto) 2.0 [place] # (Auto) 1.1 H Eos # (Auto) 0.4 Baso # (Auto) 0.1 WBC Differential . Differential Comment Auto diff final Sodium Potassium Chloride Carbon Dioxide Anion Gap BUN Creatinine Estimated GFR POC Glucose 315 H 129 H Random Glucose Calcium 04/30/18 04/30/18 03:44 08:31 WBC RBC Hgb Hct MCV MCH MCHC RDW Plt Count MPV Neut % (Auto) Lymph % (Auto) [place] % (Auto) Eos % (Auto) Baso % (Auto) Neut # (Auto) Lymph # (Auto) [place] # (Auto) Eos # (Auto) Baso # (Auto) WBC Differential Differential Comment Sodium 142 Potassium 3.5 Chloride 107 Carbon Dioxide 28.8 Anion Gap 6 BUN 11 Creatinine 0.80 Estimated GFR Greater than 89 POC Glucose 126 H Random Glucose 112 H Calcium 7.6 L Microbiology 04/26/18 00:55 Aerobic Blood Culture - Preliminary Blood - Peripheral No growth in 3 days Anaerobic Blood Culture - Preliminary No growth in 3 days 04/26/18 01:00 Aerobic Blood Culture - Preliminary Blood - Peripheral No growth in 3 days Anaerobic Blood Culture - Preliminary No growth in 3 days Impressions Venous Doppler Study 04/29/18 00:00 CONCLUSION: 1. Nonocclusive thrombus right IJ. Assessment and Plan - Plan Chronic right internal jugular DVT I reviewed the report and discussed the findings with the on-call radiologist. The right internal jugular vein DVT is noted to be chronic. With no evidence of acute DVT There is internal jugular DVT is not contributing to the patient's symptoms. No anticoagulation or vascular intervention required at this time. Thank you for allowing us to participate in this patient care. If you have any questions do not hesitate to call my cell phone Tyler Browning MD [phone]
--- NOTE | 2018-04-30 09:00 | P.PNCA ---
Subjective Interval history: Pt feels well, no complaints Medications and Allergies Active Medications: Active Medications Acetaminophen (Tylenol) 650 mg PO Q4H PRN PRN Reason: Temp > 100.4 Last Admin: 03/27/18 09:04 Dose: 650 mg Hydrocodone Bitart/Acetaminophen ([place] 5/325) 1 tab PO Q3H PRN PRN Reason: PAIN SCALE 1 TO 5 Last Admin: 04/30/18 03:27 Dose: 1 tab Al Hydroxide/Mg Hydroxide (Milk Of Magnsofia Liq) 30 ml PO Q12H PRN PRN Reason: Mild Constipation Last Admin: 04/17/18 14:37 Dose: 30 ml Albuterol (Duoneb Neb (Prn)) 1 ampul NEB Q2HR NEB PRN PRN Reason: WHEEZING Last Admin: 04/17/18 00:13 Dose: 1 ampul Amiodarone HCl (Cordarone) 400 mg PO BID [facility] Last Admin: 04/30/18 08:25 Dose: 400 mg Apixaban (Eliquis) 5 mg PO BID [facility] Last Admin: 04/30/18 08:25 Dose: 5 mg Aspirin (Aspirin Chew) 81 mg PO DAILY [facility] Last Admin: 04/30/18 08:25 Dose: 81 mg Atorvastatin Calcium (Lipitor) 20 mg PO DAILY [facility] Last Admin: 04/30/18 08:24 Dose: 20 mg Bisacodyl (Dulcolax Supp) 10 mg RECTAL DAILY PRN PRN Reason: SEVERE CONSITIPATION Last Admin: 04/23/18 03:26 Dose: 10 mg Bisacodyl (Dulcolax Ec) 10 mg PO ONCE ONE Last Admin: 03/30/18 17:35 Dose: 10 mg Dextrose (D50w Vial) 50 ml IV.PUSH UNSCH PRN PRN Reason: PER HYPOGLYCEMIA PROTOCOL Last Admin: 04/19/18 16:09 Dose: 50 ml Diltiazem HCl (Cardizem) 30 mg PO QID [facility] Last Admin: 04/15/18 13:21 Dose: Not Given Docusate Sodium (Colace) 100 mg PO BID [facility] Last Admin: 04/30/18 08:24 Dose: 100 mg Glucagon (Glucagon Inj) 1 mg OTHER PRN PRN PRN Reason: for Hypoglycemia Protocol Sodium Chloride (Ns Inj) 500 mls @ 30 mls/hr IV.SIG .Q10H [facility] Last Admin: 04/14/18 05:34 Dose: Not Given Piperacillin/Tazobactam/Dextrose (Zosyn 3.375 Gm Premix) 50 mls @ 100 mls/hr IV.SIG Q6H [facility] Last Admin: 04/30/18 08:26 Dose: 100 mls/hr Sodium Chloride (Ns Inj) 1,000 mls @ 0 mls/hr IV.SIG BOLUS PRN PRN Reason: SEE LABEL COMMENTS Last Infusion: 04/26/18 07:42 Dose: Infused Sodium Chloride (Ns Inj) 1,000 mls @ 84 mls/hr IV.CONT .[id number] [facility] Last Infusion: 04/30/18 08:27 Dose: 84 mls/hr Insulin Aspart (Novolog Insulin Correctional Sugar Inj) 0 unit SQ ACHS AND 3AM [facility]; Protocol Last Admin: 04/30/18 08:31 Dose: 0.1 unit Lactulose (Lactulose Liq) 30 ml PO DAILY PRN PRN Reason: SEVERE CONSITIPATION Last Admin: 04/23/18 08:22 Dose: 30 ml Magnesium Oxide (Mag-Ox) 400 mg PO BID [facility] Last Admin: 04/30/18 08:25 Dose: 400 mg Metformin HCl (Glucophage) 1,000 mg PO BID [facility] Last Admin: 04/16/18 10:08 Dose: Not Given Metoprolol Tartrate (Lopressor) 25 mg PO BID [facility] Last Admin: 04/30/18 08:24 Dose: 25 mg Miscellaneous (Pill Splitter) 1 each OTHER UNSCH PRN PRN Reason: PILL SPIT Morphine Sulfate (Morphine Inj) 2 mg IV.PUSH Q3H PRN PRN Reason: BREAKTHROUGH PAIN Last Admin: 04/30/18 05:15 Dose: 2 mg Multivitamins/Minerals (Theragran-M) 1 tab PO DAILY [facility] Last Admin: 04/30/18 08:25 Dose: 1 tab Ondansetron HCl (Zofran Inj) 4 mg IV.PUSH Q6H PRN PRN Reason: NAUSEA OR VOMITING Last Admin: 04/29/18 10:10 Dose: 4 mg Pantoprazole Sodium (Protonix) 40 mg PO DAILY [facility] Last Admin: 04/30/18 08:24 Dose: 40 mg Polyethylene Glycol (Miralax) 17 gm PO DAILY [facility] Last Admin: 04/30/18 08:25 Dose: Not Given Prochlorperazine Edisylate (Compazine Inj) 10 mg IV.PUSH Q6H PRN PRN Reason: NAUSEA Last Admin: 04/24/18 16:07 Dose: 10 mg Senna/Docusate Sodium (Carlotta-Colace) 1 tab PO BID [facility] Last Admin: 04/30/18 08:25 Dose: 1 tab Sennosides (Senokot) 17.2 mg PO Q12H PRN PRN Reason: Moderate Constipation Last Admin: 04/23/18 08:22 Dose: 17.2 mg Sodium Biphosphate/Sodium Phosphate (Fleets Enema (Adult)) 118 ml RECTAL UNSCH PRN PRN Reason: SEE LABEL COMMENTS Sodium Chloride (Ns Flush) 2 ml IV.FLUSH BID [facility] Last Admin: 04/30/18 08:26 Dose: 2 ml Sodium Chloride (Ns Flush) 2 ml IV.FLUSH PRN PRN PRN Reason: FLUSH AFTER USING IV ACCESS Allergies Allergy/AdvReac Type Severity Reaction Status Date / Time No Known Allergies Allergy Verified 03/19/18 10:28 Home Medications Medication Instructions Recorded Confirmed Type atorvastatin 20 mg PO DAILY 03/19/18 03/19/18 History liraglutide [Victoza 2-Sonido] 0.6 mg SUBCUT DAILY 03/19/18 03/19/18 History metformin 1,000 mg PO BID 03/19/18 03/19/18 History omeprazole-sodium bicarbonate 1 cap PO DAILY 03/19/18 03/19/18 History pantoprazole 20 mg PO DAILY 03/19/18 03/19/18 History Physical Exam Vital signs: Vital Signs 04/29/18 09:00 04/29/18 10:00 04/29/18 11:00 Temperature 98.5 F Pulse Rate 95 H 88 84 Respiratory Rate 16 Blood Pressure 97/56 L Pulse Oximetry 97 04/29/18 12:00 04/29/18 13:00 04/29/18 14:00 Temperature Pulse Rate 74 87 80 Respiratory Rate Blood Pressure Pulse Oximetry 04/29/18 15:00 04/29/18 15:22 04/29/18 16:00 Temperature 98.5 F Pulse Rate 74 82 79 Respiratory Rate 16 Blood Pressure 97/54 L Pulse Oximetry 97 04/29/18 17:00 04/29/18 18:00 04/29/18 19:00 Temperature 98 F Pulse Rate 79 80 78 Respiratory Rate 16 Blood Pressure 117/60 Pulse Oximetry 98 04/29/18 19:46 04/29/18 20:00 04/29/18 20:57 Temperature Pulse Rate 77 Respiratory Rate Blood Pressure Pulse Oximetry 95 96 04/29/18 21:00 04/29/18 22:00 04/29/18 23:00 Temperature 97.9 F Pulse Rate 83 67 82 Respiratory Rate 16 Blood Pressure 96/60 L Pulse Oximetry 97 04/30/18 00:00 04/30/18 01:00 04/30/18 02:00 Temperature Pulse Rate 88 90 92 H Respiratory Rate Blood Pressure Pulse Oximetry 04/30/18 03:00 04/30/18 04:00 04/30/18 05:00 Temperature 98 F Pulse Rate 74 92 H 93 H Respiratory Rate 16 Blood Pressure 112/58 L Pulse Oximetry 96 04/30/18 06:00 04/30/18 07:51 04/30/18 07:52 Temperature 98.2 F Pulse Rate 75 72 72 Respiratory Rate 18 Blood Pressure 107/62 Pulse Oximetry 96 04/30/18 08:35 Temperature Pulse Rate Respiratory Rate Blood Pressure Pulse Oximetry 96 Intake & Output 04/29/18 04/30/18 04/30/18 18:59 06:59 18:59 Intake Total 830 / 830 870 / 870 Output Total 530 / 530 425 / 425 Balance 300 / 300 445 / 445 Weight 111.5 kg Intake: IV 50 / 50 150 / 150 Zosyn 3.375 GM Premix 50 ML @ 50 / 50 150 / 150 100 mls/hr IV.SIG Q6H [facility] Rx#: [id number] Oral 780 / 780 720 / 720 Output: Urine 450 / 450 375 / 375 Wound Drainage 80 / 80 50 / 50 # 1 Right ROCKY Drain 80 / 80 50 / 50 Other: # Voids 1 Date of Last Bowel Movement 04/29/18 04/29/18 04/29/18 # Bowel Movements 1 0 - Constitutional no acute distress - Routine Neck Exam Present: supple. Absent: JVD - Routine Respiratory Exam Present: CTA bilaterally. Absent: accessory muscle use - Routine Cardiovascular Exam Present: RRR. Absent: murmur - Routine Abdominal Exam Present: soft - Routine Extremities Exam Absent: edema - Routine Neurological Exam Present: alert - Routine Psychiatric Exam Present: normal affect - Urinary Catheter Management 3-way Urethral Cath placed during this visit: yes, but has since been removed by the nurse Reason for continuing: Decision to DC catheter Insertion date: 04/13/18 Insertion time: 00:00 Removal date: 04/19/18 Removal time: 10:30 Results 04/30/18 03:44 04/30/18 03:44 Cardiac Enzymes 04/29/18 Range/Units 04:32 AST 34 (15-37) U/L CBC 04/29/18 04/30/18 Range/Units 04:32 03:44 WBC 10.8 10.2 (4.0-11.0) th/mm3 RBC 3.05 L 3.22 L (4.50-5.90) mil/mm3 Hgb 8.9 L 9.3 L (13.0-17.0) gm/dL Hct 26.9 L 29.0 L (39.0-51.0) % Plt Count 514 H 535 H (150-450) th/mm3 Neut # (Auto) 7.8 H 6.7 (1.8-7.7) th/mm3 Lymph # (Auto) 1.7 2.0 (1.0-4.8) th/mm3 [place] # (Auto) 1.0 H 1.1 H (0.0-0.9) th/mm3 Eos # (Auto) 0.2 0.4 (0.0-0.4) th/mm3 Baso # (Auto) 0.0 0.1 (0.0-0.2) th/mm3 Comprehensive Metabolic Panel 04/29/18 04/30/18 Range/Units 04:32 03:44 Sodium 144 142 (136-145) meq/L Potassium 3.7 3.5 (3.5-5.1) meq/L Chloride 109 H 107 (98-107) meq/L Carbon Dioxide 26.8 28.8 (21.0-32.0) meq/L BUN 9 11 (7-18) mg/dL Creatinine 0.70 0.80 (0.60-1.30) mg/dL Calcium 7.5 L 7.6 L (8.5-10.1) mg/dL AST 34 (15-37) U/L ALT 31 (12-78) U/L Alkaline Phosphatase 102 (45-117) U/L Total Protein 5.8 L (6.4-8.2) g/dL Albumin 1.7 L (3.4-5.0) g/dL Intake and Output 04/29/18 04/30/18 04/30/18 22:59 06:59 14:59 Intake Total 930 / 930 770 / 770 Output Total 530 / 530 425 / 425 Balance 400 / 400 345 / 345 Intake: IV 150 / 150 50 / 50 Zosyn 3.375 GM Premix 50 ML @ 150 / 150 50 / 50 100 mls/hr IV.SIG Q6H [facility] Rx#: [id number] Oral 780 / 780 720 / 720 Output: Urine 450 / 450 375 / 375 Wound Drainage 80 / 80 50 / 50 # 1 Right ROCKY Drain 80 / 80 50 / 50 Other: # Voids 1 Date of Last Bowel Movement 04/29/18 04/29/18 04/29/18 # Bowel Movements 1 0 Weight 111.5 kg - Imaging and Cardiology Imaging: Impressions Venous Doppler Study 04/29/18 00:00 CONCLUSION: 1. Nonocclusive thrombus right IJ. Assessment and Plan - Assessment (1) NSTEMI (non-ST elevated myocardial infarction) Code(s): I21.4 - Non-ST elevation (NSTEMI) myocardial infarction Status: Acute (2) Afib Code(s): I48.91 - Unspecified atrial fibrillation Status: Acute (3) SIRS (systemic inflammatory response syndrome) Code(s): R65.10 - Systemic inflammatory response syndrome (SIRS) of non- infectious origin without acute organ dysfunction Status: Acute (4) Intractable abdominal pain Code(s): R10.9 - Unspecified abdominal pain Status: Acute - Plan 1) Abdominal pain/nausea/emesis Found to have cholecystitis s/p cholecystectomy 2) NSTEMI Found to have multivessel CAD CABG x3 [facility] to LAD SVG to OM SVG to PDA 3) Afib New onset 04/15/18 Cardizem stopped due to being on vasopressor, con't Amiodarone 04/16/18 Converted back to AFib overnight, increase Metoprolol, may need to be started back on Cardizem Will need to consider anticoagulation when felt he can be restarted after cholecystectomy Will wait for Hgb to stabilize and general surgery to give the OK Once BP stable, need to restart AV mya blocking agents Currently stable on Amiodarone 4) Bacteremia KELLY negative for vegetation, no signs of endocarditis 5) Hematuria ASA restarted 6) MRCP showing multiple stones in the common bile duct Off tele now, would restart; await surgery ok to initiate anticoagulation
--- NOTE | 2018-04-30 09:20 | P.PNCV ---
- Note Subjective/Hospital Course: 67-year-old male who presented to [facility] 03/19/18 due to nausea, vomiting and abdominal pain. He states that he was awakened at 6 a.m. with left -sided flank pain and left mid back pain radiating to the left lower quadrant. He developed nausea and vomiting secondary to the pain. he was incidentally found to have cholecystitis, perc burt tube was placed , Trop was + underwent cardiac cath by Dr Pérez : mid LAD 80%, Left Circ 70 % lesion, RCA 100% occluded in the mid portion with [id number] and right-to- right collaterals supplying the distal portion. Blood cultures grew klebsiella pneumoniae and E coli , followed by ID and recommended to at least complete one week course of IV antibiotics prior to surgery PAST MEDICAL HISTORY: Diabetes, GERD, Hyperlipidemia, morbid obesity with BMI 40, History of gastric bypass. 03/27 pt is pain free at this time , has perc burt drain US of lower ext neg for DVT, Carotid US no stenosis continues on IV antibiotics per ID : VIVIENNE cefepime IV Ceftriaxone IV once a day (stop date: 04/03/2018) after which we will repeat BCX on 04/04/18. If these repeat bcx are negative at 48 hrs and patient clinically doing well will clear him from CABG. VIVIENNE Flagyl consult PT 03/28 pain free will follow / schedule for surgery next week when cleared by ID 03/29 still has some mild right flank pain burt drain in place no chest pain 04/03 c/o of nausea and vomiting since last night , also some abdominal pain for repeat CT abdomen today also repeat Blood cultures pending 04/05 still complaining of nausea and vomiting burt drain in place 04/10 events noted over weekend blood culture neg 04/03 , off all antibiotics still has burt drain , nursing flushing periodically per Uro / will perform bedside cystoscopy at bedside this week / urine has cleared since Heparin vivienne General surgery / will see after 3-4 weeks after CABG to al for cholecystectomy will discuss timing for surgery with Dr Carlin no further complaints of nausea / vomiting 04/11 resting comfortably await bedside cystoscopy/ and clearance from urology then plan for timing of CABG, needs to be placed back on ASA 04/12 cleared by Urology for surgery " s/p bedside [place] cystoscopy did not show any abnormalities within the bladder there were no bladder tumors identified. Retroflex examination of the bladder neck showed an area of friability at the prostate which was most likely the area that was bleeding at the time. per Urology: recommend placement of 3 way scales prior to surgery pt ambulating with walker, no nausea scheduled for surgery on tuesday will need 3 way cath placed by urology on 04/[address] catheter placed by Urology stable for surgery in am 04/14 SURGICAL PROCEDURE 1. Urgent Off-pump Coronary Artery Bypass Grafting x 3 with Left Internal Mammary Artery (THOMAS) to Left Anterior Descending (LAD), reverse saphenous vein graft to obtuse Marginal branch of the left Circumflex artery, reverse saphenous vein graft to the posterior Descending branch of the right Coronary artery 2. Left leg Endoscopic Vein [place] 3. Ultrasound-guided dissection of the LAD 4. Intraoperative Vein Mapping. 04/15 Doing well clinically Weaning [place]-Synephrine drip as tolerated Awaiting LFT results Maintain in ICU Continue chest tube to drainage 04/16 Clinically and hematocrit stable New onset atrial fibrillation last night. Presently in normal sinus rhythm on amiodarone drip Increase beta-janeth to 25 twice daily Okay to transfer to [facility] later today 04/17 converted to NSR transition to po amiodarone leave chest tubes in today / clots / bloody drainage OOB ambulate, gentle diuresis 04/18 converted to NSR, continue amiodarone po f/u labs in am if goes back into afib, will need NOAC chest tube dc without difficulty f/u CXR in am PT/OT eval for transfer to [place] next 24-48hrs 04/19 discharge summary completed had issues with low blood sugars levemir dc insulin sliding scale dosing decreased 04/20 BGM's improved discussed with Dr Pérez will start eliquis, dc plavix stable to transfer to rehab today 04/21 pt having reoccurring nausea and vomiting with some abdominal discomfort does not feel as well today Dr Hall notified , ok to hold eliquis 48hrs prior to any procedure ok for Lap burt per Dr Carlin 04/22/18 No c/o presently. preop for Tuesday for CCx 04/23/18 No complaints today. Preop for CCX 04/24 for Lap burt today resume eliquis when ok with General surgery eval for [place]/ SNF when cleared by general surgery 04/28 Clinically better today Had episode of atrial fibrillation. Treated with IV amiodarone. Presently in normal sinus rhythm on p.o. amiodarone Will need anticoagulation following stabilization of his hemoglobin levels. 04/30 Clinically stable Okay to discharge from CT surgery standpoint Objective: Vital Signs - 24 hr 04/29/18 10:00 04/29/18 11:00 04/29/18 12:00 Temperature 98.5 F Pulse Rate 88 84 74 Respiratory Rate 16 Blood Pressure 97/56 L Pulse Oximetry 97 04/29/18 13:00 04/29/18 14:00 04/29/18 15:00 Temperature Pulse Rate 87 80 74 Respiratory Rate Blood Pressure Pulse Oximetry 04/29/18 15:22 04/29/18 16:00 04/29/18 17:00 Temperature 98.5 F Pulse Rate 82 79 79 Respiratory Rate 16 Blood Pressure 97/54 L Pulse Oximetry 97 04/29/18 18:00 04/29/18 19:00 04/29/18 19:46 Temperature 98 F Pulse Rate 80 78 Respiratory Rate 16 Blood Pressure 117/60 Pulse Oximetry 98 95 04/29/18 20:00 04/29/18 20:57 04/29/18 21:00 Temperature Pulse Rate 77 83 Respiratory Rate Blood Pressure Pulse Oximetry 96 04/29/18 22:00 04/29/18 23:00 04/30/18 00:00 Temperature 97.9 F Pulse Rate 67 82 88 Respiratory Rate 16 Blood Pressure 96/60 L Pulse Oximetry 97 04/30/18 01:00 04/30/18 02:00 04/30/18 03:00 Temperature 98 F Pulse Rate 90 92 H 74 Respiratory Rate 16 Blood Pressure 112/58 L Pulse Oximetry 96 04/30/18 04:00 04/30/18 05:00 04/30/18 06:00 Temperature Pulse Rate 92 H 93 H 75 Respiratory Rate Blood Pressure Pulse Oximetry 04/30/18 07:51 04/30/18 07:52 04/30/18 08:35 Temperature 98.2 F Pulse Rate 72 72 Respiratory Rate 18 Blood Pressure 107/62 Pulse Oximetry 96 96 Labs: Laboratory Results - last 12 hr 04/30/18 04/30/18 04/30/18 03:40 03:44 03:44 WBC 10.2 RBC 3.22 L Hgb 9.3 L Hct 29.0 L MCV 90.1 MCH 29.0 MCHC 32.2 RDW 16.3 Plt Count 535 H MPV 7.6 Neut % (Auto) 65.6 Lymph % (Auto) 19.2 [place] % (Auto) 10.6 H Eos % (Auto) 3.8 Baso % (Auto) 0.8 Neut # (Auto) 6.7 Lymph # (Auto) 2.0 [place] # (Auto) 1.1 H Eos # (Auto) 0.4 Baso # (Auto) 0.1 WBC Differential . Differential Comment Auto diff final Sodium 142 Potassium 3.5 Chloride 107 Carbon Dioxide 28.8 Anion Gap 6 BUN 11 Creatinine 0.80 Estimated GFR Greater than 89 POC Glucose 129 H Random Glucose 112 H Calcium 7.6 L 04/30/18 08:31 WBC RBC Hgb Hct MCV MCH MCHC RDW Plt Count MPV Neut % (Auto) Lymph % (Auto) [place] % (Auto) Eos % (Auto) Baso % (Auto) Neut # (Auto) Lymph # (Auto) [place] # (Auto) Eos # (Auto) Baso # (Auto) WBC Differential Differential Comment Sodium Potassium Chloride Carbon Dioxide Anion Gap BUN Creatinine Estimated GFR POC Glucose 126 H Random Glucose Calcium Result Diagrams: 04/30/18 03:44 04/30/18 03:44 - Plan (1) Coronary artery disease involving [place] coronary artery Plan: ASA, statin, BB , amiodarone for lap burt today pulm toileting nebs, ezpap , acapella OOB/ PT (3) Afib Plan: in NSR > afib transition to po amiodarone (4) Cholecystitis Plan: general surgery : for Lap burt today
--- NOTE | 2018-04-30 12:54 | P.PN ---
Subjective Interval history: He is in the chair appears tired. Still with significant nausea however is able to eat without vomiting. Still some pain in his right arm previous IV site. No fever chills overnight. No palpitations. Denies chest pain. Says he feels he is improving slowly and is looking forward to go to rehab soon. Physical Exam Vital signs: Vital Signs 04/29/18 13:00 04/29/18 14:00 04/29/18 15:00 Temperature Pulse Rate 87 80 74 Respiratory Rate Blood Pressure Pulse Oximetry 04/29/18 15:22 04/29/18 16:00 04/29/18 17:00 Temperature 98.5 F Pulse Rate 82 79 79 Respiratory Rate 16 Blood Pressure 97/54 L Pulse Oximetry 97 04/29/18 18:00 04/29/18 19:00 04/29/18 19:46 Temperature 98 F Pulse Rate 80 78 Respiratory Rate 16 Blood Pressure 117/60 Pulse Oximetry 98 95 04/29/18 20:00 04/29/18 20:57 04/29/18 21:00 Temperature Pulse Rate 77 83 Respiratory Rate Blood Pressure Pulse Oximetry 96 04/29/18 22:00 04/29/18 23:00 04/30/18 00:00 Temperature 97.9 F Pulse Rate 67 82 88 Respiratory Rate 16 Blood Pressure 96/60 L Pulse Oximetry 97 04/30/18 01:00 04/30/18 02:00 04/30/18 03:00 Temperature 98 F Pulse Rate 90 92 H 74 Respiratory Rate 16 Blood Pressure 112/58 L Pulse Oximetry 96 04/30/18 04:00 04/30/18 05:00 04/30/18 06:00 Temperature Pulse Rate 92 H 93 H 75 Respiratory Rate Blood Pressure Pulse Oximetry 04/30/18 07:51 04/30/18 07:52 04/30/18 08:00 Temperature 98.2 F Pulse Rate 72 72 69 Respiratory Rate 18 Blood Pressure 107/62 Pulse Oximetry 96 04/30/18 08:35 04/30/18 09:21 04/30/18 10:40 Temperature Pulse Rate 69 66 Respiratory Rate Blood Pressure Pulse Oximetry 96 04/30/18 11:28 04/30/18 11:30 04/30/18 12:13 Temperature 98 F Pulse Rate 66 66 68 Respiratory Rate 18 Blood Pressure 88/51 L Pulse Oximetry 98 Intake & Output 04/29/18 04/30/18 04/30/18 18:59 06:59 18:59 Intake Total 830 / 830 870 / 870 50 / 50 Output Total 530 / 530 425 / 425 Balance 300 / 300 445 / 445 50 / 50 Weight 111.5 kg Intake: IV 50 / 50 150 / 150 50 / 50 Zosyn 3.375 GM Premix 50 ML @ 50 / 50 150 / 150 50 / 50 100 mls/hr IV.SIG Q6H THOMAS Rx#: [id number] Oral 780 / 780 720 / 720 Output: Urine 450 / 450 375 / 375 Wound Drainage 80 / 80 50 / 50 # 1 Right ROCKY Drain 80 / 80 50 / 50 Other: # Voids 1 Date of Last Bowel Movement 04/29/18 04/29/18 04/29/18 # Bowel Movements 1 0 Narrative: GENERAL: The patient is a very pleasant 67-year-old male, chronically ill, not in acute distress. Respiratory: Decreased breath sounds. Cardiovascular: Irregularly irregular Abdomen: Bowel sounds diminished, soft, no tenderness. Post laparoscopic cholecystectomy. J Extremities: No clubbing or cyanosis. Right arm with redness and pain at the previous IV site. Trace edema at the lower extremities. Muscle wasting. Weak handgrip. Skin: Pale. Mucous membranes slightly dry. NEUROLOGIC: Nonfocal. - Urinary Catheter Management 3-way Urethral Cath placed during this visit: yes, but has since been removed by the nurse Reason for continuing: Decision to DC catheter Insertion date: 04/13/18 Insertion time: 00:00 Removal date: 04/19/18 Removal time: 10:30 Results - Labs CBC & Chem 7: 04/30/18 03:44 04/30/18 03:44 Laboratory Results - last 24 hr 04/29/18 04/29/18 04/30/18 18:01 21:09 03:40 WBC RBC Hgb Hct MCV MCH MCHC RDW Plt Count MPV Neut % (Auto) Lymph % (Auto) [place] % (Auto) Eos % (Auto) Baso % (Auto) Neut # (Auto) Lymph # (Auto) [place] # (Auto) Eos # (Auto) Baso # (Auto) WBC Differential Differential Comment Sodium Potassium Chloride Carbon Dioxide Anion Gap BUN Creatinine Estimated GFR POC Glucose 247 H 315 H 129 H Random Glucose Calcium 1204/30/18 04/30/18 03:44 03:44 08:31 WBC 10.2 RBC 3.22 L Hgb 9.3 L Hct 29.0 L MCV 90.1 MCH 29.0 MCHC 32.2 RDW 16.3 Plt Count 535 H MPV 7.6 Neut % (Auto) 65.6 Lymph % (Auto) 19.2 [place] % (Auto) 10.6 H Eos % (Auto) 3.8 Baso % (Auto) 0.8 Neut # (Auto) 6.7 Lymph # (Auto) 2.0 [place] # (Auto) 1.1 H Eos # (Auto) 0.4 Baso # (Auto) 0.1 WBC Differential . Differential Comment Auto diff final Sodium 142 Potassium 3.5 Chloride 107 Carbon Dioxide 28.8 Anion Gap 6 BUN 11 Creatinine 0.80 Estimated GFR Greater than 89 POC Glucose 126 H Random Glucose 112 H Calcium 7.6 L 04/30/18 09:53 WBC RBC Hgb Hct MCV MCH MCHC RDW Plt Count MPV Neut % (Auto) Lymph % (Auto) [place] % (Auto) Eos % (Auto) Baso % (Auto) Neut # (Auto) Lymph # (Auto) [place] # (Auto) Eos # (Auto) Baso # (Auto) WBC Differential Differential Comment Sodium Potassium Chloride Carbon Dioxide Anion Gap BUN Creatinine Estimated GFR POC Glucose 207 H Random Glucose Calcium Microbiology 04/26/18 00:55 Blood - Peripheral Aerobic Blood Culture - Preliminary No growth in 4 days 04/26/18 00:55 Blood - Peripheral Anaerobic Blood Culture - Preliminary No growth in 4 days 04/26/18 01:00 Blood - Peripheral Aerobic Blood Culture - Preliminary No growth in 4 days 04/26/18 01:00 Blood - Peripheral Anaerobic Blood Culture - Preliminary No growth in 4 days - Imaging Impressions Venous Doppler Study 04/29/18 00:00 CONCLUSION: 1. Nonocclusive thrombus right IJ. - Procedures CABG X3 ON 04-14 THOMAS-->LAD, SVG-->OM, SVG-->PDA PREPROCEDURE DIAGNOSES 1. Severe Multi Vessel Coronary Artery Disease. 2. Acute Myocardial Infarction (NSTEMI) 3. Acute Cholecystitis s/p percutaneous cholecystostomy tube placement 4. Sepsis and Bacteremia 5. Severe Pulmonary Insufficiency 6. Intramyocardial Coronary Vessels POSTPROCEDURE DIAGNOSES Same SURGICAL PROCEDURE 1. Urgent Off-pump Coronary Artery Bypass Grafting x 3 with Left Internal Mammary Artery (THOMAS) to Left Anterior Descending (LAD), reverse saphenous vein graft to obtuse Marginal branch of the left Circumflex artery, reverse saphenous vein graft to the posterior Descending branch of the right Coronary artery 2. Left leg Endoscopic Vein [place] 3. Ultrasound-guided dissection of the LAD 4. Intraoperative Vein Mapping. Cholecystectomy 04/24/2018 Assessment and Plan - Assessment (1) Intractable abdominal pain Code(s): R10.9 - Unspecified abdominal pain Status: Acute - Plan Mr. Bridges is a pleasant 67-year-old male with history of prior gastric bypass who has acute clinical course has been complicated by acute cholecystitis and Klebsiella, E. coli bacteremia requiring a week of IV antibiotics, now complicated by acute non-ST elevation myocardial infarction and underwent urgent off-pump CABG x 3 (THOMAS-->LAD, SVG-->OM, SVG-->PDA) on 04/14. Sepsis/ Acute cholecystitis -History of E. coli and Klebsiella bacteremia on this admission -Status post cholecystectomy by Dr. Hall 04/24 -repeat blood cultures -pending -Continue Zosyn- will dc Meropenem -ID following. CABG x 3 (THOMAS-->LAD, SVG-->OM, SVG-->PDA) 04/14 NSTEMI CAD Hypotension -Blood pressure improved with 3 L fluid resuscitation -received 1 unit PRBC for hemoglobin 7.7 as this is trending down and patient was hypotensive; CBC today pending. - EF 60-65%, trace to mild MR on KELLY this admission - continue lipitor ,ASA -Further per cardiology and CT surgery Afib - now in SR on telemetry -continue Metoprolol, Cardizem and Amiodarone -started on Eliquis -cardiology/CT surgery following. Hematuria S/P cystoscopy- 04/11 Hematuria - resolved -voiding well- gross clear urine -Urology input appreciated Right arm pain, erythema and edema at the previous IV site. 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 Compresses and elevate arm. Seen by Dr Myers recommends conservative management. DM II - SSI. Severe protein calorie malnutrition Very low prealbumin at 7. Patient also with low albumin, decreased p.o. intake. Add ensure to diet. Consult dietitian. DVT GI prophylaxis -Teds SCDs -Pharmacological DVT prophylaxis per surgery and urology -Pepcid Discussed with the patient, nurse Discharge plan. Discharge when improved and cleared by consultants. Needs rehab, likely [facility] next week PT following
--- NOTE | 2018-04-30 15:52 | P.DIET ---
Nutritional Evaluation Type of nutrition evaluation: follow-up Nutrition screening: MDC (diet education) Screening comments: 04[place]28/18 [facility] [place] Poor PO Intake Subjective Oral Diet Tolerance Assessment Indicates: Nausea Subjective Comments: "This tis not working for me". Pt says whatever he is eating, it is making him feel "sick". Pt goes on to say that he would like to have a soft diet. Cans of Gingerale and several bottle of Ensure on bedside table. Pt has been drinking beverages w/a straw; pt says he doesnt use a straw at home. Says he drinks the Ensure "once in a blue panda". Food preferences taken. Pt w/a h/o of gastric bypass 2006 and reports a 252-lb wt loss and says he has maintained the wt loss. Pt receptive to receiving Glucerna Shakes and to receiving Beneprotein packets w/meals. Says he likes to "mix food up" so will have no problem w/the protein packets. Objective - Diagnosis SIRS, Intractable Pain, Left Flank Pain - Objective % IBW: 155 Body Weight Used for Calculations: IBW (67.3 kg) Energy Needs - Lower Range (kCal/kg): 28 Energy Needs - Upper Range (kCal/kg): 33 Lower Limit kCal/kg (kCals): 1,884 Upper Limit kCal/kg (kCals): 2,221 Lower Limit Protein Factor (Grams per Kg): 1.6 Upper Limit Protein Factor (Grams per Kg): 2.0 Lower Protein Needs (Protein): 108 Upper Protein Needs (Protein): 135 Dietitian Reviewed in Medical Record: Current diet, Curent medications, Intake & Output, Labs, Medical history Oral Diet Intake Amount: Fair 50-75% Objective Comments: PMH includes: Diabetes, GERD, hypercholesterolemia, MDRO, h/o gastric bypass, s/ p lap cholecystectomy(04/24), CABG x 3(04/14/18) Labs include: Albumin 1.7, Prealbumin 7.0, Random Glucose 112, POC Glucose 207 Meds include: Zofran, Cordarone, Lipitor, Cardizem, Novolog SSI, Metformin, Metoprolol, Theragran M LBM 04/29/18 Assessment Assessment: Pt is at nutritional risk r/t clinical status during this admission. Pt w/h/o Gastric Bypass. Currently w/poor po intake and nausea. Rec diet as Soft. Rec replacing Ensure BID per w/Brook Shakes TID(= 220 kcal and 10g protein per serving). Send Beneprotein packets TID w/meals(= 25 kcal and 6g protein per packet). Send yogurt and low fat cheese for between meal snacks and additional protein. Pt encouraged to avoid using a straw w/beverages w/h/o gastric bypass. [place] food preferences. Rec bariatric vitamins for optimal vitamin mineral supplementation. Labs reviewed-low prealbumin and albumin noted. Dietitian following. Brought forward from 04[place]14/18: [facility] [place] s/p urgent off-pump CABG x 3 received on 04/14. Patient Navigator to provide education, consult RD if complexities with diet education arise. Recommendations: 1. Rec diet as Soft 2. Rec replacing Ensure BID per w/Brook Shakes TID 3. Send Beneprotein packets TID w/meals 4. Send yogurt and low fat cheese for between meal snacks and additional protein 5. Avoid using a straw w/beverages w/h/o gastric bypass 6. [place] food preferences 7. Rec bariatric vitamins for optimal vitamin mineral supplementation 8. Dietitian following Dietitian to Monitor: Lab values, Glucose level, Supplement acceptance, Intake & Output, Diet tolerance, Weight change, PO Intake, Medical course
--- NOTE | 2018-04-30 15:56 | P.PN ---
Physical Exam Vital signs: Vital Signs 04/29/18 16:00 04/29/18 17:00 04/29/18 18:00 Temperature Pulse Rate 79 79 80 Respiratory Rate Blood Pressure Pulse Oximetry 04/29/18 19:00 04/29/18 19:46 04/29/18 20:00 Temperature 98 F Pulse Rate 78 77 Respiratory Rate 16 Blood Pressure 117/60 Pulse Oximetry 98 95 04/29/18 20:57 04/29/18 21:00 04/29/18 22:00 Temperature Pulse Rate 83 67 Respiratory Rate Blood Pressure Pulse Oximetry 96 04/29/18 23:00 04/30/18 00:00 04/30/18 01:00 Temperature 97.9 F Pulse Rate 82 88 90 Respiratory Rate 16 Blood Pressure 96/60 L Pulse Oximetry 97 04/30/18 02:00 04/30/18 03:00 04/30/18 04:00 Temperature 98 F Pulse Rate 92 H 74 92 H Respiratory Rate 16 Blood Pressure 112/58 L Pulse Oximetry 96 04/30/18 05:00 04/30/18 06:00 04/30/18 07:51 Temperature 98.2 F Pulse Rate 93 H 75 72 Respiratory Rate 18 Blood Pressure 107/62 Pulse Oximetry 96 04/30/18 07:52 04/30/18 08:00 04/30/18 08:35 Temperature Pulse Rate 72 69 Respiratory Rate Blood Pressure Pulse Oximetry 96 04/30/18 09:21 04/30/18 10:40 04/30/18 11:28 Temperature Pulse Rate 69 66 66 Respiratory Rate Blood Pressure Pulse Oximetry 04/30/18 11:30 04/30/18 12:13 04/30/18 13:02 Temperature 98 F Pulse Rate 66 68 71 Respiratory Rate 18 Blood Pressure 88/51 L Pulse Oximetry 98 04/30/18 14:18 04/30/18 15:09 04/30/18 15:11 Temperature 97.4 F L Pulse Rate 75 68 68 Respiratory Rate 18 Blood Pressure 111/60 Pulse Oximetry 98 Intake & Output 04/29/18 04/30/18 04/30/18 18:59 06:59 18:59 Intake Total 830 / 830 870 / 870 100 / 100 Output Total 530 / 530 425 / 425 Balance 300 / 300 445 / 445 100 / 100 Weight 111.5 kg Intake: IV 50 / 50 150 / 150 100 / 100 Zosyn 3.375 GM Premix 50 ML @ 50 / 50 150 / 150 100 / 100 100 mls/hr IV.SIG Q6H [facility] Rx#: [id number] Oral 780 / 780 720 / 720 Output: Urine 450 / 450 375 / 375 Wound Drainage 80 / 80 50 / 50 # 1 Right ROCKY Drain 80 / 80 50 / 50 Other: # Voids 1 Date of Last Bowel Movement 04/29/18 04/29/18 04/29/18 # Bowel Movements 1 0 - Urinary Catheter Management 3-way Urethral Cath placed during this visit: yes, but has since been removed by the nurse Reason for continuing: Decision to DC catheter Insertion date: 04/13/18 Insertion time: 00:00 Removal date: 04/19/18 Removal time: 10:30 Results - Labs CBC & Chem 7: 04/30/18 03:44 04/30/18 03:44 Laboratory Results - last 24 hr 04/29/18 04/29/18 04/30/18 18:01 21:09 03:40 WBC RBC Hgb Hct MCV MCH MCHC RDW Plt Count MPV Neut % (Auto) Lymph % (Auto) [place] % (Auto) Eos % (Auto) Baso % (Auto) Neut # (Auto) Lymph # (Auto) [place] # (Auto) Eos # (Auto) Baso # (Auto) WBC Differential Differential Comment Sodium Potassium Chloride Carbon Dioxide Anion Gap BUN Creatinine Estimated GFR POC Glucose 247 H 315 H 129 H Random Glucose Calcium 04/30/18 04/30/18 04/30/18 03:44 03:44 08:31 WBC 10.2 RBC 3.22 L Hgb 9.3 L Hct 29.0 L MCV 90.1 MCH 29.0 MCHC 32.2 RDW 16.3 Plt Count 535 H MPV 7.6 Neut % (Auto) 65.6 Lymph % (Auto) 19.2 [place] % (Auto) 10.6 H Eos % (Auto) 3.8 Baso % (Auto) 0.8 Neut # (Auto) 6.7 Lymph # (Auto) 2.0 [place] # (Auto) 1.1 H Eos # (Auto) 0.4 Baso # (Auto) 0.1 WBC Differential . Differential Comment Auto diff final Sodium 142 Potassium 3.5 Chloride 107 Carbon Dioxide 28.8 Anion Gap 6 BUN 11 Creatinine 0.80 Estimated GFR Greater than 89 POC Glucose 126 H Random Glucose 112 H Calcium 7.6 L 04/30/18 09:53 WBC RBC Hgb Hct MCV MCH MCHC RDW Plt Count MPV Neut % (Auto) Lymph % (Auto) [place] % (Auto) Eos % (Auto) Baso % (Auto) Neut # (Auto) Lymph # (Auto) [place] # (Auto) Eos # (Auto) Baso # (Auto) WBC Differential Differential Comment Sodium Potassium Chloride Carbon Dioxide Anion Gap BUN Creatinine Estimated GFR POC Glucose 207 H Random Glucose Calcium Microbiology 04/26/18 00:55 Blood - Peripheral Aerobic Blood Culture - Preliminary No growth in 4 days 04/26/18 00:55 Blood - Peripheral Anaerobic Blood Culture - Preliminary No growth in 4 days 04/26/18 01:00 Blood - Peripheral Aerobic Blood Culture - Preliminary No growth in 4 days 04/26/18 01:00 Blood - Peripheral Anaerobic Blood Culture - Preliminary No growth in 4 days - Imaging Impressions Venous Doppler Study 04/29/18 00:00 CONCLUSION: 1. Nonocclusive thrombus right IJ. - Procedures CABG X3 ON 04-14 THOMAS-->LAD, SVG-->OM, SVG-->PDA PREPROCEDURE DIAGNOSES 1. Severe Multi Vessel Coronary Artery Disease. 2. Acute Myocardial Infarction (NSTEMI) 3. Acute Cholecystitis s/p percutaneous cholecystostomy tube placement 4. Sepsis and Bacteremia 5. Severe Pulmonary Insufficiency 6. Intramyocardial Coronary Vessels POSTPROCEDURE DIAGNOSES Same SURGICAL PROCEDURE 1. Urgent Off-pump Coronary Artery Bypass Grafting x 3 with Left Internal Mammary Artery (THOMAS) to Left Anterior Descending (LAD), reverse saphenous vein graft to obtuse Marginal branch of the left Circumflex artery, reverse saphenous vein graft to the posterior Descending branch of the right Coronary artery 2. Left leg Endoscopic Vein [place] 3. Ultrasound-guided dissection of the LAD 4. Intraoperative Vein Mapping. Cholecystectomy 04/24/2018 Assessment and Plan - Assessment (1) Status post laparoscopic cholecystectomy Code(s): Z90.49 - Acquired absence of other specified parts of digestive tract Status: Acute (2) Cholecystitis Code(s): K81.9 - Cholecystitis, unspecified Status: Acute Plan: Continue with cholecystostomy tube; await CABG this next week; will follow with surgery in 3-4 weeks. Will see intermittently until then. For possible ERCP today. (3) Intractable abdominal pain Code(s): R10.9 - Unspecified abdominal pain Status: Acute (4) NSTEMI (non-ST elevated myocardial infarction) Code(s): I21.4 - Non-ST elevation (NSTEMI) myocardial infarction Status: Acute (5) Afib Code(s): I48.91 - Unspecified atrial fibrillation Status: Acute
[2018-04-30] MEDS: Sod Chloride 0.9% Inj 1,000 ML IV.CONT SCH ×2 (22:09)
[2018-05-01] MEDS: Piperacil/Tazo 3.375 GM Premix 50 ML IV.SIG SCH ×2 (03:36→09:05)
[2018-05-01] MEDS: Insulin NovoLOG Aspart Correctional Sugar Inj SQ SCH ×5 (03:58→21:48)
[2018-05-01 05:47] LABS: Baso # (Auto) 0.1 th/mm3 (0.0-0.2); Eos # (Auto) 0.3 th/mm3 (0.0-0.4); Eos % (Auto) 3.6 % (0.0-4.0); Hematocrit 26.4 % (39.0-51.0); Hemoglobin 8.9 gm/dL (13.0-17.0); Lymph # (Auto) 1.6 th/mm3 (1.0-4.8); Lymph % (Auto) 17.5 % (9.0-44.0); Mean Corpuscular HGB Conc 33.6 % (32.0-36.0); Mean Corpuscular Hemoglobin 29.5 pg (27.0-34.0); Mean Corpuscular Volume 87.8 fL (80.0-100.0); Mean Platelet Volume 7.5 fL (7.0-11.0); Mono # (Auto) 0.9 th/mm3 (0.0-0.9); Mono % (Auto) 9.7 % (0.0-8.0); Neut # (Auto) 6.3 th/mm3 (1.8-7.7); Neut % (Auto) 68.2 % (16.0-70.0); Platelet Count 513 th/mm3 (150-450); Red Cell Distribution Width 16.3 % (11.6-17.2); White Blood Count 9.3 th/mm3 (4.0-11.0)
[2018-05-01 06:15] LABS: Anion Gap 5 meq/L (5-15); Blood Urea Nitrogen 9 mg/dL (7-18); Calcium 7.8 mg/dL (8.5-10.1); Carbon Dioxide 28.1 meq/L (21.0-32.0); Chloride 108 meq/L (98-107); Glomerular Filtration Rate Greater Than 89 mL/min (>89); Glucose,Random 146 mg/dL (74-106); Potassium 3.8 meq/L (3.5-5.1); Sodium 141 meq/L (136-145)
--- NOTE | 2018-05-01 08:37 | P.DS ---
Date of admission: 03/19/18 16:03 Primary care physician: Eusebio Chacko MD Anticipated date of discharge: 04/19/18 Brief History from admission: This is a pleasant 67 y/o Male who was brought in to Emergency Department via EMS for nausea, vomiting, and abdominal pain. The patient was awakened at 6 AM with left-sided flank pain and left mid back pain radiating to the left lower quadrant. The patient then developed nausea and vomiting secondary to the pain. The patient denies any hematuria, dysuria, frequency, or dark colored urine. The pain is described as sharp, stabbing, starting in left flank and radiating to the left lower quadrant. The patient denies any history of nephrolithiasis or diverticulitis, does have a previous history of gastric bypass. The patient denies any fever, chills, or sweats. Symptoms are moderate to severe, there are no current alleviating factors, and there are no known exacerbating factors.as constant pain, 10/10 in intensity stabbing and sharp sensation, on LLQ, non radiated. he has DM II, GERD, Hyperlipidemia. Discussed with ER physician face to face Doctor Jese Espinal appreciated input and recommendations the patient has probable Sepsis has Tachycardia, Leukocytosis and probable focus in his large bowel. he continue with Pain, will cover with Cefepime and Flagyl and follow with GI specialist, following blood cultures. Patient update on day of discharge: No events overnight. HR controlled Eating better Eager to go to [facility] and to improve DS: Diagnosis - Discharge Diagnosis (1) Intractable abdominal pain Status: Acute (2) Acute gangrenous cholecystitis Status: Acute (3) Afib Status: Acute (4) Cholecystitis Status: Acute (5) Coronary artery disease involving qawalangin coronary artery Status: Acute (6) NSTEMI (non-ST elevated myocardial infarction) Status: Acute (7) S/P CABG (coronary artery bypass graft) Status: Acute (8) SIRS (systemic inflammatory response syndrome) Status: Acute DS: Medications - Discharge Medications Prescriptions: amoxicillin-pot clavulanate 1 tab PO Q12HR 5 Days tab furosemide [Lasix] 20 mg PO DAILY #30 tab potassium chloride 8 meq PO DAILY #30 cap DS: Summary Hospital Course: Mr. Bridges is a pleasant 67-year-old male with history of prior gastric bypass who has acute clinical course has been complicated by acute cholecystitis and Klebsiella, E. coli bacteremia requiring a week of IV antibiotics, now complicated by acute non-ST elevation myocardial infarction and underwent urgent off-pump CABG x 3 (THOMAS-->LAD, SVG-->OM, SVG-->PDA) on 04/14. Sepsis/ Acute cholecystitis -History of E. coli and Klebsiella bacteremia on this admission -Status post cholecystectomy by Dr. Hall 04/24 -repeat blood cultures -pending -DC Zosyn dc Meropenem. PO antibiotic at DC Augmentin until 05/06/18. -ID consulted, appreciate recommendations CABG x 3 (THMOAS-->LAD, SVG-->OM, SVG-->PDA) 04/14 NSTEMI CAD Hypotension -Blood pressure improved with 3 L fluid resuscitation -received 1 unit PRBC for hemoglobin 7.7 as this was trending down and patient was hypotensive; h/h/ has been stab;e . - EF 60-65%, trace to mild MR on KELLY this admission - continue lipitor ,ASA -Further per cardiology and CT surgery Afib - now in SR on telemetry -continue Metoprolol, Cardizem and Amiodarone -started on Eliquis -cardiology/CT surgery following. Hematuria S/P cystoscopy- 04/11 Hematuria - resolved -voiding well- gross clear urine -Urology input appreciated Right arm pain, erythema and edema at the previous IV site. 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 Compresses and elevate arm. Seen by Dr Myers recommends conservative management. DM II - SSI. Severe protein calorie malnutrition Very low prealbumin at 7. Patient also with low albumin, decreased p.o. intake. Add ensure to diet. Consult dietitian. DVT GI prophylaxis -Teds SCDs -Pharmacological DVT prophylaxis per surgery and urology -Pepcid Patient improved. PT recommends rehab. DC to [facility] in stable condition to follow up as OP with PCP and consultants . - Time Spent with Patient Total time spent providing and/or coordinating discharge services: Greater than 30 minutes - Quality: VTE Deep Vein Thrombosis/Pulmonary Embolism Present on Admission: No Exam Vital signs: Vital Signs 04/30/18 09:21 04/30/18 10:40 04/30/18 11:28 Temperature Pulse Rate 69 66 66 Respiratory Rate Blood Pressure Pulse Oximetry 04/30/18 11:30 04/30/18 12:13 04/30/18 13:02 Temperature 98 F Pulse Rate 66 68 71 Respiratory Rate 18 Blood Pressure 88/51 L Pulse Oximetry 98 04/30/18 14:18 04/30/18 15:09 04/30/18 15:11 Temperature 97.4 F L Pulse Rate 75 68 68 Respiratory Rate 18 Blood Pressure 111/60 Pulse Oximetry 98 04/30/18 15:50 04/30/18 16:56 04/30/18 17:55 Temperature Pulse Rate 69 67 68 Respiratory Rate Blood Pressure Pulse Oximetry 04/30/18 19:00 04/30/18 20:00 04/30/18 21:00 Temperature 97.9 F Pulse Rate 75 75 71 Respiratory Rate 18 Blood Pressure 112/63 Pulse Oximetry 98 04/30/18 22:00 04/30/18 23:00 05/01/18 00:00 Temperature 98.1 F Pulse Rate 65 66 66 Respiratory Rate 18 Blood Pressure 93/60 L Pulse Oximetry 96 05/01/18 01:00 05/01/18 02:00 05/01/18 03:00 Temperature 98.2 F Pulse Rate 69 69 75 Respiratory Rate 18 Blood Pressure 126/60 Pulse Oximetry 98 05/01/18 04:00 05/01/18 05:00 05/01/18 06:00 Temperature Pulse Rate 71 72 72 Respiratory Rate Blood Pressure Pulse Oximetry Intake & Output 04/30/18 05/01/18 05/01/18 18:59 06:59 18:59 Intake Total 1500 / 1500 530 / 530 50 / 50 Output Total 300 / 300 430 / 430 Balance 1200 / 1200 100 / 100 50 / 50 Weight 114.5 kg Intake: IV 1100 / 1100 50 / 50 50 / 50 NS Inj 1,000 ML @ 84 mls/hr IV. 1000 / 1000 CONT .[id number] [facility] Rx#:[id number] Zosyn 3.375 GM Premix 50 ML @ 100 / 100 50 / 50 50 / 50 100 mls/hr IV.SIG Q6H [facility] Rx#: [id number] Oral 400 / 400 480 / 480 Output: Urine 300 / 300 350 / 350 Wound Drainage 80 / 80 # 1 Right ROCKY Drain 80 / 80 Other: # Voids 0 Date of Last Bowel Movement 04/29/18 04/29/18 # Bowel Movements 0 0 Narrative: GENERAL: The patient is a very pleasant 67-year-old male, chronically ill, not in acute distress. Respiratory: Decreased breath sounds however better air movement, improving. Cardiovascular: Irregularly irregular Abdomen: Bowel sounds diminished, soft, no tenderness. Post laparoscopic cholecystectomy. J Extremities: No clubbing or cyanosis. Right arm with redness and pain at the previous IV site. Trace edema at the lower extremities. Muscle wasting. Weak handgrip. Skin: Pale. Mucous membranes slightly dry. NEUROLOGIC: Nonfocal. Results Procedures completed during hospitalization: CABG X3 ON 04-14 THOMAS-->LAD, SVG-->OM, SVG-->PDA PREPROCEDURE DIAGNOSES 1. Severe Multi Vessel Coronary Artery Disease. 2. Acute Myocardial Infarction (NSTEMI) 3. Acute Cholecystitis s/p percutaneous cholecystostomy tube placement 4. Sepsis and Bacteremia 5. Severe Pulmonary Insufficiency 6. Intramyocardial Coronary Vessels POSTPROCEDURE DIAGNOSES Same SURGICAL PROCEDURE 1. Urgent Off-pump Coronary Artery Bypass Grafting x 3 with Left Internal Mammary Artery (THOMAS) to Left Anterior Descending (LAD), reverse saphenous vein graft to obtuse Marginal branch of the left Circumflex artery, reverse saphenous vein graft to the posterior Descending branch of the right Coronary artery 2. Left leg Endoscopic Vein [place] 3. Ultrasound-guided dissection of the LAD 4. Intraoperative Vein Mapping. Cholecystectomy 04/24/2018 Completed studies during hospitalization: Pending at discharge 04/24/18 13:36 Surgical [PTH] Routine Labs on day of discharge: Labs from last 24 hours 05/01/18 05/01/18 05/01/18 07:42 04:34 04:34 WBC 9.3 RBC 3.00 L Hgb 8.9 L Hct 26.4 L MCV 87.8 MCH 29.5 MCHC 33.6 RDW 16.3 Plt Count 513 H MPV 7.5 Neut % (Auto) 68.2 Lymph % (Auto) 17.5 [place] % (Auto) 9.7 H Eos % (Auto) 3.6 Baso % (Auto) 1.0 Neut # (Auto) 6.3 Lymph # (Auto) 1.6 [place] # (Auto) 0.9 Eos # (Auto) 0.3 Baso # (Auto) 0.1 WBC Differential . Differential Comment Auto diff final Sodium 141 Potassium 3.8 Chloride 108 H Carbon Dioxide 28.1 Anion Gap 5 BUN 9 Creatinine 0.70 Estimated GFR Greater than 89 POC Glucose 154 H Random Glucose 146 H Calcium 7.8 L 05/01/18 04/30/18 04/30/18 03:56 20:38 16:21 WBC RBC Hgb Hct MCV MCH MCHC RDW Plt Count MPV Neut % (Auto) Lymph % (Auto) [place] % (Auto) Eos % (Auto) Baso % (Auto) Neut # (Auto) Lymph # (Auto) [place] # (Auto) Eos # (Auto) Baso # (Auto) WBC Differential Differential Comment Sodium Potassium Chloride Carbon Dioxide Anion Gap BUN Creatinine Estimated GFR POC Glucose 153 H 203 H 183 H Random Glucose Calcium 04/30/18 04/30/18 09:53 08:31 WBC RBC Hgb Hct MCV MCH MCHC RDW Plt Count MPV Neut % (Auto) Lymph % (Auto) [place] % (Auto) Eos % (Auto) Baso % (Auto) Neut # (Auto) Lymph # (Auto) [place] # (Auto) Eos # (Auto) Baso # (Auto) WBC Differential Differential Comment Sodium Potassium Chloride Carbon Dioxide Anion Gap BUN Creatinine Estimated GFR POC Glucose 207 H 126 H Random Glucose Calcium Preliminary micro results at discharge 04/26/18 00:55 Aerobic Blood Culture - Preliminary Blood - Peripheral No growth in 4 days Anaerobic Blood Culture - Preliminary No growth in 4 days 04/26/18 01:00 Aerobic Blood Culture - Preliminary Blood - Peripheral No growth in 4 days Anaerobic Blood Culture - Preliminary No growth in 4 days - Impressions ITS Impressions Abdomen/Pelvis CT 03/19/18 10:38 CONCLUSION: 1. Short segmental concentric wall thickening is identified in the distal descending colon. Colon malignancy needs to be excluded. 2. Calcified gallstones with moderate distention of the gallbladder. 3. No other significant abnormality. Chest CTA 03/19/18 13:37 CONCLUSION: 1. No evidence of acute pulmonary embolism. 2. Mild subpleural airspace disease and reticulations which may be chronic. 3. No evidence of segmental or lobar lung consolidation. Abdomen/Pelvis CTA 03/22/18 00:00 CONCLUSION: 1. Prominent gallbladder distention and surrounding inflammatory changes consistent with cholecystitis 2. No acute vascular findings in the abdomen or pelvis. Carotid Doppler Study 03/25/18 12:49 CONCLUSION: 1. Right Internal Carotid Artery: No significant plaque or narrowing. 2. Left Internal Carotid Artery: No significant plaque or narrowing. Lower Extremity Ultrasound 03/25/18 12:49 CONCLUSION: Bilateral greater saphenous vein measurements as above. No acute abnormalities are demonstrated. Percutaneous Cholangiogram 03/31/18 00:00 CONCLUSION: Uncomplicated percutaneous cholecystostomy as above. Cholangiopancreatography MRI 04/03/18 17:20 CONCLUSION: 1. Numerous filling defects within the central intrahepatic biliary ducts, common hepatic ducts, and common bile ducts. These represent stones and/or thrombus/hemorrhage. The linear defects are more likely related to hemorrhage. 2. Dilatation of the gallbladder with thickened gallbladder wall and a cholecystostomy tube in place. There is heterogeneous material within the gallbladder. Abdomen/Bladder Ultrasound 04/07/18 00:00 CONCLUSION: 1. No findings to account for the patient's hematuria. 2. Nonvisualization of the left kidney. 3. No evidence of hydronephrosis or nephrolithiasis in the right kidney. Abdomen X-Ray 04/21/18 00:00 CONCLUSION: Nonobstructive bowel gas pattern. Moderate to large stool throughout the colon. Chest X-Ray 04/25/18 00:00 CONCLUSION: Cardiomegaly with bibasilar airspace disease and probable pleural effusions. Venous Doppler Study 04/29/18 00:00 CONCLUSION: 1. Nonocclusive thrombus right IJ. Discharge Plan - Discharge Disposition Patient Disposition: 03 Discharge to SNF - Discharge Condition Condition: Stable - Discharge Order Discharge Orders: Discharge Order (Routine); Ordered 05/02/18 Ordered By: Rachel Whitehead General Surgery Clear for Discharge (Routine); Ordered 05/02/18 Ordered By: Glenna Damian Hospitalist Clear for Discharge (Routine); Ordered 04/20/18 Ordered By: Duc Gutierrez Vascular Surgery Clear for Discharge (Routine); Ordered 05/01/18 Ordered By: Alexandria Brady - Discharge Details Anticipated Discharge Date: 04/20/18 Discharge Comment: DC TO [facility] WHEN BED AVAILABLE - Physicians Team Primary Care Provider: Eusebio Chacko Attending Provider: Jaz Agrawal Other Providers: Terrell Tineo MD ; Catrina Sanchez MD ; Tyler Hall MD ; Yanira Carlin MD ; [facility] ; Zhou Wright MD ; Emigdio Villafana DO ; Ravi Mcneill MD ; Miki Grey MD ; Kimmie Calvo MD ; Yimi Abraham MD ; Justin Bautista MD ; Tyelr Browning MD
[2018-05-01] MEDS: Polyethylene Glycol 3350 17 GM Packet PO SCH (09:02)
[2018-05-01] MEDS: Docusate Sodium 100 MG Capsule PO SCH ×2 (09:03→21:33)
[2018-05-01] MEDS: Senna/Docusate Sodium 8.6/50 MG Tablet PO SCH ×2 (09:03→21:32)
[2018-05-01] MEDS: Magnesium Oxide 400 MG Tablet PO SCH ×2 (09:03→21:32)
[2018-05-01] MEDS: Multivitamin/Minerals Therapeutic Tablet PO SCH (09:04)
[2018-05-01] MEDS: Amiodarone 200 MG Tablet PO SCH ×2 (09:04→21:32)
[2018-05-01] MEDS: Metoprolol Tartrate 25 MG Tablet PO SCH ×2 (09:04→21:32)
[2018-05-01] MEDS: Sod Chloride 0.9% Inj 1,000 ML IV.CONT SCH ×3 (09:05→21:00)
--- NOTE | 2018-05-01 10:49 | P.PNGS ---
Subjective Interval history: Eating breakfast In better spirits today Is happy because he talked to his girlfriend on the phone Feels constipated Physical Exam Vital signs: Vital Signs 04/30/18 11:28 04/30/18 11:30 04/30/18 12:13 Temperature 98 F Pulse Rate 66 66 68 Respiratory Rate 18 Blood Pressure 88/51 L Pulse Oximetry 98 04/30/18 13:02 04/30/18 14:18 04/30/18 15:09 Temperature Pulse Rate 71 75 68 Respiratory Rate Blood Pressure Pulse Oximetry 04/30/18 15:11 04/30/18 15:50 04/30/18 16:56 Temperature 97.4 F L Pulse Rate 68 69 67 Respiratory Rate 18 Blood Pressure 111/60 Pulse Oximetry 98 04/30/18 17:55 04/30/18 19:00 04/30/18 20:00 Temperature 97.9 F Pulse Rate 68 75 75 Respiratory Rate 18 Blood Pressure 112/63 Pulse Oximetry 98 04/30/18 21:00 04/30/18 22:00 04/30/18 23:00 Temperature 98.1 F Pulse Rate 71 65 66 Respiratory Rate 18 Blood Pressure 93/60 L Pulse Oximetry 96 05/01/18 00:00 05/01/18 01:00 05/01/18 02:00 Temperature Pulse Rate 66 69 69 Respiratory Rate Blood Pressure Pulse Oximetry 05/01/18 03:00 05/01/18 04:00 05/01/18 05:00 Temperature 98.2 F Pulse Rate 75 71 72 Respiratory Rate 18 Blood Pressure 126/60 Pulse Oximetry 98 05/01/18 06:00 05/01/18 07:00 05/01/18 08:00 Temperature 97.8 F Pulse Rate 72 76 75 Respiratory Rate 18 Blood Pressure 138/62 Pulse Oximetry 98 05/01/18 09:00 05/01/18 09:30 05/01/18 10:00 Temperature Pulse Rate 78 65 Respiratory Rate 18 Blood Pressure Pulse Oximetry Intake & Output 04/30/18 05/01/18 05/01/18 18:59 06:59 18:59 Intake Total 1500 / 1500 530 / 530 100 / 100 Output Total 300 / 300 430 / 430 Balance 1200 / 1200 100 / 100 100 / 100 Weight 114.5 kg Intake: IV 1100 / 1100 50 / 50 100 / 100 NS Inj 1,000 ML @ 84 mls/hr IV. 1000 / 1000 CONT .[id number] [facility] Rx#:[id number] Zosyn 3.375 GM Premix 50 ML @ 100 / 100 50 / 50 100 / 100 100 mls/hr IV.SIG Q6H [facility] Rx#: [id number] Oral 400 / 400 480 / 480 Output: Urine 300 / 300 350 / 350 Wound Drainage 80 / 80 # 1 Right ROCKY Drain 80 / 80 Other: # Voids 0 Date of Last Bowel Movement 04/29/18 04/29/18 04/29/18 # Bowel Movements 0 0 Narrative: Alert and awake Abd: soft; packing in place to umbilicus ROCKY in place - Urinary Catheter Management 3-way Urethral Cath placed during this visit: yes, but has since been removed by the nurse Reason for continuing: Decision to DC catheter Insertion date: 04/13/18 Insertion time: 00:00 Removal date: 04/19/18 Removal time: 10:30 Results - Labs 05/01/18 04:34 05/01/18 04:34 Laboratory Results - last 24 hr 04/30/18 04/30/18 05/01/18 16:21 20:38 03:56 WBC RBC Hgb Hct MCV MCH MCHC RDW Plt Count MPV Neut % (Auto) Lymph % (Auto) [place] % (Auto) Eos % (Auto) Baso % (Auto) Neut # (Auto) Lymph # (Auto) [place] # (Auto) Eos # (Auto) Baso # (Auto) WBC Differential Differential Comment Sodium Potassium Chloride Carbon Dioxide Anion Gap BUN Creatinine Estimated GFR POC Glucose 183 H 203 H 153 H Random Glucose Calcium 05/01/18 05/01/18 05/01/18 04:34 04:34 07:42 WBC 9.3 RBC 3.00 L Hgb 8.9 L Hct 26.4 L MCV 87.8 MCH 29.5 MCHC 33.6 RDW 16.3 Plt Count 513 H MPV 7.5 Neut % (Auto) 68.2 Lymph % (Auto) 17.5 [place] % (Auto) 9.7 H Eos % (Auto) 3.6 Baso % (Auto) 1.0 Neut # (Auto) 6.3 Lymph # (Auto) 1.6 [place] # (Auto) 0.9 Eos # (Auto) 0.3 Baso # (Auto) 0.1 WBC Differential . Differential Comment Auto diff final Sodium 141 Potassium 3.8 Chloride 108 H Carbon Dioxide 28.1 Anion Gap 5 BUN 9 Creatinine 0.70 Estimated GFR Greater than 89 POC Glucose 154 H Random Glucose 146 H Calcium 7.8 L - Imaging Imaging: ITS Impressions Abdomen/Pelvis CT 03/19/18 10:38 CONCLUSION: 1. Short segmental concentric wall thickening is identified in the distal descending colon. Colon malignancy needs to be excluded. 2. Calcified gallstones with moderate distention of the gallbladder. 3. No other significant abnormality. Chest CTA 03/19/18 13:37 CONCLUSION: 1. No evidence of acute pulmonary embolism. 2. Mild subpleural airspace disease and reticulations which may be chronic. 3. No evidence of segmental or lobar lung consolidation. Abdomen/Pelvis CTA 03/22/18 00:00 CONCLUSION: 1. Prominent gallbladder distention and surrounding inflammatory changes consistent with cholecystitis 2. No acute vascular findings in the abdomen or pelvis. Carotid Doppler Study 03/25/18 12:49 CONCLUSION: 1. Right Internal Carotid Artery: No significant plaque or narrowing. 2. Left Internal Carotid Artery: No significant plaque or narrowing. Lower Extremity Ultrasound 03/25/18 12:49 CONCLUSION: Bilateral greater saphenous vein measurements as above. No acute abnormalities are demonstrated. Percutaneous Cholangiogram 03/31/18 00:00 CONCLUSION: Uncomplicated percutaneous cholecystostomy as above. Cholangiopancreatography MRI 04/03/18 17:20 CONCLUSION: 1. Numerous filling defects within the central intrahepatic biliary ducts, common hepatic ducts, and common bile ducts. These represent stones and/or thrombus/hemorrhage. The linear defects are more likely related to hemorrhage. 2. Dilatation of the gallbladder with thickened gallbladder wall and a cholecystostomy tube in place. There is heterogeneous material within the gallbladder. Abdomen/Bladder Ultrasound 04/07/18 00:00 CONCLUSION: 1. No findings to account for the patient's hematuria. 2. Nonvisualization of the left kidney. 3. No evidence of hydronephrosis or nephrolithiasis in the right kidney. Abdomen X-Ray 04/21/18 00:00 CONCLUSION: Nonobstructive bowel gas pattern. Moderate to large stool throughout the colon. Chest X-Ray 04/25/18 00:00 CONCLUSION: Cardiomegaly with bibasilar airspace disease and probable pleural effusions. Venous Doppler Study 04/29/18 00:00 CONCLUSION: 1. Nonocclusive thrombus right IJ. Assessment and Plan - Assessment (1) Status post laparoscopic cholecystectomy Code(s): Z90.49 - Acquired absence of other specified parts of digestive tract Status: Acute (2) Cholecystitis Code(s): K81.9 - Cholecystitis, unspecified Status: Acute Plan: 67 year old male with afib RVR; s/p cardiac cath; cholecystics -S/p CABG -s/p lap burt with drain placement -WBC now normal -DC ORCKY drain -Added MOM -Tolerating regular diet (3) Intractable abdominal pain Code(s): R10.9 - Unspecified abdominal pain Status: Acute (4) NSTEMI (non-ST elevated myocardial infarction) Code(s): I21.4 - Non-ST elevation (NSTEMI) myocardial infarction Status: Acute (5) Afib Code(s): I48.91 - Unspecified atrial fibrillation Status: Acute
--- NOTE | 2018-05-01 11:02 | P.PNVS ---
Subjective Subjective/Hospital Course: 67/M alert in NAD Pt w/ a chronic right internal jugular DVT Pt w/o complaints of arm pain UE warm Pt w/o arm swelling Palpable distal pulses present Objective Vital Signs / I&O: Vital Signs 04/30/18 11:28 04/30/18 11:30 04/30/18 12:13 Temperature 98 F Pulse Rate 66 66 68 Respiratory Rate 18 Blood Pressure 88/51 L Pulse Oximetry 98 04/30/18 13:02 04/30/18 14:18 04/30/18 15:09 Temperature Pulse Rate 71 75 68 Respiratory Rate Blood Pressure Pulse Oximetry 04/30/18 15:11 04/30/18 15:50 04/30/18 16:56 Temperature 97.4 F L Pulse Rate 68 69 67 Respiratory Rate 18 Blood Pressure 111/60 Pulse Oximetry 98 04/30/18 17:55 04/30/18 19:00 04/30/18 20:00 Temperature 97.9 F Pulse Rate 68 75 75 Respiratory Rate 18 Blood Pressure 112/63 Pulse Oximetry 98 04/30/18 21:00 04/30/18 22:00 04/30/18 23:00 Temperature 98.1 F Pulse Rate 71 65 66 Respiratory Rate 18 Blood Pressure 93/60 L Pulse Oximetry 96 05/01/18 00:00 05/01/18 01:00 05/01/18 02:00 Temperature Pulse Rate 66 69 69 Respiratory Rate Blood Pressure Pulse Oximetry 05/01/18 03:00 05/01/18 04:00 05/01/18 05:00 Temperature 98.2 F Pulse Rate 75 71 72 Respiratory Rate 18 Blood Pressure 126/60 Pulse Oximetry 98 05/01/18 06:00 05/01/18 07:00 05/01/18 08:00 Temperature 97.8 F Pulse Rate 72 76 75 Respiratory Rate 18 Blood Pressure 138/62 Pulse Oximetry 98 05/01/18 09:00 05/01/18 09:30 05/01/18 10:00 Temperature Pulse Rate 78 65 Respiratory Rate 18 Blood Pressure Pulse Oximetry Intake & Output 04/30/18 05/01/18 05/01/18 18:59 06:59 18:59 Intake Total 1500 / 1500 530 / 530 100 / 100 Output Total 300 / 300 430 / 430 Balance 1200 / 1200 100 / 100 100 / 100 Weight 114.5 kg Intake: IV 1100 / 1100 50 / 50 100 / 100 NS Inj 1,000 ML @ 84 mls/hr IV. 1000 / 1000 CONT .[id number] [facility] Rx#:[id number] Zosyn 3.375 GM Premix 50 ML @ 100 / 100 50 / 50 100 / 100 100 mls/hr IV.SIG Q6H [facility] Rx#: [id number] Oral 400 / 400 480 / 480 Output: Urine 300 / 300 350 / 350 Wound Drainage 80 / 80 # 1 Right ROCKY Drain 80 / 80 Other: # Voids 0 Date of Last Bowel Movement 04/29/18 04/29/18 04/29/18 # Bowel Movements 0 0 Physical Exam: GENERAL: A&OX3, NAD, GCS 15 SKIN: Warm and dry. MUSCULOSKELETAL: No upper extremity cyanosis, or edema/ UE warm w/ motor intact R UE w/ a Palpable Radial pulse Laboratory Results - last 24 hr 04/30/18 04/30/18 05/01/18 16:21 20:38 03:56 WBC RBC Hgb Hct MCV MCH MCHC RDW Plt Count MPV Neut % (Auto) Lymph % (Auto) [place] % (Auto) Eos % (Auto) Baso % (Auto) Neut # (Auto) Lymph # (Auto) [place] # (Auto) Eos # (Auto) Baso # (Auto) WBC Differential Differential Comment Sodium Potassium Chloride Carbon Dioxide Anion Gap BUN Creatinine Estimated GFR POC Glucose 183 H 203 H 153 H Random Glucose Calcium 05/01/18 05/01/18 05/01/18 04:34 04:34 07:42 WBC 9.3 RBC 3.00 L Hgb 8.9 L Hct 26.4 L MCV 87.8 MCH 29.5 MCHC 33.6 RDW 16.3 Plt Count 513 H MPV 7.5 Neut % (Auto) 68.2 Lymph % (Auto) 17.5 [place] % (Auto) 9.7 H Eos % (Auto) 3.6 Baso % (Auto) 1.0 Neut # (Auto) 6.3 Lymph # (Auto) 1.6 [place] # (Auto) 0.9 Eos # (Auto) 0.3 Baso # (Auto) 0.1 WBC Differential . Differential Comment Auto diff final Sodium 141 Potassium 3.8 Chloride 108 H Carbon Dioxide 28.1 Anion Gap 5 BUN 9 Creatinine 0.70 Estimated GFR Greater than 89 POC Glucose 154 H Random Glucose 146 H Calcium 7.8 L Microbiology 04/26/18 00:55 Aerobic Blood Culture - Preliminary Blood - Peripheral No growth in 4 days Anaerobic Blood Culture - Preliminary No growth in 4 days 04/26/18 01:00 Aerobic Blood Culture - Preliminary Blood - Peripheral No growth in 4 days Anaerobic Blood Culture - Preliminary No growth in 4 days Impressions Venous Doppler Study 04/29/18 00:00 CONCLUSION: 1. Nonocclusive thrombus right IJ. Assessment and Plan - Plan 67/M Chronic right internal jugular DVT Pt w/o arm pain or swelling Palpable distal pulses noted Plan No anticoagulation or vascular intervention required at this time. Pt clear for discharge from a Vascular stand point Discussed results w/ pt Questions answered Alexandria Brady NP [facility] [phone] Attending note: I saw and examined the patient, agree with the LOCKER ATTENDANT A/P : Date of service 05/01/18 Discharge Planning: Clear for d/c
--- NOTE | 2018-05-01 15:07 | P.PNID ---
Subjective Remarks: Reconsulted because patient has leukocytosis and hypotension. status post lap cholecystectomy for acute gangrenous cholecystitis on 2017. Patient was transferred to intensive care unit because of hypotension. He received fluid boluses. His blood pressure improved. Mr. Bridges is a 67-year-old male patient who presented to the emergency room on March 19, 2018. Patient initially reported nausea vomiting as well as abdominal pain on admission. Of note patient's past medical history significant for gastric bypass surgery many years back. Patient also has a history of type 2 diabetes, GERD, hyperlipidemia as well as morbid obesity. Post CABG on 04/14/2018. Patient states he feels much better today. He is awake and alert. Sitting up in recliner chair. No fever, chills, nausea or vomiting. Complains of constipation. RN reports he is on bowel regimen. Denies Nausea or vomiting tolerating other oral meds. Antibiotics: Piperacillin/tazobactam Lines: Lines ok Past Medical History: reviewed Allergies/Adverse Reactions: Allergies No Known Allergies Allergy (Verified 03/19/18 10:28) Objective Vital Signs 04/30/18 15:09 04/30/18 15:11 04/30/18 15:50 Temperature 97.4 F L Pulse Rate 68 68 69 Respiratory Rate 18 Blood Pressure 111/60 Pulse Oximetry 98 04/30/18 16:56 04/30/18 17:55 04/30/18 19:00 Temperature 97.9 F Pulse Rate 67 68 75 Respiratory Rate 18 Blood Pressure 112/63 Pulse Oximetry 98 04/30/18 20:00 04/30/18 21:00 04/30/18 22:00 Temperature Pulse Rate 75 71 65 Respiratory Rate Blood Pressure Pulse Oximetry 04/30/18 23:00 05/01/18 00:00 05/01/18 01:00 Temperature 98.1 F Pulse Rate 66 66 69 Respiratory Rate 18 Blood Pressure 93/60 L Pulse Oximetry 96 05/01/18 02:00 05/01/18 03:00 05/01/18 04:00 Temperature 98.2 F Pulse Rate 69 75 71 Respiratory Rate 18 Blood Pressure 126/60 Pulse Oximetry 98 05/01/18 05:00 05/01/18 06:00 05/01/18 07:00 Temperature 97.8 F Pulse Rate 72 72 76 Respiratory Rate 18 Blood Pressure 138/62 Pulse Oximetry 98 05/01/18 08:00 05/01/18 09:00 05/01/18 09:30 Temperature Pulse Rate 75 78 Respiratory Rate 18 Blood Pressure Pulse Oximetry 05/01/18 10:00 05/01/18 11:00 05/01/18 12:00 Temperature 98.2 F Pulse Rate 65 66 63 Respiratory Rate 18 Blood Pressure 94/53 L Pulse Oximetry 97 05/01/18 13:00 05/01/18 14:00 Temperature Pulse Rate 75 72 Respiratory Rate Blood Pressure Pulse Oximetry Intake & Output 04/30/18 05/01/18 05/01/18 18:59 06:59 18:59 Intake Total 1500 / 1500 530 / 530 1100 / 1100 Output Total 300 / 300 430 / 430 Balance 1200 / 1200 100 / 100 1100 / 1100 Weight 114.5 kg Intake: IV 1100 / 1100 50 / 50 1100 / 1100 NS Inj 1,000 ML @ 84 mls/hr IV. 1000 / 1000 1000 / 1000 CONT .[id number] [facility] Rx#:[id number] Zosyn 3.375 GM Premix 50 ML @ 100 / 100 50 / 50 100 / 100 100 mls/hr IV.SIG Q6H [facility] Rx#: [id number] Oral 400 / 400 480 / 480 Output: Urine 300 / 300 350 / 350 Wound Drainage 80 / 80 # 1 Right ROCKY Drain 80 / 80 Other: # Voids 0 Date of Last Bowel Movement 04/29/18 04/29/18 04/29/18 # Bowel Movements 0 0 04/26/18 00:55 Blood - Peripheral Aerobic Blood Culture - Final No growth in 5 days 04/26/18 00:55 Blood - Peripheral Anaerobic Blood Culture - Final No growth in 5 days 04/26/18 01:00 Blood - Peripheral Aerobic Blood Culture - Final No growth in 5 days 04/26/18 01:00 Blood - Peripheral Anaerobic Blood Culture - Final No growth in 5 days Lab - Hematology Results 04/30/18 05/01/18 03:44 04:34 WBC 10.2 9.3 RBC 3.22 L 3.00 L Hgb 9.3 L 8.9 L Hct 29.0 L 26.4 L MCV 90.1 87.8 MCH 29.0 29.5 MCHC 32.2 33.6 RDW 16.3 16.3 Plt Count 535 H 513 H MPV 7.6 7.5 Neut % (Auto) 65.6 68.2 Lymph % (Auto) 19.2 17.5 [place] % (Auto) 10.6 H 9.7 H Eos % (Auto) 3.8 3.6 Baso % (Auto) 0.8 1.0 Neut # (Auto) 6.7 6.3 Lymph # (Auto) 2.0 1.6 [place] # (Auto) 1.1 H 0.9 Eos # (Auto) 0.4 0.3 Baso # (Auto) 0.1 0.1 WBC Differential . . Differential Comment Auto diff final Auto diff final Lab - Chemistry Results 04/29/18 04/29/18 04/30/18 18:01 21:09 03:40 Sodium Potassium Chloride Carbon Dioxide Anion Gap BUN Creatinine Estimated GFR POC Glucose 247 H 315 H 129 H Random Glucose Calcium 04/30/18 04/30/18 04/30/18 03:44 08:31 09:53 Sodium 142 Potassium 3.5 Chloride 107 Carbon Dioxide 28.8 Anion Gap 6 BUN 11 Creatinine 0.80 Estimated GFR Greater than 89 POC Glucose 126 H 207 H Random Glucose 112 H Calcium 7.6 L 04/30/18 04/30/18 05/01/18 16:21 20:38 03:56 Sodium Potassium Chloride Carbon Dioxide Anion Gap BUN Creatinine Estimated GFR POC Glucose 183 H 203 H 153 H Random Glucose Calcium 05/01/18 05/01/18 05/01/18 04:34 07:42 11:36 Sodium 141 Potassium 3.8 Chloride 108 H Carbon Dioxide 28.1 Anion Gap 5 BUN 9 Creatinine 0.70 Estimated GFR Greater than 89 POC Glucose 154 H 237 H Random Glucose 146 H Calcium 7.8 L Imaging: ITS Impressions Abdomen/Pelvis CT 03/19/18 10:38 CONCLUSION: 1. Short segmental concentric wall thickening is identified in the distal descending colon. Colon malignancy needs to be excluded. 2. Calcified gallstones with moderate distention of the gallbladder. 3. No other significant abnormality. Chest CTA 03/19/18 13:37 CONCLUSION: 1. No evidence of acute pulmonary embolism. 2. Mild subpleural airspace disease and reticulations which may be chronic. 3. No evidence of segmental or lobar lung consolidation. Abdomen/Pelvis CTA 03/22/18 00:00 CONCLUSION: 1. Prominent gallbladder distention and surrounding inflammatory changes consistent with cholecystitis 2. No acute vascular findings in the abdomen or pelvis. Carotid Doppler Study 03/25/18 12:49 CONCLUSION: 1. Right Internal Carotid Artery: No significant plaque or narrowing. 2. Left Internal Carotid Artery: No significant plaque or narrowing. Lower Extremity Ultrasound 03/25/18 12:49 CONCLUSION: Bilateral greater saphenous vein measurements as above. No acute abnormalities are demonstrated. Percutaneous Cholangiogram 03/31/18 00:00 CONCLUSION: Uncomplicated percutaneous cholecystostomy as above. Cholangiopancreatography MRI 04/03/18 17:20 CONCLUSION: 1. Numerous filling defects within the central intrahepatic biliary ducts, common hepatic ducts, and common bile ducts. These represent stones and/or thrombus/hemorrhage. The linear defects are more likely related to hemorrhage. 2. Dilatation of the gallbladder with thickened gallbladder wall and a cholecystostomy tube in place. There is heterogeneous material within the gallbladder. Abdomen/Bladder Ultrasound 04/07/18 00:00 CONCLUSION: 1. No findings to account for the patient's hematuria. 2. Nonvisualization of the left kidney. 3. No evidence of hydronephrosis or nephrolithiasis in the right kidney. Abdomen X-Ray 04/21/18 00:00 CONCLUSION: Nonobstructive bowel gas pattern. Moderate to large stool throughout the colon. Chest X-Ray 04/25/18 00:00 CONCLUSION: Cardiomegaly with bibasilar airspace disease and probable pleural effusions. Venous Doppler Study 04/29/18 00:00 CONCLUSION: 1. Nonocclusive thrombus right IJ. Physical Exam: GENERAL: Alert and oriented. No acute distress. HEENT: Head atraumatic. Pupils reactive to light. Extraocular movements intact. Pale sclera. Oropharynx mucosa slightly dry. NECK: Supple without adenopathy. No swelling. LUNGS: Decreased breath sounds. HEART: S1 and S2 no murmurs or rubs or gallops. ABDOMEN: Bowel sounds diminished, soft, no tenderness. No masses palpable. Post laparoscopic cholecystectomy. ROCKY drain in place. Serous sanguinous drainage clear. No evidence of cellulitis. EXTREMITIES: No clubbing or cyanosis. Trace edema at the lower extremities SKIN: No rash NEUROLOGIC: Nonfocal. PSYCH: Calm and cooperative. Lines without evidence of infection. Assessment and Plan - Plan Sepsis present on admission. New episode of hypotension and white blood cell count increased. Not clear whether this is due to sepsis. Acute gangrenous cholecystitis. Patient is post lap cholecystectomy. Treated for gram-negative bacteremia E. coli and Klebsiella pneumonia. Acute cholecystitis s/p Cholecystostomy tube placement. Leukocytosis. White blood cell count elevated. Increase from previous day however. Non-ST elevation [place]. Patient underwent CABG. Recommendations: DC Zosyn IV Start oral augmentin. Follow clinical course. misha Damian Surgery: low BP was multifactorial : element of mild sepsis, prerenal. Had leucocytosis. If continues to do well and tolerates oral augmentin ok to discharge from ID standpoint with 5 more days of oral augmentin. Will sign off please call back if any change in clinical condition or questions.
--- NOTE | 2018-05-01 16:37 | P.PN ---
Subjective Interval history: Is in the chair eating. Says appetite is coming back and able to eat more. Still with some nausea no vomiting. No diarrhea constipation. Physical Exam Vital signs: Vital Signs 04/30/18 16:56 04/30/18 17:55 04/30/18 19:00 Temperature 97.9 F Pulse Rate 67 68 75 Respiratory Rate 18 Blood Pressure 112/63 Pulse Oximetry 98 04/30/18 20:00 04/30/18 21:00 04/30/18 22:00 Temperature Pulse Rate 75 71 65 Respiratory Rate Blood Pressure Pulse Oximetry 04/30/18 23:00 05/01/18 00:00 05/01/18 01:00 Temperature 98.1 F Pulse Rate 66 66 69 Respiratory Rate 18 Blood Pressure 93/60 L Pulse Oximetry 96 05/01/18 02:00 05/01/18 03:00 05/01/18 04:00 Temperature 98.2 F Pulse Rate 69 75 71 Respiratory Rate 18 Blood Pressure 126/60 Pulse Oximetry 98 05/01/18 05:00 05/01/18 06:00 05/01/18 07:00 Temperature 97.8 F Pulse Rate 72 72 76 Respiratory Rate 18 Blood Pressure 138/62 Pulse Oximetry 98 05/01/18 08:00 05/01/18 09:00 05/01/18 09:30 Temperature Pulse Rate 75 78 Respiratory Rate 18 Blood Pressure Pulse Oximetry 05/01/18 10:00 05/01/18 11:00 05/01/18 12:00 Temperature 98.2 F Pulse Rate 65 66 63 Respiratory Rate 18 Blood Pressure 94/53 L Pulse Oximetry 97 05/01/18 13:00 05/01/18 14:00 05/01/18 15:00 Temperature 99.1 F Pulse Rate 75 72 76 Respiratory Rate 18 Blood Pressure 109/56 L Pulse Oximetry 95 05/01/18 16:00 Temperature Pulse Rate 76 Respiratory Rate Blood Pressure Pulse Oximetry Intake & Output 04/30/18 05/01/18 05/01/18 18:59 06:59 18:59 Intake Total 1500 / 1500 530 / 530 1100 / 1100 Output Total 300 / 300 430 / 430 Balance 1200 / 1200 100 / 100 1100 / 1100 Weight 114.5 kg Intake: IV 1100 / 1100 50 / 50 1100 / 1100 NS Inj 1,000 ML @ 84 mls/hr IV. 1000 / 1000 1000 / 1000 CONT .[id number] [facility] Rx#:[id number] Zosyn 3.375 GM Premix 50 ML @ 100 / 100 50 / 50 100 / 100 100 mls/hr IV.SIG Q6H [facility] Rx#: [id number] Oral 400 / 400 480 / 480 Output: Urine 300 / 300 350 / 350 Wound Drainage 80 / 80 # 1 Right ROCKY Drain 80 / 80 Other: # Voids 0 Date of Last Bowel Movement 04/29/18 04/29/18 04/29/18 # Bowel Movements 0 0 Narrative: GENERAL: The patient is a very pleasant 67-year-old male, chronically ill, not in acute distress. Respiratory: Decreased breath sounds. Cardiovascular: Irregularly irregular Abdomen: Bowel sounds diminished, soft, no tenderness. Post laparoscopic cholecystectomy. J Extremities: No clubbing or cyanosis. Right arm with redness and pain at the previous IV site. Trace edema at the lower extremities. Muscle wasting. Weak handgrip. Skin: Pale. Mucous membranes slightly dry. NEUROLOGIC: Nonfocal. - Urinary Catheter Management 3-way Urethral Cath placed during this visit: yes, but has since been removed by the nurse Reason for continuing: Decision to DC catheter Insertion date: 04/13/18 Insertion time: 00:00 Removal date: 04/19/18 Removal time: 10:30 Results - Labs CBC & Chem 7: 05/01/18 04:34 05/01/18 04:34 Laboratory Results - last 24 hr 04/30/18 05/01/18 05/01/18 20:38 03:56 04:34 WBC 9.3 RBC 3.00 L Hgb 8.9 L Hct 26.4 L MCV 87.8 MCH 29.5 MCHC 33.6 RDW 16.3 Plt Count 513 H MPV 7.5 Neut % (Auto) 68.2 Lymph % (Auto) 17.5 Martin % (Auto) 9.7 H Eos % (Auto) 3.6 Baso % (Auto) 1.0 Neut # (Auto) 6.3 Lymph # (Auto) 1.6 Martin # (Auto) 0.9 Eos # (Auto) 0.3 Baso # (Auto) 0.1 WBC Differential . Differential Comment Auto diff final Sodium Potassium Chloride Carbon Dioxide Anion Gap BUN Creatinine Estimated GFR POC Glucose 203 H 153 H Random Glucose Calcium 12/05/01/18 05/01/18 04:34 07:42 11:36 WBC RBC Hgb Hct MCV MCH MCHC RDW Plt Count MPV Neut % (Auto) Lymph % (Auto) Martin % (Auto) Eos % (Auto) Baso % (Auto) Neut # (Auto) Lymph # (Auto) Martin # (Auto) Eos # (Auto) Baso # (Auto) WBC Differential Differential Comment Sodium 141 Potassium 3.8 Chloride 108 H Carbon Dioxide 28.1 Anion Gap 5 BUN 9 Creatinine 0.70 Estimated GFR Greater than 89 POC Glucose 154 H 237 H Random Glucose 146 H Calcium 7.8 L 05/01/18 15:33 WBC RBC Hgb Hct MCV MCH MCHC RDW Plt Count MPV Neut % (Auto) Lymph % (Auto) Martin % (Auto) Eos % (Auto) Baso % (Auto) Neut # (Auto) Lymph # (Auto) Martin # (Auto) Eos # (Auto) Baso # (Auto) WBC Differential Differential Comment Sodium Potassium Chloride Carbon Dioxide Anion Gap BUN Creatinine Estimated GFR POC Glucose 255 H Random Glucose Calcium Microbiology 04/26/18 00:55 Blood - Peripheral Aerobic Blood Culture - Final No growth in 5 days 04/26/18 00:55 Blood - Peripheral Anaerobic Blood Culture - Final No growth in 5 days 04/26/18 01:00 Blood - Peripheral Aerobic Blood Culture - Final No growth in 5 days 04/26/18 01:00 Blood - Peripheral Anaerobic Blood Culture - Final No growth in 5 days - Procedures CABG X3 ON 04-14 THOMAS-->LAD, SVG-->OM, SVG-->PDA PREPROCEDURE DIAGNOSES 1. Severe Multi Vessel Coronary Artery Disease. 2. Acute Myocardial Infarction (NSTEMI) 3. Acute Cholecystitis s/p percutaneous cholecystostomy tube placement 4. Sepsis and Bacteremia 5. Severe Pulmonary Insufficiency 6. Intramyocardial Coronary Vessels POSTPROCEDURE DIAGNOSES Same SURGICAL PROCEDURE 1. Urgent Off-pump Coronary Artery Bypass Grafting x 3 with Left Internal Mammary Artery (THOMAS) to Left Anterior Descending (LAD), reverse saphenous vein graft to obtuse Marginal branch of the left Circumflex artery, reverse saphenous vein graft to the posterior Descending branch of the right Coronary artery 2. Left leg Endoscopic Vein Browning 3. Ultrasound-guided dissection of the LAD 4. Intraoperative Vein Mapping. Cholecystectomy 04/24/2018 Assessment and Plan - Assessment (1) Intractable abdominal pain Code(s): R10.9 - Unspecified abdominal pain Status: Acute - Plan Mr. Bridges is a pleasant 67-year-old male with history of prior gastric bypass who has acute clinical course has been complicated by acute cholecystitis and Klebsiella, E. coli bacteremia requiring a week of IV antibiotics, now complicated by acute non-ST elevation myocardial infarction and underwent urgent off-pump CABG x 3 (THOMAS-->LAD, SVG-->OM, SVG-->PDA) on 04/14. Sepsis/ Acute cholecystitis -History of E. coli and Klebsiella bacteremia on this admission -Status post cholecystectomy by Dr. Hall 04/24 -repeat blood cultures -pending -DC Zosyn- will dc Meropenem. Augmentin until 05/06/18. -ID following. CABG x 3 (THOMAS-->LAD, SVG-->OM, SVG-->PDA) 04/14 NSTEMI CAD Hypotension -Blood pressure improved with 3 L fluid resuscitation -received 1 unit PRBC for hemoglobin 7.7 as this is trending down and patient was hypotensive; CBC today pending. - EF 60-65%, trace to mild MR on KELLY this admission - continue lipitor ,ASA -Further per cardiology and CT surgery Afib - now in SR on telemetry -continue Metoprolol, Cardizem and Amiodarone -started on Eliquis -cardiology/CT surgery following. Hematuria S/P cystoscopy- 04/11 Hematuria - resolved -voiding well- gross clear urine -Urology input appreciated Right arm pain, erythema and edema at the previous IV site. 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 Compresses and elevate arm. Seen by Dr Myers recommends conservative management. DM II - SSI. Severe protein calorie malnutrition Very low prealbumin at 7. Patient also with low albumin, decreased p.o. intake. Add ensure to diet. Consult dietitian. DVT GI prophylaxis -Teds SCDs -Pharmacological DVT prophylaxis per surgery and urology -Pepcid Discussed with the patient, nurse Discharge plan. Discharge when improved and cleared by consultants. Needs rehab, likely DC [facility] when accepted and bed available. PT following
[2018-05-01] MEDS: Lactobacillus Acidophilus/L. Spores Tablet PO SCH (21:32)
[2018-05-01] MEDS: Amoxicillin/Clavulanate 875/125 MG Tablet PO SCH (21:32)
--- NOTE | 2018-05-02 00:08 | P.PNCA ---
Subjective Interval history: No events overnight Eating better today Medications and Allergies Active Medications: Active Medications Acetaminophen (Tylenol) 650 mg PO Q4H PRN PRN Reason: Temp > 100.4 Last Admin: 03/27/18 09:04 Dose: 650 mg Hydrocodone Bitart/Acetaminophen (Reading 5/325) 1 tab PO Q3H PRN PRN Reason: PAIN SCALE 1 TO 5 Last Admin: 05/01/18 09:04 Dose: 1 tab Al Hydroxide/Mg Hydroxide (Milk Of Magnsofia Liq) 30 ml PO Q12H PRN PRN Reason: Mild Constipation Last Admin: 04/17/18 14:37 Dose: 30 ml Albuterol (Duoneb Neb (Prn)) 1 ampul NEB Q2HR NEB PRN PRN Reason: WHEEZING Last Admin: 04/17/18 00:13 Dose: 1 ampul Amiodarone HCl (Cordarone) 400 mg PO BID [facility] Last Admin: 05/01/18 21:32 Dose: 400 mg Amoxicillin/Clavulanate Potassium (Augmentin 875/125 Mg) 1 tab PO Q12HR [facility] Stop: 05/07/18 21:00 Last Admin: 05/01/18 21:32 Dose: 1 tab Apixaban (Eliquis) 5 mg PO BID [facility] Last Admin: 05/01/18 21:32 Dose: 5 mg Aspirin (Aspirin Chew) 81 mg PO DAILY [facility] Last Admin: 05/01/18 09:03 Dose: 81 mg Atorvastatin Calcium (Lipitor) 20 mg PO DAILY [facility] Last Admin: 05/01/18 09:03 Dose: 20 mg Bisacodyl (Dulcolax Supp) 10 mg RECTAL DAILY PRN PRN Reason: SEVERE CONSITIPATION Last Admin: 04/23/18 03:26 Dose: 10 mg Bisacodyl (Dulcolax Ec) 10 mg PO ONCE ONE Last Admin: 03/30/18 17:35 Dose: 10 mg Dextrose (D50w Vial) 50 ml IV.PUSH UNSCH PRN PRN Reason: PER HYPOGLYCEMIA PROTOCOL Last Admin: 04/19/18 16:09 Dose: 50 ml Diltiazem HCl (Cardizem) 30 mg PO QID [facility] Last Admin: 04/15/18 13:21 Dose: Not Given Docusate Sodium (Colace) 100 mg PO BID [facility] Last Admin: 05/01/18 21:33 Dose: Not Given Glucagon (Glucagon Inj) 1 mg OTHER PRN PRN PRN Reason: for Hypoglycemia Protocol Sodium Chloride (Ns Inj) 500 mls @ 30 mls/hr IV.SIG .Q10H [facility] Last Admin: 04/14/18 05:34 Dose: Not Given Sodium Chloride (Ns Inj) 1,000 mls @ 0 mls/hr IV.SIG BOLUS PRN PRN Reason: SEE LABEL COMMENTS Last Infusion: 04/26/18 07:42 Dose: Infused Sodium Chloride (Ns Inj) 1,000 mls @ 84 mls/hr IV.CONT .[id number] [facility] Last Admin: 05/01/18 12:39 Dose: 84 mls/hr Insulin Aspart (Novolog Insulin Correctional Sugar Inj) 0 unit SQ ACHS AND 3AM THOMAS; Protocol Last Admin: 05/01/18 21:48 Dose: 2 unit Lactobacillus Acidophilus (Lactinex) 1 tab PO BID [facility] Last Admin: 05/01/18 21:32 Dose: 1 tab Lactulose (Lactulose Liq) 30 ml PO DAILY PRN PRN Reason: SEVERE CONSITIPATION Last Admin: 04/23/18 08:22 Dose: 30 ml Magnesium Oxide (Mag-Ox) 400 mg PO BID [facility] Last Admin: 05/01/18 21:32 Dose: 400 mg Metformin HCl (Glucophage) 1,000 mg PO BID [facility] Last Admin: 04/16/18 10:08 Dose: Not Given Metoprolol Tartrate (Lopressor) 25 mg PO BID [facility] Last Admin: 05/01/18 21:32 Dose: 25 mg Miscellaneous (Pill Splitter) 1 each OTHER UNSCH PRN PRN Reason: PILL SPIT Morphine Sulfate (Morphine Inj) 2 mg IV.PUSH Q3H PRN PRN Reason: BREAKTHROUGH PAIN Last Admin: 04/30/18 05:15 Dose: 2 mg Multivitamins/Minerals (Theragran-M) 1 tab PO DAILY [facility] Last Admin: 05/01/18 09:04 Dose: 1 tab Ondansetron HCl (Zofran Inj) 4 mg IV.PUSH Q6H PRN PRN Reason: NAUSEA OR VOMITING Last Admin: 05/01/18 21:33 Dose: 4 mg Pantoprazole Sodium (Protonix) 40 mg PO DAILY [facility] Last Admin: 05/01/18 09:03 Dose: 40 mg Polyethylene Glycol (Miralax) 17 gm PO DAILY [facility] Last Admin: 05/01/18 09:02 Dose: 17 gm Prochlorperazine Edisylate (Compazine Inj) 10 mg IV.PUSH Q6H PRN PRN Reason: NAUSEA Last Admin: 04/24/18 16:07 Dose: 10 mg Senna/Docusate Sodium (Carlotta-Colace) 1 tab PO BID [facility] Last Admin: 05/01/18 21:32 Dose: 1 tab Sennosides (Senokot) 17.2 mg PO Q12H PRN PRN Reason: Moderate Constipation Last Admin: 05/01/18 21:32 Dose: 17.2 mg Sodium Biphosphate/Sodium Phosphate (Fleets Enema (Adult)) 118 ml RECTAL UNSCH PRN PRN Reason: SEE LABEL COMMENTS Sodium Chloride (Ns Flush) 2 ml IV.FLUSH BID [facility] Last Admin: 05/01/18 21:33 Dose: 2 ml Sodium Chloride (Ns Flush) 2 ml IV.FLUSH PRN PRN PRN Reason: FLUSH AFTER USING IV ACCESS Allergies Allergy/AdvReac Type Severity Reaction Status Date / Time No Known Allergies Allergy Verified 03/19/18 10:28 Home Medications Medication Instructions Recorded Confirmed Type atorvastatin 20 mg PO DAILY 03/19/18 03/19/18 History liraglutide [Victoza 2-Sonido] 0.6 mg SUBCUT DAILY 03/19/18 03/19/18 History metformin 1,000 mg PO BID 03/19/18 03/19/18 History omeprazole-sodium bicarbonate 1 cap PO DAILY 03/19/18 03/19/18 History pantoprazole 20 mg PO DAILY 03/19/18 03/19/18 History Physical Exam Vital signs: Vital Signs 05/01/18 01:00 05/01/18 02:00 05/01/18 03:00 Temperature 98.2 F Pulse Rate 69 69 75 Respiratory Rate 18 Blood Pressure 126/60 Pulse Oximetry 98 05/01/18 04:00 05/01/18 05:00 05/01/18 06:00 Temperature Pulse Rate 71 72 72 Respiratory Rate Blood Pressure Pulse Oximetry 05/01/18 07:00 05/01/18 08:00 05/01/18 09:00 Temperature 97.8 F Pulse Rate 76 75 78 Respiratory Rate 18 Blood Pressure 138/62 Pulse Oximetry 98 05/01/18 09:30 05/01/18 10:00 05/01/18 11:00 Temperature 98.2 F Pulse Rate 65 66 Respiratory Rate 18 18 Blood Pressure 94/53 L Pulse Oximetry 97 05/01/18 12:00 05/01/18 13:00 05/01/18 14:00 Temperature Pulse Rate 63 75 72 Respiratory Rate Blood Pressure Pulse Oximetry 05/01/18 15:00 05/01/18 16:00 05/01/18 17:00 Temperature 99.1 F Pulse Rate 76 76 75 Respiratory Rate 18 Blood Pressure 109/56 L Pulse Oximetry 95 05/01/18 18:00 05/01/18 19:20 Temperature 99.1 F Pulse Rate 78 76 Respiratory Rate 18 Blood Pressure 109/56 L Pulse Oximetry 95 Intake & Output 05/01/18 05/01/18 05/02/18 06:59 18:59 06:59 Intake Total 530 / 530 1920 / 1920 Output Total 430 / 430 250 / 250 Balance 100 / 100 1670 / 1670 Weight 114.5 kg Intake: IV 50 / 50 1100 / 1100 NS Inj 1,000 ML @ 84 mls/hr IV. 1000 / 1000 CONT .[id number] [facility] Rx#:[id number] Zosyn 3.375 GM Premix 50 ML @ 50 / 50 100 / 100 100 mls/hr IV.SIG Q6H [facility] Rx#: [id number] Oral 480 / 480 820 / 820 Output: Urine 350 / 350 250 / 250 Wound Drainage 80 / 80 # 1 Right ROCKY Drain 80 / 80 Other: # Voids 0 Date of Last Bowel Movement 04/29/18 04/29/18 04/29/18 # Bowel Movements 0 0 Narrative: GENERAL: The patient is a very pleasant 67-year-old male, chronically ill, not in acute distress. Respiratory: Decreased breath sounds. Cardiovascular: Irregularly irregular Abdomen: Bowel sounds diminished, soft, no tenderness. Post laparoscopic cholecystectomy. J Extremities: No clubbing or cyanosis. Right arm with redness and pain at the previous IV site. Trace edema at the lower extremities. Muscle wasting. Weak handgrip. Skin: Pale. Mucous membranes slightly dry. NEUROLOGIC: Nonfocal. - Urinary Catheter Management 3-way Urethral Cath placed during this visit: yes, but has since been removed by the nurse Reason for continuing: Decision to DC catheter Insertion date: 04/13/18 Insertion time: 00:00 Removal date: 04/19/18 Removal time: 10:30 Results 05/01/18 04:34 05/01/18 04:34 CBC 04/30/18 05/01/18 Range/Units 03:44 04:34 WBC 10.2 9.3 (4.0-11.0) th/mm3 RBC 3.22 L 3.00 L (4.50-5.90) mil/mm3 Hgb 9.3 L 8.9 L (13.0-17.0) gm/dL Hct 29.0 L 26.4 L (39.0-51.0) % Plt Count 535 H 513 H (150-450) th/mm3 Neut # (Auto) 6.7 6.3 (1.8-7.7) th/mm3 Lymph # (Auto) 2.0 1.6 (1.0-4.8) th/mm3 Orange # (Auto) 1.1 H 0.9 (0.0-0.9) th/mm3 Eos # (Auto) 0.4 0.3 (0.0-0.4) th/mm3 Baso # (Auto) 0.1 0.1 (0.0-0.2) th/mm3 Comprehensive Metabolic Panel 04/30/18 05/01/18 Range/Units 03:44 04:34 Sodium 142 141 (136-145) meq/L Potassium 3.5 3.8 (3.5-5.1) meq/L Chloride 107 108 H (98-107) meq/L Carbon Dioxide 28.8 28.1 (21.0-32.0) meq/L BUN 11 9 (7-18) mg/dL Creatinine 0.80 0.70 (0.60-1.30) mg/dL Calcium 7.6 L 7.8 L (8.5-10.1) mg/dL Intake and Output 05/01/18 05/01/18 05/02/18 14:59 22:59 06:59 Intake Total 1100 / 1100 820 / 820 Output Total 250 / 250 Balance 1100 / 1100 570 / 570 Intake: IV 1100 / 1100 NS Inj 1,000 ML @ 84 mls/hr IV. 1000 / 1000 CONT .[id number] [facility] Rx#:[id number] Zosyn 3.375 GM Premix 50 ML @ 100 / 100 100 mls/hr IV.SIG Q6H [facility] Rx#: [id number] Oral 820 / 820 Output: Urine 250 / 250 Other: Date of Last Bowel Movement 04/29/18 04/29/18 # Bowel Movements 0 Assessment and Plan - Assessment (1) NSTEMI (non-ST elevated myocardial infarction) Code(s): I21.4 - Non-ST elevation (NSTEMI) myocardial infarction Status: Acute (2) Afib Code(s): I48.91 - Unspecified atrial fibrillation Status: Acute (3) SIRS (systemic inflammatory response syndrome) Code(s): R65.10 - Systemic inflammatory response syndrome (SIRS) of non- infectious origin without acute organ dysfunction Status: Acute (4) Intractable abdominal pain Code(s): R10.9 - Unspecified abdominal pain Status: Acute - Plan 1) Abdominal pain/nausea/emesis Found to have cholecystitis s/p cholecystectomy 2) NSTEMI Found to have multivessel CAD CABG x3 THOMAS to LAD SVG to OM SVG to PDA 3) Afib New onset 04/15/18 Cardizem stopped due to being on vasopressor, con't Amiodarone 04/16/18 Converted back to AFib overnight, increase Metoprolol, may need to be started back on Cardizem Started back on Eliquis after cholecystectomy Once BP stable, need to restart AV mya blocking agents Currently stable on Amiodarone 4) Bacteremia KELLY negative for vegetation, no signs of endocarditis 5) Hematuria ASA restarted 6) MRCP showing multiple stones in the common bile duct
[2018-05-02] MEDS: Insulin NovoLOG Aspart Correctional Sugar Inj SQ SCH ×3 (03:54→11:46)
[2018-05-02 04:04] LABS: Baso # (Auto) 0.1 th/mm3 (0.0-0.2); Baso % (Auto) 0.6 % (0.0-2.0); Eos % (Auto) 0.3 % (0.0-4.0); Hematocrit 29.8 % (39.0-51.0); Hemoglobin 9.4 gm/dL (13.0-17.0); Lymph % (Auto) 7.1 % (9.0-44.0); Mean Corpuscular HGB Conc 31.5 % (32.0-36.0); Mean Corpuscular Hemoglobin 27.8 pg (27.0-34.0); Mean Corpuscular Volume 88.5 fL (80.0-100.0); Mean Platelet Volume 7.5 fL (7.0-11.0); Mono % (Auto) 7.2 % (0.0-8.0); Neut # (Auto) 11.8 th/mm3 (1.8-7.7); Neut % (Auto) 84.8 % (16.0-70.0); Platelet Count 579 th/mm3 (150-450); Red Blood Count 3.37 mil/mm3 (4.50-5.90); Red Cell Distribution Width 16.4 % (11.6-17.2); White Blood Count 13.9 th/mm3 (4.0-11.0)
[2018-05-02 04:30] LABS: Anion Gap 5 meq/L (5-15); Blood Urea Nitrogen 11 mg/dL (7-18); Calcium 7.4 mg/dL (8.5-10.1); Carbon Dioxide 29.7 meq/L (21.0-32.0); Chloride 107 meq/L (98-107); Glomerular Filtration Rate Greater Than 89 mL/min (>89); Glucose,Random 189 mg/dL (74-106); Potassium 3.8 meq/L (3.5-5.1); Sodium 142 meq/L (136-145)
[2018-05-02 04:36] LABS: Albumin 1.7 g/dL (3.4-5.0); Calcium-Albumin Corrected 9.2 mg/dL (8.5-10.1)
[2018-05-02] MEDS: Magnesium Oxide 400 MG Tablet PO SCH (09:04)
[2018-05-02] MEDS: Amiodarone 200 MG Tablet PO SCH (09:04)
[2018-05-02] MEDS: Multivitamin/Minerals Therapeutic Tablet PO SCH (09:05)
[2018-05-02] MEDS: Senna/Docusate Sodium 8.6/50 MG Tablet PO SCH (09:05)
[2018-05-02] MEDS: Metoprolol Tartrate 25 MG Tablet PO SCH (09:05)
[2018-05-02] MEDS: Lactobacillus Acidophilus/L. Spores Tablet PO SCH (09:05)
[2018-05-02] MEDS: Polyethylene Glycol 3350 17 GM Packet PO SCH (09:05)
[2018-05-02] MEDS: Amoxicillin/Clavulanate 875/125 MG Tablet PO SCH (09:05)
[2018-05-02] MEDS: Docusate Sodium 100 MG Capsule PO SCH (09:05)
[2018-05-02] MEDS: Sod Chloride 0.9% Inj 1,000 ML IV.CONT SCH (09:06)
--- NOTE | 2018-05-02 09:49 | P.PNCV ---
- Note Subjective/Hospital Course: 67-year-old male who presented to [facility] 03/19/18 due to nausea, vomiting and abdominal pain. He states that he was awakened at 6 a.m. with left -sided flank pain and left mid back pain radiating to the left lower quadrant. He developed nausea and vomiting secondary to the pain. he was incidentally found to have cholecystitis, perc burt tube was placed , Trop was + underwent cardiac cath by Dr Pérez : mid LAD 80%, Left Circ 70 % lesion, RCA 100% occluded in the mid portion with [id number] and right-to- right collaterals supplying the distal portion. Blood cultures grew klebsiella pneumoniae and E coli , followed by ID and recommended to at least complete one week course of IV antibiotics prior to surgery PAST MEDICAL HISTORY: Diabetes, GERD, Hyperlipidemia, morbid obesity with BMI 40, History of gastric bypass. 03/27 pt is pain free at this time , has perc burt drain US of lower ext neg for DVT, Carotid US no stenosis continues on IV antibiotics per ID : VIVIENNE cefepime IV Ceftriaxone IV once a day (stop date: 04/03/2018) after which we will repeat BCX on 04/04/18. If these repeat bcx are negative at 48 hrs and patient clinically doing well will clear him from CABG. VIVIENNE Flagyl consult PT 03/28 pain free will follow / schedule for surgery next week when cleared by ID 03/29 still has some mild right flank pain burt drain in place no chest pain 04/03 c/o of nausea and vomiting since last night , also some abdominal pain for repeat CT abdomen today also repeat Blood cultures pending 04/05 still complaining of nausea and vomiting burt drain in place 04/10 events noted over weekend blood culture neg 04/03 , off all antibiotics still has burt drain , nursing flushing periodically per Uro / will perform bedside cystoscopy at bedside this week / urine has cleared since Heparin vivienne General surgery / will see after 3-4 weeks after CABG to al for cholecystectomy will discuss timing for surgery with Dr Carlin no further complaints of nausea / vomiting 04/11 resting comfortably await bedside cystoscopy/ and clearance from urology then plan for timing of CABG, needs to be placed back on ASA 04/12 cleared by Urology for surgery " s/p bedside [place] cystoscopy did not show any abnormalities within the bladder there were no bladder tumors identified. Retroflex examination of the bladder neck showed an area of friability at the prostate which was most likely the area that was bleeding at the time. per Urology: recommend placement of 3 way scales prior to surgery pt ambulating with walker, no nausea scheduled for surgery on tuesday will need 3 way cath placed by urology on 04/[address] catheter placed by Urology stable for surgery in am 04/14 SURGICAL PROCEDURE 1. Urgent Off-pump Coronary Artery Bypass Grafting x 3 with Left Internal Mammary Artery (THOMAS) to Left Anterior Descending (LAD), reverse saphenous vein graft to obtuse Marginal branch of the left Circumflex artery, reverse saphenous vein graft to the posterior Descending branch of the right Coronary artery 2. Left leg Endoscopic Vein [place] 3. Ultrasound-guided dissection of the LAD 4. Intraoperative Vein Mapping. 04/15 Doing well clinically Weaning [place]-Synephrine drip as tolerated Awaiting LFT results Maintain in ICU Continue chest tube to drainage 04/16 Clinically and hematocrit stable New onset atrial fibrillation last night. Presently in normal sinus rhythm on amiodarone drip Increase beta-janeth to 25 twice daily Okay to transfer to [facility] later today 04/17 converted to NSR transition to po amiodarone leave chest tubes in today / clots / bloody drainage OOB ambulate, gentle diuresis 04/18 converted to NSR, continue amiodarone po f/u labs in am if goes back into afib, will need NOAC chest tube dc without difficulty f/u CXR in am PT/OT eval for transfer to [place] next 24-48hrs 04/19 discharge summary completed had issues with low blood sugars levemir dc insulin sliding scale dosing decreased 04/20 BGM's improved discussed with Dr Pérez will start eliquis, dc plavix stable to transfer to rehab today 04/21 pt having reoccurring nausea and vomiting with some abdominal discomfort does not feel as well today Dr Hall notified , ok to hold eliquis 48hrs prior to any procedure ok for Lap burt per Dr Carlin 04/22/18 No c/o presently. preop for Tuesday for CCx 04/23/18 No complaints today. Preop for CCX 04/24 for Lap burt today resume eliquis when ok with General surgery eval for [place]/ SNF when cleared by general surgery 04/28 Clinically better today Had episode of atrial fibrillation. Treated with IV amiodarone. Presently in normal sinus rhythm on p.o. amiodarone Will need anticoagulation following stabilization of his hemoglobin levels. 04/30 Clinically stable Okay to discharge from CT surgery standpoint 05/02 remains in NSR still nausea, but improving on room air stable to dc to rehab Objective: Vital Signs - 24 hr 05/01/18 10:00 05/01/18 11:00 05/01/18 12:00 Temperature 98.2 F Pulse Rate 65 66 63 Respiratory Rate 18 Blood Pressure 94/53 L Pulse Oximetry 97 05/01/18 13:00 05/01/18 14:00 05/01/18 15:00 Temperature 99.1 F Pulse Rate 75 72 76 Respiratory Rate 18 Blood Pressure 109/56 L Pulse Oximetry 95 05/01/18 16:00 05/01/18 17:00 05/01/18 18:00 Temperature Pulse Rate 76 75 78 Respiratory Rate Blood Pressure Pulse Oximetry 05/01/18 19:00 05/01/18 19:20 05/01/18 20:00 Temperature 97.6 F Pulse Rate 75 76 76 Respiratory Rate 20 Blood Pressure 116/62 Pulse Oximetry 95 05/01/18 21:00 05/01/18 22:00 05/01/18 23:00 Temperature 97.9 F Pulse Rate 78 78 70 Respiratory Rate 20 Blood Pressure 106/61 Pulse Oximetry 95 05/02/18 00:00 05/02/18 01:00 05/02/18 02:00 Temperature Pulse Rate 74 76 75 Respiratory Rate Blood Pressure Pulse Oximetry 05/02/18 03:00 05/02/18 03:33 05/02/18 04:00 Temperature Pulse Rate 80 78 76 Respiratory Rate 20 Blood Pressure 116/62 Pulse Oximetry 95 05/02/18 05:00 05/02/18 06:00 05/02/18 07:00 Temperature 97.8 F Pulse Rate 80 78 79 Respiratory Rate 18 Blood Pressure 107/63 Pulse Oximetry 95 05/02/18 08:00 05/02/18 09:00 Temperature Pulse Rate 75 78 Respiratory Rate Blood Pressure Pulse Oximetry Labs: Laboratory Results - last 12 hr 05/01/18 05/02/18 05/02/18 21:30 03:22 03:40 WBC 13.9 H RBC 3.37 L Hgb 9.4 L Hct 29.8 L MCV 88.5 MCH 27.8 MCHC 31.5 L RDW 16.4 Plt Count 579 H MPV 7.5 Neut % (Auto) 84.8 H Lymph % (Auto) 7.1 L [place] % (Auto) 7.2 Eos % (Auto) 0.3 Baso % (Auto) 0.6 Neut # (Auto) 11.8 H Lymph # (Auto) 1.0 [place] # (Auto) 1.0 H Eos # (Auto) 0.0 Baso # (Auto) 0.1 WBC Differential . Differential Comment Auto diff final Sodium Potassium Chloride Carbon Dioxide Anion Gap BUN Creatinine Estimated GFR POC Glucose 176 H 188 H Random Glucose Calcium Calcium Adj for Albumin Albumin 05/02/18 03:40 WBC RBC Hgb Hct MCV MCH MCHC RDW Plt Count MPV Neut % (Auto) Lymph % (Auto) [place] % (Auto) Eos % (Auto) Baso % (Auto) Neut # (Auto) Lymph # (Auto) [place] # (Auto) Eos # (Auto) Baso # (Auto) WBC Differential Differential Comment Sodium 142 Potassium 3.8 Chloride 107 Carbon Dioxide 29.7 Anion Gap 5 BUN 11 Creatinine 0.67 Estimated GFR Greater than 89 POC Glucose Random Glucose 189 H Calcium 7.4 L* Calcium Adj for Albumin 9.2 Albumin 1.7 L Result Diagrams: 05/02/18 03:40 05/02/18 03:40 - Plan (3) Afib Plan: in NSR > afib > NSR po amiodarone (5) S/P CABG (coronary artery bypass graft) Plan: Intractable abdominal pain Sepsis/ Acute cholecystitis -History of E. coli and Klebsiella bacteremia on this admission/ resolved -Status post cholecystectomy by Dr. Hall 04/24 - CABG x 3 (THOMAS-->LAD, SVG-->OM, SVG-->PDA) 04/14 NSTEMI CAD - EF 60-65%, trace to mild MR on KELLY this admission - continue lipitor ,ASA Afib - now in SR on telemetry -continue Metoprolol, Cardizem and Amiodarone on Eliquis Hematuria S/P cystoscopy- 04/11 Hematuria - resolved -Urology input appreciated Right arm pain, erythema and edema at the previous IV site. 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 Compresses and elevate arm. Seen by Dr Myers recommends conservative management. DM II - SSI. Severe protein calorie malnutrition Very low prealbumin at 7. Patient also with low albumin, decreased p.o. intake. Add ensure to diet. Consult dietitian. DC to [place] rehab when accepted and bed available. ok to transfer to [place] from CV standpoint
[2018-05-02] MEDS ORDERED: Amiodarone 200 MG Tablet PO SCH (14:43)
--- NOTE | 2018-05-02 16:03 | P.PNGS ---
Subjective Interval history: Up to chair Feeling much better today Ready to go to rehab Physical Exam Vital signs: Vital Signs 05/01/18 17:00 05/01/18 18:00 05/01/18 19:00 Temperature Pulse Rate 75 78 75 Respiratory Rate Blood Pressure Pulse Oximetry 05/01/18 19:20 05/01/18 20:00 05/01/18 21:00 Temperature 97.6 F Pulse Rate 76 76 78 Respiratory Rate 20 Blood Pressure 116/62 Pulse Oximetry 95 05/01/18 22:00 05/01/18 23:00 05/02/18 00:00 Temperature 97.9 F Pulse Rate 78 70 74 Respiratory Rate 20 Blood Pressure 106/61 Pulse Oximetry 95 05/02/18 01:00 05/02/18 02:00 05/02/18 03:00 Temperature Pulse Rate 76 75 80 Respiratory Rate Blood Pressure Pulse Oximetry 05/02/18 03:33 05/02/18 04:00 05/02/18 05:00 Temperature Pulse Rate 78 76 80 Respiratory Rate 20 Blood Pressure 116/62 Pulse Oximetry 95 05/02/18 06:00 05/02/18 07:00 05/02/18 08:00 Temperature 97.8 F Pulse Rate 78 79 75 Respiratory Rate 18 Blood Pressure 107/63 Pulse Oximetry 95 05/02/18 09:00 05/02/18 10:00 05/02/18 11:00 Temperature 98.0 F Pulse Rate 78 64 64 Respiratory Rate 18 Blood Pressure 92/50 L Pulse Oximetry 100 05/02/18 12:00 05/02/18 13:00 05/02/18 14:00 Temperature Pulse Rate 75 69 65 Respiratory Rate Blood Pressure Pulse Oximetry Intake & Output 05/01/18 05/02/18 05/02/18 18:59 06:59 18:59 Intake Total 1920 / 1920 500 / 500 Output Total 250 / 250 200 / 200 Balance 1670 / 1670 300 / 300 Weight 114 kg Intake: IV 1100 / 1100 NS Inj 1,000 ML @ 84 mls/hr IV. 1000 / 1000 CONT .[id number] THOMAS Rx#:[id number] Zosyn 3.375 GM Premix 50 ML @ 100 / 100 100 mls/hr IV.SIG Q6H THOMAS Rx#: [id number] Oral 820 / 820 500 / 500 Output: Urine 250 / 250 200 / 200 Other: # Voids 1 Date of Last Bowel Movement 04/29/18 05/02/18 # Bowel Movements 0 1 Narrative: Alert and awake Abd: soft; umbilical dressing c/d/i; prior RUQ ROCKY has been removed---dressing in place - Urinary Catheter Management 3-way Urethral Cath placed during this visit: yes, but has since been removed by the nurse Reason for continuing: Decision to DC catheter Insertion date: 04/13/18 Insertion time: 00:00 Removal date: 04/19/18 Removal time: 10:30 Results - Labs 05/02/18 03:40 05/02/18 03:40 Laboratory Results - last 24 hr 05/01/18 05/02/18 05/02/18 21:30 03:22 03:40 WBC 13.9 H RBC 3.37 L Hgb 9.4 L Hct 29.8 L MCV 88.5 MCH 27.8 MCHC 31.5 L RDW 16.4 Plt Count 579 H MPV 7.5 Neut % (Auto) 84.8 H Lymph % (Auto) 7.1 L [place] % (Auto) 7.2 Eos % (Auto) 0.3 Baso % (Auto) 0.6 Neut # (Auto) 11.8 H Lymph # (Auto) 1.0 [place] # (Auto) 1.0 H Eos # (Auto) 0.0 Baso # (Auto) 0.1 WBC Differential . Differential Comment Auto diff final Sodium Potassium Chloride Carbon Dioxide Anion Gap BUN Creatinine Estimated GFR POC Glucose 176 H 188 H Random Glucose Calcium Calcium Adj for Albumin Albumin 05/02/18 05/02/18 03:40 11:14 WBC RBC Hgb Hct MCV MCH MCHC RDW Plt Count MPV Neut % (Auto) Lymph % (Auto) [place] % (Auto) Eos % (Auto) Baso % (Auto) Neut # (Auto) Lymph # (Auto) [place] # (Auto) Eos # (Auto) Baso # (Auto) WBC Differential Differential Comment Sodium 142 Potassium 3.8 Chloride 107 Carbon Dioxide 29.7 Anion Gap 5 BUN 11 Creatinine 0.67 Estimated GFR Greater than 89 POC Glucose 141 H Random Glucose 189 H Calcium 7.4 L* Calcium Adj for Albumin 9.2 Albumin 1.7 L - Imaging Imaging: ITS Impressions Abdomen/Pelvis CT 03/19/18 10:38 CONCLUSION: 1. Short segmental concentric wall thickening is identified in the distal descending colon. Colon malignancy needs to be excluded. 2. Calcified gallstones with moderate distention of the gallbladder. 3. No other significant abnormality. Chest CTA 03/19/18 13:37 CONCLUSION: 1. No evidence of acute pulmonary embolism. 2. Mild subpleural airspace disease and reticulations which may be chronic. 3. No evidence of segmental or lobar lung consolidation. Abdomen/Pelvis CTA 03/22/18 00:00 CONCLUSION: 1. Prominent gallbladder distention and surrounding inflammatory changes consistent with cholecystitis 2. No acute vascular findings in the abdomen or pelvis. Carotid Doppler Study 03/25/18 12:49 CONCLUSION: 1. Right Internal Carotid Artery: No significant plaque or narrowing. 2. Left Internal Carotid Artery: No significant plaque or narrowing. Lower Extremity Ultrasound 03/25/18 12:49 CONCLUSION: Bilateral greater saphenous vein measurements as above. No acute abnormalities are demonstrated. Percutaneous Cholangiogram 03/31/18 00:00 CONCLUSION: Uncomplicated percutaneous cholecystostomy as above. Cholangiopancreatography MRI 04/03/18 17:20 CONCLUSION: 1. Numerous filling defects within the central intrahepatic biliary ducts, common hepatic ducts, and common bile ducts. These represent stones and/or thrombus/hemorrhage. The linear defects are more likely related to hemorrhage. 2. Dilatation of the gallbladder with thickened gallbladder wall and a cholecystostomy tube in place. There is heterogeneous material within the gallbladder. Abdomen/Bladder Ultrasound 04/07/18 00:00 CONCLUSION: 1. No findings to account for the patient's hematuria. 2. Nonvisualization of the left kidney. 3. No evidence of hydronephrosis or nephrolithiasis in the right kidney. Abdomen X-Ray 04/21/18 00:00 CONCLUSION: Nonobstructive bowel gas pattern. Moderate to large stool throughout the colon. Chest X-Ray 04/25/18 00:00 CONCLUSION: Cardiomegaly with bibasilar airspace disease and probable pleural effusions. Venous Doppler Study 04/29/18 00:00 CONCLUSION: 1. Nonocclusive thrombus right IJ. Assessment and Plan - Assessment (1) Status post laparoscopic cholecystectomy Code(s): Z90.49 - Acquired absence of other specified parts of digestive tract Status: Acute (2) Cholecystitis Code(s): K81.9 - Cholecystitis, unspecified Status: Acute Plan: 67 year old male with afib RVR; s/p cardiac cath; cholecystics -S/p CABG -s/p lap burt with drain placement -Continue Augmentin per ID recommendations for 5-7 -Will continue to follow peripherally while at [place] - clear for DC to [place] (3) Intractable abdominal pain Code(s): R10.9 - Unspecified abdominal pain Status: Acute (4) NSTEMI (non-ST elevated myocardial infarction) Code(s): I21.4 - Non-ST elevation (NSTEMI) myocardial infarction Status: Acute (5) Afib Code(s): I48.91 - Unspecified atrial fibrillation Status: Acute
--- NOTE | 2018-05-03 00:16 | P.PNCA ---
Subjective Interval history: No events overnight Feeling better, for rehab today Medications and Allergies Allergies Allergy/AdvReac Type Severity Reaction Status Date / Time No Known Allergies Allergy Verified 05/02/18 18:41 Home Medications Medication Instructions Recorded Confirmed Type atorvastatin 20 mg PO DAILY 03/19/18 05/02/18 History Physical Exam Vital signs: Vital Signs 05/02/18 01:00 05/02/18 02:00 05/02/18 03:00 Temperature Pulse Rate 76 75 80 Respiratory Rate Blood Pressure Pulse Oximetry 05/02/18 03:33 05/02/18 04:00 05/02/18 05:00 Temperature Pulse Rate 78 76 80 Respiratory Rate 20 Blood Pressure 116/62 Pulse Oximetry 95 05/02/18 06:00 05/02/18 07:00 05/02/18 08:00 Temperature 97.8 F Pulse Rate 78 79 75 Respiratory Rate 18 Blood Pressure 107/63 Pulse Oximetry 95 05/02/18 09:00 05/02/18 10:00 05/02/18 11:00 Temperature 98.0 F Pulse Rate 78 64 64 Respiratory Rate 18 Blood Pressure 92/50 L Pulse Oximetry 100 05/02/18 12:00 05/02/18 13:00 05/02/18 14:00 Temperature Pulse Rate 75 69 65 Respiratory Rate Blood Pressure Pulse Oximetry Intake & Output 05/02/18 05/02/18 05/03/18 06:59 18:59 06:59 Intake Total 500 / 500 Output Total 200 / 200 Balance 300 / 300 Weight 114 kg Intake: Oral 500 / 500 Output: Urine 200 / 200 Other: # Voids 1 Date of Last Bowel Movement 05/02/18 # Bowel Movements 1 Narrative: GENERAL: NAD, AAOx3 SKIN: Warm and dry. HEAD: Atraumatic. Normocephalic. EYES: Pupils equal and round. No scleral icterus. No injection or drainage. ENT: No nasal bleeding or discharge. Mucous membranes pink and moist. NECK: Trachea midline. No JVD. CARDIOVASCULAR: Regular rate and rhythm. RESPIRATORY: No accessory muscle use. Clear to auscultation. Breath sounds equal bilaterally. GASTROINTESTINAL: Abdomen soft, non-tender, nondistended. Hepatic and splenic margins not palpable. MUSCULOSKELETAL: Extremities without clubbing, cyanosis, or edema. No obvious deformities. NEUROLOGICAL: Awake and alert. No obvious cranial nerve deficits. Motor grossly within normal limits. Five out of 5 muscle strength in the arms and legs. Normal speech. PSYCHIATRIC: Appropriate mood and affect; insight and judgment normal. - Urinary Catheter Management 3-way Urethral Cath placed during this visit: yes, but has since been removed by the nurse Reason for continuing: Decision to DC catheter Insertion date: 04/13/18 Insertion time: 00:00 Removal date: 04/19/18 Removal time: 10:30 Results 05/02/18 03:40 05/02/18 03:40 CBC 05/01/18 05/02/18 Range/Units 04:34 03:40 WBC 9.3 13.9 H (4.0-11.0) th/mm3 RBC 3.00 L 3.37 L (4.50-5.90) mil/mm3 Hgb 8.9 L 9.4 L (13.0-17.0) gm/dL Hct 26.4 L 29.8 L (39.0-51.0) % Plt Count 513 H 579 H (150-450) th/mm3 Neut # (Auto) 6.3 11.8 H (1.8-7.7) th/mm3 Lymph # (Auto) 1.6 1.0 (1.0-4.8) th/mm3 [place] # (Auto) 0.9 1.0 H (0.0-0.9) th/mm3 Eos # (Auto) 0.3 0.0 (0.0-0.4) th/mm3 Baso # (Auto) 0.1 0.1 (0.0-0.2) th/mm3 Comprehensive Metabolic Panel 05/01/18 05/02/18 Range/Units 04:34 03:40 Sodium 141 142 (136-145) meq/L Potassium 3.8 3.8 (3.5-5.1) meq/L Chloride 108 H 107 (98-107) meq/L Carbon Dioxide 28.1 29.7 (21.0-32.0) meq/L BUN 9 11 (7-18) mg/dL Creatinine 0.70 0.67 (0.60-1.30) mg/dL Calcium 7.8 L 7.4 L* (8.5-10.1) mg/dL Albumin 1.7 L (3.4-5.0) g/dL Assessment and Plan - Assessment (1) NSTEMI (non-ST elevated myocardial infarction) Code(s): I21.4 - Non-ST elevation (NSTEMI) myocardial infarction Status: Acute (2) Afib Code(s): I48.91 - Unspecified atrial fibrillation Status: Acute (3) SIRS (systemic inflammatory response syndrome) Code(s): R65.10 - Systemic inflammatory response syndrome (SIRS) of non- infectious origin without acute organ dysfunction Status: Acute (4) Intractable abdominal pain Code(s): R10.9 - Unspecified abdominal pain Status: Acute - Plan 1) Abdominal pain/nausea/emesis Found to have cholecystitis s/p cholecystectomy 2) NSTEMI Found to have multivessel CAD CABG x3 THOMAS to LAD SVG to OM SVG to PDA 3) Afib New onset 04/15/18 Cardizem stopped due to being on vasopressor, con't Amiodarone 04/16/18 Converted back to AFib overnight, increase Metoprolol, may need to be started back on Cardizem Started back on Eliquis after cholecystectomy Discussed with CT surgery, plan to decrease Amiodarone to 200mg daily Attempt to wean off, continue on Metoprolol If further episodes of Afib with RVR, then would increase Metoprolol or add Cardizem 4) Bacteremia KELLY negative for vegetation, no signs of endocarditis 5) Hematuria ASA restarted 6) MRCP showing multiple stones in the common bile duct
== END 2018-05-02 16:38 ==
LOC: NEPE 10:22 → NEDA 16:03 → N06 19:00 → HCPC 23:21 → HCIS 03-28 17:56 → HCVI 04-14 14:26 → HCPC 04-16 17:45 → HCVI 04-25 19:30 → HCPC 04-26 17:14
PROVIDERS: ADMIT Hospitalist; ATTEND Hospitalist
DX: E86.0 Dehydration; Z87.891 Personal history of nicotine dependence; Z79.84 Long term (current) use of oral hypoglycemic drugs; I95.9 Hypotension, unspecified; Z68.39 Body mass index [BMI] 39.0-39.9, adult; M19.90 Unspecified osteoarthritis, unspecified site; Z98.84 Bariatric surgery status; I25.10 Atherosclerotic heart disease of native coronary artery without angina pectoris; Z79.899 Other long term (current) drug therapy; K80.62 Calculus of gallbladder and bile duct with acute cholecystitis without obstruction; R31.0 Gross hematuria; M54.5 Low back pain; E43 Unspecified severe protein-calorie malnutrition; I21.4 Non-ST elevation (NSTEMI) myocardial infarction; E66.01 Morbid (severe) obesity due to excess calories; B96.1 Klebsiella pneumoniae [K. pneumoniae] as the cause of diseases classified elsewhere; A41.59 Other Gram-negative sepsis; I82.C11 Acute embolism and thrombosis of right internal jugular vein; E78.5 Hyperlipidemia, unspecified; E87.6 Hypokalemia; G89.29 Other chronic pain; I48.91 Unspecified atrial fibrillation; Z80.0 Family history of malignant neoplasm of digestive organs; R00.0 Tachycardia, unspecified; K21.9 Gastro-esophageal reflux disease without esophagitis; K59.00 Constipation, unspecified; E11.65 Type 2 diabetes mellitus with hyperglycemia; B96.20 Unspecified Escherichia coli [E. coli] as the cause of diseases classified elsewhere

== ENCOUNTER 2018-05-07 16:30 | Inpatient (IN) ==
[2018-05-07] MEDS ORDERED: Bisacodyl 10 MG Supp RECTAL PRN (16:56)
[2018-05-07] MEDS ORDERED: Dextrose 50% in Water 50 ML Vial IV.PUSH PRN (16:56)
[2018-05-07] MEDS ORDERED: Acetaminophen 325 MG Tablet PO PRN (16:56)
[2018-05-07] MEDS ORDERED: Amoxicillin/Clavulanate 875/125 MG Tablet PO ONE (17:14)
[2018-05-07] MEDS ORDERED: PEG 3350/E-Lyte Soln 4000 ML Bottle PO ONE (17:23)
--- NOTE | 2018-05-07 17:51 | P.HPIM ---
History of Present Illness Service: Hospitalist Primary Care Physician: UNKNOWN History of Present Illness: This is a 67yo male with a PMHX significant for diabetes, GERD, hyperlipidemia morbid obesity with BMI 40, history of gastric bypass, that was initially admitted to [facility] on March 19, 2018 with nausea, vomiting, abdominal pain left side flank pain left mid back pain. Patient had a complicated hospital course was found to have elevated troponin and underwent subsequent cardiac catheterization by Dr. Pérez which revealed significant coronary artery disease. He is also found to have acute cholecystitis. Patient developed bacteremia with blood cultures growing Klebsiella and E. coli. He was followed by infectious disease. Once patient was stable, he underwent three-vessel CABG performed by Dr. Carlin on April 14. Patient developed new onset atrial fibrillation and was treated with amiodarone drip before being transitioned to oral amiodarone. Patient was started on Eliquis. Patient was followed by general surgery and underwent a laparoscopic cholecystectomy on April 24. On May 02, patient was admitted to [facility] for comprehensive rehabilitation. Patient was followed by [facility]. Patient developed a GI bleed. His aspirin and Eliquis were held. He was seen in consultation by GI who recommended endoscopy. Patient was followed by cardiology Dr. Pérez who cleared patient for endoscopy procedure with intermediate risk. Patient underwent colonoscopy procedure today however procedure was aborted secondary to poor prep. Patient has continued to have issues with anemia and hypotension. He has been unable to participate with physical therapy. As such, patient was discharged from [facility] and admitted back to [facility]. Patient is scheduled to undergo colonoscopy tomorrow morning per GI. Colonoscopy prep has been ordered. He denies any acute medical complaints at this time. He denies any fever or chills. He denies any dizziness, lightheadedness, headache, vision changes, numbness/tingling or focal weakness. He does endorse generalized weakness. He denies any chest pain , cough or shortness of breath. He denies any nausea, vomiting or abdominal pain. He reports having a good appetite. He denies any urinary difficulties, diarrhea or constipation. Inpatient Certification Inpatient Certification: I certify that the inpatient services were ordered in accordance with Medicare regulations governing the order. This includes certification that hospital inpatient services are reasonable and necessary and in the case of services not specified as inpatient-only under 42 CFR 419.22(n), that they are appropriately provided as inpatient services in accordance to with the 2-midnight benchmark under 43 CFR 412.3(e) Estimated Total Length of Stay (Days): 3 Plans for Post Hospital Care: Not yet determined Review of Systems Review of Systems: all other systems reviewed are negative [facility] History Medical History Atrial fibrillation (Acute) Multi-vessel coronary artery stenosis (Acute) Diabetes (Acute) GERD (gastroesophageal reflux disease) (Acute) Hypercholesteremia (Acute) MDRO (multiple drug resistant organisms) resistance (Acute ~03/26/18) Surgical History Surgical History Hx laparoscopic cholecystectomy (Acute) S/P CABG x 3 (Acute) H/O gastric bypass (Acute) Family History Family History Other Family history non-contributory Social History Social History Substance History: No History of Abuse Second Hand Smoke Exposure: Yes Smoking Status: Former smoker Tobacco Type: Cigarettes How Often Do You Have a Drink Containing Alcohol: Never Medications and Allergies Allergies Allergy/AdvReac Type Severity Reaction Status Date / Time No Known Allergies Allergy Verified 05/02/18 18:41 Active Medications: Active Medications Acetaminophen (Tylenol) 650 mg PO Q4H PRN PRN Reason: Temp > 100.4 Al Hydroxide/Mg Hydroxide (Milk Of Elier Mccallum) 30 ml PO Q12H PRN PRN Reason: Mild Constipation Albuterol (Duoneb Neb (Prn)) 1 ampul NEB Q2HR NEB PRN PRN Reason: SHORTNESS OF BREATH/WHEEZING Amiodarone HCl (Cordarone) 200 mg PO DAILY THOMAS Atorvastatin Calcium (Lipitor) 20 mg PO DAILY THOMAS Bisacodyl (Dulcolax Supp) 10 mg RECTAL DAILY PRN PRN Reason: SEVERE CONSITIPATION Dextrose (D50w Vial) 50 ml IV.PUSH UNSCH PRN PRN Reason: PER HYPOGLYCEMIA PROTOCOL Diltiazem HCl (Cardizem Cd 24hr) 120 mg PO DAILY THOMAS Folic Acid (Folic Acid) 1 mg PO DAILY THOMAS Glucagon (Glucagon Inj) 1 mg OTHER PRN PRN PRN Reason: for Hypoglycemia Protocol Insulin Aspart (Novolog Insulin Correctional Sugar Inj) 0 unit SQ ACHS [facility]; Protocol Lactulose (Lactulose Liq) 30 ml PO DAILY PRN PRN Reason: SEVERE CONSITIPATION Metformin [facility] ([facility]) [facility] Metoprolol Tartrate (Lopressor) 12.5 mg PO BID [facility] Multivitamins (Theragran) 1 tab PO DAILY [facility] Ondansetron HCl (Zofran Inj) 4 mg IV.PUSH Q6H PRN PRN Reason: NAUSEA OR VOMITING Senna/Docusate Sodium (Carlotta-Colace) 1 tab PO BID [facility] Sennosides (Senokot) 17.2 mg PO Q12H PRN PRN Reason: Moderate Constipation Sodium Chloride (Ns Flush) 2 ml IV.FLUSH BID THOMAS Sodium Chloride (Ns Flush) 2 ml IV.FLUSH PRN PRN PRN Reason: FLUSH AFTER USING IV ACCESS Physical Exam Narrative: GENERAL: WDWN overweight male patient, INAD. Awake and alert. Appears comfortable lying in bed. SKIN: Warm and dry. No generalized rash. HEAD: Atraumatic. Normocephalic. EYES: Pupils equal and round. No scleral icterus. No injection or drainage. ENT: No nasal bleeding or discharge. Mucous membranes pink and moist. NECK: Trachea midline. CARDIOVASCULAR: Regular rate and rhythm. Midline sternal incision healing well , steristrips in place. RESPIRATORY: No accessory muscle use. Diminished. Breath sounds equal bilaterally. GASTROINTESTINAL: Abdomen soft, non-tender, nondistended. +BS. +open wound mid abdomen packed with iodoform gauze. No active drainage. Mild discoloration noted around the edges of the wound. MUSCULOSKELETAL: Extremities without clubbing or cyanosis. 1+ pitting edema BLE. No obvious deformities. NEUROLOGICAL: Awake and alert. No obvious cranial nerve deficits. Able to move all extremities spontaneously. Normal speech. PSYCHIATRIC: Appropriate mood and affect; insight and judgment normal. Caprini VTE Risk Assessment Caprini VTE Risk Assessment: Moderate/High Risk (score >= 2) Caprini Risk Assessment Model: Point Value = 1 Point Value = 2 Point Value = 3 Point Value = 5 Age 41-60 Minor surgery BMI > 25 kg/m2 Swollen legs Varicose veins or History of unexplained or recurrent spontaneous Oral contraceptives or hormone replacement Sepsis (< 1 month) Serious lung disease, including pneumonia (< 1 month) Abnormal pulmonary function Acute myocardial infarction Congestive heart failure (< 1 month) History of inflammatory bowel disease Medical patient at bed rest Age 61-74 Arthroscopic surgery Major open surgery (> 45 min) Laparoscopic surgery (> 45 min) Malignancy Confined to bed (> 72 hours) Immobilizing plaster cast Central venous access Age >= 75 History of VTE Family history of VTE Factor V Leiden Prothrombin [id number] Lupus anticoagulant Anticardiolipin antibodies Elevated serum homocysteine Heparin-induced thrombocytopenia Other congenital or acquired thrombophilia Stroke (< 1 month) Elective arthroplasty Hip, pelvis, or leg fracture Acute spinal cord injury (< 1 month) Prophylaxis Regimen: Total Risk Factor Score Risk Level Prophylaxis Regimen 0-1 Low Early ambulation 2 Moderate Order ONE of the following: *Sequential Compression Device (SCD) *Heparin 5000 units SQ BID 3-4 Higher Order ONE of the following medications: *Heparin 5000 units SQ TID *Enoxaparin/Lovenox 40 mg SQ daily (WT < 150 kg, CrCl > 30 mL/min) *Enoxaparin/Lovenox 30 mg SQ daily (WT < 150 kg, CrCl > 10-29 mL/min) *Enoxaparin/Lovenox 30 mg SQ BID (WT < 150 kg, CrCl > 30 mL/min) AND/OR *Sequential Compression Device (SCD) 5 or more Highest Order ONE of the following medications: *Heparin 5000 units SQ TID (Preferred with Epidurals) *Enoxaparin/Lovenox 40 mg SQ daily (WT < 150 kg, CrCl > 30 mL/min) *Enoxaparin/Lovenox 30 mg SQ daily (WT < 150 kg, CrCl > 10-29 mL/min) *Enoxaparin/Lovenox 30 mg SQ BID (WT < 150 kg, CrCl > 30 mL/min) AND *Sequential Compression Device (SCD) Assessment and Plan Plan 67-year-old man with diabetes, dyslipidemia, GERD, morbid obesity, history of gastric bypass surgery status post CABG x 3 for severe CAD, status post lap cholecystectomy for acute cholecystitis admitted to [facility] for comprehensive rehabilitation and developed GIB. Seen in consultation by gastroenterology who attempted colonoscopy today however procedure aborted secondary to poor prep. Patient unable to participate with therapies and has been discharged from [facility] and is admitted to [facility]. GIB patient with passage of multiple melanic stools and +BRBPR hemoccult positive +loose stools with hints of bright blood overnight -continue on IV Protonix BID -ASA and Eliquis on hold -GI following, appreciate assistance. Cleared for endoscopy by Cardiology. Endoscopy attempted today but aborted due to poor prep. Patient rescheduled for procedure tomorrow morning. NPO after MN. Repeat colonoscopy prep ordered. -monitor H/H closely Anemia, multifactorial, postoperative anemia of acute blood loss, GIB as above LEESA Folate 7.7, B12 300 -hemoglobin low but appears stable. Repeat hgb 7.7 this am. Obtain STAT H/H to evaluate for worsening anemia. -continue on multivitamin with iron, B12 and folic acid -continue to monitor H/H closely. Repeat CBC in am. Recent NSTEMI Multivessel CAD s/p CABG x3 by Dr. Carlin 04/14/18 -Continue on aspirin daily - currently on hold 2/2 GIB. Per Cardiology, need to resume ASA and Eliquis as soon as is safely possible. -Monitor surgical incision site for proper healing -Continuous cardiac monitoring New onset atrial fibrillation, rate controlled -Continue patient on metoprolol, amiodarone, Cardizem -Eliquis on hold, need to resume as soon as possible -Continue to monitor heart rate Acute on chronic EF preserved HF, decompensated EF 60-65%, trace to mild MR CXR 05/05 reveals moderate congestive failure with bilateral pleural effusions, larger on the left -currently on po Lasix daily. Given IVF by primary team for GIB. Repeat CXR. Obtain BNP. Give IV Lasix 20mg x 1 dose now. -monitor volume status s/p lap cholecystectomy by Dr. Hall 04/24 for acute gangrenous cholecystitis -Monitor surgical sites for proper wound healing Recent sepsis secondary to bacteremia infection with Klebsiella and E. coli, resolved repeat BCX negative -Followed by Dr. Sanchez of [facility] -Completed IV antibiotic treatment by [facility]. Last dose of Augmentin today -Monitor for any signs of recurrent infection Hypertension, with hypotensive BP measurements -Continue on Lopressor and Cardizem. Monitor BP trend. -Continue to monitor BP and adjust treatment accordingly Diabetes, type II, chronic -Continue on metformin 1000mg BID - will hold for now due to being NPO in am -Accu-Cheks and insulin sliding scale -Continue to monitor blood sugars and adjust insulin regimen as indicated Hypokalemia K 3.1 -on daily po repletion -give 40meq po x 1 dose -mag level 1.8, give 400mg po dose x 1 -repeat K and mag in am Chronic DVT right IJ site -compress and elevate arm -evaluated by Dr. Myers, conservative treatment recommended Dyslipidemia -Continue on atorvastatin 20 mg daily Morbid obesity hx of gastric bypass surgery -Weight loss measures, regular exercise program, dietary changes DVT prophylaxis -Patient is on Eliquis - currently on hold 2/2 GIB NILE downing bilaterally
[2018-05-07] MEDS: Insulin NovoLOG Aspart Correctional Sugar Inj SQ SCH ×2 (17:52→20:59)
[2018-05-07] MEDS: Pantoprazole Inj 40 MG Vial IV.PUSH SCH (18:12)
[2018-05-07 18:59] LABS: Hemoglobin 9.2 gm/dL (13.0-17.0)
[2018-05-07] MEDS: Metoprolol Tartrate 25 MG Tablet PO SCH (20:57)
[2018-05-07] MEDS: Senna/Docusate Sodium 8.6/50 MG Tablet PO SCH (20:58)
[2018-05-08] MEDS ORDERED: Acetaminophen 325 MG Tablet PO PRN (03:29)
[2018-05-08] MEDS: Pantoprazole Inj 40 MG Vial IV.PUSH SCH ×2 (05:44→18:31)
[2018-05-08 07:16] LABS: Baso # (Auto) 0.1 th/mm3 (0.0-0.2); Baso % (Auto) 0.8 % (0.0-2.0); Eos # (Auto) 0.2 th/mm3 (0.0-0.4); Eos % (Auto) 2.2 % (0.0-4.0); Hematocrit 22.4 % (39.0-51.0); Hemoglobin 7.6 gm/dL (13.0-17.0); Lymph # (Auto) 1.5 th/mm3 (1.0-4.8); Lymph % (Auto) 19.2 % (9.0-44.0); Mean Corpuscular HGB Conc 33.8 % (32.0-36.0); Mean Corpuscular Hemoglobin 28.5 pg (27.0-34.0); Mean Corpuscular Volume 84.5 fL (80.0-100.0); Mean Platelet Volume 7.5 fL (7.0-11.0); Mono # (Auto) 0.7 th/mm3 (0.0-0.9); Neut # (Auto) 5.4 th/mm3 (1.8-7.7); Neut % (Auto) 68.8 % (16.0-70.0); Platelet Count 365 th/mm3 (150-450); Red Blood Count 2.65 mil/mm3 (4.50-5.90); Red Cell Distribution Width 15.9 % (11.6-17.2); White Blood Count 7.9 th/mm3 (4.0-11.0)
[2018-05-08 07:43] LABS: Alanine Aminotransferase 18 U/L (12-78); Albumin 1.6 g/dL (3.4-5.0); Alkaline Phosphatase 91 U/L (45-117); Anion Gap 8 meq/L (5-15); Aspartate Aminotransferase 22 U/L (15-37); Blood Urea Nitrogen 7 mg/dL (7-18); Calcium 7.2 mg/dL (8.5-10.1); Chloride 106 meq/L (98-107); Glomerular Filtration Rate Greater Than 89 mL/min (>89); Glucose,Random 92 mg/dL (74-106); Magnesium 1.6 mg/dL (1.5-2.5); Potassium 3.1 meq/L (3.5-5.1); Sodium 142 meq/L (136-145); Total Protein 4.8 g/dL (6.4-8.2)
[2018-05-08] MEDS: Insulin NovoLOG Aspart Correctional Sugar Inj SQ SCH ×4 (08:35→20:35)
--- NOTE | 2018-05-08 09:50 | P.CONGI ---
History of Present Illness Consult date: 05/08/18 Chief complaint: GI Bleed History of Present Illness: This is a 67yo male with a PMHX significant for diabetes, A-fib on Eliquis and ASA, GERD, hyperlipidemia, history of gastric bypass, that was initially admitted to [facility] on March 19, 2018 with nausea, vomiting, abdominal pain and had a complicated hospital course, patient underwent three-vessel CABG performed by Dr. Carlin on April 14. and underwent a laparoscopic cholecystectomy on April 24. Our GI services were following pt at [facility] for anemia. He was scheduled to have EGD/ colonoscopy yesterday, but was canceled due to poor prep. Patient is scheduled to undergo EGD/colonoscopy today. Pt denies recent bleeding, nausea or vomiting. Endorses mild abd pain. <Georgina Massey - Last Filed: 05/08/18 09:39> Review of Systems All other systems reviewed negative except as stated in HPI <Georgina Massey - Last Filed: 05/08/18 09:39> PMFSH - History History Provided By: Patient - Medical History Medical History: Medical History (Last Reviewed 05/08/18 @ 09:19 by Diana Alberts PT) Atrial fibrillation Multi-vessel coronary artery stenosis Diabetes GERD (gastroesophageal reflux disease) Hypercholesteremia MDRO (multiple drug resistant organisms) resistance Onset Date: ~03/26/18 - Surgical History Surgical History: Surgical History (Last Reviewed 05/08/18 @ 09:19 by Diana Alberts PT) Hx laparoscopic cholecystectomy S/P CABG x 3 H/O gastric bypass - Family History Family History: Family History (Last Reviewed 05/08/18 @ 09:19 by Diana Alberts PT) Other Family history non-contributory - Tobacco History Second Hand Smoke Exposure: No Smoking Status: Former smoker Tobacco Type: Cigarettes - Alcohol History How Often Do You Have a Drink Containing Alcohol: Never - Substance Use History Substance History: No History of Abuse - Immunization History Hx Influenza Vaccine This Season: No <Georgina Massey - Last Filed: 05/08/18 09:39> - Medical History Medical History: Medical History (Last Reviewed 05/08/18 @ 09:19 by Diana Alberts PT) Atrial fibrillation Multi-vessel coronary artery stenosis Diabetes GERD (gastroesophageal reflux disease) Hypercholesteremia MDRO (multiple drug resistant organisms) resistance Onset Date: ~03/26/18 - Surgical History Surgical History: Surgical History (Last Reviewed 05/08/18 @ 09:19 by Diana Alberts, PT) Hx laparoscopic cholecystectomy S/P CABG x 3 H/O gastric bypass - Family History Family History: Family History (Last Reviewed 05/08/18 @ 09:19 by Diana Alberts, PT) Other Family history non-contributory <Miguel Fontenot - Last Filed: 05/08/18 13:22> Medications and Allergies Active Medications: Active Medications Acetaminophen (Tylenol) 650 mg PO Q4H PRN PRN Reason: PAIN 1-10 AND/OR FEVER >101F Al Hydroxide/Mg Hydroxide (Milk Of Magnesia Liq) 30 ml PO Q12H PRN PRN Reason: Mild Constipation Albuterol (Duoneb Neb (Prn)) 1 ampul NEB Q2HR NEB PRN PRN Reason: SHORTNESS OF BREATH/WHEEZING Amiodarone HCl (Cordarone) 200 mg PO DAILY [facility] Atorvastatin Calcium (Lipitor) 20 mg PO DAILY [facility] Bisacodyl (Dulcolax Supp) 10 mg RECTAL DAILY PRN PRN Reason: SEVERE CONSITIPATION Cyanocobalamin (Vitamin B12) 1,000 mcg PO DAILY [facility] Dextrose (D50w Vial) 50 ml IV.PUSH UNSCH PRN PRN Reason: PER HYPOGLYCEMIA PROTOCOL Diltiazem HCl (Cardizem Cd 24hr) 120 mg PO DAILY [facility] Folic Acid (Folic Acid) 1 mg PO DAILY [facility] Furosemide (Lasix) 20 mg PO DAILY [facility] Glucagon (Glucagon Inj) 1 mg OTHER PRN PRN PRN Reason: for Hypoglycemia Protocol Insulin Aspart (Novolog Insulin Correctional Sugar Inj) 0 unit SQ ACHS [facility]; Protocol Last Admin: 05/08/18 08:35 Dose: Not Given Lactulose (Lactulose Liq) 30 ml PO DAILY PRN PRN Reason: SEVERE CONSITIPATION Met[facility]) [facility] Last Admin: 05/07/18 18:12 Dose: 1,000 mg Metoprolol Tartrate (Lopressor) 12.5 mg PO BID [facility] Last Admin: 05/07/18 20:57 Dose: 12.5 mg Multivitamins (Theragran) 1 tab PO DAILY [facility] Ondansetron HCl (Zofran Inj) 4 mg IV.PUSH Q6H PRN PRN Reason: NAUSEA OR VOMITING Last Admin: 05/07/18 18:23 Dose: 4 mg Pantoprazole Sodium (Protonix Inj) 40 mg IV.PUSH Q12H [facility] Last Admin: 05/08/18 05:44 Dose: 40 mg Potassium Chloride (Klor-Con 8) 8 meq PO DAILY [facility] Senna/Docusate Sodium (Carlotta-Colace) 1 tab PO BID [facility] Last Admin: 05/07/18 20:58 Dose: 1 tab Sennosides (Senokot) 17.2 mg PO Q12H PRN PRN Reason: Moderate Constipation Sodium Chloride (Ns Flush) 2 ml IV.FLUSH BID [facility] Last Admin: 05/07/18 20:59 Dose: 2 ml Sodium Chloride (Ns Flush) 2 ml IV.FLUSH PRN PRN PRN Reason: FLUSH AFTER USING IV ACCESS <Georgina Massey - Last Filed: 05/08/18 09:39> Active Medications: Active Medications Acetaminophen (Tylenol) 650 mg PO Q4H PRN PRN Reason: PAIN 1-10 AND/OR FEVER >101F Al Hydroxide/Mg Hydroxide (Milk Of Magnesia Liq) 30 ml PO Q12H PRN PRN Reason: Mild Constipation Albuterol (Duoneb Neb (Prn)) 1 ampul NEB Q2HR NEB PRN PRN Reason: SHORTNESS OF BREATH/WHEEZING Amiodarone HCl (Cordarone) 200 mg PO DAILY [facility] Atorvastatin Calcium (Lipitor) 20 mg PO DAILY [facility] Bisacodyl (Dulcolax Supp) 10 mg RECTAL DAILY PRN PRN Reason: SEVERE CONSITIPATION Cyanocobalamin (Vitamin B12) 1,000 mcg PO DAILY [facility] Dextrose (D50w Vial) 50 ml IV.PUSH UNSCH PRN PRN Reason: PER HYPOGLYCEMIA PROTOCOL Diltiazem HCl (Cardizem Cd 24hr) 120 mg PO DAILY [facility] Folic Acid (Folic Acid) 1 mg PO DAILY [facility] Furosemide (Lasix) 20 mg PO DAILY [facility] Glucagon (Glucagon Inj) 1 mg OTHER PRN PRN PRN Reason: for Hypoglycemia Protocol Insulin Aspart (Novolog Insulin Correctional Sugar Inj) 0 unit SQ ACHS [facility]; Protocol Last Admin: 05/08/18 08:35 Dose: Not Given Lactulose (Lactulose Liq) 30 ml PO DAILY PRN PRN Reason: SEVERE CONSITIPATION Metformin HCl (Glucophage) 1,000 mg PO BIDPC [facility] Last Admin: 05/07/18 18:12 Dose: 1,000 mg Metoprolol Tartrate (Lopressor) 12.5 mg PO BID [facility] Last Admin: 05/08/18 10:09 Dose: 12.5 mg Multivitamins (Theragran) 1 tab PO DAILY [facility] Ondansetron HCl (Zofran Inj) 4 mg IV.PUSH Q6H PRN PRN Reason: NAUSEA OR VOMITING Last Admin: 05/07/18 18:23 Dose: 4 mg Pantoprazole Sodium (Protonix Inj) 40 mg IV.PUSH Q12H [facility] Last Admin: 05/08/18 05:44 Dose: 40 mg Polyethylene Glycol/Electrolytes (Colyte Liq) 4,000 ml PO ONCE ONE Stop: 05/09/18 16:01 Potassium Chloride (Klor-Con 8) 8 meq PO DAILY [facility] Senna/Docusate Sodium (Carlotta-Colace) 1 tab PO BID [facility] Last Admin: 05/07/18 20:58 Dose: 1 tab Sennosides (Senokot) 17.2 mg PO Q12H PRN PRN Reason: Moderate Constipation Sodium Chloride (Ns Flush) 2 ml IV.FLUSH BID [facility] Last Admin: 05/07/18 20:59 Dose: 2 ml Sodium Chloride (Ns Flush) 2 ml IV.FLUSH PRN PRN PRN Reason: FLUSH AFTER USING IV ACCESS <Miguel Fontenot - Last Filed: 05/08/18 13:22> Allergies Allergy/AdvReac Type Severity Reaction Status Date / Time No Known Allergies Allergy Verified 05/02/18 18:41 Exam Vital signs: Vital Signs 05/07/18 18:00 05/07/18 19:42 05/07/18 20:00 Temperature 97.8 F 97.8 F Pulse Rate 71 86 Respiratory Rate 17 17 Blood Pressure 101/63 111/63 Pulse Oximetry 97 97 96 05/07/18 23:28 05/08/18 04:06 Temperature 97.4 F L 98.3 F Pulse Rate 62 65 Respiratory Rate 17 17 Blood Pressure 110/61 109/57 L Pulse Oximetry 96 96 Intake & Output 05/07/18 05/08/18 05/08/18 18:59 06:59 18:59 Intake Total 440 / 440 Balance 440 / 440 Weight 97.522 kg 111.9 kg Intake: Oral 440 / 440 Other: # Voids 1 3 Date of Last Bowel Movement 05/07/18 # Bowel Movements 8 Weight On Admission 97.522 kg - Constitutional no acute distress - Routine HEENT Exam Head: Present: normocephalic - Routine Respiratory Exam Present: CTA bilaterally - Routine Cardiovascular Exam Present: RRR - Routine Abdominal Exam Present: soft, normoactive bowel sounds, tenderness. Absent: distended, rebound - Routine Skin Exam Present: intact, dry - Routine Neurological Exam Present: alert, oriented X3 <Georgina Massey - Last Filed: 05/08/18 09:39> Vital signs: Vital Signs 05/07/18 18:00 05/07/18 19:42 05/07/18 20:00 Temperature 97.8 F 97.8 F Pulse Rate 71 86 Respiratory Rate 17 17 Blood Pressure 101/63 111/63 Pulse Oximetry 97 97 96 05/07/18 23:28 05/08/18 04:06 05/08/18 08:00 Temperature 97.4 F L 98.3 F 97.5 F L Pulse Rate 62 65 66 Respiratory Rate 17 17 18 Blood Pressure 110/61 109/57 L 103/57 L Pulse Oximetry 96 96 Intake & Output 05/07/18 05/08/18 05/08/18 18:59 06:59 18:59 Intake Total 440 / 440 300 / 300 Balance 440 / 440 300 / 300 Weight 97.522 kg 111.9 kg Intake: Oral 440 / 440 Anesthesia Amount 300 / 300 Other: # Voids 1 3 Date of Last Bowel Movement 05/07/18 # Bowel Movements 8 Weight On Admission 97.522 kg <Miguel Fontenot - Last Filed: 05/08/18 13:22> Results - Labs CBC & Chem 7: 05/08/18 06:49 05/08/18 06:49 Labs: Laboratory Results - last 24 hr 05/07/18 05/07/18 05/07/18 17:47 18:34 20:49 WBC RBC Hgb 9.2 L Hct 28.0 L MCV MCH MCHC RDW Plt Count MPV Neut % (Auto) Lymph % (Auto) Emmons % (Auto) Eos % (Auto) Baso % (Auto) Neut # (Auto) Lymph # (Auto) Emmons # (Auto) Eos # (Auto) Baso # (Auto) WBC Differential Differential Comment Sodium Potassium Chloride Carbon Dioxide Anion Gap BUN Creatinine Estimated GFR POC Glucose 127 H 120 H Random Glucose Calcium Calcium Adj for Albumin Magnesium Total Bilirubin AST ALT Alkaline Phosphatase Total Protein Albumin 05/08/18 05/08/18 05/08/18 06:49 06:49 08:33 WBC 7.9 RBC 2.65 L Hgb 7.6 L Hct 22.4 L MCV 84.5 MCH 28.5 MCHC 33.8 RDW 15.9 Plt Count 365 MPV 7.5 Neut % (Auto) 68.8 Lymph % (Auto) 19.2 Emmons % (Auto) 9.0 H Eos % (Auto) 2.2 Baso % (Auto) 0.8 Neut # (Auto) 5.4 Lymph # (Auto) 1.5 Emmons # (Auto) 0.7 Eos # (Auto) 0.2 Baso # (Auto) 0.1 WBC Differential . Differential Comment Auto diff final Sodium 142 Potassium 3.1 L Chloride 106 Carbon Dioxide 28.0 Anion Gap 8 BUN 7 Creatinine 0.54 L Estimated GFR Greater than 89 POC Glucose 97 Random Glucose 92 Calcium 7.2 L* Calcium Adj for Albumin 9.1 Magnesium 1.6 Total Bilirubin 0.3 AST 22 ALT 18 Alkaline Phosphatase 91 Total Protein 4.8 L D Albumin 1.6 L <Georgina Massey - Last Filed: 05/08/18 09:39> - Labs CBC & Chem 7: 05/08/18 06:49 05/08/18 06:49 Labs: Laboratory Results - last 24 hr 05/07/18 05/07/18 05/07/18 17:47 18:34 20:49 WBC RBC Hgb 9.2 L Hct 28.0 L MCV MCH MCHC RDW Plt Count MPV Neut % (Auto) Lymph % (Auto) Emmons % (Auto) Eos % (Auto) Baso % (Auto) Neut # (Auto) Lymph # (Auto) Emmons # (Auto) Eos # (Auto) Baso # (Auto) WBC Differential Differential Comment Sodium Potassium Chloride Carbon Dioxide Anion Gap BUN Creatinine Estimated GFR POC Glucose 127 H 120 H Random Glucose Calcium Calcium Adj for Albumin Magnesium Total Bilirubin AST ALT Alkaline Phosphatase Total Protein Albumin 05/08/18 05/08/18 05/08/18 06:49 06:49 08:33 WBC 7.9 RBC 2.65 L Hgb 7.6 L Hct 22.4 L MCV 84.5 MCH 28.5 MCHC 33.8 RDW 15.9 Plt Count 365 MPV 7.5 Neut % (Auto) 68.8 Lymph % (Auto) 19.2 Emmons % (Auto) 9.0 H Eos % (Auto) 2.2 Baso % (Auto) 0.8 Neut # (Auto) 5.4 Lymph # (Auto) 1.5 Emmons # (Auto) 0.7 Eos # (Auto) 0.2 Baso # (Auto) 0.1 WBC Differential . Differential Comment Auto diff final Sodium 142 Potassium 3.1 L Chloride 106 Carbon Dioxide 28.0 Anion Gap 8 BUN 7 Creatinine 0.54 L Estimated GFR Greater than 89 POC Glucose 97 Random Glucose 92 Calcium 7.2 L* Calcium Adj for Albumin 9.1 Magnesium 1.6 Total Bilirubin 0.3 AST 22 ALT 18 Alkaline Phosphatase 91 Total Protein 4.8 L D Albumin 1.6 L <Miguel Fontenot - Last Filed: 05/08/18 13:22> Assessment and Plan - Plan Rectal bleeding/history of chronic iron deficiency anemia Pt denies recent Gi bleed. hgb today is 7.6, declining He was scheduled to have EGD/colonoscopy yesterday, but was canceled due to poor prep. Patient is scheduled to undergo EGD/colonoscopy today. - A-fib on Eliquis and ASA ( on hold) - patient underwent three-vessel CABG performed by Dr. Carlin on April 14. and underwent a laparoscopic cholecystectomy on April 24. Plan: - NPO - EGD/colonoscopy today - Monitor hh - Transfuse as needed - Cont. PPI - Pt seen and examined by Dr. Fontenot and myself and this note is written on his behalf <Georgina Massey - Last Filed: 05/08/18 09:39> - Attending Attestation Patient seen and examined. Patient underwent upper endoscopy today. Patient cannot have the colonoscopy due to poor bowel preparation. He will need to stay on clear liquids he will be scheduled for colonoscopy May 10. I agree with the above assessment and recommendations from the SNOW REMOVAL/PLOWING. <Miguel Fontenot - Last Filed: 05/08/18 13:22>
[2018-05-08] MEDS: Metoprolol Tartrate 25 MG Tablet PO SCH ×2 (10:09→20:34)
--- NOTE | 2018-05-08 12:05 | P.PCN ---
Date of procedure: 05/08/18 Pre-op diagnosis: iron deficiency anemia, hematochezia Post-op diagnosis: same Procedure: INDICATION: Iron deficiency anemia and hematochezia PROCEDURE PERFORMED: upper endoscopy, diagnostic After informing the patient about procedure and possible complications consent was signed. history and physical were updated. Patient was taken to the procedure room and placed in position. Time out was completed. ANESTHESIA: Adequate sedation was performed by anesthesia provider. PROCEDURE: Upper Endoscopy, the scope was placed in the mouth advanced under video guide to the second portion of the duodenum. The scope was then slowly withdrawn through the stomach and retro-flexion was performed to examine the cardia, the scope was then withdrawn through the esophagus with good views obtained throughout. The scope was then withdrawn out of the mouth without any immediate complications. FINDIINGS: Esophagus: Normal esophageal mucosa was seen. Z line was identified at 38 cm. Stomach: There was a gastric remnant identified. The patient is post gastric bypass. There was normal-appearing mucosa in the cardia. A staple was seen to be protruding into the gastric lumen and what appeared to be the superior anterior aspect of the stomach. No stigmata of recent bleeding. No ulcers or erosions. Duodenum: The duodenum was not examined examined. The jejunum was examined the instead. Both the afferent and efferent loops were seen. There is normal small bowel mucosa identified. IMPRESSION: Patient with normal post gastric bypass anatomy. No source of bleeding identified. Patient is prone to iron deficiency anemia due to poor absorption due to gastric bypass. Patient had been planned for colonoscopy however there was brown stool and therefore colonoscopy was not done. Patient will need to be prepped and rescheduled. COMPLICATIONS: None RECOMMENDATIONS: 1- Supportive care 2- ok to transfer to recovery area then discharge per protocol 3-patient will will require full bowel preparation for colonoscopy and colonoscopy to be scheduled for May 10 4- clear liquid diet 5- EGD as needed. 6-diagnostic colonoscopy will be scheduled due to poor bowel preparation today Anesthesia: MAC Surgeon: Miguel Fontenot Pathology: none sent Condition: stable Disposition: floor
[2018-05-08] MEDS ORDERED: Magnesium Sulfate Inj 2 GM in Sodium Chlor 0.9% Inj 96 ML IV.SIG ONE (14:22)
--- NOTE | 2018-05-08 14:50 | P.PNIM ---
Subjective Interval history: Patient is lying down in bed. He is currently not in any acute distress. He is frustrated because he has to continue to drink GoLYTELY. Physical Exam Vital signs: Vital Signs 05/07/18 18:00 05/07/18 19:42 05/07/18 20:00 Temperature 97.8 F 97.8 F Pulse Rate 71 86 Respiratory Rate 17 17 Blood Pressure 101/63 111/63 Pulse Oximetry 97 97 96 05/07/18 23:28 05/08/18 04:06 05/08/18 08:00 Temperature 97.4 F L 98.3 F 97.5 F L Pulse Rate 62 65 66 Respiratory Rate 17 17 18 Blood Pressure 110/61 109/57 L 103/57 L Pulse Oximetry 96 96 Intake & Output 05/07/18 05/08/18 05/08/18 18:59 06:59 18:59 Intake Total 440 / 440 300 / 300 Balance 440 / 440 300 / 300 Weight 97.522 kg 111.9 kg Intake: Oral 440 / 440 Anesthesia Amount 300 / 300 Other: # Voids 1 3 Date of Last Bowel Movement 05/07/18 # Bowel Movements 8 Weight On Admission 97.522 kg Narrative: General patient in no acute distress, he is frustrated because he has to continue to drink GoLYTELY HEENT extraocular movements are intact, clear oropharyngeal mucosa, no JVD Cardiovascular S1-S2 audible Respiratory clear to auscultation bilaterally Abdomen soft, obese, nontender, nondistended, normal bowel sounds Extremities no edema 2+ distal pulses in bilateral upper and lower extremities Neuro no focal neurological deficits Results - Labs CBC & Chem 7: 05/08/18 06:49 05/08/18 06:49 Laboratory Results - last 24 hr 05/07/18 05/07/18 05/07/18 17:47 18:34 20:49 WBC RBC Hgb 9.2 L Hct 28.0 L MCV MCH MCHC RDW Plt Count MPV Neut % (Auto) Lymph % (Auto) Iron % (Auto) Eos % (Auto) Baso % (Auto) Neut # (Auto) Lymph # (Auto) Iron # (Auto) Eos # (Auto) Baso # (Auto) WBC Differential Differential Comment Sodium Potassium Chloride Carbon Dioxide Anion Gap BUN Creatinine Estimated GFR POC Glucose 127 H 120 H Random Glucose Calcium Calcium Adj for Albumin Magnesium Total Bilirubin AST ALT Alkaline Phosphatase Total Protein Albumin 05/08/18 05/08/18 05/08/18 06:49 06:49 08:33 WBC 7.9 RBC 2.65 L Hgb 7.6 L Hct 22.4 L MCV 84.5 MCH 28.5 MCHC 33.8 RDW 15.9 Plt Count 365 MPV 7.5 Neut % (Auto) 68.8 Lymph % (Auto) 19.2 Iron % (Auto) 9.0 H Eos % (Auto) 2.2 Baso % (Auto) 0.8 Neut # (Auto) 5.4 Lymph # (Auto) 1.5 Iron # (Auto) 0.7 Eos # (Auto) 0.2 Baso # (Auto) 0.1 WBC Differential . Differential Comment Auto diff final Sodium 142 Potassium 3.1 L Chloride 106 Carbon Dioxide 28.0 Anion Gap 8 BUN 7 Creatinine 0.54 L Estimated GFR Greater than 89 POC Glucose 97 Random Glucose 92 Calcium 7.2 L* Calcium Adj for Albumin 9.1 Magnesium 1.6 Total Bilirubin 0.3 AST 22 ALT 18 Alkaline Phosphatase 91 Total Protein 4.8 L D Albumin 1.6 L Assessment and Plan - Plan This patient is a 67-year-old male with a diagnosis of diabetes, dyslipidemic, gastro esophageal reflux disease, morbid obesity, history of gastric bypass surgery, coronary artery disease status post CABG x3, status post lap cholecystectomy, atrial fibrillation on Eliquis and aspirin. As per the patient he was not taking Eliquis and is not sure if he was on aspirin. The patient was admitted to [facility] after a GI bleed. 1. Acute symptomatic anemia possibly secondary to lower GI bleed. 2. Atrial fibrillation Patient denies any hematemesis or bloody stools overnight. The patient had hemoglobin level of 9.2 yesterday, 7.6 as of today. Patient was evaluated by GI and plan is for colonoscopy possibly tomorrow. He was scheduled for colonoscopy yesterday however due to poor prep the colonoscopy was canceled. As per documentation patient was previously on Eliquis and aspirin, currently on hold. Patient says that he was not previously on Eliquis. Continue diltiazem, metoprolol. PT/INR ordered for tomorrow a.m. Heart rate currently under control. Continue Protonix IV twice daily. Follow-up with GI for the recommendations. Given the patient's significant drop in hemoglobin from yesterday to today we will follow-up a hemogram tonight. 3. Diabetes mellitus type 2 Continue low-dose insulin sliding scale. Patient's blood sugars currently under control. 4. Dyslipidemia Continue statin No pharmacotherapy for DVT Proflex of the patient currently has a GI bleed.
[2018-05-08] MEDS: dilTIAZem CD 120 MG Capsule PO SCH (18:28)
[2018-05-08] MEDS: Amiodarone 200 MG Tablet PO SCH (18:28)
[2018-05-08] MEDS: Furosemide 20 MG Tablet PO SCH (18:29)
[2018-05-08] MEDS: Senna/Docusate Sodium 8.6/50 MG Tablet PO SCH ×2 (18:29→20:33)
[2018-05-08] MEDS: Folic Acid 1 MG Tablet PO SCH (18:29)
[2018-05-08] MEDS: Mag Sulf 1 gm/100 ml Premix 100 ML IV.SIG SCH ×2 (18:32→20:01)
[2018-05-08 20:33] LABS: Hematocrit 24.8 % (39.0-51.0); Hemoglobin 8.3 gm/dL (13.0-17.0)
[2018-05-09] MEDS: Pantoprazole Inj 40 MG Vial IV.PUSH SCH (05:36)
[2018-05-09 06:33] LABS: Hematocrit 24.9 % (39.0-51.0); Hemoglobin 8.3 gm/dL (13.0-17.0)
[2018-05-09 06:57] LABS: Anion Gap 4 meq/L (5-15); Blood Urea Nitrogen 4 mg/dL (7-18); Calcium 7.5 mg/dL (8.5-10.1); Carbon Dioxide 32.1 meq/L (21.0-32.0); Chloride 107 meq/L (98-107); Glomerular Filtration Rate Greater Than 89 mL/min (>89); Glucose,Random 100 mg/dL (74-106); Magnesium 1.9 mg/dL (1.5-2.5); Potassium 3.8 meq/L (3.5-5.1); Sodium 143 meq/L (136-145)
[2018-05-09 07:10] LABS: INR 1.1 Ratio; Prothrombin Time 11.5 sec (9.8-11.6)
[2018-05-09] MEDS: Insulin NovoLOG Aspart Correctional Sugar Inj SQ SCH ×4 (07:45→21:49)
[2018-05-09] MEDS: Senna/Docusate Sodium 8.6/50 MG Tablet PO SCH ×2 (08:28→21:48)
[2018-05-09] MEDS: dilTIAZem CD 120 MG Capsule PO SCH (08:30)
[2018-05-09] MEDS: Folic Acid 1 MG Tablet PO SCH (08:31)
[2018-05-09] MEDS: Amiodarone 200 MG Tablet PO SCH (08:31)
[2018-05-09] MEDS: Furosemide 20 MG Tablet PO SCH (08:31)
[2018-05-09] MEDS: Metoprolol Tartrate 25 MG Tablet PO SCH ×2 (08:35→21:48)
--- NOTE | 2018-05-09 09:45 | P.PNGI ---
Subjective Interval history: Pt is resting in bed, no bleeding reported <Georgina Massey - Last Filed: 05/09/18 10:44> Physical Exam Vital signs: Vital Signs 05/08/18 16:00 05/08/18 20:00 05/09/18 00:00 Temperature 97.5 F L 98.0 F 98.0 F Pulse Rate 61 63 61 Respiratory Rate 18 16 17 Blood Pressure 121/56 L 118/63 114/58 L Pulse Oximetry 99 97 96 05/09/18 04:00 05/09/18 08:00 Temperature 98.0 F 98.2 F Pulse Rate 71 71 Respiratory Rate 16 16 Blood Pressure 103/63 117/57 L Pulse Oximetry 98 97 Intake & Output 05/08/18 05/09/18 05/09/18 18:59 06:59 18:59 Intake Total 300 / 300 200 / 200 Balance 300 / 300 200 / 200 Weight 111.9 kg Intake: IV 200 / 200 Magnesium Sulfate 1 gm/D5W 100 200 / 200 ml Premix 100 ML @ 100 mls/hr IV.SIG Q2H THOMAS Rx#:[id number] Anesthesia Amount 300 / 300 Other: # Voids 5 Date of Last Bowel Movement 05/09/18 <NewtrinityMiguel - Last Filed: 05/09/18 09:45> Vital signs: Vital Signs 05/08/18 16:00 05/08/18 20:00 05/09/18 00:00 Temperature 97.5 F L 98.0 F 98.0 F Pulse Rate 61 63 61 Respiratory Rate 18 16 17 Blood Pressure 121/56 L 118/63 114/58 L Pulse Oximetry 99 97 96 05/09/18 04:00 05/09/18 08:00 Temperature 98.0 F 98.2 F Pulse Rate 71 71 Respiratory Rate 16 16 Blood Pressure 103/63 117/57 L Pulse Oximetry 98 97 Intake & Output 05/08/18 05/09/18 05/09/18 18:59 06:59 18:59 Intake Total 300 / 300 200 / 200 Balance 300 / 300 200 / 200 Weight 111.9 kg Intake: IV 200 / 200 Magnesium Sulfate 1 gm/D5W 100 200 / 200 ml Premix 100 ML @ 100 mls/hr IV.SIG Q2H THOMAS Rx#:[id number] Anesthesia Amount 300 / 300 Other: # Voids 5 Date of Last Bowel Movement 05/09/18 Narrative: General patient in no acute distress, HEENT extraocular movements are intact, clear oropharyngeal mucosa, no JVD Cardiovascular S1-S2 audible Respiratory clear to auscultation bilaterally Abdomen soft, obese, nontender, nondistended, normal bowel sounds Extremities no edema 2+ distal pulses in bilateral upper and lower extremities Neuro no focal neurological deficits <Georgina Massey - Last Filed: 05/09/18 10:44> Results - Labs CBC & Chem 7: 05/09/18 06:10 05/09/18 06:10 Laboratory Results - last 24 hr 05/08/18 05/08/18 05/08/18 17:14 20:14 20:31 Hgb 8.3 L Hct 24.8 L PT INR Sodium Potassium Chloride Carbon Dioxide Anion Gap BUN Creatinine Estimated GFR POC Glucose 119 H 136 H Random Glucose Calcium Magnesium 05/09/18 05/09/18 05/09/18 06:10 06:10 06:10 Hgb 8.3 L Hct 24.9 L PT 11.5 INR 1.1 Sodium 143 Potassium 3.8 Chloride 107 Carbon Dioxide 32.1 H Anion Gap 4 L BUN 4 L Creatinine 0.59 L Estimated GFR Greater than 89 POC Glucose Random Glucose 100 Calcium 7.5 L Magnesium 1.9 <Miguel Fontenot - Last Filed: 05/09/18 09:45> - Labs CBC & Chem 7: 05/09/18 06:10 05/09/18 06:10 Laboratory Results - last 24 hr 05/08/18 05/08/18 05/08/18 17:14 20:14 20:31 Hgb 8.3 L Hct 24.8 L PT INR Sodium Potassium Chloride Carbon Dioxide Anion Gap BUN Creatinine Estimated GFR POC Glucose 119 H 136 H Random Glucose Calcium Magnesium 05/09/18 05/09/18 05/09/18 06:10 06:10 06:10 Hgb 8.3 L Hct 24.9 L PT 11.5 INR 1.1 Sodium 143 Potassium 3.8 Chloride 107 Carbon Dioxide 32.1 H Anion Gap 4 L BUN 4 L Creatinine 0.59 L Estimated GFR Greater than 89 POC Glucose Random Glucose 100 Calcium 7.5 L Magnesium 1.9 <Georgina Massey - Last Filed: 05/09/18 10:44> Assessment and Plan - Attending Attestation I have seen and examined the patient and reviewed the patients care with the FILBERT GROWER. I agree with the above assessment and recommendations as documented above. Colonoscopy will be scheduled for tomorrow. Repeat bowel preparation today. <Miguel Fontenot - Last Filed: 05/09/18 09:45> - Plan Rectal bleeding/history of chronic iron deficiency anemia Pt denies recent Gi bleed. hgb today 8.3 S/P EGD/colonoscopy on 05/08/18 Patient with normal post gastric bypass anatomy. No source of bleeding identified. Patient is prone to iron deficiency anemia due to poor absorption due to gastric bypass. Patient had been planned for colonoscopy however there was brown stool and therefore colonoscopy was not done. - A-fib on Eliquis and ASA ( on hold) - patient underwent three-vessel CABG performed by Dr. Carlin on April 14. and underwent a laparoscopic cholecystectomy on April 24. Plan: - clears - colonoscopy tomorrow - NPO mn - Monitor hh - Transfuse as needed to keep hgb > 9 - Cont. PPI - Pt seen and examined by Dr. Fontenot and myself and this note is written on his behalf <Georgina Massey - Last Filed: 05/09/18 10:44>
--- NOTE | 2018-05-09 13:33 | P.PNIM ---
Subjective Interval history: Patient denies any current abdominal pain. The patient says he wants to finish up with the colonoscopy and go home. Physical Exam Vital signs: Vital Signs 05/08/18 16:00 05/08/18 20:00 05/09/18 00:00 Temperature 97.5 F L 98.0 F 98.0 F Pulse Rate 61 63 61 Respiratory Rate 18 16 17 Blood Pressure 121/56 L 118/63 114/58 L Pulse Oximetry 99 97 96 05/09/18 04:00 05/09/18 08:00 05/09/18 12:00 Temperature 98.0 F 98.2 F 98.4 F Pulse Rate 71 71 59 L Respiratory Rate 16 16 16 Blood Pressure 103/63 117/57 L 122/60 Pulse Oximetry 98 97 95 Intake & Output 05/08/18 05/09/18 05/09/18 18:59 06:59 18:59 Intake Total 300 / 300 200 / 200 Balance 300 / 300 200 / 200 Weight 111.9 kg Intake: IV 200 / 200 Magnesium Sulfate 1 gm/D5W 100 200 / 200 ml Premix 100 ML @ 100 mls/hr IV.SIG Q2H THOMAS Rx#:[id number] Anesthesia Amount 300 / 300 Other: # Voids 5 Date of Last Bowel Movement 05/09/18 05/09/18 Narrative: General patient in no acute distress, no abdominal pain HEENT extraocular movements are intact, clear oropharyngeal mucosa, no JVD Cardiovascular S1-S2 audible Respiratory clear to auscultation bilaterally Abdomen soft, obese, nontender, nondistended, normal bowel sounds Extremities no edema 2+ distal pulses in bilateral upper and lower extremities Neuro no focal neurological deficits Results - Labs CBC & Chem 7: 05/09/18 06:10 05/09/18 06:10 Laboratory Results - last 24 hr 05/08/18 05/08/18 05/08/18 17:14 20:14 20:31 Hgb 8.3 L Hct 24.8 L PT INR Sodium Potassium Chloride Carbon Dioxide Anion Gap BUN Creatinine Estimated GFR POC Glucose 119 H 136 H Random Glucose Calcium Magnesium 05/09/18 05/09/18 05/09/18 06:10 06:10 06:10 Hgb 8.3 L Hct 24.9 L PT 11.5 INR 1.1 Sodium 143 Potassium 3.8 Chloride 107 Carbon Dioxide 32.1 H Anion Gap 4 L BUN 4 L Creatinine 0.59 L Estimated GFR Greater than 89 POC Glucose Random Glucose 100 Calcium 7.5 L Magnesium 1.9 05/09/18 11:20 Hgb Hct PT INR Sodium Potassium Chloride Carbon Dioxide Anion Gap BUN Creatinine Estimated GFR POC Glucose 105 Random Glucose Calcium Magnesium Assessment and Plan - Plan This patient is a 67-year-old male with a diagnosis of diabetes, dyslipidemic, gastro esophageal reflux disease, morbid obesity, history of gastric bypass surgery, coronary artery disease status post CABG x3, status post lap cholecystectomy, atrial fibrillation on Eliquis and aspirin. As per the patient he was not taking Eliquis and is not sure if he was on aspirin. The patient was admitted to [place] [facility] after a GI bleed. 1. Acute symptomatic anemia possibly secondary to lower GI bleed. 2. Atrial fibrillation Patient denies any hematemesis or bloody stools overnight. Hemoglobin level 8.3 today, GI recommends keeping the hemoglobin above 9 given the patient's severe coronary artery disease and recent CABG. Patient will be transfused 1 unit PRBC. Colonoscopy planned for tomorrow. N.p.o. past midnight. As per documentation patient was previously on Eliquis and aspirin, currently on hold. Patient says that he was not previously on Eliquis. Continue diltiazem, metoprolol. PT/INR ordered for tomorrow a.m. Heart rate currently under control. Continue Protonix IV twice daily. Follow-up with GI for the recommendations. 3. Diabetes mellitus type 2 Continue low-dose insulin sliding scale. Patient's blood sugars currently under control. 4. Dyslipidemia Continue statin No pharmacotherapy for DVT prophylaxis of the patient currently has a GI bleed.
[2018-05-09] MEDS ORDERED: Sodium Chlor 0.9% Inj 250 ML IV.SIG SCH (14:00)
[2018-05-09] MEDS ORDERED: PEG 3350/E-Lyte Soln 4000 ML Bottle PO ONE (16:00)
[2018-05-10 06:22] LABS: Hematocrit 26.3 % (39.0-51.0); Hemoglobin 8.9 gm/dL (13.0-17.0)
[2018-05-10] MEDS: Metoprolol Tartrate 25 MG Tablet PO SCH ×2 (09:51→21:49)
[2018-05-10] MEDS ORDERED: Sodium Chlor 0.9% Inj 500 ML IV.CONT ONE (10:45)
[2018-05-10] MEDS ORDERED: Metoprolol Tartrate 25 MG Tablet PO ONE (10:45)
[2018-05-10] MEDS ORDERED: Chlorhexidine Gluconate 2% 1 Pack (2 Cloths) TOPICAL ONE (10:45)
--- NOTE | 2018-05-10 11:47 | GIPROC ---
[facility] [address] [facility]. [facility], [address] COLONOSCOPY PROCEDURE REPORT EXAM DATE: 05/10/2018 PATIENT NAME: Sandip Bridges MR #: [id number] BIRTHDATE: 1950 ENDOSCOPIST: Zhou Wright MD ORDER #: [id number] [facility]ITAL[facility]: Yadira Marques and Marnie Smyth STATUS: inpatient INDICATIONS: The patient is a 67 yr old male here for a colonoscopy due to anemia, non-specific PROCEDURE PERFORMED: Colonoscopy with biopsy MEDICATIONS: Per Anesthesia and None. PREP QUALITY: fair PREP TYPE:GoLytely ESTIMATED BLOOD LOSS: None CONSENT: The patient understands the risks and benefits of the procedure and understands that these risks include, but are not limited to: sedation, allergic reaction, infection, perforation and/or bleeding. Alternative means of evaluation and treatment include, among others: physical exam, x-rays, and/or surgical intervention. The patient elects to proceed with this endoscopic procedure. medical equipment was checked for proper function. Hand hygiene and appropriate measures for infection prevention was taken. After the risks, benefits and alternatives of the procedure were thoroughly explained, Informed consent was verified, confirmed and timeout was successfully executed by the treatment team. A digital exam revealed no abnormalities of the rectum The Pentax [id number] endoscope was introduced through the anus and advanced to the sigmoid colon. The instrument was then slowly withdrawn as the colon was fully examined. COLON FINDINGS: Severe diverticulosis was noted in the sigmoid colon. No bleeding was noted from the diverticulosis. A circumferential smooth mass with friable surfaces was found in the sigmoid colon. Multiple biopsies were performed using cold forceps. Retroflexed views revealed no abnormalities The scope was then completely withdrawn from the patient and the procedure terminated. PROCEDURE WITHDRAWAL TIME:8minutes ADVERSE EVENTS: There were no complications. IMPRESSIONS: 1. Severe diverticulosis was noted in the sigmoid colon 2. Circumferential mass was found in the proximal sigmoid /Descending colon; multiple biopsies were performed using cold forceps, unable to pass beyond the lesion. RECOMMENDATIONS: Await biopsy results. Biopsy results will not be ready for 7-10 days. If you don't hear from us in two weeks, call our office for results. RECALL: Pending biopsy results Zhou Wright MD eSigned: Zhou Wright MD 05/10/2018 11:47 AM cc:
[2018-05-10] MEDS: Furosemide 20 MG Tablet PO SCH (13:14)
[2018-05-10] MEDS: dilTIAZem CD 120 MG Capsule PO SCH (13:14)
[2018-05-10] MEDS: Amiodarone 200 MG Tablet PO SCH (13:14)
[2018-05-10] MEDS: Senna/Docusate Sodium 8.6/50 MG Tablet PO SCH ×2 (13:14→21:51)
[2018-05-10] MEDS: Folic Acid 1 MG Tablet PO SCH (13:14)
[2018-05-10] MEDS: Insulin NovoLOG Aspart Correctional Sugar Inj SQ SCH ×4 (13:15→21:50)
[2018-05-10] MEDS: Pantoprazole Inj 40 MG Vial IV.PUSH SCH ×2 (13:15→17:42)
--- NOTE | 2018-05-10 16:17 | P.PNIM ---
Subjective Interval history: Patient laying down in bed. No current complaints. No abd pain. Physical Exam Vital signs: Vital Signs 05/09/18 20:00 05/09/18 23:34 05/10/18 00:00 Temperature 97.4 F L 97.3 F L 98 F Pulse Rate 65 56 L 60 Respiratory Rate 18 19 18 Blood Pressure 125/57 L 114/60 111/57 L Pulse Oximetry 99 99 98 05/10/18 04:00 05/10/18 08:00 05/10/18 08:42 Temperature 97.9 F 98.2 F Pulse Rate 61 66 Respiratory Rate 17 18 Blood Pressure 95/54 L 102/56 L Pulse Oximetry 94 L 94 L 95 05/10/18 11:55 05/10/18 13:16 Temperature 97.7 F 98.2 F Pulse Rate 64 65 Respiratory Rate 16 18 Blood Pressure 104/53 L 117/56 L Pulse Oximetry 96 98 Intake & Output 05/09/18 05/10/18 05/10/18 18:59 06:59 18:59 Intake Total 0 / 0 100 / 100 Balance 0 / 0 100 / 100 Weight 104.7 kg Intake: Anesthesia Amount 100 / 100 Intake (Blood Product) Amt 0 / 0 Rbc As-3 Leukoreduced Unit 0 / 0 [id number] Other: # Incontinent Voids 8 Date of Last Bowel Movement 05/09/18 # Bowel Movements 7 Narrative: General patient in no acute distress, no abdominal pain HEENT extraocular movements are intact, clear oropharyngeal mucosa, no JVD Cardiovascular S1-S2 audible Respiratory clear to auscultation bilaterally Abdomen soft, obese, nontender, nondistended, normal bowel sounds Extremities no edema 2+ distal pulses in bilateral upper and lower extremities Neuro no focal neurological deficits Results - Labs CBC & Chem 7: 05/10/18 05:19 05/09/18 06:10 Laboratory Results - last 24 hr 05/09/18 05/09/18 05/10/18 14:23 20:22 05:19 Hgb 8.9 L Hct 26.3 L POC Glucose 88 Blood Type A Positive Antibody Screen Negative MTS Gel Crossmatch See Detail 05/10/18 12:14 Hgb Hct POC Glucose 87 Blood Type Antibody Screen MTS Gel Crossmatch Assessment and Plan - Plan This patient is a 67-year-old male with a diagnosis of diabetes, dyslipidemic, gastro esophageal reflux disease, morbid obesity, history of gastric bypass surgery, coronary artery disease status post CABG x3, status post lap cholecystectomy, atrial fibrillation on Eliquis and aspirin. As per the patient he was not taking Eliquis and is not sure if he was on aspirin. The patient was admitted to [facility] after a GI bleed. 1. Acute symptomatic anemia possibly secondary to lower GI bleed. 2. Atrial fibrillation 05/10/18 Patient underwent colonoscopy today. A mass was found in the sigmoid colon. Biopsies taken and are pending. Diet started. We will continue to monitor the patient. Continue PT. [facility]. Patient denies any hematemesis or bloody stools overnight. Hemoglobin level 8.3 today, GI recommends keeping the hemoglobin above 9 given the patient's severe coronary artery disease and recent CABG. Patient will be transfused 1 unit PRBC. Colonoscopy planned for tomorrow. N.p.o. past midnight. As per documentation patient was previously on Eliquis and aspirin, currently on hold. Patient says that he was not previously on Eliquis. Continue diltiazem, metoprolol. PT/INR ordered for tomorrow a.m. Heart rate currently under control. Continue Protonix IV twice daily. Follow-up with GI for the recommendations. 3. Diabetes mellitus type 2 Continue low-dose insulin sliding scale. Patient's blood sugars currently under control. 4. Dyslipidemia Continue statin No pharmacotherapy for DVT prophylaxis of the patient currently has a GI bleed.
--- NOTE | 2018-05-10 20:11 | P.PNCA ---
Subjective Interval history: No events overnight Cscope with mass noted Biopsies pending Medications and Allergies Active Medications: Active Medications Acetaminophen (Tylenol) 650 mg PO Q4H PRN PRN Reason: PAIN 1-10 AND/OR FEVER >101F Last Admin: 05/08/18 20:33 Dose: 650 mg Al Hydroxide/Mg Hydroxide (Milk Of Magnesia Liq) 30 ml PO Q12H PRN PRN Reason: Mild Constipation Albuterol (Duoneb Neb (Prn)) 1 ampul NEB Q2HR NEB PRN PRN Reason: SHORTNESS OF BREATH/WHEEZING Amiodarone HCl (Cordarone) 200 mg PO DAILY [facility] Last Admin: 05/10/18 13:14 Dose: 200 mg Atorvastatin Calcium (Lipitor) 20 mg PO DAILY [facility] Last Admin: 05/10/18 13:14 Dose: 20 mg Bisacodyl (Dulcolax Supp) 10 mg RECTAL DAILY PRN PRN Reason: SEVERE CONSITIPATION Cyanocobalamin (Vitamin B12) 1,000 mcg PO DAILY [facility] Last Admin: 05/10/18 13:14 Dose: 1,000 mcg Dextrose (D50w Vial) 50 ml IV.PUSH UNSCH PRN PRN Reason: PER HYPOGLYCEMIA PROTOCOL Diltiazem HCl (Cardizem Cd 24hr) 120 mg PO DAILY [facility] Last Admin: 05/10/18 13:14 Dose: 120 mg Folic Acid (Folic Acid) 1 mg PO DAILY [facility] Last Admin: 05/10/18 13:14 Dose: 1 mg Furosemide (Lasix) 20 mg PO DAILY [facility] Last Admin: 05/10/18 13:14 Dose: 20 mg Glucagon (Glucagon Inj) 1 mg OTHER PRN PRN PRN Reason: for Hypoglycemia Protocol Lactated Ringer's (Lr 1000 Ml Inj) 1,000 mls @ 30 mls/hr IV.CONT .Q24H ONE Stop: 05/11/18 10:44 Sodium Chloride (Ns Inj) 500 mls @ 30 mls/hr IV.CONT .[id number] ONE Stop: 05/11/18 03:24 Insulin Aspart (Novolog Insulin Correctional Sugar Inj) 0 unit SQ ACHS [facility]; Protocol Last Admin: 05/10/18 17:42 Dose: Not Given Lactulose (Lactulose Liq) 30 ml PO DAILY PRN PRN Reason: SEVERE CONSITIPATION Metformin HCl (Glucophage) 1,000 mg PO BIDPC [facility] Last Admin: 05/07/18 18:12 Dose: 1,000 mg Metoprolol Tartrate (Lopressor) 12.5 mg PO BID [facility] Last Admin: 05/10/18 09:51 Dose: 12.5 mg Multivitamins (Theragran) 1 tab PO DAILY [facility] Last Admin: 05/10/18 13:14 Dose: 1 tab Ondansetron HCl (Zofran Inj) 4 mg IV.PUSH Q6H PRN PRN Reason: NAUSEA OR VOMITING Last Admin: 05/07/18 18:23 Dose: 4 mg Pantoprazole Sodium (Protonix Inj) 40 mg IV.PUSH Q12H [facility] Last Admin: 05/10/18 17:42 Dose: 40 mg Potassium Chloride (Klor-Con 8) 8 meq PO DAILY [facility] Last Admin: 05/10/18 13:14 Dose: 8 meq Senna/Docusate Sodium (Carlotta-Colace) 1 tab PO BID [facility] Last Admin: 05/10/18 13:14 Dose: 1 tab Sennosides (Senokot) 17.2 mg PO Q12H PRN PRN Reason: Moderate Constipation Sodium Chloride (Ns Flush) 2 ml IV.FLUSH BID [facility] Last Admin: 05/10/18 13:20 Dose: 2 ml Sodium Chloride (Ns Flush) 2 ml IV.FLUSH PRN PRN PRN Reason: FLUSH AFTER USING IV ACCESS Allergies Allergy/AdvReac Type Severity Reaction Status Date / Time No Known Allergies Allergy Verified 05/02/18 18:41 Physical Exam Vital signs: Vital Signs 05/09/18 23:34 05/10/18 00:00 05/10/18 04:00 Temperature 97.3 F L 98 F 97.9 F Pulse Rate 56 L 60 61 Respiratory Rate 19 18 17 Blood Pressure 114/60 111/57 L 95/54 L Pulse Oximetry 99 98 94 L 05/10/18 08:00 05/10/18 08:42 05/10/18 11:55 Temperature 98.2 F 97.7 F Pulse Rate 66 64 Respiratory Rate 18 16 Blood Pressure 102/56 L 104/53 L Pulse Oximetry 94 L 95 96 05/10/18 13:16 05/10/18 16:00 Temperature 98.2 F 97.9 F Pulse Rate 65 64 Respiratory Rate 18 18 Blood Pressure 117/56 L 115/58 L Pulse Oximetry 98 98 Intake & Output 05/10/18 05/10/18 05/11/18 06:59 18:59 06:59 Intake Total 0 / 0 1060 / 1060 Output Total 600 / 600 Balance 0 / 0 460 / 460 Weight 104.7 kg Intake: Oral 960 / 960 Anesthesia Amount 100 / 100 Intake (Blood Product) Amt 0 / 0 Rbc As-3 Leukoreduced Unit 0 / 0 [id number] Output: Urine 600 / 600 Other: # Incontinent Voids 2 # Bowel Movements 7 2 Narrative: General patient in no acute distress, no abdominal pain HEENT extraocular movements are intact, clear oropharyngeal mucosa, no JVD Cardiovascular S1-S2 audible Respiratory clear to auscultation bilaterally Abdomen soft, obese, nontender, nondistended, normal bowel sounds Extremities no edema 2+ distal pulses in bilateral upper and lower extremities Neuro no focal neurological deficits Results 05/10/18 05:19 05/09/18 06:10 Coagulation 05/09/18 Range/Units 06:10 PT 11.5 (9.8-11.6) sec CBC 05/08/18 05/09/18 05/10/18 Range/Units 20:14 06:10 05:19 Hgb 8.3 L 8.3 L 8.9 L (13.0-17.0) gm/dL Hct 24.8 L 24.9 L 26.3 L (39.0-51.0) % Comprehensive Metabolic Panel 05/09/18 Range/Units 06:10 Sodium 143 (136-145) meq/L Potassium 3.8 (3.5-5.1) meq/L Chloride 107 (98-107) meq/L Carbon Dioxide 32.1 H (21.0-32.0) meq/L BUN 4 L (7-18) mg/dL Creatinine 0.59 L (0.60-1.30) mg/dL Calcium 7.5 L (8.5-10.1) mg/dL Intake and Output 05/10/18 05/10/18 05/10/18 06:59 14:59 22:59 Intake Total 0 / 0 100 / 100 960 / 960 Output Total 600 / 600 Balance 0 / 0 100 / 100 360 / 360 Intake: Oral 960 / 960 Anesthesia Amount 100 / 100 Intake (Blood Product) Amt 0 / 0 Rbc As-3 Leukoreduced Unit 0 / 0 [id number] Output: Urine 600 / 600 Other: # Incontinent Voids 2 # Bowel Movements 7 2 Weight 104.7 kg Assessment and Plan - Assessment (1) Colonic mass Code(s): K63.9 - Disease of intestine, unspecified Status: Acute (2) Afib Code(s): I48.91 - Unspecified atrial fibrillation Status: Chronic (3) Coronary artery disease involving [place] coronary artery Code(s): I25.10 - Atherosclerotic heart disease of [place] coronary artery without angina pectoris Status: Acute (4) S/P CABG (coronary artery bypass graft) Code(s): Z95.1 - Presence of aortocoronary bypass graft Status: Acute (5) Status post laparoscopic cholecystectomy Code(s): Z90.49 - Acquired absence of other specified parts of digestive tract Status: Resolved (6) Rectal bleeding Code(s): K62.5 - Hemorrhage of anus and rectum Status: Acute - Plan 1. Gastrointestinal bleed with Hemoccult-positive and multiple stools, dark maroon color. Colon mass noted Biopsies pending 2. Anemia. 3. Coronary artery disease, status post coronary artery bypass grafting x3. Needs to be on ASA with recent CABG Will restart ASA 81mg daily 4. Acute cholecystitis, status post laparoscopic cholecystectomy. 5. Previous bacteremia with Klebsiella and Escherichia coli. Resolved 6. New onset atrial fibrillation, currently in sinus rhythm. Heart rates controlled, con't metoprolol, cardizem and amiodarone Once stable, would attempt to wean off amiodarone Eliquis on hold due to GIB If felt he could be restarted with little risk of bleeding, would prefer to be on it Concern with colon mass, will hold for now 7. Hypertension. 8. Diabetes. 9. Chronic deep venous thrombosis, right internal jugular. 10. Morbid obesity with a history of gastric bypass surgery. (2) Afib Qualifiers: Atrial fibrillation type: chronic Qualified Code(s): I48.2 - Chronic atrial fibrillation
[2018-05-11 06:16] LABS: Hematocrit 27.9 % (39.0-51.0); Hemoglobin 9.1 gm/dL (13.0-17.0)
--- NOTE | 2018-05-11 10:02 | P.DS ---
Date of admission: 05/07/18 16:54 Primary care physician: UNKNOWN Brief History from admission: This is a 67yo male with a PMHX significant for diabetes, GERD, hyperlipidemia morbid obesity with BMI 40, history of gastric bypass, that was initially admitted to [facility] on March 19, 2018 with nausea, vomiting, abdominal pain left side flank pain left mid back pain. Patient had a complicated hospital course was found to have elevated troponin and underwent subsequent cardiac catheterization by Dr. Pérez which revealed significant coronary artery disease. He is also found to have acute cholecystitis. Patient developed bacteremia with blood cultures growing Klebsiella and E. coli. He was followed by infectious disease. Once patient was stable, he underwent three-vessel CABG performed by Dr. Carlin on April 14. Patient developed new onset atrial fibrillation and was treated with amiodarone drip before being transitioned to oral amiodarone. Patient was started on Eliquis. Patient was followed by general surgery and underwent a laparoscopic cholecystectomy on April 24. On May 02, patient was admitted to [facility] for comprehensive rehabilitation. Patient was followed by [facility]. Patient developed a GI bleed. His aspirin and Eliquis were held. He was seen in consultation by GI who recommended endoscopy. Patient was followed by cardiology Dr. Pérez who cleared patient for endoscopy procedure with intermediate risk. Patient underwent colonoscopy procedure today however procedure was aborted secondary to poor prep. Patient has continued to have issues with anemia and hypotension. He has been unable to participate with physical therapy. As such, patient was discharged from [facility] and admitted back to [facility]. Patient was admitted for a GI bleed and plan was for the patient to undergo a colonoscopy. DS: Summary Hospital Course: This patient is a 67-year-old male with a diagnosis of diabetes, dyslipidemic, gastro esophageal reflux disease, morbid obesity, history of gastric bypass surgery, coronary artery disease status post CABG x3, status post lap cholecystectomy. Patient has a recent diagnosis of atrial fibrillation and recommendations were for the patient to start Eliquis. The patient was at [facility] when he was found to have a GI bleed. 1. Acute symptomatic anemia possibly secondary to lower GI bleed. 2. Atrial fibrillation The patient had a low hemoglobin and his stools were bloody. GI was consulted to evaluate the patient. Given the patient's history of coronary artery disease recommendations were for the patient to keep the hemoglobin above 9. He did receive PRBC transfusions while on the medicine floor. GI evaluated the patient and recommended a colonoscopy. The patient underwent colonoscopy which showed a mass in the sigmoid colon. Biopsies were taken and are currently pending. Results of the biopsy will need to be followed up. Patient was started on a clear liquid diet and has now been advanced. Oncology has been consulted to evaluate the patient as well given his likely diagnosis of cancer. As per the patient he had a brother who at a young age less than 40 years old with colon cancer. The patient's hemoglobin is now stable, no active bleeding. Continue Protonix twice daily p.o. Aspirin was restarted by the cardiology team as the patient will benefit from a given his history of coronary artery disease and CABG. When cleared by GI the patient should also be started on anticoagulation given his diagnosis of atrial fibrillation and chads score. Continue diltiazem, metoprolol, amiodarone. Patient's heart rate is currently under control. 3. Diabetes mellitus type 2 Continue low-dose insulin sliding scale. Patient's blood sugars currently under control. 4. Coronary artery disease status post CABG/dyslipidemia Continue aspirin. Continue statin. Continue metoprolol. - Time Spent with Patient Total time spent providing and/or coordinating discharge services: Greater than 30 minutes - Quality: VTE Deep Vein Thrombosis/Pulmonary Embolism Present on Admission: No Exam Vital signs: Vital Signs 05/10/18 11:55 05/10/18 13:16 05/10/18 16:00 Temperature 97.7 F 98.2 F 97.9 F Pulse Rate 64 65 64 Respiratory Rate 16 18 18 Blood Pressure 104/53 L 117/56 L 115/58 L Pulse Oximetry 96 98 98 05/10/18 20:00 05/11/18 00:00 05/11/18 04:00 Temperature 97.8 F 98.1 F 97.3 F L Pulse Rate 63 65 64 Respiratory Rate 18 16 16 Blood Pressure 113/57 L 113/60 116/65 Pulse Oximetry 95 95 92 L 05/11/18 08:00 05/11/18 08:40 Temperature 97.8 F Pulse Rate 69 Respiratory Rate 18 Blood Pressure 104/54 L Pulse Oximetry 92 L 92 L Intake & Output 05/10/18 05/11/18 05/11/18 18:59 06:59 18:59 Intake Total 1060 / 1060 Output Total 600 / 600 Balance 460 / 460 Weight 105.7 kg Intake: Oral 960 / 960 Anesthesia Amount 100 / 100 Output: Urine 600 / 600 Other: # Voids 2 # Incontinent Voids 2 Date of Last Bowel Movement 05/11/18 # Bowel Movements 2 2 Narrative: General patient in no acute distress, no abdominal pain HEENT extraocular movements are intact, clear oropharyngeal mucosa, no JVD Cardiovascular S1-S2 audible Respiratory clear to auscultation bilaterally Abdomen soft, obese, nontender, nondistended, normal bowel sounds Extremities no edema 2+ distal pulses in bilateral upper and lower extremities Neuro no focal neurological deficits Results Procedures completed during hospitalization: Colonoscopy Pending studies at discharge: Pending at discharge 05/10/18 12:58 Surgical [PTH] Routine Labs on day of discharge: Labs from last 24 hours 05/11/18 05/11/18 05/10/18 09:53 04:50 21:39 Hgb 9.1 L Hct 27.9 L POC Glucose 208 H 160 H MTS Gel Crossmatch 05/10/18 05/10/18 05/10/18 17:45 16:29 12:14 Hgb Hct POC Glucose 160 H 70 87 MTS Gel Crossmatch 05/09/18 14:23 Hgb Hct POC Glucose MTS Gel Crossmatch See Detail Discharge Plan - Discharge Disposition Patient Disposition: [facility] Rehab Inpatient - Discharge Condition Condition: Stable - Discharge Order Discharge Orders: Discharge Order (Routine); Ordered 05/11/18 Ordered By: Hedy Martinez - Physicians Team Primary Care Provider: UNKNOWN, Attending Provider: Hedy Martinez Other Providers: Bernardino Pérez DO ; Miguel Fontenot MD ; Eric Rivera MD - Rxs /Orders / Referrals /Forms Prescriptions: New acetaminophen 325 mg Tablet 650 mg PO Q4H PRN (Reason: Pain 1-10 And/Or Fever >101f) RF: 0 amiodarone 200 mg Tablet 200 mg PO DAILY RF: 0 aspirin 81 mg Tablet,Delayed Release (Dr/Ec) 81 mg PO DAILY RF: 0 atorvastatin 20 mg Tablet 20 mg PO DAILY RF: 0 cyanocobalamin (vitamin B-12) [Vitamin B-12] 1,000 mcg Tablet 1,000 mcg PO DAILY RF: 0 diltiazem HCl 120 mg Capsule,Extended Release 24hr 120 mg PO DAILY RF: 0 furosemide 20 mg Tablet 20 mg PO DAILY RF: 0 insulin aspart U-100 [Novolog U-100 Insulin aspart] 100 unit/mL Solution 0 unit subcut ACHS RF: 0 lactulose 20 gram/30 mL Solution 30 ml PO DAILY PRN (Reason: Severe Consitipation) RF: 0 metformin [Glucophage] 500 mg Tablet 1,000 mg PO BIDPC RF: 0 multivitamin with folic acid [Thera] 400 mcg Tablet 1 tab PO DAILY RF: 0 pantoprazole [Protonix] 40 mg Tablet,Delayed Release (Dr/Ec) 40 mg PO BID Qty: 60 RF: 0 potassium chloride [Klor-Con 8] 8 mEq Tablet Extended Release 8 meq PO DAILY RF: 0 Continue acetaminophen 325 mg Tablet 650 mg PO Q4H PRN (Reason: Temp > 100.4) RF: 0 acidophilus-sporogenes [Acidophilus Ex Str (L. sporog)] 35 million- 25 million cell Tablet 1 tab PO TID RF: 0 amiodarone 200 mg Tablet 200 mg PO DAILY RF: 0 atorvastatin 20 mg Tablet 20 mg PO DAILY RF: 0 clotrimazole 1 % Cream 1 applicatio Topical TID RF: 0 cyanocobalamin (vitamin B-12) [Vitamin B-12] 1,000 mcg Tablet 1,000 mcg PO DAILY RF: 0 dextrose 50 % in water (D50W) Parenteral Solution 50 ml IV.PUSH UNSCH PRN (Reason: Per Hypoglycemia Protocol) RF: 0 diltiazem HCl 120 mg Capsule,Extended Release 24hr 120 mg PO DAILY RF: 0 diphenoxylate-atropine 2.5-0.025 mg Tablet 1 tab PO Q6H PRN (Reason: Diarrhea) RF: 0 ferrous sulfate [FeroSul] 325 mg (65 mg iron) Tablet 325 mg PO BID RF: 0 folic acid 1 mg Tablet 1 mg PO DAILY RF: 0 glucagon (human recombinant) [GlucaGen Diagnostic Kit] 1 mg/mL Recon Soln 1 mg OTHER PRN PRN (Reason: for Hypoglycemia Protocol) RF: 0 hydrocodone-acetaminophen 5-325 mg Tablet 1 tab PO Q4H PRN (Reason: Pain Scale 4-10) RF: 0 insulin aspart U-100 [Novolog U-100 Insulin aspart] 100 unit/mL Solution 0 unit subcut ACHS RF: 0 ipratropium-albuterol 0.5 mg-3 mg(2.5 mg base)/3 mL Solution For Nebulization 1 amp NEB Q2HR NEB PRN (Reason: SOB/WHEEZING) RF: 0 metformin [Glucophage] 500 mg Tablet 1,000 mg PO BIDPC RF: 0 metoprolol tartrate 25 mg Tablet 12.5 mg PO BID RF: 0 xhnxenmi-zwjh-OM-calcium-mins [Thera M Plus (ferrous fumarat)] 9 mg iron-400 mcg Tablet 1 tab PO DAILY RF: 0 nystatin 100,000 unit/gram Cream 1 applicatio Topical BID RF: 0 ondansetron 4 mg Tablet,Disintegrating 4 mg PO Q4H PRN (Reason: nausea/vomiting) RF: 0 potassium chloride 8 mEq Capsule, Extended Release 8 meq PO DAILY RF: 0 Discontinued amoxicillin-pot clavulanate 875-125 mg Tablet 1 tab PO Q12HR RF: 0 pantoprazole [Protonix] 40 mg Recon Soln 40 mg IV.PUSH Q12H RF: 0 Referrals: UNKNOWN, [Primary Care Provider] - See Instructions - Discharge Instructions Patient Printed Instructions: Colonoscopy (DC) Additional Instructions: Follow up Bxs from colonoscopy. Once cleared to start Anticoagulation for A fib from GI patient should be started on Eliquis. Follow up with Recs from Oncology.
[2018-05-11] MEDS: Folic Acid 1 MG Tablet PO SCH (10:25)
[2018-05-11] MEDS: dilTIAZem CD 120 MG Capsule PO SCH (10:26)
[2018-05-11] MEDS: Amiodarone 200 MG Tablet PO SCH (10:26)
[2018-05-11] MEDS: Senna/Docusate Sodium 8.6/50 MG Tablet PO SCH (10:28)
[2018-05-11] MEDS: Furosemide 20 MG Tablet PO SCH (10:28)
[2018-05-11] MEDS: Metoprolol Tartrate 25 MG Tablet PO SCH (10:29)
[2018-05-11] MEDS: Insulin NovoLOG Aspart Correctional Sugar Inj SQ SCH ×3 (10:29→17:16)
[2018-05-11] MEDS: Pantoprazole Inj 40 MG Vial IV.PUSH SCH ×3 (10:32→17:06)
--- NOTE | 2018-05-11 12:19 | P.PNGI ---
Subjective Interval history: Patient laying semirecumbent Reports generalized abdominal discomfort Denies any nausea or vomiting Post colonoscopy Physical Exam Vital signs: Vital Signs 05/10/18 13:16 05/10/18 16:00 05/10/18 20:00 Temperature 98.2 F 97.9 F 97.8 F Pulse Rate 65 64 63 Respiratory Rate 18 18 18 Blood Pressure 117/56 L 115/58 L 113/57 L Pulse Oximetry 98 98 95 05/11/18 00:00 05/11/18 04:00 05/11/18 08:00 Temperature 98.1 F 97.3 F L 97.8 F Pulse Rate 65 64 69 Respiratory Rate 16 16 18 Blood Pressure 113/60 116/65 104/54 L Pulse Oximetry 95 92 L 92 L 05/11/18 08:40 Temperature Pulse Rate Respiratory Rate Blood Pressure Pulse Oximetry 92 L Intake & Output 05/10/18 05/11/18 05/11/18 18:59 06:59 18:59 Intake Total 1060 / 1060 Output Total 600 / 600 Balance 460 / 460 Weight 105.7 kg Intake: Oral 960 / 960 Anesthesia Amount 100 / 100 Output: Urine 600 / 600 Other: # Voids 2 # Incontinent Voids 2 Date of Last Bowel Movement 05/11/18 # Bowel Movements 2 2 - Constitutional no acute distress, chronically ill appearing - Routine HEENT Exam Head: Present: normocephalic - Routine Respiratory Exam Present: CTA bilaterally - Routine Abdominal Exam Present: soft, normoactive bowel sounds. Absent: distended, guarding, firm - Routine Skin Exam Present: dry, warm - Routine Neurological Exam Present: alert Results - Labs CBC & Chem 7: 05/11/18 04:50 05/09/18 06:10 Laboratory Results - last 24 hr 05/09/18 05/10/18 05/10/18 14:23 12:14 16:29 Hgb Hct POC Glucose 87 70 MTS Gel Crossmatch See Detail 05/10/18 05/10/18 05/11/18 17:45 21:39 04:50 Hgb 9.1 L Hct 27.9 L POC Glucose 160 H 160 H MTS Gel Crossmatch 05/11/18 05/11/18 09:53 12:08 Hgb Hct POC Glucose 208 H 137 H MTS Gel Crossmatch - Procedures Colonoscopy Assessment and Plan - Plan Rectal bleeding/history of chronic iron deficiency anemia Pt denies recent Gi bleed. hgb today 8.3 S/P EGD/colonoscopy on 05/08/18 Patient with normal post gastric bypass anatomy. No source of bleeding identified. Patient is prone to iron deficiency anemia due to poor absorption due to gastric bypass. Patient had been planned for colonoscopy however there was brown stool and therefore colonoscopy was not done. - A-fib on Eliquis and ASA ( on hold) - patient underwent three-vessel CABG performed by Dr. Carlin on April 14. and underwent a laparoscopic cholecystectomy on April 24. 05/11/2018 Rectal bleeding/history of chronic iron deficiency anemia 05/10/2018 colonoscopy revealed the following findings- Severe diverticulosis was noted in the sigmoid colon Circumferential mass was found in the proximal sigmoid /Descending colon; multiple biopsies were performed using cold forceps, unable to pass beyond the lesion. Hemoglobin 9.1 hematocrit 27.9, no reported bleeding Plan Diet as tolerated Monitor for bleeding Continue PPI Await biopsies Patient agrees to follow-up in office post discharge for biopsy result GI will sign off at this time, please notify if any further assistance needed Pt seen and examined by Dr. Grey and myself and this note is written on his behalf - Attending Attestation Dr. Grey
[2018-05-11 16:37] VITALS: BP 116/60; PULSE 73; RESP 19; TEMP 98; O2SAT 93
--- NOTE | 2018-05-11 20:16 | P.PNCA ---
Subjective Interval history: No events overnight Waiting to go back to [facility] Medications and Allergies Allergies Allergy/AdvReac Type Severity Reaction Status Date / Time No Known Allergies Allergy Verified 05/02/18 18:41 Home Medications Medication Instructions Recorded Confirmed Type magnesium hydroxide [Milk of 30 ml PO Q12HR PRN 05/11/18 05/11/18 History Magnesia] Physical Exam Vital signs: Vital Signs 05/11/18 00:00 05/11/18 04:00 05/11/18 08:00 Temperature 98.1 F 97.3 F L 97.8 F Pulse Rate 65 64 83 Respiratory Rate 16 16 18 Blood Pressure 113/60 116/65 104/54 L Pulse Oximetry 95 92 L 92 L 05/11/18 08:40 05/11/18 12:00 05/11/18 16:00 Temperature 97.9 F 98.0 F Pulse Rate 69 73 Respiratory Rate 17 19 Blood Pressure 106/56 L 116/60 Pulse Oximetry 92 L 92 L 93 L Intake & Output 05/11/18 05/11/18 05/12/18 06:59 18:59 06:59 Intake Total 400 / 400 Output Total 800 / 800 Balance -400 / -400 Weight 105.7 kg Intake: Oral 400 / 400 Output: Urine 800 / 800 Other: # Voids 2 Date of Last Bowel Movement 05/11/18 05/11/18 # Bowel Movements 2 1 Narrative: General patient in no acute distress, no abdominal pain HEENT extraocular movements are intact, clear oropharyngeal mucosa, no JVD Cardiovascular S1-S2 audible Respiratory clear to auscultation bilaterally Abdomen soft, obese, nontender, nondistended, normal bowel sounds Extremities no edema 2+ distal pulses in bilateral upper and lower extremities Neuro no focal neurological deficits Results 05/11/18 04:50 05/09/18 06:10 CBC 05/10/18 05/11/18 Range/Units 05:19 04:50 Hgb 8.9 L 9.1 L (13.0-17.0) gm/dL Hct 26.3 L 27.9 L (39.0-51.0) % Intake and Output 05/11/18 05/11/18 05/11/18 06:59 14:59 22:59 Intake Total 400 / 400 Output Total 800 / 800 Balance -400 / -400 Intake: Oral 400 / 400 Output: Urine 800 / 800 Other: # Voids 2 Date of Last Bowel Movement 05/11/18 05/11/18 # Bowel Movements 2 1 Weight 105.7 kg Assessment and Plan - Assessment (1) Colonic mass Code(s): K63.9 - Disease of intestine, unspecified Status: Acute (2) Afib Code(s): I48.91 - Unspecified atrial fibrillation Status: Chronic (3) Coronary artery disease involving [place] coronary artery Code(s): I25.10 - Atherosclerotic heart disease of [place] coronary artery without angina pectoris Status: Acute (4) S/P CABG (coronary artery bypass graft) Code(s): Z95.1 - Presence of aortocoronary bypass graft Status: Acute (5) Status post laparoscopic cholecystectomy Code(s): Z90.49 - Acquired absence of other specified parts of digestive tract Status: Resolved (6) Rectal bleeding Code(s): K62.5 - Hemorrhage of anus and rectum Status: Acute - Plan 1. Gastrointestinal bleed with Hemoccult-positive and multiple stools, dark maroon color. Colon mass noted Biopsies pending 2. Anemia. 3. Coronary artery disease, status post coronary artery bypass grafting x3. Needs to be on ASA with recent CABG Will restart ASA 81mg daily 4. Acute cholecystitis, status post laparoscopic cholecystectomy. 5. Previous bacteremia with Klebsiella and Escherichia coli. Resolved 6. New onset atrial fibrillation, currently in sinus rhythm. Heart rates controlled, con't metoprolol, cardizem and amiodarone Once stable, would attempt to wean off amiodarone Eliquis on hold due to GIB If felt he could be restarted with little risk of bleeding, would prefer to be on it 7. Hypertension. 8. Diabetes. 9. Chronic deep venous thrombosis, right internal jugular. 10. Morbid obesity with a history of gastric bypass surgery. (2) Afib Qualifiers: Atrial fibrillation type: chronic Qualified Code(s): I48.2 - Chronic atrial fibrillation
== END 2018-05-11 18:11 | DRG 378 ==
LOC: N07 16:54
PROVIDERS: ADMIT Hospitalist; ATTEND Hospitalist
PROC: PANENDO (2018-05-08 10:50)
PROC: COLONOS (2018-05-10 10:54)
CPT/HCPCS: 36430; 80048; 80053; 82948; 82962; 83735; 85014; 85018; 85025; 85610; 86850; 86900; 86901; 86923; 88305; 94640; 94650; 94667; 97110; 97163; 97167; 97530; 97535; C9113; J1815; J2405; J3475; P9016

== ENCOUNTER 2018-05-18 10:58 | Inpatient (IN) ==
[2018-05-18] MEDS ORDERED: ceFAZolin Inj 1 GM in Sodium Chlor 0.9% Inj 100 ML IV.SIG SCH (11:00)
[2018-05-18] MEDS ORDERED: ceFAZolin Inj 1 GM Vial (Addvantage) IV.SIG ONE ×2 (11:42→11:59)
[2018-05-18] MEDS ORDERED: Sodium Chlor 0.9% Inj 100 ML ONE (11:42)
[2018-05-18] MEDS ORDERED: Bupivacaine/Epinephrine Inj 0.25% 50 ML Vial ONE (12:13)
[2018-05-18] MEDS ORDERED: Chlorhexidine Gluconate 2% 1 Pack (2 Cloths) TOPICAL SCH (12:59)
[2018-05-18] MEDS ORDERED: Metoprolol Tartrate 25 MG Tablet PO SCH (12:59)
[2018-05-18] MEDS ORDERED: Sodium Chlor 0.9% Inj 500 ML IV.SIG SCH (13:00)
[2018-05-18] MEDS ORDERED: Normosol-R pH 7.4 Inj 1,000 ML IV.CONT ONE (13:31)
[2018-05-18] MEDS ORDERED: Sodium Chlor 0.9% Inj 250 ML IV.CONT ONE (13:31)
[2018-05-18] MEDS ORDERED: Glycopyrrolate Inj 1 MG/5 ML Syringe IV.PUSH ONE (13:31)
[2018-05-18] MEDS ORDERED: Lidocaine PF 1% Inj 5 ML Syringe OTHER ONE (13:31)
[2018-05-18] MEDS ORDERED: Neostigmine Inj 5 MG/5 ML Syringe IV.PUSH ONE (13:31)
[2018-05-18] MEDS ORDERED: Phenylephrine/NS 1000 MCG/10ML Syringe IV.PUSH ONE (13:31)
[2018-05-18] MEDS ORDERED: fentaNYL Citrate Inj 100 MCG/2 ML Ampul ONE (14:55)
[2018-05-18] MEDS ORDERED: fentaNYL Citrate Inj 250 MCG/5 ML Ampul ONE (15:00)
--- NOTE | 2018-05-18 17:24 | P.OP ---
- Preoperative Diagnosis (1) Colonic mass - Postoperative Diagnosis (1) Colonic mass Date of procedure: 05/18/18 Procedure: Laparoscopic takedown of splenic flexure of colon Resection small segment of small bowel with primary anastomosis Descending colon resection with primary anastomosis Anesthesia: JESSIKA Surgeon: Tyler Hall MD Quantity Surveyor: Lisa NEWMAN Estimated blood loss (mL): 300 IV fluids (mL): 4,000 Urine output (mL): 400 Pathology: other (Segment of small bowel and descending colon to pathology) Operation and Findings: Patient was taken to the operating room and placed on the operating table in the supine position. After an adequate level of general endotracheal anesthesia was achieved the abdomen was shaved, prepped and draped. Time-out was taken, confirming the correct patient, site, and procedure to be performed. Skin and subcutaneous tissue was infiltrated with local anesthetic and an incision was made in the upper midline. The trocar was placed utilizing the laparoscope and a 5 mm trocar entered the abdominal cavity under direct vision uneventfully. The abdomen was insufflated. 2 additional 5 mm trocars were placed, with the first in the right lower abdomen and the second in the upper midline. Both entered the abdominal cavity under direct vision uneventfully. The descending colon was then manipulated medially. Lateral sidewall adhesions were taken down with the harmonic scalpel and gentle blunt dissection. A loop of small bowel was adhered to the sidewall as well and this was taken down with sharp dissection. When this loop of intestine was rotated medially, the descending colon and splenic flexure could be visualized. The lesion in the descending colon could be palpated with the instruments and at this point the splenic flexure was taken down utilizing the harmonic scalpel. The colon was rotated medially and attachments were taken down with the harmonic scalpel. Care was taken near the spleen to release the spleen from the splenocolic attachments and very minimal bleeding was encountered. When this had been completed and the colon was completely mobilized to the mid transverse colon, insufflation was discontinued. Two trocars were removed while holding the colon near the lesion with a grasper in the third trocar. A left lateral transverse incision was made directly over where the lesion was located and the colon delivered into the wound. The area of the mesentery had a loop of small bowel firmly adhered to it. As this was taken down a segment of the antimesenteric border of the small bowel appeared to have an inflammatory process versus a neoplastic process on it. This area was completely resected and during resection an opening was created in the resected bowel. This was stapled proximally and distally with a NEO stapler. The bowel was placed side to side and a NEO-75 stapler was fired and the toe of the anastomosis reinforced with silk suture. The small bowel was reanastomosed with a TX 60 type stapler. A very small mesenteric defect that had been created was closed with a 3-0 silk suture ligature. Attention was then turned to the mobilized colon. The patient had a very redundant sigmoid colon and this was mobilized up and the splenic flexure mobilized down into the wound. The colon was resected at least 5 cm proximal to the lesion and at least 10 cm distal to the lesion. The mesentery investing this area was taken with the specimen utilizing the harmonic scalpel and 3-0 silk suture ligature. The specimen was passed off the table with the distal margin marked with a silk suture. The colon was then placed side to side and a NEO type stapler fired down the antimesenteric border on the tenia. The toe of the staple line was reinforced with a silk suture as before. The staple line was examined and seen to be hemostatic. A TX 60 type stapler was then fired across the colocolostomy closing the anastomosis. The staple line appeared intact without bleeding. The mesenteric defect was then closed with 3-0 silk suture ligature. When this was completed, the abdomen was irrigated. The left ureter was identified during resection and seen to be intact along its course where the dissection was accomplished. With hemostasis assured, the wound was closed in 2 layers with a running #1 PDS suture. The wound was irrigated with saline and closed with kamlesh. The 3 trocar sites were closed with interrupted buried 4-0 Vicryl suture. Trocar sites were dressed with Steri-Strips and a shanice dressing applied to the transverse incision. The patient's previously open packed wound was repacked with Nu Gauze. The patient was extubated and taken back to the recovery room in stable condition. Sponge, needle and instrument counts were reported to be correct. He remained hemodynamically stable throughout the procedure.
[2018-05-18] MEDS ORDERED: Morphine Inj 4 MG/ML Vial IV.PUSH PRN ×2 (17:28)
[2018-05-18] MEDS ORDERED: Naloxone Inj 0.4 MG/ML Vial IV.PUSH PRN (17:28)
[2018-05-18] MEDS ORDERED: Post-op Orders (for Pharmacy) OTHER ONE (17:28)
[2018-05-18] MEDS ORDERED: Promethazine 25 MG Supp RECTAL PRN (17:28)
--- NOTE | 2018-05-18 17:28 | P.HPGS ---
History of Present Illness Primary Care Physician: UNKNOWN History of Present Illness: Patient is a morbidly obese male who had previously undergone cholecystectomy in April for acute cholecystitis. He also underwent coronary artery bypass grafting in March for three-vessel disease. Patient is admitted at this time for laparoscopic-assisted ascending colectomy for a lesion that was found by colonoscopy with persistent anemia. - Diagnosis (1) Colonic mass Inpatient Certification: I certify that the inpatient services were ordered in accordance with Medicare regulations governing the order. This includes certification that hospital inpatient services are reasonable and necessary and in the case of services not specified as inpatient-only under 42 CFR 419.22(n), that they are appropriately provided as inpatient services in accordance to with the 2-midnight benchmark under 43 CFR 412.3(e) Estimated Total Length of Stay (Days): 6 Plans for Post Hospital Care: Other (Rehab at [facility]) Review of Systems Constitutional: Reports anorexia, Reports fatigue Musculoskeletal: Reports body aches, Reports stiffness Psychiatric: Reports anxiety, Reports change in appetite PMFSH - History History Provided By: Patient - Medical History Medical History: Medical History (Last Reviewed 05/18/18 @ 11:30 by Yadira Lora) Atrial fibrillation Diabetes GERD (gastroesophageal reflux disease) Hypercholesteremia MDRO (multiple drug resistant organisms) resistance Onset Date: ~03/26/18 Multi-vessel coronary artery stenosis - Surgical History Surgical History: Surgical History (Last Reviewed 05/18/18 @ 11:30 by Yadira Lora) H/O gastric bypass Hx laparoscopic cholecystectomy S/P CABG x 3 - Family History Family History: Family History (Last Updated 05/12/18 @ 12:57 by NAOMI Laird) Other Colon cancer - Tobacco History Second Hand Smoke Exposure: No Smoking Status: Former smoker Tobacco Type: Cigars - Alcohol History How Often Do You Have a Drink Containing Alcohol: Never - Substance Use History Substance History: No History of Abuse - Travel History History of Recent Travel: No Recent Travel in the [place] Within the Last 8 Weeks: No Recent Travel Out of the Country Within the Last 8 Weeks: No Medications and Allergies Active Medications: Active Medications Alvimopan (Entereg) 12 mg PO BID THOMAS Stop: 05/25/18 21:01 Alvimopan (Entereg) 12 mg PO [employer] THOMAS Stop: 05/18/18 23:59 Chlorhexidine Gluconate (Chlorhexidine 2% Cloth) 3 pack TOPICAL [employer] COUNTS INCLUDE 234 BEDS AT THE [facility] Stop: 05/21/18 12:58 Lactated Ringer's (Lr 1000 Ml Inj) 1,000 mls @ 30 mls/hr IV.SIG .Q24H COUNTS INCLUDE 234 BEDS AT THE [facility] Stop: 05/21/18 12:59 Sodium Chloride (Ns Inj) 500 mls @ 30 mls/hr IV.SIG .Q10H COUNTS INCLUDE 234 BEDS AT THE [facility] Cefazolin Sodium 1 gm/ Sodium (Chloride) 100 mls @ 200 mls/hr IV.SIG [employer] COUNTS INCLUDE 234 BEDS AT THE [facility] Stop: 05/21/18 10:59 Last Infusion: 05/18/18 15:05 Dose: Infused Metronidazole/Sodium Chloride (Flagyl 500 Mg Inj) 100 mls @ 100 mls/hr IV.SIG [employer] COUNTS INCLUDE 234 BEDS AT THE [facility] Stop: 05/21/18 10:59 Metoprolol Tartrate (Lopressor) 25 mg PO [employer] COUNTS INCLUDE 234 BEDS AT THE [facility] Povidone Iodine (Betadine 5% Antisepsis Kit) 1 applicatio EACH NARE [employer] COUNTS INCLUDE 234 BEDS AT THE [facility] Stop: 05/21/18 12:58 Allergies Allergy/AdvReac Type Severity Reaction Status Date / Time No Known Allergies Allergy Verified 05/18/18 11:30 Exam Vital signs: Vital Signs 05/18/18 12:07 Temperature 97.8 F Pulse Rate 64 Respiratory Rate 18 Blood Pressure 97/61 L Pulse Oximetry 100 Intake & Output 05/17/18 05/18/18 05/18/18 18:59 06:59 18:59 Intake Total 4200 / 4200 Output Total 800 / 800 Balance 3400 / 3400 Weight 101.4 kg Intake: IV 200 / 200 Ancef Inj 1 GM In NS Inj 100 ML 100 / 100 @ 200 mls/hr IV.SIG [employer] COUNTS INCLUDE 234 BEDS AT THE [facility] Rx#:[id number] Flagyl 500 MG Inj 100 ML @ 0 100 / 100 mls/hr IV.SIG .STK-MED ONE Rx#: [id number] Anesthesia Amount 4000 / 4000 Output: Estimated Blood Loss 300 / 300 Urine Amount (Catheter) 500 / 500 Indwelling Urethral Catheter 500 / 500 Other: Weight On Admission 101.4 kg - Constitutional no acute distress - Routine HEENT Exam Head: Present: normocephalic, atraumatic - Routine Neck Exam Present: supple - Routine Respiratory Exam Present: CTA bilaterally - Routine Cardiovascular Exam Present: RRR - Routine Abdominal Exam Present: soft Comments: No masses - Routine Extremities Exam Present: normal capillary refill - Routine Neurological Exam Present: alert, oriented X3 Caprini VTE Risk Assessment Caprini VTE Risk Assessment: Moderate/High Risk (score >= 2) (We will not start DVT prophylaxis until 23 hours after surgery) Caprini Risk Assessment Model: Point Value = 1 Point Value = 2 Point Value = 3 Point Value = 5 Age 41-60 Minor surgery BMI > 25 kg/m2 Swollen legs Varicose veins or History of unexplained or recurrent spontaneous Oral contraceptives or hormone replacement Sepsis (< 1 month) Serious lung disease, including pneumonia (< 1 month) Abnormal pulmonary function Acute myocardial infarction Congestive heart failure (< 1 month) History of inflammatory bowel disease Medical patient at bed rest Age 61-74 Arthroscopic surgery Major open surgery (> 45 min) Laparoscopic surgery (> 45 min) Malignancy Confined to bed (> 72 hours) Immobilizing plaster cast Central venous access Age >= 75 History of VTE Family history of VTE Factor V Leiden Prothrombin [id number] Lupus anticoagulant Anticardiolipin antibodies Elevated serum homocysteine Heparin-induced thrombocytopenia Other congenital or acquired thrombophilia Stroke (< 1 month) Elective arthroplasty Hip, pelvis, or leg fracture Acute spinal cord injury (< 1 month) Prophylaxis Regimen: Total Risk Factor Score Risk Level Prophylaxis Regimen 0-1 Low Early ambulation 2 Moderate Order ONE of the following: *Sequential Compression Device (SCD) *Heparin 5000 units SQ BID 3-4 Higher Order ONE of the following medications: *Heparin 5000 units SQ TID *Enoxaparin/Lovenox 40 mg SQ daily (WT < 150 kg, CrCl > 30 mL/min) *Enoxaparin/Lovenox 30 mg SQ daily (WT < 150 kg, CrCl > 10-29 mL/min) *Enoxaparin/Lovenox 30 mg SQ BID (WT < 150 kg, CrCl > 30 mL/min) AND/OR *Sequential Compression Device (SCD) 5 or more Highest Order ONE of the following medications: *Heparin 5000 units SQ TID (Preferred with Epidurals) *Enoxaparin/Lovenox 40 mg SQ daily (WT < 150 kg, CrCl > 30 mL/min) *Enoxaparin/Lovenox 30 mg SQ daily (WT < 150 kg, CrCl > 10-29 mL/min) *Enoxaparin/Lovenox 30 mg SQ BID (WT < 150 kg, CrCl > 30 mL/min) AND *Sequential Compression Device (SCD) Assessment and Plan - Assessment (1) Colonic mass Code(s): K63.9 - Disease of intestine, unspecified Status: Acute Plan: Laparoscopic assisted descending colectomy - Attending Attestation I attest that I had a [id number] encounter with the patient on the same day, and personally performed and documented my assessment and findings in the medical record. The following services were provided during this hospital visit: Chart data review, vital sign assessments/reviewing monitor data Review of consultation notes if present Medication orders/review and/or management Ordering and/or reviewing lab tests Ordering and/or interpreting/reviewing x-rays and/or diagnostic studies Care of the patient and discussion of the patient with the care team Documentation time To help prompt me to consider important information that might be impacting today's encounter and assessment, Information from prior notes written by myself or my colleagues may have been "brought forward/copy and pasted" into today's note. H&P: Quality - VTE Deep Vein Thrombosis/Pulmonary Embolism Present on Admission: No
[2018-05-18 18:04] LABS: Hematocrit 28.9 % (39.0-51.0); Hemoglobin 9.4 gm/dL (13.0-17.0); Mean Corpuscular HGB Conc 32.6 % (32.0-36.0); Mean Corpuscular Hemoglobin 27.8 pg (27.0-34.0); Mean Corpuscular Volume 85.4 fL (80.0-100.0); Mean Platelet Volume 8.3 fL (7.0-11.0); Platelet Count 325 th/mm3 (150-450); Red Blood Count 3.38 mil/mm3 (4.50-5.90); Red Cell Distribution Width 16.5 % (11.6-17.2)
[2018-05-18] MEDS: KCL 20 mEq/D5W/NaCl 0.45% Inj 1,000 ML IV.CONT SCH (18:12)
[2018-05-18] MEDS ORDERED: *morphine SULFATE 4 MG/ML PERIprocedure ONLY ONE (18:25)
[2018-05-18] MEDS: Pantoprazole Inj 40 MG Vial IV.PUSH SCH (18:38)
[2018-05-18 19:02] LABS: Anion Gap 12 meq/L (5-15); Blood Urea Nitrogen 7 mg/dL (7-18); Carbon Dioxide 23.8 meq/L (21.0-32.0); Chloride 104 meq/L (98-107); Glomerular Filtration Rate Greater Than 89 mL/min (>89); Glucose,Random 149 mg/dL (74-106); Sodium 140 meq/L (136-145)
[2018-05-18] MEDS ORDERED: Albumin Human 5% Inj 500 ML IV.SIG ONE (19:17)
[2018-05-18 19:21] LABS: Albumin 1.7 g/dL (3.4-5.0); Calcium-Albumin Corrected 8.8 mg/dL (8.5-10.1)
[2018-05-18] MEDS: Morphine Inj 4 MG/ML Vial IV.PUSH PRN (21:15)
[2018-05-19] MEDS: Morphine Inj 4 MG/ML Vial IV.PUSH PRN ×2 (00:25→10:41)
[2018-05-19] MEDS: KCL 20 mEq/D5W/NaCl 0.45% Inj 1,000 ML IV.CONT SCH ×3 (03:03→17:28)
[2018-05-19] MEDS: HYDROmorphone PF Inj 1 MG/ML Ampul IV.PUSH PRN ×3 (04:53→21:16)
[2018-05-19 05:02] LABS: Baso % (Auto) 0.3 % (0.0-2.0); Hematocrit 25.2 % (39.0-51.0); Hemoglobin 8.3 gm/dL (13.0-17.0); Mean Corpuscular HGB Conc 32.9 % (32.0-36.0); Mean Corpuscular Hemoglobin 27.8 pg (27.0-34.0); Mean Corpuscular Volume 84.5 fL (80.0-100.0); Mean Platelet Volume 8.7 fL (7.0-11.0); Mono # (Auto) 0.9 th/mm3 (0.0-0.9); Mono % (Auto) 8.1 % (0.0-8.0); Neut % (Auto) 82.6 % (16.0-70.0); Platelet Count 253 th/mm3 (150-450); Red Blood Count 2.98 mil/mm3 (4.50-5.90); Red Cell Distribution Width 16.4 % (11.6-17.2); White Blood Count 10.9 th/mm3 (4.0-11.0)
[2018-05-19 05:20] LABS: Anion Gap 8 meq/L (5-15); Blood Urea Nitrogen 8 mg/dL (7-18); Calcium 6.9 mg/dL (8.5-10.1); Carbon Dioxide 25.6 meq/L (21.0-32.0); Chloride 103 meq/L (98-107); Glomerular Filtration Rate Greater Than 89 mL/min (>89); Glucose,Random 253 mg/dL (74-106); Potassium 4.7 meq/L (3.5-5.1); Sodium 137 meq/L (136-145)
[2018-05-19 05:46] LABS: Calcium-Albumin Corrected 8.5 mg/dL (8.5-10.1)
[2018-05-19] MEDS ORDERED: Sod Chloride 0.9% Inj 1,000 ML IV.SIG SCH (08:15)
[2018-05-19] MEDS: Mupirocin 2% Nasal Oint Topical Syringe EACH NARE SCH ×2 (09:04→21:31)
--- NOTE | 2018-05-19 09:18 | P.PNGS ---
Subjective Interval history: Resting in bed Nauseous RN Shilpi and Pat at bedside Physical Exam Vital signs: Vital Signs 05/18/18 12:07 05/18/18 17:40 05/18/18 17:45 Temperature 97.8 F 97.5 F L Pulse Rate 64 96 H 95 H Respiratory Rate 18 18 21 Blood Pressure 97/61 L 90/53 L 90/58 L Pulse Oximetry 100 95 94 L 05/18/18 18:00 05/18/18 18:15 05/18/18 18:30 Temperature Pulse Rate 91 H 92 H 91 H Respiratory Rate 22 22 17 Blood Pressure 86/54 L 88/55 L 81/51 L Pulse Oximetry 95 97 97 05/18/18 18:45 05/18/18 19:00 05/18/18 19:15 Temperature Pulse Rate 95 H 91 H 94 H Respiratory Rate 23 20 14 Blood Pressure 70/47 L 82/49 L Pulse Oximetry 97 98 99 05/18/18 19:30 05/18/18 19:45 05/18/18 20:30 Temperature 97.4 F L Pulse Rate 94 H 94 H 90 Respiratory Rate 14 17 16 Blood Pressure 85/53 L Pulse Oximetry 98 95 97 05/18/18 20:56 05/18/18 20:57 05/18/18 21:00 Temperature 97.5 F L Pulse Rate 89 Respiratory Rate 17 Blood Pressure 106/55 L Pulse Oximetry 95 94 L 96 05/18/18 21:17 05/18/18 21:50 05/18/18 21:54 Temperature Pulse Rate 87 87 Respiratory Rate 17 14 Blood Pressure 100/55 L Pulse Oximetry 99 05/18/18 22:00 05/18/18 22:03 05/18/18 23:00 Temperature Pulse Rate 87 87 87 Respiratory Rate 13 13 12 Blood Pressure 97/56 L Pulse Oximetry 98 98 98 05/18/18 23:03 05/19/18 00:00 05/19/18 00:03 Temperature Pulse Rate 91 H 88 87 Respiratory Rate 22 13 16 Blood Pressure 96/52 L 89/54 L Pulse Oximetry 98 99 96 05/19/18 01:00 05/19/18 01:03 05/19/18 01:23 Temperature Pulse Rate 81 81 Respiratory Rate 12 13 12 Blood Pressure 102/56 L Pulse Oximetry 97 97 05/19/18 02:00 05/19/18 02:03 05/19/18 03:00 Temperature Pulse Rate 79 78 79 Respiratory Rate 12 12 12 Blood Pressure 93/54 L Pulse Oximetry 97 97 97 05/19/18 03:03 05/19/18 04:00 05/19/18 04:03 Temperature 97.9 F Pulse Rate 80 79 80 Respiratory Rate 12 12 13 Blood Pressure 90/50 L 87/55 L Pulse Oximetry 97 97 97 05/19/18 04:14 05/19/18 04:52 05/19/18 05:00 Temperature Pulse Rate 85 86 Respiratory Rate 15 29 H 12 Blood Pressure 93/56 L Pulse Oximetry 94 L 98 05/19/18 05:03 05/19/18 06:00 05/19/18 06:03 Temperature Pulse Rate 87 87 92 H Respiratory Rate 13 13 25 H Blood Pressure 99/54 L 90/54 L Pulse Oximetry 98 97 97 05/19/18 06:08 05/19/18 07:00 05/19/18 07:03 Temperature Pulse Rate 87 87 Respiratory Rate 13 13 12 Blood Pressure 92/51 L Pulse Oximetry 97 97 05/19/18 07:15 05/19/18 07:30 05/19/18 07:45 Temperature Pulse Rate 88 87 91 H Respiratory Rate 13 14 20 Blood Pressure Pulse Oximetry 97 97 96 05/19/18 08:00 05/19/18 08:03 05/19/18 08:10 Temperature Pulse Rate 89 87 88 Respiratory Rate 18 15 20 Blood Pressure 83/50 L 90/52 L Pulse Oximetry 96 96 96 05/19/18 08:15 05/19/18 08:22 05/19/18 08:30 Temperature Pulse Rate 87 84 85 Respiratory Rate 19 13 16 Blood Pressure 88/50 L Pulse Oximetry 95 96 96 05/19/18 08:45 Temperature Pulse Rate 86 Respiratory Rate 20 Blood Pressure Pulse Oximetry 97 Intake & Output 05/18/18 05/19/18 05/19/18 18:59 06:59 18:59 Intake Total 4200 / 4200 3500 / 3500 1000 / 1000 Output Total 900 / 900 775 / 775 Balance 3300 / 3300 2725 / 2725 1000 / 1000 Weight 101.4 kg 102.6 kg Intake: IV 200 / 200 2600 / 2600 1000 / 1000 D5W/1/2NS + KCL 20 mEq Inj 1, 1000 / 1000 1000 / 1000 000 ML @ 125 mls/hr IV.CONT . Q8H [facility] Rx#:[id number] Ofirmev Inj 1,000 mg In 100 ml 100 / 100 @ 400 mls/hr IV.SIG NOW ONE Rx# :[id number] Alburx 5% Inj 500 ML @ 500 mls/ 500 / 500 hr IV.SIG NOW ONE Rx#:[id number] LR 1000 mL Inj 1,000 ML @ 1000 1000 / 1000 mls/hr IV.SIG .Q1H [facility] Rx#: [id number] Ancef Inj 1 GM In NS Inj 100 ML 100 / 100 @ 200 mls/hr IV.SIG [employer] [facility] Rx#:[id number] Flagyl 500 MG Inj 100 ML @ 0 100 / 100 mls/hr IV.SIG .STK-MED ONE Rx#: [id number] Oral 0 / 0 Anesthesia Amount 4000 / 4000 Other 900 / 900 Output: Estimated Blood Loss 300 / 300 Urine Amount (Catheter) 600 / 600 775 / 775 Indwelling Urethral Catheter 600 / 600 775 / 775 Other: Weight On Admission 101.4 kg Narrative: Alert and awake; weak Abd: Soft; obese; VICTORIANO is saturated with serosanguineous drainage---removed--- placed dry Primapore dressing Umbilical packing removed--- re-packed with Iodoform packing Pavon in place with clear yellow urine - Urinary Catheter Management Indwelling Urethral Catheter Cath placed during this visit: yes Reason for continuing: Hourly intake/output Insertion date: 05/18/18 Results - Labs 05/30/18 10:00 05/30/18 10:00 Laboratory Results - last 24 hr 05/18/18 05/18/18 05/18/18 17:53 17:53 18:14 WBC 15.0 H D RBC 3.38 L Hgb 9.4 L Hct 28.9 L MCV 85.4 MCH 27.8 MCHC 32.6 RDW 16.5 Plt Count 325 MPV 8.3 Neut % (Auto) Lymph % (Auto) Barren % (Auto) Eos % (Auto) Baso % (Auto) Neut # (Auto) Lymph # (Auto) Barren # (Auto) Eos # (Auto) Baso # (Auto) WBC Differential Differential Comment Sodium 140 Potassium 4.0 Chloride 104 Carbon Dioxide 23.8 Anion Gap 12 BUN 7 Creatinine 0.51 L Estimated GFR Greater than 89 POC Glucose 157 H Random Glucose 149 H Calcium 7.0 L* Calcium Adj for Albumin 8.8 Albumin 1.7 L Nasal Screen MRSA (PCR) 05/18/18 05/19/18 05/19/18 21:39 01:11 04:30 WBC 10.9 RBC 2.98 L Hgb 8.3 L Hct 25.2 L MCV 84.5 MCH 27.8 MCHC 32.9 RDW 16.4 Plt Count 253 MPV 8.7 Neut % (Auto) 82.6 H Lymph % (Auto) 9.0 Barren % (Auto) 8.1 H Eos % (Auto) 0.0 Baso % (Auto) 0.3 Neut # (Auto) 9.0 H Lymph # (Auto) 1.0 Barren # (Auto) 0.9 Eos # (Auto) 0.0 Baso # (Auto) 0.0 WBC Differential . Differential Comment Auto diff final Sodium Potassium Chloride Carbon Dioxide Anion Gap BUN Creatinine Estimated GFR POC Glucose 232 H Random Glucose Calcium Calcium Adj for Albumin Albumin Nasal Screen MRSA (PCR) Mrsa detected 05/19/18 04:30 WBC RBC Hgb Hct MCV MCH MCHC RDW Plt Count MPV Neut % (Auto) Lymph % (Auto) Barren % (Auto) Eos % (Auto) Baso % (Auto) Neut # (Auto) Lymph # (Auto) Barren # (Auto) Eos # (Auto) Baso # (Auto) WBC Differential Differential Comment Sodium 137 Potassium 4.7 Chloride 103 Carbon Dioxide 25.6 Anion Gap 8 BUN 8 Creatinine 0.50 L Estimated GFR Greater than 89 POC Glucose Random Glucose 253 H D Calcium 6.9 L* Calcium Adj for Albumin 8.5 Albumin 2.0 L Nasal Screen MRSA (PCR) Assessment and Plan - Assessment (1) Colonic mass Code(s): K63.9 - Disease of intestine, unspecified Status: Acute Plan: 67 year old male POD1 Laparoscopic assisted descending colectomy -Hmg/Hct stable -UOP adequate -Hypotensive this AM--- 1L NS now -Consult CCM ---discussed with Dr. Champagne -I updated his Niece Itzel -I will come back and check on patient this afternoon -Discussed with Dr. Alejandre, Shilpi RN and Pat RN Patient started on Levophed, as he likely has vasodilatory hypotension, as he is well perfused. Antibiotics given Likely also volume depleted, as he is morbidly obese and did not receive large volume of fluid yesterday. Will need to stay in [facility] at least through today. The exam, history, and the medical decision-making described in the above note were completed with the assistance of the mid-level provider. I reviewed and agree with the findings presented. I attest that I had a [id number] encounter with the patient on the same day, and personally performed and documented my assessment and findings in the medical record.
--- NOTE | 2018-05-19 09:41 | XR ---
EXAM DATE: 05/19/2018 9:35 AM EST AGE/SEX: 67 years / Male INDICATIONS: Possible sepsis CLINICAL DATA: This is the patient's initial encounter. Patient reports that signs and symptoms have been present for 1 week and indicates a pain score of Nonresponsive. MEDICAL/SURGICAL HISTORY: Gastroesophageal reflux disease. diabetes CABG. gastric bypass COMPARISON: [facility], CHEST 1V SINGLE AP, 05/07/2018. . FINDINGS: There is a large left pleural effusion and left lung base consolidation and/or compressive collapse. Right lung base opacity is present may be due to a combination of consolidation and or pleu ral effusion. The rest of the examination has not changed. CONCLUSION: Right lung base opacity is present may be due to a combination of consolidation and or pleural effusi on. Worsening left lung base opacity most likely worsening pleural effusion and left lung base conso lidation. Electronically signed by: Connie Beaver MD Board Certified Radiologist 05/19/2018 9:39 AM EST
--- NOTE | 2018-05-19 09:48 | P.PNIM ---
Subjective Interval history: Status post laparoscopic-assisted ascending colectomy. Pressure is relatively low this morning. Pain is controlled. No other complaints. Physical Exam Vital signs: Last Vital Signs Temp 97.9 F 05/19/18 04:00 Pulse 86 05/19/18 08:45 Resp 20 05/19/18 08:45 BP 88/50 L 05/19/18 08:22 Pulse Ox 97 05/19/18 08:45 Intake & Output 05/17/18 05/18/18 05/19/18 05/20/18 06:59 06:59 06:59 06:59 Intake Total 7700 / 7700 1000 / 1000 Output Total 1675 / 1675 Balance 6025 / 6025 1000 / 1000 Weight 102.6 kg Narrative: GENERAL: NAD, A&Ox3 HEAD: Normocephalic. NECK: Supple, trachea midline. No lymphadenopathy. EYES: No scleral icterus. No injection or drainage. CARDIOVASCULAR: Regular rate and rhythm without murmurs, gallops, or rubs. RESPIRATORY: Breath sounds equal bilaterally. No accessory muscle use. GASTROINTESTINAL: Abdomen soft, non-tender, nondistended. MUSCULOSKELETAL: No cyanosis, or edema. Anterior chest scar, no abdominal wounds with new abdominal colectomy. SKIN: Warm and dry. NEURO: No focal neurological deficits. Urinary Catheter Management Indwelling Urethral Catheter: Cath placed during this visit: yes Urethral indwelling: No Insertion date: 05/18/18 Results Labs CBC & Chem 7: 05/19/18 04:30 05/19/18 04:30 Assessment and Plan (1) Colonic mass: Code(s): K63.9 - Disease of intestine, unspecified Status: Acute Plan 67 year old male with complicated course since initial admission for complaint of abdominal pain, N/V. Found with positive trop, S/P cardiac cath with CAD. Required CABG. Also diagnosed with sepsis, acute cholecystitis. Initially treated with burt tube and underwent lap burt. Was discharged to [facility] on and developed GI bleed and required transfer back to [facility] hospital. S/P colonoscopy with findings of circumferential mass, path showing tubulous villous adenoma. Patient is subsequently status post colon resection with colectomy. Blood pressure is low this morning. Fluid bolus in process. If fluid bolus fails will start a central line and start pressors. Recent GI bleed s/p colonoscopy-findings of circumferential mass near obstructive Status post colon resection and colectomy Path tubulous villous adenoma Path may not be reflective of entire mass. Unclear if malignant Follow pathology Oncology following General surgery following Follow CBC Follow BMP Hypotension Fluid bolus in process A fluid bolus is not successful start pressors Patient will need central line of pressors initiated Recent NSTEMI s/p CABG x3 by Dr. Carlin no c/o chest pain Continue aspirin Continue amiodarone S/P lap cholecystectomy by Dr. Hall 04/24 for History of acute gangrenous cholecystitis Continue postop care for this Surgeons following Anemia multifactorial, postoperative anemia of acute blood loss, GIB as above Follow CBC Blood transfusions as needed Atrial fibrillation Status post CABG Continue metoprolol, as tolerated Continue amiodarone Continue Cardizem, as tolerated Chronic CHF EF preserved, not decompensated EF 60-65%, trace to mild MR Continue LasixFollow volume status Diabetes mellitus type 2 Follow blood sugars Insulin sliding scale Diabetic diet Chronic DVT right IJ site conservative management Hyperlipidemia Continue present treatment Follow as an outpatient Continue atorvastatin Obesity hx of gastric bypass surgery Continue dietary changes once diet resumed Weight loss management Ultimately exercise recommended though not today DVT prophylaxis SCDs Progress Note: Quality VTE Deep Vein Thrombosis/Pulmonary Embolism Present on Admission: No
[2018-05-19] MEDS ORDERED: Norepinephrine Inj 4 MG in Sodium Chlor 0.9% Inj 246 ML IV.SIG PRN (11:57)
[2018-05-19 12:59] LABS: Bacteria,Urine Rare /hpf; Bilirubin,Urine Negative (Negative); Clarity,Urine Hazy (Clear); Color,Urine Yellow (Yellw/Straw); Glucose,Urine (UA) 50 mg/dL (Negative); Leukocyte Esterase,Urine Small (Negative); Mucus,Urine Few /lpf (Occasional); Nitrite,Urine Negative (Negative); Specific Gravity,Urine 1.017 (1.002-1.035); Squamous Epithelial Cell,Urine <1 /hpf (0-5); Uric Acid Crystals,Urine Rare /hpf
--- NOTE | 2018-05-19 13:00 | P.PN ---
Subjective Interval history: Patient will need a PICC line. I am aware of the pending blood cultures, but patient still needs a line. Physical Exam Vital signs: Vital Signs 05/18/18 17:40 05/18/18 17:45 05/18/18 18:00 Temperature 97.5 F L Pulse Rate 96 H 95 H 91 H Respiratory Rate 18 21 22 Blood Pressure 90/53 L 90/58 L 86/54 L Pulse Oximetry 95 94 L 95 05/18/18 18:15 05/18/18 18:30 05/18/18 18:45 Temperature Pulse Rate 92 H 91 H 95 H Respiratory Rate 22 17 23 Blood Pressure 88/55 L 81/51 L 70/47 L Pulse Oximetry 97 97 97 05/18/18 19:00 05/18/18 19:15 05/18/18 19:30 Temperature Pulse Rate 91 H 94 H 94 H Respiratory Rate 20 14 14 Blood Pressure 82/49 L 85/53 L Pulse Oximetry 98 99 98 05/18/18 19:45 05/18/18 20:30 05/18/18 20:56 Temperature 97.4 F L Pulse Rate 94 H 90 Respiratory Rate 17 16 Blood Pressure Pulse Oximetry 95 97 95 05/18/18 20:57 05/18/18 21:00 05/18/18 21:17 Temperature 97.5 F L Pulse Rate 89 87 Respiratory Rate 17 17 Blood Pressure 106/55 L 100/55 L Pulse Oximetry 94 L 96 99 05/18/18 21:50 05/18/18 21:54 05/18/18 22:00 Temperature Pulse Rate 87 87 Respiratory Rate 14 13 Blood Pressure Pulse Oximetry 98 05/18/18 22:03 05/18/18 23:00 05/18/18 23:03 Temperature Pulse Rate 87 87 91 H Respiratory Rate 13 12 22 Blood Pressure 97/56 L 96/52 L Pulse Oximetry 98 98 98 05/19/18 00:00 05/19/18 00:03 05/19/18 01:00 Temperature Pulse Rate 88 87 81 Respiratory Rate 13 16 12 Blood Pressure 89/54 L Pulse Oximetry 99 96 97 05/19/18 01:03 05/19/18 01:23 05/19/18 02:00 Temperature Pulse Rate 81 79 Respiratory Rate 13 12 12 Blood Pressure 102/56 L Pulse Oximetry 97 97 05/19/18 02:03 05/19/18 03:00 05/19/18 03:03 Temperature Pulse Rate 78 79 80 Respiratory Rate 12 12 12 Blood Pressure 93/54 L 90/50 L Pulse Oximetry 97 97 97 05/19/18 04:00 05/19/18 04:03 05/19/18 04:14 Temperature 97.9 F Pulse Rate 79 80 85 Respiratory Rate 12 13 15 Blood Pressure 87/55 L 93/56 L Pulse Oximetry 97 97 94 L 05/19/18 04:52 05/19/18 05:00 05/19/18 05:03 Temperature Pulse Rate 86 87 Respiratory Rate 29 H 12 13 Blood Pressure 99/54 L Pulse Oximetry 98 98 05/19/18 06:00 05/19/18 06:03 05/19/18 06:08 Temperature Pulse Rate 87 92 H Respiratory Rate 13 25 H 13 Blood Pressure 90/54 L Pulse Oximetry 97 97 05/19/18 07:00 05/19/18 07:03 05/19/18 07:15 Temperature Pulse Rate 87 87 88 Respiratory Rate 13 12 13 Blood Pressure 92/51 L Pulse Oximetry 97 97 97 05/19/18 07:30 05/19/18 07:45 05/19/18 08:00 Temperature Pulse Rate 87 91 H 80 Respiratory Rate 14 20 18 Blood Pressure Pulse Oximetry 97 96 96 05/19/18 08:03 05/19/18 08:10 05/19/18 08:15 Temperature Pulse Rate 87 88 87 Respiratory Rate 15 20 19 Blood Pressure 83/50 L 90/52 L Pulse Oximetry 96 96 95 05/19/18 08:22 05/19/18 08:30 05/19/18 08:45 Temperature Pulse Rate 84 85 86 Respiratory Rate 13 16 20 Blood Pressure 88/50 L Pulse Oximetry 96 96 97 05/19/18 09:00 05/19/18 09:03 05/19/18 09:15 Temperature Pulse Rate 85 86 81 Respiratory Rate 18 28 H 12 Blood Pressure 90/52 L Pulse Oximetry 98 97 98 05/19/18 09:30 05/19/18 09:40 05/19/18 09:45 Temperature Pulse Rate 80 83 79 Respiratory Rate 21 17 18 Blood Pressure 98/55 L Pulse Oximetry 99 99 100 05/19/18 10:00 05/19/18 10:03 05/19/18 10:15 Temperature Pulse Rate 80 81 81 Respiratory Rate 13 18 18 Blood Pressure 99/57 L Pulse Oximetry 100 100 100 05/19/18 10:30 05/19/18 10:45 05/19/18 10:50 Temperature Pulse Rate 77 82 83 Respiratory Rate 14 20 25 H Blood Pressure 93/56 L Pulse Oximetry 100 100 100 05/19/18 11:00 05/19/18 11:03 05/19/18 11:15 Temperature Pulse Rate 80 81 82 Respiratory Rate 15 13 20 Blood Pressure 96/54 L Pulse Oximetry 100 100 100 05/19/18 11:30 05/19/18 11:45 05/19/18 12:00 Temperature 97.7 F Pulse Rate 82 84 85 Respiratory Rate 13 14 22 Blood Pressure Pulse Oximetry 100 100 99 Intake & Output 05/18/18 05/19/18 05/19/18 18:59 06:59 18:59 Intake Total 4200 / 4200 3500 / 3500 2100 / 2100 Output Total 900 / 900 775 / 775 Balance 3300 / 3300 2725 / 2725 2100 / 2100 Weight 101.4 kg 102.6 kg Intake: IV 200 / 200 2600 / 2600 2100 / 2100 D5W/1/2NS + KCL 20 mEq Inj 1, 1000 / 1000 1000 / 1000 000 ML @ 125 mls/hr IV.CONT . Q8H [facility] Rx#:[id number] Ofirmev Inj 1,000 mg In 100 ml 100 / 100 @ 400 mls/hr IV.SIG NOW ONE Rx# :[id number] Alburx 5% Inj 500 ML @ 500 mls/ 500 / 500 hr IV.SIG NOW [facility] Rx#:[id number] LR 1000 mL Inj 1,000 ML @ 1000 1000 / 1000 mls/hr IV.SIG .Q1H [facility] Rx#: [id number] NS Inj 1,000 ML @ 1000 mls/hr 1000 / 1000 IV.SIG BOLUS [facility] Rx#:[id number] Ancef Inj 1 GM In NS Inj 100 ML 100 / 100 @ 200 mls/hr IV.SIG [facility] [employer] Rx#:[id number] Rocephin Inj 1,000 MG In NS Inj 100 / 100 100 ML @ 200 mls/hr IV.SIG ONCE [facility] Rx#:[id number] Flagyl 500 MG Inj 100 ML @ 0 100 / 100 mls/hr IV.SIG .STK-MED ONE Rx#: [id number] Oral 0 / 0 Anesthesia Amount 4000 / 4000 Other 900 / 900 Output: Estimated Blood Loss 300 / 300 Urine Amount (Catheter) 600 / 600 775 / 775 Indwelling Urethral Catheter 600 / 600 775 / 775 Other: Weight On Admission 101.4 kg - Urinary Catheter Management Indwelling Urethral Catheter Cath placed during this visit: yes Urethral indwelling: No Reason for continuing: Hourly intake/output Insertion date: 05/18/18 Results - Labs CBC & Chem 7: 05/19/18 04:30 05/19/18 04:30 Laboratory Results - last 24 hr 05/18/18 05/18/18 05/18/18 17:53 17:53 18:14 WBC 15.0 H D RBC 3.38 L Hgb 9.4 L Hct 28.9 L MCV 85.4 MCH 27.8 MCHC 32.6 RDW 16.5 Plt Count 325 MPV 8.3 Neut % (Auto) Lymph % (Auto) [place] % (Auto) Eos % (Auto) Baso % (Auto) Neut # (Auto) Lymph # (Auto) [place] # (Auto) Eos # (Auto) Baso # (Auto) WBC Differential Differential Comment Sodium 140 Potassium 4.0 Chloride 104 Carbon Dioxide 23.8 Anion Gap 12 BUN 7 Creatinine 0.51 L Estimated GFR Greater than 89 POC Glucose 157 H Random Glucose 149 H Calcium 7.0 L* Calcium Adj for Albumin 8.8 Albumin 1.7 L Nasal Screen MRSA (PCR) 05/18/18 05/19/18 05/19/18 21:39 01:11 04:30 WBC 10.9 RBC 2.98 L Hgb 8.3 L Hct 25.2 L MCV 84.5 MCH 27.8 MCHC 32.9 RDW 16.4 Plt Count 253 MPV 8.7 Neut % (Auto) 82.6 H Lymph % (Auto) 9.0 [place] % (Auto) 8.1 H Eos % (Auto) 0.0 Baso % (Auto) 0.3 Neut # (Auto) 9.0 H Lymph # (Auto) 1.0 [place] # (Auto) 0.9 Eos # (Auto) 0.0 Baso # (Auto) 0.0 WBC Differential . Differential Comment Auto diff final Sodium Potassium Chloride Carbon Dioxide Anion Gap BUN Creatinine Estimated GFR POC Glucose 232 H Random Glucose Calcium Calcium Adj for Albumin Albumin Nasal Screen MRSA (PCR) Mrsa detected 05/19/18 04:30 WBC RBC Hgb Hct MCV MCH MCHC RDW Plt Count MPV Neut % (Auto) Lymph % (Auto) [place] % (Auto) Eos % (Auto) Baso % (Auto) Neut # (Auto) Lymph # (Auto) [place] # (Auto) Eos # (Auto) Baso # (Auto) WBC Differential Differential Comment Sodium 137 Potassium 4.7 Chloride 103 Carbon Dioxide 25.6 Anion Gap 8 BUN 8 Creatinine 0.50 L Estimated GFR Greater than 89 POC Glucose Random Glucose 253 H D Calcium 6.9 L* Calcium Adj for Albumin 8.5 Albumin 2.0 L Nasal Screen MRSA (PCR) - Imaging Impressions Chest X-Ray 05/19/18 00:00 CONCLUSION: Right lung base opacity is present may be due to a combination of consolidation and or pleural effusion. Worsening left lung base opacity most likely worsening pleural effusion and left lung base consolidation.
[2018-05-19] MEDS ORDERED: Heparin Central Flush 100 UNIT/ML 5 ML Vial IV.FLUSH PRN (14:36)
[2018-05-19] MEDS: Enoxaparin Inj 40 MG/0.4 ML Syringe SQ SCH (17:27)
[2018-05-19] MEDS: Pantoprazole Inj 40 MG Vial IV.PUSH SCH (17:27)
[2018-05-20] MEDS: KCL 20 mEq/D5W/NaCl 0.45% Inj 1,000 ML IV.CONT SCH ×3 (03:57→17:01)
[2018-05-20] MEDS: Chlorhexidine Gluconate 2% 1 Pack (2 Cloths) TOPICAL SCH (03:58)
[2018-05-20] MEDS ORDERED: Chlorhexidine Gluconate 2% 1 Pack (2 Cloths) TOPICAL PRN (04:00)
[2018-05-20 06:14] LABS: Baso # (Auto) 0.1 th/mm3 (0.0-0.2); Eos # (Auto) 0.1 th/mm3 (0.0-0.4); Eos % (Auto) 0.8 % (0.0-4.0); Hematocrit 23.8 % (39.0-51.0); Hemoglobin 7.9 gm/dL (13.0-17.0); Lymph # (Auto) 1.3 th/mm3 (1.0-4.8); Lymph % (Auto) 12.9 % (9.0-44.0); Mean Corpuscular HGB Conc 33.1 % (32.0-36.0); Mean Corpuscular Hemoglobin 28.2 pg (27.0-34.0); Mean Platelet Volume 8.8 fL (7.0-11.0); Mono # (Auto) 1.2 th/mm3 (0.0-0.9); Mono % (Auto) 12.3 % (0.0-8.0); Neut # (Auto) 7.4 th/mm3 (1.8-7.7); Platelet Count 255 th/mm3 (150-450); Red Cell Distribution Width 16.7 % (11.6-17.2); White Blood Count 10.1 th/mm3 (4.0-11.0)
[2018-05-20 07:09] LABS: Alanine Aminotransferase 10 U/L (12-78); Albumin 1.7 g/dL (3.4-5.0); Alkaline Phosphatase 93 U/L (45-117); Anion Gap 3 meq/L (5-15); Aspartate Aminotransferase 10 U/L (15-37); Blood Urea Nitrogen 5 mg/dL (7-18); Calcium 6.9 mg/dL (8.5-10.1); Carbon Dioxide 28.8 meq/L (21.0-32.0); Chloride 105 meq/L (98-107); Glomerular Filtration Rate Greater Than 89 mL/min (>89); Glucose,Random 201 mg/dL (74-106); Potassium 4.3 meq/L (3.5-5.1); Sodium 137 meq/L (136-145); Total Protein 5.1 g/dL (6.4-8.2)
[2018-05-20] MEDS: HYDROmorphone PF Inj 1 MG/ML Ampul IV.PUSH PRN ×4 (08:27→21:32)
[2018-05-20] MEDS: Mupirocin 2% Nasal Oint Topical Syringe EACH NARE SCH ×2 (08:28→20:23)
[2018-05-20] MEDS: Heparin Central Flush 100 UNIT/ML 5 ML Vial IV.FLUSH SCH (08:28)
[2018-05-20] MEDS: Enoxaparin Inj 40 MG/0.4 ML Syringe SQ SCH (17:01)
[2018-05-20] MEDS: Pantoprazole Inj 40 MG Vial IV.PUSH SCH (17:01)
--- NOTE | 2018-05-20 19:06 | P.PNGS ---
Subjective Patient reports: still having pain (off levo, pain on left side) Physical Exam Vital signs: Vital Signs 05/19/18 19:15 05/19/18 19:30 05/19/18 19:45 Temperature Pulse Rate 87 87 87 Respiratory Rate 15 15 18 Blood Pressure Pulse Oximetry 100 100 100 05/19/18 20:00 05/19/18 20:03 05/19/18 20:15 Temperature 97.6 F Pulse Rate 87 87 87 Respiratory Rate 20 20 13 Blood Pressure 111/58 L Pulse Oximetry 100 100 99 05/19/18 20:30 05/19/18 20:45 05/19/18 20:46 Temperature Pulse Rate 87 100 H 99 H Respiratory Rate 18 25 H 24 Blood Pressure 84/51 L Pulse Oximetry 99 97 98 05/19/18 21:00 05/19/18 21:03 05/19/18 21:15 Temperature Pulse Rate 95 H 97 H 96 H Respiratory Rate 27 H 29 H 23 Blood Pressure 83/43 L Pulse Oximetry 98 98 100 05/19/18 21:20 05/19/18 21:30 05/19/18 21:45 Temperature Pulse Rate 92 H 89 Respiratory Rate 21 20 Blood Pressure Pulse Oximetry 99 100 100 05/19/18 22:00 05/19/18 22:03 05/19/18 22:15 Temperature Pulse Rate 89 88 90 Respiratory Rate 16 14 18 Blood Pressure 100/55 L Pulse Oximetry 100 100 100 05/19/18 22:30 05/19/18 22:45 05/19/18 23:00 Temperature Pulse Rate 90 89 91 H Respiratory Rate 16 16 19 Blood Pressure Pulse Oximetry 100 100 100 05/19/18 23:03 05/19/18 23:15 05/19/18 23:30 Temperature Pulse Rate 91 H 91 H 107 H Respiratory Rate 18 14 23 Blood Pressure 106/55 L Pulse Oximetry 100 100 95 05/19/18 23:45 05/20/18 00:00 05/20/18 00:03 Temperature 98.5 F Pulse Rate 99 H 98 H 98 H Respiratory Rate 19 20 19 Blood Pressure 90/55 L Pulse Oximetry 95 95 96 05/20/18 00:15 05/20/18 00:30 05/20/18 00:45 Temperature Pulse Rate 98 H 98 H 98 H Respiratory Rate 16 15 15 Blood Pressure Pulse Oximetry 94 L 93 L 91 L 05/20/18 01:00 05/20/18 01:03 05/20/18 01:15 Temperature Pulse Rate 98 H 98 H 101 H Respiratory Rate 14 14 21 Blood Pressure 93/52 L Pulse Oximetry 93 L 94 L 96 05/20/18 01:30 05/20/18 01:45 05/20/18 02:00 Temperature Pulse Rate 96 H 96 H 96 H Respiratory Rate 15 14 14 Blood Pressure Pulse Oximetry 95 94 L 95 05/20/18 02:03 05/20/18 02:15 05/20/18 02:30 Temperature Pulse Rate 96 H 95 H 94 H Respiratory Rate 16 15 13 Blood Pressure 92/54 L Pulse Oximetry 97 95 96 05/20/18 02:45 05/20/18 03:00 05/20/18 03:03 Temperature Pulse Rate 94 H 94 H 93 H Respiratory Rate 13 15 14 Blood Pressure 96/53 L Pulse Oximetry 96 95 96 05/20/18 03:15 05/20/18 03:30 05/20/18 03:45 Temperature Pulse Rate 93 H 95 H 93 H Respiratory Rate 13 15 14 Blood Pressure Pulse Oximetry 95 97 95 05/20/18 04:00 05/20/18 04:03 05/20/18 04:15 Temperature 98.1 F Pulse Rate 95 H 92 H 94 H Respiratory Rate 20 15 20 Blood Pressure 106/56 L Pulse Oximetry 97 95 96 05/20/18 04:30 05/20/18 04:45 05/20/18 05:00 Temperature Pulse Rate 94 H 93 H 90 Respiratory Rate 23 14 18 Blood Pressure Pulse Oximetry 94 L 92 L 91 L 05/20/18 05:03 05/20/18 05:15 05/20/18 05:30 Temperature Pulse Rate 90 89 87 Respiratory Rate 17 18 13 Blood Pressure 89/52 L Pulse Oximetry 91 L 94 L 92 L 05/20/18 05:45 05/20/18 06:00 05/20/18 06:03 Temperature Pulse Rate 87 83 86 Respiratory Rate 12 19 14 Blood Pressure 95/53 L Pulse Oximetry 93 L 92 L 92 L 05/20/18 07:00 05/20/18 07:03 05/20/18 08:00 Temperature 98.2 F Pulse Rate 87 87 87 Respiratory Rate 13 12 17 Blood Pressure 101/56 L Pulse Oximetry 94 L 92 L 93 L 05/20/18 08:03 05/20/18 09:00 05/20/18 09:03 Temperature Pulse Rate 88 86 86 Respiratory Rate 16 14 13 Blood Pressure 97/59 L 92/53 L Pulse Oximetry 92 L 92 L 92 L 05/20/18 10:00 05/20/18 10:03 05/20/18 11:00 Temperature Pulse Rate 88 90 87 Respiratory Rate 14 19 12 Blood Pressure 111/57 L Pulse Oximetry 94 L 95 93 L 05/20/18 11:03 05/20/18 12:00 05/20/18 12:03 Temperature 98.0 F Pulse Rate 86 89 89 Respiratory Rate 13 18 21 Blood Pressure 103/55 L 103/57 L Pulse Oximetry 93 L 96 95 05/20/18 13:00 05/20/18 13:03 05/20/18 14:00 Temperature Pulse Rate 87 87 91 H Respiratory Rate 19 17 17 Blood Pressure 97/64 L Pulse Oximetry 94 L 93 L 96 05/20/18 14:03 05/20/18 15:00 05/20/18 15:03 Temperature Pulse Rate 102 H 91 H 90 Respiratory Rate 23 14 12 Blood Pressure 105/61 105/59 L Pulse Oximetry 96 95 95 05/20/18 16:00 05/20/18 16:03 05/20/18 17:00 Temperature 98.2 F Pulse Rate 92 H 90 92 H Respiratory Rate 18 15 20 Blood Pressure 106/59 L Pulse Oximetry 93 L 93 L 94 L 05/20/18 17:03 05/20/18 18:00 05/20/18 18:03 Temperature Pulse Rate 92 H 96 H 98 H Respiratory Rate 19 23 21 Blood Pressure 104/56 L 109/57 L Pulse Oximetry 94 L 94 L 93 L Intake & Output 05/20/18 05/20/18 05/21/18 06:59 18:59 06:59 Intake Total 519 / 519 2691 / 2691 Output Total 550 / 550 650 / 650 Balance - / -2040 Weight 106.5 kg Intake: IV 269 / 269 1731 / 173 D5W/1/2NS + KCL 20 mEq Inj 1, 269 / 269 173 / 173 000 ML @ 125 mls/hr IV.CONT . Q8H [facility] Rx#:[id number] Oral 250 / 250 960 / 960 Output: Stool 0 / 0 Urine Amount (Catheter) 550 / 550 650 / 650 Indwelling Urethral Catheter 550 / 550 650 / 650 - Routine Abdominal Exam Present: soft (+ttp left side, packing in place to umblilius) - Urinary Catheter Management Indwelling Urethral Catheter Cath placed during this visit: yes Urethral indwelling: No Reason for continuing: Hourly intake/output Insertion date: 05/18/18 Results - Labs 05/20/18 05:56 05/20/18 05:56 Laboratory Results - last 24 hr 05/19/18 05/20/18 05/20/18 23:23 05:56 05:56 WBC 10.1 RBC 2.80 L Hgb 7.9 L Hct 23.8 L MCV 85.0 MCH 28.2 MCHC 33.1 RDW 16.7 Plt Count 255 MPV 8.8 Neut % (Auto) 73.0 H Lymph % (Auto) 12.9 [place] % (Auto) 12.3 H Eos % (Auto) 0.8 Baso % (Auto) 1.0 Neut # (Auto) 7.4 Lymph # (Auto) 1.3 [place] # (Auto) 1.2 H Eos # (Auto) 0.1 Baso # (Auto) 0.1 WBC Differential . Differential Comment Auto diff final Sodium 137 Potassium 4.3 Chloride 105 Carbon Dioxide 28.8 Anion Gap 3 L BUN 5 L Creatinine 0.58 L Estimated GFR Greater than 89 POC Glucose 212 H Random Glucose 201 H Calcium 6.9 L* Calcium Adj for Albumin 8.7 Total Bilirubin 0.3 AST 10 L ALT 10 L Alkaline Phosphatase 93 Total Protein 5.1 L Albumin 1.7 L - Imaging Imaging: ITS Impressions Chest X-Ray 05/19/18 00:00 CONCLUSION: Right lung base opacity is present may be due to a combination of consolidation and or pleural effusion. Worsening left lung base opacity most likely worsening pleural effusion and left lung base consolidation. Assessment and Plan - Assessment (1) Colonic mass Code(s): K63.9 - Disease of intestine, unspecified Status: Acute Plan: 67 year old male POD2 Laparoscopic assisted descending colectomy -Hmg/Hct stable -UOP adequate -bp improved -following CCM -encourage oob to chair and IS
[2018-05-21] MEDS: HYDROmorphone PF Inj 1 MG/ML Ampul IV.PUSH PRN ×4 (00:38→21:09)
[2018-05-21] MEDS: KCL 20 mEq/D5W/NaCl 0.45% Inj 1,000 ML IV.CONT SCH ×3 (00:41→17:44)
[2018-05-21] MEDS: Chlorhexidine Gluconate 2% 1 Pack (2 Cloths) TOPICAL SCH (03:32)
[2018-05-21] MEDS: Heparin Central Flush 100 UNIT/ML 5 ML Vial IV.FLUSH SCH (08:10)
[2018-05-21] MEDS: Mupirocin 2% Nasal Oint Topical Syringe EACH NARE SCH ×2 (08:10→21:09)
--- NOTE | 2018-05-21 10:57 | P.PNGS ---
Subjective Patient reports: still having pain (Patient indicates he is had increased pain in the left side of his abdomen. This occurred when turning in the bed. He is getting Dilaudid which helps but he still has pain. He denies any vomiting. He just recently got an oral medication for nausea which helped. He has not had any bowel movement or flatus yet.) Physical Exam Vital signs: Vital Signs 05/20/18 11:00 05/20/18 11:03 05/20/18 12:00 Temperature Pulse Rate 87 86 89 Respiratory Rate 12 13 18 Blood Pressure 103/55 L Pulse Oximetry 93 L 93 L 96 05/20/18 12:03 05/20/18 13:00 05/20/18 13:03 Temperature 98.0 F Pulse Rate 89 87 87 Respiratory Rate 21 19 17 Blood Pressure 103/57 L 97/64 L Pulse Oximetry 95 94 L 93 L 05/20/18 14:00 05/20/18 14:03 05/20/18 15:00 Temperature Pulse Rate 91 H 102 H 91 H Respiratory Rate 17 23 14 Blood Pressure 105/61 Pulse Oximetry 96 96 95 05/20/18 15:03 05/20/18 16:00 05/20/18 16:03 Temperature 98.2 F Pulse Rate 90 92 H 90 Respiratory Rate 12 18 15 Blood Pressure 105/59 L 106/59 L Pulse Oximetry 95 93 L 93 L 05/20/18 17:00 05/20/18 17:03 05/20/18 18:00 Temperature Pulse Rate 92 H 92 H 96 H Respiratory Rate 20 19 23 Blood Pressure 104/56 L Pulse Oximetry 94 L 94 L 94 L 05/20/18 18:03 05/20/18 19:00 05/20/18 19:03 Temperature Pulse Rate 98 H 96 H 96 H Respiratory Rate 21 19 19 Blood Pressure 109/57 L 108/62 Pulse Oximetry 93 L 95 95 05/20/18 20:00 05/20/18 20:03 05/20/18 21:00 Temperature 98.1 F Pulse Rate 88 92 H 90 Respiratory Rate 18 17 16 Blood Pressure 106/57 L Pulse Oximetry 97 95 95 05/20/18 21:03 05/20/18 22:00 05/20/18 22:03 Temperature Pulse Rate 92 H 90 92 H Respiratory Rate 16 13 16 Blood Pressure 110/52 L 105/57 L Pulse Oximetry 95 95 96 05/20/18 22:11 05/20/18 23:00 05/20/18 23:03 Temperature Pulse Rate 95 H 93 H Respiratory Rate 14 17 15 Blood Pressure 110/51 L Pulse Oximetry 95 96 05/20/18 23:55 05/20/18 23:58 05/21/18 00:00 Temperature 98.1 F Pulse Rate 90 96 H Respiratory Rate 18 22 Blood Pressure Pulse Oximetry 95 05/21/18 00:03 05/21/18 01:00 05/21/18 01:03 Temperature Pulse Rate 95 H 89 90 Respiratory Rate 20 16 16 Blood Pressure 102/59 L 100/59 L Pulse Oximetry 95 95 95 05/21/18 01:34 05/21/18 02:00 05/21/18 02:03 Temperature Pulse Rate 88 88 Respiratory Rate 18 18 17 Blood Pressure 106/56 L Pulse Oximetry 95 95 05/21/18 03:00 05/21/18 03:03 05/21/18 04:00 Temperature 98.1 F Pulse Rate 84 84 82 Respiratory Rate 19 21 15 Blood Pressure 106/59 L Pulse Oximetry 95 95 92 L 05/21/18 04:03 05/21/18 05:00 05/21/18 05:03 Temperature Pulse Rate 83 82 83 Respiratory Rate 18 20 20 Blood Pressure 101/58 L 106/59 L Pulse Oximetry 95 95 95 05/21/18 06:00 05/21/18 06:03 05/21/18 06:26 Temperature Pulse Rate 80 80 Respiratory Rate 13 13 18 Blood Pressure 106/62 Pulse Oximetry 95 95 Intake & Output 05/20/18 05/21/18 05/21/18 18:59 06:59 18:59 Intake Total 2691 / 2691 971 / 971 1000 / 1000 Output Total 650 / 650 750 / 750 Balance 2041 / 2041 221 / 221 1000 / 1000 Weight 108.4 kg Intake: IV 1731 / 1731 731 / 731 1000 / 1000 D5W/1/2NS + KCL 20 mEq Inj 1, 1731 / 1731 731 / 731 1000 / 1000 000 ML @ 125 mls/hr IV.CONT . Q8H [facility] Rx#:[id number] Oral 960 / 960 240 / 240 Output: Urine Amount (Catheter) 650 / 650 750 / 750 Indwelling Urethral Catheter 650 / 650 750 / 750 Narrative: He is awake and alert. His lung sounds are clear and equal anteriorly bilaterally. He has a fairly recently a healing midline sternotomy incision. His abdomen is soft and nondistended. There are few bowel sounds. His left lower quadrant incision is healing nicely with kamlesh intact and minimal yellow serous drainage. Tiny laparoscopy incisions are also healing well. He is mildly diffusely edematous. He has sequential compression device on bilateral lower extremities. He has no calf tenderness to palpation. - Urinary Catheter Management Indwelling Urethral Catheter Cath placed during this visit: yes Urethral indwelling: No Reason for continuing: Hourly intake/output Insertion date: 05/18/18 Results - Labs 05/20/18 05:56 05/20/18 05:56 - Imaging Imaging: ITS Impressions Chest X-Ray 05/19/18 00:00 CONCLUSION: Right lung base opacity is present may be due to a combination of consolidation and or pleural effusion. Worsening left lung base opacity most likely worsening pleural effusion and left lung base consolidation. Assessment and Plan - Assessment (1) Colonic mass Code(s): K63.9 - Disease of intestine, unspecified Status: Acute Plan: 67 year old male POD2 Laparoscopic assisted descending colectomy -Hmg/Hct stable -UOP adequate -bp improved -following CCM -encourage oob to chair and IS - Plan Patient is postop day 3 status post laparoscopic-assisted ascending colectomy. His main complaint is pain. I have added Ofirmev and low-dose Toradol to alternate every 3 hours. He has not had any flatus or bowel movement yet. His potassium is good at 4.3. He is showing no signs of bowel anastomotic leak or dehiscence. Continue supportive therapy. Discussed Condition With: Patient
[2018-05-21] MEDS: Ketorolac Inj 30 MG/ML (IVP) Vial IV.PUSH SCH ×3 (13:24→22:18)
[2018-05-21] MEDS: Pantoprazole Inj 40 MG Vial IV.PUSH SCH (17:42)
[2018-05-21] MEDS: Enoxaparin Inj 40 MG/0.4 ML Syringe SQ SCH (17:42)
[2018-05-22] MEDS: KCL 20 mEq/D5W/NaCl 0.45% Inj 1,000 ML IV.CONT SCH ×3 (02:23→17:39)
[2018-05-22] MEDS: HYDROmorphone PF Inj 1 MG/ML Ampul IV.PUSH PRN ×2 (02:24→10:05)
[2018-05-22] MEDS: Chlorhexidine Gluconate 2% 1 Pack (2 Cloths) TOPICAL SCH (03:11)
[2018-05-22] MEDS: Ketorolac Inj 30 MG/ML (IVP) Vial IV.PUSH SCH ×4 (04:42→23:20)
--- NOTE | 2018-05-22 08:12 | P.PNGS ---
Subjective Interval history: Resting in bed Pain better today Physical Exam Vital signs: Vital Signs 05/21/18 09:00 05/21/18 09:03 05/21/18 10:00 Temperature Pulse Rate 80 90 86 Respiratory Rate 18 20 21 Blood Pressure 102/67 Pulse Oximetry 94 L 92 L 98 05/21/18 10:03 05/21/18 11:00 05/21/18 11:03 Temperature Pulse Rate 87 78 80 Respiratory Rate 22 23 31 H Blood Pressure 105/57 L 112/58 L Pulse Oximetry 98 95 96 05/21/18 12:00 05/21/18 12:03 05/21/18 13:00 Temperature Pulse Rate 79 78 86 Respiratory Rate 20 23 23 Blood Pressure 102/59 L Pulse Oximetry 95 96 94 L 05/21/18 13:03 05/21/18 14:00 05/21/18 14:03 Temperature Pulse Rate 80 81 80 Respiratory Rate 19 18 17 Blood Pressure 115/56 L 101/57 L Pulse Oximetry 97 98 98 05/21/18 15:00 05/21/18 15:03 05/21/18 16:00 Temperature Pulse Rate 78 76 74 Respiratory Rate 13 18 13 Blood Pressure 94/55 L Pulse Oximetry 95 95 97 05/21/18 16:03 05/21/18 17:00 05/21/18 17:03 Temperature Pulse Rate 74 75 74 Respiratory Rate 23 9 L 19 Blood Pressure 99/55 L 112/60 Pulse Oximetry 97 98 97 05/21/18 18:00 05/21/18 18:03 05/21/18 19:00 Temperature Pulse Rate 86 85 77 Respiratory Rate 20 19 18 Blood Pressure 111/57 L Pulse Oximetry 99 99 96 05/21/18 19:03 05/21/18 20:00 05/21/18 20:03 Temperature 97.7 F Pulse Rate 77 76 77 Respiratory Rate 14 20 15 Blood Pressure 105/61 99/63 L Pulse Oximetry 96 97 96 05/21/18 21:00 05/21/18 21:03 05/21/18 21:39 Temperature Pulse Rate 73 75 Respiratory Rate 22 21 16 Blood Pressure 114/55 L Pulse Oximetry 96 97 05/21/18 22:00 05/21/18 22:03 05/21/18 22:48 Temperature Pulse Rate 75 77 Respiratory Rate 18 24 19 Blood Pressure 107/59 L Pulse Oximetry 94 L 96 05/21/18 23:00 05/21/18 23:03 05/22/18 00:00 Temperature 97.7 F Pulse Rate 77 73 69 Respiratory Rate 16 16 16 Blood Pressure 99/52 L Pulse Oximetry 96 96 100 05/22/18 00:03 05/22/18 01:00 05/22/18 01:03 Temperature Pulse Rate 69 68 68 Respiratory Rate 9 L 18 14 Blood Pressure 99/57 L 98/56 L Pulse Oximetry 100 99 100 05/22/18 02:00 05/22/18 02:03 05/22/18 02:54 Temperature Pulse Rate 70 71 Respiratory Rate 14 14 13 Blood Pressure 114/62 Pulse Oximetry 100 100 05/22/18 03:00 05/22/18 03:03 05/22/18 04:00 Temperature Pulse Rate 65 66 64 Respiratory Rate 12 12 12 Blood Pressure 99/54 L Pulse Oximetry 99 99 100 05/22/18 04:03 05/22/18 05:00 05/22/18 05:03 Temperature 97.7 F Pulse Rate 65 63 64 Respiratory Rate 12 16 16 Blood Pressure 108/57 L 106/61 Pulse Oximetry 100 99 99 05/22/18 05:12 05/22/18 06:00 05/22/18 06:03 Temperature Pulse Rate 64 64 Respiratory Rate 14 14 14 Blood Pressure 90/54 L Pulse Oximetry 100 100 05/22/18 07:00 05/22/18 07:03 Temperature Pulse Rate 66 65 Respiratory Rate 10 L 11 L Blood Pressure 99/62 L Pulse Oximetry 100 100 Intake & Output 05/21/18 05/22/18 05/22/18 18:59 06:59 18:59 Intake Total 7240 / 7240 1540 / 1540 Output Total 1050 / 1050 1650 / 1650 Balance 6190 / 6190 -110 / -110 Weight 108.4 kg Intake: IV 2099 / 2099 1300 / 1300 D5W/1/2NS + KCL 20 mEq Inj 1999 / 1999 1000 / 1000 000 ML @ 125 mls/hr IV.CONT . Q8H [facility] Rx#:[id number] Ofirmev Inj 1,000 mg In 100 ml 100 / 100 300 / 300 @ 400 mls/hr IV.SIG Q6H [facility] Rx# :[id number] Oral 240 / 240 240 / 240 Anesthesia Amount 4000 / 4000 Other 900 / 900 Output: Stool 0 / 0 Estimated Blood Loss 300 / 300 Urine Amount (Catheter) 750 / 750 1650 / 1650 Indwelling Urethral Catheter 750 / 750 1650 / 1650 Other: # Bowel Movements 0 Narrative: Alert and awake Abd: soft; minimally tender; LEFT sided abdominal incision c/d/i with kamlesh--- - heavy drainage pad in place Minimal generalized edema - Urinary Catheter Management Indwelling Urethral Catheter Cath placed during this visit: yes Urethral indwelling: No Reason for continuing: Hourly intake/output Insertion date: 05/18/18 Results - Labs 05/30/18 10:00 05/30/18 10:00 - Imaging Imaging: ITS Impressions Chest X-Ray 05/19/18 00:00 CONCLUSION: Right lung base opacity is present may be due to a combination of consolidation and or pleural effusion. Worsening left lung base opacity most likely worsening pleural effusion and left lung base consolidation. Assessment and Plan - Assessment (1) Colonic mass Code(s): K63.9 - Disease of intestine, unspecified Status: Acute Plan: 67 year old male POD4 Laparoscopic assisted descending colectomy -Check labs today -UOP adequate -BP now improved; off Levophed -PT eval -IS -Await pathology results -Discussed with LAMONTE Hughes at bedside Improved today Needs to stay in ISC for observation and bolus if needed with close monitoring of BP VICTORIANO intact with minimal drainage present. The exam, history, and the medical decision-making described in the above note were completed with the assistance of the mid-level provider. I reviewed and agree with the findings presented. I attest that I had a [id number] encounter with the patient on the same day, and personally performed and documented my assessment and findings in the medical record.
[2018-05-22 09:02] LABS: Baso # (Auto) 0.1 th/mm3 (0.0-0.2); Baso % (Auto) 0.9 % (0.0-2.0); Eos # (Auto) 0.5 th/mm3 (0.0-0.4); Eos % (Auto) 6.8 % (0.0-4.0); Hemoglobin 7.1 gm/dL (13.0-17.0); Lymph # (Auto) 1.2 th/mm3 (1.0-4.8); Lymph % (Auto) 18.4 % (9.0-44.0); Mean Corpuscular HGB Conc 32.2 % (32.0-36.0); Mean Corpuscular Hemoglobin 27.7 pg (27.0-34.0); Mean Corpuscular Volume 86.1 fL (80.0-100.0); Mono # (Auto) 0.6 th/mm3 (0.0-0.9); Mono % (Auto) 9.4 % (0.0-8.0); Neut # (Auto) 4.3 th/mm3 (1.8-7.7); Neut % (Auto) 64.5 % (16.0-70.0); Platelet Count 241 th/mm3 (150-450); Red Blood Count 2.56 mil/mm3 (4.50-5.90); Red Cell Distribution Width 16.3 % (11.6-17.2); White Blood Count 6.7 th/mm3 (4.0-11.0)
[2018-05-22 09:04] LABS: Anion Gap 4 meq/L (5-15); Blood Urea Nitrogen 4 mg/dL (7-18); Calcium 7.2 mg/dL (8.5-10.1); Carbon Dioxide 28.1 meq/L (21.0-32.0); Chloride 107 meq/L (98-107); Glomerular Filtration Rate Greater Than 89 mL/min (>89); Glucose,Random 176 mg/dL (74-106); Potassium 4.1 meq/L (3.5-5.1); Sodium 139 meq/L (136-145)
[2018-05-22 09:19] LABS: Albumin 1.5 g/dL (3.4-5.0); Calcium-Albumin Corrected 9.2 mg/dL (8.5-10.1)
[2018-05-22] MEDS: Mupirocin 2% Nasal Oint Topical Syringe EACH NARE SCH ×2 (10:03→21:21)
[2018-05-22] MEDS: Heparin Central Flush 100 UNIT/ML 5 ML Vial IV.FLUSH SCH (10:04)
--- NOTE | 2018-05-22 17:03 | P.PN ---
Subjective Interval history: awake and alert had a small BM today per patient + flatus slight nausea but tolerated current diet- liquids Physical Exam Vital signs: Vital Signs 05/21/18 17:00 05/21/18 17:03 05/21/18 18:00 Temperature Pulse Rate 75 74 86 Respiratory Rate 9 L 19 20 Blood Pressure 112/60 Pulse Oximetry 98 97 99 05/21/18 18:03 05/21/18 19:00 05/21/18 19:03 Temperature Pulse Rate 85 77 77 Respiratory Rate 19 18 14 Blood Pressure 111/57 L 105/61 Pulse Oximetry 99 96 96 05/21/18 20:00 05/21/18 20:03 05/21/18 21:00 Temperature 97.7 F Pulse Rate 76 77 73 Respiratory Rate 20 15 22 Blood Pressure 99/63 L Pulse Oximetry 97 96 96 05/21/18 21:03 05/21/18 21:39 05/21/18 22:00 Temperature Pulse Rate 75 75 Respiratory Rate 21 16 18 Blood Pressure 114/55 L Pulse Oximetry 97 94 L 05/21/18 22:03 05/21/18 22:48 05/21/18 23:00 Temperature Pulse Rate 77 77 Respiratory Rate 24 19 16 Blood Pressure 107/59 L Pulse Oximetry 96 96 05/21/18 23:03 05/22/18 00:00 05/22/18 00:03 Temperature 97.7 F Pulse Rate 73 69 69 Respiratory Rate 16 16 9 L Blood Pressure 99/52 L 99/57 L Pulse Oximetry 96 100 100 05/22/18 01:00 05/22/18 01:03 05/22/18 02:00 Temperature Pulse Rate 68 68 70 Respiratory Rate 18 14 14 Blood Pressure 98/56 L Pulse Oximetry 99 100 100 05/22/18 02:03 05/22/18 02:54 05/22/18 03:00 Temperature Pulse Rate 71 65 Respiratory Rate 14 13 12 Blood Pressure 114/62 Pulse Oximetry 100 99 05/22/18 03:03 05/22/18 04:00 05/22/18 04:03 Temperature 97.7 F Pulse Rate 66 64 65 Respiratory Rate 12 12 12 Blood Pressure 99/54 L 108/57 L Pulse Oximetry 99 100 100 05/22/18 05:00 05/22/18 05:03 05/22/18 05:12 Temperature Pulse Rate 63 64 Respiratory Rate 16 16 14 Blood Pressure 106/61 Pulse Oximetry 99 99 05/22/18 06:00 05/22/18 06:03 05/22/18 07:00 Temperature Pulse Rate 64 64 66 Respiratory Rate 14 14 10 L Blood Pressure 90/54 L Pulse Oximetry 100 100 100 05/22/18 07:03 05/22/18 08:00 05/22/18 08:03 Temperature 97.7 F Pulse Rate 65 68 74 Respiratory Rate 11 L 13 18 Blood Pressure 99/62 L 138/68 Pulse Oximetry 100 100 100 05/22/18 09:00 05/22/18 09:03 05/22/18 10:00 Temperature Pulse Rate 74 74 71 Respiratory Rate 24 20 22 Blood Pressure 98/53 L Pulse Oximetry 95 94 L 97 05/22/18 10:03 05/22/18 11:00 05/22/18 11:03 Temperature Pulse Rate 76 68 69 Respiratory Rate 20 21 15 Blood Pressure 122/60 109/61 Pulse Oximetry 98 95 95 05/22/18 12:00 05/22/18 12:07 05/22/18 12:27 Temperature Pulse Rate 69 68 Respiratory Rate 20 Blood Pressure 114/63 Pulse Oximetry 99 05/22/18 13:00 05/22/18 14:00 05/22/18 14:03 Temperature Pulse Rate 65 75 75 Respiratory Rate 24 24 26 H Blood Pressure 117/62 109/62 Pulse Oximetry 100 99 100 05/22/18 15:00 05/22/18 15:03 05/22/18 15:22 Temperature 97.9 F Pulse Rate 69 69 69 Respiratory Rate 19 20 21 Blood Pressure 111/60 111/60 Pulse Oximetry 96 96 97 05/22/18 15:38 05/22/18 15:39 05/22/18 16:00 Temperature 97.9 F Pulse Rate 69 68 75 Respiratory Rate 22 16 22 Blood Pressure 112/59 L Pulse Oximetry 97 97 95 05/22/18 16:03 Temperature Pulse Rate 77 Respiratory Rate 34 H Blood Pressure 128/57 L Pulse Oximetry 98 Intake & Output 05/21/18 05/22/18 05/22/18 18:59 06:59 18:59 Intake Total 7240 / 7240 1540 / 1540 0 / 0 Output Total 1050 / 1050 1650 / 1650 Balance 6190 / 6190 -110 / -110 0 / 0 Weight 108.4 kg Intake: IV 2100 / 2100 1300 / 1300 D5W/1/2NS + KCL 20 mEq Inj 1, 1999 / 1999 1000 / 1000 000 ML @ 125 mls/hr IV.CONT . Q8H [facility] Rx#:[id number] Ofirmev Inj 1,000 mg In 100 ml 100 / 100 300 / 300 @ 400 mls/hr IV.SIG Q6H [facility] Rx# :[id number] Oral 240 / 240 240 / 240 Anesthesia Amount 4000 / 4000 Other 900 / 900 Intake (Blood Product) Amt 0 / 0 Rbc As-3 Leukoreduced Unit 0 / 0 [id number] Output: Stool 0 / 0 Estimated Blood Loss 300 / 300 Urine Amount (Catheter) 750 / 750 1650 / 1650 Indwelling Urethral Catheter 750 / 750 1650 / 1650 Other: # Bowel Movements 0 Narrative: Alert and awake anicteric neck supople lungs- no wheezes regular rhythm Abd: soft;- incision dry- kamlesh in place trace pretibial edema - Urinary Catheter Management Indwelling Urethral Catheter Cath placed during this visit: yes Urethral indwelling: No Reason for continuing: Hourly intake/output Insertion date: 05/18/18 Results - Labs CBC & Chem 7: 05/22/18 08:26 05/22/18 08:26 Laboratory Results - last 24 hr 05/22/18 05/22/18 05/22/18 08:26 08:26 12:38 WBC 6.7 RBC 2.56 L Hgb 7.1 L Hct 22.0 L MCV 86.1 MCH 27.7 MCHC 32.2 RDW 16.3 Plt Count 241 MPV 9.0 Neut % (Auto) 64.5 Lymph % (Auto) 18.4 [place] % (Auto) 9.4 H Eos % (Auto) 6.8 H Baso % (Auto) 0.9 Neut # (Auto) 4.3 Lymph # (Auto) 1.2 [place] # (Auto) 0.6 Eos # (Auto) 0.5 H Baso # (Auto) 0.1 WBC Differential . Differential Comment Auto diff final Sodium 139 Potassium 4.1 Chloride 107 Carbon Dioxide 28.1 Anion Gap 4 L BUN 4 L Creatinine 0.47 L Estimated GFR Greater than 89 Random Glucose 176 H Calcium 7.2 L* Calcium Adj for Albumin 9.2 Albumin 1.5 L Blood Type A Positive Antibody Screen Negative MTS Gel Crossmatch See Detail Microbiology 05/19/18 09:35 Blood - Peripheral Aerobic Blood Culture - Preliminary No growth in 3 days 05/19/18 09:35 Blood - Peripheral Anaerobic Blood Culture - Preliminary No growth in 3 days 05/19/18 09:40 Blood - Peripheral Aerobic Blood Culture - Preliminary No growth in 3 days 05/19/18 09:40 Blood - Peripheral Anaerobic Blood Culture - Preliminary No growth in 3 days Assessment and Plan - Assessment (1) Colonic mass Code(s): K63.9 - Disease of intestine, unspecified Status: Acute - Plan 67 year old male with complicated course since initial admission for complaint of abdominal pain, N/V. Found with positive trop, S/P cardiac cath with CAD. Required CABG. Also diagnosed with sepsis, acute cholecystitis. Initially treated with burt tube and underwent lap burt. Was discharged to [facility] on and developed GI bleed and required transfer back to [facility]. S/P colonoscopy with findings of circumferential mass, path showing tubulous villous adenoma. Patient is subsequently status post colon resection with colectomy. Blood pressure is low this morning. Fluid bolus in process. If fluid bolus fails will start a central line and start pressors. Recent GI bleed s/p colonoscopy-findings of circumferential mass near obstructive Status post colon resection and colectomy Path tubulous villous adenoma Acute anemia- dizzy when stood up -ordered for and getting 1 unit RBC today Path may not be reflective of entire mass. Unclear if malignant Follow pathology Oncology following General surgery following Follow CBC Follow BMP Hypotension-improved - for 1 unit RBC today- Recent NSTEMI s/p CABG x3 by Dr. Carlin no c/o chest pain Continue aspirin Continue amiodarone S/P lap cholecystectomy by Dr. Hall 04/24 for History of acute gangrenous cholecystitis Continue postop care for this Surgeons following roxann mei per GS Atrial fibrillation- currently SR on telemetry Status post CABG Continue metoprolol, as tolerated Continue amiodarone Continue Cardizem, as tolerated Chronic CHF EF preserved, not decompensated EF 60-65%, trace to mild MR Continue LasixFollow volume status Diabetes mellitus type 2 Follow blood sugars Insulin sliding scale Diabetic diet Chronic DVT right IJ site conservative management Hyperlipidemia Continue present treatment Follow as an outpatient Continue atorvastatin Obesity hx of gastric bypass surgery Continue dietary changes once diet resumed Weight loss management Ultimately exercise recommended though not today DVT prophylaxis SCDs Progress Note: Quality VTE Deep Vein Thrombosis/Pulmonary Embolism Present on Admission: No
[2018-05-22] MEDS: Pantoprazole Inj 40 MG Vial IV.PUSH SCH (17:40)
[2018-05-22] MEDS: Enoxaparin Inj 40 MG/0.4 ML Syringe SQ SCH (17:40)
[2018-05-23] MEDS: Chlorhexidine Gluconate 2% 1 Pack (2 Cloths) TOPICAL SCH (04:09)
[2018-05-23] MEDS: Morphine Inj 4 MG/ML Vial IV.PUSH PRN (04:10)
[2018-05-23] MEDS: Ketorolac Inj 30 MG/ML (IVP) Vial IV.PUSH SCH ×4 (04:10→22:58)
[2018-05-23 06:18] LABS: Baso # (Auto) 0.1 th/mm3 (0.0-0.2); Baso % (Auto) 1.1 % (0.0-2.0); Eos # (Auto) 0.5 th/mm3 (0.0-0.4); Eos % (Auto) 6.9 % (0.0-4.0); Hematocrit 23.4 % (39.0-51.0); Hemoglobin 7.8 gm/dL (13.0-17.0); Lymph # (Auto) 1.3 th/mm3 (1.0-4.8); Lymph % (Auto) 19.3 % (9.0-44.0); Mean Corpuscular HGB Conc 33.2 % (32.0-36.0); Mean Corpuscular Hemoglobin 27.8 pg (27.0-34.0); Mean Corpuscular Volume 83.7 fL (80.0-100.0); Mean Platelet Volume 8.2 fL (7.0-11.0); Mono # (Auto) 0.7 th/mm3 (0.0-0.9); Mono % (Auto) 9.8 % (0.0-8.0); Neut # (Auto) 4.3 th/mm3 (1.8-7.7); Neut % (Auto) 62.9 % (16.0-70.0); Platelet Count 282 th/mm3 (150-450); Red Blood Count 2.79 mil/mm3 (4.50-5.90); Red Cell Distribution Width 15.7 % (11.6-17.2); White Blood Count 6.8 th/mm3 (4.0-11.0)
--- NOTE | 2018-05-23 09:01 | P.PNGS ---
Subjective Interval history: Is upset because he dropped his call [place] last night and it was 4.5 hours before someone came to check on him and he needed to use the restroom Otherwise, he is tolerating clear liquids. Feels ready to start full liquids. Would like to get back to Rehab as soon as possible Physical Exam Vital signs: Vital Signs 05/22/18 09:00 05/22/18 09:03 05/22/18 10:00 Temperature Pulse Rate 74 74 71 Respiratory Rate 24 20 22 Blood Pressure 98/53 L Pulse Oximetry 95 94 L 97 05/22/18 10:03 05/22/18 11:00 05/22/18 11:03 Temperature Pulse Rate 76 68 69 Respiratory Rate 20 21 15 Blood Pressure 122/60 109/61 Pulse Oximetry 98 95 95 05/22/18 12:00 05/22/18 12:07 05/22/18 12:27 Temperature Pulse Rate 69 68 Respiratory Rate 20 Blood Pressure 114/63 Pulse Oximetry 99 05/22/18 13:00 05/22/18 14:00 05/22/18 14:03 Temperature Pulse Rate 65 75 75 Respiratory Rate 24 24 26 H Blood Pressure 117/62 109/62 Pulse Oximetry 100 99 100 05/22/18 15:00 05/22/18 15:03 05/22/18 15:22 Temperature 97.9 F Pulse Rate 69 69 69 Respiratory Rate 19 20 21 Blood Pressure 111/60 111/60 Pulse Oximetry 96 96 97 05/22/18 15:38 05/22/18 15:39 05/22/18 16:00 Temperature 97.9 F Pulse Rate 69 68 75 Respiratory Rate 22 16 22 Blood Pressure 112/59 L Pulse Oximetry 97 97 95 05/22/18 16:03 05/22/18 18:01 05/22/18 20:00 Temperature 97.8 F 97.7 F Pulse Rate 77 72 76 Respiratory Rate 34 H 19 20 Blood Pressure 128/57 L 116/60 Pulse Oximetry 98 100 96 05/22/18 23:51 05/23/18 08:00 Temperature 97.7 F 97.8 F Pulse Rate 75 69 Respiratory Rate 20 17 Blood Pressure 111/63 96/52 L Pulse Oximetry 96 94 L Intake & Output 05/22/18 05/23/18 05/23/18 18:59 06:59 18:59 Intake Total 1880 / 1880 500 / 500 Output Total 1400 / 1400 Balance 480 / 480 500 / 500 Weight 108.4 kg Intake: IV 1000 / 1000 D5W/1/2NS + KCL 20 mEq Inj 1, 1000 / 1000 000 ML @ 75 mls/hr IV.CONT . [id number] [facility] Rx#:[id number] Oral 480 / 480 500 / 500 Intake (Blood Product) Amt 400 / 400 Rbc As-3 Leukoreduced Unit 400 / 400 [id number] Output: Urine 1400 / 1400 Other: # Voids 250 # Incontinent Voids 1 Date of Last Bowel Movement 05/22/18 05/22/18 # Incontinent Bowel Movements 1 1 Narrative: Alert and awake Abd: soft; LEFT upper quadrant incision---dressing removed and replaced--- incision with kamlesh--c/d/i Umbilical dressing in place Mild generalized edema - Urinary Catheter Management Indwelling Urethral Catheter Cath placed during this visit: yes Urethral indwelling: No Reason for continuing: Hourly intake/output Insertion date: 05/18/18 Results - Labs 05/30/18 10:00 05/30/18 10:00 Laboratory Results - last 24 hr 05/22/18 05/22/18 05/22/18 08:26 08:26 12:38 WBC 6.7 RBC 2.56 L Hgb 7.1 L Hct 22.0 L MCV 86.1 MCH 27.7 MCHC 32.2 RDW 16.3 Plt Count 241 MPV 9.0 Neut % (Auto) 64.5 Lymph % (Auto) 18.4 [place] % (Auto) 9.4 H Eos % (Auto) 6.8 H Baso % (Auto) 0.9 Neut # (Auto) 4.3 Lymph # (Auto) 1.2 [place] # (Auto) 0.6 Eos # (Auto) 0.5 H Baso # (Auto) 0.1 WBC Differential . Differential Comment Auto diff final Sodium 139 Potassium 4.1 Chloride 107 Carbon Dioxide 28.1 Anion Gap 4 L BUN 4 L Creatinine 0.47 L Estimated GFR Greater than 89 Random Glucose 176 H Calcium 7.2 L* Calcium Adj for Albumin 9.2 Albumin 1.5 L Blood Type A Positive Antibody Screen Negative MTS Gel Crossmatch See Detail 05/23/18 06:01 WBC 6.8 RBC 2.79 L Hgb 7.8 L Hct 23.4 L MCV 83.7 MCH 27.8 MCHC 33.2 RDW 15.7 Plt Count 282 MPV 8.2 Neut % (Auto) 62.9 Lymph % (Auto) 19.3 [place] % (Auto) 9.8 H Eos % (Auto) 6.9 H Baso % (Auto) 1.1 Neut # (Auto) 4.3 Lymph # (Auto) 1.3 [place] # (Auto) 0.7 Eos # (Auto) 0.5 H Baso # (Auto) 0.1 WBC Differential . Differential Comment Auto diff final Sodium Potassium Chloride Carbon Dioxide Anion Gap BUN Creatinine Estimated GFR Random Glucose Calcium Calcium Adj for Albumin Albumin Blood Type Antibody Screen MTS Gel Crossmatch - Imaging Imaging: ITS Impressions Chest X-Ray 05/19/18 00:00 CONCLUSION: Right lung base opacity is present may be due to a combination of consolidation and or pleural effusion. Worsening left lung base opacity most likely worsening pleural effusion and left lung base consolidation. Assessment and Plan - Assessment (1) Colonic mass Code(s): K63.9 - Disease of intestine, unspecified Status: Acute Plan: 67 year old male POD5 Laparoscopic assisted descending colectomy -Hmg stable -Advance to full liquids -Will need to monitor BP; this morning SBP 96 -PT eval -IS -Await pathology results -Discussed with LAMONTE Boyle at bedside Improved, but with questionable low BP this AM Coleman dressing with minimal drainage The exam, history, and the medical decision-making described in the above note were completed with the assistance of the mid-level provider. I reviewed and agree with the findings presented. I attest that I had a [id number] encounter with the patient on the same day, and personally performed and documented my assessment and findings in the medical record.
[2018-05-23] MEDS: Mupirocin 2% Nasal Oint Topical Syringe EACH NARE SCH ×2 (09:25→20:46)
[2018-05-23] MEDS: Heparin Central Flush 100 UNIT/ML 5 ML Vial IV.FLUSH SCH (09:28)
--- NOTE | 2018-05-23 10:34 | P.PN ---
Subjective Interval history: awake and alert tolerated current liquid diet had a good BM again this am complains of pain on the left side of the abdomen- kamlesh site- area examined- no induration, no surrounding redness, dry, kamlesh intact Physical Exam Vital signs: Vital Signs 05/22/18 11:00 05/22/18 11:03 05/22/18 12:00 Temperature Pulse Rate 68 69 69 Respiratory Rate 21 15 20 Blood Pressure 109/61 Pulse Oximetry 95 95 05/22/18 12:07 05/22/18 12:27 05/22/18 13:00 Temperature Pulse Rate 68 65 Respiratory Rate 24 Blood Pressure 114/63 117/62 Pulse Oximetry 99 100 05/22/18 14:00 05/22/18 14:03 05/22/18 15:00 Temperature Pulse Rate 75 75 69 Respiratory Rate 24 26 H 19 Blood Pressure 109/62 Pulse Oximetry 99 100 96 05/22/18 15:03 05/22/18 15:22 05/22/18 15:38 Temperature 97.9 F Pulse Rate 69 69 69 Respiratory Rate 20 21 22 Blood Pressure 111/60 111/60 112/59 L Pulse Oximetry 96 97 97 05/22/18 15:39 05/22/18 16:00 05/22/18 16:03 Temperature 97.9 F Pulse Rate 68 75 77 Respiratory Rate 16 22 34 H Blood Pressure 128/57 L Pulse Oximetry 97 95 98 05/22/18 18:01 05/22/18 20:00 05/22/18 23:51 Temperature 97.8 F 97.7 F 97.7 F Pulse Rate 72 76 75 Respiratory Rate 19 20 20 Blood Pressure 116/60 111/63 Pulse Oximetry 100 96 96 05/23/18 08:00 Temperature 97.8 F Pulse Rate 69 Respiratory Rate 17 Blood Pressure 96/52 L Pulse Oximetry 94 L Intake & Output 05/22/18 05/23/18 05/23/18 18:59 06:59 18:59 Intake Total 1880 / 1880 500 / 500 Output Total 1400 / 1400 Balance 480 / 480 500 / 500 Weight 108.4 kg Intake: IV 1000 / 1000 D5W/1/2NS + KCL 20 mEq Inj 1, 1000 / 1000 000 ML @ 75 mls/hr IV.CONT . [id number] [facility] Rx#:[id number] Oral 480 / 480 500 / 500 Intake (Blood Product) Amt 400 / 400 Rbc As-3 Leukoreduced Unit 400 / 400 [id number] Output: Urine 1400 / 1400 Other: # Voids 250 # Incontinent Voids 1 Date of Last Bowel Movement 05/22/18 05/22/18 # Incontinent Bowel Movements 1 1 Narrative: Alert and awake anicteric lungs- no rales regular rhtyhm Abd: soft; flabby, incisions- dry, no erytehma, kamlesh intact Umbilical dressing in place edema + LE - Urinary Catheter Management Indwelling Urethral Catheter Cath placed during this visit: yes Urethral indwelling: No Reason for continuing: Hourly intake/output Insertion date: 05/18/18 Results - Labs CBC & Chem 7: 05/23/18 06:01 05/22/18 08:26 Laboratory Results - last 24 hr 05/22/18 05/23/18 12:38 06:01 WBC 6.8 RBC 2.79 L Hgb 7.8 L Hct 23.4 L MCV 83.7 MCH 27.8 MCHC 33.2 RDW 15.7 Plt Count 282 MPV 8.2 Neut % (Auto) 62.9 Lymph % (Auto) 19.3 [place] % (Auto) 9.8 H Eos % (Auto) 6.9 H Baso % (Auto) 1.1 Neut # (Auto) 4.3 Lymph # (Auto) 1.3 [place] # (Auto) 0.7 Eos # (Auto) 0.5 H Baso # (Auto) 0.1 WBC Differential . Differential Comment Auto diff final Blood Type A Positive Antibody Screen Negative MTS Gel Crossmatch See Detail Microbiology 05/19/18 09:35 Blood - Peripheral Aerobic Blood Culture - Preliminary No growth in 3 days 05/19/18 09:35 Blood - Peripheral Anaerobic Blood Culture - Preliminary No growth in 3 days 05/19/18 09:40 Blood - Peripheral Aerobic Blood Culture - Preliminary No growth in 3 days 05/19/18 09:40 Blood - Peripheral Anaerobic Blood Culture - Preliminary No growth in 3 days Assessment and Plan - Assessment (1) Colonic mass Code(s): K63.9 - Disease of intestine, unspecified Status: Acute - Plan 67 year old male with complicated course since initial admission for complaint of abdominal pain, N/V. Found with positive trop, S/P cardiac cath with CAD. Required CABG. Also diagnosed with sepsis, acute cholecystitis. Initially treated with burt tube and underwent lap burt. Was discharged to [facility] on and developed GI bleed and required transfer back to main hospital. S/P colonoscopy with findings of circumferential mass, path showing tubulous villous adenoma. Patient is subsequently status post colon resection with colectomy. Recent GI bleed s/p colonoscopy-findings of circumferential mass near obstructive Status post colon resection and colectomy Path tubulous villous adenoma Acute anemia- dizzy when stood up -ordered for and getting 1 unit RBC today Path may not be reflective of entire mass. Unclear if malignant Follow pathology Oncology following General surgery following Follow CBC Follow BMP Hypotension-improved - S/p for 1 unit RBC 05/22 Recent NSTEMI s/p CABG x3 by Dr. Carlin no c/o chest pain Continue aspirin Continue amiodarone S/P lap cholecystectomy by Dr. Hall 04/24 for History of acute gangrenous cholecystitis Continue postop care for this Surgeons following roxann mei per GS0 advance to full liquids Atrial fibrillation- currently SR on telemetry Status post CABG Continue metoprolol, as tolerated Continue amiodarone Continue Cardizem, as tolerated Chronic CHF EF preserved, not decompensated EF 60-65%, trace to mild MR Continue LasixFollow volume status Diabetes mellitus type 2 Follow blood sugars Insulin sliding scale Diabetic diet Chronic DVT right IJ site conservative management Hyperlipidemia Continue present treatment Follow as an outpatient Continue atorvastatin Obesity hx of gastric bypass surgery Continue dietary changes once diet resumed Weight loss management Ultimately exercise recommended though not today DVT prophylaxis SCDs PT./OT daily- very motivated hoping for DC to [place] Progress Note: Quality VTE Deep Vein Thrombosis/Pulmonary Embolism Present on Admission: No
[2018-05-23] MEDS ORDERED: Iron Sucrose Inj 100 MG in Sodium Chlor 0.9% Inj 100 ML IV.SIG ONE (14:00)
[2018-05-23] MEDS: Ferrous Sulfate 325 MG Tablet PO SCH (16:39)
[2018-05-23] MEDS: Pantoprazole Inj 40 MG Vial IV.PUSH SCH (17:59)
[2018-05-23] MEDS: Enoxaparin Inj 40 MG/0.4 ML Syringe SQ SCH (18:02)
[2018-05-23] MEDS: KCL 20 mEq/D5W/NaCl 0.45% Inj 1,000 ML IV.CONT SCH ×2 (20:46→20:47)
[2018-05-24] MEDS: Ketorolac Inj 30 MG/ML (IVP) Vial IV.PUSH SCH ×4 (06:02→23:27)
[2018-05-24] MEDS: Chlorhexidine Gluconate 2% 1 Pack (2 Cloths) TOPICAL SCH (06:02)
--- NOTE | 2018-05-24 09:34 | P.PN ---
Subjective Interval history: no complains of abdominal pain or nausea had some breakfast - poor po + passing out lots of flatus Physical Exam Vital signs: Vital Signs 05/23/18 12:00 05/23/18 16:00 05/23/18 20:00 Temperature 98.1 F 98.4 F 97.2 F L Pulse Rate 76 89 71 Respiratory Rate 17 17 17 Blood Pressure 119/63 113/65 115/63 Pulse Oximetry 94 L 94 L 96 05/23/18 23:51 05/24/18 08:00 Temperature 98.2 F 97.5 F L Pulse Rate 67 69 Respiratory Rate 18 18 Blood Pressure 126/72 108/60 Pulse Oximetry 95 96 Intake & Output 05/23/18 05/24/18 05/24/18 18:59 06:59 18:59 Intake Total 3000 / 3000 105 / 105 Balance 3000 / 3000 105 / 105 Intake: IV 105 / 105 D5W/1/2NS + KCL 20 mEq Inj 1, 0 / 0 000 ML @ 75 mls/hr IV.CONT . [id number] [facility] Rx#:[id number] Venofer Inj 100 MG In NS Inj 105 / 105 100 ML @ 105 mls/hr IV.SIG ONCE ONE Rx#:[id number] Oral 3000 / 3000 Other: # Incontinent Voids 2 Date of Last Bowel Movement 05/23/18 05/22/18 # Incontinent Bowel Movements 1 Narrative: Alert and awake anicteric lungs- no rales regular rhtyhm Abd: soft; flabby, Umbilical - wound- packing in place , no erythema edema + LE - Urinary Catheter Management Indwelling Urethral Catheter Cath placed during this visit: yes Urethral indwelling: No Reason for continuing: Hourly intake/output Insertion date: 05/18/18 Results - Labs CBC & Chem 7: 05/25/18 07:00 05/25/18 05:55 Microbiology 05/19/18 09:35 Blood - Peripheral Aerobic Blood Culture - Preliminary No growth in 4 days 05/19/18 09:35 Blood - Peripheral Anaerobic Blood Culture - Preliminary No growth in 4 days 05/19/18 09:40 Blood - Peripheral Aerobic Blood Culture - Preliminary No growth in 4 days 05/19/18 09:40 Blood - Peripheral Anaerobic Blood Culture - Preliminary No growth in 4 days Assessment and Plan - Assessment (1) Colonic mass Code(s): K63.9 - Disease of intestine, unspecified Status: Acute - Plan 67 year old male with complicated course since initial admission for complaint of abdominal pain, N/V. Found with positive trop, S/P cardiac cath with CAD. Required CABG. Also diagnosed with sepsis, acute cholecystitis. Initially treated with burt tube and underwent lap burt. Was discharged to [facility] on and developed GI bleed and required transfer back to main hospital. S/P colonoscopy with findings of circumferential mass, path showing tubulous villous adenoma. Patient is subsequently status post colon resection with colectomy. Recent GI bleed s/p colonoscopy-findings of circumferential mass near obstructive Status post colon resection and colectomy Path tubulous villous adenoma Acute anemia- dizzy when stood up -ordered for and getting 1 unit RBC today Path may not be reflective of entire mass. Unclear if malignant Follow pathology Oncology following General surgery following Follow CBC Follow BMP Hypotension-improved - S/p for 1 unit RBC 05/22 Recent NSTEMI Atrial fibrillation- currently SR on telemetry s/p CABG x3 by Dr. Carlin no c/o chest pain Chronic CHF- + Leg edema Continue aspirin Continue amiodarone Continue metoprolol, as tolerated Continue amiodarone Continue Cardizem, as tolerated EF preserved, not decompensated EF 60-65%, trace to mild MR Continue Lasix Follow volume status - more leg swelling on exam today - heplock - give IV KLasix x 1 S/P lap cholecystectomy by Dr. Hall 04/24 for History of acute gangrenous cholecystitis Continue postop care for this Surgeons following advance diet per GS- Diabetes mellitus type 2 Follow blood sugars Insulin sliding scale Diabetic diet - review previously- on Metformin Chronic DVT right IJ site conservative management Hyperlipidemia Continue present treatment Follow as an outpatient Continue atorvastatin Obesity hx of gastric bypass surgery Continue dietary changes once diet resumed Weight loss management Ultimately exercise recommended though not today DVT prophylaxis SCDs PT./OT daily- very motivated hoping for PR to [place] Progress Note: Quality VTE Deep Vein Thrombosis/Pulmonary Embolism Present on Admission: No
[2018-05-24] MEDS: Heparin Central Flush 100 UNIT/ML 5 ML Vial IV.FLUSH SCH (10:34)
--- NOTE | 2018-05-24 11:39 | P.PNGS ---
Subjective Interval history: Resting in bed Concerned he is loosing strength Physical Exam Vital signs: Vital Signs 05/23/18 12:00 05/23/18 16:00 05/23/18 20:00 Temperature 98.1 F 98.4 F 97.2 F L Pulse Rate 76 89 71 Respiratory Rate 17 17 17 Blood Pressure 119/63 113/65 115/63 Pulse Oximetry 94 L 94 L 96 05/23/18 23:51 05/24/18 08:00 Temperature 98.2 F 97.5 F L Pulse Rate 67 69 Respiratory Rate 18 18 Blood Pressure 126/72 108/60 Pulse Oximetry 95 96 Intake & Output 05/23/18 05/24/18 05/24/18 18:59 06:59 18:59 Intake Total 3000 / 3000 105 / 105 Balance 3000 / 3000 105 / 105 Intake: IV 105 / 105 D5W/1/2NS + KCL 20 mEq Inj 1, 0 / 0 000 ML @ 75 mls/hr IV.CONT . [id number] THOMAS Rx#:[id number] Venofer Inj 100 MG In NS Inj 105 / 105 100 ML @ 105 mls/hr IV.SIG ONCE ONE Rx#:[id number] Oral 3000 / 3000 Other: # Incontinent Voids 2 Date of Last Bowel Movement 05/23/18 05/22/18 # Incontinent Bowel Movements 1 Narrative: Alert and awake Abd: soft; minimally tender; umbilicus dressing in place; LEFT upper incision c/ d/i with kamlesh - Urinary Catheter Management Indwelling Urethral Catheter Cath placed during this visit: yes Urethral indwelling: No Reason for continuing: Hourly intake/output Insertion date: 05/18/18 Results - Labs 05/30/18 10:00 05/30/18 10:00 - Imaging Imaging: ITS Impressions Chest X-Ray 05/19/18 00:00 CONCLUSION: Right lung base opacity is present may be due to a combination of consolidation and or pleural effusion. Worsening left lung base opacity most likely worsening pleural effusion and left lung base consolidation. Assessment and Plan - Assessment (1) Colonic mass Code(s): K63.9 - Disease of intestine, unspecified Status: Acute Plan: 67 year old male POD6 Laparoscopic assisted descending colectomy -Hmg stable; check labs tomorrow -Tolerating regular diet -PT eval -IS -Discussed pathology with patient; Dr. Rivera consulted -Hopefully DC to [facility] in the next 24-48 hours Wound clean and dry Likely no chemotherapy Needs to recover from surgery The exam, history, and the medical decision-making described in the above note were completed with the assistance of the mid-level provider. I reviewed and agree with the findings presented. I attest that I had a [id number] encounter with the patient on the same day, and personally performed and documented my assessment and findings in the medical record.
[2018-05-24] MEDS: Metoclopramide 10 MG Tablet PO SCH ×3 (12:49→23:26)
[2018-05-24] MEDS: Ferrous Sulfate 325 MG Tablet PO SCH ×2 (12:52→17:45)
[2018-05-25] MEDS: Ketorolac Inj 30 MG/ML (IVP) Vial IV.PUSH SCH ×4 (05:57→22:19)
[2018-05-25 06:37] LABS: Anion Gap 5 meq/L (5-15); Blood Urea Nitrogen 6 mg/dL (7-18); Calcium 7.4 mg/dL (8.5-10.1); Carbon Dioxide 28.4 meq/L (21.0-32.0); Chloride 109 meq/L (98-107); Glomerular Filtration Rate Greater Than 89 mL/min (>89); Glucose,Random 96 mg/dL (74-106); Potassium 3.9 meq/L (3.5-5.1); Sodium 142 meq/L (136-145)
[2018-05-25 06:43] LABS: Albumin 1.3 g/dL (3.4-5.0); Calcium-Albumin Corrected 9.6 mg/dL (8.5-10.1)
[2018-05-25 07:26] LABS: Baso # (Auto) 0.1 th/mm3 (0.0-0.2); Baso % (Auto) 1.1 % (0.0-2.0); Eos # (Auto) 0.6 th/mm3 (0.0-0.4); Eos % (Auto) 8.7 % (0.0-4.0); Hematocrit 24.8 % (39.0-51.0); Lymph # (Auto) 1.4 th/mm3 (1.0-4.8); Mean Corpuscular HGB Conc 32.2 % (32.0-36.0); Mean Corpuscular Hemoglobin 27.3 pg (27.0-34.0); Mean Platelet Volume 8.2 fL (7.0-11.0); Mono # (Auto) 0.8 th/mm3 (0.0-0.9); Mono % (Auto) 10.9 % (0.0-8.0); Neut # (Auto) 4.2 th/mm3 (1.8-7.7); Neut % (Auto) 59.3 % (16.0-70.0); Platelet Count 284 th/mm3 (150-450); Red Blood Count 2.92 mil/mm3 (4.50-5.90); Red Cell Distribution Width 16.3 % (11.6-17.2)
--- NOTE | 2018-05-25 09:35 | MB ---
cc: Eric Rivera MD DATE: 05/24/2018 REASON FOR CONSULTATION: Adenocarcinoma of the colon and recommendations regarding further management. PATIENT PROFILE: The patient is a 67-year-old white male. He is single. He was never . He lives alone, but requires help from a niece and uncle. He has had significant illness and in addition, has limited economic resources and requires support. He is retired or unable to work. At some point, he was involved in tree management. He stopped smoking 10 years ago and before that had smoked cigars. Alcohol intake is minimal. HISTORY OF PRESENT ILLNESS: The patient is a 67-year-old male with diabetes, morbid obesity and vascular disease, who presented to the emergency room on 03/19/2018 with abdominal pain. He was found to have sepsis with Klebsiella and Escherichia coli, as well as acute cholecystitis. He had a cholecystectomy performed. He had a CAT scan of the abdomen and pelvis done as part of his workup and was found to have thickening in the distal descending colon. He had a colonoscopy on 05/10/2018 showing a circumferential mass in the proximal sigmoid and descending colon. The scope could not be passed through the lesion. The patient underwent surgery on 05/18/2018, performed by Dr. Hall. The procedure was a scope with takedown of splenic flexure of colon, resection of segment of small bowel with primary anastomosis and descending colon resection with primary anastomosis. 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 No macroscopic tumor perforation. Histologic type mucinous adenocarcinoma, grade I, well differentiated. All margins were uninvolved. No lymphovascular or perineural invasion, 9 lymph nodes were negative. The final pathologic stage was T3 N0. The patient is making an excellent recovery. He feels much better. Prior to surgery, he was having abdominal pain. His studies, which have included a CT scan of the abdomen and pelvis as well as a CTA of the lung have shown no evidence of metastatic disease. PAST SURGICAL HISTORY: 1. Current surgery consisting of removal of segment of small bowel and descending colon on 05/18/2018 revealing pathologic T3 N0 well-differentiated adenocarcinoma of the colon. 2. Gastric bypass surgery for morbid obesity many years ago. 3. Coronary artery bypass surgery grafting in 03/2018. 4. Cholecystectomy for acute necrotizing cholecystitis. PAST MEDICAL HISTORY: 1. Diabetes. 2. Coronary artery disease with bypass surgery. 3. Anemia secondary to GI bleeding. 4. History of atrial fibrillation. 5. Generalized debilitation. CURRENT MEDICATIONS: 1. Hydrocodone/acetaminophen. 2. Entereg 12 mg p.o. b.i.d. 3. Iron sulfate. 4. Tramadol. 5. Reglan. 6. Protonix. ALLERGIES: NO KNOWN ALLERGIES. FAMILY HISTORY: Unremarkable. Of note, he has taken multiple other medications at different times including amiodarone, aspirin, Lipitor, B12, Cardizem, Glucophage. REVIEW OF SYSTEMS: Notable for recent abdominal pain, weakness, fatigue, progressive debilitation. PHYSICAL EXAMINATION: GENERAL: Reveals a gentleman who appears comfortable. He is obese. VITAL SIGNS: Respiratory rate is 18, pulse 80, afebrile, blood pressure 110/60. HEENT: Head is normocephalic. Sclerae and conjunctivae are normal. NECK: No adenopathy. HEART: Regular rate and rhythm. LUNGS: Clear. ABDOMEN: Obese. No hepatosplenomegaly. EXTREMITIES: +1 edema. MUSCULOSKELETAL: Muscle wasting. NEUROLOGIC: No focal weakness. SKIN: The patient has a scar in left side of the abdomen from his recent surgery. ASSESSMENT: The patient is a 67-year-old male. He has a pathologic T3 N0 M0 adenocarcinoma of the colon grade I, which has been resected. Resection is an R0. RECOMMENDATIONS: 1. He does not require adjuvant chemotherapy as the lymph nodes are negative. 2. He has multiple comorbidities and is not a good candidate for any type of chemotherapy, which fortunately he does not require. 3. The situation was discussed with him. I will see him in several months' time for routine followup. This is a frail individual who has barely survived his hospitalization and fortunately the likelihood of developing metastatic disease in the future is not large given the negative nodes and the fact that the tumor is well differentiated. MD JUAN Tucker/iain/carolee , 08:30 PM , 08:45 PM MELO
[2018-05-25] MEDS: Metoclopramide 10 MG Tablet PO SCH ×4 (09:49→22:18)
[2018-05-25] MEDS: Heparin Central Flush 100 UNIT/ML 5 ML Vial IV.FLUSH SCH (09:57)
--- NOTE | 2018-05-25 10:18 | P.PN ---
Subjective Interval history: no complains appetitie- improving no abdominal pain, nausea or vomiting looking forward to going to [facility] Physical Exam Vital signs: Vital Signs 05/24/18 12:00 05/24/18 15:43 05/24/18 20:00 Temperature 97.5 F L 98.2 F 97.7 F Pulse Rate 76 70 76 Respiratory Rate 18 18 18 Blood Pressure 137/70 111/64 115/68 Pulse Oximetry 96 96 98 05/25/18 00:00 05/25/18 08:00 Temperature 97.9 F 98.1 F Pulse Rate 71 74 Respiratory Rate 19 17 Blood Pressure 131/62 109/62 Pulse Oximetry 95 97 Intake & Output 05/24/18 05/25/18 05/25/18 18:59 06:59 18:59 Intake Total 1200 / 1200 900 / 900 Balance 1200 / 1200 900 / 900 Weight 108.4 kg Intake: Oral 1200 / 1200 900 / 900 Other: # Incontinent Voids 4 6 # Incontinent Bowel Movements 1 1 Narrative: Alert and awake anicteric lungs- no rales regular rhythm Abd: soft; flabby, kamlesh in place- incision- dry, no erythema Umbilical - wound- packing in place , no erythema edema + LE - Urinary Catheter Management Indwelling Urethral Catheter Cath placed during this visit: yes, but has since been removed by the nurse Urethral indwelling: No Reason for continuing: Hourly intake/output Insertion date: 05/18/18 Removal date: 05/23/18 Results - Labs CBC & Chem 7: 05/25/18 07:00 05/25/18 05:55 Laboratory Results - last 24 hr 05/25/18 05/25/18 05:55 07:00 WBC 7.0 RBC 2.92 L Hgb 8.0 L Hct 24.8 L MCV 85.0 MCH 27.3 MCHC 32.2 RDW 16.3 Plt Count 284 MPV 8.2 Neut % (Auto) 59.3 Lymph % (Auto) 20.0 [place] % (Auto) 10.9 H Eos % (Auto) 8.7 H Baso % (Auto) 1.1 Neut # (Auto) 4.2 Lymph # (Auto) 1.4 [place] # (Auto) 0.8 Eos # (Auto) 0.6 H Baso # (Auto) 0.1 WBC Differential . Differential Comment Auto diff final Sodium 142 Potassium 3.9 Chloride 109 H Carbon Dioxide 28.4 Anion Gap 5 BUN 6 L Creatinine 0.53 L Estimated GFR Greater than 89 Random Glucose 96 Calcium 7.4 L* Calcium Adj for Albumin 9.6 Albumin 1.3 L Microbiology 05/19/18 09:35 Blood - Peripheral Aerobic Blood Culture - Final No growth in 5 days 05/19/18 09:35 Blood - Peripheral Anaerobic Blood Culture - Final No growth in 5 days 05/19/18 09:40 Blood - Peripheral Aerobic Blood Culture - Final No growth in 5 days 05/19/18 09:40 Blood - Peripheral Anaerobic Blood Culture - Final No growth in 5 days Assessment and Plan - Assessment (1) Colonic mass Code(s): K63.9 - Disease of intestine, unspecified Status: Acute - Plan 67 year old male with complicated course since initial admission for complaint of abdominal pain, N/V. Found with positive trop, S/P cardiac cath with CAD. Required CABG. Also diagnosed with sepsis, acute cholecystitis. Initially treated with burt tube and underwent lap burt. Was discharged to [facility] on and developed GI bleed and required transfer back to [facility]. S/P colonoscopy with findings of circumferential mass, path showing tubulous villous adenoma. Patient is subsequently status post colon resection with colectomy. 67 year old male S/P Laparoscopic assisted descending colectomy 05/18 s/p colonoscopy-findings of circumferential mass near obstructive Status post colon resection and colectomy Path - Invasive well differentiated adnocarcinomal on patholgy Acute anemia- 1 unit RBC 05/22 S/P lap cholecystectomy by Dr. Hall 04/24 for History of acute gangrenous cholecystitis advance diet per GS- Oncology following- OP ff up General surgery following Hypotension-improved - S/p for 1 unit RBC 05/22 CAD, Recent NSTEMI New onset Atrial fibrillation- previous admission=- at [place] - currently SR on telemetry s/p CABG x3 by Dr. Carlin no c/o chest pain Chronic CHF- + Leg edema Continue aspirin 91 mg daily - was on Amiodarone. Lorpessor and Cardizem oprevious ly at [place] - will not restart Amiodarone (plan was to wean him off this anyway) and Cardizem - restart Lopressor low dose for now bid EF preserved, not decompensated EF 60-65%, trace to mild MR DM type 2 Follow blood sugars- good readings Insulin sliding scale Diabetic diet - review last admission- was on Metformin- will continue to monitor and restart eventually as appetitie improves Chronic DVT right IJ site conservative management Hyperlipidemia Continue present treatment Follow as an outpatient Continue atorvastatin 20 mg hs Obesity hx of gastric bypass surgery Continue dietary changes once diet resumed Weight loss management Ultimately exercise recommended though not today DVT prophylaxis SCDs PT./OT daily- very motivated hoping for DC to [place] if cleared with [facility]
[2018-05-25] MEDS: Ferrous Sulfate 325 MG Tablet PO SCH ×2 (12:29→17:32)
--- NOTE | 2018-05-25 12:45 | P.PNGS ---
Subjective Interval history: Resting in bed No issues overnight Feeling much stronger today Physical Exam Vital signs: Vital Signs 05/24/18 15:43 05/24/18 20:00 05/25/18 00:00 Temperature 98.2 F 97.7 F 97.9 F Pulse Rate 70 76 71 Respiratory Rate 18 18 19 Blood Pressure 111/64 115/68 131/62 Pulse Oximetry 96 98 95 05/25/18 08:00 Temperature 98.1 F Pulse Rate 74 Respiratory Rate 17 Blood Pressure 109/62 Pulse Oximetry 97 Intake & Output 05/24/18 05/25/18 05/25/18 18:59 06:59 18:59 Intake Total 1200 / 1200 900 / 900 Balance 1200 / 1200 900 / 900 Weight 108.4 kg Intake: Oral 1200 / 1200 900 / 900 Other: # Incontinent Voids 4 6 # Incontinent Bowel Movements 1 1 Narrative: Alert and awake; up to chair Abd: soft; non tender; incision sites c/d/i - Urinary Catheter Management Indwelling Urethral Catheter Cath placed during this visit: yes Urethral indwelling: No Reason for continuing: Hourly intake/output Insertion date: 05/18/18 Results - Labs 05/30/18 10:00 05/30/18 10:00 Laboratory Results - last 24 hr 05/25/18 05/25/18 05:55 07:00 WBC 7.0 RBC 2.92 L Hgb 8.0 L Hct 24.8 L MCV 85.0 MCH 27.3 MCHC 32.2 RDW 16.3 Plt Count 284 MPV 8.2 Neut % (Auto) 59.3 Lymph % (Auto) 20.0 [place] % (Auto) 10.9 H Eos % (Auto) 8.7 H Baso % (Auto) 1.1 Neut # (Auto) 4.2 Lymph # (Auto) 1.4 [place] # (Auto) 0.8 Eos # (Auto) 0.6 H Baso # (Auto) 0.1 WBC Differential . Differential Comment Auto diff final Sodium 142 Potassium 3.9 Chloride 109 H Carbon Dioxide 28.4 Anion Gap 5 BUN 6 L Creatinine 0.53 L Estimated GFR Greater than 89 Random Glucose 96 Calcium 7.4 L* Calcium Adj for Albumin 9.6 Albumin 1.3 L - Imaging Imaging: ITS Impressions Chest X-Ray 05/19/18 00:00 CONCLUSION: Right lung base opacity is present may be due to a combination of consolidation and or pleural effusion. Worsening left lung base opacity most likely worsening pleural effusion and left lung base consolidation. Assessment and Plan - Assessment (1) Colonic mass Code(s): K63.9 - Disease of intestine, unspecified Status: Acute Plan: 67 year old male POD6 Laparoscopic assisted descending colectomy -Hmg stable today -Tolerating regular diet -PT eval -IS -Discussed pathology with patient -DC to [facility] once insurance approved Wound clean Tolerating diet Still appears pale, but Hb stable The exam, history, and the medical decision-making described in the above note were completed with the assistance of the mid-level provider. I reviewed and agree with the findings presented. I attest that I had a [id number] encounter with the patient on the same day, and personally performed and documented my assessment and findings in the medical record.
[2018-05-26] MEDS: Ketorolac Inj 30 MG/ML (IVP) Vial IV.PUSH SCH (05:10)
[2018-05-26] MEDS: Heparin Central Flush 100 UNIT/ML 5 ML Vial IV.FLUSH SCH (08:31)
[2018-05-26] MEDS: Metoclopramide 10 MG Tablet PO SCH ×4 (08:31→22:16)
[2018-05-26] MEDS: Ferrous Sulfate 325 MG Tablet PO SCH ×2 (11:20→17:19)
--- NOTE | 2018-05-26 12:32 | P.PN ---
Subjective Interval history: awake and alert no nausea toelating po - states appetite better + flatus Physical Exam Vital signs: Vital Signs 05/25/18 16:00 05/25/18 20:00 05/26/18 00:00 Temperature 97.7 F 98.1 F 98.6 F Pulse Rate 73 80 75 Respiratory Rate 17 17 17 Blood Pressure 127/62 141/71 H 117/58 L Pulse Oximetry 98 95 94 L 05/26/18 08:00 Temperature 98.2 F Pulse Rate 78 Respiratory Rate 17 Blood Pressure 111/68 Pulse Oximetry 95 Intake & Output 05/25/18 05/26/18 05/26/18 18:59 06:59 18:59 Intake Total 790 / 790 480 / 480 Balance 790 / 790 480 / 480 Weight 108 kg Intake: Oral 790 / 790 480 / 480 Other: # Voids 3 # Urine Diapers 2 Date of Last Bowel Movement 05/24/18 # Bowel Movements 1 1 Narrative: Alert and awake anicteric lungs- no rales regular rhythm Abd: soft; flabby, kamlesh in place- incision- dry, no erythema Umbilical - wound- packing in place , no erythema edema + LE - Urinary Catheter Management Indwelling Urethral Catheter Cath placed during this visit: yes, but has since been removed by the nurse Urethral indwelling: No Reason for continuing: Hourly intake/output Insertion date: 05/18/18 Insertion time: 07:00 Removal date: 05/23/18 Results - Labs CBC & Chem 7: 05/25/18 07:00 05/25/18 05:55 Assessment and Plan - Assessment (1) Colonic mass Code(s): K63.9 - Disease of intestine, unspecified Status: Acute - Plan 67 year old male with complicated course since initial admission for complaint of abdominal pain, N/V. Found with positive trop, S/P cardiac cath with CAD. Required CABG. Also diagnosed with sepsis, acute cholecystitis. Initially treated with burt tube and underwent lap burt. Was discharged to [facility] on and developed GI bleed and required transfer back to main hospital. S/P colonoscopy with findings of circumferential mass, path showing tubulous villous adenoma. Patient is subsequently status post colon resection with colectomy. 67 year old male S/P Laparoscopic assisted descending colectomy 05/18 s/p colonoscopy-findings of circumferential mass near obstructive Status post colon resection and colectomy Path - Invasive well differentiated adnocarcinomal on patholgy Acute anemia- 1 unit RBC 05/22 S/P lap cholecystectomy by Dr. Hall 04/24 for History of acute gangrenous cholecystitis advance diet per - Oncology following- OP ff up General surgery following Hypotension-improved - S/p for 1 unit RBC 05/22 CAD, Recent NSTEMI New onset Atrial fibrillation- previous admission=- at [place] - currently SR on telemetry s/p CABG x3 by Dr. Carlin no c/o chest pain Chronic CHF- + Leg edema Continue aspirin 91 mg daily - was on Amiodarone. Lorpessor and Cardizem oprevious ly at [place] - will not restart Amiodarone (plan was to wean him off this anyway) and Cardizem - restart Lopressor low dose for now bid- Lopressor 11/07 m,g po bid EF preserved, not decompensated EF 60-65%, trace to mild MR DM type 2 Follow blood sugars- good readings Insulin sliding scale change to Diabetic diet- d/w him - review last admission- was on Metformin- will continue to monitor and restart eventually as appetitie improves Chronic DVT right IJ site conservative management Hyperlipidemia Continue present treatment Follow as an outpatient Continue atorvastatin 20 mg hs Obesity hx of gastric bypass surgery Continue dietary changes once diet resumed Weight loss management Ultimately exercise recommended though not today DVT prophylaxis SCDs PT./OT daily- very motivated hoping for DC to [place]- awaiting authorization if cleared with [facility]
--- NOTE | 2018-05-26 16:39 | P.PNGS ---
Subjective Interval history: Awaiting bed at [place] Physical Exam Vital signs: Vital Signs 05/25/18 20:00 05/26/18 00:00 05/26/18 08:00 Temperature 98.1 F 98.6 F 98.2 F Pulse Rate 80 75 78 Respiratory Rate 17 17 17 Blood Pressure 141/71 H 117/58 L 111/68 Pulse Oximetry 95 94 L 95 05/26/18 12:00 Temperature 97.8 F Pulse Rate 70 Respiratory Rate 15 Blood Pressure 103/59 L Pulse Oximetry 94 L Intake & Output 05/25/18 05/26/18 05/26/18 18:59 06:59 18:59 Intake Total 790 / 790 480 / 480 Balance 790 / 790 480 / 480 Weight 108 kg Intake: Oral 790 / 790 480 / 480 Other: # Voids 3 # Urine Diapers 2 Date of Last Bowel Movement 05/24/18 05/26/18 # Bowel Movements 1 1 Narrative: Alert and awake Abd: soft; non tender; umbilical dressing in place; left sided incision c/d/i with kamlesh - Urinary Catheter Management Indwelling Urethral Catheter Cath placed during this visit: yes Urethral indwelling: No Reason for continuing: Hourly intake/output Insertion date: 05/18/18 Insertion time: 07:00 Results - Labs 05/30/18 10:00 05/30/18 10:00 - Imaging Imaging: ITS Impressions Chest X-Ray 05/19/18 00:00 CONCLUSION: Right lung base opacity is present may be due to a combination of consolidation and or pleural effusion. Worsening left lung base opacity most likely worsening pleural effusion and left lung base consolidation. Assessment and Plan - Assessment (1) Colonic mass Code(s): K63.9 - Disease of intestine, unspecified Status: Acute Plan: 67 year old male POD7 Laparoscopic assisted descending colectomy -Tolerating regular diet -PT eval -IS -DC to [place] once insurance approved and bed available Wound ok Tolerating diet Hb stable continue iron supplementation The exam, history, and the medical decision-making described in the above note were completed with the assistance of the mid-level provider. I reviewed and agree with the findings presented. I attest that I had a [id number] encounter with the patient on the same day, and personally performed and documented my assessment and findings in the medical record.
[2018-05-27] MEDS: Heparin Central Flush 100 UNIT/ML 5 ML Vial IV.FLUSH SCH (08:48)
[2018-05-27] MEDS: Metoclopramide 10 MG Tablet PO SCH ×4 (09:00→21:06)
--- NOTE | 2018-05-27 11:32 | P.PN ---
Subjective Interval history: doing great po intake fair voiding well + flatus Physical Exam Vital signs: Vital Signs 05/26/18 12:00 05/26/18 16:00 05/26/18 20:00 Temperature 97.8 F 98.1 F 98.8 F Pulse Rate 70 71 71 Respiratory Rate 15 16 20 Blood Pressure 103/59 L 127/69 115/61 Pulse Oximetry 94 L 98 95 05/27/18 00:00 05/27/18 08:00 Temperature 98.5 F 98.2 F Pulse Rate 75 82 Respiratory Rate 17 16 Blood Pressure 108/73 105/57 L Pulse Oximetry 96 98 Intake & Output 05/26/18 05/27/18 05/27/18 18:59 06:59 18:59 Intake Total 120 / 120 580 / 580 Output Total 2 / 2 Balance 118 / 118 580 / 580 Weight 108 kg Intake: Oral 120 / 120 580 / 580 Output: Urine 2 / 2 Other: # Voids 3 Date of Last Bowel Movement 05/26/18 05/26/18 Narrative: Alert and awake anicteric lungs- no rales regular rhythm Abd: soft; flabby, kamlesh in place- incision- dry, no erythema Umbilical - wound- packing in place , no erythema edema trace edema - Urinary Catheter Management Indwelling Urethral Catheter Cath placed during this visit: yes, but has since been removed by the nurse Urethral indwelling: No Reason for continuing: Hourly intake/output Insertion date: 05/18/18 Insertion time: 07:00 Removal date: 05/23/18 Results - Labs CBC & Chem 7: 05/25/18 07:00 05/25/18 05:55 Assessment and Plan - Assessment (1) Colonic mass Code(s): K63.9 - Disease of intestine, unspecified Status: Acute - Plan 67 year old male with complicated course since initial admission for complaint of abdominal pain, N/V. Found with positive trop, S/P cardiac cath with CAD. Required CABG. Also diagnosed with sepsis, acute cholecystitis. Initially treated with burt tube and underwent lap burt. Was discharged to [facility] on and developed GI bleed and required transfer back to [facility]. S/P colonoscopy with findings of circumferential mass, path showing tubulous villous adenoma. Patient is subsequently status post colon resection with colectomy. 67 year old male S/P Laparoscopic assisted descending colectomy 05/18 s/p colonoscopy-findings of circumferential mass near obstructive Status post colon resection and colectomy Path - Invasive well differentiated adnocarcinomal on patholgy Acute anemia- 1 unit RBC 05/22 S/P lap cholecystectomy by Dr. Hall 04/24 for History of acute gangrenous cholecystitis advance diet per - Oncology following- OP ff up General surgery following Hypotension-improved - S/p for 1 unit RBC 05/22 CAD, Recent NSTEMI New onset Atrial fibrillation- previous admission=- at [place] - currently SR on telemetry s/p CABG x3 by Dr. Carlin no c/o chest pain Chronic CHF- + Leg edema Continue aspirin 91 mg daily - was on Amiodarone. Lorpessor and Cardizem oprevious ly at [place] - will not restart Amiodarone (plan was to wean him off this anyway) and Cardizem - restart Lopressor low dose for now bid EF preserved, not decompensated EF 60-65%, trace to mild MR DM type 2 Follow blood sugars- good readings Insulin sliding scale Diabetic diet - review last admission- was on Metformin- will continue to monitor and restart eventually as appetitie improves Chronic DVT right IJ site conservative management Hyperlipidemia Continue present treatment Follow as an outpatient Continue atorvastatin 20 mg hs Obesity hx of gastric bypass surgery Continue dietary changes once diet resumed Weight loss management Ultimately exercise recommended though not today DVT prophylaxis SCDs PT./OT daily- very motivated hoping for DC to [place]- acce[jacqueline by [facility] - waiting for authroization if cleared with
[2018-05-27] MEDS: Ferrous Sulfate 325 MG Tablet PO SCH ×2 (13:10→18:01)
[2018-05-27] MEDS ORDERED: Metoprolol Tartrate 25 MG Tablet PO SCH (21:00)
[2018-05-27] MEDS: Metoprolol Tartrate 25 MG Tablet PO SCH (21:09)
[2018-05-28] MEDS: Heparin Central Flush 100 UNIT/ML 5 ML Vial IV.FLUSH SCH (09:34)
[2018-05-28] MEDS: Metoclopramide 10 MG Tablet PO SCH ×4 (09:55→21:02)
[2018-05-28] MEDS: Metoprolol Tartrate 25 MG Tablet PO SCH ×2 (09:55→20:56)
--- NOTE | 2018-05-28 12:14 | P.DIET ---
Nutritional Evaluation Type of nutrition evaluation: initial Nutrition consult regarding: Diet Evaluation Nutrition screening: Poor PO Intake Screening comments: 05/27/18 MDC for Poor PO intake (supplement) Objective - Diagnosis descending colon resection - Objective Body Mass Index: 35.7 % IBW: 161 (IBW = 148lb) Body Weight Used for Calculations: IBW Energy Needs - Lower Range (kCal/kg): 28 Energy Needs - Upper Range (kCal/kg): 32 Lower Limit kCal/kg (kCals): 1,876 Upper Limit kCal/kg (kCals): 2,144 Lower Limit Protein Factor (Grams per Kg): 1.2 Upper Limit Protein Factor (Grams per Kg): 1.4 Lower Protein Needs (Protein): 80 Upper Protein Needs (Protein): 94 Dietitian Reviewed in Medical Record: Current diet, Curent medications, Intake & Output, Labs, Medical history Diet Order: 1800 ADA, soft Oral Diet Intake Amount: Excellent 90%+ Objective Comments: PMH: Afib, DM, GERD, hypercholesteremia, s/p CABG x3, h/o gastric bypass Labs: Ca+ 7.4 LBM 05/26/18 Assessment Assessment: Pt currently at nutritional risk r/t diagnosis and reported poor PO intake. Pt currently on 1800 DM ADA diet w/ soft consistency and conseming around 75-100% of most meals provided. RD agree w/ 1800 ADA diet. Supplement was requested by . RD to recommend Ensure Enlive BID as PO supplement for additional nutrition. Continue to monitor PO and supplement intake. Labs reviewed, dietitian following. Recommendations: 1. RD agree w/ [address] to recommend Ensure Enlive BID as PO supplement for additional nutrition 3. Continue to monitor PO and supplement intake 4. Dietitian following Dietitian to Monitor: Lab values, Glucose level, Supplement acceptance, Intake & Output, Diet tolerance, Weight change, PO Intake, Medical course
[2018-05-28] MEDS: Ferrous Sulfate 325 MG Tablet PO SCH ×2 (12:39→18:18)
--- NOTE | 2018-05-28 14:35 | P.PN ---
Subjective Interval history: good po motivateed with physical therapy now main complain is constipation - had a "small one" but hard Physical Exam Vital signs: Vital Signs 05/27/18 16:00 05/27/18 20:00 05/28/18 00:00 Temperature 97.8 F 98 F 98.3 F Pulse Rate 78 72 65 Respiratory Rate 16 18 18 Blood Pressure 140/75 119/64 123/63 Pulse Oximetry 99 94 L 94 L 05/28/18 04:00 05/28/18 08:00 05/28/18 12:00 Temperature 97.6 F 97.5 F L 98 F Pulse Rate 66 74 68 Respiratory Rate 20 17 16 Blood Pressure 118/65 118/74 117/83 Pulse Oximetry 93 L 94 L 97 Intake & Output 05/27/18 05/28/18 05/28/18 18:59 06:59 18:59 Intake Total 140 / 140 720 / 720 Balance 140 / 140 720 / 720 Weight 103.4 kg Intake: Oral 140 / 140 720 / 720 Other: # Voids 3 Date of Last Bowel Movement 05/27/18 05/28/18 # Bowel Movements 1 Narrative: Alert and awake anicteric lungs- no rales regular rhythm Abd: soft; flabby, kamlesh in place- incision-- dresing in place Umbilical - wound- packing in place , no erythema edema trace edema - Urinary Catheter Management Indwelling Urethral Catheter Cath placed during this visit: yes, but has since been removed by the nurse Urethral indwelling: No Reason for continuing: Hourly intake/output Insertion date: 05/18/18 Insertion time: 07:00 Removal date: 05/23/18 Results - Labs CBC & Chem 7: 05/25/18 07:00 05/25/18 05:55 Assessment and Plan - Assessment (1) Colonic mass Code(s): K63.9 - Disease of intestine, unspecified Status: Acute - Plan 67 year old male with complicated course since initial admission for complaint of abdominal pain, N/V. Found with positive trop, S/P cardiac cath with CAD. Required CABG. Also diagnosed with sepsis, acute cholecystitis. Initially treated with burt tube and underwent lap burt. Was discharged to [facility] on and developed GI bleed and required transfer back to [facility]. S/P colonoscopy with findings of circumferential mass, path showing tubulous villous adenoma. Patient is subsequently status post colon resection with colectomy. 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 Hall 04/24 for History of acute gangrenous cholecystitis advance diet per - Oncology following- OP ff up General surgery following Constipation - on po pain meds - give Colace 100 mg po bid - Miralax 17 gm po x 1 now Hypotension-improved - S/p for 1 unit RBC 05/22 CAD, Recent NSTEMI New onset Atrial fibrillation- previous admission=- at [facility] - currently SR on telemetry s/p CABG x3 by Dr. Carlin no c/o chest pain Chronic CHF- + Leg edema Continue aspirin 91 mg daily - was on Amiodarone. Lorpessor and Cardizem oprevious ly at [facility] - will not restart Amiodarone (plan was to wean him off this anyway) and Cardizem - Lopressor m3.125 mg po bid- increase as BP toelrates EF preserved, not decompensated EF 60-65%, trace to mild MR DM type 2 Follow blood sugars- good readings Insulin sliding scale Diabetic diet - review last admission- was on Metformin- - restart Metformin 500 mg po daily- po appetite improved Chronic DVT right IJ site conservative management Hyperlipidemia Continue present treatment Follow as an outpatient Continue atorvastatin 20 mg hs Obesity hx of gastric bypass surgery Continue dietary changes once diet resumed Weight loss management Ultimately exercise recommended though not today DVT prophylaxis SCDs PT./OT daily- very motivated hoping for DC to [facility]- acce[jacqueline by [facility] - waiting for authroization if cleared with
[2018-05-28] MEDS ORDERED: Polyethylene Glycol 3350 17 GM Packet PO ONE (14:36)
[2018-05-28] MEDS: Senna/Docusate Sodium 8.6/50 MG Tablet PO SCH ×2 (15:22→20:55)
[2018-05-29] MEDS: Senna/Docusate Sodium 8.6/50 MG Tablet PO SCH ×2 (09:04→20:03)
[2018-05-29] MEDS: Metoprolol Tartrate 25 MG Tablet PO SCH ×2 (09:05→20:03)
[2018-05-29] MEDS: Metoclopramide 10 MG Tablet PO SCH ×4 (09:06→20:03)
[2018-05-29] MEDS: Heparin Central Flush 100 UNIT/ML 5 ML Vial IV.FLUSH SCH (09:06)
--- NOTE | 2018-05-29 10:31 | P.PNIM ---
Subjective Interval history: Follow-up visit laparoscopic assisted descending colectomy, acute anemia, hypotension Patient is sitting up in a recliner chair in his room. He is tolerating his diet. Denies nausea or vomiting. Reports abdominal pain at left lower quadrant abdominal incision site. No cough, fevers or chills. States he is having to use the bathroom and requesting assistance. Physical Exam Vital signs: Vital Signs 05/28/18 12:00 05/28/18 16:00 05/28/18 20:00 Temperature 98 F 97.9 F 98.3 F Pulse Rate 68 68 76 Respiratory Rate 16 16 16 Blood Pressure 117/83 134/56 L 115/59 L Pulse Oximetry 97 94 L 94 L 05/29/18 00:00 05/29/18 08:00 Temperature 98 F 98.6 F Pulse Rate 70 82 Respiratory Rate 18 17 Blood Pressure 113/66 118/69 Pulse Oximetry 95 94 L Intake & Output 05/28/18 05/29/18 05/29/18 18:59 06:59 18:59 Intake Total 220 / 220 720 / 720 Balance 220 / 220 720 / 720 Weight 103.4 kg Intake: Oral 220 / 220 720 / 720 Other: # Voids 3 # Urine Diapers 4 Date of Last Bowel Movement 05/28/18 05/28/18 # Bowel Movements 2 Narrative: GENERAL: well developed, well nourished, no acute distress SKIN: Warm and dry HEAD: Normocephalic, atraumatic EYES: No scleral icterus. No injection or drainage. NECK: Supple, trachea midline. No JVD or lymphadenopathy. CARDIOVASCULAR: Regular rate and rhythm without murmurs, gallops, or rubs. RESPIRATORY: Breath sounds equal bilaterally. No accessory muscle use. GASTROINTESTINAL: Abdomen soft, non-tender, nondistended. LLQ abdominal incision site with kamlesh. Dressing with moderate drainage. Umbilical wound/ packing in place. MUSCULOSKELETAL: No cyanosis, or edema. Urinary Catheter Management Indwelling Urethral Catheter: Cath placed during this visit: yes, but has since been removed by the nurse Urethral indwelling: No Reason for continuing: Hourly intake/output Insertion date: 05/18/18 Insertion time: 07:00 Removal date: 05/23/18 Results Labs CBC & Chem 7: 05/25/18 07:00 05/25/18 05:55 Assessment and Plan (1) Colonic mass: Code(s): K63.9 - Disease of intestine, unspecified Status: Acute Plan 67 year old male with complicated course since initial admission for complaint of abdominal pain, N/V. Found with positive trop, S/P cardiac cath with CAD. Required CABG. Also diagnosed with sepsis, acute cholecystitis. Initially treated with burt tube and underwent lap burt. Was discharged to [facility] on and developed GI bleed and required transfer back to main hospital. S/P colonoscopy with findings of circumferential mass, path showing tubulous villous adenoma. Patient is subsequently status post colon resection with colectomy. 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 Hall 04/24 -History of acute gangrenous cholecystitis Constipation - improved -on po pain meds -Colace 100 mg po bid -Miralax 17 gm po x 1 now Hypotension-improved - s/p 1 unit RBC 05/22 CAD, Recent NSTEMI s/p CABG x3 by Dr. Carlin no c/o chest pain New onset Atrial fibrillation- previous admission=- at [place] -currently SR on telemetry, rate controlled -was on Amiodarone. Lorpessor and Cardizem previously at [place] -not restarted on Amiodarone (plan was to wean him off this anyway) and Cardizem -Metoprolol Tartrate 3.125 mg po bid- increase as BP tolerates Chronic CHF- + Leg edema -Continue aspirin 81 mg daily -EF preserved, not decompensated. EF 60-65%, trace to mild MR. DM type 2 Follow blood sugars- good readings Insulin sliding scale Diabetic diet - review last admission- was on Metformin - restart Metformin 500 mg po daily- po appetite improved Chronic DVT right IJ site conservative management Hyperlipidemia Continue present treatment Follow as an outpatient Continue atorvastatin 20 mg hs Obesity hx of gastric bypass surgery Continue dietary changes once diet resumed Weight loss management Ultimately exercise recommended though not today DVT prophylaxis SCDs PT./OT daily- very motivated hoping for DC to [place]- accepted by [facility] - waiting for authorization if cleared with [facility] Progress Note: Quality VTE Deep Vein Thrombosis/Pulmonary Embolism Present on Admission: No
[2018-05-29] MEDS: Ferrous Sulfate 325 MG Tablet PO SCH ×2 (12:40→17:35)
--- NOTE | 2018-05-29 16:57 | P.PNGS ---
Subjective Interval history: Resting in bed No issues Awaiting bed at [place] Physical Exam Vital signs: Vital Signs 05/28/18 20:00 05/29/18 00:00 05/29/18 08:00 Temperature 98.3 F 98 F 98.6 F Pulse Rate 76 70 82 Respiratory Rate 16 18 17 Blood Pressure 115/59 L 113/66 118/69 Pulse Oximetry 94 L 95 94 L 05/29/18 12:00 Temperature 98.2 F Pulse Rate 64 Respiratory Rate 17 Blood Pressure 116/56 L Pulse Oximetry 97 Intake & Output 05/28/18 05/29/18 05/29/18 18:59 06:59 18:59 Intake Total 220 / 220 720 / 720 Balance 220 / 220 720 / 720 Weight 103.4 kg Intake: Oral 220 / 220 720 / 720 Other: # Voids 3 # Urine Diapers 4 Date of Last Bowel Movement 05/28/18 05/28/18 05/29/18 # Bowel Movements 2 # Incontinent Bowel Movements 5 Narrative: Alert and awake Abd: soft; LEFT sided incision c/d/i with kamlesh; Umbilical dressing in place - Urinary Catheter Management Indwelling Urethral Catheter Cath placed during this visit: yes, but has since been removed by the nurse Urethral indwelling: No Reason for continuing: Hourly intake/output Insertion date: 05/18/18 Insertion time: 07:00 Removal date: 05/23/18 Results - Labs 05/30/18 10:00 05/30/18 10:00 - Imaging Imaging: ITS Impressions Chest X-Ray 05/19/18 00:00 CONCLUSION: Right lung base opacity is present may be due to a combination of consolidation and or pleural effusion. Worsening left lung base opacity most likely worsening pleural effusion and left lung base consolidation. Assessment and Plan - Assessment (1) Colonic mass Code(s): K63.9 - Disease of intestine, unspecified Status: Acute Plan: 67 year old male s/p Laparoscopic assisted descending colectomy -Tolerating regular diet -PT eval -IS -DC to [place] once bed available Wound clean without erythema Steri strips with small amount drainage lateral portion of incision The exam, history, and the medical decision-making described in the above note were completed with the assistance of the mid-level provider. I reviewed and agree with the findings presented. I attest that I had a [id number] encounter with the patient on the same day, and personally performed and documented my assessment and findings in the medical record.
[2018-05-30] MEDS: Senna/Docusate Sodium 8.6/50 MG Tablet PO SCH ×2 (08:09→20:04)
[2018-05-30] MEDS: Metoprolol Tartrate 25 MG Tablet PO SCH ×2 (08:09→20:04)
[2018-05-30] MEDS: Heparin Central Flush 100 UNIT/ML 5 ML Vial IV.FLUSH SCH (08:09)
[2018-05-30] MEDS: Metoclopramide 10 MG Tablet PO SCH ×4 (08:10→20:04)
--- NOTE | 2018-05-30 10:07 | P.PNIM ---
Subjective Interval history: Follow-up visit laparoscopic assisted descending colectomy, acute anemia, hypotension Patient sitting up in a recliner chair. He was just told by case management was not approved for [facility]. A list of SNF's will be provided to patient for him to choose alternative option. Patient reports intermittent abdominal pain. No nausea, vomiting, diarrhea. Denies fevers or chills. Patient also denies feeling dizzy or lightheaded. Tolerating p.o. intake. Physical Exam Vital signs: Vital Signs 05/29/18 12:00 05/29/18 20:00 05/29/18 23:40 Temperature 98.2 F 97.9 F 98.2 F Pulse Rate 64 103 H 81 Respiratory Rate 17 16 17 Blood Pressure 116/56 L 143/66 H 117/60 Pulse Oximetry 97 97 95 05/30/18 08:00 Temperature 97.6 F Pulse Rate 77 Respiratory Rate 16 Blood Pressure 111/56 L Pulse Oximetry 94 L Intake & Output 05/29/18 05/30/18 05/30/18 18:59 06:59 18:59 Intake Total 500 / 500 Balance 500 / 500 Weight 103.4 kg Intake: Oral 500 / 500 Other: # Voids 3 Date of Last Bowel Movement 05/29/18 05/29/18 05/30/18 # Bowel Movements 2 # Incontinent Bowel Movements 5 Narrative: GENERAL: well developed, well nourished, no acute distress SKIN: Warm and dry HEAD: Normocephalic, atraumatic EYES: No scleral icterus. No injection or drainage. NECK: Supple, trachea midline. No JVD or lymphadenopathy. CARDIOVASCULAR: Regular rate and rhythm without murmurs, gallops, or rubs. RESPIRATORY: Breath sounds equal bilaterally. No accessory muscle use. GASTROINTESTINAL: Abdomen soft, non-tender, nondistended. Left sided abdominal incision site with kamlesh. Dressing clean, dry and intact. Umbilical dressing in place. MUSCULOSKELETAL: No cyanosis, or edema. Urinary Catheter Management Indwelling Urethral Catheter: Cath placed during this visit: yes, but has since been removed by the nurse Urethral indwelling: No Reason for continuing: Hourly intake/output Insertion date: 05/18/18 Insertion time: 07:00 Removal date: 05/23/18 Results Labs CBC & Chem 7: 05/25/18 07:00 01/10/19 05:55 Assessment and Plan (1) Colonic mass: Code(s): K63.9 - Disease of intestine, unspecified Status: Acute Plan 67 year old male with complicated course since initial admission for complaint of abdominal pain, N/V. Found with positive trop, S/P cardiac cath with CAD. Required CABG. Also diagnosed with sepsis, acute cholecystitis. Initially treated with burt tube and underwent lap burt. Was discharged to [facility] on and developed GI bleed and required transfer back to main hospital. S/P colonoscopy with findings of circumferential mass, path showing tubulous villous adenoma. Patient is subsequently status post colon resection with colectomy. Circumferential mass proximal sigmoid/descending colon, near obstructing -noted during colonscopy 05/12/18 -biopsy taken, pathology -> Invasive well differentiated adenocarcinoma on pathology -General surgery consulted and following -s/p Laparoscopic assisted/ descending colectomy 05/18 -tolerating regular diet -f/u outpatient with Oncology, no further treatment required at present time Acute anemia- 1 unit RBC 05/22 -repeat CBC pending S/P lap cholecystectomy by Dr. Hall 04/24 -History of acute gangrenous cholecystitis Constipation - improved -on po pain meds -Colace 100 mg po bid -Miralax 17 gm po x 1 now Hypotension-improved - s/p 1 unit RBC 05/22 CAD, Recent NSTEMI s/p CABG x3 by Dr. Carlin no c/o chest pain New onset Atrial fibrillation- previous admission=- at [place] -currently SR on telemetry, rate controlled -continue Metoprolol Tartrate 3.125 mg po bid- increase as BP tolerates Chronic CHF- + Leg edema -Continue aspirin 81 mg daily -EF preserved, not decompensated. EF 60-65%, trace to mild MR. DM type 2 Follow blood sugars- good readings Insulin sliding scale Diabetic diet - review last admission- was on Metformin - restart Metformin 500 mg po daily- po appetite improved Chronic DVT right IJ site conservative management Hyperlipidemia Continue present treatment Follow as an outpatient Continue atorvastatin 20 mg hs Obesity hx of gastric bypass surgery Continue dietary changes once diet resumed Weight loss management Ultimately exercise recommended though not today MDM: self Code: Full GI ppx: PPI DVT ppx: Heparin subcu Discussed with: patient, RN, CM Dispo: patient to choose SNF and CM to obtain auth PT/OT daily- very motivated Progress Note: Quality VTE Deep Vein Thrombosis/Pulmonary Embolism Present on Admission: No
[2018-05-30 10:42] LABS: Baso # (Auto) 0.1 th/mm3 (0.0-0.2); Baso % (Auto) 1.3 % (0.0-2.0); Eos # (Auto) 0.3 th/mm3 (0.0-0.4); Eos % (Auto) 3.6 % (0.0-4.0); Hematocrit 26.2 % (39.0-51.0); Hemoglobin 8.7 gm/dL (13.0-17.0); Lymph # (Auto) 1.7 th/mm3 (1.0-4.8); Lymph % (Auto) 18.2 % (9.0-44.0); Mean Corpuscular Volume 84.8 fL (80.0-100.0); Mean Platelet Volume 8.2 fL (7.0-11.0); Mono # (Auto) 0.7 th/mm3 (0.0-0.9); Mono % (Auto) 8.1 % (0.0-8.0); Neut # (Auto) 6.3 th/mm3 (1.8-7.7); Neut % (Auto) 68.8 % (16.0-70.0); Platelet Count 445 th/mm3 (150-450); Red Blood Count 3.09 mil/mm3 (4.50-5.90); White Blood Count 9.2 th/mm3 (4.0-11.0)
[2018-05-30 11:06] LABS: Anion Gap 7 meq/L (5-15); Blood Urea Nitrogen 8 mg/dL (7-18); Calcium 7.7 mg/dL (8.5-10.1); Chloride 107 meq/L (98-107); Glomerular Filtration Rate Greater Than 89 mL/min (>89); Glucose,Random 140 mg/dL (74-106); Potassium 3.4 meq/L (3.5-5.1); Sodium 143 meq/L (136-145)
[2018-05-30] MEDS: Ferrous Sulfate 325 MG Tablet PO SCH ×2 (13:09→17:21)
--- NOTE | 2018-05-30 13:37 | P.DS ---
Date of admission: 05/18/18 10:58 Primary care physician: UNKNOWN Attending physician on discharge: Tyler Hall Anticipated date of discharge: 05/30/18 Brief History from admission: Patient is a morbidly obese male who had previously undergone cholecystectomy in April for acute cholecystitis. He also underwent coronary artery bypass grafting in March for three-vessel disease. Patient is admitted at this time for laparoscopic-assisted ascending colectomy for a lesion that was found by colonoscopy with persistent anemia. DS: Diagnosis - Discharge Diagnosis (1) Colonic mass Status: Acute DS: Medications - Discharge Medications Prescriptions: hydrocodone-acetaminophen 1 tab PO Q4H PRN #20 tab PRN Reason: acute post op pain exception DS: Summary Hospital Course: This is a 67 year old male s/p Laparoscopic assisted descending colectomy. The patient's diet was advanced as tolerated. His pain was controlled using oral pain medications. His hemoglobin is stable on DC. He will follow up in the office in about a month. - Time Spent with Patient Total time spent providing and/or coordinating discharge services: Less than 30 minutes - Quality: VTE Deep Vein Thrombosis/Pulmonary Embolism Present on Admission: No Exam Vital signs: Vital Signs 05/29/18 20:00 05/29/18 23:40 05/30/18 08:00 Temperature 97.9 F 98.2 F 97.6 F Pulse Rate 103 H 81 77 Respiratory Rate 16 17 16 Blood Pressure 143/66 H 117/60 111/56 L Pulse Oximetry 97 95 94 L 05/30/18 12:00 Temperature 97.8 F Pulse Rate 67 Respiratory Rate 19 Blood Pressure 105/58 L Pulse Oximetry 97 Intake & Output 05/29/18 05/30/18 05/30/18 18:59 06:59 18:59 Intake Total 500 / 500 Balance 500 / 500 Weight 103.4 kg Intake: Oral 500 / 500 Other: # Voids 3 Date of Last Bowel Movement 05/29/18 05/29/18 05/30/18 # Bowel Movements 2 # Incontinent Bowel Movements 5 Narrative: Alert and awake Abd: soft; umbilical dressing in place; LEFT sided incision--- Crane removed-- -Steri Strips applied Results Procedures completed during hospitalization: 67 year old male s/p Laparoscopic assisted descending colectomy Completed studies during hospitalization: Pending at discharge 05/18/18 07:30 Surgical [PTH] Routine Labs on day of discharge: Labs from last 24 hours 05/30/18 05/30/18 05/29/18 10:00 10:00 20:03 WBC 9.2 RBC 3.09 L Hgb 8.7 L Hct 26.2 L MCV 84.8 MCH 28.0 MCHC 33.0 RDW 17.0 Plt Count 445 D MPV 8.2 Neut % (Auto) 68.8 Lymph % (Auto) 18.2 [place] % (Auto) 8.1 H Eos % (Auto) 3.6 Baso % (Auto) 1.3 Neut # (Auto) 6.3 Lymph # (Auto) 1.7 [place] # (Auto) 0.7 Eos # (Auto) 0.3 Baso # (Auto) 0.1 WBC Differential . Differential Comment Auto diff final Sodium 143 Potassium 3.4 L Chloride 107 Carbon Dioxide 29.0 Anion Gap 7 BUN 8 Creatinine 0.64 Estimated GFR Greater than 89 POC Glucose 163 H Random Glucose 140 H Calcium 7.7 L - Impressions ITS Impressions Chest X-Ray 05/19/18 00:00 CONCLUSION: Right lung base opacity is present may be due to a combination of consolidation and or pleural effusion. Worsening left lung base opacity most likely worsening pleural effusion and left lung base consolidation. Discharge Plan - Discharge Disposition Patient Disposition: Discharge to SNF - Discharge Condition Condition: Good - Discharge Order Discharge Orders: Discharge Order (Routine); Ordered 05/26/18 Ordered By: Glenna Damian - Discharge Details Anticipated Discharge Date: 05/30/18 - Physicians Team Primary Care Provider: UNKNOWN, Attending Provider: Tyler Hall Other Providers: Christiano Champagne MD ; Eric Rivera MD ; Lucero Downs DO ; [facility] ; [facility] - Rxs /Orders / Referrals /Forms Prescriptions: New hydrocodone-acetaminophen 5-325 mg Tablet 1 tab PO Q4H PRN (Reason: acute post op pain exception ) Qty: 20 RF: 0 Continue acetaminophen 325 mg Tablet 650 mg PO Q4H PRN (Reason: Temp > 100.4) RF: 0 acidophilus-sporogenes [Acidophilus Ex Str (L. sporog)] 35 million- 25 million cell Tablet 1 tab PO TID RF: 0 amiodarone 200 mg Tablet 200 mg PO DAILY RF: 0 aspirin 81 mg Tablet,Delayed Release (Dr/Ec) 81 mg PO DAILY RF: 0 atorvastatin 20 mg Tablet 20 mg PO DAILY RF: 0 clotrimazole 1 % Cream 1 applicatio Topical TID RF: 0 cyanocobalamin (vitamin B-12) [Vitamin B-12] 1,000 mcg Tablet 1,000 mcg PO DAILY RF: 0 diltiazem HCl 120 mg Capsule,Extended Release 24hr 120 mg PO DAILY RF: 0 ferrous sulfate [FeroSul] 325 mg (65 mg iron) Tablet 325 mg PO BID RF: 0 folic acid 1 mg Tablet 1 mg PO DAILY RF: 0 furosemide 20 mg Tablet 20 mg PO DAILY RF: 0 insulin aspart U-100 [Novolog U-100 Insulin aspart] 100 unit/mL Solution 0 unit subcut ACHS RF: 0 ipratropium-albuterol 0.5 mg-3 mg(2.5 mg base)/3 mL Solution For Nebulization 1 amp NEB Q2HR NEB PRN (Reason: SOB/WHEEZING) RF: 0 metformin [Glucophage] 500 mg Tablet 1,000 mg PO BIDPC RF: 0 metoprolol tartrate 25 mg Tablet 12.5 mg PO BID RF: 0 vgqrnpky-lgmq-GX-calcium-mins [Thera M Plus (ferrous fumarat)] 9 mg iron-400 mcg Tablet 1 tab PO DAILY RF: 0 multivitamin with folic acid [Thera] 400 mcg Tablet 1 tab PO DAILY RF: 0 ondansetron 4 mg Tablet,Disintegrating 4 mg PO Q4H PRN (Reason: nausea/vomiting) RF: 0 pantoprazole [Protonix] 40 mg Tablet,Delayed Release (Dr/Ec) 40 mg PO BID Qty: 60 RF: 0 potassium chloride 8 mEq Capsule, Extended Release 8 meq PO DAILY RF: 0 sennosides-docusate sodium [Senna Plus] 8.6-50 mg Tablet 1 tab PO BID RF: 0 Discontinued metoclopramide HCl 10 mg Tablet 5 mg PO ACHS RF: 0 Referrals: UNKNOWN, [Primary Care Provider] - See Instructions
[2018-05-31] MEDS: Heparin Central Flush 100 UNIT/ML 5 ML Vial IV.FLUSH SCH (09:54)
[2018-05-31] MEDS: Metoprolol Tartrate 25 MG Tablet PO SCH (09:55)
[2018-05-31] MEDS: Senna/Docusate Sodium 8.6/50 MG Tablet PO SCH (09:55)
[2018-05-31] MEDS: Metoclopramide 10 MG Tablet PO SCH ×3 (10:02→16:32)
[2018-05-31] MEDS: Ferrous Sulfate 325 MG Tablet PO SCH ×2 (12:30→16:32)
--- NOTE | 2018-05-31 14:26 | P.PNIM ---
Subjective Interval history: Follow-up visit laparoscopic assisted descending colectomy, acute anemia, hypotension Patient is sitting in a recliner chair. He states he is ready to go to rehab. Patient reports itching at colectomy site status post staple removal. No other complaints voiced. Physical Exam Vital signs: Vital Signs 05/30/18 20:00 05/31/18 00:00 05/31/18 08:00 Temperature 98.6 F 98.2 F 97.4 F L Pulse Rate 86 75 68 Respiratory Rate 18 18 18 Blood Pressure 106/57 L 110/62 109/54 L Pulse Oximetry 96 94 L 96 05/31/18 12:00 Temperature 97.5 F L Pulse Rate 66 Respiratory Rate 16 Blood Pressure 119/64 Pulse Oximetry 94 L Intake & Output 05/30/18 05/31/18 05/31/18 18:59 06:59 18:59 Intake Total 500 / 500 Output Total 50 / 50 650 / 650 Balance 450 / 450 -650 / -650 Weight 100.1 kg Intake: Oral 500 / 500 Output: Urine 650 / 650 Emesis 50 / 50 Other: # Voids 3 Date of Last Bowel Movement 05/30/18 05/30/18 05/30/18 # Bowel Movements 1 # Emeses 1 Narrative: GENERAL: well developed, well nourished, no acute distress SKIN: Warm and dry HEAD: Normocephalic, atraumatic EYES: No scleral icterus. No injection or drainage. NECK: Supple, trachea midline. No JVD or lymphadenopathy. CARDIOVASCULAR: Regular rate and rhythm without murmurs, gallops, or rubs. RESPIRATORY: Breath sounds equal bilaterally. No accessory muscle use. GASTROINTESTINAL: Abdomen soft, non-tender, nondistended. Left sided abdominal incision site, kamlesh removed and steri strips in place. MUSCULOSKELETAL: No cyanosis, or edema. Urinary Catheter Management Indwelling Urethral Catheter: Cath placed during this visit: yes, but has since been removed by the nurse Urethral indwelling: No Reason for continuing: Hourly intake/output Insertion date: 05/18/18 Insertion time: 07:00 Removal date: 05/23/18 Results Labs CBC & Chem 7: 05/30/18 10:00 05/30/18 10:00 Procedures Procedures: 67 year old male s/p Laparoscopic assisted descending colectomy Assessment and Plan (1) Colonic mass: Code(s): K63.9 - Disease of intestine, unspecified Status: Acute Plan 67 year old male with complicated course since initial admission for complaint of abdominal pain, N/V. Found with positive trop, S/P cardiac cath with CAD. Required CABG. Also diagnosed with sepsis, acute cholecystitis. Initially treated with burt tube and underwent lap burt. Was discharged to [facility] on and developed GI bleed and required transfer back to main hospital. S/P colonoscopy with findings of circumferential mass, path showing tubulous villous adenoma. Patient is subsequently status post colon resection with colectomy. 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 Hall 04/24 -History of acute gangrenous cholecystitis Constipation - improved -on po pain meds -Colace 100 mg po bid -Miralax 17 gm po x 1 now Hypotension-improved CAD, Recent NSTEMI s/p CABG x3 by Dr. Carlin no c/o chest pain New onset Atrial fibrillation- previous admission=- at [facility] -currently SR on telemetry, rate controlled -continue Metoprolol Tartrate 3.125 mg po bid- increase as BP tolerates Chronic CHF- + Leg edema -Continue aspirin 81 mg daily -EF preserved, not decompensated. EF 60-65%, trace to mild MR. DM type 2 Follow blood sugars- good readings Insulin sliding scale Diabetic diet - review last admission- was on Metformin - restart Metformin 500 mg po daily- po appetite improved Chronic DVT right IJ site conservative management Hyperlipidemia Continue present treatment Follow as an outpatient Continue atorvastatin 20 mg hs Obesity hx of gastric bypass surgery Continue dietary changes once diet resumed Weight loss management Ultimately exercise recommended though not today MDM: self Code: Full GI ppx: PPI DVT ppx: Heparin subcu Discussed with: patient, RN, CM Dispo: CM working on SNF placement. Thank you for this consult. Patient appears to be medically stable and no changes to existing treatment plan are needed at this time. Hospitalist service will sign off. Please reconsult if there are additional concerns. Progress Note: Quality VTE Deep Vein Thrombosis/Pulmonary Embolism Present on Admission: No
[2018-05-31 20:29] VITALS: BP 133/59; PULSE 81; RESP 19; TEMP 98.9; O2SAT 95
== END 2018-05-31 20:00 | DRG 330 ==
LOC: HSDI 10:58 → N03 20:41 → N07 05-22 19:43
PROVIDERS: ADMIT Surgery Trauma Surgery; ATTEND Surgery Trauma Surgery
PROC: RSCOLON (2018-05-18 13:31)
CPT/HCPCS: 36430; 36569; 71010; 71045; 76937; 80048; 80053; 81001; 82040; 82948; 82962; 85025; 85027; 86850; 86900; 86901; 86923; 87040; 87641; 88307; 88309; 97110; 97116; 97163; 97167; 97530; 97535; C9113; J0131; J0690; J0696; J1170; J1642; J1650; J1756; J1885; J1940; J2250; J2270; J2370; J2405; J2704; J2710; J3010; J3480; J7030; J7050; J7120; P9016; P9045